=== PATIENT | female | born 1930 | race Two or more races ===

== ENCOUNTER 2016-04-15 18:35 | Inpatient (IN) | payer MEDICARE, MEDICAID ==
[~2016-04-15] VITALS: Ht 165.1 cm; Wt 60.3 kg
[2016-04-15 19:08] LABS: BASOPHILS # (AUTO) 0.4 /CMM (0.0-0.2); BASOPHILS % (AUTO) 2.7 % (0.0-2.0); DIFF TOTAL % 100 %; EOSINOPHILS # (AUTO) 0.1 /CMM (0.0-0.7); EOSINOPHILS % (AUTO) 0.6 % (0.0-6.0); HEMATOCRIT 35 % (33-45); HEMOGLOBIN 11.6 g/dL (11.5-14.8); LYMPHOCYTES # (AUTO) 1.7 /CMM (0.8-4.8); LYMPHOCYTES % (AUTO) 10.9 % (20.0-44.0); MEAN CORPUSCULAR HEMOGLOBIN 27 PG (26.0-33.0); MEAN CORPUSCULAR HGB CONC 33 g/dl (31.0-36.0); MEAN CORPUSCULAR VOLUME 82 fL (82-100); MONOCYTES # (AUTO) 1.6 /CMM (0.1-1.30); NEUTROPHILS # (AUTO) 12.2 /CMM (1.8-8.9); NEUTROPHILS % (AUTO) 75.8 % (43.0-81.0); PLATELET COUNT (AUTO) 372 /CMM (150-450); RED BLOOD CELL COUNT(AUTO) 4.27 MIL/uL (4.0-5.2)
[2016-04-15] MEDS ORDERED: DEXAMETHASONE SOD PHOSPHATE 4 MG/ML VIAL ONE (19:17)
[2016-04-15] MEDS ORDERED: IV SET PRIMARY PUMP SET 1 EA INFUS.SET MC ONE ×2 (19:17→22:23)
[2016-04-15 19:20] LABS: CALCIUM, SERUM 8.5 mg/dL (8.5-10.1); CREATININE 0.6 mg/dL (0.6-1.3); POTASSIUM 4.2 mmol/L (3.5-5.1)
[2016-04-15 19:21] LABS: INR 0.92 (0.87-1.13); PROTHROMBIN TIME 9.7 SECS (9.5-12.7)
[2016-04-15 19:26] LABS: ALBUMIN 2.6 g/dL (3.4-5.0); BILIRUBIN,DIRECT 0.1 mg/dL (0.0-0.2); BILIRUBIN,TOTAL 0.5 mg/dL (0.2-1.0); INDIRECT BILIRUBIN 0.4 mg/dL (0.0-1.1); TOTAL PROTEIN, SERUM 6.9 g/dL (6.4-8.2)
[2016-04-15] MEDS ORDERED: LEVETIRACETAM (500MG) 500 MG in IV NS 0.9% 100 ML IV SCH (19:30)
[2016-04-15] MEDS ORDERED: DEXAMETHASONE SOD PHOSPHATE 10 MG/ML VIAL IV ONE (19:30)
[2016-04-15] MEDS ORDERED: ONDANSETRON HCL/PF 4 MG/2 ML VIAL IVP PRN (20:00)
[2016-04-15] MEDS ORDERED: Z GUARD REMEDY 2 OZ OINT TP PRN (20:00)
[2016-04-15] MEDS ORDERED: HYDROCODONE/APAP 5/325MG 1 EACH TABLET PO PRN (20:00)
[2016-04-15] MEDS ORDERED: MAGNESIUM HYDROXIDE 30 ML UDC PO PRN (20:00)
[2016-04-15] MEDS ORDERED: ZOLPIDEM TARTRATE 5 MG TABLET PO PRN (20:00)
[2016-04-15] MEDS ORDERED: ACETAMINOPHEN 325 MG TABLET PO PRN (20:00)
[2016-04-15] MEDS ORDERED: MAG HYDROX/AL HYDROX/SIMETH 30 ML UDC PO PRN (20:00)
[2016-04-15] MEDS ORDERED: IV SET PRIMARY 1 EA INFUS.SET MC ONE (20:52)
[2016-04-15] MEDS ORDERED: IV NS 0.9% 500 ML IV ONE (20:52)
[2016-04-15 21:29] LABS: ADD UA MICROSCOPIC YES; KETONES,URINE Negative (NEGATIVE); LEUKOCYTE ESTERASE ,URINE Trace (NEGATIVE); PH,URINE 5.5 (5.0-8.0)
[2016-04-15] MEDS ORDERED: IV NS 0.9% 500 ML BAG IV ONE (21:30)
[2016-04-15 21:43] LABS: ADD URINE CULTURE NO; MUCUS,URINE Many /LPF (None Seen)
[2016-04-15] MEDS ORDERED: LEVOFLOXACIN 750 MG /D5W 150ML 150 ML IV ONE ×2 (22:00→22:23)
[2016-04-16] VITALS (32 sets, daily range): BP systolic 100–137; BP diastolic 49–94
[2016-04-16] MEDS ORDERED: LACT1CAP57 GT (00:47)
[2016-04-16] MEDS ORDERED: ONDA8TAB2 GT (00:47)
[2016-04-16] MEDS ORDERED: HYDR-4075 GT (00:47)
[2016-04-16] MEDS ORDERED: CITI500C GT (00:47)
[2016-04-16] MEDS ORDERED: INSU100I4 SQ (00:47)
[2016-04-16] MEDS ORDERED: CLON1PAT7 TD (00:47)
[2016-04-16] MEDS ORDERED: NUT.100029 GT (00:47)
[2016-04-16] MEDS ORDERED: ZINC57OI3 TP (00:47)
[2016-04-16] MEDS ORDERED: CARV12.52 GT (00:47)
[2016-04-16] MEDS ORDERED: DIPH60LI2 GT (00:47)
[2016-04-16] MEDS ORDERED: ASCO500T10 GT (00:47)
[2016-04-16] MEDS ORDERED: PANT40TA4 PO (00:47)
[2016-04-16] MEDS ORDERED: DIPH50CA37 GT (00:47)
[2016-04-16] MEDS ORDERED: ACET650T10 GT (00:47)
[2016-04-16] MEDS ORDERED: DEXT1DRO3 OP (00:47)
[2016-04-16] MEDS ORDERED: VITA42.5 TP (00:47)
[2016-04-16] MEDS ORDERED: OMEG10006 GT (00:47)
[2016-04-16] MEDS ORDERED: MULT-24 GT (00:47)
[2016-04-16] MEDS ORDERED: LORA0.5T GT (00:47)
[2016-04-16] MEDS ORDERED: LEVO25TA9 GT (00:47)
[2016-04-16] MEDS ORDERED: NYST30OI TP (00:47)
[2016-04-16] MEDS ORDERED: ALBU2.5V12 NEB (00:47)
[2016-04-16] MEDS ORDERED: IPRA0.2S9 IH (00:47)
[2016-04-16] MEDS ORDERED: VITA-339 GT (00:47)
[2016-04-16] MEDS ORDERED: VALS160T24 PO (00:47)
[2016-04-16] MEDS ORDERED: LEVE500T6 GT (00:47)
[2016-04-16 04:50] LABS: BASOPHILS # (AUTO) 0.1 /CMM (0.0-0.2); BASOPHILS % (AUTO) 0.8 % (0.0-2.0); DIFF TOTAL % 100 %; HEMATOCRIT 34 % (33-45); HEMOGLOBIN 11.3 g/dL (11.5-14.8); LYMPHOCYTES # (AUTO) 1.4 /CMM (0.8-4.8); LYMPHOCYTES % (AUTO) 9.4 % (20.0-44.0); MEAN CORPUSCULAR HEMOGLOBIN 27 PG (26.0-33.0); MEAN CORPUSCULAR HGB CONC 33 g/dl (31.0-36.0); MEAN CORPUSCULAR VOLUME 82 fL (82-100); MONOCYTES % (AUTO) 7.1 % (2.0-12.0); NEUTROPHILS # (AUTO) 12.1 /CMM (1.8-8.9); NEUTROPHILS % (AUTO) 82.7 % (43.0-81.0); PLATELET COUNT (AUTO) 366 /CMM (150-450); RED BLOOD CELL COUNT(AUTO) 4.14 MIL/uL (4.0-5.2); WHITE BLOOD COUNT (AUTO) 14.6 K/uL (4.3-11.0)
[2016-04-16 05:03] LABS: CALCIUM, SERUM 8.5 mg/dL (8.5-10.1); CREATININE 0.5 mg/dL (0.6-1.3); POTASSIUM 4.2 mmol/L (3.5-5.1)
[2016-04-16] MEDS ORDERED: ZOLPIDEM TARTRATE 5 MG TABLET GT PRN (07:29)
[2016-04-16] MEDS ORDERED: MAG HYDROX/AL HYDROX/SIMETH 30 ML UDC GT PRN (07:30)
[2016-04-16] MEDS ORDERED: PANTOPRAZOLE 40 MG TABLET.DR PO SCH (07:30)
[2016-04-16] MEDS ORDERED: HYDROCODONE/APAP 5/325MG 1 EACH TABLET GT PRN (07:30)
[2016-04-16] MEDS ORDERED: MAGNESIUM HYDROXIDE 30 ML UDC GT PRN (07:30)
[2016-04-16] MEDS ORDERED: DEXTROSE 50%-WATER 50 ML DISP.SYRIN IV PRN (08:30)
[2016-04-16] MEDS ORDERED: hydrALAZINE HCL IV 20 MG VIAL IV PRN (08:30)
[2016-04-16] MEDS ORDERED: ALBUTEROL FS 2.5 MG/0.5 ML VIAL.NEB NEB PRN (09:00)
[2016-04-16] MEDS ORDERED: OMEGA 3 FATTY ACIDS GT SCH (09:00)
[2016-04-16] MEDS ORDERED: hydrALAZINE HCL 10 MG TABLET GT PRN (09:00)
[2016-04-16] MEDS ORDERED: GLYTROL 1,000 ML BAG GT PRN (09:00)
[2016-04-16] MEDS ORDERED: CARVEDILOL 12.5 MG TABLET GT SCH (09:00)
[2016-04-16] MEDS ORDERED: CITICOLINE GT SCH (09:00)
[2016-04-16] MEDS ORDERED: VITAMIN D3 GT SCH (09:00)
[2016-04-16] MEDS ORDERED: LORAZEPAM 0.5 MG TABLET GT PRN (09:00)
[2016-04-16] MEDS ORDERED: VITAMIN K2 GT SCH (09:00)
[2016-04-16] MEDS ORDERED: IV SET PRIMARY PUMP SET 1 EA INFUS.SET MC ONE (09:23)
[2016-04-16] MEDS: GLYTROL 1,000 ML BAG GT PRN (09:26)
[2016-04-16] MEDS: LEVETIRACETAM (500MG) 500 MG in IV NS 0.9% 100 ML IV SCH ×2 (09:26→21:34)
[2016-04-16] MEDS: VALSARTAN 80 MG TABLET GT SCH ×2 (09:39→21:09)
[2016-04-16] MEDS: LABETALOL HCL (100MG) 100 MG TABLET GT SCH ×2 (09:39→21:14)
[2016-04-16] MEDS: MULTIVITAMINS,THERAPEUTIC 1 UDTAB TABLET GT SCH (09:39)
[2016-04-16] MEDS: ASCORBIC ACID 500 MG TABLET GT SCH (09:39)
[2016-04-16] MEDS: LACTOBACILLUS RHAMNOSUS GG 1 EACH CAP.SPRINK GT SCH (09:39)
[2016-04-16] MEDS: LEVOTHYROXINE SODIUM 25 MCG TABLET GT SCH (09:39)
[2016-04-16] MEDS ORDERED: diphenhydrAMINE HCL 50 MG/ML VIAL IV PRN (10:00)
[2016-04-16] MEDS: VITAMINS A AND D 56.7 GM TUBE TP SCH (10:37)
[2016-04-16] MEDS: POLYVINYL ALCOHOL 15 ML BOTTLE EACHEYE SCH (10:37)
[2016-04-16] MEDS: NYSTATIN OINT 100000 UNIT/G 15 GM TUBE TP SCH ×2 (10:37→16:39)
[2016-04-16] MEDS: BLOOD SUGAR DIAGNOSTIC 1 EACH STRIP IN SCH ×3 (12:05→23:46)
[2016-04-16] MEDS: INSULIN REGULAR, HUMAN 100 UNIT/ML 3 ML VIAL SQ PRN ×2 (12:13→23:46)
[2016-04-16] MEDS: ALBUTEROL FS 2.5 MG/0.5 ML VIAL.NEB NEB SCH ×2 (13:30→20:12)
[2016-04-16] MEDS: IPRATROPIUM NEB FS 0.5 MG/2.5 ML AMPUL.NEB IH SCH ×2 (13:30→20:12)
[2016-04-16] MEDS: ACETAMINOPHEN 650 MG/20.3 ML UDC GT PRN (20:18)
[2016-04-17] VITALS (39 sets, daily range): BP systolic 81–173; BP diastolic 40–103
[2016-04-17] MEDS: IPRATROPIUM NEB FS 0.5 MG/2.5 ML AMPUL.NEB IH SCH ×4 (01:42→19:46)
[2016-04-17] MEDS: ALBUTEROL FS 2.5 MG/0.5 ML VIAL.NEB NEB SCH ×4 (01:42→19:46)
[2016-04-17 04:33] LABS: BASOPHILS % (AUTO) 0.1 % (0.0-2.0); DIFF TOTAL % 100 %; EOSINOPHILS % (AUTO) 0.4 % (0.0-6.0); HEMATOCRIT 35 % (33-45); HEMOGLOBIN 11.4 g/dL (11.5-14.8); LYMPHOCYTES # (AUTO) 1.7 /CMM (0.8-4.8); LYMPHOCYTES % (AUTO) 16.4 % (20.0-44.0); MEAN CORPUSCULAR HEMOGLOBIN 27 PG (26.0-33.0); MEAN CORPUSCULAR HGB CONC 33 g/dl (31.0-36.0); MEAN CORPUSCULAR VOLUME 83 fL (82-100); MONOCYTES # (AUTO) 1.4 /CMM (0.1-1.30); MONOCYTES % (AUTO) 13.8 % (2.0-12.0); NEUTROPHILS % (AUTO) 69.3 % (43.0-81.0); PLATELET COUNT (AUTO) 359 /CMM (150-450); RED BLOOD CELL COUNT(AUTO) 4.22 MIL/uL (4.0-5.2); WHITE BLOOD COUNT (AUTO) 10.1 K/uL (4.3-11.0)
[2016-04-17 04:55] LABS: CALCIUM, SERUM 8.4 mg/dL (8.5-10.1); CREATININE 0.5 mg/dL (0.6-1.3); POTASSIUM 3.8 mmol/L (3.5-5.1)
[2016-04-17] MEDS: BLOOD SUGAR DIAGNOSTIC 1 EACH STRIP IN SCH ×3 (05:37→17:21)
[2016-04-17] MEDS: LEVOTHYROXINE SODIUM 25 MCG TABLET GT SCH (05:37)
[2016-04-17] MEDS: INSULIN REGULAR, HUMAN 100 UNIT/ML 3 ML VIAL SQ PRN ×2 (05:37→11:14)
[2016-04-17] MEDS: PANTOPRAZOLE 40 MG/PACK PACK GT SCH (08:04)
[2016-04-17] MEDS: ACETAMINOPHEN 650 MG/20.3 ML UDC GT PRN ×2 (08:04→18:16)
[2016-04-17] MEDS: LABETALOL HCL (100MG) 100 MG TABLET GT SCH ×2 (08:05→21:00)
[2016-04-17] MEDS: MULTIVITAMINS,THERAPEUTIC 1 UDTAB TABLET GT SCH (08:05)
[2016-04-17] MEDS: LACTOBACILLUS RHAMNOSUS GG 1 EACH CAP.SPRINK GT SCH (08:05)
[2016-04-17] MEDS: VALSARTAN 80 MG TABLET GT SCH ×2 (08:05→21:00)
[2016-04-17] MEDS: ASCORBIC ACID 500 MG TABLET GT SCH (08:05)
[2016-04-17] MEDS: POLYVINYL ALCOHOL 15 ML BOTTLE EACHEYE SCH (08:06)
[2016-04-17] MEDS: NYSTATIN OINT 100000 UNIT/G 15 GM TUBE TP SCH ×2 (08:06→17:11)
[2016-04-17] MEDS: VITAMINS A AND D 56.7 GM TUBE TP SCH (08:06)
[2016-04-17] MEDS: LEVETIRACETAM (500MG) 500 MG in IV NS 0.9% 100 ML IV SCH ×2 (10:14→21:24)
[2016-04-17 13:12] LABS: ABG BASE EXCESS 6.6 mmol/L; ABG HCO3 30.5 mmol/L; ABG PH 7.489 (7.350-7.450); ABG PO2 154.3 mmHg (75.0-100.0); ABG TOTAL HEMOGLOBIN 12.2 G/dL (12.0-16.0); ALLEN TEST Pass; AaDO2 47.6 mmHg; O2Hb 97.5 % (94.0-97.0)
[2016-04-17] MEDS: GLYTROL 1,000 ML BAG GT PRN (13:27)
[2016-04-17] MEDS: DOCUSATE SODIUM LIQ 100 MG/10 ML UDC NG SCH (13:27)
[2016-04-17] MEDS ORDERED: IV SET PRIMARY PUMP SET 1 EA INFUS.SET MC ONE (14:11)
[2016-04-17] MEDS ORDERED: IV NS 0.9% 250 ML IV ONE ×2 (14:11→22:06)
[2016-04-17] MEDS ORDERED: SECONDARY IV SET 1 EA INFUS.SET MC ONE (14:11)
[2016-04-17] MEDS: CEFTRIAXONE 1 G in IV D5W 50 ML IV SCH (14:16)
[2016-04-17] MEDS: COD LIVER OIL/ZINC OXIDE 120 GM TUBE TP SCH (17:06)
[2016-04-17] MEDS ORDERED: IV NS 0.9% 1,000 ML ONE (20:32)
[2016-04-17] MEDS: IV NS 0.9% 1,000 ML IV PRN ×2 (20:32→20:35)
[2016-04-17] MEDS ORDERED: BISACODYL SUPP (10 MG) 10 MG/SUPP.RECT SUPP.RECT RC ONE ×2 (21:00→22:33)
[2016-04-17] MEDS ORDERED: IV NS 0.9% 1,000 ML BAG IV PRN (21:00)
[2016-04-17] MEDS ORDERED: NOREPINEPHRINE 16 MG in IV D5W 500 ML IV PRN (21:00)
[2016-04-18] VITALS (41 sets, daily range): BP systolic 56–147; BP diastolic 39–104
[2016-04-18] MEDS: ALBUTEROL FS 2.5 MG/0.5 ML VIAL.NEB NEB SCH ×4 (01:14→19:38)
[2016-04-18] MEDS: IPRATROPIUM NEB FS 0.5 MG/2.5 ML AMPUL.NEB IH SCH ×4 (01:14→19:38)
[2016-04-18] MEDS: BLOOD SUGAR DIAGNOSTIC 1 EACH STRIP IN SCH ×4 (01:20→17:43)
[2016-04-18] MEDS: LEVOTHYROXINE SODIUM 25 MCG TABLET GT SCH (06:41)
[2016-04-18] MEDS: DOCUSATE SODIUM LIQ 100 MG/10 ML UDC NG SCH (08:44)
[2016-04-18] MEDS: NYSTATIN OINT 100000 UNIT/G 15 GM TUBE TP SCH ×2 (08:44→17:11)
[2016-04-18] MEDS: VALSARTAN 80 MG TABLET GT SCH ×2 (08:46→21:19)
[2016-04-18] MEDS: POLYVINYL ALCOHOL 15 ML BOTTLE EACHEYE SCH (08:48)
[2016-04-18] MEDS: COD LIVER OIL/ZINC OXIDE 120 GM TUBE TP SCH (08:50)
[2016-04-18] MEDS: ASCORBIC ACID 500 MG TABLET GT SCH (08:50)
[2016-04-18] MEDS: VITAMINS A AND D 56.7 GM TUBE TP SCH (08:50)
[2016-04-18] MEDS: LABETALOL HCL (100MG) 100 MG TABLET GT SCH ×2 (08:52→21:18)
[2016-04-18] MEDS: LACTOBACILLUS RHAMNOSUS GG 1 EACH CAP.SPRINK GT SCH (08:55)
[2016-04-18] MEDS: MULTIVITAMINS,THERAPEUTIC 1 UDTAB TABLET GT SCH (09:00)
[2016-04-18] MEDS: LEVETIRACETAM (500MG) 500 MG in IV NS 0.9% 100 ML IV SCH ×2 (09:01→21:18)
[2016-04-18] MEDS: PANTOPRAZOLE 40 MG/PACK PACK GT SCH (09:03)
[2016-04-18 10:33] LABS: BASOPHILS % (AUTO) 0.4 % (0.0-2.0); DIFF TOTAL % 100 %; EOSINOPHILS % (AUTO) 0.2 % (0.0-6.0); HEMATOCRIT 34 % (33-45); HEMOGLOBIN 11.3 g/dL (11.5-14.8); LYMPHOCYTES # (AUTO) 1.4 /CMM (0.8-4.8); LYMPHOCYTES % (AUTO) 14.7 % (20.0-44.0); MEAN CORPUSCULAR HEMOGLOBIN 27 PG (26.0-33.0); MEAN CORPUSCULAR HGB CONC 33 g/dl (31.0-36.0); MEAN CORPUSCULAR VOLUME 82 fL (82-100); MONOCYTES # (AUTO) 0.8 /CMM (0.1-1.30); MONOCYTES % (AUTO) 8.2 % (2.0-12.0); NEUTROPHILS # (AUTO) 7.3 /CMM (1.8-8.9); NEUTROPHILS % (AUTO) 76.5 % (43.0-81.0); PLATELET COUNT (AUTO) 401 /CMM (150-450); RED BLOOD CELL COUNT(AUTO) 4.14 MIL/uL (4.0-5.2); WHITE BLOOD COUNT (AUTO) 9.6 K/uL (4.3-11.0)
[2016-04-18 10:34] LABS: CREATININE 0.5 mg/dL (0.6-1.3); POTASSIUM 3.4 mmol/L (3.5-5.1)
[2016-04-18] MEDS: INSULIN REGULAR, HUMAN 100 UNIT/ML 3 ML VIAL SQ PRN (12:22)
[2016-04-18] MEDS: CEFTRIAXONE 1 G in IV D5W 50 ML IV SCH (12:52)
[2016-04-18] MEDS ORDERED: POTASSIUM CHLORIDE 20 MEQ POWDER PACKET GT SCH (15:00)
[2016-04-18] MEDS ORDERED: IV NS 0.9% 250 ML IV ONE (16:31)
[2016-04-18] MEDS ORDERED: IV NS 0.9% 250 ML IV PRN (17:00)
[2016-04-18] MEDS: CEFEPIME 1 GM in IV D5W 50 ML IV SCH (17:12)
[2016-04-18] MEDS: diphenhydrAMINE HCL 50 MG/ML VIAL IV PRN (18:56)
[2016-04-18] MEDS: NYSTATIN (PYXIS) 500,000 UNIT/5 ML ORAL.SUSP PO SCH (19:55)
[2016-04-19] VITALS (39 sets, daily range): BP systolic 101–157; BP diastolic 56–92
[2016-04-19] MEDS: BLOOD SUGAR DIAGNOSTIC 1 EACH STRIP IN SCH ×4 (00:37→17:26)
[2016-04-19] MEDS: ALBUTEROL FS 2.5 MG/0.5 ML VIAL.NEB NEB SCH ×4 (01:33→19:33)
[2016-04-19] MEDS: IPRATROPIUM NEB FS 0.5 MG/2.5 ML AMPUL.NEB IH SCH ×4 (01:33→19:33)
[2016-04-19] MEDS: GLYTROL 1,000 ML BAG GT PRN (03:58)
[2016-04-19 05:13] LABS: CALCIUM, SERUM 7.9 mg/dL (8.5-10.1); CREATININE 0.5 mg/dL (0.6-1.3)
[2016-04-19] MEDS: CEFEPIME 1 GM in IV D5W 50 ML IV SCH ×2 (05:29→16:26)
[2016-04-19] MEDS: LEVOTHYROXINE SODIUM 25 MCG TABLET GT SCH (05:32)
[2016-04-19 05:35] LABS: POTASSIUM 2.6 mmol/L (3.5-5.1)
[2016-04-19] MEDS ORDERED: POTASSIUM CL. PREMIX PERIPHER. 50 ML ONE (05:56)
[2016-04-19] MEDS ORDERED: IV SET PRIMARY PUMP SET 1 EA INFUS.SET MC ONE (05:56)
[2016-04-19] MEDS: POTASSIUM CL. PREMIX PERIPHER. 50 ML IV SCH ×5 (06:04→12:10)
[2016-04-19] MEDS: INSULIN REGULAR, HUMAN 100 UNIT/ML 3 ML VIAL SQ PRN ×2 (06:32→17:25)
[2016-04-19] MEDS: DOCUSATE SODIUM LIQ 100 MG/10 ML UDC NG SCH (08:03)
[2016-04-19] MEDS: VALSARTAN 80 MG TABLET GT SCH ×2 (08:03→21:00)
[2016-04-19] MEDS: LEVETIRACETAM (500MG) 500 MG in IV NS 0.9% 100 ML IV SCH (08:03)
[2016-04-19] MEDS: PANTOPRAZOLE 40 MG/PACK PACK GT SCH (08:03)
[2016-04-19] MEDS: LACTOBACILLUS RHAMNOSUS GG 1 EACH CAP.SPRINK GT SCH (08:03)
[2016-04-19] MEDS: NYSTATIN (PYXIS) 500,000 UNIT/5 ML ORAL.SUSP PO SCH ×3 (08:03→16:26)
[2016-04-19] MEDS: MULTIVITAMINS,THERAPEUTIC 1 UDTAB TABLET GT SCH (08:04)
[2016-04-19] MEDS: LABETALOL HCL (100MG) 100 MG TABLET GT SCH ×2 (08:04→21:00)
[2016-04-19] MEDS: ASCORBIC ACID 500 MG TABLET GT SCH (08:04)
[2016-04-19] MEDS: VITAMINS A AND D 56.7 GM TUBE TP SCH (08:05)
[2016-04-19] MEDS: COD LIVER OIL/ZINC OXIDE 120 GM TUBE TP SCH (08:05)
[2016-04-19] MEDS: POLYVINYL ALCOHOL 15 ML BOTTLE EACHEYE SCH (08:05)
[2016-04-19] MEDS: NYSTATIN OINT 100000 UNIT/G 15 GM TUBE TP SCH ×2 (08:06→16:27)
[2016-04-19] MEDS: ACETAMINOPHEN 650 MG/20.3 ML UDC GT PRN (16:26)
[2016-04-19] MEDS: diphenhydrAMINE HCL 50 MG/ML VIAL IV PRN (18:11)
[2016-04-19] MEDS: LEVETIRACETAM SOL (5 ML) 100 MG/ML UDC GT SCH (21:32)
[2016-04-20] VITALS: BP 150/79
[2016-04-20] MEDS: BLOOD SUGAR DIAGNOSTIC 1 EACH STRIP IN SCH ×3 (00:40→11:50)
[2016-04-20] MEDS: IPRATROPIUM NEB FS 0.5 MG/2.5 ML AMPUL.NEB IH SCH ×2 (01:14→07:16)
[2016-04-20] MEDS: ALBUTEROL FS 2.5 MG/0.5 ML VIAL.NEB NEB SCH ×2 (01:14→07:16)
[2016-04-20 04:00] VITALS: BP 128/70
[2016-04-20] MEDS ORDERED: SECONDARY IV SET 1 EA INFUS.SET MC ONE ×2 (05:24→12:40)
[2016-04-20] MEDS ORDERED: IV SET PRIMARY PUMP SET 1 EA INFUS.SET MC ONE ×2 (05:26→12:41)
[2016-04-20] MEDS: LEVOTHYROXINE SODIUM 25 MCG TABLET GT SCH (05:35)
[2016-04-20] MEDS: CEFEPIME 1 GM in IV D5W 50 ML IV SCH (05:35)
[2016-04-20] MEDS: INSULIN REGULAR, HUMAN 100 UNIT/ML 3 ML VIAL SQ PRN (06:17)
[2016-04-20] MEDS: PANTOPRAZOLE 40 MG/PACK PACK GT SCH ×2 (06:30→09:19)
[2016-04-20 06:55] VITALS: BP 116/67
[2016-04-20 06:59] LABS: CALCIUM, SERUM 8.6 mg/dL (8.5-10.1); CREATININE 0.5 mg/dL (0.6-1.3); POTASSIUM 3.3 mmol/L (3.5-5.1)
[2016-04-20 07:05] LABS: BASOPHILS # (AUTO) 0.1 /CMM (0.0-0.2); BASOPHILS % (AUTO) 0.7 % (0.0-2.0); DIFF TOTAL % 100 %; EOSINOPHILS # (AUTO) 0.3 /CMM (0.0-0.7); EOSINOPHILS % (AUTO) 3.4 % (0.0-6.0); HEMATOCRIT 35 % (33-45); HEMOGLOBIN 11.8 g/dL (11.5-14.8); LYMPHOCYTES # (AUTO) 1.5 /CMM (0.8-4.8); LYMPHOCYTES % (AUTO) 15.5 % (20.0-44.0); MEAN CORPUSCULAR HEMOGLOBIN 27 PG (26.0-33.0); MEAN CORPUSCULAR HGB CONC 33 g/dl (31.0-36.0); MEAN CORPUSCULAR VOLUME 82 fL (82-100); MONOCYTES % (AUTO) 10.2 % (2.0-12.0); NEUTROPHILS % (AUTO) 70.2 % (43.0-81.0); PLATELET COUNT (AUTO) 439 /CMM (150-450); RED BLOOD CELL COUNT(AUTO) 4.33 MIL/uL (4.0-5.2)
[2016-04-20 08:00] VITALS: BP 134/80
[2016-04-20] MEDS: MULTIVITAMINS,THERAPEUTIC 1 UDTAB TABLET GT SCH (09:19)
[2016-04-20] MEDS: LABETALOL HCL (100MG) 100 MG TABLET GT SCH (09:19)
[2016-04-20] MEDS: LEVETIRACETAM SOL (5 ML) 100 MG/ML UDC GT SCH (09:19)
[2016-04-20] MEDS: LACTOBACILLUS RHAMNOSUS GG 1 EACH CAP.SPRINK GT SCH (09:19)
[2016-04-20] MEDS: DOCUSATE SODIUM LIQ 100 MG/10 ML UDC NG SCH (09:19)
[2016-04-20] MEDS: ASCORBIC ACID 500 MG TABLET GT SCH (09:19)
[2016-04-20] MEDS: NYSTATIN (PYXIS) 500,000 UNIT/5 ML ORAL.SUSP PO SCH ×2 (09:19→13:09)
[2016-04-20] MEDS: VALSARTAN 80 MG TABLET GT SCH (09:19)
[2016-04-20] MEDS: VITAMINS A AND D 56.7 GM TUBE TP SCH (09:20)
[2016-04-20] MEDS: POLYVINYL ALCOHOL 15 ML BOTTLE EACHEYE SCH (09:20)
[2016-04-20] MEDS: COD LIVER OIL/ZINC OXIDE 120 GM TUBE TP SCH (09:20)
[2016-04-20] MEDS: NYSTATIN OINT 100000 UNIT/G 15 GM TUBE TP SCH (09:21)
[2016-04-20 11:30] VITALS: BP 121/63
[2016-04-20 12:00] VITALS: BP 141/67
[2016-04-20] MEDS ORDERED: POTASSIUM CHLORIDE 20 MEQ POWDER PACKET GT SCH (13:00)
== END 2016-04-20 13:36 | DRG 64 ==
LOC: ER 18:36 → ICU 23:38 → TELE 04-19 22:38 → MED 04-20 13:08
PROVIDERS: ADMIT Family Medicine; ATTEND Family Medicine
PROC: 05H533Z Insertion of Infusion Device into Right Subclavian Vein, Percutaneous Approach (ICD-10-PCS; principal; 2016-04-16)
DX: I60.7 Nontraumatic subarachnoid hemorrhage from unspecified intracranial artery (principal); G93.6 Cerebral edema; G93.40 Encephalopathy, unspecified; N17.0 Acute kidney failure with tubular necrosis; E44.0 Moderate protein-calorie malnutrition; E87.1 Hypo-osmolality and hyponatremia; J96.11 Chronic respiratory failure with hypoxia; N39.0 Urinary tract infection, site not specified; E11.9 Type 2 diabetes mellitus without complications; Z86.73 Personal history of transient ischemic attack (TIA), and cerebral infarction without residual deficits; Z93.0 Tracheostomy status; Z93.1 Gastrostomy status; Z88.8 Allergy status to other drugs, medicaments and biological substances; Z88.6 Allergy status to analgesic agent; Z91.013 Allergy to seafood; R13.10 Dysphagia, unspecified; B96.89 Other specified bacterial agents as the cause of diseases classified elsewhere; E88.09 Other disorders of plasma-protein metabolism, not elsewhere classified; L89.152 Pressure ulcer of sacral region, stage 2; L89.322 Pressure ulcer of left buttock, stage 2; L89.319 Pressure ulcer of right buttock, unspecified stage; R56.9 Unspecified convulsions
CPT/HCPCS: 31720; 36415; 36600; 70450-TC; 71010-TC; 80048-TC; 80061-TC; 80076-TC; 81000-TC; 82542; 82962-TC; 83605-TC; 83735-TC; 84100-TC; 84132-TC; 85025-TC; 85730-TC; 86850-TC; 87040-TC; 87070-TC; 87081-TC; 87086-TC; 87186-TC; 94640-TC; 94664-TC; 97003-TC; 99082-TC; A4217; A4606; A4623; A6402; J0360; J0692; J0696; J1100; J1200; J1815; J1953; J1956; J2405; J3480; J7030; J7040; J7050; J7060; Z7610

== ENCOUNTER 2016-04-17 | Inpatient (IN) | payer MEDICARE, OTHER ==
[~2016-04-17] VITALS: Ht 165.1 cm; Wt 69.9 kg
[~2016-04-17] MED LIST: ACET650T10 GT; ALBU2.5V13 NEB; ASCO500T10 GT; CARV12.52 GT; CITI500C GT; CLON1PAT7 TD; DEXT1DRO3 OP; DIPH50CA37 GT; DIPH60LI2 GT; HYDR-4075 GT; INSU100I4 SQ; IPRA0.2S9 IH; LACT1CAP57 GT; LEVE500T9 GT; LEVO25TA9 GT; LORA0.5T GT; MULT-24 GT; NUT.100029 GT; NYST30OI TP; OMEG10006 GT; ONDA8TAB12 GT; PANT40TA4 PO; VALS160T24 PO; VITA-339 GT; VITA42.5 TP; ZINC57OI3 TP
[2016-04-19] MEDS ORDERED: [UNRECOGNIZED DRUG - OTHER] GT SCH (08:21)
[2016-04-19] MEDS ORDERED: LEVOTHYROXINE SODIUM 25 MCG TABLET GT SCH (08:21)
[2016-04-19] MEDS ORDERED: SUSTAIN GT SCH (08:21)
[2016-04-19] MEDS ORDERED: ACETAMINOPHEN 650 MG/20.3 ML UDC GT PRN (08:21)
[2016-04-19] MEDS ORDERED: ZINC OXIDE TP SCH (08:21)
[2016-04-19] MEDS ORDERED: VALSARTAN 80 MG TABLET GT SCH (08:21)
[2016-04-19] MEDS ORDERED: ZINC OXIDE 30 GM TUBE TP SCH (08:21)
[2016-04-19] MEDS ORDERED: HYDROGEN PEROXIDE 480 ML BOTTLE TP PRN (08:21)
[2016-04-19] MEDS ORDERED: ONDANSETRON HCL 4 MG/5 ML SOLUTION GT PRN (08:21)
[2016-04-19] MEDS ORDERED: CARVEDILOL 12.5 MG TABLET GT SCH (08:21)
[2016-04-19] MEDS ORDERED: LEVETIRACETAM SOL (5 ML) 100 MG/ML UDC GT SCH (08:21)
[2016-04-19] MEDS ORDERED: LORAZEPAM 0.5 MG TABLET GT PRN (08:21)
[2016-04-19] MEDS ORDERED: DEXTROSE 50%-WATER 50 ML DISP.SYRIN IV PRN (08:21)
[2016-04-19] MEDS ORDERED: GLYTROL 1,000 ML BAG GT PRN (08:21)
[2016-04-19] MEDS ORDERED: ASCORBIC ACID 500 MG TABLET GT SCH (08:21)
[2016-04-19] MEDS ORDERED: DIPHENOXYLATE HCL/ATROP SULF 5 ML UDC GT PRN (08:21)
[2016-04-19] MEDS ORDERED: diphenhydrAMINE HCL ELIX 25 MG/10 ML UDC GT PRN (08:21)
[2016-04-19] MEDS ORDERED: NYSTATIN OINT 100000 UNIT/G 15 GM TUBE TP SCH (08:21)
[2016-04-19] MEDS ORDERED: POLYVINYL ALCOHOL 15 ML BOTTLE EACHEYE SCH (08:21)
[2016-04-19] MEDS ORDERED: TUBERCULIN,PURIF.PROT.DERIV. 5 TU/0.1 ML VIAL ID SCH (08:21)
[2016-04-19] MEDS ORDERED: [UNRECOGNIZED DRUG - OTHER] GT SCH (08:21)
[2016-04-19] MEDS ORDERED: IPRATROPIUM NEB FS 0.5 MG/2.5 ML AMPUL.NEB IH PRN (08:21)
[2016-04-19] MEDS ORDERED: IPRATROPIUM NEB FS 0.5 MG/2.5 ML AMPUL.NEB IH SCH (08:21)
[2016-04-19] MEDS ORDERED: BLOOD SUGAR DIAGNOSTIC 1 EACH STRIP IN SCH (08:21)
[2016-04-19] MEDS ORDERED: ALBUTEROL FS 2.5 MG/0.5 ML VIAL.NEB NEB PRN (08:21)
[2016-04-19] MEDS ORDERED: INSULIN ASPART HUMALOG/NOVOLOG 100 UNIT/ML CARTRIDGE SQ PRN (08:21)
[2016-04-19] MEDS ORDERED: VITAMINS A AND D 56.7 GM TUBE TP SCH (08:21)
[2016-04-19] MEDS ORDERED: ZINC OXIDE TP PRN (08:21)
[2016-04-19] MEDS ORDERED: HYDROGEN PEROXIDE 480 ML BOTTLE TP SCH (08:21)
[2016-04-19] MEDS ORDERED: MULTIVITAMINS,THERAGRAN 1 UDTAB TABLET GT SCH (08:21)
[2016-04-19] MEDS ORDERED: HYDROGEL DRESSING 90 GM TUBE TP SCH (08:21)
[2016-04-19] MEDS ORDERED: ALBUTEROL FS 2.5 MG/0.5 ML VIAL.NEB NEB SCH (08:21)
[2016-04-19] MEDS ORDERED: [UNRECOGNIZED DRUG - OTHER] GT SCH (08:21)
[2016-04-19] MEDS ORDERED: LACTOBACILLUS RHAMNOSUS GG 1 EACH CAP.SPRINK GT SCH (08:21)
[2016-04-19] MEDS ORDERED: OMEGA GT SCH (08:21)
[2016-04-19] MEDS ORDERED: CITICOLINE GT SCH (08:21)
[2016-04-19] MEDS ORDERED: PANTOPRAZOLE 40 MG/PACK PACK GT SCH (08:21)
[2016-04-19] MEDS ORDERED: hydrALAZINE HCL 10 MG TABLET GT PRN (08:21)
[2016-04-19] MEDS ORDERED: CLONIDINE HCL 0.2MG/24H PTWK 1 EA PATCH TD SCH (08:21)
[2016-04-19] MEDS ORDERED: TETRAHYDROZOLINE HCL BOTTLE EACHEYE PRN (08:21)
[2016-04-20] MEDS ORDERED: CLONIDINE HCL 0.2MG/24H PTWK 1 EA PATCH TD SCH (09:00)
--- NOTE | 2016-04-20 15:30 | NUR ---
Resident readmitted to [facility] subacute with the following dx of Respiratory failure, CVA, multiple intracranial hemorrhage, DM, hypothyroidism, Anemia, HTN, Hx. of seizure under the services of Dr. Ramirez. Body checked done, noted with Stage 2 in the sacral area measuring 3.5x 5.5., Midline present in the R upper arm, flushed, patent, no s/s of infiltration. HL G 20 in the R hand removed, not patent. Patient came in with F/C, said OK to discontinue, removed patient tolerated well, will monitor urine output. Verified admission orders with Dr. Ramirez. Family notified of readmission by [facility] c/o Reyna. Marielena Jeong, daughter at the bedside aware of the admission. She requested that all non formulary medication the patient is receiving previously be resumed. Dr. Ramirez agreed. All orders noted and carried out. Faxed all orders to [facility] and [facility] pharmacy.
[2016-04-20 15:42] VITALS: BP 137/75
[2016-04-20] MEDS ORDERED: MULTIVITAMINS,THERAGRAN 1 UDTAB TABLET GT SCH (19:35)
[2016-04-20] MEDS ORDERED: PANTOPRAZOLE 40 MG/PACK PACK GT SCH (19:35)
[2016-04-20] MEDS ORDERED: LEVETIRACETAM SOL (5 ML) 100 MG/ML UDC GT SCH (19:35)
[2016-04-20] MEDS ORDERED: LEVOTHYROXINE SODIUM 25 MCG TABLET GT SCH (19:35)
[2016-04-20] MEDS ORDERED: ALBUTEROL FS 2.5 MG/0.5 ML VIAL.NEB NEB PRN (19:35)
[2016-04-20] MEDS ORDERED: LORAZEPAM 0.5 MG TABLET GT PRN (19:35)
[2016-04-20] MEDS ORDERED: LACTOBACILLUS RHAMNOSUS GG 1 EACH CAP.SPRINK GT SCH (19:35)
[2016-04-20] MEDS ORDERED: VALSARTAN 80 MG TABLET GT SCH (19:35)
[2016-04-20] MEDS ORDERED: ASCORBIC ACID 500 MG TABLET GT SCH (19:35)
[2016-04-20 19:57] VITALS: BP 120/70
[2016-04-20] MEDS ORDERED: MAGNESIUM HYDROXIDE 30 ML UDC GT PRN (20:00)
[2016-04-20] MEDS ORDERED: HYDROCODONE/APAP 5/325MG 1 EACH TABLET GT PRN (20:00)
[2016-04-20] MEDS ORDERED: MAG HYDROX/AL HYDROX/SIMETH 30 ML UDC GT PRN (20:00)
[2016-04-20] MEDS ORDERED: ACETAMINOPHEN 650 MG/20.3 ML UDC GT PRN (20:00)
[2016-04-20] MEDS ORDERED: INSULIN REGULAR, HUMAN 100 UNIT/ML 3 ML VIAL SQ PRN (20:00)
[2016-04-20] MEDS ORDERED: ZOLPIDEM TARTRATE 5 MG TABLET GT PRN (20:00)
[2016-04-20] MEDS ORDERED: DEXTROSE 50%-WATER 50 ML DISP.SYRIN IV PRN (20:30)
[2016-04-20] MEDS: VALSARTAN 80 MG TABLET GT SCH (20:56)
[2016-04-20] MEDS: LEVETIRACETAM SOL (5 ML) 100 MG/ML UDC GT SCH (20:57)
[2016-04-20] MEDS: LABETALOL HCL (100MG) 100 MG TABLET GT SCH (20:57)
[2016-04-20] MEDS: CEFEPIME 1 GM in IV D5W 50 ML IV SCH (21:00)
[2016-04-21 00:22] VITALS: BP 128/70
[2016-04-21] MEDS: ALBUTEROL FS 2.5 MG/0.5 ML VIAL.NEB NEB SCH ×4 (01:40→19:37)
[2016-04-21] MEDS: IPRATROPIUM NEB FS 0.5 MG/2.5 ML AMPUL.NEB IH SCH ×4 (01:40→19:37)
[2016-04-21 04:39] VITALS: BP 127/67
[2016-04-21] MEDS: LEVOTHYROXINE SODIUM 25 MCG TABLET GT SCH (05:28)
[2016-04-21] MEDS: PANTOPRAZOLE 40 MG/PACK PACK GT SCH (05:28)
--- NOTE | 2016-04-21 05:53 | NUR ---
Patient stable ,no distress noted.Cefipime given as ordered.Right upper arm midline patent.Vital signs check q 4 hrs within normal.Will continue to monitor.All needs attended.
[2016-04-21] MEDS: INSULIN REGULAR, HUMAN 100 UNIT/ML 3 ML VIAL SQ SCH ×2 (06:00→12:00)
[2016-04-21] MEDS: BLOOD SUGAR DIAGNOSTIC 1 EACH STRIP IN SCH ×3 (06:18→17:33)
[2016-04-21 07:39] VITALS: BP 159/71
[2016-04-21] MEDS: POLYVINYL ALCOHOL 15 ML BOTTLE EACHEYE SCH (08:40)
[2016-04-21] MEDS: DOCUSATE SODIUM LIQ 100 MG/10 ML UDC GT SCH (08:40)
[2016-04-21] MEDS: LACTOBACILLUS RHAMNOSUS GG 1 EACH CAP.SPRINK GT SCH (08:41)
[2016-04-21] MEDS: VALSARTAN 80 MG TABLET GT SCH ×2 (08:41→21:24)
[2016-04-21] MEDS: ASCORBIC ACID 500 MG TABLET GT SCH (08:42)
[2016-04-21] MEDS: LABETALOL HCL (100MG) 100 MG TABLET GT SCH ×2 (08:42→21:24)
[2016-04-21] MEDS: LEVETIRACETAM SOL (5 ML) 100 MG/ML UDC GT SCH ×2 (08:42→21:24)
[2016-04-21] MEDS: MULTIVITAMINS,THERAGRAN 1 UDTAB TABLET GT SCH (08:42)
[2016-04-21] MEDS: NYSTATIN (PYXIS) 500,000 UNIT/5 ML ORAL.SUSP PO SCH ×3 (09:00→17:00)
--- NOTE | 2016-04-21 09:10 | NUR ---
Clarification of order obtained from Dr. Ramirez regarding Labetalol and Cefepime meds. Orders noted and carried out.
[2016-04-21] MEDS: CEFEPIME 1 GM in IV D5W 50 ML IV SCH ×2 (09:14→20:56)
[2016-04-21] MEDS ORDERED: HYDROGEN PEROXIDE 480 ML BOTTLE TP PRN (10:30)
[2016-04-21] MEDS ORDERED: ZINC OXIDE TP PRN (10:30)
[2016-04-21] MEDS: [UNRECOGNIZED DRUG - OTHER] GT SCH (11:42)
[2016-04-21] MEDS: SUSTAIN GT SCH (11:42)
[2016-04-21] MEDS: [UNRECOGNIZED DRUG - OTHER] GT SCH (11:43)
[2016-04-21] MEDS: ZINC OXIDE TP SCH (12:00)
[2016-04-21] MEDS: VITAMINS A AND D 56.7 GM TUBE TP SCH ×2 (12:00→21:24)
[2016-04-21] MEDS: HYDROGEL DRESSING 90 GM TUBE TP SCH ×2 (12:00→21:24)
[2016-04-21] MEDS: OMEGA GT SCH ×2 (13:00→17:00)
[2016-04-21] MEDS: CITICOLINE GT SCH ×2 (13:00→17:11)
--- NOTE | 2016-04-21 13:30 | NUR ---
PATIENT FROM [facility] SUBACUTE UNIT EXT 4550. PATIENT IS NONVERBAL, OBTUNDED, TOTAL DEPENDENT WITH TRACH AND PEG. PLAN TO TRANSFER BACK TO [facility] SUBACUTE EXT 4550 ONCE MEDICALLY CLEARED.
[2016-04-21] MEDS: [UNRECOGNIZED DRUG - OTHER] GT SCH (17:33)
[2016-04-21] MEDS: hydrALAZINE HCL 10 MG TABLET GT PRN (17:35)
--- NOTE | 2016-04-21 20:10 | NUR ---
Pt seen by Becca Smith MUSIC CRITIC no new order.
[2016-04-21 20:34] VITALS: BP 137/74
[2016-04-21 21:01] VITALS: BP 137/74
[2016-04-21] MEDS: HYDROGEN PEROXIDE 480 ML BOTTLE TP SCH (21:24)
[2016-04-22] VITALS (10 sets, daily range): BP systolic 125–144; BP diastolic 60–72
[2016-04-22] MEDS: BLOOD SUGAR DIAGNOSTIC 1 EACH STRIP IN SCH ×4 (00:21→17:45)
[2016-04-22] MEDS: GLYTROL 1,000 ML BAG GT PRN (00:28)
[2016-04-22] MEDS: ALBUTEROL FS 2.5 MG/0.5 ML VIAL.NEB NEB SCH ×4 (01:44→19:23)
[2016-04-22] MEDS: IPRATROPIUM NEB FS 0.5 MG/2.5 ML AMPUL.NEB IH SCH ×4 (01:44→19:23)
[2016-04-22] MEDS: LEVOTHYROXINE SODIUM 25 MCG TABLET GT SCH (05:26)
[2016-04-22] MEDS: PANTOPRAZOLE 40 MG/PACK PACK GT SCH (05:26)
[2016-04-22] MEDS: MULTIVITAMINS,THERAGRAN 1 UDTAB TABLET GT SCH (08:47)
[2016-04-22] MEDS: LEVETIRACETAM SOL (5 ML) 100 MG/ML UDC GT SCH ×2 (08:47→21:11)
[2016-04-22] MEDS: [UNRECOGNIZED DRUG - OTHER] GT SCH (08:47)
[2016-04-22] MEDS: VALSARTAN 80 MG TABLET GT SCH ×2 (08:47→21:11)
[2016-04-22] MEDS: DOCUSATE SODIUM LIQ 100 MG/10 ML UDC GT SCH (08:47)
[2016-04-22] MEDS: POLYVINYL ALCOHOL 15 ML BOTTLE EACHEYE SCH (08:47)
[2016-04-22] MEDS: [UNRECOGNIZED DRUG - OTHER] GT SCH (08:47)
[2016-04-22] MEDS: LACTOBACILLUS RHAMNOSUS GG 1 EACH CAP.SPRINK GT SCH (08:47)
[2016-04-22] MEDS: SUSTAIN GT SCH (08:47)
[2016-04-22] MEDS: [UNRECOGNIZED DRUG - OTHER] GT SCH ×2 (08:47→16:25)
[2016-04-22] MEDS: CITICOLINE GT SCH ×3 (08:47→16:25)
[2016-04-22] MEDS: OMEGA GT SCH ×3 (08:47→16:25)
[2016-04-22] MEDS: ASCORBIC ACID 500 MG TABLET GT SCH (08:48)
[2016-04-22] MEDS: LABETALOL HCL (100MG) 100 MG TABLET GT SCH ×2 (08:48→21:12)
[2016-04-22] MEDS: hydrALAZINE HCL 10 MG TABLET GT PRN (09:02)
[2016-04-22] MEDS: NYSTATIN (PYXIS) 500,000 UNIT/5 ML ORAL.SUSP PO SCH ×3 (09:02→16:25)
[2016-04-22] MEDS: HYDROGEL DRESSING 90 GM TUBE TP SCH ×2 (09:02→21:12)
[2016-04-22] MEDS: HYDROGEN PEROXIDE 480 ML BOTTLE TP SCH ×2 (09:03→21:12)
[2016-04-22] MEDS: VITAMINS A AND D 56.7 GM TUBE TP SCH ×2 (09:03→21:12)
[2016-04-22] MEDS: ZINC OXIDE TP SCH (09:03)
[2016-04-22] MEDS: CEFEPIME 1 GM in IV D5W 50 ML IV SCH ×2 (09:50→21:28)
[2016-04-23] VITALS (10 sets, daily range): BP systolic 123–155; BP diastolic 45–91
[2016-04-23] MEDS: BLOOD SUGAR DIAGNOSTIC 1 EACH STRIP IN SCH ×4 (00:42→17:32)
[2016-04-23] MEDS: IPRATROPIUM NEB FS 0.5 MG/2.5 ML AMPUL.NEB IH SCH ×4 (02:08→20:03)
[2016-04-23] MEDS: ALBUTEROL FS 2.5 MG/0.5 ML VIAL.NEB NEB SCH ×4 (02:08→20:03)
[2016-04-23] MEDS: PANTOPRAZOLE 40 MG/PACK PACK GT SCH (05:30)
[2016-04-23] MEDS: LEVOTHYROXINE SODIUM 25 MCG TABLET GT SCH (05:30)
[2016-04-23] MEDS: POLYVINYL ALCOHOL 15 ML BOTTLE EACHEYE SCH (08:19)
[2016-04-23] MEDS: DOCUSATE SODIUM LIQ 100 MG/10 ML UDC GT SCH (08:19)
[2016-04-23] MEDS: VALSARTAN 80 MG TABLET GT SCH ×2 (08:20→21:00)
[2016-04-23] MEDS: LACTOBACILLUS RHAMNOSUS GG 1 EACH CAP.SPRINK GT SCH (08:20)
[2016-04-23] MEDS: [UNRECOGNIZED DRUG - OTHER] GT SCH ×3 (08:21→17:00)
[2016-04-23] MEDS: [UNRECOGNIZED DRUG - OTHER] GT SCH (08:22)
[2016-04-23] MEDS: CITICOLINE GT SCH ×3 (08:22→17:06)
[2016-04-23] MEDS: SUSTAIN GT SCH (08:22)
[2016-04-23] MEDS: [UNRECOGNIZED DRUG - OTHER] GT SCH (08:23)
[2016-04-23] MEDS: LEVETIRACETAM SOL (5 ML) 100 MG/ML UDC GT SCH ×2 (08:23→21:09)
[2016-04-23] MEDS: OMEGA GT SCH ×3 (08:23→17:06)
[2016-04-23] MEDS: MULTIVITAMINS,THERAGRAN 1 UDTAB TABLET GT SCH (08:24)
[2016-04-23] MEDS: LABETALOL HCL (100MG) 100 MG TABLET GT SCH ×2 (08:24→21:15)
[2016-04-23] MEDS: ASCORBIC ACID 500 MG TABLET GT SCH (08:25)
[2016-04-23] MEDS: NYSTATIN (PYXIS) 500,000 UNIT/5 ML ORAL.SUSP PO SCH ×3 (08:25→17:06)
[2016-04-23] MEDS: HYDROGEL DRESSING 90 GM TUBE TP SCH ×2 (08:26→21:16)
[2016-04-23] MEDS: HYDROGEN PEROXIDE 480 ML BOTTLE TP SCH ×2 (08:26→21:16)
[2016-04-23] MEDS: ZINC OXIDE TP SCH (08:26)
[2016-04-23] MEDS: VITAMINS A AND D 56.7 GM TUBE TP SCH ×2 (08:27→21:16)
--- NOTE | 2016-04-23 08:29 | NUR ---
Brain octane liquid mediation not available. Family provides the medicine. Family is aware that medicine is not available
[2016-04-23] MEDS: CEFEPIME 1 GM in IV D5W 50 ML IV SCH ×2 (09:00→21:00)
[2016-04-23] MEDS: hydrALAZINE HCL 10 MG TABLET GT PRN (11:11)
[2016-04-23] MEDS: ONDANSETRON 4 MG TAB.RAPDIS GT PRN (11:11)
--- NOTE | 2016-04-23 11:17 | NUR ---
Resident vomited in moderate amount of yellow emesis, suctioned trach and mouth, no signs of aspiration. B/P 155/91, HR 92. PRN Hydralazine HCL, 10mg for HTN and Zofran 4 mg for n/v given. Will continue to observe, meanwhile notified Reyna Carlos, resident's daughter (RP) of the vomiting episode. She stated that her mother could be having another hemorrhage. She wants a physician to see the resident and if they can do another CT scan. Informed her that MD will be notified.
--- NOTE | 2016-04-23 11:40 | NUR ---
Spoke with Dr. Ramirez reported resident's episode of vomiting, current B/P of 155/91. Made him aware that per conversation with resident's responsible democrat, she would like a physician to see resident and probably do a CT scan as she suspect that resident had another episode of intracranila bleeding. After reviewing her medications, Dr. Ramirez increased Labetalol to 200 mg. Q 12 hours. He did not order any CT scan at this time, stated that he will see the resident today and decide from there. Daughter Reyna notified of the new order and that MD will come to see patient later on today. Appreciated the call, stated " I am thinking of changing her code status to DNR, because you guys will end up coding her if this intracranial bleeding continues." Resident's daughter Maddy and Jonathan at the bedside at this time.
--- NOTE | 2016-04-23 11:50 | NUR ---
Recheck B/P 126/63, 75, O2 sat 100% in no s/s of respiratory distress, RR 18, regular unlabored. RIVET FLUNKY changed resident together with her daughter Maddy after vomiting episode. Kept her comfortable.
[2016-04-23] MEDS ORDERED: LABETALOL HCL (100MG) 100 MG TABLET GT ONE (12:00)
--- NOTE | 2016-04-23 13:02 | NUR ---
Notified to Dr. Ramirez that resident's responsible libertarian Reyna would like to speak with him. MD stated that he will come up in 30 min., family notified.
--- NOTE | 2016-04-23 14:02 | NUR ---
Dr. Ramirez met with resident's daughter Reyna and her . After a lengthy conversation with family, Dr. Ramirez gave an order with this nurse to arrange for a meeting with the other three siblings. Spoke with Jonathan regarding the meeting and left message to Yossi. Awaiting confirmation with resident's daughter regarding the meeting. said he will be in the hospital tomorrow and Monday. No other new order given, CT scan will not be done. He was also made aware that Reyna and did not want us to give the extra dose of Labetalol since B/P went down already. MD Ramirez said that as long as her blood pressure stays below 140.
--- NOTE | 2016-04-23 16:20 | NUR ---
Daughter Marielena Jeong confirmed that she and her other two siblings (Marah & Maddy) will be in tomorrow at [address] meet [address] Dr. Ramirez. MD notified. Also obtain an order for PRN Imodium for loose stool. All orders noted and carried out.
[2016-04-23] MEDS ORDERED: LOPERAMIDE HCL UDC(2 MG/10 ML) 2 MG/10 ML UDC PO PRN (18:00)
[2016-04-23] MEDS: GLYTROL 1,000 ML BAG GT PRN (22:20)
[2016-04-24] VITALS (7 sets, daily range): BP systolic 133–159; BP diastolic 60–81
[2016-04-24] MEDS: BLOOD SUGAR DIAGNOSTIC 1 EACH STRIP IN SCH ×4 (00:19→17:35)
[2016-04-24] MEDS: INSULIN REGULAR, HUMAN 100 UNIT/ML 3 ML VIAL SQ PRN ×2 (00:20→05:49)
[2016-04-24] MEDS: ALBUTEROL FS 2.5 MG/0.5 ML VIAL.NEB NEB SCH ×4 (01:16→19:49)
[2016-04-24] MEDS: IPRATROPIUM NEB FS 0.5 MG/2.5 ML AMPUL.NEB IH SCH ×4 (01:16→19:49)
[2016-04-24] MEDS: LEVOTHYROXINE SODIUM 25 MCG TABLET GT SCH (05:48)
[2016-04-24] MEDS: PANTOPRAZOLE 40 MG/PACK PACK GT SCH (05:48)
[2016-04-24] MEDS: POLYVINYL ALCOHOL 15 ML BOTTLE EACHEYE SCH (08:42)
[2016-04-24] MEDS: DOCUSATE SODIUM LIQ 100 MG/10 ML UDC GT SCH (08:42)
[2016-04-24] MEDS: LACTOBACILLUS RHAMNOSUS GG 1 EACH CAP.SPRINK GT SCH (08:42)
[2016-04-24] MEDS: VALSARTAN 80 MG TABLET GT SCH ×2 (08:43→20:24)
[2016-04-24] MEDS: [UNRECOGNIZED DRUG - OTHER] GT SCH ×2 (08:43→16:49)
[2016-04-24] MEDS: OMEGA GT SCH ×3 (08:43→16:50)
[2016-04-24] MEDS: SUSTAIN GT SCH (08:43)
[2016-04-24] MEDS: [UNRECOGNIZED DRUG - OTHER] GT SCH (08:43)
[2016-04-24] MEDS: MULTIVITAMINS,THERAGRAN 1 UDTAB TABLET GT SCH (08:43)
[2016-04-24] MEDS: [UNRECOGNIZED DRUG - OTHER] GT SCH (08:43)
[2016-04-24] MEDS: CITICOLINE GT SCH ×3 (08:43→16:49)
[2016-04-24] MEDS: LEVETIRACETAM SOL (5 ML) 100 MG/ML UDC GT SCH ×2 (08:43→20:24)
[2016-04-24] MEDS: ASCORBIC ACID 500 MG TABLET GT SCH (08:44)
[2016-04-24] MEDS: LABETALOL HCL (100MG) 100 MG TABLET GT SCH ×2 (08:44→20:24)
[2016-04-24] MEDS: NYSTATIN (PYXIS) 500,000 UNIT/5 ML ORAL.SUSP PO SCH ×3 (08:45→16:50)
[2016-04-24] MEDS: HYDROGEL DRESSING 90 GM TUBE TP SCH ×2 (09:00→20:25)
[2016-04-24] MEDS: ZINC OXIDE TP SCH (09:00)
[2016-04-24] MEDS: HYDROGEN PEROXIDE 480 ML BOTTLE TP SCH ×2 (09:00→20:25)
[2016-04-24] MEDS: VITAMINS A AND D 56.7 GM TUBE TP SCH ×2 (09:00→20:25)
[2016-04-24] MEDS: CEFEPIME 1 GM in IV D5W 50 ML IV SCH ×2 (09:06→21:00)
--- NOTE | 2016-04-24 14:00 | NUR ---
Dr. Ramirez met with 3 daughters and had a conversation. Dr. Ramirez notified the nurse that the patient will be DNR and he will update in the computer by himself. He will also review the IV ATB, he is thinking probably the IV ATB that she receiving right now is making her diarrhoea and nausea.
--- NOTE | 2016-04-24 15:01 | NUR ---
Daughter Reyna notified and informed her that Dr. Ramirez decided to change the code status to DNR . Reyna agreed with the decision.
[2016-04-24] MEDS: GLYTROL 1,000 ML BAG GT PRN (21:49)
[2016-04-25] VITALS (8 sets, daily range): BP systolic 122–144; BP diastolic 63–80
[2016-04-25] MEDS: BLOOD SUGAR DIAGNOSTIC 1 EACH STRIP IN SCH ×4 (00:02→17:15)
[2016-04-25] MEDS: ALBUTEROL FS 2.5 MG/0.5 ML VIAL.NEB NEB SCH ×4 (01:17→19:30)
[2016-04-25] MEDS: IPRATROPIUM NEB FS 0.5 MG/2.5 ML AMPUL.NEB IH SCH ×4 (01:17→19:30)
[2016-04-25] MEDS: LEVOTHYROXINE SODIUM 25 MCG TABLET GT SCH (05:37)
[2016-04-25] MEDS: PANTOPRAZOLE 40 MG/PACK PACK GT SCH (05:37)
[2016-04-25] MEDS: CEFEPIME 1 GM in IV D5W 50 ML IV SCH (08:51)
[2016-04-25] MEDS: [UNRECOGNIZED DRUG - OTHER] GT SCH ×2 (09:00→16:37)
--- NOTE | 2016-04-25 09:24 | NUR ---
Resident was seen by Dr. Fany ANN for a dental assessment. He stated that resident's teeth are in good condition and that there are no recommended treatments at this time.
[2016-04-25] MEDS: LACTOBACILLUS RHAMNOSUS GG 1 EACH CAP.SPRINK GT SCH (09:48)
[2016-04-25] MEDS: POLYVINYL ALCOHOL 15 ML BOTTLE EACHEYE SCH (09:48)
[2016-04-25] MEDS: DOCUSATE SODIUM LIQ 100 MG/10 ML UDC GT SCH (09:48)
[2016-04-25] MEDS: SUSTAIN GT SCH (09:49)
[2016-04-25] MEDS: CITICOLINE GT SCH ×3 (09:49→16:37)
[2016-04-25] MEDS: VALSARTAN 80 MG TABLET GT SCH ×2 (09:49→21:21)
[2016-04-25] MEDS: HYDROGEL DRESSING 90 GM TUBE TP SCH ×2 (09:50→21:21)
[2016-04-25] MEDS: [UNRECOGNIZED DRUG - OTHER] GT SCH (09:50)
[2016-04-25] MEDS: OMEGA GT SCH ×3 (09:50→16:38)
[2016-04-25] MEDS: ASCORBIC ACID 500 MG TABLET GT SCH (09:50)
[2016-04-25] MEDS: LABETALOL HCL (100MG) 100 MG TABLET GT SCH ×2 (09:50→21:21)
[2016-04-25] MEDS: MULTIVITAMINS,THERAGRAN 1 UDTAB TABLET GT SCH (09:50)
[2016-04-25] MEDS: NYSTATIN (PYXIS) 500,000 UNIT/5 ML ORAL.SUSP PO SCH ×3 (09:50→16:38)
[2016-04-25] MEDS: LEVETIRACETAM SOL (5 ML) 100 MG/ML UDC GT SCH ×2 (09:50→21:21)
[2016-04-25] MEDS: [UNRECOGNIZED DRUG - OTHER] GT SCH (09:50)
[2016-04-25] MEDS: HYDROGEN PEROXIDE 480 ML BOTTLE TP SCH ×2 (09:51→21:21)
[2016-04-25] MEDS: VITAMINS A AND D 56.7 GM TUBE TP SCH ×2 (09:51→21:21)
[2016-04-25] MEDS: ZINC OXIDE TP SCH (09:51)
--- NOTE | 2016-04-25 15:21 | NUR ---
SW was informed by charge nurse that patient's code status changed to DNR. Per Reyna, she works everyday until 5pm and is not able to come in and sign the paperwork earlier. SW notified her that she can leave Documentation of Preferred intensity of care with charge nurse. SW notified charge nurse and placed paperwork in endorsement folder.
--- NOTE | 2016-04-25 17:00 | NUR ---
Notified Dr. Ramirez that software solutions architect recommended to increase tube feeding Glytrol to 80 mL/hr x [address] Ramirez approved it. He also ordered to DC Cefepime. He said it might be the cause of the pt's vomiting and diarrhea.
[2016-04-26] VITALS (9 sets, daily range): BP systolic 128–161; BP diastolic 59–89
[2016-04-26] MEDS: IPRATROPIUM NEB FS 0.5 MG/2.5 ML AMPUL.NEB IH SCH ×5 (01:18→20:25)
[2016-04-26] MEDS: ALBUTEROL FS 2.5 MG/0.5 ML VIAL.NEB NEB SCH ×5 (01:18→20:25)
[2016-04-26] MEDS: BLOOD SUGAR DIAGNOSTIC 1 EACH STRIP IN SCH ×4 (05:20→17:47)
[2016-04-26] MEDS: PANTOPRAZOLE 40 MG/PACK PACK GT SCH (05:20)
[2016-04-26] MEDS: LEVOTHYROXINE SODIUM 25 MCG TABLET GT SCH (05:20)
[2016-04-26] MEDS: HYDROGEN PEROXIDE 480 ML BOTTLE TP SCH ×2 (09:00→21:23)
[2016-04-26] MEDS: ZINC OXIDE TP SCH (09:00)
[2016-04-26] MEDS: [UNRECOGNIZED DRUG - OTHER] GT SCH (09:00)
[2016-04-26] MEDS: HYDROGEL DRESSING 90 GM TUBE TP SCH ×2 (09:00→21:22)
[2016-04-26] MEDS: VITAMINS A AND D 56.7 GM TUBE TP SCH ×2 (09:00→21:23)
[2016-04-26] MEDS: [UNRECOGNIZED DRUG - OTHER] GT SCH ×2 (09:00→16:40)
[2016-04-26] MEDS: LACTOBACILLUS RHAMNOSUS GG 1 EACH CAP.SPRINK GT SCH (09:27)
[2016-04-26] MEDS: DOCUSATE SODIUM LIQ 100 MG/10 ML UDC GT SCH (09:27)
[2016-04-26] MEDS: POLYVINYL ALCOHOL 15 ML BOTTLE EACHEYE SCH (09:27)
[2016-04-26] MEDS: SUSTAIN GT SCH (09:28)
[2016-04-26] MEDS: VALSARTAN 80 MG TABLET GT SCH ×2 (09:28→21:22)
[2016-04-26] MEDS: CITICOLINE GT SCH ×3 (09:29→16:40)
[2016-04-26] MEDS: ASCORBIC ACID 500 MG TABLET GT SCH (09:29)
[2016-04-26] MEDS: NYSTATIN (PYXIS) 500,000 UNIT/5 ML ORAL.SUSP PO SCH ×3 (09:29→16:40)
[2016-04-26] MEDS: LABETALOL HCL (100MG) 100 MG TABLET GT SCH ×2 (09:29→21:22)
[2016-04-26] MEDS: LEVETIRACETAM SOL (5 ML) 100 MG/ML UDC GT SCH ×2 (09:29→21:22)
[2016-04-26] MEDS: OMEGA GT SCH ×3 (09:29→16:40)
[2016-04-26] MEDS: [UNRECOGNIZED DRUG - OTHER] GT SCH (09:29)
[2016-04-26] MEDS: MULTIVITAMINS,THERAGRAN 1 UDTAB TABLET GT SCH (09:29)
--- NOTE | 2016-04-26 10:31 | NUR ---
Pt vomited a moderate amount of yellowish emesis, same color as her medications. Zofran 4 mg was given as ordered PRN. BP 140/[address] Ramirez.
[2016-04-26] MEDS: hydrALAZINE HCL 10 MG TABLET GT PRN ×2 (11:27→15:55)
--- NOTE | 2016-04-26 13:25 | NUR ---
Notified Dr. Ramirez that pt's BP 154/86 HR 80, Hydralazine PRN was given at 1100 due to BP 161/77. Dr. Ramirez asked if Labetalol was given. Notified him that it was given earlier this morning, then pt vomited 30 minutes after it was given. No new order.
[2016-04-26] MEDS ORDERED: diphenhydrAMINE HCL ELIX 25 MG/10 ML UDC GT PRN (15:30)
--- NOTE | 2016-04-26 17:35 | NUR ---
Called pt's daughter Reyna and notified her that pt had an episode of vomiting this morning, BP was 140/74 HR 80. Also notified her that Hydralazine PRN was given earlier, Dr. Ramirez is aware of change in condition but there are no new orders. Pt was awake during the vomiting episode. Reyna asked if pt was tracking. Informed her that pt's eyes were open but did not track. She said pt does not normally track but she just wanted to know if there is an instance that pt tracks. Reyna expressed appreciation for call.
[2016-04-27] VITALS (8 sets, daily range): BP systolic 120–160; BP diastolic 55–76
[2016-04-27] MEDS: BLOOD SUGAR DIAGNOSTIC 1 EACH STRIP IN SCH ×4 (00:53→17:10)
[2016-04-27] MEDS: IPRATROPIUM NEB FS 0.5 MG/2.5 ML AMPUL.NEB IH SCH ×4 (02:12→19:06)
[2016-04-27] MEDS: ALBUTEROL FS 2.5 MG/0.5 ML VIAL.NEB NEB SCH ×4 (02:12→19:07)
[2016-04-27] MEDS: LEVOTHYROXINE SODIUM 25 MCG TABLET GT SCH (06:06)
[2016-04-27] MEDS: PANTOPRAZOLE 40 MG/PACK PACK GT SCH (06:06)
[2016-04-27] MEDS: [UNRECOGNIZED DRUG - OTHER] GT SCH ×2 (09:00→17:00)
[2016-04-27] MEDS: [UNRECOGNIZED DRUG - OTHER] GT SCH (09:00)
[2016-04-27] MEDS: DOCUSATE SODIUM LIQ 100 MG/10 ML UDC GT SCH (09:36)
[2016-04-27] MEDS: POLYVINYL ALCOHOL 15 ML BOTTLE EACHEYE SCH (09:36)
[2016-04-27] MEDS: LACTOBACILLUS RHAMNOSUS GG 1 EACH CAP.SPRINK GT SCH (09:36)
[2016-04-27] MEDS: VALSARTAN 80 MG TABLET GT SCH ×2 (09:42→21:22)
[2016-04-27] MEDS: SUSTAIN GT SCH (09:44)
[2016-04-27] MEDS: CITICOLINE GT SCH ×3 (09:44→17:10)
[2016-04-27] MEDS: OMEGA GT SCH ×3 (09:45→17:10)
[2016-04-27] MEDS: NYSTATIN (PYXIS) 500,000 UNIT/5 ML ORAL.SUSP PO SCH ×3 (09:46→17:10)
[2016-04-27] MEDS: ASCORBIC ACID 500 MG TABLET GT SCH (09:46)
[2016-04-27] MEDS: MULTIVITAMINS,THERAGRAN 1 UDTAB TABLET GT SCH (09:46)
[2016-04-27] MEDS: LABETALOL HCL (100MG) 100 MG TABLET GT SCH ×2 (09:46→21:22)
[2016-04-27] MEDS: HYDROGEL DRESSING 90 GM TUBE TP SCH ×2 (09:46→21:22)
[2016-04-27] MEDS: LEVETIRACETAM SOL (5 ML) 100 MG/ML UDC GT SCH ×2 (09:46→21:22)
[2016-04-27] MEDS: [UNRECOGNIZED DRUG - OTHER] GT SCH (09:46)
[2016-04-27] MEDS: ZINC OXIDE TP SCH (09:46)
[2016-04-27] MEDS: VITAMINS A AND D 56.7 GM TUBE TP SCH ×2 (09:47→21:22)
[2016-04-27] MEDS: HYDROGEN PEROXIDE 480 ML BOTTLE TP SCH ×2 (09:47→21:22)
--- NOTE | 2016-04-27 14:17 | NUR ---
Seen and examined by Becca Smith NP, no new order given. Residents' daughter Jyotsna by the bedside.
[2016-04-27] MEDS: GLYTROL 1,000 ML BAG GT PRN (18:05)
[2016-04-27] MEDS: hydrALAZINE HCL 10 MG TABLET GT PRN (20:28)
[2016-04-28] VITALS (7 sets, daily range): BP systolic 128–142; BP diastolic 63–73
[2016-04-28] MEDS: BLOOD SUGAR DIAGNOSTIC 1 EACH STRIP IN SCH ×4 (00:27→17:03)
[2016-04-28] MEDS: INSULIN REGULAR, HUMAN 100 UNIT/ML 3 ML VIAL SQ PRN ×2 (00:28→06:00)
[2016-04-28] MEDS: IPRATROPIUM NEB FS 0.5 MG/2.5 ML AMPUL.NEB IH SCH ×4 (00:40→19:48)
[2016-04-28] MEDS: ALBUTEROL FS 2.5 MG/0.5 ML VIAL.NEB NEB SCH ×4 (00:40→19:48)
[2016-04-28] MEDS: LEVOTHYROXINE SODIUM 25 MCG TABLET GT SCH (05:59)
[2016-04-28] MEDS: PANTOPRAZOLE 40 MG/PACK PACK GT SCH (05:59)
[2016-04-28] MEDS: GLYTROL 1,000 ML BAG GT PRN ×2 (07:15→20:07)
[2016-04-28] MEDS: [UNRECOGNIZED DRUG - OTHER] GT SCH (09:00)
[2016-04-28] MEDS: [UNRECOGNIZED DRUG - OTHER] GT SCH ×2 (09:00→16:33)
[2016-04-28] MEDS: LACTOBACILLUS RHAMNOSUS GG 1 EACH CAP.SPRINK GT SCH (09:48)
[2016-04-28] MEDS: POLYVINYL ALCOHOL 15 ML BOTTLE EACHEYE SCH (09:48)
[2016-04-28] MEDS: VALSARTAN 80 MG TABLET GT SCH ×2 (09:48→20:20)
[2016-04-28] MEDS: DOCUSATE SODIUM LIQ 100 MG/10 ML UDC GT SCH (09:48)
[2016-04-28] MEDS: SUSTAIN GT SCH (09:50)
[2016-04-28] MEDS: MULTIVITAMINS,THERAGRAN 1 UDTAB TABLET GT SCH (09:51)
[2016-04-28] MEDS: OMEGA GT SCH ×3 (09:51→16:33)
[2016-04-28] MEDS: LABETALOL HCL (100MG) 100 MG TABLET GT SCH ×2 (09:51→20:20)
[2016-04-28] MEDS: [UNRECOGNIZED DRUG - OTHER] GT SCH (09:51)
[2016-04-28] MEDS: CITICOLINE GT SCH ×3 (09:51→16:33)
[2016-04-28] MEDS: LEVETIRACETAM SOL (5 ML) 100 MG/ML UDC GT SCH ×2 (09:51→20:20)
[2016-04-28] MEDS: ZINC OXIDE TP SCH (09:52)
[2016-04-28] MEDS: ASCORBIC ACID 500 MG TABLET GT SCH (09:52)
[2016-04-28] MEDS: HYDROGEL DRESSING 90 GM TUBE TP SCH ×2 (09:52→20:20)
[2016-04-28] MEDS: NYSTATIN (PYXIS) 500,000 UNIT/5 ML ORAL.SUSP PO SCH ×3 (09:52→16:33)
[2016-04-28] MEDS: VITAMINS A AND D 56.7 GM TUBE TP SCH ×2 (09:52→20:21)
[2016-04-28] MEDS: HYDROGEN PEROXIDE 480 ML BOTTLE TP SCH ×2 (09:52→20:21)
[2016-04-29] VITALS (8 sets, daily range): BP systolic 126–157; BP diastolic 50–86
[2016-04-29] MEDS: BLOOD SUGAR DIAGNOSTIC 1 EACH STRIP IN SCH ×4 (00:39→17:29)
[2016-04-29] MEDS: INSULIN REGULAR, HUMAN 100 UNIT/ML 3 ML VIAL SQ PRN ×2 (00:39→05:46)
[2016-04-29] MEDS: hydrALAZINE HCL 10 MG TABLET GT PRN ×4 (00:43→20:29)
[2016-04-29] MEDS: ALBUTEROL FS 2.5 MG/0.5 ML VIAL.NEB NEB SCH ×4 (02:14→20:18)
[2016-04-29] MEDS: IPRATROPIUM NEB FS 0.5 MG/2.5 ML AMPUL.NEB IH SCH ×4 (02:14→20:18)
[2016-04-29] MEDS: PANTOPRAZOLE 40 MG/PACK PACK GT SCH (05:45)
[2016-04-29] MEDS: LEVOTHYROXINE SODIUM 25 MCG TABLET GT SCH (05:45)
[2016-04-29] MEDS: DOCUSATE SODIUM LIQ 100 MG/10 ML UDC GT SCH (08:44)
[2016-04-29] MEDS: LACTOBACILLUS RHAMNOSUS GG 1 EACH CAP.SPRINK GT SCH (08:44)
[2016-04-29] MEDS: LABETALOL HCL (100MG) 100 MG TABLET GT SCH ×2 (08:45→20:57)
[2016-04-29] MEDS: LEVETIRACETAM SOL (5 ML) 100 MG/ML UDC GT SCH ×2 (08:45→20:56)
[2016-04-29] MEDS: MULTIVITAMINS,THERAGRAN 1 UDTAB TABLET GT SCH (08:45)
[2016-04-29] MEDS: ASCORBIC ACID 500 MG TABLET GT SCH (08:46)
[2016-04-29] MEDS: NYSTATIN (PYXIS) 500,000 UNIT/5 ML ORAL.SUSP PO SCH ×2 (08:46→12:34)
[2016-04-29] MEDS: VALSARTAN 80 MG TABLET GT SCH ×2 (08:47→20:55)
[2016-04-29] MEDS: POLYVINYL ALCOHOL 15 ML BOTTLE EACHEYE SCH (08:48)
[2016-04-29] MEDS: [UNRECOGNIZED DRUG - OTHER] GT SCH ×2 (08:50→16:30)
[2016-04-29] MEDS: [UNRECOGNIZED DRUG - OTHER] GT SCH (08:51)
[2016-04-29] MEDS: SUSTAIN GT SCH (08:51)
[2016-04-29] MEDS: [UNRECOGNIZED DRUG - OTHER] GT SCH (08:51)
[2016-04-29] MEDS: OMEGA GT SCH ×3 (08:51→16:31)
[2016-04-29] MEDS: CITICOLINE GT SCH ×3 (08:51→16:31)
[2016-04-29] MEDS: VITAMINS A AND D 56.7 GM TUBE TP SCH ×2 (08:54→20:57)
[2016-04-29] MEDS: HYDROGEN PEROXIDE 480 ML BOTTLE TP SCH ×2 (08:54→20:57)
[2016-04-29] MEDS: ZINC OXIDE TP SCH (08:54)
[2016-04-29] MEDS: HYDROGEL DRESSING 90 GM TUBE TP SCH ×2 (08:54→20:57)
--- NOTE | 2016-04-29 13:35 | NUR ---
IDT meeting held, resident's daughter Marielena Jeong attended. Reviewed all current orders including code status who she is now DNR. New order given to start Questran and D/C Nystatin oral swab. All orders noted and carried out.
--- NOTE | 2016-04-29 18:26 | NUR ---
Brain Octain Liquid and CogniAid Capsules, medications not available, family to provide, per family they are waiting for delivery.
[2016-04-30] VITALS (9 sets, daily range): BP systolic 109–157; BP diastolic 57–82
[2016-04-30] MEDS: INSULIN REGULAR, HUMAN 100 UNIT/ML 3 ML VIAL SQ PRN ×3 (00:57→23:41)
[2016-04-30] MEDS: BLOOD SUGAR DIAGNOSTIC 1 EACH STRIP IN SCH ×5 (00:57→23:40)
[2016-04-30] MEDS: ALBUTEROL FS 2.5 MG/0.5 ML VIAL.NEB NEB SCH ×4 (01:41→20:21)
[2016-04-30] MEDS: IPRATROPIUM NEB FS 0.5 MG/2.5 ML AMPUL.NEB IH SCH ×4 (01:41→20:21)
[2016-04-30] MEDS: GLYTROL 1,000 ML BAG GT PRN (03:45)
[2016-04-30] MEDS: LEVOTHYROXINE SODIUM 25 MCG TABLET GT SCH (06:07)
[2016-04-30] MEDS: PANTOPRAZOLE 40 MG/PACK PACK GT SCH (06:07)
[2016-04-30] MEDS: VALSARTAN 80 MG TABLET GT SCH ×2 (08:24→20:11)
[2016-04-30] MEDS: POLYVINYL ALCOHOL 15 ML BOTTLE EACHEYE SCH (08:24)
[2016-04-30] MEDS: [UNRECOGNIZED DRUG - OTHER] GT SCH ×2 (08:24→17:19)
[2016-04-30] MEDS: CITICOLINE GT SCH ×3 (08:24→17:19)
[2016-04-30] MEDS: CHOLESTYRAMINE/ASPARTAME 4 G/PKT PACKET GT SCH (08:24)
[2016-04-30] MEDS: LACTOBACILLUS RHAMNOSUS GG 1 EACH CAP.SPRINK GT SCH (08:24)
[2016-04-30] MEDS: [UNRECOGNIZED DRUG - OTHER] GT SCH (08:24)
[2016-04-30] MEDS: [UNRECOGNIZED DRUG - OTHER] GT SCH (08:24)
[2016-04-30] MEDS: OMEGA GT SCH ×3 (08:24→17:19)
[2016-04-30] MEDS: SUSTAIN GT SCH (08:24)
[2016-04-30] MEDS: DOCUSATE SODIUM LIQ 100 MG/10 ML UDC GT SCH (08:24)
[2016-04-30] MEDS: LEVETIRACETAM SOL (5 ML) 100 MG/ML UDC GT SCH ×2 (08:24→20:11)
[2016-04-30] MEDS: MULTIVITAMINS,THERAGRAN 1 UDTAB TABLET GT SCH (08:24)
[2016-04-30] MEDS: ASCORBIC ACID 500 MG TABLET GT SCH (08:25)
[2016-04-30] MEDS: LABETALOL HCL (100MG) 100 MG TABLET GT SCH ×2 (08:25→20:12)
[2016-04-30] MEDS ORDERED: CHOLESTYRAMINE/ASPARTAME 4 G/PKT PACKET GT SCH (09:00)
[2016-04-30] MEDS: ZINC OXIDE TP SCH (10:00)
[2016-04-30] MEDS: HYDROGEN PEROXIDE 480 ML BOTTLE TP SCH ×2 (10:00→20:20)
[2016-04-30] MEDS: VITAMINS A AND D 56.7 GM TUBE TP SCH ×2 (10:00→20:21)
[2016-04-30] MEDS: HYDROGEL DRESSING 90 GM TUBE TP SCH ×2 (10:00→20:20)
[2016-05-01] VITALS (7 sets, daily range): BP systolic 114–139; BP diastolic 61–74
[2016-05-01] MEDS: IPRATROPIUM NEB FS 0.5 MG/2.5 ML AMPUL.NEB IH SCH ×4 (01:37→19:33)
[2016-05-01] MEDS: ALBUTEROL FS 2.5 MG/0.5 ML VIAL.NEB NEB SCH ×4 (01:37→19:33)
[2016-05-01] MEDS: LEVOTHYROXINE SODIUM 25 MCG TABLET GT SCH (05:41)
[2016-05-01] MEDS: BLOOD SUGAR DIAGNOSTIC 1 EACH STRIP IN SCH ×3 (05:41→17:42)
[2016-05-01] MEDS: PANTOPRAZOLE 40 MG/PACK PACK GT SCH (05:41)
[2016-05-01] MEDS: INSULIN REGULAR, HUMAN 100 UNIT/ML 3 ML VIAL SQ PRN (05:42)
[2016-05-01] MEDS: DOCUSATE SODIUM LIQ 100 MG/10 ML UDC GT SCH (09:00)
[2016-05-01] MEDS: HYDROGEL DRESSING 90 GM TUBE TP SCH ×2 (09:00→21:04)
[2016-05-01] MEDS: [UNRECOGNIZED DRUG - OTHER] GT SCH (09:00)
[2016-05-01] MEDS: HYDROGEN PEROXIDE 480 ML BOTTLE TP SCH ×2 (09:00→21:05)
[2016-05-01] MEDS: VITAMINS A AND D 56.7 GM TUBE TP SCH ×2 (09:00→21:05)
[2016-05-01] MEDS: ZINC OXIDE TP SCH (09:00)
[2016-05-01] MEDS: OMEGA GT SCH ×3 (09:00→16:32)
[2016-05-01] MEDS: [UNRECOGNIZED DRUG - OTHER] GT SCH ×2 (09:00→16:32)
[2016-05-01] MEDS: SUSTAIN GT SCH (09:00)
[2016-05-01] MEDS: POLYVINYL ALCOHOL 15 ML BOTTLE EACHEYE SCH (09:56)
[2016-05-01] MEDS: LACTOBACILLUS RHAMNOSUS GG 1 EACH CAP.SPRINK GT SCH (09:56)
[2016-05-01] MEDS: VALSARTAN 80 MG TABLET GT SCH ×2 (09:56→21:04)
[2016-05-01] MEDS: [UNRECOGNIZED DRUG - OTHER] GT SCH (09:56)
[2016-05-01] MEDS: LEVETIRACETAM SOL (5 ML) 100 MG/ML UDC GT SCH ×2 (09:56→21:04)
[2016-05-01] MEDS: LABETALOL HCL (100MG) 100 MG TABLET GT SCH ×2 (09:58→21:04)
[2016-05-01] MEDS: ASCORBIC ACID 500 MG TABLET GT SCH (09:58)
[2016-05-01] MEDS: MULTIVITAMINS,THERAGRAN 1 UDTAB TABLET GT SCH (09:58)
[2016-05-01] MEDS: CHOLESTYRAMINE/ASPARTAME 4 G/PKT PACKET GT SCH (09:58)
[2016-05-01] MEDS: CITICOLINE GT SCH ×3 (09:59→16:32)
[2016-05-02] VITALS (8 sets, daily range): BP systolic 122–156; BP diastolic 64–80
[2016-05-02] MEDS: BLOOD SUGAR DIAGNOSTIC 1 EACH STRIP IN SCH ×4 (00:11→17:24)
[2016-05-02] MEDS: ALBUTEROL FS 2.5 MG/0.5 ML VIAL.NEB NEB SCH ×4 (01:27→19:14)
[2016-05-02] MEDS: IPRATROPIUM NEB FS 0.5 MG/2.5 ML AMPUL.NEB IH SCH ×4 (01:27→19:14)
[2016-05-02] MEDS: PANTOPRAZOLE 40 MG/PACK PACK GT SCH (06:03)
[2016-05-02] MEDS: LEVOTHYROXINE SODIUM 25 MCG TABLET GT SCH (06:03)
[2016-05-02] MEDS: [UNRECOGNIZED DRUG - OTHER] GT SCH (09:00)
[2016-05-02] MEDS: DOCUSATE SODIUM LIQ 100 MG/10 ML UDC GT SCH (09:11)
[2016-05-02] MEDS: POLYVINYL ALCOHOL 15 ML BOTTLE EACHEYE SCH (09:11)
[2016-05-02] MEDS: LACTOBACILLUS RHAMNOSUS GG 1 EACH CAP.SPRINK GT SCH (09:11)
[2016-05-02] MEDS: CITICOLINE GT SCH ×3 (09:13→17:24)
[2016-05-02] MEDS: [UNRECOGNIZED DRUG - OTHER] GT SCH ×2 (09:13→17:24)
[2016-05-02] MEDS: OMEGA GT SCH ×3 (09:14→17:24)
[2016-05-02] MEDS: [UNRECOGNIZED DRUG - OTHER] GT SCH (09:15)
[2016-05-02] MEDS: LEVETIRACETAM SOL (5 ML) 100 MG/ML UDC GT SCH ×2 (09:15→21:14)
[2016-05-02] MEDS: CHOLESTYRAMINE/ASPARTAME 4 G/PKT PACKET GT SCH (09:16)
[2016-05-02] MEDS: MULTIVITAMINS,THERAGRAN 1 UDTAB TABLET GT SCH (09:16)
[2016-05-02] MEDS: HYDROGEN PEROXIDE 480 ML BOTTLE TP SCH ×2 (09:17→21:15)
[2016-05-02] MEDS: HYDROGEL DRESSING 90 GM TUBE TP SCH ×2 (09:17→21:15)
[2016-05-02] MEDS: ZINC OXIDE TP SCH (09:17)
[2016-05-02] MEDS: ASCORBIC ACID 500 MG TABLET GT SCH (09:17)
[2016-05-02] MEDS: VITAMINS A AND D 56.7 GM TUBE TP SCH ×2 (09:17→21:15)
[2016-05-02] MEDS: LABETALOL HCL (100MG) 100 MG TABLET GT SCH ×2 (09:20→21:14)
[2016-05-02] MEDS: SUSTAIN GT SCH (09:20)
[2016-05-02] MEDS: VALSARTAN 80 MG TABLET GT SCH ×2 (09:20→21:14)
[2016-05-02] MEDS: INSULIN REGULAR, HUMAN 100 UNIT/ML 3 ML VIAL SQ PRN (11:54)
[2016-05-03] MEDS: BLOOD SUGAR DIAGNOSTIC 1 EACH STRIP IN SCH ×4 (00:04→17:34)
[2016-05-03] MEDS: IPRATROPIUM NEB FS 0.5 MG/2.5 ML AMPUL.NEB IH SCH ×4 (01:23→19:41)
[2016-05-03] MEDS: ALBUTEROL FS 2.5 MG/0.5 ML VIAL.NEB NEB SCH ×4 (01:23→19:41)
[2016-05-03 03:53] VITALS: BP 132/69
[2016-05-03 05:04] VITALS: BP 132/62
[2016-05-03] MEDS: PANTOPRAZOLE 40 MG/PACK PACK GT SCH (06:02)
[2016-05-03] MEDS: LEVOTHYROXINE SODIUM 25 MCG TABLET GT SCH (06:02)
[2016-05-03 08:04] VITALS: BP 139/70
[2016-05-03] MEDS: POLYVINYL ALCOHOL 15 ML BOTTLE EACHEYE SCH (08:37)
[2016-05-03] MEDS: LACTOBACILLUS RHAMNOSUS GG 1 EACH CAP.SPRINK GT SCH (08:38)
[2016-05-03] MEDS: DOCUSATE SODIUM LIQ 100 MG/10 ML UDC GT SCH (08:38)
[2016-05-03] MEDS: VALSARTAN 80 MG TABLET GT SCH ×2 (08:39→20:56)
[2016-05-03] MEDS: [UNRECOGNIZED DRUG - OTHER] GT SCH ×2 (08:40→17:32)
[2016-05-03] MEDS: CITICOLINE GT SCH ×3 (08:42→17:32)
[2016-05-03] MEDS: SUSTAIN GT SCH (08:42)
[2016-05-03] MEDS: [UNRECOGNIZED DRUG - OTHER] GT SCH (08:43)
[2016-05-03] MEDS: OMEGA GT SCH ×3 (08:44→17:33)
[2016-05-03] MEDS: [UNRECOGNIZED DRUG - OTHER] GT SCH (08:44)
[2016-05-03] MEDS: LEVETIRACETAM SOL (5 ML) 100 MG/ML UDC GT SCH ×2 (08:45→20:56)
[2016-05-03] MEDS: CHOLESTYRAMINE/ASPARTAME 4 G/PKT PACKET GT SCH (08:46)
[2016-05-03] MEDS: MULTIVITAMINS,THERAGRAN 1 UDTAB TABLET GT SCH (08:46)
[2016-05-03] MEDS: LABETALOL HCL (100MG) 100 MG TABLET GT SCH ×2 (08:47→20:56)
[2016-05-03] MEDS: ASCORBIC ACID 500 MG TABLET GT SCH (08:47)
[2016-05-03] MEDS: ZINC OXIDE TP SCH (09:00)
[2016-05-03] MEDS: VITAMINS A AND D 56.7 GM TUBE TP SCH ×2 (09:00→20:57)
[2016-05-03] MEDS: HYDROGEN PEROXIDE 480 ML BOTTLE TP SCH ×2 (09:00→20:57)
[2016-05-03] MEDS: HYDROGEL DRESSING 90 GM TUBE TP SCH ×2 (09:00→20:56)
[2016-05-03] MEDS: INSULIN REGULAR, HUMAN 100 UNIT/ML 3 ML VIAL SQ PRN (17:38)
[2016-05-03 18:56] VITALS: BP 139/70
[2016-05-03 19:36] VITALS: BP 123/66
[2016-05-04] VITALS (7 sets, daily range): BP systolic 108–139; BP diastolic 60–76
[2016-05-04] MEDS: BLOOD SUGAR DIAGNOSTIC 1 EACH STRIP IN SCH ×4 (00:11→17:22)
[2016-05-04] MEDS: IPRATROPIUM NEB FS 0.5 MG/2.5 ML AMPUL.NEB IH SCH ×4 (01:28→19:40)
[2016-05-04] MEDS: ALBUTEROL FS 2.5 MG/0.5 ML VIAL.NEB NEB SCH ×4 (01:29→19:40)
[2016-05-04] MEDS: PANTOPRAZOLE 40 MG/PACK PACK GT SCH (05:40)
[2016-05-04] MEDS: LEVOTHYROXINE SODIUM 25 MCG TABLET GT SCH (05:41)
[2016-05-04] MEDS: [UNRECOGNIZED DRUG - OTHER] GT SCH (09:00)
[2016-05-04] MEDS: DOCUSATE SODIUM LIQ 100 MG/10 ML UDC GT SCH (09:28)
[2016-05-04] MEDS: LACTOBACILLUS RHAMNOSUS GG 1 EACH CAP.SPRINK GT SCH (09:28)
[2016-05-04] MEDS: POLYVINYL ALCOHOL 15 ML BOTTLE EACHEYE SCH (09:28)
[2016-05-04] MEDS: VALSARTAN 80 MG TABLET GT SCH ×2 (09:29→20:50)
[2016-05-04] MEDS: [UNRECOGNIZED DRUG - OTHER] GT SCH ×2 (09:29→17:22)
[2016-05-04] MEDS: SUSTAIN GT SCH (09:30)
[2016-05-04] MEDS: CITICOLINE GT SCH ×3 (09:30→17:22)
[2016-05-04] MEDS: OMEGA GT SCH ×3 (09:32→17:22)
[2016-05-04] MEDS: CHOLESTYRAMINE/ASPARTAME 4 G/PKT PACKET GT SCH (09:33)
[2016-05-04] MEDS: [UNRECOGNIZED DRUG - OTHER] GT SCH (09:33)
[2016-05-04] MEDS: LEVETIRACETAM SOL (5 ML) 100 MG/ML UDC GT SCH ×2 (09:33→20:50)
[2016-05-04] MEDS: MULTIVITAMINS,THERAGRAN 1 UDTAB TABLET GT SCH (09:33)
[2016-05-04] MEDS: VITAMINS A AND D 56.7 GM TUBE TP SCH ×2 (09:34→21:44)
[2016-05-04] MEDS: ZINC OXIDE TP SCH (09:34)
[2016-05-04] MEDS: ASCORBIC ACID 500 MG TABLET GT SCH (09:34)
[2016-05-04] MEDS: HYDROGEN PEROXIDE 480 ML BOTTLE TP SCH ×2 (09:34→21:44)
[2016-05-04] MEDS: LABETALOL HCL (100MG) 100 MG TABLET GT SCH ×2 (09:34→20:51)
[2016-05-04] MEDS: HYDROGEL DRESSING 90 GM TUBE TP SCH ×2 (09:34→21:44)
[2016-05-04] MEDS: GLYTROL 1,000 ML BAG GT PRN ×2 (09:35→21:45)
[2016-05-04] MEDS: hydrALAZINE HCL 10 MG TABLET GT PRN ×2 (12:42→17:35)
[2016-05-04] MEDS: INSULIN REGULAR, HUMAN 100 UNIT/ML 3 ML VIAL SQ PRN ×2 (12:42→17:22)
[2016-05-04] MEDS ORDERED: LOPERAMIDE HCL UDC(2 MG/10 ML) 2 MG/10 ML UDC GT PRN (13:19)
[2016-05-05] MEDS: BLOOD SUGAR DIAGNOSTIC 1 EACH STRIP IN SCH ×4 (00:39→18:00)
[2016-05-05] MEDS: INSULIN REGULAR, HUMAN 100 UNIT/ML 3 ML VIAL SQ PRN ×2 (00:39→06:02)
[2016-05-05 01:00] VITALS: BP 120/58
[2016-05-05] MEDS: ALBUTEROL FS 2.5 MG/0.5 ML VIAL.NEB NEB SCH ×4 (02:28→20:38)
[2016-05-05] MEDS: IPRATROPIUM NEB FS 0.5 MG/2.5 ML AMPUL.NEB IH SCH ×4 (02:28→20:38)
[2016-05-05 05:00] VITALS: BP 104/49
[2016-05-05] MEDS: PANTOPRAZOLE 40 MG/PACK PACK GT SCH (06:01)
[2016-05-05] MEDS: LEVOTHYROXINE SODIUM 25 MCG TABLET GT SCH (06:01)
[2016-05-05 07:38] VITALS: BP 129/54
[2016-05-05] MEDS: HYDROGEL DRESSING 90 GM TUBE TP SCH ×2 (09:00→21:41)
[2016-05-05] MEDS: HYDROGEN PEROXIDE 480 ML BOTTLE TP SCH ×2 (09:00→21:41)
[2016-05-05] MEDS: ZINC OXIDE TP SCH (09:00)
[2016-05-05] MEDS: POLYVINYL ALCOHOL 15 ML BOTTLE EACHEYE SCH (09:00)
[2016-05-05] MEDS: VITAMINS A AND D 56.7 GM TUBE TP SCH ×2 (09:00→21:58)
[2016-05-05] MEDS: [UNRECOGNIZED DRUG - OTHER] GT SCH ×2 (09:09→16:07)
[2016-05-05] MEDS: SUSTAIN GT SCH (09:14)
[2016-05-05] MEDS: CITICOLINE GT SCH ×3 (09:15→16:09)
[2016-05-05] MEDS: [UNRECOGNIZED DRUG - OTHER] GT SCH (09:17)
[2016-05-05] MEDS: DOCUSATE SODIUM LIQ 100 MG/10 ML UDC GT SCH (09:30)
[2016-05-05] MEDS: VALSARTAN 80 MG TABLET GT SCH ×2 (09:32→21:40)
[2016-05-05] MEDS: LEVETIRACETAM SOL (5 ML) 100 MG/ML UDC GT SCH ×2 (09:34→21:40)
[2016-05-05] MEDS: OMEGA GT SCH ×3 (09:34→16:10)
[2016-05-05] MEDS: [UNRECOGNIZED DRUG - OTHER] GT SCH (09:35)
[2016-05-05] MEDS: LACTOBACILLUS RHAMNOSUS GG 1 EACH CAP.SPRINK GT SCH (09:37)
[2016-05-05] MEDS: MULTIVITAMINS,THERAGRAN 1 UDTAB TABLET GT SCH (09:39)
[2016-05-05] MEDS: LABETALOL HCL (100MG) 100 MG TABLET GT SCH ×2 (09:41→21:40)
[2016-05-05] MEDS: ASCORBIC ACID 500 MG TABLET GT SCH (09:41)
[2016-05-05] MEDS: CHOLESTYRAMINE/ASPARTAME 4 G/PKT PACKET GT SCH (09:41)
--- NOTE | 2016-05-05 14:41 | NUR ---
Seen and examined by Becca Smith NP, no new order given at this time.
[2016-05-05] MEDS: GLYTROL 1,000 ML BAG GT PRN (16:37)
[2016-05-05 20:24] VITALS: BP 127/73
[2016-05-05 21:30] VITALS: BP 109/56
[2016-05-05] MEDS: Z GUARD REMEDY 4 OZ OINT TP SCH (21:58)
[2016-05-06] VITALS (7 sets, daily range): BP systolic 113–137; BP diastolic 57–73
[2016-05-06] MEDS: BLOOD SUGAR DIAGNOSTIC 1 EACH STRIP IN SCH ×4 (00:34→17:42)
[2016-05-06] MEDS: INSULIN REGULAR, HUMAN 100 UNIT/ML 3 ML VIAL SQ PRN ×4 (00:34→17:42)
[2016-05-06] MEDS: IPRATROPIUM NEB FS 0.5 MG/2.5 ML AMPUL.NEB IH SCH ×4 (02:27→19:53)
[2016-05-06] MEDS: ALBUTEROL FS 2.5 MG/0.5 ML VIAL.NEB NEB SCH ×4 (02:27→19:53)
[2016-05-06] MEDS: LEVOTHYROXINE SODIUM 25 MCG TABLET GT SCH (05:40)
[2016-05-06] MEDS: PANTOPRAZOLE 40 MG/PACK PACK GT SCH (05:40)
[2016-05-06] MEDS: GLYTROL 1,000 ML BAG GT PRN ×2 (06:02→18:05)
[2016-05-06] MEDS: VALSARTAN 80 MG TABLET GT SCH ×2 (08:32→21:00)
[2016-05-06] MEDS: [UNRECOGNIZED DRUG - OTHER] GT SCH ×2 (08:32→17:00)
[2016-05-06] MEDS: CITICOLINE GT SCH ×3 (08:32→17:00)
[2016-05-06] MEDS: SUSTAIN GT SCH (08:32)
[2016-05-06] MEDS: POLYVINYL ALCOHOL 15 ML BOTTLE EACHEYE SCH (08:32)
[2016-05-06] MEDS: LACTOBACILLUS RHAMNOSUS GG 1 EACH CAP.SPRINK GT SCH (08:32)
[2016-05-06] MEDS: DOCUSATE SODIUM LIQ 100 MG/10 ML UDC GT SCH (08:32)
[2016-05-06] MEDS: [UNRECOGNIZED DRUG - OTHER] GT SCH (08:32)
[2016-05-06] MEDS: OMEGA GT SCH ×3 (08:32→17:00)
[2016-05-06] MEDS: CHOLESTYRAMINE/ASPARTAME 4 G/PKT PACKET GT SCH (08:33)
[2016-05-06] MEDS: MULTIVITAMINS,THERAGRAN 1 UDTAB TABLET GT SCH (08:33)
[2016-05-06] MEDS: LABETALOL HCL (100MG) 100 MG TABLET GT SCH ×2 (08:33→21:35)
[2016-05-06] MEDS: [UNRECOGNIZED DRUG - OTHER] GT SCH (08:33)
[2016-05-06] MEDS: ASCORBIC ACID 500 MG TABLET GT SCH (08:33)
[2016-05-06] MEDS: HYDROGEL DRESSING 90 GM TUBE TP SCH ×2 (08:33→21:35)
[2016-05-06] MEDS: LEVETIRACETAM SOL (5 ML) 100 MG/ML UDC GT SCH ×2 (08:33→21:35)
[2016-05-06] MEDS: VITAMINS A AND D 56.7 GM TUBE TP SCH ×2 (08:34→21:36)
[2016-05-06] MEDS: HYDROGEN PEROXIDE 480 ML BOTTLE TP SCH ×2 (08:34→21:35)
[2016-05-06] MEDS: ZINC OXIDE TP SCH (08:34)
[2016-05-06] MEDS: Z GUARD REMEDY 4 OZ OINT TP SCH ×2 (08:34→21:35)
[2016-05-06] MEDS: ONDANSETRON 4 MG TAB.RAPDIS GT PRN (11:46)
[2016-05-06] MEDS: hydrALAZINE HCL 10 MG TABLET GT PRN ×2 (12:06→17:46)
--- NOTE | 2016-05-06 14:20 | NUR ---
Notified resident's daughter Reyna regarding episode of vomiting with undigested food together with what appears to be dietary supplements. Resident awake, eyes were open, BP 135/69, 88, 98.1, 18. Reyna had verbalized that she wants the supplements to be held for a couple of weeks and will revisit the need after a couple of weeks. She said that those supplements could exacerbate the situation and she would like her bowel to rest for a while. During IDT it was mentioned to Dr. Monet regarding episode of vomiting, VS and family's request to hold the supplements. All orders noted and carried out.
--- NOTE | 2016-05-06 18:51 | NUR ---
Patient noted with moderate amount of emesis of undigested food and undigested supplements in am. Zofran given as ordered and effective. Gt in place patent and no residual. Suctioned as needed. No aspiration noted. Per Daughter Reyna to hold all supplements from now on until further notice. HOB elevated, aspiration precautions maintained. Bowel sounds present to all four quadrants of abdomen. Kept clean and comfortable. No further episode of nausea and vomiting noted. Skin is warm and dry. All needs met and attended.
[2016-05-07] VITALS (7 sets, daily range): BP systolic 104–130; BP diastolic 58–65
[2016-05-07] MEDS: BLOOD SUGAR DIAGNOSTIC 1 EACH STRIP IN SCH ×4 (00:20→17:24)
[2016-05-07] MEDS: INSULIN REGULAR, HUMAN 100 UNIT/ML 3 ML VIAL SQ PRN ×4 (00:22→17:46)
[2016-05-07] MEDS: ALBUTEROL FS 2.5 MG/0.5 ML VIAL.NEB NEB SCH ×4 (00:57→19:41)
[2016-05-07] MEDS: IPRATROPIUM NEB FS 0.5 MG/2.5 ML AMPUL.NEB IH SCH ×4 (00:57→19:41)
[2016-05-07] MEDS: PANTOPRAZOLE 40 MG/PACK PACK GT SCH (05:32)
[2016-05-07] MEDS: LEVOTHYROXINE SODIUM 25 MCG TABLET GT SCH (05:32)
[2016-05-07] MEDS: GLYTROL 1,000 ML BAG GT PRN ×2 (06:26→18:05)
[2016-05-07] MEDS: DOCUSATE SODIUM LIQ 100 MG/10 ML UDC GT SCH (08:39)
[2016-05-07] MEDS: LACTOBACILLUS RHAMNOSUS GG 1 EACH CAP.SPRINK GT SCH (08:39)
[2016-05-07] MEDS: POLYVINYL ALCOHOL 15 ML BOTTLE EACHEYE SCH (08:39)
[2016-05-07] MEDS: [UNRECOGNIZED DRUG - OTHER] GT SCH (08:40)
[2016-05-07] MEDS: CITICOLINE GT SCH (08:40)
[2016-05-07] MEDS: VALSARTAN 80 MG TABLET GT SCH ×2 (08:40→20:25)
[2016-05-07] MEDS: SUSTAIN GT SCH (08:40)
[2016-05-07] MEDS: [UNRECOGNIZED DRUG - OTHER] GT SCH (08:41)
[2016-05-07] MEDS: [UNRECOGNIZED DRUG - OTHER] GT SCH (08:44)
[2016-05-07] MEDS: ASCORBIC ACID 500 MG TABLET GT SCH (08:45)
[2016-05-07] MEDS: CHOLESTYRAMINE/ASPARTAME 4 G/PKT PACKET GT SCH (08:45)
[2016-05-07] MEDS: OMEGA GT SCH ×3 (08:45→17:24)
[2016-05-07] MEDS: LEVETIRACETAM SOL (5 ML) 100 MG/ML UDC GT SCH ×2 (08:45→20:26)
[2016-05-07] MEDS: HYDROGEL DRESSING 90 GM TUBE TP SCH ×2 (08:45→20:26)
[2016-05-07] MEDS: LABETALOL HCL (100MG) 100 MG TABLET GT SCH ×2 (08:45→20:26)
[2016-05-07] MEDS: MULTIVITAMINS,THERAGRAN 1 UDTAB TABLET GT SCH (08:45)
[2016-05-07] MEDS: ZINC OXIDE TP SCH (08:46)
[2016-05-07] MEDS: HYDROGEN PEROXIDE 480 ML BOTTLE TP SCH ×2 (08:46→20:26)
[2016-05-07] MEDS: Z GUARD REMEDY 4 OZ OINT TP SCH ×2 (08:46→20:26)
[2016-05-07] MEDS: VITAMINS A AND D 56.7 GM TUBE TP SCH ×2 (08:46→20:27)
[2016-05-07] MEDS: hydrALAZINE HCL 10 MG TABLET GT PRN (17:25)
[2016-05-08] VITALS (8 sets, daily range): BP systolic 115–167; BP diastolic 60–91
[2016-05-08] MEDS: BLOOD SUGAR DIAGNOSTIC 1 EACH STRIP IN SCH ×5 (00:02→23:57)
[2016-05-08] MEDS: INSULIN REGULAR, HUMAN 100 UNIT/ML 3 ML VIAL SQ PRN ×3 (00:03→23:57)
[2016-05-08] MEDS: IPRATROPIUM NEB FS 0.5 MG/2.5 ML AMPUL.NEB IH SCH ×4 (00:51→19:23)
[2016-05-08] MEDS: ALBUTEROL FS 2.5 MG/0.5 ML VIAL.NEB NEB SCH ×4 (00:51→19:23)
[2016-05-08] MEDS: GLYTROL 1,000 ML BAG GT PRN (04:30)
[2016-05-08] MEDS: LEVOTHYROXINE SODIUM 25 MCG TABLET GT SCH (05:05)
[2016-05-08] MEDS: PANTOPRAZOLE 40 MG/PACK PACK GT SCH (05:05)
[2016-05-08] MEDS: LEVETIRACETAM SOL (5 ML) 100 MG/ML UDC GT SCH ×2 (08:32→21:05)
[2016-05-08] MEDS: MULTIVITAMINS,THERAGRAN 1 UDTAB TABLET GT SCH (08:32)
[2016-05-08] MEDS: LACTOBACILLUS RHAMNOSUS GG 1 EACH CAP.SPRINK GT SCH (08:32)
[2016-05-08] MEDS: CHOLESTYRAMINE/ASPARTAME 4 G/PKT PACKET GT SCH (08:32)
[2016-05-08] MEDS: POLYVINYL ALCOHOL 15 ML BOTTLE EACHEYE SCH (08:32)
[2016-05-08] MEDS: LABETALOL HCL (100MG) 100 MG TABLET GT SCH ×2 (08:32→21:05)
[2016-05-08] MEDS: VALSARTAN 80 MG TABLET GT SCH ×2 (08:32→21:05)
[2016-05-08] MEDS: DOCUSATE SODIUM LIQ 100 MG/10 ML UDC GT SCH (08:32)
[2016-05-08] MEDS: ASCORBIC ACID 500 MG TABLET GT SCH (08:33)
[2016-05-08] MEDS: ZINC OXIDE TP SCH (09:00)
[2016-05-08] MEDS: HYDROGEL DRESSING 90 GM TUBE TP SCH ×2 (09:00→21:05)
[2016-05-08] MEDS: OMEGA GT SCH ×3 (09:00→17:02)
[2016-05-08] MEDS: VITAMINS A AND D 56.7 GM TUBE TP SCH ×2 (09:00→21:06)
[2016-05-08] MEDS: Z GUARD REMEDY 4 OZ OINT TP SCH ×2 (09:00→21:06)
[2016-05-08] MEDS: HYDROGEN PEROXIDE 480 ML BOTTLE TP SCH ×2 (09:00→21:05)
[2016-05-08] MEDS: hydrALAZINE HCL 10 MG TABLET GT PRN (19:59)
[2016-05-09] VITALS (11 sets, daily range): BP systolic 103–152; BP diastolic 53–80
[2016-05-09] MEDS: ONDANSETRON 4 MG TAB.RAPDIS GT PRN ×2 (00:56→21:19)
[2016-05-09] MEDS: IPRATROPIUM NEB FS 0.5 MG/2.5 ML AMPUL.NEB IH SCH ×4 (01:22→19:30)
[2016-05-09] MEDS: ALBUTEROL FS 2.5 MG/0.5 ML VIAL.NEB NEB SCH ×4 (01:22→19:30)
[2016-05-09] MEDS: hydrALAZINE HCL 10 MG TABLET GT PRN ×2 (05:07→22:19)
[2016-05-09] MEDS: LEVOTHYROXINE SODIUM 25 MCG TABLET GT SCH (05:07)
[2016-05-09] MEDS: PANTOPRAZOLE 40 MG/PACK PACK GT SCH (05:07)
[2016-05-09] MEDS: BLOOD SUGAR DIAGNOSTIC 1 EACH STRIP IN SCH ×4 (05:31→23:20)
[2016-05-09] MEDS: INSULIN REGULAR, HUMAN 100 UNIT/ML 3 ML VIAL SQ PRN ×4 (05:32→23:20)
[2016-05-09] MEDS: ACETAMINOPHEN 650 MG/20 ML UDC- FOR SA PATIENTS ONLY GT PRN (06:29)
[2016-05-09] MEDS: HYDROGEN PEROXIDE 480 ML BOTTLE TP SCH ×2 (09:00→21:19)
[2016-05-09] MEDS: ZINC OXIDE 56.7 GM TUBE TP SCH (09:00)
[2016-05-09] MEDS: VITAMINS A AND D 56.7 GM TUBE TP SCH ×2 (09:00→21:19)
[2016-05-09] MEDS: Z GUARD REMEDY 4 OZ OINT TP SCH ×2 (09:00→21:19)
[2016-05-09] MEDS: HYDROGEL DRESSING 90 GM TUBE TP SCH ×2 (09:00→21:18)
[2016-05-09] MEDS: DOCUSATE SODIUM LIQ 100 MG/10 ML UDC GT SCH (09:05)
[2016-05-09] MEDS: LACTOBACILLUS RHAMNOSUS GG 1 EACH CAP.SPRINK GT SCH (09:05)
[2016-05-09] MEDS: VALSARTAN 80 MG TABLET GT SCH ×2 (09:06→21:18)
[2016-05-09] MEDS: LABETALOL HCL (100MG) 100 MG TABLET GT SCH ×2 (09:06→21:18)
[2016-05-09] MEDS: OMEGA GT SCH ×3 (09:06→17:33)
[2016-05-09] MEDS: MULTIVITAMINS,THERAGRAN 1 UDTAB TABLET GT SCH (09:06)
[2016-05-09] MEDS: CHOLESTYRAMINE/ASPARTAME 4 G/PKT PACKET GT SCH (09:06)
[2016-05-09] MEDS: LEVETIRACETAM SOL (5 ML) 100 MG/ML UDC GT SCH ×2 (09:06→21:18)
[2016-05-09] MEDS: POLYVINYL ALCOHOL 15 ML BOTTLE EACHEYE SCH (09:07)
[2016-05-09] MEDS: ASCORBIC ACID 500 MG TABLET GT SCH (09:07)
[2016-05-09] MEDS ORDERED: ZINC OXIDE 56.7 GM TUBE TP PRN (10:30)
--- NOTE | 2016-05-09 12:50 | NUR ---
Seen and examined by Dr. Monet and made aware that per report resident had small amount of vomiting last night x1. No constipation with 1-3 times bowel movement per day. Abdomen soft, non distended. B/P rechecked after giving all routine B/P meds, it went down to 103/53. Resident's daughter Reyna notified and she mentioned not to tell her other sisters whether or not other siblings are visiting, to just simply say "I don't know". endorsed.
[2016-05-10] VITALS (8 sets, daily range): BP systolic 128–162; BP diastolic 66–86
[2016-05-10] MEDS: ALBUTEROL FS 2.5 MG/0.5 ML VIAL.NEB NEB SCH ×4 (00:38→19:30)
[2016-05-10] MEDS: IPRATROPIUM NEB FS 0.5 MG/2.5 ML AMPUL.NEB IH SCH ×4 (00:38→19:30)
[2016-05-10] MEDS: GLYTROL 1,000 ML BAG GT PRN (05:31)
[2016-05-10] MEDS: BLOOD SUGAR DIAGNOSTIC 1 EACH STRIP IN SCH ×3 (05:31→18:34)
[2016-05-10] MEDS: PANTOPRAZOLE 40 MG/PACK PACK GT SCH (05:31)
[2016-05-10] MEDS: LEVOTHYROXINE SODIUM 25 MCG TABLET GT SCH (05:31)
[2016-05-10] MEDS: INSULIN REGULAR, HUMAN 100 UNIT/ML 3 ML VIAL SQ PRN ×3 (05:32→18:35)
--- NOTE | 2016-05-10 07:00 | NUR ---
SALES SUPPORT ADVISOR Notes: Patient noted with small amount of emesis x1 during shift. PRN Zofran was given and was effective. GT in place and no residual noted. Suctioned pt, kept clean and comfortable. No further episode of nausea and vomiting noted.
[2016-05-10] MEDS: HYDROGEN PEROXIDE 480 ML BOTTLE TP SCH ×2 (09:00→21:30)
[2016-05-10] MEDS: ZINC OXIDE 56.7 GM TUBE TP SCH (09:00)
[2016-05-10] MEDS: Z GUARD REMEDY 4 OZ OINT TP SCH ×2 (09:00→21:30)
[2016-05-10] MEDS: VITAMINS A AND D 56.7 GM TUBE TP SCH ×2 (09:00→21:30)
[2016-05-10] MEDS: HYDROGEL DRESSING 90 GM TUBE TP SCH ×2 (09:00→21:30)
[2016-05-10] MEDS: LACTOBACILLUS RHAMNOSUS GG 1 EACH CAP.SPRINK GT SCH (09:07)
[2016-05-10] MEDS: DOCUSATE SODIUM LIQ 100 MG/10 ML UDC GT SCH (09:07)
[2016-05-10] MEDS: OMEGA GT SCH ×3 (09:08→17:18)
[2016-05-10] MEDS: MULTIVITAMINS,THERAGRAN 1 UDTAB TABLET GT SCH (09:08)
[2016-05-10] MEDS: LEVETIRACETAM SOL (5 ML) 100 MG/ML UDC GT SCH ×2 (09:08→21:30)
[2016-05-10] MEDS: CHOLESTYRAMINE/ASPARTAME 4 G/PKT PACKET GT SCH (09:08)
[2016-05-10] MEDS: VALSARTAN 80 MG TABLET GT SCH ×2 (09:08→21:30)
[2016-05-10] MEDS: LABETALOL HCL (100MG) 100 MG TABLET GT SCH ×2 (09:08→21:30)
[2016-05-10] MEDS: ASCORBIC ACID 500 MG TABLET GT SCH (09:09)
[2016-05-10] MEDS: POLYVINYL ALCOHOL 15 ML BOTTLE EACHEYE SCH (09:09)
[2016-05-10] MEDS: hydrALAZINE HCL 10 MG TABLET GT PRN (20:30)
--- NOTE | 2016-05-10 22:30 | NUR ---
GPS RN NOTE: 2029: PATIENT XS=466/86 P=86 T=99.3 R=19 99% O2 SAT. HYDRALAZINE 10 MG GIVEN ORDERED. COOLING MEASURES RENDERED. PATIENT VOMITED WITH MILD TO MODERATE AMOUNT OF FEEDING LIKE CONTENTS DURING CHANGING AND TURNING. PATIENT HAS NO SOB, NO ACUTE DISTRESS, BREATHING EVEN AND UNLABORED, NO S/S OF PAIN AND DISCOMFORT, ABDOMEN SOFT AND NON DISTENDED, NO RESIDUALS NOTED. NO S/S OF ASPIRATION NOTED, KEPT CLEAN, DRY AND COMFORTABLE, CN AWARE. WILL CONTINUE TO MONITOR. 2129: GX=264/72 P=82 R=20 T=98.8 O2 SAT 98%. ROUTINE PM BP MEDS GIVEN ORDERED. NO SOB, NO ACUTE DISTRESS, BREATHING EVEN AND UNLABORED, NO S/S OF PAIN AND DISCOMFORT. 2229: SD=432/75 P=80 R=20 T=98.2 O2 SAT 98%. PATIENT CALM AND COMFORTABLE, NO SOB, NO ACUTE DISTRESS, BREATHING EVEN AND UNLABORED. KEPT CLEAN DRY AND COMFORTABLE. WILL CONTINUE TO MONITOR. Addendum: 05/11/16 at 0632 by CHAPINCITO SILVA II, RN disregard gps
[2016-05-11] VITALS (9 sets, daily range): BP systolic 124–155; BP diastolic 61–81
[2016-05-11] MEDS: BLOOD SUGAR DIAGNOSTIC 1 EACH STRIP IN SCH ×5 (00:49→23:56)
[2016-05-11] MEDS: IPRATROPIUM NEB FS 0.5 MG/2.5 ML AMPUL.NEB IH SCH ×4 (01:19→21:20)
[2016-05-11] MEDS: ALBUTEROL FS 2.5 MG/0.5 ML VIAL.NEB NEB SCH ×4 (01:19→21:20)
[2016-05-11] MEDS: hydrALAZINE HCL 10 MG TABLET GT PRN ×4 (01:40→17:15)
[2016-05-11] MEDS: ONDANSETRON 4 MG TAB.RAPDIS GT PRN ×2 (02:26→12:49)
--- NOTE | 2016-05-11 02:29 | NUR ---
gps rn note: Patient noted with minimal amount of emesis. No sob, no acute distress, breathing even and unlabored. Patient asleep, arausable to tactile stimuli. No sob, no acute distress, breathing even and unlabored, no s/s of pain and discomfort, no s/s of aspiration noted. Zofran 4mg gt administered. Will continue to monitor Addendum: 05/11/16 at 0632 by CHAPINCITO SILVA II, RN disregard gps
[2016-05-11] MEDS: LEVOTHYROXINE SODIUM 25 MCG TABLET GT SCH (05:19)
[2016-05-11] MEDS: PANTOPRAZOLE 40 MG/PACK PACK GT SCH (05:19)
[2016-05-11] MEDS: LACTOBACILLUS RHAMNOSUS GG 1 EACH CAP.SPRINK GT SCH (09:11)
[2016-05-11] MEDS: OMEGA GT SCH ×3 (09:11→17:14)
[2016-05-11] MEDS: DOCUSATE SODIUM LIQ 100 MG/10 ML UDC GT SCH (09:11)
[2016-05-11] MEDS: LEVETIRACETAM SOL (5 ML) 100 MG/ML UDC GT SCH ×2 (09:11→21:06)
[2016-05-11] MEDS: POLYVINYL ALCOHOL 15 ML BOTTLE EACHEYE SCH (09:11)
[2016-05-11] MEDS: VALSARTAN 80 MG TABLET GT SCH ×2 (09:11→21:06)
[2016-05-11] MEDS: MULTIVITAMINS,THERAGRAN 1 UDTAB TABLET GT SCH (09:11)
[2016-05-11] MEDS: CHOLESTYRAMINE/ASPARTAME 4 G/PKT PACKET GT SCH (09:11)
[2016-05-11] MEDS: LABETALOL HCL (100MG) 100 MG TABLET GT SCH ×2 (09:12→21:07)
[2016-05-11] MEDS: ASCORBIC ACID 500 MG TABLET GT SCH (09:12)
--- NOTE | 2016-05-11 11:23 | NUR ---
Resident vomited x1 with undigested formula, suctioned trach and mouth, no s/s of aspiration noted. Notified Reyna of vomiting episode and KUB result showing GT in place with mild gastric distention. B/P taken immediately after she vomited 155/79 , rechecked after 1h B/P 124/65, 76 no PRN hydralazine given, PRN Zofran given. Dr. Monet notified of vomiting episode and KUB result, NNO given at this time.
[2016-05-11] MEDS: HYDROGEN PEROXIDE 480 ML BOTTLE TP SCH ×2 (12:47→21:43)
[2016-05-11] MEDS: Z GUARD REMEDY 4 OZ OINT TP SCH ×2 (12:47→21:44)
[2016-05-11] MEDS: HYDROGEL DRESSING 90 GM TUBE TP SCH ×2 (12:47→21:43)
[2016-05-11] MEDS: ZINC OXIDE 56.7 GM TUBE TP SCH (12:48)
[2016-05-11] MEDS: VITAMINS A AND D 56.7 GM TUBE TP SCH ×2 (12:48→21:44)
[2016-05-11] MEDS: INSULIN REGULAR, HUMAN 100 UNIT/ML 3 ML VIAL SQ PRN ×3 (12:49→23:57)
--- NOTE | 2016-05-11 17:00 | NUR ---
Obtain and order from Dr. Monet for CBC, BMP in AM. RNA mentioned resident may benefit from a splint in her upper extremities. OT evaluation order obtained. all orders noted and carried out.
[2016-05-11] MEDS: GLYTROL 1,000 ML BAG GT PRN (17:16)
[2016-05-12] VITALS (7 sets, daily range): BP systolic 130–147; BP diastolic 65–80
[2016-05-12] MEDS: IPRATROPIUM NEB FS 0.5 MG/2.5 ML AMPUL.NEB IH SCH ×4 (00:45→19:47)
[2016-05-12] MEDS: ALBUTEROL FS 2.5 MG/0.5 ML VIAL.NEB NEB SCH ×4 (00:46→19:47)
[2016-05-12] MEDS: BLOOD SUGAR DIAGNOSTIC 1 EACH STRIP IN SCH ×3 (05:49→18:00)
[2016-05-12] MEDS: LEVOTHYROXINE SODIUM 25 MCG TABLET GT SCH (05:49)
[2016-05-12] MEDS: PANTOPRAZOLE 40 MG/PACK PACK GT SCH (05:49)
[2016-05-12] MEDS: INSULIN REGULAR, HUMAN 100 UNIT/ML 3 ML VIAL SQ PRN (05:49)
[2016-05-12] MEDS: GLYTROL 1,000 ML BAG GT PRN ×2 (05:50→20:59)
[2016-05-12 07:33] LABS: CALCIUM, SERUM 8.4 mg/dL (8.5-10.1); CREATININE 0.6 mg/dL (0.6-1.3); POTASSIUM 3.8 mmol/L (3.5-5.1)
[2016-05-12 08:38] LABS: BASOPHILS # (AUTO) 0.1 /CMM (0.0-0.2); BASOPHILS % (AUTO) 0.5 % (0.0-2.0); EOSINOPHILS # (AUTO) 0.1 /CMM (0.0-0.7); EOSINOPHILS % (AUTO) 0.5 % (0.0-6.0); HEMATOCRIT 34 % (33-45); HEMOGLOBIN 11.1 g/dL (11.5-14.8); LYMPHOCYTES # (AUTO) 1.5 /CMM (0.8-4.8); LYMPHOCYTES % (AUTO) 14.5 % (20.0-44.0); MEAN CORPUSCULAR HEMOGLOBIN 27 PG (26.0-33.0); MEAN CORPUSCULAR HGB CONC 33 g/dl (31.0-36.0); MEAN CORPUSCULAR VOLUME 83 fL (82-100); MONOCYTES # (AUTO) 1.5 /CMM (0.1-1.30); MONOCYTES % (AUTO) 14.2 % (2.0-12.0); NEUTROPHILS # (AUTO) 7.4 /CMM (1.8-8.9); NEUTROPHILS % (AUTO) 70.3 % (43.0-81.0); PLATELET COUNT (AUTO) 397 /CMM (150-450); RDW COEFFICIENT OF VARIATION 14.9 (11.5-15.0); RED BLOOD CELL COUNT(AUTO) 4.14 MIL/uL (4.0-5.2); WHITE BLOOD COUNT (AUTO) 10.6 K/uL (4.3-11.0)
[2016-05-12] MEDS: LACTOBACILLUS RHAMNOSUS GG 1 EACH CAP.SPRINK GT SCH (09:05)
[2016-05-12] MEDS: DOCUSATE SODIUM LIQ 100 MG/10 ML UDC GT SCH (09:05)
[2016-05-12] MEDS: POLYVINYL ALCOHOL 15 ML BOTTLE EACHEYE SCH (09:05)
[2016-05-12] MEDS: CHOLESTYRAMINE/ASPARTAME 4 G/PKT PACKET GT SCH (09:06)
[2016-05-12] MEDS: OMEGA GT SCH ×3 (09:06→17:00)
[2016-05-12] MEDS: VALSARTAN 80 MG TABLET GT SCH ×2 (09:06→20:52)
[2016-05-12] MEDS: LEVETIRACETAM SOL (5 ML) 100 MG/ML UDC GT SCH ×2 (09:06→20:52)
[2016-05-12] MEDS: MULTIVITAMINS,THERAGRAN 1 UDTAB TABLET GT SCH (09:06)
[2016-05-12] MEDS: LABETALOL HCL (100MG) 100 MG TABLET GT SCH ×2 (09:07→20:54)
[2016-05-12] MEDS: HYDROGEN PEROXIDE 480 ML BOTTLE TP SCH ×2 (09:07→21:43)
[2016-05-12] MEDS: VITAMINS A AND D 56.7 GM TUBE TP SCH ×2 (09:07→21:43)
[2016-05-12] MEDS: Z GUARD REMEDY 4 OZ OINT TP SCH ×2 (09:07→21:43)
[2016-05-12] MEDS: ASCORBIC ACID 500 MG TABLET GT SCH (09:07)
[2016-05-12] MEDS: ZINC OXIDE 56.7 GM TUBE TP SCH (09:07)
[2016-05-12] MEDS: HYDROGEL DRESSING 90 GM TUBE TP SCH ×2 (09:07→21:42)
--- NOTE | 2016-05-12 12:55 | NUR ---
Reported CBC and BMP result done today 05/12/[address] Juni Calderon, NNO given at this time.
[2016-05-12] MEDS: hydrALAZINE HCL 10 MG TABLET GT PRN (15:12)
--- NOTE | 2016-05-12 16:00 | NUR ---
Seen and examined by Becca Smith NP and seen result of CBC and BMP result NNO given.
[2016-05-12] MEDS: ACETAMINOPHEN 650 MG/20 ML UDC- FOR SA PATIENTS ONLY GT PRN (16:18)
--- NOTE | 2016-05-12 17:30 | NUR ---
Notified Reyna, daughter of the lab result today, WBC 10.6, Hbg 11.1, Na 128, BUN 20, Cl 92 Glu 135. Resident with low grade 99.0 cooling measure done. Requested if MD can order UA and C/S as she might be developing an infection. Will notify .
--- NOTE | 2016-05-12 18:35 | NUR ---
Received an order from Dr. Juni Calderon for UA and CS. orders noted and carried out. Daughter, Reyna notified of new order.
[2016-05-12 20:48] LABS: APPEARANCE,URINE CLEAR (CLEAR); BILIRUBIN,URINE NEGATIVE (NEGATIVE); BLOOD, URINE NEGATIVE Ery/uL (NEGATIVE); COLOR,URINE YELLOW (YELLOW); KETONES,URINE NEGATIVE (NEGATIVE); LEUKOCYTE ESTERASE ,URINE NEGATIVE (NEGATIVE); NITRITE, URINE NEGATIVE (NEGATIVE); PROTEIN,URINE NEGATIVE (NEGATIVE); UGLUCOSE NEGATIVE (NEGATIVE); UROBILINOGEN,URINE 0.2 EU/dL (0.2)
[2016-05-13] VITALS (8 sets, daily range): BP systolic 117–156; BP diastolic 61–80
[2016-05-13] MEDS: BLOOD SUGAR DIAGNOSTIC 1 EACH STRIP IN SCH ×5 (00:32→23:39)
[2016-05-13] MEDS: INSULIN REGULAR, HUMAN 100 UNIT/ML 3 ML VIAL SQ PRN ×4 (00:33→17:50)
[2016-05-13] MEDS: IPRATROPIUM NEB FS 0.5 MG/2.5 ML AMPUL.NEB IH SCH ×4 (01:39→19:42)
[2016-05-13] MEDS: ALBUTEROL FS 2.5 MG/0.5 ML VIAL.NEB NEB SCH ×4 (01:39→19:42)
[2016-05-13] MEDS: LEVOTHYROXINE SODIUM 25 MCG TABLET GT SCH (05:53)
[2016-05-13] MEDS: PANTOPRAZOLE 40 MG/PACK PACK GT SCH (05:53)
--- NOTE | 2016-05-13 05:53 | NUR ---
Urine collected last night for culture,pending result.Noted with low grade temp of 99.0,cooling measures rendered,will continue to monitor.
[2016-05-13] MEDS: POLYVINYL ALCOHOL 15 ML BOTTLE EACHEYE SCH (08:45)
[2016-05-13] MEDS: DOCUSATE SODIUM LIQ 100 MG/10 ML UDC GT SCH (08:45)
[2016-05-13] MEDS: LACTOBACILLUS RHAMNOSUS GG 1 EACH CAP.SPRINK GT SCH (08:45)
[2016-05-13] MEDS: LEVETIRACETAM SOL (5 ML) 100 MG/ML UDC GT SCH ×2 (08:46→20:39)
[2016-05-13] MEDS: VALSARTAN 80 MG TABLET GT SCH ×2 (08:46→20:32)
[2016-05-13] MEDS: MULTIVITAMINS,THERAGRAN 1 UDTAB TABLET GT SCH (08:46)
[2016-05-13] MEDS: LABETALOL HCL (100MG) 100 MG TABLET GT SCH ×2 (08:46→20:44)
[2016-05-13] MEDS: HYDROGEL DRESSING 90 GM TUBE TP SCH ×2 (08:46→21:50)
[2016-05-13] MEDS: ASCORBIC ACID 500 MG TABLET GT SCH (08:46)
[2016-05-13] MEDS: CHOLESTYRAMINE/ASPARTAME 4 G/PKT PACKET GT SCH (08:46)
[2016-05-13] MEDS: OMEGA GT SCH ×3 (08:46→17:25)
[2016-05-13] MEDS: VITAMINS A AND D 56.7 GM TUBE TP SCH ×2 (08:47→21:50)
[2016-05-13] MEDS: HYDROGEN PEROXIDE 480 ML BOTTLE TP SCH ×2 (08:47→21:50)
[2016-05-13] MEDS: Z GUARD REMEDY 4 OZ OINT TP SCH ×2 (08:47→21:50)
[2016-05-13] MEDS: ZINC OXIDE 56.7 GM TUBE TP SCH (08:47)
[2016-05-13] MEDS: hydrALAZINE HCL 10 MG TABLET GT PRN ×2 (11:40→17:25)
[2016-05-13] MEDS: GLYTROL 1,000 ML BAG GT PRN (11:41)
--- NOTE | 2016-05-13 17:50 | NUR ---
Resident's daughter Reyna segovia, informed of UA and pending urine culture result showing no growth. She stated that might as well inform her other sibling Sky about the result so she knows that she does not have an infection at this time.
[2016-05-14] VITALS (8 sets, daily range): BP systolic 101–126; BP diastolic 50–66
[2016-05-14] MEDS: IPRATROPIUM NEB FS 0.5 MG/2.5 ML AMPUL.NEB IH SCH ×4 (02:09→19:29)
[2016-05-14] MEDS: ALBUTEROL FS 2.5 MG/0.5 ML VIAL.NEB NEB SCH ×4 (02:09→19:29)
[2016-05-14] MEDS: LEVOTHYROXINE SODIUM 25 MCG TABLET GT SCH (05:23)
[2016-05-14] MEDS: PANTOPRAZOLE 40 MG/PACK PACK GT SCH (05:23)
[2016-05-14] MEDS: BLOOD SUGAR DIAGNOSTIC 1 EACH STRIP IN SCH ×4 (06:32→23:55)
[2016-05-14] MEDS: DOCUSATE SODIUM LIQ 100 MG/10 ML UDC GT SCH (08:17)
[2016-05-14] MEDS: POLYVINYL ALCOHOL 15 ML BOTTLE EACHEYE SCH (08:17)
[2016-05-14] MEDS: VALSARTAN 80 MG TABLET GT SCH ×2 (08:18→20:39)
[2016-05-14] MEDS: LEVETIRACETAM SOL (5 ML) 100 MG/ML UDC GT SCH ×2 (08:18→20:39)
[2016-05-14] MEDS: CHOLESTYRAMINE/ASPARTAME 4 G/PKT PACKET GT SCH (08:18)
[2016-05-14] MEDS: OMEGA GT SCH ×3 (08:18→17:18)
[2016-05-14] MEDS: LACTOBACILLUS RHAMNOSUS GG 1 EACH CAP.SPRINK GT SCH (08:18)
[2016-05-14] MEDS: VITAMINS A AND D 56.7 GM TUBE TP SCH ×2 (08:19→20:40)
[2016-05-14] MEDS: HYDROGEL DRESSING 90 GM TUBE TP SCH ×2 (08:19→20:40)
[2016-05-14] MEDS: HYDROGEN PEROXIDE 480 ML BOTTLE TP SCH ×2 (08:19→20:40)
[2016-05-14] MEDS: MULTIVITAMINS,THERAGRAN 1 UDTAB TABLET GT SCH (08:19)
[2016-05-14] MEDS: ZINC OXIDE 56.7 GM TUBE TP SCH (08:19)
[2016-05-14] MEDS: ASCORBIC ACID 500 MG TABLET GT SCH (08:19)
[2016-05-14] MEDS: Z GUARD REMEDY 4 OZ OINT TP SCH ×2 (08:19→20:40)
[2016-05-14] MEDS: LABETALOL HCL (100MG) 100 MG TABLET GT SCH ×2 (08:19→20:39)
[2016-05-14] MEDS: GLYTROL 1,000 ML BAG GT PRN ×2 (09:46→20:39)
[2016-05-14] MEDS: hydrALAZINE HCL 10 MG TABLET GT PRN ×2 (12:17→17:19)
[2016-05-14] MEDS: INSULIN REGULAR, HUMAN 100 UNIT/ML 3 ML VIAL SQ PRN ×3 (12:18→23:55)
[2016-05-15] VITALS (8 sets, daily range): BP systolic 102–156; BP diastolic 50–90
[2016-05-15] MEDS: ALBUTEROL FS 2.5 MG/0.5 ML VIAL.NEB NEB SCH ×4 (02:13→19:30)
[2016-05-15] MEDS: IPRATROPIUM NEB FS 0.5 MG/2.5 ML AMPUL.NEB IH SCH ×4 (02:13→19:30)
[2016-05-15] MEDS: BLOOD SUGAR DIAGNOSTIC 1 EACH STRIP IN SCH ×3 (05:24→18:16)
[2016-05-15] MEDS: LEVOTHYROXINE SODIUM 25 MCG TABLET GT SCH (05:24)
[2016-05-15] MEDS: PANTOPRAZOLE 40 MG/PACK PACK GT SCH (05:24)
[2016-05-15] MEDS: INSULIN REGULAR, HUMAN 100 UNIT/ML 3 ML VIAL SQ PRN ×3 (05:24→18:17)
[2016-05-15] MEDS: OMEGA GT SCH ×3 (09:00→17:09)
[2016-05-15] MEDS: MULTIVITAMINS,THERAGRAN 1 UDTAB TABLET GT SCH (09:00)
[2016-05-15] MEDS: LABETALOL HCL (100MG) 100 MG TABLET GT SCH ×2 (09:00→20:30)
[2016-05-15] MEDS: LACTOBACILLUS RHAMNOSUS GG 1 EACH CAP.SPRINK GT SCH (09:00)
[2016-05-15] MEDS: ASCORBIC ACID 500 MG TABLET GT SCH (09:00)
[2016-05-15] MEDS: VITAMINS A AND D 56.7 GM TUBE TP SCH ×2 (09:00→20:31)
[2016-05-15] MEDS: VALSARTAN 80 MG TABLET GT SCH ×2 (09:00→20:30)
[2016-05-15] MEDS: POLYVINYL ALCOHOL 15 ML BOTTLE EACHEYE SCH (09:00)
[2016-05-15] MEDS: Z GUARD REMEDY 4 OZ OINT TP SCH ×2 (09:00→20:31)
[2016-05-15] MEDS: CHOLESTYRAMINE/ASPARTAME 4 G/PKT PACKET GT SCH (09:00)
[2016-05-15] MEDS: DOCUSATE SODIUM LIQ 100 MG/10 ML UDC GT SCH (09:00)
[2016-05-15] MEDS: HYDROGEN PEROXIDE 480 ML BOTTLE TP SCH ×2 (09:00→20:30)
[2016-05-15] MEDS: ZINC OXIDE 56.7 GM TUBE TP SCH (09:00)
[2016-05-15] MEDS: HYDROGEL DRESSING 90 GM TUBE TP SCH ×2 (09:00→20:30)
[2016-05-15] MEDS: LEVETIRACETAM SOL (5 ML) 100 MG/ML UDC GT SCH ×2 (09:00→20:26)
[2016-05-15] MEDS: hydrALAZINE HCL 10 MG TABLET GT PRN (20:26)
--- NOTE | 2016-05-15 21:00 | NUR ---
PTS BP IS 142/89, GIVEN HER PRN MEDS HYDRALAZINE 10MG, AFTER AN HR PT BP WAS DEBBIE =122/62, CONTINUE TO MONITOR PTS BP.
[2016-05-16] MEDS: BLOOD SUGAR DIAGNOSTIC 1 EACH STRIP IN SCH ×4 (00:15→17:33)
[2016-05-16 01:00] VITALS: BP 124/76
[2016-05-16] MEDS: IPRATROPIUM NEB FS 0.5 MG/2.5 ML AMPUL.NEB IH SCH ×4 (01:31→20:28)
[2016-05-16] MEDS: ALBUTEROL FS 2.5 MG/0.5 ML VIAL.NEB NEB SCH ×4 (01:31→20:28)
[2016-05-16 05:05] VITALS: BP 114/68
[2016-05-16] MEDS: LEVOTHYROXINE SODIUM 25 MCG TABLET GT SCH (05:35)
[2016-05-16] MEDS: PANTOPRAZOLE 40 MG/PACK PACK GT SCH (05:35)
[2016-05-16 07:37] VITALS: BP 144/69
--- NOTE | 2016-05-16 07:59 | NUR ---
PTS BP IS 144/69, PT IS GIVEN HER PRN MEDS HYDRALAZINE 10 MG, RE CK PTS BP AFTER AN HOUR. Addendum: 05/16/16 at 0856 by ENEDELIA ALBA LVN @0900 PTS BP WAS RE CK IT WAS 124/53, CONTINUE TO MONITOR PTS BP.
[2016-05-16] MEDS: hydrALAZINE HCL 10 MG TABLET GT PRN (08:01)
[2016-05-16] MEDS: LEVETIRACETAM SOL (5 ML) 100 MG/ML UDC GT SCH ×2 (08:01→20:22)
[2016-05-16] MEDS: CHOLESTYRAMINE/ASPARTAME 4 G/PKT PACKET GT SCH (08:02)
[2016-05-16] MEDS: LABETALOL HCL (100MG) 100 MG TABLET GT SCH ×2 (08:02→20:23)
[2016-05-16] MEDS: MULTIVITAMINS,THERAGRAN 1 UDTAB TABLET GT SCH (08:03)
[2016-05-16] MEDS: HYDROGEL DRESSING 90 GM TUBE TP SCH ×2 (08:03→20:24)
[2016-05-16] MEDS: OMEGA GT SCH ×3 (08:03→17:33)
[2016-05-16] MEDS: DOCUSATE SODIUM LIQ 100 MG/10 ML UDC GT SCH (08:03)
[2016-05-16] MEDS: ASCORBIC ACID 500 MG TABLET GT SCH (08:03)
[2016-05-16] MEDS: LACTOBACILLUS RHAMNOSUS GG 1 EACH CAP.SPRINK GT SCH (08:03)
[2016-05-16] MEDS: POLYVINYL ALCOHOL 15 ML BOTTLE EACHEYE SCH (08:03)
[2016-05-16] MEDS: VALSARTAN 80 MG TABLET GT SCH ×2 (08:03→20:23)
[2016-05-16] MEDS: Z GUARD REMEDY 4 OZ OINT TP SCH ×2 (08:04→20:24)
[2016-05-16] MEDS: ZINC OXIDE 56.7 GM TUBE TP SCH (08:04)
[2016-05-16] MEDS: HYDROGEN PEROXIDE 480 ML BOTTLE TP SCH ×2 (08:04→20:24)
[2016-05-16] MEDS: VITAMINS A AND D 56.7 GM TUBE TP SCH ×2 (08:04→20:24)
[2016-05-16] MEDS: INSULIN REGULAR, HUMAN 100 UNIT/ML 3 ML VIAL SQ PRN ×2 (12:44→17:34)
[2016-05-16] MEDS: GLYTROL 1,000 ML BAG GT PRN (17:40)
[2016-05-16 17:51] VITALS: BP 134/62
[2016-05-16 19:50] VITALS: BP 131/81
[2016-05-16 21:01] VITALS: BP 131/81
[2016-05-17] VITALS (8 sets, daily range): BP systolic 115–139; BP diastolic 54–72
[2016-05-17] MEDS: BLOOD SUGAR DIAGNOSTIC 1 EACH STRIP IN SCH ×5 (00:11→23:41)
[2016-05-17] MEDS: IPRATROPIUM NEB FS 0.5 MG/2.5 ML AMPUL.NEB IH SCH ×4 (02:25→20:02)
[2016-05-17] MEDS: ALBUTEROL FS 2.5 MG/0.5 ML VIAL.NEB NEB SCH ×4 (02:25→20:02)
[2016-05-17] MEDS: PANTOPRAZOLE 40 MG/PACK PACK GT SCH (05:27)
[2016-05-17] MEDS: LEVOTHYROXINE SODIUM 25 MCG TABLET GT SCH (05:27)
--- NOTE | 2016-05-17 07:45 | NUR ---
RN OPENING RECEIVED PT STABLE ALL SETTINGS ORDERED. NO RESIDUAL G TUBE AND FLUSHED/AUSCULTATED. PT FLACC 0 AND NO S/S DIFFICULTY BREATHING OR SOB. PT LEFT WITH CALL LIGHT IN REACH, BED LOWERED AND LOCKED, RAILS UPX3 FOR SAFETY AND WILL MONITOR PRN
[2016-05-17] MEDS: POLYVINYL ALCOHOL 15 ML BOTTLE EACHEYE SCH (08:09)
[2016-05-17] MEDS: OMEGA GT SCH ×3 (08:12→17:27)
[2016-05-17] MEDS: LEVETIRACETAM SOL (5 ML) 100 MG/ML UDC GT SCH ×2 (08:16→20:24)
[2016-05-17] MEDS: LACTOBACILLUS RHAMNOSUS GG 1 EACH CAP.SPRINK GT SCH (08:16)
[2016-05-17] MEDS: CHOLESTYRAMINE/ASPARTAME 4 G/PKT PACKET GT SCH (08:16)
[2016-05-17] MEDS: VALSARTAN 80 MG TABLET GT SCH ×2 (08:17→20:25)
[2016-05-17] MEDS: LABETALOL HCL (100MG) 100 MG TABLET GT SCH ×2 (08:18→20:24)
[2016-05-17] MEDS: DOCUSATE SODIUM LIQ 100 MG/10 ML UDC GT SCH (08:31)
[2016-05-17] MEDS: ASCORBIC ACID 500 MG TABLET GT SCH (08:32)
[2016-05-17] MEDS: MULTIVITAMINS,THERAGRAN 1 UDTAB TABLET GT SCH (08:32)
[2016-05-17] MEDS: HYDROGEL DRESSING 90 GM TUBE TP SCH ×2 (09:04→20:25)
[2016-05-17] MEDS: HYDROGEN PEROXIDE 480 ML BOTTLE TP SCH ×2 (09:04→20:25)
[2016-05-17] MEDS: VITAMINS A AND D 56.7 GM TUBE TP SCH ×2 (09:04→20:25)
[2016-05-17] MEDS: Z GUARD REMEDY 4 OZ OINT TP SCH ×2 (09:04→20:25)
[2016-05-17] MEDS: ZINC OXIDE 56.7 GM TUBE TP SCH (09:04)
--- NOTE | 2016-05-17 13:30 | NUR ---
RN NOTES 20HRS STOPPED TUBE FEEDING. WILL RESUME IN 4 HOURS. PT STABLE
[2016-05-17] MEDS: GLYTROL 1,000 ML BAG GT PRN (17:28)
--- NOTE | 2016-05-17 17:30 | NUR ---
RN NOTES RESUMING PT FEEDING. NEW BAG/TUBING
--- NOTE | 2016-05-17 19:05 | NUR ---
RN CLOSING PT STABLE, G TUBE CARE, TRACH CARE COMPLETED PRN. SUCTIONED PRN, TURNED Q2H, SKIN CARE PRN SOILING. NO CHANGES PATIENT STABLE. FEEDING RUNNING ORDERED AND TRACH SETTINGS ORDERED
[2016-05-18] VITALS (7 sets, daily range): BP systolic 103–126; BP diastolic 51–67
[2016-05-18] MEDS: IPRATROPIUM NEB FS 0.5 MG/2.5 ML AMPUL.NEB IH SCH ×4 (01:06→19:13)
[2016-05-18] MEDS: ALBUTEROL FS 2.5 MG/0.5 ML VIAL.NEB NEB SCH ×4 (01:06→19:13)
[2016-05-18] MEDS: PANTOPRAZOLE 40 MG/PACK PACK GT SCH (05:46)
[2016-05-18] MEDS: BLOOD SUGAR DIAGNOSTIC 1 EACH STRIP IN SCH ×4 (05:46→23:15)
[2016-05-18] MEDS: LEVOTHYROXINE SODIUM 25 MCG TABLET GT SCH (05:46)
[2016-05-18] MEDS: VITAMINS A AND D 56.7 GM TUBE TP SCH ×2 (09:00→20:42)
[2016-05-18] MEDS: HYDROGEN PEROXIDE 480 ML BOTTLE TP SCH ×2 (09:00→20:42)
[2016-05-18] MEDS: HYDROGEL DRESSING 90 GM TUBE TP SCH ×2 (09:00→20:42)
[2016-05-18] MEDS: Z GUARD REMEDY 4 OZ OINT TP SCH ×2 (09:00→20:42)
[2016-05-18] MEDS: ZINC OXIDE 56.7 GM TUBE TP SCH (09:00)
[2016-05-18] MEDS: POLYVINYL ALCOHOL 15 ML BOTTLE EACHEYE SCH (09:31)
[2016-05-18] MEDS: DOCUSATE SODIUM LIQ 100 MG/10 ML UDC GT SCH (09:31)
[2016-05-18] MEDS: LACTOBACILLUS RHAMNOSUS GG 1 EACH CAP.SPRINK GT SCH (09:31)
[2016-05-18] MEDS: CHOLESTYRAMINE/ASPARTAME 4 G/PKT PACKET GT SCH (09:32)
[2016-05-18] MEDS: LEVETIRACETAM SOL (5 ML) 100 MG/ML UDC GT SCH ×2 (09:32→20:42)
[2016-05-18] MEDS: OMEGA GT SCH ×3 (09:32→17:36)
[2016-05-18] MEDS: LABETALOL HCL (100MG) 100 MG TABLET GT SCH ×2 (09:32→20:42)
[2016-05-18] MEDS: MULTIVITAMINS,THERAGRAN 1 UDTAB TABLET GT SCH (09:32)
[2016-05-18] MEDS: ASCORBIC ACID 500 MG TABLET GT SCH (09:32)
[2016-05-18] MEDS: VALSARTAN 80 MG TABLET GT SCH ×2 (09:32→20:41)
[2016-05-18] MEDS: GLYTROL 1,000 ML BAG GT PRN ×2 (09:33→23:15)
--- NOTE | 2016-05-18 10:00 | NUR ---
Received a call from resident's daughter Sky, she stated that they are considering resuming some of her supplements however according to Sky, some of the supplements contain properties of caffeine that may not be good for her. She also wants to know whether her stool is still loose that is causing perineal excoriation. Informed Sky that there is an existing treatment in the perianal area with Z guard. She stated that she will bring Desitin if pharmacy cannot provide. She will inform staff and MD of the supplements that they would like to resume after they read the information about each of the supplements.
[2016-05-18] MEDS: hydrALAZINE HCL 10 MG TABLET GT PRN ×2 (12:29→17:37)
[2016-05-18] MEDS: INSULIN REGULAR, HUMAN 100 UNIT/ML 3 ML VIAL SQ PRN ×3 (12:29→23:16)
[2016-05-19] VITALS (8 sets, daily range): BP systolic 98–135; BP diastolic 52–71
[2016-05-19] MEDS: IPRATROPIUM NEB FS 0.5 MG/2.5 ML AMPUL.NEB IH SCH ×4 (02:15→20:15)
[2016-05-19] MEDS: ALBUTEROL FS 2.5 MG/0.5 ML VIAL.NEB NEB SCH ×4 (02:15→20:15)
[2016-05-19] MEDS: BLOOD SUGAR DIAGNOSTIC 1 EACH STRIP IN SCH ×4 (05:21→23:37)
[2016-05-19] MEDS: LEVOTHYROXINE SODIUM 25 MCG TABLET GT SCH (05:21)
[2016-05-19] MEDS: PANTOPRAZOLE 40 MG/PACK PACK GT SCH (05:21)
[2016-05-19] MEDS: INSULIN REGULAR, HUMAN 100 UNIT/ML 3 ML VIAL SQ PRN ×2 (05:22→23:37)
[2016-05-19] MEDS: POLYVINYL ALCOHOL 15 ML BOTTLE EACHEYE SCH (09:00)
[2016-05-19] MEDS: CHOLESTYRAMINE/ASPARTAME 4 G/PKT PACKET GT SCH (09:39)
[2016-05-19] MEDS: DOCUSATE SODIUM LIQ 100 MG/10 ML UDC GT SCH (10:00)
[2016-05-19] MEDS: HYDROGEN PEROXIDE 480 ML BOTTLE TP SCH ×2 (10:00→20:36)
[2016-05-19] MEDS: ZINC OXIDE 56.7 GM TUBE TP SCH (10:00)
[2016-05-19] MEDS: HYDROGEL DRESSING 90 GM TUBE TP SCH ×2 (10:00→20:36)
[2016-05-19] MEDS: LEVETIRACETAM SOL (5 ML) 100 MG/ML UDC GT SCH ×2 (10:00→20:36)
[2016-05-19] MEDS: OMEGA GT SCH ×3 (10:00→17:19)
[2016-05-19] MEDS: VALSARTAN 80 MG TABLET GT SCH ×2 (10:00→20:36)
[2016-05-19] MEDS: ASCORBIC ACID 500 MG TABLET GT SCH (10:00)
[2016-05-19] MEDS: MULTIVITAMINS,THERAGRAN 1 UDTAB TABLET GT SCH (10:00)
[2016-05-19] MEDS: LABETALOL HCL (100MG) 100 MG TABLET GT SCH ×2 (10:00→20:36)
[2016-05-19] MEDS: Z GUARD REMEDY 4 OZ OINT TP SCH ×2 (10:00→20:36)
[2016-05-19] MEDS: LACTOBACILLUS RHAMNOSUS GG 1 EACH CAP.SPRINK GT SCH (10:00)
[2016-05-19] MEDS: VITAMINS A AND D 56.7 GM TUBE TP SCH ×2 (10:00→20:36)
[2016-05-19] MEDS: GLYTROL 1,000 ML BAG GT PRN (15:03)
[2016-05-20] VITALS (8 sets, daily range): BP systolic 104–131; BP diastolic 50–74
[2016-05-20] MEDS: hydrALAZINE HCL 10 MG TABLET GT PRN ×2 (00:55→05:10)
[2016-05-20] MEDS: ALBUTEROL FS 2.5 MG/0.5 ML VIAL.NEB NEB SCH ×4 (01:44→20:54)
[2016-05-20] MEDS: IPRATROPIUM NEB FS 0.5 MG/2.5 ML AMPUL.NEB IH SCH ×4 (01:44→20:53)
[2016-05-20] MEDS: Z GUARD REMEDY 4 OZ OINT TP SCH ×2 (03:00→09:54)
[2016-05-20] MEDS: VITAMINS A AND D 56.7 GM TUBE TP SCH ×2 (03:00→09:54)
[2016-05-20] MEDS: BLOOD SUGAR DIAGNOSTIC 1 EACH STRIP IN SCH ×3 (05:10→17:17)
[2016-05-20] MEDS: PANTOPRAZOLE 40 MG/PACK PACK GT SCH (05:10)
[2016-05-20] MEDS: LEVOTHYROXINE SODIUM 25 MCG TABLET GT SCH (05:10)
[2016-05-20] MEDS: GLYTROL 1,000 ML BAG GT PRN (05:11)
[2016-05-20] MEDS: POLYVINYL ALCOHOL 15 ML BOTTLE EACHEYE SCH (08:57)
[2016-05-20] MEDS: CHOLESTYRAMINE/ASPARTAME 4 G/PKT PACKET GT SCH (08:57)
[2016-05-20] MEDS: ZINC OXIDE 30 GM TUBE TP SCH ×2 (09:00→23:00)
[2016-05-20] MEDS: DOCUSATE SODIUM LIQ 100 MG/10 ML UDC GT SCH (09:53)
[2016-05-20] MEDS: LACTOBACILLUS RHAMNOSUS GG 1 EACH CAP.SPRINK GT SCH (09:53)
[2016-05-20] MEDS: HYDROGEN PEROXIDE 480 ML BOTTLE TP SCH (09:54)
[2016-05-20] MEDS: HYDROGEL DRESSING 90 GM TUBE TP SCH ×2 (09:54→22:00)
[2016-05-20] MEDS: LEVETIRACETAM SOL (5 ML) 100 MG/ML UDC GT SCH ×2 (09:54→20:34)
[2016-05-20] MEDS: ASCORBIC ACID 500 MG TABLET GT SCH (09:54)
[2016-05-20] MEDS: LABETALOL HCL (100MG) 100 MG TABLET GT SCH ×2 (09:54→20:37)
[2016-05-20] MEDS: OMEGA GT SCH ×3 (09:54→16:50)
[2016-05-20] MEDS: VALSARTAN 80 MG TABLET GT SCH ×2 (09:54→20:27)
[2016-05-20] MEDS: ZINC OXIDE 56.7 GM TUBE TP SCH (09:54)
[2016-05-20] MEDS: MULTIVITAMINS,THERAGRAN 1 UDTAB TABLET GT SCH (09:54)
[2016-05-20] MEDS ORDERED: ZINC OXIDE 30 GM TUBE TP PRN (12:00)
[2016-05-20] MEDS: ONDANSETRON 4 MG TAB.RAPDIS GT PRN (13:32)
[2016-05-21] VITALS (10 sets, daily range): BP systolic 97–139; BP diastolic 52–81
[2016-05-21] MEDS: BLOOD SUGAR DIAGNOSTIC 1 EACH STRIP IN SCH ×5 (00:21→23:11)
[2016-05-21] MEDS: INSULIN REGULAR, HUMAN 100 UNIT/ML 3 ML VIAL SQ PRN ×2 (00:24→23:12)
[2016-05-21] MEDS: ALBUTEROL FS 2.5 MG/0.5 ML VIAL.NEB NEB SCH ×4 (01:36→20:07)
[2016-05-21] MEDS: IPRATROPIUM NEB FS 0.5 MG/2.5 ML AMPUL.NEB IH SCH ×4 (01:36→20:07)
[2016-05-21] MEDS: HYDROGEN PEROXIDE 480 ML BOTTLE TP SCH ×3 (03:00→20:12)
[2016-05-21] MEDS: PANTOPRAZOLE 40 MG/PACK PACK GT SCH (06:09)
[2016-05-21] MEDS: LEVOTHYROXINE SODIUM 25 MCG TABLET GT SCH (06:09)
[2016-05-21] MEDS: CHOLESTYRAMINE/ASPARTAME 4 G/PKT PACKET GT SCH (08:18)
[2016-05-21] MEDS: VALSARTAN 80 MG TABLET GT SCH ×2 (09:00→20:07)
[2016-05-21] MEDS: LACTOBACILLUS RHAMNOSUS GG 1 EACH CAP.SPRINK GT SCH (09:00)
[2016-05-21] MEDS: POLYVINYL ALCOHOL 15 ML BOTTLE EACHEYE SCH (09:00)
[2016-05-21] MEDS: LEVETIRACETAM SOL (5 ML) 100 MG/ML UDC GT SCH ×2 (09:00→20:11)
[2016-05-21] MEDS: Z GUARD REMEDY 4 OZ OINT TP SCH ×2 (09:00→20:12)
[2016-05-21] MEDS: ZINC OXIDE 30 GM TUBE TP SCH ×2 (09:00→20:12)
[2016-05-21] MEDS: ASCORBIC ACID 500 MG TABLET GT SCH (09:00)
[2016-05-21] MEDS: OMEGA GT SCH ×3 (09:00→17:26)
[2016-05-21] MEDS: LABETALOL HCL (100MG) 100 MG TABLET GT SCH ×2 (09:00→20:11)
[2016-05-21] MEDS: DOCUSATE SODIUM LIQ 100 MG/10 ML UDC GT SCH (09:00)
[2016-05-21] MEDS: MULTIVITAMINS,THERAGRAN 1 UDTAB TABLET GT SCH (09:00)
[2016-05-21] MEDS: ZINC OXIDE 56.7 GM TUBE TP SCH (09:00)
--- NOTE | 2016-05-21 10:41 | NUR ---
Spoke with Reyna, daughter notified her that her 2 other siblings (Maddy and Marah) were in this AM and they told the nurse assigned to patient that artificial tears does not work for their mother and they are requesting to use Refresh Tears instead. Informed Reyna of her siblings request but this may not be covered by insurance and if not will they be willing to provide it. According to Reyna don't do anything yet (ie obtaining order from MD) and will send text message to her siblings and will let me know.
[2016-05-22 01:08] VITALS: BP 100/65
[2016-05-22] MEDS: GLYTROL 1,000 ML BAG GT PRN ×2 (02:12→19:11)
[2016-05-22] MEDS: IPRATROPIUM NEB FS 0.5 MG/2.5 ML AMPUL.NEB IH SCH ×4 (02:50→19:46)
[2016-05-22] MEDS: ALBUTEROL FS 2.5 MG/0.5 ML VIAL.NEB NEB SCH ×4 (02:50→19:46)
[2016-05-22 05:08] VITALS: BP 97/54
[2016-05-22] MEDS: LEVOTHYROXINE SODIUM 25 MCG TABLET GT SCH (05:09)
[2016-05-22] MEDS: PANTOPRAZOLE 40 MG/PACK PACK GT SCH (05:09)
[2016-05-22] MEDS: BLOOD SUGAR DIAGNOSTIC 1 EACH STRIP IN SCH ×4 (05:09→23:29)
[2016-05-22] MEDS: INSULIN REGULAR, HUMAN 100 UNIT/ML 3 ML VIAL SQ PRN ×3 (05:10→17:58)
[2016-05-22] MEDS: hydrALAZINE HCL 10 MG TABLET GT PRN (05:10)
[2016-05-22 08:10] VITALS: BP 131/64
[2016-05-22] MEDS: HYDROGEN PEROXIDE 480 ML BOTTLE TP SCH ×2 (09:00→20:59)
[2016-05-22] MEDS: ZINC OXIDE 30 GM TUBE TP SCH ×2 (09:00→20:59)
[2016-05-22] MEDS: Z GUARD REMEDY 4 OZ OINT TP SCH ×2 (09:00→20:59)
[2016-05-22] MEDS: ZINC OXIDE 56.7 GM TUBE TP SCH (09:00)
[2016-05-22] MEDS: LACTOBACILLUS RHAMNOSUS GG 1 EACH CAP.SPRINK GT SCH (09:05)
[2016-05-22] MEDS: POLYVINYL ALCOHOL 15 ML BOTTLE EACHEYE SCH (09:05)
[2016-05-22] MEDS: DOCUSATE SODIUM LIQ 100 MG/10 ML UDC GT SCH (09:05)
[2016-05-22] MEDS: VALSARTAN 80 MG TABLET GT SCH ×2 (09:11→20:58)
[2016-05-22] MEDS: OMEGA GT SCH ×3 (09:11→17:56)
[2016-05-22] MEDS: MULTIVITAMINS,THERAGRAN 1 UDTAB TABLET GT SCH (09:12)
[2016-05-22] MEDS: LEVETIRACETAM SOL (5 ML) 100 MG/ML UDC GT SCH ×2 (09:12→20:59)
[2016-05-22] MEDS: CHOLESTYRAMINE/ASPARTAME 4 G/PKT PACKET GT SCH (09:12)
[2016-05-22] MEDS: LABETALOL HCL (100MG) 100 MG TABLET GT SCH ×2 (09:12→20:59)
[2016-05-22] MEDS: ASCORBIC ACID 500 MG TABLET GT SCH (09:13)
--- NOTE | 2016-05-22 09:59 | NUR ---
Resident's daughters Marah and Maddy visiting and they expressed willingness to provide Refresh Tears for their mother instead of using artificial tears provided by the hospital. According to Marah she will be back on Monday and will bring the medications. Will obtain order from MD once medication is available. Reyna notified and she is in agreement. During this conversation that it was mentioned to family to refrain from putting a lot of chairs inside the room making it difficult to move around in case of emergency. They understand and said that we must explain this to their older sister Sky because she does not listen to them. Will endorse to explain to Sky when she comes. It was also mentioned that overhead table should be reserved for nurses use and refrain from putting personal items that will get contaminated /dirty. The bedside table can be use for that purpose. Marah and Maddy in agreement. At this time resident stable, no vomiting episode.
[2016-05-22 18:00] VITALS: BP 131/59
[2016-05-22 20:00] VITALS: BP 120/56
[2016-05-22 21:03] VITALS: BP 124/70
[2016-05-23] VITALS (7 sets, daily range): BP systolic 118–134; BP diastolic 54–86
[2016-05-23] MEDS: IPRATROPIUM NEB FS 0.5 MG/2.5 ML AMPUL.NEB IH SCH ×4 (01:23→19:18)
[2016-05-23] MEDS: ALBUTEROL FS 2.5 MG/0.5 ML VIAL.NEB NEB SCH ×4 (01:23→19:18)
[2016-05-23] MEDS: LEVOTHYROXINE SODIUM 25 MCG TABLET GT SCH (05:23)
[2016-05-23] MEDS: PANTOPRAZOLE 40 MG/PACK PACK GT SCH (05:23)
[2016-05-23] MEDS: BLOOD SUGAR DIAGNOSTIC 1 EACH STRIP IN SCH ×3 (06:04→18:34)
[2016-05-23] MEDS: POLYVINYL ALCOHOL 15 ML BOTTLE EACHEYE SCH (08:39)
[2016-05-23] MEDS: DOCUSATE SODIUM LIQ 100 MG/10 ML UDC GT SCH (08:40)
[2016-05-23] MEDS: LACTOBACILLUS RHAMNOSUS GG 1 EACH CAP.SPRINK GT SCH (08:40)
[2016-05-23] MEDS: VALSARTAN 80 MG TABLET GT SCH ×2 (08:40→21:11)
[2016-05-23] MEDS: LEVETIRACETAM SOL (5 ML) 100 MG/ML UDC GT SCH ×2 (08:41→21:11)
[2016-05-23] MEDS: OMEGA GT SCH ×3 (08:41→17:31)
[2016-05-23] MEDS: CHOLESTYRAMINE/ASPARTAME 4 G/PKT PACKET GT SCH (08:41)
[2016-05-23] MEDS: ASCORBIC ACID 500 MG TABLET GT SCH (08:42)
[2016-05-23] MEDS: LABETALOL HCL (100MG) 100 MG TABLET GT SCH ×2 (08:42→21:11)
[2016-05-23] MEDS: MULTIVITAMINS,THERAGRAN 1 UDTAB TABLET GT SCH (08:42)
[2016-05-23] MEDS: HYDROGEN PEROXIDE 480 ML BOTTLE TP SCH ×2 (09:00→21:11)
[2016-05-23] MEDS: ZINC OXIDE 30 GM TUBE TP SCH ×2 (09:00→21:12)
[2016-05-23] MEDS: ZINC OXIDE 56.7 GM TUBE TP SCH (09:00)
[2016-05-23] MEDS: Z GUARD REMEDY 4 OZ OINT TP SCH ×2 (09:00→21:12)
[2016-05-23] MEDS: INSULIN REGULAR, HUMAN 100 UNIT/ML 3 ML VIAL SQ PRN ×2 (12:54→18:34)
[2016-05-24] VITALS (7 sets, daily range): BP systolic 100–122; BP diastolic 51–69
[2016-05-24] MEDS: BLOOD SUGAR DIAGNOSTIC 1 EACH STRIP IN SCH ×5 (00:39→23:53)
[2016-05-24] MEDS: GLYTROL 1,000 ML BAG GT PRN (00:40)
[2016-05-24] MEDS: ALBUTEROL FS 2.5 MG/0.5 ML VIAL.NEB NEB SCH ×4 (01:22→19:21)
[2016-05-24] MEDS: IPRATROPIUM NEB FS 0.5 MG/2.5 ML AMPUL.NEB IH SCH ×4 (01:22→19:21)
[2016-05-24] MEDS: PANTOPRAZOLE 40 MG/PACK PACK GT SCH (05:17)
[2016-05-24] MEDS: LEVOTHYROXINE SODIUM 25 MCG TABLET GT SCH (05:17)
[2016-05-24] MEDS: LACTOBACILLUS RHAMNOSUS GG 1 EACH CAP.SPRINK GT SCH (08:40)
[2016-05-24] MEDS: POLYVINYL ALCOHOL 15 ML BOTTLE EACHEYE SCH (08:40)
[2016-05-24] MEDS: DOCUSATE SODIUM LIQ 100 MG/10 ML UDC GT SCH (08:40)
[2016-05-24] MEDS: OMEGA GT SCH ×3 (08:41→16:44)
[2016-05-24] MEDS: LEVETIRACETAM SOL (5 ML) 100 MG/ML UDC GT SCH ×2 (08:41→21:15)
[2016-05-24] MEDS: VALSARTAN 80 MG TABLET GT SCH ×2 (08:41→21:12)
[2016-05-24] MEDS: MULTIVITAMINS,THERAGRAN 1 UDTAB TABLET GT SCH (08:41)
[2016-05-24] MEDS: CHOLESTYRAMINE/ASPARTAME 4 G/PKT PACKET GT SCH (08:41)
[2016-05-24] MEDS: LABETALOL HCL (100MG) 100 MG TABLET GT SCH ×2 (08:41→21:15)
[2016-05-24] MEDS: Z GUARD REMEDY 4 OZ OINT TP SCH ×2 (08:42→21:15)
[2016-05-24] MEDS: ZINC OXIDE 56.7 GM TUBE TP SCH (08:42)
[2016-05-24] MEDS: ZINC OXIDE 30 GM TUBE TP SCH ×2 (08:42→21:15)
[2016-05-24] MEDS: ASCORBIC ACID 500 MG TABLET GT SCH (08:42)
[2016-05-24] MEDS: HYDROGEN PEROXIDE 480 ML BOTTLE TP SCH ×2 (09:00→21:15)
[2016-05-24] MEDS: INSULIN REGULAR, HUMAN 100 UNIT/ML 3 ML VIAL SQ PRN ×2 (12:02→17:54)
--- NOTE | 2016-05-24 20:00 | NUR ---
RN NOTES Seen by Becca Smith with new order to decrease Diovan to 80mg via GT q12hr for HTN, noted and carried out. Notified daughter Reyna of new order.
[2016-05-25] VITALS (8 sets, daily range): BP systolic 102–136; BP diastolic 58–75
[2016-05-25] MEDS: IPRATROPIUM NEB FS 0.5 MG/2.5 ML AMPUL.NEB IH SCH ×4 (01:40→20:04)
[2016-05-25] MEDS: ALBUTEROL FS 2.5 MG/0.5 ML VIAL.NEB NEB SCH ×4 (01:41→20:04)
[2016-05-25] MEDS: PANTOPRAZOLE 40 MG/PACK PACK GT SCH (05:19)
[2016-05-25] MEDS: LEVOTHYROXINE SODIUM 25 MCG TABLET GT SCH (05:19)
[2016-05-25] MEDS: BLOOD SUGAR DIAGNOSTIC 1 EACH STRIP IN SCH ×4 (06:01→23:08)
[2016-05-25] MEDS: GLYTROL 1,000 ML BAG GT PRN ×2 (06:01→22:40)
[2016-05-25] MEDS: POLYVINYL ALCOHOL 15 ML BOTTLE EACHEYE SCH (09:37)
[2016-05-25] MEDS: LACTOBACILLUS RHAMNOSUS GG 1 EACH CAP.SPRINK GT SCH (09:37)
[2016-05-25] MEDS: DOCUSATE SODIUM LIQ 100 MG/10 ML UDC GT SCH (09:37)
[2016-05-25] MEDS: VALSARTAN 80 MG TABLET GT SCH ×2 (09:37→21:05)
[2016-05-25] MEDS: LABETALOL HCL (100MG) 100 MG TABLET GT SCH ×2 (09:38→21:06)
[2016-05-25] MEDS: LEVETIRACETAM SOL (5 ML) 100 MG/ML UDC GT SCH ×2 (09:38→21:05)
[2016-05-25] MEDS: MULTIVITAMINS,THERAGRAN 1 UDTAB TABLET GT SCH (09:38)
[2016-05-25] MEDS: HYDROGEN PEROXIDE 480 ML BOTTLE TP SCH ×2 (09:38→21:06)
[2016-05-25] MEDS: OMEGA GT SCH ×3 (09:38→17:11)
[2016-05-25] MEDS: ZINC OXIDE 30 GM TUBE TP SCH ×2 (09:38→21:06)
[2016-05-25] MEDS: ASCORBIC ACID 500 MG TABLET GT SCH (09:38)
[2016-05-25] MEDS: Z GUARD REMEDY 4 OZ OINT TP SCH ×2 (09:38→21:06)
[2016-05-25] MEDS: CHOLESTYRAMINE/ASPARTAME 4 G/PKT PACKET GT SCH (09:38)
[2016-05-25] MEDS: ZINC OXIDE 56.7 GM TUBE TP SCH (09:40)
--- NOTE | 2016-05-25 11:00 | NUR ---
Resident's hair was cut by Ann Marie (hairdresser) per family's permission.
[2016-05-25] MEDS: ONDANSETRON 4 MG TAB.RAPDIS GT PRN (12:55)
[2016-05-26] VITALS (8 sets, daily range): BP systolic 94–119; BP diastolic 49–63
[2016-05-26] MEDS: ALBUTEROL FS 2.5 MG/0.5 ML VIAL.NEB NEB SCH ×4 (01:21→19:52)
[2016-05-26] MEDS: IPRATROPIUM NEB FS 0.5 MG/2.5 ML AMPUL.NEB IH SCH ×4 (01:21→19:52)
[2016-05-26] MEDS: PANTOPRAZOLE 40 MG/PACK PACK GT SCH (05:18)
[2016-05-26] MEDS: LEVOTHYROXINE SODIUM 25 MCG TABLET GT SCH (05:18)
[2016-05-26] MEDS: BLOOD SUGAR DIAGNOSTIC 1 EACH STRIP IN SCH ×4 (06:10→23:45)
[2016-05-26] MEDS: CHOLESTYRAMINE/ASPARTAME 4 G/PKT PACKET GT SCH (08:47)
[2016-05-26] MEDS: VALSARTAN 80 MG TABLET GT SCH ×2 (09:00→21:18)
[2016-05-26] MEDS: LEVETIRACETAM SOL (5 ML) 100 MG/ML UDC GT SCH ×2 (09:00→21:19)
[2016-05-26] MEDS: MULTIVITAMINS,THERAGRAN 1 UDTAB TABLET GT SCH (09:00)
[2016-05-26] MEDS: ASCORBIC ACID 500 MG TABLET GT SCH (09:00)
[2016-05-26] MEDS: DOCUSATE SODIUM LIQ 100 MG/10 ML UDC GT SCH (09:00)
[2016-05-26] MEDS: ZINC OXIDE 30 GM TUBE TP SCH ×2 (09:00→21:18)
[2016-05-26] MEDS: Z GUARD REMEDY 4 OZ OINT TP SCH ×2 (09:00→21:18)
[2016-05-26] MEDS: ZINC OXIDE 56.7 GM TUBE TP SCH (09:00)
[2016-05-26] MEDS: LABETALOL HCL (100MG) 100 MG TABLET GT SCH ×2 (09:00→21:18)
[2016-05-26] MEDS: HYDROGEN PEROXIDE 480 ML BOTTLE TP SCH ×2 (09:00→21:18)
[2016-05-26] MEDS: POLYVINYL ALCOHOL 15 ML BOTTLE EACHEYE SCH (09:00)
[2016-05-26] MEDS: OMEGA GT SCH ×3 (09:00→17:36)
[2016-05-26] MEDS: LACTOBACILLUS RHAMNOSUS GG 1 EACH CAP.SPRINK GT SCH (09:00)
--- NOTE | 2016-05-26 09:26 | NUR ---
Received new order to discontinue previous order of Artificial tears and change to Refresh plus lubricant eye drops to instill two drops into each eye every day for eye dryness noted and carried out. Family will provide Refresh eye drops.
[2016-05-26] MEDS: GLYTROL 1,000 ML BAG GT PRN (13:31)
--- NOTE | 2016-05-26 15:17 | NUR ---
Seen and examined by Becca Smith NP with new order to D/C Diovan 80mg via GT Q12hr and changed to Diovan 80mg tab via GT QHS hold for SBP < 110 OR HR < 60 noted and carried out.
[2016-05-26] MEDS: INSULIN REGULAR, HUMAN 100 UNIT/ML 3 ML VIAL SQ PRN (23:45)
[2016-05-26] MEDS: hydrALAZINE HCL 10 MG TABLET GT PRN (23:59)
[2016-05-27] VITALS (8 sets, daily range): BP systolic 93–123; BP diastolic 52–65
[2016-05-27] MEDS: ALBUTEROL FS 2.5 MG/0.5 ML VIAL.NEB NEB SCH ×4 (02:18→19:34)
[2016-05-27] MEDS: IPRATROPIUM NEB FS 0.5 MG/2.5 ML AMPUL.NEB IH SCH ×4 (02:18→19:34)
[2016-05-27] MEDS: GLYTROL 1,000 ML BAG GT PRN ×2 (03:57→17:49)
[2016-05-27] MEDS: PANTOPRAZOLE 40 MG/PACK PACK GT SCH (05:37)
[2016-05-27] MEDS: LEVOTHYROXINE SODIUM 25 MCG TABLET GT SCH (05:37)
[2016-05-27] MEDS: BLOOD SUGAR DIAGNOSTIC 1 EACH STRIP IN SCH ×3 (05:37→17:37)
[2016-05-27] MEDS: hydrALAZINE HCL 10 MG TABLET GT PRN (05:37)
[2016-05-27] MEDS: INSULIN REGULAR, HUMAN 100 UNIT/ML 3 ML VIAL SQ PRN (05:38)
[2016-05-27] MEDS: Z GUARD REMEDY 4 OZ OINT TP SCH ×2 (09:00→20:04)
[2016-05-27] MEDS: LACTOBACILLUS RHAMNOSUS GG 1 EACH CAP.SPRINK GT SCH (09:00)
[2016-05-27] MEDS: LABETALOL HCL (100MG) 100 MG TABLET GT SCH ×2 (09:00→20:04)
[2016-05-27] MEDS: ZINC OXIDE 30 GM TUBE TP SCH ×2 (09:00→20:04)
[2016-05-27] MEDS: CARBOXYMETHYLCELLULOSE SODIUM 0.4 ML DROPERETTE EACHEYE SCH (09:00)
[2016-05-27] MEDS: ASCORBIC ACID 500 MG TABLET GT SCH (09:00)
[2016-05-27] MEDS: MULTIVITAMINS,THERAGRAN 1 UDTAB TABLET GT SCH (09:00)
[2016-05-27] MEDS: DOCUSATE SODIUM LIQ 100 MG/10 ML UDC GT SCH (09:00)
[2016-05-27] MEDS: ZINC OXIDE 56.7 GM TUBE TP SCH (09:00)
[2016-05-27] MEDS: OMEGA GT SCH ×3 (09:00→17:37)
[2016-05-27] MEDS: LEVETIRACETAM SOL (5 ML) 100 MG/ML UDC GT SCH ×2 (09:00→20:04)
[2016-05-27] MEDS: HYDROGEN PEROXIDE 480 ML BOTTLE TP SCH ×2 (09:00→20:04)
[2016-05-27] MEDS: CHOLESTYRAMINE/ASPARTAME 4 G/PKT PACKET GT SCH (09:06)
--- NOTE | 2016-05-27 13:51 | NUR ---
IDT meeting held, reviewed current medication and treatment orders. Attended by two daughters, Reyna and Sky. Sky stated that she would like to resume some of home medications. It was discussed that resident has less vomiting episode after her home supplement has been discontinued. Reyna suggested that we monitor episode of vomiting for a week and will revisit if OK to resume some of the supplements (Vit D and Cognaid). Weight reviewed, 134 lbs upon admission and 136 lbs taken on 05/18/16.
[2016-05-27] MEDS: VALSARTAN 80 MG TABLET GT SCH (21:19)
[2016-05-28] VITALS (8 sets, daily range): BP systolic 90–119; BP diastolic 45–61
[2016-05-28] MEDS: BLOOD SUGAR DIAGNOSTIC 1 EACH STRIP IN SCH ×5 (00:32→23:46)
[2016-05-28] MEDS: hydrALAZINE HCL 10 MG TABLET GT PRN ×2 (00:32→05:23)
[2016-05-28] MEDS: INSULIN REGULAR, HUMAN 100 UNIT/ML 3 ML VIAL SQ PRN ×3 (00:33→23:46)
[2016-05-28] MEDS: ALBUTEROL FS 2.5 MG/0.5 ML VIAL.NEB NEB SCH ×4 (01:50→19:31)
[2016-05-28] MEDS: IPRATROPIUM NEB FS 0.5 MG/2.5 ML AMPUL.NEB IH SCH ×4 (01:50→19:31)
[2016-05-28] MEDS: PANTOPRAZOLE 40 MG/PACK PACK GT SCH (05:23)
[2016-05-28] MEDS: LEVOTHYROXINE SODIUM 25 MCG TABLET GT SCH (05:23)
[2016-05-28] MEDS: CARBOXYMETHYLCELLULOSE SODIUM 0.4 ML DROPERETTE EACHEYE SCH (09:45)
[2016-05-28] MEDS: LEVETIRACETAM SOL (5 ML) 100 MG/ML UDC GT SCH ×2 (09:45→21:04)
[2016-05-28] MEDS: MULTIVITAMINS,THERAGRAN 1 UDTAB TABLET GT SCH (09:45)
[2016-05-28] MEDS: OMEGA GT SCH ×3 (09:45→17:48)
[2016-05-28] MEDS: LACTOBACILLUS RHAMNOSUS GG 1 EACH CAP.SPRINK GT SCH (09:45)
[2016-05-28] MEDS: DOCUSATE SODIUM LIQ 100 MG/10 ML UDC GT SCH (09:45)
[2016-05-28] MEDS: ZINC OXIDE 56.7 GM TUBE TP SCH (09:46)
[2016-05-28] MEDS: ZINC OXIDE 30 GM TUBE TP SCH ×2 (09:46→21:06)
[2016-05-28] MEDS: ASCORBIC ACID 500 MG TABLET GT SCH (09:46)
[2016-05-28] MEDS: LABETALOL HCL (100MG) 100 MG TABLET GT SCH ×2 (09:46→21:05)
[2016-05-28] MEDS: HYDROGEN PEROXIDE 480 ML BOTTLE TP SCH ×2 (09:46→21:06)
[2016-05-28] MEDS: Z GUARD REMEDY 4 OZ OINT TP SCH ×2 (09:46→21:06)
--- NOTE | 2016-05-28 10:00 | NUR ---
Resident's daughter Maddy and Marah visited resident, confided with this nurse that siblings are not communicating with each other. They are requesting that if there is something that they need to know about their mother to please notify them as well because they claim their sisters (Marielena Miller & Reyna) will not inform them if there will be changes in patient's condition because of family conflict. They stated that they do not want to know the daily things going on with her mother such as episode of vomiting or if B/P was high or low that day because they know that nurses will take care of her. The two siblings are referring to significant change of condition. Informed Marah and Maddy that Reyna being the responsible libertarian and who has the power of mergers and acquisitions attorney will be the first person to be contacted. They verbalized understanding. Reyna stated in the past that we can give information to her siblings but limited in a sense so they do not interfere with the care. Will refer siblings concern to SSD if such request can be granted. No episode of vomiting. Resident had a shower earlier today.
[2016-05-28] MEDS: CHOLESTYRAMINE/ASPARTAME 4 G/PKT PACKET GT SCH (12:34)
[2016-05-28] MEDS: VALSARTAN 80 MG TABLET GT SCH (21:51)
[2016-05-29] MEDS: ALBUTEROL FS 2.5 MG/0.5 ML VIAL.NEB NEB SCH ×4 (01:37→18:46)
[2016-05-29] MEDS: IPRATROPIUM NEB FS 0.5 MG/2.5 ML AMPUL.NEB IH SCH ×4 (01:37→18:46)
[2016-05-29 02:28] VITALS: BP 101/55
[2016-05-29 05:08] VITALS: BP 103/56
[2016-05-29] MEDS: LEVOTHYROXINE SODIUM 25 MCG TABLET GT SCH (05:09)
[2016-05-29] MEDS: GLYTROL 1,000 ML BAG GT PRN (05:09)
[2016-05-29] MEDS: PANTOPRAZOLE 40 MG/PACK PACK GT SCH (05:09)
[2016-05-29] MEDS: BLOOD SUGAR DIAGNOSTIC 1 EACH STRIP IN SCH ×4 (05:09→23:16)
[2016-05-29] MEDS: hydrALAZINE HCL 10 MG TABLET GT PRN (05:09)
[2016-05-29] MEDS: INSULIN REGULAR, HUMAN 100 UNIT/ML 3 ML VIAL SQ PRN ×4 (05:10→23:16)
[2016-05-29 07:45] VITALS: BP 111/56
[2016-05-29] MEDS: MULTIVITAMINS,THERAGRAN 1 UDTAB TABLET GT SCH (08:31)
[2016-05-29] MEDS: DOCUSATE SODIUM LIQ 100 MG/10 ML UDC GT SCH (08:31)
[2016-05-29] MEDS: OMEGA GT SCH ×3 (08:31→17:18)
[2016-05-29] MEDS: LACTOBACILLUS RHAMNOSUS GG 1 EACH CAP.SPRINK GT SCH (08:31)
[2016-05-29] MEDS: LEVETIRACETAM SOL (5 ML) 100 MG/ML UDC GT SCH ×2 (08:31→21:03)
[2016-05-29] MEDS: ASCORBIC ACID 500 MG TABLET GT SCH (08:32)
[2016-05-29] MEDS: LABETALOL HCL (100MG) 100 MG TABLET GT SCH ×2 (08:32→21:04)
[2016-05-29] MEDS: CARBOXYMETHYLCELLULOSE SODIUM 0.4 ML DROPERETTE EACHEYE SCH (08:33)
[2016-05-29] MEDS: ZINC OXIDE 30 GM TUBE TP SCH ×2 (09:23→21:04)
[2016-05-29] MEDS: HYDROGEN PEROXIDE 480 ML BOTTLE TP SCH ×2 (09:23→21:04)
[2016-05-29] MEDS: Z GUARD REMEDY 4 OZ OINT TP SCH ×2 (09:23→21:04)
[2016-05-29] MEDS: ZINC OXIDE 56.7 GM TUBE TP SCH (09:24)
[2016-05-29] MEDS: CHOLESTYRAMINE/ASPARTAME 4 G/PKT PACKET GT SCH (12:00)
[2016-05-29 17:35] VITALS: BP 111/56
[2016-05-29 19:42] VITALS: BP 111/55
[2016-05-29 21:00] VITALS: BP 111/55
[2016-05-29] MEDS: VALSARTAN 80 MG TABLET GT SCH (21:06)
[2016-05-30] VITALS (8 sets, daily range): BP systolic 98–141; BP diastolic 45–83
[2016-05-30] MEDS: IPRATROPIUM NEB FS 0.5 MG/2.5 ML AMPUL.NEB IH SCH ×4 (01:18→20:55)
[2016-05-30] MEDS: ALBUTEROL FS 2.5 MG/0.5 ML VIAL.NEB NEB SCH ×4 (01:18→20:55)
[2016-05-30] MEDS: INSULIN REGULAR, HUMAN 100 UNIT/ML 3 ML VIAL SQ PRN (05:41)
[2016-05-30] MEDS: PANTOPRAZOLE 40 MG/PACK PACK GT SCH (05:41)
[2016-05-30] MEDS: GLYTROL 1,000 ML BAG GT PRN ×2 (05:41→23:32)
[2016-05-30] MEDS: BLOOD SUGAR DIAGNOSTIC 1 EACH STRIP IN SCH ×4 (05:41→23:30)
[2016-05-30] MEDS: LEVOTHYROXINE SODIUM 25 MCG TABLET GT SCH (05:41)
[2016-05-30] MEDS: LABETALOL HCL (100MG) 100 MG TABLET GT SCH ×2 (08:53→21:15)
[2016-05-30] MEDS: LACTOBACILLUS RHAMNOSUS GG 1 EACH CAP.SPRINK GT SCH (08:53)
[2016-05-30] MEDS: LEVETIRACETAM SOL (5 ML) 100 MG/ML UDC GT SCH ×2 (08:56→21:12)
[2016-05-30] MEDS: DOCUSATE SODIUM LIQ 100 MG/10 ML UDC GT SCH (08:56)
[2016-05-30] MEDS: CARBOXYMETHYLCELLULOSE SODIUM 0.4 ML DROPERETTE EACHEYE SCH (08:57)
[2016-05-30] MEDS: ASCORBIC ACID 500 MG TABLET GT SCH (08:59)
[2016-05-30] MEDS: ZINC OXIDE 56.7 GM TUBE TP SCH (08:59)
[2016-05-30] MEDS: ZINC OXIDE 30 GM TUBE TP SCH ×2 (08:59→21:16)
[2016-05-30] MEDS: OMEGA GT SCH ×3 (08:59→17:00)
[2016-05-30] MEDS: Z GUARD REMEDY 4 OZ OINT TP SCH ×2 (08:59→21:15)
[2016-05-30] MEDS: MULTIVITAMINS,THERAGRAN 1 UDTAB TABLET GT SCH (08:59)
[2016-05-30] MEDS: HYDROGEN PEROXIDE 480 ML BOTTLE TP SCH ×2 (08:59→21:15)
--- NOTE | 2016-05-30 09:00 | NUR ---
floorworker distributor relayed to DPOA/Daughter Reyna that Maddy and Marah have requested for nurse to tell them if there are any significant changes with resident. Per Reyna, Maddy and Marah have blocked both her and Dyana from communicating with them so they are unable to talk to them. Per Reyna, leave things as is and Maddy and Marah cannot receive any information. Reyna reported to charge nurse that they can ask her (Reyna) directly if they want to know anything about resident's condition.
[2016-05-30] MEDS: CHOLESTYRAMINE/ASPARTAME 4 G/PKT PACKET GT SCH (11:52)
[2016-05-30] MEDS: VALSARTAN 80 MG TABLET GT SCH (21:16)
[2016-05-31] VITALS (8 sets, daily range): BP systolic 101–112; BP diastolic 51–76
[2016-05-31] MEDS: ALBUTEROL FS 2.5 MG/0.5 ML VIAL.NEB NEB SCH ×4 (01:14→20:44)
[2016-05-31] MEDS: IPRATROPIUM NEB FS 0.5 MG/2.5 ML AMPUL.NEB IH SCH ×4 (01:14→20:44)
[2016-05-31] MEDS: LEVOTHYROXINE SODIUM 25 MCG TABLET GT SCH (05:19)
[2016-05-31] MEDS: PANTOPRAZOLE 40 MG/PACK PACK GT SCH (05:19)
[2016-05-31] MEDS: BLOOD SUGAR DIAGNOSTIC 1 EACH STRIP IN SCH ×4 (05:46→23:29)
--- NOTE | 2016-05-31 07:30 | NUR ---
RN NOTES PT IN BED, SLEEPING, EASY TO AROUSE, NO FACIAL GRIMACING, RESPIRATIONS NORMAL, GT INFUSING WELL, AM CARE PROVIDED, KEPT COMFORTABLE.
[2016-05-31] MEDS: CARBOXYMETHYLCELLULOSE SODIUM 0.4 ML DROPERETTE EACHEYE SCH (09:28)
[2016-05-31] MEDS: OMEGA GT SCH ×3 (09:28→16:12)
[2016-05-31] MEDS: MULTIVITAMINS,THERAGRAN 1 UDTAB TABLET GT SCH (09:29)
[2016-05-31] MEDS: ASCORBIC ACID 500 MG TABLET GT SCH (09:30)
[2016-05-31] MEDS: HYDROGEN PEROXIDE 480 ML BOTTLE TP SCH ×2 (09:30→21:02)
[2016-05-31] MEDS: Z GUARD REMEDY 4 OZ OINT TP SCH ×2 (09:30→21:02)
[2016-05-31] MEDS: ZINC OXIDE 56.7 GM TUBE TP SCH (09:31)
[2016-05-31] MEDS: ZINC OXIDE 30 GM TUBE TP SCH ×2 (09:31→21:02)
[2016-05-31] MEDS: LACTOBACILLUS RHAMNOSUS GG 1 EACH CAP.SPRINK GT SCH (09:34)
[2016-05-31] MEDS: LEVETIRACETAM SOL (5 ML) 100 MG/ML UDC GT SCH ×2 (09:34→21:01)
[2016-05-31] MEDS: DOCUSATE SODIUM LIQ 100 MG/10 ML UDC GT SCH (09:37)
[2016-05-31] MEDS: LABETALOL HCL (100MG) 100 MG TABLET GT SCH ×2 (09:38→21:02)
--- NOTE | 2016-05-31 11:15 | NUR ---
Patient noted with minimal amount of emesis x2 of undigested formula. GT patent and in place, no residuals noted, no signs and symptoms of aspiration noted. Bowel sound present in all 4 quadrants. Patient had BM today. Suctioned tracheal secretions. Vital signs taken and noted as BP 100/68, P72, RR 18, Temp. 98.0, O2 saturation at 98%. Administered Zofran 4mg via GT as ordered, and was effective. HOB elevated for aspiration precautions. Skin is warm and dry to touch. No s/sx of hypo/hyperglycemia noted. No further episode of nausea and vomiting noted. Will continue to monitor and observe. Dyana at patient's bedside.
[2016-05-31] MEDS: CHOLESTYRAMINE/ASPARTAME 4 G/PKT PACKET GT SCH (12:24)
[2016-05-31] MEDS: GLYTROL 1,000 ML BAG GT PRN (16:11)
--- NOTE | 2016-05-31 17:44 | NUR ---
RN NOTES PT IN BED, RESTING, NO SIGN OF PAIN OR RESPIRATORY DISTRESS, PM CARE RENDERED, TURNED AND REPOSITIONED Q2 HRS, BLOOD SUGAR CHECKED, NO S/S OF HYPO/HYPERGLYCEMIA NOTED, GT FEEDING INFUSING WELL, TOLERATING WELL, KEPT HOB ELEVATED FOR ASPIRATION PRECAUTIONS, ALL NEEDS ATTENDED.
[2016-05-31] MEDS: VALSARTAN 80 MG TABLET GT SCH (21:04)
[2016-05-31] MEDS: ONDANSETRON 4 MG TAB.RAPDIS GT PRN (23:30)
[2016-06-01] VITALS (9 sets, daily range): BP systolic 92–121; BP diastolic 55–68
[2016-06-01] MEDS: IPRATROPIUM NEB FS 0.5 MG/2.5 ML AMPUL.NEB IH SCH ×4 (01:16→19:28)
[2016-06-01] MEDS: ALBUTEROL FS 2.5 MG/0.5 ML VIAL.NEB NEB SCH ×4 (01:16→19:28)
[2016-06-01] MEDS: LEVOTHYROXINE SODIUM 25 MCG TABLET GT SCH (05:59)
[2016-06-01] MEDS: PANTOPRAZOLE 40 MG/PACK PACK GT SCH (05:59)
[2016-06-01] MEDS: BLOOD SUGAR DIAGNOSTIC 1 EACH STRIP IN SCH ×4 (05:59→23:27)
[2016-06-01] MEDS: LEVETIRACETAM SOL (5 ML) 100 MG/ML UDC GT SCH ×2 (09:37→21:24)
[2016-06-01] MEDS: LACTOBACILLUS RHAMNOSUS GG 1 EACH CAP.SPRINK GT SCH (09:37)
[2016-06-01] MEDS: OMEGA GT SCH ×3 (09:37→17:41)
[2016-06-01] MEDS: CARBOXYMETHYLCELLULOSE SODIUM 0.4 ML DROPERETTE EACHEYE SCH (09:37)
[2016-06-01] MEDS: MULTIVITAMINS,THERAGRAN 1 UDTAB TABLET GT SCH (09:37)
[2016-06-01] MEDS: DOCUSATE SODIUM LIQ 100 MG/10 ML UDC GT SCH (09:37)
[2016-06-01] MEDS: HYDROGEN PEROXIDE 480 ML BOTTLE TP SCH ×2 (09:38→21:25)
[2016-06-01] MEDS: LABETALOL HCL (100MG) 100 MG TABLET GT SCH ×2 (09:38→21:24)
[2016-06-01] MEDS: ASCORBIC ACID 500 MG TABLET GT SCH (09:38)
[2016-06-01] MEDS: ZINC OXIDE 30 GM TUBE TP SCH ×3 (09:39→21:25)
[2016-06-01] MEDS: Z GUARD REMEDY 4 OZ OINT TP SCH ×2 (09:39→21:25)
[2016-06-01] MEDS: ZINC OXIDE 56.7 GM TUBE TP SCH (09:39)
[2016-06-01] MEDS: GLYTROL 1,000 ML BAG GT PRN (10:29)
[2016-06-01] MEDS: CHOLESTYRAMINE/ASPARTAME 4 G/PKT PACKET GT SCH (12:00)
--- NOTE | 2016-06-01 12:49 | NUR ---
Notified Juni Calderon DNP that resident's B/P is on the low side. At this time 81/44 and after putting patient in Trendelenburg position B/P went up to 92/56. MD reviewed current B/P medications including parameters with new order to decrease Labetalol to 100MG q shift. Will continue to observe B/P, orders noted and carried out.
--- NOTE | 2016-06-01 13:35 | NUR ---
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 SACRAL ULCER MEASURES 1CM X 1CM X 0.1CM AND IS RED/PINK IN COLOR, NO DRAINAGE, NO ODOR. SOME EXCORIATED AREAS NOTED TO RT BUTTOCK. RECOMMENDATIONS MADE FOR WOUND CARE AND SKIN PROTECTION: CLEANSE SACRAL ULCER WITH NS, APPLY HYDROGEL AND COVER WITH MEPILEX. FOR RT BUTTOCK EXCORIATED AREAS, CLEANSE WITH SOAP AND WATER, RINSE AND DRY, THEN APPLY DESITIN. SKIN TO BE KEPT CLEAN AND DRY. DISCUSSED WITH NURSING STAFF. ALL SKIN PROTECTION MEASURES IN PLACE. MD IN AGREEMENT WITH PLAN OF CARE.
--- NOTE | 2016-06-01 14:20 | NUR ---
Informed Juni Calderon that B/P still low 80/42 - 94/47, HR 66, he ordered IVF bolus NS 250ml. Order noted & carried out.
--- NOTE | 2016-06-01 14:50 | NUR ---
Spoke and informed Reyna Gian Lynn of the following information pertaining to her mother's condition: wound nurse assessed sacral wound and R buttocks excoriation with treatment recommendations; resident has x2 episode of small amount of vomiting last night & no vomiting episode this shift; B/P running low (81/44-92/56-112/68-102/74) taken approximately half an hour apart. Dr. Juni Calderon ordered to give NS bolus 250 ml, BMP today and adjusted Labetalol dose from 200mg to 100 mg Q shift. Appreciated the information given.
[2016-06-01] MEDS ORDERED: IV NS 0.9% 250 ML IV ONE (15:30)
[2016-06-01 15:53] LABS: CREATININE 0.6 mg/dL (0.6-1.3); POTASSIUM 4.3 mmol/L (3.5-5.1)
[2016-06-01] MEDS: HYDROGEL DRESSING 90 GM TUBE TP SCH (21:24)
[2016-06-01] MEDS: VALSARTAN 80 MG TABLET GT SCH (21:25)
[2016-06-02] VITALS (8 sets, daily range): BP systolic 100–128; BP diastolic 48–64
[2016-06-02] MEDS: IPRATROPIUM NEB FS 0.5 MG/2.5 ML AMPUL.NEB IH SCH ×4 (00:52→19:55)
[2016-06-02] MEDS: ALBUTEROL FS 2.5 MG/0.5 ML VIAL.NEB NEB SCH ×4 (00:52→19:55)
[2016-06-02] MEDS: GLYTROL 1,000 ML BAG GT PRN ×2 (03:09→15:19)
[2016-06-02] MEDS: LEVOTHYROXINE SODIUM 25 MCG TABLET GT SCH (05:29)
[2016-06-02] MEDS: PANTOPRAZOLE 40 MG/PACK PACK GT SCH (05:29)
[2016-06-02] MEDS: BLOOD SUGAR DIAGNOSTIC 1 EACH STRIP IN SCH ×4 (05:53→23:51)
[2016-06-02] MEDS: OMEGA GT SCH ×3 (09:47→17:46)
[2016-06-02] MEDS: DOCUSATE SODIUM LIQ 100 MG/10 ML UDC GT SCH (09:47)
[2016-06-02] MEDS: LEVETIRACETAM SOL (5 ML) 100 MG/ML UDC GT SCH ×2 (09:47→21:30)
[2016-06-02] MEDS: CARBOXYMETHYLCELLULOSE SODIUM 0.4 ML DROPERETTE EACHEYE SCH (09:47)
[2016-06-02] MEDS: LACTOBACILLUS RHAMNOSUS GG 1 EACH CAP.SPRINK GT SCH (09:47)
[2016-06-02] MEDS: HYDROGEL DRESSING 90 GM TUBE TP SCH ×2 (09:48→21:31)
[2016-06-02] MEDS: ZINC OXIDE 30 GM TUBE TP SCH ×4 (09:48→21:31)
[2016-06-02] MEDS: HYDROGEN PEROXIDE 480 ML BOTTLE TP SCH ×2 (09:48→21:31)
[2016-06-02] MEDS: ASCORBIC ACID 500 MG TABLET GT SCH (09:48)
[2016-06-02] MEDS: Z GUARD REMEDY 4 OZ OINT TP SCH ×2 (09:48→21:31)
[2016-06-02] MEDS: ZINC OXIDE 56.7 GM TUBE TP SCH (09:48)
[2016-06-02] MEDS: MULTIVITAMINS,THERAGRAN 1 UDTAB TABLET GT SCH (09:48)
[2016-06-02] MEDS: LABETALOL HCL (100MG) 100 MG TABLET GT SCH ×2 (09:48→21:30)
[2016-06-02] MEDS: CHOLESTYRAMINE/ASPARTAME 4 G/PKT PACKET GT SCH (12:19)
--- NOTE | 2016-06-02 16:10 | NUR ---
Seen and examined by Becca Smith NP no new order given.
[2016-06-02] MEDS: VALSARTAN 80 MG TABLET GT SCH (21:31)
[2016-06-02] MEDS: INSULIN REGULAR, HUMAN 100 UNIT/ML 3 ML VIAL SQ PRN (23:52)
[2016-06-03] VITALS (8 sets, daily range): BP systolic 109–129; BP diastolic 50–85
[2016-06-03] MEDS: IPRATROPIUM NEB FS 0.5 MG/2.5 ML AMPUL.NEB IH SCH ×4 (01:32→19:56)
[2016-06-03] MEDS: ALBUTEROL FS 2.5 MG/0.5 ML VIAL.NEB NEB SCH ×4 (01:32→19:56)
[2016-06-03] MEDS: BLOOD SUGAR DIAGNOSTIC 1 EACH STRIP IN SCH ×4 (06:26→23:50)
[2016-06-03] MEDS: LEVOTHYROXINE SODIUM 25 MCG TABLET GT SCH (06:26)
[2016-06-03] MEDS: INSULIN REGULAR, HUMAN 100 UNIT/ML 3 ML VIAL SQ PRN ×2 (06:26→23:52)
[2016-06-03] MEDS: PANTOPRAZOLE 40 MG/PACK PACK GT SCH (06:26)
[2016-06-03] MEDS: GLYTROL 1,000 ML BAG GT PRN ×2 (06:45→22:14)
[2016-06-03] MEDS: OMEGA GT SCH ×3 (09:44→17:00)
[2016-06-03] MEDS: LEVETIRACETAM SOL (5 ML) 100 MG/ML UDC GT SCH ×2 (09:44→21:35)
[2016-06-03] MEDS: DOCUSATE SODIUM LIQ 100 MG/10 ML UDC GT SCH (09:44)
[2016-06-03] MEDS: LACTOBACILLUS RHAMNOSUS GG 1 EACH CAP.SPRINK GT SCH (09:44)
[2016-06-03] MEDS: CARBOXYMETHYLCELLULOSE SODIUM 0.4 ML DROPERETTE EACHEYE SCH (09:44)
[2016-06-03] MEDS: Z GUARD REMEDY 4 OZ OINT TP SCH ×2 (09:45→21:37)
[2016-06-03] MEDS: ASCORBIC ACID 500 MG TABLET GT SCH (09:45)
[2016-06-03] MEDS: HYDROGEL DRESSING 90 GM TUBE TP SCH ×2 (09:45→21:37)
[2016-06-03] MEDS: LABETALOL HCL (100MG) 100 MG TABLET GT SCH ×2 (09:45→21:35)
[2016-06-03] MEDS: HYDROGEN PEROXIDE 480 ML BOTTLE TP SCH ×2 (09:45→21:37)
[2016-06-03] MEDS: MULTIVITAMINS,THERAGRAN 1 UDTAB TABLET GT SCH (09:45)
[2016-06-03] MEDS: ZINC OXIDE 30 GM TUBE TP SCH ×4 (09:45→21:39)
[2016-06-03] MEDS: ZINC OXIDE 56.7 GM TUBE TP SCH (09:46)
[2016-06-03] MEDS: CHOLESTYRAMINE/ASPARTAME 4 G/PKT PACKET GT SCH (12:00)
[2016-06-03] MEDS: VALSARTAN 80 MG TABLET GT SCH (21:45)
[2016-06-04] VITALS (8 sets, daily range): BP systolic 111–125; BP diastolic 52–82
[2016-06-04] MEDS: IPRATROPIUM NEB FS 0.5 MG/2.5 ML AMPUL.NEB IH SCH ×4 (02:12→19:30)
[2016-06-04] MEDS: ALBUTEROL FS 2.5 MG/0.5 ML VIAL.NEB NEB SCH ×4 (02:12→19:30)
[2016-06-04] MEDS: PANTOPRAZOLE 40 MG/PACK PACK GT SCH (06:08)
[2016-06-04] MEDS: BLOOD SUGAR DIAGNOSTIC 1 EACH STRIP IN SCH ×4 (06:08→23:43)
[2016-06-04] MEDS: LEVOTHYROXINE SODIUM 25 MCG TABLET GT SCH (06:08)
[2016-06-04] MEDS: INSULIN REGULAR, HUMAN 100 UNIT/ML 3 ML VIAL SQ PRN ×2 (06:09→23:43)
[2016-06-04] MEDS: OMEGA GT SCH ×3 (09:33→17:00)
[2016-06-04] MEDS: CARBOXYMETHYLCELLULOSE SODIUM 0.4 ML DROPERETTE EACHEYE SCH (09:33)
[2016-06-04] MEDS: LEVETIRACETAM SOL (5 ML) 100 MG/ML UDC GT SCH ×2 (09:33→20:52)
[2016-06-04] MEDS: MULTIVITAMINS,THERAGRAN 1 UDTAB TABLET GT SCH (09:33)
[2016-06-04] MEDS: LACTOBACILLUS RHAMNOSUS GG 1 EACH CAP.SPRINK GT SCH (09:33)
[2016-06-04] MEDS: DOCUSATE SODIUM LIQ 100 MG/10 ML UDC GT SCH (09:33)
[2016-06-04] MEDS: HYDROGEN PEROXIDE 480 ML BOTTLE TP SCH ×2 (09:34→20:53)
[2016-06-04] MEDS: ZINC OXIDE 30 GM TUBE TP SCH ×4 (09:34→20:53)
[2016-06-04] MEDS: ASCORBIC ACID 500 MG TABLET GT SCH (09:34)
[2016-06-04] MEDS: HYDROGEL DRESSING 90 GM TUBE TP SCH ×2 (09:34→20:52)
[2016-06-04] MEDS: Z GUARD REMEDY 4 OZ OINT TP SCH (09:34)
[2016-06-04] MEDS: LABETALOL HCL (100MG) 100 MG TABLET GT SCH ×2 (09:34→20:52)
[2016-06-04] MEDS: ZINC OXIDE 56.7 GM TUBE TP SCH (09:35)
[2016-06-04] MEDS: CHOLESTYRAMINE/ASPARTAME 4 G/PKT PACKET GT SCH (12:09)
[2016-06-04] MEDS: GLYTROL 1,000 ML BAG GT PRN (13:18)
[2016-06-04] MEDS: VALSARTAN 80 MG TABLET GT SCH (22:21)
[2016-06-05] VITALS (8 sets, daily range): BP systolic 101–128; BP diastolic 58–71
[2016-06-05] MEDS: hydrALAZINE HCL 10 MG TABLET GT PRN
[2016-06-05] MEDS: IPRATROPIUM NEB FS 0.5 MG/2.5 ML AMPUL.NEB IH SCH ×4 (01:12→19:23)
[2016-06-05] MEDS: ALBUTEROL FS 2.5 MG/0.5 ML VIAL.NEB NEB SCH ×4 (01:12→19:23)
[2016-06-05] MEDS: GLYTROL 1,000 ML BAG GT PRN (05:14)
[2016-06-05] MEDS: LEVOTHYROXINE SODIUM 25 MCG TABLET GT SCH (05:53)
[2016-06-05] MEDS: INSULIN REGULAR, HUMAN 100 UNIT/ML 3 ML VIAL SQ PRN (05:53)
[2016-06-05] MEDS: PANTOPRAZOLE 40 MG/PACK PACK GT SCH (05:53)
[2016-06-05] MEDS: BLOOD SUGAR DIAGNOSTIC 1 EACH STRIP IN SCH ×4 (05:53→23:24)
[2016-06-05] MEDS: LEVETIRACETAM SOL (5 ML) 100 MG/ML UDC GT SCH ×2 (08:03→21:16)
[2016-06-05] MEDS: DOCUSATE SODIUM LIQ 100 MG/10 ML UDC GT SCH (08:03)
[2016-06-05] MEDS: LACTOBACILLUS RHAMNOSUS GG 1 EACH CAP.SPRINK GT SCH (08:03)
[2016-06-05] MEDS: CARBOXYMETHYLCELLULOSE SODIUM 0.4 ML DROPERETTE EACHEYE SCH (08:03)
[2016-06-05] MEDS: OMEGA GT SCH ×3 (08:03→16:24)
[2016-06-05] MEDS: MULTIVITAMINS,THERAGRAN 1 UDTAB TABLET GT SCH (08:03)
[2016-06-05] MEDS: ASCORBIC ACID 500 MG TABLET GT SCH (08:04)
[2016-06-05] MEDS: LABETALOL HCL (100MG) 100 MG TABLET GT SCH ×2 (08:08→21:16)
[2016-06-05] MEDS: HYDROGEL DRESSING 90 GM TUBE TP SCH ×2 (09:00→21:16)
[2016-06-05] MEDS: ZINC OXIDE 30 GM TUBE TP SCH ×4 (09:00→21:17)
[2016-06-05] MEDS: ZINC OXIDE 56.7 GM TUBE TP SCH (09:00)
[2016-06-05] MEDS: HYDROGEN PEROXIDE 480 ML BOTTLE TP SCH ×2 (09:00→21:16)
[2016-06-05] MEDS: CHOLESTYRAMINE/ASPARTAME 4 G/PKT PACKET GT SCH (11:18)
[2016-06-05] MEDS: VALSARTAN 80 MG TABLET GT SCH (21:17)
[2016-06-06] VITALS (8 sets, daily range): BP systolic 107–149; BP diastolic 53–64
[2016-06-06] MEDS: ALBUTEROL FS 2.5 MG/0.5 ML VIAL.NEB NEB SCH ×4 (01:31→20:27)
[2016-06-06] MEDS: IPRATROPIUM NEB FS 0.5 MG/2.5 ML AMPUL.NEB IH SCH ×4 (01:31→20:26)
[2016-06-06] MEDS: LEVOTHYROXINE SODIUM 25 MCG TABLET GT SCH (05:40)
[2016-06-06] MEDS: BLOOD SUGAR DIAGNOSTIC 1 EACH STRIP IN SCH ×3 (05:40→18:24)
[2016-06-06] MEDS: PANTOPRAZOLE 40 MG/PACK PACK GT SCH (05:40)
[2016-06-06] MEDS: CARBOXYMETHYLCELLULOSE SODIUM 0.4 ML DROPERETTE EACHEYE SCH (09:57)
[2016-06-06] MEDS: LEVETIRACETAM SOL (5 ML) 100 MG/ML UDC GT SCH ×2 (09:58→21:05)
[2016-06-06] MEDS: OMEGA GT SCH ×3 (09:58→16:40)
[2016-06-06] MEDS: LABETALOL HCL (100MG) 100 MG TABLET GT SCH ×2 (09:58→21:05)
[2016-06-06] MEDS: ASCORBIC ACID 500 MG TABLET GT SCH (09:58)
[2016-06-06] MEDS: DOCUSATE SODIUM LIQ 100 MG/10 ML UDC GT SCH (09:58)
[2016-06-06] MEDS: LACTOBACILLUS RHAMNOSUS GG 1 EACH CAP.SPRINK GT SCH (09:58)
[2016-06-06] MEDS: MULTIVITAMINS,THERAGRAN 1 UDTAB TABLET GT SCH (09:58)
[2016-06-06] MEDS: CHOLESTYRAMINE/ASPARTAME 4 G/PKT PACKET GT SCH (12:58)
[2016-06-06] MEDS: ZINC OXIDE 30 GM TUBE TP SCH ×4 (14:00→21:05)
[2016-06-06] MEDS: ZINC OXIDE 56.7 GM TUBE TP SCH (14:00)
[2016-06-06] MEDS: HYDROGEL DRESSING 90 GM TUBE TP SCH ×2 (14:00→21:05)
[2016-06-06] MEDS: HYDROGEN PEROXIDE 480 ML BOTTLE TP SCH ×2 (14:00→21:05)
[2016-06-06] MEDS: GLYTROL 1,000 ML BAG GT PRN (18:25)
[2016-06-06] MEDS: VALSARTAN 80 MG TABLET GT SCH (21:06)
[2016-06-07] VITALS (8 sets, daily range): BP systolic 103–128; BP diastolic 56–72
[2016-06-07] MEDS: BLOOD SUGAR DIAGNOSTIC 1 EACH STRIP IN SCH ×4 (00:10→17:49)
[2016-06-07] MEDS: IPRATROPIUM NEB FS 0.5 MG/2.5 ML AMPUL.NEB IH SCH ×4 (02:23→20:22)
[2016-06-07] MEDS: ALBUTEROL FS 2.5 MG/0.5 ML VIAL.NEB NEB SCH ×4 (02:23→20:22)
[2016-06-07] MEDS: PANTOPRAZOLE 40 MG/PACK PACK GT SCH (05:23)
[2016-06-07] MEDS: LEVOTHYROXINE SODIUM 25 MCG TABLET GT SCH (05:23)
[2016-06-07] MEDS: GLYTROL 1,000 ML BAG GT PRN (05:24)
[2016-06-07] MEDS: CARBOXYMETHYLCELLULOSE SODIUM 0.4 ML DROPERETTE EACHEYE SCH (08:08)
[2016-06-07] MEDS: DOCUSATE SODIUM LIQ 100 MG/10 ML UDC GT SCH (08:09)
[2016-06-07] MEDS: LACTOBACILLUS RHAMNOSUS GG 1 EACH CAP.SPRINK GT SCH (08:09)
[2016-06-07] MEDS: OMEGA GT SCH ×3 (08:09→17:52)
[2016-06-07] MEDS: MULTIVITAMINS,THERAGRAN 1 UDTAB TABLET GT SCH (08:09)
[2016-06-07] MEDS: ASCORBIC ACID 500 MG TABLET GT SCH (08:09)
[2016-06-07] MEDS: LEVETIRACETAM SOL (5 ML) 100 MG/ML UDC GT SCH ×2 (08:09→20:43)
[2016-06-07] MEDS: LABETALOL HCL (100MG) 100 MG TABLET GT SCH ×2 (08:09→20:44)
--- NOTE | 2016-06-07 09:53 | NUR ---
Seen by Dr Monet with no new order.
[2016-06-07] MEDS: HYDROGEL DRESSING 90 GM TUBE TP SCH ×2 (10:00→20:44)
[2016-06-07] MEDS: ZINC OXIDE 30 GM TUBE TP SCH ×4 (10:00→20:44)
[2016-06-07] MEDS: ZINC OXIDE 56.7 GM TUBE TP SCH (10:00)
[2016-06-07] MEDS: HYDROGEN PEROXIDE 480 ML BOTTLE TP SCH ×2 (10:00→20:44)
[2016-06-07] MEDS: CHOLESTYRAMINE/ASPARTAME 4 G/PKT PACKET GT SCH (12:21)
[2016-06-07] MEDS: VALSARTAN 80 MG TABLET GT SCH (20:44)
[2016-06-08] VITALS (7 sets, daily range): BP systolic 111–138; BP diastolic 54–71
[2016-06-08] MEDS: BLOOD SUGAR DIAGNOSTIC 1 EACH STRIP IN SCH ×4 (00:17→17:55)
[2016-06-08] MEDS: IPRATROPIUM NEB FS 0.5 MG/2.5 ML AMPUL.NEB IH SCH ×4 (01:14→19:55)
[2016-06-08] MEDS: ALBUTEROL FS 2.5 MG/0.5 ML VIAL.NEB NEB SCH ×4 (01:14→19:55)
[2016-06-08] MEDS: LEVOTHYROXINE SODIUM 25 MCG TABLET GT SCH (05:44)
[2016-06-08] MEDS: PANTOPRAZOLE 40 MG/PACK PACK GT SCH (05:44)
[2016-06-08] MEDS: CARBOXYMETHYLCELLULOSE SODIUM 0.4 ML DROPERETTE EACHEYE SCH (08:53)
[2016-06-08] MEDS: DOCUSATE SODIUM LIQ 100 MG/10 ML UDC GT SCH (08:53)
[2016-06-08] MEDS: LEVETIRACETAM SOL (5 ML) 100 MG/ML UDC GT SCH ×2 (08:53→21:09)
[2016-06-08] MEDS: OMEGA GT SCH ×3 (08:53→17:55)
[2016-06-08] MEDS: LACTOBACILLUS RHAMNOSUS GG 1 EACH CAP.SPRINK GT SCH (08:53)
[2016-06-08] MEDS: MULTIVITAMINS,THERAGRAN 1 UDTAB TABLET GT SCH (08:53)
[2016-06-08] MEDS: LABETALOL HCL (100MG) 100 MG TABLET GT SCH ×2 (08:54→21:09)
[2016-06-08] MEDS: ASCORBIC ACID 500 MG TABLET GT SCH (08:54)
[2016-06-08] MEDS: ZINC OXIDE 56.7 GM TUBE TP SCH (08:55)
[2016-06-08] MEDS: HYDROGEN PEROXIDE 480 ML BOTTLE TP SCH ×2 (08:55→21:11)
[2016-06-08] MEDS: ZINC OXIDE 30 GM TUBE TP SCH ×4 (08:55→21:11)
[2016-06-08] MEDS: HYDROGEL DRESSING 90 GM TUBE TP SCH ×2 (08:55→21:09)
[2016-06-08] MEDS: CHOLESTYRAMINE/ASPARTAME 4 G/PKT PACKET GT SCH (11:58)
[2016-06-08] MEDS: VALSARTAN 80 MG TABLET GT SCH (21:12)
[2016-06-09] VITALS (8 sets, daily range): BP systolic 101–120; BP diastolic 52–70
[2016-06-09] MEDS: INSULIN REGULAR, HUMAN 100 UNIT/ML 3 ML VIAL SQ PRN ×3 (01:01→23:50)
[2016-06-09] MEDS: ALBUTEROL FS 2.5 MG/0.5 ML VIAL.NEB NEB SCH ×4 (02:20→19:39)
[2016-06-09] MEDS: IPRATROPIUM NEB FS 0.5 MG/2.5 ML AMPUL.NEB IH SCH ×4 (02:20→19:39)
[2016-06-09] MEDS: GLYTROL 1,000 ML BAG GT PRN (03:14)
[2016-06-09] MEDS: PANTOPRAZOLE 40 MG/PACK PACK GT SCH (05:29)
[2016-06-09] MEDS: LEVOTHYROXINE SODIUM 25 MCG TABLET GT SCH (05:29)
[2016-06-09] MEDS: BLOOD SUGAR DIAGNOSTIC 1 EACH STRIP IN SCH ×5 (05:56→23:49)
[2016-06-09] MEDS: LEVETIRACETAM SOL (5 ML) 100 MG/ML UDC GT SCH ×2 (09:51→21:15)
[2016-06-09] MEDS: LACTOBACILLUS RHAMNOSUS GG 1 EACH CAP.SPRINK GT SCH (09:51)
[2016-06-09] MEDS: OMEGA GT SCH ×3 (09:51→17:00)
[2016-06-09] MEDS: DOCUSATE SODIUM LIQ 100 MG/10 ML UDC GT SCH (09:51)
[2016-06-09] MEDS: CARBOXYMETHYLCELLULOSE SODIUM 0.4 ML DROPERETTE EACHEYE SCH (09:51)
[2016-06-09] MEDS: MULTIVITAMINS,THERAGRAN 1 UDTAB TABLET GT SCH (09:51)
[2016-06-09] MEDS: ZINC OXIDE 30 GM TUBE TP SCH ×4 (09:52→21:17)
[2016-06-09] MEDS: ASCORBIC ACID 500 MG TABLET GT SCH (09:52)
[2016-06-09] MEDS: HYDROGEN PEROXIDE 480 ML BOTTLE TP SCH ×2 (09:52→21:15)
[2016-06-09] MEDS: LABETALOL HCL (100MG) 100 MG TABLET GT SCH ×2 (09:52→21:15)
[2016-06-09] MEDS: HYDROGEL DRESSING 90 GM TUBE TP SCH ×2 (09:52→21:15)
[2016-06-09] MEDS: CHOLESTYRAMINE/ASPARTAME 4 G/PKT PACKET GT SCH (12:00)
--- NOTE | 2016-06-09 13:30 | NUR ---
Seen by Becca Smith NP with no new order.
[2016-06-09] MEDS: VALSARTAN 80 MG TABLET GT SCH (22:00)
[2016-06-10] VITALS (9 sets, daily range): BP systolic 87–133; BP diastolic 44–77
[2016-06-10] MEDS: IPRATROPIUM NEB FS 0.5 MG/2.5 ML AMPUL.NEB IH SCH ×4 (01:44→19:04)
[2016-06-10] MEDS: ALBUTEROL FS 2.5 MG/0.5 ML VIAL.NEB NEB SCH ×2 (01:44→07:09)
[2016-06-10] MEDS: PANTOPRAZOLE 40 MG/PACK PACK GT SCH (06:00)
[2016-06-10] MEDS: BLOOD SUGAR DIAGNOSTIC 1 EACH STRIP IN SCH ×3 (06:00→17:47)
[2016-06-10] MEDS: LEVOTHYROXINE SODIUM 25 MCG TABLET GT SCH (06:00)
[2016-06-10] MEDS: INSULIN REGULAR, HUMAN 100 UNIT/ML 3 ML VIAL SQ PRN (07:06)
[2016-06-10] MEDS: LABETALOL HCL (100MG) 100 MG TABLET GT SCH ×2 (09:00→21:20)
[2016-06-10] MEDS: ASCORBIC ACID 500 MG TABLET GT SCH (09:51)
[2016-06-10] MEDS: DOCUSATE SODIUM LIQ 100 MG/10 ML UDC GT SCH (09:51)
[2016-06-10] MEDS: LACTOBACILLUS RHAMNOSUS GG 1 EACH CAP.SPRINK GT SCH (09:51)
[2016-06-10] MEDS: HYDROGEL DRESSING 90 GM TUBE TP SCH ×2 (09:51→21:21)
[2016-06-10] MEDS: CARBOXYMETHYLCELLULOSE SODIUM 0.4 ML DROPERETTE EACHEYE SCH (09:51)
[2016-06-10] MEDS: OMEGA GT SCH ×3 (09:51→17:47)
[2016-06-10] MEDS: MULTIVITAMINS,THERAGRAN 1 UDTAB TABLET GT SCH (09:51)
[2016-06-10] MEDS: LEVETIRACETAM SOL (5 ML) 100 MG/ML UDC GT SCH ×2 (09:51→21:20)
[2016-06-10] MEDS: HYDROGEN PEROXIDE 480 ML BOTTLE TP SCH ×2 (09:52→21:21)
[2016-06-10] MEDS: ZINC OXIDE 30 GM TUBE TP SCH ×4 (09:52→21:21)
--- NOTE | 2016-06-10 11:36 | NUR ---
Reported to Dr. Ramirez during rounds that resident's BS ranges from 110 to 150 with FSBS Q6 hours. B/P has been on the low side, this AM B/P taken in the L arm 87/44, 83 and R arm 96/61, 84. New order given to decrease FSBS to Q12 and changed parameter for Labetalol to hold less than 110. Orders noted and carried out.
[2016-06-10] MEDS ORDERED: ALBUTEROL FS 2.5 MG/3 ML VIAL.NEB NEB PRN (12:00)
[2016-06-10] MEDS: CHOLESTYRAMINE/ASPARTAME 4 G/PKT PACKET GT SCH (12:38)
[2016-06-10] MEDS: ALBUTEROL FS 2.5 MG/3 ML VIAL.NEB NEB SCH ×2 (13:23→19:04)
--- NOTE | 2016-06-10 16:53 | NUR ---
IDT meeting held, attended via Marielena Miller, daughter via phone conference. Reviewed current orders including medications, treatment and labs. She requesting if Vit D and Cogni-aid can be resumed. Dr. Monet ordered to resume the two supplements since resident had only x1 episode of vomiting in the past 2 weeks. Reyna notified and updated of the recent changes in orders, she is also in agreement to resume the supplements. She was asking if the doctor can order an EEG, she just wants to find out what brain activity she has. Will asked MD on Monday, she said it is fine. Endorsed.
[2016-06-10] MEDS: VALSARTAN 80 MG TABLET GT SCH (21:21)
[2016-06-11] VITALS (8 sets, daily range): BP systolic 98–129; BP diastolic 55–69
[2016-06-11] MEDS: IPRATROPIUM NEB FS 0.5 MG/2.5 ML AMPUL.NEB IH SCH ×4 (01:23→19:42)
[2016-06-11] MEDS: ALBUTEROL FS 2.5 MG/3 ML VIAL.NEB NEB SCH ×4 (01:23→19:42)
[2016-06-11] MEDS: GLYTROL 1,000 ML BAG GT PRN ×2 (02:52→18:10)
[2016-06-11] MEDS: LEVOTHYROXINE SODIUM 25 MCG TABLET GT SCH (05:44)
[2016-06-11] MEDS: PANTOPRAZOLE 40 MG/PACK PACK GT SCH (05:44)
[2016-06-11] MEDS: INSULIN REGULAR, HUMAN 100 UNIT/ML 3 ML VIAL SQ PRN (05:45)
[2016-06-11] MEDS: BLOOD SUGAR DIAGNOSTIC 1 EACH STRIP IN SCH ×3 (05:45→21:29)
[2016-06-11] MEDS: LABETALOL HCL (100MG) 100 MG TABLET GT SCH ×2 (09:00→21:01)
[2016-06-11] MEDS: [UNRECOGNIZED DRUG - OTHER] GT SCH (09:46)
[2016-06-11] MEDS: LACTOBACILLUS RHAMNOSUS GG 1 EACH CAP.SPRINK GT SCH (09:46)
[2016-06-11] MEDS: OMEGA GT SCH ×3 (09:46→17:00)
[2016-06-11] MEDS: DOCUSATE SODIUM LIQ 100 MG/10 ML UDC GT SCH (09:46)
[2016-06-11] MEDS: CARBOXYMETHYLCELLULOSE SODIUM 0.4 ML DROPERETTE EACHEYE SCH (09:46)
[2016-06-11] MEDS: [UNRECOGNIZED DRUG - OTHER] GT SCH (09:46)
[2016-06-11] MEDS: ASCORBIC ACID 500 MG TABLET GT SCH (09:47)
[2016-06-11] MEDS: MULTIVITAMINS,THERAGRAN 1 UDTAB TABLET GT SCH (09:47)
[2016-06-11] MEDS: LEVETIRACETAM SOL (5 ML) 100 MG/ML UDC GT SCH ×2 (09:47→21:00)
[2016-06-11] MEDS: HYDROGEN PEROXIDE 480 ML BOTTLE TP SCH ×2 (09:48→21:01)
[2016-06-11] MEDS: ZINC OXIDE 30 GM TUBE TP SCH ×4 (09:48→21:01)
[2016-06-11] MEDS: HYDROGEL DRESSING 90 GM TUBE TP SCH ×2 (09:49→21:01)
[2016-06-11] MEDS: CHOLESTYRAMINE/ASPARTAME 4 G/PKT PACKET GT SCH (12:00)
[2016-06-11] MEDS: ONDANSETRON 4 MG TAB.RAPDIS GT PRN (13:20)
[2016-06-11] MEDS: VALSARTAN 80 MG TABLET GT SCH (21:01)
[2016-06-12] VITALS (8 sets, daily range): BP systolic 94–125; BP diastolic 49–77
[2016-06-12] MEDS: ALBUTEROL FS 2.5 MG/3 ML VIAL.NEB NEB SCH ×4 (01:32→19:26)
[2016-06-12] MEDS: IPRATROPIUM NEB FS 0.5 MG/2.5 ML AMPUL.NEB IH SCH ×4 (01:32→19:26)
[2016-06-12] MEDS: LEVOTHYROXINE SODIUM 25 MCG TABLET GT SCH (05:25)
[2016-06-12] MEDS: PANTOPRAZOLE 40 MG/PACK PACK GT SCH (05:25)
[2016-06-12] MEDS: GLYTROL 1,000 ML BAG GT PRN (05:27)
[2016-06-12] MEDS: [UNRECOGNIZED DRUG - OTHER] GT SCH (09:00)
[2016-06-12] MEDS: [UNRECOGNIZED DRUG - OTHER] GT SCH (09:00)
[2016-06-12] MEDS: CARBOXYMETHYLCELLULOSE SODIUM 0.4 ML DROPERETTE EACHEYE SCH (09:06)
[2016-06-12] MEDS: LACTOBACILLUS RHAMNOSUS GG 1 EACH CAP.SPRINK GT SCH (09:06)
[2016-06-12] MEDS: DOCUSATE SODIUM LIQ 100 MG/10 ML UDC GT SCH (09:06)
[2016-06-12] MEDS: OMEGA GT SCH ×5 (09:07→17:24)
[2016-06-12] MEDS: HYDROGEL DRESSING 90 GM TUBE TP SCH ×2 (09:07→21:13)
[2016-06-12] MEDS: LEVETIRACETAM SOL (5 ML) 100 MG/ML UDC GT SCH ×2 (09:07→21:12)
[2016-06-12] MEDS: BLOOD SUGAR DIAGNOSTIC 1 EACH STRIP IN SCH ×2 (09:07→21:12)
[2016-06-12] MEDS: MULTIVITAMINS,THERAGRAN 1 UDTAB TABLET GT SCH (09:07)
[2016-06-12] MEDS: ASCORBIC ACID 500 MG TABLET GT SCH (09:07)
[2016-06-12] MEDS: LABETALOL HCL (100MG) 100 MG TABLET GT SCH ×2 (09:07→21:12)
[2016-06-12] MEDS: INSULIN REGULAR, HUMAN 100 UNIT/ML 3 ML VIAL SQ PRN (09:08)
[2016-06-12] MEDS: HYDROGEN PEROXIDE 480 ML BOTTLE TP SCH ×2 (09:08→21:13)
[2016-06-12] MEDS: ZINC OXIDE 30 GM TUBE TP SCH ×4 (09:08→21:13)
[2016-06-12] MEDS: CHOLESTYRAMINE/ASPARTAME 4 G/PKT PACKET GT SCH (12:02)
[2016-06-12] MEDS: VALSARTAN 80 MG TABLET GT SCH (21:13)
[2016-06-13] VITALS (8 sets, daily range): BP systolic 93–123; BP diastolic 42–74
[2016-06-13] MEDS: IPRATROPIUM NEB FS 0.5 MG/2.5 ML AMPUL.NEB IH SCH ×4 (02:19→19:08)
[2016-06-13] MEDS: ALBUTEROL FS 2.5 MG/3 ML VIAL.NEB NEB SCH ×4 (02:19→19:08)
[2016-06-13] MEDS: PANTOPRAZOLE 40 MG/PACK PACK GT SCH (05:30)
[2016-06-13] MEDS: LEVOTHYROXINE SODIUM 25 MCG TABLET GT SCH (05:30)
[2016-06-13] MEDS: LABETALOL HCL (100MG) 100 MG TABLET GT SCH ×2 (09:00→21:08)
[2016-06-13] MEDS: CARBOXYMETHYLCELLULOSE SODIUM 0.4 ML DROPERETTE EACHEYE SCH (09:27)
[2016-06-13] MEDS: OMEGA GT SCH ×3 (09:27→17:00)
[2016-06-13] MEDS: [UNRECOGNIZED DRUG - OTHER] GT SCH (09:27)
[2016-06-13] MEDS: LACTOBACILLUS RHAMNOSUS GG 1 EACH CAP.SPRINK GT SCH (09:27)
[2016-06-13] MEDS: [UNRECOGNIZED DRUG - OTHER] GT SCH (09:27)
[2016-06-13] MEDS: DOCUSATE SODIUM LIQ 100 MG/10 ML UDC GT SCH (09:27)
[2016-06-13] MEDS: MULTIVITAMINS,THERAGRAN 1 UDTAB TABLET GT SCH (09:28)
[2016-06-13] MEDS: LEVETIRACETAM SOL (5 ML) 100 MG/ML UDC GT SCH ×2 (09:28→21:07)
[2016-06-13] MEDS: ASCORBIC ACID 500 MG TABLET GT SCH (09:29)
[2016-06-13] MEDS: BLOOD SUGAR DIAGNOSTIC 1 EACH STRIP IN SCH ×2 (09:29→21:08)
[2016-06-13] MEDS: CHOLESTYRAMINE/ASPARTAME 4 G/PKT PACKET GT SCH (12:00)
[2016-06-13] MEDS: GLYTROL 1,000 ML BAG GT PRN (13:31)
[2016-06-13] MEDS: HYDROGEL DRESSING 90 GM TUBE TP SCH ×2 (15:15→21:08)
[2016-06-13] MEDS: ZINC OXIDE 30 GM TUBE TP SCH ×4 (15:15→21:08)
[2016-06-13] MEDS: HYDROGEN PEROXIDE 480 ML BOTTLE TP SCH ×2 (15:15→21:08)
[2016-06-13] MEDS: VALSARTAN 80 MG TABLET GT SCH (21:08)
[2016-06-14] VITALS (9 sets, daily range): BP systolic 110–140; BP diastolic 57–84
[2016-06-14] MEDS: ALBUTEROL FS 2.5 MG/3 ML VIAL.NEB NEB SCH ×4 (01:37→19:46)
[2016-06-14] MEDS: IPRATROPIUM NEB FS 0.5 MG/2.5 ML AMPUL.NEB IH SCH ×4 (01:37→19:46)
[2016-06-14] MEDS: PANTOPRAZOLE 40 MG/PACK PACK GT SCH (05:35)
[2016-06-14] MEDS: LEVOTHYROXINE SODIUM 25 MCG TABLET GT SCH (05:35)
[2016-06-14] MEDS: GLYTROL 1,000 ML BAG GT PRN ×2 (07:22→18:40)
[2016-06-14] MEDS: [UNRECOGNIZED DRUG - OTHER] GT SCH (09:24)
[2016-06-14] MEDS: DOCUSATE SODIUM LIQ 100 MG/10 ML UDC GT SCH (09:24)
[2016-06-14] MEDS: LEVETIRACETAM SOL (5 ML) 100 MG/ML UDC GT SCH ×2 (09:24→20:55)
[2016-06-14] MEDS: MULTIVITAMINS,THERAGRAN 1 UDTAB TABLET GT SCH (09:24)
[2016-06-14] MEDS: LACTOBACILLUS RHAMNOSUS GG 1 EACH CAP.SPRINK GT SCH (09:24)
[2016-06-14] MEDS: CARBOXYMETHYLCELLULOSE SODIUM 0.4 ML DROPERETTE EACHEYE SCH (09:24)
[2016-06-14] MEDS: [UNRECOGNIZED DRUG - OTHER] GT SCH (09:24)
[2016-06-14] MEDS: OMEGA GT SCH ×3 (09:24→16:45)
[2016-06-14] MEDS: LABETALOL HCL (100MG) 100 MG TABLET GT SCH ×2 (09:25→20:55)
[2016-06-14] MEDS: BLOOD SUGAR DIAGNOSTIC 1 EACH STRIP IN SCH ×2 (09:25→21:09)
[2016-06-14] MEDS: ASCORBIC ACID 500 MG TABLET GT SCH (09:25)
--- NOTE | 2016-06-14 09:45 | NUR ---
Seen by Dr. Monet. Received order from Dr. Monet to DC Cogniaid and Vit D Ultra 10 K supplements per family's request due to episode of vomiting after receiving supplements. Addendum: 06/14/16 at 1736 by PER MARTEL RN Relayed HgbA1C 5.[address] Monet. No new order.
[2016-06-14] MEDS: CHOLESTYRAMINE/ASPARTAME 4 G/PKT PACKET GT SCH (12:35)
[2016-06-14] MEDS: HYDROGEN PEROXIDE 480 ML BOTTLE TP SCH ×2 (14:15→21:09)
[2016-06-14] MEDS: HYDROGEL DRESSING 90 GM TUBE TP SCH ×2 (14:15→21:09)
[2016-06-14] MEDS: ZINC OXIDE 30 GM TUBE TP SCH ×4 (14:15→21:09)
--- NOTE | 2016-06-14 21:30 | NUR ---
PATIENT NOTED WITH RIGHT FOREARM REDDENED RASHES, DRY, NO OPEN SKIN, TX INITIATED. NOTIFIED CHARGE NURSE. NOTIFIED DAUGHTER. WILL CONTINUE TO MONITOR.
[2016-06-14] MEDS: VALSARTAN 80 MG TABLET GT SCH (21:48)
--- NOTE | 2016-06-14 22:25 | NUR ---
UV=673/84 P=99, VALSARTAN 80 MG GT GIVEN SCHEDULED THEN RECHECKED POST 30MINS SP=054/70 P=82, NO SOB, NO ACUTE DISTRESS, BREATHING EVEN AND UNLABORED, NO S/S OF PAIN AND DISCOMFORT, WILL CONTINUE TO MONITOR
[2016-06-15] VITALS (7 sets, daily range): BP systolic 100–131; BP diastolic 46–73
[2016-06-15] MEDS: IPRATROPIUM NEB FS 0.5 MG/2.5 ML AMPUL.NEB IH SCH ×4 (00:39→19:32)
[2016-06-15] MEDS: ALBUTEROL FS 2.5 MG/3 ML VIAL.NEB NEB SCH ×4 (00:39→19:32)
[2016-06-15] MEDS: PANTOPRAZOLE 40 MG/PACK PACK GT SCH (05:42)
[2016-06-15] MEDS: LEVOTHYROXINE SODIUM 25 MCG TABLET GT SCH (05:42)
[2016-06-15] MEDS: LACTOBACILLUS RHAMNOSUS GG 1 EACH CAP.SPRINK GT SCH (08:28)
[2016-06-15] MEDS: DOCUSATE SODIUM LIQ 100 MG/10 ML UDC GT SCH (08:28)
[2016-06-15] MEDS: CARBOXYMETHYLCELLULOSE SODIUM 0.4 ML DROPERETTE EACHEYE SCH (08:28)
[2016-06-15] MEDS: OMEGA GT SCH ×3 (08:28→17:28)
[2016-06-15] MEDS: LEVETIRACETAM SOL (5 ML) 100 MG/ML UDC GT SCH ×2 (08:28→20:17)
[2016-06-15] MEDS: MULTIVITAMINS,THERAGRAN 1 UDTAB TABLET GT SCH (08:28)
[2016-06-15] MEDS: ZINC OXIDE 30 GM TUBE TP SCH ×4 (08:29→20:25)
[2016-06-15] MEDS: ASCORBIC ACID 500 MG TABLET GT SCH (08:29)
[2016-06-15] MEDS: BLOOD SUGAR DIAGNOSTIC 1 EACH STRIP IN SCH ×2 (08:29→20:24)
[2016-06-15] MEDS: HYDROGEL DRESSING 90 GM TUBE TP SCH ×2 (08:29→20:24)
[2016-06-15] MEDS: LABETALOL HCL (100MG) 100 MG TABLET GT SCH ×2 (08:29→20:18)
[2016-06-15] MEDS: HYDROGEN PEROXIDE 480 ML BOTTLE TP SCH ×2 (08:29→20:24)
[2016-06-15] MEDS: CHOLESTYRAMINE/ASPARTAME 4 G/PKT PACKET GT SCH (12:22)
--- NOTE | 2016-06-15 14:05 | NUR ---
Seen by Dr Ramirez with no new order.
--- NOTE | 2016-06-15 17:30 | NUR ---
Seen by Becca Smith ASSEMBLER RUBBER FOOTWEAR examined pt right forearm rashes continue current treatment plan.
[2016-06-15] MEDS: CLOTRIMAZOLE 1% 15 GM TUBE TP SCH (20:24)
[2016-06-15] MEDS: VALSARTAN 80 MG TABLET GT SCH (22:00)
[2016-06-15] MEDS: GLYTROL 1,000 ML BAG GT PRN (23:37)
[2016-06-16] VITALS (8 sets, daily range): BP systolic 117–124; BP diastolic 56–67
[2016-06-16] MEDS: ALBUTEROL FS 2.5 MG/3 ML VIAL.NEB NEB SCH ×4 (01:30→19:18)
[2016-06-16] MEDS: IPRATROPIUM NEB FS 0.5 MG/2.5 ML AMPUL.NEB IH SCH ×4 (01:30→19:18)
[2016-06-16] MEDS: PANTOPRAZOLE 40 MG/PACK PACK GT SCH (05:52)
[2016-06-16] MEDS: LEVOTHYROXINE SODIUM 25 MCG TABLET GT SCH (05:52)
[2016-06-16] MEDS: LEVETIRACETAM SOL (5 ML) 100 MG/ML UDC GT SCH ×2 (08:32→20:53)
[2016-06-16] MEDS: DOCUSATE SODIUM LIQ 100 MG/10 ML UDC GT SCH (08:32)
[2016-06-16] MEDS: CARBOXYMETHYLCELLULOSE SODIUM 0.4 ML DROPERETTE EACHEYE SCH (08:32)
[2016-06-16] MEDS: OMEGA GT SCH ×3 (08:32→17:30)
[2016-06-16] MEDS: MULTIVITAMINS,THERAGRAN 1 UDTAB TABLET GT SCH (08:32)
[2016-06-16] MEDS: LACTOBACILLUS RHAMNOSUS GG 1 EACH CAP.SPRINK GT SCH (08:32)
[2016-06-16] MEDS: ASCORBIC ACID 500 MG TABLET GT SCH (08:33)
[2016-06-16] MEDS: LABETALOL HCL (100MG) 100 MG TABLET GT SCH ×2 (08:33→20:53)
[2016-06-16] MEDS: CLOTRIMAZOLE 1% 15 GM TUBE TP SCH ×2 (08:34→21:27)
[2016-06-16] MEDS: HYDROGEN PEROXIDE 480 ML BOTTLE TP SCH ×2 (08:34→21:27)
[2016-06-16] MEDS: HYDROGEL DRESSING 90 GM TUBE TP SCH ×2 (08:34→21:27)
[2016-06-16] MEDS: ZINC OXIDE 30 GM TUBE TP SCH ×4 (08:35→21:27)
[2016-06-16] MEDS: BLOOD SUGAR DIAGNOSTIC 1 EACH STRIP IN SCH ×2 (08:40→20:53)
[2016-06-16] MEDS: INSULIN REGULAR, HUMAN 100 UNIT/ML 3 ML VIAL SQ PRN ×2 (08:41→20:54)
[2016-06-16] MEDS: CHOLESTYRAMINE/ASPARTAME 4 G/PKT PACKET GT SCH (12:01)
[2016-06-16] MEDS: GLYTROL 1,000 ML BAG GT PRN (16:00)
[2016-06-16] MEDS: VALSARTAN 80 MG TABLET GT SCH (21:48)
[2016-06-17] VITALS (8 sets, daily range): BP systolic 101–133; BP diastolic 54–71
[2016-06-17] MEDS: IPRATROPIUM NEB FS 0.5 MG/2.5 ML AMPUL.NEB IH SCH ×4 (00:37→19:20)
[2016-06-17] MEDS: ALBUTEROL FS 2.5 MG/3 ML VIAL.NEB NEB SCH ×4 (00:37→19:20)
[2016-06-17] MEDS: LEVOTHYROXINE SODIUM 25 MCG TABLET GT SCH (06:02)
[2016-06-17] MEDS: PANTOPRAZOLE 40 MG/PACK PACK GT SCH (06:02)
[2016-06-17] MEDS: GLYTROL 1,000 ML BAG GT PRN ×2 (06:55→23:13)
[2016-06-17] MEDS: LABETALOL HCL (100MG) 100 MG TABLET GT SCH ×2 (08:02→21:20)
[2016-06-17] MEDS: CARBOXYMETHYLCELLULOSE SODIUM 0.4 ML DROPERETTE EACHEYE SCH (08:13)
[2016-06-17] MEDS: LACTOBACILLUS RHAMNOSUS GG 1 EACH CAP.SPRINK GT SCH (08:17)
[2016-06-17] MEDS: DOCUSATE SODIUM LIQ 100 MG/10 ML UDC GT SCH (08:17)
[2016-06-17] MEDS: LEVETIRACETAM SOL (5 ML) 100 MG/ML UDC GT SCH ×2 (08:17→21:20)
[2016-06-17] MEDS: MULTIVITAMINS,THERAGRAN 1 UDTAB TABLET GT SCH (08:19)
[2016-06-17] MEDS: OMEGA GT SCH ×3 (08:19→16:23)
[2016-06-17] MEDS: ASCORBIC ACID 500 MG TABLET GT SCH (08:19)
[2016-06-17] MEDS: CLOTRIMAZOLE 1% 15 GM TUBE TP SCH ×2 (08:21→21:22)
[2016-06-17] MEDS: HYDROGEN PEROXIDE 480 ML BOTTLE TP SCH ×2 (08:21→21:22)
[2016-06-17] MEDS: HYDROGEL DRESSING 90 GM TUBE TP SCH ×2 (08:21→21:22)
[2016-06-17] MEDS: ZINC OXIDE 30 GM TUBE TP SCH ×4 (08:21→21:22)
[2016-06-17] MEDS: BLOOD SUGAR DIAGNOSTIC 1 EACH STRIP IN SCH ×2 (08:24→21:22)
[2016-06-17] MEDS: CHOLESTYRAMINE/ASPARTAME 4 G/PKT PACKET GT SCH (12:35)
--- NOTE | 2016-06-17 13:58 | NUR ---
IDT meeting held, attended by [place] josselin. Reviewed current medications, treatments and labs. New order to discontinue Colace due to loose stool. Family has no other concern, she is very pleased with the care that her mother receives.
[2016-06-17] MEDS: INSULIN REGULAR, HUMAN 100 UNIT/ML 3 ML VIAL SQ PRN (21:21)
[2016-06-17] MEDS: VALSARTAN 80 MG TABLET GT SCH (22:00)
[2016-06-18] VITALS (8 sets, daily range): BP systolic 102–122; BP diastolic 53–75
[2016-06-18] MEDS: IPRATROPIUM NEB FS 0.5 MG/2.5 ML AMPUL.NEB IH SCH ×4 (00:36→19:40)
[2016-06-18] MEDS: ALBUTEROL FS 2.5 MG/3 ML VIAL.NEB NEB SCH ×4 (00:37→19:40)
[2016-06-18] MEDS: PANTOPRAZOLE 40 MG/PACK PACK GT SCH (06:18)
[2016-06-18] MEDS: LEVOTHYROXINE SODIUM 25 MCG TABLET GT SCH (06:18)
[2016-06-18] MEDS: LEVETIRACETAM SOL (5 ML) 100 MG/ML UDC GT SCH ×2 (09:05→21:13)
[2016-06-18] MEDS: CARBOXYMETHYLCELLULOSE SODIUM 0.4 ML DROPERETTE EACHEYE SCH (09:05)
[2016-06-18] MEDS: ASCORBIC ACID 500 MG TABLET GT SCH (09:05)
[2016-06-18] MEDS: MULTIVITAMINS,THERAGRAN 1 UDTAB TABLET GT SCH (09:05)
[2016-06-18] MEDS: LACTOBACILLUS RHAMNOSUS GG 1 EACH CAP.SPRINK GT SCH (09:05)
[2016-06-18] MEDS: LABETALOL HCL (100MG) 100 MG TABLET GT SCH ×2 (09:05→21:14)
[2016-06-18] MEDS: OMEGA GT SCH ×3 (09:05→16:06)
[2016-06-18] MEDS: CLOTRIMAZOLE 1% 15 GM TUBE TP SCH ×2 (09:11→21:41)
[2016-06-18] MEDS: BLOOD SUGAR DIAGNOSTIC 1 EACH STRIP IN SCH ×2 (09:11→21:14)
[2016-06-18] MEDS: HYDROGEN PEROXIDE 480 ML BOTTLE TP SCH ×2 (09:11→21:41)
[2016-06-18] MEDS: HYDROGEL DRESSING 90 GM TUBE TP SCH ×2 (09:11→21:41)
[2016-06-18] MEDS: ZINC OXIDE 30 GM TUBE TP SCH ×4 (09:12→21:41)
--- NOTE | 2016-06-18 10:00 | NUR ---
Marah and Maddy (daughter) visited and dyed their mother's hair. Resident had a shower in the shower room afterwards. Patient tolerated the transfer in and out of bed to the shower [facility] without episode of vomiting. Stable at this time.
[2016-06-18] MEDS: CHOLESTYRAMINE/ASPARTAME 4 G/PKT PACKET GT SCH (12:25)
[2016-06-18] MEDS: GLYTROL 1,000 ML BAG GT PRN (16:06)
[2016-06-18] MEDS: INSULIN REGULAR, HUMAN 100 UNIT/ML 3 ML VIAL SQ PRN (21:14)
[2016-06-18] MEDS: VALSARTAN 80 MG TABLET GT SCH (22:00)
[2016-06-19] VITALS (7 sets, daily range): BP systolic 101–128; BP diastolic 52–72
[2016-06-19] MEDS: ALBUTEROL FS 2.5 MG/3 ML VIAL.NEB NEB SCH ×4 (01:28→19:44)
[2016-06-19] MEDS: IPRATROPIUM NEB FS 0.5 MG/2.5 ML AMPUL.NEB IH SCH ×4 (01:28→19:44)
[2016-06-19] MEDS: PANTOPRAZOLE 40 MG/PACK PACK GT SCH (05:54)
[2016-06-19] MEDS: LEVOTHYROXINE SODIUM 25 MCG TABLET GT SCH (05:55)
[2016-06-19] MEDS: GLYTROL 1,000 ML BAG GT PRN (06:18)
[2016-06-19] MEDS: LABETALOL HCL (100MG) 100 MG TABLET GT SCH ×2 (09:00→20:33)
[2016-06-19] MEDS: CARBOXYMETHYLCELLULOSE SODIUM 0.4 ML DROPERETTE EACHEYE SCH (09:13)
[2016-06-19] MEDS: LEVETIRACETAM SOL (5 ML) 100 MG/ML UDC GT SCH ×2 (09:13→20:27)
[2016-06-19] MEDS: LACTOBACILLUS RHAMNOSUS GG 1 EACH CAP.SPRINK GT SCH (09:13)
[2016-06-19] MEDS: MULTIVITAMINS,THERAGRAN 1 UDTAB TABLET GT SCH (09:13)
[2016-06-19] MEDS: OMEGA GT SCH ×3 (09:13→17:16)
[2016-06-19] MEDS: ASCORBIC ACID 500 MG TABLET GT SCH (09:13)
[2016-06-19] MEDS: ZINC OXIDE 30 GM TUBE TP SCH ×2 (09:14→20:35)
[2016-06-19] MEDS: BLOOD SUGAR DIAGNOSTIC 1 EACH STRIP IN SCH ×2 (09:14→20:38)
[2016-06-19] MEDS: HYDROGEN PEROXIDE 480 ML BOTTLE TP SCH ×2 (09:14→20:34)
[2016-06-19] MEDS: HYDROGEL DRESSING 90 GM TUBE TP SCH ×2 (09:14→20:34)
[2016-06-19] MEDS: CLOTRIMAZOLE 1% 15 GM TUBE TP SCH ×2 (09:14→20:34)
--- NOTE | 2016-06-19 09:54 | NUR ---
Received order to continue Desitin cream to bilateral buttocks/groin fold redness for 30 more days.
[2016-06-19] MEDS: CHOLESTYRAMINE/ASPARTAME 4 G/PKT PACKET GT SCH (12:03)
[2016-06-19] MEDS: COD LIVER OIL/ZINC OXIDE 120 GM TUBE TP SCH (20:34)
[2016-06-19] MEDS: VALSARTAN 80 MG TABLET GT SCH (22:00)
[2016-06-20] VITALS (7 sets, daily range): BP systolic 111–138; BP diastolic 59–72
[2016-06-20] MEDS: ALBUTEROL FS 2.5 MG/3 ML VIAL.NEB NEB SCH ×4 (00:57→20:27)
[2016-06-20] MEDS: IPRATROPIUM NEB FS 0.5 MG/2.5 ML AMPUL.NEB IH SCH ×4 (00:58→20:27)
[2016-06-20] MEDS: PANTOPRAZOLE 40 MG/PACK PACK GT SCH (05:26)
[2016-06-20] MEDS: LEVOTHYROXINE SODIUM 25 MCG TABLET GT SCH (05:26)
[2016-06-20] MEDS: BLOOD SUGAR DIAGNOSTIC 1 EACH STRIP IN SCH ×2 (08:36→20:52)
[2016-06-20] MEDS: LEVETIRACETAM SOL (5 ML) 100 MG/ML UDC GT SCH ×2 (08:41→20:31)
[2016-06-20] MEDS: CARBOXYMETHYLCELLULOSE SODIUM 0.4 ML DROPERETTE EACHEYE SCH (08:41)
[2016-06-20] MEDS: MULTIVITAMINS,THERAGRAN 1 UDTAB TABLET GT SCH (08:41)
[2016-06-20] MEDS: LACTOBACILLUS RHAMNOSUS GG 1 EACH CAP.SPRINK GT SCH (08:41)
[2016-06-20] MEDS: OMEGA GT SCH ×3 (08:41→17:55)
[2016-06-20] MEDS: ASCORBIC ACID 500 MG TABLET GT SCH (08:42)
[2016-06-20] MEDS: LABETALOL HCL (100MG) 100 MG TABLET GT SCH ×2 (08:42→20:31)
[2016-06-20] MEDS: INSULIN REGULAR, HUMAN 100 UNIT/ML 3 ML VIAL SQ PRN (08:43)
[2016-06-20] MEDS: CLOTRIMAZOLE 1% 15 GM TUBE TP SCH ×2 (12:42→20:32)
[2016-06-20] MEDS: ZINC OXIDE 30 GM TUBE TP SCH ×2 (12:42→20:32)
[2016-06-20] MEDS: HYDROGEN PEROXIDE 480 ML BOTTLE TP SCH ×2 (12:42→20:32)
[2016-06-20] MEDS: HYDROGEL DRESSING 90 GM TUBE TP SCH ×2 (12:42→20:32)
[2016-06-20] MEDS: COD LIVER OIL/ZINC OXIDE 120 GM TUBE TP SCH ×2 (12:42→20:32)
[2016-06-20] MEDS: CHOLESTYRAMINE/ASPARTAME 4 G/PKT PACKET GT SCH (12:43)
[2016-06-20] MEDS: VALSARTAN 80 MG TABLET GT SCH (22:29)
[2016-06-21] VITALS (7 sets, daily range): BP systolic 103–121; BP diastolic 55–62
[2016-06-21] MEDS: ALBUTEROL FS 2.5 MG/3 ML VIAL.NEB NEB SCH ×4 (01:27→20:21)
[2016-06-21] MEDS: IPRATROPIUM NEB FS 0.5 MG/2.5 ML AMPUL.NEB IH SCH ×4 (01:27→20:21)
[2016-06-21] MEDS: PANTOPRAZOLE 40 MG/PACK PACK GT SCH (05:13)
[2016-06-21] MEDS: LEVOTHYROXINE SODIUM 25 MCG TABLET GT SCH (05:13)
[2016-06-21] MEDS: HYDROGEL DRESSING 90 GM TUBE TP SCH ×2 (09:00→20:51)
[2016-06-21] MEDS: CARBOXYMETHYLCELLULOSE SODIUM 0.4 ML DROPERETTE EACHEYE SCH (09:00)
[2016-06-21] MEDS: HYDROGEN PEROXIDE 480 ML BOTTLE TP SCH ×2 (09:00→20:55)
[2016-06-21] MEDS: COD LIVER OIL/ZINC OXIDE 120 GM TUBE TP SCH ×2 (09:00→20:55)
[2016-06-21] MEDS: ZINC OXIDE 30 GM TUBE TP SCH ×2 (09:00→20:55)
[2016-06-21] MEDS: BLOOD SUGAR DIAGNOSTIC 1 EACH STRIP IN SCH ×2 (09:00→20:55)
[2016-06-21] MEDS: CLOTRIMAZOLE 1% 15 GM TUBE TP SCH ×2 (09:00→20:55)
--- NOTE | 2016-06-21 09:30 | NUR ---
Seen by Dr Mnoet with no new order.
[2016-06-21] MEDS: LEVETIRACETAM SOL (5 ML) 100 MG/ML UDC GT SCH ×2 (09:50→20:50)
[2016-06-21] MEDS: LACTOBACILLUS RHAMNOSUS GG 1 EACH CAP.SPRINK GT SCH (09:50)
[2016-06-21] MEDS: [UNRECOGNIZED DRUG - OTHER] GT SCH (09:50)
[2016-06-21] MEDS: LABETALOL HCL (100MG) 100 MG TABLET GT SCH ×2 (09:50→20:51)
[2016-06-21] MEDS: ASCORBIC ACID 500 MG TABLET GT SCH (09:50)
[2016-06-21] MEDS: OMEGA GT SCH ×3 (09:50→16:33)
[2016-06-21] MEDS: INSULIN REGULAR, HUMAN 100 UNIT/ML 3 ML VIAL SQ PRN (09:59)
[2016-06-21] MEDS: CHOLESTYRAMINE/ASPARTAME 4 G/PKT PACKET GT SCH (12:00)
[2016-06-21] MEDS: VALSARTAN 80 MG TABLET GT SCH (21:13)
[2016-06-22] VITALS (7 sets, daily range): BP systolic 106–120; BP diastolic 54–76
[2016-06-22] MEDS: ALBUTEROL FS 2.5 MG/3 ML VIAL.NEB NEB SCH ×4 (01:30→19:41)
[2016-06-22] MEDS: IPRATROPIUM NEB FS 0.5 MG/2.5 ML AMPUL.NEB IH SCH ×4 (01:30→19:41)
[2016-06-22] MEDS: LEVOTHYROXINE SODIUM 25 MCG TABLET GT SCH (05:07)
[2016-06-22] MEDS: PANTOPRAZOLE 40 MG/PACK PACK GT SCH (05:07)
[2016-06-22] MEDS: LEVETIRACETAM SOL (5 ML) 100 MG/ML UDC GT SCH ×2 (09:15→21:32)
[2016-06-22] MEDS: LACTOBACILLUS RHAMNOSUS GG 1 EACH CAP.SPRINK GT SCH (09:15)
[2016-06-22] MEDS: [UNRECOGNIZED DRUG - OTHER] GT SCH (09:15)
[2016-06-22] MEDS: OMEGA GT SCH ×3 (09:15→17:42)
[2016-06-22] MEDS: CARBOXYMETHYLCELLULOSE SODIUM 0.4 ML DROPERETTE EACHEYE SCH (09:15)
[2016-06-22] MEDS: ZINC OXIDE 30 GM TUBE TP SCH ×2 (09:16→21:38)
[2016-06-22] MEDS: COD LIVER OIL/ZINC OXIDE 120 GM TUBE TP SCH ×2 (09:16→21:37)
[2016-06-22] MEDS: HYDROGEL DRESSING 90 GM TUBE TP SCH ×2 (09:16→21:37)
[2016-06-22] MEDS: BLOOD SUGAR DIAGNOSTIC 1 EACH STRIP IN SCH ×2 (09:16→21:37)
[2016-06-22] MEDS: LABETALOL HCL (100MG) 100 MG TABLET GT SCH ×2 (09:16→21:34)
[2016-06-22] MEDS: HYDROGEN PEROXIDE 480 ML BOTTLE TP SCH ×2 (09:16→21:37)
[2016-06-22] MEDS: CLOTRIMAZOLE 1% 15 GM TUBE TP SCH ×2 (09:16→21:37)
[2016-06-22] MEDS: ASCORBIC ACID 500 MG TABLET GT SCH (09:16)
[2016-06-22] MEDS: CHOLESTYRAMINE/ASPARTAME 4 G/PKT PACKET GT SCH (12:47)
[2016-06-22] MEDS: GLYTROL 1,000 ML BAG GT PRN (21:38)
[2016-06-22] MEDS: VALSARTAN 80 MG TABLET GT SCH (22:10)
[2016-06-22] MEDS: INSULIN REGULAR, HUMAN 100 UNIT/ML 3 ML VIAL SQ PRN (22:25)
[2016-06-23] VITALS (8 sets, daily range): BP systolic 100–136; BP diastolic 50–101
[2016-06-23] MEDS: ALBUTEROL FS 2.5 MG/3 ML VIAL.NEB NEB SCH ×4 (01:14→21:23)
[2016-06-23] MEDS: IPRATROPIUM NEB FS 0.5 MG/2.5 ML AMPUL.NEB IH SCH ×4 (01:14→21:23)
[2016-06-23] MEDS: PANTOPRAZOLE 40 MG/PACK PACK GT SCH (06:05)
[2016-06-23] MEDS: LEVOTHYROXINE SODIUM 25 MCG TABLET GT SCH (06:05)
[2016-06-23] MEDS: CARBOXYMETHYLCELLULOSE SODIUM 0.4 ML DROPERETTE EACHEYE SCH (08:58)
[2016-06-23] MEDS: LEVETIRACETAM SOL (5 ML) 100 MG/ML UDC GT SCH ×2 (09:01→21:32)
[2016-06-23] MEDS: LABETALOL HCL (100MG) 100 MG TABLET GT SCH ×2 (09:01→21:33)
[2016-06-23] MEDS: LACTOBACILLUS RHAMNOSUS GG 1 EACH CAP.SPRINK GT SCH (09:01)
[2016-06-23] MEDS: [UNRECOGNIZED DRUG - OTHER] GT SCH (09:02)
[2016-06-23] MEDS: OMEGA GT SCH ×3 (09:04→16:25)
[2016-06-23] MEDS: GLYTROL 1,000 ML BAG GT PRN ×2 (09:08→21:36)
[2016-06-23] MEDS: ASCORBIC ACID 500 MG TABLET GT SCH (09:15)
[2016-06-23] MEDS: HYDROGEL DRESSING 90 GM TUBE TP SCH ×2 (09:16→21:34)
[2016-06-23] MEDS: BLOOD SUGAR DIAGNOSTIC 1 EACH STRIP IN SCH ×2 (09:16→21:33)
[2016-06-23] MEDS: COD LIVER OIL/ZINC OXIDE 120 GM TUBE TP SCH ×2 (09:16→21:34)
[2016-06-23] MEDS: HYDROGEN PEROXIDE 480 ML BOTTLE TP SCH ×2 (09:16→21:34)
[2016-06-23] MEDS: ZINC OXIDE 30 GM TUBE TP SCH ×2 (09:17→21:34)
[2016-06-23] MEDS: CLOTRIMAZOLE 1% 15 GM TUBE TP SCH ×2 (09:17→21:34)
[2016-06-23] MEDS: CHOLESTYRAMINE/ASPARTAME 4 G/PKT PACKET GT SCH (12:13)
--- NOTE | 2016-06-23 18:02 | NUR ---
RN NOTES PT RESTING COMFORTABLY. NOT IN ANY DISTRESS. VENT DEPENDENT AND SETTINGS ORDERED. BREATHING EVEN AND UNLABORED. NO SIGN OF PAIN OR FACIAL GRIMACING. GTF ONGOING, TOLERATING WELL, O RESIDUAL. AM/PM CARE RENDERED AND PRN. PRESCRIBED WOUND TREATMENT DONE. TURNED AND REPOSITIONED. ALL DUE MEDS ADMINISTERED DURING THE SHIFT. BS CHECK DONE ACCORDINGLY. ALL NEEDS MET. SAFETY MEASURES, SUCTION INTERMITTENTLY. WILL ENDORSE TO NEXT SHIFT FOR SANDY.
[2016-06-23] MEDS: INSULIN REGULAR, HUMAN 100 UNIT/ML 3 ML VIAL SQ PRN (21:33)
[2016-06-23] MEDS: VALSARTAN 80 MG TABLET GT SCH (22:00)
[2016-06-24] VITALS (9 sets, daily range): BP systolic 92–115; BP diastolic 48–63
[2016-06-24] MEDS: ALBUTEROL FS 2.5 MG/3 ML VIAL.NEB NEB SCH ×4 (01:22→19:45)
[2016-06-24] MEDS: IPRATROPIUM NEB FS 0.5 MG/2.5 ML AMPUL.NEB IH SCH ×4 (01:22→19:45)
[2016-06-24] MEDS: PANTOPRAZOLE 40 MG/PACK PACK GT SCH (05:49)
[2016-06-24] MEDS: LEVOTHYROXINE SODIUM 25 MCG TABLET GT SCH (05:49)
[2016-06-24] MEDS: LACTOBACILLUS RHAMNOSUS GG 1 EACH CAP.SPRINK GT SCH (08:48)
[2016-06-24] MEDS: CARBOXYMETHYLCELLULOSE SODIUM 0.4 ML DROPERETTE EACHEYE SCH (08:48)
[2016-06-24] MEDS: LEVETIRACETAM SOL (5 ML) 100 MG/ML UDC GT SCH ×2 (08:49→21:29)
[2016-06-24] MEDS: OMEGA GT SCH ×3 (08:49→17:23)
[2016-06-24] MEDS: [UNRECOGNIZED DRUG - OTHER] GT SCH (08:49)
[2016-06-24] MEDS: LABETALOL HCL (100MG) 100 MG TABLET GT SCH ×2 (08:50→21:29)
[2016-06-24] MEDS: ASCORBIC ACID 500 MG TABLET GT SCH (08:51)
[2016-06-24] MEDS: BLOOD SUGAR DIAGNOSTIC 1 EACH STRIP IN SCH ×2 (09:00→21:29)
[2016-06-24] MEDS: HYDROGEL DRESSING 90 GM TUBE TP SCH ×2 (09:04→21:29)
[2016-06-24] MEDS: HYDROGEN PEROXIDE 480 ML BOTTLE TP SCH ×2 (09:04→21:30)
[2016-06-24] MEDS: ZINC OXIDE 30 GM TUBE TP SCH ×2 (09:04→21:30)
[2016-06-24] MEDS: hydrALAZINE HCL 10 MG TABLET GT PRN ×2 (09:04→12:19)
[2016-06-24] MEDS: CLOTRIMAZOLE 1% 15 GM TUBE TP SCH ×2 (09:04→21:30)
[2016-06-24] MEDS: COD LIVER OIL/ZINC OXIDE 120 GM TUBE TP SCH ×2 (09:04→21:30)
[2016-06-24] MEDS: GLYTROL 1,000 ML BAG GT PRN (12:07)
[2016-06-24] MEDS: CHOLESTYRAMINE/ASPARTAME 4 G/PKT PACKET GT SCH (12:07)
[2016-06-24] MEDS: INSULIN REGULAR, HUMAN 100 UNIT/ML 3 ML VIAL SQ PRN ×2 (12:14→21:30)
--- NOTE | 2016-06-24 18:10 | NUR ---
Seen and examined by Dr. Ramirez, no new order given.
[2016-06-24] MEDS: VALSARTAN 80 MG TABLET GT SCH (22:00)
[2016-06-25] VITALS (7 sets, daily range): BP systolic 114–139; BP diastolic 58–73
[2016-06-25] MEDS: GLYTROL 1,000 ML BAG GT PRN ×2 (01:06→16:31)
[2016-06-25] MEDS: ALBUTEROL FS 2.5 MG/3 ML VIAL.NEB NEB SCH ×4 (01:42→19:30)
[2016-06-25] MEDS: IPRATROPIUM NEB FS 0.5 MG/2.5 ML AMPUL.NEB IH SCH ×4 (01:42→19:30)
[2016-06-25] MEDS: PANTOPRAZOLE 40 MG/PACK PACK GT SCH (06:20)
[2016-06-25] MEDS: LEVOTHYROXINE SODIUM 25 MCG TABLET GT SCH (06:20)
[2016-06-25] MEDS: CARBOXYMETHYLCELLULOSE SODIUM 0.4 ML DROPERETTE EACHEYE SCH (09:10)
[2016-06-25] MEDS: LACTOBACILLUS RHAMNOSUS GG 1 EACH CAP.SPRINK GT SCH (09:10)
[2016-06-25] MEDS: LEVETIRACETAM SOL (5 ML) 100 MG/ML UDC GT SCH ×2 (09:10→21:06)
[2016-06-25] MEDS: OMEGA GT SCH ×3 (09:10→16:23)
[2016-06-25] MEDS: [UNRECOGNIZED DRUG - OTHER] GT SCH (09:10)
[2016-06-25] MEDS: HYDROGEL DRESSING 90 GM TUBE TP SCH ×2 (09:11→21:07)
[2016-06-25] MEDS: ASCORBIC ACID 500 MG TABLET GT SCH (09:11)
[2016-06-25] MEDS: BLOOD SUGAR DIAGNOSTIC 1 EACH STRIP IN SCH ×2 (09:11→21:07)
[2016-06-25] MEDS: LABETALOL HCL (100MG) 100 MG TABLET GT SCH ×2 (09:11→21:07)
[2016-06-25] MEDS: COD LIVER OIL/ZINC OXIDE 120 GM TUBE TP SCH ×2 (09:11→21:07)
[2016-06-25] MEDS: HYDROGEN PEROXIDE 480 ML BOTTLE TP SCH ×2 (09:11→21:07)
[2016-06-25] MEDS: CLOTRIMAZOLE 1% 15 GM TUBE TP SCH ×2 (09:11→21:07)
[2016-06-25] MEDS: ZINC OXIDE 30 GM TUBE TP SCH ×2 (09:12→21:07)
[2016-06-25] MEDS: INSULIN REGULAR, HUMAN 100 UNIT/ML 3 ML VIAL SQ PRN (09:13)
[2016-06-25] MEDS: CHOLESTYRAMINE/ASPARTAME 4 G/PKT PACKET GT SCH (12:42)
[2016-06-25] MEDS: hydrALAZINE HCL 10 MG TABLET GT PRN ×2 (12:42→16:23)
[2016-06-25] MEDS: VALSARTAN 80 MG TABLET GT SCH (21:08)
[2016-06-26] VITALS (7 sets, daily range): BP systolic 98–124; BP diastolic 50–66
[2016-06-26] MEDS: IPRATROPIUM NEB FS 0.5 MG/2.5 ML AMPUL.NEB IH SCH ×4 (01:55→19:29)
[2016-06-26] MEDS: ALBUTEROL FS 2.5 MG/3 ML VIAL.NEB NEB SCH ×4 (01:55→19:29)
[2016-06-26] MEDS: LEVOTHYROXINE SODIUM 25 MCG TABLET GT SCH (05:28)
[2016-06-26] MEDS: PANTOPRAZOLE 40 MG/PACK PACK GT SCH (05:28)
[2016-06-26] MEDS: GLYTROL 1,000 ML BAG GT PRN (05:30)
[2016-06-26] MEDS: LABETALOL HCL (100MG) 100 MG TABLET GT SCH ×2 (09:00→20:23)
[2016-06-26] MEDS: LACTOBACILLUS RHAMNOSUS GG 1 EACH CAP.SPRINK GT SCH (09:26)
[2016-06-26] MEDS: [UNRECOGNIZED DRUG - OTHER] GT SCH (09:26)
[2016-06-26] MEDS: OMEGA GT SCH ×3 (09:26→17:41)
[2016-06-26] MEDS: LEVETIRACETAM SOL (5 ML) 100 MG/ML UDC GT SCH ×2 (09:26→20:23)
[2016-06-26] MEDS: CARBOXYMETHYLCELLULOSE SODIUM 0.4 ML DROPERETTE EACHEYE SCH (09:26)
[2016-06-26] MEDS: ASCORBIC ACID 500 MG TABLET GT SCH (09:27)
[2016-06-26] MEDS: HYDROGEL DRESSING 90 GM TUBE TP SCH ×2 (09:31→20:23)
[2016-06-26] MEDS: COD LIVER OIL/ZINC OXIDE 120 GM TUBE TP SCH ×2 (09:31→20:23)
[2016-06-26] MEDS: BLOOD SUGAR DIAGNOSTIC 1 EACH STRIP IN SCH ×2 (09:31→20:23)
[2016-06-26] MEDS: ZINC OXIDE 30 GM TUBE TP SCH ×2 (09:32→20:24)
[2016-06-26] MEDS: CLOTRIMAZOLE 1% 15 GM TUBE TP SCH ×2 (09:32→20:24)
[2016-06-26] MEDS: HYDROGEN PEROXIDE 480 ML BOTTLE TP SCH ×2 (09:32→20:24)
[2016-06-26] MEDS: CHOLESTYRAMINE/ASPARTAME 4 G/PKT PACKET GT SCH (12:22)
[2016-06-26] MEDS: VALSARTAN 80 MG TABLET GT SCH (22:52)
[2016-06-27] VITALS (8 sets, daily range): BP systolic 115–131; BP diastolic 59–73
[2016-06-27] MEDS: ALBUTEROL FS 2.5 MG/3 ML VIAL.NEB NEB SCH ×4 (00:51→19:24)
[2016-06-27] MEDS: IPRATROPIUM NEB FS 0.5 MG/2.5 ML AMPUL.NEB IH SCH ×4 (00:51→19:24)
[2016-06-27] MEDS: LEVOTHYROXINE SODIUM 25 MCG TABLET GT SCH (05:43)
[2016-06-27] MEDS: PANTOPRAZOLE 40 MG/PACK PACK GT SCH (05:43)
[2016-06-27] MEDS: LEVETIRACETAM SOL (5 ML) 100 MG/ML UDC GT SCH ×2 (08:02→20:17)
[2016-06-27] MEDS: [UNRECOGNIZED DRUG - OTHER] GT SCH (08:03)
[2016-06-27] MEDS: CARBOXYMETHYLCELLULOSE SODIUM 0.4 ML DROPERETTE EACHEYE SCH (08:03)
[2016-06-27] MEDS: OMEGA GT SCH ×3 (08:03→16:28)
[2016-06-27] MEDS: LACTOBACILLUS RHAMNOSUS GG 1 EACH CAP.SPRINK GT SCH (08:03)
[2016-06-27] MEDS: LABETALOL HCL (100MG) 100 MG TABLET GT SCH ×2 (08:03→20:18)
[2016-06-27] MEDS: ASCORBIC ACID 500 MG TABLET GT SCH (08:03)
[2016-06-27] MEDS: BLOOD SUGAR DIAGNOSTIC 1 EACH STRIP IN SCH ×2 (08:03→20:18)
[2016-06-27] MEDS: HYDROGEL DRESSING 90 GM TUBE TP SCH ×2 (08:04→20:23)
[2016-06-27] MEDS: COD LIVER OIL/ZINC OXIDE 120 GM TUBE TP SCH ×2 (08:04→20:23)
[2016-06-27] MEDS: CLOTRIMAZOLE 1% 15 GM TUBE TP SCH ×2 (08:05→20:23)
[2016-06-27] MEDS: HYDROGEN PEROXIDE 480 ML BOTTLE TP SCH ×2 (08:05→20:23)
[2016-06-27] MEDS: ZINC OXIDE 30 GM TUBE TP SCH ×2 (08:05→20:27)
[2016-06-27] MEDS: CHOLESTYRAMINE/ASPARTAME 4 G/PKT PACKET GT SCH (12:46)
[2016-06-27] MEDS: VALSARTAN 80 MG TABLET GT SCH (22:01)
[2016-06-28] VITALS (8 sets, daily range): BP systolic 103–134; BP diastolic 44–88
[2016-06-28] MEDS: IPRATROPIUM NEB FS 0.5 MG/2.5 ML AMPUL.NEB IH SCH ×4 (01:19→19:12)
[2016-06-28] MEDS: ALBUTEROL FS 2.5 MG/3 ML VIAL.NEB NEB SCH ×4 (01:19→19:12)
[2016-06-28] MEDS: PANTOPRAZOLE 40 MG/PACK PACK GT SCH (05:50)
[2016-06-28] MEDS: LEVOTHYROXINE SODIUM 25 MCG TABLET GT SCH (05:50)
[2016-06-28] MEDS: LEVETIRACETAM SOL (5 ML) 100 MG/ML UDC GT SCH ×2 (09:52→20:48)
[2016-06-28] MEDS: [UNRECOGNIZED DRUG - OTHER] GT SCH (09:52)
[2016-06-28] MEDS: LABETALOL HCL (100MG) 100 MG TABLET GT SCH ×2 (09:52→20:48)
[2016-06-28] MEDS: OMEGA GT SCH ×3 (09:52→16:35)
[2016-06-28] MEDS: LACTOBACILLUS RHAMNOSUS GG 1 EACH CAP.SPRINK GT SCH (09:52)
[2016-06-28] MEDS: ASCORBIC ACID 500 MG TABLET GT SCH (09:52)
[2016-06-28] MEDS: CARBOXYMETHYLCELLULOSE SODIUM 0.4 ML DROPERETTE EACHEYE SCH (09:52)
[2016-06-28] MEDS: ZINC OXIDE 30 GM TUBE TP SCH ×2 (09:53→20:49)
[2016-06-28] MEDS: HYDROGEL DRESSING 90 GM TUBE TP SCH ×2 (09:53→20:49)
[2016-06-28] MEDS: COD LIVER OIL/ZINC OXIDE 120 GM TUBE TP SCH ×2 (09:53→20:49)
[2016-06-28] MEDS: CLOTRIMAZOLE 1% 15 GM TUBE TP SCH ×2 (09:53→20:49)
[2016-06-28] MEDS: HYDROGEN PEROXIDE 480 ML BOTTLE TP SCH ×2 (09:53→20:49)
[2016-06-28] MEDS: BLOOD SUGAR DIAGNOSTIC 1 EACH STRIP IN SCH ×2 (09:56→20:48)
[2016-06-28] MEDS: INSULIN REGULAR, HUMAN 100 UNIT/ML 3 ML VIAL SQ PRN (09:57)
[2016-06-28] MEDS: CHOLESTYRAMINE/ASPARTAME 4 G/PKT PACKET GT SCH (12:52)
[2016-06-28] MEDS: VALSARTAN 80 MG TABLET GT SCH (22:25)
[2016-06-29] VITALS (7 sets, daily range): BP systolic 101–129; BP diastolic 51–75
[2016-06-29] MEDS: ALBUTEROL FS 2.5 MG/3 ML VIAL.NEB NEB SCH ×4 (00:56→20:39)
[2016-06-29] MEDS: IPRATROPIUM NEB FS 0.5 MG/2.5 ML AMPUL.NEB IH SCH ×4 (00:56→20:39)
[2016-06-29] MEDS: PANTOPRAZOLE 40 MG/PACK PACK GT SCH (05:41)
[2016-06-29] MEDS: LEVOTHYROXINE SODIUM 25 MCG TABLET GT SCH (05:41)
--- NOTE | 2016-06-29 06:02 | NUR ---
RN NOTES Noted pt with right and left underarm rash. Received new order from Dr. Ramirez, noted and carried out. Notified daughter, Reyna.
[2016-06-29] MEDS: HYDROGEL DRESSING 90 GM TUBE TP SCH ×2 (09:00→20:54)
[2016-06-29] MEDS: BLOOD SUGAR DIAGNOSTIC 1 EACH STRIP IN SCH ×2 (09:00→20:53)
[2016-06-29] MEDS: CLOTRIMAZOLE 1% 15 GM TUBE TP SCH ×2 (09:00→20:54)
[2016-06-29] MEDS: ZINC OXIDE 30 GM TUBE TP SCH ×2 (09:00→20:54)
[2016-06-29] MEDS: COD LIVER OIL/ZINC OXIDE 120 GM TUBE TP SCH ×2 (09:00→20:54)
[2016-06-29] MEDS: HYDROGEN PEROXIDE 480 ML BOTTLE TP SCH ×2 (09:00→20:54)
[2016-06-29] MEDS: NYSTATIN TOP POWDER 15 GM BOTTLE TP SCH ×2 (09:00→20:54)
[2016-06-29] MEDS ORDERED: NYSTATIN TOP POWDER 15 GM BOTTLE TP SCH ×2 (09:00→09:30)
[2016-06-29] MEDS: LEVETIRACETAM SOL (5 ML) 100 MG/ML UDC GT SCH ×2 (09:58→20:53)
[2016-06-29] MEDS: CARBOXYMETHYLCELLULOSE SODIUM 0.4 ML DROPERETTE EACHEYE SCH (09:58)
[2016-06-29] MEDS: OMEGA GT SCH ×3 (09:58→17:43)
[2016-06-29] MEDS: LABETALOL HCL (100MG) 100 MG TABLET GT SCH ×2 (09:58→20:01)
[2016-06-29] MEDS: LACTOBACILLUS RHAMNOSUS GG 1 EACH CAP.SPRINK GT SCH (09:58)
[2016-06-29] MEDS: [UNRECOGNIZED DRUG - OTHER] GT SCH (09:58)
[2016-06-29] MEDS: ASCORBIC ACID 500 MG TABLET GT SCH (09:58)
[2016-06-29] MEDS: CHOLESTYRAMINE/ASPARTAME 4 G/PKT PACKET GT SCH (11:21)
--- NOTE | 2016-06-29 13:17 | NUR ---
Paged Sustainability Project Coordinator regarding patients weight gain. Left a voice message multiple times. Waiting for response from yeast cake cutter
[2016-06-29] MEDS: VALSARTAN 80 MG TABLET GT SCH (22:20)
[2016-06-30] VITALS (8 sets, daily range): BP systolic 98–123; BP diastolic 53–75
[2016-06-30] MEDS: GLYTROL 1,000 ML BAG GT PRN (01:03)
[2016-06-30] MEDS: ALBUTEROL FS 2.5 MG/3 ML VIAL.NEB NEB SCH ×4 (01:53→20:09)
[2016-06-30] MEDS: IPRATROPIUM NEB FS 0.5 MG/2.5 ML AMPUL.NEB IH SCH ×4 (01:53→20:09)
[2016-06-30] MEDS: LEVOTHYROXINE SODIUM 25 MCG TABLET GT SCH (05:44)
[2016-06-30] MEDS: PANTOPRAZOLE 40 MG/PACK PACK GT SCH (05:44)
[2016-06-30] MEDS: CARBOXYMETHYLCELLULOSE SODIUM 0.4 ML DROPERETTE EACHEYE SCH (08:48)
[2016-06-30] MEDS: ASCORBIC ACID 500 MG TABLET GT SCH (08:48)
[2016-06-30] MEDS: HYDROGEN PEROXIDE 480 ML BOTTLE TP SCH ×2 (08:48→20:43)
[2016-06-30] MEDS: [UNRECOGNIZED DRUG - OTHER] GT SCH (08:48)
[2016-06-30] MEDS: LABETALOL HCL (100MG) 100 MG TABLET GT SCH ×2 (08:48→20:43)
[2016-06-30] MEDS: LACTOBACILLUS RHAMNOSUS GG 1 EACH CAP.SPRINK GT SCH (08:48)
[2016-06-30] MEDS: BLOOD SUGAR DIAGNOSTIC 1 EACH STRIP IN SCH ×2 (08:48→20:43)
[2016-06-30] MEDS: HYDROGEL DRESSING 90 GM TUBE TP SCH ×2 (08:48→20:43)
[2016-06-30] MEDS: LEVETIRACETAM SOL (5 ML) 100 MG/ML UDC GT SCH ×2 (08:48→20:42)
[2016-06-30] MEDS: OMEGA GT SCH ×3 (08:48→16:50)
[2016-06-30] MEDS: COD LIVER OIL/ZINC OXIDE 120 GM TUBE TP SCH ×2 (08:48→20:43)
[2016-06-30] MEDS: NYSTATIN TOP POWDER 15 GM BOTTLE TP SCH ×2 (08:49→20:43)
[2016-06-30] MEDS: ZINC OXIDE 30 GM TUBE TP SCH ×2 (08:49→20:43)
[2016-06-30] MEDS: CLOTRIMAZOLE 1% 15 GM TUBE TP SCH ×2 (08:49→20:43)
[2016-06-30] MEDS: CHOLESTYRAMINE/ASPARTAME 4 G/PKT PACKET GT SCH (12:24)
--- NOTE | 2016-06-30 17:15 | NUR ---
Received order to decrease feeding rate of Glytrol to 60 mL/hr x 20 hours, give Prostat 30 mL via GT daily, and do weekly weight x 2. Bottle Hop will see pt again in 2 weeks. Notified Reyna.
[2016-06-30] MEDS ORDERED: GLYTROL 1,000 ML BAG GT PRN ×2 (17:30→19:48)
[2016-06-30] MEDS: INSULIN REGULAR, HUMAN 100 UNIT/ML 3 ML VIAL SQ PRN (20:44)
[2016-06-30] MEDS: VALSARTAN 80 MG TABLET GT SCH (22:04)
[2016-07-01] MEDS: IPRATROPIUM NEB FS 0.5 MG/2.5 ML AMPUL.NEB IH SCH ×4 (01:54→19:29)
[2016-07-01] MEDS: ALBUTEROL FS 2.5 MG/3 ML VIAL.NEB NEB SCH ×4 (01:54→19:29)
[2016-07-01 02:15] VITALS: BP 109/75
[2016-07-01 05:10] VITALS: BP 102/70
[2016-07-01] MEDS: LEVOTHYROXINE SODIUM 25 MCG TABLET GT SCH (05:13)
[2016-07-01] MEDS: PANTOPRAZOLE 40 MG/PACK PACK GT SCH (05:13)
[2016-07-01 07:56] VITALS: BP 116/78
[2016-07-01] MEDS: HYDROGEN PEROXIDE 480 ML BOTTLE TP SCH ×2 (09:00→20:40)
[2016-07-01] MEDS: ZINC OXIDE 30 GM TUBE TP SCH (09:00)
[2016-07-01] MEDS: NYSTATIN TOP POWDER 15 GM BOTTLE TP SCH ×2 (09:00→20:40)
[2016-07-01] MEDS: HYDROGEL DRESSING 90 GM TUBE TP SCH (09:00)
[2016-07-01] MEDS: PROSTAT (PYXIS) 30 ML UDC GT SCH (09:00)
[2016-07-01] MEDS: COD LIVER OIL/ZINC OXIDE 120 GM TUBE TP SCH ×2 (09:00→20:40)
[2016-07-01] MEDS: CLOTRIMAZOLE 1% 15 GM TUBE TP SCH ×2 (09:00→20:40)
[2016-07-01] MEDS: LEVETIRACETAM SOL (5 ML) 100 MG/ML UDC GT SCH ×2 (09:45→20:39)
[2016-07-01] MEDS: [UNRECOGNIZED DRUG - OTHER] GT SCH (09:45)
[2016-07-01] MEDS: PROSOURCE / PROSTAT (PYXIS) 30 ML UDC GT SCH (09:45)
[2016-07-01] MEDS: CARBOXYMETHYLCELLULOSE SODIUM 0.4 ML DROPERETTE EACHEYE SCH (09:45)
[2016-07-01] MEDS: OMEGA GT SCH ×3 (09:45→17:30)
[2016-07-01] MEDS: LACTOBACILLUS RHAMNOSUS GG 1 EACH CAP.SPRINK GT SCH (09:45)
[2016-07-01] MEDS: ASCORBIC ACID 500 MG TABLET GT SCH (09:46)
[2016-07-01] MEDS: hydrALAZINE HCL 10 MG TABLET GT PRN (09:46)
[2016-07-01] MEDS: INSULIN REGULAR, HUMAN 100 UNIT/ML 3 ML VIAL SQ PRN ×2 (09:46→20:41)
[2016-07-01] MEDS: LABETALOL HCL (100MG) 100 MG TABLET GT SCH ×2 (09:46→20:40)
[2016-07-01] MEDS: BLOOD SUGAR DIAGNOSTIC 1 EACH STRIP IN SCH ×2 (09:46→20:40)
[2016-07-01 12:00] VITALS: BP 98/60
[2016-07-01] MEDS: CHOLESTYRAMINE/ASPARTAME 4 G/PKT PACKET GT SCH (12:00)
[2016-07-01] MEDS: GLYTROL 1,000 ML BAG GT PRN (19:41)
[2016-07-01 21:34] VITALS: BP 122/76
[2016-07-01] MEDS: VALSARTAN 80 MG TABLET GT SCH (22:12)
[2016-07-02] VITALS (8 sets, daily range): BP systolic 92–109; BP diastolic 46–72
[2016-07-02] MEDS: IPRATROPIUM NEB FS 0.5 MG/2.5 ML AMPUL.NEB IH SCH ×4 (01:19→19:08)
[2016-07-02] MEDS: ALBUTEROL FS 2.5 MG/3 ML VIAL.NEB NEB SCH ×4 (01:19→19:08)
[2016-07-02] MEDS: PANTOPRAZOLE 40 MG/PACK PACK GT SCH (05:17)
[2016-07-02] MEDS: LEVOTHYROXINE SODIUM 25 MCG TABLET GT SCH (05:17)
[2016-07-02] MEDS: PROSTAT (PYXIS) 30 ML UDC GT SCH (09:00)
[2016-07-02] MEDS: BLOOD SUGAR DIAGNOSTIC 1 EACH STRIP IN SCH ×2 (09:18→21:12)
[2016-07-02] MEDS: INSULIN REGULAR, HUMAN 100 UNIT/ML 3 ML VIAL SQ PRN (09:19)
[2016-07-02] MEDS: LACTOBACILLUS RHAMNOSUS GG 1 EACH CAP.SPRINK GT SCH (09:50)
[2016-07-02] MEDS: LABETALOL HCL (100MG) 100 MG TABLET GT SCH ×2 (09:50→21:00)
[2016-07-02] MEDS: OMEGA GT SCH ×3 (09:50→16:51)
[2016-07-02] MEDS: CLOTRIMAZOLE 1% 15 GM TUBE TP SCH ×2 (09:50→21:12)
[2016-07-02] MEDS: LEVETIRACETAM SOL (5 ML) 100 MG/ML UDC GT SCH ×2 (09:50→21:11)
[2016-07-02] MEDS: NYSTATIN TOP POWDER 15 GM BOTTLE TP SCH ×2 (09:50→21:12)
[2016-07-02] MEDS: CARBOXYMETHYLCELLULOSE SODIUM 0.4 ML DROPERETTE EACHEYE SCH (09:50)
[2016-07-02] MEDS: COD LIVER OIL/ZINC OXIDE 120 GM TUBE TP SCH ×2 (09:50→21:12)
[2016-07-02] MEDS: ASCORBIC ACID 500 MG TABLET GT SCH (09:50)
[2016-07-02] MEDS: HYDROGEN PEROXIDE 480 ML BOTTLE TP SCH ×2 (09:50→21:12)
[2016-07-02] MEDS: [UNRECOGNIZED DRUG - OTHER] GT SCH (09:50)
[2016-07-02] MEDS: PROSOURCE / PROSTAT (PYXIS) 30 ML UDC GT SCH (09:50)
--- NOTE | 2016-07-02 10:59 | NUR ---
Resident's daughters Marah and Maddy visited. Family assisted LADLE BUILDER in AM care. Maddy concern about the sacral decubitus and suggested if she could bring a donut pillow for her mother to relieve pressure in the sacral area. Informed her that patient is already on special mattress and it is a pressure relieving device. She verbalized that incontinence and immobility are contributory factors in developing pressure ulcers but stated " I just want to do something for my mother, if there i something else that I can do to let me know" Assured her that patient being turned and repositioned & kept clean and dry. Marah took red pillow, a printed Lincoln Marielena in a cloth and 2 pairs of socks. She stated that she will wash it and return it back.
[2016-07-02] MEDS: CHOLESTYRAMINE/ASPARTAME 4 G/PKT PACKET GT SCH (12:34)
[2016-07-02] MEDS: hydrALAZINE HCL 10 MG TABLET GT PRN ×2 (12:34→17:23)
[2016-07-02] MEDS: GLYTROL 1,000 ML BAG GT PRN (16:54)
--- NOTE | 2016-07-02 20:00 | NUR ---
Marielena Jeong, daughter visiting & notified that room mate placed on contact isolation and will therefore observe necessary precaution when handling patient's room mate.
[2016-07-02] MEDS: VALSARTAN 80 MG TABLET GT SCH (21:12)
[2016-07-03] VITALS (7 sets, daily range): BP systolic 114–123; BP diastolic 58–65
[2016-07-03] MEDS: ALBUTEROL FS 2.5 MG/3 ML VIAL.NEB NEB SCH ×4 (01:39→20:26)
[2016-07-03] MEDS: IPRATROPIUM NEB FS 0.5 MG/2.5 ML AMPUL.NEB IH SCH ×4 (01:39→20:26)
[2016-07-03] MEDS: LEVOTHYROXINE SODIUM 25 MCG TABLET GT SCH (05:33)
[2016-07-03] MEDS: GLYTROL 1,000 ML BAG GT PRN (05:33)
[2016-07-03] MEDS: PANTOPRAZOLE 40 MG/PACK PACK GT SCH (05:33)
[2016-07-03] MEDS: LACTOBACILLUS RHAMNOSUS GG 1 EACH CAP.SPRINK GT SCH (08:42)
[2016-07-03] MEDS: OMEGA GT SCH ×3 (08:42→16:30)
[2016-07-03] MEDS: PROSOURCE / PROSTAT (PYXIS) 30 ML UDC GT SCH (08:43)
[2016-07-03] MEDS: LABETALOL HCL (100MG) 100 MG TABLET GT SCH ×2 (08:43→21:00)
[2016-07-03] MEDS: [UNRECOGNIZED DRUG - OTHER] GT SCH (08:43)
[2016-07-03] MEDS: LEVETIRACETAM SOL (5 ML) 100 MG/ML UDC GT SCH ×2 (08:43→21:20)
[2016-07-03] MEDS: ASCORBIC ACID 500 MG TABLET GT SCH (08:44)
[2016-07-03] MEDS: CARBOXYMETHYLCELLULOSE SODIUM 0.4 ML DROPERETTE EACHEYE SCH (08:44)
[2016-07-03] MEDS: BLOOD SUGAR DIAGNOSTIC 1 EACH STRIP IN SCH ×2 (08:47→21:45)
[2016-07-03] MEDS: INSULIN REGULAR, HUMAN 100 UNIT/ML 3 ML VIAL SQ PRN ×2 (08:49→21:45)
[2016-07-03] MEDS: COD LIVER OIL/ZINC OXIDE 120 GM TUBE TP SCH ×2 (08:58→21:21)
[2016-07-03] MEDS: HYDROGEN PEROXIDE 480 ML BOTTLE TP SCH ×2 (08:58→21:21)
[2016-07-03] MEDS: CLOTRIMAZOLE 1% 15 GM TUBE TP SCH ×2 (08:59→21:21)
[2016-07-03] MEDS: NYSTATIN TOP POWDER 15 GM BOTTLE TP SCH ×2 (08:59→21:21)
[2016-07-03] MEDS: PROSTAT (PYXIS) 30 ML UDC GT SCH (09:00)
[2016-07-03] MEDS: CHOLESTYRAMINE/ASPARTAME 4 G/PKT PACKET GT SCH (12:00)
[2016-07-03] MEDS: VALSARTAN 80 MG TABLET GT SCH (22:11)
[2016-07-04] VITALS (7 sets, daily range): BP systolic 60–132; BP diastolic 52–67
[2016-07-04] MEDS: ALBUTEROL FS 2.5 MG/3 ML VIAL.NEB NEB SCH ×4 (01:53→19:30)
[2016-07-04] MEDS: IPRATROPIUM NEB FS 0.5 MG/2.5 ML AMPUL.NEB IH SCH ×4 (01:53→19:30)
[2016-07-04] MEDS: PANTOPRAZOLE 40 MG/PACK PACK GT SCH (05:03)
[2016-07-04] MEDS: LEVOTHYROXINE SODIUM 25 MCG TABLET GT SCH (05:03)
[2016-07-04] MEDS: GLYTROL 1,000 ML BAG GT PRN (05:04)
[2016-07-04] MEDS: PROSTAT (PYXIS) 30 ML UDC GT SCH (09:00)
[2016-07-04] MEDS: LEVETIRACETAM SOL (5 ML) 100 MG/ML UDC GT SCH ×2 (09:12→21:14)
[2016-07-04] MEDS: LACTOBACILLUS RHAMNOSUS GG 1 EACH CAP.SPRINK GT SCH (09:12)
[2016-07-04] MEDS: OMEGA GT SCH ×3 (09:12→17:38)
[2016-07-04] MEDS: PROSOURCE / PROSTAT (PYXIS) 30 ML UDC GT SCH (09:12)
[2016-07-04] MEDS: CARBOXYMETHYLCELLULOSE SODIUM 0.4 ML DROPERETTE EACHEYE SCH (09:12)
[2016-07-04] MEDS: [UNRECOGNIZED DRUG - OTHER] GT SCH (09:12)
[2016-07-04] MEDS: BLOOD SUGAR DIAGNOSTIC 1 EACH STRIP IN SCH ×2 (09:13→21:15)
[2016-07-04] MEDS: ASCORBIC ACID 500 MG TABLET GT SCH (09:13)
[2016-07-04] MEDS: LABETALOL HCL (100MG) 100 MG TABLET GT SCH ×2 (09:13→21:15)
[2016-07-04] MEDS: INSULIN REGULAR, HUMAN 100 UNIT/ML 3 ML VIAL SQ PRN (09:13)
[2016-07-04] MEDS: COD LIVER OIL/ZINC OXIDE 120 GM TUBE TP SCH ×2 (09:15→21:16)
[2016-07-04] MEDS: HYDROGEN PEROXIDE 480 ML BOTTLE TP SCH ×2 (09:15→21:16)
[2016-07-04] MEDS: NYSTATIN TOP POWDER 15 GM BOTTLE TP SCH ×2 (09:15→21:16)
[2016-07-04] MEDS: CLOTRIMAZOLE 1% 15 GM TUBE TP SCH ×2 (09:15→21:16)
--- NOTE | 2016-07-04 12:02 | NUR ---
Seen by Dr. Ramirez today. Pt's family brought Medi Honey to apply to sacral wound and Dr. Ramirez said it is fine. Called pt's daughter Reyna to ask her how she wants to use the Medi Honey on the sacral wound since pt's sacral wound is being treated with Hydrogel and covered with Mepilex. Reyna said she had the Medi Honey with her and left it for the pt just for back up, but she still prefers for staff to use Hydrogel and Mepilex.
[2016-07-04] MEDS: CHOLESTYRAMINE/ASPARTAME 4 G/PKT PACKET GT SCH (12:27)
[2016-07-04] MEDS: HYDROGEL DRESSING 90 GM TUBE TP SCH (21:15)
[2016-07-04] MEDS: VALSARTAN 80 MG TABLET GT SCH (21:16)
[2016-07-05] VITALS (7 sets, daily range): BP systolic 112–130; BP diastolic 60–78
[2016-07-05] MEDS: ALBUTEROL FS 2.5 MG/3 ML VIAL.NEB NEB SCH ×4 (01:30→19:30)
[2016-07-05] MEDS: IPRATROPIUM NEB FS 0.5 MG/2.5 ML AMPUL.NEB IH SCH ×4 (01:30→19:30)
[2016-07-05] MEDS: PANTOPRAZOLE 40 MG/PACK PACK GT SCH (05:09)
[2016-07-05] MEDS: LEVOTHYROXINE SODIUM 25 MCG TABLET GT SCH (05:09)
[2016-07-05] MEDS: PROSTAT (PYXIS) 30 ML UDC GT SCH (09:00)
[2016-07-05] MEDS: LEVETIRACETAM SOL (5 ML) 100 MG/ML UDC GT SCH ×2 (09:23→21:00)
[2016-07-05] MEDS: OMEGA GT SCH ×3 (09:23→17:32)
[2016-07-05] MEDS: PROSOURCE / PROSTAT (PYXIS) 30 ML UDC GT SCH (09:23)
[2016-07-05] MEDS: CARBOXYMETHYLCELLULOSE SODIUM 0.4 ML DROPERETTE EACHEYE SCH (09:23)
[2016-07-05] MEDS: LACTOBACILLUS RHAMNOSUS GG 1 EACH CAP.SPRINK GT SCH (09:23)
[2016-07-05] MEDS: [UNRECOGNIZED DRUG - OTHER] GT SCH (09:23)
[2016-07-05] MEDS: LABETALOL HCL (100MG) 100 MG TABLET GT SCH ×2 (09:24→21:00)
[2016-07-05] MEDS: ASCORBIC ACID 500 MG TABLET GT SCH (09:24)
[2016-07-05] MEDS: HYDROGEL DRESSING 90 GM TUBE TP SCH ×2 (09:26→21:00)
[2016-07-05] MEDS: COD LIVER OIL/ZINC OXIDE 120 GM TUBE TP SCH ×2 (09:27→21:00)
[2016-07-05] MEDS: HYDROGEN PEROXIDE 480 ML BOTTLE TP SCH ×2 (09:27→21:00)
[2016-07-05] MEDS: NYSTATIN TOP POWDER 15 GM BOTTLE TP SCH ×2 (09:27→21:00)
[2016-07-05] MEDS: CLOTRIMAZOLE 1% 15 GM TUBE TP SCH ×2 (09:27→21:00)
[2016-07-05] MEDS: BLOOD SUGAR DIAGNOSTIC 1 EACH STRIP IN SCH ×2 (09:28→21:00)
[2016-07-05] MEDS: INSULIN REGULAR, HUMAN 100 UNIT/ML 3 ML VIAL SQ PRN (09:28)
[2016-07-05] MEDS: CHOLESTYRAMINE/ASPARTAME 4 G/PKT PACKET GT SCH (12:00)
[2016-07-05] MEDS: VALSARTAN 80 MG TABLET GT SCH (22:43)
[2016-07-06] VITALS (7 sets, daily range): BP systolic 94–129; BP diastolic 54–69
[2016-07-06] MEDS: ALBUTEROL FS 2.5 MG/3 ML VIAL.NEB NEB SCH ×4 (02:14→19:52)
[2016-07-06] MEDS: IPRATROPIUM NEB FS 0.5 MG/2.5 ML AMPUL.NEB IH SCH ×4 (02:14→19:52)
[2016-07-06] MEDS: PANTOPRAZOLE 40 MG/PACK PACK GT SCH (05:40)
[2016-07-06] MEDS: LEVOTHYROXINE SODIUM 25 MCG TABLET GT SCH (05:40)
[2016-07-06] MEDS: GLYTROL 1,000 ML BAG GT PRN ×2 (06:50→21:47)
[2016-07-06] MEDS: PROSTAT (PYXIS) 30 ML UDC GT SCH (09:00)
[2016-07-06] MEDS: LABETALOL HCL (100MG) 100 MG TABLET GT SCH ×2 (09:00→20:21)
[2016-07-06] MEDS: ASCORBIC ACID 500 MG TABLET GT SCH (09:17)
[2016-07-06] MEDS: CARBOXYMETHYLCELLULOSE SODIUM 0.4 ML DROPERETTE EACHEYE SCH (09:17)
[2016-07-06] MEDS: LEVETIRACETAM SOL (5 ML) 100 MG/ML UDC GT SCH ×2 (09:17→20:21)
[2016-07-06] MEDS: OMEGA GT SCH ×3 (09:17→17:10)
[2016-07-06] MEDS: [UNRECOGNIZED DRUG - OTHER] GT SCH (09:17)
[2016-07-06] MEDS: LACTOBACILLUS RHAMNOSUS GG 1 EACH CAP.SPRINK GT SCH (09:17)
[2016-07-06] MEDS: PROSOURCE / PROSTAT (PYXIS) 30 ML UDC GT SCH (09:17)
[2016-07-06] MEDS: BLOOD SUGAR DIAGNOSTIC 1 EACH STRIP IN SCH ×2 (09:25→17:18)
[2016-07-06] MEDS: HYDROGEL DRESSING 90 GM TUBE TP SCH ×2 (09:25→20:22)
[2016-07-06] MEDS: HYDROGEN PEROXIDE 480 ML BOTTLE TP SCH ×2 (09:26→20:22)
[2016-07-06] MEDS: CLOTRIMAZOLE 1% 15 GM TUBE TP SCH ×2 (09:26→20:22)
[2016-07-06] MEDS: COD LIVER OIL/ZINC OXIDE 120 GM TUBE TP SCH ×2 (09:26→20:22)
[2016-07-06] MEDS: NYSTATIN TOP POWDER 15 GM BOTTLE TP SCH ×2 (09:27→20:22)
[2016-07-06] MEDS: CHOLESTYRAMINE/ASPARTAME 4 G/PKT PACKET GT SCH (12:05)
[2016-07-06] MEDS: VALSARTAN 80 MG TABLET GT SCH (21:18)
[2016-07-07] VITALS (7 sets, daily range): BP systolic 110–128; BP diastolic 60–74
[2016-07-07] MEDS: ALBUTEROL FS 2.5 MG/3 ML VIAL.NEB NEB SCH ×4 (01:16→19:55)
[2016-07-07] MEDS: IPRATROPIUM NEB FS 0.5 MG/2.5 ML AMPUL.NEB IH SCH ×4 (01:16→19:55)
[2016-07-07] MEDS: LEVOTHYROXINE SODIUM 25 MCG TABLET GT SCH (05:13)
[2016-07-07] MEDS: PANTOPRAZOLE 40 MG/PACK PACK GT SCH (05:13)
[2016-07-07] MEDS: BLOOD SUGAR DIAGNOSTIC 1 EACH STRIP IN SCH ×2 (05:53→18:46)
--- NOTE | 2016-07-07 08:05 | NUR ---
Social Service Section of [facility] (1st quarter) completed. Resident is non-communicative. Her daughters are involved in her care and feels that she will be a snf resident of [facility]. Resident has a trach and g-tube. G-tube feeding: GLYTROL @ 80 ML/HR X 20 HRS. Resident receiving ROM exercises daily 5 days a week with skin checks every two hours to prevent redness or skin changes.
[2016-07-07] MEDS: CARBOXYMETHYLCELLULOSE SODIUM 0.4 ML DROPERETTE EACHEYE SCH (08:58)
[2016-07-07] MEDS: LACTOBACILLUS RHAMNOSUS GG 1 EACH CAP.SPRINK GT SCH (08:59)
[2016-07-07] MEDS: OMEGA GT SCH ×3 (08:59→16:01)
[2016-07-07] MEDS: [UNRECOGNIZED DRUG - OTHER] GT SCH (09:00)
[2016-07-07] MEDS: LEVETIRACETAM SOL (5 ML) 100 MG/ML UDC GT SCH ×2 (09:00→20:55)
[2016-07-07] MEDS: PROSOURCE / PROSTAT (PYXIS) 30 ML UDC GT SCH (09:01)
[2016-07-07] MEDS: LABETALOL HCL (100MG) 100 MG TABLET GT SCH ×2 (09:01→20:56)
[2016-07-07] MEDS: ASCORBIC ACID 500 MG TABLET GT SCH (09:01)
[2016-07-07] MEDS: HYDROGEN PEROXIDE 480 ML BOTTLE TP SCH ×2 (09:03→20:56)
[2016-07-07] MEDS: NYSTATIN TOP POWDER 15 GM BOTTLE TP SCH ×2 (09:03→20:57)
[2016-07-07] MEDS: HYDROGEL DRESSING 90 GM TUBE TP SCH ×2 (09:03→20:56)
[2016-07-07] MEDS: COD LIVER OIL/ZINC OXIDE 120 GM TUBE TP SCH ×2 (09:03→20:56)
[2016-07-07] MEDS: CHOLESTYRAMINE/ASPARTAME 4 G/PKT PACKET GT SCH (11:53)
[2016-07-07] MEDS: GLYTROL 1,000 ML BAG GT PRN (16:01)
[2016-07-07] MEDS: VALSARTAN 80 MG TABLET GT SCH (22:30)
[2016-07-08] VITALS (7 sets, daily range): BP systolic 97–130; BP diastolic 58–73
[2016-07-08] MEDS: ALBUTEROL FS 2.5 MG/3 ML VIAL.NEB NEB SCH ×4 (01:34→19:22)
[2016-07-08] MEDS: IPRATROPIUM NEB FS 0.5 MG/2.5 ML AMPUL.NEB IH SCH ×4 (01:34→19:22)
[2016-07-08] MEDS: PANTOPRAZOLE 40 MG/PACK PACK GT SCH (05:12)
[2016-07-08] MEDS: LEVOTHYROXINE SODIUM 25 MCG TABLET GT SCH (05:12)
[2016-07-08] MEDS: BLOOD SUGAR DIAGNOSTIC 1 EACH STRIP IN SCH ×2 (05:13→17:19)
[2016-07-08] MEDS: INSULIN REGULAR, HUMAN 100 UNIT/ML 3 ML VIAL SQ PRN (05:13)
[2016-07-08] MEDS: COD LIVER OIL/ZINC OXIDE 120 GM TUBE TP PRN (05:14)
[2016-07-08] MEDS: [UNRECOGNIZED DRUG - OTHER] GT SCH (09:12)
[2016-07-08] MEDS: PROSOURCE / PROSTAT (PYXIS) 30 ML UDC GT SCH (09:12)
[2016-07-08] MEDS: LEVETIRACETAM SOL (5 ML) 100 MG/ML UDC GT SCH ×2 (09:12→20:23)
[2016-07-08] MEDS: OMEGA GT SCH ×3 (09:12→16:17)
[2016-07-08] MEDS: LACTOBACILLUS RHAMNOSUS GG 1 EACH CAP.SPRINK GT SCH (09:12)
[2016-07-08] MEDS: CARBOXYMETHYLCELLULOSE SODIUM 0.4 ML DROPERETTE EACHEYE SCH (09:12)
[2016-07-08] MEDS: HYDROGEL DRESSING 90 GM TUBE TP SCH ×2 (09:14→20:24)
[2016-07-08] MEDS: HYDROGEN PEROXIDE 480 ML BOTTLE TP SCH ×2 (09:14→20:24)
[2016-07-08] MEDS: LABETALOL HCL (100MG) 100 MG TABLET GT SCH ×2 (09:14→20:23)
[2016-07-08] MEDS: COD LIVER OIL/ZINC OXIDE 120 GM TUBE TP SCH ×2 (09:14→20:24)
[2016-07-08] MEDS: ASCORBIC ACID 500 MG TABLET GT SCH (09:14)
[2016-07-08] MEDS: NYSTATIN TOP POWDER 15 GM BOTTLE TP SCH ×2 (09:14→20:24)
[2016-07-08] MEDS: CHOLESTYRAMINE/ASPARTAME 4 G/PKT PACKET GT SCH (12:00)
--- NOTE | 2016-07-08 14:30 | NUR ---
IDT meeting held, daughter Marielena Miller attended the meeting. Reviewed current orders, medications and treatment. Resident no episode of vomiting. Marielena Miller is very pleased with the care provided. Asked Dr. Monet if we can put patient up in a chair once a week. In the past he did not want her to be up in the chair because of episodes of vomiting and fluctuating B/P. Inform Marielena Miller that if they come in the morning to let us know so we can put the patient up the chair. Endorsed.
[2016-07-08] MEDS: GLYTROL 1,000 ML BAG GT PRN (17:20)
[2016-07-08] MEDS: VALSARTAN 80 MG TABLET GT SCH (21:39)
[2016-07-09] VITALS (8 sets, daily range): BP systolic 102–124; BP diastolic 59–71
[2016-07-09] MEDS: ALBUTEROL FS 2.5 MG/3 ML VIAL.NEB NEB SCH ×4 (01:27→19:47)
[2016-07-09] MEDS: IPRATROPIUM NEB FS 0.5 MG/2.5 ML AMPUL.NEB IH SCH ×4 (01:27→19:47)
[2016-07-09] MEDS: PANTOPRAZOLE 40 MG/PACK PACK GT SCH (05:01)
[2016-07-09] MEDS: GLYTROL 1,000 ML BAG GT PRN (05:01)
[2016-07-09] MEDS: LEVOTHYROXINE SODIUM 25 MCG TABLET GT SCH (05:01)
[2016-07-09] MEDS: BLOOD SUGAR DIAGNOSTIC 1 EACH STRIP IN SCH ×2 (05:17→17:30)
[2016-07-09] MEDS: INSULIN REGULAR, HUMAN 100 UNIT/ML 3 ML VIAL SQ PRN ×2 (05:18→17:35)
[2016-07-09] MEDS: CARBOXYMETHYLCELLULOSE SODIUM 0.4 ML DROPERETTE EACHEYE SCH (08:19)
[2016-07-09] MEDS: LACTOBACILLUS RHAMNOSUS GG 1 EACH CAP.SPRINK GT SCH (08:20)
[2016-07-09] MEDS: OMEGA GT SCH ×3 (08:22→17:30)
[2016-07-09] MEDS: [UNRECOGNIZED DRUG - OTHER] GT SCH (08:34)
[2016-07-09] MEDS: LEVETIRACETAM SOL (5 ML) 100 MG/ML UDC GT SCH ×2 (08:34→20:17)
[2016-07-09] MEDS: PROSOURCE / PROSTAT (PYXIS) 30 ML UDC GT SCH (08:34)
[2016-07-09] MEDS: ASCORBIC ACID 500 MG TABLET GT SCH (08:35)
[2016-07-09] MEDS: HYDROGEL DRESSING 90 GM TUBE TP SCH ×2 (08:35→20:17)
[2016-07-09] MEDS: LABETALOL HCL (100MG) 100 MG TABLET GT SCH ×2 (08:35→20:17)
[2016-07-09] MEDS: COD LIVER OIL/ZINC OXIDE 120 GM TUBE TP SCH ×2 (08:36→20:17)
[2016-07-09] MEDS: HYDROGEN PEROXIDE 480 ML BOTTLE TP SCH ×2 (08:36→20:17)
[2016-07-09] MEDS: NYSTATIN TOP POWDER 15 GM BOTTLE TP SCH ×2 (08:37→20:17)
[2016-07-09] MEDS: CHOLESTYRAMINE/ASPARTAME 4 G/PKT PACKET GT SCH (12:45)
--- NOTE | 2016-07-09 12:45 | NUR ---
RN NOTES: Noted by daughter Marielena Miller to bring in [place] medication supply by today.
[2016-07-09] MEDS: VALSARTAN 80 MG TABLET GT SCH (21:28)
[2016-07-10] VITALS (8 sets, daily range): BP systolic 101–125; BP diastolic 50–68
[2016-07-10] MEDS: IPRATROPIUM NEB FS 0.5 MG/2.5 ML AMPUL.NEB IH SCH ×4 (01:23→19:12)
[2016-07-10] MEDS: ALBUTEROL FS 2.5 MG/3 ML VIAL.NEB NEB SCH ×4 (01:23→19:12)
[2016-07-10] MEDS: GLYTROL 1,000 ML BAG GT PRN (02:03)
[2016-07-10] MEDS: LEVOTHYROXINE SODIUM 25 MCG TABLET GT SCH (05:21)
[2016-07-10] MEDS: PANTOPRAZOLE 40 MG/PACK PACK GT SCH (05:21)
[2016-07-10] MEDS: BLOOD SUGAR DIAGNOSTIC 1 EACH STRIP IN SCH ×2 (05:21→18:10)
[2016-07-10] MEDS: INSULIN REGULAR, HUMAN 100 UNIT/ML 3 ML VIAL SQ PRN ×2 (05:21→18:11)
[2016-07-10] MEDS: CARBOXYMETHYLCELLULOSE SODIUM 0.4 ML DROPERETTE EACHEYE SCH (08:34)
[2016-07-10] MEDS: PROSOURCE / PROSTAT (PYXIS) 30 ML UDC GT SCH (08:34)
[2016-07-10] MEDS: [UNRECOGNIZED DRUG - OTHER] GT SCH (08:34)
[2016-07-10] MEDS: LEVETIRACETAM SOL (5 ML) 100 MG/ML UDC GT SCH ×2 (08:34→21:05)
[2016-07-10] MEDS: LACTOBACILLUS RHAMNOSUS GG 1 EACH CAP.SPRINK GT SCH (08:34)
[2016-07-10] MEDS: OMEGA GT SCH ×3 (08:34→17:02)
[2016-07-10] MEDS: ASCORBIC ACID 500 MG TABLET GT SCH (08:35)
[2016-07-10] MEDS: LABETALOL HCL (100MG) 100 MG TABLET GT SCH ×2 (08:35→21:05)
[2016-07-10] MEDS: HYDROGEL DRESSING 90 GM TUBE TP SCH ×2 (08:35→21:05)
[2016-07-10] MEDS: COD LIVER OIL/ZINC OXIDE 120 GM TUBE TP SCH ×2 (08:35→21:05)
[2016-07-10] MEDS: HYDROGEN PEROXIDE 480 ML BOTTLE TP SCH ×2 (08:36→21:06)
[2016-07-10] MEDS: NYSTATIN TOP POWDER 15 GM BOTTLE TP SCH ×2 (08:36→21:06)
[2016-07-10] MEDS ORDERED: LOPERAMIDE HCL UDC(2 MG/10 ML) 2 MG/10 ML UDC GT PRN ×3 (10:58→11:00)
[2016-07-10] MEDS: CHOLESTYRAMINE/ASPARTAME 4 G/PKT PACKET GT SCH (12:41)
[2016-07-10] MEDS: VALSARTAN 80 MG TABLET GT SCH (22:00)
[2016-07-11] VITALS (7 sets, daily range): BP systolic 103–121; BP diastolic 53–71
[2016-07-11] MEDS: IPRATROPIUM NEB FS 0.5 MG/2.5 ML AMPUL.NEB IH SCH ×4 (00:50→19:30)
[2016-07-11] MEDS: ALBUTEROL FS 2.5 MG/3 ML VIAL.NEB NEB SCH ×4 (00:50→19:30)
[2016-07-11] MEDS: BLOOD SUGAR DIAGNOSTIC 1 EACH STRIP IN SCH ×2 (06:01→18:35)
[2016-07-11] MEDS: PANTOPRAZOLE 40 MG/PACK PACK GT SCH (06:01)
[2016-07-11] MEDS: INSULIN REGULAR, HUMAN 100 UNIT/ML 3 ML VIAL SQ PRN ×2 (06:01→18:36)
[2016-07-11] MEDS: LEVOTHYROXINE SODIUM 25 MCG TABLET GT SCH (06:01)
[2016-07-11] MEDS: OMEGA GT SCH ×3 (08:57→17:00)
[2016-07-11] MEDS: LACTOBACILLUS RHAMNOSUS GG 1 EACH CAP.SPRINK GT SCH (08:57)
[2016-07-11] MEDS: CARBOXYMETHYLCELLULOSE SODIUM 0.4 ML DROPERETTE EACHEYE SCH (08:57)
[2016-07-11] MEDS: LEVETIRACETAM SOL (5 ML) 100 MG/ML UDC GT SCH ×2 (08:58→20:45)
[2016-07-11] MEDS: LABETALOL HCL (100MG) 100 MG TABLET GT SCH ×2 (08:58→20:46)
[2016-07-11] MEDS: PROSOURCE / PROSTAT (PYXIS) 30 ML UDC GT SCH (08:58)
[2016-07-11] MEDS: [UNRECOGNIZED DRUG - OTHER] GT SCH (08:58)
[2016-07-11] MEDS: ASCORBIC ACID 500 MG TABLET GT SCH (08:58)
[2016-07-11] MEDS: HYDROGEN PEROXIDE 480 ML BOTTLE TP SCH ×2 (09:00→20:46)
[2016-07-11] MEDS: NYSTATIN TOP POWDER 15 GM BOTTLE TP SCH ×2 (09:00→20:46)
[2016-07-11] MEDS: COD LIVER OIL/ZINC OXIDE 120 GM TUBE TP SCH ×2 (09:00→20:46)
[2016-07-11] MEDS: HYDROGEL DRESSING 90 GM TUBE TP SCH ×2 (09:00→20:46)
[2016-07-11] MEDS: CHOLESTYRAMINE/ASPARTAME 4 G/PKT PACKET GT SCH (12:00)
[2016-07-11] MEDS: VALSARTAN 80 MG TABLET GT SCH (21:10)
[2016-07-12 01:11] VITALS: BP 116/58
[2016-07-12] MEDS: ALBUTEROL FS 2.5 MG/3 ML VIAL.NEB NEB SCH ×4 (02:12→20:29)
[2016-07-12] MEDS: IPRATROPIUM NEB FS 0.5 MG/2.5 ML AMPUL.NEB IH SCH ×4 (02:12→20:29)
[2016-07-12 05:29] VITALS: BP 111/60
[2016-07-12] MEDS: LEVOTHYROXINE SODIUM 25 MCG TABLET GT SCH (05:30)
[2016-07-12] MEDS: PANTOPRAZOLE 40 MG/PACK PACK GT SCH (05:30)
[2016-07-12] MEDS: BLOOD SUGAR DIAGNOSTIC 1 EACH STRIP IN SCH ×2 (06:07→18:32)
[2016-07-12 08:05] VITALS: BP 117/58
[2016-07-12] MEDS: ASCORBIC ACID 500 MG TABLET GT SCH (08:56)
[2016-07-12] MEDS: LEVETIRACETAM SOL (5 ML) 100 MG/ML UDC GT SCH ×2 (08:57→20:41)
[2016-07-12] MEDS: OMEGA GT SCH ×3 (08:57→17:00)
[2016-07-12] MEDS: [UNRECOGNIZED DRUG - OTHER] GT SCH (08:57)
[2016-07-12] MEDS: LABETALOL HCL (100MG) 100 MG TABLET GT SCH ×2 (08:57→20:41)
[2016-07-12] MEDS: PROSOURCE / PROSTAT (PYXIS) 30 ML UDC GT SCH (08:57)
[2016-07-12] MEDS: CARBOXYMETHYLCELLULOSE SODIUM 0.4 ML DROPERETTE EACHEYE SCH (08:58)
[2016-07-12] MEDS: LACTOBACILLUS RHAMNOSUS GG 1 EACH CAP.SPRINK GT SCH (08:58)
--- NOTE | 2016-07-12 09:00 | NUR ---
Seen and examined by Dr Monet with no new order
[2016-07-12] MEDS: HYDROGEL DRESSING 90 GM TUBE TP SCH ×2 (09:01→20:42)
[2016-07-12] MEDS: COD LIVER OIL/ZINC OXIDE 120 GM TUBE TP SCH ×2 (09:01→20:42)
[2016-07-12] MEDS: NYSTATIN TOP POWDER 15 GM BOTTLE TP SCH ×2 (09:02→20:42)
[2016-07-12] MEDS: HYDROGEN PEROXIDE 480 ML BOTTLE TP SCH ×2 (09:02→20:42)
[2016-07-12] MEDS: CHOLESTYRAMINE/ASPARTAME 4 G/PKT PACKET GT SCH (12:00)
--- NOTE | 2016-07-12 14:47 | NUR ---
Seen by Ward Nurse Dr. Gallegos and no new order was given.
[2016-07-12 17:00] VITALS: BP 117/58
[2016-07-12] MEDS: INSULIN REGULAR, HUMAN 100 UNIT/ML 3 ML VIAL SQ PRN (18:32)
[2016-07-12 20:14] VITALS: BP 107/59
[2016-07-12 21:12] VITALS: BP 107/59
[2016-07-12] MEDS: VALSARTAN 80 MG TABLET GT SCH (21:16)
[2016-07-13] VITALS (7 sets, daily range): BP systolic 102–114; BP diastolic 57–62
[2016-07-13] MEDS: ALBUTEROL FS 2.5 MG/3 ML VIAL.NEB NEB SCH ×4 (02:09→20:15)
[2016-07-13] MEDS: IPRATROPIUM NEB FS 0.5 MG/2.5 ML AMPUL.NEB IH SCH ×4 (02:09→20:15)
[2016-07-13] MEDS: LEVOTHYROXINE SODIUM 25 MCG TABLET GT SCH (05:17)
[2016-07-13] MEDS: PANTOPRAZOLE 40 MG/PACK PACK GT SCH (05:17)
[2016-07-13] MEDS: BLOOD SUGAR DIAGNOSTIC 1 EACH STRIP IN SCH ×2 (06:02→17:35)
[2016-07-13] MEDS: GLYTROL 1,000 ML BAG GT PRN ×2 (06:14→22:16)
--- NOTE | 2016-07-13 08:08 | NUR ---
Received a phone call from daughter of resident (Reyna Meehan/CINDY) stating that she wanted to speak to medical transcriber about putting resident into hospice care. 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 She wants to know what her options are at this point. SW informed Dr. Monet that daughter wants to meet with him and will set up a meeting between daughter and physician. Charge nurse informed. Addendum: 07/13/16 at 1433 by LUIS LOAIZA Meeting arranged between Dr. Monet and Reyna Meehan (resident's daughter) for July 26, 2016 at 5pm in the subacute unit.
[2016-07-13] MEDS: NYSTATIN TOP POWDER 15 GM BOTTLE TP SCH ×2 (09:00→21:03)
[2016-07-13] MEDS: [UNRECOGNIZED DRUG - OTHER] GT SCH (09:02)
[2016-07-13] MEDS: OMEGA GT SCH ×3 (09:02→16:34)
[2016-07-13] MEDS: LEVETIRACETAM SOL (5 ML) 100 MG/ML UDC GT SCH ×2 (09:02→21:02)
[2016-07-13] MEDS: PROSOURCE / PROSTAT (PYXIS) 30 ML UDC GT SCH (09:02)
[2016-07-13] MEDS: LACTOBACILLUS RHAMNOSUS GG 1 EACH CAP.SPRINK GT SCH (09:02)
[2016-07-13] MEDS: CARBOXYMETHYLCELLULOSE SODIUM 0.4 ML DROPERETTE EACHEYE SCH (09:02)
[2016-07-13] MEDS: LABETALOL HCL (100MG) 100 MG TABLET GT SCH ×2 (09:03→21:00)
[2016-07-13] MEDS: ASCORBIC ACID 500 MG TABLET GT SCH (09:03)
[2016-07-13] MEDS: HYDROGEL DRESSING 90 GM TUBE TP SCH ×2 (09:04→21:03)
[2016-07-13] MEDS: COD LIVER OIL/ZINC OXIDE 120 GM TUBE TP SCH ×2 (09:04→21:03)
[2016-07-13] MEDS: HYDROGEN PEROXIDE 480 ML BOTTLE TP SCH ×2 (09:05→21:03)
[2016-07-13] MEDS: CHOLESTYRAMINE/ASPARTAME 4 G/PKT PACKET GT SCH (12:00)
[2016-07-13] MEDS: VALSARTAN 80 MG TABLET GT SCH (21:03)
[2016-07-14] VITALS (7 sets, daily range): BP systolic 98–129; BP diastolic 45–67
[2016-07-14] MEDS: ALBUTEROL FS 2.5 MG/3 ML VIAL.NEB NEB SCH ×4 (01:58→19:47)
[2016-07-14] MEDS: IPRATROPIUM NEB FS 0.5 MG/2.5 ML AMPUL.NEB IH SCH ×4 (01:58→19:47)
[2016-07-14] MEDS: PANTOPRAZOLE 40 MG/PACK PACK GT SCH (05:10)
[2016-07-14] MEDS: LEVOTHYROXINE SODIUM 25 MCG TABLET GT SCH (05:10)
[2016-07-14] MEDS: BLOOD SUGAR DIAGNOSTIC 1 EACH STRIP IN SCH ×2 (05:59→17:49)
[2016-07-14] MEDS: LACTOBACILLUS RHAMNOSUS GG 1 EACH CAP.SPRINK GT SCH (09:33)
[2016-07-14] MEDS: LEVETIRACETAM SOL (5 ML) 100 MG/ML UDC GT SCH ×2 (09:33→21:05)
[2016-07-14] MEDS: OMEGA GT SCH ×3 (09:33→17:49)
[2016-07-14] MEDS: CARBOXYMETHYLCELLULOSE SODIUM 0.4 ML DROPERETTE EACHEYE SCH (09:33)
[2016-07-14] MEDS: PROSOURCE / PROSTAT (PYXIS) 30 ML UDC GT SCH (09:33)
[2016-07-14] MEDS: LABETALOL HCL (100MG) 100 MG TABLET GT SCH ×2 (09:33→21:05)
[2016-07-14] MEDS: [UNRECOGNIZED DRUG - OTHER] GT SCH (09:33)
[2016-07-14] MEDS: NYSTATIN TOP POWDER 15 GM BOTTLE TP SCH ×2 (09:35→21:06)
[2016-07-14] MEDS: HYDROGEL DRESSING 90 GM TUBE TP SCH ×2 (09:35→21:06)
[2016-07-14] MEDS: COD LIVER OIL/ZINC OXIDE 120 GM TUBE TP SCH ×2 (09:35→21:06)
[2016-07-14] MEDS: ASCORBIC ACID 500 MG TABLET GT SCH (09:35)
[2016-07-14] MEDS: HYDROGEN PEROXIDE 480 ML BOTTLE TP SCH ×2 (09:35→21:06)
[2016-07-14] MEDS: CHOLESTYRAMINE/ASPARTAME 4 G/PKT PACKET GT SCH (12:24)
[2016-07-14] MEDS: GLYTROL 1,000 ML BAG GT PRN (17:49)
[2016-07-14] MEDS: VALSARTAN 80 MG TABLET GT SCH (22:15)
[2016-07-15 01:00] VITALS: BP 117/51
[2016-07-15] MEDS: IPRATROPIUM NEB FS 0.5 MG/2.5 ML AMPUL.NEB IH SCH ×4 (02:16→20:20)
[2016-07-15] MEDS: ALBUTEROL FS 2.5 MG/3 ML VIAL.NEB NEB SCH ×4 (02:16→20:20)
[2016-07-15 05:00] VITALS: BP 110/69
[2016-07-15] MEDS: LEVOTHYROXINE SODIUM 25 MCG TABLET GT SCH (05:47)
[2016-07-15] MEDS: PANTOPRAZOLE 40 MG/PACK PACK GT SCH (05:47)
[2016-07-15] MEDS: BLOOD SUGAR DIAGNOSTIC 1 EACH STRIP IN SCH ×2 (06:17→17:32)
[2016-07-15] MEDS: INSULIN REGULAR, HUMAN 100 UNIT/ML 3 ML VIAL SQ PRN (06:18)
[2016-07-15 07:40] VITALS: BP 144/67
[2016-07-15] MEDS: LEVETIRACETAM SOL (5 ML) 100 MG/ML UDC GT SCH ×2 (08:57→20:49)
[2016-07-15] MEDS: CARBOXYMETHYLCELLULOSE SODIUM 0.4 ML DROPERETTE EACHEYE SCH (08:57)
[2016-07-15] MEDS: LACTOBACILLUS RHAMNOSUS GG 1 EACH CAP.SPRINK GT SCH (08:57)
[2016-07-15] MEDS: OMEGA GT SCH ×3 (08:57→17:32)
[2016-07-15] MEDS: [UNRECOGNIZED DRUG - OTHER] GT SCH (08:58)
[2016-07-15] MEDS: PROSOURCE / PROSTAT (PYXIS) 30 ML UDC GT SCH (08:58)
[2016-07-15] MEDS: LABETALOL HCL (100MG) 100 MG TABLET GT SCH ×2 (08:59→20:49)
[2016-07-15] MEDS: ASCORBIC ACID 500 MG TABLET GT SCH (08:59)
[2016-07-15] MEDS: HYDROGEN PEROXIDE 480 ML BOTTLE TP SCH ×2 (09:00→20:51)
[2016-07-15] MEDS: NYSTATIN TOP POWDER 15 GM BOTTLE TP SCH ×2 (09:00→20:51)
[2016-07-15] MEDS: HYDROGEL DRESSING 90 GM TUBE TP SCH ×2 (09:00→20:51)
[2016-07-15] MEDS: COD LIVER OIL/ZINC OXIDE 120 GM TUBE TP SCH ×2 (09:00→20:51)
[2016-07-15] MEDS: CHOLESTYRAMINE/ASPARTAME 4 G/PKT PACKET GT SCH (12:28)
[2016-07-15 17:33] VITALS: BP 144/67
[2016-07-15 19:58] VITALS: BP 103/60
[2016-07-15 21:00] VITALS: BP 103/60
[2016-07-15] MEDS: VALSARTAN 80 MG TABLET GT SCH (22:28)
[2016-07-16] VITALS (8 sets, daily range): BP systolic 100–121; BP diastolic 54–69
[2016-07-16] MEDS: ALBUTEROL FS 2.5 MG/3 ML VIAL.NEB NEB SCH ×4 (01:15→19:24)
[2016-07-16] MEDS: IPRATROPIUM NEB FS 0.5 MG/2.5 ML AMPUL.NEB IH SCH ×4 (01:15→19:24)
[2016-07-16] MEDS: BLOOD SUGAR DIAGNOSTIC 1 EACH STRIP IN SCH ×2 (05:59→17:00)
[2016-07-16] MEDS: PANTOPRAZOLE 40 MG/PACK PACK GT SCH (05:59)
[2016-07-16] MEDS: GLYTROL 1,000 ML BAG GT PRN ×3 (05:59→10:44)
[2016-07-16] MEDS: LEVOTHYROXINE SODIUM 25 MCG TABLET GT SCH (05:59)
[2016-07-16] MEDS: INSULIN REGULAR, HUMAN 100 UNIT/ML 3 ML VIAL SQ PRN (06:00)
[2016-07-16] MEDS: LABETALOL HCL (100MG) 100 MG TABLET GT SCH ×2 (09:00→21:26)
[2016-07-16] MEDS: CARBOXYMETHYLCELLULOSE SODIUM 0.4 ML DROPERETTE EACHEYE SCH (09:06)
[2016-07-16] MEDS: LEVETIRACETAM SOL (5 ML) 100 MG/ML UDC GT SCH ×2 (09:07→21:25)
[2016-07-16] MEDS: OMEGA GT SCH ×3 (09:07→17:00)
[2016-07-16] MEDS: [UNRECOGNIZED DRUG - OTHER] GT SCH (09:07)
[2016-07-16] MEDS: PROSOURCE / PROSTAT (PYXIS) 30 ML UDC GT SCH (09:07)
[2016-07-16] MEDS: LACTOBACILLUS RHAMNOSUS GG 1 EACH CAP.SPRINK GT SCH (09:07)
[2016-07-16] MEDS: ASCORBIC ACID 500 MG TABLET GT SCH (09:09)
[2016-07-16] MEDS: HYDROGEN PEROXIDE 480 ML BOTTLE TP SCH ×2 (10:15→21:26)
[2016-07-16] MEDS: COD LIVER OIL/ZINC OXIDE 120 GM TUBE TP SCH ×2 (10:15→21:26)
[2016-07-16] MEDS: HYDROGEL DRESSING 90 GM TUBE TP SCH ×2 (10:15→21:26)
[2016-07-16] MEDS: NYSTATIN TOP POWDER 15 GM BOTTLE TP SCH ×2 (10:15→21:26)
[2016-07-16] MEDS: CHOLESTYRAMINE/ASPARTAME 4 G/PKT PACKET GT SCH (12:52)
[2016-07-16] MEDS: VALSARTAN 80 MG TABLET GT SCH (22:01)
[2016-07-17] VITALS (7 sets, daily range): BP systolic 104–130; BP diastolic 55–69
[2016-07-17] MEDS: ALBUTEROL FS 2.5 MG/3 ML VIAL.NEB NEB SCH ×4 (02:15→21:15)
[2016-07-17] MEDS: IPRATROPIUM NEB FS 0.5 MG/2.5 ML AMPUL.NEB IH SCH ×4 (02:15→21:15)
[2016-07-17] MEDS: GLYTROL 1,000 ML BAG GT PRN (04:17)
[2016-07-17] MEDS: PANTOPRAZOLE 40 MG/PACK PACK GT SCH (05:48)
[2016-07-17] MEDS: LEVOTHYROXINE SODIUM 25 MCG TABLET GT SCH (05:48)
[2016-07-17] MEDS: BLOOD SUGAR DIAGNOSTIC 1 EACH STRIP IN SCH ×2 (05:48→17:17)
[2016-07-17] MEDS: INSULIN REGULAR, HUMAN 100 UNIT/ML 3 ML VIAL SQ PRN (05:49)
[2016-07-17] MEDS: ASCORBIC ACID 500 MG TABLET GT SCH (08:45)
[2016-07-17] MEDS: OMEGA GT SCH ×3 (08:45→16:56)
[2016-07-17] MEDS: LEVETIRACETAM SOL (5 ML) 100 MG/ML UDC GT SCH ×2 (08:45→21:03)
[2016-07-17] MEDS: COD LIVER OIL/ZINC OXIDE 120 GM TUBE TP SCH ×2 (08:45→21:05)
[2016-07-17] MEDS: NYSTATIN TOP POWDER 15 GM BOTTLE TP SCH ×2 (08:45→21:05)
[2016-07-17] MEDS: LACTOBACILLUS RHAMNOSUS GG 1 EACH CAP.SPRINK GT SCH (08:45)
[2016-07-17] MEDS: PROSOURCE / PROSTAT (PYXIS) 30 ML UDC GT SCH (08:45)
[2016-07-17] MEDS: HYDROGEN PEROXIDE 480 ML BOTTLE TP SCH ×2 (08:45→21:05)
[2016-07-17] MEDS: CARBOXYMETHYLCELLULOSE SODIUM 0.4 ML DROPERETTE EACHEYE SCH (08:45)
[2016-07-17] MEDS: [UNRECOGNIZED DRUG - OTHER] GT SCH (08:45)
[2016-07-17] MEDS: HYDROGEL DRESSING 90 GM TUBE TP SCH ×2 (08:45→21:05)
[2016-07-17] MEDS: LABETALOL HCL (100MG) 100 MG TABLET GT SCH ×2 (08:51→21:00)
[2016-07-17] MEDS: CHOLESTYRAMINE/ASPARTAME 4 G/PKT PACKET GT SCH (11:57)
[2016-07-17] MEDS: VALSARTAN 80 MG TABLET GT SCH (21:05)
[2016-07-18] VITALS (7 sets, daily range): BP systolic 97–133; BP diastolic 54–65
[2016-07-18] MEDS: ALBUTEROL FS 2.5 MG/3 ML VIAL.NEB NEB SCH ×4 (02:29→20:12)
[2016-07-18] MEDS: IPRATROPIUM NEB FS 0.5 MG/2.5 ML AMPUL.NEB IH SCH ×4 (02:29→20:12)
[2016-07-18] MEDS: BLOOD SUGAR DIAGNOSTIC 1 EACH STRIP IN SCH ×2 (05:45→17:52)
[2016-07-18] MEDS: LEVOTHYROXINE SODIUM 25 MCG TABLET GT SCH (05:45)
[2016-07-18] MEDS: PANTOPRAZOLE 40 MG/PACK PACK GT SCH (05:45)
[2016-07-18] MEDS: OMEGA GT SCH ×3 (09:00→17:52)
[2016-07-18] MEDS: CARBOXYMETHYLCELLULOSE SODIUM 0.4 ML DROPERETTE EACHEYE SCH (09:00)
[2016-07-18] MEDS: PROSOURCE / PROSTAT (PYXIS) 30 ML UDC GT SCH (09:00)
[2016-07-18] MEDS: [UNRECOGNIZED DRUG - OTHER] GT SCH (09:00)
[2016-07-18] MEDS: LACTOBACILLUS RHAMNOSUS GG 1 EACH CAP.SPRINK GT SCH (09:00)
[2016-07-18] MEDS: COD LIVER OIL/ZINC OXIDE 120 GM TUBE TP SCH ×2 (09:00→21:10)
[2016-07-18] MEDS: ASCORBIC ACID 500 MG TABLET GT SCH (09:00)
[2016-07-18] MEDS: LABETALOL HCL (100MG) 100 MG TABLET GT SCH ×2 (09:00→21:00)
[2016-07-18] MEDS: LEVETIRACETAM SOL (5 ML) 100 MG/ML UDC GT SCH ×2 (09:00→21:09)
[2016-07-18] MEDS: NYSTATIN TOP POWDER 15 GM BOTTLE TP SCH ×2 (09:00→21:10)
[2016-07-18] MEDS: HYDROGEN PEROXIDE 480 ML BOTTLE TP SCH ×2 (09:00→21:10)
[2016-07-18] MEDS: HYDROGEL DRESSING 90 GM TUBE TP SCH ×2 (09:00→21:10)
[2016-07-18] MEDS: CHOLESTYRAMINE/ASPARTAME 4 G/PKT PACKET GT SCH (12:00)
[2016-07-18] MEDS: VALSARTAN 80 MG TABLET GT SCH (21:10)
[2016-07-19] VITALS (7 sets, daily range): BP systolic 102–116; BP diastolic 53–71
[2016-07-19] MEDS: ALBUTEROL FS 2.5 MG/3 ML VIAL.NEB NEB SCH ×4 (01:24→19:33)
[2016-07-19] MEDS: IPRATROPIUM NEB FS 0.5 MG/2.5 ML AMPUL.NEB IH SCH ×4 (01:24→19:33)
[2016-07-19] MEDS: LEVOTHYROXINE SODIUM 25 MCG TABLET GT SCH (05:41)
[2016-07-19] MEDS: PANTOPRAZOLE 40 MG/PACK PACK GT SCH (05:41)
[2016-07-19] MEDS: GLYTROL 1,000 ML BAG GT PRN (05:42)
[2016-07-19] MEDS: BLOOD SUGAR DIAGNOSTIC 1 EACH STRIP IN SCH ×2 (05:47→17:22)
[2016-07-19] MEDS: PROSOURCE / PROSTAT (PYXIS) 30 ML UDC GT SCH (09:15)
[2016-07-19] MEDS: ASCORBIC ACID 500 MG TABLET GT SCH (09:15)
[2016-07-19] MEDS: LEVETIRACETAM SOL (5 ML) 100 MG/ML UDC GT SCH ×2 (09:15→21:00)
[2016-07-19] MEDS: OMEGA GT SCH ×3 (09:15→16:58)
[2016-07-19] MEDS: CARBOXYMETHYLCELLULOSE SODIUM 0.4 ML DROPERETTE EACHEYE SCH (09:15)
[2016-07-19] MEDS: LACTOBACILLUS RHAMNOSUS GG 1 EACH CAP.SPRINK GT SCH (09:15)
[2016-07-19] MEDS: [UNRECOGNIZED DRUG - OTHER] GT SCH (09:15)
[2016-07-19] MEDS: LABETALOL HCL (100MG) 100 MG TABLET GT SCH ×2 (09:17→21:00)
[2016-07-19] MEDS: HYDROGEN PEROXIDE 480 ML BOTTLE TP SCH ×2 (10:00→21:00)
[2016-07-19] MEDS: NYSTATIN TOP POWDER 15 GM BOTTLE TP SCH ×2 (10:00→21:00)
[2016-07-19] MEDS: HYDROGEL DRESSING 90 GM TUBE TP SCH ×2 (10:00→21:00)
[2016-07-19] MEDS: COD LIVER OIL/ZINC OXIDE 120 GM TUBE TP SCH ×2 (10:00→21:00)
--- NOTE | 2016-07-19 10:05 | NUR ---
Seen and examined by Dr Monet with no new order
[2016-07-19] MEDS: CHOLESTYRAMINE/ASPARTAME 4 G/PKT PACKET GT SCH (12:36)
[2016-07-19] MEDS: HYDROCORTISONE 1% CREAM 30 GM TUBE TP SCH (21:00)
[2016-07-19] MEDS: VALSARTAN 80 MG TABLET GT SCH (22:50)
[2016-07-20] VITALS (8 sets, daily range): BP systolic 102–134; BP diastolic 52–64
[2016-07-20] MEDS: ALBUTEROL FS 2.5 MG/3 ML VIAL.NEB NEB SCH ×4 (01:51→19:36)
[2016-07-20] MEDS: IPRATROPIUM NEB FS 0.5 MG/2.5 ML AMPUL.NEB IH SCH ×4 (01:51→19:36)
[2016-07-20] MEDS: LEVOTHYROXINE SODIUM 25 MCG TABLET GT SCH (05:54)
[2016-07-20] MEDS: PANTOPRAZOLE 40 MG/PACK PACK GT SCH (05:54)
[2016-07-20] MEDS: BLOOD SUGAR DIAGNOSTIC 1 EACH STRIP IN SCH ×2 (05:55→17:21)
[2016-07-20] MEDS: PROSOURCE / PROSTAT (PYXIS) 30 ML UDC GT SCH (08:23)
[2016-07-20] MEDS: LEVETIRACETAM SOL (5 ML) 100 MG/ML UDC GT SCH ×2 (08:23→21:11)
[2016-07-20] MEDS: [UNRECOGNIZED DRUG - OTHER] GT SCH (08:23)
[2016-07-20] MEDS: LACTOBACILLUS RHAMNOSUS GG 1 EACH CAP.SPRINK GT SCH (08:23)
[2016-07-20] MEDS: CARBOXYMETHYLCELLULOSE SODIUM 0.4 ML DROPERETTE EACHEYE SCH (08:23)
[2016-07-20] MEDS: OMEGA GT SCH ×3 (08:23→17:21)
[2016-07-20] MEDS: ASCORBIC ACID 500 MG TABLET GT SCH (08:24)
[2016-07-20] MEDS: HYDROGEL DRESSING 90 GM TUBE TP SCH ×2 (08:24→21:12)
[2016-07-20] MEDS: NYSTATIN TOP POWDER 15 GM BOTTLE TP SCH ×2 (08:24→21:12)
[2016-07-20] MEDS: HYDROGEN PEROXIDE 480 ML BOTTLE TP SCH ×2 (08:24→21:12)
[2016-07-20] MEDS: HYDROCORTISONE 1% CREAM 30 GM TUBE TP SCH ×2 (08:24→21:12)
[2016-07-20] MEDS: LABETALOL HCL (100MG) 100 MG TABLET GT SCH ×2 (08:24→21:00)
[2016-07-20] MEDS: hydrALAZINE HCL 10 MG TABLET GT PRN ×3 (08:31→17:21)
[2016-07-20] MEDS: CHOLESTYRAMINE/ASPARTAME 4 G/PKT PACKET GT SCH (12:43)
[2016-07-20] MEDS: GLYTROL 1,000 ML BAG GT PRN (13:01)
--- NOTE | 2016-07-20 17:00 | NUR ---
Noted with slight redness on right side of abdomen. Abdomen is soft non distended. Bowel sounds present. Gt. in place patent no residual. No signs and symptoms of pain or discomfort noted. Kept clean and dry. RN crop supervisor notified. Daughter Yudelka at bedside notified.
[2016-07-20] MEDS: INSULIN REGULAR, HUMAN 100 UNIT/ML 3 ML VIAL SQ PRN (17:23)
[2016-07-20] MEDS: VALSARTAN 80 MG TABLET GT SCH (21:12)
[2016-07-21] VITALS (8 sets, daily range): BP systolic 103–122; BP diastolic 49–64
[2016-07-21] MEDS: IPRATROPIUM NEB FS 0.5 MG/2.5 ML AMPUL.NEB IH SCH ×4 (02:02→20:08)
[2016-07-21] MEDS: ALBUTEROL FS 2.5 MG/3 ML VIAL.NEB NEB SCH ×4 (02:02→20:08)
[2016-07-21] MEDS: PANTOPRAZOLE 40 MG/PACK PACK GT SCH (05:13)
[2016-07-21] MEDS: LEVOTHYROXINE SODIUM 25 MCG TABLET GT SCH (05:13)
[2016-07-21] MEDS: INSULIN REGULAR, HUMAN 100 UNIT/ML 3 ML VIAL SQ PRN (05:50)
[2016-07-21] MEDS: BLOOD SUGAR DIAGNOSTIC 1 EACH STRIP IN SCH ×2 (05:50→17:49)
[2016-07-21] MEDS: CARBOXYMETHYLCELLULOSE SODIUM 0.4 ML DROPERETTE EACHEYE SCH (09:00)
[2016-07-21] MEDS: [UNRECOGNIZED DRUG - OTHER] GT SCH (09:00)
[2016-07-21] MEDS: HYDROGEL DRESSING 90 GM TUBE TP SCH ×2 (09:00→20:55)
[2016-07-21] MEDS: LABETALOL HCL (100MG) 100 MG TABLET GT SCH ×2 (09:00→20:55)
[2016-07-21] MEDS: ASCORBIC ACID 500 MG TABLET GT SCH (09:00)
[2016-07-21] MEDS: LACTOBACILLUS RHAMNOSUS GG 1 EACH CAP.SPRINK GT SCH (09:00)
[2016-07-21] MEDS: HYDROCORTISONE 1% CREAM 30 GM TUBE TP SCH ×2 (09:00→20:55)
[2016-07-21] MEDS: OMEGA GT SCH ×3 (09:00→17:49)
[2016-07-21] MEDS: LEVETIRACETAM SOL (5 ML) 100 MG/ML UDC GT SCH ×2 (09:00→20:55)
[2016-07-21] MEDS: NYSTATIN TOP POWDER 15 GM BOTTLE TP SCH ×2 (09:00→20:55)
[2016-07-21] MEDS: HYDROGEN PEROXIDE 480 ML BOTTLE TP SCH ×2 (09:00→20:55)
[2016-07-21] MEDS: PROSOURCE / PROSTAT (PYXIS) 30 ML UDC GT SCH (09:00)
[2016-07-21] MEDS: CHOLESTYRAMINE/ASPARTAME 4 G/PKT PACKET GT SCH (12:07)
[2016-07-21] MEDS: VITAMINS A AND D 56.7 GM TUBE TP SCH (20:55)
[2016-07-21] MEDS: VALSARTAN 80 MG TABLET GT SCH (22:25)
[2016-07-22] VITALS (7 sets, daily range): BP systolic 105–126; BP diastolic 50–63
[2016-07-22] MEDS: ALBUTEROL FS 2.5 MG/3 ML VIAL.NEB NEB SCH ×4 (01:16→19:23)
[2016-07-22] MEDS: IPRATROPIUM NEB FS 0.5 MG/2.5 ML AMPUL.NEB IH SCH ×4 (01:16→19:23)
[2016-07-22] MEDS: LEVOTHYROXINE SODIUM 25 MCG TABLET GT SCH (05:49)
[2016-07-22] MEDS: GLYTROL 1,000 ML BAG GT PRN (05:49)
[2016-07-22] MEDS: PANTOPRAZOLE 40 MG/PACK PACK GT SCH (05:49)
[2016-07-22] MEDS: BLOOD SUGAR DIAGNOSTIC 1 EACH STRIP IN SCH ×2 (05:49→17:38)
[2016-07-22] MEDS: INSULIN REGULAR, HUMAN 100 UNIT/ML 3 ML VIAL SQ PRN ×2 (05:50→17:39)
[2016-07-22] MEDS: OMEGA GT SCH ×3 (09:26→17:38)
[2016-07-22] MEDS: LACTOBACILLUS RHAMNOSUS GG 1 EACH CAP.SPRINK GT SCH (09:26)
[2016-07-22] MEDS: CARBOXYMETHYLCELLULOSE SODIUM 0.4 ML DROPERETTE EACHEYE SCH (09:26)
[2016-07-22] MEDS: PROSOURCE / PROSTAT (PYXIS) 30 ML UDC GT SCH (09:26)
[2016-07-22] MEDS: [UNRECOGNIZED DRUG - OTHER] GT SCH (09:26)
[2016-07-22] MEDS: NYSTATIN TOP POWDER 15 GM BOTTLE TP SCH ×2 (09:27→21:12)
[2016-07-22] MEDS: ASCORBIC ACID 500 MG TABLET GT SCH (09:27)
[2016-07-22] MEDS: VITAMINS A AND D 56.7 GM TUBE TP SCH ×2 (09:27→21:12)
[2016-07-22] MEDS: HYDROGEN PEROXIDE 480 ML BOTTLE TP SCH ×2 (09:27→21:12)
[2016-07-22] MEDS: HYDROGEL DRESSING 90 GM TUBE TP SCH ×2 (09:27→21:12)
[2016-07-22] MEDS: LABETALOL HCL (100MG) 100 MG TABLET GT SCH ×2 (09:27→21:00)
[2016-07-22] MEDS: HYDROCORTISONE 1% CREAM 30 GM TUBE TP SCH ×2 (09:27→21:12)
[2016-07-22] MEDS: hydrALAZINE HCL 10 MG TABLET GT PRN ×2 (09:28→17:38)
[2016-07-22] MEDS: LEVETIRACETAM SOL (5 ML) 100 MG/ML UDC GT SCH ×2 (09:39→21:11)
[2016-07-22] MEDS: CHOLESTYRAMINE/ASPARTAME 4 G/PKT PACKET GT SCH (12:51)
[2016-07-22] MEDS: VALSARTAN 80 MG TABLET GT SCH (21:13)
[2016-07-23] VITALS (7 sets, daily range): BP systolic 107–134; BP diastolic 54–77
[2016-07-23] MEDS: ALBUTEROL FS 2.5 MG/3 ML VIAL.NEB NEB SCH ×4 (01:41→19:46)
[2016-07-23] MEDS: IPRATROPIUM NEB FS 0.5 MG/2.5 ML AMPUL.NEB IH SCH ×4 (01:41→19:46)
[2016-07-23] MEDS: LEVOTHYROXINE SODIUM 25 MCG TABLET GT SCH (05:27)
[2016-07-23] MEDS: PANTOPRAZOLE 40 MG/PACK PACK GT SCH (05:27)
[2016-07-23] MEDS: GLYTROL 1,000 ML BAG GT PRN ×2 (05:28→21:06)
[2016-07-23] MEDS: INSULIN REGULAR, HUMAN 100 UNIT/ML 3 ML VIAL SQ PRN ×2 (05:56→17:35)
[2016-07-23] MEDS: BLOOD SUGAR DIAGNOSTIC 1 EACH STRIP IN SCH ×2 (05:56→17:34)
[2016-07-23] MEDS: OMEGA GT SCH ×3 (08:47→17:34)
[2016-07-23] MEDS: LACTOBACILLUS RHAMNOSUS GG 1 EACH CAP.SPRINK GT SCH (08:47)
[2016-07-23] MEDS: LEVETIRACETAM SOL (5 ML) 100 MG/ML UDC GT SCH ×2 (08:47→21:05)
[2016-07-23] MEDS: MVI/MINERALS LIQUID (CEROVITE) GT SCH (08:47)
[2016-07-23] MEDS: PROSOURCE / PROSTAT (PYXIS) 30 ML UDC GT SCH (08:47)
[2016-07-23] MEDS: CARBOXYMETHYLCELLULOSE SODIUM 0.4 ML DROPERETTE EACHEYE SCH (08:47)
[2016-07-23] MEDS: hydrALAZINE HCL 10 MG TABLET GT PRN ×3 (08:48→17:34)
[2016-07-23] MEDS: LABETALOL HCL (100MG) 100 MG TABLET GT SCH ×2 (08:48→21:05)
[2016-07-23] MEDS: ASCORBIC ACID 500 MG TABLET GT SCH (08:48)
[2016-07-23] MEDS: VITAMINS A AND D 56.7 GM TUBE TP SCH ×2 (09:00→21:05)
[2016-07-23] MEDS: HYDROGEL DRESSING 90 GM TUBE TP SCH ×2 (09:00→21:05)
[2016-07-23] MEDS: HYDROGEN PEROXIDE 480 ML BOTTLE TP SCH ×2 (09:00→21:05)
[2016-07-23] MEDS: NYSTATIN TOP POWDER 15 GM BOTTLE TP SCH (09:00)
[2016-07-23] MEDS: HYDROCORTISONE 1% CREAM 30 GM TUBE TP SCH ×2 (09:00→21:05)
[2016-07-23] MEDS: CHOLESTYRAMINE/ASPARTAME 4 G/PKT PACKET GT SCH (12:00)
[2016-07-23] MEDS: VALSARTAN 80 MG TABLET GT SCH (21:06)
[2016-07-24] VITALS (8 sets, daily range): BP systolic 100–120; BP diastolic 53–66
[2016-07-24] MEDS: ALBUTEROL FS 2.5 MG/3 ML VIAL.NEB NEB SCH ×4 (02:18→20:28)
[2016-07-24] MEDS: IPRATROPIUM NEB FS 0.5 MG/2.5 ML AMPUL.NEB IH SCH ×4 (02:18→20:28)
[2016-07-24] MEDS: PANTOPRAZOLE 40 MG/PACK PACK GT SCH (05:36)
[2016-07-24] MEDS: LEVOTHYROXINE SODIUM 25 MCG TABLET GT SCH (05:37)
[2016-07-24] MEDS: BLOOD SUGAR DIAGNOSTIC 1 EACH STRIP IN SCH ×2 (05:37→17:49)
[2016-07-24] MEDS: HYDROCORTISONE 1% CREAM 30 GM TUBE TP SCH ×2 (09:00→21:10)
[2016-07-24] MEDS: LACTOBACILLUS RHAMNOSUS GG 1 EACH CAP.SPRINK GT SCH (09:00)
[2016-07-24] MEDS: CARBOXYMETHYLCELLULOSE SODIUM 0.4 ML DROPERETTE EACHEYE SCH (09:00)
[2016-07-24] MEDS: HYDROGEL DRESSING 90 GM TUBE TP SCH ×2 (09:00→21:09)
[2016-07-24] MEDS: PROSOURCE / PROSTAT (PYXIS) 30 ML UDC GT SCH (09:00)
[2016-07-24] MEDS: VITAMINS A AND D 56.7 GM TUBE TP SCH ×2 (09:00→21:10)
[2016-07-24] MEDS: LABETALOL HCL (100MG) 100 MG TABLET GT SCH ×2 (09:00→21:09)
[2016-07-24] MEDS: HYDROGEN PEROXIDE 480 ML BOTTLE TP SCH ×2 (09:00→21:10)
[2016-07-24] MEDS: ASCORBIC ACID 500 MG TABLET GT SCH (09:00)
[2016-07-24] MEDS: MVI/MINERALS LIQUID (CEROVITE) GT SCH (09:00)
[2016-07-24] MEDS: OMEGA GT SCH ×3 (09:00→16:41)
[2016-07-24] MEDS: LEVETIRACETAM SOL (5 ML) 100 MG/ML UDC GT SCH ×2 (09:00→21:09)
[2016-07-24] MEDS: CHOLESTYRAMINE/ASPARTAME 4 G/PKT PACKET GT SCH (12:23)
[2016-07-24] MEDS: VALSARTAN 80 MG TABLET GT SCH (21:10)
[2016-07-25] VITALS (7 sets, daily range): BP systolic 90–119; BP diastolic 46–64
[2016-07-25] MEDS: IPRATROPIUM NEB FS 0.5 MG/2.5 ML AMPUL.NEB IH SCH ×4 (01:53→20:21)
[2016-07-25] MEDS: ALBUTEROL FS 2.5 MG/3 ML VIAL.NEB NEB SCH ×4 (01:53→20:21)
[2016-07-25] MEDS: BLOOD SUGAR DIAGNOSTIC 1 EACH STRIP IN SCH ×2 (06:02→17:42)
[2016-07-25] MEDS: LEVOTHYROXINE SODIUM 25 MCG TABLET GT SCH (06:02)
[2016-07-25] MEDS: PANTOPRAZOLE 40 MG/PACK PACK GT SCH (06:02)
[2016-07-25] MEDS: LACTOBACILLUS RHAMNOSUS GG 1 EACH CAP.SPRINK GT SCH (09:00)
[2016-07-25] MEDS: LEVETIRACETAM SOL (5 ML) 100 MG/ML UDC GT SCH ×2 (09:00→21:14)
[2016-07-25] MEDS: OMEGA GT SCH ×3 (09:00→17:41)
[2016-07-25] MEDS: MVI/MINERALS LIQUID (CEROVITE) GT SCH (09:00)
[2016-07-25] MEDS: PROSOURCE / PROSTAT (PYXIS) 30 ML UDC GT SCH (09:00)
[2016-07-25] MEDS: LABETALOL HCL (100MG) 100 MG TABLET GT SCH ×2 (09:00→21:00)
[2016-07-25] MEDS: CARBOXYMETHYLCELLULOSE SODIUM 0.4 ML DROPERETTE EACHEYE SCH (09:00)
[2016-07-25] MEDS: ASCORBIC ACID 500 MG TABLET GT SCH (09:00)
--- NOTE | 2016-07-25 10:16 | NUR ---
Noted excoriation to left buttock, made aware with new treatment orders. Ordered wound consult. Noted and carried out.
--- NOTE | 2016-07-25 10:25 | NUR ---
Patients' daughter rogelio was called and made aware that her mother has excoriation to left buttock and she requested not to put her mom in tyson chair today.
[2016-07-25] MEDS: CHOLESTYRAMINE/ASPARTAME 4 G/PKT PACKET GT SCH (12:00)
[2016-07-25] MEDS: VITAMINS A AND D 56.7 GM TUBE TP SCH ×2 (13:00→21:16)
[2016-07-25] MEDS: HYDROGEL DRESSING 90 GM TUBE TP SCH ×2 (13:00→21:15)
[2016-07-25] MEDS: HYDROCORTISONE 1% CREAM 30 GM TUBE TP SCH ×2 (13:00→21:15)
[2016-07-25] MEDS: HYDROGEN PEROXIDE 480 ML BOTTLE TP SCH ×2 (13:00→21:15)
--- NOTE | 2016-07-25 15:03 | NUR ---
@ 1208 GT formula connection (Etienne Valve) noted with leaking formula, towel underneath wet with large amount of formula, BS checked with result of 144 mg/dl to ensure that BS level was not seriously affected, though pt has BS monitoring via fingerstick Q12hr. No signs and symptoms of hypo/hyperglycemia noted upon assessment at this time.
[2016-07-25] MEDS: GLYTROL 1,000 ML BAG GT PRN (15:36)
[2016-07-25] MEDS: Z GUARD REMEDY 4 OZ OINT TP SCH (21:15)
[2016-07-25] MEDS: VALSARTAN 80 MG TABLET GT SCH (21:54)
[2016-07-26] VITALS (7 sets, daily range): BP systolic 103–136; BP diastolic 52–75
[2016-07-26] MEDS: IPRATROPIUM NEB FS 0.5 MG/2.5 ML AMPUL.NEB IH SCH ×4 (01:45→19:58)
[2016-07-26] MEDS: ALBUTEROL FS 2.5 MG/3 ML VIAL.NEB NEB SCH ×4 (01:45→19:58)
[2016-07-26] MEDS: LEVOTHYROXINE SODIUM 25 MCG TABLET GT SCH (06:01)
[2016-07-26] MEDS: BLOOD SUGAR DIAGNOSTIC 1 EACH STRIP IN SCH ×2 (06:01→17:02)
[2016-07-26] MEDS: PANTOPRAZOLE 40 MG/PACK PACK GT SCH (06:01)
[2016-07-26] MEDS: LABETALOL HCL (100MG) 100 MG TABLET GT SCH ×2 (09:00→21:05)
[2016-07-26] MEDS: LACTOBACILLUS RHAMNOSUS GG 1 EACH CAP.SPRINK GT SCH (09:24)
[2016-07-26] MEDS: ASCORBIC ACID 500 MG TABLET GT SCH (09:24)
[2016-07-26] MEDS: CARBOXYMETHYLCELLULOSE SODIUM 0.4 ML DROPERETTE EACHEYE SCH (09:24)
[2016-07-26] MEDS: PROSOURCE / PROSTAT (PYXIS) 30 ML UDC GT SCH (09:24)
[2016-07-26] MEDS: OMEGA GT SCH ×3 (09:24→17:02)
[2016-07-26] MEDS: LEVETIRACETAM SOL (5 ML) 100 MG/ML UDC GT SCH ×2 (09:24→21:04)
[2016-07-26] MEDS: MVI/MINERALS LIQUID (CEROVITE) GT SCH (09:24)
[2016-07-26] MEDS: GLYTROL 1,000 ML BAG GT PRN (09:25)
[2016-07-26] MEDS: HYDROGEL DRESSING 90 GM TUBE TP SCH ×2 (11:00→21:05)
[2016-07-26] MEDS: HYDROGEN PEROXIDE 480 ML BOTTLE TP SCH ×2 (11:00→21:05)
[2016-07-26] MEDS: VITAMINS A AND D 56.7 GM TUBE TP SCH ×2 (11:00→21:05)
[2016-07-26] MEDS: Z GUARD REMEDY 4 OZ OINT TP SCH ×2 (11:00→21:05)
[2016-07-26] MEDS: HYDROCORTISONE 1% CREAM 30 GM TUBE TP SCH ×2 (11:00→21:05)
[2016-07-26] MEDS: CHOLESTYRAMINE/ASPARTAME 4 G/PKT PACKET GT SCH (12:40)
[2016-07-26] MEDS: VALSARTAN 80 MG TABLET GT SCH (21:05)
[2016-07-27] VITALS (7 sets, daily range): BP systolic 101–136; BP diastolic 47–72
[2016-07-27] MEDS: ALBUTEROL FS 2.5 MG/3 ML VIAL.NEB NEB SCH ×5 (01:10→20:19)
[2016-07-27] MEDS: IPRATROPIUM NEB FS 0.5 MG/2.5 ML AMPUL.NEB IH SCH ×5 (01:10→20:19)
[2016-07-27] MEDS: PANTOPRAZOLE 40 MG/PACK PACK GT SCH (05:51)
[2016-07-27] MEDS: LEVOTHYROXINE SODIUM 25 MCG TABLET GT SCH (05:52)
[2016-07-27] MEDS: BLOOD SUGAR DIAGNOSTIC 1 EACH STRIP IN SCH ×2 (05:52→17:52)
--- NOTE | 2016-07-27 08:55 | NUR ---
WOUND CARE CONSULT: PT SEEN FOR SACRAL ULCER, STAGE II, PRESENT ON ADMISSION WITH WOUND BED CHANGES. SACRAL ULCER CONTINUES STAGE II WITH LARGER SIZE (3CM X 5.5CM X 0.1CM ) AND SOME EXCORIATION TO BUTTOCKS. RECOMMEND CONTINUE PRESENT TREATMENT WITH HYDROGEL AND MEPILEX, OFFLOADING. CONTINUE Z GUARD TO BUTTOCK/PERIANAL AREAS AND KEEP SKIN CLEAN AND DRY. DISCUSSED WOUND CARE AND SKIN PROTECTION WITH NURSING STAFF. ALL SKIN PROTECTION MEASURES IN PLACE. WILL SEE PRN. POPE IN AGREEMENT WITH PLAN OF CARE. Addendum: 07/27/16 at 0905 by CORI MENDIETA WNDNU SACRAL ULCER IS PINK AND RED IN COLOR, SCANT AMOUNT OF SEROUS DRAINAGE, NO ODOR.
[2016-07-27] MEDS: PROSOURCE / PROSTAT (PYXIS) 30 ML UDC GT SCH (09:00)
[2016-07-27] MEDS: ASCORBIC ACID 500 MG TABLET GT SCH (09:00)
[2016-07-27] MEDS: Z GUARD REMEDY 4 OZ OINT TP SCH ×2 (09:00→21:19)
[2016-07-27] MEDS: LABETALOL HCL (100MG) 100 MG TABLET GT SCH ×2 (09:00→21:00)
[2016-07-27] MEDS: OMEGA GT SCH ×3 (09:00→17:52)
[2016-07-27] MEDS: LEVETIRACETAM SOL (5 ML) 100 MG/ML UDC GT SCH ×2 (09:00→21:18)
[2016-07-27] MEDS: HYDROGEN PEROXIDE 480 ML BOTTLE TP SCH ×2 (09:00→21:19)
[2016-07-27] MEDS: HYDROGEL DRESSING 90 GM TUBE TP SCH ×2 (09:00→21:19)
[2016-07-27] MEDS: HYDROCORTISONE 1% CREAM 30 GM TUBE TP SCH ×2 (09:00→21:19)
[2016-07-27] MEDS: LACTOBACILLUS RHAMNOSUS GG 1 EACH CAP.SPRINK GT SCH (09:00)
[2016-07-27] MEDS: MVI/MINERALS LIQUID (CEROVITE) GT SCH (09:00)
[2016-07-27] MEDS: CARBOXYMETHYLCELLULOSE SODIUM 0.4 ML DROPERETTE EACHEYE SCH (09:00)
[2016-07-27] MEDS: VITAMINS A AND D 56.7 GM TUBE TP SCH ×2 (09:00→21:19)
[2016-07-27] MEDS: hydrALAZINE HCL 10 MG TABLET GT PRN ×3 (10:01→17:53)
[2016-07-27] MEDS: CHOLESTYRAMINE/ASPARTAME 4 G/PKT PACKET GT SCH (12:20)
--- NOTE | 2016-07-27 15:46 | NUR ---
RP daughter Asuncion hough notified of the room change.
[2016-07-27] MEDS: INSULIN REGULAR, HUMAN 100 UNIT/ML 3 ML VIAL SQ PRN (17:53)
[2016-07-27] MEDS: VALSARTAN 80 MG TABLET GT SCH (21:19)
[2016-07-28] VITALS (7 sets, daily range): BP systolic 109–135; BP diastolic 54–86
[2016-07-28] MEDS: IPRATROPIUM NEB FS 0.5 MG/2.5 ML AMPUL.NEB IH SCH ×4 (02:17→19:13)
[2016-07-28] MEDS: ALBUTEROL FS 2.5 MG/3 ML VIAL.NEB NEB SCH ×4 (02:17→19:13)
[2016-07-28] MEDS: LEVOTHYROXINE SODIUM 25 MCG TABLET GT SCH (05:16)
[2016-07-28] MEDS: PANTOPRAZOLE 40 MG/PACK PACK GT SCH (05:16)
[2016-07-28] MEDS: BLOOD SUGAR DIAGNOSTIC 1 EACH STRIP IN SCH ×2 (05:35→17:26)
[2016-07-28] MEDS: LEVETIRACETAM SOL (5 ML) 100 MG/ML UDC GT SCH ×2 (09:31→21:01)
[2016-07-28] MEDS: ASCORBIC ACID 500 MG TABLET GT SCH (09:31)
[2016-07-28] MEDS: OMEGA GT SCH ×3 (09:31→17:26)
[2016-07-28] MEDS: PROSOURCE / PROSTAT (PYXIS) 30 ML UDC GT SCH (09:31)
[2016-07-28] MEDS: LACTOBACILLUS RHAMNOSUS GG 1 EACH CAP.SPRINK GT SCH (09:31)
[2016-07-28] MEDS: MVI/MINERALS LIQUID (CEROVITE) GT SCH (09:31)
[2016-07-28] MEDS: LABETALOL HCL (100MG) 100 MG TABLET GT SCH ×2 (09:34→21:02)
[2016-07-28] MEDS: HYDROCORTISONE 1% CREAM 30 GM TUBE TP SCH ×2 (09:38→21:02)
[2016-07-28] MEDS: HYDROGEL DRESSING 90 GM TUBE TP SCH ×2 (09:38→21:02)
[2016-07-28] MEDS: HYDROGEN PEROXIDE 480 ML BOTTLE TP SCH ×2 (09:38→21:02)
[2016-07-28] MEDS: VITAMINS A AND D 56.7 GM TUBE TP SCH (09:38)
[2016-07-28] MEDS: Z GUARD REMEDY 4 OZ OINT TP SCH ×2 (09:38→21:02)
[2016-07-28] MEDS: CARBOXYMETHYLCELLULOSE SODIUM 0.4 ML DROPERETTE EACHEYE SCH (09:39)
[2016-07-28] MEDS: CHOLESTYRAMINE/ASPARTAME 4 G/PKT PACKET GT SCH (12:07)
[2016-07-28] MEDS: VALSARTAN 80 MG TABLET GT SCH (21:02)
[2016-07-29] VITALS (7 sets, daily range): BP systolic 105–140; BP diastolic 57–81
[2016-07-29] MEDS: ALBUTEROL FS 2.5 MG/3 ML VIAL.NEB NEB SCH ×4 (01:08→19:30)
[2016-07-29] MEDS: IPRATROPIUM NEB FS 0.5 MG/2.5 ML AMPUL.NEB IH SCH ×4 (01:08→19:30)
[2016-07-29] MEDS: PANTOPRAZOLE 40 MG/PACK PACK GT SCH (05:40)
[2016-07-29] MEDS: LEVOTHYROXINE SODIUM 25 MCG TABLET GT SCH (05:40)
[2016-07-29] MEDS: INSULIN REGULAR, HUMAN 100 UNIT/ML 3 ML VIAL SQ PRN (06:23)
[2016-07-29] MEDS: BLOOD SUGAR DIAGNOSTIC 1 EACH STRIP IN SCH ×2 (06:23→18:05)
[2016-07-29] MEDS: CARBOXYMETHYLCELLULOSE SODIUM 0.4 ML DROPERETTE EACHEYE SCH (08:32)
[2016-07-29] MEDS: OMEGA GT SCH ×3 (08:33→17:00)
[2016-07-29] MEDS: LACTOBACILLUS RHAMNOSUS GG 1 EACH CAP.SPRINK GT SCH (08:33)
[2016-07-29] MEDS: MVI/MINERALS LIQUID (CEROVITE) GT SCH (08:33)
[2016-07-29] MEDS: LEVETIRACETAM SOL (5 ML) 100 MG/ML UDC GT SCH ×2 (08:33→21:10)
[2016-07-29] MEDS: PROSOURCE / PROSTAT (PYXIS) 30 ML UDC GT SCH (08:34)
[2016-07-29] MEDS: Z GUARD REMEDY 4 OZ OINT TP SCH ×2 (08:34→21:11)
[2016-07-29] MEDS: ASCORBIC ACID 500 MG TABLET GT SCH (08:34)
[2016-07-29] MEDS: HYDROGEN PEROXIDE 480 ML BOTTLE TP SCH ×2 (08:34→21:11)
[2016-07-29] MEDS: HYDROGEL DRESSING 90 GM TUBE TP SCH ×2 (08:34→21:11)
[2016-07-29] MEDS: LABETALOL HCL (100MG) 100 MG TABLET GT SCH ×2 (08:34→21:11)
[2016-07-29] MEDS: HYDROCORTISONE 1% CREAM 30 GM TUBE TP SCH ×2 (08:34→21:11)
[2016-07-29] MEDS: CHOLESTYRAMINE/ASPARTAME 4 G/PKT PACKET GT SCH (12:25)
--- NOTE | 2016-07-29 14:55 | NUR ---
IDT meeting was held. Pt's daughter Marielena Miller attended via telephone conference. Dr. Monet ordered to check TSH level on 08/01/16 per pharmacy recommendation.
[2016-07-29] MEDS: VALSARTAN 80 MG TABLET GT SCH (21:12)
[2016-07-30] VITALS (7 sets, daily range): BP systolic 112–137; BP diastolic 57–68
[2016-07-30] MEDS: IPRATROPIUM NEB FS 0.5 MG/2.5 ML AMPUL.NEB IH SCH ×4 (02:01→19:30)
[2016-07-30] MEDS: ALBUTEROL FS 2.5 MG/3 ML VIAL.NEB NEB SCH ×4 (02:02→19:30)
[2016-07-30] MEDS: PANTOPRAZOLE 40 MG/PACK PACK GT SCH (05:39)
[2016-07-30] MEDS: BLOOD SUGAR DIAGNOSTIC 1 EACH STRIP IN SCH ×2 (05:40→17:13)
[2016-07-30] MEDS: LEVOTHYROXINE SODIUM 25 MCG TABLET GT SCH (05:40)
[2016-07-30] MEDS: GLYTROL 1,000 ML BAG GT PRN (05:40)
[2016-07-30] MEDS: LEVETIRACETAM SOL (5 ML) 100 MG/ML UDC GT SCH ×2 (08:10→21:09)
[2016-07-30] MEDS: PROSOURCE / PROSTAT (PYXIS) 30 ML UDC GT SCH (08:10)
[2016-07-30] MEDS: CARBOXYMETHYLCELLULOSE SODIUM 0.4 ML DROPERETTE EACHEYE SCH (08:10)
[2016-07-30] MEDS: MVI/MINERALS LIQUID (CEROVITE) GT SCH (08:10)
[2016-07-30] MEDS: OMEGA GT SCH ×3 (08:10→16:52)
[2016-07-30] MEDS: LACTOBACILLUS RHAMNOSUS GG 1 EACH CAP.SPRINK GT SCH (08:10)
[2016-07-30] MEDS: LABETALOL HCL (100MG) 100 MG TABLET GT SCH ×2 (08:11→21:09)
[2016-07-30] MEDS: ASCORBIC ACID 500 MG TABLET GT SCH (08:11)
[2016-07-30] MEDS: Z GUARD REMEDY 4 OZ OINT TP SCH ×2 (10:00→21:10)
[2016-07-30] MEDS: HYDROCORTISONE 1% CREAM 30 GM TUBE TP SCH ×2 (10:00→21:09)
[2016-07-30] MEDS: HYDROGEL DRESSING 90 GM TUBE TP SCH ×2 (10:00→21:09)
[2016-07-30] MEDS: HYDROGEN PEROXIDE 480 ML BOTTLE TP SCH ×2 (10:00→21:09)
[2016-07-30] MEDS: CHOLESTYRAMINE/ASPARTAME 4 G/PKT PACKET GT SCH (12:54)
[2016-07-30] MEDS: VALSARTAN 80 MG TABLET GT SCH (21:10)
[2016-07-31] VITALS (7 sets, daily range): BP systolic 104–135; BP diastolic 25–63
[2016-07-31] MEDS: IPRATROPIUM NEB FS 0.5 MG/2.5 ML AMPUL.NEB IH SCH ×4 (01:30→19:39)
[2016-07-31] MEDS: ALBUTEROL FS 2.5 MG/3 ML VIAL.NEB NEB SCH ×4 (01:30→19:39)
[2016-07-31] MEDS: LEVOTHYROXINE SODIUM 25 MCG TABLET GT SCH (05:42)
[2016-07-31] MEDS: PANTOPRAZOLE 40 MG/PACK PACK GT SCH (05:42)
[2016-07-31] MEDS: BLOOD SUGAR DIAGNOSTIC 1 EACH STRIP IN SCH ×2 (05:42→17:40)
[2016-07-31] MEDS: CARBOXYMETHYLCELLULOSE SODIUM 0.4 ML DROPERETTE EACHEYE SCH (09:00)
[2016-07-31] MEDS: LEVETIRACETAM SOL (5 ML) 100 MG/ML UDC GT SCH ×2 (09:00→21:13)
[2016-07-31] MEDS: LABETALOL HCL (100MG) 100 MG TABLET GT SCH ×2 (09:00→21:13)
[2016-07-31] MEDS: ASCORBIC ACID 500 MG TABLET GT SCH (09:00)
[2016-07-31] MEDS: OMEGA GT SCH ×3 (09:00→17:40)
[2016-07-31] MEDS: HYDROCORTISONE 1% CREAM 30 GM TUBE TP SCH ×2 (09:00→21:13)
[2016-07-31] MEDS: PROSOURCE / PROSTAT (PYXIS) 30 ML UDC GT SCH (09:00)
[2016-07-31] MEDS: MVI/MINERALS LIQUID (CEROVITE) GT SCH (09:00)
[2016-07-31] MEDS: HYDROGEL DRESSING 90 GM TUBE TP SCH ×2 (09:00→21:13)
[2016-07-31] MEDS: LACTOBACILLUS RHAMNOSUS GG 1 EACH CAP.SPRINK GT SCH (09:00)
[2016-07-31] MEDS: HYDROGEN PEROXIDE 480 ML BOTTLE TP SCH ×2 (09:01→21:13)
[2016-07-31] MEDS: Z GUARD REMEDY 4 OZ OINT TP SCH ×2 (09:01→21:13)
[2016-07-31] MEDS: CHOLESTYRAMINE/ASPARTAME 4 G/PKT PACKET GT SCH (12:25)
[2016-07-31] MEDS: VALSARTAN 80 MG TABLET GT SCH (21:13)
[2016-08-01] VITALS (8 sets, daily range): BP systolic 101–126; BP diastolic 54–69
[2016-08-01] MEDS: ALBUTEROL FS 2.5 MG/3 ML VIAL.NEB NEB SCH ×4 (00:57→19:44)
[2016-08-01] MEDS: IPRATROPIUM NEB FS 0.5 MG/2.5 ML AMPUL.NEB IH SCH ×4 (00:57→19:44)
[2016-08-01] MEDS: PANTOPRAZOLE 40 MG/PACK PACK GT SCH (05:31)
[2016-08-01] MEDS: BLOOD SUGAR DIAGNOSTIC 1 EACH STRIP IN SCH ×2 (05:31→17:02)
[2016-08-01] MEDS: LEVOTHYROXINE SODIUM 25 MCG TABLET GT SCH (05:31)
[2016-08-01] MEDS: OMEGA GT SCH ×3 (09:18→17:02)
[2016-08-01] MEDS: LACTOBACILLUS RHAMNOSUS GG 1 EACH CAP.SPRINK GT SCH (09:18)
[2016-08-01] MEDS: MVI/MINERALS LIQUID (CEROVITE) GT SCH (09:18)
[2016-08-01] MEDS: LEVETIRACETAM SOL (5 ML) 100 MG/ML UDC GT SCH ×2 (09:18→21:08)
[2016-08-01] MEDS: PROSOURCE / PROSTAT (PYXIS) 30 ML UDC GT SCH (09:18)
[2016-08-01] MEDS: ASCORBIC ACID 500 MG TABLET GT SCH (09:18)
[2016-08-01] MEDS: LABETALOL HCL (100MG) 100 MG TABLET GT SCH ×2 (09:18→21:09)
[2016-08-01] MEDS: CARBOXYMETHYLCELLULOSE SODIUM 0.4 ML DROPERETTE EACHEYE SCH (09:18)
[2016-08-01] MEDS: CHOLESTYRAMINE/ASPARTAME 4 G/PKT PACKET GT SCH (12:00)
[2016-08-01] MEDS: HYDROCORTISONE 1% CREAM 30 GM TUBE TP SCH ×2 (14:00→21:09)
[2016-08-01] MEDS: Z GUARD REMEDY 4 OZ OINT TP SCH ×2 (14:00→21:09)
[2016-08-01] MEDS: HYDROGEN PEROXIDE 480 ML BOTTLE TP SCH ×2 (14:00→21:09)
[2016-08-01] MEDS: HYDROGEL DRESSING 90 GM TUBE TP SCH ×2 (14:00→21:09)
[2016-08-01] MEDS: GLYTROL 1,000 ML BAG GT PRN (17:12)
--- NOTE | 2016-08-01 19:13 | NUR ---
TSH 5.786. Pt was seen by FREIGHT ADJUSTER Becca Smith and TSH level was relayed to her. Received order to increase Synthroid to 50 mcg GT daily.
--- NOTE | 2016-08-01 19:20 | NUR ---
RN NOTES Seen by Becca Smith, reviewed TSH level of 5.786 (H). Received new order to d/c previous order of synthroid and increase to 50mcg via GT every day at 0600, noted and carried out. Notified daughter, Sanam of new order.
[2016-08-01] MEDS: VALSARTAN 80 MG TABLET GT SCH (21:09)
[2016-08-02] VITALS (7 sets, daily range): BP systolic 112–135; BP diastolic 58–62
[2016-08-02] MEDS: ALBUTEROL FS 2.5 MG/3 ML VIAL.NEB NEB SCH ×4 (02:08→19:30)
[2016-08-02] MEDS: IPRATROPIUM NEB FS 0.5 MG/2.5 ML AMPUL.NEB IH SCH ×4 (02:08→19:30)
[2016-08-02] MEDS: PANTOPRAZOLE 40 MG/PACK PACK GT SCH (05:36)
[2016-08-02] MEDS: BLOOD SUGAR DIAGNOSTIC 1 EACH STRIP IN SCH ×2 (05:36→18:11)
[2016-08-02] MEDS ORDERED: LEVOTHYROXINE SODIUM 25 MCG TABLET PO SCH (06:00)
[2016-08-02] MEDS: LACTOBACILLUS RHAMNOSUS GG 1 EACH CAP.SPRINK GT SCH (08:14)
[2016-08-02] MEDS: CARBOXYMETHYLCELLULOSE SODIUM 0.4 ML DROPERETTE EACHEYE SCH (08:14)
[2016-08-02] MEDS: LEVETIRACETAM SOL (5 ML) 100 MG/ML UDC GT SCH ×2 (08:14→21:13)
[2016-08-02] MEDS: MVI/MINERALS LIQUID (CEROVITE) GT SCH (08:14)
[2016-08-02] MEDS: ASCORBIC ACID 500 MG TABLET GT SCH (08:14)
[2016-08-02] MEDS: OMEGA GT SCH ×3 (08:14→17:06)
[2016-08-02] MEDS: LABETALOL HCL (100MG) 100 MG TABLET GT SCH ×2 (08:14→21:13)
[2016-08-02] MEDS: PROSOURCE / PROSTAT (PYXIS) 30 ML UDC GT SCH (08:14)
[2016-08-02] MEDS: Z GUARD REMEDY 4 OZ OINT TP SCH ×2 (11:45→21:14)
[2016-08-02] MEDS: HYDROGEN PEROXIDE 480 ML BOTTLE TP SCH ×2 (11:45→21:14)
[2016-08-02] MEDS: HYDROGEL DRESSING 90 GM TUBE TP SCH ×2 (11:45→21:14)
[2016-08-02] MEDS: HYDROCORTISONE 1% CREAM 30 GM TUBE TP SCH (11:45)
[2016-08-02] MEDS: CHOLESTYRAMINE/ASPARTAME 4 G/PKT PACKET GT SCH (12:04)
[2016-08-02] MEDS: GLYTROL 1,000 ML BAG GT PRN (12:45)
[2016-08-02] MEDS: VALSARTAN 80 MG TABLET GT SCH (21:13)
[2016-08-03] VITALS (9 sets, daily range): BP systolic 103–116; BP diastolic 51–67
[2016-08-03] MEDS: ALBUTEROL FS 2.5 MG/3 ML VIAL.NEB NEB SCH ×4 (01:53→20:09)
[2016-08-03] MEDS: IPRATROPIUM NEB FS 0.5 MG/2.5 ML AMPUL.NEB IH SCH ×4 (01:53→20:09)
[2016-08-03] MEDS ORDERED: LEVOTHYROXINE SODIUM 25 MCG TABLET ONE (05:48)
[2016-08-03] MEDS: PANTOPRAZOLE 40 MG/PACK PACK GT SCH (05:56)
[2016-08-03] MEDS: LEVOTHYROXINE SODIUM 25 MCG TABLET PO SCH (05:57)
[2016-08-03] MEDS: BLOOD SUGAR DIAGNOSTIC 1 EACH STRIP IN SCH ×2 (06:00→18:12)
--- NOTE | 2016-08-03 06:56 | NUR ---
food prep worker /notes blood sugar checked done 108, no signs of hypo glycemia noted. g-tube feeding tolerated well no aspiration noted. all due meds given and stable park the night. vital signs within normal limit. kept her warm and comfortable at all times. will endorse to am nurse for continuity of care.
[2016-08-03] MEDS: OMEGA GT SCH ×3 (08:01→17:00)
[2016-08-03] MEDS: CARBOXYMETHYLCELLULOSE SODIUM 0.4 ML DROPERETTE EACHEYE SCH (08:05)
[2016-08-03] MEDS: PROSOURCE / PROSTAT (PYXIS) 30 ML UDC GT SCH (08:06)
[2016-08-03] MEDS: LEVETIRACETAM SOL (5 ML) 100 MG/ML UDC GT SCH ×2 (08:06→20:24)
[2016-08-03] MEDS: LACTOBACILLUS RHAMNOSUS GG 1 EACH CAP.SPRINK GT SCH (08:06)
[2016-08-03] MEDS: ASCORBIC ACID 500 MG TABLET GT SCH (08:08)
[2016-08-03] MEDS: LABETALOL HCL (100MG) 100 MG TABLET GT SCH ×2 (08:10→20:24)
--- NOTE | 2016-08-03 09:08 | NUR ---
Was contacted by PADMA Escalante stating that he wants to set a meeting with responsible parties to discuss plan of care regarding resident. Informed him that Reyna is the DPOA for resident but stated that if possible he would like the other sister's there. Sent message to Dyana and Reyna (DPOA). Received a call from Reyna stating that she does not want her sister there as they do not agree on the plan of care for resident and that she is the DPOA for the resident. JOSSE noted that she can be the sole attendee. Spoke to Dyana and stated that because Reyna is the DPOA she will be the sole attendee with CNO and will address her questions with her sister. Reyna to respond to questions from Dyana regarding the meeting and Reyna (DPOA) wants SW to put a notice not to discuss plan of care (only regarding stopping or continuing treatment) with any of the siblings. JOSSE wrote a notice and informed charge nurse of Reyna's request not to disclose any info regarding stopping or continuing treatment. Laborer Wood Preserving Plant Rebecca placed notice in front of resident's chart per charge nurses's request and placed another notice in the endorsement folder. Reyna stated that she can meet anytime after 4:30pm Monday-Monday and JOSSE will follow up with KATARINAO to check his availability. Addendum: 08/03/16 at 1042 by LUIS LOAIZA Meeting was set for 4:30pm on Tuesday August 09, 2016. Informed CNO, subacute nursing support worker, and confirmed with resident's daughter Reyna.
[2016-08-03] MEDS: Z GUARD REMEDY 4 OZ OINT TP SCH ×2 (09:36→20:24)
[2016-08-03] MEDS: HYDROGEL DRESSING 90 GM TUBE TP SCH (09:36)
[2016-08-03] MEDS: MVI/MINERALS LIQUID (CEROVITE) GT SCH (09:36)
[2016-08-03] MEDS: HYDROGEN PEROXIDE 480 ML BOTTLE TP SCH ×2 (09:36→20:24)
[2016-08-03] MEDS: GLYTROL 1,000 ML BAG GT PRN (10:48)
[2016-08-03] MEDS: CHOLESTYRAMINE/ASPARTAME 4 G/PKT PACKET GT SCH (11:25)
[2016-08-03] MEDS: VALSARTAN 80 MG TABLET GT SCH (22:41)
[2016-08-04] VITALS (8 sets, daily range): BP systolic 95–135; BP diastolic 54–67
[2016-08-04] MEDS: ALBUTEROL FS 2.5 MG/3 ML VIAL.NEB NEB SCH ×4 (01:42→19:41)
[2016-08-04] MEDS: IPRATROPIUM NEB FS 0.5 MG/2.5 ML AMPUL.NEB IH SCH ×4 (01:42→19:41)
[2016-08-04] MEDS: LEVOTHYROXINE SODIUM 25 MCG TABLET PO SCH (05:56)
[2016-08-04] MEDS: PANTOPRAZOLE 40 MG/PACK PACK GT SCH (05:56)
[2016-08-04] MEDS: BLOOD SUGAR DIAGNOSTIC 1 EACH STRIP IN SCH ×2 (05:56→18:00)
[2016-08-04] MEDS: INSULIN REGULAR, HUMAN 100 UNIT/ML 3 ML VIAL SQ PRN (05:57)
[2016-08-04] MEDS: GLYTROL 1,000 ML BAG GT PRN (05:57)
[2016-08-04] MEDS: Z GUARD REMEDY 4 OZ OINT TP SCH ×2 (09:00→21:26)
[2016-08-04] MEDS: HYDROGEN PEROXIDE 480 ML BOTTLE TP SCH ×2 (09:00→21:25)
[2016-08-04] MEDS: PROSOURCE / PROSTAT (PYXIS) 30 ML UDC GT SCH (09:00)
[2016-08-04] MEDS: LEVETIRACETAM SOL (5 ML) 100 MG/ML UDC GT SCH ×2 (09:00→21:24)
[2016-08-04] MEDS: ASCORBIC ACID 500 MG TABLET GT SCH (09:00)
[2016-08-04] MEDS: CARBOXYMETHYLCELLULOSE SODIUM 0.4 ML DROPERETTE EACHEYE SCH (09:00)
[2016-08-04] MEDS: MVI/MINERALS LIQUID (CEROVITE) GT SCH (09:00)
[2016-08-04] MEDS: LACTOBACILLUS RHAMNOSUS GG 1 EACH CAP.SPRINK GT SCH (09:00)
[2016-08-04] MEDS: LABETALOL HCL (100MG) 100 MG TABLET GT SCH ×2 (09:00→21:00)
[2016-08-04] MEDS: OMEGA GT SCH ×3 (09:00→17:34)
[2016-08-04] MEDS: CHOLESTYRAMINE/ASPARTAME 4 G/PKT PACKET GT SCH (12:00)
[2016-08-04] MEDS: VALSARTAN 80 MG TABLET GT SCH (21:26)
[2016-08-05] VITALS (7 sets, daily range): BP systolic 102–122; BP diastolic 55–86
[2016-08-05] MEDS: GLYTROL 1,000 ML BAG GT PRN ×2 (00:35→20:34)
[2016-08-05] MEDS: IPRATROPIUM NEB FS 0.5 MG/2.5 ML AMPUL.NEB IH SCH ×4 (01:22→20:03)
[2016-08-05] MEDS: ALBUTEROL FS 2.5 MG/3 ML VIAL.NEB NEB SCH ×4 (01:22→20:03)
[2016-08-05] MEDS: LEVOTHYROXINE SODIUM 25 MCG TABLET PO SCH (05:32)
[2016-08-05] MEDS: BLOOD SUGAR DIAGNOSTIC 1 EACH STRIP IN SCH ×2 (05:32→17:35)
[2016-08-05] MEDS: PANTOPRAZOLE 40 MG/PACK PACK GT SCH (05:32)
[2016-08-05] MEDS: INSULIN REGULAR, HUMAN 100 UNIT/ML 3 ML VIAL SQ PRN (05:33)
[2016-08-05] MEDS: LACTOBACILLUS RHAMNOSUS GG 1 EACH CAP.SPRINK GT SCH (09:33)
[2016-08-05] MEDS: LABETALOL HCL (100MG) 100 MG TABLET GT SCH ×2 (09:34→21:00)
[2016-08-05] MEDS: CARBOXYMETHYLCELLULOSE SODIUM 0.4 ML DROPERETTE EACHEYE SCH (09:34)
[2016-08-05] MEDS: MVI/MINERALS LIQUID (CEROVITE) GT SCH (09:34)
[2016-08-05] MEDS: OMEGA GT SCH ×3 (09:34→17:35)
[2016-08-05] MEDS: LEVETIRACETAM SOL (5 ML) 100 MG/ML UDC GT SCH ×2 (09:34→21:03)
[2016-08-05] MEDS: PROSOURCE / PROSTAT (PYXIS) 30 ML UDC GT SCH (09:34)
[2016-08-05] MEDS: ASCORBIC ACID 500 MG TABLET GT SCH (09:34)
[2016-08-05] MEDS: HYDROGEN PEROXIDE 480 ML BOTTLE TP SCH ×2 (09:34→21:03)
[2016-08-05] MEDS: Z GUARD REMEDY 4 OZ OINT TP SCH ×2 (09:35→21:03)
[2016-08-05] MEDS: CHOLESTYRAMINE/ASPARTAME 4 G/PKT PACKET GT SCH (12:14)
[2016-08-05] MEDS: HYDROGEL DRESSING 90 GM TUBE TP SCH (21:03)
[2016-08-05] MEDS: VALSARTAN 80 MG TABLET GT SCH (21:04)
[2016-08-06] VITALS (8 sets, daily range): BP systolic 101–111; BP diastolic 50–78
[2016-08-06] MEDS: IPRATROPIUM NEB FS 0.5 MG/2.5 ML AMPUL.NEB IH SCH ×4 (01:25→19:45)
[2016-08-06] MEDS: ALBUTEROL FS 2.5 MG/3 ML VIAL.NEB NEB SCH ×4 (01:25→19:45)
[2016-08-06] MEDS: BLOOD SUGAR DIAGNOSTIC 1 EACH STRIP IN SCH ×2 (06:08→17:22)
[2016-08-06] MEDS: PANTOPRAZOLE 40 MG/PACK PACK GT SCH (06:08)
[2016-08-06] MEDS: LEVOTHYROXINE SODIUM 25 MCG TABLET PO SCH (06:08)
[2016-08-06] MEDS: INSULIN REGULAR, HUMAN 100 UNIT/ML 3 ML VIAL SQ PRN (06:09)
[2016-08-06] MEDS: HYDROGEN PEROXIDE 480 ML BOTTLE TP SCH ×2 (09:00→21:05)
[2016-08-06] MEDS: Z GUARD REMEDY 4 OZ OINT TP SCH ×2 (09:00→21:05)
[2016-08-06] MEDS: LABETALOL HCL (100MG) 100 MG TABLET GT SCH ×2 (09:00→21:00)
[2016-08-06] MEDS: LACTOBACILLUS RHAMNOSUS GG 1 EACH CAP.SPRINK GT SCH (09:58)
[2016-08-06] MEDS: CARBOXYMETHYLCELLULOSE SODIUM 0.4 ML DROPERETTE EACHEYE SCH (09:58)
[2016-08-06] MEDS: MVI/MINERALS LIQUID (CEROVITE) GT SCH (09:59)
[2016-08-06] MEDS: PROSOURCE / PROSTAT (PYXIS) 30 ML UDC GT SCH (09:59)
[2016-08-06] MEDS: OMEGA GT SCH ×3 (09:59→17:22)
[2016-08-06] MEDS: HYDROGEL DRESSING 90 GM TUBE TP SCH ×2 (09:59→21:05)
[2016-08-06] MEDS: LEVETIRACETAM SOL (5 ML) 100 MG/ML UDC GT SCH ×2 (09:59→21:05)
[2016-08-06] MEDS: ASCORBIC ACID 500 MG TABLET GT SCH (09:59)
[2016-08-06] MEDS: CHOLESTYRAMINE/ASPARTAME 4 G/PKT PACKET GT SCH (12:00)
--- NOTE | 2016-08-06 13:11 | NUR ---
Seen and examined by Dr. Ramirez no new order given.
[2016-08-06] MEDS: GLYTROL 1,000 ML BAG GT PRN (18:13)
[2016-08-06] MEDS: NYSTATIN TOP POWDER 15 GM BOTTLE TP SCH (21:05)
[2016-08-06] MEDS: VALSARTAN 80 MG TABLET GT SCH (21:06)
[2016-08-07] VITALS (8 sets, daily range): BP systolic 108–120; BP diastolic 54–67
[2016-08-07] MEDS: IPRATROPIUM NEB FS 0.5 MG/2.5 ML AMPUL.NEB IH SCH ×4 (01:36→19:38)
[2016-08-07] MEDS: ALBUTEROL FS 2.5 MG/3 ML VIAL.NEB NEB SCH ×4 (01:36→19:38)
[2016-08-07] MEDS: LEVOTHYROXINE SODIUM 25 MCG TABLET PO SCH (05:32)
[2016-08-07] MEDS: BLOOD SUGAR DIAGNOSTIC 1 EACH STRIP IN SCH ×2 (05:32→17:28)
[2016-08-07] MEDS: PANTOPRAZOLE 40 MG/PACK PACK GT SCH (05:32)
[2016-08-07] MEDS: INSULIN REGULAR, HUMAN 100 UNIT/ML 3 ML VIAL SQ PRN (06:12)
[2016-08-07] MEDS: OMEGA GT SCH ×3 (09:29→16:53)
[2016-08-07] MEDS: LEVETIRACETAM SOL (5 ML) 100 MG/ML UDC GT SCH ×2 (09:29→21:19)
[2016-08-07] MEDS: PROSOURCE / PROSTAT (PYXIS) 30 ML UDC GT SCH (09:29)
[2016-08-07] MEDS: MVI/MINERALS LIQUID (CEROVITE) GT SCH (09:29)
[2016-08-07] MEDS: CARBOXYMETHYLCELLULOSE SODIUM 0.4 ML DROPERETTE EACHEYE SCH (09:29)
[2016-08-07] MEDS: LACTOBACILLUS RHAMNOSUS GG 1 EACH CAP.SPRINK GT SCH (09:29)
[2016-08-07] MEDS: LABETALOL HCL (100MG) 100 MG TABLET GT SCH ×2 (09:30→21:19)
[2016-08-07] MEDS: HYDROGEL DRESSING 90 GM TUBE TP SCH ×2 (09:30→21:19)
[2016-08-07] MEDS: ASCORBIC ACID 500 MG TABLET GT SCH (09:30)
[2016-08-07] MEDS: NYSTATIN TOP POWDER 15 GM BOTTLE TP SCH ×2 (09:31→21:19)
[2016-08-07] MEDS: HYDROGEN PEROXIDE 480 ML BOTTLE TP SCH ×2 (09:31→21:19)
[2016-08-07] MEDS: Z GUARD REMEDY 4 OZ OINT TP SCH ×2 (09:31→21:19)
[2016-08-07] MEDS: CHOLESTYRAMINE/ASPARTAME 4 G/PKT PACKET GT SCH (12:34)
[2016-08-07] MEDS: VALSARTAN 80 MG TABLET GT SCH (21:20)
[2016-08-08] MEDS: ALBUTEROL FS 2.5 MG/3 ML VIAL.NEB NEB SCH ×4 (01:40→20:01)
[2016-08-08] MEDS: IPRATROPIUM NEB FS 0.5 MG/2.5 ML AMPUL.NEB IH SCH ×4 (01:40→20:01)
[2016-08-08 05:16] VITALS: BP 124/62
[2016-08-08] MEDS: PANTOPRAZOLE 40 MG/PACK PACK GT SCH (06:08)
[2016-08-08] MEDS: BLOOD SUGAR DIAGNOSTIC 1 EACH STRIP IN SCH ×2 (06:08→18:00)
[2016-08-08] MEDS: LEVOTHYROXINE SODIUM 25 MCG TABLET PO SCH (06:08)
[2016-08-08] MEDS: MVI/MINERALS LIQUID (CEROVITE) GT SCH (08:07)
[2016-08-08] MEDS: CARBOXYMETHYLCELLULOSE SODIUM 0.4 ML DROPERETTE EACHEYE SCH (08:07)
[2016-08-08] MEDS: LABETALOL HCL (100MG) 100 MG TABLET GT SCH ×2 (08:07→21:00)
[2016-08-08] MEDS: LACTOBACILLUS RHAMNOSUS GG 1 EACH CAP.SPRINK GT SCH (08:07)
[2016-08-08] MEDS: OMEGA GT SCH ×3 (08:07→16:48)
[2016-08-08] MEDS: ASCORBIC ACID 500 MG TABLET GT SCH (08:07)
[2016-08-08] MEDS: LEVETIRACETAM SOL (5 ML) 100 MG/ML UDC GT SCH ×2 (08:07→21:24)
[2016-08-08] MEDS: PROSOURCE / PROSTAT (PYXIS) 30 ML UDC GT SCH (08:07)
[2016-08-08 08:31] VITALS: BP 116/57
[2016-08-08] MEDS: NYSTATIN TOP POWDER 15 GM BOTTLE TP SCH ×2 (11:30→21:25)
[2016-08-08] MEDS: HYDROGEN PEROXIDE 480 ML BOTTLE TP SCH ×2 (11:30→21:25)
[2016-08-08] MEDS: HYDROGEL DRESSING 90 GM TUBE TP SCH ×2 (11:30→21:25)
[2016-08-08] MEDS: Z GUARD REMEDY 4 OZ OINT TP SCH (11:30)
[2016-08-08] MEDS: CHOLESTYRAMINE/ASPARTAME 4 G/PKT PACKET GT SCH (12:09)
[2016-08-08] MEDS: GLYTROL 1,000 ML BAG GT PRN ×2 (12:20→12:22)
[2016-08-08 17:00] VITALS: BP 122/72
[2016-08-08 20:06] VITALS: BP 97/60
[2016-08-08 21:05] VITALS: BP 97/62
[2016-08-08] MEDS: VALSARTAN 80 MG TABLET GT SCH (21:26)
[2016-08-09] VITALS (7 sets, daily range): BP systolic 106–119; BP diastolic 61–66
[2016-08-09] MEDS: IPRATROPIUM NEB FS 0.5 MG/2.5 ML AMPUL.NEB IH SCH ×4 (01:56→19:44)
[2016-08-09] MEDS: ALBUTEROL FS 2.5 MG/3 ML VIAL.NEB NEB SCH ×4 (01:56→19:44)
[2016-08-09] MEDS: LEVOTHYROXINE SODIUM 25 MCG TABLET PO SCH (05:47)
[2016-08-09] MEDS: PANTOPRAZOLE 40 MG/PACK PACK GT SCH (05:47)
[2016-08-09] MEDS: BLOOD SUGAR DIAGNOSTIC 1 EACH STRIP IN SCH ×2 (05:47→18:33)
[2016-08-09] MEDS: MVI/MINERALS LIQUID (CEROVITE) GT SCH (08:42)
[2016-08-09] MEDS: LABETALOL HCL (100MG) 100 MG TABLET GT SCH ×2 (08:42→21:00)
[2016-08-09] MEDS: CARBOXYMETHYLCELLULOSE SODIUM 0.4 ML DROPERETTE EACHEYE SCH (08:42)
[2016-08-09] MEDS: OMEGA GT SCH ×3 (08:42→17:12)
[2016-08-09] MEDS: LEVETIRACETAM SOL (5 ML) 100 MG/ML UDC GT SCH ×2 (08:42→21:06)
[2016-08-09] MEDS: LACTOBACILLUS RHAMNOSUS GG 1 EACH CAP.SPRINK GT SCH (08:42)
[2016-08-09] MEDS: PROSOURCE / PROSTAT (PYXIS) 30 ML UDC GT SCH (08:42)
[2016-08-09] MEDS: ASCORBIC ACID 500 MG TABLET GT SCH (08:42)
[2016-08-09] MEDS: HYDROGEN PEROXIDE 480 ML BOTTLE TP SCH ×2 (10:00→21:06)
[2016-08-09] MEDS: NYSTATIN TOP POWDER 15 GM BOTTLE TP SCH ×2 (10:00→21:06)
[2016-08-09] MEDS: HYDROGEL DRESSING 90 GM TUBE TP SCH ×2 (10:00→21:06)
[2016-08-09] MEDS: CHOLESTYRAMINE/ASPARTAME 4 G/PKT PACKET GT SCH (12:00)
--- NOTE | 2016-08-09 18:17 | NUR ---
At approximately 1645 we met with Reyna Galindo, the patient's daughter and DPOA, to discuss the patient's status. PADMA Mark, and Anne-Marie Zhu were present. Ms. Galindo came with a friend who is a social work professor with another organization. Ms. Galindo stated she would like to explore the end of life options for the patient. Ms. Galindo stated she does not want to inform the other family members of her wishes for her mother. Ms. Galindo stated the family dynamics are very complicated and the patient's other adult daughters are not in agreement with Ms. Galindo. Boris Anderson informed Ms. Galindo he would discuss the situation with Dr. Ramirez and speak with Ms. Galindo again.
--- NOTE | 2016-08-09 18:24 | NUR ---
Met with resident's DPOA (Reyna Meehan), PADMA Escalante, nursing service director Rosalina Joshi, and DPOA's JOSSE SOTO. Meeting time: 4:40PM-5:45PM. CINDY wanted to discuss her wishes for the resident's plan of care. She stated that she wishes to follow her mother's wishes (which is to pass peacefully). However, she noted that her sister's do not agree with her view and that family conflict exists. Reyna stated that she has been prolonging the decision to withhold care for her mother in order to please her siblings, which have the belief that she will get better. Reyna stated that she herself is a nurse and understands what the process is like. She also feels burdened about having to make this decision for the family. She reported that her sibling Dyana has developed anxiety over mother's illness to the point where she has stopped working, has become obsessive over her mother's condition, and has developed irrational beliefs. DPOA Reyna reported that she does not want her siblings to get involved and wants it to be as discreet as possible. CNO and nursing service director discussed that it will be noticeable and that it is not something that they can do. Reyna DPMYLA wants staff to lie to her siblings regarding her mother's care. Boris BRAYO reported that that is not something that they can do. He discussed the option of hospice however DPOA noted that she does not want the resident moved around. unit manager explained that legally, subacute cannot do hospice on the unit, that resident has to be transferred to medical floor and if more than six days, to a facility. CNO discussed that hospice is the best decision if DPOA wishes to proceed with withholding treatment. CNO stated that if possible, he would like family members to have a discussion but DPOA noted that it is not possible and family has had conflict for a long time now. She continues to state that she would like to keep her siblings out of her decision. Reyna stated that resident has placed her financial affairs in order before she got sick. Daughter discussed that she wants bolus feeding to be done however CNO/nursing service director to not think that doctor's will agree with that. CNO stated that another option is to take resident home but dtr noted that this is not currently possible for her. unit manager stated that there is more leeway with hospice but DPOA does not want resident transferred out. PADMA Escalante to discuss dtrs wishes (for bolus feeding) with physician and will report back to SW and nursing service director. Possibility of bioethics meeting was discussed if there is no agreement.
[2016-08-09] MEDS: VALSARTAN 80 MG TABLET GT SCH (21:07)
[2016-08-10] VITALS (7 sets, daily range): BP systolic 101–120; BP diastolic 59–70
[2016-08-10] MEDS: IPRATROPIUM NEB FS 0.5 MG/2.5 ML AMPUL.NEB IH SCH ×4 (02:02→20:13)
[2016-08-10] MEDS: ALBUTEROL FS 2.5 MG/3 ML VIAL.NEB NEB SCH ×4 (02:03→20:13)
[2016-08-10] MEDS: BLOOD SUGAR DIAGNOSTIC 1 EACH STRIP IN SCH ×2 (05:58→17:49)
[2016-08-10] MEDS: PANTOPRAZOLE 40 MG/PACK PACK GT SCH (05:58)
[2016-08-10] MEDS: LEVOTHYROXINE SODIUM 25 MCG TABLET PO SCH (05:58)
[2016-08-10] MEDS: OMEGA GT SCH ×3 (08:52→17:49)
[2016-08-10] MEDS: LEVETIRACETAM SOL (5 ML) 100 MG/ML UDC GT SCH ×2 (08:52→20:58)
[2016-08-10] MEDS: LABETALOL HCL (100MG) 100 MG TABLET GT SCH ×2 (08:52→20:58)
[2016-08-10] MEDS: MVI/MINERALS LIQUID (CEROVITE) GT SCH (08:52)
[2016-08-10] MEDS: PROSOURCE / PROSTAT (PYXIS) 30 ML UDC GT SCH (08:52)
[2016-08-10] MEDS: LACTOBACILLUS RHAMNOSUS GG 1 EACH CAP.SPRINK GT SCH (08:52)
[2016-08-10] MEDS: NYSTATIN TOP POWDER 15 GM BOTTLE TP SCH ×2 (08:53→21:25)
[2016-08-10] MEDS: HYDROGEL DRESSING 90 GM TUBE TP SCH ×2 (08:53→21:24)
[2016-08-10] MEDS: ASCORBIC ACID 500 MG TABLET GT SCH (08:53)
[2016-08-10] MEDS: HYDROGEN PEROXIDE 480 ML BOTTLE TP SCH ×2 (08:53→21:25)
[2016-08-10] MEDS: hydrALAZINE HCL 10 MG TABLET GT PRN ×3 (08:57→17:58)
[2016-08-10] MEDS: CARBOXYMETHYLCELLULOSE SODIUM 0.4 ML DROPERETTE EACHEYE SCH (08:59)
[2016-08-10] MEDS: CHOLESTYRAMINE/ASPARTAME 4 G/PKT PACKET GT SCH (11:23)
[2016-08-10] MEDS: INSULIN REGULAR, HUMAN 100 UNIT/ML 3 ML VIAL SQ PRN (17:49)
[2016-08-10] MEDS: VALSARTAN 80 MG TABLET GT SCH (22:00)
[2016-08-10] MEDS: GLYTROL 1,000 ML BAG GT PRN (22:33)
[2016-08-11] VITALS (7 sets, daily range): BP systolic 109–125; BP diastolic 60–69
[2016-08-11] MEDS: ALBUTEROL FS 2.5 MG/3 ML VIAL.NEB NEB SCH ×5 (02:01→20:33)
[2016-08-11] MEDS: IPRATROPIUM NEB FS 0.5 MG/2.5 ML AMPUL.NEB IH SCH ×5 (02:01→20:33)
[2016-08-11] MEDS: LEVOTHYROXINE SODIUM 25 MCG TABLET PO SCH (05:34)
[2016-08-11] MEDS: PANTOPRAZOLE 40 MG/PACK PACK GT SCH (05:34)
[2016-08-11] MEDS: INSULIN REGULAR, HUMAN 100 UNIT/ML 3 ML VIAL SQ PRN (05:34)
[2016-08-11] MEDS: BLOOD SUGAR DIAGNOSTIC 1 EACH STRIP IN SCH ×2 (05:34→17:40)
[2016-08-11] MEDS: MVI/MINERALS LIQUID (CEROVITE) GT SCH (08:34)
[2016-08-11] MEDS: LEVETIRACETAM SOL (5 ML) 100 MG/ML UDC GT SCH ×2 (08:34→21:16)
[2016-08-11] MEDS: PROSOURCE / PROSTAT (PYXIS) 30 ML UDC GT SCH (08:34)
[2016-08-11] MEDS: OMEGA GT SCH ×3 (08:34→17:40)
[2016-08-11] MEDS: LACTOBACILLUS RHAMNOSUS GG 1 EACH CAP.SPRINK GT SCH (08:34)
[2016-08-11] MEDS: CARBOXYMETHYLCELLULOSE SODIUM 0.4 ML DROPERETTE EACHEYE SCH (08:34)
[2016-08-11] MEDS: LABETALOL HCL (100MG) 100 MG TABLET GT SCH ×2 (08:35→21:00)
[2016-08-11] MEDS: ASCORBIC ACID 500 MG TABLET GT SCH (08:35)
[2016-08-11] MEDS: NYSTATIN TOP POWDER 15 GM BOTTLE TP SCH ×2 (10:45→21:17)
[2016-08-11] MEDS: HYDROGEN PEROXIDE 480 ML BOTTLE TP SCH ×2 (10:45→21:17)
[2016-08-11] MEDS: HYDROGEL DRESSING 90 GM TUBE TP SCH ×2 (10:45→21:17)
[2016-08-11] MEDS: CHOLESTYRAMINE/ASPARTAME 4 G/PKT PACKET GT SCH (12:42)
--- NOTE | 2016-08-11 15:00 | NUR ---
Seen by Becca Smith NP with no new order.
[2016-08-11] MEDS: GLYTROL 1,000 ML BAG GT PRN (21:51)
[2016-08-11] MEDS: VALSARTAN 80 MG TABLET GT SCH (22:10)
[2016-08-12] VITALS (7 sets, daily range): BP systolic 106–145; BP diastolic 55–64
[2016-08-12] MEDS: IPRATROPIUM NEB FS 0.5 MG/2.5 ML AMPUL.NEB IH SCH ×4 (01:53→20:06)
[2016-08-12] MEDS: ALBUTEROL FS 2.5 MG/3 ML VIAL.NEB NEB SCH ×4 (01:53→20:06)
[2016-08-12] MEDS: BLOOD SUGAR DIAGNOSTIC 1 EACH STRIP IN SCH ×2 (05:36→17:34)
[2016-08-12] MEDS: PANTOPRAZOLE 40 MG/PACK PACK GT SCH (05:36)
[2016-08-12] MEDS: INSULIN REGULAR, HUMAN 100 UNIT/ML 3 ML VIAL SQ PRN ×2 (05:37→17:35)
[2016-08-12] MEDS: LEVOTHYROXINE SODIUM 25 MCG TABLET PO SCH (05:37)
[2016-08-12] MEDS: LABETALOL HCL (100MG) 100 MG TABLET GT SCH ×2 (08:52→21:00)
[2016-08-12] MEDS: OMEGA GT SCH ×3 (08:52→17:34)
[2016-08-12] MEDS: CARBOXYMETHYLCELLULOSE SODIUM 0.4 ML DROPERETTE EACHEYE SCH (08:52)
[2016-08-12] MEDS: PROSOURCE / PROSTAT (PYXIS) 30 ML UDC GT SCH (08:52)
[2016-08-12] MEDS: MVI/MINERALS LIQUID (CEROVITE) GT SCH (08:52)
[2016-08-12] MEDS: LACTOBACILLUS RHAMNOSUS GG 1 EACH CAP.SPRINK GT SCH (08:52)
[2016-08-12] MEDS: ASCORBIC ACID 500 MG TABLET GT SCH (08:52)
[2016-08-12] MEDS: hydrALAZINE HCL 10 MG TABLET GT PRN ×2 (08:53→17:34)
[2016-08-12] MEDS: HYDROGEL DRESSING 90 GM TUBE TP SCH ×2 (09:00→21:33)
[2016-08-12] MEDS: HYDROGEN PEROXIDE 480 ML BOTTLE TP SCH ×2 (09:00→21:33)
[2016-08-12] MEDS: LEVETIRACETAM SOL (5 ML) 100 MG/ML UDC GT SCH ×2 (09:00→21:32)
[2016-08-12] MEDS: NYSTATIN TOP POWDER 15 GM BOTTLE TP SCH ×2 (09:00→21:34)
[2016-08-12] MEDS: CHOLESTYRAMINE/ASPARTAME 4 G/PKT PACKET GT SCH (12:21)
[2016-08-12] MEDS: GLYTROL 1,000 ML BAG GT PRN (17:35)
--- NOTE | 2016-08-12 18:35 | NUR ---
Inform Reyna, resident's sister that new order obtained from Dr. Monet that patient can be taken to the patio with responsible alliance party/family. Last week patient was up in [facility] and her younger siblings asked if they could take her to the patio, that's why an order was obtain from Dr. Monet. She stated that this is OK with her. She mentioned to pass it to other nurses not to tell her sister Marielena Miller anything such as who is visiting her mother and when, just to say "I don't know". Stated "I don't want her to know when my other sisters come and go because she monitors them, she is like a marine gear keeper, send text messages to everyone, it creates animosity among family. It starts a war." Assured Reyna that this will be be endorsed accordingly.
[2016-08-12] MEDS: VALSARTAN 80 MG TABLET GT SCH (22:54)
[2016-08-13] VITALS (7 sets, daily range): BP systolic 93–132; BP diastolic 48–75
[2016-08-13] MEDS: ALBUTEROL FS 2.5 MG/3 ML VIAL.NEB NEB SCH ×4 (01:46→19:24)
[2016-08-13] MEDS: IPRATROPIUM NEB FS 0.5 MG/2.5 ML AMPUL.NEB IH SCH ×4 (01:46→19:24)
[2016-08-13] MEDS: BLOOD SUGAR DIAGNOSTIC 1 EACH STRIP IN SCH ×2 (05:47→17:37)
[2016-08-13] MEDS: PANTOPRAZOLE 40 MG/PACK PACK GT SCH (05:47)
[2016-08-13] MEDS: LEVOTHYROXINE SODIUM 25 MCG TABLET PO SCH (05:47)
[2016-08-13] MEDS: INSULIN REGULAR, HUMAN 100 UNIT/ML 3 ML VIAL SQ PRN ×2 (05:48→17:35)
[2016-08-13] MEDS: CARBOXYMETHYLCELLULOSE SODIUM 0.4 ML DROPERETTE EACHEYE SCH (08:54)
[2016-08-13] MEDS: ASCORBIC ACID 500 MG TABLET GT SCH (08:55)
[2016-08-13] MEDS: LACTOBACILLUS RHAMNOSUS GG 1 EACH CAP.SPRINK GT SCH (08:55)
[2016-08-13] MEDS: PROSOURCE / PROSTAT (PYXIS) 30 ML UDC GT SCH (08:55)
[2016-08-13] MEDS: LEVETIRACETAM SOL (5 ML) 100 MG/ML UDC GT SCH ×2 (08:55→21:08)
[2016-08-13] MEDS: LABETALOL HCL (100MG) 100 MG TABLET GT SCH ×2 (08:55→21:00)
[2016-08-13] MEDS: OMEGA GT SCH ×3 (08:55→17:35)
[2016-08-13] MEDS: MVI/MINERALS LIQUID (CEROVITE) GT SCH (08:55)
[2016-08-13] MEDS: hydrALAZINE HCL 10 MG TABLET GT PRN ×3 (08:56→17:35)
[2016-08-13] MEDS: HYDROGEL DRESSING 90 GM TUBE TP SCH ×2 (08:56→21:08)
[2016-08-13] MEDS: HYDROGEN PEROXIDE 480 ML BOTTLE TP SCH ×2 (08:56→21:08)
[2016-08-13] MEDS: NYSTATIN TOP POWDER 15 GM BOTTLE TP SCH ×2 (08:56→21:08)
[2016-08-13] MEDS: GLYTROL 1,000 ML BAG GT PRN (12:40)
[2016-08-13] MEDS: CHOLESTYRAMINE/ASPARTAME 4 G/PKT PACKET GT SCH (12:40)
[2016-08-13] MEDS: COD LIVER OIL/ZINC OXIDE 120 GM TUBE TP PRN (12:41)
--- NOTE | 2016-08-13 21:00 | NUR ---
Noted patient with redness on Right lower buttocks area,good perineal care rendered.Obtained treatment for Z guard and Mepilex and wound consult.Daughter Marielena Miller at bedside.will continue to monitor.All needs attended.
[2016-08-13] MEDS: VALSARTAN 80 MG TABLET GT SCH (21:08)
[2016-08-14] VITALS (8 sets, daily range): BP systolic 105–140; BP diastolic 60–70
[2016-08-14] MEDS: IPRATROPIUM NEB FS 0.5 MG/2.5 ML AMPUL.NEB IH SCH ×4 (00:55→19:30)
[2016-08-14] MEDS: ALBUTEROL FS 2.5 MG/3 ML VIAL.NEB NEB SCH ×4 (00:56→19:30)
[2016-08-14] MEDS: BLOOD SUGAR DIAGNOSTIC 1 EACH STRIP IN SCH ×2 (05:48→17:33)
[2016-08-14] MEDS: PANTOPRAZOLE 40 MG/PACK PACK GT SCH (05:48)
[2016-08-14] MEDS: LEVOTHYROXINE SODIUM 25 MCG TABLET PO SCH (05:48)
[2016-08-14] MEDS: GLYTROL 1,000 ML BAG GT PRN (06:05)
[2016-08-14] MEDS: PROSOURCE / PROSTAT (PYXIS) 30 ML UDC GT SCH (08:19)
[2016-08-14] MEDS: LACTOBACILLUS RHAMNOSUS GG 1 EACH CAP.SPRINK GT SCH (08:19)
[2016-08-14] MEDS: LEVETIRACETAM SOL (5 ML) 100 MG/ML UDC GT SCH ×2 (08:19→20:04)
[2016-08-14] MEDS: MVI/MINERALS LIQUID (CEROVITE) GT SCH (08:19)
[2016-08-14] MEDS: OMEGA GT SCH ×3 (08:19→16:19)
[2016-08-14] MEDS: CARBOXYMETHYLCELLULOSE SODIUM 0.4 ML DROPERETTE EACHEYE SCH (08:19)
[2016-08-14] MEDS: LABETALOL HCL (100MG) 100 MG TABLET GT SCH ×2 (08:20→20:04)
[2016-08-14] MEDS: ASCORBIC ACID 500 MG TABLET GT SCH (08:29)
[2016-08-14] MEDS: Z GUARD REMEDY 2 OZ OINT TP SCH ×2 (08:29→20:11)
[2016-08-14] MEDS: HYDROGEN PEROXIDE 480 ML BOTTLE TP SCH ×2 (08:29→20:05)
[2016-08-14] MEDS: NYSTATIN TOP POWDER 15 GM BOTTLE TP SCH ×2 (08:29→20:11)
[2016-08-14] MEDS: HYDROGEL DRESSING 90 GM TUBE TP SCH ×2 (08:29→20:05)
[2016-08-14] MEDS: CHOLESTYRAMINE/ASPARTAME 4 G/PKT PACKET GT SCH (12:00)
[2016-08-14] MEDS: VALSARTAN 80 MG TABLET GT SCH (22:00)
[2016-08-15] VITALS (7 sets, daily range): BP systolic 107–138; BP diastolic 53–68
[2016-08-15] MEDS: ALBUTEROL FS 2.5 MG/3 ML VIAL.NEB NEB SCH ×4 (02:08→19:45)
[2016-08-15] MEDS: IPRATROPIUM NEB FS 0.5 MG/2.5 ML AMPUL.NEB IH SCH ×4 (02:08→19:45)
[2016-08-15] MEDS: PANTOPRAZOLE 40 MG/PACK PACK GT SCH (05:12)
[2016-08-15] MEDS: LEVOTHYROXINE SODIUM 25 MCG TABLET PO SCH (05:13)
[2016-08-15] MEDS: BLOOD SUGAR DIAGNOSTIC 1 EACH STRIP IN SCH ×2 (05:13→18:00)
[2016-08-15] MEDS: OMEGA GT SCH ×3 (09:00→17:07)
[2016-08-15] MEDS: LEVETIRACETAM SOL (5 ML) 100 MG/ML UDC GT SCH ×2 (09:00→21:04)
[2016-08-15] MEDS: HYDROGEL DRESSING 90 GM TUBE TP SCH ×2 (09:00→21:04)
[2016-08-15] MEDS: CARBOXYMETHYLCELLULOSE SODIUM 0.4 ML DROPERETTE EACHEYE SCH (09:00)
[2016-08-15] MEDS: LACTOBACILLUS RHAMNOSUS GG 1 EACH CAP.SPRINK GT SCH (09:00)
[2016-08-15] MEDS: ASCORBIC ACID 500 MG TABLET GT SCH (09:00)
[2016-08-15] MEDS: NYSTATIN TOP POWDER 15 GM BOTTLE TP SCH ×2 (09:00→21:05)
[2016-08-15] MEDS: HYDROGEN PEROXIDE 480 ML BOTTLE TP SCH ×2 (09:00→21:05)
[2016-08-15] MEDS: LABETALOL HCL (100MG) 100 MG TABLET GT SCH ×2 (09:00→21:04)
[2016-08-15] MEDS: Z GUARD REMEDY 2 OZ OINT TP SCH ×2 (09:00→21:05)
[2016-08-15] MEDS: PROSOURCE / PROSTAT (PYXIS) 30 ML UDC GT SCH (09:00)
[2016-08-15] MEDS: MVI/MINERALS LIQUID (CEROVITE) GT SCH (09:00)
--- NOTE | 2016-08-15 11:22 | NUR ---
WOUND CARE CONSULT: PT SEEN FOR RT BUTTOCK REDNESS. PT NOTED TO HAVE PERIANAL EXCORIATION, RED RASH TO BUTTOCKS WITH SOME PEELING SKIN AND SACRAL STAGE II ULCER, PRESENT ON ADMISSION. SACRAL ULCER MEASURES 1.5CM X 1.2CM X 0.1CM WITH RED AND PINK COLOR, SCANT PINK DRAINAGE, NO ODOR. RECOMMEND CONTINUE PRESENT TREATMENT FOR SACRAL ULCER. RECOMMEND LOTRIMIN CREAM FOLLOWED BY DESITIN CREAM FOR BUTTOCK RASH AND RECOMMEND DESITIN CREAM FOR PERIANAL EXCORIATION. PT NOTED TO HAVE LOOSE STOOL. SKIN TO BE KEPT CLEAN AND DRY. ALL RECOMMENDATIONS DISCUSSED WITH NURSING STAFF. PT ON FIRST STEP MATTRESS. WILL SEE PRMandie. IN AGREEMENT WITH PLAN OF CARE.
[2016-08-15] MEDS: CHOLESTYRAMINE/ASPARTAME 4 G/PKT PACKET GT SCH (12:00)
[2016-08-15] MEDS: INSULIN REGULAR, HUMAN 100 UNIT/ML 3 ML VIAL SQ PRN (19:04)
[2016-08-15] MEDS: VALSARTAN 80 MG TABLET GT SCH (21:05)
[2016-08-15] MEDS: GLYTROL 1,000 ML BAG GT PRN (21:05)
[2016-08-16] VITALS (7 sets, daily range): BP systolic 99–110; BP diastolic 54–66
[2016-08-16] MEDS: IPRATROPIUM NEB FS 0.5 MG/2.5 ML AMPUL.NEB IH SCH ×4 (01:14→21:00)
[2016-08-16] MEDS: ALBUTEROL FS 2.5 MG/3 ML VIAL.NEB NEB SCH ×4 (01:14→21:00)
[2016-08-16] MEDS: PANTOPRAZOLE 40 MG/PACK PACK GT SCH (05:33)
[2016-08-16] MEDS: BLOOD SUGAR DIAGNOSTIC 1 EACH STRIP IN SCH ×2 (05:33→18:19)
[2016-08-16] MEDS: LEVOTHYROXINE SODIUM 25 MCG TABLET PO SCH (05:33)
--- NOTE | 2016-08-16 09:40 | NUR ---
Seen by Dr Monet with no new order.
[2016-08-16] MEDS: OMEGA GT SCH ×3 (09:56→17:49)
[2016-08-16] MEDS: PROSOURCE / PROSTAT (PYXIS) 30 ML UDC GT SCH (09:56)
[2016-08-16] MEDS: CARBOXYMETHYLCELLULOSE SODIUM 0.4 ML DROPERETTE EACHEYE SCH (09:56)
[2016-08-16] MEDS: MVI/MINERALS LIQUID (CEROVITE) GT SCH (09:56)
[2016-08-16] MEDS: LEVETIRACETAM SOL (5 ML) 100 MG/ML UDC GT SCH ×2 (09:56→20:59)
[2016-08-16] MEDS: LACTOBACILLUS RHAMNOSUS GG 1 EACH CAP.SPRINK GT SCH (09:56)
[2016-08-16] MEDS: NYSTATIN TOP POWDER 15 GM BOTTLE TP SCH ×2 (09:57→21:00)
[2016-08-16] MEDS: HYDROGEL DRESSING 90 GM TUBE TP SCH ×2 (09:57→20:59)
[2016-08-16] MEDS: Z GUARD REMEDY 2 OZ OINT TP SCH ×2 (09:57→21:01)
[2016-08-16] MEDS: ASCORBIC ACID 500 MG TABLET GT SCH (09:57)
[2016-08-16] MEDS: HYDROGEN PEROXIDE 480 ML BOTTLE TP SCH ×2 (09:57→21:00)
[2016-08-16] MEDS: LABETALOL HCL (100MG) 100 MG TABLET GT SCH ×2 (09:57→20:59)
[2016-08-16] MEDS: CHOLESTYRAMINE/ASPARTAME 4 G/PKT PACKET GT SCH (13:00)
[2016-08-16] MEDS ORDERED: COD LIVER OIL/ZINC OXIDE 120 GM TUBE TP PRN ×2 (16:00→16:30)
[2016-08-16] MEDS: INSULIN REGULAR, HUMAN 100 UNIT/ML 3 ML VIAL SQ PRN (18:19)
[2016-08-16] MEDS: COD LIVER OIL/ZINC OXIDE 120 GM TUBE TP SCH ×2 (21:00)
[2016-08-16] MEDS: CLOTRIMAZOLE 1% 15 GM TUBE TP SCH (21:00)
[2016-08-16] MEDS: VALSARTAN 80 MG TABLET GT SCH (21:34)
[2016-08-17] VITALS (7 sets, daily range): BP systolic 108–120; BP diastolic 59–75
[2016-08-17] MEDS: ALBUTEROL FS 2.5 MG/3 ML VIAL.NEB NEB SCH ×4 (01:44→19:51)
[2016-08-17] MEDS: IPRATROPIUM NEB FS 0.5 MG/2.5 ML AMPUL.NEB IH SCH ×4 (01:44→19:51)
[2016-08-17] MEDS: PANTOPRAZOLE 40 MG/PACK PACK GT SCH (05:36)
[2016-08-17] MEDS: BLOOD SUGAR DIAGNOSTIC 1 EACH STRIP IN SCH ×2 (05:36→17:41)
[2016-08-17] MEDS: LEVOTHYROXINE SODIUM 25 MCG TABLET PO SCH (05:36)
[2016-08-17] MEDS: LABETALOL HCL (100MG) 100 MG TABLET GT SCH ×2 (09:00→20:52)
[2016-08-17] MEDS: LEVETIRACETAM SOL (5 ML) 100 MG/ML UDC GT SCH ×2 (09:19→20:51)
[2016-08-17] MEDS: CARBOXYMETHYLCELLULOSE SODIUM 0.4 ML DROPERETTE EACHEYE SCH (09:19)
[2016-08-17] MEDS: OMEGA GT SCH ×3 (09:19→17:41)
[2016-08-17] MEDS: PROSOURCE / PROSTAT (PYXIS) 30 ML UDC GT SCH (09:19)
[2016-08-17] MEDS: LACTOBACILLUS RHAMNOSUS GG 1 EACH CAP.SPRINK GT SCH (09:19)
[2016-08-17] MEDS: MVI/MINERALS LIQUID (CEROVITE) GT SCH (09:19)
[2016-08-17] MEDS: ASCORBIC ACID 500 MG TABLET GT SCH (09:20)
[2016-08-17] MEDS: HYDROGEL DRESSING 90 GM TUBE TP SCH ×2 (09:20→20:53)
[2016-08-17] MEDS: COD LIVER OIL/ZINC OXIDE 120 GM TUBE TP SCH ×4 (09:21→20:53)
[2016-08-17] MEDS: HYDROGEN PEROXIDE 480 ML BOTTLE TP SCH ×2 (09:21→20:54)
[2016-08-17] MEDS: NYSTATIN TOP POWDER 15 GM BOTTLE TP SCH ×2 (09:21→20:54)
[2016-08-17] MEDS: CLOTRIMAZOLE 1% 15 GM TUBE TP SCH ×2 (09:21→20:54)
[2016-08-17] MEDS: Z GUARD REMEDY 2 OZ OINT TP SCH ×2 (09:21→20:55)
--- NOTE | 2016-08-17 09:45 | NUR ---
KATARINAO Boris, sub-acute manager nursing home Rosalina Joshi, and Dr. Ramirez met in order to discuss DPOA's (resident's daughter) wishes to stop treatment for the resident. It was stated that DPOA wants resident's care team to stop treatment but wants to withhold this from her sisters. Boris consulted with his legal team and it was reported that the DPOA does have the right to stop everything and that the DPOA has the authority to restrict any disclosure of information and retract participants in the resident's care. Dr. Ramirez mentioned that the rest of the three sister's are very involved in the resident's care and legal team reported that legally, doctor's are given immunity following a DPOA's wishes. Dr. Felipe stated that only option for resident is to place her under hospice care. KATARINAO in agreement. Dr. Ramirez will communicate with the resident's DPOA to see how she wants to proceed.
[2016-08-17] MEDS: CHOLESTYRAMINE/ASPARTAME 4 G/PKT PACKET GT SCH (12:30)
[2016-08-17] MEDS: GLYTROL 1,000 ML BAG GT PRN (17:00)
--- NOTE | 2016-08-17 17:58 | NUR ---
Seen and examined by Becca Smith NP for Dr. Monet, sexual assault counselor, NNO given.
[2016-08-17] MEDS: VALSARTAN 80 MG TABLET GT SCH (22:00)
[2016-08-18] VITALS (7 sets, daily range): BP systolic 105–131; BP diastolic 49–65
[2016-08-18] MEDS: IPRATROPIUM NEB FS 0.5 MG/2.5 ML AMPUL.NEB IH SCH ×4 (01:09→20:30)
[2016-08-18] MEDS: ALBUTEROL FS 2.5 MG/3 ML VIAL.NEB NEB SCH ×4 (01:09→20:30)
[2016-08-18] MEDS: LEVOTHYROXINE SODIUM 25 MCG TABLET PO SCH (06:04)
[2016-08-18] MEDS: INSULIN REGULAR, HUMAN 100 UNIT/ML 3 ML VIAL SQ PRN (06:04)
[2016-08-18] MEDS: PANTOPRAZOLE 40 MG/PACK PACK GT SCH (06:04)
[2016-08-18] MEDS: BLOOD SUGAR DIAGNOSTIC 1 EACH STRIP IN SCH ×2 (06:04→17:33)
[2016-08-18] MEDS: HYDROGEL DRESSING 90 GM TUBE TP SCH ×2 (09:00→21:57)
[2016-08-18] MEDS: NYSTATIN TOP POWDER 15 GM BOTTLE TP SCH ×2 (09:00→21:57)
[2016-08-18] MEDS: ASCORBIC ACID 500 MG TABLET GT SCH (09:00)
[2016-08-18] MEDS: CARBOXYMETHYLCELLULOSE SODIUM 0.4 ML DROPERETTE EACHEYE SCH (09:00)
[2016-08-18] MEDS: LABETALOL HCL (100MG) 100 MG TABLET GT SCH ×2 (09:00→21:00)
[2016-08-18] MEDS: CLOTRIMAZOLE 1% 15 GM TUBE TP SCH ×2 (09:00→21:57)
[2016-08-18] MEDS: Z GUARD REMEDY 2 OZ OINT TP SCH ×2 (09:00→21:58)
[2016-08-18] MEDS: COD LIVER OIL/ZINC OXIDE 120 GM TUBE TP SCH ×4 (09:00→21:57)
[2016-08-18] MEDS: HYDROGEN PEROXIDE 480 ML BOTTLE TP SCH ×2 (09:00→21:57)
[2016-08-18] MEDS: PROSOURCE / PROSTAT (PYXIS) 30 ML UDC GT SCH (09:00)
[2016-08-18] MEDS: LACTOBACILLUS RHAMNOSUS GG 1 EACH CAP.SPRINK GT SCH (09:00)
[2016-08-18] MEDS: OMEGA GT SCH ×3 (09:00→17:33)
[2016-08-18] MEDS: MVI/MINERALS LIQUID (CEROVITE) GT SCH (09:00)
[2016-08-18] MEDS: LEVETIRACETAM SOL (5 ML) 100 MG/ML UDC GT SCH ×2 (09:00→21:57)
[2016-08-18] MEDS: CHOLESTYRAMINE/ASPARTAME 4 G/PKT PACKET GT SCH (12:00)
[2016-08-18] MEDS: GLYTROL 1,000 ML BAG GT PRN (14:06)
--- NOTE | 2016-08-18 15:10 | NUR ---
Called the office of the [facility] ([phone]) as there are some questions regarding validity of DPOA and [employer] Directive Signatures and motives of daughter's (DPOAs) intentions regarding plan of care. CNO and green material value added assessor are in agreement with the plan. SW left a message with her contact information as it went to a voicemail box after ringing for several times.
--- NOTE | 2016-08-18 18:12 | NUR ---
Seen and examined by Dr. Ramirez with NNO
[2016-08-18] MEDS: VALSARTAN 80 MG TABLET GT SCH (22:40)
[2016-08-19] VITALS (8 sets, daily range): BP systolic 105–131; BP diastolic 54–87
[2016-08-19] MEDS: IPRATROPIUM NEB FS 0.5 MG/2.5 ML AMPUL.NEB IH SCH ×4 (01:28→20:10)
[2016-08-19] MEDS: ALBUTEROL FS 2.5 MG/3 ML VIAL.NEB NEB SCH ×4 (01:28→20:10)
[2016-08-19] MEDS: INSULIN REGULAR, HUMAN 100 UNIT/ML 3 ML VIAL SQ PRN (06:28)
[2016-08-19] MEDS: BLOOD SUGAR DIAGNOSTIC 1 EACH STRIP IN SCH ×2 (06:28→17:40)
[2016-08-19] MEDS: PANTOPRAZOLE 40 MG/PACK PACK GT SCH (06:28)
[2016-08-19] MEDS: LEVOTHYROXINE SODIUM 25 MCG TABLET PO SCH (06:28)
[2016-08-19] MEDS: LACTOBACILLUS RHAMNOSUS GG 1 EACH CAP.SPRINK GT SCH (09:00)
[2016-08-19] MEDS: PROSOURCE / PROSTAT (PYXIS) 30 ML UDC GT SCH (09:00)
[2016-08-19] MEDS: ASCORBIC ACID 500 MG TABLET GT SCH (09:00)
[2016-08-19] MEDS: Z GUARD REMEDY 2 OZ OINT TP SCH ×2 (09:00→21:33)
[2016-08-19] MEDS: LEVETIRACETAM SOL (5 ML) 100 MG/ML UDC GT SCH ×2 (09:00→21:32)
[2016-08-19] MEDS: HYDROGEN PEROXIDE 480 ML BOTTLE TP SCH ×2 (09:00→21:33)
[2016-08-19] MEDS: HYDROGEL DRESSING 90 GM TUBE TP SCH ×2 (09:00→21:32)
[2016-08-19] MEDS: OMEGA GT SCH ×3 (09:00→17:25)
[2016-08-19] MEDS: NYSTATIN TOP POWDER 15 GM BOTTLE TP SCH ×2 (09:00→21:33)
[2016-08-19] MEDS: CARBOXYMETHYLCELLULOSE SODIUM 0.4 ML DROPERETTE EACHEYE SCH (09:00)
[2016-08-19] MEDS: CLOTRIMAZOLE 1% 15 GM TUBE TP SCH ×2 (09:00→21:33)
[2016-08-19] MEDS: LABETALOL HCL (100MG) 100 MG TABLET GT SCH ×2 (09:00→21:32)
[2016-08-19] MEDS: COD LIVER OIL/ZINC OXIDE 120 GM TUBE TP SCH ×4 (09:00→21:33)
[2016-08-19] MEDS: MVI/MINERALS LIQUID (CEROVITE) GT SCH (09:00)
--- NOTE | 2016-08-19 11:43 | NUR ---
[facility] ([phone]) at 9:30AM and left another message. Tried again at 11:40am but no answer. SW will attempt to contact again.
[2016-08-19] MEDS: CHOLESTYRAMINE/ASPARTAME 4 G/PKT PACKET GT SCH (12:48)
--- NOTE | 2016-08-19 14:30 | NUR ---
INTERDISCIPLINARY PLAN OF CARE CONFERENCE was held today. Daughter Dyana attended via telephone conference. Dr. Monet and the interdisciplinary team reviewed the current plan of care in detail. New orders were reviewed. Resident has an order to be up at least 1x/week and is able to go outside to the patio when family visits. Dtr Dyana stated that resident's underarms are still a little bit red and medications will be continued. Resident is stable and no other changes are noted.
--- NOTE | 2016-08-19 14:36 | NUR ---
Spoke to Marley from the group home care [facility] ([phone]). JOSSE informed her that resident has a DPOA that is wishing to end treatment however, siblings have not been in agreement in the past. DPOA does not want them to be informed of her wishes and stated that siblings have different views regarding the plan of care for the resident. Per Marley, there is nothing that the [facility] office can do and stated that if siblings do not agree with the decisions that the DPOA is making, that they can dispute it in court. virtual classroom manager was notified. Addendum: 08/22/16 at 0845 by LUIS LOAIZA note entered by JOSSE Vieira
[2016-08-19] MEDS: VALSARTAN 80 MG TABLET GT SCH (22:00)
[2016-08-20] VITALS (8 sets, daily range): BP systolic 91–143; BP diastolic 45–72
[2016-08-20] MEDS: ALBUTEROL FS 2.5 MG/3 ML VIAL.NEB NEB SCH ×4 (00:50→19:07)
[2016-08-20] MEDS: IPRATROPIUM NEB FS 0.5 MG/2.5 ML AMPUL.NEB IH SCH ×4 (00:50→19:07)
[2016-08-20] MEDS: LEVOTHYROXINE SODIUM 88 MCG TABLET PO SCH (06:04)
[2016-08-20] MEDS: PANTOPRAZOLE 40 MG/PACK PACK GT SCH (06:04)
[2016-08-20] MEDS: BLOOD SUGAR DIAGNOSTIC 1 EACH STRIP IN SCH ×2 (06:04→17:49)
[2016-08-20] MEDS: INSULIN REGULAR, HUMAN 100 UNIT/ML 3 ML VIAL SQ PRN (06:04)
[2016-08-20] MEDS: GLYTROL 1,000 ML BAG GT PRN (06:16)
[2016-08-20] MEDS: OMEGA GT SCH ×3 (09:14→16:44)
[2016-08-20] MEDS: LACTOBACILLUS RHAMNOSUS GG 1 EACH CAP.SPRINK GT SCH (09:14)
[2016-08-20] MEDS: LEVETIRACETAM SOL (5 ML) 100 MG/ML UDC GT SCH ×2 (09:14→21:13)
[2016-08-20] MEDS: CARBOXYMETHYLCELLULOSE SODIUM 0.4 ML DROPERETTE EACHEYE SCH (09:14)
[2016-08-20] MEDS: PROSOURCE / PROSTAT (PYXIS) 30 ML UDC GT SCH (09:14)
[2016-08-20] MEDS: MVI/MINERALS LIQUID (CEROVITE) GT SCH (09:14)
[2016-08-20] MEDS: LABETALOL HCL (100MG) 100 MG TABLET GT SCH ×2 (09:15→21:13)
[2016-08-20] MEDS: HYDROGEL DRESSING 90 GM TUBE TP SCH ×2 (09:15→21:13)
[2016-08-20] MEDS: ASCORBIC ACID 500 MG TABLET GT SCH (09:15)
[2016-08-20] MEDS: COD LIVER OIL/ZINC OXIDE 120 GM TUBE TP SCH ×4 (09:15→21:13)
[2016-08-20] MEDS: HYDROGEN PEROXIDE 480 ML BOTTLE TP SCH ×2 (09:15→21:13)
[2016-08-20] MEDS: NYSTATIN TOP POWDER 15 GM BOTTLE TP SCH (09:16)
[2016-08-20] MEDS: CLOTRIMAZOLE 1% 15 GM TUBE TP SCH ×2 (09:16→21:14)
[2016-08-20] MEDS: CHOLESTYRAMINE/ASPARTAME 4 G/PKT PACKET GT SCH (12:00)
[2016-08-20] MEDS: VALSARTAN 80 MG TABLET GT SCH (22:00)
[2016-08-21] VITALS (7 sets, daily range): BP systolic 120–138; BP diastolic 57–82
[2016-08-21] MEDS: IPRATROPIUM NEB FS 0.5 MG/2.5 ML AMPUL.NEB IH SCH ×4 (01:15→19:30)
[2016-08-21] MEDS: ALBUTEROL FS 2.5 MG/3 ML VIAL.NEB NEB SCH ×4 (01:16→20:55)
[2016-08-21] MEDS: PANTOPRAZOLE 40 MG/PACK PACK GT SCH (05:42)
[2016-08-21] MEDS: BLOOD SUGAR DIAGNOSTIC 1 EACH STRIP IN SCH ×2 (05:42→17:41)
[2016-08-21] MEDS: GLYTROL 1,000 ML BAG GT PRN (05:42)
[2016-08-21] MEDS: LEVOTHYROXINE SODIUM 88 MCG TABLET PO SCH (05:42)
[2016-08-21] MEDS: LEVETIRACETAM SOL (5 ML) 100 MG/ML UDC GT SCH ×2 (09:11→20:07)
[2016-08-21] MEDS: HYDROGEN PEROXIDE 480 ML BOTTLE TP SCH ×2 (09:11→20:08)
[2016-08-21] MEDS: CARBOXYMETHYLCELLULOSE SODIUM 0.4 ML DROPERETTE EACHEYE SCH (09:11)
[2016-08-21] MEDS: PROSOURCE / PROSTAT (PYXIS) 30 ML UDC GT SCH (09:11)
[2016-08-21] MEDS: ASCORBIC ACID 500 MG TABLET GT SCH (09:11)
[2016-08-21] MEDS: HYDROGEL DRESSING 90 GM TUBE TP SCH ×2 (09:11→20:08)
[2016-08-21] MEDS: MVI/MINERALS LIQUID (CEROVITE) GT SCH (09:11)
[2016-08-21] MEDS: COD LIVER OIL/ZINC OXIDE 120 GM TUBE TP SCH ×4 (09:11→20:08)
[2016-08-21] MEDS: LABETALOL HCL (100MG) 100 MG TABLET GT SCH ×2 (09:11→20:07)
[2016-08-21] MEDS: OMEGA GT SCH ×3 (09:11→17:41)
[2016-08-21] MEDS: LACTOBACILLUS RHAMNOSUS GG 1 EACH CAP.SPRINK GT SCH (09:11)
[2016-08-21] MEDS: CLOTRIMAZOLE 1% 15 GM TUBE TP SCH ×2 (09:12→20:08)
[2016-08-21] MEDS: CHOLESTYRAMINE/ASPARTAME 4 G/PKT PACKET GT SCH (12:00)
[2016-08-21] MEDS: VALSARTAN 80 MG TABLET GT SCH (21:13)
[2016-08-22] MEDS: ALBUTEROL FS 2.5 MG/3 ML VIAL.NEB NEB SCH ×4 (00:24→20:21)
[2016-08-22] MEDS: IPRATROPIUM NEB FS 0.5 MG/2.5 ML AMPUL.NEB IH SCH ×4 (00:24→20:21)
[2016-08-22 01:00] VITALS: BP 117/73
[2016-08-22] MEDS: PANTOPRAZOLE 40 MG/PACK PACK GT SCH (05:57)
[2016-08-22] MEDS: BLOOD SUGAR DIAGNOSTIC 1 EACH STRIP IN SCH ×2 (05:57→18:20)
[2016-08-22] MEDS: LEVOTHYROXINE SODIUM 88 MCG TABLET PO SCH (05:57)
[2016-08-22 06:53] VITALS: BP 121/71
[2016-08-22 08:09] VITALS: BP 139/73
[2016-08-22] MEDS: CLOTRIMAZOLE 1% 15 GM TUBE TP SCH ×2 (09:42→21:03)
[2016-08-22] MEDS: COD LIVER OIL/ZINC OXIDE 120 GM TUBE TP SCH ×4 (09:42→21:03)
[2016-08-22] MEDS: LABETALOL HCL (100MG) 100 MG TABLET GT SCH ×2 (09:42→21:03)
[2016-08-22] MEDS: OMEGA GT SCH ×3 (09:42→17:00)
[2016-08-22] MEDS: PROSOURCE / PROSTAT (PYXIS) 30 ML UDC GT SCH (09:42)
[2016-08-22] MEDS: HYDROGEL DRESSING 90 GM TUBE TP SCH ×2 (09:42→21:03)
[2016-08-22] MEDS: ASCORBIC ACID 500 MG TABLET GT SCH (09:42)
[2016-08-22] MEDS: HYDROGEN PEROXIDE 480 ML BOTTLE TP SCH ×2 (09:42→21:03)
[2016-08-22] MEDS: LEVETIRACETAM SOL (5 ML) 100 MG/ML UDC GT SCH ×2 (09:42→21:02)
[2016-08-22] MEDS: MVI/MINERALS LIQUID (CEROVITE) GT SCH (09:42)
[2016-08-22] MEDS: CARBOXYMETHYLCELLULOSE SODIUM 0.4 ML DROPERETTE EACHEYE SCH (09:42)
[2016-08-22] MEDS: LACTOBACILLUS RHAMNOSUS GG 1 EACH CAP.SPRINK GT SCH (09:42)
[2016-08-22] MEDS: CHOLESTYRAMINE/ASPARTAME 4 G/PKT PACKET GT SCH (12:00)
[2016-08-22 17:10] VITALS: BP 107/68
[2016-08-22] MEDS: INSULIN REGULAR, HUMAN 100 UNIT/ML 3 ML VIAL SQ PRN (18:20)
[2016-08-22 20:09] VITALS: BP 129/81
[2016-08-22] MEDS: VALSARTAN 80 MG TABLET GT SCH (21:03)
[2016-08-22 21:19] VITALS: BP 129/81
[2016-08-23] VITALS (7 sets, daily range): BP systolic 106–125; BP diastolic 56–78
[2016-08-23] MEDS: IPRATROPIUM NEB FS 0.5 MG/2.5 ML AMPUL.NEB IH SCH ×4 (02:21→20:03)
[2016-08-23] MEDS: ALBUTEROL FS 2.5 MG/3 ML VIAL.NEB NEB SCH ×4 (02:21→20:03)
[2016-08-23] MEDS: LEVOTHYROXINE SODIUM 88 MCG TABLET PO SCH (05:39)
[2016-08-23] MEDS: PANTOPRAZOLE 40 MG/PACK PACK GT SCH (05:39)
[2016-08-23] MEDS: BLOOD SUGAR DIAGNOSTIC 1 EACH STRIP IN SCH ×2 (05:39→18:34)
[2016-08-23] MEDS: CARBOXYMETHYLCELLULOSE SODIUM 0.4 ML DROPERETTE EACHEYE SCH (09:48)
[2016-08-23] MEDS: LACTOBACILLUS RHAMNOSUS GG 1 EACH CAP.SPRINK GT SCH (09:48)
[2016-08-23] MEDS: LEVETIRACETAM SOL (5 ML) 100 MG/ML UDC GT SCH ×2 (09:48→20:54)
[2016-08-23] MEDS: MVI/MINERALS LIQUID (CEROVITE) GT SCH (09:48)
[2016-08-23] MEDS: PROSOURCE / PROSTAT (PYXIS) 30 ML UDC GT SCH (09:48)
[2016-08-23] MEDS: OMEGA GT SCH ×3 (09:48→17:00)
[2016-08-23] MEDS: HYDROGEL DRESSING 90 GM TUBE TP SCH ×2 (09:49→20:55)
[2016-08-23] MEDS: ASCORBIC ACID 500 MG TABLET GT SCH (09:49)
[2016-08-23] MEDS: COD LIVER OIL/ZINC OXIDE 120 GM TUBE TP SCH ×4 (09:49→20:55)
[2016-08-23] MEDS: LABETALOL HCL (100MG) 100 MG TABLET GT SCH ×2 (09:49→20:55)
[2016-08-23] MEDS: HYDROGEN PEROXIDE 480 ML BOTTLE TP SCH ×2 (09:49→20:55)
[2016-08-23] MEDS: CLOTRIMAZOLE 1% 15 GM TUBE TP SCH ×2 (09:49→20:55)
--- NOTE | 2016-08-23 10:10 | NUR ---
Seen and examined by Dr Monet with no new order.
[2016-08-23] MEDS: CHOLESTYRAMINE/ASPARTAME 4 G/PKT PACKET GT SCH (12:46)
[2016-08-23] MEDS: INSULIN REGULAR, HUMAN 100 UNIT/ML 3 ML VIAL SQ PRN (18:35)
[2016-08-23] MEDS: VALSARTAN 80 MG TABLET GT SCH (20:54)
[2016-08-24] VITALS (7 sets, daily range): BP systolic 106–120; BP diastolic 50–76
[2016-08-24] MEDS: IPRATROPIUM NEB FS 0.5 MG/2.5 ML AMPUL.NEB IH SCH ×4 (01:30→19:30)
[2016-08-24] MEDS: ALBUTEROL FS 2.5 MG/3 ML VIAL.NEB NEB SCH ×4 (01:30→19:30)
[2016-08-24] MEDS: PANTOPRAZOLE 40 MG/PACK PACK GT SCH (05:50)
[2016-08-24] MEDS: LEVOTHYROXINE SODIUM 88 MCG TABLET PO SCH (05:50)
[2016-08-24] MEDS: BLOOD SUGAR DIAGNOSTIC 1 EACH STRIP IN SCH ×2 (05:51→17:58)
[2016-08-24] MEDS: CARBOXYMETHYLCELLULOSE SODIUM 0.4 ML DROPERETTE EACHEYE SCH (09:00)
[2016-08-24] MEDS: MVI/MINERALS LIQUID (CEROVITE) GT SCH (09:00)
[2016-08-24] MEDS: PROSOURCE / PROSTAT (PYXIS) 30 ML UDC GT SCH (09:00)
[2016-08-24] MEDS: LACTOBACILLUS RHAMNOSUS GG 1 EACH CAP.SPRINK GT SCH (09:00)
[2016-08-24] MEDS: LABETALOL HCL (100MG) 100 MG TABLET GT SCH ×2 (09:00→21:21)
[2016-08-24] MEDS: CLOTRIMAZOLE 1% 15 GM TUBE TP SCH ×2 (09:00→21:22)
[2016-08-24] MEDS: COD LIVER OIL/ZINC OXIDE 120 GM TUBE TP SCH ×4 (09:00→21:22)
[2016-08-24] MEDS: ASCORBIC ACID 500 MG TABLET GT SCH (09:00)
[2016-08-24] MEDS: OMEGA GT SCH ×3 (09:00→17:58)
[2016-08-24] MEDS: LEVETIRACETAM SOL (5 ML) 100 MG/ML UDC GT SCH ×2 (09:00→21:21)
[2016-08-24] MEDS: HYDROGEL DRESSING 90 GM TUBE TP SCH ×2 (09:00→21:21)
[2016-08-24] MEDS: HYDROGEN PEROXIDE 480 ML BOTTLE TP SCH ×2 (09:00→21:22)
[2016-08-24] MEDS: CHOLESTYRAMINE/ASPARTAME 4 G/PKT PACKET GT SCH (12:00)
[2016-08-24] MEDS: VALSARTAN 80 MG TABLET GT SCH (21:22)
[2016-08-24] MEDS: GLYTROL 1,000 ML BAG GT PRN (21:40)
[2016-08-25] VITALS (8 sets, daily range): BP systolic 91–126; BP diastolic 51–72
[2016-08-25] MEDS: IPRATROPIUM NEB FS 0.5 MG/2.5 ML AMPUL.NEB IH SCH ×4 (01:40→19:50)
[2016-08-25] MEDS: ALBUTEROL FS 2.5 MG/3 ML VIAL.NEB NEB SCH ×4 (01:40→19:50)
[2016-08-25] MEDS: PANTOPRAZOLE 40 MG/PACK PACK GT SCH (05:11)
[2016-08-25] MEDS: BLOOD SUGAR DIAGNOSTIC 1 EACH STRIP IN SCH ×2 (05:11→17:22)
[2016-08-25] MEDS: INSULIN REGULAR, HUMAN 100 UNIT/ML 3 ML VIAL SQ PRN (05:11)
[2016-08-25] MEDS: LEVOTHYROXINE SODIUM 88 MCG TABLET PO SCH (05:11)
[2016-08-25] MEDS: LABETALOL HCL (100MG) 100 MG TABLET GT SCH ×2 (09:00→20:28)
[2016-08-25] MEDS: MVI/MINERALS LIQUID (CEROVITE) GT SCH (09:03)
[2016-08-25] MEDS: LEVETIRACETAM SOL (5 ML) 100 MG/ML UDC GT SCH ×2 (09:03→20:28)
[2016-08-25] MEDS: CARBOXYMETHYLCELLULOSE SODIUM 0.4 ML DROPERETTE EACHEYE SCH (09:03)
[2016-08-25] MEDS: PROSOURCE / PROSTAT (PYXIS) 30 ML UDC GT SCH (09:03)
[2016-08-25] MEDS: OMEGA GT SCH ×3 (09:03→16:27)
[2016-08-25] MEDS: LACTOBACILLUS RHAMNOSUS GG 1 EACH CAP.SPRINK GT SCH (09:03)
[2016-08-25] MEDS: COD LIVER OIL/ZINC OXIDE 120 GM TUBE TP SCH ×4 (09:04→20:29)
[2016-08-25] MEDS: HYDROGEL DRESSING 90 GM TUBE TP SCH ×2 (09:04→20:29)
[2016-08-25] MEDS: HYDROGEN PEROXIDE 480 ML BOTTLE TP SCH ×2 (09:04→20:29)
[2016-08-25] MEDS: CLOTRIMAZOLE 1% 15 GM TUBE TP SCH ×2 (09:04→20:29)
[2016-08-25] MEDS: ASCORBIC ACID 500 MG TABLET GT SCH (09:04)
[2016-08-25] MEDS: CHOLESTYRAMINE/ASPARTAME 4 G/PKT PACKET GT SCH (12:10)
[2016-08-25] MEDS: GLYTROL 1,000 ML BAG GT PRN (14:55)
[2016-08-25] MEDS: VALSARTAN 80 MG TABLET GT SCH (21:15)
[2016-08-26] VITALS (8 sets, daily range): BP systolic 95–118; BP diastolic 45–70
[2016-08-26] MEDS: IPRATROPIUM NEB FS 0.5 MG/2.5 ML AMPUL.NEB IH SCH ×4 (01:21→19:37)
[2016-08-26] MEDS: ALBUTEROL FS 2.5 MG/3 ML VIAL.NEB NEB SCH ×4 (01:21→19:37)
[2016-08-26] MEDS: PANTOPRAZOLE 40 MG/PACK PACK GT SCH (05:18)
[2016-08-26] MEDS: LEVOTHYROXINE SODIUM 88 MCG TABLET PO SCH (05:18)
[2016-08-26] MEDS: BLOOD SUGAR DIAGNOSTIC 1 EACH STRIP IN SCH ×2 (05:18→17:14)
[2016-08-26] MEDS: LABETALOL HCL (100MG) 100 MG TABLET GT SCH ×2 (09:00→20:19)
[2016-08-26] MEDS: MVI/MINERALS LIQUID (CEROVITE) GT SCH (09:04)
[2016-08-26] MEDS: PROSOURCE / PROSTAT (PYXIS) 30 ML UDC GT SCH (09:04)
[2016-08-26] MEDS: LEVETIRACETAM SOL (5 ML) 100 MG/ML UDC GT SCH ×2 (09:04→20:18)
[2016-08-26] MEDS: CARBOXYMETHYLCELLULOSE SODIUM 0.4 ML DROPERETTE EACHEYE SCH (09:04)
[2016-08-26] MEDS: LACTOBACILLUS RHAMNOSUS GG 1 EACH CAP.SPRINK GT SCH (09:04)
[2016-08-26] MEDS: OMEGA GT SCH ×3 (09:04→17:14)
[2016-08-26] MEDS: ASCORBIC ACID 500 MG TABLET GT SCH (09:05)
[2016-08-26] MEDS: HYDROGEL DRESSING 90 GM TUBE TP SCH ×2 (09:05→20:19)
[2016-08-26] MEDS: HYDROGEN PEROXIDE 480 ML BOTTLE TP SCH ×2 (09:05→20:19)
[2016-08-26] MEDS: COD LIVER OIL/ZINC OXIDE 120 GM TUBE TP SCH ×4 (09:05→20:19)
[2016-08-26] MEDS: CLOTRIMAZOLE 1% 15 GM TUBE TP SCH ×2 (09:05→20:19)
[2016-08-26] MEDS: GLYTROL 1,000 ML BAG GT PRN (11:13)
[2016-08-26] MEDS: CHOLESTYRAMINE/ASPARTAME 4 G/PKT PACKET GT SCH (12:06)
[2016-08-26] MEDS: VALSARTAN 80 MG TABLET GT SCH (21:52)
[2016-08-27] VITALS (8 sets, daily range): BP systolic 94–124; BP diastolic 42–67
[2016-08-27] MEDS: ALBUTEROL FS 2.5 MG/3 ML VIAL.NEB NEB SCH ×4 (01:30→19:47)
[2016-08-27] MEDS: IPRATROPIUM NEB FS 0.5 MG/2.5 ML AMPUL.NEB IH SCH ×4 (01:30→19:47)
[2016-08-27] MEDS: INSULIN REGULAR, HUMAN 100 UNIT/ML 3 ML VIAL SQ PRN (05:28)
[2016-08-27] MEDS: PANTOPRAZOLE 40 MG/PACK PACK GT SCH (05:28)
[2016-08-27] MEDS: GLYTROL 1,000 ML BAG GT PRN (05:28)
[2016-08-27] MEDS: BLOOD SUGAR DIAGNOSTIC 1 EACH STRIP IN SCH ×2 (05:28→18:09)
[2016-08-27] MEDS: LEVOTHYROXINE SODIUM 88 MCG TABLET PO SCH (05:28)
[2016-08-27] MEDS: LEVETIRACETAM SOL (5 ML) 100 MG/ML UDC GT SCH ×2 (08:48→20:28)
[2016-08-27] MEDS: ASCORBIC ACID 500 MG TABLET GT SCH (08:48)
[2016-08-27] MEDS: PROSOURCE / PROSTAT (PYXIS) 30 ML UDC GT SCH (08:48)
[2016-08-27] MEDS: LACTOBACILLUS RHAMNOSUS GG 1 EACH CAP.SPRINK GT SCH (08:48)
[2016-08-27] MEDS: LABETALOL HCL (100MG) 100 MG TABLET GT SCH ×2 (08:48→20:28)
[2016-08-27] MEDS: OMEGA GT SCH ×3 (08:48→16:29)
[2016-08-27] MEDS: CARBOXYMETHYLCELLULOSE SODIUM 0.4 ML DROPERETTE EACHEYE SCH (08:48)
[2016-08-27] MEDS: HYDROGEL DRESSING 90 GM TUBE TP SCH ×2 (08:48→20:28)
[2016-08-27] MEDS: MVI/MINERALS LIQUID (CEROVITE) GT SCH (08:48)
[2016-08-27] MEDS: COD LIVER OIL/ZINC OXIDE 120 GM TUBE TP SCH ×4 (08:49→20:28)
[2016-08-27] MEDS: CLOTRIMAZOLE 1% 15 GM TUBE TP SCH ×2 (08:49→20:29)
[2016-08-27] MEDS: HYDROGEN PEROXIDE 480 ML BOTTLE TP SCH ×2 (08:49→20:28)
[2016-08-27] MEDS: CHOLESTYRAMINE/ASPARTAME 4 G/PKT PACKET GT SCH (12:01)
[2016-08-27] MEDS: VALSARTAN 80 MG TABLET GT SCH (22:08)
[2016-08-28] MEDS: IPRATROPIUM NEB FS 0.5 MG/2.5 ML AMPUL.NEB IH SCH ×4 (01:20→19:30)
[2016-08-28] MEDS: ALBUTEROL FS 2.5 MG/3 ML VIAL.NEB NEB SCH ×4 (01:20→19:30)
[2016-08-28 01:26] VITALS: BP 110/62
[2016-08-28 05:09] VITALS: BP 116/58
[2016-08-28] MEDS: LEVOTHYROXINE SODIUM 88 MCG TABLET PO SCH (05:13)
[2016-08-28] MEDS: PANTOPRAZOLE 40 MG/PACK PACK GT SCH (05:13)
[2016-08-28] MEDS: BLOOD SUGAR DIAGNOSTIC 1 EACH STRIP IN SCH ×2 (05:13→18:41)
[2016-08-28] MEDS: GLYTROL 1,000 ML BAG GT PRN (05:13)
[2016-08-28] MEDS: INSULIN REGULAR, HUMAN 100 UNIT/ML 3 ML VIAL SQ PRN ×2 (05:14→18:41)
[2016-08-28 07:40] VITALS: BP 118/58
[2016-08-28] MEDS: MVI/MINERALS LIQUID (CEROVITE) GT SCH (09:00)
[2016-08-28] MEDS: COD LIVER OIL/ZINC OXIDE 120 GM TUBE TP SCH ×4 (09:00→20:58)
[2016-08-28] MEDS: HYDROGEL DRESSING 90 GM TUBE TP SCH ×2 (09:00→20:58)
[2016-08-28] MEDS: ASCORBIC ACID 500 MG TABLET GT SCH (09:00)
[2016-08-28] MEDS: PROSOURCE / PROSTAT (PYXIS) 30 ML UDC GT SCH (09:00)
[2016-08-28] MEDS: LEVETIRACETAM SOL (5 ML) 100 MG/ML UDC GT SCH ×2 (09:00→20:58)
[2016-08-28] MEDS: LACTOBACILLUS RHAMNOSUS GG 1 EACH CAP.SPRINK GT SCH (09:00)
[2016-08-28] MEDS: OMEGA GT SCH ×3 (09:00→17:00)
[2016-08-28] MEDS: CARBOXYMETHYLCELLULOSE SODIUM 0.4 ML DROPERETTE EACHEYE SCH (09:00)
[2016-08-28] MEDS: CLOTRIMAZOLE 1% 15 GM TUBE TP SCH ×2 (09:00→20:58)
[2016-08-28] MEDS: LABETALOL HCL (100MG) 100 MG TABLET GT SCH ×2 (09:00→21:00)
[2016-08-28] MEDS: HYDROGEN PEROXIDE 480 ML BOTTLE TP SCH ×2 (10:33→20:58)
[2016-08-28] MEDS: CHOLESTYRAMINE/ASPARTAME 4 G/PKT PACKET GT SCH (12:00)
[2016-08-28 19:02] VITALS: BP 124/50
[2016-08-28 19:53] VITALS: BP 108/55
[2016-08-28 21:00] VITALS: BP 108/55
[2016-08-28] MEDS: VALSARTAN 80 MG TABLET GT SCH (21:01)
[2016-08-29] VITALS (7 sets, daily range): BP systolic 98–128; BP diastolic 54–73
[2016-08-29] MEDS: IPRATROPIUM NEB FS 0.5 MG/2.5 ML AMPUL.NEB IH SCH ×4 (02:01→19:30)
[2016-08-29] MEDS: ALBUTEROL FS 2.5 MG/3 ML VIAL.NEB NEB SCH ×4 (02:01→19:30)
[2016-08-29] MEDS: LEVOTHYROXINE SODIUM 88 MCG TABLET PO SCH (05:28)
[2016-08-29] MEDS: PANTOPRAZOLE 40 MG/PACK PACK GT SCH (05:28)
[2016-08-29] MEDS: BLOOD SUGAR DIAGNOSTIC 1 EACH STRIP IN SCH ×2 (05:28→18:00)
[2016-08-29] MEDS: CARBOXYMETHYLCELLULOSE SODIUM 0.4 ML DROPERETTE EACHEYE SCH (09:00)
[2016-08-29] MEDS: LACTOBACILLUS RHAMNOSUS GG 1 EACH CAP.SPRINK GT SCH (09:00)
[2016-08-29] MEDS: PROSOURCE / PROSTAT (PYXIS) 30 ML UDC GT SCH (09:00)
[2016-08-29] MEDS: ASCORBIC ACID 500 MG TABLET GT SCH (09:00)
[2016-08-29] MEDS: COD LIVER OIL/ZINC OXIDE 120 GM TUBE TP SCH ×4 (09:00→20:52)
[2016-08-29] MEDS: HYDROGEN PEROXIDE 480 ML BOTTLE TP SCH ×2 (09:00→20:52)
[2016-08-29] MEDS: HYDROGEL DRESSING 90 GM TUBE TP SCH ×2 (09:00→20:52)
[2016-08-29] MEDS: LABETALOL HCL (100MG) 100 MG TABLET GT SCH ×2 (09:00→20:52)
[2016-08-29] MEDS: CLOTRIMAZOLE 1% 15 GM TUBE TP SCH ×2 (09:00→20:52)
[2016-08-29] MEDS: OMEGA GT SCH ×3 (09:00→17:10)
[2016-08-29] MEDS: LEVETIRACETAM SOL (5 ML) 100 MG/ML UDC GT SCH ×2 (09:00→20:52)
[2016-08-29] MEDS: MVI/MINERALS LIQUID (CEROVITE) GT SCH (09:00)
[2016-08-29] MEDS: CHOLESTYRAMINE/ASPARTAME 4 G/PKT PACKET GT SCH (12:00)
[2016-08-29] MEDS: INSULIN REGULAR, HUMAN 100 UNIT/ML 3 ML VIAL SQ PRN (19:01)
[2016-08-29] MEDS: VALSARTAN 80 MG TABLET GT SCH (21:49)
[2016-08-30] VITALS (7 sets, daily range): BP systolic 102–120; BP diastolic 54–70
[2016-08-30] MEDS: IPRATROPIUM NEB FS 0.5 MG/2.5 ML AMPUL.NEB IH SCH ×4 (00:51→20:22)
[2016-08-30] MEDS: ALBUTEROL FS 2.5 MG/3 ML VIAL.NEB NEB SCH ×4 (00:51→20:22)
[2016-08-30] MEDS: PANTOPRAZOLE 40 MG/PACK PACK GT SCH (05:24)
[2016-08-30] MEDS: LEVOTHYROXINE SODIUM 88 MCG TABLET PO SCH (05:24)
[2016-08-30] MEDS: BLOOD SUGAR DIAGNOSTIC 1 EACH STRIP IN SCH ×2 (05:53→18:12)
[2016-08-30] MEDS: LACTOBACILLUS RHAMNOSUS GG 1 EACH CAP.SPRINK GT SCH (09:00)
[2016-08-30] MEDS: CLOTRIMAZOLE 1% 15 GM TUBE TP SCH ×2 (09:00→21:07)
[2016-08-30] MEDS: LEVETIRACETAM SOL (5 ML) 100 MG/ML UDC GT SCH ×2 (09:00→21:06)
[2016-08-30] MEDS: COD LIVER OIL/ZINC OXIDE 120 GM TUBE TP SCH ×4 (09:00→21:07)
[2016-08-30] MEDS: HYDROGEL DRESSING 90 GM TUBE TP SCH ×2 (09:00→21:07)
[2016-08-30] MEDS: MVI/MINERALS LIQUID (CEROVITE) GT SCH (09:00)
[2016-08-30] MEDS: HYDROGEN PEROXIDE 480 ML BOTTLE TP SCH ×2 (09:00→21:07)
[2016-08-30] MEDS: PROSOURCE / PROSTAT (PYXIS) 30 ML UDC GT SCH (09:00)
[2016-08-30] MEDS: OMEGA GT SCH ×3 (09:00→17:00)
[2016-08-30] MEDS: CARBOXYMETHYLCELLULOSE SODIUM 0.4 ML DROPERETTE EACHEYE SCH (09:00)
[2016-08-30] MEDS: LABETALOL HCL (100MG) 100 MG TABLET GT SCH ×2 (09:00→21:00)
[2016-08-30] MEDS: ASCORBIC ACID 500 MG TABLET GT SCH (09:00)
[2016-08-30] MEDS: CHOLESTYRAMINE/ASPARTAME 4 G/PKT PACKET GT SCH (12:00)
[2016-08-30] MEDS: INSULIN REGULAR, HUMAN 100 UNIT/ML 3 ML VIAL SQ PRN (18:13)
[2016-08-30] MEDS: VALSARTAN 80 MG TABLET GT SCH (21:07)
[2016-08-31] VITALS (7 sets, daily range): BP systolic 106–119; BP diastolic 57–72
[2016-08-31] MEDS: IPRATROPIUM NEB FS 0.5 MG/2.5 ML AMPUL.NEB IH SCH ×4 (01:19→19:41)
[2016-08-31] MEDS: ALBUTEROL FS 2.5 MG/3 ML VIAL.NEB NEB SCH ×4 (01:20→19:41)
[2016-08-31] MEDS: PANTOPRAZOLE 40 MG/PACK PACK GT SCH (05:23)
[2016-08-31] MEDS: LEVOTHYROXINE SODIUM 88 MCG TABLET PO SCH (05:23)
[2016-08-31] MEDS: BLOOD SUGAR DIAGNOSTIC 1 EACH STRIP IN SCH ×2 (05:58→17:58)
[2016-08-31] MEDS: CLOTRIMAZOLE 1% 15 GM TUBE TP SCH ×2 (09:00→20:49)
[2016-08-31] MEDS: LACTOBACILLUS RHAMNOSUS GG 1 EACH CAP.SPRINK GT SCH (09:39)
[2016-08-31] MEDS: LABETALOL HCL (100MG) 100 MG TABLET GT SCH ×2 (09:40→20:48)
[2016-08-31] MEDS: MVI/MINERALS LIQUID (CEROVITE) GT SCH (09:40)
[2016-08-31] MEDS: PROSOURCE / PROSTAT (PYXIS) 30 ML UDC GT SCH (09:40)
[2016-08-31] MEDS: ASCORBIC ACID 500 MG TABLET GT SCH (09:40)
[2016-08-31] MEDS: LEVETIRACETAM SOL (5 ML) 100 MG/ML UDC GT SCH ×2 (09:42→20:47)
[2016-08-31] MEDS: COD LIVER OIL/ZINC OXIDE 120 GM TUBE TP SCH ×4 (09:43→20:48)
[2016-08-31] MEDS: HYDROGEN PEROXIDE 480 ML BOTTLE TP SCH ×2 (09:43→20:49)
[2016-08-31] MEDS: HYDROGEL DRESSING 90 GM TUBE TP SCH ×2 (09:43→20:48)
[2016-08-31] MEDS: CARBOXYMETHYLCELLULOSE SODIUM 0.4 ML DROPERETTE EACHEYE SCH (09:43)
[2016-08-31] MEDS: OMEGA GT SCH ×3 (09:43→17:58)
[2016-08-31] MEDS: CHOLESTYRAMINE/ASPARTAME 4 G/PKT PACKET GT SCH (12:31)
[2016-08-31] MEDS: GLYTROL 1,000 ML BAG GT PRN (12:32)
[2016-08-31] MEDS: VALSARTAN 80 MG TABLET GT SCH (21:53)
[2016-09-01] VITALS (8 sets, daily range): BP systolic 105–124; BP diastolic 50–67
[2016-09-01] MEDS: IPRATROPIUM NEB FS 0.5 MG/2.5 ML AMPUL.NEB IH SCH ×4 (01:45→19:43)
[2016-09-01] MEDS: ALBUTEROL FS 2.5 MG/3 ML VIAL.NEB NEB SCH ×4 (01:46→19:43)
[2016-09-01] MEDS: LEVOTHYROXINE SODIUM 88 MCG TABLET PO SCH (05:31)
[2016-09-01] MEDS: PANTOPRAZOLE 40 MG/PACK PACK GT SCH (05:31)
[2016-09-01] MEDS: BLOOD SUGAR DIAGNOSTIC 1 EACH STRIP IN SCH ×2 (05:58→17:50)
[2016-09-01] MEDS: GLYTROL 1,000 ML BAG GT PRN (06:19)
[2016-09-01] MEDS: OMEGA GT SCH ×3 (09:00→17:14)
[2016-09-01] MEDS: HYDROGEN PEROXIDE 480 ML BOTTLE TP SCH ×2 (09:00→21:00)
[2016-09-01] MEDS: LEVETIRACETAM SOL (5 ML) 100 MG/ML UDC GT SCH ×2 (09:00→21:00)
[2016-09-01] MEDS: CLOTRIMAZOLE 1% 15 GM TUBE TP SCH ×2 (09:00→21:00)
[2016-09-01] MEDS: LACTOBACILLUS RHAMNOSUS GG 1 EACH CAP.SPRINK GT SCH (09:00)
[2016-09-01] MEDS: MVI/MINERALS LIQUID (CEROVITE) GT SCH (09:00)
[2016-09-01] MEDS: LABETALOL HCL (100MG) 100 MG TABLET GT SCH ×2 (09:00→21:00)
[2016-09-01] MEDS: CARBOXYMETHYLCELLULOSE SODIUM 0.4 ML DROPERETTE EACHEYE SCH (09:00)
[2016-09-01] MEDS: ASCORBIC ACID 500 MG TABLET GT SCH (09:00)
[2016-09-01] MEDS: COD LIVER OIL/ZINC OXIDE 120 GM TUBE TP SCH ×4 (09:00→21:00)
[2016-09-01] MEDS: PROSOURCE / PROSTAT (PYXIS) 30 ML UDC GT SCH (09:00)
[2016-09-01] MEDS: HYDROGEL DRESSING 90 GM TUBE TP SCH ×2 (09:00→21:00)
[2016-09-01] MEDS: CHOLESTYRAMINE/ASPARTAME 4 G/PKT PACKET GT SCH (12:00)
[2016-09-01] MEDS: VALSARTAN 80 MG TABLET GT SCH (22:30)
[2016-09-02] VITALS (8 sets, daily range): BP systolic 107–126; BP diastolic 55–74
[2016-09-02] MEDS: IPRATROPIUM NEB FS 0.5 MG/2.5 ML AMPUL.NEB IH SCH ×4 (01:09→20:01)
[2016-09-02] MEDS: ALBUTEROL FS 2.5 MG/3 ML VIAL.NEB NEB SCH ×4 (01:09→20:01)
[2016-09-02] MEDS: LEVOTHYROXINE SODIUM 88 MCG TABLET PO SCH (05:16)
[2016-09-02] MEDS: BLOOD SUGAR DIAGNOSTIC 1 EACH STRIP IN SCH ×2 (05:16→17:39)
[2016-09-02] MEDS: PANTOPRAZOLE 40 MG/PACK PACK GT SCH (05:16)
[2016-09-02] MEDS: GLYTROL 1,000 ML BAG GT PRN ×2 (05:17→23:53)
[2016-09-02] MEDS: INSULIN REGULAR, HUMAN 100 UNIT/ML 3 ML VIAL SQ PRN ×2 (05:25→17:40)
[2016-09-02] MEDS: LEVETIRACETAM SOL (5 ML) 100 MG/ML UDC GT SCH ×2 (08:50→20:28)
[2016-09-02] MEDS: PROSOURCE / PROSTAT (PYXIS) 30 ML UDC GT SCH (08:50)
[2016-09-02] MEDS: OMEGA GT SCH ×3 (08:50→17:39)
[2016-09-02] MEDS: CARBOXYMETHYLCELLULOSE SODIUM 0.4 ML DROPERETTE EACHEYE SCH (08:50)
[2016-09-02] MEDS: LACTOBACILLUS RHAMNOSUS GG 1 EACH CAP.SPRINK GT SCH (08:50)
[2016-09-02] MEDS: MVI/MINERALS LIQUID (CEROVITE) GT SCH (08:50)
[2016-09-02] MEDS: ASCORBIC ACID 500 MG TABLET GT SCH (08:51)
[2016-09-02] MEDS: COD LIVER OIL/ZINC OXIDE 120 GM TUBE TP SCH ×4 (08:51→20:29)
[2016-09-02] MEDS: LABETALOL HCL (100MG) 100 MG TABLET GT SCH ×2 (08:51→20:28)
[2016-09-02] MEDS: CLOTRIMAZOLE 1% 15 GM TUBE TP SCH ×2 (13:18→20:29)
[2016-09-02] MEDS: HYDROGEN PEROXIDE 480 ML BOTTLE TP SCH ×2 (13:18→20:29)
[2016-09-02] MEDS: CHOLESTYRAMINE/ASPARTAME 4 G/PKT PACKET GT SCH (13:18)
[2016-09-02] MEDS: HYDROGEL DRESSING 90 GM TUBE TP SCH ×2 (13:18→20:28)
[2016-09-02] MEDS: hydrALAZINE HCL 10 MG TABLET GT PRN ×2 (13:19→17:39)
[2016-09-02] MEDS: VALSARTAN 80 MG TABLET GT SCH (22:11)
[2016-09-03] VITALS (8 sets, daily range): BP systolic 92–144; BP diastolic 54–74
[2016-09-03] MEDS: IPRATROPIUM NEB FS 0.5 MG/2.5 ML AMPUL.NEB IH SCH ×4 (01:38→19:35)
[2016-09-03] MEDS: ALBUTEROL FS 2.5 MG/3 ML VIAL.NEB NEB SCH ×4 (01:38→19:35)
[2016-09-03] MEDS: PANTOPRAZOLE 40 MG/PACK PACK GT SCH (05:28)
[2016-09-03] MEDS: BLOOD SUGAR DIAGNOSTIC 1 EACH STRIP IN SCH ×2 (05:28→17:20)
[2016-09-03] MEDS: INSULIN REGULAR, HUMAN 100 UNIT/ML 3 ML VIAL SQ PRN ×2 (05:29→17:23)
[2016-09-03] MEDS: LEVOTHYROXINE SODIUM 88 MCG TABLET PO SCH (05:29)
[2016-09-03] MEDS: CARBOXYMETHYLCELLULOSE SODIUM 0.4 ML DROPERETTE EACHEYE SCH (08:59)
[2016-09-03] MEDS: LACTOBACILLUS RHAMNOSUS GG 1 EACH CAP.SPRINK GT SCH (09:00)
[2016-09-03] MEDS: MVI/MINERALS LIQUID (CEROVITE) GT SCH (09:00)
[2016-09-03] MEDS: OMEGA GT SCH ×3 (09:00→17:20)
[2016-09-03] MEDS: LEVETIRACETAM SOL (5 ML) 100 MG/ML UDC GT SCH ×2 (09:00→21:03)
[2016-09-03] MEDS: PROSOURCE / PROSTAT (PYXIS) 30 ML UDC GT SCH (09:00)
[2016-09-03] MEDS: LABETALOL HCL (100MG) 100 MG TABLET GT SCH ×2 (09:01→21:00)
[2016-09-03] MEDS: ASCORBIC ACID 500 MG TABLET GT SCH (09:01)
[2016-09-03] MEDS: hydrALAZINE HCL 10 MG TABLET GT PRN ×3 (09:03→17:21)
[2016-09-03] MEDS: HYDROGEN PEROXIDE 480 ML BOTTLE TP SCH ×2 (13:06→21:04)
[2016-09-03] MEDS: HYDROGEL DRESSING 90 GM TUBE TP SCH ×2 (13:06→21:04)
[2016-09-03] MEDS: COD LIVER OIL/ZINC OXIDE 120 GM TUBE TP SCH ×4 (13:06→21:04)
[2016-09-03] MEDS: CLOTRIMAZOLE 1% 15 GM TUBE TP SCH ×2 (13:07→21:04)
[2016-09-03] MEDS: CHOLESTYRAMINE/ASPARTAME 4 G/PKT PACKET GT SCH (13:07)
[2016-09-03] MEDS: VALSARTAN 80 MG TABLET GT SCH (22:00)
[2016-09-03] MEDS: GLYTROL 1,000 ML BAG GT PRN (22:48)
[2016-09-04 01:00] VITALS: BP 110/60
[2016-09-04] MEDS: IPRATROPIUM NEB FS 0.5 MG/2.5 ML AMPUL.NEB IH SCH ×4 (01:28→19:33)
[2016-09-04] MEDS: ALBUTEROL FS 2.5 MG/3 ML VIAL.NEB NEB SCH ×4 (01:28→19:34)
[2016-09-04] MEDS: PANTOPRAZOLE 40 MG/PACK PACK GT SCH (05:41)
[2016-09-04] MEDS: BLOOD SUGAR DIAGNOSTIC 1 EACH STRIP IN SCH ×2 (05:41→17:26)
[2016-09-04] MEDS: LEVOTHYROXINE SODIUM 88 MCG TABLET PO SCH (05:41)
[2016-09-04 05:42] VITALS: BP 110/63
[2016-09-04] MEDS: INSULIN REGULAR, HUMAN 100 UNIT/ML 3 ML VIAL SQ PRN ×2 (05:42→17:26)
[2016-09-04 07:46] VITALS: BP 123/73
[2016-09-04] MEDS: OMEGA GT SCH ×3 (09:00→17:02)
[2016-09-04] MEDS: HYDROGEL DRESSING 90 GM TUBE TP SCH ×2 (09:00→21:26)
[2016-09-04] MEDS: CLOTRIMAZOLE 1% 15 GM TUBE TP SCH ×2 (09:00→21:27)
[2016-09-04] MEDS: LABETALOL HCL (100MG) 100 MG TABLET GT SCH ×2 (09:00→21:26)
[2016-09-04] MEDS: PROSOURCE / PROSTAT (PYXIS) 30 ML UDC GT SCH (09:00)
[2016-09-04] MEDS: ASCORBIC ACID 500 MG TABLET GT SCH (09:00)
[2016-09-04] MEDS: MVI/MINERALS LIQUID (CEROVITE) GT SCH (09:00)
[2016-09-04] MEDS: HYDROGEN PEROXIDE 480 ML BOTTLE TP SCH ×2 (09:00→21:26)
[2016-09-04] MEDS: COD LIVER OIL/ZINC OXIDE 120 GM TUBE TP SCH ×4 (09:00→21:26)
[2016-09-04] MEDS: CARBOXYMETHYLCELLULOSE SODIUM 0.4 ML DROPERETTE EACHEYE SCH (09:00)
[2016-09-04] MEDS: LACTOBACILLUS RHAMNOSUS GG 1 EACH CAP.SPRINK GT SCH (09:00)
[2016-09-04] MEDS: LEVETIRACETAM SOL (5 ML) 100 MG/ML UDC GT SCH ×2 (09:00→21:26)
[2016-09-04] MEDS: CHOLESTYRAMINE/ASPARTAME 4 G/PKT PACKET GT SCH (12:00)
[2016-09-04 17:04] VITALS: BP 119/71
[2016-09-04] MEDS: GLYTROL 1,000 ML BAG GT PRN (18:10)
[2016-09-04 20:03] VITALS: BP 113/58
[2016-09-04 21:25] VITALS: BP 112/58
[2016-09-04] MEDS: VALSARTAN 80 MG TABLET GT SCH (21:27)
[2016-09-05] MEDS: ALBUTEROL FS 2.5 MG/3 ML VIAL.NEB NEB SCH ×4 (01:00→20:23)
[2016-09-05] MEDS: IPRATROPIUM NEB FS 0.5 MG/2.5 ML AMPUL.NEB IH SCH ×4 (01:00→20:23)
[2016-09-05 05:08] VITALS: BP 116/60
[2016-09-05] MEDS: PANTOPRAZOLE 40 MG/PACK PACK GT SCH (05:43)
[2016-09-05] MEDS: BLOOD SUGAR DIAGNOSTIC 1 EACH STRIP IN SCH ×2 (05:43→17:35)
[2016-09-05] MEDS: LEVOTHYROXINE SODIUM 88 MCG TABLET PO SCH (05:44)
[2016-09-05 07:58] VITALS: BP 113/81
[2016-09-05] MEDS: OMEGA GT SCH ×3 (08:32→17:35)
[2016-09-05] MEDS: LACTOBACILLUS RHAMNOSUS GG 1 EACH CAP.SPRINK GT SCH (08:32)
[2016-09-05] MEDS: CARBOXYMETHYLCELLULOSE SODIUM 0.4 ML DROPERETTE EACHEYE SCH (08:32)
[2016-09-05] MEDS: LEVETIRACETAM SOL (5 ML) 100 MG/ML UDC GT SCH ×2 (08:32→21:03)
[2016-09-05] MEDS: LABETALOL HCL (100MG) 100 MG TABLET GT SCH ×2 (08:33→21:03)
[2016-09-05] MEDS: MVI/MINERALS LIQUID (CEROVITE) GT SCH (08:33)
[2016-09-05] MEDS: ASCORBIC ACID 500 MG TABLET GT SCH (08:33)
[2016-09-05] MEDS: PROSOURCE / PROSTAT (PYXIS) 30 ML UDC GT SCH (08:33)
[2016-09-05] MEDS: COD LIVER OIL/ZINC OXIDE 120 GM TUBE TP SCH ×4 (11:30→21:04)
[2016-09-05] MEDS: CLOTRIMAZOLE 1% 15 GM TUBE TP SCH ×2 (11:30→21:04)
[2016-09-05] MEDS: HYDROGEN PEROXIDE 480 ML BOTTLE TP SCH ×2 (11:30→21:04)
[2016-09-05] MEDS: CHOLESTYRAMINE/ASPARTAME 4 G/PKT PACKET GT SCH (12:00)
[2016-09-05 13:00] VITALS: BP 104/56
--- NOTE | 2016-09-05 14:40 | NUR ---
PADMA Escalante met with CINDY Meehan. Reyna wanted to discuss hospice care. It was discussed that DPMYLA would get her friend (an DIRECTOR ADVERTISING) to speak with resident's dtr Dyana regarding the decision that has been made and as an opportunity for her to receive support. PADMA Escalante to discuss with DPOA's sister Dyana and inform her of the decision the DPOA has made. Reyna worried about sister's response to the news. Per Boris, he will be direct with family members and will direct them to speak with DPOA if they should have any questions. Projected time line is the following week. DPMYLA wants to know the specific hospices that are contracted with the hospital and SW will provide this information to her, as DPOA wants to have final decision about which hospice is chosen. PADMA is informed. Per Evita, [facility] and Medicare (11 medicare days left). CINDY informed.
[2016-09-05] MEDS: GLYTROL 1,000 ML BAG GT PRN (16:03)
[2016-09-05 17:00] VITALS: BP 110/53
[2016-09-05 19:52] VITALS: BP 137/63
[2016-09-05] MEDS: VALSARTAN 80 MG TABLET GT SCH (21:04)
[2016-09-05 21:06] VITALS: BP 137/63
[2016-09-06] VITALS (7 sets, daily range): BP systolic 95–127; BP diastolic 43–70
[2016-09-06] MEDS: IPRATROPIUM NEB FS 0.5 MG/2.5 ML AMPUL.NEB IH SCH ×4 (01:30→20:03)
[2016-09-06] MEDS: ALBUTEROL FS 2.5 MG/3 ML VIAL.NEB NEB SCH ×4 (01:30→20:03)
[2016-09-06] MEDS: PANTOPRAZOLE 40 MG/PACK PACK GT SCH (05:41)
[2016-09-06] MEDS: LEVOTHYROXINE SODIUM 88 MCG TABLET PO SCH (06:03)
[2016-09-06] MEDS: BLOOD SUGAR DIAGNOSTIC 1 EACH STRIP IN SCH ×2 (06:03→17:41)
[2016-09-06] MEDS: LEVETIRACETAM SOL (5 ML) 100 MG/ML UDC GT SCH ×2 (08:08→20:55)
[2016-09-06] MEDS: LACTOBACILLUS RHAMNOSUS GG 1 EACH CAP.SPRINK GT SCH (08:08)
[2016-09-06] MEDS: OMEGA GT SCH ×3 (08:08→17:41)
[2016-09-06] MEDS: PROSOURCE / PROSTAT (PYXIS) 30 ML UDC GT SCH (08:08)
[2016-09-06] MEDS: CARBOXYMETHYLCELLULOSE SODIUM 0.4 ML DROPERETTE EACHEYE SCH (08:08)
[2016-09-06] MEDS: MVI/MINERALS LIQUID (CEROVITE) GT SCH (08:08)
[2016-09-06] MEDS: ASCORBIC ACID 500 MG TABLET GT SCH (08:09)
[2016-09-06] MEDS: LABETALOL HCL (100MG) 100 MG TABLET GT SCH ×2 (08:09→20:56)
--- NOTE | 2016-09-06 09:08 | NUR ---
Provided list of contracted hospices to CINDY Orellana via email. She will notify JOSSE which hospice she chooses.
[2016-09-06] MEDS: CLOTRIMAZOLE 1% 15 GM TUBE TP SCH ×2 (11:30→20:57)
[2016-09-06] MEDS: COD LIVER OIL/ZINC OXIDE 120 GM TUBE TP SCH ×4 (11:30→20:57)
[2016-09-06] MEDS: HYDROGEN PEROXIDE 480 ML BOTTLE TP SCH ×2 (11:30→20:57)
[2016-09-06] MEDS: CHOLESTYRAMINE/ASPARTAME 4 G/PKT PACKET GT SCH (12:00)
[2016-09-06] MEDS: GLYTROL 1,000 ML BAG GT PRN (15:29)
[2016-09-06] MEDS: VALSARTAN 80 MG TABLET GT SCH (21:00)
[2016-09-07 01:12] VITALS: BP 106/60
[2016-09-07] MEDS: ALBUTEROL FS 2.5 MG/3 ML VIAL.NEB NEB SCH ×4 (02:21→20:17)
[2016-09-07] MEDS: IPRATROPIUM NEB FS 0.5 MG/2.5 ML AMPUL.NEB IH SCH ×4 (02:21→20:17)
[2016-09-07 05:08] VITALS: BP 104/58
[2016-09-07] MEDS: LEVOTHYROXINE SODIUM 88 MCG TABLET PO SCH (05:36)
[2016-09-07] MEDS: PANTOPRAZOLE 40 MG/PACK PACK GT SCH (05:36)
[2016-09-07] MEDS: BLOOD SUGAR DIAGNOSTIC 1 EACH STRIP IN SCH ×2 (06:13→17:54)
[2016-09-07 08:00] VITALS: BP 108/46
[2016-09-07] MEDS: CARBOXYMETHYLCELLULOSE SODIUM 0.4 ML DROPERETTE EACHEYE SCH (09:00)
[2016-09-07] MEDS: LABETALOL HCL (100MG) 100 MG TABLET GT SCH ×2 (09:00→21:01)
[2016-09-07] MEDS: MVI/MINERALS LIQUID (CEROVITE) GT SCH (09:18)
[2016-09-07] MEDS: OMEGA GT SCH ×3 (09:18→16:38)
[2016-09-07] MEDS: LEVETIRACETAM SOL (5 ML) 100 MG/ML UDC GT SCH ×2 (09:18→21:01)
[2016-09-07] MEDS: LACTOBACILLUS RHAMNOSUS GG 1 EACH CAP.SPRINK GT SCH (09:18)
[2016-09-07] MEDS: HYDROGEN PEROXIDE 480 ML BOTTLE TP SCH ×2 (09:19→21:01)
[2016-09-07] MEDS: ASCORBIC ACID 500 MG TABLET GT SCH (09:19)
[2016-09-07] MEDS: COD LIVER OIL/ZINC OXIDE 120 GM TUBE TP SCH ×4 (09:19→21:01)
[2016-09-07] MEDS: PROSOURCE / PROSTAT (PYXIS) 30 ML UDC GT SCH (09:19)
[2016-09-07] MEDS: CLOTRIMAZOLE 1% 15 GM TUBE TP SCH ×2 (09:20→21:01)
[2016-09-07] MEDS: GLYTROL 1,000 ML BAG GT PRN (12:50)
[2016-09-07] MEDS: CHOLESTYRAMINE/ASPARTAME 4 G/PKT PACKET GT SCH (12:50)
[2016-09-07 16:44] VITALS: BP 108/46
[2016-09-07 20:08] VITALS: BP 127/55
[2016-09-07] MEDS: VALSARTAN 80 MG TABLET GT SCH (21:02)
[2016-09-07 21:21] VITALS: BP 127/55
[2016-09-08] VITALS (7 sets, daily range): BP systolic 110–130; BP diastolic 58–76
[2016-09-08] MEDS: ALBUTEROL FS 2.5 MG/3 ML VIAL.NEB NEB SCH ×4 (02:16→20:02)
[2016-09-08] MEDS: IPRATROPIUM NEB FS 0.5 MG/2.5 ML AMPUL.NEB IH SCH ×4 (02:16→20:02)
[2016-09-08] MEDS: PANTOPRAZOLE 40 MG/PACK PACK GT SCH (05:51)
[2016-09-08] MEDS: LEVOTHYROXINE SODIUM 88 MCG TABLET PO SCH (05:51)
[2016-09-08] MEDS: BLOOD SUGAR DIAGNOSTIC 1 EACH STRIP IN SCH ×2 (06:02→17:19)
[2016-09-08] MEDS: GLYTROL 1,000 ML BAG GT PRN (06:14)
[2016-09-08] MEDS: LACTOBACILLUS RHAMNOSUS GG 1 EACH CAP.SPRINK GT SCH (09:21)
[2016-09-08] MEDS: CARBOXYMETHYLCELLULOSE SODIUM 0.4 ML DROPERETTE EACHEYE SCH (09:21)
[2016-09-08] MEDS: MVI/MINERALS LIQUID (CEROVITE) GT SCH (09:22)
[2016-09-08] MEDS: ASCORBIC ACID 500 MG TABLET GT SCH (09:22)
[2016-09-08] MEDS: LEVETIRACETAM SOL (5 ML) 100 MG/ML UDC GT SCH ×2 (09:22→21:28)
[2016-09-08] MEDS: LABETALOL HCL (100MG) 100 MG TABLET GT SCH ×2 (09:22→21:29)
[2016-09-08] MEDS: PROSOURCE / PROSTAT (PYXIS) 30 ML UDC GT SCH (09:22)
[2016-09-08] MEDS: OMEGA GT SCH ×3 (09:22→16:37)
[2016-09-08] MEDS: COD LIVER OIL/ZINC OXIDE 120 GM TUBE TP SCH ×4 (09:23→21:29)
[2016-09-08] MEDS: HYDROGEN PEROXIDE 480 ML BOTTLE TP SCH ×2 (09:23→21:29)
[2016-09-08] MEDS: CLOTRIMAZOLE 1% 15 GM TUBE TP SCH ×2 (09:30→21:29)
[2016-09-08] MEDS: CHOLESTYRAMINE/ASPARTAME 4 G/PKT PACKET GT SCH (12:00)
[2016-09-08] MEDS: VALSARTAN 80 MG TABLET GT SCH (22:00)
[2016-09-09] VITALS (7 sets, daily range): BP systolic 101–116; BP diastolic 61–72
[2016-09-09] MEDS: ALBUTEROL FS 2.5 MG/3 ML VIAL.NEB NEB SCH ×4 (00:58→20:10)
[2016-09-09] MEDS: IPRATROPIUM NEB FS 0.5 MG/2.5 ML AMPUL.NEB IH SCH ×4 (00:58→20:10)
[2016-09-09] MEDS: GLYTROL 1,000 ML BAG GT PRN ×2 (01:30→23:14)
[2016-09-09] MEDS: PANTOPRAZOLE 40 MG/PACK PACK GT SCH (06:27)
[2016-09-09] MEDS: BLOOD SUGAR DIAGNOSTIC 1 EACH STRIP IN SCH ×2 (06:27→17:53)
[2016-09-09] MEDS: LEVOTHYROXINE SODIUM 88 MCG TABLET PO SCH (06:27)
[2016-09-09] MEDS: INSULIN REGULAR, HUMAN 100 UNIT/ML 3 ML VIAL SQ PRN (06:28)
[2016-09-09] MEDS: OMEGA GT SCH ×3 (09:18→16:58)
[2016-09-09] MEDS: LEVETIRACETAM SOL (5 ML) 100 MG/ML UDC GT SCH ×2 (09:18→21:28)
[2016-09-09] MEDS: LACTOBACILLUS RHAMNOSUS GG 1 EACH CAP.SPRINK GT SCH (09:18)
[2016-09-09] MEDS: PROSOURCE / PROSTAT (PYXIS) 30 ML UDC GT SCH (09:18)
[2016-09-09] MEDS: MVI/MINERALS LIQUID (CEROVITE) GT SCH (09:18)
[2016-09-09] MEDS: CARBOXYMETHYLCELLULOSE SODIUM 0.4 ML DROPERETTE EACHEYE SCH (09:18)
[2016-09-09] MEDS: LABETALOL HCL (100MG) 100 MG TABLET GT SCH ×2 (09:18→21:29)
[2016-09-09] MEDS: ASCORBIC ACID 500 MG TABLET GT SCH (09:18)
[2016-09-09] MEDS: HYDROGEN PEROXIDE 480 ML BOTTLE TP SCH ×2 (09:19→21:29)
[2016-09-09] MEDS: COD LIVER OIL/ZINC OXIDE 120 GM TUBE TP SCH ×4 (09:19→21:29)
[2016-09-09] MEDS: CLOTRIMAZOLE 1% 15 GM TUBE TP SCH ×2 (09:19→21:29)
[2016-09-09] MEDS: CHOLESTYRAMINE/ASPARTAME 4 G/PKT PACKET GT SCH (12:00)
[2016-09-09] MEDS: VALSARTAN 80 MG TABLET GT SCH (22:00)
[2016-09-10] VITALS (7 sets, daily range): BP systolic 112–136; BP diastolic 49–72
[2016-09-10] MEDS: ALBUTEROL FS 2.5 MG/3 ML VIAL.NEB NEB SCH ×4 (01:06→19:52)
[2016-09-10] MEDS: IPRATROPIUM NEB FS 0.5 MG/2.5 ML AMPUL.NEB IH SCH ×4 (01:06→19:52)
[2016-09-10] MEDS: LEVOTHYROXINE SODIUM 88 MCG TABLET PO SCH (06:13)
[2016-09-10] MEDS: PANTOPRAZOLE 40 MG/PACK PACK GT SCH (06:13)
[2016-09-10] MEDS: BLOOD SUGAR DIAGNOSTIC 1 EACH STRIP IN SCH ×2 (06:13→18:26)
[2016-09-10] MEDS: ASCORBIC ACID 500 MG TABLET GT SCH (08:02)
[2016-09-10] MEDS: MVI/MINERALS LIQUID (CEROVITE) GT SCH (08:02)
[2016-09-10] MEDS: LACTOBACILLUS RHAMNOSUS GG 1 EACH CAP.SPRINK GT SCH (08:02)
[2016-09-10] MEDS: LEVETIRACETAM SOL (5 ML) 100 MG/ML UDC GT SCH ×2 (08:02→21:03)
[2016-09-10] MEDS: OMEGA GT SCH ×3 (08:02→17:35)
[2016-09-10] MEDS: CARBOXYMETHYLCELLULOSE SODIUM 0.4 ML DROPERETTE EACHEYE SCH (08:02)
[2016-09-10] MEDS: PROSOURCE / PROSTAT (PYXIS) 30 ML UDC GT SCH (08:02)
[2016-09-10] MEDS: LABETALOL HCL (100MG) 100 MG TABLET GT SCH ×2 (08:02→21:03)
[2016-09-10] MEDS: CHOLESTYRAMINE/ASPARTAME 4 G/PKT PACKET GT SCH (12:00)
[2016-09-10] MEDS: HYDROGEL DRESSING 90 GM TUBE TP SCH ×2 (12:00→21:04)
[2016-09-10] MEDS: COD LIVER OIL/ZINC OXIDE 120 GM TUBE TP SCH ×4 (14:15→21:04)
[2016-09-10] MEDS: HYDROGEN PEROXIDE 480 ML BOTTLE TP SCH ×2 (14:15→21:04)
[2016-09-10] MEDS: CLOTRIMAZOLE 1% 15 GM TUBE TP SCH ×2 (14:15→21:04)
[2016-09-10] MEDS: GLYTROL 1,000 ML BAG GT PRN (15:39)
[2016-09-10] MEDS: VALSARTAN 80 MG TABLET GT SCH (22:00)
[2016-09-11] VITALS (7 sets, daily range): BP systolic 105–118; BP diastolic 56–70
[2016-09-11] MEDS: ALBUTEROL FS 2.5 MG/3 ML VIAL.NEB NEB SCH ×4 (01:45→19:26)
[2016-09-11] MEDS: IPRATROPIUM NEB FS 0.5 MG/2.5 ML AMPUL.NEB IH SCH ×4 (01:45→19:26)
[2016-09-11] MEDS: LEVOTHYROXINE SODIUM 88 MCG TABLET PO SCH (06:11)
[2016-09-11] MEDS: BLOOD SUGAR DIAGNOSTIC 1 EACH STRIP IN SCH ×2 (06:11→17:10)
[2016-09-11] MEDS: PANTOPRAZOLE 40 MG/PACK PACK GT SCH (06:11)
[2016-09-11] MEDS: INSULIN REGULAR, HUMAN 100 UNIT/ML 3 ML VIAL SQ PRN (06:11)
[2016-09-11] MEDS: LABETALOL HCL (100MG) 100 MG TABLET GT SCH ×2 (09:00→21:12)
[2016-09-11] MEDS: CLOTRIMAZOLE 1% 15 GM TUBE TP SCH ×2 (09:00→21:13)
[2016-09-11] MEDS: CARBOXYMETHYLCELLULOSE SODIUM 0.4 ML DROPERETTE EACHEYE SCH (09:19)
[2016-09-11] MEDS: PROSOURCE / PROSTAT (PYXIS) 30 ML UDC GT SCH (09:19)
[2016-09-11] MEDS: LACTOBACILLUS RHAMNOSUS GG 1 EACH CAP.SPRINK GT SCH (09:19)
[2016-09-11] MEDS: OMEGA GT SCH ×3 (09:19→17:10)
[2016-09-11] MEDS: MVI/MINERALS LIQUID (CEROVITE) GT SCH (09:19)
[2016-09-11] MEDS: LEVETIRACETAM SOL (5 ML) 100 MG/ML UDC GT SCH ×2 (09:19→21:12)
[2016-09-11] MEDS: ASCORBIC ACID 500 MG TABLET GT SCH (09:20)
[2016-09-11] MEDS: COD LIVER OIL/ZINC OXIDE 120 GM TUBE TP SCH ×4 (09:21→21:13)
[2016-09-11] MEDS: HYDROGEN PEROXIDE 480 ML BOTTLE TP SCH ×2 (09:21→21:13)
[2016-09-11] MEDS: HYDROGEL DRESSING 90 GM TUBE TP SCH ×2 (09:21→21:13)
[2016-09-11] MEDS: CHOLESTYRAMINE/ASPARTAME 4 G/PKT PACKET GT SCH (12:00)
[2016-09-11] MEDS: VALSARTAN 80 MG TABLET GT SCH (21:14)
[2016-09-12] MEDS: IPRATROPIUM NEB FS 0.5 MG/2.5 ML AMPUL.NEB IH SCH ×4 (01:18→19:45)
[2016-09-12] MEDS: ALBUTEROL FS 2.5 MG/3 ML VIAL.NEB NEB SCH ×4 (01:19→19:45)
[2016-09-12 05:04] VITALS: BP 116/60
[2016-09-12] MEDS: LEVOTHYROXINE SODIUM 88 MCG TABLET PO SCH (05:54)
[2016-09-12] MEDS: PANTOPRAZOLE 40 MG/PACK PACK GT SCH (05:54)
[2016-09-12] MEDS: BLOOD SUGAR DIAGNOSTIC 1 EACH STRIP IN SCH ×2 (05:54→18:02)
[2016-09-12 08:00] VITALS: BP 117/60
[2016-09-12] MEDS: LABETALOL HCL (100MG) 100 MG TABLET GT SCH ×2 (09:00→21:02)
[2016-09-12] MEDS: OMEGA GT SCH ×3 (09:00→17:27)
[2016-09-12] MEDS: ASCORBIC ACID 500 MG TABLET GT SCH (09:00)
[2016-09-12] MEDS: COD LIVER OIL/ZINC OXIDE 120 GM TUBE TP SCH ×4 (09:00→21:02)
[2016-09-12] MEDS: HYDROGEN PEROXIDE 480 ML BOTTLE TP SCH ×2 (09:00→21:02)
[2016-09-12] MEDS: PROSOURCE / PROSTAT (PYXIS) 30 ML UDC GT SCH (09:00)
[2016-09-12] MEDS: HYDROGEL DRESSING 90 GM TUBE TP SCH ×2 (09:00→21:02)
[2016-09-12] MEDS: LEVETIRACETAM SOL (5 ML) 100 MG/ML UDC GT SCH ×2 (09:00→21:01)
[2016-09-12] MEDS: MVI/MINERALS LIQUID (CEROVITE) GT SCH (09:00)
[2016-09-12] MEDS: CLOTRIMAZOLE 1% 15 GM TUBE TP SCH ×2 (09:00→21:02)
[2016-09-12] MEDS: LACTOBACILLUS RHAMNOSUS GG 1 EACH CAP.SPRINK GT SCH (09:00)
[2016-09-12] MEDS: CARBOXYMETHYLCELLULOSE SODIUM 0.4 ML DROPERETTE EACHEYE SCH (09:00)
[2016-09-12] MEDS: CHOLESTYRAMINE/ASPARTAME 4 G/PKT PACKET GT SCH (11:54)
[2016-09-12 11:56] VITALS: BP 117/60
[2016-09-12] MEDS: INSULIN REGULAR, HUMAN 100 UNIT/ML 3 ML VIAL SQ PRN (18:03)
[2016-09-12 18:06] VITALS: BP 119/72
[2016-09-12 19:46] VITALS: BP 112/59
[2016-09-12] MEDS: VALSARTAN 80 MG TABLET GT SCH (21:02)
[2016-09-12 21:03] VITALS: BP 112/59
[2016-09-12] MEDS: GLYTROL 1,000 ML BAG GT PRN (23:14)
[2016-09-13] VITALS (8 sets, daily range): BP systolic 103–131; BP diastolic 52–84
[2016-09-13] MEDS: IPRATROPIUM NEB FS 0.5 MG/2.5 ML AMPUL.NEB IH SCH ×4 (02:18→19:32)
[2016-09-13] MEDS: ALBUTEROL FS 2.5 MG/3 ML VIAL.NEB NEB SCH ×4 (02:19→19:32)
[2016-09-13] MEDS: LEVOTHYROXINE SODIUM 88 MCG TABLET PO SCH (05:30)
[2016-09-13] MEDS: PANTOPRAZOLE 40 MG/PACK PACK GT SCH (05:30)
[2016-09-13] MEDS: BLOOD SUGAR DIAGNOSTIC 1 EACH STRIP IN SCH ×2 (05:30→18:35)
[2016-09-13] MEDS: ASCORBIC ACID 500 MG TABLET GT SCH (09:23)
[2016-09-13] MEDS: MVI/MINERALS LIQUID (CEROVITE) GT SCH (09:23)
[2016-09-13] MEDS: OMEGA GT SCH ×3 (09:23→17:00)
[2016-09-13] MEDS: CARBOXYMETHYLCELLULOSE SODIUM 0.4 ML DROPERETTE EACHEYE SCH (09:23)
[2016-09-13] MEDS: LEVETIRACETAM SOL (5 ML) 100 MG/ML UDC GT SCH ×2 (09:23→21:44)
[2016-09-13] MEDS: LABETALOL HCL (100MG) 100 MG TABLET GT SCH ×2 (09:23→21:44)
[2016-09-13] MEDS: PROSOURCE / PROSTAT (PYXIS) 30 ML UDC GT SCH (09:23)
[2016-09-13] MEDS: LACTOBACILLUS RHAMNOSUS GG 1 EACH CAP.SPRINK GT SCH (09:23)
[2016-09-13] MEDS: HYDROGEN PEROXIDE 480 ML BOTTLE TP SCH ×2 (09:24→21:44)
[2016-09-13] MEDS: COD LIVER OIL/ZINC OXIDE 120 GM TUBE TP SCH ×4 (09:24→21:44)
[2016-09-13] MEDS: HYDROGEL DRESSING 90 GM TUBE TP SCH ×2 (09:24→21:44)
[2016-09-13] MEDS: CLOTRIMAZOLE 1% 15 GM TUBE TP SCH ×2 (09:24→21:44)
[2016-09-13] MEDS: CHOLESTYRAMINE/ASPARTAME 4 G/PKT PACKET GT SCH (12:00)
--- NOTE | 2016-09-13 14:58 | NUR ---
Informed dtr/DPOA Reyna Meehan that hairdresser was coming tomorrow. She stated that she wants a trim for the resident. Will notify hairdresser.
[2016-09-13] MEDS: INSULIN REGULAR, HUMAN 100 UNIT/ML 3 ML VIAL SQ PRN (18:36)
[2016-09-13] MEDS: VALSARTAN 80 MG TABLET GT SCH (21:45)
[2016-09-13] MEDS: GLYTROL 1,000 ML BAG GT PRN (21:50)
[2016-09-14] VITALS (7 sets, daily range): BP systolic 103–130; BP diastolic 54–65
[2016-09-14] MEDS: IPRATROPIUM NEB FS 0.5 MG/2.5 ML AMPUL.NEB IH SCH ×4 (01:13→20:00)
[2016-09-14] MEDS: ALBUTEROL FS 2.5 MG/3 ML VIAL.NEB NEB SCH ×4 (01:13→20:00)
[2016-09-14] MEDS: LEVOTHYROXINE SODIUM 88 MCG TABLET PO SCH (06:25)
[2016-09-14] MEDS: PANTOPRAZOLE 40 MG/PACK PACK GT SCH (06:25)
--- NOTE | 2016-09-14 06:30 | NUR ---
instructional systems design consultant/notes blood sugar 100, no insulin coverages given no signs of hypo glycemia noted
[2016-09-14] MEDS: BLOOD SUGAR DIAGNOSTIC 1 EACH STRIP IN SCH ×2 (06:48→17:08)
[2016-09-14] MEDS: LACTOBACILLUS RHAMNOSUS GG 1 EACH CAP.SPRINK GT SCH (08:38)
[2016-09-14] MEDS: MVI/MINERALS LIQUID (CEROVITE) GT SCH (08:38)
[2016-09-14] MEDS: LABETALOL HCL (100MG) 100 MG TABLET GT SCH ×2 (08:38→20:30)
[2016-09-14] MEDS: PROSOURCE / PROSTAT (PYXIS) 30 ML UDC GT SCH (08:38)
[2016-09-14] MEDS: CARBOXYMETHYLCELLULOSE SODIUM 0.4 ML DROPERETTE EACHEYE SCH (08:38)
[2016-09-14] MEDS: LEVETIRACETAM SOL (5 ML) 100 MG/ML UDC GT SCH ×2 (08:38→20:30)
[2016-09-14] MEDS: OMEGA GT SCH ×3 (08:38→17:08)
[2016-09-14] MEDS: ASCORBIC ACID 500 MG TABLET GT SCH (08:39)
[2016-09-14] MEDS: hydrALAZINE HCL 10 MG TABLET GT PRN ×3 (08:42→17:08)
--- NOTE | 2016-09-14 11:50 | NUR ---
Resident had her hair cut by Ann Marie (hairdresser).
[2016-09-14] MEDS: CHOLESTYRAMINE/ASPARTAME 4 G/PKT PACKET GT SCH (12:00)
[2016-09-14] MEDS: COD LIVER OIL/ZINC OXIDE 120 GM TUBE TP SCH ×4 (13:23→20:30)
[2016-09-14] MEDS: HYDROGEN PEROXIDE 480 ML BOTTLE TP SCH ×2 (13:23→20:30)
[2016-09-14] MEDS: CLOTRIMAZOLE 1% 15 GM TUBE TP SCH ×2 (13:23→20:30)
[2016-09-14] MEDS: HYDROGEL DRESSING 90 GM TUBE TP SCH ×2 (13:23→20:30)
[2016-09-14] MEDS: INSULIN REGULAR, HUMAN 100 UNIT/ML 3 ML VIAL SQ PRN (17:09)
[2016-09-14] MEDS: GLYTROL 1,000 ML BAG GT PRN (17:10)
[2016-09-14] MEDS: VALSARTAN 80 MG TABLET GT SCH (21:31)
[2016-09-15] VITALS (8 sets, daily range): BP systolic 104–118; BP diastolic 50–77
[2016-09-15] MEDS: IPRATROPIUM NEB FS 0.5 MG/2.5 ML AMPUL.NEB IH SCH ×4 (00:44→20:10)
[2016-09-15] MEDS: ALBUTEROL FS 2.5 MG/3 ML VIAL.NEB NEB SCH ×4 (00:44→20:10)
[2016-09-15] MEDS: PANTOPRAZOLE 40 MG/PACK PACK GT SCH (05:32)
[2016-09-15] MEDS: LEVOTHYROXINE SODIUM 88 MCG TABLET PO SCH (05:32)
[2016-09-15] MEDS: BLOOD SUGAR DIAGNOSTIC 1 EACH STRIP IN SCH ×2 (05:32→17:26)
[2016-09-15] MEDS: INSULIN REGULAR, HUMAN 100 UNIT/ML 3 ML VIAL SQ PRN (05:33)
[2016-09-15] MEDS: CLOTRIMAZOLE 1% 15 GM TUBE TP SCH ×2 (09:00→21:00)
[2016-09-15] MEDS: LEVETIRACETAM SOL (5 ML) 100 MG/ML UDC GT SCH ×2 (09:58→21:51)
[2016-09-15] MEDS: CARBOXYMETHYLCELLULOSE SODIUM 0.4 ML DROPERETTE EACHEYE SCH (09:58)
[2016-09-15] MEDS: LACTOBACILLUS RHAMNOSUS GG 1 EACH CAP.SPRINK GT SCH (09:58)
[2016-09-15] MEDS: OMEGA GT SCH ×3 (09:58→17:27)
[2016-09-15] MEDS: MVI/MINERALS LIQUID (CEROVITE) GT SCH (09:58)
[2016-09-15] MEDS: PROSOURCE / PROSTAT (PYXIS) 30 ML UDC GT SCH (09:58)
[2016-09-15] MEDS: ASCORBIC ACID 500 MG TABLET GT SCH (09:59)
[2016-09-15] MEDS: LABETALOL HCL (100MG) 100 MG TABLET GT SCH ×2 (09:59→21:00)
[2016-09-15] MEDS: COD LIVER OIL/ZINC OXIDE 120 GM TUBE TP SCH ×4 (09:59→21:00)
[2016-09-15] MEDS: HYDROGEL DRESSING 90 GM TUBE TP SCH ×2 (09:59→21:51)
[2016-09-15] MEDS: HYDROGEN PEROXIDE 480 ML BOTTLE TP SCH ×2 (09:59→21:00)
[2016-09-15] MEDS: CHOLESTYRAMINE/ASPARTAME 4 G/PKT PACKET GT SCH (12:36)
--- NOTE | 2016-09-15 15:27 | NUR ---
SW was informed by dtr/DPOA (Reyna) that resident's medi-hernando needs renewing and asked if SW can take care of it. JOSSE was told by Reyna that she received a voice message regarding this. JOSES informed her that we do not take care of renewing the insurance and that the family is responsible for this. Encouraged her to call the number left on her voicemail if she should have any questions about the process.
[2016-09-15] MEDS: VALSARTAN 80 MG TABLET GT SCH (22:49)
[2016-09-16] VITALS (8 sets, daily range): BP systolic 96–118; BP diastolic 50–71
[2016-09-16] MEDS: ALBUTEROL FS 2.5 MG/3 ML VIAL.NEB NEB SCH ×4 (02:05→20:14)
[2016-09-16] MEDS: IPRATROPIUM NEB FS 0.5 MG/2.5 ML AMPUL.NEB IH SCH ×4 (02:05→20:14)
[2016-09-16] MEDS: GLYTROL 1,000 ML BAG GT PRN ×2 (05:37→23:44)
[2016-09-16] MEDS: LEVOTHYROXINE SODIUM 88 MCG TABLET GT SCH (05:58)
[2016-09-16] MEDS: BLOOD SUGAR DIAGNOSTIC 1 EACH STRIP IN SCH ×2 (05:58→18:11)
[2016-09-16] MEDS: PANTOPRAZOLE 40 MG/PACK PACK GT SCH (05:58)
[2016-09-16] MEDS: INSULIN REGULAR, HUMAN 100 UNIT/ML 3 ML VIAL SQ PRN (05:58)
[2016-09-16] MEDS: LABETALOL HCL (100MG) 100 MG TABLET GT SCH ×2 (09:00→21:03)
[2016-09-16] MEDS: MVI/MINERALS LIQUID (CEROVITE) GT SCH (09:27)
[2016-09-16] MEDS: LACTOBACILLUS RHAMNOSUS GG 1 EACH CAP.SPRINK GT SCH (09:27)
[2016-09-16] MEDS: OMEGA GT SCH ×3 (09:27→17:00)
[2016-09-16] MEDS: LEVETIRACETAM SOL (5 ML) 100 MG/ML UDC GT SCH ×2 (09:27→21:02)
[2016-09-16] MEDS: CARBOXYMETHYLCELLULOSE SODIUM 0.4 ML DROPERETTE EACHEYE SCH (09:27)
[2016-09-16] MEDS: PROSOURCE / PROSTAT (PYXIS) 30 ML UDC GT SCH (09:27)
[2016-09-16] MEDS: HYDROGEL DRESSING 90 GM TUBE TP SCH ×2 (09:28→21:03)
[2016-09-16] MEDS: ASCORBIC ACID 500 MG TABLET GT SCH (09:28)
[2016-09-16] MEDS: HYDROGEN PEROXIDE 480 ML BOTTLE TP SCH ×2 (09:28→21:03)
[2016-09-16] MEDS: COD LIVER OIL/ZINC OXIDE 120 GM TUBE TP SCH ×4 (09:28→21:03)
[2016-09-16] MEDS: CLOTRIMAZOLE 1% 15 GM TUBE TP SCH ×2 (09:28→21:03)
[2016-09-16] MEDS: CHOLESTYRAMINE/ASPARTAME 4 G/PKT PACKET GT SCH (13:00)
--- NOTE | 2016-09-16 13:42 | NUR ---
IDT meeting held, daughter Marielena Miller participated via telephone conference. reviewed current orders, medications and treatment. Family has no concerns, NNO, patient stable at this time,
[2016-09-16] MEDS: VALSARTAN 80 MG TABLET GT SCH (21:03)
[2016-09-17] VITALS (8 sets, daily range): BP systolic 102–122; BP diastolic 44–71
[2016-09-17] MEDS: IPRATROPIUM NEB FS 0.5 MG/2.5 ML AMPUL.NEB IH SCH ×4 (00:48→19:36)
[2016-09-17] MEDS: ALBUTEROL FS 2.5 MG/3 ML VIAL.NEB NEB SCH ×4 (00:48→19:36)
[2016-09-17] MEDS: BLOOD SUGAR DIAGNOSTIC 1 EACH STRIP IN SCH ×2 (05:33→17:14)
[2016-09-17] MEDS: PANTOPRAZOLE 40 MG/PACK PACK GT SCH (05:33)
[2016-09-17] MEDS: LEVOTHYROXINE SODIUM 88 MCG TABLET GT SCH (05:33)
[2016-09-17] MEDS: LABETALOL HCL (100MG) 100 MG TABLET GT SCH ×2 (09:00→21:05)
[2016-09-17] MEDS: LACTOBACILLUS RHAMNOSUS GG 1 EACH CAP.SPRINK GT SCH (09:32)
[2016-09-17] MEDS: PROSOURCE / PROSTAT (PYXIS) 30 ML UDC GT SCH (09:32)
[2016-09-17] MEDS: ASCORBIC ACID 500 MG TABLET GT SCH (09:32)
[2016-09-17] MEDS: MVI/MINERALS LIQUID (CEROVITE) GT SCH (09:32)
[2016-09-17] MEDS: LEVETIRACETAM SOL (5 ML) 100 MG/ML UDC GT SCH ×2 (09:32→21:05)
[2016-09-17] MEDS: CARBOXYMETHYLCELLULOSE SODIUM 0.4 ML DROPERETTE EACHEYE SCH (09:32)
[2016-09-17] MEDS: OMEGA GT SCH ×3 (09:32→16:53)
[2016-09-17] MEDS: CLOTRIMAZOLE 1% 15 GM TUBE TP SCH ×2 (09:33→21:05)
[2016-09-17] MEDS: COD LIVER OIL/ZINC OXIDE 120 GM TUBE TP SCH ×4 (09:33→21:05)
[2016-09-17] MEDS: HYDROGEL DRESSING 90 GM TUBE TP SCH ×2 (09:33→21:05)
[2016-09-17] MEDS: HYDROGEN PEROXIDE 480 ML BOTTLE TP SCH ×2 (09:33→21:05)
[2016-09-17] MEDS: CHOLESTYRAMINE/ASPARTAME 4 G/PKT PACKET GT SCH (12:50)
[2016-09-17] MEDS: VALSARTAN 80 MG TABLET GT SCH (21:05)
[2016-09-18] VITALS (7 sets, daily range): BP systolic 106–123; BP diastolic 52–69
[2016-09-18] MEDS: IPRATROPIUM NEB FS 0.5 MG/2.5 ML AMPUL.NEB IH SCH ×4 (00:59→20:19)
[2016-09-18] MEDS: ALBUTEROL FS 2.5 MG/3 ML VIAL.NEB NEB SCH ×4 (00:59→20:19)
[2016-09-18] MEDS: PANTOPRAZOLE 40 MG/PACK PACK GT SCH (05:38)
[2016-09-18] MEDS: BLOOD SUGAR DIAGNOSTIC 1 EACH STRIP IN SCH ×2 (05:38→18:05)
[2016-09-18] MEDS: LEVOTHYROXINE SODIUM 88 MCG TABLET GT SCH (05:38)
[2016-09-18] MEDS: CARBOXYMETHYLCELLULOSE SODIUM 0.4 ML DROPERETTE EACHEYE SCH (09:51)
[2016-09-18] MEDS: LEVETIRACETAM SOL (5 ML) 100 MG/ML UDC GT SCH ×2 (09:52→20:55)
[2016-09-18] MEDS: MVI/MINERALS LIQUID (CEROVITE) GT SCH (09:52)
[2016-09-18] MEDS: PROSOURCE / PROSTAT (PYXIS) 30 ML UDC GT SCH (09:52)
[2016-09-18] MEDS: LACTOBACILLUS RHAMNOSUS GG 1 EACH CAP.SPRINK GT SCH (09:52)
[2016-09-18] MEDS: OMEGA GT SCH ×3 (09:52→17:17)
[2016-09-18] MEDS: LABETALOL HCL (100MG) 100 MG TABLET GT SCH ×2 (09:52→20:56)
[2016-09-18] MEDS: ASCORBIC ACID 500 MG TABLET GT SCH (09:52)
[2016-09-18] MEDS: HYDROGEL DRESSING 90 GM TUBE TP SCH ×2 (09:52→20:56)
[2016-09-18] MEDS: HYDROGEN PEROXIDE 480 ML BOTTLE TP SCH ×2 (09:53→20:56)
[2016-09-18] MEDS: COD LIVER OIL/ZINC OXIDE 120 GM TUBE TP SCH ×4 (09:53→20:56)
[2016-09-18] MEDS: CLOTRIMAZOLE 1% 15 GM TUBE TP SCH ×2 (09:54→20:56)
[2016-09-18] MEDS: CHOLESTYRAMINE/ASPARTAME 4 G/PKT PACKET GT SCH (12:00)
[2016-09-18] MEDS: GLYTROL 1,000 ML BAG GT PRN (15:51)
[2016-09-18] MEDS: VALSARTAN 80 MG TABLET GT SCH (21:09)
[2016-09-19] VITALS (7 sets, daily range): BP systolic 98–124; BP diastolic 58–73
[2016-09-19] MEDS: IPRATROPIUM NEB FS 0.5 MG/2.5 ML AMPUL.NEB IH SCH ×4 (00:35→19:52)
[2016-09-19] MEDS: ALBUTEROL FS 2.5 MG/3 ML VIAL.NEB NEB SCH ×4 (00:35→19:52)
[2016-09-19] MEDS: PANTOPRAZOLE 40 MG/PACK PACK GT SCH (05:41)
[2016-09-19] MEDS: BLOOD SUGAR DIAGNOSTIC 1 EACH STRIP IN SCH ×2 (05:41→17:44)
[2016-09-19] MEDS: LEVOTHYROXINE SODIUM 88 MCG TABLET GT SCH (05:41)
[2016-09-19] MEDS: OMEGA GT SCH ×3 (09:57→17:44)
[2016-09-19] MEDS: CARBOXYMETHYLCELLULOSE SODIUM 0.4 ML DROPERETTE EACHEYE SCH (09:57)
[2016-09-19] MEDS: LEVETIRACETAM SOL (5 ML) 100 MG/ML UDC GT SCH ×2 (09:57→21:28)
[2016-09-19] MEDS: PROSOURCE / PROSTAT (PYXIS) 30 ML UDC GT SCH (09:57)
[2016-09-19] MEDS: MVI/MINERALS LIQUID (CEROVITE) GT SCH (09:57)
[2016-09-19] MEDS: LACTOBACILLUS RHAMNOSUS GG 1 EACH CAP.SPRINK GT SCH (09:57)
[2016-09-19] MEDS: ASCORBIC ACID 500 MG TABLET GT SCH (09:58)
[2016-09-19] MEDS: LABETALOL HCL (100MG) 100 MG TABLET GT SCH ×2 (09:58→21:00)
[2016-09-19] MEDS: CLOTRIMAZOLE 1% 15 GM TUBE TP SCH ×2 (10:45→21:29)
--- NOTE | 2016-09-19 11:09 | NUR ---
KATARINAO contacted JOSSE who stated that he called dtr Dyana to inform her that they need to meet in person to discuss decisions to be made by the DPOA. He stated that Dyana told him that she was going to be busy for the next two weeks but he insisted to her that this was important and that she needs to make time to come in and see him. He stated that this was a courtesy call to her and that DPOA is the decision maker. Dyana informed him that she will let the SW know about when she can come in to meet with him. Informed DPOA of the above information and will follow up with Dyana to see when she is able to meet.
[2016-09-19] MEDS: HYDROGEN PEROXIDE 480 ML BOTTLE TP SCH ×2 (11:45→21:29)
[2016-09-19] MEDS: COD LIVER OIL/ZINC OXIDE 120 GM TUBE TP SCH ×4 (11:45→21:29)
[2016-09-19] MEDS: HYDROGEL DRESSING 90 GM TUBE TP SCH ×2 (11:45→21:29)
[2016-09-19] MEDS: CHOLESTYRAMINE/ASPARTAME 4 G/PKT PACKET GT SCH (12:00)
[2016-09-19] MEDS: GLYTROL 1,000 ML BAG GT PRN (12:54)
--- NOTE | 2016-09-19 21:00 | NUR ---
RN NOTES Noted pt with redness to right and left underarm redness. Received new order from Dr. Ramirez, noted and carried out. Daughter at bedside and made aware of new order.
[2016-09-19] MEDS: VALSARTAN 80 MG TABLET GT SCH (21:30)
[2016-09-20] VITALS (7 sets, daily range): BP systolic 112–133; BP diastolic 59–66
[2016-09-20] MEDS: ALBUTEROL FS 2.5 MG/3 ML VIAL.NEB NEB SCH ×4 (00:47→19:55)
[2016-09-20] MEDS: IPRATROPIUM NEB FS 0.5 MG/2.5 ML AMPUL.NEB IH SCH ×4 (00:47→19:55)
[2016-09-20] MEDS: LEVOTHYROXINE SODIUM 88 MCG TABLET GT SCH (06:11)
[2016-09-20] MEDS: BLOOD SUGAR DIAGNOSTIC 1 EACH STRIP IN SCH ×2 (06:11→17:35)
[2016-09-20] MEDS: PANTOPRAZOLE 40 MG/PACK PACK GT SCH (06:11)
[2016-09-20] MEDS: LABETALOL HCL (100MG) 100 MG TABLET GT SCH ×2 (08:51→21:15)
[2016-09-20] MEDS: ASCORBIC ACID 500 MG TABLET GT SCH (08:51)
[2016-09-20] MEDS: LEVETIRACETAM SOL (5 ML) 100 MG/ML UDC GT SCH ×2 (08:51→21:15)
[2016-09-20] MEDS: PROSOURCE / PROSTAT (PYXIS) 30 ML UDC GT SCH (08:51)
[2016-09-20] MEDS: CARBOXYMETHYLCELLULOSE SODIUM 0.4 ML DROPERETTE EACHEYE SCH (08:51)
[2016-09-20] MEDS: MVI/MINERALS LIQUID (CEROVITE) GT SCH (08:51)
[2016-09-20] MEDS: LACTOBACILLUS RHAMNOSUS GG 1 EACH CAP.SPRINK GT SCH (08:51)
[2016-09-20] MEDS: OMEGA GT SCH ×3 (08:51→16:53)
[2016-09-20] MEDS: GLYTROL 1,000 ML BAG GT PRN (11:44)
[2016-09-20] MEDS: CHOLESTYRAMINE/ASPARTAME 4 G/PKT PACKET GT SCH (11:47)
[2016-09-20] MEDS: HYDROGEN PEROXIDE 480 ML BOTTLE TP SCH ×2 (14:30→21:15)
[2016-09-20] MEDS: HYDROGEL DRESSING 90 GM TUBE TP SCH ×2 (14:30→21:15)
[2016-09-20] MEDS: NYSTATIN TOP POWDER 15 GM BOTTLE TP SCH ×4 (14:30→21:16)
[2016-09-20] MEDS: CLOTRIMAZOLE 1% 15 GM TUBE TP SCH ×2 (14:30→21:15)
[2016-09-20] MEDS: COD LIVER OIL/ZINC OXIDE 120 GM TUBE TP SCH ×4 (14:30→21:15)
[2016-09-20] MEDS: VALSARTAN 80 MG TABLET GT SCH (21:17)
[2016-09-21] VITALS (7 sets, daily range): BP systolic 96–119; BP diastolic 51–64
[2016-09-21] MEDS: IPRATROPIUM NEB FS 0.5 MG/2.5 ML AMPUL.NEB IH SCH ×4 (01:48→19:43)
[2016-09-21] MEDS: ALBUTEROL FS 2.5 MG/3 ML VIAL.NEB NEB SCH ×4 (01:48→19:43)
[2016-09-21] MEDS: PANTOPRAZOLE 40 MG/PACK PACK GT SCH (06:05)
[2016-09-21] MEDS: LEVOTHYROXINE SODIUM 88 MCG TABLET GT SCH (06:06)
[2016-09-21] MEDS: BLOOD SUGAR DIAGNOSTIC 1 EACH STRIP IN SCH ×2 (06:06→17:40)
[2016-09-21] MEDS: LACTOBACILLUS RHAMNOSUS GG 1 EACH CAP.SPRINK GT SCH (08:46)
[2016-09-21] MEDS: LEVETIRACETAM SOL (5 ML) 100 MG/ML UDC GT SCH ×2 (08:46→20:52)
[2016-09-21] MEDS: LABETALOL HCL (100MG) 100 MG TABLET GT SCH ×2 (08:46→20:53)
[2016-09-21] MEDS: PROSOURCE / PROSTAT (PYXIS) 30 ML UDC GT SCH (08:46)
[2016-09-21] MEDS: CARBOXYMETHYLCELLULOSE SODIUM 0.4 ML DROPERETTE EACHEYE SCH (08:46)
[2016-09-21] MEDS: OMEGA GT SCH ×3 (08:46→16:34)
[2016-09-21] MEDS: MVI/MINERALS LIQUID (CEROVITE) GT SCH (08:46)
[2016-09-21] MEDS: HYDROGEL DRESSING 90 GM TUBE TP SCH ×2 (08:47→21:55)
[2016-09-21] MEDS: HYDROGEN PEROXIDE 480 ML BOTTLE TP SCH ×2 (08:47→21:55)
[2016-09-21] MEDS: ASCORBIC ACID 500 MG TABLET GT SCH (08:47)
[2016-09-21] MEDS: CLOTRIMAZOLE 1% 15 GM TUBE TP SCH ×2 (08:47→21:55)
[2016-09-21] MEDS: COD LIVER OIL/ZINC OXIDE 120 GM TUBE TP SCH ×4 (08:47→21:55)
[2016-09-21] MEDS: hydrALAZINE HCL 10 MG TABLET GT PRN ×3 (08:48→16:34)
[2016-09-21] MEDS: NYSTATIN TOP POWDER 15 GM BOTTLE TP SCH ×4 (12:10→21:55)
[2016-09-21] MEDS: CHOLESTYRAMINE/ASPARTAME 4 G/PKT PACKET GT SCH (12:11)
[2016-09-21] MEDS: GLYTROL 1,000 ML BAG GT PRN (12:11)
[2016-09-21] MEDS: INSULIN REGULAR, HUMAN 100 UNIT/ML 3 ML VIAL SQ PRN (17:40)
[2016-09-21] MEDS: VALSARTAN 80 MG TABLET GT SCH (22:06)
[2016-09-22] VITALS (8 sets, daily range): BP systolic 105–133; BP diastolic 52–71
[2016-09-22] MEDS: ALBUTEROL FS 2.5 MG/3 ML VIAL.NEB NEB SCH ×4 (02:14→20:10)
[2016-09-22] MEDS: IPRATROPIUM NEB FS 0.5 MG/2.5 ML AMPUL.NEB IH SCH ×4 (02:14→20:10)
[2016-09-22] MEDS: BLOOD SUGAR DIAGNOSTIC 1 EACH STRIP IN SCH ×2 (06:11→18:06)
[2016-09-22] MEDS: LEVOTHYROXINE SODIUM 88 MCG TABLET GT SCH (06:11)
[2016-09-22] MEDS: PANTOPRAZOLE 40 MG/PACK PACK GT SCH (06:11)
[2016-09-22] MEDS: GLYTROL 1,000 ML BAG GT PRN (06:11)
[2016-09-22] MEDS: INSULIN REGULAR, HUMAN 100 UNIT/ML 3 ML VIAL SQ PRN (06:12)
[2016-09-22] MEDS: LABETALOL HCL (100MG) 100 MG TABLET GT SCH ×2 (09:00→21:07)
[2016-09-22] MEDS: MVI/MINERALS LIQUID (CEROVITE) GT SCH (09:29)
[2016-09-22] MEDS: COD LIVER OIL/ZINC OXIDE 120 GM TUBE TP SCH ×4 (09:29→21:08)
[2016-09-22] MEDS: OMEGA GT SCH ×3 (09:29→17:00)
[2016-09-22] MEDS: LEVETIRACETAM SOL (5 ML) 100 MG/ML UDC GT SCH ×2 (09:29→21:07)
[2016-09-22] MEDS: PROSOURCE / PROSTAT (PYXIS) 30 ML UDC GT SCH (09:29)
[2016-09-22] MEDS: ASCORBIC ACID 500 MG TABLET GT SCH (09:29)
[2016-09-22] MEDS: LACTOBACILLUS RHAMNOSUS GG 1 EACH CAP.SPRINK GT SCH (09:29)
[2016-09-22] MEDS: CARBOXYMETHYLCELLULOSE SODIUM 0.4 ML DROPERETTE EACHEYE SCH (09:29)
[2016-09-22] MEDS: HYDROGEL DRESSING 90 GM TUBE TP SCH ×2 (09:29→21:07)
[2016-09-22] MEDS: CLOTRIMAZOLE 1% 15 GM TUBE TP SCH ×2 (09:30→21:08)
[2016-09-22] MEDS: HYDROGEN PEROXIDE 480 ML BOTTLE TP SCH ×2 (09:30→21:08)
[2016-09-22] MEDS: CHOLESTYRAMINE/ASPARTAME 4 G/PKT PACKET GT SCH (12:00)
--- NOTE | 2016-09-22 12:13 | NUR ---
CNO met with resident's daughters Maddy, Marah, and Dyana. CNO informed them that CINDY Orellana (their sister) was requesting to put the resident on hospice. CNO discussed what hospice considers and sisters are not in agreement. They stated that they were confused when they found out that DPOA wanted to take this route. CNO stated that DPMYLA has been wanting to move forward with hospice care. Sisters stated that DPOA has not informed them of any of her plans, as they do not get along and do not speak to one another. They described various experiences in the past in which they have engaged in arguments with each other. CNO informed him that he was meeting with them as a courtesy and that DPOA had wanted him to share what her wishes are with them. Maddy stated that she used to be the DPOA for the resident until current DPOA had resident sign over power of assistant city attorney. They noted only asset is resident's apartment which the DPOA is unable to get, as sister is on the title. The resident's daughters came to the consensus that they want to be notified if resident is moved to hospice with daughter Dyana suggesting to Maddy and Marah that they contest the DPOA in court. JOSSE spoke to CINDY Orellana and notified her that CNO met with her sisters. She informed her that they want to be notified if resident is taken out of subacute and she stated that the only option she see's right now is talking with the oil truck driver and taking her home to pass. She stated that JOSSE has permission to notify her sisters Maddy ([phone]), Marah ([phone]), and Dyana ([phone]) if resident is moved out of subacute. ILANMYLA Orellana stated that she will speak with PADMA Escalante later today.
[2016-09-22] MEDS: NYSTATIN TOP POWDER 15 GM BOTTLE TP SCH ×4 (17:00→21:08)
[2016-09-22] MEDS: VALSARTAN 80 MG TABLET GT SCH (22:00)
[2016-09-23] VITALS (7 sets, daily range): BP systolic 103–144; BP diastolic 53–73
[2016-09-23] MEDS: ALBUTEROL FS 2.5 MG/3 ML VIAL.NEB NEB SCH ×4 (01:30→19:58)
[2016-09-23] MEDS: IPRATROPIUM NEB FS 0.5 MG/2.5 ML AMPUL.NEB IH SCH ×4 (01:30→19:58)
[2016-09-23] MEDS: LEVOTHYROXINE SODIUM 88 MCG TABLET GT SCH (05:45)
[2016-09-23] MEDS: PANTOPRAZOLE 40 MG/PACK PACK GT SCH (05:45)
[2016-09-23] MEDS: BLOOD SUGAR DIAGNOSTIC 1 EACH STRIP IN SCH ×2 (05:45→18:32)
[2016-09-23] MEDS: GLYTROL 1,000 ML BAG GT PRN (05:46)
[2016-09-23] MEDS: INSULIN REGULAR, HUMAN 100 UNIT/ML 3 ML VIAL SQ PRN (05:47)
[2016-09-23] MEDS: OMEGA GT SCH ×3 (08:53→17:00)
[2016-09-23] MEDS: LEVETIRACETAM SOL (5 ML) 100 MG/ML UDC GT SCH ×2 (08:53→20:49)
[2016-09-23] MEDS: PROSOURCE / PROSTAT (PYXIS) 30 ML UDC GT SCH (08:53)
[2016-09-23] MEDS: CARBOXYMETHYLCELLULOSE SODIUM 0.4 ML DROPERETTE EACHEYE SCH (08:53)
[2016-09-23] MEDS: MVI/MINERALS LIQUID (CEROVITE) GT SCH (08:53)
[2016-09-23] MEDS: LACTOBACILLUS RHAMNOSUS GG 1 EACH CAP.SPRINK GT SCH (08:53)
[2016-09-23] MEDS: ASCORBIC ACID 500 MG TABLET GT SCH (08:54)
[2016-09-23] MEDS: LABETALOL HCL (100MG) 100 MG TABLET GT SCH ×2 (08:54→20:49)
[2016-09-23] MEDS: CHOLESTYRAMINE/ASPARTAME 4 G/PKT PACKET GT SCH (12:41)
[2016-09-23] MEDS: NYSTATIN TOP POWDER 15 GM BOTTLE TP SCH ×4 (15:00→20:49)
[2016-09-23] MEDS: HYDROGEN PEROXIDE 480 ML BOTTLE TP SCH ×2 (15:00→20:49)
[2016-09-23] MEDS: CLOTRIMAZOLE 1% 15 GM TUBE TP SCH ×2 (15:00→20:49)
[2016-09-23] MEDS: HYDROGEL DRESSING 90 GM TUBE TP SCH ×2 (15:00→20:49)
[2016-09-23] MEDS: COD LIVER OIL/ZINC OXIDE 120 GM TUBE TP SCH ×4 (15:00→20:49)
[2016-09-23] MEDS: VALSARTAN 80 MG TABLET GT SCH (22:00)
[2016-09-24] VITALS (8 sets, daily range): BP systolic 107–124; BP diastolic 57–78
[2016-09-24] MEDS: ALBUTEROL FS 2.5 MG/3 ML VIAL.NEB NEB SCH ×4 (02:11→19:30)
[2016-09-24] MEDS: IPRATROPIUM NEB FS 0.5 MG/2.5 ML AMPUL.NEB IH SCH ×4 (02:11→19:30)
[2016-09-24] MEDS: LEVOTHYROXINE SODIUM 88 MCG TABLET GT SCH (05:30)
[2016-09-24] MEDS: BLOOD SUGAR DIAGNOSTIC 1 EACH STRIP IN SCH ×2 (05:30→17:21)
[2016-09-24] MEDS: INSULIN REGULAR, HUMAN 100 UNIT/ML 3 ML VIAL SQ PRN (05:30)
[2016-09-24] MEDS: PANTOPRAZOLE 40 MG/PACK PACK GT SCH (05:30)
[2016-09-24] MEDS: GLYTROL 1,000 ML BAG GT PRN (05:31)
[2016-09-24] MEDS: CARBOXYMETHYLCELLULOSE SODIUM 0.4 ML DROPERETTE EACHEYE SCH (08:28)
[2016-09-24] MEDS: ASCORBIC ACID 500 MG TABLET GT SCH (08:29)
[2016-09-24] MEDS: PROSOURCE / PROSTAT (PYXIS) 30 ML UDC GT SCH (08:29)
[2016-09-24] MEDS: LEVETIRACETAM SOL (5 ML) 100 MG/ML UDC GT SCH ×2 (08:29→21:06)
[2016-09-24] MEDS: OMEGA GT SCH ×3 (08:29→17:21)
[2016-09-24] MEDS: LABETALOL HCL (100MG) 100 MG TABLET GT SCH ×2 (08:29→21:06)
[2016-09-24] MEDS: MVI/MINERALS LIQUID (CEROVITE) GT SCH (08:29)
[2016-09-24] MEDS: LACTOBACILLUS RHAMNOSUS GG 1 EACH CAP.SPRINK GT SCH (08:29)
[2016-09-24] MEDS: HYDROGEN PEROXIDE 480 ML BOTTLE TP SCH ×2 (09:00→21:06)
[2016-09-24] MEDS: HYDROGEL DRESSING 90 GM TUBE TP SCH ×2 (09:00→21:06)
[2016-09-24] MEDS: NYSTATIN TOP POWDER 15 GM BOTTLE TP SCH ×4 (09:00→21:07)
[2016-09-24] MEDS: COD LIVER OIL/ZINC OXIDE 120 GM TUBE TP SCH ×4 (09:00→21:06)
[2016-09-24] MEDS: CLOTRIMAZOLE 1% 15 GM TUBE TP SCH ×2 (09:00→21:06)
[2016-09-24] MEDS: CHOLESTYRAMINE/ASPARTAME 4 G/PKT PACKET GT SCH (12:00)
[2016-09-24] MEDS: VALSARTAN 80 MG TABLET GT SCH (21:07)
[2016-09-25] VITALS (7 sets, daily range): BP systolic 103–124; BP diastolic 58–82
[2016-09-25] MEDS: ALBUTEROL FS 2.5 MG/3 ML VIAL.NEB NEB SCH ×4 (02:12→20:50)
[2016-09-25] MEDS: IPRATROPIUM NEB FS 0.5 MG/2.5 ML AMPUL.NEB IH SCH ×4 (02:12→20:50)
[2016-09-25] MEDS: LEVOTHYROXINE SODIUM 88 MCG TABLET GT SCH (05:23)
[2016-09-25] MEDS: PANTOPRAZOLE 40 MG/PACK PACK GT SCH (05:23)
[2016-09-25] MEDS: BLOOD SUGAR DIAGNOSTIC 1 EACH STRIP IN SCH ×2 (05:23→17:20)
[2016-09-25] MEDS: GLYTROL 1,000 ML BAG GT PRN (05:23)
[2016-09-25] MEDS: LACTOBACILLUS RHAMNOSUS GG 1 EACH CAP.SPRINK GT SCH (08:45)
[2016-09-25] MEDS: PROSOURCE / PROSTAT (PYXIS) 30 ML UDC GT SCH (08:45)
[2016-09-25] MEDS: LEVETIRACETAM SOL (5 ML) 100 MG/ML UDC GT SCH ×2 (08:45→20:32)
[2016-09-25] MEDS: OMEGA GT SCH ×3 (08:45→16:37)
[2016-09-25] MEDS: MVI/MINERALS LIQUID (CEROVITE) GT SCH (08:45)
[2016-09-25] MEDS: LABETALOL HCL (100MG) 100 MG TABLET GT SCH ×2 (08:46→20:31)
[2016-09-25] MEDS: ASCORBIC ACID 500 MG TABLET GT SCH (08:48)
[2016-09-25] MEDS: NYSTATIN TOP POWDER 15 GM BOTTLE TP SCH ×4 (09:00→20:37)
[2016-09-25] MEDS: COD LIVER OIL/ZINC OXIDE 120 GM TUBE TP SCH ×4 (09:00→20:36)
[2016-09-25] MEDS: CARBOXYMETHYLCELLULOSE SODIUM 0.4 ML DROPERETTE EACHEYE SCH (09:00)
[2016-09-25] MEDS: CLOTRIMAZOLE 1% 15 GM TUBE TP SCH ×2 (09:00→20:36)
[2016-09-25] MEDS: HYDROGEL DRESSING 90 GM TUBE TP SCH ×2 (09:00→20:33)
[2016-09-25] MEDS: HYDROGEN PEROXIDE 480 ML BOTTLE TP SCH ×2 (09:00→20:36)
[2016-09-25] MEDS: CHOLESTYRAMINE/ASPARTAME 4 G/PKT PACKET GT SCH (12:00)
[2016-09-25] MEDS: VALSARTAN 80 MG TABLET GT SCH (21:58)
[2016-09-26] VITALS (7 sets, daily range): BP systolic 109–150; BP diastolic 66–80
[2016-09-26] MEDS: GLYTROL 1,000 ML BAG GT PRN (01:14)
[2016-09-26] MEDS: IPRATROPIUM NEB FS 0.5 MG/2.5 ML AMPUL.NEB IH SCH ×4 (01:19→19:30)
[2016-09-26] MEDS: ALBUTEROL FS 2.5 MG/3 ML VIAL.NEB NEB SCH ×4 (01:19→19:30)
[2016-09-26] MEDS: LEVOTHYROXINE SODIUM 88 MCG TABLET GT SCH (05:51)
[2016-09-26] MEDS: PANTOPRAZOLE 40 MG/PACK PACK GT SCH (05:51)
[2016-09-26] MEDS: BLOOD SUGAR DIAGNOSTIC 1 EACH STRIP IN SCH ×2 (05:51→18:22)
[2016-09-26] MEDS: CLOTRIMAZOLE 1% 15 GM TUBE TP SCH ×2 (09:00→20:37)
[2016-09-26] MEDS: COD LIVER OIL/ZINC OXIDE 120 GM TUBE TP SCH ×4 (09:00→20:37)
[2016-09-26] MEDS: HYDROGEN PEROXIDE 480 ML BOTTLE TP SCH ×2 (09:00→20:37)
[2016-09-26] MEDS: HYDROGEL DRESSING 90 GM TUBE TP SCH ×2 (09:00→20:37)
[2016-09-26] MEDS: NYSTATIN TOP POWDER 15 GM BOTTLE TP SCH ×4 (09:00→20:37)
[2016-09-26] MEDS: LABETALOL HCL (100MG) 100 MG TABLET GT SCH ×2 (09:08→20:36)
[2016-09-26] MEDS: LACTOBACILLUS RHAMNOSUS GG 1 EACH CAP.SPRINK GT SCH (09:08)
[2016-09-26] MEDS: CARBOXYMETHYLCELLULOSE SODIUM 0.4 ML DROPERETTE EACHEYE SCH (09:08)
[2016-09-26] MEDS: LEVETIRACETAM SOL (5 ML) 100 MG/ML UDC GT SCH ×2 (09:08→20:36)
[2016-09-26] MEDS: MVI/MINERALS LIQUID (CEROVITE) GT SCH (09:08)
[2016-09-26] MEDS: OMEGA GT SCH ×3 (09:08→17:38)
[2016-09-26] MEDS: PROSOURCE / PROSTAT (PYXIS) 30 ML UDC GT SCH (09:08)
[2016-09-26] MEDS: ASCORBIC ACID 500 MG TABLET GT SCH (09:08)
[2016-09-26] MEDS: CHOLESTYRAMINE/ASPARTAME 4 G/PKT PACKET GT SCH (12:00)
[2016-09-26] MEDS: INSULIN REGULAR, HUMAN 100 UNIT/ML 3 ML VIAL SQ PRN (18:22)
[2016-09-26] MEDS: VALSARTAN 80 MG TABLET GT SCH (22:27)
[2016-09-27] VITALS (7 sets, daily range): BP systolic 96–122; BP diastolic 51–74
[2016-09-27] MEDS: ALBUTEROL FS 2.5 MG/3 ML VIAL.NEB NEB SCH ×4 (01:54→19:30)
[2016-09-27] MEDS: IPRATROPIUM NEB FS 0.5 MG/2.5 ML AMPUL.NEB IH SCH ×4 (01:54→19:30)
[2016-09-27] MEDS: GLYTROL 1,000 ML BAG GT PRN (03:28)
[2016-09-27] MEDS: BLOOD SUGAR DIAGNOSTIC 1 EACH STRIP IN SCH ×2 (05:42→18:38)
[2016-09-27] MEDS: LEVOTHYROXINE SODIUM 88 MCG TABLET GT SCH (05:42)
[2016-09-27] MEDS: PANTOPRAZOLE 40 MG/PACK PACK GT SCH (05:42)
[2016-09-27] MEDS: NYSTATIN TOP POWDER 15 GM BOTTLE TP SCH ×4 (09:00→20:42)
[2016-09-27] MEDS: CLOTRIMAZOLE 1% 15 GM TUBE TP SCH ×2 (09:00→20:42)
[2016-09-27] MEDS: HYDROGEN PEROXIDE 480 ML BOTTLE TP SCH ×2 (09:00→20:42)
[2016-09-27] MEDS: MVI/MINERALS LIQUID (CEROVITE) GT SCH (09:58)
[2016-09-27] MEDS: OMEGA GT SCH ×3 (09:58→17:00)
[2016-09-27] MEDS: LACTOBACILLUS RHAMNOSUS GG 1 EACH CAP.SPRINK GT SCH (09:58)
[2016-09-27] MEDS: CARBOXYMETHYLCELLULOSE SODIUM 0.4 ML DROPERETTE EACHEYE SCH (09:58)
[2016-09-27] MEDS: LEVETIRACETAM SOL (5 ML) 100 MG/ML UDC GT SCH ×2 (09:58→20:40)
[2016-09-27] MEDS: LABETALOL HCL (100MG) 100 MG TABLET GT SCH ×2 (09:59→20:41)
[2016-09-27] MEDS: ASCORBIC ACID 500 MG TABLET GT SCH (09:59)
[2016-09-27] MEDS: COD LIVER OIL/ZINC OXIDE 120 GM TUBE TP SCH ×4 (09:59→20:42)
[2016-09-27] MEDS: HYDROGEL DRESSING 90 GM TUBE TP SCH ×2 (09:59→20:41)
[2016-09-27] MEDS: PROSOURCE / PROSTAT (PYXIS) 30 ML UDC GT SCH (09:59)
[2016-09-27] MEDS: CHOLESTYRAMINE/ASPARTAME 4 G/PKT PACKET GT SCH (12:41)
[2016-09-27] MEDS: INSULIN REGULAR, HUMAN 100 UNIT/ML 3 ML VIAL SQ PRN (18:39)
[2016-09-27] MEDS: VALSARTAN 80 MG TABLET GT SCH (21:40)
[2016-09-28] VITALS (7 sets, daily range): BP systolic 101–134; BP diastolic 65–75
[2016-09-28] MEDS: GLYTROL 1,000 ML BAG GT PRN ×2 (00:11→20:57)
[2016-09-28] MEDS: ALBUTEROL FS 2.5 MG/3 ML VIAL.NEB NEB SCH ×4 (01:32→19:19)
[2016-09-28] MEDS: IPRATROPIUM NEB FS 0.5 MG/2.5 ML AMPUL.NEB IH SCH ×4 (01:32→19:19)
[2016-09-28] MEDS: PANTOPRAZOLE 40 MG/PACK PACK GT SCH (05:30)
[2016-09-28] MEDS: BLOOD SUGAR DIAGNOSTIC 1 EACH STRIP IN SCH ×2 (05:30→17:53)
[2016-09-28] MEDS: LEVOTHYROXINE SODIUM 88 MCG TABLET GT SCH (05:30)
[2016-09-28] MEDS: LABETALOL HCL (100MG) 100 MG TABLET GT SCH ×2 (09:00→20:48)
[2016-09-28] MEDS: CARBOXYMETHYLCELLULOSE SODIUM 0.4 ML DROPERETTE EACHEYE SCH (09:07)
[2016-09-28] MEDS: PROSOURCE / PROSTAT (PYXIS) 30 ML UDC GT SCH (09:07)
[2016-09-28] MEDS: OMEGA GT SCH ×3 (09:07→17:09)
[2016-09-28] MEDS: LACTOBACILLUS RHAMNOSUS GG 1 EACH CAP.SPRINK GT SCH (09:07)
[2016-09-28] MEDS: LEVETIRACETAM SOL (5 ML) 100 MG/ML UDC GT SCH ×2 (09:07→20:47)
[2016-09-28] MEDS: MVI/MINERALS LIQUID (CEROVITE) GT SCH (09:07)
[2016-09-28] MEDS: HYDROGEN PEROXIDE 480 ML BOTTLE TP SCH ×2 (09:08→20:48)
[2016-09-28] MEDS: CLOTRIMAZOLE 1% 15 GM TUBE TP SCH ×2 (09:08→20:48)
[2016-09-28] MEDS: HYDROGEL DRESSING 90 GM TUBE TP SCH ×2 (09:08→20:48)
[2016-09-28] MEDS: ASCORBIC ACID 500 MG TABLET GT SCH (09:08)
[2016-09-28] MEDS: COD LIVER OIL/ZINC OXIDE 120 GM TUBE TP SCH ×4 (09:08→20:48)
[2016-09-28] MEDS: NYSTATIN TOP POWDER 15 GM BOTTLE TP SCH ×4 (09:08→20:48)
[2016-09-28] MEDS: CHOLESTYRAMINE/ASPARTAME 4 G/PKT PACKET GT SCH (12:54)
[2016-09-28] MEDS: VALSARTAN 80 MG TABLET GT SCH (22:11)
[2016-09-29] VITALS (8 sets, daily range): BP systolic 105–126; BP diastolic 53–89
[2016-09-29] MEDS: ALBUTEROL FS 2.5 MG/3 ML VIAL.NEB NEB SCH ×4 (02:22→19:12)
[2016-09-29] MEDS: IPRATROPIUM NEB FS 0.5 MG/2.5 ML AMPUL.NEB IH SCH ×4 (02:22→19:12)
[2016-09-29] MEDS: BLOOD SUGAR DIAGNOSTIC 1 EACH STRIP IN SCH ×2 (05:26→17:49)
[2016-09-29] MEDS: PANTOPRAZOLE 40 MG/PACK PACK GT SCH (05:26)
[2016-09-29] MEDS: LEVOTHYROXINE SODIUM 88 MCG TABLET GT SCH (05:26)
[2016-09-29] MEDS: INSULIN REGULAR, HUMAN 100 UNIT/ML 3 ML VIAL SQ PRN (05:27)
[2016-09-29] MEDS: ASCORBIC ACID 500 MG TABLET GT SCH (09:00)
[2016-09-29] MEDS: LABETALOL HCL (100MG) 100 MG TABLET GT SCH ×2 (09:00→21:36)
[2016-09-29] MEDS: LEVETIRACETAM SOL (5 ML) 100 MG/ML UDC GT SCH ×2 (09:00→21:35)
[2016-09-29] MEDS: HYDROGEN PEROXIDE 480 ML BOTTLE TP SCH ×2 (09:00→21:36)
[2016-09-29] MEDS: LACTOBACILLUS RHAMNOSUS GG 1 EACH CAP.SPRINK GT SCH (09:00)
[2016-09-29] MEDS: CLOTRIMAZOLE 1% 15 GM TUBE TP SCH ×2 (09:00→21:36)
[2016-09-29] MEDS: MVI/MINERALS LIQUID (CEROVITE) GT SCH (09:00)
[2016-09-29] MEDS: CARBOXYMETHYLCELLULOSE SODIUM 0.4 ML DROPERETTE EACHEYE SCH (09:00)
[2016-09-29] MEDS: HYDROGEL DRESSING 90 GM TUBE TP SCH ×2 (09:00→21:36)
[2016-09-29] MEDS: OMEGA GT SCH ×3 (09:00→17:49)
[2016-09-29] MEDS: COD LIVER OIL/ZINC OXIDE 120 GM TUBE TP SCH ×4 (09:00→21:36)
[2016-09-29] MEDS: PROSOURCE / PROSTAT (PYXIS) 30 ML UDC GT SCH (09:00)
[2016-09-29] MEDS: NYSTATIN TOP POWDER 15 GM BOTTLE TP SCH ×4 (09:00→21:36)
[2016-09-29] MEDS: CHOLESTYRAMINE/ASPARTAME 4 G/PKT PACKET GT SCH (12:00)
[2016-09-29] MEDS: GLYTROL 1,000 ML BAG GT PRN (17:00)
[2016-09-29] MEDS: VALSARTAN 80 MG TABLET GT SCH (22:00)
[2016-09-30] VITALS (8 sets, daily range): BP systolic 100–126; BP diastolic 57–78
[2016-09-30] MEDS: ALBUTEROL FS 2.5 MG/3 ML VIAL.NEB NEB SCH ×4 (01:41→19:35)
[2016-09-30] MEDS: IPRATROPIUM NEB FS 0.5 MG/2.5 ML AMPUL.NEB IH SCH ×4 (01:41→19:35)
[2016-09-30] MEDS: INSULIN REGULAR, HUMAN 100 UNIT/ML 3 ML VIAL SQ PRN ×2 (06:06→17:05)
[2016-09-30] MEDS: BLOOD SUGAR DIAGNOSTIC 1 EACH STRIP IN SCH ×2 (06:06→17:01)
[2016-09-30] MEDS: LEVOTHYROXINE SODIUM 88 MCG TABLET GT SCH (06:06)
[2016-09-30] MEDS: PANTOPRAZOLE 40 MG/PACK PACK GT SCH (06:06)
[2016-09-30] MEDS: LABETALOL HCL (100MG) 100 MG TABLET GT SCH ×2 (08:51→21:13)
[2016-09-30] MEDS: MVI/MINERALS LIQUID (CEROVITE) GT SCH (08:51)
[2016-09-30] MEDS: LACTOBACILLUS RHAMNOSUS GG 1 EACH CAP.SPRINK GT SCH (08:51)
[2016-09-30] MEDS: PROSOURCE / PROSTAT (PYXIS) 30 ML UDC GT SCH (08:51)
[2016-09-30] MEDS: OMEGA GT SCH ×3 (08:51→16:50)
[2016-09-30] MEDS: CARBOXYMETHYLCELLULOSE SODIUM 0.4 ML DROPERETTE EACHEYE SCH (08:51)
[2016-09-30] MEDS: LEVETIRACETAM SOL (5 ML) 100 MG/ML UDC GT SCH ×2 (08:51→21:13)
[2016-09-30] MEDS: ASCORBIC ACID 500 MG TABLET GT SCH (08:52)
[2016-09-30] MEDS: hydrALAZINE HCL 10 MG TABLET GT PRN ×3 (08:52→17:01)
[2016-09-30] MEDS: HYDROGEN PEROXIDE 480 ML BOTTLE TP SCH ×2 (09:00→21:14)
[2016-09-30] MEDS: COD LIVER OIL/ZINC OXIDE 120 GM TUBE TP SCH ×4 (09:00→21:14)
[2016-09-30] MEDS: NYSTATIN TOP POWDER 15 GM BOTTLE TP SCH ×4 (09:00→21:14)
[2016-09-30] MEDS: CLOTRIMAZOLE 1% 15 GM TUBE TP SCH ×2 (09:00→21:14)
[2016-09-30] MEDS: HYDROGEL DRESSING 90 GM TUBE TP SCH ×2 (09:00→21:13)
[2016-09-30] MEDS: CHOLESTYRAMINE/ASPARTAME 4 G/PKT PACKET GT SCH (12:26)
[2016-09-30] MEDS: GLYTROL 1,000 ML BAG GT PRN (12:27)
[2016-09-30] MEDS: VALSARTAN 80 MG TABLET GT SCH (22:00)
[2016-10-01] MEDS: IPRATROPIUM NEB FS 0.5 MG/2.5 ML AMPUL.NEB IH SCH ×4 (00:28→19:26)
[2016-10-01] MEDS: ALBUTEROL FS 2.5 MG/3 ML VIAL.NEB NEB SCH ×4 (00:28→19:27)
[2016-10-01 01:00] VITALS: BP 96/52
[2016-10-01] MEDS: BLOOD SUGAR DIAGNOSTIC 1 EACH STRIP IN SCH ×2 (05:49→17:03)
[2016-10-01] MEDS: PANTOPRAZOLE 40 MG/PACK PACK GT SCH (05:49)
[2016-10-01] MEDS: LEVOTHYROXINE SODIUM 88 MCG TABLET GT SCH (05:49)
[2016-10-01] MEDS: GLYTROL 1,000 ML BAG GT PRN (05:49)
[2016-10-01] MEDS: INSULIN REGULAR, HUMAN 100 UNIT/ML 3 ML VIAL SQ PRN ×2 (05:50→17:13)
[2016-10-01 05:54] VITALS: BP 120/58
[2016-10-01 07:37] VITALS: BP 108/55
[2016-10-01] MEDS: hydrALAZINE HCL 10 MG TABLET GT PRN ×2 (08:48→17:11)
[2016-10-01] MEDS: LABETALOL HCL (100MG) 100 MG TABLET GT SCH ×2 (08:49→20:21)
[2016-10-01] MEDS: MVI/MINERALS LIQUID (CEROVITE) GT SCH (09:40)
[2016-10-01] MEDS: LEVETIRACETAM SOL (5 ML) 100 MG/ML UDC GT SCH ×2 (09:40→20:20)
[2016-10-01] MEDS: ASCORBIC ACID 500 MG TABLET GT SCH (09:40)
[2016-10-01] MEDS: CARBOXYMETHYLCELLULOSE SODIUM 0.4 ML DROPERETTE EACHEYE SCH (09:40)
[2016-10-01] MEDS: PROSOURCE / PROSTAT (PYXIS) 30 ML UDC GT SCH (09:40)
[2016-10-01] MEDS: LACTOBACILLUS RHAMNOSUS GG 1 EACH CAP.SPRINK GT SCH (09:40)
[2016-10-01] MEDS: OMEGA GT SCH ×3 (09:40→17:03)
[2016-10-01] MEDS: NYSTATIN TOP POWDER 15 GM BOTTLE TP SCH ×4 (09:41→20:21)
[2016-10-01] MEDS: CLOTRIMAZOLE 1% 15 GM TUBE TP SCH ×2 (09:41→20:21)
[2016-10-01] MEDS: HYDROGEL DRESSING 90 GM TUBE TP SCH ×2 (09:41→20:21)
[2016-10-01] MEDS: HYDROGEN PEROXIDE 480 ML BOTTLE TP SCH ×2 (09:41→20:21)
[2016-10-01] MEDS: COD LIVER OIL/ZINC OXIDE 120 GM TUBE TP SCH ×4 (09:41→20:21)
[2016-10-01] MEDS: CHOLESTYRAMINE/ASPARTAME 4 G/PKT PACKET GT SCH (12:03)
[2016-10-01 21:14] VITALS: BP 149/73
[2016-10-01] MEDS: VALSARTAN 80 MG TABLET GT SCH (21:44)
[2016-10-02] MEDS: GLYTROL 1,000 ML BAG GT PRN (00:20)
[2016-10-02] MEDS: IPRATROPIUM NEB FS 0.5 MG/2.5 ML AMPUL.NEB IH SCH ×4 (00:59→20:27)
[2016-10-02 01:00] VITALS: BP 101/61
[2016-10-02] MEDS: ALBUTEROL FS 2.5 MG/3 ML VIAL.NEB NEB SCH ×4 (01:00→20:27)
[2016-10-02] MEDS: LEVOTHYROXINE SODIUM 88 MCG TABLET GT SCH (05:37)
[2016-10-02] MEDS: PANTOPRAZOLE 40 MG/PACK PACK GT SCH (05:37)
[2016-10-02] MEDS: BLOOD SUGAR DIAGNOSTIC 1 EACH STRIP IN SCH ×2 (05:37→18:06)
[2016-10-02] MEDS: INSULIN REGULAR, HUMAN 100 UNIT/ML 3 ML VIAL SQ PRN (05:38)
[2016-10-02 05:41] VITALS: BP 126/70
[2016-10-02 07:40] VITALS: BP 105/72
[2016-10-02] MEDS: LABETALOL HCL (100MG) 100 MG TABLET GT SCH ×2 (09:00→21:05)
[2016-10-02] MEDS: PROSOURCE / PROSTAT (PYXIS) 30 ML UDC GT SCH (09:52)
[2016-10-02] MEDS: MVI/MINERALS LIQUID (CEROVITE) GT SCH (09:52)
[2016-10-02] MEDS: LEVETIRACETAM SOL (5 ML) 100 MG/ML UDC GT SCH ×2 (09:52→21:05)
[2016-10-02] MEDS: OMEGA GT SCH ×3 (09:52→16:58)
[2016-10-02] MEDS: CARBOXYMETHYLCELLULOSE SODIUM 0.4 ML DROPERETTE EACHEYE SCH (09:52)
[2016-10-02] MEDS: LACTOBACILLUS RHAMNOSUS GG 1 EACH CAP.SPRINK GT SCH (09:52)
[2016-10-02] MEDS: COD LIVER OIL/ZINC OXIDE 120 GM TUBE TP SCH ×4 (09:53→21:05)
[2016-10-02] MEDS: HYDROGEL DRESSING 90 GM TUBE TP SCH ×2 (09:53→21:05)
[2016-10-02] MEDS: ASCORBIC ACID 500 MG TABLET GT SCH (09:53)
[2016-10-02] MEDS: HYDROGEN PEROXIDE 480 ML BOTTLE TP SCH ×2 (09:53→21:05)
[2016-10-02] MEDS: CLOTRIMAZOLE 1% 15 GM TUBE TP SCH ×2 (09:53→21:05)
[2016-10-02] MEDS: NYSTATIN TOP POWDER 15 GM BOTTLE TP SCH ×4 (09:53→21:06)
[2016-10-02] MEDS: CHOLESTYRAMINE/ASPARTAME 4 G/PKT PACKET GT SCH (12:16)
[2016-10-02 19:46] VITALS: BP 132/73
[2016-10-02] MEDS: VALSARTAN 80 MG TABLET GT SCH (22:23)
[2016-10-03] MEDS: IPRATROPIUM NEB FS 0.5 MG/2.5 ML AMPUL.NEB IH SCH ×4 (01:51→19:55)
[2016-10-03] MEDS: ALBUTEROL FS 2.5 MG/3 ML VIAL.NEB NEB SCH ×4 (01:51→19:55)
[2016-10-03] MEDS: BLOOD SUGAR DIAGNOSTIC 1 EACH STRIP IN SCH ×2 (05:21→18:18)
[2016-10-03] MEDS: LEVOTHYROXINE SODIUM 88 MCG TABLET GT SCH (05:21)
[2016-10-03] MEDS: PANTOPRAZOLE 40 MG/PACK PACK GT SCH (05:21)
[2016-10-03 08:21] VITALS: BP 124/56
[2016-10-03] MEDS: OMEGA GT SCH ×3 (09:29→17:00)
[2016-10-03] MEDS: MVI/MINERALS LIQUID (CEROVITE) GT SCH (09:29)
[2016-10-03] MEDS: LEVETIRACETAM SOL (5 ML) 100 MG/ML UDC GT SCH ×2 (09:29→21:27)
[2016-10-03] MEDS: LACTOBACILLUS RHAMNOSUS GG 1 EACH CAP.SPRINK GT SCH (09:29)
[2016-10-03] MEDS: CARBOXYMETHYLCELLULOSE SODIUM 0.4 ML DROPERETTE EACHEYE SCH (09:29)
[2016-10-03] MEDS: ASCORBIC ACID 500 MG TABLET GT SCH (09:29)
[2016-10-03] MEDS: PROSOURCE / PROSTAT (PYXIS) 30 ML UDC GT SCH (09:29)
[2016-10-03] MEDS: LABETALOL HCL (100MG) 100 MG TABLET GT SCH ×2 (09:29→21:27)
[2016-10-03] MEDS: COD LIVER OIL/ZINC OXIDE 120 GM TUBE TP SCH ×4 (09:42→21:27)
[2016-10-03] MEDS: HYDROGEN PEROXIDE 480 ML BOTTLE TP SCH ×2 (09:42→21:27)
[2016-10-03] MEDS: HYDROGEL DRESSING 90 GM TUBE TP SCH ×2 (09:42→21:27)
[2016-10-03] MEDS: NYSTATIN TOP POWDER 15 GM BOTTLE TP SCH ×4 (09:43→21:28)
[2016-10-03] MEDS: CLOTRIMAZOLE 1% 15 GM TUBE TP SCH ×2 (09:43→21:27)
[2016-10-03] MEDS: CHOLESTYRAMINE/ASPARTAME 4 G/PKT PACKET GT SCH (12:00)
[2016-10-03] MEDS: INSULIN REGULAR, HUMAN 100 UNIT/ML 3 ML VIAL SQ PRN (18:18)
--- NOTE | 2016-10-03 19:30 | NUR ---
RN NOTES Seen and examined by Becca Smith with NNO.
[2016-10-03 20:00] VITALS: BP 127/73
[2016-10-03] MEDS: VALSARTAN 80 MG TABLET GT SCH (21:52)
[2016-10-04] MEDS: ALBUTEROL FS 2.5 MG/3 ML VIAL.NEB NEB SCH ×4 (01:30→19:30)
[2016-10-04] MEDS: IPRATROPIUM NEB FS 0.5 MG/2.5 ML AMPUL.NEB IH SCH ×4 (01:30→19:30)
[2016-10-04] MEDS: LEVOTHYROXINE SODIUM 88 MCG TABLET GT SCH (05:43)
[2016-10-04] MEDS: BLOOD SUGAR DIAGNOSTIC 1 EACH STRIP IN SCH ×2 (05:43→18:17)
[2016-10-04] MEDS: PANTOPRAZOLE 40 MG/PACK PACK GT SCH (05:43)
[2016-10-04 07:59] VITALS: BP 124/53
[2016-10-04] MEDS: LABETALOL HCL (100MG) 100 MG TABLET GT SCH ×2 (09:00→20:48)
[2016-10-04] MEDS: CARBOXYMETHYLCELLULOSE SODIUM 0.4 ML DROPERETTE EACHEYE SCH (09:12)
[2016-10-04] MEDS: LACTOBACILLUS RHAMNOSUS GG 1 EACH CAP.SPRINK GT SCH (09:14)
[2016-10-04] MEDS: LEVETIRACETAM SOL (5 ML) 100 MG/ML UDC GT SCH ×2 (09:14→20:47)
[2016-10-04] MEDS: PROSOURCE / PROSTAT (PYXIS) 30 ML UDC GT SCH (09:15)
[2016-10-04] MEDS: ASCORBIC ACID 500 MG TABLET GT SCH (09:15)
[2016-10-04] MEDS: HYDROGEN PEROXIDE 480 ML BOTTLE TP SCH ×2 (09:15→20:48)
[2016-10-04] MEDS: HYDROGEL DRESSING 90 GM TUBE TP SCH ×2 (09:15→20:48)
[2016-10-04] MEDS: COD LIVER OIL/ZINC OXIDE 120 GM TUBE TP SCH ×4 (09:15→20:48)
[2016-10-04] MEDS: OMEGA GT SCH ×3 (09:15→16:56)
[2016-10-04] MEDS: MVI/MINERALS LIQUID (CEROVITE) GT SCH (09:15)
[2016-10-04] MEDS: CLOTRIMAZOLE 1% 15 GM TUBE TP SCH ×2 (09:16→20:48)
[2016-10-04] MEDS: NYSTATIN TOP POWDER 15 GM BOTTLE TP SCH ×4 (09:16→20:48)
--- NOTE | 2016-10-04 10:07 | NUR ---
Seen and examined by Dr Monet, NNO given at this time. Informed Dr. Monet that CNO met with 3 of the patient's daughter (Sky, Maddy and Marah) to discuss the plan of DPOA, there is no definite plan as of yet as she is waiting to speak with a assistant reading teacher.
[2016-10-04] MEDS: CHOLESTYRAMINE/ASPARTAME 4 G/PKT PACKET GT SCH ×2 (11:58→12:24)
[2016-10-04] MEDS: GLYTROL 1,000 ML BAG GT PRN (14:28)
[2016-10-04 20:01] VITALS: BP 107/56
[2016-10-04] MEDS: VALSARTAN 80 MG TABLET GT SCH (22:00)
[2016-10-05] MEDS: IPRATROPIUM NEB FS 0.5 MG/2.5 ML AMPUL.NEB IH SCH ×4 (01:36→20:23)
[2016-10-05] MEDS: ALBUTEROL FS 2.5 MG/3 ML VIAL.NEB NEB SCH ×4 (01:36→20:23)
[2016-10-05] MEDS: LEVOTHYROXINE SODIUM 88 MCG TABLET GT SCH (05:19)
[2016-10-05] MEDS: BLOOD SUGAR DIAGNOSTIC 1 EACH STRIP IN SCH ×2 (05:19→17:20)
[2016-10-05] MEDS: PANTOPRAZOLE 40 MG/PACK PACK GT SCH (05:19)
[2016-10-05 08:14] VITALS: BP 121/74
[2016-10-05] MEDS: MVI/MINERALS LIQUID (CEROVITE) GT SCH (09:00)
[2016-10-05] MEDS: PROSOURCE / PROSTAT (PYXIS) 30 ML UDC GT SCH (09:00)
[2016-10-05] MEDS: LEVETIRACETAM SOL (5 ML) 100 MG/ML UDC GT SCH ×2 (09:00→21:05)
[2016-10-05] MEDS: LACTOBACILLUS RHAMNOSUS GG 1 EACH CAP.SPRINK GT SCH (09:00)
[2016-10-05] MEDS: OMEGA GT SCH ×3 (09:00→16:55)
[2016-10-05] MEDS: CARBOXYMETHYLCELLULOSE SODIUM 0.4 ML DROPERETTE EACHEYE SCH (09:00)
[2016-10-05] MEDS: NYSTATIN TOP POWDER 15 GM BOTTLE TP SCH ×4 (09:01→21:06)
[2016-10-05] MEDS: LABETALOL HCL (100MG) 100 MG TABLET GT SCH ×2 (09:01→21:05)
[2016-10-05] MEDS: ASCORBIC ACID 500 MG TABLET GT SCH (09:01)
[2016-10-05] MEDS: CLOTRIMAZOLE 1% 15 GM TUBE TP SCH ×2 (09:01→21:06)
[2016-10-05] MEDS: COD LIVER OIL/ZINC OXIDE 120 GM TUBE TP SCH ×4 (09:01→21:05)
[2016-10-05] MEDS: HYDROGEN PEROXIDE 480 ML BOTTLE TP SCH ×2 (09:01→21:05)
[2016-10-05] MEDS: HYDROGEL DRESSING 90 GM TUBE TP SCH ×2 (09:01→21:05)
--- NOTE | 2016-10-05 10:12 | NUR ---
Social Service Section of [employer] (2nd quarter) completed. Resident is non-communicative. Her daughters are involved in her care and visit frequently. Her DPOA is her daughter Reyna and she is pending initiating hospice care for the resident. Resident has a trach and g-tube. G-tube feeding: GLYTROL @ 80 ML/HR X 20 HRS. Resident receiving ROM exercises daily 5 days a week with skin checks every two hours to prevent redness or skin changes.
[2016-10-05] MEDS: GLYTROL 1,000 ML BAG GT PRN (10:39)
[2016-10-05] MEDS: CHOLESTYRAMINE/ASPARTAME 4 G/PKT PACKET GT SCH (12:38)
[2016-10-05 21:54] VITALS: BP 131/51
[2016-10-05] MEDS: VALSARTAN 80 MG TABLET GT SCH (22:00)
[2016-10-06 01:00] VITALS: BP 109/62
[2016-10-06] MEDS: ALBUTEROL FS 2.5 MG/3 ML VIAL.NEB NEB SCH ×4 (01:52→19:38)
[2016-10-06] MEDS: IPRATROPIUM NEB FS 0.5 MG/2.5 ML AMPUL.NEB IH SCH ×4 (01:52→19:38)
[2016-10-06 05:10] VITALS: BP 118/52
[2016-10-06] MEDS: GLYTROL 1,000 ML BAG GT PRN (05:25)
[2016-10-06] MEDS: LEVOTHYROXINE SODIUM 88 MCG TABLET GT SCH (05:52)
[2016-10-06] MEDS: PANTOPRAZOLE 40 MG/PACK PACK GT SCH (05:52)
[2016-10-06] MEDS: INSULIN REGULAR, HUMAN 100 UNIT/ML 3 ML VIAL SQ PRN (05:52)
[2016-10-06] MEDS: BLOOD SUGAR DIAGNOSTIC 1 EACH STRIP IN SCH ×2 (05:52→17:31)
[2016-10-06] MEDS: CARBOXYMETHYLCELLULOSE SODIUM 0.4 ML DROPERETTE EACHEYE SCH (09:14)
[2016-10-06] MEDS: PROSOURCE / PROSTAT (PYXIS) 30 ML UDC GT SCH (09:14)
[2016-10-06] MEDS: OMEGA GT SCH ×3 (09:14→17:31)
[2016-10-06] MEDS: LEVETIRACETAM SOL (5 ML) 100 MG/ML UDC GT SCH ×2 (09:14→20:11)
[2016-10-06] MEDS: LACTOBACILLUS RHAMNOSUS GG 1 EACH CAP.SPRINK GT SCH (09:14)
[2016-10-06] MEDS: MVI/MINERALS LIQUID (CEROVITE) GT SCH (09:14)
[2016-10-06] MEDS: NYSTATIN TOP POWDER 15 GM BOTTLE TP SCH ×4 (09:15→20:13)
[2016-10-06] MEDS: HYDROGEN PEROXIDE 480 ML BOTTLE TP SCH ×2 (09:15→20:12)
[2016-10-06] MEDS: COD LIVER OIL/ZINC OXIDE 120 GM TUBE TP SCH ×4 (09:15→20:12)
[2016-10-06] MEDS: HYDROGEL DRESSING 90 GM TUBE TP SCH ×2 (09:15→20:12)
[2016-10-06] MEDS: CLOTRIMAZOLE 1% 15 GM TUBE TP SCH ×2 (09:15→20:12)
[2016-10-06] MEDS: LABETALOL HCL (100MG) 100 MG TABLET GT SCH ×2 (09:15→20:12)
[2016-10-06] MEDS: ASCORBIC ACID 500 MG TABLET GT SCH (09:15)
[2016-10-06] MEDS: CHOLESTYRAMINE/ASPARTAME 4 G/PKT PACKET GT SCH (12:00)
--- NOTE | 2016-10-06 14:20 | NUR ---
Seen and examined by Dr Ramirez with no new order.
--- NOTE | 2016-10-06 15:40 | NUR ---
Seen and examined by Becca MOORE with no new order.
[2016-10-06] MEDS: VALSARTAN 80 MG TABLET GT SCH (22:05)
[2016-10-07] MEDS: GLYTROL 1,000 ML BAG GT PRN ×2 (01:03→22:35)
[2016-10-07] MEDS: ALBUTEROL FS 2.5 MG/3 ML VIAL.NEB NEB SCH ×4 (01:46→19:37)
[2016-10-07] MEDS: IPRATROPIUM NEB FS 0.5 MG/2.5 ML AMPUL.NEB IH SCH ×4 (01:46→19:37)
[2016-10-07] MEDS: LEVOTHYROXINE SODIUM 88 MCG TABLET GT SCH (05:05)
[2016-10-07] MEDS: PANTOPRAZOLE 40 MG/PACK PACK GT SCH (05:05)
[2016-10-07] MEDS: INSULIN REGULAR, HUMAN 100 UNIT/ML 3 ML VIAL SQ PRN (06:33)
[2016-10-07] MEDS: BLOOD SUGAR DIAGNOSTIC 1 EACH STRIP IN SCH ×2 (06:33→17:28)
[2016-10-07 07:43] VITALS: BP 113/63
[2016-10-07] MEDS: LABETALOL HCL (100MG) 100 MG TABLET GT SCH ×2 (09:00→20:56)
[2016-10-07] MEDS: CARBOXYMETHYLCELLULOSE SODIUM 0.4 ML DROPERETTE EACHEYE SCH (09:00)
[2016-10-07] MEDS: ASCORBIC ACID 500 MG TABLET GT SCH (09:00)
[2016-10-07] MEDS: NYSTATIN TOP POWDER 15 GM BOTTLE TP SCH ×4 (09:00→20:57)
[2016-10-07] MEDS: MVI/MINERALS LIQUID (CEROVITE) GT SCH (09:00)
[2016-10-07] MEDS: OMEGA GT SCH ×3 (09:00→17:28)
[2016-10-07] MEDS: CLOTRIMAZOLE 1% 15 GM TUBE TP SCH ×2 (09:00→20:57)
[2016-10-07] MEDS: PROSOURCE / PROSTAT (PYXIS) 30 ML UDC GT SCH (09:00)
[2016-10-07] MEDS: COD LIVER OIL/ZINC OXIDE 120 GM TUBE TP SCH ×4 (09:00→20:57)
[2016-10-07] MEDS: LEVETIRACETAM SOL (5 ML) 100 MG/ML UDC GT SCH ×2 (09:00→20:56)
[2016-10-07] MEDS: HYDROGEN PEROXIDE 480 ML BOTTLE TP SCH ×2 (09:00→20:57)
[2016-10-07] MEDS: HYDROGEL DRESSING 90 GM TUBE TP SCH ×2 (09:00→20:57)
[2016-10-07] MEDS: LACTOBACILLUS RHAMNOSUS GG 1 EACH CAP.SPRINK GT SCH (09:00)
[2016-10-07] MEDS: CHOLESTYRAMINE/ASPARTAME 4 G/PKT PACKET GT SCH (12:39)
[2016-10-07 19:55] VITALS: BP 114/57
[2016-10-07] MEDS: VALSARTAN 80 MG TABLET GT SCH (22:00)
[2016-10-08] MEDS: ALBUTEROL FS 2.5 MG/3 ML VIAL.NEB NEB SCH ×4 (00:32→19:03)
[2016-10-08] MEDS: IPRATROPIUM NEB FS 0.5 MG/2.5 ML AMPUL.NEB IH SCH ×4 (00:32→19:02)
[2016-10-08 01:00] VITALS: BP 119/66
[2016-10-08 05:06] VITALS: BP 122/63
[2016-10-08] MEDS: PANTOPRAZOLE 40 MG/PACK PACK GT SCH (05:07)
[2016-10-08] MEDS: LEVOTHYROXINE SODIUM 88 MCG TABLET GT SCH (05:07)
[2016-10-08] MEDS: BLOOD SUGAR DIAGNOSTIC 1 EACH STRIP IN SCH ×2 (05:40→18:02)
[2016-10-08] MEDS: INSULIN REGULAR, HUMAN 100 UNIT/ML 3 ML VIAL SQ PRN (05:41)
[2016-10-08 07:47] VITALS: BP 127/52
[2016-10-08] MEDS: LEVETIRACETAM SOL (5 ML) 100 MG/ML UDC GT SCH ×2 (09:49→20:14)
[2016-10-08] MEDS: OMEGA GT SCH ×3 (09:49→17:00)
[2016-10-08] MEDS: LACTOBACILLUS RHAMNOSUS GG 1 EACH CAP.SPRINK GT SCH (09:49)
[2016-10-08] MEDS: MVI/MINERALS LIQUID (CEROVITE) GT SCH (09:49)
[2016-10-08] MEDS: PROSOURCE / PROSTAT (PYXIS) 30 ML UDC GT SCH (09:49)
[2016-10-08] MEDS: CARBOXYMETHYLCELLULOSE SODIUM 0.4 ML DROPERETTE EACHEYE SCH (09:49)
[2016-10-08] MEDS: HYDROGEL DRESSING 90 GM TUBE TP SCH ×2 (09:50→20:15)
[2016-10-08] MEDS: CLOTRIMAZOLE 1% 15 GM TUBE TP SCH ×2 (09:50→21:21)
[2016-10-08] MEDS: NYSTATIN TOP POWDER 15 GM BOTTLE TP SCH ×4 (09:50→21:21)
[2016-10-08] MEDS: HYDROGEN PEROXIDE 480 ML BOTTLE TP SCH ×2 (09:50→20:15)
[2016-10-08] MEDS: COD LIVER OIL/ZINC OXIDE 120 GM TUBE TP SCH ×4 (09:50→20:15)
[2016-10-08] MEDS: LABETALOL HCL (100MG) 100 MG TABLET GT SCH ×2 (09:50→20:14)
[2016-10-08] MEDS: ASCORBIC ACID 500 MG TABLET GT SCH (09:50)
[2016-10-08] MEDS: CHOLESTYRAMINE/ASPARTAME 4 G/PKT PACKET GT SCH (12:52)
[2016-10-08] MEDS: GLYTROL 1,000 ML BAG GT PRN (18:30)
[2016-10-08 20:00] VITALS: BP 128/57
[2016-10-08] MEDS: VALSARTAN 80 MG TABLET GT SCH (22:20)
[2016-10-09] MEDS: IPRATROPIUM NEB FS 0.5 MG/2.5 ML AMPUL.NEB IH SCH ×4 (00:58→19:36)
[2016-10-09] MEDS: ALBUTEROL FS 2.5 MG/3 ML VIAL.NEB NEB SCH ×4 (00:58→19:36)
[2016-10-09] MEDS: PANTOPRAZOLE 40 MG/PACK PACK GT SCH (05:03)
[2016-10-09] MEDS: LEVOTHYROXINE SODIUM 88 MCG TABLET GT SCH (05:03)
[2016-10-09] MEDS: GLYTROL 1,000 ML BAG GT PRN (05:04)
[2016-10-09] MEDS: INSULIN REGULAR, HUMAN 100 UNIT/ML 3 ML VIAL SQ PRN (06:55)
[2016-10-09] MEDS: BLOOD SUGAR DIAGNOSTIC 1 EACH STRIP IN SCH ×2 (06:55→17:37)
[2016-10-09 07:31] VITALS: BP 116/55
[2016-10-09] MEDS: LACTOBACILLUS RHAMNOSUS GG 1 EACH CAP.SPRINK GT SCH (09:24)
[2016-10-09] MEDS: CARBOXYMETHYLCELLULOSE SODIUM 0.4 ML DROPERETTE EACHEYE SCH (09:24)
[2016-10-09] MEDS: PROSOURCE / PROSTAT (PYXIS) 30 ML UDC GT SCH (09:24)
[2016-10-09] MEDS: LEVETIRACETAM SOL (5 ML) 100 MG/ML UDC GT SCH ×2 (09:24→21:04)
[2016-10-09] MEDS: LABETALOL HCL (100MG) 100 MG TABLET GT SCH ×2 (09:24→21:05)
[2016-10-09] MEDS: ASCORBIC ACID 500 MG TABLET GT SCH (09:24)
[2016-10-09] MEDS: MVI/MINERALS LIQUID (CEROVITE) GT SCH (09:24)
[2016-10-09] MEDS: OMEGA GT SCH ×3 (09:24→16:56)
[2016-10-09] MEDS: COD LIVER OIL/ZINC OXIDE 120 GM TUBE TP SCH ×4 (09:25→21:08)
[2016-10-09] MEDS: HYDROGEN PEROXIDE 480 ML BOTTLE TP SCH ×2 (09:25→21:08)
[2016-10-09] MEDS: CLOTRIMAZOLE 1% 15 GM TUBE TP SCH ×2 (09:25→21:08)
[2016-10-09] MEDS: NYSTATIN TOP POWDER 15 GM BOTTLE TP SCH ×4 (09:25→21:08)
[2016-10-09] MEDS: HYDROGEL DRESSING 90 GM TUBE TP SCH ×2 (09:25→21:08)
[2016-10-09] MEDS: CHOLESTYRAMINE/ASPARTAME 4 G/PKT PACKET GT SCH (12:37)
[2016-10-09 19:57] VITALS: BP 127/62
[2016-10-09] MEDS: VALSARTAN 80 MG TABLET GT SCH (22:00)
[2016-10-10] MEDS: IPRATROPIUM NEB FS 0.5 MG/2.5 ML AMPUL.NEB IH SCH ×4 (01:12→19:08)
[2016-10-10] MEDS: ALBUTEROL FS 2.5 MG/3 ML VIAL.NEB NEB SCH ×4 (01:12→19:08)
[2016-10-10] MEDS: GLYTROL 1,000 ML BAG GT PRN (01:14)
[2016-10-10] MEDS: PANTOPRAZOLE 40 MG/PACK PACK GT SCH (05:55)
[2016-10-10] MEDS: LEVOTHYROXINE SODIUM 88 MCG TABLET GT SCH (05:55)
[2016-10-10] MEDS: BLOOD SUGAR DIAGNOSTIC 1 EACH STRIP IN SCH ×2 (05:55→18:18)
[2016-10-10] MEDS: INSULIN REGULAR, HUMAN 100 UNIT/ML 3 ML VIAL SQ PRN ×2 (05:55→18:21)
[2016-10-10 08:41] VITALS: BP 109/58
[2016-10-10] MEDS: HYDROGEN PEROXIDE 480 ML BOTTLE TP SCH ×2 (09:00→21:23)
[2016-10-10] MEDS: NYSTATIN TOP POWDER 15 GM BOTTLE TP SCH ×4 (09:00→21:24)
[2016-10-10] MEDS: LABETALOL HCL (100MG) 100 MG TABLET GT SCH ×2 (09:00→21:23)
[2016-10-10] MEDS: ASCORBIC ACID 500 MG TABLET GT SCH (09:00)
[2016-10-10] MEDS: COD LIVER OIL/ZINC OXIDE 120 GM TUBE TP SCH ×4 (09:00→21:23)
[2016-10-10] MEDS: LACTOBACILLUS RHAMNOSUS GG 1 EACH CAP.SPRINK GT SCH (09:00)
[2016-10-10] MEDS: OMEGA GT SCH ×3 (09:00→17:00)
[2016-10-10] MEDS: CARBOXYMETHYLCELLULOSE SODIUM 0.4 ML DROPERETTE EACHEYE SCH (09:00)
[2016-10-10] MEDS: PROSOURCE / PROSTAT (PYXIS) 30 ML UDC GT SCH (09:00)
[2016-10-10] MEDS: MVI/MINERALS LIQUID (CEROVITE) GT SCH (09:00)
[2016-10-10] MEDS: LEVETIRACETAM SOL (5 ML) 100 MG/ML UDC GT SCH ×2 (09:00→21:23)
[2016-10-10] MEDS: CLOTRIMAZOLE 1% 15 GM TUBE TP SCH ×2 (09:00→21:23)
[2016-10-10] MEDS: CHOLESTYRAMINE/ASPARTAME 4 G/PKT PACKET GT SCH (12:37)
[2016-10-10 20:09] VITALS: BP 120/90
[2016-10-10] MEDS: VALSARTAN 80 MG TABLET GT SCH (21:24)
[2016-10-11] MEDS: IPRATROPIUM NEB FS 0.5 MG/2.5 ML AMPUL.NEB IH SCH ×4 (01:41→19:44)
[2016-10-11] MEDS: ALBUTEROL FS 2.5 MG/3 ML VIAL.NEB NEB SCH ×4 (01:41→19:44)
[2016-10-11] MEDS: LEVOTHYROXINE SODIUM 88 MCG TABLET GT SCH (05:39)
[2016-10-11] MEDS: PANTOPRAZOLE 40 MG/PACK PACK GT SCH (05:39)
[2016-10-11] MEDS: BLOOD SUGAR DIAGNOSTIC 1 EACH STRIP IN SCH ×2 (06:00→17:08)
[2016-10-11 08:07] VITALS: BP 153/84
[2016-10-11] MEDS: MVI/MINERALS LIQUID (CEROVITE) GT SCH (08:44)
[2016-10-11] MEDS: LACTOBACILLUS RHAMNOSUS GG 1 EACH CAP.SPRINK GT SCH (08:44)
[2016-10-11] MEDS: LEVETIRACETAM SOL (5 ML) 100 MG/ML UDC GT SCH ×2 (08:44→21:22)
[2016-10-11] MEDS: CARBOXYMETHYLCELLULOSE SODIUM 0.4 ML DROPERETTE EACHEYE SCH (08:44)
[2016-10-11] MEDS: OMEGA GT SCH ×3 (08:44→16:30)
[2016-10-11] MEDS: PROSOURCE / PROSTAT (PYXIS) 30 ML UDC GT SCH (08:44)
[2016-10-11] MEDS: LABETALOL HCL (100MG) 100 MG TABLET GT SCH ×2 (08:45→21:22)
[2016-10-11] MEDS: CLOTRIMAZOLE 1% 15 GM TUBE TP SCH ×2 (08:45→21:23)
[2016-10-11] MEDS: HYDROGEN PEROXIDE 480 ML BOTTLE TP SCH ×2 (08:45→21:23)
[2016-10-11] MEDS: COD LIVER OIL/ZINC OXIDE 120 GM TUBE TP SCH ×4 (08:45→21:23)
[2016-10-11] MEDS: ASCORBIC ACID 500 MG TABLET GT SCH (08:45)
[2016-10-11] MEDS: CHOLESTYRAMINE/ASPARTAME 4 G/PKT PACKET GT SCH (11:14)
[2016-10-11] MEDS: GLYTROL 1,000 ML BAG GT PRN (15:51)
[2016-10-11 20:16] VITALS: BP 117/53
[2016-10-11] MEDS: HYDROGEL DRESSING 90 GM TUBE TP SCH (21:22)
[2016-10-11] MEDS: VALSARTAN 80 MG TABLET GT SCH (21:23)
[2016-10-12] MEDS: IPRATROPIUM NEB FS 0.5 MG/2.5 ML AMPUL.NEB IH SCH ×4 (02:17→19:48)
[2016-10-12] MEDS: ALBUTEROL FS 2.5 MG/3 ML VIAL.NEB NEB SCH ×4 (02:17→19:48)
[2016-10-12] MEDS: LEVOTHYROXINE SODIUM 88 MCG TABLET GT SCH (05:47)
[2016-10-12] MEDS: PANTOPRAZOLE 40 MG/PACK PACK GT SCH (05:47)
[2016-10-12] MEDS: BLOOD SUGAR DIAGNOSTIC 1 EACH STRIP IN SCH ×2 (06:02→17:59)
[2016-10-12 07:57] VITALS: BP 98/51
[2016-10-12] MEDS: LABETALOL HCL (100MG) 100 MG TABLET GT SCH ×2 (09:00→21:00)
[2016-10-12] MEDS: OMEGA GT SCH ×3 (09:27→16:28)
[2016-10-12] MEDS: LEVETIRACETAM SOL (5 ML) 100 MG/ML UDC GT SCH ×2 (09:27→21:20)
[2016-10-12] MEDS: PROSOURCE / PROSTAT (PYXIS) 30 ML UDC GT SCH (09:27)
[2016-10-12] MEDS: LACTOBACILLUS RHAMNOSUS GG 1 EACH CAP.SPRINK GT SCH (09:27)
[2016-10-12] MEDS: CARBOXYMETHYLCELLULOSE SODIUM 0.4 ML DROPERETTE EACHEYE SCH (09:27)
[2016-10-12] MEDS: MVI/MINERALS LIQUID (CEROVITE) GT SCH (09:27)
[2016-10-12] MEDS: COD LIVER OIL/ZINC OXIDE 120 GM TUBE TP SCH ×4 (09:28→21:20)
[2016-10-12] MEDS: ASCORBIC ACID 500 MG TABLET GT SCH (09:28)
[2016-10-12] MEDS: HYDROGEN PEROXIDE 480 ML BOTTLE TP SCH ×2 (09:28→21:20)
[2016-10-12] MEDS: HYDROGEL DRESSING 90 GM TUBE TP SCH ×2 (09:28→21:20)
[2016-10-12] MEDS: CLOTRIMAZOLE 1% 15 GM TUBE TP SCH ×2 (09:28→21:21)
[2016-10-12] MEDS: CHOLESTYRAMINE/ASPARTAME 4 G/PKT PACKET GT SCH (12:11)
[2016-10-12] MEDS: GLYTROL 1,000 ML BAG GT PRN (12:35)
[2016-10-12 20:19] VITALS: BP 107/66
[2016-10-12] MEDS: VALSARTAN 80 MG TABLET GT SCH (21:21)
[2016-10-13] MEDS: ALBUTEROL FS 2.5 MG/3 ML VIAL.NEB NEB SCH ×4 (01:46→19:45)
[2016-10-13] MEDS: IPRATROPIUM NEB FS 0.5 MG/2.5 ML AMPUL.NEB IH SCH ×4 (01:46→19:45)
[2016-10-13] MEDS: LEVOTHYROXINE SODIUM 88 MCG TABLET GT SCH (05:47)
[2016-10-13] MEDS: PANTOPRAZOLE 40 MG/PACK PACK GT SCH (05:47)
[2016-10-13] MEDS: BLOOD SUGAR DIAGNOSTIC 1 EACH STRIP IN SCH ×2 (06:02→18:27)
[2016-10-13 08:58] VITALS: BP 112/56
[2016-10-13] MEDS: CARBOXYMETHYLCELLULOSE SODIUM 0.4 ML DROPERETTE EACHEYE SCH (09:57)
[2016-10-13] MEDS: ASCORBIC ACID 500 MG TABLET GT SCH (09:58)
[2016-10-13] MEDS: LACTOBACILLUS RHAMNOSUS GG 1 EACH CAP.SPRINK GT SCH (09:58)
[2016-10-13] MEDS: PROSOURCE / PROSTAT (PYXIS) 30 ML UDC GT SCH (09:58)
[2016-10-13] MEDS: HYDROGEL DRESSING 90 GM TUBE TP SCH ×2 (09:58→20:35)
[2016-10-13] MEDS: COD LIVER OIL/ZINC OXIDE 120 GM TUBE TP SCH ×4 (09:58→20:35)
[2016-10-13] MEDS: LEVETIRACETAM SOL (5 ML) 100 MG/ML UDC GT SCH ×2 (09:58→20:34)
[2016-10-13] MEDS: HYDROGEN PEROXIDE 480 ML BOTTLE TP SCH ×2 (09:58→20:35)
[2016-10-13] MEDS: OMEGA GT SCH ×3 (09:58→16:31)
[2016-10-13] MEDS: CLOTRIMAZOLE 1% 15 GM TUBE TP SCH ×2 (09:58→20:35)
[2016-10-13] MEDS: LABETALOL HCL (100MG) 100 MG TABLET GT SCH ×2 (09:58→20:35)
[2016-10-13] MEDS: MVI/MINERALS LIQUID (CEROVITE) GT SCH (09:58)
[2016-10-13] MEDS: CHOLESTYRAMINE/ASPARTAME 4 G/PKT PACKET GT SCH (12:00)
[2016-10-13 20:16] VITALS: BP 126/55
[2016-10-13] MEDS: VALSARTAN 80 MG TABLET GT SCH (22:00)
[2016-10-14] MEDS: ALBUTEROL FS 2.5 MG/3 ML VIAL.NEB NEB SCH ×4 (01:04→19:41)
[2016-10-14] MEDS: IPRATROPIUM NEB FS 0.5 MG/2.5 ML AMPUL.NEB IH SCH ×4 (01:04→19:41)
[2016-10-14] MEDS: LEVOTHYROXINE SODIUM 88 MCG TABLET GT SCH (05:42)
[2016-10-14] MEDS: PANTOPRAZOLE 40 MG/PACK PACK GT SCH (05:42)
[2016-10-14] MEDS: BLOOD SUGAR DIAGNOSTIC 1 EACH STRIP IN SCH ×2 (05:43→17:54)
[2016-10-14] MEDS: GLYTROL 1,000 ML BAG GT PRN (05:43)
[2016-10-14] MEDS: INSULIN REGULAR, HUMAN 100 UNIT/ML 3 ML VIAL SQ PRN (05:43)
[2016-10-14 07:42] VITALS: BP 98/55
[2016-10-14] MEDS: LABETALOL HCL (100MG) 100 MG TABLET GT SCH ×2 (09:00→20:35)
[2016-10-14] MEDS: CARBOXYMETHYLCELLULOSE SODIUM 0.4 ML DROPERETTE EACHEYE SCH (09:56)
[2016-10-14] MEDS: OMEGA GT SCH ×3 (09:56→17:54)
[2016-10-14] MEDS: MVI/MINERALS LIQUID (CEROVITE) GT SCH (09:56)
[2016-10-14] MEDS: LEVETIRACETAM SOL (5 ML) 100 MG/ML UDC GT SCH ×2 (09:56→20:35)
[2016-10-14] MEDS: LACTOBACILLUS RHAMNOSUS GG 1 EACH CAP.SPRINK GT SCH (09:56)
[2016-10-14] MEDS: PROSOURCE / PROSTAT (PYXIS) 30 ML UDC GT SCH (09:56)
[2016-10-14] MEDS: ASCORBIC ACID 500 MG TABLET GT SCH (09:56)
[2016-10-14] MEDS: HYDROGEL DRESSING 90 GM TUBE TP SCH ×2 (09:57→20:35)
[2016-10-14] MEDS: CLOTRIMAZOLE 1% 15 GM TUBE TP SCH ×2 (09:57→20:36)
[2016-10-14] MEDS: HYDROGEN PEROXIDE 480 ML BOTTLE TP SCH ×2 (09:57→20:35)
[2016-10-14] MEDS: COD LIVER OIL/ZINC OXIDE 120 GM TUBE TP SCH ×4 (09:57→20:35)
--- NOTE | 2016-10-14 12:24 | NUR ---
Informed DPOA/DTR Reyna Zoran that hairdresser was coming Wednesday October 19, 2016 and asked her if she wanted a haircut for the resident. Reyna stated that yes she would like for haircut to receive a resident and SW will add her to the schedule.
[2016-10-14] MEDS: CHOLESTYRAMINE/ASPARTAME 4 G/PKT PACKET GT SCH (12:45)
[2016-10-14 20:37] VITALS: BP 115/67
[2016-10-14] MEDS: VALSARTAN 80 MG TABLET GT SCH (22:00)
[2016-10-15] MEDS: IPRATROPIUM NEB FS 0.5 MG/2.5 ML AMPUL.NEB IH SCH ×4 (01:24→19:56)
[2016-10-15] MEDS: ALBUTEROL FS 2.5 MG/3 ML VIAL.NEB NEB SCH ×4 (01:24→19:56)
[2016-10-15] MEDS: GLYTROL 1,000 ML BAG GT PRN (03:33)
[2016-10-15] MEDS: PANTOPRAZOLE 40 MG/PACK PACK GT SCH (05:36)
[2016-10-15] MEDS: LEVOTHYROXINE SODIUM 88 MCG TABLET GT SCH (05:36)
[2016-10-15] MEDS: INSULIN REGULAR, HUMAN 100 UNIT/ML 3 ML VIAL SQ PRN ×2 (05:37→17:41)
[2016-10-15] MEDS: BLOOD SUGAR DIAGNOSTIC 1 EACH STRIP IN SCH ×2 (05:37→17:40)
[2016-10-15 07:37] VITALS: BP 128/55
[2016-10-15] MEDS: HYDROGEN PEROXIDE 480 ML BOTTLE TP SCH ×2 (09:00→20:18)
[2016-10-15] MEDS: COD LIVER OIL/ZINC OXIDE 120 GM TUBE TP SCH ×4 (09:00→20:18)
[2016-10-15] MEDS: ASCORBIC ACID 500 MG TABLET GT SCH (09:00)
[2016-10-15] MEDS: CLOTRIMAZOLE 1% 15 GM TUBE TP SCH ×2 (09:00→20:19)
[2016-10-15] MEDS: LABETALOL HCL (100MG) 100 MG TABLET GT SCH ×2 (09:00→20:18)
[2016-10-15] MEDS: MVI/MINERALS LIQUID (CEROVITE) GT SCH (09:00)
[2016-10-15] MEDS: LACTOBACILLUS RHAMNOSUS GG 1 EACH CAP.SPRINK GT SCH (09:00)
[2016-10-15] MEDS: PROSOURCE / PROSTAT (PYXIS) 30 ML UDC GT SCH (09:00)
[2016-10-15] MEDS: HYDROGEL DRESSING 90 GM TUBE TP SCH ×2 (09:00→20:18)
[2016-10-15] MEDS: OMEGA GT SCH ×3 (09:00→16:14)
[2016-10-15] MEDS: CARBOXYMETHYLCELLULOSE SODIUM 0.4 ML DROPERETTE EACHEYE SCH (09:00)
[2016-10-15] MEDS: LEVETIRACETAM SOL (5 ML) 100 MG/ML UDC GT SCH ×2 (09:00→20:18)
[2016-10-15] MEDS: CHOLESTYRAMINE/ASPARTAME 4 G/PKT PACKET GT SCH (12:50)
[2016-10-15 20:22] VITALS: BP 121/67
[2016-10-15] MEDS: VALSARTAN 80 MG TABLET GT SCH (22:01)
[2016-10-16] MEDS: ALBUTEROL FS 2.5 MG/3 ML VIAL.NEB NEB SCH ×4 (00:53→19:44)
[2016-10-16] MEDS: IPRATROPIUM NEB FS 0.5 MG/2.5 ML AMPUL.NEB IH SCH ×4 (00:53→19:44)
[2016-10-16] MEDS: PANTOPRAZOLE 40 MG/PACK PACK GT SCH (05:44)
[2016-10-16] MEDS: BLOOD SUGAR DIAGNOSTIC 1 EACH STRIP IN SCH ×2 (05:44→17:09)
[2016-10-16] MEDS: INSULIN REGULAR, HUMAN 100 UNIT/ML 3 ML VIAL SQ PRN (05:44)
[2016-10-16] MEDS: LEVOTHYROXINE SODIUM 88 MCG TABLET GT SCH (05:44)
[2016-10-16] MEDS: GLYTROL 1,000 ML BAG GT PRN ×2 (05:45→21:37)
[2016-10-16 07:49] VITALS: BP 112/48
[2016-10-16] MEDS: LACTOBACILLUS RHAMNOSUS GG 1 EACH CAP.SPRINK GT SCH (09:43)
[2016-10-16] MEDS: CARBOXYMETHYLCELLULOSE SODIUM 0.4 ML DROPERETTE EACHEYE SCH (09:43)
[2016-10-16] MEDS: HYDROGEN PEROXIDE 480 ML BOTTLE TP SCH ×2 (09:44→20:40)
[2016-10-16] MEDS: LEVETIRACETAM SOL (5 ML) 100 MG/ML UDC GT SCH ×2 (09:44→20:40)
[2016-10-16] MEDS: ASCORBIC ACID 500 MG TABLET GT SCH (09:44)
[2016-10-16] MEDS: COD LIVER OIL/ZINC OXIDE 120 GM TUBE TP SCH ×4 (09:44→20:40)
[2016-10-16] MEDS: CLOTRIMAZOLE 1% 15 GM TUBE TP SCH ×2 (09:44→20:41)
[2016-10-16] MEDS: LABETALOL HCL (100MG) 100 MG TABLET GT SCH ×2 (09:44→20:40)
[2016-10-16] MEDS: HYDROGEL DRESSING 90 GM TUBE TP SCH ×2 (09:44→20:40)
[2016-10-16] MEDS: MVI/MINERALS LIQUID (CEROVITE) GT SCH (09:44)
[2016-10-16] MEDS: OMEGA GT SCH ×3 (09:44→17:09)
[2016-10-16] MEDS: PROSOURCE / PROSTAT (PYXIS) 30 ML UDC GT SCH (09:44)
[2016-10-16] MEDS: CHOLESTYRAMINE/ASPARTAME 4 G/PKT PACKET GT SCH (12:00)
[2016-10-16] MEDS: VALSARTAN 80 MG TABLET GT SCH (22:00)
[2016-10-16 23:09] VITALS: BP 121/59
[2016-10-17] MEDS: IPRATROPIUM NEB FS 0.5 MG/2.5 ML AMPUL.NEB IH SCH ×4 (01:25→19:23)
[2016-10-17] MEDS: ALBUTEROL FS 2.5 MG/3 ML VIAL.NEB NEB SCH ×4 (01:25→19:23)
[2016-10-17] MEDS: PANTOPRAZOLE 40 MG/PACK PACK GT SCH (06:34)
[2016-10-17] MEDS: INSULIN REGULAR, HUMAN 100 UNIT/ML 3 ML VIAL SQ PRN (06:34)
[2016-10-17] MEDS: BLOOD SUGAR DIAGNOSTIC 1 EACH STRIP IN SCH ×2 (06:34→17:30)
[2016-10-17] MEDS: LEVOTHYROXINE SODIUM 88 MCG TABLET GT SCH (06:34)
[2016-10-17 08:13] VITALS: BP 139/85
[2016-10-17] MEDS: COD LIVER OIL/ZINC OXIDE 120 GM TUBE TP SCH ×4 (09:21→21:06)
[2016-10-17] MEDS: ASCORBIC ACID 500 MG TABLET GT SCH (09:21)
[2016-10-17] MEDS: MVI/MINERALS LIQUID (CEROVITE) GT SCH (09:21)
[2016-10-17] MEDS: LEVETIRACETAM SOL (5 ML) 100 MG/ML UDC GT SCH ×2 (09:21→21:06)
[2016-10-17] MEDS: LABETALOL HCL (100MG) 100 MG TABLET GT SCH ×2 (09:21→21:06)
[2016-10-17] MEDS: OMEGA GT SCH ×3 (09:21→17:30)
[2016-10-17] MEDS: LACTOBACILLUS RHAMNOSUS GG 1 EACH CAP.SPRINK GT SCH (09:21)
[2016-10-17] MEDS: HYDROGEL DRESSING 90 GM TUBE TP SCH ×2 (09:21→21:06)
[2016-10-17] MEDS: CARBOXYMETHYLCELLULOSE SODIUM 0.4 ML DROPERETTE EACHEYE SCH (09:21)
[2016-10-17] MEDS: PROSOURCE / PROSTAT (PYXIS) 30 ML UDC GT SCH (09:21)
[2016-10-17] MEDS: HYDROGEN PEROXIDE 480 ML BOTTLE TP SCH ×2 (09:22→21:06)
[2016-10-17] MEDS: CLOTRIMAZOLE 1% 15 GM TUBE TP SCH ×2 (09:22→21:06)
[2016-10-17] MEDS: CHOLESTYRAMINE/ASPARTAME 4 G/PKT PACKET GT SCH (12:00)
[2016-10-17 19:53] VITALS: BP 119/58
[2016-10-17] MEDS: VALSARTAN 80 MG TABLET GT SCH (21:07)
[2016-10-17] MEDS: GLYTROL 1,000 ML BAG GT PRN (21:07)
[2016-10-18] MEDS: ALBUTEROL FS 2.5 MG/3 ML VIAL.NEB NEB SCH ×4 (00:49→19:30)
[2016-10-18] MEDS: IPRATROPIUM NEB FS 0.5 MG/2.5 ML AMPUL.NEB IH SCH ×4 (00:49→19:30)
[2016-10-18 01:00] VITALS: BP 106/62
[2016-10-18 05:19] VITALS: BP 124/65
[2016-10-18] MEDS: PANTOPRAZOLE 40 MG/PACK PACK GT SCH (05:20)
[2016-10-18] MEDS: LEVOTHYROXINE SODIUM 88 MCG TABLET GT SCH (05:20)
[2016-10-18] MEDS: BLOOD SUGAR DIAGNOSTIC 1 EACH STRIP IN SCH ×2 (06:06→17:49)
[2016-10-18] MEDS: MVI/MINERALS LIQUID (CEROVITE) GT SCH (09:23)
[2016-10-18] MEDS: OMEGA GT SCH ×3 (09:23→17:49)
[2016-10-18] MEDS: LACTOBACILLUS RHAMNOSUS GG 1 EACH CAP.SPRINK GT SCH (09:23)
[2016-10-18] MEDS: CARBOXYMETHYLCELLULOSE SODIUM 0.4 ML DROPERETTE EACHEYE SCH (09:23)
[2016-10-18] MEDS: LEVETIRACETAM SOL (5 ML) 100 MG/ML UDC GT SCH ×2 (09:23→21:26)
[2016-10-18] MEDS: PROSOURCE / PROSTAT (PYXIS) 30 ML UDC GT SCH (09:24)
[2016-10-18] MEDS: LABETALOL HCL (100MG) 100 MG TABLET GT SCH ×2 (09:25→21:27)
[2016-10-18] MEDS: ASCORBIC ACID 500 MG TABLET GT SCH (09:26)
[2016-10-18] MEDS: CLOTRIMAZOLE 1% 15 GM TUBE TP SCH ×2 (09:26→21:28)
[2016-10-18] MEDS: HYDROGEN PEROXIDE 480 ML BOTTLE TP SCH ×2 (09:26→21:28)
[2016-10-18] MEDS: COD LIVER OIL/ZINC OXIDE 120 GM TUBE TP SCH ×4 (09:26→21:28)
[2016-10-18] MEDS: HYDROGEL DRESSING 90 GM TUBE TP SCH ×2 (09:26→21:27)
[2016-10-18] MEDS: CHOLESTYRAMINE/ASPARTAME 4 G/PKT PACKET GT SCH (12:00)
[2016-10-18 19:39] VITALS: BP 115/65
[2016-10-18] MEDS: VALSARTAN 80 MG TABLET GT SCH (21:28)
[2016-10-19] MEDS: ALBUTEROL FS 2.5 MG/3 ML VIAL.NEB NEB SCH ×4 (01:41→19:38)
[2016-10-19] MEDS: IPRATROPIUM NEB FS 0.5 MG/2.5 ML AMPUL.NEB IH SCH ×4 (01:41→19:38)
[2016-10-19] MEDS: PANTOPRAZOLE 40 MG/PACK PACK GT SCH (05:37)
[2016-10-19] MEDS: LEVOTHYROXINE SODIUM 88 MCG TABLET GT SCH (05:37)
[2016-10-19] MEDS: BLOOD SUGAR DIAGNOSTIC 1 EACH STRIP IN SCH ×2 (05:53→17:40)
[2016-10-19 07:47] VITALS: BP 109/62
[2016-10-19] MEDS: HYDROGEN PEROXIDE 480 ML BOTTLE TP SCH ×2 (09:00→21:25)
[2016-10-19] MEDS: ASCORBIC ACID 500 MG TABLET GT SCH (09:00)
[2016-10-19] MEDS: HYDROGEL DRESSING 90 GM TUBE TP SCH ×2 (09:00→21:25)
[2016-10-19] MEDS: CLOTRIMAZOLE 1% 15 GM TUBE TP SCH ×2 (09:00→21:25)
[2016-10-19] MEDS: LABETALOL HCL (100MG) 100 MG TABLET GT SCH ×2 (09:00→21:00)
[2016-10-19] MEDS: LEVETIRACETAM SOL (5 ML) 100 MG/ML UDC GT SCH ×2 (09:00→21:24)
[2016-10-19] MEDS: OMEGA GT SCH ×3 (09:00→17:40)
[2016-10-19] MEDS: LACTOBACILLUS RHAMNOSUS GG 1 EACH CAP.SPRINK GT SCH (09:00)
[2016-10-19] MEDS: COD LIVER OIL/ZINC OXIDE 120 GM TUBE TP SCH ×4 (09:00→21:25)
[2016-10-19] MEDS: PROSOURCE / PROSTAT (PYXIS) 30 ML UDC GT SCH (09:00)
[2016-10-19] MEDS: CARBOXYMETHYLCELLULOSE SODIUM 0.4 ML DROPERETTE EACHEYE SCH (09:00)
[2016-10-19] MEDS: MVI/MINERALS LIQUID (CEROVITE) GT SCH (09:00)
--- NOTE | 2016-10-19 10:16 | NUR ---
Was informed that resident's daughter came this past weekend and stated that she had already cut resident's hair. Therefore, resident will not receive another haircut today.
--- NOTE | 2016-10-19 11:22 | NUR ---
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 CONCUR WITH CURRENT TREATMENT. DISCUSSED WITH NURSING STAFF. WOUND MEASURES 2.5CM X 1CM X 0.1CM AND IS RED/PINK IN COLOR WITH SCANT PINK DRAINAGE, NO ODOR. WILL SEE PRN. PT ON FIRST STEP MATTRESS. ALL SKIN PROTECTION MEASURES IN PLACE. MD IN AGREEMENT WITH PLAN OF CARE.
[2016-10-19] MEDS: CHOLESTYRAMINE/ASPARTAME 4 G/PKT PACKET GT SCH (12:00)
[2016-10-19 20:35] VITALS: BP 110/61
[2016-10-19] MEDS: VALSARTAN 80 MG TABLET GT SCH (22:27)
[2016-10-20 01:00] VITALS: BP 123/65
[2016-10-20] MEDS: IPRATROPIUM NEB FS 0.5 MG/2.5 ML AMPUL.NEB IH SCH ×4 (01:03→19:36)
[2016-10-20] MEDS: ALBUTEROL FS 2.5 MG/3 ML VIAL.NEB NEB SCH ×4 (01:03→19:36)
[2016-10-20 05:00] VITALS: BP 116/63
[2016-10-20] MEDS: LEVOTHYROXINE SODIUM 88 MCG TABLET GT SCH (05:35)
[2016-10-20] MEDS: PANTOPRAZOLE 40 MG/PACK PACK GT SCH (05:35)
[2016-10-20] MEDS: BLOOD SUGAR DIAGNOSTIC 1 EACH STRIP IN SCH ×2 (06:04→18:41)
[2016-10-20] MEDS: INSULIN REGULAR, HUMAN 100 UNIT/ML 3 ML VIAL SQ PRN (06:04)
[2016-10-20 07:26] VITALS: BP 119/79
[2016-10-20] MEDS: MVI/MINERALS LIQUID (CEROVITE) GT SCH (09:21)
[2016-10-20] MEDS: PROSOURCE / PROSTAT (PYXIS) 30 ML UDC GT SCH (09:21)
[2016-10-20] MEDS: ASCORBIC ACID 500 MG TABLET GT SCH (09:23)
[2016-10-20] MEDS: LABETALOL HCL (100MG) 100 MG TABLET GT SCH ×2 (09:23→21:01)
[2016-10-20] MEDS: HYDROGEN PEROXIDE 480 ML BOTTLE TP SCH ×2 (09:36→21:25)
[2016-10-20] MEDS: HYDROGEL DRESSING 90 GM TUBE TP SCH ×2 (09:36→21:24)
[2016-10-20] MEDS: CLOTRIMAZOLE 1% 15 GM TUBE TP SCH ×2 (09:36→21:25)
[2016-10-20] MEDS: COD LIVER OIL/ZINC OXIDE 120 GM TUBE TP SCH ×4 (09:36→21:24)
[2016-10-20] MEDS: OMEGA GT SCH ×3 (09:37→16:19)
[2016-10-20] MEDS: CARBOXYMETHYLCELLULOSE SODIUM 0.4 ML DROPERETTE EACHEYE SCH (09:37)
[2016-10-20] MEDS: LEVETIRACETAM SOL (5 ML) 100 MG/ML UDC GT SCH ×2 (09:37→21:01)
[2016-10-20] MEDS: LACTOBACILLUS RHAMNOSUS GG 1 EACH CAP.SPRINK GT SCH (09:37)
[2016-10-20] MEDS: CHOLESTYRAMINE/ASPARTAME 4 G/PKT PACKET GT SCH (12:00)
[2016-10-20 19:50] VITALS: BP 128/75
[2016-10-20] MEDS: VALSARTAN 80 MG TABLET GT SCH (22:00)
[2016-10-21] MEDS: IPRATROPIUM NEB FS 0.5 MG/2.5 ML AMPUL.NEB IH SCH ×4 (01:19→20:04)
[2016-10-21] MEDS: ALBUTEROL FS 2.5 MG/3 ML VIAL.NEB NEB SCH ×4 (01:19→20:04)
[2016-10-21] MEDS: GLYTROL 1,000 ML BAG GT PRN (04:46)
[2016-10-21] MEDS: PANTOPRAZOLE 40 MG/PACK PACK GT SCH (05:42)
[2016-10-21] MEDS: LEVOTHYROXINE SODIUM 88 MCG TABLET GT SCH (05:42)
[2016-10-21] MEDS: BLOOD SUGAR DIAGNOSTIC 1 EACH STRIP IN SCH ×2 (05:42→17:49)
[2016-10-21] MEDS: INSULIN REGULAR, HUMAN 100 UNIT/ML 3 ML VIAL SQ PRN (05:42)
[2016-10-21 07:37] VITALS: BP 140/65
[2016-10-21] MEDS: HYDROGEL DRESSING 90 GM TUBE TP SCH ×2 (09:48→20:18)
[2016-10-21] MEDS: LABETALOL HCL (100MG) 100 MG TABLET GT SCH ×2 (09:48→20:15)
[2016-10-21] MEDS: MVI/MINERALS LIQUID (CEROVITE) GT SCH (09:48)
[2016-10-21] MEDS: CARBOXYMETHYLCELLULOSE SODIUM 0.4 ML DROPERETTE EACHEYE SCH (09:48)
[2016-10-21] MEDS: LACTOBACILLUS RHAMNOSUS GG 1 EACH CAP.SPRINK GT SCH (09:48)
[2016-10-21] MEDS: ASCORBIC ACID 500 MG TABLET GT SCH (09:48)
[2016-10-21] MEDS: PROSOURCE / PROSTAT (PYXIS) 30 ML UDC GT SCH (09:48)
[2016-10-21] MEDS: OMEGA GT SCH ×3 (09:48→17:49)
[2016-10-21] MEDS: LEVETIRACETAM SOL (5 ML) 100 MG/ML UDC GT SCH ×2 (09:48→20:15)
[2016-10-21] MEDS: COD LIVER OIL/ZINC OXIDE 120 GM TUBE TP SCH ×4 (09:49→20:19)
[2016-10-21] MEDS: HYDROGEN PEROXIDE 480 ML BOTTLE TP SCH ×2 (09:49→20:19)
[2016-10-21] MEDS: CLOTRIMAZOLE 1% 15 GM TUBE TP SCH ×2 (09:49→20:19)
[2016-10-21] MEDS: CHOLESTYRAMINE/ASPARTAME 4 G/PKT PACKET GT SCH (12:00)
[2016-10-21 20:13] VITALS: BP 97/61
[2016-10-21] MEDS: VALSARTAN 80 MG TABLET GT SCH (22:02)
[2016-10-22 01:00] VITALS: BP 114/64
[2016-10-22] MEDS: ALBUTEROL FS 2.5 MG/3 ML VIAL.NEB NEB SCH ×4 (02:03→19:50)
[2016-10-22] MEDS: IPRATROPIUM NEB FS 0.5 MG/2.5 ML AMPUL.NEB IH SCH ×4 (02:03→19:50)
[2016-10-22] MEDS: LEVOTHYROXINE SODIUM 88 MCG TABLET GT SCH (05:18)
[2016-10-22] MEDS: PANTOPRAZOLE 40 MG/PACK PACK GT SCH (05:18)
[2016-10-22] MEDS: GLYTROL 1,000 ML BAG GT PRN ×2 (05:19→22:26)
[2016-10-22 05:30] VITALS: BP 104/54
[2016-10-22] MEDS: BLOOD SUGAR DIAGNOSTIC 1 EACH STRIP IN SCH ×2 (05:38→18:07)
[2016-10-22] MEDS: INSULIN REGULAR, HUMAN 100 UNIT/ML 3 ML VIAL SQ PRN (05:39)
[2016-10-22 07:43] VITALS: BP 110/65
[2016-10-22] MEDS: OMEGA GT SCH ×3 (08:17→17:00)
[2016-10-22] MEDS: LEVETIRACETAM SOL (5 ML) 100 MG/ML UDC GT SCH ×2 (08:17→20:19)
[2016-10-22] MEDS: LACTOBACILLUS RHAMNOSUS GG 1 EACH CAP.SPRINK GT SCH (08:17)
[2016-10-22] MEDS: CARBOXYMETHYLCELLULOSE SODIUM 0.4 ML DROPERETTE EACHEYE SCH (08:17)
[2016-10-22] MEDS: LABETALOL HCL (100MG) 100 MG TABLET GT SCH ×2 (08:18→20:19)
[2016-10-22] MEDS: PROSOURCE / PROSTAT (PYXIS) 30 ML UDC GT SCH (08:18)
[2016-10-22] MEDS: ASCORBIC ACID 500 MG TABLET GT SCH (08:18)
[2016-10-22] MEDS: MVI/MINERALS LIQUID (CEROVITE) GT SCH (08:18)
[2016-10-22] MEDS: HYDROGEL DRESSING 90 GM TUBE TP SCH ×2 (10:30→20:19)
[2016-10-22] MEDS: HYDROGEN PEROXIDE 480 ML BOTTLE TP SCH ×2 (10:30→20:20)
[2016-10-22] MEDS: CLOTRIMAZOLE 1% 15 GM TUBE TP SCH ×2 (10:30→20:20)
[2016-10-22] MEDS: COD LIVER OIL/ZINC OXIDE 120 GM TUBE TP SCH ×4 (10:30→20:20)
[2016-10-22] MEDS: CHOLESTYRAMINE/ASPARTAME 4 G/PKT PACKET GT SCH (12:00)
[2016-10-22 21:37] VITALS: BP 128/72
[2016-10-22] MEDS: VALSARTAN 80 MG TABLET GT SCH (21:58)
[2016-10-23 00:45] VITALS: BP 123/67
[2016-10-23] MEDS: IPRATROPIUM NEB FS 0.5 MG/2.5 ML AMPUL.NEB IH SCH ×4 (01:12→19:55)
[2016-10-23] MEDS: ALBUTEROL FS 2.5 MG/3 ML VIAL.NEB NEB SCH ×4 (01:12→19:55)
[2016-10-23 05:15] VITALS: BP 119/65
[2016-10-23] MEDS: PANTOPRAZOLE 40 MG/PACK PACK GT SCH (06:10)
[2016-10-23] MEDS: INSULIN REGULAR, HUMAN 100 UNIT/ML 3 ML VIAL SQ PRN (06:10)
[2016-10-23] MEDS: BLOOD SUGAR DIAGNOSTIC 1 EACH STRIP IN SCH ×2 (06:10→17:42)
[2016-10-23] MEDS: LEVOTHYROXINE SODIUM 88 MCG TABLET GT SCH (06:10)
[2016-10-23 07:53] VITALS: BP 115/65
[2016-10-23] MEDS: LACTOBACILLUS RHAMNOSUS GG 1 EACH CAP.SPRINK GT SCH (09:32)
[2016-10-23] MEDS: OMEGA GT SCH ×3 (09:32→17:42)
[2016-10-23] MEDS: CARBOXYMETHYLCELLULOSE SODIUM 0.4 ML DROPERETTE EACHEYE SCH (09:32)
[2016-10-23] MEDS: LEVETIRACETAM SOL (5 ML) 100 MG/ML UDC GT SCH ×2 (09:33→21:13)
[2016-10-23] MEDS: LABETALOL HCL (100MG) 100 MG TABLET GT SCH ×2 (09:33→21:13)
[2016-10-23] MEDS: ASCORBIC ACID 500 MG TABLET GT SCH (09:33)
[2016-10-23] MEDS: PROSOURCE / PROSTAT (PYXIS) 30 ML UDC GT SCH (09:33)
[2016-10-23] MEDS: MVI/MINERALS LIQUID (CEROVITE) GT SCH (09:33)
[2016-10-23] MEDS: HYDROGEL DRESSING 90 GM TUBE TP SCH ×2 (09:37→21:13)
[2016-10-23] MEDS: CLOTRIMAZOLE 1% 15 GM TUBE TP SCH ×2 (09:38→21:13)
[2016-10-23] MEDS: HYDROGEN PEROXIDE 480 ML BOTTLE TP SCH ×2 (09:38→21:13)
[2016-10-23] MEDS: COD LIVER OIL/ZINC OXIDE 120 GM TUBE TP SCH ×4 (09:38→21:13)
[2016-10-23] MEDS: CHOLESTYRAMINE/ASPARTAME 4 G/PKT PACKET GT SCH (11:52)
[2016-10-23 20:21] VITALS: BP 119/57
[2016-10-23] MEDS: VALSARTAN 80 MG TABLET GT SCH (21:14)
[2016-10-24] MEDS: ALBUTEROL FS 2.5 MG/3 ML VIAL.NEB NEB SCH ×4 (01:43→19:48)
[2016-10-24] MEDS: IPRATROPIUM NEB FS 0.5 MG/2.5 ML AMPUL.NEB IH SCH ×4 (01:43→19:48)
[2016-10-24] MEDS: BLOOD SUGAR DIAGNOSTIC 1 EACH STRIP IN SCH ×2 (05:31→18:45)
[2016-10-24] MEDS: PANTOPRAZOLE 40 MG/PACK PACK GT SCH (05:31)
[2016-10-24] MEDS: LEVOTHYROXINE SODIUM 88 MCG TABLET GT SCH (05:31)
[2016-10-24 08:10] VITALS: BP 111/62
[2016-10-24] MEDS: LACTOBACILLUS RHAMNOSUS GG 1 EACH CAP.SPRINK GT SCH (08:37)
[2016-10-24] MEDS: OMEGA GT SCH ×3 (08:37→16:57)
[2016-10-24] MEDS: PROSOURCE / PROSTAT (PYXIS) 30 ML UDC GT SCH (08:37)
[2016-10-24] MEDS: MVI/MINERALS LIQUID (CEROVITE) GT SCH (08:37)
[2016-10-24] MEDS: LEVETIRACETAM SOL (5 ML) 100 MG/ML UDC GT SCH ×2 (08:37→21:12)
[2016-10-24] MEDS: CARBOXYMETHYLCELLULOSE SODIUM 0.4 ML DROPERETTE EACHEYE SCH (08:37)
[2016-10-24] MEDS: ASCORBIC ACID 500 MG TABLET GT SCH (08:38)
[2016-10-24] MEDS: LABETALOL HCL (100MG) 100 MG TABLET GT SCH ×2 (08:38→21:12)
[2016-10-24] MEDS: CHOLESTYRAMINE/ASPARTAME 4 G/PKT PACKET GT SCH (12:00)
[2016-10-24] MEDS: HYDROGEL DRESSING 90 GM TUBE TP SCH ×2 (13:00→21:12)
[2016-10-24] MEDS: COD LIVER OIL/ZINC OXIDE 120 GM TUBE TP SCH ×4 (13:00→21:12)
[2016-10-24] MEDS: HYDROGEN PEROXIDE 480 ML BOTTLE TP SCH ×2 (13:00→21:12)
[2016-10-24] MEDS: CLOTRIMAZOLE 1% 15 GM TUBE TP SCH ×2 (13:00→21:12)
[2016-10-24] MEDS: GLYTROL 1,000 ML BAG GT PRN (14:23)
[2016-10-24 20:11] VITALS: BP 123/81
[2016-10-24] MEDS: VALSARTAN 80 MG TABLET GT SCH (21:13)
[2016-10-25] MEDS: IPRATROPIUM NEB FS 0.5 MG/2.5 ML AMPUL.NEB IH SCH ×4 (02:00→20:01)
[2016-10-25] MEDS: ALBUTEROL FS 2.5 MG/3 ML VIAL.NEB NEB SCH ×4 (02:00→20:01)
[2016-10-25] MEDS: LEVOTHYROXINE SODIUM 88 MCG TABLET GT SCH (05:36)
[2016-10-25] MEDS: BLOOD SUGAR DIAGNOSTIC 1 EACH STRIP IN SCH ×2 (05:36→17:54)
[2016-10-25] MEDS: PANTOPRAZOLE 40 MG/PACK PACK GT SCH (05:36)
[2016-10-25 08:28] VITALS: BP 108/66
[2016-10-25] MEDS: ASCORBIC ACID 500 MG TABLET GT SCH (09:00)
[2016-10-25] MEDS: LABETALOL HCL (100MG) 100 MG TABLET GT SCH ×2 (09:00→21:00)
[2016-10-25] MEDS: LACTOBACILLUS RHAMNOSUS GG 1 EACH CAP.SPRINK GT SCH (09:00)
[2016-10-25] MEDS: OMEGA GT SCH ×3 (09:00→16:41)
[2016-10-25] MEDS: MVI/MINERALS LIQUID (CEROVITE) GT SCH (09:00)
[2016-10-25] MEDS: PROSOURCE / PROSTAT (PYXIS) 30 ML UDC GT SCH (09:00)
[2016-10-25] MEDS: LEVETIRACETAM SOL (5 ML) 100 MG/ML UDC GT SCH ×2 (09:00→21:10)
[2016-10-25] MEDS: CARBOXYMETHYLCELLULOSE SODIUM 0.4 ML DROPERETTE EACHEYE SCH (09:00)
[2016-10-25] MEDS: HYDROGEN PEROXIDE 480 ML BOTTLE TP SCH ×2 (10:30→21:11)
[2016-10-25] MEDS: COD LIVER OIL/ZINC OXIDE 120 GM TUBE TP SCH ×4 (10:30→21:11)
[2016-10-25] MEDS: CLOTRIMAZOLE 1% 15 GM TUBE TP SCH ×2 (10:30→21:12)
[2016-10-25] MEDS: HYDROGEL DRESSING 90 GM TUBE TP SCH ×2 (10:30→21:11)
[2016-10-25] MEDS: GLYTROL 1,000 ML BAG GT PRN (11:45)
[2016-10-25] MEDS: CHOLESTYRAMINE/ASPARTAME 4 G/PKT PACKET GT SCH (12:00)
[2016-10-25 20:09] VITALS: BP 107/55
[2016-10-25] MEDS: VALSARTAN 80 MG TABLET GT SCH (21:12)
[2016-10-26] MEDS: IPRATROPIUM NEB FS 0.5 MG/2.5 ML AMPUL.NEB IH SCH ×4 (00:44→20:02)
[2016-10-26] MEDS: ALBUTEROL FS 2.5 MG/3 ML VIAL.NEB NEB SCH ×4 (00:44→20:02)
[2016-10-26] MEDS: PANTOPRAZOLE 40 MG/PACK PACK GT SCH (05:47)
[2016-10-26] MEDS: LEVOTHYROXINE SODIUM 88 MCG TABLET GT SCH (05:47)
[2016-10-26] MEDS: BLOOD SUGAR DIAGNOSTIC 1 EACH STRIP IN SCH ×2 (05:47→17:34)
[2016-10-26 08:11] VITALS: BP 105/44
[2016-10-26] MEDS: LABETALOL HCL (100MG) 100 MG TABLET GT SCH ×2 (09:00→21:19)
[2016-10-26] MEDS: PROSOURCE / PROSTAT (PYXIS) 30 ML UDC GT SCH (09:36)
[2016-10-26] MEDS: CARBOXYMETHYLCELLULOSE SODIUM 0.4 ML DROPERETTE EACHEYE SCH (09:36)
[2016-10-26] MEDS: LEVETIRACETAM SOL (5 ML) 100 MG/ML UDC GT SCH ×2 (09:36→21:18)
[2016-10-26] MEDS: OMEGA GT SCH ×3 (09:36→17:34)
[2016-10-26] MEDS: MVI/MINERALS LIQUID (CEROVITE) GT SCH (09:36)
[2016-10-26] MEDS: LACTOBACILLUS RHAMNOSUS GG 1 EACH CAP.SPRINK GT SCH (09:36)
[2016-10-26] MEDS: ASCORBIC ACID 500 MG TABLET GT SCH (09:37)
[2016-10-26] MEDS: GLYTROL 1,000 ML BAG GT PRN (09:38)
[2016-10-26] MEDS: CHOLESTYRAMINE/ASPARTAME 4 G/PKT PACKET GT SCH (12:54)
[2016-10-26] MEDS: CLOTRIMAZOLE 1% 15 GM TUBE TP SCH ×2 (12:54→21:19)
[2016-10-26] MEDS: COD LIVER OIL/ZINC OXIDE 120 GM TUBE TP SCH ×4 (12:54→21:19)
[2016-10-26] MEDS: HYDROGEN PEROXIDE 480 ML BOTTLE TP SCH ×2 (12:54→21:19)
[2016-10-26] MEDS: HYDROGEL DRESSING 90 GM TUBE TP SCH ×2 (12:54→21:19)
[2016-10-26] MEDS: INSULIN REGULAR, HUMAN 100 UNIT/ML 3 ML VIAL SQ PRN (17:35)
[2016-10-26 20:07] VITALS: BP 124/74
[2016-10-26] MEDS: VALSARTAN 80 MG TABLET GT SCH (21:19)
[2016-10-27] MEDS: IPRATROPIUM NEB FS 0.5 MG/2.5 ML AMPUL.NEB IH SCH ×4 (02:01→19:26)
[2016-10-27] MEDS: ALBUTEROL FS 2.5 MG/3 ML VIAL.NEB NEB SCH ×4 (02:01→19:26)
[2016-10-27] MEDS: GLYTROL 1,000 ML BAG GT PRN (05:29)
[2016-10-27] MEDS: PANTOPRAZOLE 40 MG/PACK PACK GT SCH (05:29)
[2016-10-27] MEDS: BLOOD SUGAR DIAGNOSTIC 1 EACH STRIP IN SCH ×2 (05:29→17:45)
[2016-10-27] MEDS: LEVOTHYROXINE SODIUM 88 MCG TABLET GT SCH (05:29)
[2016-10-27] MEDS: INSULIN REGULAR, HUMAN 100 UNIT/ML 3 ML VIAL SQ PRN (05:29)
[2016-10-27 08:00] VITALS: BP 105/60
[2016-10-27] MEDS: PROSOURCE / PROSTAT (PYXIS) 30 ML UDC GT SCH (09:00)
[2016-10-27] MEDS: COD LIVER OIL/ZINC OXIDE 120 GM TUBE TP SCH ×4 (09:00→20:22)
[2016-10-27] MEDS: LEVETIRACETAM SOL (5 ML) 100 MG/ML UDC GT SCH ×2 (09:00→20:22)
[2016-10-27] MEDS: LABETALOL HCL (100MG) 100 MG TABLET GT SCH ×2 (09:00→20:22)
[2016-10-27] MEDS: CARBOXYMETHYLCELLULOSE SODIUM 0.4 ML DROPERETTE EACHEYE SCH (09:00)
[2016-10-27] MEDS: MVI/MINERALS LIQUID (CEROVITE) GT SCH (09:00)
[2016-10-27] MEDS: HYDROGEN PEROXIDE 480 ML BOTTLE TP SCH ×2 (09:00→20:22)
[2016-10-27] MEDS: OMEGA GT SCH ×3 (09:00→17:45)
[2016-10-27] MEDS: LACTOBACILLUS RHAMNOSUS GG 1 EACH CAP.SPRINK GT SCH (09:00)
[2016-10-27] MEDS: ASCORBIC ACID 500 MG TABLET GT SCH (09:00)
[2016-10-27] MEDS: CLOTRIMAZOLE 1% 15 GM TUBE TP SCH ×2 (09:00→20:22)
[2016-10-27] MEDS: HYDROGEL DRESSING 90 GM TUBE TP SCH ×2 (09:00→20:22)
[2016-10-27] MEDS: CHOLESTYRAMINE/ASPARTAME 4 G/PKT PACKET GT SCH (12:56)
[2016-10-27 19:53] VITALS: BP 120/63
[2016-10-27] MEDS: VALSARTAN 80 MG TABLET GT SCH ×2 (22:30→22:34)
[2016-10-28 01:00] VITALS: BP 121/52
[2016-10-28] MEDS: ALBUTEROL FS 2.5 MG/3 ML VIAL.NEB NEB SCH ×4 (01:57→19:58)
[2016-10-28] MEDS: IPRATROPIUM NEB FS 0.5 MG/2.5 ML AMPUL.NEB IH SCH ×4 (01:57→19:58)
[2016-10-28] MEDS: GLYTROL 1,000 ML BAG GT PRN (02:56)
[2016-10-28] MEDS: LEVOTHYROXINE SODIUM 88 MCG TABLET GT SCH (05:32)
[2016-10-28] MEDS: PANTOPRAZOLE 40 MG/PACK PACK GT SCH (05:32)
[2016-10-28] MEDS: BLOOD SUGAR DIAGNOSTIC 1 EACH STRIP IN SCH ×2 (05:32→17:54)
[2016-10-28] MEDS: INSULIN REGULAR, HUMAN 100 UNIT/ML 3 ML VIAL SQ PRN (05:33)
[2016-10-28 05:34] VITALS: BP 109/51
[2016-10-28 07:50] VITALS: BP 119/77
[2016-10-28] MEDS: MVI/MINERALS LIQUID (CEROVITE) GT SCH (09:00)
[2016-10-28] MEDS: CLOTRIMAZOLE 1% 15 GM TUBE TP SCH ×2 (09:00→20:30)
[2016-10-28] MEDS: ASCORBIC ACID 500 MG TABLET GT SCH (09:00)
[2016-10-28] MEDS: LEVETIRACETAM SOL (5 ML) 100 MG/ML UDC GT SCH ×2 (09:00→20:29)
[2016-10-28] MEDS: CARBOXYMETHYLCELLULOSE SODIUM 0.4 ML DROPERETTE EACHEYE SCH (09:00)
[2016-10-28] MEDS: LACTOBACILLUS RHAMNOSUS GG 1 EACH CAP.SPRINK GT SCH (09:00)
[2016-10-28] MEDS: HYDROGEN PEROXIDE 480 ML BOTTLE TP SCH ×2 (09:00→20:29)
[2016-10-28] MEDS: PROSOURCE / PROSTAT (PYXIS) 30 ML UDC GT SCH ×2 (09:00→17:53)
[2016-10-28] MEDS: COD LIVER OIL/ZINC OXIDE 120 GM TUBE TP SCH ×4 (09:00→20:29)
[2016-10-28] MEDS: OMEGA GT SCH ×3 (09:00→17:53)
[2016-10-28] MEDS: HYDROGEL DRESSING 90 GM TUBE TP SCH ×2 (09:00→20:29)
[2016-10-28] MEDS: LABETALOL HCL (100MG) 100 MG TABLET GT SCH ×2 (09:00→20:29)
[2016-10-28] MEDS: CHOLESTYRAMINE/ASPARTAME 4 G/PKT PACKET GT SCH (12:53)
--- NOTE | 2016-10-28 14:40 | NUR ---
Per dietary recommendation, MD with order to increase Prostat to BID for protein supplement/ aid in wound healing. Order noted and carried out.
[2016-10-28 19:37] VITALS: BP 109/72
[2016-10-28] MEDS: VALSARTAN 80 MG TABLET GT SCH (22:00)
[2016-10-29 01:00] VITALS: BP 107/76
[2016-10-29] MEDS: GLYTROL 1,000 ML BAG GT PRN (01:03)
[2016-10-29] MEDS: IPRATROPIUM NEB FS 0.5 MG/2.5 ML AMPUL.NEB IH SCH ×4 (02:19→19:24)
[2016-10-29] MEDS: ALBUTEROL FS 2.5 MG/3 ML VIAL.NEB NEB SCH ×4 (02:19→19:24)
[2016-10-29 05:08] VITALS: BP 106/58
[2016-10-29] MEDS: PANTOPRAZOLE 40 MG/PACK PACK GT SCH (06:18)
[2016-10-29] MEDS: LEVOTHYROXINE SODIUM 88 MCG TABLET GT SCH (06:18)
[2016-10-29] MEDS: BLOOD SUGAR DIAGNOSTIC 1 EACH STRIP IN SCH ×2 (06:18→17:44)
[2016-10-29] MEDS: INSULIN REGULAR, HUMAN 100 UNIT/ML 3 ML VIAL SQ PRN (06:19)
[2016-10-29 07:49] VITALS: BP 135/69
[2016-10-29] MEDS: HYDROGEN PEROXIDE 480 ML BOTTLE TP SCH ×2 (08:39→20:55)
[2016-10-29] MEDS: LABETALOL HCL (100MG) 100 MG TABLET GT SCH ×2 (08:39→20:50)
[2016-10-29] MEDS: HYDROGEL DRESSING 90 GM TUBE TP SCH ×2 (08:39→20:55)
[2016-10-29] MEDS: OMEGA GT SCH ×3 (08:39→17:44)
[2016-10-29] MEDS: MVI/MINERALS LIQUID (CEROVITE) GT SCH (08:39)
[2016-10-29] MEDS: LEVETIRACETAM SOL (5 ML) 100 MG/ML UDC GT SCH ×2 (08:39→20:50)
[2016-10-29] MEDS: LACTOBACILLUS RHAMNOSUS GG 1 EACH CAP.SPRINK GT SCH (08:39)
[2016-10-29] MEDS: ASCORBIC ACID 500 MG TABLET GT SCH (08:39)
[2016-10-29] MEDS: COD LIVER OIL/ZINC OXIDE 120 GM TUBE TP SCH ×4 (08:39→20:55)
[2016-10-29] MEDS: PROSOURCE / PROSTAT (PYXIS) 30 ML UDC GT SCH ×2 (08:39→17:44)
[2016-10-29] MEDS: CARBOXYMETHYLCELLULOSE SODIUM 0.4 ML DROPERETTE EACHEYE SCH (08:39)
[2016-10-29] MEDS: CLOTRIMAZOLE 1% 15 GM TUBE TP SCH ×2 (08:40→20:55)
--- NOTE | 2016-10-29 10:20 | NUR ---
Seen and examined by Dr Ramirez with no new order.
[2016-10-29] MEDS: CHOLESTYRAMINE/ASPARTAME 4 G/PKT PACKET GT SCH (12:53)
[2016-10-29 19:39] VITALS: BP 107/70
[2016-10-29] MEDS: VALSARTAN 80 MG TABLET GT SCH (22:00)
[2016-10-30 01:04] VITALS: BP 122/69
[2016-10-30] MEDS: IPRATROPIUM NEB FS 0.5 MG/2.5 ML AMPUL.NEB IH SCH ×4 (01:28→19:35)
[2016-10-30] MEDS: ALBUTEROL FS 2.5 MG/3 ML VIAL.NEB NEB SCH ×4 (01:28→19:35)
[2016-10-30] MEDS: GLYTROL 1,000 ML BAG GT PRN ×2 (03:49→21:09)
[2016-10-30 05:21] VITALS: BP 110/63
[2016-10-30] MEDS: LEVOTHYROXINE SODIUM 88 MCG TABLET GT SCH (05:22)
[2016-10-30] MEDS: PANTOPRAZOLE 40 MG/PACK PACK GT SCH (05:22)
[2016-10-30] MEDS: INSULIN REGULAR, HUMAN 100 UNIT/ML 3 ML VIAL SQ PRN (06:05)
[2016-10-30] MEDS: BLOOD SUGAR DIAGNOSTIC 1 EACH STRIP IN SCH ×2 (06:05→17:29)
[2016-10-30 07:53] VITALS: BP 107/55
[2016-10-30] MEDS: OMEGA GT SCH ×3 (08:05→16:41)
[2016-10-30] MEDS: LEVETIRACETAM SOL (5 ML) 100 MG/ML UDC GT SCH ×2 (08:05→21:08)
[2016-10-30] MEDS: CARBOXYMETHYLCELLULOSE SODIUM 0.4 ML DROPERETTE EACHEYE SCH (08:06)
[2016-10-30] MEDS: MVI/MINERALS LIQUID (CEROVITE) GT SCH (08:06)
[2016-10-30] MEDS: PROSOURCE / PROSTAT (PYXIS) 30 ML UDC GT SCH ×2 (08:06→16:41)
[2016-10-30] MEDS: ASCORBIC ACID 500 MG TABLET GT SCH (08:06)
[2016-10-30] MEDS: LACTOBACILLUS RHAMNOSUS GG 1 EACH CAP.SPRINK GT SCH (08:06)
[2016-10-30] MEDS: LABETALOL HCL (100MG) 100 MG TABLET GT SCH ×2 (09:00→21:08)
[2016-10-30] MEDS: HYDROGEL DRESSING 90 GM TUBE TP SCH ×2 (09:38→21:08)
[2016-10-30] MEDS: HYDROGEN PEROXIDE 480 ML BOTTLE TP SCH ×2 (09:38→21:08)
[2016-10-30] MEDS: CLOTRIMAZOLE 1% 15 GM TUBE TP SCH ×2 (09:38→21:09)
[2016-10-30] MEDS: COD LIVER OIL/ZINC OXIDE 120 GM TUBE TP SCH ×4 (09:38→21:08)
[2016-10-30] MEDS: CHOLESTYRAMINE/ASPARTAME 4 G/PKT PACKET GT SCH (12:13)
[2016-10-30 20:17] VITALS: BP 127/72
[2016-10-30] MEDS: VALSARTAN 80 MG TABLET GT SCH (21:09)
[2016-10-31 00:30] VITALS: BP 108/61
[2016-10-31] MEDS: IPRATROPIUM NEB FS 0.5 MG/2.5 ML AMPUL.NEB IH SCH ×4 (01:28→19:50)
[2016-10-31] MEDS: ALBUTEROL FS 2.5 MG/3 ML VIAL.NEB NEB SCH ×4 (01:28→19:50)
[2016-10-31] MEDS: PANTOPRAZOLE 40 MG/PACK PACK GT SCH (05:43)
[2016-10-31] MEDS: BLOOD SUGAR DIAGNOSTIC 1 EACH STRIP IN SCH ×2 (05:43→18:33)
[2016-10-31] MEDS: LEVOTHYROXINE SODIUM 88 MCG TABLET GT SCH (05:43)
[2016-10-31 06:20] VITALS: BP 119/62
[2016-10-31 07:50] VITALS: BP 143/75
[2016-10-31] MEDS: CARBOXYMETHYLCELLULOSE SODIUM 0.4 ML DROPERETTE EACHEYE SCH (09:50)
[2016-10-31] MEDS: LEVETIRACETAM SOL (5 ML) 100 MG/ML UDC GT SCH ×2 (09:50→21:05)
[2016-10-31] MEDS: OMEGA GT SCH ×3 (09:50→17:17)
[2016-10-31] MEDS: PROSOURCE / PROSTAT (PYXIS) 30 ML UDC GT SCH ×2 (09:50→17:17)
[2016-10-31] MEDS: LABETALOL HCL (100MG) 100 MG TABLET GT SCH ×2 (09:50→21:05)
[2016-10-31] MEDS: MVI/MINERALS LIQUID (CEROVITE) GT SCH (09:50)
[2016-10-31] MEDS: LACTOBACILLUS RHAMNOSUS GG 1 EACH CAP.SPRINK GT SCH (09:50)
[2016-10-31] MEDS: COD LIVER OIL/ZINC OXIDE 120 GM TUBE TP SCH ×4 (09:51→21:06)
[2016-10-31] MEDS: HYDROGEL DRESSING 90 GM TUBE TP SCH ×2 (09:51→21:06)
[2016-10-31] MEDS: CLOTRIMAZOLE 1% 15 GM TUBE TP SCH ×2 (09:51→21:06)
[2016-10-31] MEDS: ASCORBIC ACID 500 MG TABLET GT SCH (09:51)
[2016-10-31] MEDS: HYDROGEN PEROXIDE 480 ML BOTTLE TP SCH ×2 (09:51→21:06)
[2016-10-31] MEDS: CHOLESTYRAMINE/ASPARTAME 4 G/PKT PACKET GT SCH (12:47)
[2016-10-31] MEDS: INSULIN REGULAR, HUMAN 100 UNIT/ML 3 ML VIAL SQ PRN (18:33)
[2016-10-31 20:20] VITALS: BP 121/64
[2016-10-31] MEDS: VALSARTAN 80 MG TABLET GT SCH (21:06)
[2016-11-01 01:00] VITALS: BP 106/53
[2016-11-01] MEDS: IPRATROPIUM NEB FS 0.5 MG/2.5 ML AMPUL.NEB IH SCH ×4 (01:44→19:51)
[2016-11-01] MEDS: ALBUTEROL FS 2.5 MG/3 ML VIAL.NEB NEB SCH ×4 (01:44→19:51)
[2016-11-01] MEDS: PANTOPRAZOLE 40 MG/PACK PACK GT SCH (05:54)
[2016-11-01] MEDS: LEVOTHYROXINE SODIUM 88 MCG TABLET GT SCH (05:54)
[2016-11-01] MEDS: BLOOD SUGAR DIAGNOSTIC 1 EACH STRIP IN SCH ×2 (05:54→18:25)
[2016-11-01 06:20] VITALS: BP 113/52
[2016-11-01 07:56] VITALS: BP 108/67
[2016-11-01] MEDS: LABETALOL HCL (100MG) 100 MG TABLET GT SCH ×2 (09:00→21:24)
[2016-11-01] MEDS: LACTOBACILLUS RHAMNOSUS GG 1 EACH CAP.SPRINK GT SCH (09:48)
[2016-11-01] MEDS: CARBOXYMETHYLCELLULOSE SODIUM 0.4 ML DROPERETTE EACHEYE SCH (09:48)
[2016-11-01] MEDS: ASCORBIC ACID 500 MG TABLET GT SCH (09:49)
[2016-11-01] MEDS: COD LIVER OIL/ZINC OXIDE 120 GM TUBE TP SCH ×4 (09:49→21:25)
[2016-11-01] MEDS: HYDROGEN PEROXIDE 480 ML BOTTLE TP SCH ×2 (09:49→21:25)
[2016-11-01] MEDS: MVI/MINERALS LIQUID (CEROVITE) GT SCH (09:49)
[2016-11-01] MEDS: OMEGA GT SCH ×3 (09:49→17:00)
[2016-11-01] MEDS: HYDROGEL DRESSING 90 GM TUBE TP SCH ×2 (09:49→21:24)
[2016-11-01] MEDS: PROSOURCE / PROSTAT (PYXIS) 30 ML UDC GT SCH ×2 (09:49→17:00)
[2016-11-01] MEDS: LEVETIRACETAM SOL (5 ML) 100 MG/ML UDC GT SCH ×2 (09:49→21:24)
[2016-11-01] MEDS: CLOTRIMAZOLE 1% 15 GM TUBE TP SCH ×2 (09:49→21:25)
[2016-11-01] MEDS: CHOLESTYRAMINE/ASPARTAME 4 G/PKT PACKET GT SCH (12:00)
[2016-11-01] MEDS: INSULIN REGULAR, HUMAN 100 UNIT/ML 3 ML VIAL SQ PRN (18:25)
[2016-11-01 20:06] VITALS: BP 125/62
[2016-11-01] MEDS: VALSARTAN 80 MG TABLET GT SCH (21:25)
[2016-11-02] MEDS: ALBUTEROL FS 2.5 MG/3 ML VIAL.NEB NEB SCH ×4 (01:36→19:58)
[2016-11-02] MEDS: IPRATROPIUM NEB FS 0.5 MG/2.5 ML AMPUL.NEB IH SCH ×4 (01:36→19:58)
[2016-11-02] MEDS: BLOOD SUGAR DIAGNOSTIC 1 EACH STRIP IN SCH ×2 (06:06→17:11)
[2016-11-02] MEDS: LEVOTHYROXINE SODIUM 88 MCG TABLET GT SCH (06:06)
[2016-11-02] MEDS: PANTOPRAZOLE 40 MG/PACK PACK GT SCH (06:06)
[2016-11-02 08:11] VITALS: BP 148/50
[2016-11-02] MEDS: COD LIVER OIL/ZINC OXIDE 120 GM TUBE TP SCH ×4 (09:00→21:37)
[2016-11-02] MEDS: CLOTRIMAZOLE 1% 15 GM TUBE TP SCH ×2 (09:00→21:37)
[2016-11-02] MEDS: HYDROGEN PEROXIDE 480 ML BOTTLE TP SCH ×2 (09:00→21:37)
[2016-11-02] MEDS: HYDROGEL DRESSING 90 GM TUBE TP SCH ×2 (09:00→21:36)
[2016-11-02] MEDS: LEVETIRACETAM SOL (5 ML) 100 MG/ML UDC GT SCH ×2 (09:44→21:45)
[2016-11-02] MEDS: LACTOBACILLUS RHAMNOSUS GG 1 EACH CAP.SPRINK GT SCH (09:44)
[2016-11-02] MEDS: CARBOXYMETHYLCELLULOSE SODIUM 0.4 ML DROPERETTE EACHEYE SCH (09:44)
[2016-11-02] MEDS: PROSOURCE / PROSTAT (PYXIS) 30 ML UDC GT SCH ×2 (09:44→17:11)
[2016-11-02] MEDS: OMEGA GT SCH ×3 (09:44→17:11)
[2016-11-02] MEDS: MVI/MINERALS LIQUID (CEROVITE) GT SCH (09:44)
[2016-11-02] MEDS: LABETALOL HCL (100MG) 100 MG TABLET GT SCH ×2 (09:45→21:36)
[2016-11-02] MEDS: ASCORBIC ACID 500 MG TABLET GT SCH (09:45)
[2016-11-02] MEDS: hydrALAZINE HCL 10 MG TABLET GT PRN ×3 (09:46→17:21)
[2016-11-02] MEDS: GLYTROL 1,000 ML BAG GT PRN (10:35)
[2016-11-02] MEDS: CHOLESTYRAMINE/ASPARTAME 4 G/PKT PACKET GT SCH (12:00)
[2016-11-02] MEDS: INSULIN REGULAR, HUMAN 100 UNIT/ML 3 ML VIAL SQ PRN (17:13)
[2016-11-02 20:12] VITALS: BP 132/65
[2016-11-02] MEDS: VALSARTAN 80 MG TABLET GT SCH (22:48)
[2016-11-03 01:00] VITALS: BP 119/54
[2016-11-03] MEDS: ALBUTEROL FS 2.5 MG/3 ML VIAL.NEB NEB SCH ×4 (01:21→20:05)
[2016-11-03] MEDS: IPRATROPIUM NEB FS 0.5 MG/2.5 ML AMPUL.NEB IH SCH ×4 (01:21→20:05)
[2016-11-03] MEDS: GLYTROL 1,000 ML BAG GT PRN ×2 (05:15→22:38)
[2016-11-03] MEDS: PANTOPRAZOLE 40 MG/PACK PACK GT SCH (06:36)
[2016-11-03] MEDS: LEVOTHYROXINE SODIUM 88 MCG TABLET GT SCH (06:36)
[2016-11-03] MEDS: BLOOD SUGAR DIAGNOSTIC 1 EACH STRIP IN SCH ×2 (06:36→18:11)
[2016-11-03] MEDS: INSULIN REGULAR, HUMAN 100 UNIT/ML 3 ML VIAL SQ PRN (06:36)
[2016-11-03 06:40] VITALS: BP 117/65
[2016-11-03 07:49] VITALS: BP 99/54
[2016-11-03] MEDS: LABETALOL HCL (100MG) 100 MG TABLET GT SCH ×2 (09:00→21:00)
[2016-11-03] MEDS: LEVETIRACETAM SOL (5 ML) 100 MG/ML UDC GT SCH ×2 (09:51→21:00)
[2016-11-03] MEDS: LACTOBACILLUS RHAMNOSUS GG 1 EACH CAP.SPRINK GT SCH (09:51)
[2016-11-03] MEDS: MVI/MINERALS LIQUID (CEROVITE) GT SCH (09:51)
[2016-11-03] MEDS: PROSOURCE / PROSTAT (PYXIS) 30 ML UDC GT SCH ×2 (09:51→17:00)
[2016-11-03] MEDS: OMEGA GT SCH ×3 (09:51→17:00)
[2016-11-03] MEDS: CARBOXYMETHYLCELLULOSE SODIUM 0.4 ML DROPERETTE EACHEYE SCH (09:51)
[2016-11-03] MEDS: ASCORBIC ACID 500 MG TABLET GT SCH (09:52)
[2016-11-03] MEDS: HYDROGEL DRESSING 90 GM TUBE TP SCH ×2 (09:52→21:00)
[2016-11-03] MEDS: HYDROGEN PEROXIDE 480 ML BOTTLE TP SCH ×2 (09:53→21:00)
[2016-11-03] MEDS: COD LIVER OIL/ZINC OXIDE 120 GM TUBE TP SCH ×4 (09:53→21:00)
[2016-11-03] MEDS: CLOTRIMAZOLE 1% 15 GM TUBE TP SCH ×2 (09:53→21:00)
[2016-11-03] MEDS: CHOLESTYRAMINE/ASPARTAME 4 G/PKT PACKET GT SCH (12:48)
[2016-11-03 20:06] VITALS: BP 127/66
[2016-11-03] MEDS: VALSARTAN 80 MG TABLET GT SCH (22:33)
[2016-11-04] MEDS ORDERED: BLOOD SUGAR DIAGNOSTIC 1 EACH STRIP IN SCH
[2016-11-04 00:03] VITALS: BP 109/57
[2016-11-04] MEDS: ALBUTEROL FS 2.5 MG/3 ML VIAL.NEB NEB SCH ×4 (02:23→19:45)
[2016-11-04] MEDS: IPRATROPIUM NEB FS 0.5 MG/2.5 ML AMPUL.NEB IH SCH ×4 (02:23→19:45)
[2016-11-04] MEDS: LEVOTHYROXINE SODIUM 88 MCG TABLET GT SCH (06:45)
[2016-11-04] MEDS: PANTOPRAZOLE 40 MG/PACK PACK GT SCH (06:45)
[2016-11-04] MEDS: BLOOD SUGAR DIAGNOSTIC 1 EACH STRIP IN SCH ×3 (06:46→22:43)
[2016-11-04] MEDS: INSULIN REGULAR, HUMAN 100 UNIT/ML 3 ML VIAL SQ PRN (06:46)
[2016-11-04 07:46] VITALS: BP 97/62
[2016-11-04] MEDS: OMEGA GT SCH ×3 (08:54→17:18)
[2016-11-04] MEDS: LABETALOL HCL (100MG) 100 MG TABLET GT SCH ×2 (08:54→21:32)
[2016-11-04] MEDS: LEVETIRACETAM SOL (5 ML) 100 MG/ML UDC GT SCH ×2 (08:54→21:32)
[2016-11-04] MEDS: ASCORBIC ACID 500 MG TABLET GT SCH (08:54)
[2016-11-04] MEDS: PROSOURCE / PROSTAT (PYXIS) 30 ML UDC GT SCH ×2 (08:54→17:19)
[2016-11-04] MEDS: LACTOBACILLUS RHAMNOSUS GG 1 EACH CAP.SPRINK GT SCH (08:54)
[2016-11-04] MEDS: MVI/MINERALS LIQUID (CEROVITE) GT SCH (08:54)
[2016-11-04] MEDS: CARBOXYMETHYLCELLULOSE SODIUM 0.4 ML DROPERETTE EACHEYE SCH (08:54)
[2016-11-04] MEDS: CLOTRIMAZOLE 1% 15 GM TUBE TP SCH ×2 (08:55→21:33)
[2016-11-04] MEDS: HYDROGEL DRESSING 90 GM TUBE TP SCH ×2 (08:55→21:32)
[2016-11-04] MEDS: HYDROGEN PEROXIDE 480 ML BOTTLE TP SCH ×2 (08:55→21:32)
[2016-11-04] MEDS: COD LIVER OIL/ZINC OXIDE 120 GM TUBE TP SCH ×4 (08:55→21:32)
[2016-11-04] MEDS ORDERED: ALBUTEROL FS 2.5 MG/3 ML VIAL.NEB NEB PRN (11:00)
[2016-11-04] MEDS ORDERED: DEXTROSE 50%-WATER 50 ML DISP.SYRIN IV PRN (11:00)
[2016-11-04] MEDS ORDERED: MAG HYDROX/AL HYDROX/SIMETH 30 ML UDC GT PRN (11:00)
[2016-11-04] MEDS ORDERED: LOPERAMIDE HCL UDC(2 MG/10 ML) 2 MG/10 ML UDC GT PRN (11:00)
[2016-11-04] MEDS ORDERED: LORAZEPAM 0.5 MG TABLET GT PRN (11:00)
[2016-11-04] MEDS ORDERED: MAGNESIUM HYDROXIDE 30 ML UDC GT PRN (11:00)
[2016-11-04] MEDS ORDERED: ONDANSETRON 4 MG TAB.RAPDIS GT PRN (11:00)
[2016-11-04] MEDS ORDERED: HYDROCODONE/APAP 5/325MG 1 EACH TABLET GT PRN (11:00)
[2016-11-04] MEDS ORDERED: INSULIN REGULAR, HUMAN 100 UNIT/ML 3 ML VIAL SQ PRN ×2 (11:00)
[2016-11-04] MEDS ORDERED: HYDROGEN PEROXIDE 480 ML BOTTLE TP PRN (11:00)
[2016-11-04] MEDS ORDERED: diphenhydrAMINE HCL ELIX 25 MG/10 ML UDC GT PRN (11:00)
[2016-11-04] MEDS: CHOLESTYRAMINE/ASPARTAME 4 G/PKT PACKET GT SCH (12:43)
--- NOTE | 2016-11-04 15:35 | NUR ---
INTERDISCIPLINARY PLAN OF CARE CONFERENCE was held today. Resident's dtr Dyana attended via telephone conference. Dr. Monet and the Interdisciplinary Team reviewed the current plan of care in detail. Resident will have a CHEM7 done Monday11/07/2016 per the request of pharmacy. Resident's dtr requested for staff members to be more careful repositioning the patient to avoid skin problems. No new orders were given.
[2016-11-04 21:00] VITALS: BP 116/63
[2016-11-04] MEDS: VALSARTAN 80 MG TABLET GT SCH (22:00)
[2016-11-04] MEDS: GLYTROL 1,000 ML BAG GT PRN (23:25)
[2016-11-05] MEDS: ALBUTEROL FS 2.5 MG/3 ML VIAL.NEB NEB SCH ×4 (02:15→19:32)
[2016-11-05] MEDS: IPRATROPIUM NEB FS 0.5 MG/2.5 ML AMPUL.NEB IH SCH ×4 (02:15→19:32)
[2016-11-05] MEDS: PANTOPRAZOLE 40 MG/PACK PACK GT SCH (05:50)
[2016-11-05] MEDS: LEVOTHYROXINE SODIUM 88 MCG TABLET GT SCH (05:50)
[2016-11-05 06:10] VITALS: BP 112/62
[2016-11-05 08:12] VITALS: BP 101/68
[2016-11-05] MEDS: LABETALOL HCL (100MG) 100 MG TABLET GT SCH ×2 (09:00→21:38)
[2016-11-05] MEDS: MVI/MINERALS LIQUID (CEROVITE) GT SCH (09:57)
[2016-11-05] MEDS: LACTOBACILLUS RHAMNOSUS GG 1 EACH CAP.SPRINK GT SCH (09:57)
[2016-11-05] MEDS: CARBOXYMETHYLCELLULOSE SODIUM 0.4 ML DROPERETTE EACHEYE SCH (09:57)
[2016-11-05] MEDS: PROSOURCE / PROSTAT (PYXIS) 30 ML UDC GT SCH ×2 (09:57→16:42)
[2016-11-05] MEDS: LEVETIRACETAM SOL (5 ML) 100 MG/ML UDC GT SCH ×2 (09:57→21:38)
[2016-11-05] MEDS: OMEGA GT SCH ×3 (09:57→16:42)
[2016-11-05] MEDS: CLOTRIMAZOLE 1% 15 GM TUBE TP SCH ×2 (09:58→21:39)
[2016-11-05] MEDS: HYDROGEL DRESSING 90 GM TUBE TP SCH ×2 (09:58→21:39)
[2016-11-05] MEDS: HYDROGEN PEROXIDE 480 ML BOTTLE TP SCH ×2 (09:58→21:39)
[2016-11-05] MEDS: ASCORBIC ACID 500 MG TABLET GT SCH (09:58)
[2016-11-05] MEDS: COD LIVER OIL/ZINC OXIDE 120 GM TUBE TP SCH ×4 (09:58→21:39)
[2016-11-05] MEDS: CHOLESTYRAMINE/ASPARTAME 4 G/PKT PACKET GT SCH (12:00)
[2016-11-05] MEDS: GLYTROL 1,000 ML BAG GT PRN (17:04)
[2016-11-05] MEDS: BLOOD SUGAR DIAGNOSTIC 1 EACH STRIP IN SCH (18:16)
[2016-11-05] MEDS: INSULIN REGULAR, HUMAN 100 UNIT/ML 3 ML VIAL SQ PRN (18:17)
[2016-11-05 20:10] VITALS: BP 121/62
[2016-11-05] MEDS: VALSARTAN 80 MG TABLET GT SCH (22:00)
[2016-11-06] MEDS: ALBUTEROL FS 2.5 MG/3 ML VIAL.NEB NEB SCH ×4 (01:48→19:44)
[2016-11-06] MEDS: IPRATROPIUM NEB FS 0.5 MG/2.5 ML AMPUL.NEB IH SCH ×4 (01:48→19:44)
[2016-11-06] MEDS: LEVOTHYROXINE SODIUM 88 MCG TABLET GT SCH (05:42)
[2016-11-06] MEDS: BLOOD SUGAR DIAGNOSTIC 1 EACH STRIP IN SCH ×2 (05:42→17:50)
[2016-11-06] MEDS: PANTOPRAZOLE 40 MG/PACK PACK GT SCH (05:42)
[2016-11-06] MEDS: INSULIN REGULAR, HUMAN 100 UNIT/ML 3 ML VIAL SQ PRN ×2 (05:43→17:51)
[2016-11-06 07:47] VITALS: BP 132/73
[2016-11-06] MEDS: MVI/MINERALS LIQUID (CEROVITE) GT SCH (09:00)
[2016-11-06] MEDS: PROSOURCE / PROSTAT (PYXIS) 30 ML UDC GT SCH ×2 (09:00→17:31)
[2016-11-06] MEDS: HYDROGEN PEROXIDE 480 ML BOTTLE TP SCH ×2 (09:00→21:08)
[2016-11-06] MEDS: HYDROGEL DRESSING 90 GM TUBE TP SCH ×2 (09:00→21:07)
[2016-11-06] MEDS: LABETALOL HCL (100MG) 100 MG TABLET GT SCH ×2 (09:00→21:07)
[2016-11-06] MEDS: ASCORBIC ACID 500 MG TABLET GT SCH (09:00)
[2016-11-06] MEDS: LACTOBACILLUS RHAMNOSUS GG 1 EACH CAP.SPRINK GT SCH (09:00)
[2016-11-06] MEDS: LEVETIRACETAM SOL (5 ML) 100 MG/ML UDC GT SCH ×2 (09:00→21:07)
[2016-11-06] MEDS: COD LIVER OIL/ZINC OXIDE 120 GM TUBE TP SCH ×4 (09:00→21:08)
[2016-11-06] MEDS: OMEGA GT SCH ×3 (09:00→17:32)
[2016-11-06] MEDS: CLOTRIMAZOLE 1% 15 GM TUBE TP SCH ×2 (09:00→21:08)
[2016-11-06] MEDS: CARBOXYMETHYLCELLULOSE SODIUM 0.4 ML DROPERETTE EACHEYE SCH (09:00)
[2016-11-06] MEDS: CHOLESTYRAMINE/ASPARTAME 4 G/PKT PACKET GT SCH (12:00)
[2016-11-06] MEDS ORDERED: COD LIVER OIL/ZINC OXIDE 120 GM TUBE TP PRN (14:30)
--- NOTE | 2016-11-06 14:50 | NUR ---
Received clarification of Clotrimazole 1% order from Dr. Calderon noted and carried out.
[2016-11-06 19:57] VITALS: BP 114/63
[2016-11-06] MEDS: ZINC OXIDE 30 GM TUBE TP SCH (21:09)
[2016-11-06] MEDS: VALSARTAN 80 MG TABLET GT SCH (22:00)
[2016-11-07] MEDS: ALBUTEROL FS 2.5 MG/3 ML VIAL.NEB NEB SCH ×4 (01:43→19:56)
[2016-11-07] MEDS: IPRATROPIUM NEB FS 0.5 MG/2.5 ML AMPUL.NEB IH SCH ×4 (01:43→19:56)
[2016-11-07] MEDS: PANTOPRAZOLE 40 MG/PACK PACK GT SCH (05:38)
[2016-11-07] MEDS: LEVOTHYROXINE SODIUM 88 MCG TABLET GT SCH (05:39)
[2016-11-07] MEDS: BLOOD SUGAR DIAGNOSTIC 1 EACH STRIP IN SCH ×2 (05:39→17:41)
[2016-11-07 07:03] LABS: CALCIUM, SERUM 8.7 mg/dL (8.5-10.1); CARBON DIOXIDE 28 mmol/L (21-32); CHLORIDE 100 mmol/L (98-107); CREATININE 0.7 mg/dL (0.6-1.3); GLUCOSE 119 mg/dL (74-106); POTASSIUM 4.4 mmol/L (3.5-5.1); SODIUM SERUM 135 mmol/L (136-145); UREA NITROGEN, BLOOD 22 mg/dL (7-18)
[2016-11-07 08:16] VITALS: BP 116/69
[2016-11-07] MEDS: PROSOURCE / PROSTAT (PYXIS) 30 ML UDC GT SCH ×2 (09:00→17:40)
[2016-11-07] MEDS: LEVETIRACETAM SOL (5 ML) 100 MG/ML UDC GT SCH ×2 (09:00→21:00)
[2016-11-07] MEDS: COD LIVER OIL/ZINC OXIDE 120 GM TUBE TP SCH ×4 (09:00→21:01)
[2016-11-07] MEDS: LACTOBACILLUS RHAMNOSUS GG 1 EACH CAP.SPRINK GT SCH (09:00)
[2016-11-07] MEDS: OMEGA GT SCH ×3 (09:00→17:40)
[2016-11-07] MEDS: ASCORBIC ACID 500 MG TABLET GT SCH (09:00)
[2016-11-07] MEDS: CARBOXYMETHYLCELLULOSE SODIUM 0.4 ML DROPERETTE EACHEYE SCH (09:00)
[2016-11-07] MEDS: HYDROGEL DRESSING 90 GM TUBE TP SCH ×2 (09:00→21:00)
[2016-11-07] MEDS: HYDROGEN PEROXIDE 480 ML BOTTLE TP SCH ×2 (09:00→21:01)
[2016-11-07] MEDS: MVI/MINERALS LIQUID (CEROVITE) GT SCH (09:00)
[2016-11-07] MEDS: ZINC OXIDE 30 GM TUBE TP SCH ×2 (09:00→21:01)
[2016-11-07] MEDS: LABETALOL HCL (100MG) 100 MG TABLET GT SCH ×2 (09:00→21:00)
[2016-11-07] MEDS: CLOTRIMAZOLE 1% 15 GM TUBE TP SCH ×2 (09:00→21:01)
[2016-11-07] MEDS: CHOLESTYRAMINE/ASPARTAME 4 G/PKT PACKET GT SCH (12:00)
[2016-11-07] MEDS: GLYTROL 1,000 ML BAG GT PRN (14:17)
[2016-11-07] MEDS: INSULIN REGULAR, HUMAN 100 UNIT/ML 3 ML VIAL SQ PRN (17:41)
[2016-11-07 19:51] VITALS: BP 114/72
[2016-11-07] MEDS: VALSARTAN 80 MG TABLET GT SCH (22:18)
[2016-11-08] MEDS: ALBUTEROL FS 2.5 MG/3 ML VIAL.NEB NEB SCH ×4 (02:12→20:05)
[2016-11-08] MEDS: IPRATROPIUM NEB FS 0.5 MG/2.5 ML AMPUL.NEB IH SCH ×4 (02:12→20:05)
[2016-11-08] MEDS: BLOOD SUGAR DIAGNOSTIC 1 EACH STRIP IN SCH ×2 (05:20→18:00)
[2016-11-08] MEDS: LEVOTHYROXINE SODIUM 88 MCG TABLET GT SCH (05:20)
[2016-11-08] MEDS: PANTOPRAZOLE 40 MG/PACK PACK GT SCH (05:20)
[2016-11-08] MEDS: GLYTROL 1,000 ML BAG GT PRN (05:42)
[2016-11-08 08:18] VITALS: BP 130/78
[2016-11-08] MEDS: LEVETIRACETAM SOL (5 ML) 100 MG/ML UDC GT SCH ×2 (09:12→20:34)
[2016-11-08] MEDS: OMEGA GT SCH ×3 (09:12→17:52)
[2016-11-08] MEDS: CARBOXYMETHYLCELLULOSE SODIUM 0.4 ML DROPERETTE EACHEYE SCH (09:12)
[2016-11-08] MEDS: MVI/MINERALS LIQUID (CEROVITE) GT SCH (09:12)
[2016-11-08] MEDS: LACTOBACILLUS RHAMNOSUS GG 1 EACH CAP.SPRINK GT SCH (09:12)
[2016-11-08] MEDS: PROSOURCE / PROSTAT (PYXIS) 30 ML UDC GT SCH ×2 (09:12→17:52)
[2016-11-08] MEDS: LABETALOL HCL (100MG) 100 MG TABLET GT SCH ×2 (09:13→20:34)
[2016-11-08] MEDS: HYDROGEL DRESSING 90 GM TUBE TP SCH ×2 (09:14→20:36)
[2016-11-08] MEDS: ASCORBIC ACID 500 MG TABLET GT SCH (09:14)
[2016-11-08] MEDS: COD LIVER OIL/ZINC OXIDE 120 GM TUBE TP SCH ×4 (09:14→20:36)
[2016-11-08] MEDS: ZINC OXIDE 30 GM TUBE TP SCH ×2 (09:14→20:37)
[2016-11-08] MEDS: CLOTRIMAZOLE 1% 15 GM TUBE TP SCH ×2 (09:14→20:37)
[2016-11-08] MEDS: HYDROGEN PEROXIDE 480 ML BOTTLE TP SCH ×2 (09:14→20:36)
[2016-11-08] MEDS: CHOLESTYRAMINE/ASPARTAME 4 G/PKT PACKET GT SCH (12:00)
--- NOTE | 2016-11-08 18:27 | NUR ---
Late entry for 11/07/16 Seen by CUSTOMER AGENT Becca Smith. Relayed BMP result to her. No new order.
[2016-11-08] MEDS: INSULIN REGULAR, HUMAN 100 UNIT/ML 3 ML VIAL SQ PRN (19:21)
[2016-11-08 19:52] VITALS: BP 107/62
[2016-11-08] MEDS: VALSARTAN 80 MG TABLET GT SCH (22:00)
[2016-11-09] MEDS: IPRATROPIUM NEB FS 0.5 MG/2.5 ML AMPUL.NEB IH SCH ×4 (01:26→19:44)
[2016-11-09] MEDS: ALBUTEROL FS 2.5 MG/3 ML VIAL.NEB NEB SCH ×4 (01:26→19:44)
[2016-11-09] MEDS: PANTOPRAZOLE 40 MG/PACK PACK GT SCH (05:35)
[2016-11-09] MEDS: BLOOD SUGAR DIAGNOSTIC 1 EACH STRIP IN SCH ×2 (05:35→18:10)
[2016-11-09] MEDS: LEVOTHYROXINE SODIUM 88 MCG TABLET GT SCH (05:35)
[2016-11-09] MEDS: GLYTROL 1,000 ML BAG GT PRN ×2 (06:38→09:24)
[2016-11-09 07:50] VITALS: BP 124/57
[2016-11-09] MEDS: OMEGA GT SCH ×3 (09:11→16:36)
[2016-11-09] MEDS: PROSOURCE / PROSTAT (PYXIS) 30 ML UDC GT SCH ×2 (09:11→16:36)
[2016-11-09] MEDS: MVI/MINERALS LIQUID (CEROVITE) GT SCH (09:11)
[2016-11-09] MEDS: LEVETIRACETAM SOL (5 ML) 100 MG/ML UDC GT SCH ×2 (09:11→21:13)
[2016-11-09] MEDS: CARBOXYMETHYLCELLULOSE SODIUM 0.4 ML DROPERETTE EACHEYE SCH (09:11)
[2016-11-09] MEDS: LACTOBACILLUS RHAMNOSUS GG 1 EACH CAP.SPRINK GT SCH (09:11)
[2016-11-09] MEDS: CLOTRIMAZOLE 1% 15 GM TUBE TP SCH ×2 (09:12→21:14)
[2016-11-09] MEDS: COD LIVER OIL/ZINC OXIDE 120 GM TUBE TP SCH ×4 (09:12→21:14)
[2016-11-09] MEDS: ZINC OXIDE 30 GM TUBE TP SCH ×2 (09:12→21:14)
[2016-11-09] MEDS: HYDROGEN PEROXIDE 480 ML BOTTLE TP SCH ×2 (09:12→21:14)
[2016-11-09] MEDS: LABETALOL HCL (100MG) 100 MG TABLET GT SCH ×2 (09:12→21:13)
[2016-11-09] MEDS: HYDROGEL DRESSING 90 GM TUBE TP SCH (09:12)
[2016-11-09] MEDS: ASCORBIC ACID 500 MG TABLET GT SCH (09:12)
[2016-11-09] MEDS: CHOLESTYRAMINE/ASPARTAME 4 G/PKT PACKET GT SCH (12:54)
[2016-11-09 20:04] VITALS: BP 110/59
[2016-11-09] MEDS: VALSARTAN 80 MG TABLET GT SCH (22:00)
[2016-11-10] VITALS (8 sets, daily range): BP systolic 100–125; BP diastolic 33–75
[2016-11-10] MEDS: ALBUTEROL FS 2.5 MG/3 ML VIAL.NEB NEB SCH ×4 (02:14→19:27)
[2016-11-10] MEDS: IPRATROPIUM NEB FS 0.5 MG/2.5 ML AMPUL.NEB IH SCH ×4 (02:14→19:26)
[2016-11-10] MEDS: BLOOD SUGAR DIAGNOSTIC 1 EACH STRIP IN SCH ×2 (05:44→18:40)
[2016-11-10] MEDS: INSULIN REGULAR, HUMAN 100 UNIT/ML 3 ML VIAL SQ PRN (05:44)
[2016-11-10] MEDS: GLYTROL 1,000 ML BAG GT PRN (05:44)
[2016-11-10] MEDS: LEVOTHYROXINE SODIUM 88 MCG TABLET GT SCH (05:44)
[2016-11-10] MEDS: PANTOPRAZOLE 40 MG/PACK PACK GT SCH (05:44)
[2016-11-10] MEDS: LABETALOL HCL (100MG) 100 MG TABLET GT SCH ×2 (09:26→21:03)
[2016-11-10] MEDS: ASCORBIC ACID 500 MG TABLET GT SCH (09:26)
[2016-11-10] MEDS: COD LIVER OIL/ZINC OXIDE 120 GM TUBE TP SCH ×4 (09:26→21:03)
[2016-11-10] MEDS: CARBOXYMETHYLCELLULOSE SODIUM 0.4 ML DROPERETTE EACHEYE SCH (09:26)
[2016-11-10] MEDS: OMEGA GT SCH ×3 (09:26→17:00)
[2016-11-10] MEDS: PROSOURCE / PROSTAT (PYXIS) 30 ML UDC GT SCH ×2 (09:26→17:00)
[2016-11-10] MEDS: MVI/MINERALS LIQUID (CEROVITE) GT SCH (09:26)
[2016-11-10] MEDS: LACTOBACILLUS RHAMNOSUS GG 1 EACH CAP.SPRINK GT SCH (09:26)
[2016-11-10] MEDS: HYDROGEN PEROXIDE 480 ML BOTTLE TP SCH ×2 (09:26→21:03)
[2016-11-10] MEDS: ZINC OXIDE 30 GM TUBE TP SCH ×2 (09:26→21:03)
[2016-11-10] MEDS: LEVETIRACETAM SOL (5 ML) 100 MG/ML UDC GT SCH ×2 (09:26→21:02)
[2016-11-10] MEDS: CLOTRIMAZOLE 1% 15 GM TUBE TP SCH ×2 (09:26→21:03)
[2016-11-10] MEDS: CHOLESTYRAMINE/ASPARTAME 4 G/PKT PACKET GT SCH (12:52)
[2016-11-10] MEDS: VALSARTAN 80 MG TABLET GT SCH (22:21)
[2016-11-11] VITALS (9 sets, daily range): BP systolic 101–137; BP diastolic 49–77
[2016-11-11] MEDS: GLYTROL 1,000 ML BAG GT PRN (01:12)
[2016-11-11] MEDS: ALBUTEROL FS 2.5 MG/3 ML VIAL.NEB NEB SCH ×4 (01:49→20:23)
[2016-11-11] MEDS: IPRATROPIUM NEB FS 0.5 MG/2.5 ML AMPUL.NEB IH SCH ×4 (01:49→20:23)
[2016-11-11] MEDS: BLOOD SUGAR DIAGNOSTIC 1 EACH STRIP IN SCH ×2 (05:40→18:01)
[2016-11-11] MEDS: LEVOTHYROXINE SODIUM 88 MCG TABLET GT SCH (05:40)
[2016-11-11] MEDS: PANTOPRAZOLE 40 MG/PACK PACK GT SCH (05:40)
[2016-11-11] MEDS: INSULIN REGULAR, HUMAN 100 UNIT/ML 3 ML VIAL SQ PRN (05:41)
[2016-11-11] MEDS: ASCORBIC ACID 500 MG TABLET GT SCH (09:00)
[2016-11-11] MEDS: COD LIVER OIL/ZINC OXIDE 120 GM TUBE TP SCH ×4 (09:00→21:26)
[2016-11-11] MEDS: PROSOURCE / PROSTAT (PYXIS) 30 ML UDC GT SCH ×2 (09:00→17:10)
[2016-11-11] MEDS: LEVETIRACETAM SOL (5 ML) 100 MG/ML UDC GT SCH ×2 (09:00→21:25)
[2016-11-11] MEDS: CARBOXYMETHYLCELLULOSE SODIUM 0.4 ML DROPERETTE EACHEYE SCH (09:00)
[2016-11-11] MEDS: ZINC OXIDE 30 GM TUBE TP SCH ×2 (09:00→21:26)
[2016-11-11] MEDS: OMEGA GT SCH ×3 (09:00→17:10)
[2016-11-11] MEDS: LABETALOL HCL (100MG) 100 MG TABLET GT SCH ×2 (09:00→21:26)
[2016-11-11] MEDS: CLOTRIMAZOLE 1% 15 GM TUBE TP SCH ×2 (09:00→21:26)
[2016-11-11] MEDS: MVI/MINERALS LIQUID (CEROVITE) GT SCH (09:00)
[2016-11-11] MEDS: LACTOBACILLUS RHAMNOSUS GG 1 EACH CAP.SPRINK GT SCH (09:00)
[2016-11-11] MEDS: HYDROGEN PEROXIDE 480 ML BOTTLE TP SCH ×2 (09:00→21:26)
[2016-11-11] MEDS: CHOLESTYRAMINE/ASPARTAME 4 G/PKT PACKET GT SCH (12:02)
[2016-11-11] MEDS: VALSARTAN 80 MG TABLET GT SCH (22:10)
[2016-11-12] VITALS (8 sets, daily range): BP systolic 95–139; BP diastolic 47–65
[2016-11-12] MEDS: ALBUTEROL FS 2.5 MG/3 ML VIAL.NEB NEB SCH ×4 (01:00→19:11)
[2016-11-12] MEDS: IPRATROPIUM NEB FS 0.5 MG/2.5 ML AMPUL.NEB IH SCH ×4 (01:00→19:11)
[2016-11-12] MEDS: INSULIN REGULAR, HUMAN 100 UNIT/ML 3 ML VIAL SQ PRN (05:33)
[2016-11-12] MEDS: BLOOD SUGAR DIAGNOSTIC 1 EACH STRIP IN SCH ×2 (05:33→17:16)
[2016-11-12] MEDS: PANTOPRAZOLE 40 MG/PACK PACK GT SCH (05:33)
[2016-11-12] MEDS: LEVOTHYROXINE SODIUM 88 MCG TABLET GT SCH (05:33)
[2016-11-12] MEDS: HYDROGEN PEROXIDE 480 ML BOTTLE TP SCH ×2 (08:32→20:38)
[2016-11-12] MEDS: CARBOXYMETHYLCELLULOSE SODIUM 0.4 ML DROPERETTE EACHEYE SCH (08:32)
[2016-11-12] MEDS: ASCORBIC ACID 500 MG TABLET GT SCH (08:32)
[2016-11-12] MEDS: LACTOBACILLUS RHAMNOSUS GG 1 EACH CAP.SPRINK GT SCH (08:32)
[2016-11-12] MEDS: OMEGA GT SCH ×3 (08:32→16:21)
[2016-11-12] MEDS: LEVETIRACETAM SOL (5 ML) 100 MG/ML UDC GT SCH ×2 (08:32→20:38)
[2016-11-12] MEDS: LABETALOL HCL (100MG) 100 MG TABLET GT SCH ×2 (08:32→20:38)
[2016-11-12] MEDS: COD LIVER OIL/ZINC OXIDE 120 GM TUBE TP SCH ×4 (08:32→20:38)
[2016-11-12] MEDS: PROSOURCE / PROSTAT (PYXIS) 30 ML UDC GT SCH ×2 (08:32→16:21)
[2016-11-12] MEDS: MVI/MINERALS LIQUID (CEROVITE) GT SCH (08:32)
[2016-11-12] MEDS: ZINC OXIDE 30 GM TUBE TP SCH ×2 (08:33→20:38)
[2016-11-12] MEDS: CLOTRIMAZOLE 1% 15 GM TUBE TP SCH ×2 (08:33→20:38)
[2016-11-12] MEDS: CHOLESTYRAMINE/ASPARTAME 4 G/PKT PACKET GT SCH (12:47)
[2016-11-12] MEDS: GLYTROL 1,000 ML BAG GT PRN (16:44)
[2016-11-12] MEDS: VALSARTAN 80 MG TABLET GT SCH (22:00)
[2016-11-13] VITALS (7 sets, daily range): BP systolic 101–130; BP diastolic 52–73
[2016-11-13] MEDS: IPRATROPIUM NEB FS 0.5 MG/2.5 ML AMPUL.NEB IH SCH ×4 (01:25→19:36)
[2016-11-13] MEDS: ALBUTEROL FS 2.5 MG/3 ML VIAL.NEB NEB SCH ×4 (01:25→19:36)
[2016-11-13] MEDS: BLOOD SUGAR DIAGNOSTIC 1 EACH STRIP IN SCH ×2 (05:34→17:59)
[2016-11-13] MEDS: INSULIN REGULAR, HUMAN 100 UNIT/ML 3 ML VIAL SQ PRN (05:34)
[2016-11-13] MEDS: PANTOPRAZOLE 40 MG/PACK PACK GT SCH (05:34)
[2016-11-13] MEDS: LEVOTHYROXINE SODIUM 88 MCG TABLET GT SCH (05:34)
[2016-11-13] MEDS: LABETALOL HCL (100MG) 100 MG TABLET GT SCH ×2 (09:00→20:21)
[2016-11-13] MEDS: CARBOXYMETHYLCELLULOSE SODIUM 0.4 ML DROPERETTE EACHEYE SCH (09:43)
[2016-11-13] MEDS: OMEGA GT SCH ×3 (09:43→16:29)
[2016-11-13] MEDS: HYDROGEN PEROXIDE 480 ML BOTTLE TP SCH ×2 (09:43→20:21)
[2016-11-13] MEDS: CLOTRIMAZOLE 1% 15 GM TUBE TP SCH ×2 (09:43→20:21)
[2016-11-13] MEDS: COD LIVER OIL/ZINC OXIDE 120 GM TUBE TP SCH ×4 (09:43→20:21)
[2016-11-13] MEDS: MVI/MINERALS LIQUID (CEROVITE) GT SCH (09:43)
[2016-11-13] MEDS: ASCORBIC ACID 500 MG TABLET GT SCH (09:43)
[2016-11-13] MEDS: LEVETIRACETAM SOL (5 ML) 100 MG/ML UDC GT SCH ×2 (09:43→20:20)
[2016-11-13] MEDS: LACTOBACILLUS RHAMNOSUS GG 1 EACH CAP.SPRINK GT SCH (09:43)
[2016-11-13] MEDS: PROSOURCE / PROSTAT (PYXIS) 30 ML UDC GT SCH ×2 (09:43→16:29)
[2016-11-13] MEDS: ZINC OXIDE 30 GM TUBE TP SCH ×2 (09:43→20:21)
[2016-11-13] MEDS: CHOLESTYRAMINE/ASPARTAME 4 G/PKT PACKET GT SCH (12:00)
[2016-11-13] MEDS: HYDROGEL DRESSING 90 GM TUBE TP SCH (20:21)
[2016-11-13] MEDS: VALSARTAN 80 MG TABLET GT SCH (22:45)
[2016-11-14] VITALS (7 sets, daily range): BP systolic 106–128; BP diastolic 58–89
[2016-11-14] MEDS: IPRATROPIUM NEB FS 0.5 MG/2.5 ML AMPUL.NEB IH SCH ×4 (01:11→20:01)
[2016-11-14] MEDS: ALBUTEROL FS 2.5 MG/3 ML VIAL.NEB NEB SCH ×4 (01:11→20:02)
[2016-11-14] MEDS: INSULIN REGULAR, HUMAN 100 UNIT/ML 3 ML VIAL SQ PRN ×2 (05:37→18:58)
[2016-11-14] MEDS: PANTOPRAZOLE 40 MG/PACK PACK GT SCH (05:37)
[2016-11-14] MEDS: BLOOD SUGAR DIAGNOSTIC 1 EACH STRIP IN SCH ×2 (05:37→18:57)
[2016-11-14] MEDS: LEVOTHYROXINE SODIUM 88 MCG TABLET GT SCH (05:37)
[2016-11-14] MEDS: LEVETIRACETAM SOL (5 ML) 100 MG/ML UDC GT SCH ×2 (09:16→21:04)
[2016-11-14] MEDS: CARBOXYMETHYLCELLULOSE SODIUM 0.4 ML DROPERETTE EACHEYE SCH (09:16)
[2016-11-14] MEDS: PROSOURCE / PROSTAT (PYXIS) 30 ML UDC GT SCH ×2 (09:16→17:00)
[2016-11-14] MEDS: MVI/MINERALS LIQUID (CEROVITE) GT SCH (09:16)
[2016-11-14] MEDS: OMEGA GT SCH ×3 (09:16→17:00)
[2016-11-14] MEDS: LACTOBACILLUS RHAMNOSUS GG 1 EACH CAP.SPRINK GT SCH (09:16)
[2016-11-14] MEDS: LABETALOL HCL (100MG) 100 MG TABLET GT SCH ×2 (09:17→21:00)
[2016-11-14] MEDS: HYDROGEL DRESSING 90 GM TUBE TP SCH ×2 (09:17→21:05)
[2016-11-14] MEDS: ASCORBIC ACID 500 MG TABLET GT SCH (09:17)
[2016-11-14] MEDS: COD LIVER OIL/ZINC OXIDE 120 GM TUBE TP SCH ×4 (09:18→21:05)
[2016-11-14] MEDS: CLOTRIMAZOLE 1% 15 GM TUBE TP SCH ×2 (09:20→21:05)
[2016-11-14] MEDS: HYDROGEN PEROXIDE 480 ML BOTTLE TP SCH ×2 (09:20→21:05)
[2016-11-14] MEDS: ZINC OXIDE 30 GM TUBE TP SCH ×2 (09:21→21:05)
[2016-11-14] MEDS: CHOLESTYRAMINE/ASPARTAME 4 G/PKT PACKET GT SCH (12:30)
[2016-11-14] MEDS: VALSARTAN 80 MG TABLET GT SCH (22:00)
[2016-11-15] VITALS (7 sets, daily range): BP systolic 106–136; BP diastolic 59–80
[2016-11-15] MEDS: ALBUTEROL FS 2.5 MG/3 ML VIAL.NEB NEB SCH ×4 (01:50→19:38)
[2016-11-15] MEDS: IPRATROPIUM NEB FS 0.5 MG/2.5 ML AMPUL.NEB IH SCH ×4 (01:50→19:38)
[2016-11-15] MEDS: PANTOPRAZOLE 40 MG/PACK PACK GT SCH (05:49)
[2016-11-15] MEDS: LEVOTHYROXINE SODIUM 88 MCG TABLET GT SCH (05:49)
[2016-11-15] MEDS: BLOOD SUGAR DIAGNOSTIC 1 EACH STRIP IN SCH ×2 (05:49→17:52)
[2016-11-15] MEDS: MVI/MINERALS LIQUID (CEROVITE) GT SCH (08:57)
[2016-11-15] MEDS: OMEGA GT SCH ×3 (08:57→17:43)
[2016-11-15] MEDS: PROSOURCE / PROSTAT (PYXIS) 30 ML UDC GT SCH ×2 (08:57→17:43)
[2016-11-15] MEDS: LACTOBACILLUS RHAMNOSUS GG 1 EACH CAP.SPRINK GT SCH (08:57)
[2016-11-15] MEDS: LEVETIRACETAM SOL (5 ML) 100 MG/ML UDC GT SCH ×2 (08:57→20:29)
[2016-11-15] MEDS: CARBOXYMETHYLCELLULOSE SODIUM 0.4 ML DROPERETTE EACHEYE SCH (08:57)
[2016-11-15] MEDS: LABETALOL HCL (100MG) 100 MG TABLET GT SCH ×2 (08:58→20:29)
[2016-11-15] MEDS: ASCORBIC ACID 500 MG TABLET GT SCH (08:58)
[2016-11-15] MEDS: CLOTRIMAZOLE 1% 15 GM TUBE TP SCH ×2 (09:00→20:30)
[2016-11-15] MEDS: COD LIVER OIL/ZINC OXIDE 120 GM TUBE TP SCH ×4 (09:00→20:30)
[2016-11-15] MEDS: HYDROGEL DRESSING 90 GM TUBE TP SCH ×2 (09:00→20:29)
[2016-11-15] MEDS: HYDROGEN PEROXIDE 480 ML BOTTLE TP SCH ×2 (09:00→20:30)
[2016-11-15] MEDS: ZINC OXIDE 30 GM TUBE TP SCH ×2 (09:00→20:30)
[2016-11-15] MEDS: CHOLESTYRAMINE/ASPARTAME 4 G/PKT PACKET GT SCH (12:12)
[2016-11-15] MEDS: INSULIN REGULAR, HUMAN 100 UNIT/ML 3 ML VIAL SQ PRN (17:53)
[2016-11-15] MEDS: VALSARTAN 80 MG TABLET GT SCH (22:10)
[2016-11-16] VITALS (7 sets, daily range): BP systolic 108–128; BP diastolic 66–79
[2016-11-16] MEDS: IPRATROPIUM NEB FS 0.5 MG/2.5 ML AMPUL.NEB IH SCH ×4 (01:22→19:59)
[2016-11-16] MEDS: ALBUTEROL FS 2.5 MG/3 ML VIAL.NEB NEB SCH ×4 (01:22→19:59)
[2016-11-16] MEDS: GLYTROL 1,000 ML BAG GT PRN (03:51)
[2016-11-16] MEDS: OMEGA GT SCH ×3 (09:00→17:11)
[2016-11-16] MEDS: LACTOBACILLUS RHAMNOSUS GG 1 EACH CAP.SPRINK GT SCH (09:00)
[2016-11-16] MEDS: MVI/MINERALS LIQUID (CEROVITE) GT SCH (09:00)
[2016-11-16] MEDS: ASCORBIC ACID 500 MG TABLET GT SCH (09:00)
[2016-11-16] MEDS: HYDROGEN PEROXIDE 480 ML BOTTLE TP SCH ×2 (09:00→20:45)
[2016-11-16] MEDS: HYDROGEL DRESSING 90 GM TUBE TP SCH ×2 (09:00→20:44)
[2016-11-16] MEDS: LEVETIRACETAM SOL (5 ML) 100 MG/ML UDC GT SCH ×2 (09:00→20:44)
[2016-11-16] MEDS: PROSOURCE / PROSTAT (PYXIS) 30 ML UDC GT SCH ×2 (09:00→17:11)
[2016-11-16] MEDS: CLOTRIMAZOLE 1% 15 GM TUBE TP SCH ×2 (09:00→20:45)
[2016-11-16] MEDS: ZINC OXIDE 30 GM TUBE TP SCH ×2 (09:00→20:45)
[2016-11-16] MEDS: LABETALOL HCL (100MG) 100 MG TABLET GT SCH ×2 (09:00→20:44)
[2016-11-16] MEDS: CARBOXYMETHYLCELLULOSE SODIUM 0.4 ML DROPERETTE EACHEYE SCH (09:00)
[2016-11-16] MEDS: COD LIVER OIL/ZINC OXIDE 120 GM TUBE TP SCH ×4 (09:00→20:45)
[2016-11-16] MEDS: CHOLESTYRAMINE/ASPARTAME 4 G/PKT PACKET GT SCH (12:33)
[2016-11-16] MEDS: BLOOD SUGAR DIAGNOSTIC 1 EACH STRIP IN SCH (17:53)
[2016-11-16] MEDS: VALSARTAN 80 MG TABLET GT SCH (22:12)
[2016-11-17] VITALS (7 sets, daily range): BP systolic 106–123; BP diastolic 59–75
[2016-11-17] MEDS: IPRATROPIUM NEB FS 0.5 MG/2.5 ML AMPUL.NEB IH SCH ×4 (01:39→20:14)
[2016-11-17] MEDS: ALBUTEROL FS 2.5 MG/3 ML VIAL.NEB NEB SCH ×4 (01:39→20:14)
[2016-11-17] MEDS: GLYTROL 1,000 ML BAG GT PRN ×2 (03:36→23:49)
[2016-11-17] MEDS: BLOOD SUGAR DIAGNOSTIC 1 EACH STRIP IN SCH ×2 (05:36→16:54)
[2016-11-17] MEDS: PANTOPRAZOLE 40 MG/PACK PACK GT SCH (05:36)
[2016-11-17] MEDS: LEVOTHYROXINE SODIUM 88 MCG TABLET GT SCH (05:36)
[2016-11-17] MEDS: INSULIN REGULAR, HUMAN 100 UNIT/ML 3 ML VIAL SQ PRN (05:37)
--- NOTE | 2016-11-17 06:11 | NUR ---
Noted with both hands slightly swollen and there some rashes seen on the palms.Per FUNDS DEVELOPMENT DIRECTOR and CARTON INSPECTOR pt was sweaty earlier @ hands.Elevated hands with pillow.No pain noted.Will continue to monitor and will endorsed.
[2016-11-17] MEDS: CARBOXYMETHYLCELLULOSE SODIUM 0.4 ML DROPERETTE EACHEYE SCH (09:35)
[2016-11-17] MEDS: PROSOURCE / PROSTAT (PYXIS) 30 ML UDC GT SCH ×2 (09:36→16:48)
[2016-11-17] MEDS: OMEGA GT SCH ×3 (09:36→16:48)
[2016-11-17] MEDS: HYDROGEL DRESSING 90 GM TUBE TP SCH ×2 (09:37→21:33)
[2016-11-17] MEDS: COD LIVER OIL/ZINC OXIDE 120 GM TUBE TP SCH ×4 (09:37→21:33)
[2016-11-17] MEDS: CLOTRIMAZOLE 1% 15 GM TUBE TP SCH ×2 (09:38→21:33)
[2016-11-17] MEDS: HYDROGEN PEROXIDE 480 ML BOTTLE TP SCH ×2 (09:38→21:33)
[2016-11-17] MEDS: ZINC OXIDE 30 GM TUBE TP SCH ×2 (09:38→21:34)
[2016-11-17] MEDS: LEVETIRACETAM SOL (5 ML) 100 MG/ML UDC GT SCH ×2 (09:42→21:33)
[2016-11-17] MEDS: LABETALOL HCL (100MG) 100 MG TABLET GT SCH ×2 (09:42→21:33)
[2016-11-17] MEDS: LACTOBACILLUS RHAMNOSUS GG 1 EACH CAP.SPRINK GT SCH (09:42)
[2016-11-17] MEDS: MVI/MINERALS LIQUID (CEROVITE) GT SCH (09:43)
[2016-11-17] MEDS: ASCORBIC ACID 500 MG TABLET GT SCH (09:43)
[2016-11-17] MEDS: CHOLESTYRAMINE/ASPARTAME 4 G/PKT PACKET GT SCH (12:12)
[2016-11-17] MEDS: VALSARTAN 80 MG TABLET GT SCH (21:34)
[2016-11-18] VITALS (7 sets, daily range): BP systolic 106–126; BP diastolic 56–72
[2016-11-18] MEDS: IPRATROPIUM NEB FS 0.5 MG/2.5 ML AMPUL.NEB IH SCH ×4 (00:46→19:18)
[2016-11-18] MEDS: ALBUTEROL FS 2.5 MG/3 ML VIAL.NEB NEB SCH ×4 (00:46→19:18)
[2016-11-18] MEDS: BLOOD SUGAR DIAGNOSTIC 1 EACH STRIP IN SCH ×2 (05:21→18:06)
[2016-11-18] MEDS: PANTOPRAZOLE 40 MG/PACK PACK GT SCH (05:21)
[2016-11-18] MEDS: LEVOTHYROXINE SODIUM 88 MCG TABLET GT SCH (05:21)
[2016-11-18] MEDS: INSULIN REGULAR, HUMAN 100 UNIT/ML 3 ML VIAL SQ PRN ×2 (05:22→18:06)
[2016-11-18] MEDS: CARBOXYMETHYLCELLULOSE SODIUM 0.4 ML DROPERETTE EACHEYE SCH (08:41)
[2016-11-18] MEDS: LACTOBACILLUS RHAMNOSUS GG 1 EACH CAP.SPRINK GT SCH (08:42)
[2016-11-18] MEDS: OMEGA GT SCH ×3 (08:42→17:20)
[2016-11-18] MEDS: LEVETIRACETAM SOL (5 ML) 100 MG/ML UDC GT SCH ×2 (08:42→21:20)
[2016-11-18] MEDS: MVI/MINERALS LIQUID (CEROVITE) GT SCH (08:42)
[2016-11-18] MEDS: PROSOURCE / PROSTAT (PYXIS) 30 ML UDC GT SCH ×2 (08:43→17:20)
[2016-11-18] MEDS: ASCORBIC ACID 500 MG TABLET GT SCH (08:43)
[2016-11-18] MEDS: LABETALOL HCL (100MG) 100 MG TABLET GT SCH ×2 (08:43→21:00)
[2016-11-18] MEDS: hydrALAZINE HCL 10 MG TABLET GT PRN ×3 (08:44→17:30)
[2016-11-18] MEDS: COD LIVER OIL/ZINC OXIDE 120 GM TUBE TP SCH ×4 (09:00→21:21)
[2016-11-18] MEDS: CLOTRIMAZOLE 1% 15 GM TUBE TP SCH ×2 (09:00→21:21)
[2016-11-18] MEDS: HYDROGEN PEROXIDE 480 ML BOTTLE TP SCH ×2 (09:00→21:21)
[2016-11-18] MEDS: HYDROGEL DRESSING 90 GM TUBE TP SCH ×2 (09:00→21:21)
[2016-11-18] MEDS: ZINC OXIDE 30 GM TUBE TP SCH ×2 (09:00→21:21)
[2016-11-18] MEDS: CHOLESTYRAMINE/ASPARTAME 4 G/PKT PACKET GT SCH (12:00)
--- NOTE | 2016-11-18 20:16 | NUR ---
Notified regarding both hands are swollen,he said that it's from dependency and will elevated for now and will continue to monitor for any changes.
[2016-11-18] MEDS: GLYTROL 1,000 ML BAG GT PRN (21:22)
[2016-11-18] MEDS: VALSARTAN 80 MG TABLET GT SCH (21:22)
[2016-11-19] VITALS (7 sets, daily range): BP systolic 101–122; BP diastolic 50–73
[2016-11-19] MEDS: IPRATROPIUM NEB FS 0.5 MG/2.5 ML AMPUL.NEB IH SCH ×4 (01:08→19:31)
[2016-11-19] MEDS: ALBUTEROL FS 2.5 MG/3 ML VIAL.NEB NEB SCH ×4 (01:08→19:31)
[2016-11-19] MEDS: LEVOTHYROXINE SODIUM 88 MCG TABLET GT SCH (05:39)
[2016-11-19] MEDS: BLOOD SUGAR DIAGNOSTIC 1 EACH STRIP IN SCH ×2 (05:39→17:40)
[2016-11-19] MEDS: PANTOPRAZOLE 40 MG/PACK PACK GT SCH (05:39)
[2016-11-19] MEDS: INSULIN REGULAR, HUMAN 100 UNIT/ML 3 ML VIAL SQ PRN ×2 (05:40→17:40)
[2016-11-19] MEDS: ASCORBIC ACID 500 MG TABLET GT SCH (08:46)
[2016-11-19] MEDS: LACTOBACILLUS RHAMNOSUS GG 1 EACH CAP.SPRINK GT SCH (08:46)
[2016-11-19] MEDS: OMEGA GT SCH ×3 (08:46→16:24)
[2016-11-19] MEDS: LEVETIRACETAM SOL (5 ML) 100 MG/ML UDC GT SCH ×2 (08:46→20:19)
[2016-11-19] MEDS: LABETALOL HCL (100MG) 100 MG TABLET GT SCH ×2 (08:46→20:20)
[2016-11-19] MEDS: HYDROGEL DRESSING 90 GM TUBE TP SCH ×2 (08:46→20:20)
[2016-11-19] MEDS: COD LIVER OIL/ZINC OXIDE 120 GM TUBE TP SCH ×4 (08:46→20:20)
[2016-11-19] MEDS: MVI/MINERALS LIQUID (CEROVITE) GT SCH (08:46)
[2016-11-19] MEDS: PROSOURCE / PROSTAT (PYXIS) 30 ML UDC GT SCH ×2 (08:46→16:24)
[2016-11-19] MEDS: hydrALAZINE HCL 10 MG TABLET GT PRN ×3 (08:47→16:32)
[2016-11-19] MEDS: ZINC OXIDE 30 GM TUBE TP SCH ×2 (08:47→20:20)
[2016-11-19] MEDS: HYDROGEN PEROXIDE 480 ML BOTTLE TP SCH ×2 (08:47→20:20)
[2016-11-19] MEDS: CLOTRIMAZOLE 1% 15 GM TUBE TP SCH ×2 (08:47→20:20)
[2016-11-19] MEDS: CARBOXYMETHYLCELLULOSE SODIUM 0.4 ML DROPERETTE EACHEYE SCH (08:50)
[2016-11-19] MEDS: CHOLESTYRAMINE/ASPARTAME 4 G/PKT PACKET GT SCH (12:39)
--- NOTE | 2016-11-19 12:51 | NUR ---
BOTH FEET WITH RASHES, MORE APPEARING ON THE DORSAL AREA OF THE FOOT. RASHES APPEARS SCATTERED BUT NO RED BUMPS ON THE SKIN, NO FLUID BLISTER, NO PUS. NOTIFIED DR. BHUPENDRA GONZALEZ MD IS AWARE WITH NO NEW ORDERS AT THIS TIME. RASHES STILL PRESENT IN BOTH HANDS, CONT. ELEVATE BOTH HANDS WITH PILLOWS FOR SWELLING. WILL ENDORSE TO PATTERNMAKER ALL AROUND RN FOR CONTINUITY OF CARE. Addendum: 11/19/16 at 1404 by CHALO RUSS RN CLARIFICATION OF ABOVE NOTES: RASHES SCATTERED WITH RED MULTIPLE TINY BUMPS ON THE SKIN.
[2016-11-19] MEDS: GLYTROL 1,000 ML BAG GT PRN (16:24)
[2016-11-19] MEDS: VALSARTAN 80 MG TABLET GT SCH (21:02)
[2016-11-20] VITALS (7 sets, daily range): BP systolic 118–129; BP diastolic 59–87
[2016-11-20] MEDS: IPRATROPIUM NEB FS 0.5 MG/2.5 ML AMPUL.NEB IH SCH ×4 (01:52→20:08)
[2016-11-20] MEDS: ALBUTEROL FS 2.5 MG/3 ML VIAL.NEB NEB SCH ×4 (01:52→20:08)
[2016-11-20] MEDS: INSULIN REGULAR, HUMAN 100 UNIT/ML 3 ML VIAL SQ PRN ×2 (05:12→19:00)
[2016-11-20] MEDS: BLOOD SUGAR DIAGNOSTIC 1 EACH STRIP IN SCH ×2 (05:12→18:00)
[2016-11-20] MEDS: LEVOTHYROXINE SODIUM 88 MCG TABLET GT SCH (05:12)
[2016-11-20] MEDS: PANTOPRAZOLE 40 MG/PACK PACK GT SCH (05:12)
[2016-11-20] MEDS: MVI/MINERALS LIQUID (CEROVITE) GT SCH (09:00)
[2016-11-20] MEDS: HYDROGEN PEROXIDE 480 ML BOTTLE TP SCH ×2 (09:00→20:54)
[2016-11-20] MEDS: PROSOURCE / PROSTAT (PYXIS) 30 ML UDC GT SCH ×2 (09:00→16:49)
[2016-11-20] MEDS: CLOTRIMAZOLE 1% 15 GM TUBE TP SCH ×2 (09:00→20:54)
[2016-11-20] MEDS: COD LIVER OIL/ZINC OXIDE 120 GM TUBE TP SCH ×4 (09:00→20:54)
[2016-11-20] MEDS: CARBOXYMETHYLCELLULOSE SODIUM 0.4 ML DROPERETTE EACHEYE SCH (09:00)
[2016-11-20] MEDS: OMEGA GT SCH ×3 (09:00→16:49)
[2016-11-20] MEDS: LEVETIRACETAM SOL (5 ML) 100 MG/ML UDC GT SCH ×2 (09:00→20:54)
[2016-11-20] MEDS: HYDROGEL DRESSING 90 GM TUBE TP SCH ×2 (09:00→20:54)
[2016-11-20] MEDS: LACTOBACILLUS RHAMNOSUS GG 1 EACH CAP.SPRINK GT SCH (09:00)
[2016-11-20] MEDS: ASCORBIC ACID 500 MG TABLET GT SCH (09:00)
[2016-11-20] MEDS: LABETALOL HCL (100MG) 100 MG TABLET GT SCH ×2 (09:00→20:54)
[2016-11-20] MEDS: ZINC OXIDE 30 GM TUBE TP SCH ×2 (09:00→20:55)
[2016-11-20] MEDS: CHOLESTYRAMINE/ASPARTAME 4 G/PKT PACKET GT SCH (12:00)
[2016-11-20] MEDS: VALSARTAN 80 MG TABLET GT SCH (22:00)
[2016-11-21] VITALS (7 sets, daily range): BP systolic 105–151; BP diastolic 64–71
[2016-11-21] MEDS: ALBUTEROL FS 2.5 MG/3 ML VIAL.NEB NEB SCH ×4 (01:56→20:15)
[2016-11-21] MEDS: IPRATROPIUM NEB FS 0.5 MG/2.5 ML AMPUL.NEB IH SCH ×4 (01:56→20:15)
[2016-11-21] MEDS: GLYTROL 1,000 ML BAG GT PRN (04:37)
[2016-11-21] MEDS: BLOOD SUGAR DIAGNOSTIC 1 EACH STRIP IN SCH ×2 (05:56→17:18)
[2016-11-21] MEDS: PANTOPRAZOLE 40 MG/PACK PACK GT SCH (05:56)
[2016-11-21] MEDS: LEVOTHYROXINE SODIUM 88 MCG TABLET GT SCH (05:56)
[2016-11-21] MEDS: INSULIN REGULAR, HUMAN 100 UNIT/ML 3 ML VIAL SQ PRN (05:57)
[2016-11-21] MEDS: LACTOBACILLUS RHAMNOSUS GG 1 EACH CAP.SPRINK GT SCH (08:11)
[2016-11-21] MEDS: OMEGA GT SCH ×3 (08:11→17:18)
[2016-11-21] MEDS: PROSOURCE / PROSTAT (PYXIS) 30 ML UDC GT SCH ×2 (08:11→17:18)
[2016-11-21] MEDS: LEVETIRACETAM SOL (5 ML) 100 MG/ML UDC GT SCH ×2 (08:11→21:07)
[2016-11-21] MEDS: CARBOXYMETHYLCELLULOSE SODIUM 0.4 ML DROPERETTE EACHEYE SCH (08:11)
[2016-11-21] MEDS: MVI/MINERALS LIQUID (CEROVITE) GT SCH (08:11)
[2016-11-21] MEDS: ASCORBIC ACID 500 MG TABLET GT SCH (08:12)
[2016-11-21] MEDS: LABETALOL HCL (100MG) 100 MG TABLET GT SCH ×2 (08:12→21:07)
[2016-11-21] MEDS: CLOTRIMAZOLE 1% 15 GM TUBE TP SCH ×3 (09:00→21:08)
[2016-11-21] MEDS: COD LIVER OIL/ZINC OXIDE 120 GM TUBE TP SCH ×4 (09:00→21:08)
[2016-11-21] MEDS: HYDROGEL DRESSING 90 GM TUBE TP SCH ×2 (09:00→21:08)
[2016-11-21] MEDS: ZINC OXIDE 30 GM TUBE TP SCH ×2 (09:00→21:08)
[2016-11-21] MEDS: HYDROGEN PEROXIDE 480 ML BOTTLE TP SCH ×2 (12:30→21:08)
[2016-11-21] MEDS: CHOLESTYRAMINE/ASPARTAME 4 G/PKT PACKET GT SCH (12:36)
--- NOTE | 2016-11-21 17:29 | NUR ---
Seen by Dr. Ramirez. He examined pt's rashes on the bilateral hands and bilateral feet. Received order to apply Clotrimazole cream q shift for 14 days and to give Benadryl 25 mg GT q 8 hours PRN for itching. Addendum: 11/21/16 at 1734 by PER MARTEL RN Pt's bilateral hands are swollen. Dr. Ramirez examined them. Addendum: 11/21/16 at 1830 by PER MARTEL RN Dr. Ramirez said the rashes on the hands and feet look more like fungal than an allergic reaction to something.
--- NOTE | 2016-11-21 18:28 | NUR ---
Noted with rash on the right upper arm inner aspect. Received order to apply hydrocortisone cream 1 % q shift for 14 days.
[2016-11-21] MEDS ORDERED: diphenhydrAMINE HCL ELIX 25 MG/10 ML UDC GT PRN (19:30)
[2016-11-21] MEDS: HYDROCORTISONE 1% CREAM 28.35 GM TUBE TP SCH (21:08)
[2016-11-21] MEDS: CLOTRIMAZOLE 1% CREAM 24 GM TUBE TP SCH (21:08)
[2016-11-21] MEDS: VALSARTAN 80 MG TABLET GT SCH (21:09)
[2016-11-22] VITALS (8 sets, daily range): BP systolic 121–142; BP diastolic 70–79
[2016-11-22] MEDS: IPRATROPIUM NEB FS 0.5 MG/2.5 ML AMPUL.NEB IH SCH ×4 (01:38→19:20)
[2016-11-22] MEDS: ALBUTEROL FS 2.5 MG/3 ML VIAL.NEB NEB SCH ×4 (01:38→19:20)
[2016-11-22] MEDS: LEVOTHYROXINE SODIUM 88 MCG TABLET GT SCH (05:46)
[2016-11-22] MEDS: PANTOPRAZOLE 40 MG/PACK PACK GT SCH (05:46)
[2016-11-22] MEDS: GLYTROL 1,000 ML BAG GT PRN (05:47)
[2016-11-22] MEDS: BLOOD SUGAR DIAGNOSTIC 1 EACH STRIP IN SCH ×2 (06:09→17:59)
[2016-11-22] MEDS: PROSOURCE / PROSTAT (PYXIS) 30 ML UDC GT SCH ×2 (09:37→17:59)
[2016-11-22] MEDS: CARBOXYMETHYLCELLULOSE SODIUM 0.4 ML DROPERETTE EACHEYE SCH (09:37)
[2016-11-22] MEDS: LEVETIRACETAM SOL (5 ML) 100 MG/ML UDC GT SCH ×2 (09:37→21:02)
[2016-11-22] MEDS: LACTOBACILLUS RHAMNOSUS GG 1 EACH CAP.SPRINK GT SCH (09:37)
[2016-11-22] MEDS: OMEGA GT SCH ×3 (09:37→17:59)
[2016-11-22] MEDS: MVI/MINERALS LIQUID (CEROVITE) GT SCH (09:37)
[2016-11-22] MEDS: LABETALOL HCL (100MG) 100 MG TABLET GT SCH ×2 (09:38→21:03)
[2016-11-22] MEDS: ASCORBIC ACID 500 MG TABLET GT SCH (09:38)
--- NOTE | 2016-11-22 10:04 | NUR ---
Seen and examined by Dr. Monet. Received order to do right hand x-ray due to swelling.
--- NOTE | 2016-11-22 10:07 | NUR ---
Requested social sciences research scientist Anne-Marie to e-mail pt's daughter Reyna to notify her of new orders from yesterday and today. Reyna is out of [place] and can only be reached via e-mail until 11/27/16.
--- NOTE | 2016-11-22 10:10 | NUR ---
Per charge nurse, resident's dtr/DPMYLA Reyna Meehan is out of the country and can only be reached via e-mail until 11/27/16. She asked JOSSE if she can please email the new orders for resident. Charge nurse dictated orders to JOSSE and sent an email to resident's dtr. Addendum: 11/23/16 at 1229 by LUIS LOAIZA She replied back stating she appreciated the information and was still out of the country. She stated to please keep emailing her for any changes or to inform her of new orders.
--- NOTE | 2016-11-22 10:10 | NUR ---
Late entry 11/21/16 Pt's toes appear dark reddish to purplish in color. Dr. Ramirez examined them and he said pt has good circulation. No order.
[2016-11-22] MEDS: HYDROCORTISONE 1% CREAM 28.35 GM TUBE TP SCH ×2 (11:00→21:03)
[2016-11-22] MEDS: CLOTRIMAZOLE 1% CREAM 24 GM TUBE TP SCH ×2 (11:00→21:03)
[2016-11-22] MEDS: COD LIVER OIL/ZINC OXIDE 120 GM TUBE TP SCH ×4 (11:00→21:03)
[2016-11-22] MEDS: HYDROGEN PEROXIDE 480 ML BOTTLE TP SCH ×2 (11:00→21:03)
[2016-11-22] MEDS: HYDROGEL DRESSING 90 GM TUBE TP SCH ×2 (11:00→21:03)
[2016-11-22] MEDS: ZINC OXIDE 30 GM TUBE TP SCH ×2 (11:00→21:03)
[2016-11-22] MEDS: CLOTRIMAZOLE 1% 15 GM TUBE TP SCH ×5 (11:00→21:03)
[2016-11-22] MEDS: CHOLESTYRAMINE/ASPARTAME 4 G/PKT PACKET GT SCH (12:00)
--- NOTE | 2016-11-22 15:22 | NUR ---
Relayed right hand x-ray result to Dr. Monet. No new order.
[2016-11-22] MEDS: VALSARTAN 80 MG TABLET GT SCH (21:04)
[2016-11-23] MEDS: IPRATROPIUM NEB FS 0.5 MG/2.5 ML AMPUL.NEB IH SCH ×4 (01:14→19:43)
[2016-11-23] MEDS: ALBUTEROL FS 2.5 MG/3 ML VIAL.NEB NEB SCH ×4 (01:14→19:43)
[2016-11-23 01:20] VITALS: BP 120/72
[2016-11-23] MEDS: GLYTROL 1,000 ML BAG GT PRN (01:24)
[2016-11-23 05:20] VITALS: BP 126/70
[2016-11-23] MEDS: PANTOPRAZOLE 40 MG/PACK PACK GT SCH (05:36)
[2016-11-23] MEDS: LEVOTHYROXINE SODIUM 88 MCG TABLET GT SCH (05:36)
[2016-11-23] MEDS: BLOOD SUGAR DIAGNOSTIC 1 EACH STRIP IN SCH ×2 (05:46→18:27)
[2016-11-23 08:04] VITALS: BP 109/50
[2016-11-23] MEDS: CLOTRIMAZOLE 1% CREAM 24 GM TUBE TP SCH (09:00)
[2016-11-23] MEDS: PROSOURCE / PROSTAT (PYXIS) 30 ML UDC GT SCH ×2 (09:00→17:00)
[2016-11-23] MEDS: HYDROGEN PEROXIDE 480 ML BOTTLE TP SCH ×2 (09:00→21:19)
[2016-11-23] MEDS: LEVETIRACETAM SOL (5 ML) 100 MG/ML UDC GT SCH ×2 (09:00→21:17)
[2016-11-23] MEDS: COD LIVER OIL/ZINC OXIDE 120 GM TUBE TP SCH ×4 (09:00→21:18)
[2016-11-23] MEDS: HYDROGEL DRESSING 90 GM TUBE TP SCH ×2 (09:00→21:18)
[2016-11-23] MEDS: MVI/MINERALS LIQUID (CEROVITE) GT SCH (09:00)
[2016-11-23] MEDS: OMEGA GT SCH ×3 (09:00→17:00)
[2016-11-23] MEDS: HYDROCORTISONE 1% CREAM 28.35 GM TUBE TP SCH ×2 (09:00→21:00)
[2016-11-23] MEDS: CLOTRIMAZOLE 1% 15 GM TUBE TP SCH ×3 (09:00)
[2016-11-23] MEDS: ZINC OXIDE 30 GM TUBE TP SCH ×2 (09:00→21:19)
[2016-11-23] MEDS: LABETALOL HCL (100MG) 100 MG TABLET GT SCH ×2 (09:00→21:00)
[2016-11-23] MEDS: ASCORBIC ACID 500 MG TABLET GT SCH (09:00)
[2016-11-23] MEDS: CARBOXYMETHYLCELLULOSE SODIUM 0.4 ML DROPERETTE EACHEYE SCH (09:00)
[2016-11-23] MEDS: LACTOBACILLUS RHAMNOSUS GG 1 EACH CAP.SPRINK GT SCH (09:00)
[2016-11-23] MEDS: CHOLESTYRAMINE/ASPARTAME 4 G/PKT PACKET GT SCH (12:00)
--- NOTE | 2016-11-23 12:19 | NUR ---
Notitied Dr. Pena regarding family's request for ID consult due to presence of rashes in her hands and feet. NIKOLAI Hoffmann notified. Maddy who is at the bedside made aware of new order. SSD will notify responsible green party, Reyna via email regarding new order. Dr. Ramirez also made aware of R hand Xray result, NNO given.
--- NOTE | 2016-11-23 12:26 | NUR ---
Informed dtr/DPOA Reyna Meehan via email in regards to ID (infectious disease) consult ordered for the rashes on her hands and feet.
[2016-11-23 19:31] VITALS: BP 109/50
[2016-11-23 19:58] VITALS: BP 110/60
--- NOTE | 2016-11-23 20:30 | NUR ---
Pt seen and examined by Tahira MOORE she said that rashes in her hands and feet looks like and allergic reaction.We told her there's no new medications order ,only topical for the rashes Clotrimazole and Hydrocortisone.She ordered to discontinue all the creams and do not apply any lotion.Loratidine 10 mg via gt daily for allergy.All orders carried out.Will notify SW in AM to e mail the daughter for update.
[2016-11-23 21:14] VITALS: BP 108/60
[2016-11-23] MEDS: VALSARTAN 80 MG TABLET GT SCH (21:19)
[2016-11-24] MEDS: GLYTROL 1,000 ML BAG GT PRN ×2 (00:26→19:00)
[2016-11-24 01:30] VITALS: BP 112/60
[2016-11-24] MEDS: IPRATROPIUM NEB FS 0.5 MG/2.5 ML AMPUL.NEB IH SCH ×4 (02:22→19:57)
[2016-11-24] MEDS: ALBUTEROL FS 2.5 MG/3 ML VIAL.NEB NEB SCH ×4 (02:22→19:57)
[2016-11-24 05:33] VITALS: BP 116/58
[2016-11-24] MEDS: LEVOTHYROXINE SODIUM 88 MCG TABLET GT SCH (05:41)
[2016-11-24] MEDS: PANTOPRAZOLE 40 MG/PACK PACK GT SCH (05:41)
[2016-11-24] MEDS: BLOOD SUGAR DIAGNOSTIC 1 EACH STRIP IN SCH ×2 (06:10→17:14)
[2016-11-24 08:00] VITALS: BP 133/76
--- NOTE | 2016-11-24 08:54 | NUR ---
Emailed daughter/CINDY Meehan regarding new orders. stated the following: Pt seen and examined by Tahira MOORE she said that rashes in her hands and feet looks like and allergic reaction.We told her there's no new medications order ,only topical for the rashes Clotrimazole and Hydrocortisone.She ordered to discontinue all the creams and do not apply any lotion. Loratidine 10 mg via gt daily for allergy. Per TERESA Hoffmann, if no improvement they will order skin scrapping with bx. Addendum: 11/24/16 at 0917 by LUIS LOAIZA Dtr/CINDY Meehan responded back and stated "thank you for the update."
[2016-11-24] MEDS: HYDROCORTISONE 1% CREAM 28.35 GM TUBE TP SCH (09:00)
[2016-11-24] MEDS: HYDROGEL DRESSING 90 GM TUBE TP SCH ×2 (09:00→20:35)
[2016-11-24] MEDS: OMEGA GT SCH ×3 (09:00→16:10)
[2016-11-24] MEDS: PROSOURCE / PROSTAT (PYXIS) 30 ML UDC GT SCH ×2 (09:00→16:10)
[2016-11-24] MEDS: LORATADINE 10 MG TABLET GT SCH (09:00)
[2016-11-24] MEDS: LABETALOL HCL (100MG) 100 MG TABLET GT SCH ×2 (09:00→20:35)
[2016-11-24] MEDS: HYDROGEN PEROXIDE 480 ML BOTTLE TP SCH ×2 (09:00→20:35)
[2016-11-24] MEDS: ZINC OXIDE 30 GM TUBE TP SCH ×2 (09:00→20:35)
[2016-11-24] MEDS: COD LIVER OIL/ZINC OXIDE 120 GM TUBE TP SCH ×4 (09:00→20:35)
[2016-11-24] MEDS: MVI/MINERALS LIQUID (CEROVITE) GT SCH (09:00)
[2016-11-24] MEDS: LACTOBACILLUS RHAMNOSUS GG 1 EACH CAP.SPRINK GT SCH (09:00)
[2016-11-24] MEDS: LEVETIRACETAM SOL (5 ML) 100 MG/ML UDC GT SCH ×2 (09:00→20:34)
[2016-11-24] MEDS: CARBOXYMETHYLCELLULOSE SODIUM 0.4 ML DROPERETTE EACHEYE SCH (09:00)
[2016-11-24] MEDS: ASCORBIC ACID 500 MG TABLET GT SCH (09:00)
[2016-11-24] MEDS: CHOLESTYRAMINE/ASPARTAME 4 G/PKT PACKET GT SCH (12:00)
[2016-11-24 18:46] VITALS: BP_SYST 106; BP_SYST 66; BP_DIAS 60
--- NOTE | 2016-11-24 19:24 | NUR ---
Seen by FIELD SCOUT Becca Smith. Notified her that pt's hands and feet appear reddish purplish. No new order.
[2016-11-24 19:35] VITALS: BP 101/65
[2016-11-24] MEDS: VALSARTAN 80 MG TABLET GT SCH (21:13)
[2016-11-24 21:16] VITALS: BP 104/70
[2016-11-25] VITALS (7 sets, daily range): BP systolic 102–130; BP diastolic 52–68
[2016-11-25] MEDS: ALBUTEROL FS 2.5 MG/3 ML VIAL.NEB NEB SCH ×4 (01:39→20:15)
[2016-11-25] MEDS: IPRATROPIUM NEB FS 0.5 MG/2.5 ML AMPUL.NEB IH SCH ×4 (01:39→20:15)
[2016-11-25] MEDS: BLOOD SUGAR DIAGNOSTIC 1 EACH STRIP IN SCH ×2 (05:15→17:13)
[2016-11-25] MEDS: LEVOTHYROXINE SODIUM 88 MCG TABLET GT SCH (05:15)
[2016-11-25] MEDS: PANTOPRAZOLE 40 MG/PACK PACK GT SCH (05:15)
[2016-11-25] MEDS: INSULIN REGULAR, HUMAN 100 UNIT/ML 3 ML VIAL SQ PRN (05:16)
[2016-11-25] MEDS: ASCORBIC ACID 500 MG TABLET GT SCH (08:58)
[2016-11-25] MEDS: OMEGA GT SCH ×3 (08:59→16:43)
[2016-11-25] MEDS: LACTOBACILLUS RHAMNOSUS GG 1 EACH CAP.SPRINK GT SCH (08:59)
[2016-11-25] MEDS: PROSOURCE / PROSTAT (PYXIS) 30 ML UDC GT SCH ×2 (08:59→16:43)
[2016-11-25] MEDS: MVI/MINERALS LIQUID (CEROVITE) GT SCH (08:59)
[2016-11-25] MEDS: LORATADINE 10 MG TABLET GT SCH (08:59)
[2016-11-25] MEDS: HYDROGEL DRESSING 90 GM TUBE TP SCH ×2 (08:59→20:23)
[2016-11-25] MEDS: LABETALOL HCL (100MG) 100 MG TABLET GT SCH ×2 (08:59→20:23)
[2016-11-25] MEDS: LEVETIRACETAM SOL (5 ML) 100 MG/ML UDC GT SCH ×2 (08:59→20:23)
[2016-11-25] MEDS: CARBOXYMETHYLCELLULOSE SODIUM 0.4 ML DROPERETTE EACHEYE SCH (08:59)
[2016-11-25] MEDS: COD LIVER OIL/ZINC OXIDE 120 GM TUBE TP SCH ×4 (08:59→20:23)
[2016-11-25] MEDS: HYDROGEN PEROXIDE 480 ML BOTTLE TP SCH ×2 (09:00→20:23)
[2016-11-25] MEDS: ZINC OXIDE 30 GM TUBE TP SCH ×2 (09:00→20:23)
--- NOTE | 2016-11-25 09:00 | NUR ---
Notified Dr. Ramirez that resident is having low grade last night. Received an order to draw labs CBC and BMP. All orders noted and carried out.
[2016-11-25 10:48] LABS: BASOPHILS # (AUTO) 0.1 /CMM (0.0-0.2); BASOPHILS % (AUTO) 0.3 % (0.0-2.0); EOSINOPHILS # (AUTO) 5.5 /CMM (0.0-0.7); HEMATOCRIT 42 % (33-45); HEMOGLOBIN 13.8 g/dL (11.5-14.8); LYMPHOCYTES # (AUTO) 2.9 /CMM (0.8-4.8); LYMPHOCYTES % (AUTO) 15.9 % (20.0-44.0); MEAN CORPUSCULAR HEMOGLOBIN 27 PG (26.0-33.0); MEAN CORPUSCULAR HGB CONC 33 g/dl (31.0-36.0); MEAN CORPUSCULAR VOLUME 83 fL (82-100); MONOCYTES # (AUTO) 1.3 /CMM (0.1-1.30); MONOCYTES % (AUTO) 7.1 % (2.0-12.0); NEUTROPHILS # (AUTO) 8.6 /CMM (1.8-8.9); NEUTROPHILS % (AUTO) 46.9 % (43.0-81.0); PLATELET COUNT (AUTO) 386 /CMM (150-450); RDW COEFFICIENT OF VARIATION 14.7 (11.5-15.0); RED BLOOD CELL COUNT(AUTO) 5.08 MIL/uL (4.0-5.2); WHITE BLOOD COUNT (AUTO) 18.3 K/uL (4.3-11.0)
[2016-11-25 10:49] LABS: EOSINOPHILS % (AUTO) 29.8 % (0.0-6.0)
[2016-11-25 11:27] LABS: CALCIUM, SERUM 8.9 mg/dL (8.5-10.1); CARBON DIOXIDE 31 mmol/L (21-32); CHLORIDE 99 mmol/L (98-107); CREATININE 0.8 mg/dL (0.6-1.3); GLUCOSE 131 mg/dL (74-106); POTASSIUM 4.8 mmol/L (3.5-5.1); SODIUM SERUM 134 mmol/L (136-145); UREA NITROGEN, BLOOD 19 mg/dL (7-18)
--- NOTE | 2016-11-25 11:55 | NUR ---
Resident seen by Dr. Martins (director global sales) and gave no new orders for resident. Informed Reyna via email as she is still out of the country. Follow up recommended in 9-12 months.
[2016-11-25] MEDS: CHOLESTYRAMINE/ASPARTAME 4 G/PKT PACKET GT SCH (12:00)
[2016-11-25 12:10] LABS: BAND % (MANUAL) 5 % (0.0-5.0); EOSINOPHILS % (MANUAL) 25 % (0-4); LYMPHOCYTES % (MANUAL) 16 % (16-48); MONOCYTES % (MANUAL) 10 % (0-11.0); NEUTROPHILS % (MANUAL) 44 (42-76)
--- NOTE | 2016-11-25 14:20 | NUR ---
Relayed CBC result to Dr. Ramirez, WBC 18.6. TERESA Hoffmann also notified of the result. Awaiting for response.
[2016-11-25] MEDS: GLYTROL 1,000 ML BAG GT PRN (17:23)
--- NOTE | 2016-11-25 17:30 | NUR ---
Tahira SAND SCREENER aware of CBC and BMP result, with new order to start Vancomycin IV per pharmacy to dose. Faxed orders to [facility] and [facility] pharmacy for dosing.
--- NOTE | 2016-11-25 17:45 | NUR ---
Notified daughter Reyna Galindo, responsible alliance party regarding patient's change of condition and treatment plan (i.e. IV ATB and lab result). Appreciated the information.
[2016-11-25] MEDS ORDERED: FEE PK DOSING 1 MIN EA MC ONE (17:52)
[2016-11-25] MEDS ORDERED: VANCOMYCIN 0.75 GM in IV D5W 250 ML IV SCH (18:00)
--- NOTE | 2016-11-25 19:00 | NUR ---
Received a call from [facility] pharmacy, regarding Vancomycin dosing which is 750mg Q 18 hours. All orders noted and carried out. Endorsed to incoming shift.
[2016-11-25] MEDS: VANCOMYCIN 0.75 GM in IV D5W 250 ML IV SCH (21:07)
[2016-11-25] MEDS: VALSARTAN 80 MG TABLET GT SCH (21:16)
--- NOTE | 2016-11-25 22:00 | NUR ---
PT given Vancomycin 750mg IV for increase WBC,no adverse reaction noted.Will continue to monitor.
[2016-11-26] VITALS (8 sets, daily range): BP systolic 101–122; BP diastolic 47–69
[2016-11-26] MEDS: ALBUTEROL FS 2.5 MG/3 ML VIAL.NEB NEB SCH ×4 (00:57→19:16)
[2016-11-26] MEDS: IPRATROPIUM NEB FS 0.5 MG/2.5 ML AMPUL.NEB IH SCH ×4 (00:57→19:16)
[2016-11-26] MEDS: BLOOD SUGAR DIAGNOSTIC 1 EACH STRIP IN SCH ×2 (06:13→17:36)
[2016-11-26] MEDS: PANTOPRAZOLE 40 MG/PACK PACK GT SCH (06:13)
[2016-11-26] MEDS: LEVOTHYROXINE SODIUM 88 MCG TABLET GT SCH (06:13)
[2016-11-26] MEDS: INSULIN REGULAR, HUMAN 100 UNIT/ML 3 ML VIAL SQ PRN (06:14)
[2016-11-26 07:56] LABS: CALCIUM, SERUM 8.2 mg/dL (8.5-10.1); CARBON DIOXIDE 29 mmol/L (21-32); CHLORIDE 100 mmol/L (98-107); CREATININE 0.8 mg/dL (0.6-1.3); GLUCOSE 114 mg/dL (74-106); POTASSIUM 4.4 mmol/L (3.5-5.1); SODIUM SERUM 137 mmol/L (136-145); UREA NITROGEN, BLOOD 18 mg/dL (7-18)
[2016-11-26] MEDS: MVI/MINERALS LIQUID (CEROVITE) GT SCH (09:34)
[2016-11-26] MEDS: LABETALOL HCL (100MG) 100 MG TABLET GT SCH ×2 (09:34→20:38)
[2016-11-26] MEDS: LACTOBACILLUS RHAMNOSUS GG 1 EACH CAP.SPRINK GT SCH (09:34)
[2016-11-26] MEDS: LORATADINE 10 MG TABLET GT SCH (09:34)
[2016-11-26] MEDS: OMEGA GT SCH ×3 (09:34→17:36)
[2016-11-26] MEDS: ZINC OXIDE 30 GM TUBE TP SCH ×2 (09:34→20:38)
[2016-11-26] MEDS: ASCORBIC ACID 500 MG TABLET GT SCH (09:34)
[2016-11-26] MEDS: HYDROGEN PEROXIDE 480 ML BOTTLE TP SCH ×2 (09:34→20:38)
[2016-11-26] MEDS: HYDROGEL DRESSING 90 GM TUBE TP SCH ×2 (09:34→20:38)
[2016-11-26] MEDS: PROSOURCE / PROSTAT (PYXIS) 30 ML UDC GT SCH ×2 (09:34→17:36)
[2016-11-26] MEDS: CARBOXYMETHYLCELLULOSE SODIUM 0.4 ML DROPERETTE EACHEYE SCH (09:34)
[2016-11-26] MEDS: LEVETIRACETAM SOL (5 ML) 100 MG/ML UDC GT SCH ×2 (09:34→20:37)
[2016-11-26] MEDS: COD LIVER OIL/ZINC OXIDE 120 GM TUBE TP SCH ×4 (09:34→20:38)
[2016-11-26] MEDS: CHOLESTYRAMINE/ASPARTAME 4 G/PKT PACKET GT SCH (12:09)
[2016-11-26] MEDS: GLYTROL 1,000 ML BAG GT PRN (12:09)
[2016-11-26] MEDS: VANCOMYCIN 0.75 GM in IV D5W 250 ML IV SCH (15:30)
[2016-11-26] MEDS: VALSARTAN 80 MG TABLET GT SCH (21:18)
[2016-11-27] VITALS (7 sets, daily range): BP systolic 107–120; BP diastolic 59–70
[2016-11-27] MEDS: ALBUTEROL FS 2.5 MG/3 ML VIAL.NEB NEB SCH ×4 (01:39→19:58)
[2016-11-27] MEDS: IPRATROPIUM NEB FS 0.5 MG/2.5 ML AMPUL.NEB IH SCH ×4 (01:39→19:58)
[2016-11-27] MEDS: LEVOTHYROXINE SODIUM 88 MCG TABLET GT SCH (05:20)
[2016-11-27] MEDS: INSULIN REGULAR, HUMAN 100 UNIT/ML 3 ML VIAL SQ PRN (05:20)
[2016-11-27] MEDS: BLOOD SUGAR DIAGNOSTIC 1 EACH STRIP IN SCH ×2 (05:20→17:27)
[2016-11-27] MEDS: PANTOPRAZOLE 40 MG/PACK PACK GT SCH (05:20)
[2016-11-27] MEDS: GLYTROL 1,000 ML BAG GT PRN (05:21)
[2016-11-27 07:33] LABS: CALCIUM, SERUM 8.6 mg/dL (8.5-10.1); CARBON DIOXIDE 28 mmol/L (21-32); CHLORIDE 100 mmol/L (98-107); CREATININE 0.8 mg/dL (0.6-1.3); GLUCOSE 116 mg/dL (74-106); POTASSIUM 4.3 mmol/L (3.5-5.1); SODIUM SERUM 136 mmol/L (136-145); UREA NITROGEN, BLOOD 19 mg/dL (7-18)
[2016-11-27] MEDS: OMEGA GT SCH ×3 (09:00→16:13)
[2016-11-27] MEDS: MVI/MINERALS LIQUID (CEROVITE) GT SCH (09:00)
[2016-11-27] MEDS: HYDROGEN PEROXIDE 480 ML BOTTLE TP SCH ×2 (09:00→21:02)
[2016-11-27] MEDS: CARBOXYMETHYLCELLULOSE SODIUM 0.4 ML DROPERETTE EACHEYE SCH (09:00)
[2016-11-27] MEDS: LORATADINE 10 MG TABLET GT SCH (09:00)
[2016-11-27] MEDS: LABETALOL HCL (100MG) 100 MG TABLET GT SCH ×2 (09:00→21:01)
[2016-11-27] MEDS: ZINC OXIDE 30 GM TUBE TP SCH ×2 (09:00→21:02)
[2016-11-27] MEDS: HYDROGEL DRESSING 90 GM TUBE TP SCH ×2 (09:00→21:01)
[2016-11-27] MEDS: LACTOBACILLUS RHAMNOSUS GG 1 EACH CAP.SPRINK GT SCH (09:00)
[2016-11-27] MEDS: PROSOURCE / PROSTAT (PYXIS) 30 ML UDC GT SCH ×2 (09:00→16:13)
[2016-11-27] MEDS: ASCORBIC ACID 500 MG TABLET GT SCH (09:00)
[2016-11-27] MEDS: LEVETIRACETAM SOL (5 ML) 100 MG/ML UDC GT SCH ×2 (09:00→21:01)
[2016-11-27] MEDS: COD LIVER OIL/ZINC OXIDE 120 GM TUBE TP SCH ×4 (09:00→21:02)
--- NOTE | 2016-11-27 09:11 | NUR ---
VANCOMYCIN TROUGH 9. CALLED PHARMACY SPOKE TO JIM, WILL SEND VANCOMYCIN 0.75GM DOSE TODAY.
[2016-11-27] MEDS: VANCOMYCIN 0.75 GM in IV D5W 250 ML IV SCH ×2 (09:53→22:26)
--- NOTE | 2016-11-27 10:00 | NUR ---
IV IN INNER RFA REMOVED DUE TO INFILTRATED SITE. RE INSERTED IV GAUGE 22 IN OUTER RFA WITH GOOD BLOOD RETURN, TUBINGS SECURED WITH TAPE.
[2016-11-27] MEDS: CHOLESTYRAMINE/ASPARTAME 4 G/PKT PACKET GT SCH (12:21)
[2016-11-27] MEDS: VALSARTAN 80 MG TABLET GT SCH (21:02)
[2016-11-28] VITALS (7 sets, daily range): BP systolic 102–133; BP diastolic 61–70
[2016-11-28] MEDS: ALBUTEROL FS 2.5 MG/3 ML VIAL.NEB NEB SCH ×4 (01:13→19:30)
[2016-11-28] MEDS: IPRATROPIUM NEB FS 0.5 MG/2.5 ML AMPUL.NEB IH SCH ×4 (01:13→19:30)
[2016-11-28] MEDS: BLOOD SUGAR DIAGNOSTIC 1 EACH STRIP IN SCH ×2 (05:34→18:33)
[2016-11-28] MEDS: LEVOTHYROXINE SODIUM 88 MCG TABLET GT SCH (05:34)
[2016-11-28] MEDS: PANTOPRAZOLE 40 MG/PACK PACK GT SCH (05:34)
[2016-11-28] MEDS: GLYTROL 1,000 ML BAG GT PRN (05:34)
[2016-11-28 06:47] LABS: CALCIUM, SERUM 8.8 mg/dL (8.5-10.1); CARBON DIOXIDE 31 mmol/L (21-32); CHLORIDE 100 mmol/L (98-107); CREATININE 0.8 mg/dL (0.6-1.3); GLUCOSE 123 mg/dL (74-106); SODIUM SERUM 138 mmol/L (136-145); UREA NITROGEN, BLOOD 17 mg/dL (7-18)
[2016-11-28] MEDS: PROSOURCE / PROSTAT (PYXIS) 30 ML UDC GT SCH ×2 (09:01→17:00)
[2016-11-28] MEDS: LORATADINE 10 MG TABLET GT SCH (09:01)
[2016-11-28] MEDS: CARBOXYMETHYLCELLULOSE SODIUM 0.4 ML DROPERETTE EACHEYE SCH (09:01)
[2016-11-28] MEDS: LACTOBACILLUS RHAMNOSUS GG 1 EACH CAP.SPRINK GT SCH (09:01)
[2016-11-28] MEDS: LEVETIRACETAM SOL (5 ML) 100 MG/ML UDC GT SCH ×2 (09:01→21:06)
[2016-11-28] MEDS: MVI/MINERALS LIQUID (CEROVITE) GT SCH (09:01)
[2016-11-28] MEDS: OMEGA GT SCH ×3 (09:01→17:00)
[2016-11-28] MEDS: LABETALOL HCL (100MG) 100 MG TABLET GT SCH ×2 (09:02→21:00)
[2016-11-28] MEDS: ASCORBIC ACID 500 MG TABLET GT SCH (09:02)
[2016-11-28] MEDS: VANCOMYCIN 0.75 GM in IV D5W 250 ML IV SCH (10:00)
[2016-11-28] MEDS: CHOLESTYRAMINE/ASPARTAME 4 G/PKT PACKET GT SCH (12:00)
--- NOTE | 2016-11-28 12:15 | NUR ---
Ms. Hudson (ELECTRONIC EQUIPMENT MAINT TECH) did rounds today, made aware of final results of urine culture, currently on vanco IV Q 12 HRS, no stop date. She wants ID ELECTRONIC EQUIPMENT MAINT TECH (Ms. Hoffmann) to be made aware. Patient no fever today, less rash now. Patient closely monitored.
[2016-11-28] MEDS: COD LIVER OIL/ZINC OXIDE 120 GM TUBE TP SCH ×4 (13:45→21:07)
[2016-11-28] MEDS: HYDROGEN PEROXIDE 480 ML BOTTLE TP SCH ×2 (13:45→21:07)
[2016-11-28] MEDS: ZINC OXIDE 30 GM TUBE TP SCH ×2 (13:45→21:07)
[2016-11-28] MEDS: HYDROGEL DRESSING 90 GM TUBE TP SCH ×2 (13:45→21:07)
--- NOTE | 2016-11-28 18:00 | NUR ---
Ms. Tahira MOORE called and made aware of final urine culture results,she said will checked on it and shes' on her way to [facility].
[2016-11-28] MEDS: VALSARTAN 80 MG TABLET GT SCH (21:07)
[2016-11-29] VITALS (8 sets, daily range): BP systolic 112–125; BP diastolic 60–69
[2016-11-29] MEDS: IPRATROPIUM NEB FS 0.5 MG/2.5 ML AMPUL.NEB IH SCH ×4 (00:33→19:40)
[2016-11-29] MEDS: ALBUTEROL FS 2.5 MG/3 ML VIAL.NEB NEB SCH ×4 (00:33→19:40)
[2016-11-29] MEDS: GLYTROL 1,000 ML BAG GT PRN (01:11)
[2016-11-29] MEDS: LEVOTHYROXINE SODIUM 88 MCG TABLET GT SCH (05:47)
[2016-11-29] MEDS: PANTOPRAZOLE 40 MG/PACK PACK GT SCH (05:47)
[2016-11-29] MEDS: BLOOD SUGAR DIAGNOSTIC 1 EACH STRIP IN SCH ×2 (06:03→17:36)
[2016-11-29 07:38] LABS: CALCIUM, SERUM 8.7 mg/dL (8.5-10.1); CHLORIDE 98 mmol/L (98-107); CREATININE 0.8 mg/dL (0.6-1.3); GLUCOSE 131 mg/dL (74-106); POTASSIUM 4.2 mmol/L (3.5-5.1); UREA NITROGEN, BLOOD 19 mg/dL (7-18)
[2016-11-29 07:56] LABS: CARBON DIOXIDE 28 mmol/L (21-32); SODIUM SERUM 135 mmol/L (136-145)
[2016-11-29] MEDS: MVI/MINERALS LIQUID (CEROVITE) GT SCH (08:04)
[2016-11-29] MEDS: PROSOURCE / PROSTAT (PYXIS) 30 ML UDC GT SCH ×2 (08:04→17:36)
[2016-11-29] MEDS: ASCORBIC ACID 500 MG TABLET GT SCH (08:04)
[2016-11-29] MEDS: LORATADINE 10 MG TABLET GT SCH (08:04)
[2016-11-29] MEDS: OMEGA GT SCH ×3 (08:04→17:36)
[2016-11-29] MEDS: CARBOXYMETHYLCELLULOSE SODIUM 0.4 ML DROPERETTE EACHEYE SCH (08:04)
[2016-11-29] MEDS: LACTOBACILLUS RHAMNOSUS GG 1 EACH CAP.SPRINK GT SCH (08:04)
[2016-11-29] MEDS: LABETALOL HCL (100MG) 100 MG TABLET GT SCH ×2 (08:04→21:12)
[2016-11-29] MEDS: LEVETIRACETAM SOL (5 ML) 100 MG/ML UDC GT SCH ×2 (08:04→21:12)
[2016-11-29] MEDS: ACETAMINOPHEN 650 MG/20 ML UDC- FOR SA PATIENTS ONLY GT PRN ×3 (08:05→19:14)
--- NOTE | 2016-11-29 09:05 | NUR ---
TERESA Hoffmann ordered to give Merrem 500 mg IV q 12 hours for 10 days for UTI per pharmacist Horace's recommendation. Notified Reyna.
[2016-11-29] MEDS: MEROPENEM 500 MG in IV NS 0.9% 50 ML IV SCH ×2 (09:30→21:00)
--- NOTE | 2016-11-29 10:00 | NUR ---
Seen by Dr. Monet. Relayed BMP result to him. No new order.
--- NOTE | 2016-11-29 10:30 | NUR ---
Received Merrem from pharmacy, administered first dose.
[2016-11-29] MEDS: CHOLESTYRAMINE/ASPARTAME 4 G/PKT PACKET GT SCH (12:00)
[2016-11-29] MEDS: HYDROGEN PEROXIDE 480 ML BOTTLE TP SCH ×2 (14:00→21:13)
[2016-11-29] MEDS: COD LIVER OIL/ZINC OXIDE 120 GM TUBE TP SCH ×4 (14:00→21:13)
[2016-11-29] MEDS: HYDROGEL DRESSING 90 GM TUBE TP SCH ×2 (14:00→21:13)
[2016-11-29] MEDS: ZINC OXIDE 30 GM TUBE TP SCH ×2 (14:00→21:13)
[2016-11-29] MEDS: VALSARTAN 80 MG TABLET GT SCH (21:13)
[2016-11-30] VITALS (7 sets, daily range): BP systolic 107–130; BP diastolic 62–78
[2016-11-30] MEDS: IPRATROPIUM NEB FS 0.5 MG/2.5 ML AMPUL.NEB IH SCH ×4 (01:47→19:48)
[2016-11-30] MEDS: ALBUTEROL FS 2.5 MG/3 ML VIAL.NEB NEB SCH ×4 (01:47→19:48)
[2016-11-30] MEDS: PANTOPRAZOLE 40 MG/PACK PACK GT SCH (05:38)
[2016-11-30] MEDS: LEVOTHYROXINE SODIUM 88 MCG TABLET GT SCH (05:38)
[2016-11-30] MEDS: BLOOD SUGAR DIAGNOSTIC 1 EACH STRIP IN SCH ×2 (06:01→18:07)
[2016-11-30] MEDS: MEROPENEM 500 MG in IV NS 0.9% 50 ML IV SCH ×2 (08:25→21:49)
[2016-11-30] MEDS: LABETALOL HCL (100MG) 100 MG TABLET GT SCH ×2 (09:00→20:08)
[2016-11-30] MEDS: ASCORBIC ACID 500 MG TABLET GT SCH ×2 (09:42→20:08)
[2016-11-30] MEDS: HYDROGEL DRESSING 90 GM TUBE TP SCH ×2 (09:42→20:08)
[2016-11-30] MEDS: HYDROGEN PEROXIDE 480 ML BOTTLE TP SCH ×2 (09:42→20:09)
[2016-11-30] MEDS: PROSOURCE / PROSTAT (PYXIS) 30 ML UDC GT SCH ×2 (09:42→17:28)
[2016-11-30] MEDS: COD LIVER OIL/ZINC OXIDE 120 GM TUBE TP SCH ×4 (09:42→20:08)
[2016-11-30] MEDS: LEVETIRACETAM SOL (5 ML) 100 MG/ML UDC GT SCH ×2 (09:47→20:07)
[2016-11-30] MEDS: LACTOBACILLUS RHAMNOSUS GG 1 EACH CAP.SPRINK GT SCH (09:47)
[2016-11-30] MEDS: LORATADINE 10 MG TABLET GT SCH (09:47)
[2016-11-30] MEDS: MVI/MINERALS LIQUID (CEROVITE) GT SCH ×2 (09:47→20:08)
[2016-11-30] MEDS: ZINC OXIDE 30 GM TUBE TP SCH ×2 (09:47→20:09)
[2016-11-30] MEDS: OMEGA GT SCH ×3 (09:47→17:28)
[2016-11-30] MEDS: CARBOXYMETHYLCELLULOSE SODIUM 0.4 ML DROPERETTE EACHEYE SCH (09:47)
[2016-11-30] MEDS: CHOLESTYRAMINE/ASPARTAME 4 G/PKT PACKET GT SCH (12:00)
[2016-11-30] MEDS: GLYTROL 1,000 ML BAG GT PRN (18:08)
[2016-11-30] MEDS ORDERED: MEROPENEM 500 MG VIAL IV ONE (21:42)
[2016-11-30] MEDS: VALSARTAN 80 MG TABLET GT SCH (22:00)
[2016-12-01] VITALS (7 sets, daily range): BP systolic 101–123; BP diastolic 54–70
[2016-12-01] MEDS: ALBUTEROL FS 2.5 MG/3 ML VIAL.NEB NEB SCH ×4 (01:54→19:59)
[2016-12-01] MEDS: IPRATROPIUM NEB FS 0.5 MG/2.5 ML AMPUL.NEB IH SCH ×4 (01:54→19:59)
[2016-12-01] MEDS: BLOOD SUGAR DIAGNOSTIC 1 EACH STRIP IN SCH ×2 (06:21→18:49)
[2016-12-01] MEDS: PANTOPRAZOLE 40 MG/PACK PACK GT SCH (06:21)
[2016-12-01] MEDS: LEVOTHYROXINE SODIUM 88 MCG TABLET GT SCH (06:21)
[2016-12-01] MEDS: INSULIN REGULAR, HUMAN 100 UNIT/ML 3 ML VIAL SQ PRN (06:21)
[2016-12-01] MEDS: LABETALOL HCL (100MG) 100 MG TABLET GT SCH ×2 (09:00→20:08)
[2016-12-01] MEDS: PROSOURCE / PROSTAT (PYXIS) 30 ML UDC GT SCH ×2 (09:00→17:00)
[2016-12-01] MEDS: HYDROGEN PEROXIDE 480 ML BOTTLE TP SCH ×2 (09:00→20:09)
[2016-12-01] MEDS: LACTOBACILLUS RHAMNOSUS GG 1 EACH CAP.SPRINK GT SCH (09:00)
[2016-12-01] MEDS: LORATADINE 10 MG TABLET GT SCH (09:00)
[2016-12-01] MEDS: ZINC OXIDE 30 GM TUBE TP SCH ×2 (09:00→20:09)
[2016-12-01] MEDS: HYDROGEL DRESSING 90 GM TUBE TP SCH ×2 (09:00→20:08)
[2016-12-01] MEDS: CARBOXYMETHYLCELLULOSE SODIUM 0.4 ML DROPERETTE EACHEYE SCH (09:00)
[2016-12-01] MEDS: COD LIVER OIL/ZINC OXIDE 120 GM TUBE TP SCH ×4 (09:00→20:09)
[2016-12-01] MEDS: OMEGA GT SCH ×3 (09:00→17:00)
[2016-12-01] MEDS: LEVETIRACETAM SOL (5 ML) 100 MG/ML UDC GT SCH ×2 (09:00→20:08)
[2016-12-01] MEDS: MEROPENEM 500 MG in IV NS 0.9% 50 ML IV SCH ×2 (09:30→21:17)
[2016-12-01] MEDS: CHOLESTYRAMINE/ASPARTAME 4 G/PKT PACKET GT SCH (12:00)
[2016-12-01] MEDS: GLYTROL 1,000 ML BAG GT PRN (18:55)
[2016-12-01] MEDS: MVI/MINERALS LIQUID (CEROVITE) GT SCH (20:08)
[2016-12-01] MEDS: ASCORBIC ACID 500 MG TABLET GT SCH (20:08)
[2016-12-01] MEDS: VALSARTAN 80 MG TABLET GT SCH (22:00)
[2016-12-02] VITALS (7 sets, daily range): BP systolic 93–142; BP diastolic 53–88
[2016-12-02] MEDS: ALBUTEROL FS 2.5 MG/3 ML VIAL.NEB NEB SCH ×4 (02:26→19:27)
[2016-12-02] MEDS: IPRATROPIUM NEB FS 0.5 MG/2.5 ML AMPUL.NEB IH SCH ×4 (02:26→19:27)
[2016-12-02] MEDS: LEVOTHYROXINE SODIUM 88 MCG TABLET GT SCH (05:03)
[2016-12-02] MEDS: PANTOPRAZOLE 40 MG/PACK PACK GT SCH (05:03)
[2016-12-02] MEDS: BLOOD SUGAR DIAGNOSTIC 1 EACH STRIP IN SCH ×2 (05:21→17:50)
[2016-12-02] MEDS: INSULIN REGULAR, HUMAN 100 UNIT/ML 3 ML VIAL SQ PRN (05:22)
[2016-12-02] MEDS: LORATADINE 10 MG TABLET GT SCH (09:00)
[2016-12-02] MEDS: OMEGA GT SCH ×3 (09:00→17:00)
[2016-12-02] MEDS: CARBOXYMETHYLCELLULOSE SODIUM 0.4 ML DROPERETTE EACHEYE SCH (09:00)
[2016-12-02] MEDS: LABETALOL HCL (100MG) 100 MG TABLET GT SCH ×2 (09:00→20:15)
[2016-12-02] MEDS: PROSOURCE / PROSTAT (PYXIS) 30 ML UDC GT SCH ×2 (09:00→17:50)
[2016-12-02] MEDS: LEVETIRACETAM SOL (5 ML) 100 MG/ML UDC GT SCH ×2 (09:00→20:14)
[2016-12-02] MEDS: LACTOBACILLUS RHAMNOSUS GG 1 EACH CAP.SPRINK GT SCH (09:00)
[2016-12-02] MEDS: ZINC OXIDE 30 GM TUBE TP SCH ×2 (09:01→20:15)
[2016-12-02] MEDS: HYDROGEN PEROXIDE 480 ML BOTTLE TP SCH ×2 (09:01→20:15)
[2016-12-02] MEDS: COD LIVER OIL/ZINC OXIDE 120 GM TUBE TP SCH ×4 (09:01→20:15)
[2016-12-02] MEDS: HYDROGEL DRESSING 90 GM TUBE TP SCH ×2 (09:01→20:15)
[2016-12-02] MEDS: MEROPENEM 500 MG in IV NS 0.9% 50 ML IV SCH ×2 (09:21→21:04)
[2016-12-02] MEDS: CHOLESTYRAMINE/ASPARTAME 4 G/PKT PACKET GT SCH (12:00)
--- NOTE | 2016-12-02 12:15 | NUR ---
Seen and examined by Becca MOORE made aware of the rash/hives in the R arm she stated that is is more of hives and therefore to refer to ID. Notified TERESA Hoffmann regarding hives in the right arms. Tahira said she will be in today.
--- NOTE | 2016-12-02 14:00 | NUR ---
IDT meeting held, Marielena Miller, daughter participated in the meeting vis phone conference. Reviewed current medication orders, treatment and labs. Resident still on IV ATB Merrem for UTI, family is concern about the rashes//hive present in her arms. She asked if ID can take a look at it and order some cream. Inform Marielena Miller that Infectious disease CLINICAL EDUCATION MANAGER is aware and will be in later tonight.
--- NOTE | 2016-12-02 19:30 | NUR ---
Seen by TERESA Hoffmann with new order of Hydrocortisone 1% cream to apply rashes to affected area twice daily x 14 days.Order carried out and daughter made aware.
[2016-12-02] MEDS: MULTIVIT, IRON, MIN NO. 8, FA 1 TAB GT SCH (20:14)
[2016-12-02] MEDS: ASCORBIC ACID 500 MG TABLET GT SCH (20:15)
[2016-12-02] MEDS: HYDROCORTISONE 1% CREAM 28.35 GM TUBE TP SCH (20:24)
[2016-12-02] MEDS: HYDROCORTISONE 1% CREAM 30 GM TUBE TP SCH (20:24)
[2016-12-02] MEDS: VALSARTAN 80 MG TABLET GT SCH (22:03)
[2016-12-03] VITALS (7 sets, daily range): BP systolic 102–137; BP diastolic 59–83
[2016-12-03] MEDS: GLYTROL 1,000 ML BAG GT PRN ×2 (00:58→21:43)
[2016-12-03] MEDS: IPRATROPIUM NEB FS 0.5 MG/2.5 ML AMPUL.NEB IH SCH ×4 (01:46→20:07)
[2016-12-03] MEDS: ALBUTEROL FS 2.5 MG/3 ML VIAL.NEB NEB SCH ×4 (01:46→20:07)
[2016-12-03] MEDS: BLOOD SUGAR DIAGNOSTIC 1 EACH STRIP IN SCH ×2 (05:57→17:29)
[2016-12-03] MEDS: LEVOTHYROXINE SODIUM 88 MCG TABLET GT SCH (05:57)
[2016-12-03] MEDS: PANTOPRAZOLE 40 MG/PACK PACK GT SCH (05:57)
[2016-12-03] MEDS: INSULIN REGULAR, HUMAN 100 UNIT/ML 3 ML VIAL SQ PRN (05:59)
[2016-12-03] MEDS: LORATADINE 10 MG TABLET GT SCH (08:34)
[2016-12-03] MEDS: LABETALOL HCL (100MG) 100 MG TABLET GT SCH ×2 (08:34→21:45)
[2016-12-03] MEDS: OMEGA GT SCH ×3 (08:34→17:29)
[2016-12-03] MEDS: LEVETIRACETAM SOL (5 ML) 100 MG/ML UDC GT SCH ×2 (08:34→21:44)
[2016-12-03] MEDS: CARBOXYMETHYLCELLULOSE SODIUM 0.4 ML DROPERETTE EACHEYE SCH (08:34)
[2016-12-03] MEDS: PROSOURCE / PROSTAT (PYXIS) 30 ML UDC GT SCH ×2 (08:34→17:29)
[2016-12-03] MEDS: LACTOBACILLUS RHAMNOSUS GG 1 EACH CAP.SPRINK GT SCH (08:34)
[2016-12-03] MEDS: MEROPENEM 500 MG in IV NS 0.9% 50 ML IV SCH (09:18)
[2016-12-03] MEDS: HYDROCORTISONE 1% CREAM 30 GM TUBE TP SCH ×2 (10:30→21:44)
[2016-12-03] MEDS: HYDROCORTISONE 1% CREAM 28.35 GM TUBE TP SCH ×6 (10:30→21:44)
[2016-12-03] MEDS: COD LIVER OIL/ZINC OXIDE 120 GM TUBE TP SCH ×4 (10:30→21:44)
[2016-12-03] MEDS: HYDROGEN PEROXIDE 480 ML BOTTLE TP SCH ×2 (10:30→21:44)
[2016-12-03] MEDS: HYDROGEL DRESSING 90 GM TUBE TP SCH ×2 (10:30→21:44)
[2016-12-03] MEDS: ZINC OXIDE 30 GM TUBE TP SCH ×2 (10:30→21:44)
[2016-12-03] MEDS ORDERED: DOSING PER PHARMACY-AMIKACI IV XX PRN (12:00)
[2016-12-03] MEDS: CHOLESTYRAMINE/ASPARTAME 4 G/PKT PACKET GT SCH (12:00)
[2016-12-03] MEDS ORDERED: FEE PK DOSING 1 MIN EA MC ONE (13:58)
[2016-12-03] MEDS ORDERED: AMIKACIN 500 MG in IV D5W 100 ML IV SCH (14:00)
--- NOTE | 2016-12-03 14:30 | NUR ---
TERESA Hoffmann ID reviewed resident's ATB and microbiology result. new order given to d/c Merrem and start pt. on Amikacin per pharmacy to dose. [facility] pharmacist Mary dosed Amikacin at 350mg q 18hours all orders noted and carried out. Reyna was notified of this change in ATB therapy and the new order of Hydrocortisone cream. She said " Thank you for letting me know, I understand that sometimes medication is changed"
[2016-12-03] MEDS: AMIKACIN 350 MG in IV D5W 100 ML IV SCH (14:50)
[2016-12-03] MEDS: MULTIVIT, IRON, MIN NO. 8, FA 1 TAB GT SCH (21:44)
[2016-12-03] MEDS: ASCORBIC ACID 500 MG TABLET GT SCH (21:44)
[2016-12-03] MEDS: VALSARTAN 80 MG TABLET GT SCH (22:45)
[2016-12-04] VITALS (7 sets, daily range): BP systolic 101–129; BP diastolic 54–69
[2016-12-04] MEDS: IPRATROPIUM NEB FS 0.5 MG/2.5 ML AMPUL.NEB IH SCH ×4 (02:25→19:52)
[2016-12-04] MEDS: ALBUTEROL FS 2.5 MG/3 ML VIAL.NEB NEB SCH ×4 (02:25→19:52)
[2016-12-04] MEDS: BLOOD SUGAR DIAGNOSTIC 1 EACH STRIP IN SCH ×2 (06:11→17:21)
[2016-12-04] MEDS: PANTOPRAZOLE 40 MG/PACK PACK GT SCH (06:11)
[2016-12-04] MEDS: LEVOTHYROXINE SODIUM 88 MCG TABLET GT SCH (06:11)
[2016-12-04 07:56] LABS: CALCIUM, SERUM 8.8 mg/dL (8.5-10.1); CARBON DIOXIDE 29 mmol/L (21-32); CHLORIDE 103 mmol/L (98-107); CREATININE 0.7 mg/dL (0.6-1.3); GLUCOSE 104 mg/dL (74-106); POTASSIUM 4.6 mmol/L (3.5-5.1); SODIUM SERUM 138 mmol/L (136-145); UREA NITROGEN, BLOOD 20 mg/dL (7-18)
[2016-12-04] MEDS: AMIKACIN 350 MG in IV D5W 100 ML IV SCH (08:00)
[2016-12-04] MEDS: LABETALOL HCL (100MG) 100 MG TABLET GT SCH ×2 (08:30→21:27)
[2016-12-04] MEDS: LEVETIRACETAM SOL (5 ML) 100 MG/ML UDC GT SCH ×2 (08:30→21:27)
[2016-12-04] MEDS: OMEGA GT SCH ×3 (08:30→17:21)
[2016-12-04] MEDS: LORATADINE 10 MG TABLET GT SCH (08:30)
[2016-12-04] MEDS: CARBOXYMETHYLCELLULOSE SODIUM 0.4 ML DROPERETTE EACHEYE SCH (08:30)
[2016-12-04] MEDS: LACTOBACILLUS RHAMNOSUS GG 1 EACH CAP.SPRINK GT SCH (08:30)
[2016-12-04] MEDS: PROSOURCE / PROSTAT (PYXIS) 30 ML UDC GT SCH ×2 (08:30→17:21)
[2016-12-04] MEDS: HYDROGEL DRESSING 90 GM TUBE TP SCH ×2 (08:31→21:27)
[2016-12-04] MEDS: HYDROCORTISONE 1% CREAM 28.35 GM TUBE TP SCH ×6 (08:31→21:28)
[2016-12-04] MEDS: HYDROCORTISONE 1% CREAM 30 GM TUBE TP SCH ×2 (08:31→21:28)
[2016-12-04] MEDS: COD LIVER OIL/ZINC OXIDE 120 GM TUBE TP SCH ×4 (08:31→21:27)
[2016-12-04] MEDS: HYDROGEN PEROXIDE 480 ML BOTTLE TP SCH ×2 (08:32→21:28)
[2016-12-04] MEDS: ZINC OXIDE 30 GM TUBE TP SCH ×2 (08:32→21:28)
[2016-12-04] MEDS: CHOLESTYRAMINE/ASPARTAME 4 G/PKT PACKET GT SCH (12:00)
--- NOTE | 2016-12-04 13:08 | NUR ---
Sylvia (Pharmacist) called and reminded that amikacin peak level is due on 12/05 at 3 am 1 hour after IV amikacin administration, pls call lab to draw amikacin peak level.
[2016-12-04] MEDS: ASCORBIC ACID 500 MG TABLET GT SCH (21:27)
[2016-12-04] MEDS: MULTIVIT, IRON, MIN NO. 8, FA 1 TAB GT SCH (21:27)
[2016-12-04] MEDS: VALSARTAN 80 MG TABLET GT SCH (22:21)
[2016-12-05] VITALS (7 sets, daily range): BP systolic 109–136; BP diastolic 58–72
[2016-12-05] MEDS: IPRATROPIUM NEB FS 0.5 MG/2.5 ML AMPUL.NEB IH SCH ×4 (01:10→19:41)
[2016-12-05] MEDS: ALBUTEROL FS 2.5 MG/3 ML VIAL.NEB NEB SCH ×4 (01:10→19:41)
[2016-12-05] MEDS: AMIKACIN 350 MG in IV D5W 100 ML IV SCH ×2 (03:00→20:00)
[2016-12-05 05:31] LABS: BASOPHILS # (AUTO) 0.1 /CMM (0.0-0.2); BASOPHILS % (AUTO) 0.4 % (0.0-2.0); EOSINOPHILS # (AUTO) 3.4 /CMM (0.0-0.7); EOSINOPHILS % (AUTO) 23.8 % (0.0-6.0); HEMATOCRIT 42 % (33-45); HEMOGLOBIN 13.9 g/dL (11.5-14.8); LYMPHOCYTES # (AUTO) 2.6 /CMM (0.8-4.8); LYMPHOCYTES % (AUTO) 18.1 % (20.0-44.0); MEAN CORPUSCULAR HEMOGLOBIN 28 PG (26.0-33.0); MEAN CORPUSCULAR HGB CONC 33 g/dl (31.0-36.0); MEAN CORPUSCULAR VOLUME 83 fL (82-100); MONOCYTES % (AUTO) 6.7 % (2.0-12.0); NEUTROPHILS # (AUTO) 7.3 /CMM (1.8-8.9); PLATELET COUNT (AUTO) 334 /CMM (150-450); RDW COEFFICIENT OF VARIATION 14.7 (11.5-15.0); RED BLOOD CELL COUNT(AUTO) 5.05 MIL/uL (4.0-5.2); WHITE BLOOD COUNT (AUTO) 14.4 K/uL (4.3-11.0)
[2016-12-05 05:41] LABS: CALCIUM, SERUM 8.9 mg/dL (8.5-10.1); CARBON DIOXIDE 29 mmol/L (21-32); CHLORIDE 101 mmol/L (98-107); CREATININE 0.7 mg/dL (0.6-1.3); GLUCOSE 128 mg/dL (74-106); POTASSIUM 4.4 mmol/L (3.5-5.1); SODIUM SERUM 138 mmol/L (136-145); UREA NITROGEN, BLOOD 25 mg/dL (7-18)
[2016-12-05] MEDS: LEVOTHYROXINE SODIUM 88 MCG TABLET GT SCH (05:49)
[2016-12-05] MEDS: PANTOPRAZOLE 40 MG/PACK PACK GT SCH (05:49)
[2016-12-05] MEDS: BLOOD SUGAR DIAGNOSTIC 1 EACH STRIP IN SCH ×2 (05:50→18:27)
[2016-12-05 05:59] LABS: EOSINOPHILS % (MANUAL) 22 % (0-4); LYMPHOCYTES % (MANUAL) 26 % (16-48); MONOCYTES % (MANUAL) 6 % (0-11.0); NEUTROPHILS % (MANUAL) 46 (42-76)
[2016-12-05] MEDS: CARBOXYMETHYLCELLULOSE SODIUM 0.4 ML DROPERETTE EACHEYE SCH (08:57)
[2016-12-05] MEDS: LORATADINE 10 MG TABLET GT SCH (08:57)
[2016-12-05] MEDS: LACTOBACILLUS RHAMNOSUS GG 1 EACH CAP.SPRINK GT SCH (08:57)
[2016-12-05] MEDS: OMEGA GT SCH ×3 (08:57→17:00)
[2016-12-05] MEDS: LEVETIRACETAM SOL (5 ML) 100 MG/ML UDC GT SCH ×2 (08:58→21:25)
[2016-12-05] MEDS: PROSOURCE / PROSTAT (PYXIS) 30 ML UDC GT SCH ×2 (08:58→17:00)
[2016-12-05] MEDS: LABETALOL HCL (100MG) 100 MG TABLET GT SCH ×2 (08:58→21:25)
[2016-12-05] MEDS: HYDROCORTISONE 1% CREAM 30 GM TUBE TP SCH ×2 (09:00→21:26)
[2016-12-05] MEDS: COD LIVER OIL/ZINC OXIDE 120 GM TUBE TP SCH ×4 (09:00→21:26)
[2016-12-05] MEDS: HYDROCORTISONE 1% CREAM 28.35 GM TUBE TP SCH ×6 (09:00→21:26)
[2016-12-05] MEDS: HYDROGEN PEROXIDE 480 ML BOTTLE TP SCH ×2 (09:00→21:26)
[2016-12-05] MEDS: ZINC OXIDE 30 GM TUBE TP SCH ×2 (09:00→21:26)
[2016-12-05] MEDS: HYDROGEL DRESSING 90 GM TUBE TP SCH ×2 (09:00→21:25)
[2016-12-05] MEDS: CHOLESTYRAMINE/ASPARTAME 4 G/PKT PACKET GT SCH (12:00)
--- NOTE | 2016-12-05 13:00 | NUR ---
Pt was seen by TERESA Smith. Relayed lab results to her. No new order.
[2016-12-05] MEDS: INSULIN REGULAR, HUMAN 100 UNIT/ML 3 ML VIAL SQ PRN (18:27)
[2016-12-05] MEDS: MULTIVIT, IRON, MIN NO. 8, FA 1 TAB GT SCH (21:25)
[2016-12-05] MEDS: ASCORBIC ACID 500 MG TABLET GT SCH (21:25)
[2016-12-05] MEDS: VALSARTAN 80 MG TABLET GT SCH (21:28)
[2016-12-06] VITALS (7 sets, daily range): BP systolic 109–139; BP diastolic 49–76
[2016-12-06] MEDS: IPRATROPIUM NEB FS 0.5 MG/2.5 ML AMPUL.NEB IH SCH ×4 (02:13→19:50)
[2016-12-06] MEDS: ALBUTEROL FS 2.5 MG/3 ML VIAL.NEB NEB SCH ×4 (02:13→19:50)
[2016-12-06] MEDS: PANTOPRAZOLE 40 MG/PACK PACK GT SCH (05:49)
[2016-12-06] MEDS: LEVOTHYROXINE SODIUM 88 MCG TABLET GT SCH (05:49)
[2016-12-06] MEDS: BLOOD SUGAR DIAGNOSTIC 1 EACH STRIP IN SCH ×2 (05:49→17:47)
[2016-12-06 06:55] LABS: CALCIUM, SERUM 8.9 mg/dL (8.5-10.1); CARBON DIOXIDE 32 mmol/L (21-32); CHLORIDE 100 mmol/L (98-107); CREATININE 0.7 mg/dL (0.6-1.3); GLUCOSE 118 mg/dL (74-106); POTASSIUM 4.4 mmol/L (3.5-5.1); SODIUM SERUM 137 mmol/L (136-145); UREA NITROGEN, BLOOD 19 mg/dL (7-18)
[2016-12-06] MEDS: COD LIVER OIL/ZINC OXIDE 120 GM TUBE TP SCH ×4 (09:19→20:58)
[2016-12-06] MEDS: PROSOURCE / PROSTAT (PYXIS) 30 ML UDC GT SCH ×2 (09:19→17:47)
[2016-12-06] MEDS: LABETALOL HCL (100MG) 100 MG TABLET GT SCH ×2 (09:19→20:54)
[2016-12-06] MEDS: OMEGA GT SCH ×3 (09:19→17:47)
[2016-12-06] MEDS: HYDROCORTISONE 1% CREAM 28.35 GM TUBE TP SCH ×6 (09:19→20:58)
[2016-12-06] MEDS: HYDROGEL DRESSING 90 GM TUBE TP SCH ×2 (09:19→21:23)
[2016-12-06] MEDS: LEVETIRACETAM SOL (5 ML) 100 MG/ML UDC GT SCH ×2 (09:19→20:54)
[2016-12-06] MEDS: CARBOXYMETHYLCELLULOSE SODIUM 0.4 ML DROPERETTE EACHEYE SCH (09:19)
[2016-12-06] MEDS: LACTOBACILLUS RHAMNOSUS GG 1 EACH CAP.SPRINK GT SCH (09:19)
[2016-12-06] MEDS: LORATADINE 10 MG TABLET GT SCH (09:19)
[2016-12-06] MEDS: ZINC OXIDE 30 GM TUBE TP SCH ×2 (09:20→20:58)
[2016-12-06] MEDS: HYDROCORTISONE 1% CREAM 30 GM TUBE TP SCH ×2 (09:20→20:58)
[2016-12-06] MEDS: HYDROGEN PEROXIDE 480 ML BOTTLE TP SCH ×2 (09:20→20:58)
[2016-12-06] MEDS: CHOLESTYRAMINE/ASPARTAME 4 G/PKT PACKET GT SCH (12:00)
[2016-12-06] MEDS: AMIKACIN 350 MG in IV D5W 100 ML IV SCH (13:00)
[2016-12-06] MEDS: ASCORBIC ACID 500 MG TABLET GT SCH (20:55)
[2016-12-06] MEDS: MULTIVIT, IRON, MIN NO. 8, FA 1 TAB GT SCH (20:55)
[2016-12-06] MEDS: VALSARTAN 80 MG TABLET GT SCH (22:00)
[2016-12-07] VITALS (7 sets, daily range): BP systolic 115–130; BP diastolic 50–69
[2016-12-07] MEDS: ALBUTEROL FS 2.5 MG/3 ML VIAL.NEB NEB SCH ×4 (01:30→19:53)
[2016-12-07] MEDS: IPRATROPIUM NEB FS 0.5 MG/2.5 ML AMPUL.NEB IH SCH ×4 (01:30→19:53)
[2016-12-07] MEDS: PANTOPRAZOLE 40 MG/PACK PACK GT SCH (05:55)
[2016-12-07] MEDS: LEVOTHYROXINE SODIUM 88 MCG TABLET GT SCH (05:55)
[2016-12-07] MEDS: BLOOD SUGAR DIAGNOSTIC 1 EACH STRIP IN SCH ×2 (06:03→18:16)
[2016-12-07] MEDS: GLYTROL 1,000 ML BAG GT PRN (06:13)
[2016-12-07 07:53] LABS: CALCIUM, SERUM 8.3 mg/dL (8.5-10.1); CARBON DIOXIDE 32 mmol/L (21-32); CHLORIDE 99 mmol/L (98-107); CREATININE 0.7 mg/dL (0.6-1.3); GLUCOSE 95 mg/dL (74-106); POTASSIUM 4.4 mmol/L (3.5-5.1); SODIUM SERUM 135 mmol/L (136-145); UREA NITROGEN, BLOOD 15 mg/dL (7-18)
[2016-12-07] MEDS: AMIKACIN 350 MG in IV D5W 100 ML IV SCH (08:03)
[2016-12-07] MEDS: CARBOXYMETHYLCELLULOSE SODIUM 0.4 ML DROPERETTE EACHEYE SCH (08:55)
[2016-12-07] MEDS: LORATADINE 10 MG TABLET GT SCH (08:55)
[2016-12-07] MEDS: OMEGA GT SCH ×3 (08:57→17:31)
[2016-12-07] MEDS: PROSOURCE / PROSTAT (PYXIS) 30 ML UDC GT SCH ×2 (08:57→17:31)
[2016-12-07] MEDS: LABETALOL HCL (100MG) 100 MG TABLET GT SCH ×2 (08:57→21:10)
[2016-12-07] MEDS: hydrALAZINE HCL 10 MG TABLET GT PRN ×3 (08:58→17:33)
[2016-12-07] MEDS: COD LIVER OIL/ZINC OXIDE 120 GM TUBE TP SCH ×4 (09:02→21:10)
[2016-12-07] MEDS: LACTOBACILLUS RHAMNOSUS GG 1 EACH CAP.SPRINK GT SCH (09:02)
[2016-12-07] MEDS: HYDROGEL DRESSING 90 GM TUBE TP SCH ×2 (09:02→21:10)
[2016-12-07] MEDS: LEVETIRACETAM SOL (5 ML) 100 MG/ML UDC GT SCH ×2 (09:02→21:09)
[2016-12-07] MEDS: HYDROCORTISONE 1% CREAM 30 GM TUBE TP SCH ×2 (09:03→21:11)
[2016-12-07] MEDS: ZINC OXIDE 30 GM TUBE TP SCH (09:03)
[2016-12-07] MEDS: HYDROCORTISONE 1% CREAM 28.35 GM TUBE TP SCH ×6 (09:03→21:11)
[2016-12-07] MEDS: HYDROGEN PEROXIDE 480 ML BOTTLE TP SCH ×2 (09:03→21:11)
--- NOTE | 2016-12-07 10:15 | NUR ---
Obtain order from TERESA Hoffmann ID for Amikacin, total of 7 days. Orders noted and carried out.
[2016-12-07] MEDS: CHOLESTYRAMINE/ASPARTAME 4 G/PKT PACKET GT SCH (12:14)
--- NOTE | 2016-12-07 12:15 | NUR ---
Seen and examined by Luis Hudson NP, for Dr. Monet no new order given at this time.
[2016-12-07] MEDS: INSULIN REGULAR, HUMAN 100 UNIT/ML 3 ML VIAL SQ PRN (18:16)
[2016-12-07] MEDS: MULTIVIT, IRON, MIN NO. 8, FA 1 TAB GT SCH (21:09)
[2016-12-07] MEDS: ASCORBIC ACID 500 MG TABLET GT SCH (21:10)
[2016-12-07] MEDS: VALSARTAN 80 MG TABLET GT SCH (22:25)
[2016-12-08] VITALS (7 sets, daily range): BP systolic 109–125; BP diastolic 60–71
[2016-12-08] MEDS: GLYTROL 1,000 ML BAG GT PRN (01:29)
[2016-12-08] MEDS: AMIKACIN 350 MG in IV D5W 100 ML IV SCH ×2 (02:03→20:20)
[2016-12-08] MEDS: ALBUTEROL FS 2.5 MG/3 ML VIAL.NEB NEB SCH ×4 (02:26→19:25)
[2016-12-08] MEDS: IPRATROPIUM NEB FS 0.5 MG/2.5 ML AMPUL.NEB IH SCH ×4 (02:26→19:25)
[2016-12-08] MEDS: LEVOTHYROXINE SODIUM 88 MCG TABLET GT SCH (05:25)
[2016-12-08] MEDS: BLOOD SUGAR DIAGNOSTIC 1 EACH STRIP IN SCH ×2 (05:25→17:15)
[2016-12-08] MEDS: PANTOPRAZOLE 40 MG/PACK PACK GT SCH (05:25)
[2016-12-08] MEDS: INSULIN REGULAR, HUMAN 100 UNIT/ML 3 ML VIAL SQ PRN ×2 (05:27→17:57)
[2016-12-08 07:31] LABS: CALCIUM, SERUM 8.7 mg/dL (8.5-10.1); CARBON DIOXIDE 30 mmol/L (21-32); CHLORIDE 95 mmol/L (98-107); CREATININE 0.8 mg/dL (0.6-1.3); GLUCOSE 143 mg/dL (74-106); POTASSIUM 4.2 mmol/L (3.5-5.1); SODIUM SERUM 133 mmol/L (136-145); UREA NITROGEN, BLOOD 15 mg/dL (7-18)
[2016-12-08] MEDS: LACTOBACILLUS RHAMNOSUS GG 1 EACH CAP.SPRINK GT SCH (09:00)
[2016-12-08] MEDS: PROSOURCE / PROSTAT (PYXIS) 30 ML UDC GT SCH ×2 (09:00→17:15)
[2016-12-08] MEDS: LORATADINE 10 MG TABLET GT SCH (09:00)
[2016-12-08] MEDS: LEVETIRACETAM SOL (5 ML) 100 MG/ML UDC GT SCH ×2 (09:00→20:44)
[2016-12-08] MEDS: CARBOXYMETHYLCELLULOSE SODIUM 0.4 ML DROPERETTE EACHEYE SCH (09:00)
[2016-12-08] MEDS: OMEGA GT SCH ×3 (09:00→17:15)
[2016-12-08] MEDS: LABETALOL HCL (100MG) 100 MG TABLET GT SCH ×2 (09:00→20:44)
[2016-12-08] MEDS: HYDROCORTISONE 1% CREAM 28.35 GM TUBE TP SCH ×6 (09:53→20:45)
[2016-12-08] MEDS: COD LIVER OIL/ZINC OXIDE 120 GM TUBE TP SCH ×4 (09:53→20:44)
[2016-12-08] MEDS: HYDROGEN PEROXIDE 480 ML BOTTLE TP SCH ×2 (09:54→20:45)
[2016-12-08] MEDS: HYDROGEL DRESSING 90 GM TUBE TP SCH ×2 (09:54→20:44)
[2016-12-08] MEDS: HYDROCORTISONE 1% CREAM 30 GM TUBE TP SCH ×2 (09:54→20:45)
--- NOTE | 2016-12-08 10:20 | NUR ---
RT MONTHLY TRACH CHANGE DONE. NEW SHILEY [address] TRACH CHANGE DONE WITH NO COMPLICATIONS. EQUAL BILATERAL BREATH SOUNDS AND CHEST RISE. PT PLACED BACK ON COOL AEROSOL. NO RESPIRATORY DISTRESS NOTED AT THIS TIME, WILL CONTINUE TO MONITOR. Addendum: 12/08/16 at 1159 by LIDYA POPE RT Amended: Links added.
[2016-12-08] MEDS: CHOLESTYRAMINE/ASPARTAME 4 G/PKT PACKET GT SCH (12:00)
[2016-12-08] MEDS: ASCORBIC ACID 500 MG TABLET GT SCH (20:44)
[2016-12-08] MEDS: MULTIVIT, IRON, MIN NO. 8, FA 1 TAB GT SCH (20:44)
[2016-12-08] MEDS: VALSARTAN 80 MG TABLET GT SCH (22:00)
[2016-12-09] VITALS (8 sets, daily range): BP systolic 102–116; BP diastolic 60–78
[2016-12-09] MEDS: ALBUTEROL FS 2.5 MG/3 ML VIAL.NEB NEB SCH ×4 (02:19→19:38)
[2016-12-09] MEDS: IPRATROPIUM NEB FS 0.5 MG/2.5 ML AMPUL.NEB IH SCH ×4 (02:19→19:38)
[2016-12-09] MEDS: PANTOPRAZOLE 40 MG/PACK PACK GT SCH (06:35)
[2016-12-09] MEDS: LEVOTHYROXINE SODIUM 88 MCG TABLET GT SCH (06:35)
[2016-12-09] MEDS: INSULIN REGULAR, HUMAN 100 UNIT/ML 3 ML VIAL SQ PRN (06:35)
[2016-12-09] MEDS: BLOOD SUGAR DIAGNOSTIC 1 EACH STRIP IN SCH ×2 (06:35→17:52)
[2016-12-09 06:40] LABS: CALCIUM, SERUM 8.8 mg/dL (8.5-10.1); CARBON DIOXIDE 31 mmol/L (21-32); CHLORIDE 99 mmol/L (98-107); CREATININE 0.8 mg/dL (0.6-1.3); GLUCOSE 113 mg/dL (74-106); SODIUM SERUM 137 mmol/L (136-145); UREA NITROGEN, BLOOD 21 mg/dL (7-18)
[2016-12-09] MEDS: LABETALOL HCL (100MG) 100 MG TABLET GT SCH ×2 (09:00→20:33)
[2016-12-09] MEDS: LORATADINE 10 MG TABLET GT SCH (09:30)
[2016-12-09] MEDS: CARBOXYMETHYLCELLULOSE SODIUM 0.4 ML DROPERETTE EACHEYE SCH (09:31)
[2016-12-09] MEDS: LACTOBACILLUS RHAMNOSUS GG 1 EACH CAP.SPRINK GT SCH (09:31)
[2016-12-09] MEDS: LEVETIRACETAM SOL (5 ML) 100 MG/ML UDC GT SCH ×2 (09:35→20:33)
[2016-12-09] MEDS: OMEGA GT SCH ×3 (09:35→17:17)
[2016-12-09] MEDS: PROSOURCE / PROSTAT (PYXIS) 30 ML UDC GT SCH ×2 (09:35→17:17)
[2016-12-09] MEDS: COD LIVER OIL/ZINC OXIDE 120 GM TUBE TP SCH ×4 (09:36→20:35)
[2016-12-09] MEDS: HYDROGEN PEROXIDE 480 ML BOTTLE TP SCH ×2 (09:36→20:36)
[2016-12-09] MEDS: HYDROCORTISONE 1% CREAM 30 GM TUBE TP SCH ×2 (09:36→20:35)
[2016-12-09] MEDS: HYDROCORTISONE 1% CREAM 28.35 GM TUBE TP SCH ×6 (09:36→20:35)
[2016-12-09] MEDS: HYDROGEL DRESSING 90 GM TUBE TP SCH ×2 (09:36→20:35)
[2016-12-09] MEDS: CHOLESTYRAMINE/ASPARTAME 4 G/PKT PACKET GT SCH (12:37)
[2016-12-09] MEDS: AMIKACIN 350 MG in IV D5W 100 ML IV SCH (14:02)
[2016-12-09] MEDS: MULTIVIT, IRON, MIN NO. 8, FA 1 TAB GT SCH (20:33)
[2016-12-09] MEDS: ASCORBIC ACID 500 MG TABLET GT SCH (20:34)
[2016-12-09] MEDS: VALSARTAN 80 MG TABLET GT SCH (22:00)
[2016-12-10] VITALS (9 sets, daily range): BP systolic 106–130; BP diastolic 55–66
[2016-12-10] MEDS: ALBUTEROL FS 2.5 MG/3 ML VIAL.NEB NEB SCH ×4 (01:45→19:59)
[2016-12-10] MEDS: IPRATROPIUM NEB FS 0.5 MG/2.5 ML AMPUL.NEB IH SCH ×4 (01:45→19:59)
[2016-12-10] MEDS: LEVOTHYROXINE SODIUM 88 MCG TABLET GT SCH (05:46)
[2016-12-10] MEDS: GLYTROL 1,000 ML BAG GT PRN (05:46)
[2016-12-10] MEDS: PANTOPRAZOLE 40 MG/PACK PACK GT SCH (05:46)
[2016-12-10] MEDS: BLOOD SUGAR DIAGNOSTIC 1 EACH STRIP IN SCH ×2 (05:51→17:11)
[2016-12-10] MEDS: INSULIN REGULAR, HUMAN 100 UNIT/ML 3 ML VIAL SQ PRN ×2 (05:52→17:42)
[2016-12-10] MEDS: CARBOXYMETHYLCELLULOSE SODIUM 0.4 ML DROPERETTE EACHEYE SCH (08:27)
[2016-12-10] MEDS: hydrALAZINE HCL 10 MG TABLET GT PRN ×3 (08:27→17:41)
[2016-12-10] MEDS: LABETALOL HCL (100MG) 100 MG TABLET GT SCH ×2 (09:00→20:37)
[2016-12-10] MEDS: HYDROGEN PEROXIDE 480 ML BOTTLE TP SCH ×2 (09:00→20:37)
[2016-12-10] MEDS: HYDROCORTISONE 1% CREAM 28.35 GM TUBE TP SCH ×6 (09:00→20:37)
[2016-12-10] MEDS: COD LIVER OIL/ZINC OXIDE 120 GM TUBE TP SCH ×4 (09:00→20:37)
[2016-12-10] MEDS: HYDROCORTISONE 1% CREAM 30 GM TUBE TP SCH ×2 (09:00→20:37)
[2016-12-10] MEDS: HYDROGEL DRESSING 90 GM TUBE TP SCH ×2 (09:00→20:37)
[2016-12-10 09:04] LABS: CALCIUM, SERUM 8.7 mg/dL (8.5-10.1); CARBON DIOXIDE 29 mmol/L (21-32); CHLORIDE 101 mmol/L (98-107); CREATININE 0.8 mg/dL (0.6-1.3); GLUCOSE 122 mg/dL (74-106); POTASSIUM 4.3 mmol/L (3.5-5.1); SODIUM SERUM 137 mmol/L (136-145); UREA NITROGEN, BLOOD 18 mg/dL (7-18)
[2016-12-10] MEDS: LACTOBACILLUS RHAMNOSUS GG 1 EACH CAP.SPRINK GT SCH (09:58)
[2016-12-10] MEDS: PROSOURCE / PROSTAT (PYXIS) 30 ML UDC GT SCH ×2 (09:58→17:11)
[2016-12-10] MEDS: OMEGA GT SCH ×3 (09:58→17:11)
[2016-12-10] MEDS: LORATADINE 10 MG TABLET GT SCH (09:58)
[2016-12-10] MEDS: LEVETIRACETAM SOL (5 ML) 100 MG/ML UDC GT SCH ×2 (09:58→20:36)
[2016-12-10] MEDS: CHOLESTYRAMINE/ASPARTAME 4 G/PKT PACKET GT SCH (12:25)
--- NOTE | 2016-12-10 16:00 | NUR ---
Notified Reyna Galindo, daughter, of room change. She said it is OK. Resident moved to Room 275-1 with RT, stable, no s/s of distress, all belongings transferred.
[2016-12-10] MEDS: ASCORBIC ACID 500 MG TABLET GT SCH (20:37)
[2016-12-10] MEDS: MULTIVIT, IRON, MIN NO. 8, FA 1 TAB GT SCH (20:37)
[2016-12-10] MEDS: VALSARTAN 80 MG TABLET GT SCH (21:27)
[2016-12-11] VITALS (7 sets, daily range): BP systolic 95–128; BP diastolic 50–77
[2016-12-11] MEDS: IPRATROPIUM NEB FS 0.5 MG/2.5 ML AMPUL.NEB IH SCH ×4 (02:16→19:37)
[2016-12-11] MEDS: ALBUTEROL FS 2.5 MG/3 ML VIAL.NEB NEB SCH ×4 (02:16→19:37)
[2016-12-11] MEDS: PANTOPRAZOLE 40 MG/PACK PACK GT SCH (05:36)
[2016-12-11] MEDS: LEVOTHYROXINE SODIUM 88 MCG TABLET GT SCH (05:36)
[2016-12-11] MEDS: BLOOD SUGAR DIAGNOSTIC 1 EACH STRIP IN SCH ×2 (05:37→17:19)
[2016-12-11] MEDS: GLYTROL 1,000 ML BAG GT PRN (05:37)
[2016-12-11] MEDS: INSULIN REGULAR, HUMAN 100 UNIT/ML 3 ML VIAL SQ PRN (05:37)
[2016-12-11 07:11] LABS: CALCIUM, SERUM 8.8 mg/dL (8.5-10.1); CARBON DIOXIDE 30 mmol/L (21-32); CHLORIDE 99 mmol/L (98-107); CREATININE 0.7 mg/dL (0.6-1.3); GLUCOSE 110 mg/dL (74-106); POTASSIUM 4.3 mmol/L (3.5-5.1); SODIUM SERUM 136 mmol/L (136-145); UREA NITROGEN, BLOOD 20 mg/dL (7-18)
[2016-12-11] MEDS: LACTOBACILLUS RHAMNOSUS GG 1 EACH CAP.SPRINK GT SCH (08:28)
[2016-12-11] MEDS: LORATADINE 10 MG TABLET GT SCH (08:28)
[2016-12-11] MEDS: LABETALOL HCL (100MG) 100 MG TABLET GT SCH ×2 (08:28→21:00)
[2016-12-11] MEDS: OMEGA GT SCH ×3 (08:28→17:19)
[2016-12-11] MEDS: PROSOURCE / PROSTAT (PYXIS) 30 ML UDC GT SCH ×2 (08:28→17:19)
[2016-12-11] MEDS: LEVETIRACETAM SOL (5 ML) 100 MG/ML UDC GT SCH ×2 (08:28→21:47)
[2016-12-11] MEDS: CARBOXYMETHYLCELLULOSE SODIUM 0.4 ML DROPERETTE EACHEYE SCH (08:28)
[2016-12-11] MEDS: HYDROGEL DRESSING 90 GM TUBE TP SCH ×2 (08:29→21:47)
[2016-12-11] MEDS: HYDROCORTISONE 1% CREAM 30 GM TUBE TP SCH ×2 (08:29→21:48)
[2016-12-11] MEDS: COD LIVER OIL/ZINC OXIDE 120 GM TUBE TP SCH ×4 (08:29→21:48)
[2016-12-11] MEDS: HYDROCORTISONE 1% CREAM 28.35 GM TUBE TP SCH ×6 (08:29→21:48)
[2016-12-11] MEDS: HYDROGEN PEROXIDE 480 ML BOTTLE TP SCH ×2 (08:30→21:48)
[2016-12-11] MEDS: CHOLESTYRAMINE/ASPARTAME 4 G/PKT PACKET GT SCH (12:00)
[2016-12-11] MEDS: MULTIVIT, IRON, MIN NO. 8, FA 1 TAB GT SCH (21:47)
[2016-12-11] MEDS: ASCORBIC ACID 500 MG TABLET GT SCH (21:47)
[2016-12-11] MEDS: VALSARTAN 80 MG TABLET GT SCH (21:48)
[2016-12-12 01:00] VITALS: BP 100/50
[2016-12-12] MEDS: IPRATROPIUM NEB FS 0.5 MG/2.5 ML AMPUL.NEB IH SCH ×4 (01:17→19:30)
[2016-12-12] MEDS: ALBUTEROL FS 2.5 MG/3 ML VIAL.NEB NEB SCH ×4 (01:17→19:30)
[2016-12-12] MEDS: GLYTROL 1,000 ML BAG GT PRN ×2 (03:51→22:40)
[2016-12-12 05:00] VITALS: BP 100/50
[2016-12-12] MEDS: LEVOTHYROXINE SODIUM 88 MCG TABLET GT SCH (05:29)
[2016-12-12] MEDS: BLOOD SUGAR DIAGNOSTIC 1 EACH STRIP IN SCH ×2 (05:29→17:46)
[2016-12-12] MEDS: PANTOPRAZOLE 40 MG/PACK PACK GT SCH (05:29)
[2016-12-12] MEDS: INSULIN REGULAR, HUMAN 100 UNIT/ML 3 ML VIAL SQ PRN ×2 (05:31→17:50)
[2016-12-12 06:45] LABS: CALCIUM, SERUM 8.9 mg/dL (8.5-10.1); CARBON DIOXIDE 30 mmol/L (21-32); CHLORIDE 100 mmol/L (98-107); CREATININE 0.8 mg/dL (0.6-1.3); GLUCOSE 128 mg/dL (74-106); POTASSIUM 4.2 mmol/L (3.5-5.1); SODIUM SERUM 137 mmol/L (136-145); UREA NITROGEN, BLOOD 22 mg/dL (7-18)
[2016-12-12] MEDS: CARBOXYMETHYLCELLULOSE SODIUM 0.4 ML DROPERETTE EACHEYE SCH (08:20)
[2016-12-12] MEDS: LORATADINE 10 MG TABLET GT SCH (08:22)
[2016-12-12] MEDS: OMEGA GT SCH ×3 (08:22→17:46)
[2016-12-12] MEDS: LABETALOL HCL (100MG) 100 MG TABLET GT SCH ×2 (08:22→20:51)
[2016-12-12] MEDS: PROSOURCE / PROSTAT (PYXIS) 30 ML UDC GT SCH ×2 (08:22→17:46)
[2016-12-12] MEDS: LEVETIRACETAM SOL (5 ML) 100 MG/ML UDC GT SCH ×2 (08:22→20:51)
[2016-12-12] MEDS: LACTOBACILLUS RHAMNOSUS GG 1 EACH CAP.SPRINK GT SCH (08:22)
[2016-12-12] MEDS: COD LIVER OIL/ZINC OXIDE 120 GM TUBE TP SCH ×4 (08:23→20:51)
[2016-12-12] MEDS: HYDROGEN PEROXIDE 480 ML BOTTLE TP SCH ×2 (08:23→20:52)
[2016-12-12] MEDS: HYDROCORTISONE 1% CREAM 30 GM TUBE TP SCH ×2 (08:23→20:52)
[2016-12-12] MEDS: HYDROGEL DRESSING 90 GM TUBE TP SCH ×2 (08:23→20:54)
[2016-12-12] MEDS: HYDROCORTISONE 1% CREAM 28.35 GM TUBE TP SCH ×6 (08:23→20:52)
[2016-12-12] MEDS: CHOLESTYRAMINE/ASPARTAME 4 G/PKT PACKET GT SCH (12:00)
[2016-12-12 12:47] VITALS: BP 115/61
[2016-12-12 19:01] VITALS: BP 115/61
[2016-12-12 20:33] VITALS: BP 102/61
[2016-12-12] MEDS: MULTIVIT, IRON, MIN NO. 8, FA 1 TAB GT SCH (20:51)
[2016-12-12] MEDS: ASCORBIC ACID 500 MG TABLET GT SCH (20:51)
[2016-12-12 21:23] VITALS: BP 102/61
[2016-12-12] MEDS: VALSARTAN 80 MG TABLET GT SCH (21:25)
[2016-12-13] VITALS (7 sets, daily range): BP systolic 104–122; BP diastolic 57–66
[2016-12-13] MEDS: ALBUTEROL FS 2.5 MG/3 ML VIAL.NEB NEB SCH ×4 (01:54→20:00)
[2016-12-13] MEDS: IPRATROPIUM NEB FS 0.5 MG/2.5 ML AMPUL.NEB IH SCH ×4 (01:54→20:00)
[2016-12-13] MEDS: LEVOTHYROXINE SODIUM 88 MCG TABLET GT SCH (06:02)
[2016-12-13] MEDS: PANTOPRAZOLE 40 MG/PACK PACK GT SCH (06:02)
[2016-12-13] MEDS: BLOOD SUGAR DIAGNOSTIC 1 EACH STRIP IN SCH ×2 (06:15→17:25)
[2016-12-13 07:17] LABS: CALCIUM, SERUM 8.6 mg/dL (8.5-10.1); CARBON DIOXIDE 31 mmol/L (21-32); CHLORIDE 99 mmol/L (98-107); CREATININE 0.9 mg/dL (0.6-1.3); GLUCOSE 109 mg/dL (74-106); POTASSIUM 4.5 mmol/L (3.5-5.1); SODIUM SERUM 137 mmol/L (136-145); UREA NITROGEN, BLOOD 23 mg/dL (7-18)
[2016-12-13] MEDS: LORATADINE 10 MG TABLET GT SCH (08:10)
[2016-12-13] MEDS: LACTOBACILLUS RHAMNOSUS GG 1 EACH CAP.SPRINK GT SCH (08:11)
[2016-12-13] MEDS: OMEGA GT SCH ×3 (08:12→16:06)
[2016-12-13] MEDS: LEVETIRACETAM SOL (5 ML) 100 MG/ML UDC GT SCH ×2 (08:12→21:31)
[2016-12-13] MEDS: CARBOXYMETHYLCELLULOSE SODIUM 0.4 ML DROPERETTE EACHEYE SCH (08:12)
[2016-12-13] MEDS: PROSOURCE / PROSTAT (PYXIS) 30 ML UDC GT SCH ×2 (08:13→16:06)
[2016-12-13] MEDS: LABETALOL HCL (100MG) 100 MG TABLET GT SCH ×2 (08:20→21:31)
[2016-12-13] MEDS: HYDROGEL DRESSING 90 GM TUBE TP SCH (10:30)
[2016-12-13] MEDS: HYDROCORTISONE 1% CREAM 30 GM TUBE TP SCH ×2 (10:30→21:32)
[2016-12-13] MEDS: COD LIVER OIL/ZINC OXIDE 120 GM TUBE TP SCH ×4 (10:30→21:31)
[2016-12-13] MEDS: HYDROGEN PEROXIDE 480 ML BOTTLE TP SCH ×2 (10:30→21:32)
[2016-12-13] MEDS: HYDROCORTISONE 1% CREAM 28.35 GM TUBE TP SCH ×6 (10:30→21:31)
[2016-12-13] MEDS: CHOLESTYRAMINE/ASPARTAME 4 G/PKT PACKET GT SCH (12:53)
[2016-12-13] MEDS: ASCORBIC ACID 500 MG TABLET GT SCH (21:31)
[2016-12-13] MEDS: MULTIVIT, IRON, MIN NO. 8, FA 1 TAB GT SCH (21:31)
[2016-12-13] MEDS: VALSARTAN 80 MG TABLET GT SCH (21:32)
[2016-12-13] MEDS: GLYTROL 1,000 ML BAG GT PRN (21:47)
[2016-12-14] VITALS (8 sets, daily range): BP systolic 106–126; BP diastolic 58–70
[2016-12-14] MEDS: ALBUTEROL FS 2.5 MG/3 ML VIAL.NEB NEB SCH ×4 (01:34→19:21)
[2016-12-14] MEDS: IPRATROPIUM NEB FS 0.5 MG/2.5 ML AMPUL.NEB IH SCH ×4 (01:34→19:21)
[2016-12-14] MEDS: PANTOPRAZOLE 40 MG/PACK PACK GT SCH (06:07)
[2016-12-14] MEDS: LEVOTHYROXINE SODIUM 88 MCG TABLET GT SCH (06:08)
[2016-12-14] MEDS: BLOOD SUGAR DIAGNOSTIC 1 EACH STRIP IN SCH ×2 (06:27→17:37)
[2016-12-14 06:52] LABS: CALCIUM, SERUM 8.6 mg/dL (8.5-10.1); CARBON DIOXIDE 31 mmol/L (21-32); CHLORIDE 100 mmol/L (98-107); CREATININE 0.8 mg/dL (0.6-1.3); GLUCOSE 138 mg/dL (74-106); POTASSIUM 4.4 mmol/L (3.5-5.1); SODIUM SERUM 137 mmol/L (136-145); UREA NITROGEN, BLOOD 23 mg/dL (7-18)
[2016-12-14] MEDS: OMEGA GT SCH ×3 (08:53→17:37)
[2016-12-14] MEDS: PROSOURCE / PROSTAT (PYXIS) 30 ML UDC GT SCH ×2 (08:53→17:37)
[2016-12-14] MEDS: HYDROCORTISONE 1% CREAM 30 GM TUBE TP SCH ×2 (08:53→20:28)
[2016-12-14] MEDS: COD LIVER OIL/ZINC OXIDE 120 GM TUBE TP SCH ×7 (08:53→21:49)
[2016-12-14] MEDS: LACTOBACILLUS RHAMNOSUS GG 1 EACH CAP.SPRINK GT SCH (08:53)
[2016-12-14] MEDS: CARBOXYMETHYLCELLULOSE SODIUM 0.4 ML DROPERETTE EACHEYE SCH (08:53)
[2016-12-14] MEDS: LORATADINE 10 MG TABLET GT SCH (08:53)
[2016-12-14] MEDS: LABETALOL HCL (100MG) 100 MG TABLET GT SCH ×2 (08:53→20:27)
[2016-12-14] MEDS: LEVETIRACETAM SOL (5 ML) 100 MG/ML UDC GT SCH ×2 (08:53→20:27)
[2016-12-14] MEDS: HYDROCORTISONE 1% CREAM 28.35 GM TUBE TP SCH ×6 (08:53→20:28)
[2016-12-14] MEDS: hydrALAZINE HCL 10 MG TABLET GT PRN ×2 (08:54→17:37)
[2016-12-14] MEDS: HYDROGEN PEROXIDE 480 ML BOTTLE TP SCH ×2 (08:54→20:28)
[2016-12-14] MEDS: CHOLESTYRAMINE/ASPARTAME 4 G/PKT PACKET GT SCH (11:54)
[2016-12-14] MEDS: GLYTROL 1,000 ML BAG GT PRN (17:38)
[2016-12-14] MEDS: INSULIN REGULAR, HUMAN 100 UNIT/ML 3 ML VIAL SQ PRN (17:48)
[2016-12-14] MEDS: MULTIVIT, IRON, MIN NO. 8, FA 1 TAB GT SCH (20:27)
[2016-12-14] MEDS: ASCORBIC ACID 500 MG TABLET GT SCH (20:27)
[2016-12-14] MEDS: CLOTRIMAZOLE 1% 15 GM TUBE TP SCH (21:11)
[2016-12-14] MEDS: VALSARTAN 80 MG TABLET GT SCH (22:00)
[2016-12-15] VITALS (7 sets, daily range): BP systolic 106–126; BP diastolic 54–81
[2016-12-15] MEDS: ALBUTEROL FS 2.5 MG/3 ML VIAL.NEB NEB SCH ×4 (01:30→20:03)
[2016-12-15] MEDS: IPRATROPIUM NEB FS 0.5 MG/2.5 ML AMPUL.NEB IH SCH ×4 (01:30→20:03)
[2016-12-15] MEDS: PANTOPRAZOLE 40 MG/PACK PACK GT SCH (05:42)
[2016-12-15] MEDS: LEVOTHYROXINE SODIUM 88 MCG TABLET GT SCH (05:42)
[2016-12-15] MEDS: INSULIN REGULAR, HUMAN 100 UNIT/ML 3 ML VIAL SQ PRN (05:43)
[2016-12-15] MEDS: BLOOD SUGAR DIAGNOSTIC 1 EACH STRIP IN SCH ×2 (05:43→17:37)
[2016-12-15] MEDS: LEVETIRACETAM SOL (5 ML) 100 MG/ML UDC GT SCH ×2 (09:08→21:19)
[2016-12-15] MEDS: LACTOBACILLUS RHAMNOSUS GG 1 EACH CAP.SPRINK GT SCH (09:08)
[2016-12-15] MEDS: LORATADINE 10 MG TABLET GT SCH (09:08)
[2016-12-15] MEDS: OMEGA GT SCH ×3 (09:08→17:11)
[2016-12-15] MEDS: PROSOURCE / PROSTAT (PYXIS) 30 ML UDC GT SCH ×2 (09:08→17:11)
[2016-12-15] MEDS: CARBOXYMETHYLCELLULOSE SODIUM 0.4 ML DROPERETTE EACHEYE SCH (09:08)
[2016-12-15] MEDS: HYDROCORTISONE 1% CREAM 30 GM TUBE TP SCH ×2 (09:09→21:20)
[2016-12-15] MEDS: HYDROGEN PEROXIDE 480 ML BOTTLE TP SCH ×2 (09:09→21:21)
[2016-12-15] MEDS: COD LIVER OIL/ZINC OXIDE 120 GM TUBE TP SCH ×4 (09:09→21:20)
[2016-12-15] MEDS: HYDROCORTISONE 1% CREAM 28.35 GM TUBE TP SCH ×6 (09:09→21:20)
[2016-12-15] MEDS: LABETALOL HCL (100MG) 100 MG TABLET GT SCH ×2 (09:09→21:00)
[2016-12-15] MEDS: CLOTRIMAZOLE 1% 15 GM TUBE TP SCH ×2 (09:10→21:21)
[2016-12-15] MEDS: CHOLESTYRAMINE/ASPARTAME 4 G/PKT PACKET GT SCH (12:35)
[2016-12-15] MEDS: MULTIVIT, IRON, MIN NO. 8, FA 1 TAB GT SCH (21:19)
[2016-12-15] MEDS: ASCORBIC ACID 500 MG TABLET GT SCH (21:20)
[2016-12-15] MEDS: VALSARTAN 80 MG TABLET GT SCH (22:46)
[2016-12-16] VITALS (7 sets, daily range): BP systolic 96–138; BP diastolic 54–78
[2016-12-16] MEDS: ALBUTEROL FS 2.5 MG/3 ML VIAL.NEB NEB SCH ×4 (01:08→19:29)
[2016-12-16] MEDS: IPRATROPIUM NEB FS 0.5 MG/2.5 ML AMPUL.NEB IH SCH ×4 (01:08→19:29)
[2016-12-16] MEDS: LEVOTHYROXINE SODIUM 88 MCG TABLET GT SCH (06:04)
[2016-12-16] MEDS: BLOOD SUGAR DIAGNOSTIC 1 EACH STRIP IN SCH ×2 (06:04→18:15)
[2016-12-16] MEDS: PANTOPRAZOLE 40 MG/PACK PACK GT SCH (06:04)
[2016-12-16] MEDS: GLYTROL 1,000 ML BAG GT PRN (06:05)
[2016-12-16] MEDS: INSULIN REGULAR, HUMAN 100 UNIT/ML 3 ML VIAL SQ PRN ×2 (06:06→18:15)
[2016-12-16] MEDS: CARBOXYMETHYLCELLULOSE SODIUM 0.4 ML DROPERETTE EACHEYE SCH (09:41)
[2016-12-16] MEDS: LORATADINE 10 MG TABLET GT SCH (09:42)
[2016-12-16] MEDS: LACTOBACILLUS RHAMNOSUS GG 1 EACH CAP.SPRINK GT SCH (09:42)
[2016-12-16] MEDS: OMEGA GT SCH ×3 (09:43→16:42)
[2016-12-16] MEDS: LABETALOL HCL (100MG) 100 MG TABLET GT SCH ×2 (09:43→21:46)
[2016-12-16] MEDS: COD LIVER OIL/ZINC OXIDE 120 GM TUBE TP SCH ×2 (09:43→21:46)
[2016-12-16] MEDS: LEVETIRACETAM SOL (5 ML) 100 MG/ML UDC GT SCH ×2 (09:43→21:45)
[2016-12-16] MEDS: PROSOURCE / PROSTAT (PYXIS) 30 ML UDC GT SCH ×2 (09:43→16:42)
[2016-12-16] MEDS: NEOMY SULF/BACITRAC ZN/POLY 15 GM TUBE TP SCH ×2 (09:44→21:47)
[2016-12-16] MEDS: CLOTRIMAZOLE 1% 15 GM TUBE TP SCH ×2 (09:44→21:47)
[2016-12-16] MEDS: HYDROCORTISONE 1% CREAM 30 GM TUBE TP SCH ×2 (09:44→21:46)
[2016-12-16] MEDS: HYDROGEN PEROXIDE 480 ML BOTTLE TP SCH ×2 (09:44→21:47)
[2016-12-16] MEDS: HYDROCORTISONE 1% CREAM 28.35 GM TUBE TP SCH ×6 (09:44→21:46)
[2016-12-16] MEDS: CHOLESTYRAMINE/ASPARTAME 4 G/PKT PACKET GT SCH (11:38)
[2016-12-16] MEDS: hydrALAZINE HCL 10 MG TABLET GT PRN ×2 (11:44→16:43)
[2016-12-16] MEDS: MULTIVIT, IRON, MIN NO. 8, FA 1 TAB GT SCH (21:45)
[2016-12-16] MEDS: ASCORBIC ACID 500 MG TABLET GT SCH (21:46)
[2016-12-16] MEDS: VALSARTAN 80 MG TABLET GT SCH (22:00)
[2016-12-17] VITALS (8 sets, daily range): BP systolic 91–123; BP diastolic 50–84
[2016-12-17] MEDS: GLYTROL 1,000 ML BAG GT PRN ×2 (01:42→22:40)
[2016-12-17] MEDS: ALBUTEROL FS 2.5 MG/3 ML VIAL.NEB NEB SCH ×4 (02:17→20:12)
[2016-12-17] MEDS: IPRATROPIUM NEB FS 0.5 MG/2.5 ML AMPUL.NEB IH SCH ×4 (02:17→20:12)
[2016-12-17] MEDS: PANTOPRAZOLE 40 MG/PACK PACK GT SCH (05:56)
[2016-12-17] MEDS: LEVOTHYROXINE SODIUM 88 MCG TABLET GT SCH (05:56)
[2016-12-17] MEDS: BLOOD SUGAR DIAGNOSTIC 1 EACH STRIP IN SCH ×2 (05:56→17:31)
[2016-12-17] MEDS: INSULIN REGULAR, HUMAN 100 UNIT/ML 3 ML VIAL SQ PRN ×2 (05:57→17:31)
[2016-12-17] MEDS: LABETALOL HCL (100MG) 100 MG TABLET GT SCH ×2 (08:57→21:15)
[2016-12-17] MEDS: LACTOBACILLUS RHAMNOSUS GG 1 EACH CAP.SPRINK GT SCH (08:57)
[2016-12-17] MEDS: LORATADINE 10 MG TABLET GT SCH (08:57)
[2016-12-17] MEDS: LEVETIRACETAM SOL (5 ML) 100 MG/ML UDC GT SCH ×2 (08:57→21:13)
[2016-12-17] MEDS: OMEGA GT SCH ×3 (08:57→16:46)
[2016-12-17] MEDS: PROSOURCE / PROSTAT (PYXIS) 30 ML UDC GT SCH ×2 (08:57→16:46)
[2016-12-17] MEDS: CARBOXYMETHYLCELLULOSE SODIUM 0.4 ML DROPERETTE EACHEYE SCH (08:57)
[2016-12-17] MEDS: HYDROGEN PEROXIDE 480 ML BOTTLE TP SCH ×2 (08:58→21:19)
[2016-12-17] MEDS: COD LIVER OIL/ZINC OXIDE 120 GM TUBE TP SCH ×2 (08:58→21:19)
[2016-12-17] MEDS: CLOTRIMAZOLE 1% 15 GM TUBE TP SCH ×2 (08:58→21:20)
[2016-12-17] MEDS: hydrALAZINE HCL 10 MG TABLET GT PRN ×3 (08:58→16:46)
[2016-12-17] MEDS: NEOMY SULF/BACITRAC ZN/POLY 15 GM TUBE TP SCH ×2 (08:58→21:20)
[2016-12-17] MEDS: CHOLESTYRAMINE/ASPARTAME 4 G/PKT PACKET GT SCH (12:05)
[2016-12-17] MEDS: MULTIVIT, IRON, MIN NO. 8, FA 1 TAB GT SCH (21:13)
[2016-12-17] MEDS: ASCORBIC ACID 500 MG TABLET GT SCH (21:17)
[2016-12-17] MEDS: VALSARTAN 80 MG TABLET GT SCH (22:38)
[2016-12-18] VITALS (9 sets, daily range): BP systolic 117–127; BP diastolic 55–73
[2016-12-18] MEDS: ALBUTEROL FS 2.5 MG/3 ML VIAL.NEB NEB SCH ×4 (02:25→19:05)
[2016-12-18] MEDS: IPRATROPIUM NEB FS 0.5 MG/2.5 ML AMPUL.NEB IH SCH ×4 (02:25→19:05)
[2016-12-18] MEDS: LEVOTHYROXINE SODIUM 88 MCG TABLET GT SCH (06:06)
[2016-12-18] MEDS: INSULIN REGULAR, HUMAN 100 UNIT/ML 3 ML VIAL SQ PRN ×2 (06:06→18:33)
[2016-12-18] MEDS: BLOOD SUGAR DIAGNOSTIC 1 EACH STRIP IN SCH ×2 (06:06→18:32)
[2016-12-18] MEDS: PANTOPRAZOLE 40 MG/PACK PACK GT SCH (06:06)
--- NOTE | 2016-12-18 09:00 | NUR ---
Seen and examined by Dr. Monet, NNO given.
[2016-12-18] MEDS: LORATADINE 10 MG TABLET GT SCH (09:28)
[2016-12-18] MEDS: CARBOXYMETHYLCELLULOSE SODIUM 0.4 ML DROPERETTE EACHEYE SCH (09:28)
[2016-12-18] MEDS: OMEGA GT SCH ×3 (09:28→17:00)
[2016-12-18] MEDS: LACTOBACILLUS RHAMNOSUS GG 1 EACH CAP.SPRINK GT SCH (09:28)
[2016-12-18] MEDS: PROSOURCE / PROSTAT (PYXIS) 30 ML UDC GT SCH ×2 (09:28→17:00)
[2016-12-18] MEDS: LEVETIRACETAM SOL (5 ML) 100 MG/ML UDC GT SCH ×2 (09:28→21:26)
[2016-12-18] MEDS: COD LIVER OIL/ZINC OXIDE 120 GM TUBE TP SCH ×2 (09:29→21:19)
[2016-12-18] MEDS: HYDROGEN PEROXIDE 480 ML BOTTLE TP SCH ×2 (09:29→21:19)
[2016-12-18] MEDS: LABETALOL HCL (100MG) 100 MG TABLET GT SCH ×2 (09:29→21:18)
[2016-12-18] MEDS: CLOTRIMAZOLE 1% 15 GM TUBE TP SCH ×2 (09:30→21:19)
[2016-12-18] MEDS: NEOMY SULF/BACITRAC ZN/POLY 15 GM TUBE TP SCH ×2 (09:30→21:19)
[2016-12-18] MEDS: CHOLESTYRAMINE/ASPARTAME 4 G/PKT PACKET GT SCH (12:31)
[2016-12-18] MEDS: ASCORBIC ACID 500 MG TABLET GT SCH (21:19)
[2016-12-18] MEDS: MULTIVIT, IRON, MIN NO. 8, FA 1 TAB GT SCH (21:26)
[2016-12-18] MEDS: VALSARTAN 80 MG TABLET GT SCH (22:00)
[2016-12-19 01:00] VITALS: BP 126/60
[2016-12-19] MEDS: ALBUTEROL FS 2.5 MG/3 ML VIAL.NEB NEB SCH ×4 (01:13→19:53)
[2016-12-19] MEDS: IPRATROPIUM NEB FS 0.5 MG/2.5 ML AMPUL.NEB IH SCH ×4 (01:13→19:53)
[2016-12-19 05:00] VITALS: BP 125/60
[2016-12-19] MEDS: INSULIN REGULAR, HUMAN 100 UNIT/ML 3 ML VIAL SQ PRN ×2 (05:22→18:03)
[2016-12-19] MEDS: LEVOTHYROXINE SODIUM 88 MCG TABLET GT SCH (05:22)
[2016-12-19] MEDS: BLOOD SUGAR DIAGNOSTIC 1 EACH STRIP IN SCH ×2 (05:22→18:00)
[2016-12-19] MEDS: PANTOPRAZOLE 40 MG/PACK PACK GT SCH (05:22)
[2016-12-19 08:08] VITALS: BP 99/61
[2016-12-19] MEDS: OMEGA GT SCH ×3 (09:00→17:00)
[2016-12-19] MEDS: CARBOXYMETHYLCELLULOSE SODIUM 0.4 ML DROPERETTE EACHEYE SCH (09:00)
[2016-12-19] MEDS: LACTOBACILLUS RHAMNOSUS GG 1 EACH CAP.SPRINK GT SCH (09:00)
[2016-12-19] MEDS: COD LIVER OIL/ZINC OXIDE 120 GM TUBE TP SCH ×2 (09:00→20:18)
[2016-12-19] MEDS: LABETALOL HCL (100MG) 100 MG TABLET GT SCH ×2 (09:00→20:17)
[2016-12-19] MEDS: PROSOURCE / PROSTAT (PYXIS) 30 ML UDC GT SCH ×2 (09:00→17:00)
[2016-12-19] MEDS: NEOMY SULF/BACITRAC ZN/POLY 15 GM TUBE TP SCH ×2 (09:00→20:18)
[2016-12-19] MEDS: LORATADINE 10 MG TABLET GT SCH (09:00)
[2016-12-19] MEDS: LEVETIRACETAM SOL (5 ML) 100 MG/ML UDC GT SCH ×2 (09:00→20:17)
[2016-12-19] MEDS: CLOTRIMAZOLE 1% 15 GM TUBE TP SCH ×2 (09:00→20:18)
[2016-12-19] MEDS: HYDROGEN PEROXIDE 480 ML BOTTLE TP SCH ×2 (09:00→20:18)
[2016-12-19] MEDS: CHOLESTYRAMINE/ASPARTAME 4 G/PKT PACKET GT SCH (11:06)
[2016-12-19 13:00] VITALS: BP 139/82
[2016-12-19 20:04] VITALS: BP 122/60
[2016-12-19] MEDS: ASCORBIC ACID 500 MG TABLET GT SCH (20:17)
[2016-12-19] MEDS: MULTIVIT, IRON, MIN NO. 8, FA 1 TAB GT SCH (20:17)
[2016-12-19 21:26] VITALS: BP 122/60
[2016-12-19] MEDS: VALSARTAN 80 MG TABLET GT SCH (22:08)
[2016-12-20 01:00] VITALS: BP 110/57
[2016-12-20] MEDS: ALBUTEROL FS 2.5 MG/3 ML VIAL.NEB NEB SCH ×4 (02:03→19:36)
[2016-12-20] MEDS: IPRATROPIUM NEB FS 0.5 MG/2.5 ML AMPUL.NEB IH SCH ×4 (02:03→19:36)
[2016-12-20 05:18] VITALS: BP 112/62
[2016-12-20] MEDS: BLOOD SUGAR DIAGNOSTIC 1 EACH STRIP IN SCH ×2 (05:38→18:36)
[2016-12-20] MEDS: LEVOTHYROXINE SODIUM 88 MCG TABLET GT SCH (05:38)
[2016-12-20] MEDS: PANTOPRAZOLE 40 MG/PACK PACK GT SCH (05:38)
[2016-12-20 08:06] VITALS: BP 136/95
[2016-12-20] MEDS: HYDROGEN PEROXIDE 480 ML BOTTLE TP SCH ×2 (09:29→21:00)
[2016-12-20] MEDS: COD LIVER OIL/ZINC OXIDE 120 GM TUBE TP SCH ×2 (09:29→21:00)
[2016-12-20] MEDS: CARBOXYMETHYLCELLULOSE SODIUM 0.4 ML DROPERETTE EACHEYE SCH (09:29)
[2016-12-20] MEDS: LACTOBACILLUS RHAMNOSUS GG 1 EACH CAP.SPRINK GT SCH (09:29)
[2016-12-20] MEDS: CLOTRIMAZOLE 1% 15 GM TUBE TP SCH ×2 (09:29→21:00)
[2016-12-20] MEDS: OMEGA GT SCH ×3 (09:29→17:00)
[2016-12-20] MEDS: PROSOURCE / PROSTAT (PYXIS) 30 ML UDC GT SCH ×2 (09:29→17:00)
[2016-12-20] MEDS: NEOMY SULF/BACITRAC ZN/POLY 15 GM TUBE TP SCH ×2 (09:29→21:00)
[2016-12-20] MEDS: LEVETIRACETAM SOL (5 ML) 100 MG/ML UDC GT SCH ×2 (09:29→23:50)
[2016-12-20] MEDS: LORATADINE 10 MG TABLET GT SCH (09:29)
[2016-12-20] MEDS: LABETALOL HCL (100MG) 100 MG TABLET GT SCH ×2 (09:29→23:51)
[2016-12-20] MEDS: CHOLESTYRAMINE/ASPARTAME 4 G/PKT PACKET GT SCH (12:04)
[2016-12-20] MEDS: INSULIN REGULAR, HUMAN 100 UNIT/ML 3 ML VIAL SQ PRN (18:36)
[2016-12-20 19:01] VITALS: BP 104/71
--- NOTE | 2016-12-20 19:30 | NUR ---
RN OPENING NOTES received report from sophie rn. pt is asleep. no s/s of acute distress or sob noted. equal chest rise and fall. gt feeding glytrol @60ml/hrx20h. gtube flushing well. safety measures in place. will continue to monitor pt throughout the night for safety.
[2016-12-20 20:00] VITALS: BP 120/50
[2016-12-20 21:00] VITALS: BP 120/50
[2016-12-20] MEDS: MULTIVIT, IRON, MIN NO. 8, FA 1 TAB GT SCH (21:00)
[2016-12-20] MEDS: ASCORBIC ACID 500 MG TABLET GT SCH (21:00)
[2016-12-20] MEDS: VALSARTAN 80 MG TABLET GT SCH (23:52)
[2016-12-21] VITALS (8 sets, daily range): BP systolic 100–116; BP diastolic 43–64
[2016-12-21] MEDS: IPRATROPIUM NEB FS 0.5 MG/2.5 ML AMPUL.NEB IH SCH ×4 (01:40→19:57)
[2016-12-21] MEDS: ALBUTEROL FS 2.5 MG/3 ML VIAL.NEB NEB SCH ×4 (01:41→19:57)
[2016-12-21] MEDS: PANTOPRAZOLE 40 MG/PACK PACK GT SCH (05:36)
[2016-12-21] MEDS: BLOOD SUGAR DIAGNOSTIC 1 EACH STRIP IN SCH ×2 (05:36→17:40)
[2016-12-21] MEDS: LEVOTHYROXINE SODIUM 88 MCG TABLET GT SCH (05:36)
--- NOTE | 2016-12-21 06:00 | NUR ---
ACCUCHECK BG 125. NO INSULIN COVERAGE NEEDED AT THIS TIME.
[2016-12-21] MEDS: GLYTROL 1,000 ML BAG GT PRN (06:35)
[2016-12-21] MEDS: LEVETIRACETAM SOL (5 ML) 100 MG/ML UDC GT SCH ×2 (08:10→21:08)
[2016-12-21] MEDS: LABETALOL HCL (100MG) 100 MG TABLET GT SCH ×2 (08:11→21:09)
[2016-12-21] MEDS: LORATADINE 10 MG TABLET GT SCH (08:11)
[2016-12-21] MEDS: OMEGA GT SCH ×3 (08:12→16:35)
[2016-12-21] MEDS: LACTOBACILLUS RHAMNOSUS GG 1 EACH CAP.SPRINK GT SCH (08:12)
[2016-12-21] MEDS: CARBOXYMETHYLCELLULOSE SODIUM 0.4 ML DROPERETTE EACHEYE SCH (08:12)
[2016-12-21] MEDS: COD LIVER OIL/ZINC OXIDE 120 GM TUBE TP SCH ×2 (08:13→21:10)
[2016-12-21] MEDS: HYDROGEN PEROXIDE 480 ML BOTTLE TP SCH ×2 (08:14→21:10)
[2016-12-21] MEDS: NEOMY SULF/BACITRAC ZN/POLY 15 GM TUBE TP SCH ×2 (08:15→21:10)
[2016-12-21] MEDS: CLOTRIMAZOLE 1% 15 GM TUBE TP SCH ×2 (08:16→21:10)
[2016-12-21] MEDS: PROSOURCE / PROSTAT (PYXIS) 30 ML UDC GT SCH ×2 (08:17→16:35)
[2016-12-21] MEDS: CHOLESTYRAMINE/ASPARTAME 4 G/PKT PACKET GT SCH (12:28)
--- NOTE | 2016-12-21 19:30 | NUR ---
Seen by Dr. Ramirez no new order at this time.
[2016-12-21] MEDS: MULTIVIT, IRON, MIN NO. 8, FA 1 TAB GT SCH (21:08)
[2016-12-21] MEDS: ASCORBIC ACID 500 MG TABLET GT SCH (21:10)
[2016-12-21] MEDS: VALSARTAN 80 MG TABLET GT SCH (21:25)
[2016-12-22] VITALS (7 sets, daily range): BP systolic 103–127; BP diastolic 52–82
[2016-12-22] MEDS: ALBUTEROL FS 2.5 MG/3 ML VIAL.NEB NEB SCH ×5 (01:23→19:42)
[2016-12-22] MEDS: IPRATROPIUM NEB FS 0.5 MG/2.5 ML AMPUL.NEB IH SCH ×4 (01:23→19:42)
[2016-12-22] MEDS: GLYTROL 1,000 ML BAG GT PRN ×2 (02:14→20:29)
[2016-12-22] MEDS: LEVOTHYROXINE SODIUM 88 MCG TABLET GT SCH (05:26)
[2016-12-22] MEDS: BLOOD SUGAR DIAGNOSTIC 1 EACH STRIP IN SCH ×2 (05:26→17:28)
[2016-12-22] MEDS: PANTOPRAZOLE 40 MG/PACK PACK GT SCH (05:26)
[2016-12-22] MEDS: INSULIN REGULAR, HUMAN 100 UNIT/ML 3 ML VIAL SQ PRN (05:26)
[2016-12-22] MEDS: LABETALOL HCL (100MG) 100 MG TABLET GT SCH ×2 (09:00→20:28)
[2016-12-22] MEDS: PROSOURCE / PROSTAT (PYXIS) 30 ML UDC GT SCH ×2 (09:11→17:28)
[2016-12-22] MEDS: OMEGA GT SCH ×3 (09:11→17:28)
[2016-12-22] MEDS: CARBOXYMETHYLCELLULOSE SODIUM 0.4 ML DROPERETTE EACHEYE SCH (09:11)
[2016-12-22] MEDS: LEVETIRACETAM SOL (5 ML) 100 MG/ML UDC GT SCH ×2 (09:11→20:28)
[2016-12-22] MEDS: LACTOBACILLUS RHAMNOSUS GG 1 EACH CAP.SPRINK GT SCH (09:11)
[2016-12-22] MEDS: LORATADINE 10 MG TABLET GT SCH (09:11)
[2016-12-22] MEDS: COD LIVER OIL/ZINC OXIDE 120 GM TUBE TP SCH ×2 (09:12→21:52)
[2016-12-22] MEDS: CLOTRIMAZOLE 1% 15 GM TUBE TP SCH ×2 (09:12→21:52)
[2016-12-22] MEDS: NEOMY SULF/BACITRAC ZN/POLY 15 GM TUBE TP SCH ×2 (09:12→21:52)
[2016-12-22] MEDS: HYDROGEN PEROXIDE 480 ML BOTTLE TP SCH ×2 (09:12→21:52)
[2016-12-22] MEDS: CHOLESTYRAMINE/ASPARTAME 4 G/PKT PACKET GT SCH (12:40)
[2016-12-22] MEDS: ASCORBIC ACID 500 MG TABLET GT SCH (20:28)
[2016-12-22] MEDS: MULTIVIT, IRON, MIN NO. 8, FA 1 TAB GT SCH (20:28)
[2016-12-22] MEDS: HYDROGEL DRESSING 90 GM TUBE TP SCH (21:51)
[2016-12-22] MEDS: VALSARTAN 80 MG TABLET GT SCH (22:12)
[2016-12-23] VITALS (7 sets, daily range): BP systolic 98–131; BP diastolic 50–73
[2016-12-23] MEDS: ALBUTEROL FS 2.5 MG/3 ML VIAL.NEB NEB SCH ×4 (00:52→19:29)
[2016-12-23] MEDS: IPRATROPIUM NEB FS 0.5 MG/2.5 ML AMPUL.NEB IH SCH ×4 (00:52→19:29)
[2016-12-23] MEDS: BLOOD SUGAR DIAGNOSTIC 1 EACH STRIP IN SCH ×2 (05:37→17:00)
[2016-12-23] MEDS: PANTOPRAZOLE 40 MG/PACK PACK GT SCH (05:37)
[2016-12-23] MEDS: LEVOTHYROXINE SODIUM 88 MCG TABLET GT SCH (05:37)
[2016-12-23] MEDS: INSULIN REGULAR, HUMAN 100 UNIT/ML 3 ML VIAL SQ PRN ×2 (05:38→18:14)
[2016-12-23] MEDS: COD LIVER OIL/ZINC OXIDE 120 GM TUBE TP SCH ×2 (08:57→21:28)
[2016-12-23] MEDS: LABETALOL HCL (100MG) 100 MG TABLET GT SCH ×2 (08:57→21:28)
[2016-12-23] MEDS: HYDROGEL DRESSING 90 GM TUBE TP SCH ×2 (08:57→21:28)
[2016-12-23] MEDS: HYDROGEN PEROXIDE 480 ML BOTTLE TP SCH ×2 (08:58→21:28)
[2016-12-23] MEDS: CLOTRIMAZOLE 1% 15 GM TUBE TP SCH ×2 (08:58→21:28)
[2016-12-23] MEDS: LEVETIRACETAM SOL (5 ML) 100 MG/ML UDC GT SCH ×2 (09:02→21:27)
[2016-12-23] MEDS: OMEGA GT SCH ×3 (09:02→16:59)
[2016-12-23] MEDS: LORATADINE 10 MG TABLET GT SCH (09:02)
[2016-12-23] MEDS: LACTOBACILLUS RHAMNOSUS GG 1 EACH CAP.SPRINK GT SCH (09:02)
[2016-12-23] MEDS: CARBOXYMETHYLCELLULOSE SODIUM 0.4 ML DROPERETTE EACHEYE SCH (09:02)
[2016-12-23] MEDS: PROSOURCE / PROSTAT (PYXIS) 30 ML UDC GT SCH ×2 (09:02→16:59)
[2016-12-23] MEDS: hydrALAZINE HCL 10 MG TABLET GT PRN ×2 (09:05→17:00)
[2016-12-23] MEDS: CHOLESTYRAMINE/ASPARTAME 4 G/PKT PACKET GT SCH (12:00)
[2016-12-23] MEDS: GLYTROL 1,000 ML BAG GT PRN (18:31)
[2016-12-23] MEDS: MULTIVIT, IRON, MIN NO. 8, FA 1 TAB GT SCH (21:27)
[2016-12-23] MEDS: ASCORBIC ACID 500 MG TABLET GT SCH (21:28)
[2016-12-23] MEDS: VALSARTAN 80 MG TABLET GT SCH (22:00)
[2016-12-24] VITALS (8 sets, daily range): BP systolic 99–130; BP diastolic 50–79
[2016-12-24] MEDS: ALBUTEROL FS 2.5 MG/3 ML VIAL.NEB NEB SCH ×4 (01:24→19:33)
[2016-12-24] MEDS: IPRATROPIUM NEB FS 0.5 MG/2.5 ML AMPUL.NEB IH SCH ×4 (01:24→19:33)
[2016-12-24] MEDS: BLOOD SUGAR DIAGNOSTIC 1 EACH STRIP IN SCH ×2 (05:46→17:04)
[2016-12-24] MEDS: LEVOTHYROXINE SODIUM 88 MCG TABLET GT SCH (05:46)
[2016-12-24] MEDS: PANTOPRAZOLE 40 MG/PACK PACK GT SCH (05:46)
[2016-12-24] MEDS: INSULIN REGULAR, HUMAN 100 UNIT/ML 3 ML VIAL SQ PRN ×2 (05:47→17:05)
[2016-12-24] MEDS: hydrALAZINE HCL 10 MG TABLET GT PRN ×3 (08:18→16:05)
[2016-12-24] MEDS: CARBOXYMETHYLCELLULOSE SODIUM 0.4 ML DROPERETTE EACHEYE SCH (09:42)
[2016-12-24] MEDS: LORATADINE 10 MG TABLET GT SCH (09:43)
[2016-12-24] MEDS: LEVETIRACETAM SOL (5 ML) 100 MG/ML UDC GT SCH ×2 (09:43→21:03)
[2016-12-24] MEDS: OMEGA GT SCH ×3 (09:43→16:05)
[2016-12-24] MEDS: PROSOURCE / PROSTAT (PYXIS) 30 ML UDC GT SCH ×2 (09:43→16:05)
[2016-12-24] MEDS: LACTOBACILLUS RHAMNOSUS GG 1 EACH CAP.SPRINK GT SCH (09:43)
[2016-12-24] MEDS: LABETALOL HCL (100MG) 100 MG TABLET GT SCH ×2 (09:44→21:03)
[2016-12-24] MEDS: COD LIVER OIL/ZINC OXIDE 120 GM TUBE TP SCH ×2 (09:44→21:31)
[2016-12-24] MEDS: HYDROGEL DRESSING 90 GM TUBE TP SCH ×2 (09:44→21:31)
[2016-12-24] MEDS: HYDROGEN PEROXIDE 480 ML BOTTLE TP SCH ×2 (09:44→21:31)
[2016-12-24] MEDS: CLOTRIMAZOLE 1% 15 GM TUBE TP SCH ×2 (09:44→21:31)
[2016-12-24] MEDS: CHOLESTYRAMINE/ASPARTAME 4 G/PKT PACKET GT SCH (12:19)
[2016-12-24] MEDS: GLYTROL 1,000 ML BAG GT PRN (15:08)
[2016-12-24] MEDS: ASCORBIC ACID 500 MG TABLET GT SCH (21:03)
[2016-12-24] MEDS: MULTIVIT, IRON, MIN NO. 8, FA 1 TAB GT SCH (21:03)
[2016-12-24] MEDS: VALSARTAN 80 MG TABLET GT SCH (22:25)
[2016-12-25] VITALS (7 sets, daily range): BP systolic 107–134; BP diastolic 63–78
[2016-12-25] MEDS: IPRATROPIUM NEB FS 0.5 MG/2.5 ML AMPUL.NEB IH SCH ×4 (00:57→19:05)
[2016-12-25] MEDS: ALBUTEROL FS 2.5 MG/3 ML VIAL.NEB NEB SCH ×4 (00:57→19:05)
[2016-12-25] MEDS: PANTOPRAZOLE 40 MG/PACK PACK GT SCH (05:32)
[2016-12-25] MEDS: BLOOD SUGAR DIAGNOSTIC 1 EACH STRIP IN SCH ×2 (05:32→17:39)
[2016-12-25] MEDS: LEVOTHYROXINE SODIUM 88 MCG TABLET GT SCH (05:32)
[2016-12-25] MEDS: INSULIN REGULAR, HUMAN 100 UNIT/ML 3 ML VIAL SQ PRN ×2 (05:33→17:40)
[2016-12-25] MEDS: GLYTROL 1,000 ML BAG GT PRN (07:12)
[2016-12-25] MEDS: LEVETIRACETAM SOL (5 ML) 100 MG/ML UDC GT SCH ×2 (09:00→20:22)
[2016-12-25] MEDS: OMEGA GT SCH ×3 (09:00→16:46)
[2016-12-25] MEDS: COD LIVER OIL/ZINC OXIDE 120 GM TUBE TP SCH ×2 (09:00→20:23)
[2016-12-25] MEDS: HYDROGEN PEROXIDE 480 ML BOTTLE TP SCH ×2 (09:00→20:23)
[2016-12-25] MEDS: CARBOXYMETHYLCELLULOSE SODIUM 0.4 ML DROPERETTE EACHEYE SCH (09:00)
[2016-12-25] MEDS: CLOTRIMAZOLE 1% 15 GM TUBE TP SCH ×2 (09:00→20:24)
[2016-12-25] MEDS: HYDROGEL DRESSING 90 GM TUBE TP SCH ×2 (09:00→20:23)
[2016-12-25] MEDS: LABETALOL HCL (100MG) 100 MG TABLET GT SCH ×2 (09:00→20:22)
[2016-12-25] MEDS: PROSOURCE / PROSTAT (PYXIS) 30 ML UDC GT SCH ×2 (09:00→16:46)
[2016-12-25] MEDS: LORATADINE 10 MG TABLET GT SCH (09:00)
[2016-12-25] MEDS: LACTOBACILLUS RHAMNOSUS GG 1 EACH CAP.SPRINK GT SCH (09:00)
[2016-12-25] MEDS: CHOLESTYRAMINE/ASPARTAME 4 G/PKT PACKET GT SCH (12:00)
[2016-12-25] MEDS: MULTIVIT, IRON, MIN NO. 8, FA 1 TAB GT SCH (20:22)
[2016-12-25] MEDS: HYDROCORTISONE 1% CREAM 28.35 GM TUBE TP SCH (20:23)
[2016-12-25] MEDS: ASCORBIC ACID 500 MG TABLET GT SCH (20:23)
[2016-12-25] MEDS: VALSARTAN 80 MG TABLET GT SCH (21:59)
[2016-12-26] VITALS (7 sets, daily range): BP systolic 94–127; BP diastolic 55–70
[2016-12-26] MEDS: GLYTROL 1,000 ML BAG GT PRN ×2 (00:49→21:25)
[2016-12-26] MEDS: ALBUTEROL FS 2.5 MG/3 ML VIAL.NEB NEB SCH ×4 (01:46→19:09)
[2016-12-26] MEDS: IPRATROPIUM NEB FS 0.5 MG/2.5 ML AMPUL.NEB IH SCH ×4 (01:46→19:09)
[2016-12-26] MEDS: BLOOD SUGAR DIAGNOSTIC 1 EACH STRIP IN SCH ×2 (05:27→17:41)
[2016-12-26] MEDS: PANTOPRAZOLE 40 MG/PACK PACK GT SCH (05:27)
[2016-12-26] MEDS: LEVOTHYROXINE SODIUM 88 MCG TABLET GT SCH (05:27)
[2016-12-26] MEDS: LEVETIRACETAM SOL (5 ML) 100 MG/ML UDC GT SCH ×2 (09:52→20:11)
[2016-12-26] MEDS: OMEGA GT SCH ×3 (09:52→17:41)
[2016-12-26] MEDS: LACTOBACILLUS RHAMNOSUS GG 1 EACH CAP.SPRINK GT SCH (09:52)
[2016-12-26] MEDS: LORATADINE 10 MG TABLET GT SCH (09:52)
[2016-12-26] MEDS: PROSOURCE / PROSTAT (PYXIS) 30 ML UDC GT SCH ×2 (09:52→17:41)
[2016-12-26] MEDS: CARBOXYMETHYLCELLULOSE SODIUM 0.4 ML DROPERETTE EACHEYE SCH (09:52)
[2016-12-26] MEDS: HYDROGEL DRESSING 90 GM TUBE TP SCH ×2 (09:53→20:12)
[2016-12-26] MEDS: LABETALOL HCL (100MG) 100 MG TABLET GT SCH ×2 (09:53→20:11)
[2016-12-26] MEDS: HYDROCORTISONE 1% CREAM 28.35 GM TUBE TP SCH ×2 (09:53→20:12)
[2016-12-26] MEDS: COD LIVER OIL/ZINC OXIDE 120 GM TUBE TP SCH ×2 (09:53→20:12)
[2016-12-26] MEDS: HYDROGEN PEROXIDE 480 ML BOTTLE TP SCH ×2 (09:53→20:13)
[2016-12-26] MEDS: CLOTRIMAZOLE 1% 15 GM TUBE TP SCH ×2 (09:54→20:13)
[2016-12-26] MEDS: CHOLESTYRAMINE/ASPARTAME 4 G/PKT PACKET GT SCH (12:00)
[2016-12-26] MEDS: INSULIN REGULAR, HUMAN 100 UNIT/ML 3 ML VIAL SQ PRN (17:42)
[2016-12-26] MEDS: MULTIVIT, IRON, MIN NO. 8, FA 1 TAB GT SCH (20:11)
[2016-12-26] MEDS: ASCORBIC ACID 500 MG TABLET GT SCH (20:12)
[2016-12-26] MEDS: VALSARTAN 80 MG TABLET GT SCH (22:00)
[2016-12-27] VITALS (7 sets, daily range): BP systolic 101–130; BP diastolic 57–73
[2016-12-27] MEDS: IPRATROPIUM NEB FS 0.5 MG/2.5 ML AMPUL.NEB IH SCH ×4 (00:54→19:50)
[2016-12-27] MEDS: ALBUTEROL FS 2.5 MG/3 ML VIAL.NEB NEB SCH ×4 (00:54→19:50)
[2016-12-27] MEDS: PANTOPRAZOLE 40 MG/PACK PACK GT SCH (05:04)
[2016-12-27] MEDS: BLOOD SUGAR DIAGNOSTIC 1 EACH STRIP IN SCH ×2 (05:04→17:41)
[2016-12-27] MEDS: LEVOTHYROXINE SODIUM 88 MCG TABLET GT SCH (05:04)
[2016-12-27] MEDS: LACTOBACILLUS RHAMNOSUS GG 1 EACH CAP.SPRINK GT SCH (09:38)
[2016-12-27] MEDS: LORATADINE 10 MG TABLET GT SCH (09:38)
[2016-12-27] MEDS: LEVETIRACETAM SOL (5 ML) 100 MG/ML UDC GT SCH ×2 (09:38→20:10)
[2016-12-27] MEDS: PROSOURCE / PROSTAT (PYXIS) 30 ML UDC GT SCH ×2 (09:38→16:34)
[2016-12-27] MEDS: CARBOXYMETHYLCELLULOSE SODIUM 0.4 ML DROPERETTE EACHEYE SCH (09:38)
[2016-12-27] MEDS: OMEGA GT SCH ×3 (09:38→16:34)
[2016-12-27] MEDS: HYDROGEN PEROXIDE 480 ML BOTTLE TP SCH ×2 (09:39→20:11)
[2016-12-27] MEDS: COD LIVER OIL/ZINC OXIDE 120 GM TUBE TP SCH ×2 (09:39→20:11)
[2016-12-27] MEDS: HYDROCORTISONE 1% CREAM 28.35 GM TUBE TP SCH ×2 (09:39→20:11)
[2016-12-27] MEDS: LABETALOL HCL (100MG) 100 MG TABLET GT SCH ×2 (09:39→20:11)
[2016-12-27] MEDS: HYDROGEL DRESSING 90 GM TUBE TP SCH ×2 (09:39→20:11)
[2016-12-27] MEDS: CLOTRIMAZOLE 1% 15 GM TUBE TP SCH ×2 (09:39→20:11)
--- NOTE | 2016-12-27 10:48 | NUR ---
research worker kitchen called the resident's daughter/DPOA Reyna Teresa. SW informed her that there is an IDT meeting this Friday December 30, 2016 from 12:30-1:30PM. She stated that she will be available via phone conference. IDT team to call her during this time. She also stated that if she is not available for IDT meetings, SW can ask her sister Dyana but it will either be one or the other. She stated that she does not speak to her sister anymore ever since discussion about end of life care decisions conversation. She also stated that if her family members ask about who visited the resident to state "i don't know" and she explained she does not want her sisters to know who visits the resident. JOSSE informed the charge nurse and placed a notice in the resident's chart.
[2016-12-27] MEDS: CHOLESTYRAMINE/ASPARTAME 4 G/PKT PACKET GT SCH (12:00)
[2016-12-27] MEDS: GLYTROL 1,000 ML BAG GT PRN (17:10)
[2016-12-27] MEDS: INSULIN REGULAR, HUMAN 100 UNIT/ML 3 ML VIAL SQ PRN (17:42)
[2016-12-27] MEDS: MULTIVIT, IRON, MIN NO. 8, FA 1 TAB GT SCH (20:10)
[2016-12-27] MEDS: ASCORBIC ACID 500 MG TABLET GT SCH (20:11)
[2016-12-27] MEDS: VALSARTAN 80 MG TABLET GT SCH (22:17)
[2016-12-28] VITALS (7 sets, daily range): BP systolic 103–124; BP diastolic 46–74
[2016-12-28] MEDS: IPRATROPIUM NEB FS 0.5 MG/2.5 ML AMPUL.NEB IH SCH ×4 (01:57→19:36)
[2016-12-28] MEDS: ALBUTEROL FS 2.5 MG/3 ML VIAL.NEB NEB SCH ×4 (01:57→19:36)
[2016-12-28] MEDS: BLOOD SUGAR DIAGNOSTIC 1 EACH STRIP IN SCH ×2 (05:40→17:40)
[2016-12-28] MEDS: PANTOPRAZOLE 40 MG/PACK PACK GT SCH (05:40)
[2016-12-28] MEDS: LEVOTHYROXINE SODIUM 88 MCG TABLET GT SCH (05:40)
[2016-12-28] MEDS: CARBOXYMETHYLCELLULOSE SODIUM 0.4 ML DROPERETTE EACHEYE SCH (08:57)
[2016-12-28] MEDS: LEVETIRACETAM SOL (5 ML) 100 MG/ML UDC GT SCH ×2 (08:57→21:12)
[2016-12-28] MEDS: PROSOURCE / PROSTAT (PYXIS) 30 ML UDC GT SCH ×2 (08:57→17:36)
[2016-12-28] MEDS: LORATADINE 10 MG TABLET GT SCH (08:57)
[2016-12-28] MEDS: LACTOBACILLUS RHAMNOSUS GG 1 EACH CAP.SPRINK GT SCH (08:57)
[2016-12-28] MEDS: OMEGA GT SCH ×3 (08:57→17:36)
[2016-12-28] MEDS: HYDROGEL DRESSING 90 GM TUBE TP SCH ×2 (08:58→21:13)
[2016-12-28] MEDS: LABETALOL HCL (100MG) 100 MG TABLET GT SCH ×2 (08:58→21:12)
[2016-12-28] MEDS: HYDROGEN PEROXIDE 480 ML BOTTLE TP SCH ×2 (08:59→21:14)
[2016-12-28] MEDS: COD LIVER OIL/ZINC OXIDE 120 GM TUBE TP SCH ×2 (08:59→21:13)
[2016-12-28] MEDS: CLOTRIMAZOLE 1% 15 GM TUBE TP SCH (08:59)
[2016-12-28] MEDS: HYDROCORTISONE 1% CREAM 28.35 GM TUBE TP SCH ×2 (08:59→21:14)
[2016-12-28] MEDS: CHOLESTYRAMINE/ASPARTAME 4 G/PKT PACKET GT SCH (12:00)
[2016-12-28] MEDS: GLYTROL 1,000 ML BAG GT PRN (13:53)
[2016-12-28] MEDS: ASCORBIC ACID 500 MG TABLET GT SCH (21:12)
[2016-12-28] MEDS: MULTIVIT, IRON, MIN NO. 8, FA 1 TAB GT SCH (21:12)
[2016-12-28] MEDS: VALSARTAN 80 MG TABLET GT SCH (22:00)
[2016-12-29] VITALS (8 sets, daily range): BP systolic 108–135; BP diastolic 54–71
[2016-12-29] MEDS: ALBUTEROL FS 2.5 MG/3 ML VIAL.NEB NEB SCH ×4 (01:13→20:12)
[2016-12-29] MEDS: IPRATROPIUM NEB FS 0.5 MG/2.5 ML AMPUL.NEB IH SCH ×4 (01:13→20:12)
[2016-12-29] MEDS: PANTOPRAZOLE 40 MG/PACK PACK GT SCH (05:34)
[2016-12-29] MEDS: LEVOTHYROXINE SODIUM 88 MCG TABLET GT SCH (05:34)
[2016-12-29] MEDS: BLOOD SUGAR DIAGNOSTIC 1 EACH STRIP IN SCH ×2 (05:35→18:20)
[2016-12-29] MEDS: INSULIN REGULAR, HUMAN 100 UNIT/ML 3 ML VIAL SQ PRN (05:36)
[2016-12-29] MEDS: LABETALOL HCL (100MG) 100 MG TABLET GT SCH ×2 (09:00→20:21)
[2016-12-29] MEDS: OMEGA GT SCH ×3 (09:38→16:50)
[2016-12-29] MEDS: CARBOXYMETHYLCELLULOSE SODIUM 0.4 ML DROPERETTE EACHEYE SCH (09:38)
[2016-12-29] MEDS: LORATADINE 10 MG TABLET GT SCH (09:38)
[2016-12-29] MEDS: PROSOURCE / PROSTAT (PYXIS) 30 ML UDC GT SCH ×2 (09:38→16:50)
[2016-12-29] MEDS: LEVETIRACETAM SOL (5 ML) 100 MG/ML UDC GT SCH ×2 (09:38→20:21)
[2016-12-29] MEDS: HYDROGEL DRESSING 90 GM TUBE TP SCH ×2 (09:38→20:22)
[2016-12-29] MEDS: LACTOBACILLUS RHAMNOSUS GG 1 EACH CAP.SPRINK GT SCH (09:38)
[2016-12-29] MEDS: COD LIVER OIL/ZINC OXIDE 120 GM TUBE TP SCH ×2 (09:39→20:22)
[2016-12-29] MEDS: HYDROGEN PEROXIDE 480 ML BOTTLE TP SCH ×2 (09:39→20:22)
[2016-12-29] MEDS: HYDROCORTISONE 1% CREAM 28.35 GM TUBE TP SCH ×2 (09:39→20:22)
[2016-12-29] MEDS: CHOLESTYRAMINE/ASPARTAME 4 G/PKT PACKET GT SCH (12:14)
--- NOTE | 2016-12-29 15:30 | NUR ---
Received order to decrease GT feeding Glytrol to 50 mL/hr x 20 hours due to weight gain of 5 lbs in one month. Also received order to increase Prostat 30 mL GT to TID, Vitamin C 500 mg GT to BID per dietary recommendation.
--- NOTE | 2016-12-29 18:14 | NUR ---
Called pt's daughter Reyna and notified her that GT feeding Glytrol was decreased to 50 mL/hr, Prostat 30 mL was increased to TID and Vitamin C was increased to BID. Reyna expressed appreciation for call.
[2016-12-29] MEDS: MULTIVIT, IRON, MIN NO. 8, FA 1 TAB GT SCH (20:21)
[2016-12-29] MEDS: ASCORBIC ACID 500 MG TABLET GT SCH (20:21)
[2016-12-29] MEDS: VALSARTAN 80 MG TABLET GT SCH (22:00)
[2016-12-30] VITALS (8 sets, daily range): BP systolic 102–113; BP diastolic 56–74
[2016-12-30] MEDS: IPRATROPIUM NEB FS 0.5 MG/2.5 ML AMPUL.NEB IH SCH ×4 (01:28→20:27)
[2016-12-30] MEDS: ALBUTEROL FS 2.5 MG/3 ML VIAL.NEB NEB SCH ×4 (01:28→20:27)
[2016-12-30] MEDS: PANTOPRAZOLE 40 MG/PACK PACK GT SCH (06:35)
[2016-12-30] MEDS: BLOOD SUGAR DIAGNOSTIC 1 EACH STRIP IN SCH ×2 (06:35→18:38)
[2016-12-30] MEDS: LEVOTHYROXINE SODIUM 88 MCG TABLET GT SCH (06:35)
[2016-12-30] MEDS: INSULIN REGULAR, HUMAN 100 UNIT/ML 3 ML VIAL SQ PRN ×2 (06:35→18:38)
[2016-12-30] MEDS: LACTOBACILLUS RHAMNOSUS GG 1 EACH CAP.SPRINK GT SCH (08:55)
[2016-12-30] MEDS: LEVETIRACETAM SOL (5 ML) 100 MG/ML UDC GT SCH ×2 (08:55→20:57)
[2016-12-30] MEDS: OMEGA GT SCH ×3 (08:55→17:24)
[2016-12-30] MEDS: CARBOXYMETHYLCELLULOSE SODIUM 0.4 ML DROPERETTE EACHEYE SCH (08:55)
[2016-12-30] MEDS: LORATADINE 10 MG TABLET GT SCH (08:55)
[2016-12-30] MEDS: ASCORBIC ACID 500 MG TABLET GT SCH ×2 (08:56→21:07)
[2016-12-30] MEDS: LABETALOL HCL (100MG) 100 MG TABLET GT SCH ×2 (08:56→20:57)
[2016-12-30] MEDS: hydrALAZINE HCL 10 MG TABLET GT PRN ×3 (08:58→17:25)
[2016-12-30] MEDS: HYDROCORTISONE 1% CREAM 28.35 GM TUBE TP SCH ×2 (09:00→21:07)
[2016-12-30] MEDS: COD LIVER OIL/ZINC OXIDE 120 GM TUBE TP SCH ×2 (09:00→21:07)
[2016-12-30] MEDS: HYDROGEL DRESSING 90 GM TUBE TP SCH ×2 (09:00→21:07)
[2016-12-30] MEDS: HYDROGEN PEROXIDE 480 ML BOTTLE TP SCH ×2 (09:00→21:07)
[2016-12-30] MEDS: PROSOURCE / PROSTAT (PYXIS) 30 ML UDC GT SCH ×3 (09:11→17:24)
[2016-12-30] MEDS: CHOLESTYRAMINE/ASPARTAME 4 G/PKT PACKET GT SCH (12:00)
[2016-12-30] MEDS: GLYTROL 1,000 ML BAG GT PRN (13:18)
--- NOTE | 2016-12-30 13:39 | NUR ---
IDT meeting held, reviewed current orders, new orders, medications, wound treatment and recent labs. Reyna, daughter participated in the meeting via phone conference. New order given by Dr. Monet to D/C Loratadine. No concerns brought up by family, she just want patient to be up in the [facility] when possible.
--- NOTE | 2016-12-30 18:45 | NUR ---
Seen and examined by Bceca Smith NP, NNO given at this time.
[2016-12-30] MEDS: MULTIVIT, IRON, MIN NO. 8, FA 1 TAB GT SCH (20:57)
[2016-12-30] MEDS: VALSARTAN 80 MG TABLET GT SCH (22:17)
[2016-12-31] VITALS (8 sets, daily range): BP systolic 99–127; BP diastolic 42–76
[2016-12-31] MEDS: IPRATROPIUM NEB FS 0.5 MG/2.5 ML AMPUL.NEB IH SCH ×4 (00:59→20:08)
[2016-12-31] MEDS: ALBUTEROL FS 2.5 MG/3 ML VIAL.NEB NEB SCH ×4 (00:59→20:08)
[2016-12-31] MEDS: LEVOTHYROXINE SODIUM 88 MCG TABLET GT SCH (05:22)
[2016-12-31] MEDS: PANTOPRAZOLE 40 MG/PACK PACK GT SCH (05:22)
[2016-12-31] MEDS: BLOOD SUGAR DIAGNOSTIC 1 EACH STRIP IN SCH ×2 (05:23→17:28)
[2016-12-31] MEDS: INSULIN REGULAR, HUMAN 100 UNIT/ML 3 ML VIAL SQ PRN (05:28)
--- NOTE | 2016-12-31 05:29 | NUR ---
BG 136 MG/DL NO INSULIN COVERAGE
[2016-12-31] MEDS: OMEGA GT SCH ×3 (08:31→17:28)
[2016-12-31] MEDS: LABETALOL HCL (100MG) 100 MG TABLET GT SCH ×2 (08:31→21:14)
[2016-12-31] MEDS: LACTOBACILLUS RHAMNOSUS GG 1 EACH CAP.SPRINK GT SCH (08:31)
[2016-12-31] MEDS: PROSOURCE / PROSTAT (PYXIS) 30 ML UDC GT SCH ×3 (08:31→17:28)
[2016-12-31] MEDS: CARBOXYMETHYLCELLULOSE SODIUM 0.4 ML DROPERETTE EACHEYE SCH (08:31)
[2016-12-31] MEDS: LEVETIRACETAM SOL (5 ML) 100 MG/ML UDC GT SCH ×2 (08:31→21:14)
[2016-12-31] MEDS: hydrALAZINE HCL 10 MG TABLET GT PRN ×3 (08:32→17:28)
[2016-12-31] MEDS: ASCORBIC ACID 500 MG TABLET GT SCH ×2 (08:32→21:14)
[2016-12-31] MEDS: HYDROCORTISONE 1% CREAM 28.35 GM TUBE TP SCH ×2 (09:00→21:19)
[2016-12-31] MEDS: COD LIVER OIL/ZINC OXIDE 120 GM TUBE TP SCH ×2 (09:00→21:19)
[2016-12-31] MEDS: HYDROGEL DRESSING 90 GM TUBE TP SCH ×2 (09:00→21:19)
[2016-12-31] MEDS: HYDROGEN PEROXIDE 480 ML BOTTLE TP SCH ×2 (09:00→21:20)
[2016-12-31] MEDS: CHOLESTYRAMINE/ASPARTAME 4 G/PKT PACKET GT SCH (12:13)
--- NOTE | 2016-12-31 13:04 | NUR ---
[facility] Marah, daughter visited and fix her hair with hair rollers.
[2016-12-31] MEDS: GLYTROL 1,000 ML BAG GT PRN (13:42)
[2016-12-31] MEDS: MULTIVIT, IRON, MIN NO. 8, FA 1 TAB GT SCH (21:14)
[2016-12-31] MEDS: VALSARTAN 80 MG TABLET GT SCH (22:00)
[2017-01-01] VITALS (7 sets, daily range): BP systolic 98–116; BP diastolic 52–67
[2017-01-01] MEDS: IPRATROPIUM NEB FS 0.5 MG/2.5 ML AMPUL.NEB IH SCH ×4 (02:05→19:35)
[2017-01-01] MEDS: ALBUTEROL FS 2.5 MG/3 ML VIAL.NEB NEB SCH ×4 (02:05→19:35)
[2017-01-01] MEDS: BLOOD SUGAR DIAGNOSTIC 1 EACH STRIP IN SCH ×2 (05:26→17:19)
[2017-01-01] MEDS: LEVOTHYROXINE SODIUM 88 MCG TABLET GT SCH (05:26)
[2017-01-01] MEDS: PANTOPRAZOLE 40 MG/PACK PACK GT SCH (05:26)
[2017-01-01] MEDS: INSULIN REGULAR, HUMAN 100 UNIT/ML 3 ML VIAL SQ PRN ×2 (05:26→17:19)
[2017-01-01] MEDS: ASCORBIC ACID 500 MG TABLET GT SCH ×2 (09:00→20:10)
[2017-01-01] MEDS: LABETALOL HCL (100MG) 100 MG TABLET GT SCH ×2 (09:00→20:08)
[2017-01-01] MEDS: HYDROGEN PEROXIDE 480 ML BOTTLE TP SCH ×2 (09:00→20:10)
[2017-01-01] MEDS: COD LIVER OIL/ZINC OXIDE 120 GM TUBE TP SCH ×2 (09:00→20:10)
[2017-01-01] MEDS: HYDROGEL DRESSING 90 GM TUBE TP SCH ×2 (09:00→20:10)
[2017-01-01] MEDS: HYDROCORTISONE 1% CREAM 28.35 GM TUBE TP SCH (09:00)
[2017-01-01] MEDS: OMEGA GT SCH ×3 (09:59→16:55)
[2017-01-01] MEDS: PROSOURCE / PROSTAT (PYXIS) 30 ML UDC GT SCH ×3 (09:59→16:55)
[2017-01-01] MEDS: LACTOBACILLUS RHAMNOSUS GG 1 EACH CAP.SPRINK GT SCH (09:59)
[2017-01-01] MEDS: LEVETIRACETAM SOL (5 ML) 100 MG/ML UDC GT SCH ×2 (09:59→20:08)
[2017-01-01] MEDS: CARBOXYMETHYLCELLULOSE SODIUM 0.4 ML DROPERETTE EACHEYE SCH (09:59)
[2017-01-01] MEDS: CHOLESTYRAMINE/ASPARTAME 4 G/PKT PACKET GT SCH (12:00)
[2017-01-01] MEDS: GLYTROL 1,000 ML BAG GT PRN (14:34)
[2017-01-01] MEDS: MULTIVIT, IRON, MIN NO. 8, FA 1 TAB GT SCH (20:08)
[2017-01-01] MEDS: VALSARTAN 80 MG TABLET GT SCH (22:00)
[2017-01-02] VITALS (7 sets, daily range): BP systolic 101–116; BP diastolic 59–71
[2017-01-02] MEDS: ALBUTEROL FS 2.5 MG/3 ML VIAL.NEB NEB SCH ×4 (01:06→19:45)
[2017-01-02] MEDS: IPRATROPIUM NEB FS 0.5 MG/2.5 ML AMPUL.NEB IH SCH ×4 (01:06→19:45)
[2017-01-02] MEDS: PANTOPRAZOLE 40 MG/PACK PACK GT SCH (05:14)
[2017-01-02] MEDS: LEVOTHYROXINE SODIUM 88 MCG TABLET GT SCH (05:14)
[2017-01-02] MEDS: BLOOD SUGAR DIAGNOSTIC 1 EACH STRIP IN SCH ×2 (05:15→17:42)
[2017-01-02] MEDS: LABETALOL HCL (100MG) 100 MG TABLET GT SCH ×2 (09:00→20:06)
[2017-01-02] MEDS: CARBOXYMETHYLCELLULOSE SODIUM 0.4 ML DROPERETTE EACHEYE SCH (09:27)
[2017-01-02] MEDS: ASCORBIC ACID 500 MG TABLET GT SCH ×2 (09:27→20:07)
[2017-01-02] MEDS: PROSOURCE / PROSTAT (PYXIS) 30 ML UDC GT SCH ×3 (09:27→17:41)
[2017-01-02] MEDS: LACTOBACILLUS RHAMNOSUS GG 1 EACH CAP.SPRINK GT SCH (09:27)
[2017-01-02] MEDS: LEVETIRACETAM SOL (5 ML) 100 MG/ML UDC GT SCH ×2 (09:27→20:06)
[2017-01-02] MEDS: OMEGA GT SCH ×3 (09:27→17:41)
[2017-01-02] MEDS: COD LIVER OIL/ZINC OXIDE 120 GM TUBE TP SCH ×2 (09:28→20:07)
[2017-01-02] MEDS: HYDROGEL DRESSING 90 GM TUBE TP SCH ×2 (09:28→20:07)
[2017-01-02] MEDS: HYDROGEN PEROXIDE 480 ML BOTTLE TP SCH ×2 (09:28→20:07)
[2017-01-02] MEDS: CHOLESTYRAMINE/ASPARTAME 4 G/PKT PACKET GT SCH (12:00)
[2017-01-02] MEDS: GLYTROL 1,000 ML BAG GT PRN (13:35)
[2017-01-02] MEDS: INSULIN REGULAR, HUMAN 100 UNIT/ML 3 ML VIAL SQ PRN (17:42)
[2017-01-02] MEDS: MULTIVIT, IRON, MIN NO. 8, FA 1 TAB GT SCH (20:06)
[2017-01-02] MEDS: VALSARTAN 80 MG TABLET GT SCH (22:00)
[2017-01-03] VITALS (8 sets, daily range): BP systolic 103–120; BP diastolic 56–77
[2017-01-03] MEDS: ALBUTEROL FS 2.5 MG/3 ML VIAL.NEB NEB SCH ×4 (01:12→19:20)
[2017-01-03] MEDS: IPRATROPIUM NEB FS 0.5 MG/2.5 ML AMPUL.NEB IH SCH ×4 (01:12→19:20)
[2017-01-03] MEDS: LEVOTHYROXINE SODIUM 88 MCG TABLET GT SCH (05:11)
[2017-01-03] MEDS: BLOOD SUGAR DIAGNOSTIC 1 EACH STRIP IN SCH ×2 (05:12→18:31)
[2017-01-03] MEDS: PANTOPRAZOLE 40 MG/PACK PACK GT SCH (05:12)
[2017-01-03] MEDS: LEVETIRACETAM SOL (5 ML) 100 MG/ML UDC GT SCH ×2 (09:00→20:13)
[2017-01-03] MEDS: HYDROGEN PEROXIDE 480 ML BOTTLE TP SCH ×2 (09:00→20:14)
[2017-01-03] MEDS: ASCORBIC ACID 500 MG TABLET GT SCH ×2 (09:00→20:14)
[2017-01-03] MEDS: LACTOBACILLUS RHAMNOSUS GG 1 EACH CAP.SPRINK GT SCH (09:00)
[2017-01-03] MEDS: LABETALOL HCL (100MG) 100 MG TABLET GT SCH ×2 (09:00→20:13)
[2017-01-03] MEDS: OMEGA GT SCH ×3 (09:00→17:00)
[2017-01-03] MEDS: PROSOURCE / PROSTAT (PYXIS) 30 ML UDC GT SCH ×3 (09:00→17:00)
[2017-01-03] MEDS: COD LIVER OIL/ZINC OXIDE 120 GM TUBE TP SCH ×2 (09:00→20:14)
[2017-01-03] MEDS: HYDROGEL DRESSING 90 GM TUBE TP SCH ×2 (09:00→20:14)
[2017-01-03] MEDS: CARBOXYMETHYLCELLULOSE SODIUM 0.4 ML DROPERETTE EACHEYE SCH (09:00)
[2017-01-03] MEDS: CHOLESTYRAMINE/ASPARTAME 4 G/PKT PACKET GT SCH (12:00)
[2017-01-03] MEDS: GLYTROL 1,000 ML BAG GT PRN (13:23)
[2017-01-03] MEDS: INSULIN REGULAR, HUMAN 100 UNIT/ML 3 ML VIAL SQ PRN (18:31)
[2017-01-03] MEDS: MULTIVIT, IRON, MIN NO. 8, FA 1 TAB GT SCH (20:13)
[2017-01-03] MEDS: VALSARTAN 80 MG TABLET GT SCH (22:00)
[2017-01-04] VITALS (7 sets, daily range): BP systolic 109–124; BP diastolic 62–76
[2017-01-04] MEDS: ALBUTEROL FS 2.5 MG/3 ML VIAL.NEB NEB SCH ×4 (01:31→19:42)
[2017-01-04] MEDS: IPRATROPIUM NEB FS 0.5 MG/2.5 ML AMPUL.NEB IH SCH ×4 (01:31→19:42)
[2017-01-04] MEDS: GLYTROL 1,000 ML BAG GT PRN (04:48)
[2017-01-04] MEDS: LEVOTHYROXINE SODIUM 88 MCG TABLET GT SCH (05:12)
[2017-01-04] MEDS: BLOOD SUGAR DIAGNOSTIC 1 EACH STRIP IN SCH ×2 (05:12→18:22)
[2017-01-04] MEDS: PANTOPRAZOLE 40 MG/PACK PACK GT SCH (05:12)
[2017-01-04] MEDS: CARBOXYMETHYLCELLULOSE SODIUM 0.4 ML DROPERETTE EACHEYE SCH (09:44)
[2017-01-04] MEDS: ASCORBIC ACID 500 MG TABLET GT SCH ×2 (09:46→21:32)
[2017-01-04] MEDS: COD LIVER OIL/ZINC OXIDE 120 GM TUBE TP SCH ×2 (09:46→21:33)
[2017-01-04] MEDS: LACTOBACILLUS RHAMNOSUS GG 1 EACH CAP.SPRINK GT SCH (09:46)
[2017-01-04] MEDS: HYDROGEL DRESSING 90 GM TUBE TP SCH ×2 (09:46→21:32)
[2017-01-04] MEDS: LEVETIRACETAM SOL (5 ML) 100 MG/ML UDC GT SCH ×2 (09:46→21:32)
[2017-01-04] MEDS: LABETALOL HCL (100MG) 100 MG TABLET GT SCH ×2 (09:46→21:32)
[2017-01-04] MEDS: OMEGA GT SCH ×3 (09:46→16:38)
[2017-01-04] MEDS: PROSOURCE / PROSTAT (PYXIS) 30 ML UDC GT SCH ×3 (09:46→16:38)
[2017-01-04] MEDS: HYDROGEN PEROXIDE 480 ML BOTTLE TP SCH ×2 (09:47→21:33)
[2017-01-04] MEDS: CHOLESTYRAMINE/ASPARTAME 4 G/PKT PACKET GT SCH (12:00)
[2017-01-04] MEDS: MULTIVIT, IRON, MIN NO. 8, FA 1 TAB GT SCH (21:32)
[2017-01-04] MEDS: VALSARTAN 80 MG TABLET GT SCH (22:00)
[2017-01-05 01:00] VITALS: BP 111/69
[2017-01-05] MEDS: IPRATROPIUM NEB FS 0.5 MG/2.5 ML AMPUL.NEB IH SCH ×4 (02:29→20:05)
[2017-01-05] MEDS: ALBUTEROL FS 2.5 MG/3 ML VIAL.NEB NEB SCH ×4 (02:29→20:05)
[2017-01-05 05:31] VITALS: BP 114/67
[2017-01-05] MEDS: LEVOTHYROXINE SODIUM 88 MCG TABLET GT SCH (05:34)
[2017-01-05] MEDS: PANTOPRAZOLE 40 MG/PACK PACK GT SCH (05:34)
[2017-01-05] MEDS: BLOOD SUGAR DIAGNOSTIC 1 EACH STRIP IN SCH ×2 (05:34→18:28)
[2017-01-05] MEDS: INSULIN REGULAR, HUMAN 100 UNIT/ML 3 ML VIAL SQ PRN ×2 (05:35→18:31)
[2017-01-05] MEDS: GLYTROL 1,000 ML BAG GT PRN ×2 (05:36→06:56)
[2017-01-05 07:46] VITALS: BP 140/67
[2017-01-05] MEDS: OMEGA GT SCH ×3 (08:57→17:00)
[2017-01-05] MEDS: PROSOURCE / PROSTAT (PYXIS) 30 ML UDC GT SCH ×3 (08:57→17:00)
[2017-01-05] MEDS: CARBOXYMETHYLCELLULOSE SODIUM 0.4 ML DROPERETTE EACHEYE SCH (08:57)
[2017-01-05] MEDS: LABETALOL HCL (100MG) 100 MG TABLET GT SCH ×2 (08:57→21:28)
[2017-01-05] MEDS: LACTOBACILLUS RHAMNOSUS GG 1 EACH CAP.SPRINK GT SCH (08:57)
[2017-01-05] MEDS: LEVETIRACETAM SOL (5 ML) 100 MG/ML UDC GT SCH ×2 (08:57→21:28)
[2017-01-05] MEDS: HYDROGEL DRESSING 90 GM TUBE TP SCH ×2 (08:58→21:29)
[2017-01-05] MEDS: ASCORBIC ACID 500 MG TABLET GT SCH ×2 (08:58→21:28)
[2017-01-05] MEDS: COD LIVER OIL/ZINC OXIDE 120 GM TUBE TP SCH ×2 (09:08→21:29)
[2017-01-05] MEDS: HYDROGEN PEROXIDE 480 ML BOTTLE TP SCH ×2 (09:08→21:29)
--- NOTE | 2017-01-05 11:10 | NUR ---
Seen by Dr. Ramirez. Notified him that pt frequently urinates and moves her bowel, stools are soft and not watery. Received order to do BMP and UA. Addendum: 01/05/17 at 1132 by PER MARTEL RN Notiflouis Orellana.
--- NOTE | 2017-01-05 11:15 | NUR ---
Dr. Hernandezyan aware of 5 lb weight gain, decrease in GT feeding and increase in Prostat. Notified him that pt's daughter is thinking maybe Prostat is making the pt have more frequent bowel movements.
[2017-01-05] MEDS: CHOLESTYRAMINE/ASPARTAME 4 G/PKT PACKET GT SCH (12:00)
[2017-01-05 12:25] LABS: CALCIUM, SERUM 8.5 mg/dL (8.5-10.1); CARBON DIOXIDE 28 mmol/L (21-32); CHLORIDE 97 mmol/L (98-107); CREATININE 0.9 mg/dL (0.6-1.3); GLUCOSE 120 mg/dL (74-106); POTASSIUM 4.5 mmol/L (3.5-5.1); SODIUM SERUM 130 mmol/L (136-145); UREA NITROGEN, BLOOD 17 mg/dL (7-18)
[2017-01-05 17:35] LABS: APPEARANCE,URINE CLEAR (CLEAR); BILIRUBIN,URINE NEGATIVE (NEGATIVE); BLOOD, URINE NEGATIVE Ery/uL (NEGATIVE); COLOR,URINE YELLOW (YELLOW); KETONES,URINE NEGATIVE (NEGATIVE); LEUKOCYTE ESTERASE ,URINE NEGATIVE (NEGATIVE); NITRITE, URINE NEGATIVE (NEGATIVE); PH,URINE 5.5 (5.0-8.0); PROTEIN,URINE NEGATIVE (NEGATIVE); UGLUCOSE NEGATIVE (NEGATIVE); UROBILINOGEN,URINE 0.2 EU/dL (0.2)
--- NOTE | 2017-01-05 18:53 | NUR ---
Seen by SPECIAL NEEDS CAREGIVER Becca Smith. Relayed BMP result to her. No new order.
[2017-01-05 18:56] VITALS: BP 135/70
[2017-01-05 20:06] VITALS: BP 122/73
[2017-01-05] MEDS: MULTIVIT, IRON, MIN NO. 8, FA 1 TAB GT SCH (21:28)
[2017-01-05 21:40] VITALS: BP 122/73
[2017-01-05] MEDS: VALSARTAN 80 MG TABLET GT SCH (22:00)
[2017-01-06] VITALS (8 sets, daily range): BP systolic 98–128; BP diastolic 57–81
[2017-01-06] MEDS: IPRATROPIUM NEB FS 0.5 MG/2.5 ML AMPUL.NEB IH SCH ×4 (01:05→19:58)
[2017-01-06] MEDS: ALBUTEROL FS 2.5 MG/3 ML VIAL.NEB NEB SCH ×4 (01:05→19:58)
[2017-01-06] MEDS: PANTOPRAZOLE 40 MG/PACK PACK GT SCH (05:32)
[2017-01-06] MEDS: LEVOTHYROXINE SODIUM 88 MCG TABLET GT SCH (05:32)
[2017-01-06] MEDS: BLOOD SUGAR DIAGNOSTIC 1 EACH STRIP IN SCH ×2 (05:32→18:10)
[2017-01-06] MEDS: INSULIN REGULAR, HUMAN 100 UNIT/ML 3 ML VIAL SQ PRN (05:34)
[2017-01-06] MEDS: GLYTROL 1,000 ML BAG GT PRN (05:34)
--- NOTE | 2017-01-06 07:43 | NUR ---
Social Service Section of [employer] (3rd quarter) completed. Resident is non-communicative. Her daughters are involved in her care and visit frequently. Her DPOA is her daughter Reyna. Resident is DNR code status. DPOA/Dtr Reyna has decided not to currently initiate hospice care and resident will remain in subacute. Resident has a trach and g-tube and is receiving ROM exercises daily 5 days a week with skin checks every two hours to prevent redness or skin changes.
[2017-01-06] MEDS: LABETALOL HCL (100MG) 100 MG TABLET GT SCH ×2 (09:00→21:25)
[2017-01-06] MEDS: OMEGA GT SCH ×3 (09:38→17:00)
[2017-01-06] MEDS: PROSOURCE / PROSTAT (PYXIS) 30 ML UDC GT SCH ×3 (09:38→17:00)
[2017-01-06] MEDS: LACTOBACILLUS RHAMNOSUS GG 1 EACH CAP.SPRINK GT SCH (09:38)
[2017-01-06] MEDS: CARBOXYMETHYLCELLULOSE SODIUM 0.4 ML DROPERETTE EACHEYE SCH (09:38)
[2017-01-06] MEDS: LEVETIRACETAM SOL (5 ML) 100 MG/ML UDC GT SCH ×2 (09:38→21:25)
[2017-01-06] MEDS: ASCORBIC ACID 500 MG TABLET GT SCH ×2 (09:39→21:25)
[2017-01-06] MEDS: HYDROGEN PEROXIDE 480 ML BOTTLE TP SCH ×2 (09:39→21:27)
[2017-01-06] MEDS: COD LIVER OIL/ZINC OXIDE 120 GM TUBE TP SCH ×2 (09:39→21:26)
[2017-01-06] MEDS: HYDROGEL DRESSING 90 GM TUBE TP SCH ×2 (09:39→21:26)
[2017-01-06] MEDS: CHOLESTYRAMINE/ASPARTAME 4 G/PKT PACKET GT SCH (12:00)
[2017-01-06] MEDS: ACETAMINOPHEN 650 MG/20 ML UDC- FOR SA PATIENTS ONLY GT PRN (18:10)
[2017-01-06] MEDS: MULTIVIT, IRON, MIN NO. 8, FA 1 TAB GT SCH (21:25)
[2017-01-06] MEDS: VALSARTAN 80 MG TABLET GT SCH (22:45)
[2017-01-07] VITALS (8 sets, daily range): BP systolic 103–145; BP diastolic 48–83
[2017-01-07] MEDS: ALBUTEROL FS 2.5 MG/3 ML VIAL.NEB NEB SCH ×4 (01:06→19:38)
[2017-01-07] MEDS: IPRATROPIUM NEB FS 0.5 MG/2.5 ML AMPUL.NEB IH SCH ×4 (01:06→19:38)
[2017-01-07] MEDS: PANTOPRAZOLE 40 MG/PACK PACK GT SCH (05:28)
[2017-01-07] MEDS: LEVOTHYROXINE SODIUM 88 MCG TABLET GT SCH (05:28)
[2017-01-07] MEDS: BLOOD SUGAR DIAGNOSTIC 1 EACH STRIP IN SCH ×2 (05:28→18:33)
[2017-01-07] MEDS: INSULIN REGULAR, HUMAN 100 UNIT/ML 3 ML VIAL SQ PRN (05:28)
[2017-01-07] MEDS: GLYTROL 1,000 ML BAG GT PRN (05:51)
[2017-01-07] MEDS: LEVETIRACETAM SOL (5 ML) 100 MG/ML UDC GT SCH ×2 (09:00→20:41)
[2017-01-07] MEDS: LABETALOL HCL (100MG) 100 MG TABLET GT SCH ×2 (09:00→20:41)
[2017-01-07] MEDS: LACTOBACILLUS RHAMNOSUS GG 1 EACH CAP.SPRINK GT SCH (09:57)
[2017-01-07] MEDS: OMEGA GT SCH ×3 (09:57→16:40)
[2017-01-07] MEDS: CARBOXYMETHYLCELLULOSE SODIUM 0.4 ML DROPERETTE EACHEYE SCH (09:57)
[2017-01-07] MEDS: PROSOURCE / PROSTAT (PYXIS) 30 ML UDC GT SCH ×3 (09:57→16:40)
[2017-01-07] MEDS: HYDROGEN PEROXIDE 480 ML BOTTLE TP SCH ×2 (09:58→20:49)
[2017-01-07] MEDS: HYDROGEL DRESSING 90 GM TUBE TP SCH ×2 (09:58→20:48)
[2017-01-07] MEDS: COD LIVER OIL/ZINC OXIDE 120 GM TUBE TP SCH ×2 (09:58→20:48)
[2017-01-07] MEDS: ASCORBIC ACID 500 MG TABLET GT SCH ×2 (09:58→20:41)
[2017-01-07] MEDS: CHOLESTYRAMINE/ASPARTAME 4 G/PKT PACKET GT SCH (12:00)
[2017-01-07] MEDS: hydrALAZINE HCL 10 MG TABLET GT PRN (18:33)
[2017-01-07] MEDS: ACETAMINOPHEN 650 MG/20 ML UDC- FOR SA PATIENTS ONLY GT PRN (18:39)
[2017-01-07] MEDS: MULTIVIT, IRON, MIN NO. 8, FA 1 TAB GT SCH (20:43)
[2017-01-07] MEDS: VALSARTAN 80 MG TABLET GT SCH (22:00)
[2017-01-08 01:00] VITALS: BP 120/66
[2017-01-08] MEDS: IPRATROPIUM NEB FS 0.5 MG/2.5 ML AMPUL.NEB IH SCH ×4 (02:13→19:12)
[2017-01-08] MEDS: ALBUTEROL FS 2.5 MG/3 ML VIAL.NEB NEB SCH ×4 (02:13→19:12)
[2017-01-08 05:00] VITALS: BP 96/76
[2017-01-08] MEDS: PANTOPRAZOLE 40 MG/PACK PACK GT SCH (05:13)
[2017-01-08] MEDS: LEVOTHYROXINE SODIUM 88 MCG TABLET GT SCH (05:13)
[2017-01-08] MEDS: ACETAMINOPHEN 650 MG/20 ML UDC- FOR SA PATIENTS ONLY GT PRN (05:15)
[2017-01-08] MEDS: GLYTROL 1,000 ML BAG GT PRN (05:35)
[2017-01-08] MEDS: BLOOD SUGAR DIAGNOSTIC 1 EACH STRIP IN SCH ×2 (05:36→18:18)
[2017-01-08] MEDS: INSULIN REGULAR, HUMAN 100 UNIT/ML 3 ML VIAL SQ PRN (05:39)
--- NOTE | 2017-01-08 06:15 | NUR ---
RN NOTES PT TEMP AT 0515= 99.7F ADMINISTERED PRN TYLENOL 650MG VIA GT. RECHECKED AT 0615 = 99.0F WILL ENDORSE TO AM SHIFT
[2017-01-08 07:47] VITALS: BP 100/58
[2017-01-08] MEDS: OMEGA GT SCH ×3 (09:00→17:03)
[2017-01-08] MEDS: PROSOURCE / PROSTAT (PYXIS) 30 ML UDC GT SCH ×3 (09:00→17:03)
[2017-01-08] MEDS: LACTOBACILLUS RHAMNOSUS GG 1 EACH CAP.SPRINK GT SCH (09:00)
[2017-01-08] MEDS: LEVETIRACETAM SOL (5 ML) 100 MG/ML UDC GT SCH ×2 (09:00→20:10)
[2017-01-08] MEDS: ASCORBIC ACID 500 MG TABLET GT SCH ×2 (09:00→20:11)
[2017-01-08] MEDS: HYDROGEN PEROXIDE 480 ML BOTTLE TP SCH ×2 (09:00→20:12)
[2017-01-08] MEDS: COD LIVER OIL/ZINC OXIDE 120 GM TUBE TP SCH ×2 (09:00→20:12)
[2017-01-08] MEDS: LABETALOL HCL (100MG) 100 MG TABLET GT SCH ×2 (09:00→20:11)
[2017-01-08] MEDS: CARBOXYMETHYLCELLULOSE SODIUM 0.4 ML DROPERETTE EACHEYE SCH (09:00)
[2017-01-08] MEDS: HYDROGEL DRESSING 90 GM TUBE TP SCH ×2 (09:00→20:12)
[2017-01-08] MEDS: CHOLESTYRAMINE/ASPARTAME 4 G/PKT PACKET GT SCH (12:00)
[2017-01-08 17:38] VITALS: BP 116/67
[2017-01-08] MEDS: MULTIVIT, IRON, MIN NO. 8, FA 1 TAB GT SCH (20:10)
[2017-01-08 21:31] VITALS: BP 105/60
[2017-01-08] MEDS: VALSARTAN 80 MG TABLET GT SCH (22:00)
[2017-01-09 01:03] VITALS: BP 105/47
[2017-01-09] MEDS: IPRATROPIUM NEB FS 0.5 MG/2.5 ML AMPUL.NEB IH SCH ×4 (01:13→19:42)
[2017-01-09] MEDS: ALBUTEROL FS 2.5 MG/3 ML VIAL.NEB NEB SCH ×4 (01:13→19:42)
[2017-01-09] MEDS: LEVOTHYROXINE SODIUM 88 MCG TABLET GT SCH (05:10)
[2017-01-09] MEDS: PANTOPRAZOLE 40 MG/PACK PACK GT SCH (05:10)
[2017-01-09 05:15] VITALS: BP 109/63
[2017-01-09] MEDS: BLOOD SUGAR DIAGNOSTIC 1 EACH STRIP IN SCH ×2 (06:12→18:23)
[2017-01-09 08:04] VITALS: BP 114/54
[2017-01-09] MEDS: LABETALOL HCL (100MG) 100 MG TABLET GT SCH ×2 (09:00→20:13)
[2017-01-09] MEDS: OMEGA GT SCH ×3 (09:00→17:00)
[2017-01-09] MEDS: LEVETIRACETAM SOL (5 ML) 100 MG/ML UDC GT SCH ×2 (09:00→20:12)
[2017-01-09] MEDS: COD LIVER OIL/ZINC OXIDE 120 GM TUBE TP SCH ×2 (09:00→20:13)
[2017-01-09] MEDS: PROSOURCE / PROSTAT (PYXIS) 30 ML UDC GT SCH ×3 (09:00→17:00)
[2017-01-09] MEDS: HYDROGEL DRESSING 90 GM TUBE TP SCH ×2 (09:00→20:13)
[2017-01-09] MEDS: CARBOXYMETHYLCELLULOSE SODIUM 0.4 ML DROPERETTE EACHEYE SCH (09:00)
[2017-01-09] MEDS: LACTOBACILLUS RHAMNOSUS GG 1 EACH CAP.SPRINK GT SCH (09:00)
[2017-01-09] MEDS: ASCORBIC ACID 500 MG TABLET GT SCH ×2 (09:00→20:13)
[2017-01-09] MEDS: HYDROGEN PEROXIDE 480 ML BOTTLE TP SCH ×2 (09:00→20:13)
[2017-01-09] MEDS: CHOLESTYRAMINE/ASPARTAME 4 G/PKT PACKET GT SCH (12:00)
[2017-01-09] MEDS: INSULIN REGULAR, HUMAN 100 UNIT/ML 3 ML VIAL SQ PRN (18:23)
[2017-01-09 19:11] VITALS: BP 128/70
[2017-01-09] MEDS: MULTIVIT, IRON, MIN NO. 8, FA 1 TAB GT SCH (20:12)
[2017-01-09 21:18] VITALS: BP 128/78
[2017-01-09 21:29] VITALS: BP 128/78
[2017-01-09] MEDS: VALSARTAN 80 MG TABLET GT SCH (22:00)
[2017-01-10] VITALS (8 sets, daily range): BP systolic 97–124; BP diastolic 51–77
[2017-01-10] MEDS: ALBUTEROL FS 2.5 MG/3 ML VIAL.NEB NEB SCH ×4 (00:41→19:49)
[2017-01-10] MEDS: IPRATROPIUM NEB FS 0.5 MG/2.5 ML AMPUL.NEB IH SCH ×4 (00:41→19:49)
[2017-01-10] MEDS: LEVOTHYROXINE SODIUM 88 MCG TABLET GT SCH (05:13)
[2017-01-10] MEDS: PANTOPRAZOLE 40 MG/PACK PACK GT SCH (05:13)
[2017-01-10] MEDS: BLOOD SUGAR DIAGNOSTIC 1 EACH STRIP IN SCH ×2 (05:14→18:46)
[2017-01-10] MEDS: PROSOURCE / PROSTAT (PYXIS) 30 ML UDC GT SCH ×3 (09:43→17:00)
[2017-01-10] MEDS: CARBOXYMETHYLCELLULOSE SODIUM 0.4 ML DROPERETTE EACHEYE SCH (09:43)
[2017-01-10] MEDS: LEVETIRACETAM SOL (5 ML) 100 MG/ML UDC GT SCH ×2 (09:43→20:20)
[2017-01-10] MEDS: LACTOBACILLUS RHAMNOSUS GG 1 EACH CAP.SPRINK GT SCH (09:43)
[2017-01-10] MEDS: OMEGA GT SCH ×3 (09:43→17:00)
[2017-01-10] MEDS: LABETALOL HCL (100MG) 100 MG TABLET GT SCH ×2 (09:44→21:00)
[2017-01-10] MEDS: ASCORBIC ACID 500 MG TABLET GT SCH ×2 (09:46→20:20)
[2017-01-10] MEDS: HYDROGEL DRESSING 90 GM TUBE TP SCH ×2 (09:46→20:20)
[2017-01-10] MEDS: COD LIVER OIL/ZINC OXIDE 120 GM TUBE TP SCH ×2 (09:47→20:20)
[2017-01-10] MEDS: HYDROGEN PEROXIDE 480 ML BOTTLE TP SCH ×2 (09:47→20:21)
[2017-01-10] MEDS: CHOLESTYRAMINE/ASPARTAME 4 G/PKT PACKET GT SCH (12:59)
[2017-01-10] MEDS: INSULIN REGULAR, HUMAN 100 UNIT/ML 3 ML VIAL SQ PRN (18:46)
[2017-01-10] MEDS: MULTIVIT, IRON, MIN NO. 8, FA 1 TAB GT SCH (20:20)
[2017-01-10] MEDS: VALSARTAN 80 MG TABLET GT SCH (21:10)
[2017-01-11] VITALS (7 sets, daily range): BP systolic 101–119; BP diastolic 61–70
[2017-01-11] MEDS: ALBUTEROL FS 2.5 MG/3 ML VIAL.NEB NEB SCH ×4 (01:53→19:52)
[2017-01-11] MEDS: IPRATROPIUM NEB FS 0.5 MG/2.5 ML AMPUL.NEB IH SCH ×4 (01:53→19:52)
[2017-01-11] MEDS: BLOOD SUGAR DIAGNOSTIC 1 EACH STRIP IN SCH ×2 (05:18→18:29)
[2017-01-11] MEDS: LEVOTHYROXINE SODIUM 88 MCG TABLET GT SCH (05:18)
[2017-01-11] MEDS: PANTOPRAZOLE 40 MG/PACK PACK GT SCH (05:18)
[2017-01-11] MEDS: LABETALOL HCL (100MG) 100 MG TABLET GT SCH ×2 (09:00→20:13)
[2017-01-11] MEDS: HYDROGEL DRESSING 90 GM TUBE TP SCH ×2 (09:16→20:14)
[2017-01-11] MEDS: LEVETIRACETAM SOL (5 ML) 100 MG/ML UDC GT SCH ×2 (09:16→20:13)
[2017-01-11] MEDS: COD LIVER OIL/ZINC OXIDE 120 GM TUBE TP SCH ×2 (09:16→20:14)
[2017-01-11] MEDS: LACTOBACILLUS RHAMNOSUS GG 1 EACH CAP.SPRINK GT SCH (09:16)
[2017-01-11] MEDS: ASCORBIC ACID 500 MG TABLET GT SCH ×2 (09:16→20:14)
[2017-01-11] MEDS: CARBOXYMETHYLCELLULOSE SODIUM 0.4 ML DROPERETTE EACHEYE SCH (09:16)
[2017-01-11] MEDS: OMEGA GT SCH ×3 (09:16→16:35)
[2017-01-11] MEDS: PROSOURCE / PROSTAT (PYXIS) 30 ML UDC GT SCH ×3 (09:16→16:35)
[2017-01-11] MEDS: HYDROGEN PEROXIDE 480 ML BOTTLE TP SCH ×2 (09:16→20:14)
[2017-01-11] MEDS: CHOLESTYRAMINE/ASPARTAME 4 G/PKT PACKET GT SCH (12:10)
[2017-01-11] MEDS: MULTIVIT, IRON, MIN NO. 8, FA 1 TAB GT SCH (20:13)
[2017-01-11] MEDS: VALSARTAN 80 MG TABLET GT SCH (22:00)
[2017-01-12] VITALS (8 sets, daily range): BP systolic 102–144; BP diastolic 52–82
[2017-01-12] MEDS: IPRATROPIUM NEB FS 0.5 MG/2.5 ML AMPUL.NEB IH SCH ×4 (01:31→20:15)
[2017-01-12] MEDS: ALBUTEROL FS 2.5 MG/3 ML VIAL.NEB NEB SCH ×4 (01:31→20:15)
[2017-01-12] MEDS: LEVOTHYROXINE SODIUM 88 MCG TABLET GT SCH (05:43)
[2017-01-12] MEDS: PANTOPRAZOLE 40 MG/PACK PACK GT SCH (05:43)
[2017-01-12] MEDS: BLOOD SUGAR DIAGNOSTIC 1 EACH STRIP IN SCH ×2 (05:44→17:56)
[2017-01-12] MEDS: GLYTROL 1,000 ML BAG GT PRN (05:45)
[2017-01-12] MEDS: LABETALOL HCL (100MG) 100 MG TABLET GT SCH ×2 (09:00→21:14)
[2017-01-12] MEDS: OMEGA GT SCH ×3 (09:00→17:56)
[2017-01-12] MEDS: LEVETIRACETAM SOL (5 ML) 100 MG/ML UDC GT SCH ×2 (09:00→21:14)
[2017-01-12] MEDS: CARBOXYMETHYLCELLULOSE SODIUM 0.4 ML DROPERETTE EACHEYE SCH (09:00)
[2017-01-12] MEDS: COD LIVER OIL/ZINC OXIDE 120 GM TUBE TP SCH ×2 (09:00→21:15)
[2017-01-12] MEDS: ASCORBIC ACID 500 MG TABLET GT SCH ×2 (09:00→21:14)
[2017-01-12] MEDS: LACTOBACILLUS RHAMNOSUS GG 1 EACH CAP.SPRINK GT SCH (09:00)
[2017-01-12] MEDS: PROSOURCE / PROSTAT (PYXIS) 30 ML UDC GT SCH ×3 (09:54→17:56)
[2017-01-12] MEDS: CHOLESTYRAMINE/ASPARTAME 4 G/PKT PACKET GT SCH (12:02)
[2017-01-12] MEDS: HYDROGEL DRESSING 90 GM TUBE TP SCH ×2 (12:30→21:15)
[2017-01-12] MEDS: HYDROGEN PEROXIDE 480 ML BOTTLE TP SCH ×2 (12:30→21:15)
[2017-01-12] MEDS: MULTIVIT, IRON, MIN NO. 8, FA 1 TAB GT SCH (21:14)
[2017-01-12] MEDS: VALSARTAN 80 MG TABLET GT SCH (21:48)
[2017-01-13] VITALS (8 sets, daily range): BP systolic 105–127; BP diastolic 44–72
[2017-01-13] MEDS: ALBUTEROL FS 2.5 MG/3 ML VIAL.NEB NEB SCH ×4 (01:59→20:14)
[2017-01-13] MEDS: IPRATROPIUM NEB FS 0.5 MG/2.5 ML AMPUL.NEB IH SCH ×4 (01:59→20:14)
[2017-01-13] MEDS: PANTOPRAZOLE 40 MG/PACK PACK GT SCH (05:10)
[2017-01-13] MEDS: INSULIN REGULAR, HUMAN 100 UNIT/ML 3 ML VIAL SQ PRN (05:10)
[2017-01-13] MEDS: LEVOTHYROXINE SODIUM 88 MCG TABLET GT SCH (05:10)
[2017-01-13] MEDS: BLOOD SUGAR DIAGNOSTIC 1 EACH STRIP IN SCH ×2 (05:10→18:10)
[2017-01-13] MEDS: GLYTROL 1,000 ML BAG GT PRN (05:10)
[2017-01-13] MEDS: OMEGA GT SCH ×3 (08:54→17:00)
[2017-01-13] MEDS: LABETALOL HCL (100MG) 100 MG TABLET GT SCH ×2 (08:54→20:55)
[2017-01-13] MEDS: LEVETIRACETAM SOL (5 ML) 100 MG/ML UDC GT SCH ×2 (08:54→20:52)
[2017-01-13] MEDS: PROSOURCE / PROSTAT (PYXIS) 30 ML UDC GT SCH ×3 (08:54→17:00)
[2017-01-13] MEDS: CARBOXYMETHYLCELLULOSE SODIUM 0.4 ML DROPERETTE EACHEYE SCH (08:54)
[2017-01-13] MEDS: LACTOBACILLUS RHAMNOSUS GG 1 EACH CAP.SPRINK GT SCH (08:54)
[2017-01-13] MEDS: HYDROGEN PEROXIDE 480 ML BOTTLE TP SCH ×2 (08:55→20:56)
[2017-01-13] MEDS: ASCORBIC ACID 500 MG TABLET GT SCH ×2 (08:55→20:55)
[2017-01-13] MEDS: HYDROGEL DRESSING 90 GM TUBE TP SCH ×2 (08:55→20:55)
[2017-01-13] MEDS ORDERED: COD LIVER OIL/ZINC OXIDE 120 GM TUBE TP SCH ×2 (09:00)
[2017-01-13] MEDS: CHOLESTYRAMINE/ASPARTAME 4 G/PKT PACKET GT SCH (12:11)
[2017-01-13] MEDS: MULTIVIT, IRON, MIN NO. 8, FA 1 TAB GT SCH (20:52)
[2017-01-13] MEDS: COD LIVER OIL/ZINC OXIDE 120 GM TUBE TP SCH ×2 (20:55)
[2017-01-13] MEDS: VALSARTAN 80 MG TABLET GT SCH (21:18)
[2017-01-14] VITALS (7 sets, daily range): BP systolic 100–120; BP diastolic 51–78
[2017-01-14] MEDS: IPRATROPIUM NEB FS 0.5 MG/2.5 ML AMPUL.NEB IH SCH ×4 (01:13→20:17)
[2017-01-14] MEDS: ALBUTEROL FS 2.5 MG/3 ML VIAL.NEB NEB SCH ×4 (01:13→20:17)
[2017-01-14] MEDS: LEVOTHYROXINE SODIUM 88 MCG TABLET GT SCH (05:22)
[2017-01-14] MEDS: PANTOPRAZOLE 40 MG/PACK PACK GT SCH (05:22)
[2017-01-14] MEDS: GLYTROL 1,000 ML BAG GT PRN (05:22)
[2017-01-14] MEDS: BLOOD SUGAR DIAGNOSTIC 1 EACH STRIP IN SCH ×2 (05:22→17:49)
[2017-01-14] MEDS: INSULIN REGULAR, HUMAN 100 UNIT/ML 3 ML VIAL SQ PRN (05:23)
[2017-01-14] MEDS: COD LIVER OIL/ZINC OXIDE 120 GM TUBE TP SCH ×4 (09:00→20:52)
[2017-01-14] MEDS: OMEGA GT SCH ×3 (09:00→17:49)
[2017-01-14] MEDS: HYDROGEL DRESSING 90 GM TUBE TP SCH ×2 (09:00→20:52)
[2017-01-14] MEDS: LEVETIRACETAM SOL (5 ML) 100 MG/ML UDC GT SCH ×2 (09:00→20:51)
[2017-01-14] MEDS: HYDROGEN PEROXIDE 480 ML BOTTLE TP SCH ×2 (09:00→20:52)
[2017-01-14] MEDS: LACTOBACILLUS RHAMNOSUS GG 1 EACH CAP.SPRINK GT SCH (09:00)
[2017-01-14] MEDS: ASCORBIC ACID 500 MG TABLET GT SCH ×2 (09:00→20:52)
[2017-01-14] MEDS: PROSOURCE / PROSTAT (PYXIS) 30 ML UDC GT SCH ×3 (09:00→17:49)
[2017-01-14] MEDS: LABETALOL HCL (100MG) 100 MG TABLET GT SCH ×2 (09:00→20:52)
[2017-01-14] MEDS: CARBOXYMETHYLCELLULOSE SODIUM 0.4 ML DROPERETTE EACHEYE SCH (09:00)
[2017-01-14] MEDS: CHOLESTYRAMINE/ASPARTAME 4 G/PKT PACKET GT SCH (11:32)
[2017-01-14] MEDS: MULTIVIT, IRON, MIN NO. 8, FA 1 TAB GT SCH (20:51)
[2017-01-14] MEDS: VALSARTAN 80 MG TABLET GT SCH (21:39)
[2017-01-15] VITALS (7 sets, daily range): BP systolic 96–118; BP diastolic 60–70
[2017-01-15] MEDS: ALBUTEROL FS 2.5 MG/3 ML VIAL.NEB NEB SCH ×4 (02:17→20:05)
[2017-01-15] MEDS: IPRATROPIUM NEB FS 0.5 MG/2.5 ML AMPUL.NEB IH SCH ×4 (02:17→20:05)
[2017-01-15] MEDS: PANTOPRAZOLE 40 MG/PACK PACK GT SCH (05:18)
[2017-01-15] MEDS: BLOOD SUGAR DIAGNOSTIC 1 EACH STRIP IN SCH ×2 (05:18→17:14)
[2017-01-15] MEDS: LEVOTHYROXINE SODIUM 88 MCG TABLET GT SCH (05:18)
[2017-01-15] MEDS: INSULIN REGULAR, HUMAN 100 UNIT/ML 3 ML VIAL SQ PRN (05:18)
[2017-01-15] MEDS: GLYTROL 1,000 ML BAG GT PRN (05:18)
[2017-01-15] MEDS: ASCORBIC ACID 500 MG TABLET GT SCH ×2 (09:00→21:15)
[2017-01-15] MEDS: HYDROGEN PEROXIDE 480 ML BOTTLE TP SCH ×2 (09:00→21:15)
[2017-01-15] MEDS: PROSOURCE / PROSTAT (PYXIS) 30 ML UDC GT SCH ×3 (09:00→17:14)
[2017-01-15] MEDS: HYDROGEL DRESSING 90 GM TUBE TP SCH ×2 (09:00→21:15)
[2017-01-15] MEDS: LACTOBACILLUS RHAMNOSUS GG 1 EACH CAP.SPRINK GT SCH (09:00)
[2017-01-15] MEDS: LABETALOL HCL (100MG) 100 MG TABLET GT SCH ×2 (09:00→21:15)
[2017-01-15] MEDS: COD LIVER OIL/ZINC OXIDE 120 GM TUBE TP SCH ×4 (09:00→21:15)
[2017-01-15] MEDS: OMEGA GT SCH ×3 (09:00→17:14)
[2017-01-15] MEDS: LEVETIRACETAM SOL (5 ML) 100 MG/ML UDC GT SCH ×2 (09:00→21:14)
[2017-01-15] MEDS: CARBOXYMETHYLCELLULOSE SODIUM 0.4 ML DROPERETTE EACHEYE SCH (09:00)
[2017-01-15] MEDS: CHOLESTYRAMINE/ASPARTAME 4 G/PKT PACKET GT SCH (12:24)
[2017-01-15] MEDS: MULTIVIT, IRON, MIN NO. 8, FA 1 TAB GT SCH (21:14)
[2017-01-15] MEDS: VALSARTAN 80 MG TABLET GT SCH (21:15)
[2017-01-16] VITALS (7 sets, daily range): BP systolic 112–143; BP diastolic 58–77
[2017-01-16] MEDS: ALBUTEROL FS 2.5 MG/3 ML VIAL.NEB NEB SCH ×4 (01:44→20:10)
[2017-01-16] MEDS: IPRATROPIUM NEB FS 0.5 MG/2.5 ML AMPUL.NEB IH SCH ×4 (01:44→20:10)
[2017-01-16] MEDS: LEVOTHYROXINE SODIUM 88 MCG TABLET GT SCH (05:08)
[2017-01-16] MEDS: PANTOPRAZOLE 40 MG/PACK PACK GT SCH (05:08)
[2017-01-16] MEDS: BLOOD SUGAR DIAGNOSTIC 1 EACH STRIP IN SCH ×2 (06:00→17:29)
[2017-01-16] MEDS: GLYTROL 1,000 ML BAG GT PRN (06:18)
[2017-01-16] MEDS: HYDROGEN PEROXIDE 480 ML BOTTLE TP SCH ×2 (09:00→21:28)
[2017-01-16] MEDS: HYDROGEL DRESSING 90 GM TUBE TP SCH ×2 (09:00→21:27)
[2017-01-16] MEDS: COD LIVER OIL/ZINC OXIDE 120 GM TUBE TP SCH ×4 (09:00→21:28)
[2017-01-16] MEDS: LEVETIRACETAM SOL (5 ML) 100 MG/ML UDC GT SCH ×2 (09:12→21:27)
[2017-01-16] MEDS: LACTOBACILLUS RHAMNOSUS GG 1 EACH CAP.SPRINK GT SCH (09:12)
[2017-01-16] MEDS: OMEGA GT SCH ×3 (09:12→17:29)
[2017-01-16] MEDS: PROSOURCE / PROSTAT (PYXIS) 30 ML UDC GT SCH ×3 (09:12→17:29)
[2017-01-16] MEDS: LABETALOL HCL (100MG) 100 MG TABLET GT SCH ×2 (09:13→21:27)
[2017-01-16] MEDS: ASCORBIC ACID 500 MG TABLET GT SCH ×2 (09:13→21:27)
[2017-01-16] MEDS: CARBOXYMETHYLCELLULOSE SODIUM 0.4 ML DROPERETTE EACHEYE SCH (09:31)
[2017-01-16] MEDS: CHOLESTYRAMINE/ASPARTAME 4 G/PKT PACKET GT SCH (12:00)
[2017-01-16] MEDS: INSULIN REGULAR, HUMAN 100 UNIT/ML 3 ML VIAL SQ PRN (17:31)
[2017-01-16] MEDS: MULTIVIT, IRON, MIN NO. 8, FA 1 TAB GT SCH (21:27)
[2017-01-16] MEDS: VALSARTAN 80 MG TABLET GT SCH (21:28)
[2017-01-17 01:00] VITALS: BP 130/66
[2017-01-17] MEDS: ALBUTEROL FS 2.5 MG/3 ML VIAL.NEB NEB SCH ×4 (02:03→19:38)
[2017-01-17] MEDS: IPRATROPIUM NEB FS 0.5 MG/2.5 ML AMPUL.NEB IH SCH ×4 (02:03→19:38)
[2017-01-17 05:07] VITALS: BP 132/66
[2017-01-17] MEDS: LEVOTHYROXINE SODIUM 88 MCG TABLET GT SCH (06:05)
[2017-01-17] MEDS: PANTOPRAZOLE 40 MG/PACK PACK GT SCH (06:05)
[2017-01-17] MEDS: BLOOD SUGAR DIAGNOSTIC 1 EACH STRIP IN SCH ×2 (06:28→18:00)
[2017-01-17] MEDS: GLYTROL 1,000 ML BAG GT PRN (06:46)
[2017-01-17 09:00] VITALS: BP 108/59
[2017-01-17] MEDS: CARBOXYMETHYLCELLULOSE SODIUM 0.4 ML DROPERETTE EACHEYE SCH (09:23)
[2017-01-17] MEDS: LEVETIRACETAM SOL (5 ML) 100 MG/ML UDC GT SCH ×2 (09:26→21:16)
[2017-01-17] MEDS: PROSOURCE / PROSTAT (PYXIS) 30 ML UDC GT SCH ×3 (09:26→17:00)
[2017-01-17] MEDS: LABETALOL HCL (100MG) 100 MG TABLET GT SCH ×2 (09:26→21:00)
[2017-01-17] MEDS: LACTOBACILLUS RHAMNOSUS GG 1 EACH CAP.SPRINK GT SCH (09:26)
[2017-01-17] MEDS: HYDROGEL DRESSING 90 GM TUBE TP SCH ×2 (09:27→21:17)
[2017-01-17] MEDS: COD LIVER OIL/ZINC OXIDE 120 GM TUBE TP SCH ×4 (09:27→21:17)
[2017-01-17] MEDS: ASCORBIC ACID 500 MG TABLET GT SCH ×2 (09:27→21:17)
[2017-01-17] MEDS: HYDROGEN PEROXIDE 480 ML BOTTLE TP SCH ×2 (09:27→21:18)
[2017-01-17] MEDS: OMEGA GT SCH ×2 (09:28→17:00)
[2017-01-17] MEDS: CHOLESTYRAMINE/ASPARTAME 4 G/PKT PACKET GT SCH (12:37)
[2017-01-17 20:25] VITALS: BP 90/40
[2017-01-17] MEDS: MULTIVIT, IRON, MIN NO. 8, FA 1 TAB GT SCH (21:16)
[2017-01-17] MEDS: VALSARTAN 80 MG TABLET GT SCH (21:18)
[2017-01-17 23:47] VITALS: BP 100/60
[2017-01-18] VITALS (7 sets, daily range): BP systolic 106–122; BP diastolic 56–65
[2017-01-18] MEDS: IPRATROPIUM NEB FS 0.5 MG/2.5 ML AMPUL.NEB IH SCH ×4 (01:04→19:45)
[2017-01-18] MEDS: ALBUTEROL FS 2.5 MG/3 ML VIAL.NEB NEB SCH ×4 (01:04→19:45)
[2017-01-18] MEDS: LEVOTHYROXINE SODIUM 88 MCG TABLET GT SCH (06:02)
[2017-01-18] MEDS: PANTOPRAZOLE 40 MG/PACK PACK GT SCH (06:02)
[2017-01-18] MEDS: BLOOD SUGAR DIAGNOSTIC 1 EACH STRIP IN SCH ×2 (06:15→17:07)
[2017-01-18] MEDS: GLYTROL 1,000 ML BAG GT PRN (06:16)
[2017-01-18] MEDS: LACTOBACILLUS RHAMNOSUS GG 1 EACH CAP.SPRINK GT SCH (09:04)
[2017-01-18] MEDS: OMEGA GT SCH ×3 (09:05→17:07)
[2017-01-18] MEDS: PROSOURCE / PROSTAT (PYXIS) 30 ML UDC GT SCH ×3 (09:05→17:07)
[2017-01-18] MEDS: COD LIVER OIL/ZINC OXIDE 120 GM TUBE TP SCH ×4 (09:06→21:40)
[2017-01-18] MEDS: HYDROGEN PEROXIDE 480 ML BOTTLE TP SCH ×2 (09:06→21:40)
[2017-01-18] MEDS: LABETALOL HCL (100MG) 100 MG TABLET GT SCH ×2 (09:06→21:00)
[2017-01-18] MEDS: ASCORBIC ACID 500 MG TABLET GT SCH ×2 (09:06→21:40)
[2017-01-18] MEDS: HYDROGEL DRESSING 90 GM TUBE TP SCH ×2 (09:06→21:40)
[2017-01-18] MEDS: CARBOXYMETHYLCELLULOSE SODIUM 0.4 ML DROPERETTE EACHEYE SCH (09:07)
[2017-01-18] MEDS: LEVETIRACETAM SOL (5 ML) 100 MG/ML UDC GT SCH ×2 (09:07→21:39)
[2017-01-18] MEDS: CHOLESTYRAMINE/ASPARTAME 4 G/PKT PACKET GT SCH (12:00)
--- NOTE | 2017-01-18 17:00 | NUR ---
Daughter Reyna notified of temporary room change due to installation of new call light system in the room.
[2017-01-18] MEDS: VALSARTAN 80 MG TABLET GT SCH (21:40)
[2017-01-18] MEDS: MULTIVIT, IRON, MIN NO. 8, FA 1 TAB GT SCH (21:41)
[2017-01-19] VITALS (8 sets, daily range): BP systolic 107–122; BP diastolic 55–63
[2017-01-19] MEDS: ALBUTEROL FS 2.5 MG/3 ML VIAL.NEB NEB SCH ×4 (02:02→19:42)
[2017-01-19] MEDS: IPRATROPIUM NEB FS 0.5 MG/2.5 ML AMPUL.NEB IH SCH ×4 (02:02→19:42)
[2017-01-19] MEDS: PANTOPRAZOLE 40 MG/PACK PACK GT SCH (06:03)
[2017-01-19] MEDS: LEVOTHYROXINE SODIUM 88 MCG TABLET GT SCH (06:03)
[2017-01-19] MEDS: BLOOD SUGAR DIAGNOSTIC 1 EACH STRIP IN SCH ×2 (06:03→17:16)
[2017-01-19] MEDS: LEVETIRACETAM SOL (5 ML) 100 MG/ML UDC GT SCH ×2 (08:59→21:19)
[2017-01-19] MEDS: OMEGA GT SCH ×3 (08:59→17:21)
[2017-01-19] MEDS: PROSOURCE / PROSTAT (PYXIS) 30 ML UDC GT SCH ×3 (08:59→17:21)
[2017-01-19] MEDS: LACTOBACILLUS RHAMNOSUS GG 1 EACH CAP.SPRINK GT SCH (08:59)
[2017-01-19] MEDS: CARBOXYMETHYLCELLULOSE SODIUM 0.4 ML DROPERETTE EACHEYE SCH (09:00)
[2017-01-19] MEDS: LABETALOL HCL (100MG) 100 MG TABLET GT SCH ×2 (09:00→21:19)
[2017-01-19] MEDS: ASCORBIC ACID 500 MG TABLET GT SCH ×2 (09:00→21:19)
[2017-01-19] MEDS: HYDROGEN PEROXIDE 480 ML BOTTLE TP SCH ×2 (09:01→21:20)
[2017-01-19] MEDS: HYDROGEL DRESSING 90 GM TUBE TP SCH ×2 (09:01→21:19)
[2017-01-19] MEDS: COD LIVER OIL/ZINC OXIDE 120 GM TUBE TP SCH ×4 (09:01→21:20)
[2017-01-19] MEDS: CHOLESTYRAMINE/ASPARTAME 4 G/PKT PACKET GT SCH (12:00)
[2017-01-19] MEDS: MULTIVIT, IRON, MIN NO. 8, FA 1 TAB GT SCH (21:19)
[2017-01-19] MEDS: VALSARTAN 80 MG TABLET GT SCH (22:00)
[2017-01-20] VITALS (7 sets, daily range): BP systolic 96–116; BP diastolic 52–73
[2017-01-20] MEDS: ALBUTEROL FS 2.5 MG/3 ML VIAL.NEB NEB SCH ×4 (00:41→19:20)
[2017-01-20] MEDS: IPRATROPIUM NEB FS 0.5 MG/2.5 ML AMPUL.NEB IH SCH ×4 (00:41→19:20)
[2017-01-20] MEDS: GLYTROL 1,000 ML BAG GT PRN (04:57)
[2017-01-20] MEDS: PANTOPRAZOLE 40 MG/PACK PACK GT SCH (05:08)
[2017-01-20] MEDS: LEVOTHYROXINE SODIUM 88 MCG TABLET GT SCH (05:08)
[2017-01-20] MEDS: BLOOD SUGAR DIAGNOSTIC 1 EACH STRIP IN SCH (05:08)
[2017-01-20] MEDS: INSULIN REGULAR, HUMAN 100 UNIT/ML 3 ML VIAL SQ PRN (05:09)
[2017-01-20] MEDS: LABETALOL HCL (100MG) 100 MG TABLET GT SCH ×2 (09:00→20:54)
[2017-01-20] MEDS: LACTOBACILLUS RHAMNOSUS GG 1 EACH CAP.SPRINK GT SCH (09:07)
[2017-01-20] MEDS: PROSOURCE / PROSTAT (PYXIS) 30 ML UDC GT SCH ×3 (09:07→17:45)
[2017-01-20] MEDS: OMEGA GT SCH ×3 (09:07→17:45)
[2017-01-20] MEDS: CARBOXYMETHYLCELLULOSE SODIUM 0.4 ML DROPERETTE EACHEYE SCH (09:07)
[2017-01-20] MEDS: LEVETIRACETAM SOL (5 ML) 100 MG/ML UDC GT SCH ×2 (09:07→20:53)
[2017-01-20] MEDS: HYDROGEL DRESSING 90 GM TUBE TP SCH ×2 (09:08→20:54)
[2017-01-20] MEDS: ASCORBIC ACID 500 MG TABLET GT SCH ×2 (09:08→20:54)
[2017-01-20] MEDS: HYDROGEN PEROXIDE 480 ML BOTTLE TP SCH ×2 (09:08→20:54)
[2017-01-20] MEDS: COD LIVER OIL/ZINC OXIDE 120 GM TUBE TP SCH ×4 (09:08→20:54)
[2017-01-20] MEDS: CHOLESTYRAMINE/ASPARTAME 4 G/PKT PACKET GT SCH (12:40)
--- NOTE | 2017-01-20 14:02 | NUR ---
IDT meeting held, resident's daughter participated in the meeting via telephone conference. Reviewed current and new orders, treatment and labs. New order given to DC FSBS Q 12 hours due to patient not been receiving coverage. Resident's daughter Reyna gave consent to give flu vaccine. Dr. Ramirez gave order for flu vaccine.
[2017-01-20] MEDS: MULTIVIT, IRON, MIN NO. 8, FA 1 TAB GT SCH (20:53)
[2017-01-20] MEDS: VALSARTAN 80 MG TABLET GT SCH (21:16)
[2017-01-21] VITALS (8 sets, daily range): BP systolic 101–120; BP diastolic 52–77
[2017-01-21] MEDS: IPRATROPIUM NEB FS 0.5 MG/2.5 ML AMPUL.NEB IH SCH ×4 (01:06→19:09)
[2017-01-21] MEDS: ALBUTEROL FS 2.5 MG/3 ML VIAL.NEB NEB SCH ×4 (01:06→19:09)
[2017-01-21] MEDS: PANTOPRAZOLE 40 MG/PACK PACK GT SCH (05:06)
[2017-01-21] MEDS: LEVOTHYROXINE SODIUM 88 MCG TABLET GT SCH (05:06)
[2017-01-21] MEDS: GLYTROL 1,000 ML BAG GT PRN (05:06)
[2017-01-21] MEDS: CARBOXYMETHYLCELLULOSE SODIUM 0.4 ML DROPERETTE EACHEYE SCH (08:56)
[2017-01-21] MEDS: PROSOURCE / PROSTAT (PYXIS) 30 ML UDC GT SCH ×3 (08:56→16:29)
[2017-01-21] MEDS: ASCORBIC ACID 500 MG TABLET GT SCH ×2 (08:56→20:48)
[2017-01-21] MEDS: HYDROGEN PEROXIDE 480 ML BOTTLE TP SCH ×2 (08:56→20:48)
[2017-01-21] MEDS: LEVETIRACETAM SOL (5 ML) 100 MG/ML UDC GT SCH ×2 (08:56→20:48)
[2017-01-21] MEDS: OMEGA GT SCH ×3 (08:56→16:29)
[2017-01-21] MEDS: LACTOBACILLUS RHAMNOSUS GG 1 EACH CAP.SPRINK GT SCH (08:56)
[2017-01-21] MEDS: HYDROGEL DRESSING 90 GM TUBE TP SCH ×2 (08:56→20:48)
[2017-01-21] MEDS: COD LIVER OIL/ZINC OXIDE 120 GM TUBE TP SCH ×4 (08:56→20:48)
[2017-01-21] MEDS: LABETALOL HCL (100MG) 100 MG TABLET GT SCH ×2 (08:56→20:48)
[2017-01-21] MEDS: CHOLESTYRAMINE/ASPARTAME 4 G/PKT PACKET GT SCH (12:46)
[2017-01-21] MEDS: MULTIVIT, IRON, MIN NO. 8, FA 1 TAB GT SCH (20:48)
[2017-01-21] MEDS: VALSARTAN 80 MG TABLET GT SCH (21:23)
[2017-01-22] MEDS: ALBUTEROL FS 2.5 MG/3 ML VIAL.NEB NEB SCH ×4 (01:37→19:44)
[2017-01-22] MEDS: IPRATROPIUM NEB FS 0.5 MG/2.5 ML AMPUL.NEB IH SCH ×4 (01:37→19:44)
[2017-01-22 02:09] VITALS: BP 117/62
[2017-01-22 05:15] VITALS: BP 116/61
[2017-01-22] MEDS: GLYTROL 1,000 ML BAG GT PRN (05:16)
[2017-01-22] MEDS: LEVOTHYROXINE SODIUM 88 MCG TABLET GT SCH (05:16)
[2017-01-22] MEDS: PANTOPRAZOLE 40 MG/PACK PACK GT SCH (05:16)
[2017-01-22 08:00] VITALS: BP 111/57
[2017-01-22] MEDS: CARBOXYMETHYLCELLULOSE SODIUM 0.4 ML DROPERETTE EACHEYE SCH (08:34)
[2017-01-22] MEDS: PROSOURCE / PROSTAT (PYXIS) 30 ML UDC GT SCH ×3 (08:34→16:41)
[2017-01-22] MEDS: LEVETIRACETAM SOL (5 ML) 100 MG/ML UDC GT SCH ×2 (08:34→21:23)
[2017-01-22] MEDS: OMEGA GT SCH ×3 (08:34→16:41)
[2017-01-22] MEDS: LACTOBACILLUS RHAMNOSUS GG 1 EACH CAP.SPRINK GT SCH (08:34)
[2017-01-22] MEDS: HYDROGEL DRESSING 90 GM TUBE TP SCH ×2 (08:35→21:24)
[2017-01-22] MEDS: ASCORBIC ACID 500 MG TABLET GT SCH ×2 (08:35→21:24)
[2017-01-22] MEDS: HYDROGEN PEROXIDE 480 ML BOTTLE TP SCH ×2 (08:35→21:24)
[2017-01-22] MEDS: COD LIVER OIL/ZINC OXIDE 120 GM TUBE TP SCH ×4 (08:35→21:24)
[2017-01-22] MEDS: LABETALOL HCL (100MG) 100 MG TABLET GT SCH ×2 (08:35→21:24)
[2017-01-22] MEDS: CHOLESTYRAMINE/ASPARTAME 4 G/PKT PACKET GT SCH (12:25)
[2017-01-22 14:19] VITALS: BP 112/55
[2017-01-22] MEDS ORDERED: FLU VACC QS 2017-18(36MOS+)/PF 0.5 ML DISP.SYRIN IM ONE (17:00)
[2017-01-22 18:30] VITALS: BP 114/69
[2017-01-22 21:22] VITALS: BP 120/60
[2017-01-22] MEDS: MULTIVIT, IRON, MIN NO. 8, FA 1 TAB GT SCH (21:23)
[2017-01-22] MEDS: VALSARTAN 80 MG TABLET GT SCH (21:24)
[2017-01-23] VITALS (7 sets, daily range): BP systolic 106–129; BP diastolic 56–77
[2017-01-23] MEDS: IPRATROPIUM NEB FS 0.5 MG/2.5 ML AMPUL.NEB IH SCH ×4 (01:31→19:05)
[2017-01-23] MEDS: ALBUTEROL FS 2.5 MG/3 ML VIAL.NEB NEB SCH ×4 (01:31→19:05)
[2017-01-23] MEDS: LEVOTHYROXINE SODIUM 88 MCG TABLET GT SCH (05:47)
[2017-01-23] MEDS: PANTOPRAZOLE 40 MG/PACK PACK GT SCH (05:47)
[2017-01-23] MEDS: GLYTROL 1,000 ML BAG GT PRN (05:47)
[2017-01-23] MEDS: HYDROGEN PEROXIDE 480 ML BOTTLE TP SCH ×2 (09:00→21:13)
[2017-01-23] MEDS: HYDROGEL DRESSING 90 GM TUBE TP SCH ×2 (09:00→21:13)
[2017-01-23] MEDS: COD LIVER OIL/ZINC OXIDE 120 GM TUBE TP SCH ×4 (09:00→21:13)
[2017-01-23] MEDS: LACTOBACILLUS RHAMNOSUS GG 1 EACH CAP.SPRINK GT SCH (09:40)
[2017-01-23] MEDS: CARBOXYMETHYLCELLULOSE SODIUM 0.4 ML DROPERETTE EACHEYE SCH (09:40)
[2017-01-23] MEDS: OMEGA GT SCH ×3 (09:41→16:54)
[2017-01-23] MEDS: ASCORBIC ACID 500 MG TABLET GT SCH ×2 (09:41→21:13)
[2017-01-23] MEDS: LABETALOL HCL (100MG) 100 MG TABLET GT SCH ×2 (09:41→21:13)
[2017-01-23] MEDS: PROSOURCE / PROSTAT (PYXIS) 30 ML UDC GT SCH ×3 (09:41→16:54)
[2017-01-23] MEDS: LEVETIRACETAM SOL (5 ML) 100 MG/ML UDC GT SCH ×2 (09:41→21:12)
[2017-01-23] MEDS: CHOLESTYRAMINE/ASPARTAME 4 G/PKT PACKET GT SCH (12:09)
--- NOTE | 2017-01-23 18:11 | NUR ---
No adverse reaction to flu vaccine noted.
[2017-01-23] MEDS: MULTIVIT, IRON, MIN NO. 8, FA 1 TAB GT SCH (21:12)
[2017-01-23] MEDS: VALSARTAN 80 MG TABLET GT SCH (21:14)
[2017-01-24] VITALS (8 sets, daily range): BP systolic 114–125; BP diastolic 55–72
[2017-01-24] MEDS: IPRATROPIUM NEB FS 0.5 MG/2.5 ML AMPUL.NEB IH SCH ×4 (01:26→19:07)
[2017-01-24] MEDS: ALBUTEROL FS 2.5 MG/3 ML VIAL.NEB NEB SCH ×4 (01:26→19:07)
[2017-01-24] MEDS: PANTOPRAZOLE 40 MG/PACK PACK GT SCH (05:39)
[2017-01-24] MEDS: LEVOTHYROXINE SODIUM 88 MCG TABLET GT SCH (05:39)
[2017-01-24] MEDS: CARBOXYMETHYLCELLULOSE SODIUM 0.4 ML DROPERETTE EACHEYE SCH (09:18)
[2017-01-24] MEDS: LACTOBACILLUS RHAMNOSUS GG 1 EACH CAP.SPRINK GT SCH (09:19)
[2017-01-24] MEDS: PROSOURCE / PROSTAT (PYXIS) 30 ML UDC GT SCH ×3 (09:20→17:28)
[2017-01-24] MEDS: OMEGA GT SCH ×3 (09:20→17:29)
[2017-01-24] MEDS: LEVETIRACETAM SOL (5 ML) 100 MG/ML UDC GT SCH ×2 (09:20→21:13)
[2017-01-24] MEDS: LABETALOL HCL (100MG) 100 MG TABLET GT SCH ×2 (09:21→21:13)
[2017-01-24] MEDS: ASCORBIC ACID 500 MG TABLET GT SCH ×2 (09:22→21:13)
[2017-01-24] MEDS: COD LIVER OIL/ZINC OXIDE 120 GM TUBE TP SCH ×4 (09:22→21:13)
[2017-01-24] MEDS: HYDROGEL DRESSING 90 GM TUBE TP SCH ×2 (11:00→21:13)
[2017-01-24] MEDS: HYDROGEN PEROXIDE 480 ML BOTTLE TP SCH ×2 (11:00→21:14)
[2017-01-24] MEDS: CHOLESTYRAMINE/ASPARTAME 4 G/PKT PACKET GT SCH (12:54)
--- NOTE | 2017-01-24 19:06 | NUR ---
No adverse reaction to flu vaccine noted.
[2017-01-24] MEDS: MULTIVIT, IRON, MIN NO. 8, FA 1 TAB GT SCH (21:13)
[2017-01-24] MEDS: VALSARTAN 80 MG TABLET GT SCH (21:14)
[2017-01-25] VITALS (8 sets, daily range): BP systolic 107–117; BP diastolic 51–78
[2017-01-25] MEDS: ALBUTEROL FS 2.5 MG/3 ML VIAL.NEB NEB SCH ×4 (01:30→19:52)
[2017-01-25] MEDS: IPRATROPIUM NEB FS 0.5 MG/2.5 ML AMPUL.NEB IH SCH ×4 (01:30→19:52)
[2017-01-25] MEDS: PANTOPRAZOLE 40 MG/PACK PACK GT SCH (05:29)
[2017-01-25] MEDS: LEVOTHYROXINE SODIUM 88 MCG TABLET GT SCH (05:29)
[2017-01-25] MEDS: GLYTROL 1,000 ML BAG GT PRN (05:59)
[2017-01-25] MEDS: LABETALOL HCL (100MG) 100 MG TABLET GT SCH ×2 (09:00→21:00)
[2017-01-25] MEDS: HYDROGEN PEROXIDE 480 ML BOTTLE TP SCH ×2 (09:09→21:12)
[2017-01-25] MEDS: HYDROGEL DRESSING 90 GM TUBE TP SCH ×2 (09:09→21:12)
[2017-01-25] MEDS: PROSOURCE / PROSTAT (PYXIS) 30 ML UDC GT SCH ×3 (09:10→16:38)
[2017-01-25] MEDS: OMEGA GT SCH ×3 (09:11→16:38)
[2017-01-25] MEDS: ASCORBIC ACID 500 MG TABLET GT SCH ×2 (09:14→21:12)
[2017-01-25] MEDS: CARBOXYMETHYLCELLULOSE SODIUM 0.4 ML DROPERETTE EACHEYE SCH (09:15)
[2017-01-25] MEDS: COD LIVER OIL/ZINC OXIDE 120 GM TUBE TP SCH ×4 (09:20→21:12)
[2017-01-25] MEDS: LEVETIRACETAM SOL (5 ML) 100 MG/ML UDC GT SCH ×2 (09:21→21:11)
[2017-01-25] MEDS: LACTOBACILLUS RHAMNOSUS GG 1 EACH CAP.SPRINK GT SCH (09:21)
[2017-01-25] MEDS: CHOLESTYRAMINE/ASPARTAME 4 G/PKT PACKET GT SCH (12:20)
[2017-01-25] MEDS: MULTIVIT, IRON, MIN NO. 8, FA 1 TAB GT SCH (21:11)
[2017-01-25] MEDS: VALSARTAN 80 MG TABLET GT SCH (21:12)
[2017-01-26 01:00] VITALS: BP 111/60
[2017-01-26] MEDS: IPRATROPIUM NEB FS 0.5 MG/2.5 ML AMPUL.NEB IH SCH ×4 (01:28→19:59)
[2017-01-26] MEDS: ALBUTEROL FS 2.5 MG/3 ML VIAL.NEB NEB SCH ×4 (01:28→19:59)
[2017-01-26 05:35] VITALS: BP 108/60
[2017-01-26] MEDS: PANTOPRAZOLE 40 MG/PACK PACK GT SCH (05:55)
[2017-01-26] MEDS: LEVOTHYROXINE SODIUM 88 MCG TABLET GT SCH (05:55)
[2017-01-26] MEDS: GLYTROL 1,000 ML BAG GT PRN (06:11)
[2017-01-26 08:00] VITALS: BP 118/69
[2017-01-26] MEDS: LEVETIRACETAM SOL (5 ML) 100 MG/ML UDC GT SCH ×2 (08:39→20:24)
[2017-01-26] MEDS: OMEGA GT SCH ×3 (08:39→17:05)
[2017-01-26] MEDS: COD LIVER OIL/ZINC OXIDE 120 GM TUBE TP SCH ×4 (08:39→20:26)
[2017-01-26] MEDS: ASCORBIC ACID 500 MG TABLET GT SCH ×2 (08:39→20:26)
[2017-01-26] MEDS: LABETALOL HCL (100MG) 100 MG TABLET GT SCH ×2 (08:39→20:25)
[2017-01-26] MEDS: HYDROGEN PEROXIDE 480 ML BOTTLE TP SCH ×2 (08:39→20:26)
[2017-01-26] MEDS: CARBOXYMETHYLCELLULOSE SODIUM 0.4 ML DROPERETTE EACHEYE SCH (08:39)
[2017-01-26] MEDS: LACTOBACILLUS RHAMNOSUS GG 1 EACH CAP.SPRINK GT SCH (08:39)
[2017-01-26] MEDS: PROSOURCE / PROSTAT (PYXIS) 30 ML UDC GT SCH ×3 (08:39→17:05)
[2017-01-26] MEDS: HYDROGEL DRESSING 90 GM TUBE TP SCH (08:39)
[2017-01-26] MEDS: CHOLESTYRAMINE/ASPARTAME 4 G/PKT PACKET GT SCH (12:21)
[2017-01-26 17:00] VITALS: BP 118/69
--- NOTE | 2017-01-26 17:00 | NUR ---
Asked Dr. Calderon if pt's sacral wound treatment can be changed since pt has had Hydrogel and Mepilex for a while and sacral wound has not yet healed. Received order to apply Venelex on the sacral wound, Z-guard on the periwound, and dry dressing q shift and PRN for 30 days. Notified Reyna.
[2017-01-26] MEDS: MULTIVIT, IRON, MIN NO. 8, FA 1 TAB GT SCH (20:24)
[2017-01-26 20:29] VITALS: BP 109/60
[2017-01-26 21:23] VITALS: BP 109/60
[2017-01-26] MEDS: VALSARTAN 80 MG TABLET GT SCH (22:00)
[2017-01-27] VITALS (7 sets, daily range): BP systolic 104–141; BP diastolic 54–70
[2017-01-27] MEDS: ALBUTEROL FS 2.5 MG/3 ML VIAL.NEB NEB SCH ×4 (02:01→20:20)
[2017-01-27] MEDS: IPRATROPIUM NEB FS 0.5 MG/2.5 ML AMPUL.NEB IH SCH ×4 (02:01→20:20)
[2017-01-27] MEDS: PANTOPRAZOLE 40 MG/PACK PACK GT SCH (05:46)
[2017-01-27] MEDS: LEVOTHYROXINE SODIUM 88 MCG TABLET GT SCH (05:46)
[2017-01-27] MEDS: GLYTROL 1,000 ML BAG GT PRN (05:47)
[2017-01-27] MEDS: LEVETIRACETAM SOL (5 ML) 100 MG/ML UDC GT SCH ×2 (08:37→21:22)
[2017-01-27] MEDS: CARBOXYMETHYLCELLULOSE SODIUM 0.4 ML DROPERETTE EACHEYE SCH (08:37)
[2017-01-27] MEDS: PROSOURCE / PROSTAT (PYXIS) 30 ML UDC GT SCH ×3 (08:37→17:44)
[2017-01-27] MEDS: OMEGA GT SCH ×3 (08:37→17:44)
[2017-01-27] MEDS: COD LIVER OIL/ZINC OXIDE 120 GM TUBE TP SCH ×2 (08:37→21:23)
[2017-01-27] MEDS: ASCORBIC ACID 500 MG TABLET GT SCH ×2 (08:37→21:23)
[2017-01-27] MEDS: LACTOBACILLUS RHAMNOSUS GG 1 EACH CAP.SPRINK GT SCH (08:37)
[2017-01-27] MEDS: HYDROGEN PEROXIDE 480 ML BOTTLE TP SCH ×2 (08:37→21:23)
[2017-01-27] MEDS: LABETALOL HCL (100MG) 100 MG TABLET GT SCH ×2 (08:37→21:00)
[2017-01-27] MEDS: Z GUARD REMEDY 4 OZ OINT TP SCH ×2 (09:00→21:23)
[2017-01-27] MEDS: VENELEX TP SCH ×2 (09:00→21:00)
[2017-01-27] MEDS: CHOLESTYRAMINE/ASPARTAME 4 G/PKT PACKET GT SCH (12:00)
[2017-01-27] MEDS: MULTIVIT, IRON, MIN NO. 8, FA 1 TAB GT SCH (21:22)
[2017-01-27] MEDS: VALSARTAN 80 MG TABLET GT SCH (22:00)
[2017-01-28] VITALS (8 sets, daily range): BP systolic 102–131; BP diastolic 51–73
[2017-01-28] MEDS: IPRATROPIUM NEB FS 0.5 MG/2.5 ML AMPUL.NEB IH SCH ×4 (02:06→19:17)
[2017-01-28] MEDS: ALBUTEROL FS 2.5 MG/3 ML VIAL.NEB NEB SCH ×4 (02:06→19:17)
[2017-01-28] MEDS: LEVOTHYROXINE SODIUM 88 MCG TABLET GT SCH (05:38)
[2017-01-28] MEDS: PANTOPRAZOLE 40 MG/PACK PACK GT SCH (05:38)
[2017-01-28] MEDS: GLYTROL 1,000 ML BAG GT PRN (06:34)
[2017-01-28] MEDS: VENELEX TP SCH ×2 (09:00→21:02)
[2017-01-28] MEDS: LABETALOL HCL (100MG) 100 MG TABLET GT SCH ×2 (09:00→21:00)
[2017-01-28] MEDS: Z GUARD REMEDY 4 OZ OINT TP SCH ×2 (09:15→21:03)
[2017-01-28] MEDS: CARBOXYMETHYLCELLULOSE SODIUM 0.4 ML DROPERETTE EACHEYE SCH (09:15)
[2017-01-28] MEDS: ASCORBIC ACID 500 MG TABLET GT SCH ×2 (09:15→21:02)
[2017-01-28] MEDS: PROSOURCE / PROSTAT (PYXIS) 30 ML UDC GT SCH ×3 (09:15→16:11)
[2017-01-28] MEDS: LEVETIRACETAM SOL (5 ML) 100 MG/ML UDC GT SCH ×2 (09:15→21:01)
[2017-01-28] MEDS: LACTOBACILLUS RHAMNOSUS GG 1 EACH CAP.SPRINK GT SCH (09:15)
[2017-01-28] MEDS: OMEGA GT SCH ×3 (09:15→16:11)
[2017-01-28] MEDS: HYDROGEN PEROXIDE 480 ML BOTTLE TP SCH ×2 (09:15→21:02)
[2017-01-28] MEDS: COD LIVER OIL/ZINC OXIDE 120 GM TUBE TP SCH ×2 (09:15→21:02)
--- NOTE | 2017-01-28 12:00 | NUR ---
Seen and examined by Dr. Ramirez, NNO given at this time. Dr. Ramirez asked how is the family dynamic, told MD that staff have not heard from responsible democrat brought up any plan of considering hospice placement, which was discussed in the past with administration.
[2017-01-28] MEDS: CHOLESTYRAMINE/ASPARTAME 4 G/PKT PACKET GT SCH (12:30)
[2017-01-28] MEDS: MULTIVIT, IRON, MIN NO. 8, FA 1 TAB GT SCH (21:01)
[2017-01-28] MEDS: VALSARTAN 80 MG TABLET GT SCH (22:00)
[2017-01-29] VITALS (8 sets, daily range): BP systolic 99–133; BP diastolic 56–88
[2017-01-29] MEDS: IPRATROPIUM NEB FS 0.5 MG/2.5 ML AMPUL.NEB IH SCH ×4 (02:28→19:03)
[2017-01-29] MEDS: ALBUTEROL FS 2.5 MG/3 ML VIAL.NEB NEB SCH ×4 (02:28→19:03)
[2017-01-29] MEDS: GLYTROL 1,000 ML BAG GT PRN (05:27)
[2017-01-29] MEDS: LEVOTHYROXINE SODIUM 88 MCG TABLET GT SCH (05:27)
[2017-01-29] MEDS: PANTOPRAZOLE 40 MG/PACK PACK GT SCH (05:27)
[2017-01-29] MEDS: CARBOXYMETHYLCELLULOSE SODIUM 0.4 ML DROPERETTE EACHEYE SCH (08:11)
[2017-01-29] MEDS: OMEGA GT SCH ×3 (08:11→16:50)
[2017-01-29] MEDS: ASCORBIC ACID 500 MG TABLET GT SCH ×2 (08:11→20:17)
[2017-01-29] MEDS: LACTOBACILLUS RHAMNOSUS GG 1 EACH CAP.SPRINK GT SCH (08:11)
[2017-01-29] MEDS: PROSOURCE / PROSTAT (PYXIS) 30 ML UDC GT SCH ×3 (08:11→16:50)
[2017-01-29] MEDS: COD LIVER OIL/ZINC OXIDE 120 GM TUBE TP SCH ×2 (08:12→20:17)
[2017-01-29] MEDS: Z GUARD REMEDY 4 OZ OINT TP SCH ×2 (08:12→20:18)
[2017-01-29] MEDS: VENELEX TP SCH ×2 (08:12→20:18)
[2017-01-29] MEDS: HYDROGEN PEROXIDE 480 ML BOTTLE TP SCH ×2 (08:17→20:17)
[2017-01-29] MEDS: LABETALOL HCL (100MG) 100 MG TABLET GT SCH ×2 (09:00→20:16)
[2017-01-29] MEDS: ZINC OXIDE 30 GM TUBE TP SCH ×2 (09:46→20:18)
[2017-01-29] MEDS: LEVETIRACETAM SOL (5 ML) 100 MG/ML UDC GT SCH ×2 (11:39→20:16)
[2017-01-29] MEDS: CHOLESTYRAMINE/ASPARTAME 4 G/PKT PACKET GT SCH (11:44)
--- NOTE | 2017-01-29 13:29 | NUR ---
RN NOTES AM BLOOD PRESSURE MEDICATIONS HELD DUE TO LOW BP. WILL CONTINUE TO MONITOR.
[2017-01-29] MEDS: MULTIVIT, IRON, MIN NO. 8, FA 1 TAB GT SCH (20:16)
[2017-01-29] MEDS: VALSARTAN 80 MG TABLET GT SCH (22:14)
[2017-01-30] MEDS: IPRATROPIUM NEB FS 0.5 MG/2.5 ML AMPUL.NEB IH SCH ×4 (00:54→19:56)
[2017-01-30] MEDS: ALBUTEROL FS 2.5 MG/3 ML VIAL.NEB NEB SCH ×4 (00:54→19:56)
[2017-01-30 05:10] VITALS: BP 107/51
[2017-01-30] MEDS: PANTOPRAZOLE 40 MG/PACK PACK GT SCH (05:59)
[2017-01-30] MEDS: LEVOTHYROXINE SODIUM 88 MCG TABLET GT SCH (05:59)
[2017-01-30] MEDS: GLYTROL 1,000 ML BAG GT PRN (06:05)
[2017-01-30 07:54] VITALS: BP 117/69
[2017-01-30] MEDS: LACTOBACILLUS RHAMNOSUS GG 1 EACH CAP.SPRINK GT SCH (08:57)
[2017-01-30] MEDS: PROSOURCE / PROSTAT (PYXIS) 30 ML UDC GT SCH ×3 (08:57→17:00)
[2017-01-30] MEDS: OMEGA GT SCH ×3 (08:57→17:00)
[2017-01-30] MEDS: LEVETIRACETAM SOL (5 ML) 100 MG/ML UDC GT SCH ×2 (08:57→20:14)
[2017-01-30] MEDS: CARBOXYMETHYLCELLULOSE SODIUM 0.4 ML DROPERETTE EACHEYE SCH (08:57)
[2017-01-30] MEDS: Z GUARD REMEDY 4 OZ OINT TP SCH ×2 (08:58→20:17)
[2017-01-30] MEDS: COD LIVER OIL/ZINC OXIDE 120 GM TUBE TP SCH ×2 (08:58→20:16)
[2017-01-30] MEDS: HYDROGEN PEROXIDE 480 ML BOTTLE TP SCH ×2 (08:58→20:16)
[2017-01-30] MEDS: LABETALOL HCL (100MG) 100 MG TABLET GT SCH ×2 (08:58→20:14)
[2017-01-30] MEDS: VENELEX TP SCH ×2 (08:58→20:16)
[2017-01-30] MEDS: ASCORBIC ACID 500 MG TABLET GT SCH ×2 (08:58→20:16)
[2017-01-30] MEDS: ZINC OXIDE 30 GM TUBE TP SCH ×2 (08:59→20:17)
[2017-01-30] MEDS: CHOLESTYRAMINE/ASPARTAME 4 G/PKT PACKET GT SCH (12:00)
--- NOTE | 2017-01-30 13:10 | NUR ---
Seen by wound nurse Dolly. Received order to apply Z-guard and Mepilex on the right buttock excoriated area. Notified Reyna.
--- NOTE | 2017-01-30 13:26 | NUR ---
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 RECOMMEND Z GUARD AND COVER WITH MEPILEX. CONTINUE ALL SKIN PROTECTION MEASURES. DISCUSSED WITH NURSING STAFF. PT IS FREQUENTLY INCONTINENT OF STOOL AND URINE. SKIN TO BE KEPT CLEAN AND DRY. PT ON FIRST STEP MATTRESS. WILL SEE PRN. IN AGREEMENT WITH PLAN OF CARE.
--- NOTE | 2017-01-30 13:32 | NUR ---
SEEN AND EXAMINED BY TERESA GEIGER WITH NO NEW ORDERS AT THIS TIME.
[2017-01-30] MEDS ORDERED: [UNRECOGNIZED DRUG - OTHER] TP (18:00)
[2017-01-30 19:13] VITALS: BP 105/60
[2017-01-30 19:58] VITALS: BP 136/68
[2017-01-30] MEDS ORDERED: Z GUARD REMEDY 4 OZ OINT TP PRN (20:00)
[2017-01-30] MEDS: MULTIVIT, IRON, MIN NO. 8, FA 1 TAB GT SCH (20:15)
[2017-01-30] MEDS: [UNRECOGNIZED DRUG - OTHER] TP SCH (20:17)
[2017-01-30 21:17] VITALS: BP 136/68
[2017-01-30] MEDS: VALSARTAN 80 MG TABLET GT SCH (21:22)
[2017-01-31 02:02] VITALS: BP 125/70
[2017-01-31] MEDS: ALBUTEROL FS 2.5 MG/3 ML VIAL.NEB NEB SCH ×4 (02:06→19:51)
[2017-01-31] MEDS: IPRATROPIUM NEB FS 0.5 MG/2.5 ML AMPUL.NEB IH SCH ×4 (02:06→19:51)
[2017-01-31] MEDS: PANTOPRAZOLE 40 MG/PACK PACK GT SCH (05:43)
[2017-01-31] MEDS: LEVOTHYROXINE SODIUM 88 MCG TABLET GT SCH (05:43)
[2017-01-31] MEDS: GLYTROL 1,000 ML BAG GT PRN (05:44)
[2017-01-31 06:33] VITALS: BP 135/78
[2017-01-31 09:00] VITALS: BP 110/69
[2017-01-31] MEDS: CARBOXYMETHYLCELLULOSE SODIUM 0.4 ML DROPERETTE EACHEYE SCH (09:21)
[2017-01-31] MEDS: LEVETIRACETAM SOL (5 ML) 100 MG/ML UDC GT SCH ×2 (09:21→20:12)
[2017-01-31] MEDS: LACTOBACILLUS RHAMNOSUS GG 1 EACH CAP.SPRINK GT SCH (09:21)
[2017-01-31] MEDS: OMEGA GT SCH ×3 (09:21→17:00)
[2017-01-31] MEDS: PROSOURCE / PROSTAT (PYXIS) 30 ML UDC GT SCH ×3 (09:22→17:00)
[2017-01-31] MEDS: LABETALOL HCL (100MG) 100 MG TABLET GT SCH ×2 (09:22→20:13)
[2017-01-31] MEDS: ASCORBIC ACID 500 MG TABLET GT SCH ×2 (09:23→20:14)
[2017-01-31] MEDS: HYDROGEN PEROXIDE 480 ML BOTTLE TP SCH ×2 (09:23→20:14)
[2017-01-31] MEDS: COD LIVER OIL/ZINC OXIDE 120 GM TUBE TP SCH ×2 (09:23→20:14)
[2017-01-31] MEDS: [UNRECOGNIZED DRUG - OTHER] TP SCH ×2 (09:24→20:15)
[2017-01-31] MEDS: ZINC OXIDE 30 GM TUBE TP SCH ×2 (09:24→20:15)
[2017-01-31] MEDS: Z GUARD REMEDY 4 OZ OINT TP SCH ×2 (09:24→20:15)
[2017-01-31] MEDS: VENELEX TP SCH ×2 (09:24→20:14)
[2017-01-31] MEDS: CHOLESTYRAMINE/ASPARTAME 4 G/PKT PACKET GT SCH (12:40)
[2017-01-31 13:01] VITALS: BP 147/83
[2017-01-31 20:07] VITALS: BP 132/84
[2017-01-31] MEDS: MULTIVIT, IRON, MIN NO. 8, FA 1 TAB GT SCH (20:13)
[2017-01-31 21:22] VITALS: BP 132/84
[2017-01-31] MEDS: VALSARTAN 80 MG TABLET GT SCH (22:09)
[2017-02-01 01:06] VITALS: BP 127/80
[2017-02-01] MEDS: IPRATROPIUM NEB FS 0.5 MG/2.5 ML AMPUL.NEB IH SCH ×4 (02:09→20:04)
[2017-02-01] MEDS: ALBUTEROL FS 2.5 MG/3 ML VIAL.NEB NEB SCH ×4 (02:09→20:04)
[2017-02-01] MEDS: PANTOPRAZOLE 40 MG/PACK PACK GT SCH (05:20)
[2017-02-01] MEDS: GLYTROL 1,000 ML BAG GT PRN (05:20)
[2017-02-01] MEDS: LEVOTHYROXINE SODIUM 88 MCG TABLET GT SCH (05:20)
[2017-02-01 06:44] VITALS: BP 115/68
[2017-02-01 07:43] VITALS: BP 100/48
[2017-02-01] MEDS: ZINC OXIDE 30 GM TUBE TP SCH ×2 (09:00→20:34)
[2017-02-01] MEDS: Z GUARD REMEDY 4 OZ OINT TP SCH ×2 (09:00→20:34)
[2017-02-01] MEDS: HYDROGEN PEROXIDE 480 ML BOTTLE TP SCH ×2 (09:00→20:33)
[2017-02-01] MEDS: COD LIVER OIL/ZINC OXIDE 120 GM TUBE TP SCH ×2 (09:00→20:33)
[2017-02-01] MEDS: LABETALOL HCL (100MG) 100 MG TABLET GT SCH ×2 (09:00→20:33)
[2017-02-01] MEDS: [UNRECOGNIZED DRUG - OTHER] TP SCH ×2 (09:00→20:34)
[2017-02-01] MEDS: VENELEX TP SCH ×2 (09:00→20:33)
[2017-02-01] MEDS: PROSOURCE / PROSTAT (PYXIS) 30 ML UDC GT SCH ×3 (09:03→16:08)
[2017-02-01] MEDS: CARBOXYMETHYLCELLULOSE SODIUM 0.4 ML DROPERETTE EACHEYE SCH (09:03)
[2017-02-01] MEDS: LEVETIRACETAM SOL (5 ML) 100 MG/ML UDC GT SCH ×2 (09:03→20:32)
[2017-02-01] MEDS: OMEGA GT SCH ×3 (09:03→16:08)
[2017-02-01] MEDS: LACTOBACILLUS RHAMNOSUS GG 1 EACH CAP.SPRINK GT SCH (09:03)
[2017-02-01] MEDS: ASCORBIC ACID 500 MG TABLET GT SCH ×2 (09:04→20:33)
[2017-02-01] MEDS: CHOLESTYRAMINE/ASPARTAME 4 G/PKT PACKET GT SCH (12:00)
[2017-02-01 14:33] VITALS: BP 115/75
--- NOTE | 2017-02-01 15:20 | NUR ---
SEEN AND EXAMINED BY TERESA GEIGER WITH NO NEW ORDERS AT THIS TIME.
[2017-02-01 18:27] VITALS: BP 101/65
[2017-02-01] MEDS: MULTIVIT, IRON, MIN NO. 8, FA 1 TAB GT SCH (20:32)
[2017-02-01 21:00] VITALS: BP 125/59
[2017-02-01] MEDS: VALSARTAN 80 MG TABLET GT SCH (22:15)
[2017-02-02] VITALS (8 sets, daily range): BP systolic 98–118; BP diastolic 50–67
[2017-02-02] MEDS: ALBUTEROL FS 2.5 MG/3 ML VIAL.NEB NEB SCH ×4 (01:33→19:57)
[2017-02-02] MEDS: IPRATROPIUM NEB FS 0.5 MG/2.5 ML AMPUL.NEB IH SCH ×4 (01:33→19:57)
[2017-02-02] MEDS: GLYTROL 1,000 ML BAG GT PRN (04:45)
[2017-02-02] MEDS: PANTOPRAZOLE 40 MG/PACK PACK GT SCH (05:23)
[2017-02-02] MEDS: LEVOTHYROXINE SODIUM 88 MCG TABLET GT SCH (05:23)
[2017-02-02] MEDS: ASCORBIC ACID 500 MG TABLET GT SCH ×2 (09:45→20:19)
[2017-02-02] MEDS: LABETALOL HCL (100MG) 100 MG TABLET GT SCH ×2 (09:45→20:17)
[2017-02-02] MEDS: OMEGA GT SCH ×3 (09:45→17:00)
[2017-02-02] MEDS: LEVETIRACETAM SOL (5 ML) 100 MG/ML UDC GT SCH ×2 (09:45→20:15)
[2017-02-02] MEDS: LACTOBACILLUS RHAMNOSUS GG 1 EACH CAP.SPRINK GT SCH (09:45)
[2017-02-02] MEDS: CARBOXYMETHYLCELLULOSE SODIUM 0.4 ML DROPERETTE EACHEYE SCH (09:45)
[2017-02-02] MEDS: COD LIVER OIL/ZINC OXIDE 120 GM TUBE TP SCH ×2 (09:45→20:19)
[2017-02-02] MEDS: PROSOURCE / PROSTAT (PYXIS) 30 ML UDC GT SCH ×3 (09:45→17:00)
[2017-02-02] MEDS: Z GUARD REMEDY 4 OZ OINT TP SCH ×2 (09:46→20:20)
[2017-02-02] MEDS: [UNRECOGNIZED DRUG - OTHER] TP SCH ×2 (09:46→20:19)
[2017-02-02] MEDS: VENELEX TP SCH ×2 (09:46→20:19)
[2017-02-02] MEDS: HYDROGEN PEROXIDE 480 ML BOTTLE TP SCH ×2 (09:46→20:19)
[2017-02-02] MEDS: ZINC OXIDE 30 GM TUBE TP SCH ×2 (09:46→20:20)
[2017-02-02] MEDS: CHOLESTYRAMINE/ASPARTAME 4 G/PKT PACKET GT SCH (12:00)
[2017-02-02] MEDS: MULTIVIT, IRON, MIN NO. 8, FA 1 TAB GT SCH (20:16)
[2017-02-02] MEDS: VALSARTAN 80 MG TABLET GT SCH (21:57)
[2017-02-03 01:28] VITALS: BP 109/60
[2017-02-03] MEDS: ALBUTEROL FS 2.5 MG/3 ML VIAL.NEB NEB SCH ×3 (01:31→20:19)
[2017-02-03] MEDS: IPRATROPIUM NEB FS 0.5 MG/2.5 ML AMPUL.NEB IH SCH ×3 (01:31→20:19)
[2017-02-03 07:10] VITALS: BP 145/69
[2017-02-03] MEDS: ZINC OXIDE 30 GM TUBE TP SCH ×2 (09:00→20:36)
--- NOTE | 2017-02-03 09:00 | NUR ---
Seen and examined by Dr. Ramirez, new order given.
[2017-02-03] MEDS: CHOLESTYRAMINE/ASPARTAME 4 G/PKT PACKET GT SCH (12:17)
[2017-02-03] MEDS: PROSOURCE / PROSTAT (PYXIS) 30 ML UDC GT SCH ×2 (13:00→17:14)
[2017-02-03] MEDS: OMEGA GT SCH ×2 (13:00→17:15)
[2017-02-03 18:25] VITALS: BP 145/69
[2017-02-03 19:20] VITALS: BP 117/58
[2017-02-03] MEDS: LABETALOL HCL (100MG) 100 MG TABLET GT SCH (20:35)
[2017-02-03] MEDS: HYDROGEN PEROXIDE 480 ML BOTTLE TP SCH (20:35)
[2017-02-03] MEDS: ASCORBIC ACID 500 MG TABLET GT SCH (20:35)
[2017-02-03] MEDS: COD LIVER OIL/ZINC OXIDE 120 GM TUBE TP SCH (20:35)
[2017-02-03] MEDS: [UNRECOGNIZED DRUG - OTHER] TP SCH (20:36)
[2017-02-03] MEDS: VENELEX TP SCH (20:36)
[2017-02-03] MEDS: MULTIVIT, IRON, MIN NO. 8, FA 1 TAB GT SCH (20:36)
[2017-02-03] MEDS: Z GUARD REMEDY 4 OZ OINT TP SCH (20:36)
[2017-02-03 21:00] VITALS: BP 117/58
[2017-02-03] MEDS: LEVETIRACETAM SOL (5 ML) 100 MG/ML UDC GT SCH (21:23)
[2017-02-03] MEDS: VALSARTAN 80 MG TABLET GT SCH (22:31)
[2017-02-04] VITALS (8 sets, daily range): BP systolic 104–131; BP diastolic 50–64
[2017-02-04] MEDS: IPRATROPIUM NEB FS 0.5 MG/2.5 ML AMPUL.NEB IH SCH ×4 (01:11→19:41)
[2017-02-04] MEDS: ALBUTEROL FS 2.5 MG/3 ML VIAL.NEB NEB SCH ×4 (01:11→19:41)
[2017-02-04] MEDS: PANTOPRAZOLE 40 MG/PACK PACK GT SCH (05:29)
[2017-02-04] MEDS: GLYTROL 1,000 ML BAG GT PRN (05:29)
[2017-02-04] MEDS: LEVOTHYROXINE SODIUM 88 MCG TABLET GT SCH (05:29)
[2017-02-04] MEDS: CARBOXYMETHYLCELLULOSE SODIUM 0.4 ML DROPERETTE EACHEYE SCH (09:28)
[2017-02-04] MEDS: OMEGA GT SCH ×3 (09:30→17:12)
[2017-02-04] MEDS: PROSOURCE / PROSTAT (PYXIS) 30 ML UDC GT SCH ×3 (09:30→17:13)
[2017-02-04] MEDS: LACTOBACILLUS RHAMNOSUS GG 1 EACH CAP.SPRINK GT SCH (09:30)
[2017-02-04] MEDS: LEVETIRACETAM SOL (5 ML) 100 MG/ML UDC GT SCH ×2 (09:30→21:54)
[2017-02-04] MEDS: LABETALOL HCL (100MG) 100 MG TABLET GT SCH ×2 (09:32→21:54)
[2017-02-04] MEDS: ASCORBIC ACID 500 MG TABLET GT SCH ×2 (09:33→21:54)
[2017-02-04] MEDS: COD LIVER OIL/ZINC OXIDE 120 GM TUBE TP SCH ×2 (09:33→21:54)
[2017-02-04] MEDS: Z GUARD REMEDY 4 OZ OINT TP SCH ×2 (10:10→21:55)
[2017-02-04] MEDS: ZINC OXIDE 30 GM TUBE TP SCH ×2 (10:10→21:55)
[2017-02-04] MEDS: VENELEX TP SCH ×2 (10:10→21:55)
[2017-02-04] MEDS: [UNRECOGNIZED DRUG - OTHER] TP SCH ×2 (10:10→21:55)
[2017-02-04] MEDS: HYDROGEN PEROXIDE 480 ML BOTTLE TP SCH ×2 (10:10→21:54)
[2017-02-04] MEDS: CHOLESTYRAMINE/ASPARTAME 4 G/PKT PACKET GT SCH (12:11)
[2017-02-04] MEDS: MULTIVIT, IRON, MIN NO. 8, FA 1 TAB GT SCH (21:54)
[2017-02-04] MEDS: VALSARTAN 80 MG TABLET GT SCH (22:00)
[2017-02-05] MEDS: IPRATROPIUM NEB FS 0.5 MG/2.5 ML AMPUL.NEB IH SCH ×4 (01:06→20:02)
[2017-02-05] MEDS: ALBUTEROL FS 2.5 MG/3 ML VIAL.NEB NEB SCH ×4 (01:06→20:02)
[2017-02-05 01:27] VITALS: BP 127/78
[2017-02-05 05:33] VITALS: BP 110/60
[2017-02-05] MEDS: PANTOPRAZOLE 40 MG/PACK PACK GT SCH (05:33)
[2017-02-05] MEDS: LEVOTHYROXINE SODIUM 88 MCG TABLET GT SCH (05:33)
[2017-02-05] MEDS: GLYTROL 1,000 ML BAG GT PRN (06:29)
[2017-02-05 07:44] VITALS: BP 104/59
[2017-02-05 09:00] VITALS: BP 116/65
[2017-02-05] MEDS: LEVETIRACETAM SOL (5 ML) 100 MG/ML UDC GT SCH ×2 (09:00→20:09)
[2017-02-05] MEDS: VENELEX TP SCH ×2 (09:00→20:11)
[2017-02-05] MEDS: [UNRECOGNIZED DRUG - OTHER] TP SCH ×2 (09:00→20:11)
[2017-02-05] MEDS: OMEGA GT SCH ×3 (09:00→16:21)
[2017-02-05] MEDS: COD LIVER OIL/ZINC OXIDE 120 GM TUBE TP SCH ×2 (09:00→20:10)
[2017-02-05] MEDS: PROSOURCE / PROSTAT (PYXIS) 30 ML UDC GT SCH ×3 (09:00→16:21)
[2017-02-05] MEDS: LABETALOL HCL (100MG) 100 MG TABLET GT SCH ×2 (09:00→20:09)
[2017-02-05] MEDS: CARBOXYMETHYLCELLULOSE SODIUM 0.4 ML DROPERETTE EACHEYE SCH (09:00)
[2017-02-05] MEDS: Z GUARD REMEDY 4 OZ OINT TP SCH ×2 (09:00→20:11)
[2017-02-05] MEDS: ZINC OXIDE 30 GM TUBE TP SCH ×2 (09:00→20:11)
[2017-02-05] MEDS: HYDROGEN PEROXIDE 480 ML BOTTLE TP SCH ×2 (09:00→20:11)
[2017-02-05] MEDS: LACTOBACILLUS RHAMNOSUS GG 1 EACH CAP.SPRINK GT SCH (09:00)
[2017-02-05] MEDS: ASCORBIC ACID 500 MG TABLET GT SCH ×2 (09:00→20:10)
[2017-02-05] MEDS: CHOLESTYRAMINE/ASPARTAME 4 G/PKT PACKET GT SCH (12:00)
[2017-02-05 13:00] VITALS: BP 104/59
[2017-02-05 20:00] VITALS: BP 107/68
[2017-02-05] MEDS: MULTIVIT, IRON, MIN NO. 8, FA 1 TAB GT SCH (20:09)
[2017-02-05] MEDS: VALSARTAN 80 MG TABLET GT SCH (22:00)
[2017-02-06] MEDS: IPRATROPIUM NEB FS 0.5 MG/2.5 ML AMPUL.NEB IH SCH ×4 (02:09→20:20)
[2017-02-06] MEDS: ALBUTEROL FS 2.5 MG/3 ML VIAL.NEB NEB SCH ×4 (02:09→20:20)
[2017-02-06] MEDS: LEVOTHYROXINE SODIUM 88 MCG TABLET GT SCH (05:09)
[2017-02-06] MEDS: PANTOPRAZOLE 40 MG/PACK PACK GT SCH (05:09)
[2017-02-06 07:49] VITALS: BP 106/73
[2017-02-06] MEDS: Z GUARD REMEDY 4 OZ OINT TP SCH ×2 (09:00→20:15)
[2017-02-06] MEDS: LACTOBACILLUS RHAMNOSUS GG 1 EACH CAP.SPRINK GT SCH (09:00)
[2017-02-06] MEDS: COD LIVER OIL/ZINC OXIDE 120 GM TUBE TP SCH ×2 (09:00→20:15)
[2017-02-06] MEDS: LABETALOL HCL (100MG) 100 MG TABLET GT SCH ×2 (09:00→20:14)
[2017-02-06] MEDS: [UNRECOGNIZED DRUG - OTHER] TP SCH ×2 (09:00→20:15)
[2017-02-06] MEDS: LEVETIRACETAM SOL (5 ML) 100 MG/ML UDC GT SCH ×2 (09:00→20:13)
[2017-02-06] MEDS: CARBOXYMETHYLCELLULOSE SODIUM 0.4 ML DROPERETTE EACHEYE SCH (09:00)
[2017-02-06] MEDS: OMEGA GT SCH ×3 (09:00→17:00)
[2017-02-06] MEDS: ASCORBIC ACID 500 MG TABLET GT SCH ×2 (09:00→20:15)
[2017-02-06] MEDS: HYDROGEN PEROXIDE 480 ML BOTTLE TP SCH ×2 (09:00→20:15)
[2017-02-06] MEDS: ZINC OXIDE 30 GM TUBE TP SCH ×2 (09:00→20:15)
[2017-02-06] MEDS: VENELEX TP SCH ×2 (09:00→20:15)
[2017-02-06] MEDS: PROSOURCE / PROSTAT (PYXIS) 30 ML UDC GT SCH ×3 (09:00→17:00)
[2017-02-06] MEDS: CHOLESTYRAMINE/ASPARTAME 4 G/PKT PACKET GT SCH (12:00)
--- NOTE | 2017-02-06 15:07 | NUR ---
JOSSE was informed by charge nurse earlier that family (Rhonda) is requesting a haircut for the resident. JOSSE checked with resident's daughter and CINDY Meehan who stated that it is okay to cut the resident's hair. JOSSE will notify hellen Jesus when she comes on February 08, 2017.
[2017-02-06 20:08] VITALS: BP 118/60
[2017-02-06] MEDS: MULTIVIT, IRON, MIN NO. 8, FA 1 TAB GT SCH (20:13)
[2017-02-06] MEDS: VALSARTAN 80 MG TABLET GT SCH (22:12)
[2017-02-07] MEDS: IPRATROPIUM NEB FS 0.5 MG/2.5 ML AMPUL.NEB IH SCH ×4 (02:03→19:26)
[2017-02-07] MEDS: ALBUTEROL FS 2.5 MG/3 ML VIAL.NEB NEB SCH ×4 (02:03→19:26)
[2017-02-07] MEDS: LEVOTHYROXINE SODIUM 88 MCG TABLET GT SCH (05:50)
[2017-02-07] MEDS: PANTOPRAZOLE 40 MG/PACK PACK GT SCH (05:50)
[2017-02-07] MEDS: GLYTROL 1,000 ML BAG GT PRN (05:51)
[2017-02-07 08:30] VITALS: BP 98/48
[2017-02-07] MEDS: LEVETIRACETAM SOL (5 ML) 100 MG/ML UDC GT SCH ×2 (09:00→20:21)
[2017-02-07] MEDS: HYDROGEN PEROXIDE 480 ML BOTTLE TP SCH ×2 (09:00→20:23)
[2017-02-07] MEDS: OMEGA GT SCH ×3 (09:00→17:56)
[2017-02-07] MEDS: COD LIVER OIL/ZINC OXIDE 120 GM TUBE TP SCH ×2 (09:00→20:23)
[2017-02-07] MEDS: VENELEX TP SCH ×2 (09:00→20:24)
[2017-02-07] MEDS: ZINC OXIDE 30 GM TUBE TP SCH ×2 (09:00→20:24)
[2017-02-07] MEDS: [UNRECOGNIZED DRUG - OTHER] TP SCH ×2 (09:00→20:24)
[2017-02-07] MEDS: Z GUARD REMEDY 4 OZ OINT TP SCH ×2 (09:00→20:24)
[2017-02-07] MEDS: CARBOXYMETHYLCELLULOSE SODIUM 0.4 ML DROPERETTE EACHEYE SCH (09:00)
[2017-02-07] MEDS: ASCORBIC ACID 500 MG TABLET GT SCH ×2 (09:00→20:23)
[2017-02-07] MEDS: LABETALOL HCL (100MG) 100 MG TABLET GT SCH ×2 (09:00→20:23)
[2017-02-07] MEDS: LACTOBACILLUS RHAMNOSUS GG 1 EACH CAP.SPRINK GT SCH (09:00)
[2017-02-07] MEDS: PROSOURCE / PROSTAT (PYXIS) 30 ML UDC GT SCH ×3 (09:00→17:56)
[2017-02-07] MEDS: CHOLESTYRAMINE/ASPARTAME 4 G/PKT PACKET GT SCH (12:00)
--- NOTE | 2017-02-07 16:10 | NUR ---
RT MONTHLY TRACH CHANGE DONE. NEW SHILEY 6 CUFFED. TRACH CHANGE DONE WITH NO COMPLICATIONS. EQUAL BILATERAL BREATH SOUNDS AND CHEST RISE. PT PLACED BACK ON COOL AEROSOL. NO RESPIRATORY DISTRESS NOTED AT THIS TIME, WILL CONTTINUE TO MONITOR. Addendum: 02/07/17 at 1721 by LIDYA POPE RT Amended: Links added.
[2017-02-07 20:05] VITALS: BP 111/55
[2017-02-07] MEDS: MULTIVIT, IRON, MIN NO. 8, FA 1 TAB GT SCH (20:22)
[2017-02-07] MEDS: VALSARTAN 80 MG TABLET GT SCH (21:56)
[2017-02-08] MEDS: IPRATROPIUM NEB FS 0.5 MG/2.5 ML AMPUL.NEB IH SCH ×4 (01:27→20:07)
[2017-02-08] MEDS: ALBUTEROL FS 2.5 MG/3 ML VIAL.NEB NEB SCH ×4 (01:27→20:07)
[2017-02-08] MEDS: LEVOTHYROXINE SODIUM 88 MCG TABLET GT SCH (05:12)
[2017-02-08] MEDS: PANTOPRAZOLE 40 MG/PACK PACK GT SCH (05:12)
[2017-02-08] MEDS: GLYTROL 1,000 ML BAG GT PRN (05:42)
[2017-02-08 07:51] VITALS: BP 107/71
[2017-02-08] MEDS: LEVETIRACETAM SOL (5 ML) 100 MG/ML UDC GT SCH ×2 (09:00→20:56)
[2017-02-08] MEDS: OMEGA GT SCH ×3 (09:00→16:48)
[2017-02-08] MEDS: COD LIVER OIL/ZINC OXIDE 120 GM TUBE TP SCH ×2 (09:00→20:57)
[2017-02-08] MEDS: Z GUARD REMEDY 4 OZ OINT TP SCH ×2 (09:00→22:00)
[2017-02-08] MEDS: CARBOXYMETHYLCELLULOSE SODIUM 0.4 ML DROPERETTE EACHEYE SCH (09:00)
[2017-02-08] MEDS: LABETALOL HCL (100MG) 100 MG TABLET GT SCH ×2 (09:00→20:56)
[2017-02-08] MEDS: ASCORBIC ACID 500 MG TABLET GT SCH ×2 (09:00→20:57)
[2017-02-08] MEDS: ZINC OXIDE 30 GM TUBE TP SCH ×2 (09:00→22:00)
[2017-02-08] MEDS: HYDROGEN PEROXIDE 480 ML BOTTLE TP SCH ×2 (09:00→20:57)
[2017-02-08] MEDS: [UNRECOGNIZED DRUG - OTHER] TP SCH ×2 (09:00→22:00)
[2017-02-08] MEDS: VENELEX TP SCH ×2 (09:00→22:20)
[2017-02-08] MEDS: LACTOBACILLUS RHAMNOSUS GG 1 EACH CAP.SPRINK GT SCH (09:00)
[2017-02-08] MEDS: PROSOURCE / PROSTAT (PYXIS) 30 ML UDC GT SCH ×3 (09:00→16:48)
--- NOTE | 2017-02-08 10:46 | NUR ---
Resident received her haircut by hellen Jesus.
[2017-02-08] MEDS: CHOLESTYRAMINE/ASPARTAME 4 G/PKT PACKET GT SCH (12:00)
[2017-02-08] MEDS: MULTIVIT, IRON, MIN NO. 8, FA 1 TAB GT SCH (20:56)
[2017-02-08 21:51] VITALS: BP 107/56
[2017-02-08] MEDS: VALSARTAN 80 MG TABLET GT SCH (22:00)
[2017-02-09] MEDS: IPRATROPIUM NEB FS 0.5 MG/2.5 ML AMPUL.NEB IH SCH ×4 (00:51→19:58)
[2017-02-09] MEDS: ALBUTEROL FS 2.5 MG/3 ML VIAL.NEB NEB SCH ×4 (00:51→19:58)
[2017-02-09] MEDS: LEVOTHYROXINE SODIUM 88 MCG TABLET GT SCH (05:59)
[2017-02-09] MEDS: PANTOPRAZOLE 40 MG/PACK PACK GT SCH (05:59)
[2017-02-09] MEDS: GLYTROL 1,000 ML BAG GT PRN (06:05)
[2017-02-09 07:40] VITALS: BP 108/52
[2017-02-09] MEDS: LABETALOL HCL (100MG) 100 MG TABLET GT SCH ×2 (09:00→20:41)
[2017-02-09] MEDS: HYDROGEN PEROXIDE 480 ML BOTTLE TP SCH ×2 (09:16→20:41)
[2017-02-09] MEDS: COD LIVER OIL/ZINC OXIDE 120 GM TUBE TP SCH ×2 (09:16→20:41)
[2017-02-09] MEDS: OMEGA GT SCH ×3 (09:16→16:34)
[2017-02-09] MEDS: LACTOBACILLUS RHAMNOSUS GG 1 EACH CAP.SPRINK GT SCH (09:16)
[2017-02-09] MEDS: PROSOURCE / PROSTAT (PYXIS) 30 ML UDC GT SCH ×3 (09:16→16:34)
[2017-02-09] MEDS: LEVETIRACETAM SOL (5 ML) 100 MG/ML UDC GT SCH ×2 (09:16→20:40)
[2017-02-09] MEDS: ASCORBIC ACID 500 MG TABLET GT SCH ×2 (09:16→20:41)
[2017-02-09] MEDS: VENELEX TP SCH ×2 (09:16→20:41)
[2017-02-09] MEDS: CARBOXYMETHYLCELLULOSE SODIUM 0.4 ML DROPERETTE EACHEYE SCH (09:16)
[2017-02-09] MEDS: [UNRECOGNIZED DRUG - OTHER] TP SCH ×2 (09:17→20:42)
[2017-02-09] MEDS: ZINC OXIDE 30 GM TUBE TP SCH ×2 (09:17→20:42)
[2017-02-09] MEDS: Z GUARD REMEDY 4 OZ OINT TP SCH ×2 (09:17→20:42)
[2017-02-09] MEDS: CHOLESTYRAMINE/ASPARTAME 4 G/PKT PACKET GT SCH (12:00)
[2017-02-09] MEDS: MULTIVIT, IRON, MIN NO. 8, FA 1 TAB GT SCH (20:40)
[2017-02-09] MEDS: KETOCONAZOLE 2% CREAM 15 GM TUBE TP SCH (20:41)
[2017-02-09] MEDS: VALSARTAN 80 MG TABLET GT SCH (22:32)
[2017-02-09 23:47] VITALS: BP 127/66
[2017-02-10] MEDS: IPRATROPIUM NEB FS 0.5 MG/2.5 ML AMPUL.NEB IH SCH ×4 (02:04→19:30)
[2017-02-10] MEDS: ALBUTEROL FS 2.5 MG/3 ML VIAL.NEB NEB SCH ×4 (02:05→19:30)
[2017-02-10] MEDS: PANTOPRAZOLE 40 MG/PACK PACK GT SCH (05:44)
[2017-02-10] MEDS: LEVOTHYROXINE SODIUM 88 MCG TABLET GT SCH (05:44)
[2017-02-10] MEDS: GLYTROL 1,000 ML BAG GT PRN (06:17)
[2017-02-10 07:28] VITALS: BP 101/52
[2017-02-10] MEDS: CARBOXYMETHYLCELLULOSE SODIUM 0.4 ML DROPERETTE EACHEYE SCH (08:37)
[2017-02-10] MEDS: LACTOBACILLUS RHAMNOSUS GG 1 EACH CAP.SPRINK GT SCH (08:37)
[2017-02-10] MEDS: OMEGA GT SCH ×3 (08:38→17:22)
[2017-02-10] MEDS: PROSOURCE / PROSTAT (PYXIS) 30 ML UDC GT SCH ×3 (08:39→17:22)
[2017-02-10] MEDS: LEVETIRACETAM SOL (5 ML) 100 MG/ML UDC GT SCH ×2 (08:39→21:46)
[2017-02-10] MEDS: LABETALOL HCL (100MG) 100 MG TABLET GT SCH ×2 (08:40→21:46)
[2017-02-10] MEDS: ASCORBIC ACID 500 MG TABLET GT SCH ×2 (08:41→21:46)
[2017-02-10] MEDS: ZINC OXIDE 30 GM TUBE TP SCH ×2 (08:41→21:48)
[2017-02-10] MEDS: KETOCONAZOLE 2% CREAM 15 GM TUBE TP SCH ×2 (08:41→21:48)
[2017-02-10] MEDS: COD LIVER OIL/ZINC OXIDE 120 GM TUBE TP SCH ×2 (08:41→21:46)
[2017-02-10] MEDS: Z GUARD REMEDY 4 OZ OINT TP SCH ×2 (11:45→21:48)
[2017-02-10] MEDS: VENELEX TP SCH ×2 (11:45→21:48)
[2017-02-10] MEDS: HYDROGEN PEROXIDE 480 ML BOTTLE TP SCH ×2 (11:45→21:47)
[2017-02-10] MEDS: [UNRECOGNIZED DRUG - OTHER] TP SCH ×2 (11:45→21:48)
[2017-02-10] MEDS: CHOLESTYRAMINE/ASPARTAME 4 G/PKT PACKET GT SCH (12:48)
[2017-02-10] MEDS: MULTIVIT, IRON, MIN NO. 8, FA 1 TAB GT SCH (21:46)
[2017-02-10 21:54] VITALS: BP 114/64
[2017-02-10] MEDS: VALSARTAN 80 MG TABLET GT SCH (22:00)
[2017-02-11] MEDS: IPRATROPIUM NEB FS 0.5 MG/2.5 ML AMPUL.NEB IH SCH ×4 (02:20→19:59)
[2017-02-11] MEDS: ALBUTEROL FS 2.5 MG/3 ML VIAL.NEB NEB SCH ×4 (02:20→19:59)
[2017-02-11] MEDS: LEVOTHYROXINE SODIUM 88 MCG TABLET GT SCH (06:07)
[2017-02-11] MEDS: PANTOPRAZOLE 40 MG/PACK PACK GT SCH (06:07)
[2017-02-11] MEDS: GLYTROL 1,000 ML BAG GT PRN (06:09)
[2017-02-11 07:33] VITALS: BP 97/49
[2017-02-11] MEDS: LACTOBACILLUS RHAMNOSUS GG 1 EACH CAP.SPRINK GT SCH (09:54)
[2017-02-11] MEDS: PROSOURCE / PROSTAT (PYXIS) 30 ML UDC GT SCH ×3 (09:54→17:12)
[2017-02-11] MEDS: LEVETIRACETAM SOL (5 ML) 100 MG/ML UDC GT SCH ×2 (09:54→21:27)
[2017-02-11] MEDS: OMEGA GT SCH ×3 (09:54→17:12)
[2017-02-11] MEDS: CARBOXYMETHYLCELLULOSE SODIUM 0.4 ML DROPERETTE EACHEYE SCH (09:54)
[2017-02-11] MEDS: [UNRECOGNIZED DRUG - OTHER] TP SCH ×2 (09:55→21:29)
[2017-02-11] MEDS: KETOCONAZOLE 2% CREAM 15 GM TUBE TP SCH ×2 (09:55→21:28)
[2017-02-11] MEDS: HYDROGEN PEROXIDE 480 ML BOTTLE TP SCH ×2 (09:55→21:28)
[2017-02-11] MEDS: VENELEX TP SCH ×2 (09:55→21:28)
[2017-02-11] MEDS: COD LIVER OIL/ZINC OXIDE 120 GM TUBE TP SCH ×2 (09:55→21:28)
[2017-02-11] MEDS: LABETALOL HCL (100MG) 100 MG TABLET GT SCH ×2 (09:55→21:00)
[2017-02-11] MEDS: ASCORBIC ACID 500 MG TABLET GT SCH ×2 (09:55→21:28)
[2017-02-11] MEDS: ZINC OXIDE 30 GM TUBE TP SCH ×2 (09:56→21:29)
[2017-02-11] MEDS: Z GUARD REMEDY 4 OZ OINT TP SCH ×2 (09:56→21:29)
[2017-02-11] MEDS: CHOLESTYRAMINE/ASPARTAME 4 G/PKT PACKET GT SCH (12:39)
[2017-02-11] MEDS: hydrALAZINE HCL 10 MG TABLET GT PRN ×2 (12:47→17:21)
[2017-02-11 19:53] VITALS: BP 103/58
[2017-02-11] MEDS: MULTIVIT, IRON, MIN NO. 8, FA 1 TAB GT SCH (21:27)
[2017-02-11] MEDS: VALSARTAN 80 MG TABLET GT SCH (22:00)
[2017-02-12] MEDS: ALBUTEROL FS 2.5 MG/3 ML VIAL.NEB NEB SCH ×4 (00:49→19:54)
[2017-02-12] MEDS: IPRATROPIUM NEB FS 0.5 MG/2.5 ML AMPUL.NEB IH SCH ×4 (00:49→19:54)
[2017-02-12] MEDS: PANTOPRAZOLE 40 MG/PACK PACK GT SCH (05:23)
[2017-02-12] MEDS: GLYTROL 1,000 ML BAG GT PRN (05:23)
[2017-02-12] MEDS: LEVOTHYROXINE SODIUM 88 MCG TABLET GT SCH (05:23)
[2017-02-12 07:38] VITALS: BP 123/67
[2017-02-12] MEDS: OMEGA GT SCH ×3 (09:00→16:40)
[2017-02-12] MEDS: Z GUARD REMEDY 4 OZ OINT TP SCH ×2 (09:00→21:31)
[2017-02-12] MEDS: PROSOURCE / PROSTAT (PYXIS) 30 ML UDC GT SCH ×3 (09:00→16:40)
[2017-02-12] MEDS: ASCORBIC ACID 500 MG TABLET GT SCH ×2 (09:00→21:31)
[2017-02-12] MEDS: LACTOBACILLUS RHAMNOSUS GG 1 EACH CAP.SPRINK GT SCH (09:00)
[2017-02-12] MEDS: LEVETIRACETAM SOL (5 ML) 100 MG/ML UDC GT SCH ×2 (09:00→21:30)
[2017-02-12] MEDS: LABETALOL HCL (100MG) 100 MG TABLET GT SCH ×2 (09:00→21:31)
[2017-02-12] MEDS: VENELEX TP SCH ×2 (09:00→21:31)
[2017-02-12] MEDS: KETOCONAZOLE 2% CREAM 15 GM TUBE TP SCH ×2 (09:00→21:31)
[2017-02-12] MEDS: HYDROGEN PEROXIDE 480 ML BOTTLE TP SCH ×2 (09:00→21:31)
[2017-02-12] MEDS: [UNRECOGNIZED DRUG - OTHER] TP SCH ×2 (09:00→21:31)
[2017-02-12] MEDS: COD LIVER OIL/ZINC OXIDE 120 GM TUBE TP SCH ×2 (09:00→21:31)
[2017-02-12] MEDS: CARBOXYMETHYLCELLULOSE SODIUM 0.4 ML DROPERETTE EACHEYE SCH (09:00)
[2017-02-12] MEDS: CHOLESTYRAMINE/ASPARTAME 4 G/PKT PACKET GT SCH (12:15)
--- NOTE | 2017-02-12 12:30 | NUR ---
Placed an order for refill venelex for sacral wound treatment,its not covered by insurance .[facility] made aware .spoke to natally,suggested to change the treatment.left message to DR.Tim nur.waiting to call back.
[2017-02-12 19:43] VITALS: BP 125/58
[2017-02-12] MEDS: MULTIVIT, IRON, MIN NO. 8, FA 1 TAB GT SCH (21:30)
[2017-02-12] MEDS: VALSARTAN 80 MG TABLET GT SCH (21:32)
[2017-02-13] MEDS: ALBUTEROL FS 2.5 MG/3 ML VIAL.NEB NEB SCH ×4 (02:13→19:37)
[2017-02-13] MEDS: IPRATROPIUM NEB FS 0.5 MG/2.5 ML AMPUL.NEB IH SCH ×4 (02:13→19:37)
[2017-02-13] MEDS: PANTOPRAZOLE 40 MG/PACK PACK GT SCH (05:51)
[2017-02-13] MEDS: LEVOTHYROXINE SODIUM 88 MCG TABLET GT SCH (05:51)
[2017-02-13] MEDS: OMEGA GT SCH ×3 (08:20→17:06)
[2017-02-13] MEDS: LACTOBACILLUS RHAMNOSUS GG 1 EACH CAP.SPRINK GT SCH (08:20)
[2017-02-13] MEDS: CARBOXYMETHYLCELLULOSE SODIUM 0.4 ML DROPERETTE EACHEYE SCH (08:20)
[2017-02-13] MEDS: ASCORBIC ACID 500 MG TABLET GT SCH ×2 (08:21→21:37)
[2017-02-13] MEDS: LABETALOL HCL (100MG) 100 MG TABLET GT SCH ×2 (08:21→21:37)
[2017-02-13] MEDS: PROSOURCE / PROSTAT (PYXIS) 30 ML UDC GT SCH ×3 (08:21→17:06)
[2017-02-13] MEDS: LEVETIRACETAM SOL (5 ML) 100 MG/ML UDC GT SCH ×2 (08:21→21:37)
[2017-02-13] MEDS: KETOCONAZOLE 2% CREAM 15 GM TUBE TP SCH ×2 (09:36→21:37)
[2017-02-13] MEDS: Z GUARD REMEDY 4 OZ OINT TP SCH ×3 (09:36→21:37)
[2017-02-13] MEDS: COD LIVER OIL/ZINC OXIDE 120 GM TUBE TP SCH ×2 (09:36→21:37)
[2017-02-13] MEDS: [UNRECOGNIZED DRUG - OTHER] TP SCH (09:36)
[2017-02-13] MEDS: VENELEX TP SCH ×2 (09:36→21:37)
[2017-02-13] MEDS: HYDROGEN PEROXIDE 480 ML BOTTLE TP SCH ×2 (09:36→21:37)
[2017-02-13 10:22] VITALS: BP 125/56
[2017-02-13] MEDS: CHOLESTYRAMINE/ASPARTAME 4 G/PKT PACKET GT SCH (12:29)
[2017-02-13 19:57] VITALS: BP 134/67
--- NOTE | 2017-02-13 21:00 | NUR ---
RN NOTES Noted with perianal excoriation and received new order from Dr. Ramirez, noted and carried out. Daughter, Katelin made aware.
[2017-02-13] MEDS: MULTIVIT, IRON, MIN NO. 8, FA 1 TAB GT SCH (21:37)
[2017-02-13] MEDS: VALSARTAN 80 MG TABLET GT SCH (21:38)
[2017-02-14] MEDS: IPRATROPIUM NEB FS 0.5 MG/2.5 ML AMPUL.NEB IH SCH ×4 (02:00→20:22)
[2017-02-14] MEDS: ALBUTEROL FS 2.5 MG/3 ML VIAL.NEB NEB SCH ×4 (02:00→20:22)
[2017-02-14] MEDS: PANTOPRAZOLE 40 MG/PACK PACK GT SCH (06:09)
[2017-02-14] MEDS: LEVOTHYROXINE SODIUM 88 MCG TABLET GT SCH (06:09)
[2017-02-14 08:06] VITALS: BP 101/47
[2017-02-14] MEDS: LABETALOL HCL (100MG) 100 MG TABLET GT SCH ×2 (08:36→21:27)
[2017-02-14] MEDS: OMEGA GT SCH ×3 (08:38→17:53)
[2017-02-14] MEDS: COD LIVER OIL/ZINC OXIDE 120 GM TUBE TP SCH ×2 (08:38→21:27)
[2017-02-14] MEDS: LACTOBACILLUS RHAMNOSUS GG 1 EACH CAP.SPRINK GT SCH (08:38)
[2017-02-14] MEDS: VENELEX TP SCH ×2 (08:38→21:28)
[2017-02-14] MEDS: KETOCONAZOLE 2% CREAM 15 GM TUBE TP SCH ×2 (08:38→21:28)
[2017-02-14] MEDS: ASCORBIC ACID 500 MG TABLET GT SCH ×2 (08:38→21:27)
[2017-02-14] MEDS: PROSOURCE / PROSTAT (PYXIS) 30 ML UDC GT SCH ×3 (08:38→17:53)
[2017-02-14] MEDS: LEVETIRACETAM SOL (5 ML) 100 MG/ML UDC GT SCH ×2 (08:38→21:26)
[2017-02-14] MEDS: HYDROGEN PEROXIDE 480 ML BOTTLE TP SCH ×2 (08:38→21:27)
[2017-02-14] MEDS: Z GUARD REMEDY 4 OZ OINT TP SCH ×4 (08:38→21:28)
[2017-02-14] MEDS: CARBOXYMETHYLCELLULOSE SODIUM 0.4 ML DROPERETTE EACHEYE SCH (08:39)
[2017-02-14] MEDS: CHOLESTYRAMINE/ASPARTAME 4 G/PKT PACKET GT SCH (12:30)
[2017-02-14 20:01] VITALS: BP 106/67
[2017-02-14] MEDS: MULTIVIT, IRON, MIN NO. 8, FA 1 TAB GT SCH (21:26)
[2017-02-14] MEDS: VALSARTAN 80 MG TABLET GT SCH (22:00)
[2017-02-15] MEDS: ALBUTEROL FS 2.5 MG/3 ML VIAL.NEB NEB SCH ×4 (01:58→19:43)
[2017-02-15] MEDS: IPRATROPIUM NEB FS 0.5 MG/2.5 ML AMPUL.NEB IH SCH ×4 (01:58→19:43)
[2017-02-15] MEDS: LEVOTHYROXINE SODIUM 88 MCG TABLET GT SCH (05:06)
[2017-02-15] MEDS: PANTOPRAZOLE 40 MG/PACK PACK GT SCH (05:06)
[2017-02-15] MEDS: LACTOBACILLUS RHAMNOSUS GG 1 EACH CAP.SPRINK GT SCH (08:14)
[2017-02-15] MEDS: PROSOURCE / PROSTAT (PYXIS) 30 ML UDC GT SCH ×3 (08:14→17:46)
[2017-02-15] MEDS: CARBOXYMETHYLCELLULOSE SODIUM 0.4 ML DROPERETTE EACHEYE SCH (08:14)
[2017-02-15] MEDS: OMEGA GT SCH ×3 (08:14→17:45)
[2017-02-15] MEDS: LEVETIRACETAM SOL (5 ML) 100 MG/ML UDC GT SCH ×2 (08:14→21:01)
[2017-02-15] MEDS: LABETALOL HCL (100MG) 100 MG TABLET GT SCH ×2 (08:15→21:00)
[2017-02-15] MEDS: ASCORBIC ACID 500 MG TABLET GT SCH ×2 (08:16→21:02)
[2017-02-15] MEDS: COD LIVER OIL/ZINC OXIDE 120 GM TUBE TP SCH ×2 (08:16→21:02)
[2017-02-15] MEDS: hydrALAZINE HCL 10 MG TABLET GT PRN ×3 (08:21→17:52)
[2017-02-15 08:24] VITALS: BP 102/40
[2017-02-15] MEDS: KETOCONAZOLE 2% CREAM 15 GM TUBE TP SCH ×2 (09:00→21:02)
[2017-02-15] MEDS: Z GUARD REMEDY 4 OZ OINT TP SCH ×4 (09:00→21:02)
[2017-02-15] MEDS: HYDROGEN PEROXIDE 480 ML BOTTLE TP SCH ×2 (09:00→21:02)
[2017-02-15] MEDS: VENELEX TP SCH ×2 (09:00→21:02)
[2017-02-15] MEDS: CHOLESTYRAMINE/ASPARTAME 4 G/PKT PACKET GT SCH (12:47)
[2017-02-15 19:54] VITALS: BP 97/56
[2017-02-15] MEDS: MULTIVIT, IRON, MIN NO. 8, FA 1 TAB GT SCH (21:01)
[2017-02-15] MEDS: VALSARTAN 80 MG TABLET GT SCH (22:00)
[2017-02-16] MEDS: IPRATROPIUM NEB FS 0.5 MG/2.5 ML AMPUL.NEB IH SCH ×4 (01:57→19:49)
[2017-02-16] MEDS: ALBUTEROL FS 2.5 MG/3 ML VIAL.NEB NEB SCH ×4 (01:57→19:49)
[2017-02-16] MEDS: LEVOTHYROXINE SODIUM 88 MCG TABLET GT SCH (06:02)
[2017-02-16] MEDS: PANTOPRAZOLE 40 MG/PACK PACK GT SCH (06:02)
[2017-02-16] MEDS: GLYTROL 1,000 ML BAG GT PRN (06:23)
[2017-02-16 07:35] VITALS: BP 113/61
[2017-02-16 09:00] VITALS: BP 113/61
[2017-02-16] MEDS: OMEGA GT SCH ×3 (09:47→17:00)
[2017-02-16] MEDS: PROSOURCE / PROSTAT (PYXIS) 30 ML UDC GT SCH ×3 (09:47→17:00)
[2017-02-16] MEDS: LEVETIRACETAM SOL (5 ML) 100 MG/ML UDC GT SCH ×2 (09:47→21:21)
[2017-02-16] MEDS: CARBOXYMETHYLCELLULOSE SODIUM 0.4 ML DROPERETTE EACHEYE SCH (09:47)
[2017-02-16] MEDS: LACTOBACILLUS RHAMNOSUS GG 1 EACH CAP.SPRINK GT SCH (09:47)
[2017-02-16] MEDS: VENELEX TP SCH ×2 (09:48→21:22)
[2017-02-16] MEDS: COD LIVER OIL/ZINC OXIDE 120 GM TUBE TP SCH ×2 (09:48→21:21)
[2017-02-16] MEDS: ASCORBIC ACID 500 MG TABLET GT SCH ×2 (09:48→21:21)
[2017-02-16] MEDS: LABETALOL HCL (100MG) 100 MG TABLET GT SCH ×2 (09:48→21:21)
[2017-02-16] MEDS: KETOCONAZOLE 2% CREAM 15 GM TUBE TP SCH ×2 (09:48→21:21)
[2017-02-16] MEDS: HYDROGEN PEROXIDE 480 ML BOTTLE TP SCH ×2 (09:48→21:21)
[2017-02-16] MEDS: Z GUARD REMEDY 4 OZ OINT TP SCH ×4 (09:48→21:22)
[2017-02-16 12:00] VITALS: BP 107/51
[2017-02-16] MEDS: CHOLESTYRAMINE/ASPARTAME 4 G/PKT PACKET GT SCH (12:52)
[2017-02-16 14:00] VITALS: BP 112/53
[2017-02-16 19:26] VITALS: BP 130/60
[2017-02-16 21:20] VITALS: BP 130/60
[2017-02-16] MEDS: MULTIVIT, IRON, MIN NO. 8, FA 1 TAB GT SCH (21:21)
[2017-02-16] MEDS: VALSARTAN 80 MG TABLET GT SCH (22:00)
[2017-02-17] VITALS (8 sets, daily range): BP systolic 90–125; BP diastolic 50–76
[2017-02-17] MEDS: ALBUTEROL FS 2.5 MG/3 ML VIAL.NEB NEB SCH ×4 (00:52→19:35)
[2017-02-17] MEDS: IPRATROPIUM NEB FS 0.5 MG/2.5 ML AMPUL.NEB IH SCH ×4 (00:52→19:35)
[2017-02-17] MEDS: LEVOTHYROXINE SODIUM 88 MCG TABLET GT SCH (05:42)
[2017-02-17] MEDS: PANTOPRAZOLE 40 MG/PACK PACK GT SCH (05:42)
[2017-02-17] MEDS: GLYTROL 1,000 ML BAG GT PRN (06:45)
[2017-02-17] MEDS: OMEGA GT SCH ×3 (08:43→17:38)
[2017-02-17] MEDS: LACTOBACILLUS RHAMNOSUS GG 1 EACH CAP.SPRINK GT SCH (08:43)
[2017-02-17] MEDS: CARBOXYMETHYLCELLULOSE SODIUM 0.4 ML DROPERETTE EACHEYE SCH (08:43)
[2017-02-17] MEDS: LABETALOL HCL (100MG) 100 MG TABLET GT SCH ×2 (08:44→21:13)
[2017-02-17] MEDS: LEVETIRACETAM SOL (5 ML) 100 MG/ML UDC GT SCH ×2 (08:44→21:13)
[2017-02-17] MEDS: PROSOURCE / PROSTAT (PYXIS) 30 ML UDC GT SCH ×3 (08:44→17:38)
[2017-02-17] MEDS: ASCORBIC ACID 500 MG TABLET GT SCH ×2 (08:45→21:13)
[2017-02-17] MEDS: KETOCONAZOLE 2% CREAM 15 GM TUBE TP SCH ×2 (09:00→21:14)
[2017-02-17] MEDS: Z GUARD REMEDY 4 OZ OINT TP SCH ×4 (09:00→21:14)
[2017-02-17] MEDS: VENELEX TP SCH ×2 (09:00→21:14)
[2017-02-17] MEDS: COD LIVER OIL/ZINC OXIDE 120 GM TUBE TP SCH ×2 (09:00→21:13)
[2017-02-17] MEDS: HYDROGEN PEROXIDE 480 ML BOTTLE TP SCH ×2 (09:00→21:13)
[2017-02-17] MEDS: CHOLESTYRAMINE/ASPARTAME 4 G/PKT PACKET GT SCH (12:29)
[2017-02-17] MEDS: MULTIVIT, IRON, MIN NO. 8, FA 1 TAB GT SCH (21:13)
[2017-02-17] MEDS: VALSARTAN 80 MG TABLET GT SCH (22:00)
[2017-02-18] VITALS (9 sets, daily range): BP systolic 87–124; BP diastolic 48–67
[2017-02-18] MEDS: IPRATROPIUM NEB FS 0.5 MG/2.5 ML AMPUL.NEB IH SCH ×4 (01:23→19:46)
[2017-02-18] MEDS: ALBUTEROL FS 2.5 MG/3 ML VIAL.NEB NEB SCH ×4 (01:23→19:46)
[2017-02-18] MEDS: LEVOTHYROXINE SODIUM 88 MCG TABLET GT SCH (05:49)
[2017-02-18] MEDS: PANTOPRAZOLE 40 MG/PACK PACK GT SCH (05:49)
[2017-02-18] MEDS: GLYTROL 1,000 ML BAG GT PRN (05:50)
[2017-02-18] MEDS: CARBOXYMETHYLCELLULOSE SODIUM 0.4 ML DROPERETTE EACHEYE SCH (09:16)
[2017-02-18] MEDS: ASCORBIC ACID 500 MG TABLET GT SCH ×2 (09:17→21:28)
[2017-02-18] MEDS: LACTOBACILLUS RHAMNOSUS GG 1 EACH CAP.SPRINK GT SCH (09:17)
[2017-02-18] MEDS: LABETALOL HCL (100MG) 100 MG TABLET GT SCH ×2 (09:17→21:28)
[2017-02-18] MEDS: KETOCONAZOLE 2% CREAM 15 GM TUBE TP SCH ×2 (09:17→21:28)
[2017-02-18] MEDS: LEVETIRACETAM SOL (5 ML) 100 MG/ML UDC GT SCH ×2 (09:17→21:28)
[2017-02-18] MEDS: PROSOURCE / PROSTAT (PYXIS) 30 ML UDC GT SCH ×3 (09:17→17:37)
[2017-02-18] MEDS: HYDROGEN PEROXIDE 480 ML BOTTLE TP SCH ×2 (09:17→21:28)
[2017-02-18] MEDS: COD LIVER OIL/ZINC OXIDE 120 GM TUBE TP SCH ×2 (09:17→21:28)
[2017-02-18] MEDS: OMEGA GT SCH ×3 (09:17→17:37)
[2017-02-18] MEDS: Z GUARD REMEDY 4 OZ OINT TP SCH ×4 (09:18→21:29)
[2017-02-18] MEDS: VENELEX TP SCH ×2 (09:18→21:28)
[2017-02-18] MEDS: CHOLESTYRAMINE/ASPARTAME 4 G/PKT PACKET GT SCH (12:30)
[2017-02-18] MEDS ORDERED: ACETAMINOPHEN 325 MG TABLET PO PRN (14:30)
--- NOTE | 2017-02-18 15:00 | NUR ---
Left a message to Dr. Ramirez B/P @ 5993 and recheck at this time . Awaiting for call back. FOB elevated. Continue to monitor.
--- NOTE | 2017-02-18 18:00 | NUR ---
Rechecked B/P 103/48. Resident no s/s of respiratory/cardio distress.
[2017-02-18] MEDS: MULTIVIT, IRON, MIN NO. 8, FA 1 TAB GT SCH (21:28)
[2017-02-18] MEDS: VALSARTAN 80 MG TABLET GT SCH (22:28)
[2017-02-19] VITALS (8 sets, daily range): BP systolic 100–142; BP diastolic 55–79
[2017-02-19] MEDS: ALBUTEROL FS 2.5 MG/3 ML VIAL.NEB NEB SCH ×4 (01:47→20:27)
[2017-02-19] MEDS: IPRATROPIUM NEB FS 0.5 MG/2.5 ML AMPUL.NEB IH SCH ×4 (01:47→20:27)
[2017-02-19] MEDS: LEVOTHYROXINE SODIUM 88 MCG TABLET GT SCH (05:33)
[2017-02-19] MEDS: PANTOPRAZOLE 40 MG/PACK PACK GT SCH (05:33)
[2017-02-19] MEDS: GLYTROL 1,000 ML BAG GT PRN (05:33)
[2017-02-19] MEDS: CARBOXYMETHYLCELLULOSE SODIUM 0.4 ML DROPERETTE EACHEYE SCH (08:25)
[2017-02-19] MEDS: OMEGA GT SCH ×3 (08:26→16:53)
[2017-02-19] MEDS: LEVETIRACETAM SOL (5 ML) 100 MG/ML UDC GT SCH ×2 (08:26→21:04)
[2017-02-19] MEDS: PROSOURCE / PROSTAT (PYXIS) 30 ML UDC GT SCH ×3 (08:26→16:53)
[2017-02-19] MEDS: LACTOBACILLUS RHAMNOSUS GG 1 EACH CAP.SPRINK GT SCH (08:26)
[2017-02-19] MEDS: LABETALOL HCL (100MG) 100 MG TABLET GT SCH ×2 (08:26→21:05)
[2017-02-19] MEDS: ASCORBIC ACID 500 MG TABLET GT SCH ×2 (08:27→21:05)
[2017-02-19] MEDS: Z GUARD REMEDY 4 OZ OINT TP SCH ×4 (09:00→21:06)
[2017-02-19] MEDS: KETOCONAZOLE 2% CREAM 15 GM TUBE TP SCH ×2 (09:00→21:06)
[2017-02-19] MEDS: HYDROGEN PEROXIDE 480 ML BOTTLE TP SCH ×2 (09:00→21:06)
[2017-02-19] MEDS: VENELEX TP SCH ×2 (09:00→21:06)
[2017-02-19] MEDS: COD LIVER OIL/ZINC OXIDE 120 GM TUBE TP SCH ×2 (09:00→21:05)
[2017-02-19] MEDS: CHOLESTYRAMINE/ASPARTAME 4 G/PKT PACKET GT SCH (12:25)
[2017-02-19] MEDS: MULTIVIT, IRON, MIN NO. 8, FA 1 TAB GT SCH (21:04)
[2017-02-19] MEDS: VALSARTAN 80 MG TABLET GT SCH (22:00)
[2017-02-20] VITALS (7 sets, daily range): BP systolic 92–136; BP diastolic 45–64
[2017-02-20] MEDS: IPRATROPIUM NEB FS 0.5 MG/2.5 ML AMPUL.NEB IH SCH ×4 (01:36→19:30)
[2017-02-20] MEDS: ALBUTEROL FS 2.5 MG/3 ML VIAL.NEB NEB SCH ×4 (01:36→19:30)
[2017-02-20] MEDS: LEVOTHYROXINE SODIUM 88 MCG TABLET GT SCH (05:53)
[2017-02-20] MEDS: PANTOPRAZOLE 40 MG/PACK PACK GT SCH (05:53)
[2017-02-20] MEDS: LEVETIRACETAM SOL (5 ML) 100 MG/ML UDC GT SCH ×2 (08:39→21:11)
[2017-02-20] MEDS: OMEGA GT SCH ×3 (08:39→17:32)
[2017-02-20] MEDS: PROSOURCE / PROSTAT (PYXIS) 30 ML UDC GT SCH ×3 (08:39→17:32)
[2017-02-20] MEDS: LACTOBACILLUS RHAMNOSUS GG 1 EACH CAP.SPRINK GT SCH (08:39)
[2017-02-20] MEDS: CARBOXYMETHYLCELLULOSE SODIUM 0.4 ML DROPERETTE EACHEYE SCH (08:39)
[2017-02-20] MEDS: ASCORBIC ACID 500 MG TABLET GT SCH ×2 (08:41→21:12)
[2017-02-20] MEDS: LABETALOL HCL (100MG) 100 MG TABLET GT SCH ×2 (08:41→21:00)
[2017-02-20] MEDS: hydrALAZINE HCL 10 MG TABLET GT PRN ×2 (08:47→17:45)
[2017-02-20] MEDS: KETOCONAZOLE 2% CREAM 15 GM TUBE TP SCH ×2 (09:00→21:12)
[2017-02-20] MEDS: HYDROGEN PEROXIDE 480 ML BOTTLE TP SCH ×2 (09:00→21:12)
[2017-02-20] MEDS: Z GUARD REMEDY 4 OZ OINT TP SCH ×4 (09:00→21:14)
[2017-02-20] MEDS: VENELEX TP SCH ×2 (09:00→21:14)
[2017-02-20] MEDS: COD LIVER OIL/ZINC OXIDE 120 GM TUBE TP SCH ×2 (09:00→21:12)
--- NOTE | 2017-02-20 11:05 | NUR ---
Informed by charge nurse that resident has a big blister on her left great toe. Informed Dr. Blum (dietetic aide) who stated that he will come and see the resident today in the afternoon. Informed charge nurse.
[2017-02-20] MEDS: CHOLESTYRAMINE/ASPARTAME 4 G/PKT PACKET GT SCH (11:09)
--- NOTE | 2017-02-20 15:30 | NUR ---
CHARGE NURSE OBTAINED CONSENT IN CHART. LEFT GREAT TOE INCISION AND DRAINAGE WITH WOUND DEBRIDEMENT. PER MD WE ARE TO DO DAILY TX. APPLY BETADINE, WRAP WITH 2X2 GAUZE AND 2 INCH KERLIX. PT TOLERATED WELL, NO DISTRESS OR ISSUES. WILL CONTINUE TO MONITOR AND ASSESS.
[2017-02-20] MEDS: MULTIVIT, IRON, MIN NO. 8, FA 1 TAB GT SCH (21:11)
[2017-02-20] MEDS: VALSARTAN 80 MG TABLET GT SCH (22:00)
[2017-02-21 01:00] VITALS: BP 101/63
[2017-02-21] MEDS: IPRATROPIUM NEB FS 0.5 MG/2.5 ML AMPUL.NEB IH SCH ×4 (01:46→19:41)
[2017-02-21] MEDS: ALBUTEROL FS 2.5 MG/3 ML VIAL.NEB NEB SCH ×4 (01:46→19:41)
[2017-02-21 05:00] VITALS: BP 114/55
[2017-02-21] MEDS: PANTOPRAZOLE 40 MG/PACK PACK GT SCH (05:54)
[2017-02-21] MEDS: LEVOTHYROXINE SODIUM 88 MCG TABLET GT SCH (05:54)
[2017-02-21 07:50] VITALS: BP 106/54
[2017-02-21] MEDS: LABETALOL HCL (100MG) 100 MG TABLET GT SCH ×2 (09:00→21:13)
[2017-02-21] MEDS: LACTOBACILLUS RHAMNOSUS GG 1 EACH CAP.SPRINK GT SCH (09:37)
[2017-02-21] MEDS: HYDROGEN PEROXIDE 480 ML BOTTLE TP SCH ×2 (09:38→21:13)
[2017-02-21] MEDS: ASCORBIC ACID 500 MG TABLET GT SCH ×2 (09:38→21:13)
[2017-02-21] MEDS: OMEGA GT SCH ×3 (09:38→16:48)
[2017-02-21] MEDS: VENELEX TP SCH ×2 (09:38→21:14)
[2017-02-21] MEDS: PROSOURCE / PROSTAT (PYXIS) 30 ML UDC GT SCH ×3 (09:38→16:48)
[2017-02-21] MEDS: COD LIVER OIL/ZINC OXIDE 120 GM TUBE TP SCH ×2 (09:38→21:13)
[2017-02-21] MEDS: CARBOXYMETHYLCELLULOSE SODIUM 0.4 ML DROPERETTE EACHEYE SCH (09:38)
[2017-02-21] MEDS: KETOCONAZOLE 2% CREAM 15 GM TUBE TP SCH ×2 (09:38→21:13)
[2017-02-21] MEDS: LEVETIRACETAM SOL (5 ML) 100 MG/ML UDC GT SCH ×2 (09:38→21:13)
[2017-02-21] MEDS: Z GUARD REMEDY 4 OZ OINT TP SCH ×4 (09:39→21:14)
[2017-02-21] MEDS: CHOLESTYRAMINE/ASPARTAME 4 G/PKT PACKET GT SCH (12:22)
--- NOTE | 2017-02-21 16:17 | NUR ---
Pt was seen by Dr. Blum. He ordered to DC treatment to left great toe (betadine, kerlix) and leave it open to air.
--- NOTE | 2017-02-21 17:39 | NUR ---
Pt's sacral area is improving. Sacral wound measures 0.5 x 0.5 cm, no drainage noted. Surrounding area of sacral wound looks clean and dry, pinkish in color.
[2017-02-21 18:09] VITALS: BP 106/54
[2017-02-21 19:46] VITALS: BP 120/54
[2017-02-21] MEDS: MULTIVIT, IRON, MIN NO. 8, FA 1 TAB GT SCH (21:13)
[2017-02-21 21:24] VITALS: BP 120/54
[2017-02-21] MEDS: VALSARTAN 80 MG TABLET GT SCH (22:00)
[2017-02-22] VITALS (7 sets, daily range): BP systolic 105–126; BP diastolic 51–76
[2017-02-22] MEDS: ALBUTEROL FS 2.5 MG/3 ML VIAL.NEB NEB SCH ×4 (01:44→19:37)
[2017-02-22] MEDS: IPRATROPIUM NEB FS 0.5 MG/2.5 ML AMPUL.NEB IH SCH ×4 (01:44→19:37)
[2017-02-22] MEDS: PANTOPRAZOLE 40 MG/PACK PACK GT SCH (05:56)
[2017-02-22] MEDS: LEVOTHYROXINE SODIUM 88 MCG TABLET GT SCH (05:56)
[2017-02-22] MEDS: LABETALOL HCL (100MG) 100 MG TABLET GT SCH ×2 (08:18→20:55)
[2017-02-22] MEDS: PROSOURCE / PROSTAT (PYXIS) 30 ML UDC GT SCH ×3 (08:18→17:00)
[2017-02-22] MEDS: OMEGA GT SCH ×3 (08:18→17:00)
[2017-02-22] MEDS: LEVETIRACETAM SOL (5 ML) 100 MG/ML UDC GT SCH ×2 (08:18→20:54)
[2017-02-22] MEDS: LACTOBACILLUS RHAMNOSUS GG 1 EACH CAP.SPRINK GT SCH (08:18)
[2017-02-22] MEDS: CARBOXYMETHYLCELLULOSE SODIUM 0.4 ML DROPERETTE EACHEYE SCH (08:18)
[2017-02-22] MEDS: COD LIVER OIL/ZINC OXIDE 120 GM TUBE TP SCH ×2 (08:18→20:55)
[2017-02-22] MEDS: ASCORBIC ACID 500 MG TABLET GT SCH ×2 (08:18→20:55)
[2017-02-22] MEDS: hydrALAZINE HCL 10 MG TABLET GT PRN ×3 (08:19→18:10)
[2017-02-22] MEDS: GLYTROL 1,000 ML BAG GT PRN (08:43)
[2017-02-22] MEDS: Z GUARD REMEDY 4 OZ OINT TP SCH ×4 (09:00→21:27)
[2017-02-22] MEDS: VENELEX TP SCH ×2 (09:00→21:27)
[2017-02-22] MEDS: HYDROGEN PEROXIDE 480 ML BOTTLE TP SCH ×2 (09:00→21:26)
[2017-02-22] MEDS: KETOCONAZOLE 2% CREAM 15 GM TUBE TP SCH ×2 (09:00→21:26)
[2017-02-22] MEDS: CHOLESTYRAMINE/ASPARTAME 4 G/PKT PACKET GT SCH (12:58)
[2017-02-22] MEDS: MULTIVIT, IRON, MIN NO. 8, FA 1 TAB GT SCH (20:54)
[2017-02-22] MEDS: VALSARTAN 80 MG TABLET GT SCH (22:00)
[2017-02-23] VITALS (8 sets, daily range): BP systolic 103–132; BP diastolic 46–71
[2017-02-23] MEDS: ALBUTEROL FS 2.5 MG/3 ML VIAL.NEB NEB SCH ×4 (01:49→19:08)
[2017-02-23] MEDS: IPRATROPIUM NEB FS 0.5 MG/2.5 ML AMPUL.NEB IH SCH ×4 (01:49→19:08)
[2017-02-23] MEDS: LEVOTHYROXINE SODIUM 88 MCG TABLET GT SCH (05:33)
[2017-02-23] MEDS: PANTOPRAZOLE 40 MG/PACK PACK GT SCH (05:33)
[2017-02-23] MEDS: GLYTROL 1,000 ML BAG GT PRN (05:39)
[2017-02-23] MEDS: LABETALOL HCL (100MG) 100 MG TABLET GT SCH ×2 (09:00→20:20)
[2017-02-23] MEDS: COD LIVER OIL/ZINC OXIDE 120 GM TUBE TP SCH ×2 (09:00→20:20)
[2017-02-23] MEDS: PROSOURCE / PROSTAT (PYXIS) 30 ML UDC GT SCH ×3 (09:00→17:00)
[2017-02-23] MEDS: CARBOXYMETHYLCELLULOSE SODIUM 0.4 ML DROPERETTE EACHEYE SCH (09:00)
[2017-02-23] MEDS: Z GUARD REMEDY 4 OZ OINT TP SCH ×4 (09:00→20:21)
[2017-02-23] MEDS: LACTOBACILLUS RHAMNOSUS GG 1 EACH CAP.SPRINK GT SCH (09:00)
[2017-02-23] MEDS: VENELEX TP SCH ×2 (09:00→20:21)
[2017-02-23] MEDS: OMEGA GT SCH ×3 (09:00→17:00)
[2017-02-23] MEDS: HYDROGEN PEROXIDE 480 ML BOTTLE TP SCH ×2 (09:00→20:21)
[2017-02-23] MEDS: LEVETIRACETAM SOL (5 ML) 100 MG/ML UDC GT SCH ×2 (09:00→20:19)
[2017-02-23] MEDS: ASCORBIC ACID 500 MG TABLET GT SCH ×2 (09:00→20:20)
[2017-02-23] MEDS: KETOCONAZOLE 2% CREAM 15 GM TUBE TP SCH (09:00)
[2017-02-23] MEDS: CHOLESTYRAMINE/ASPARTAME 4 G/PKT PACKET GT SCH (12:19)
[2017-02-23] MEDS: MULTIVIT, IRON, MIN NO. 8, FA 1 TAB GT SCH (20:19)
[2017-02-23] MEDS: VALSARTAN 80 MG TABLET GT SCH (22:00)
[2017-02-24] VITALS (8 sets, daily range): BP systolic 92–136; BP diastolic 55–67
[2017-02-24] MEDS: ALBUTEROL FS 2.5 MG/3 ML VIAL.NEB NEB SCH ×4 (01:50→19:30)
[2017-02-24] MEDS: IPRATROPIUM NEB FS 0.5 MG/2.5 ML AMPUL.NEB IH SCH ×4 (01:50→19:30)
[2017-02-24] MEDS: PANTOPRAZOLE 40 MG/PACK PACK GT SCH (05:14)
[2017-02-24] MEDS: LEVOTHYROXINE SODIUM 88 MCG TABLET GT SCH (05:14)
[2017-02-24] MEDS: GLYTROL 1,000 ML BAG GT PRN (05:23)
[2017-02-24] MEDS: LABETALOL HCL (100MG) 100 MG TABLET GT SCH ×2 (09:00→20:40)
[2017-02-24] MEDS: LACTOBACILLUS RHAMNOSUS GG 1 EACH CAP.SPRINK GT SCH (09:30)
[2017-02-24] MEDS: HYDROGEN PEROXIDE 480 ML BOTTLE TP SCH ×2 (09:30→22:00)
[2017-02-24] MEDS: CARBOXYMETHYLCELLULOSE SODIUM 0.4 ML DROPERETTE EACHEYE SCH (09:30)
[2017-02-24] MEDS: OMEGA GT SCH ×3 (09:30→17:45)
[2017-02-24] MEDS: COD LIVER OIL/ZINC OXIDE 120 GM TUBE TP SCH ×2 (09:30→20:40)
[2017-02-24] MEDS: ASCORBIC ACID 500 MG TABLET GT SCH ×2 (09:30→20:40)
[2017-02-24] MEDS: LEVETIRACETAM SOL (5 ML) 100 MG/ML UDC GT SCH ×2 (09:30→20:40)
[2017-02-24] MEDS: PROSOURCE / PROSTAT (PYXIS) 30 ML UDC GT SCH ×3 (09:30→17:45)
[2017-02-24] MEDS: VENELEX TP SCH ×2 (09:31→22:00)
[2017-02-24] MEDS: Z GUARD REMEDY 4 OZ OINT TP SCH ×4 (09:31→22:00)
[2017-02-24] MEDS: CHOLESTYRAMINE/ASPARTAME 4 G/PKT PACKET GT SCH (12:08)
--- NOTE | 2017-02-24 13:54 | NUR ---
INTERDISCIPLINARY TEAM CONFERENCE (IDT) was held today. Resident's daughter/CINDY Orellana attended via telephone conference. Dr. Monet and the interdisciplinary team reviewed the current plan of care in detail. New orders were reviewed. No changes were noted and no new orders were given.
[2017-02-24] MEDS: MULTIVIT, IRON, MIN NO. 8, FA 1 TAB GT SCH (20:40)
[2017-02-24] MEDS: VALSARTAN 80 MG TABLET GT SCH (22:00)
[2017-02-25] VITALS (8 sets, daily range): BP systolic 106–128; BP diastolic 51–73
[2017-02-25] MEDS: IPRATROPIUM NEB FS 0.5 MG/2.5 ML AMPUL.NEB IH SCH ×4 (01:17→19:58)
[2017-02-25] MEDS: ALBUTEROL FS 2.5 MG/3 ML VIAL.NEB NEB SCH ×4 (01:17→19:58)
[2017-02-25] MEDS: PANTOPRAZOLE 40 MG/PACK PACK GT SCH (05:42)
[2017-02-25] MEDS: LEVOTHYROXINE SODIUM 88 MCG TABLET GT SCH (05:42)
[2017-02-25] MEDS: GLYTROL 1,000 ML BAG GT PRN (06:11)
[2017-02-25] MEDS: LABETALOL HCL (100MG) 100 MG TABLET GT SCH ×2 (09:00→20:17)
[2017-02-25] MEDS: PROSOURCE / PROSTAT (PYXIS) 30 ML UDC GT SCH ×3 (09:57→17:49)
[2017-02-25] MEDS: COD LIVER OIL/ZINC OXIDE 120 GM TUBE TP SCH ×2 (09:57→20:18)
[2017-02-25] MEDS: LEVETIRACETAM SOL (5 ML) 100 MG/ML UDC GT SCH ×2 (09:57→20:17)
[2017-02-25] MEDS: OMEGA GT SCH ×3 (09:57→17:49)
[2017-02-25] MEDS: ASCORBIC ACID 500 MG TABLET GT SCH ×2 (09:57→20:17)
[2017-02-25] MEDS: CARBOXYMETHYLCELLULOSE SODIUM 0.4 ML DROPERETTE EACHEYE SCH (09:57)
[2017-02-25] MEDS: LACTOBACILLUS RHAMNOSUS GG 1 EACH CAP.SPRINK GT SCH (09:57)
[2017-02-25] MEDS: HYDROGEN PEROXIDE 480 ML BOTTLE TP SCH ×2 (09:57→20:18)
[2017-02-25] MEDS: Z GUARD REMEDY 4 OZ OINT TP SCH ×4 (09:58→20:18)
[2017-02-25] MEDS: VENELEX TP SCH ×2 (09:58→20:18)
[2017-02-25] MEDS: CHOLESTYRAMINE/ASPARTAME 4 G/PKT PACKET GT SCH (11:58)
[2017-02-25] MEDS: MULTIVIT, IRON, MIN NO. 8, FA 1 TAB GT SCH (20:17)
[2017-02-25] MEDS: VALSARTAN 80 MG TABLET GT SCH (22:00)
[2017-02-26] VITALS (8 sets, daily range): BP systolic 97–122; BP diastolic 51–70
[2017-02-26] MEDS: ALBUTEROL FS 2.5 MG/3 ML VIAL.NEB NEB SCH ×4 (01:52→19:54)
[2017-02-26] MEDS: IPRATROPIUM NEB FS 0.5 MG/2.5 ML AMPUL.NEB IH SCH ×4 (01:52→19:54)
[2017-02-26] MEDS: PANTOPRAZOLE 40 MG/PACK PACK GT SCH (05:04)
[2017-02-26] MEDS: LEVOTHYROXINE SODIUM 88 MCG TABLET GT SCH (05:04)
[2017-02-26] MEDS: GLYTROL 1,000 ML BAG GT PRN (05:15)
[2017-02-26] MEDS: LACTOBACILLUS RHAMNOSUS GG 1 EACH CAP.SPRINK GT SCH (08:44)
[2017-02-26] MEDS: CARBOXYMETHYLCELLULOSE SODIUM 0.4 ML DROPERETTE EACHEYE SCH (08:44)
[2017-02-26] MEDS: OMEGA GT SCH ×3 (08:44→17:35)
[2017-02-26] MEDS: LEVETIRACETAM SOL (5 ML) 100 MG/ML UDC GT SCH ×2 (08:44→21:34)
[2017-02-26] MEDS: LABETALOL HCL (100MG) 100 MG TABLET GT SCH ×2 (08:45→21:34)
[2017-02-26] MEDS: ASCORBIC ACID 500 MG TABLET GT SCH ×2 (08:45→21:34)
[2017-02-26] MEDS: PROSOURCE / PROSTAT (PYXIS) 30 ML UDC GT SCH ×3 (08:45→17:36)
[2017-02-26] MEDS: HYDROGEN PEROXIDE 480 ML BOTTLE TP SCH ×2 (08:46→21:35)
[2017-02-26] MEDS: Z GUARD REMEDY 4 OZ OINT TP SCH ×4 (08:46→21:35)
[2017-02-26] MEDS: COD LIVER OIL/ZINC OXIDE 120 GM TUBE TP SCH ×2 (08:46→21:35)
[2017-02-26] MEDS: CHOLESTYRAMINE/ASPARTAME 4 G/PKT PACKET GT SCH (11:58)
--- NOTE | 2017-02-26 21:00 | NUR ---
RN NOTES Noted pt with blister to left great toe. No drainage noted. Daughter at bedside and aware. Will continue to monitor.
[2017-02-26] MEDS: MULTIVIT, IRON, MIN NO. 8, FA 1 TAB GT SCH (21:34)
[2017-02-26] MEDS: VALSARTAN 80 MG TABLET GT SCH (22:00)
[2017-02-27] VITALS (8 sets, daily range): BP systolic 101–125; BP diastolic 44–69
[2017-02-27] MEDS: IPRATROPIUM NEB FS 0.5 MG/2.5 ML AMPUL.NEB IH SCH ×4 (02:03→19:55)
[2017-02-27] MEDS: ALBUTEROL FS 2.5 MG/3 ML VIAL.NEB NEB SCH ×4 (02:03→19:55)
[2017-02-27] MEDS: GLYTROL 1,000 ML BAG GT PRN (06:07)
[2017-02-27] MEDS: LEVOTHYROXINE SODIUM 88 MCG TABLET GT SCH (06:07)
[2017-02-27] MEDS: PANTOPRAZOLE 40 MG/PACK PACK GT SCH (06:07)
[2017-02-27] MEDS: LABETALOL HCL (100MG) 100 MG TABLET GT SCH ×2 (09:00→21:17)
[2017-02-27] MEDS: PROSOURCE / PROSTAT (PYXIS) 30 ML UDC GT SCH ×3 (09:47→16:42)
[2017-02-27] MEDS: LEVETIRACETAM SOL (5 ML) 100 MG/ML UDC GT SCH ×2 (09:47→21:17)
[2017-02-27] MEDS: OMEGA GT SCH ×3 (09:47→16:42)
[2017-02-27] MEDS: ASCORBIC ACID 500 MG TABLET GT SCH ×2 (09:47→21:17)
[2017-02-27] MEDS: CARBOXYMETHYLCELLULOSE SODIUM 0.4 ML DROPERETTE EACHEYE SCH (09:47)
[2017-02-27] MEDS: LACTOBACILLUS RHAMNOSUS GG 1 EACH CAP.SPRINK GT SCH (09:47)
[2017-02-27] MEDS: HYDROGEN PEROXIDE 480 ML BOTTLE TP SCH ×2 (09:48→21:18)
[2017-02-27] MEDS: COD LIVER OIL/ZINC OXIDE 120 GM TUBE TP SCH ×2 (09:48→21:18)
[2017-02-27] MEDS: Z GUARD REMEDY 4 OZ OINT TP SCH ×3 (09:48→21:18)
[2017-02-27] MEDS: ACETAMINOPHEN 650 MG/20 ML UDC- FOR SA PATIENTS ONLY GT PRN ×2 (09:52→16:44)
[2017-02-27] MEDS: CHOLESTYRAMINE/ASPARTAME 4 G/PKT PACKET GT SCH (12:00)
--- NOTE | 2017-02-27 12:00 | NUR ---
notified the rehabilitation counsellor about the great toe blister.he told he will come and see the patient later in the afternoon.
[2017-02-27] MEDS: hydrALAZINE HCL 10 MG TABLET GT PRN ×2 (13:22→16:42)
--- NOTE | 2017-02-27 15:00 | NUR ---
Seen and examined by ,got an order to do left toe wound debridement.call made to daughter rogelio .got verbal conscent to do the procedure.wound debridement done with new treatment order.noted and carried out.no bleeding noticed.continue to monitor.
[2017-02-27] MEDS: POVIDONE-IODINE OINT 28.4 GM TUBE TP SCH (21:17)
[2017-02-27] MEDS: MULTIVIT, IRON, MIN NO. 8, FA 1 TAB GT SCH (21:17)
[2017-02-27] MEDS: VALSARTAN 80 MG TABLET GT SCH (21:18)
[2017-02-28] VITALS (8 sets, daily range): BP systolic 108–132; BP diastolic 55–74
[2017-02-28] MEDS: ALBUTEROL FS 2.5 MG/3 ML VIAL.NEB NEB SCH ×4 (02:14→19:52)
[2017-02-28] MEDS: IPRATROPIUM NEB FS 0.5 MG/2.5 ML AMPUL.NEB IH SCH ×4 (02:14→19:52)
[2017-02-28] MEDS: PANTOPRAZOLE 40 MG/PACK PACK GT SCH (05:53)
[2017-02-28] MEDS: LEVOTHYROXINE SODIUM 88 MCG TABLET GT SCH (05:53)
[2017-02-28] MEDS: GLYTROL 1,000 ML BAG GT PRN (06:30)
[2017-02-28] MEDS: LEVETIRACETAM SOL (5 ML) 100 MG/ML UDC GT SCH ×2 (08:37→20:33)
[2017-02-28] MEDS: POVIDONE-IODINE OINT 28.4 GM TUBE TP SCH ×2 (08:37→20:34)
[2017-02-28] MEDS: CARBOXYMETHYLCELLULOSE SODIUM 0.4 ML DROPERETTE EACHEYE SCH (08:37)
[2017-02-28] MEDS: LACTOBACILLUS RHAMNOSUS GG 1 EACH CAP.SPRINK GT SCH (08:37)
[2017-02-28] MEDS: Z GUARD REMEDY 4 OZ OINT TP SCH ×2 (08:37→20:34)
[2017-02-28] MEDS: ASCORBIC ACID 500 MG TABLET GT SCH ×2 (08:37→20:34)
[2017-02-28] MEDS: PROSOURCE / PROSTAT (PYXIS) 30 ML UDC GT SCH ×3 (08:37→16:45)
[2017-02-28] MEDS: LABETALOL HCL (100MG) 100 MG TABLET GT SCH ×2 (08:37→20:33)
[2017-02-28] MEDS: HYDROGEN PEROXIDE 480 ML BOTTLE TP SCH ×2 (08:37→20:34)
[2017-02-28] MEDS: OMEGA GT SCH ×3 (08:37→16:45)
[2017-02-28] MEDS: COD LIVER OIL/ZINC OXIDE 120 GM TUBE TP SCH ×2 (08:37→20:34)
[2017-02-28] MEDS: CHOLESTYRAMINE/ASPARTAME 4 G/PKT PACKET GT SCH (12:30)
[2017-02-28] MEDS: MULTIVIT, IRON, MIN NO. 8, FA 1 TAB GT SCH (20:33)
[2017-02-28] MEDS: VALSARTAN 80 MG TABLET GT SCH (21:40)
[2017-03-01] VITALS (9 sets, daily range): BP systolic 101–143; BP diastolic 56–112
[2017-03-01] MEDS: ALBUTEROL FS 2.5 MG/3 ML VIAL.NEB NEB SCH ×4 (01:54→19:30)
[2017-03-01] MEDS: IPRATROPIUM NEB FS 0.5 MG/2.5 ML AMPUL.NEB IH SCH ×4 (01:54→19:29)
[2017-03-01] MEDS: PANTOPRAZOLE 40 MG/PACK PACK GT SCH (05:18)
[2017-03-01] MEDS: LEVOTHYROXINE SODIUM 88 MCG TABLET GT SCH (05:18)
[2017-03-01] MEDS: GLYTROL 1,000 ML BAG GT PRN (06:53)
[2017-03-01] MEDS: OMEGA GT SCH ×3 (08:16→17:37)
[2017-03-01] MEDS: CARBOXYMETHYLCELLULOSE SODIUM 0.4 ML DROPERETTE EACHEYE SCH (08:16)
[2017-03-01] MEDS: LACTOBACILLUS RHAMNOSUS GG 1 EACH CAP.SPRINK GT SCH (08:16)
[2017-03-01] MEDS: LEVETIRACETAM SOL (5 ML) 100 MG/ML UDC GT SCH ×2 (08:16→21:09)
[2017-03-01] MEDS: PROSOURCE / PROSTAT (PYXIS) 30 ML UDC GT SCH ×3 (08:16→17:37)
[2017-03-01] MEDS: ASCORBIC ACID 500 MG TABLET GT SCH ×2 (08:17→21:10)
[2017-03-01] MEDS: LABETALOL HCL (100MG) 100 MG TABLET GT SCH ×2 (08:17→21:10)
[2017-03-01] MEDS: hydrALAZINE HCL 10 MG TABLET GT PRN ×2 (08:21→17:45)
[2017-03-01] MEDS: POVIDONE-IODINE OINT 28.4 GM TUBE TP SCH ×2 (09:00→21:10)
[2017-03-01] MEDS: COD LIVER OIL/ZINC OXIDE 120 GM TUBE TP SCH ×2 (09:00→21:10)
[2017-03-01] MEDS: HYDROGEN PEROXIDE 480 ML BOTTLE TP SCH ×2 (09:00→21:10)
[2017-03-01] MEDS: Z GUARD REMEDY 4 OZ OINT TP SCH (09:00)
[2017-03-01] MEDS: CHOLESTYRAMINE/ASPARTAME 4 G/PKT PACKET GT SCH (12:00)
[2017-03-01] MEDS: MULTIVIT, IRON, MIN NO. 8, FA 1 TAB GT SCH (21:09)
[2017-03-01] MEDS: VALSARTAN 80 MG TABLET GT SCH (21:11)
[2017-03-02] VITALS (8 sets, daily range): BP systolic 108–128; BP diastolic 34–64
[2017-03-02] MEDS: IPRATROPIUM NEB FS 0.5 MG/2.5 ML AMPUL.NEB IH SCH ×4 (02:19→19:52)
[2017-03-02] MEDS: ALBUTEROL FS 2.5 MG/3 ML VIAL.NEB NEB SCH ×4 (02:19→19:52)
[2017-03-02] MEDS: LEVOTHYROXINE SODIUM 88 MCG TABLET GT SCH (05:25)
[2017-03-02] MEDS: PANTOPRAZOLE 40 MG/PACK PACK GT SCH (05:25)
[2017-03-02] MEDS: GLYTROL 1,000 ML BAG GT PRN (06:17)
[2017-03-02] MEDS: LABETALOL HCL (100MG) 100 MG TABLET GT SCH ×2 (09:00→20:55)
--- NOTE | 2017-03-02 09:00 | NUR ---
Time Recorder (Dr. Kang) came and assessed left great toe, he was able to removed some pus at this time. Applied betadine and covered with dry dressing. He stated will come back later this afternoon to take out scab. Patient not in distress, closely monitored.
[2017-03-02] MEDS: POVIDONE-IODINE OINT 28.4 GM TUBE TP SCH ×2 (09:35→20:56)
[2017-03-02] MEDS: HYDROGEN PEROXIDE 480 ML BOTTLE TP SCH ×2 (09:35→20:56)
[2017-03-02] MEDS: COD LIVER OIL/ZINC OXIDE 120 GM TUBE TP SCH ×2 (09:35→20:56)
[2017-03-02] MEDS: ASCORBIC ACID 500 MG TABLET GT SCH ×2 (09:35→20:55)
[2017-03-02] MEDS: PROSOURCE / PROSTAT (PYXIS) 30 ML UDC GT SCH ×3 (09:36→16:58)
[2017-03-02] MEDS: LACTOBACILLUS RHAMNOSUS GG 1 EACH CAP.SPRINK GT SCH (09:37)
[2017-03-02] MEDS: LEVETIRACETAM SOL (5 ML) 100 MG/ML UDC GT SCH ×2 (09:43→20:55)
[2017-03-02] MEDS: CARBOXYMETHYLCELLULOSE SODIUM 0.4 ML DROPERETTE EACHEYE SCH (09:44)
[2017-03-02] MEDS: OMEGA GT SCH ×3 (09:44→16:58)
[2017-03-02] MEDS: CHOLESTYRAMINE/ASPARTAME 4 G/PKT PACKET GT SCH (12:29)
--- NOTE | 2017-03-02 15:45 | NUR ---
Dr. Kang came back, removed the scab, no s/s of infection at this time. No pus at this time. Continue to apply betadine and cover with dry dressing. Per MD will come back to see patient again.
[2017-03-02] MEDS: MULTIVIT, IRON, MIN NO. 8, FA 1 TAB GT SCH (20:55)
[2017-03-02] MEDS: Z GUARD REMEDY 4 OZ OINT TP SCH (20:56)
[2017-03-02] MEDS: VALSARTAN 80 MG TABLET GT SCH (22:00)
[2017-03-03] VITALS (9 sets, daily range): BP systolic 106–140; BP diastolic 51–72
[2017-03-03] MEDS: IPRATROPIUM NEB FS 0.5 MG/2.5 ML AMPUL.NEB IH SCH ×4 (02:04→20:03)
[2017-03-03] MEDS: ALBUTEROL FS 2.5 MG/3 ML VIAL.NEB NEB SCH ×4 (02:04→20:03)
[2017-03-03] MEDS: PANTOPRAZOLE 40 MG/PACK PACK GT SCH (05:34)
[2017-03-03] MEDS: LEVOTHYROXINE SODIUM 88 MCG TABLET GT SCH (05:34)
[2017-03-03] MEDS: GLYTROL 1,000 ML BAG GT PRN ×2 (05:34→22:51)
[2017-03-03] MEDS: OMEGA GT SCH ×3 (08:52→16:20)
[2017-03-03] MEDS: CARBOXYMETHYLCELLULOSE SODIUM 0.4 ML DROPERETTE EACHEYE SCH (08:52)
[2017-03-03] MEDS: LABETALOL HCL (100MG) 100 MG TABLET GT SCH ×2 (08:53→21:28)
[2017-03-03] MEDS: PROSOURCE / PROSTAT (PYXIS) 30 ML UDC GT SCH ×3 (08:53→16:20)
[2017-03-03] MEDS: COD LIVER OIL/ZINC OXIDE 120 GM TUBE TP SCH ×2 (08:54→21:28)
[2017-03-03] MEDS: HYDROGEN PEROXIDE 480 ML BOTTLE TP SCH ×2 (08:54→21:28)
[2017-03-03] MEDS: ASCORBIC ACID 500 MG TABLET GT SCH ×2 (08:54→21:28)
[2017-03-03] MEDS: POVIDONE-IODINE OINT 28.4 GM TUBE TP SCH ×2 (08:54→21:28)
[2017-03-03] MEDS: Z GUARD REMEDY 4 OZ OINT TP SCH ×2 (08:54→21:28)
[2017-03-03] MEDS: LEVETIRACETAM SOL (5 ML) 100 MG/ML UDC GT SCH ×2 (08:56→21:27)
[2017-03-03] MEDS: LACTOBACILLUS RHAMNOSUS GG 1 EACH CAP.SPRINK GT SCH (08:56)
[2017-03-03] MEDS: CHOLESTYRAMINE/ASPARTAME 4 G/PKT PACKET GT SCH (12:07)
[2017-03-03] MEDS: hydrALAZINE HCL 10 MG TABLET GT PRN (13:36)
[2017-03-03] MEDS: MULTIVIT, IRON, MIN NO. 8, FA 1 TAB GT SCH (21:27)
[2017-03-03] MEDS: VALSARTAN 80 MG TABLET GT SCH (22:00)
[2017-03-04] VITALS (8 sets, daily range): BP systolic 101–130; BP diastolic 50–77
[2017-03-04] MEDS: ALBUTEROL FS 2.5 MG/3 ML VIAL.NEB NEB SCH ×4 (01:36→19:49)
[2017-03-04] MEDS: IPRATROPIUM NEB FS 0.5 MG/2.5 ML AMPUL.NEB IH SCH ×4 (01:36→19:49)
[2017-03-04] MEDS: LEVOTHYROXINE SODIUM 88 MCG TABLET GT SCH (05:13)
[2017-03-04] MEDS: PANTOPRAZOLE 40 MG/PACK PACK GT SCH (05:13)
[2017-03-04] MEDS: LEVETIRACETAM SOL (5 ML) 100 MG/ML UDC GT SCH ×2 (09:00→20:47)
[2017-03-04] MEDS: CARBOXYMETHYLCELLULOSE SODIUM 0.4 ML DROPERETTE EACHEYE SCH (09:00)
[2017-03-04] MEDS: ASCORBIC ACID 500 MG TABLET GT SCH ×2 (09:00→20:47)
[2017-03-04] MEDS: LABETALOL HCL (100MG) 100 MG TABLET GT SCH ×2 (09:00→20:47)
[2017-03-04] MEDS: OMEGA GT SCH ×3 (09:00→17:50)
[2017-03-04] MEDS: LACTOBACILLUS RHAMNOSUS GG 1 EACH CAP.SPRINK GT SCH (09:00)
[2017-03-04] MEDS: PROSOURCE / PROSTAT (PYXIS) 30 ML UDC GT SCH ×3 (09:00→17:50)
[2017-03-04] MEDS: HYDROGEN PEROXIDE 480 ML BOTTLE TP SCH ×2 (10:45→20:47)
[2017-03-04] MEDS: COD LIVER OIL/ZINC OXIDE 120 GM TUBE TP SCH ×2 (10:45→20:47)
[2017-03-04] MEDS: POVIDONE-IODINE OINT 28.4 GM TUBE TP SCH ×2 (10:45→20:47)
[2017-03-04] MEDS: Z GUARD REMEDY 4 OZ OINT TP SCH ×2 (10:45→20:48)
[2017-03-04] MEDS: CHOLESTYRAMINE/ASPARTAME 4 G/PKT PACKET GT SCH (11:41)
[2017-03-04] MEDS: ACETAMINOPHEN 650 MG/20 ML UDC- FOR SA PATIENTS ONLY GT PRN (11:41)
[2017-03-04] MEDS: hydrALAZINE HCL 10 MG TABLET GT PRN (18:21)
[2017-03-04] MEDS: MULTIVIT, IRON, MIN NO. 8, FA 1 TAB GT SCH (20:47)
[2017-03-04] MEDS: GLYTROL 1,000 ML BAG GT PRN (20:48)
[2017-03-04] MEDS: VALSARTAN 80 MG TABLET GT SCH (22:00)
[2017-03-05] VITALS (7 sets, daily range): BP systolic 108–140; BP diastolic 51–80
[2017-03-05] MEDS: IPRATROPIUM NEB FS 0.5 MG/2.5 ML AMPUL.NEB IH SCH ×4 (02:14→20:01)
[2017-03-05] MEDS: ALBUTEROL FS 2.5 MG/3 ML VIAL.NEB NEB SCH ×4 (02:14→20:01)
[2017-03-05] MEDS: PANTOPRAZOLE 40 MG/PACK PACK GT SCH (05:01)
[2017-03-05] MEDS: LEVOTHYROXINE SODIUM 88 MCG TABLET GT SCH (05:01)
[2017-03-05] MEDS: COD LIVER OIL/ZINC OXIDE 120 GM TUBE TP SCH ×2 (09:00→21:14)
[2017-03-05] MEDS: LABETALOL HCL (100MG) 100 MG TABLET GT SCH ×2 (09:00→21:14)
[2017-03-05] MEDS: Z GUARD REMEDY 4 OZ OINT TP SCH ×2 (09:00→21:14)
[2017-03-05] MEDS: HYDROGEN PEROXIDE 480 ML BOTTLE TP SCH ×2 (09:00→21:14)
[2017-03-05] MEDS: POVIDONE-IODINE OINT 28.4 GM TUBE TP SCH ×2 (09:00→21:14)
[2017-03-05] MEDS: ASCORBIC ACID 500 MG TABLET GT SCH ×2 (09:22→21:14)
[2017-03-05] MEDS: LACTOBACILLUS RHAMNOSUS GG 1 EACH CAP.SPRINK GT SCH (09:22)
[2017-03-05] MEDS: PROSOURCE / PROSTAT (PYXIS) 30 ML UDC GT SCH ×3 (09:22→17:33)
[2017-03-05] MEDS: OMEGA GT SCH ×3 (09:22→17:33)
[2017-03-05] MEDS: CARBOXYMETHYLCELLULOSE SODIUM 0.4 ML DROPERETTE EACHEYE SCH (09:22)
[2017-03-05] MEDS: LEVETIRACETAM SOL (5 ML) 100 MG/ML UDC GT SCH ×2 (09:22→21:14)
[2017-03-05] MEDS: CHOLESTYRAMINE/ASPARTAME 4 G/PKT PACKET GT SCH (12:00)
[2017-03-05] MEDS: GLYTROL 1,000 ML BAG GT PRN (18:12)
[2017-03-05] MEDS: MULTIVIT, IRON, MIN NO. 8, FA 1 TAB GT SCH (21:14)
[2017-03-05] MEDS: VALSARTAN 80 MG TABLET GT SCH (22:41)
[2017-03-06] VITALS (8 sets, daily range): BP systolic 92–120; BP diastolic 45–65
[2017-03-06] MEDS: ALBUTEROL FS 2.5 MG/3 ML VIAL.NEB NEB SCH ×4 (01:20→19:33)
[2017-03-06] MEDS: IPRATROPIUM NEB FS 0.5 MG/2.5 ML AMPUL.NEB IH SCH ×4 (01:20→19:33)
[2017-03-06] MEDS: PANTOPRAZOLE 40 MG/PACK PACK GT SCH (05:34)
[2017-03-06] MEDS: LEVOTHYROXINE SODIUM 88 MCG TABLET GT SCH (05:34)
--- NOTE | 2017-03-06 07:30 | NUR ---
RN NOTES Seen and examined by Dr. Blum with NNO.
--- NOTE | 2017-03-06 08:50 | NUR ---
Informed daughter/DPOA Reyna Meehan that the dentist will come and do the annual exam for the resident today. She appreciated the notice.
[2017-03-06] MEDS: LABETALOL HCL (100MG) 100 MG TABLET GT SCH ×2 (09:00→21:00)
[2017-03-06] MEDS: CARBOXYMETHYLCELLULOSE SODIUM 0.4 ML DROPERETTE EACHEYE SCH (09:10)
[2017-03-06] MEDS: LACTOBACILLUS RHAMNOSUS GG 1 EACH CAP.SPRINK GT SCH (09:11)
[2017-03-06] MEDS: OMEGA GT SCH ×3 (09:11→16:49)
[2017-03-06] MEDS: LEVETIRACETAM SOL (5 ML) 100 MG/ML UDC GT SCH ×2 (09:12→21:08)
[2017-03-06] MEDS: PROSOURCE / PROSTAT (PYXIS) 30 ML UDC GT SCH ×3 (09:12→16:50)
[2017-03-06] MEDS: ASCORBIC ACID 500 MG TABLET GT SCH ×2 (09:13→21:09)
--- NOTE | 2017-03-06 09:30 | NUR ---
RN NOTES Seen and examined by dentist, Dr. Soares, with NNO.
[2017-03-06] MEDS: CHOLESTYRAMINE/ASPARTAME 4 G/PKT PACKET GT SCH (12:48)
[2017-03-06] MEDS: hydrALAZINE HCL 10 MG TABLET GT PRN ×2 (12:49→16:55)
--- NOTE | 2017-03-06 14:00 | NUR ---
Seen and examined by Becca Smith NP for Dr. Monet NNO given.
[2017-03-06] MEDS: POVIDONE-IODINE OINT 28.4 GM TUBE TP SCH (14:30)
[2017-03-06] MEDS: Z GUARD REMEDY 4 OZ OINT TP SCH ×2 (14:30→21:09)
[2017-03-06] MEDS: HYDROGEN PEROXIDE 480 ML BOTTLE TP SCH ×2 (14:30→21:09)
[2017-03-06] MEDS: COD LIVER OIL/ZINC OXIDE 120 GM TUBE TP SCH ×2 (14:30→21:09)
[2017-03-06] MEDS: GLYTROL 1,000 ML BAG GT PRN (16:50)
[2017-03-06] MEDS: MULTIVIT, IRON, MIN NO. 8, FA 1 TAB GT SCH (21:08)
[2017-03-06] MEDS: VALSARTAN 80 MG TABLET GT SCH (21:09)
[2017-03-07] VITALS (9 sets, daily range): BP systolic 90–130; BP diastolic 45–66
[2017-03-07] MEDS: ALBUTEROL FS 2.5 MG/3 ML VIAL.NEB NEB SCH ×4 (00:51→19:53)
[2017-03-07] MEDS: IPRATROPIUM NEB FS 0.5 MG/2.5 ML AMPUL.NEB IH SCH ×4 (00:51→19:53)
[2017-03-07] MEDS: PANTOPRAZOLE 40 MG/PACK PACK GT SCH (05:15)
[2017-03-07] MEDS: LEVOTHYROXINE SODIUM 88 MCG TABLET GT SCH (05:15)
[2017-03-07] MEDS: LABETALOL HCL (100MG) 100 MG TABLET GT SCH ×2 (09:00→21:14)
[2017-03-07] MEDS: CARBOXYMETHYLCELLULOSE SODIUM 0.4 ML DROPERETTE EACHEYE SCH (09:21)
[2017-03-07] MEDS: OMEGA GT SCH ×3 (09:23→17:15)
[2017-03-07] MEDS: LACTOBACILLUS RHAMNOSUS GG 1 EACH CAP.SPRINK GT SCH (09:23)
[2017-03-07] MEDS: LEVETIRACETAM SOL (5 ML) 100 MG/ML UDC GT SCH ×2 (09:23→21:14)
[2017-03-07] MEDS: PROSOURCE / PROSTAT (PYXIS) 30 ML UDC GT SCH ×3 (09:24→17:15)
[2017-03-07] MEDS: COD LIVER OIL/ZINC OXIDE 120 GM TUBE TP SCH ×2 (09:25→21:14)
[2017-03-07] MEDS: ASCORBIC ACID 500 MG TABLET GT SCH ×2 (09:25→21:14)
[2017-03-07] MEDS: Z GUARD REMEDY 4 OZ OINT TP SCH ×2 (09:26→21:14)
[2017-03-07] MEDS: HYDROGEN PEROXIDE 480 ML BOTTLE TP SCH ×2 (11:00→21:14)
--- NOTE | 2017-03-07 12:15 | NUR ---
Reyna (DPOA/dtr) visited the resident and asked to see the SW. She asked the SW if there were any changes and sw informed her that for social work, the dentist came yesterday and recommended a cleaning for her. SW informed her that dentist will be able to return late March or early April to complete the cleaning and she stated that this is okay. She stated that she will be out of town until Monday evening but will still be available to receive messages/texts. Charge nurse was present during that conversation and is informed. She wanted to meet with the subacute division merchandise manager Farida to introduce herself but subacute division merchandise manager was currently unavailable. Reyna stated that this is okay and will try to introduce herself the next time she visits.
[2017-03-07] MEDS: CHOLESTYRAMINE/ASPARTAME 4 G/PKT PACKET GT SCH (12:48)
[2017-03-07] MEDS: MULTIVIT, IRON, MIN NO. 8, FA 1 TAB GT SCH (21:14)
[2017-03-07] MEDS: VALSARTAN 80 MG TABLET GT SCH (21:15)
[2017-03-08] VITALS (7 sets, daily range): BP systolic 104–122; BP diastolic 48–85
[2017-03-08] MEDS: ALBUTEROL FS 2.5 MG/3 ML VIAL.NEB NEB SCH ×4 (02:03→19:48)
[2017-03-08] MEDS: IPRATROPIUM NEB FS 0.5 MG/2.5 ML AMPUL.NEB IH SCH ×4 (02:03→19:48)
[2017-03-08] MEDS: PANTOPRAZOLE 40 MG/PACK PACK GT SCH (05:43)
[2017-03-08] MEDS: LEVOTHYROXINE SODIUM 88 MCG TABLET GT SCH (05:43)
[2017-03-08] MEDS: CARBOXYMETHYLCELLULOSE SODIUM 0.4 ML DROPERETTE EACHEYE SCH (09:18)
[2017-03-08] MEDS: OMEGA GT SCH ×3 (09:18→16:36)
[2017-03-08] MEDS: LEVETIRACETAM SOL (5 ML) 100 MG/ML UDC GT SCH ×2 (09:18→21:27)
[2017-03-08] MEDS: PROSOURCE / PROSTAT (PYXIS) 30 ML UDC GT SCH ×3 (09:18→16:36)
[2017-03-08] MEDS: LACTOBACILLUS RHAMNOSUS GG 1 EACH CAP.SPRINK GT SCH (09:18)
[2017-03-08] MEDS: LABETALOL HCL (100MG) 100 MG TABLET GT SCH ×2 (09:19→21:00)
[2017-03-08] MEDS: HYDROGEN PEROXIDE 480 ML BOTTLE TP SCH ×2 (09:22→21:28)
[2017-03-08] MEDS: ASCORBIC ACID 500 MG TABLET GT SCH ×2 (09:22→21:28)
[2017-03-08] MEDS: Z GUARD REMEDY 4 OZ OINT TP SCH ×2 (09:22→21:28)
[2017-03-08] MEDS: COD LIVER OIL/ZINC OXIDE 120 GM TUBE TP SCH ×2 (09:22→21:28)
[2017-03-08] MEDS: CHOLESTYRAMINE/ASPARTAME 4 G/PKT PACKET GT SCH (12:19)
[2017-03-08] MEDS: GLYTROL 1,000 ML BAG GT PRN (18:43)
--- NOTE | 2017-03-08 19:00 | NUR ---
Becca Smith, RETAIL ZONE SPECIALIST for Dr. Monet, seen rashes in the R scapula area and R posterior thigh, with order to resume treatment of Nizoral cream. Endorsed to incoming shift to notify family of the new order.
--- NOTE | 2017-03-08 20:54 | NUR ---
Pt daughter Reyna notified with new order for the skin rashes on the right scapula and thigh.Appreciative of the call.
[2017-03-08] MEDS: MULTIVIT, IRON, MIN NO. 8, FA 1 TAB GT SCH (21:27)
[2017-03-08] MEDS: VALSARTAN 80 MG TABLET GT SCH (21:28)
[2017-03-08] MEDS: KETOCONAZOLE 2% CREAM 15 GM TUBE TP SCH ×2 (21:28)
[2017-03-09] VITALS (7 sets, daily range): BP systolic 105–123; BP diastolic 51–62
[2017-03-09] MEDS: ALBUTEROL FS 2.5 MG/3 ML VIAL.NEB NEB SCH ×4 (01:39→19:38)
[2017-03-09] MEDS: IPRATROPIUM NEB FS 0.5 MG/2.5 ML AMPUL.NEB IH SCH ×4 (01:39→19:38)
[2017-03-09] MEDS: LEVOTHYROXINE SODIUM 88 MCG TABLET GT SCH (05:18)
[2017-03-09] MEDS: PANTOPRAZOLE 40 MG/PACK PACK GT SCH (05:18)
[2017-03-09] MEDS: LABETALOL HCL (100MG) 100 MG TABLET GT SCH ×2 (09:00→20:54)
[2017-03-09] MEDS: PROSOURCE / PROSTAT (PYXIS) 30 ML UDC GT SCH ×3 (09:13→17:00)
[2017-03-09] MEDS: HYDROGEN PEROXIDE 480 ML BOTTLE TP SCH ×2 (09:13→20:54)
[2017-03-09] MEDS: LACTOBACILLUS RHAMNOSUS GG 1 EACH CAP.SPRINK GT SCH (09:13)
[2017-03-09] MEDS: OMEGA GT SCH ×3 (09:13→17:00)
[2017-03-09] MEDS: COD LIVER OIL/ZINC OXIDE 120 GM TUBE TP SCH ×2 (09:13→20:54)
[2017-03-09] MEDS: KETOCONAZOLE 2% CREAM 15 GM TUBE TP SCH ×4 (09:13→20:54)
[2017-03-09] MEDS: ASCORBIC ACID 500 MG TABLET GT SCH ×2 (09:13→20:54)
[2017-03-09] MEDS: LEVETIRACETAM SOL (5 ML) 100 MG/ML UDC GT SCH ×2 (09:13→20:53)
[2017-03-09] MEDS: Z GUARD REMEDY 4 OZ OINT TP SCH ×2 (09:14→20:54)
[2017-03-09] MEDS: CARBOXYMETHYLCELLULOSE SODIUM 0.4 ML DROPERETTE EACHEYE SCH (09:18)
[2017-03-09] MEDS: CHOLESTYRAMINE/ASPARTAME 4 G/PKT PACKET GT SCH (12:00)
[2017-03-09] MEDS: MULTIVIT, IRON, MIN NO. 8, FA 1 TAB GT SCH (20:53)
[2017-03-09] MEDS: GLYTROL 1,000 ML BAG GT PRN (20:57)
[2017-03-09] MEDS: VALSARTAN 80 MG TABLET GT SCH (22:22)
[2017-03-10] VITALS (7 sets, daily range): BP systolic 101–123; BP diastolic 52–69
[2017-03-10] MEDS: IPRATROPIUM NEB FS 0.5 MG/2.5 ML AMPUL.NEB IH SCH ×4 (02:20→19:37)
[2017-03-10] MEDS: ALBUTEROL FS 2.5 MG/3 ML VIAL.NEB NEB SCH ×4 (02:20→19:37)
[2017-03-10] MEDS: PANTOPRAZOLE 40 MG/PACK PACK GT SCH (06:57)
[2017-03-10] MEDS: LEVOTHYROXINE SODIUM 88 MCG TABLET GT SCH (06:57)
[2017-03-10] MEDS ORDERED: POVIDONE-IODINE OINT 28.4 GM TUBE TP SCH (09:00)
[2017-03-10] MEDS: LABETALOL HCL (100MG) 100 MG TABLET GT SCH ×2 (09:00→20:33)
[2017-03-10] MEDS: LACTOBACILLUS RHAMNOSUS GG 1 EACH CAP.SPRINK GT SCH (09:19)
[2017-03-10] MEDS: LEVETIRACETAM SOL (5 ML) 100 MG/ML UDC GT SCH ×2 (09:19→20:32)
[2017-03-10] MEDS: OMEGA GT SCH ×3 (09:19→17:24)
[2017-03-10] MEDS: PROSOURCE / PROSTAT (PYXIS) 30 ML UDC GT SCH ×3 (09:19→17:24)
[2017-03-10] MEDS: CARBOXYMETHYLCELLULOSE SODIUM 0.4 ML DROPERETTE EACHEYE SCH (09:19)
[2017-03-10] MEDS: ASCORBIC ACID 500 MG TABLET GT SCH ×2 (09:20→20:33)
[2017-03-10] MEDS: KETOCONAZOLE 2% CREAM 15 GM TUBE TP SCH ×4 (09:20→20:34)
[2017-03-10] MEDS: COD LIVER OIL/ZINC OXIDE 120 GM TUBE TP SCH ×2 (09:20→20:34)
[2017-03-10] MEDS: Z GUARD REMEDY 4 OZ OINT TP SCH ×2 (09:20→20:34)
[2017-03-10] MEDS: HYDROGEN PEROXIDE 480 ML BOTTLE TP SCH ×2 (09:20→20:34)
--- NOTE | 2017-03-10 11:07 | NUR ---
Seen by Dr. Blum, rigging engineer with order to continue applying Betadine ointment to L great toe QS x 7 days . Orders noted and carried out.
[2017-03-10] MEDS: CHOLESTYRAMINE/ASPARTAME 4 G/PKT PACKET GT SCH (12:49)
[2017-03-10] MEDS: MULTIVIT, IRON, MIN NO. 8, FA 1 TAB GT SCH (20:32)
[2017-03-10] MEDS: POVIDONE-IODINE OINT 28.4 GM TUBE TP SCH (20:33)
[2017-03-10] MEDS: GLYTROL 1,000 ML BAG GT PRN (20:34)
[2017-03-10] MEDS: VALSARTAN 80 MG TABLET GT SCH (22:00)
[2017-03-11] VITALS (8 sets, daily range): BP systolic 98–126; BP diastolic 51–79
[2017-03-11] MEDS: IPRATROPIUM NEB FS 0.5 MG/2.5 ML AMPUL.NEB IH SCH ×4 (01:24→19:30)
[2017-03-11] MEDS: ALBUTEROL FS 2.5 MG/3 ML VIAL.NEB NEB SCH ×4 (01:24→19:30)
[2017-03-11] MEDS: PANTOPRAZOLE 40 MG/PACK PACK GT SCH (05:04)
[2017-03-11] MEDS: LEVOTHYROXINE SODIUM 88 MCG TABLET GT SCH (05:04)
[2017-03-11] MEDS: LEVETIRACETAM SOL (5 ML) 100 MG/ML UDC GT SCH ×2 (09:01→20:58)
[2017-03-11] MEDS: LACTOBACILLUS RHAMNOSUS GG 1 EACH CAP.SPRINK GT SCH (09:01)
[2017-03-11] MEDS: LABETALOL HCL (100MG) 100 MG TABLET GT SCH ×2 (09:02→20:59)
[2017-03-11] MEDS: OMEGA GT SCH ×3 (09:02→16:58)
[2017-03-11] MEDS: PROSOURCE / PROSTAT (PYXIS) 30 ML UDC GT SCH ×3 (09:02→16:58)
[2017-03-11] MEDS: ASCORBIC ACID 500 MG TABLET GT SCH ×2 (09:04→20:59)
[2017-03-11] MEDS: CARBOXYMETHYLCELLULOSE SODIUM 0.4 ML DROPERETTE EACHEYE SCH (09:04)
[2017-03-11] MEDS: COD LIVER OIL/ZINC OXIDE 120 GM TUBE TP SCH ×2 (09:05→21:00)
[2017-03-11] MEDS: POVIDONE-IODINE OINT 28.4 GM TUBE TP SCH ×2 (09:05→21:00)
[2017-03-11] MEDS: HYDROGEN PEROXIDE 480 ML BOTTLE TP SCH ×2 (09:05→21:00)
[2017-03-11] MEDS: KETOCONAZOLE 2% CREAM 15 GM TUBE TP SCH ×2 (09:06)
[2017-03-11] MEDS: Z GUARD REMEDY 4 OZ OINT TP SCH ×2 (09:06→21:00)
--- NOTE | 2017-03-11 10:43 | NUR ---
Seen and examined by Dr. Ramirez, assessed rashes on the R scapula extending to R upper posterior arm and R posterior thigh. New order given to DC current treatment but to change it to Triamcinolone 0.1% QS x [address] Leiva also gave an order for dermatology consult with Dr. Jiménez. Reyna, responsible green party notified, she said "whatever works for her" Endorsed to follow-up dermatology consult on Monday.
[2017-03-11] MEDS: CHOLESTYRAMINE/ASPARTAME 4 G/PKT PACKET GT SCH (11:58)
[2017-03-11] MEDS: GLYTROL 1,000 ML BAG GT PRN (17:45)
[2017-03-11] MEDS: MULTIVIT, IRON, MIN NO. 8, FA 1 TAB GT SCH (20:58)
[2017-03-11] MEDS: TRIAMCINOLONE ACETONIDE 0.1% CR 15 GM TUBE TP SCH (21:00)
[2017-03-11] MEDS: VALSARTAN 80 MG TABLET GT SCH (22:00)
[2017-03-12] VITALS (7 sets, daily range): BP systolic 98–118; BP diastolic 49–62
[2017-03-12] MEDS: IPRATROPIUM NEB FS 0.5 MG/2.5 ML AMPUL.NEB IH SCH ×4 (01:15→19:47)
[2017-03-12] MEDS: ALBUTEROL FS 2.5 MG/3 ML VIAL.NEB NEB SCH ×4 (01:15→19:47)
[2017-03-12] MEDS: PANTOPRAZOLE 40 MG/PACK PACK GT SCH (05:52)
[2017-03-12] MEDS: LEVOTHYROXINE SODIUM 88 MCG TABLET GT SCH (05:52)
[2017-03-12] MEDS: LABETALOL HCL (100MG) 100 MG TABLET GT SCH ×2 (09:00→20:11)
[2017-03-12] MEDS: LACTOBACILLUS RHAMNOSUS GG 1 EACH CAP.SPRINK GT SCH (09:03)
[2017-03-12] MEDS: LEVETIRACETAM SOL (5 ML) 100 MG/ML UDC GT SCH ×2 (09:03→20:10)
[2017-03-12] MEDS: OMEGA GT SCH ×3 (09:03→16:35)
[2017-03-12] MEDS: PROSOURCE / PROSTAT (PYXIS) 30 ML UDC GT SCH ×3 (09:03→16:35)
[2017-03-12] MEDS: CARBOXYMETHYLCELLULOSE SODIUM 0.4 ML DROPERETTE EACHEYE SCH (09:03)
[2017-03-12] MEDS: ASCORBIC ACID 500 MG TABLET GT SCH ×2 (09:04→20:12)
[2017-03-12] MEDS: TRIAMCINOLONE ACETONIDE 0.1% CR 15 GM TUBE TP SCH ×2 (09:04→20:12)
[2017-03-12] MEDS: POVIDONE-IODINE OINT 28.4 GM TUBE TP SCH ×2 (09:04→20:12)
[2017-03-12] MEDS: COD LIVER OIL/ZINC OXIDE 120 GM TUBE TP SCH ×2 (09:04→20:12)
[2017-03-12] MEDS: Z GUARD REMEDY 4 OZ OINT TP SCH ×2 (09:04→20:12)
[2017-03-12] MEDS: HYDROGEN PEROXIDE 480 ML BOTTLE TP SCH ×2 (09:04→20:12)
[2017-03-12] MEDS: CHOLESTYRAMINE/ASPARTAME 4 G/PKT PACKET GT SCH (12:38)
[2017-03-12] MEDS: MULTIVIT, IRON, MIN NO. 8, FA 1 TAB GT SCH (20:11)
[2017-03-12] MEDS: VALSARTAN 80 MG TABLET GT SCH (22:00)
[2017-03-13] VITALS (7 sets, daily range): BP systolic 98–128; BP diastolic 60–66
[2017-03-13] MEDS: IPRATROPIUM NEB FS 0.5 MG/2.5 ML AMPUL.NEB IH SCH ×4 (01:47→19:41)
[2017-03-13] MEDS: ALBUTEROL FS 2.5 MG/3 ML VIAL.NEB NEB SCH ×4 (01:47→19:41)
[2017-03-13] MEDS: LEVOTHYROXINE SODIUM 88 MCG TABLET GT SCH (05:07)
[2017-03-13] MEDS: PANTOPRAZOLE 40 MG/PACK PACK GT SCH (05:07)
--- NOTE | 2017-03-13 08:33 | NUR ---
Informed by charge nurse that resident in need of a dermatology consult that would require a hospital visit. Faxed referral to the office of Dr. Jiménez and Dr. London ([address] [place] [address]; tel: [phone], ). Called the office and spoke to Marlin and stated to her that she faxed referral. She stated they will look it over. SW to follow up.
[2017-03-13] MEDS: OMEGA GT SCH ×3 (08:34→17:00)
[2017-03-13] MEDS: LABETALOL HCL (100MG) 100 MG TABLET GT SCH ×3 (08:34→20:19)
[2017-03-13] MEDS: LEVETIRACETAM SOL (5 ML) 100 MG/ML UDC GT SCH ×2 (08:34→20:18)
[2017-03-13] MEDS: CARBOXYMETHYLCELLULOSE SODIUM 0.4 ML DROPERETTE EACHEYE SCH (08:34)
[2017-03-13] MEDS: LACTOBACILLUS RHAMNOSUS GG 1 EACH CAP.SPRINK GT SCH (08:34)
[2017-03-13] MEDS: PROSOURCE / PROSTAT (PYXIS) 30 ML UDC GT SCH ×3 (08:34→17:00)
[2017-03-13] MEDS: TRIAMCINOLONE ACETONIDE 0.1% CR 15 GM TUBE TP SCH ×2 (08:35→20:20)
[2017-03-13] MEDS: COD LIVER OIL/ZINC OXIDE 120 GM TUBE TP SCH ×2 (08:35→20:20)
[2017-03-13] MEDS: ASCORBIC ACID 500 MG TABLET GT SCH ×2 (08:35→20:20)
[2017-03-13] MEDS: POVIDONE-IODINE OINT 28.4 GM TUBE TP SCH ×2 (08:35→20:20)
[2017-03-13] MEDS: HYDROGEN PEROXIDE 480 ML BOTTLE TP SCH ×2 (08:35→20:21)
[2017-03-13] MEDS: Z GUARD REMEDY 4 OZ OINT TP SCH ×2 (08:36→20:21)
--- NOTE | 2017-03-13 09:47 | NUR ---
Spoke to daughter/DPOA Reyna Meehan and informed her that there is an IDT meeting this Friday March 17, 2017 from 12:30-1:30PM. She stated that she would like to attend via telephone conference. SW to call resident's DPOA/dtr during IDT meeting this Monday. Resident unable to attend due to current medical condition.
[2017-03-13] MEDS: CHOLESTYRAMINE/ASPARTAME 4 G/PKT PACKET GT SCH (12:00)
[2017-03-13] MEDS: MULTIVIT, IRON, MIN NO. 8, FA 1 TAB GT SCH (20:18)
[2017-03-13] MEDS: GLYTROL 1,000 ML BAG GT PRN (21:29)
[2017-03-13] MEDS: VALSARTAN 80 MG TABLET GT SCH (22:17)
[2017-03-14] VITALS (7 sets, daily range): BP systolic 109–123; BP diastolic 47–76
[2017-03-14] MEDS: IPRATROPIUM NEB FS 0.5 MG/2.5 ML AMPUL.NEB IH SCH ×4 (01:44→19:46)
[2017-03-14] MEDS: ALBUTEROL FS 2.5 MG/3 ML VIAL.NEB NEB SCH ×4 (01:44→19:46)
[2017-03-14] MEDS: LEVOTHYROXINE SODIUM 88 MCG TABLET GT SCH (05:16)
[2017-03-14] MEDS: PANTOPRAZOLE 40 MG/PACK PACK GT SCH (05:16)
[2017-03-14] MEDS: TRIAMCINOLONE ACETONIDE 0.1% CR 15 GM TUBE TP SCH ×2 (09:38→20:12)
[2017-03-14] MEDS: OMEGA GT SCH ×3 (09:38→17:56)
[2017-03-14] MEDS: CARBOXYMETHYLCELLULOSE SODIUM 0.4 ML DROPERETTE EACHEYE SCH (09:38)
[2017-03-14] MEDS: PROSOURCE / PROSTAT (PYXIS) 30 ML UDC GT SCH ×3 (09:38→17:57)
[2017-03-14] MEDS: LABETALOL HCL (100MG) 100 MG TABLET GT SCH ×2 (09:38→20:11)
[2017-03-14] MEDS: LACTOBACILLUS RHAMNOSUS GG 1 EACH CAP.SPRINK GT SCH (09:38)
[2017-03-14] MEDS: ASCORBIC ACID 500 MG TABLET GT SCH ×2 (09:38→20:12)
[2017-03-14] MEDS: Z GUARD REMEDY 4 OZ OINT TP SCH ×2 (09:39→20:13)
[2017-03-14] MEDS: COD LIVER OIL/ZINC OXIDE 120 GM TUBE TP SCH ×2 (09:39→20:12)
[2017-03-14] MEDS: POVIDONE-IODINE OINT 28.4 GM TUBE TP SCH ×2 (09:39→20:12)
[2017-03-14] MEDS: HYDROGEN PEROXIDE 480 ML BOTTLE TP SCH ×2 (09:39→20:12)
[2017-03-14] MEDS: LEVETIRACETAM SOL (5 ML) 100 MG/ML UDC GT SCH ×2 (10:00→20:11)
--- NOTE | 2017-03-14 10:20 | NUR ---
Refaxed referral to the office of Dr. Jiménez and Dr. London ([address] [place] [address]; tel: [phone], ) as Marlin stated that they have not received it. JOSSE re-sent fax referral and Marlin stated she was right by the fax machine and would check it. SW to follow up. Addendum: 03/17/17 at 1035 by LUIS LOAIZA Per charge nurse, resident was seen by Dr. Andrews. Referral for Dr. Jiménez was cancelled with Lucien (elementary secretary).
[2017-03-14] MEDS: CHOLESTYRAMINE/ASPARTAME 4 G/PKT PACKET GT SCH (12:22)
[2017-03-14] MEDS: MULTIVIT, IRON, MIN NO. 8, FA 1 TAB GT SCH (20:12)
[2017-03-14] MEDS: VALSARTAN 80 MG TABLET GT SCH (22:00)
[2017-03-15] VITALS (7 sets, daily range): BP systolic 97–133; BP diastolic 51–86
[2017-03-15] MEDS: IPRATROPIUM NEB FS 0.5 MG/2.5 ML AMPUL.NEB IH SCH ×4 (01:58→20:00)
[2017-03-15] MEDS: ALBUTEROL FS 2.5 MG/3 ML VIAL.NEB NEB SCH ×4 (01:58→20:00)
[2017-03-15] MEDS: LEVOTHYROXINE SODIUM 88 MCG TABLET GT SCH (05:04)
[2017-03-15] MEDS: PANTOPRAZOLE 40 MG/PACK PACK GT SCH (05:04)
[2017-03-15] MEDS: LABETALOL HCL (100MG) 100 MG TABLET GT SCH ×2 (09:00→20:44)
[2017-03-15] MEDS: PROSOURCE / PROSTAT (PYXIS) 30 ML UDC GT SCH ×3 (09:30→16:48)
[2017-03-15] MEDS: LEVETIRACETAM SOL (5 ML) 100 MG/ML UDC GT SCH ×2 (09:30→20:43)
[2017-03-15] MEDS: LACTOBACILLUS RHAMNOSUS GG 1 EACH CAP.SPRINK GT SCH (09:30)
[2017-03-15] MEDS: OMEGA GT SCH ×3 (09:30→16:48)
[2017-03-15] MEDS: CARBOXYMETHYLCELLULOSE SODIUM 0.4 ML DROPERETTE EACHEYE SCH (09:30)
[2017-03-15] MEDS: ASCORBIC ACID 500 MG TABLET GT SCH ×2 (09:31→20:44)
[2017-03-15] MEDS: TRIAMCINOLONE ACETONIDE 0.1% CR 15 GM TUBE TP SCH ×2 (09:31→20:44)
[2017-03-15] MEDS: POVIDONE-IODINE OINT 28.4 GM TUBE TP SCH ×2 (09:31→20:44)
[2017-03-15] MEDS: COD LIVER OIL/ZINC OXIDE 120 GM TUBE TP SCH ×2 (09:32→20:44)
[2017-03-15] MEDS: Z GUARD REMEDY 4 OZ OINT TP SCH ×2 (09:32→20:44)
[2017-03-15] MEDS: HYDROGEN PEROXIDE 480 ML BOTTLE TP SCH ×2 (09:32→20:44)
[2017-03-15] MEDS: CHOLESTYRAMINE/ASPARTAME 4 G/PKT PACKET GT SCH (12:11)
[2017-03-15] MEDS: MULTIVIT, IRON, MIN NO. 8, FA 1 TAB GT SCH (20:43)
[2017-03-15] MEDS: GLYTROL 1,000 ML BAG GT PRN (20:44)
[2017-03-15] MEDS: VALSARTAN 80 MG TABLET GT SCH (22:00)
[2017-03-16] VITALS (8 sets, daily range): BP systolic 103–123; BP diastolic 59–71
[2017-03-16] MEDS: IPRATROPIUM NEB FS 0.5 MG/2.5 ML AMPUL.NEB IH SCH ×4 (01:30→19:16)
[2017-03-16] MEDS: ALBUTEROL FS 2.5 MG/3 ML VIAL.NEB NEB SCH ×4 (01:30→19:16)
[2017-03-16] MEDS: PANTOPRAZOLE 40 MG/PACK PACK GT SCH (05:05)
[2017-03-16] MEDS: LEVOTHYROXINE SODIUM 88 MCG TABLET GT SCH (05:05)
[2017-03-16] MEDS: TRIAMCINOLONE ACETONIDE 0.1% CR 15 GM TUBE TP SCH (09:00)
[2017-03-16] MEDS: PROSOURCE / PROSTAT (PYXIS) 30 ML UDC GT SCH ×3 (09:00→17:50)
[2017-03-16] MEDS: CARBOXYMETHYLCELLULOSE SODIUM 0.4 ML DROPERETTE EACHEYE SCH (09:00)
[2017-03-16] MEDS: POVIDONE-IODINE OINT 28.4 GM TUBE TP SCH ×2 (09:00→20:40)
[2017-03-16] MEDS: Z GUARD REMEDY 4 OZ OINT TP SCH (09:00)
[2017-03-16] MEDS: OMEGA GT SCH ×3 (09:00→17:50)
[2017-03-16] MEDS: COD LIVER OIL/ZINC OXIDE 120 GM TUBE TP SCH ×2 (09:00→20:40)
[2017-03-16] MEDS: LACTOBACILLUS RHAMNOSUS GG 1 EACH CAP.SPRINK GT SCH (09:00)
[2017-03-16] MEDS: LABETALOL HCL (100MG) 100 MG TABLET GT SCH ×2 (09:00→20:40)
[2017-03-16] MEDS: LEVETIRACETAM SOL (5 ML) 100 MG/ML UDC GT SCH ×2 (09:00→20:39)
[2017-03-16] MEDS: ASCORBIC ACID 500 MG TABLET GT SCH ×2 (09:00→20:40)
[2017-03-16] MEDS: HYDROGEN PEROXIDE 480 ML BOTTLE TP SCH ×2 (09:00→20:40)
[2017-03-16] MEDS: CHOLESTYRAMINE/ASPARTAME 4 G/PKT PACKET GT SCH (12:03)
--- NOTE | 2017-03-16 13:35 | NUR ---
typing office worker Anne-Marie said the office of Dr. Jiménez has not replied to see the pt. Asked Dr. Darryl Winters to see the pt for rashes. Dr. Hernandezyan aware and said it is fine to have Dr. Darryl Winters see her. Dr. Darryl Winters examined pt's rashes on the right scapular area and bilateral posterior thighs. He said it is fungal and he ordered to apply Lotrimin cream q shift for 10 days then he will re-evaluate. Notified Reyna.
[2017-03-16] MEDS: GLYTROL 1,000 ML BAG GT PRN (17:50)
[2017-03-16] MEDS: MULTIVIT, IRON, MIN NO. 8, FA 1 TAB GT SCH (20:39)
[2017-03-16] MEDS: CLOTRIMAZOLE 1% 15 GM TUBE TP SCH ×2 (20:41)
[2017-03-16] MEDS: VALSARTAN 80 MG TABLET GT SCH (21:52)
[2017-03-17] VITALS (8 sets, daily range): BP systolic 93–124; BP diastolic 45–67
[2017-03-17] MEDS: IPRATROPIUM NEB FS 0.5 MG/2.5 ML AMPUL.NEB IH SCH ×4 (01:22→19:17)
[2017-03-17] MEDS: ALBUTEROL FS 2.5 MG/3 ML VIAL.NEB NEB SCH ×4 (01:22→19:17)
[2017-03-17] MEDS: PANTOPRAZOLE 40 MG/PACK PACK GT SCH (05:12)
[2017-03-17] MEDS: LEVOTHYROXINE SODIUM 88 MCG TABLET GT SCH (05:12)
[2017-03-17] MEDS: LABETALOL HCL (100MG) 100 MG TABLET GT SCH ×2 (09:00→20:06)
[2017-03-17] MEDS: LEVETIRACETAM SOL (5 ML) 100 MG/ML UDC GT SCH ×2 (09:14→20:06)
[2017-03-17] MEDS: CARBOXYMETHYLCELLULOSE SODIUM 0.4 ML DROPERETTE EACHEYE SCH (09:14)
[2017-03-17] MEDS: OMEGA GT SCH ×3 (09:14→17:00)
[2017-03-17] MEDS: PROSOURCE / PROSTAT (PYXIS) 30 ML UDC GT SCH ×3 (09:14→17:00)
[2017-03-17] MEDS: LACTOBACILLUS RHAMNOSUS GG 1 EACH CAP.SPRINK GT SCH (09:14)
[2017-03-17] MEDS: HYDROGEN PEROXIDE 480 ML BOTTLE TP SCH ×2 (09:15→20:07)
[2017-03-17] MEDS: ASCORBIC ACID 500 MG TABLET GT SCH ×2 (09:15→20:06)
[2017-03-17] MEDS: CLOTRIMAZOLE 1% 15 GM TUBE TP SCH ×4 (09:15→20:07)
[2017-03-17] MEDS: POVIDONE-IODINE OINT 28.4 GM TUBE TP SCH (09:15)
[2017-03-17] MEDS: COD LIVER OIL/ZINC OXIDE 120 GM TUBE TP SCH ×2 (09:15→20:06)
--- NOTE | 2017-03-17 10:33 | NUR ---
delivery sales worker received a message from the resident's daughter/annyanu Orellana Zoran. She stated that she will not be available for IDT phone conference after all.
[2017-03-17] MEDS: CHOLESTYRAMINE/ASPARTAME 4 G/PKT PACKET GT SCH (11:08)
[2017-03-17] MEDS ORDERED: Z GUARD REMEDY 2 OZ OINT TP PRN (14:30)
[2017-03-17] MEDS ORDERED: Z GUARD REMEDY 4 OZ OINT TP PRN (14:30)
--- NOTE | 2017-03-17 16:59 | NUR ---
IDT meeting held, reviewed medications, treatment orders and labs. Pharmacy reviewed medications with recommendations to decrease dose of hypertensive medications since most of the time it is being held. Dr. Monet reviewed BP medications with order to decrease dose of Diovan from 80mg to 40 mg Q HS. SBP ranging from high 90's to 130's and DBP in low 50's to 60's. Responsible republican Reyna notified and she is fine with decreasing BP medication.
[2017-03-17] MEDS: GLYTROL 1,000 ML BAG GT PRN (18:01)
[2017-03-17] MEDS: MULTIVIT, IRON, MIN NO. 8, FA 1 TAB GT SCH (20:06)
[2017-03-17] MEDS: Z GUARD REMEDY 4 OZ OINT TP SCH (20:07)
[2017-03-17] MEDS ORDERED: VALSARTAN 80 MG TABLET ONE (22:18)
[2017-03-17] MEDS: VALSARTAN 40 MG TABLET GT SCH (22:20)
[2017-03-18] VITALS (8 sets, daily range): BP systolic 95–119; BP diastolic 41–75
[2017-03-18] MEDS: ALBUTEROL FS 2.5 MG/3 ML VIAL.NEB NEB SCH ×4 (01:18→19:36)
[2017-03-18] MEDS: IPRATROPIUM NEB FS 0.5 MG/2.5 ML AMPUL.NEB IH SCH ×4 (01:18→19:36)
[2017-03-18] MEDS: PANTOPRAZOLE 40 MG/PACK PACK GT SCH (05:21)
[2017-03-18] MEDS: LEVOTHYROXINE SODIUM 88 MCG TABLET GT SCH (05:22)
[2017-03-18] MEDS: LABETALOL HCL (100MG) 100 MG TABLET GT SCH ×2 (09:00→20:49)
[2017-03-18] MEDS: CARBOXYMETHYLCELLULOSE SODIUM 0.4 ML DROPERETTE EACHEYE SCH (09:47)
[2017-03-18] MEDS: OMEGA GT SCH ×3 (09:47→17:00)
[2017-03-18] MEDS: LEVETIRACETAM SOL (5 ML) 100 MG/ML UDC GT SCH ×2 (09:47→20:48)
[2017-03-18] MEDS: PROSOURCE / PROSTAT (PYXIS) 30 ML UDC GT SCH ×3 (09:47→17:00)
[2017-03-18] MEDS: LACTOBACILLUS RHAMNOSUS GG 1 EACH CAP.SPRINK GT SCH (09:47)
[2017-03-18] MEDS: Z GUARD REMEDY 4 OZ OINT TP SCH ×2 (09:48→20:49)
[2017-03-18] MEDS: CLOTRIMAZOLE 1% 15 GM TUBE TP SCH ×4 (09:48→20:49)
[2017-03-18] MEDS: COD LIVER OIL/ZINC OXIDE 120 GM TUBE TP SCH ×2 (09:48→20:49)
[2017-03-18] MEDS: HYDROGEN PEROXIDE 480 ML BOTTLE TP SCH ×2 (09:48→20:49)
[2017-03-18] MEDS: ASCORBIC ACID 500 MG TABLET GT SCH ×2 (09:48→20:49)
[2017-03-18] MEDS: CHOLESTYRAMINE/ASPARTAME 4 G/PKT PACKET GT SCH (12:49)
[2017-03-18] MEDS: GLYTROL 1,000 ML BAG GT PRN (18:01)
[2017-03-18] MEDS: MULTIVIT, IRON, MIN NO. 8, FA 1 TAB GT SCH (20:48)
[2017-03-18] MEDS: VALSARTAN 40 MG TABLET GT SCH (22:00)
[2017-03-19] VITALS (8 sets, daily range): BP systolic 90–127; BP diastolic 51–72
[2017-03-19] MEDS: ALBUTEROL FS 2.5 MG/3 ML VIAL.NEB NEB SCH ×4 (01:37→20:18)
[2017-03-19] MEDS: IPRATROPIUM NEB FS 0.5 MG/2.5 ML AMPUL.NEB IH SCH ×4 (01:37→20:18)
[2017-03-19] MEDS: PANTOPRAZOLE 40 MG/PACK PACK GT SCH (06:24)
[2017-03-19] MEDS: LEVOTHYROXINE SODIUM 88 MCG TABLET GT SCH (06:24)
[2017-03-19] MEDS: LABETALOL HCL (100MG) 100 MG TABLET GT SCH ×2 (09:00→20:18)
[2017-03-19] MEDS: CARBOXYMETHYLCELLULOSE SODIUM 0.4 ML DROPERETTE EACHEYE SCH (09:40)
[2017-03-19] MEDS: LACTOBACILLUS RHAMNOSUS GG 1 EACH CAP.SPRINK GT SCH (09:40)
[2017-03-19] MEDS: OMEGA GT SCH ×3 (09:41→17:00)
[2017-03-19] MEDS: PROSOURCE / PROSTAT (PYXIS) 30 ML UDC GT SCH ×3 (09:41→17:00)
[2017-03-19] MEDS: LEVETIRACETAM SOL (5 ML) 100 MG/ML UDC GT SCH ×2 (09:41→20:17)
[2017-03-19] MEDS: CLOTRIMAZOLE 1% 15 GM TUBE TP SCH ×4 (09:42→20:19)
[2017-03-19] MEDS: ASCORBIC ACID 500 MG TABLET GT SCH ×2 (09:42→20:18)
[2017-03-19] MEDS: HYDROGEN PEROXIDE 480 ML BOTTLE TP SCH ×2 (09:42→20:19)
[2017-03-19] MEDS: COD LIVER OIL/ZINC OXIDE 120 GM TUBE TP SCH ×2 (09:42→20:19)
[2017-03-19] MEDS: Z GUARD REMEDY 4 OZ OINT TP SCH ×2 (09:42→20:19)
[2017-03-19] MEDS: CHOLESTYRAMINE/ASPARTAME 4 G/PKT PACKET GT SCH (12:00)
[2017-03-19] MEDS: MULTIVIT, IRON, MIN NO. 8, FA 1 TAB GT SCH (20:17)
[2017-03-19] MEDS: GLYTROL 1,000 ML BAG GT PRN (21:23)
[2017-03-19] MEDS: VALSARTAN 40 MG TABLET GT SCH (22:00)
[2017-03-20] VITALS (7 sets, daily range): BP systolic 102–140; BP diastolic 63–87
[2017-03-20] MEDS: ALBUTEROL FS 2.5 MG/3 ML VIAL.NEB NEB SCH ×4 (01:05→19:30)
[2017-03-20] MEDS: IPRATROPIUM NEB FS 0.5 MG/2.5 ML AMPUL.NEB IH SCH ×4 (01:05→19:30)
[2017-03-20] MEDS: PANTOPRAZOLE 40 MG/PACK PACK GT SCH (05:14)
[2017-03-20] MEDS: LEVOTHYROXINE SODIUM 88 MCG TABLET GT SCH (05:14)
[2017-03-20] MEDS: ASCORBIC ACID 500 MG TABLET GT SCH ×2 (09:11→20:27)
[2017-03-20] MEDS: LABETALOL HCL (100MG) 100 MG TABLET GT SCH ×2 (09:11→20:26)
[2017-03-20] MEDS: OMEGA GT SCH ×3 (09:11→17:24)
[2017-03-20] MEDS: PROSOURCE / PROSTAT (PYXIS) 30 ML UDC GT SCH ×3 (09:11→17:24)
[2017-03-20] MEDS: LEVETIRACETAM SOL (5 ML) 100 MG/ML UDC GT SCH ×2 (09:11→20:25)
[2017-03-20] MEDS: LACTOBACILLUS RHAMNOSUS GG 1 EACH CAP.SPRINK GT SCH (09:11)
[2017-03-20] MEDS: CARBOXYMETHYLCELLULOSE SODIUM 0.4 ML DROPERETTE EACHEYE SCH (09:11)
[2017-03-20] MEDS: CLOTRIMAZOLE 1% 15 GM TUBE TP SCH ×4 (09:12→20:28)
[2017-03-20] MEDS: COD LIVER OIL/ZINC OXIDE 120 GM TUBE TP SCH ×2 (09:12→20:27)
[2017-03-20] MEDS: HYDROGEN PEROXIDE 480 ML BOTTLE TP SCH ×2 (09:12→20:27)
[2017-03-20] MEDS: Z GUARD REMEDY 4 OZ OINT TP SCH ×2 (09:13→20:28)
[2017-03-20] MEDS: CHOLESTYRAMINE/ASPARTAME 4 G/PKT PACKET GT SCH (12:50)
[2017-03-20] MEDS: MULTIVIT, IRON, MIN NO. 8, FA 1 TAB GT SCH (20:26)
[2017-03-20] MEDS: VALSARTAN 40 MG TABLET GT SCH (22:34)
[2017-03-20] MEDS: GLYTROL 1,000 ML BAG GT PRN (23:50)
[2017-03-21] VITALS (7 sets, daily range): BP systolic 97–137; BP diastolic 52–72
[2017-03-21] MEDS: ALBUTEROL FS 2.5 MG/3 ML VIAL.NEB NEB SCH ×4 (02:22→19:50)
[2017-03-21] MEDS: IPRATROPIUM NEB FS 0.5 MG/2.5 ML AMPUL.NEB IH SCH ×4 (02:22→19:50)
[2017-03-21] MEDS: PANTOPRAZOLE 40 MG/PACK PACK GT SCH (05:09)
[2017-03-21] MEDS: LEVOTHYROXINE SODIUM 88 MCG TABLET GT SCH (05:09)
[2017-03-21] MEDS: CARBOXYMETHYLCELLULOSE SODIUM 0.4 ML DROPERETTE EACHEYE SCH (09:44)
[2017-03-21] MEDS: LEVETIRACETAM SOL (5 ML) 100 MG/ML UDC GT SCH ×2 (09:44→20:39)
[2017-03-21] MEDS: LACTOBACILLUS RHAMNOSUS GG 1 EACH CAP.SPRINK GT SCH (09:44)
[2017-03-21] MEDS: ASCORBIC ACID 500 MG TABLET GT SCH ×2 (09:44→20:41)
[2017-03-21] MEDS: OMEGA GT SCH ×3 (09:44→17:43)
[2017-03-21] MEDS: PROSOURCE / PROSTAT (PYXIS) 30 ML UDC GT SCH ×3 (09:44→17:43)
[2017-03-21] MEDS: LABETALOL HCL (100MG) 100 MG TABLET GT SCH ×2 (09:44→20:41)
[2017-03-21] MEDS: COD LIVER OIL/ZINC OXIDE 120 GM TUBE TP SCH ×2 (09:45→20:41)
[2017-03-21] MEDS: HYDROGEN PEROXIDE 480 ML BOTTLE TP SCH ×2 (09:45→20:41)
[2017-03-21] MEDS: CLOTRIMAZOLE 1% 15 GM TUBE TP SCH ×4 (09:45→20:41)
[2017-03-21] MEDS: Z GUARD REMEDY 4 OZ OINT TP SCH ×2 (09:45→20:41)
[2017-03-21] MEDS: CHOLESTYRAMINE/ASPARTAME 4 G/PKT PACKET GT SCH (12:00)
[2017-03-21] MEDS: MULTIVIT, IRON, MIN NO. 8, FA 1 TAB GT SCH (20:40)
[2017-03-21] MEDS: VALSARTAN 40 MG TABLET GT SCH (22:00)
[2017-03-21] MEDS: GLYTROL 1,000 ML BAG GT PRN (23:08)
[2017-03-22] VITALS (8 sets, daily range): BP systolic 100–124; BP diastolic 49–67
[2017-03-22] MEDS: IPRATROPIUM NEB FS 0.5 MG/2.5 ML AMPUL.NEB IH SCH ×4 (02:26→19:41)
[2017-03-22] MEDS: ALBUTEROL FS 2.5 MG/3 ML VIAL.NEB NEB SCH ×4 (02:26→19:41)
[2017-03-22] MEDS: LEVOTHYROXINE SODIUM 88 MCG TABLET GT SCH (06:07)
[2017-03-22] MEDS: PANTOPRAZOLE 40 MG/PACK PACK GT SCH (06:07)
[2017-03-22] MEDS: HYDROGEN PEROXIDE 480 ML BOTTLE TP SCH ×2 (09:00→20:09)
[2017-03-22] MEDS: LABETALOL HCL (100MG) 100 MG TABLET GT SCH ×2 (09:00→20:08)
[2017-03-22] MEDS: COD LIVER OIL/ZINC OXIDE 120 GM TUBE TP SCH ×2 (09:00→20:09)
[2017-03-22] MEDS: ASCORBIC ACID 500 MG TABLET GT SCH ×2 (09:00→20:08)
[2017-03-22] MEDS: CLOTRIMAZOLE 1% 15 GM TUBE TP SCH ×4 (09:00→20:09)
[2017-03-22] MEDS: Z GUARD REMEDY 4 OZ OINT TP SCH ×2 (09:00→20:09)
[2017-03-22] MEDS: OMEGA GT SCH ×3 (09:56→17:51)
[2017-03-22] MEDS: LEVETIRACETAM SOL (5 ML) 100 MG/ML UDC GT SCH ×2 (09:56→20:06)
[2017-03-22] MEDS: CARBOXYMETHYLCELLULOSE SODIUM 0.4 ML DROPERETTE EACHEYE SCH (09:56)
[2017-03-22] MEDS: PROSOURCE / PROSTAT (PYXIS) 30 ML UDC GT SCH ×3 (09:56→17:51)
[2017-03-22] MEDS: LACTOBACILLUS RHAMNOSUS GG 1 EACH CAP.SPRINK GT SCH (09:56)
[2017-03-22] MEDS: CHOLESTYRAMINE/ASPARTAME 4 G/PKT PACKET GT SCH (12:00)
[2017-03-22] MEDS: MULTIVIT, IRON, MIN NO. 8, FA 1 TAB GT SCH (20:07)
[2017-03-22] MEDS: GLYTROL 1,000 ML BAG GT PRN (21:26)
[2017-03-22] MEDS: VALSARTAN 40 MG TABLET GT SCH (22:00)
[2017-03-23] VITALS (8 sets, daily range): BP systolic 92–129; BP diastolic 56–92
[2017-03-23] MEDS: ALBUTEROL FS 2.5 MG/3 ML VIAL.NEB NEB SCH ×4 (00:52→20:07)
[2017-03-23] MEDS: IPRATROPIUM NEB FS 0.5 MG/2.5 ML AMPUL.NEB IH SCH ×4 (00:52→20:07)
[2017-03-23] MEDS: PANTOPRAZOLE 40 MG/PACK PACK GT SCH (05:03)
[2017-03-23] MEDS: LEVOTHYROXINE SODIUM 88 MCG TABLET GT SCH (05:04)
[2017-03-23] MEDS: LABETALOL HCL (100MG) 100 MG TABLET GT SCH ×2 (08:19→20:53)
[2017-03-23] MEDS: LEVETIRACETAM SOL (5 ML) 100 MG/ML UDC GT SCH ×2 (08:19→20:53)
[2017-03-23] MEDS: ASCORBIC ACID 500 MG TABLET GT SCH ×2 (08:19→20:53)
[2017-03-23] MEDS: CARBOXYMETHYLCELLULOSE SODIUM 0.4 ML DROPERETTE EACHEYE SCH (08:19)
[2017-03-23] MEDS: PROSOURCE / PROSTAT (PYXIS) 30 ML UDC GT SCH ×3 (08:19→16:28)
[2017-03-23] MEDS: LACTOBACILLUS RHAMNOSUS GG 1 EACH CAP.SPRINK GT SCH (08:19)
[2017-03-23] MEDS: HYDROGEN PEROXIDE 480 ML BOTTLE TP SCH ×2 (08:19→20:53)
[2017-03-23] MEDS: CLOTRIMAZOLE 1% 15 GM TUBE TP SCH ×4 (08:19→20:53)
[2017-03-23] MEDS: OMEGA GT SCH ×3 (08:19→16:28)
[2017-03-23] MEDS: COD LIVER OIL/ZINC OXIDE 120 GM TUBE TP SCH ×2 (08:19→20:53)
[2017-03-23] MEDS: Z GUARD REMEDY 4 OZ OINT TP SCH ×2 (08:20→20:53)
[2017-03-23] MEDS: CHOLESTYRAMINE/ASPARTAME 4 G/PKT PACKET GT SCH (12:01)
[2017-03-23] MEDS: MULTIVIT, IRON, MIN NO. 8, FA 1 TAB GT SCH (20:53)
[2017-03-23] MEDS: GLYTROL 1,000 ML BAG GT PRN (20:54)
[2017-03-23] MEDS ORDERED: VALSARTAN 80 MG TABLET ONE (22:44)
[2017-03-23] MEDS: VALSARTAN 40 MG TABLET GT SCH (22:46)
[2017-03-24] VITALS (9 sets, daily range): BP systolic 89–133; BP diastolic 48–65
[2017-03-24] MEDS: IPRATROPIUM NEB FS 0.5 MG/2.5 ML AMPUL.NEB IH SCH ×4 (01:30→19:35)
[2017-03-24] MEDS: ALBUTEROL FS 2.5 MG/3 ML VIAL.NEB NEB SCH ×4 (01:30→19:35)
[2017-03-24] MEDS: PANTOPRAZOLE 40 MG/PACK PACK GT SCH (05:49)
[2017-03-24] MEDS: LEVOTHYROXINE SODIUM 88 MCG TABLET GT SCH (05:49)
[2017-03-24] MEDS: CLOTRIMAZOLE 1% 15 GM TUBE TP SCH ×4 (09:00→21:43)
[2017-03-24] MEDS: CARBOXYMETHYLCELLULOSE SODIUM 0.4 ML DROPERETTE EACHEYE SCH (09:00)
[2017-03-24] MEDS: LEVETIRACETAM SOL (5 ML) 100 MG/ML UDC GT SCH ×2 (09:00→20:15)
[2017-03-24] MEDS: Z GUARD REMEDY 4 OZ OINT TP SCH ×2 (09:00→21:44)
[2017-03-24] MEDS: PROSOURCE / PROSTAT (PYXIS) 30 ML UDC GT SCH ×3 (09:00→17:00)
[2017-03-24] MEDS: LACTOBACILLUS RHAMNOSUS GG 1 EACH CAP.SPRINK GT SCH (09:00)
[2017-03-24] MEDS: ASCORBIC ACID 500 MG TABLET GT SCH ×2 (09:00→20:16)
[2017-03-24] MEDS: COD LIVER OIL/ZINC OXIDE 120 GM TUBE TP SCH ×2 (09:00→21:43)
[2017-03-24] MEDS: OMEGA GT SCH ×3 (09:00→17:00)
[2017-03-24] MEDS: LABETALOL HCL (100MG) 100 MG TABLET GT SCH ×2 (09:00→20:15)
[2017-03-24] MEDS: HYDROGEN PEROXIDE 480 ML BOTTLE TP SCH ×2 (09:00→21:43)
[2017-03-24] MEDS: CHOLESTYRAMINE/ASPARTAME 4 G/PKT PACKET GT SCH (12:00)
--- NOTE | 2017-03-24 14:32 | NUR ---
Seen and examined by Dr. Ramirez, assessed resident's rashes in the R scapula/arm and R posterior thigh. He said that it is drying up but it will have the scar. Continue with treatment.
[2017-03-24] MEDS: MULTIVIT, IRON, MIN NO. 8, FA 1 TAB GT SCH (20:15)
[2017-03-24] MEDS: VALSARTAN 40 MG TABLET GT SCH (22:00)
[2017-03-24] MEDS: GLYTROL 1,000 ML BAG GT PRN (22:55)
[2017-03-25] VITALS (8 sets, daily range): BP systolic 95–149; BP diastolic 51–64
[2017-03-25] MEDS: IPRATROPIUM NEB FS 0.5 MG/2.5 ML AMPUL.NEB IH SCH ×4 (01:33→19:21)
[2017-03-25] MEDS: ALBUTEROL FS 2.5 MG/3 ML VIAL.NEB NEB SCH ×4 (01:33→19:21)
[2017-03-25] MEDS: LEVOTHYROXINE SODIUM 88 MCG TABLET GT SCH (05:23)
[2017-03-25] MEDS: PANTOPRAZOLE 40 MG/PACK PACK GT SCH (05:23)
[2017-03-25] MEDS: LEVETIRACETAM SOL (5 ML) 100 MG/ML UDC GT SCH ×2 (08:40→20:29)
[2017-03-25] MEDS: CARBOXYMETHYLCELLULOSE SODIUM 0.4 ML DROPERETTE EACHEYE SCH (08:40)
[2017-03-25] MEDS: LACTOBACILLUS RHAMNOSUS GG 1 EACH CAP.SPRINK GT SCH (08:40)
[2017-03-25] MEDS: OMEGA GT SCH ×3 (08:40→16:16)
[2017-03-25] MEDS: PROSOURCE / PROSTAT (PYXIS) 30 ML UDC GT SCH ×3 (08:40→16:16)
[2017-03-25] MEDS: LABETALOL HCL (100MG) 100 MG TABLET GT SCH ×2 (08:41→20:32)
[2017-03-25] MEDS: COD LIVER OIL/ZINC OXIDE 120 GM TUBE TP SCH ×2 (08:41→20:33)
[2017-03-25] MEDS: ASCORBIC ACID 500 MG TABLET GT SCH ×2 (08:41→20:33)
[2017-03-25] MEDS: hydrALAZINE HCL 10 MG TABLET GT PRN ×2 (08:45→16:17)
[2017-03-25] MEDS: CLOTRIMAZOLE 1% 15 GM TUBE TP SCH ×4 (09:00→20:33)
[2017-03-25] MEDS: HYDROGEN PEROXIDE 480 ML BOTTLE TP SCH ×2 (09:00→20:33)
[2017-03-25] MEDS: Z GUARD REMEDY 4 OZ OINT TP SCH ×2 (09:00→20:33)
[2017-03-25] MEDS: CHOLESTYRAMINE/ASPARTAME 4 G/PKT PACKET GT SCH (11:11)
[2017-03-25] MEDS: MULTIVIT, IRON, MIN NO. 8, FA 1 TAB GT SCH (20:29)
[2017-03-25] MEDS: GLYTROL 1,000 ML BAG GT PRN (20:30)
[2017-03-25] MEDS: VALSARTAN 40 MG TABLET GT SCH (22:00)
[2017-03-26] VITALS (8 sets, daily range): BP systolic 102–131; BP diastolic 53–66
[2017-03-26] MEDS: ALBUTEROL FS 2.5 MG/3 ML VIAL.NEB NEB SCH ×4 (01:56→19:38)
[2017-03-26] MEDS: IPRATROPIUM NEB FS 0.5 MG/2.5 ML AMPUL.NEB IH SCH ×4 (01:56→19:38)
[2017-03-26] MEDS: LEVOTHYROXINE SODIUM 88 MCG TABLET GT SCH (05:30)
[2017-03-26] MEDS: PANTOPRAZOLE 40 MG/PACK PACK GT SCH (05:30)
[2017-03-26] MEDS: CARBOXYMETHYLCELLULOSE SODIUM 0.4 ML DROPERETTE EACHEYE SCH (08:29)
[2017-03-26] MEDS: LACTOBACILLUS RHAMNOSUS GG 1 EACH CAP.SPRINK GT SCH (08:29)
[2017-03-26] MEDS: OMEGA GT SCH ×3 (08:29→17:00)
[2017-03-26] MEDS: LEVETIRACETAM SOL (5 ML) 100 MG/ML UDC GT SCH ×2 (08:29→21:30)
[2017-03-26] MEDS: PROSOURCE / PROSTAT (PYXIS) 30 ML UDC GT SCH ×3 (08:30→17:00)
[2017-03-26] MEDS: LABETALOL HCL (100MG) 100 MG TABLET GT SCH ×2 (08:30→21:30)
[2017-03-26] MEDS: CLOTRIMAZOLE 1% 15 GM TUBE TP SCH ×4 (08:31→21:31)
[2017-03-26] MEDS: ASCORBIC ACID 500 MG TABLET GT SCH ×2 (08:31→21:30)
[2017-03-26] MEDS: COD LIVER OIL/ZINC OXIDE 120 GM TUBE TP SCH ×2 (08:31→21:31)
[2017-03-26] MEDS: HYDROGEN PEROXIDE 480 ML BOTTLE TP SCH ×2 (08:31→21:31)
[2017-03-26] MEDS: Z GUARD REMEDY 4 OZ OINT TP SCH ×2 (08:32→21:31)
[2017-03-26] MEDS: CHOLESTYRAMINE/ASPARTAME 4 G/PKT PACKET GT SCH (12:00)
[2017-03-26] MEDS: GLYTROL 1,000 ML BAG GT PRN (18:29)
[2017-03-26] MEDS: MULTIVIT, IRON, MIN NO. 8, FA 1 TAB GT SCH (21:30)
[2017-03-26] MEDS: VALSARTAN 40 MG TABLET GT SCH (21:34)
[2017-03-27] VITALS (8 sets, daily range): BP systolic 108–128; BP diastolic 55–64
[2017-03-27] MEDS: ALBUTEROL FS 2.5 MG/3 ML VIAL.NEB NEB SCH ×4 (01:26→19:21)
[2017-03-27] MEDS: IPRATROPIUM NEB FS 0.5 MG/2.5 ML AMPUL.NEB IH SCH ×4 (01:26→19:21)
[2017-03-27] MEDS: LEVOTHYROXINE SODIUM 88 MCG TABLET GT SCH (05:48)
[2017-03-27] MEDS: PANTOPRAZOLE 40 MG/PACK PACK GT SCH (05:48)
[2017-03-27] MEDS: COD LIVER OIL/ZINC OXIDE 120 GM TUBE TP SCH ×2 (09:00→21:13)
[2017-03-27] MEDS: CARBOXYMETHYLCELLULOSE SODIUM 0.4 ML DROPERETTE EACHEYE SCH (09:00)
[2017-03-27] MEDS: CLOTRIMAZOLE 1% 15 GM TUBE TP SCH ×4 (09:00→21:13)
[2017-03-27] MEDS: LABETALOL HCL (100MG) 100 MG TABLET GT SCH ×2 (09:00→21:13)
[2017-03-27] MEDS: LEVETIRACETAM SOL (5 ML) 100 MG/ML UDC GT SCH ×2 (09:00→21:12)
[2017-03-27] MEDS: LACTOBACILLUS RHAMNOSUS GG 1 EACH CAP.SPRINK GT SCH (09:00)
[2017-03-27] MEDS: PROSOURCE / PROSTAT (PYXIS) 30 ML UDC GT SCH ×3 (09:00→16:56)
[2017-03-27] MEDS: HYDROGEN PEROXIDE 480 ML BOTTLE TP SCH ×2 (09:00→21:13)
[2017-03-27] MEDS: OMEGA GT SCH ×3 (09:00→16:56)
[2017-03-27] MEDS: Z GUARD REMEDY 4 OZ OINT TP SCH ×2 (09:00→21:13)
[2017-03-27] MEDS: ASCORBIC ACID 500 MG TABLET GT SCH ×2 (09:00→21:13)
[2017-03-27] MEDS: CHOLESTYRAMINE/ASPARTAME 4 G/PKT PACKET GT SCH (12:00)
[2017-03-27] MEDS: GLYTROL 1,000 ML BAG GT PRN (15:51)
[2017-03-27] MEDS: MULTIVIT, IRON, MIN NO. 8, FA 1 TAB GT SCH (21:12)
[2017-03-27] MEDS: VALSARTAN 40 MG TABLET GT SCH (21:14)
[2017-03-28 02:14] VITALS: BP 111/62
[2017-03-28] MEDS: IPRATROPIUM NEB FS 0.5 MG/2.5 ML AMPUL.NEB IH SCH ×4 (02:15→19:16)
[2017-03-28] MEDS: ALBUTEROL FS 2.5 MG/3 ML VIAL.NEB NEB SCH ×4 (02:15→19:16)
[2017-03-28 05:20] VITALS: BP 116/58
[2017-03-28] MEDS: PANTOPRAZOLE 40 MG/PACK PACK GT SCH (06:03)
[2017-03-28] MEDS: LEVOTHYROXINE SODIUM 88 MCG TABLET GT SCH (06:03)
--- NOTE | 2017-03-28 07:00 | NUR ---
RN OPENING NOTE RECV'D REPORT FROM NOC RN. PT OBTUNDED. NONVERBAL. HOB ELEVATED COOL AEROSOL TRACH COLOR O2 SATS 100%. BED IN LOW LOCKED POSITION. WILL CONT TO MONITOR AND TURN Q2HRS.
--- NOTE | 2017-03-28 07:05 | NUR ---
RN OPENING NOTES RECV'D REPORT FROM TOREY RN. HOB ELEVATED. COOL AEROSOL TRACH COLLAR 95% O2 SATS. BED IN LOW LOCKED POSITION. WILL CONT TO MONITOR AND TURN Q2 HRS.
[2017-03-28 07:39] VITALS: BP 121/54
[2017-03-28] MEDS: LABETALOL HCL (100MG) 100 MG TABLET GT SCH ×2 (08:11→21:26)
[2017-03-28] MEDS: LACTOBACILLUS RHAMNOSUS GG 1 EACH CAP.SPRINK GT SCH (08:12)
[2017-03-28] MEDS: OMEGA GT SCH ×3 (08:13→16:52)
[2017-03-28] MEDS: LEVETIRACETAM SOL (5 ML) 100 MG/ML UDC GT SCH ×2 (08:13→21:26)
[2017-03-28] MEDS: CARBOXYMETHYLCELLULOSE SODIUM 0.4 ML DROPERETTE EACHEYE SCH (08:13)
[2017-03-28] MEDS: PROSOURCE / PROSTAT (PYXIS) 30 ML UDC GT SCH ×3 (08:13→16:52)
[2017-03-28] MEDS: ASCORBIC ACID 500 MG TABLET GT SCH ×2 (08:14→21:26)
[2017-03-28] MEDS: HYDROGEN PEROXIDE 480 ML BOTTLE TP SCH ×2 (08:15→21:26)
[2017-03-28] MEDS: CLOTRIMAZOLE 1% 15 GM TUBE TP SCH ×4 (08:15→21:26)
[2017-03-28] MEDS: Z GUARD REMEDY 4 OZ OINT TP SCH ×2 (08:16→21:26)
[2017-03-28] MEDS: COD LIVER OIL/ZINC OXIDE 120 GM TUBE TP SCH ×2 (08:16→21:26)
[2017-03-28 09:00] VITALS: BP 121/54
[2017-03-28] MEDS: CHOLESTYRAMINE/ASPARTAME 4 G/PKT PACKET GT SCH (12:51)
[2017-03-28] MEDS: GLYTROL 1,000 ML BAG GT PRN (13:59)
--- NOTE | 2017-03-28 17:57 | NUR ---
RN CLOSING NOTES PT STABLE THROUGHOUT SHIFT. HOB ELEVATED. COOL AEROSOL TRACH COLLAR 100% O2 SATS. BED IN LOW LOCKED POSITION. WILL ENDORSE TO NOC RN.
[2017-03-28 19:50] VITALS: BP 116/61
[2017-03-28] MEDS: MULTIVIT, IRON, MIN NO. 8, FA 1 TAB GT SCH (21:26)
[2017-03-28] MEDS: VALSARTAN 40 MG TABLET GT SCH (21:27)
[2017-03-29] VITALS (7 sets, daily range): BP systolic 93–124; BP diastolic 46–80
[2017-03-29] MEDS: ALBUTEROL FS 2.5 MG/3 ML VIAL.NEB NEB SCH ×4 (02:07→19:53)
[2017-03-29] MEDS: IPRATROPIUM NEB FS 0.5 MG/2.5 ML AMPUL.NEB IH SCH ×4 (02:07→19:53)
[2017-03-29] MEDS: PANTOPRAZOLE 40 MG/PACK PACK GT SCH (06:15)
[2017-03-29] MEDS: LEVOTHYROXINE SODIUM 88 MCG TABLET GT SCH (06:15)
[2017-03-29] MEDS: LABETALOL HCL (100MG) 100 MG TABLET GT SCH ×2 (09:00→21:14)
[2017-03-29] MEDS: COD LIVER OIL/ZINC OXIDE 120 GM TUBE TP SCH ×2 (09:00→21:14)
[2017-03-29] MEDS: CLOTRIMAZOLE 1% 15 GM TUBE TP SCH ×4 (09:00→21:14)
[2017-03-29] MEDS: HYDROGEN PEROXIDE 480 ML BOTTLE TP SCH ×2 (09:00→21:14)
[2017-03-29] MEDS: LEVETIRACETAM SOL (5 ML) 100 MG/ML UDC GT SCH ×2 (09:00→21:13)
[2017-03-29] MEDS: Z GUARD REMEDY 4 OZ OINT TP SCH ×2 (09:00→21:14)
[2017-03-29] MEDS: LACTOBACILLUS RHAMNOSUS GG 1 EACH CAP.SPRINK GT SCH (09:00)
[2017-03-29] MEDS ORDERED: TUBERCULIN,PURIF.PROT.DERIV. 5 TU/0.1 ML VIAL ID SCH (09:00)
[2017-03-29] MEDS: OMEGA GT SCH ×3 (09:00→17:00)
[2017-03-29] MEDS: CARBOXYMETHYLCELLULOSE SODIUM 0.4 ML DROPERETTE EACHEYE SCH (09:00)
[2017-03-29] MEDS: ASCORBIC ACID 500 MG TABLET GT SCH ×2 (09:00→21:14)
[2017-03-29] MEDS: PROSOURCE / PROSTAT (PYXIS) 30 ML UDC GT SCH ×3 (09:00→17:00)
[2017-03-29] MEDS: CHOLESTYRAMINE/ASPARTAME 4 G/PKT PACKET GT SCH (12:29)
[2017-03-29] MEDS: GLYTROL 1,000 ML BAG GT PRN (14:42)
--- NOTE | 2017-03-29 18:46 | NUR ---
PPD skin test given on right forearm per order, temperature 98.1 F, BP 124/67, HR 77, no respiratory distress noted, continue to monitor.
[2017-03-29] MEDS: MULTIVIT, IRON, MIN NO. 8, FA 1 TAB GT SCH (21:13)
[2017-03-29] MEDS: VALSARTAN 40 MG TABLET GT SCH (22:00)
[2017-03-30] VITALS (8 sets, daily range): BP systolic 98–123; BP diastolic 48–80
[2017-03-30] MEDS: ALBUTEROL FS 2.5 MG/3 ML VIAL.NEB NEB SCH ×4 (01:31→18:52)
[2017-03-30] MEDS: IPRATROPIUM NEB FS 0.5 MG/2.5 ML AMPUL.NEB IH SCH ×4 (01:31→18:52)
[2017-03-30] MEDS: PANTOPRAZOLE 40 MG/PACK PACK GT SCH (06:06)
[2017-03-30] MEDS: LEVOTHYROXINE SODIUM 88 MCG TABLET GT SCH (06:06)
[2017-03-30] MEDS: LABETALOL HCL (100MG) 100 MG TABLET GT SCH ×2 (09:00→21:00)
[2017-03-30] MEDS: PROSOURCE / PROSTAT (PYXIS) 30 ML UDC GT SCH ×3 (09:46→16:49)
[2017-03-30] MEDS: OMEGA GT SCH ×3 (09:46→16:49)
[2017-03-30] MEDS: CARBOXYMETHYLCELLULOSE SODIUM 0.4 ML DROPERETTE EACHEYE SCH (09:46)
[2017-03-30] MEDS: LACTOBACILLUS RHAMNOSUS GG 1 EACH CAP.SPRINK GT SCH (09:46)
[2017-03-30] MEDS: LEVETIRACETAM SOL (5 ML) 100 MG/ML UDC GT SCH ×2 (09:46→21:45)
[2017-03-30] MEDS: HYDROGEN PEROXIDE 480 ML BOTTLE TP SCH ×2 (09:47→21:46)
[2017-03-30] MEDS: Z GUARD REMEDY 4 OZ OINT TP SCH ×2 (09:47→21:46)
[2017-03-30] MEDS: CLOTRIMAZOLE 1% 15 GM TUBE TP SCH ×4 (09:47→21:46)
[2017-03-30] MEDS: COD LIVER OIL/ZINC OXIDE 120 GM TUBE TP SCH ×2 (09:47→21:46)
[2017-03-30] MEDS: ASCORBIC ACID 500 MG TABLET GT SCH ×2 (09:47→21:45)
[2017-03-30] MEDS: CHOLESTYRAMINE/ASPARTAME 4 G/PKT PACKET GT SCH (12:00)
[2017-03-30] MEDS: GLYTROL 1,000 ML BAG GT PRN (16:49)
[2017-03-30] MEDS: MULTIVIT, IRON, MIN NO. 8, FA 1 TAB GT SCH (21:45)
[2017-03-30] MEDS: VALSARTAN 40 MG TABLET GT SCH (22:00)
[2017-03-31] VITALS (8 sets, daily range): BP systolic 103–134; BP diastolic 52–80
[2017-03-31] MEDS: ALBUTEROL FS 2.5 MG/3 ML VIAL.NEB NEB SCH ×4 (01:31→19:43)
[2017-03-31] MEDS: IPRATROPIUM NEB FS 0.5 MG/2.5 ML AMPUL.NEB IH SCH ×4 (01:31→19:43)
[2017-03-31] MEDS: PANTOPRAZOLE 40 MG/PACK PACK GT SCH (06:08)
[2017-03-31] MEDS: LEVOTHYROXINE SODIUM 88 MCG TABLET GT SCH (06:08)
[2017-03-31] MEDS: LABETALOL HCL (100MG) 100 MG TABLET GT SCH ×2 (09:00→21:22)
[2017-03-31] MEDS: OMEGA GT SCH ×3 (09:44→16:48)
[2017-03-31] MEDS: CARBOXYMETHYLCELLULOSE SODIUM 0.4 ML DROPERETTE EACHEYE SCH (09:44)
[2017-03-31] MEDS: PROSOURCE / PROSTAT (PYXIS) 30 ML UDC GT SCH ×3 (09:44→16:48)
[2017-03-31] MEDS: LEVETIRACETAM SOL (5 ML) 100 MG/ML UDC GT SCH ×2 (09:44→21:22)
[2017-03-31] MEDS: LACTOBACILLUS RHAMNOSUS GG 1 EACH CAP.SPRINK GT SCH (09:44)
[2017-03-31] MEDS: ASCORBIC ACID 500 MG TABLET GT SCH ×2 (09:44→21:22)
[2017-03-31] MEDS: COD LIVER OIL/ZINC OXIDE 120 GM TUBE TP SCH ×2 (09:44→21:22)
[2017-03-31] MEDS: CLOTRIMAZOLE 1% 15 GM TUBE TP SCH ×4 (09:45→21:22)
[2017-03-31] MEDS: Z GUARD REMEDY 4 OZ OINT TP SCH ×2 (09:45→21:23)
[2017-03-31] MEDS: HYDROGEN PEROXIDE 480 ML BOTTLE TP SCH ×2 (09:45→21:22)
[2017-03-31] MEDS: CHOLESTYRAMINE/ASPARTAME 4 G/PKT PACKET GT SCH (11:33)
[2017-03-31] MEDS: MULTIVIT, IRON, MIN NO. 8, FA 1 TAB GT SCH (21:22)
[2017-03-31] MEDS: VALSARTAN 40 MG TABLET GT SCH (22:00)
[2017-04-01] VITALS (9 sets, daily range): BP systolic 99–112; BP diastolic 48–60
[2017-04-01] MEDS: IPRATROPIUM NEB FS 0.5 MG/2.5 ML AMPUL.NEB IH SCH ×4 (02:25→19:36)
[2017-04-01] MEDS: ALBUTEROL FS 2.5 MG/3 ML VIAL.NEB NEB SCH ×4 (02:25→19:36)
[2017-04-01] MEDS: PANTOPRAZOLE 40 MG/PACK PACK GT SCH (05:42)
[2017-04-01] MEDS: LEVOTHYROXINE SODIUM 88 MCG TABLET GT SCH (05:42)
[2017-04-01] MEDS: LABETALOL HCL (100MG) 100 MG TABLET GT SCH ×2 (09:00→21:50)
[2017-04-01] MEDS: PROSOURCE / PROSTAT (PYXIS) 30 ML UDC GT SCH ×3 (09:38→17:03)
[2017-04-01] MEDS: OMEGA GT SCH ×3 (09:38→17:03)
[2017-04-01] MEDS: CARBOXYMETHYLCELLULOSE SODIUM 0.4 ML DROPERETTE EACHEYE SCH (09:38)
[2017-04-01] MEDS: LACTOBACILLUS RHAMNOSUS GG 1 EACH CAP.SPRINK GT SCH (09:38)
[2017-04-01] MEDS: Z GUARD REMEDY 4 OZ OINT TP SCH ×2 (09:38→21:52)
[2017-04-01] MEDS: LEVETIRACETAM SOL (5 ML) 100 MG/ML UDC GT SCH ×2 (09:38→21:50)
[2017-04-01] MEDS: ASCORBIC ACID 500 MG TABLET GT SCH ×2 (09:38→21:51)
[2017-04-01] MEDS: CLOTRIMAZOLE 1% 15 GM TUBE TP SCH ×4 (09:38→21:52)
[2017-04-01] MEDS: HYDROGEN PEROXIDE 480 ML BOTTLE TP SCH ×2 (09:38→21:51)
[2017-04-01] MEDS: COD LIVER OIL/ZINC OXIDE 120 GM TUBE TP SCH ×2 (09:38→21:51)
[2017-04-01] MEDS: CHOLESTYRAMINE/ASPARTAME 4 G/PKT PACKET GT SCH (11:31)
[2017-04-01] MEDS: GLYTROL 1,000 ML BAG GT PRN (17:21)
[2017-04-01] MEDS: MULTIVIT, IRON, MIN NO. 8, FA 1 TAB GT SCH (21:50)
[2017-04-01] MEDS: VALSARTAN 40 MG TABLET GT SCH (22:00)
[2017-04-02] VITALS (7 sets, daily range): BP systolic 100–120; BP diastolic 60–65
[2017-04-02] MEDS: ALBUTEROL FS 2.5 MG/3 ML VIAL.NEB NEB SCH ×4 (00:36→19:53)
[2017-04-02] MEDS: IPRATROPIUM NEB FS 0.5 MG/2.5 ML AMPUL.NEB IH SCH ×4 (00:36→19:53)
[2017-04-02] MEDS: PANTOPRAZOLE 40 MG/PACK PACK GT SCH (05:17)
[2017-04-02] MEDS: LEVOTHYROXINE SODIUM 88 MCG TABLET GT SCH (05:17)
[2017-04-02] MEDS: LABETALOL HCL (100MG) 100 MG TABLET GT SCH ×2 (09:00→21:22)
[2017-04-02] MEDS: Z GUARD REMEDY 4 OZ OINT TP SCH ×2 (09:00→21:22)
[2017-04-02] MEDS: CLOTRIMAZOLE 1% 15 GM TUBE TP SCH ×4 (09:00→21:22)
[2017-04-02] MEDS: HYDROGEN PEROXIDE 480 ML BOTTLE TP SCH ×2 (09:00→21:22)
[2017-04-02] MEDS: CARBOXYMETHYLCELLULOSE SODIUM 0.4 ML DROPERETTE EACHEYE SCH (09:14)
[2017-04-02] MEDS: OMEGA GT SCH ×3 (09:15→17:28)
[2017-04-02] MEDS: LACTOBACILLUS RHAMNOSUS GG 1 EACH CAP.SPRINK GT SCH (09:17)
[2017-04-02] MEDS: LEVETIRACETAM SOL (5 ML) 100 MG/ML UDC GT SCH ×2 (09:18→21:20)
[2017-04-02] MEDS: PROSOURCE / PROSTAT (PYXIS) 30 ML UDC GT SCH ×3 (09:18→17:28)
[2017-04-02] MEDS: ASCORBIC ACID 500 MG TABLET GT SCH ×2 (09:20→21:22)
[2017-04-02] MEDS: COD LIVER OIL/ZINC OXIDE 120 GM TUBE TP SCH ×2 (10:00→21:22)
[2017-04-02] MEDS: CHOLESTYRAMINE/ASPARTAME 4 G/PKT PACKET GT SCH (12:11)
[2017-04-02] MEDS: GLYTROL 1,000 ML BAG GT PRN (17:54)
[2017-04-02] MEDS: MULTIVIT, IRON, MIN NO. 8, FA 1 TAB GT SCH (21:21)
[2017-04-02] MEDS: VALSARTAN 40 MG TABLET GT SCH (21:22)
[2017-04-03] VITALS (8 sets, daily range): BP systolic 101–119; BP diastolic 56–67
[2017-04-03] MEDS: ALBUTEROL FS 2.5 MG/3 ML VIAL.NEB NEB SCH ×4 (02:09→19:30)
[2017-04-03] MEDS: IPRATROPIUM NEB FS 0.5 MG/2.5 ML AMPUL.NEB IH SCH ×4 (02:09→19:30)
[2017-04-03] MEDS: LEVOTHYROXINE SODIUM 88 MCG TABLET GT SCH (06:22)
[2017-04-03] MEDS: PANTOPRAZOLE 40 MG/PACK PACK GT SCH (06:22)
[2017-04-03] MEDS: Z GUARD REMEDY 4 OZ OINT TP SCH ×2 (09:00→21:13)
[2017-04-03] MEDS: HYDROGEN PEROXIDE 480 ML BOTTLE TP SCH ×2 (09:00→21:13)
[2017-04-03] MEDS: LEVETIRACETAM SOL (5 ML) 100 MG/ML UDC GT SCH ×2 (09:00→21:12)
[2017-04-03] MEDS: CLOTRIMAZOLE 1% 15 GM TUBE TP SCH ×4 (09:00→21:13)
[2017-04-03] MEDS: OMEGA GT SCH ×3 (09:07→17:10)
[2017-04-03] MEDS: LABETALOL HCL (100MG) 100 MG TABLET GT SCH ×2 (09:07→21:12)
[2017-04-03] MEDS: PROSOURCE / PROSTAT (PYXIS) 30 ML UDC GT SCH ×3 (09:07→17:10)
[2017-04-03] MEDS: COD LIVER OIL/ZINC OXIDE 120 GM TUBE TP SCH ×2 (09:07→21:12)
[2017-04-03] MEDS: LACTOBACILLUS RHAMNOSUS GG 1 EACH CAP.SPRINK GT SCH (09:07)
[2017-04-03] MEDS: CARBOXYMETHYLCELLULOSE SODIUM 0.4 ML DROPERETTE EACHEYE SCH (09:07)
[2017-04-03] MEDS: ASCORBIC ACID 500 MG TABLET GT SCH ×2 (09:07→21:12)
[2017-04-03] MEDS: hydrALAZINE HCL 10 MG TABLET GT PRN ×3 (09:12→17:11)
[2017-04-03] MEDS: CHOLESTYRAMINE/ASPARTAME 4 G/PKT PACKET GT SCH (12:00)
[2017-04-03] MEDS: GLYTROL 1,000 ML BAG GT PRN (17:08)
[2017-04-03] MEDS: MULTIVIT, IRON, MIN NO. 8, FA 1 TAB GT SCH (21:12)
[2017-04-03] MEDS: VALSARTAN 40 MG TABLET GT SCH (21:13)
[2017-04-04] VITALS (8 sets, daily range): BP systolic 96–128; BP diastolic 51–62
[2017-04-04] MEDS: IPRATROPIUM NEB FS 0.5 MG/2.5 ML AMPUL.NEB IH SCH ×4 (01:51→19:44)
[2017-04-04] MEDS: ALBUTEROL FS 2.5 MG/3 ML VIAL.NEB NEB SCH ×4 (01:51→19:44)
[2017-04-04] MEDS: LEVOTHYROXINE SODIUM 88 MCG TABLET GT SCH (05:54)
[2017-04-04] MEDS: PANTOPRAZOLE 40 MG/PACK PACK GT SCH (05:54)
[2017-04-04] MEDS: LACTOBACILLUS RHAMNOSUS GG 1 EACH CAP.SPRINK GT SCH (09:30)
[2017-04-04] MEDS: CARBOXYMETHYLCELLULOSE SODIUM 0.4 ML DROPERETTE EACHEYE SCH (09:30)
[2017-04-04] MEDS: OMEGA GT SCH ×3 (09:31→17:00)
[2017-04-04] MEDS: LEVETIRACETAM SOL (5 ML) 100 MG/ML UDC GT SCH ×2 (09:31→21:22)
[2017-04-04] MEDS: PROSOURCE / PROSTAT (PYXIS) 30 ML UDC GT SCH ×3 (09:34→17:00)
[2017-04-04] MEDS: LABETALOL HCL (100MG) 100 MG TABLET GT SCH ×2 (09:35→21:23)
[2017-04-04] MEDS: COD LIVER OIL/ZINC OXIDE 120 GM TUBE TP SCH ×2 (09:35→21:23)
[2017-04-04] MEDS: ASCORBIC ACID 500 MG TABLET GT SCH ×2 (09:35→21:23)
[2017-04-04] MEDS: CLOTRIMAZOLE 1% 15 GM TUBE TP SCH ×4 (09:36→21:23)
[2017-04-04] MEDS: HYDROGEN PEROXIDE 480 ML BOTTLE TP SCH ×2 (09:36→21:23)
[2017-04-04] MEDS: Z GUARD REMEDY 4 OZ OINT TP SCH ×2 (09:37→21:23)
[2017-04-04] MEDS: CHOLESTYRAMINE/ASPARTAME 4 G/PKT PACKET GT SCH (11:44)
[2017-04-04] MEDS: MULTIVIT, IRON, MIN NO. 8, FA 1 TAB GT SCH (21:22)
[2017-04-04] MEDS: VALSARTAN 40 MG TABLET GT SCH (21:23)
[2017-04-05] VITALS (9 sets, daily range): BP systolic 85–129; BP diastolic 42–67
[2017-04-05] MEDS: IPRATROPIUM NEB FS 0.5 MG/2.5 ML AMPUL.NEB IH SCH ×4 (01:41→19:39)
[2017-04-05] MEDS: ALBUTEROL FS 2.5 MG/3 ML VIAL.NEB NEB SCH ×4 (01:41→19:39)
[2017-04-05] MEDS: PANTOPRAZOLE 40 MG/PACK PACK GT SCH (06:07)
[2017-04-05] MEDS: LEVOTHYROXINE SODIUM 88 MCG TABLET GT SCH (06:07)
[2017-04-05] MEDS: LABETALOL HCL (100MG) 100 MG TABLET GT SCH ×2 (09:00→20:25)
[2017-04-05] MEDS: CARBOXYMETHYLCELLULOSE SODIUM 0.4 ML DROPERETTE EACHEYE SCH (09:22)
[2017-04-05] MEDS: LACTOBACILLUS RHAMNOSUS GG 1 EACH CAP.SPRINK GT SCH (09:23)
[2017-04-05] MEDS: OMEGA GT SCH ×3 (09:24→17:57)
[2017-04-05] MEDS: PROSOURCE / PROSTAT (PYXIS) 30 ML UDC GT SCH ×3 (09:24→17:57)
[2017-04-05] MEDS: LEVETIRACETAM SOL (5 ML) 100 MG/ML UDC GT SCH ×2 (09:25→20:25)
[2017-04-05] MEDS: ASCORBIC ACID 500 MG TABLET GT SCH ×2 (09:27→20:25)
[2017-04-05] MEDS: COD LIVER OIL/ZINC OXIDE 120 GM TUBE TP SCH ×2 (09:27→20:25)
[2017-04-05] MEDS: HYDROGEN PEROXIDE 480 ML BOTTLE TP SCH ×2 (09:28→20:26)
[2017-04-05] MEDS: Z GUARD REMEDY 4 OZ OINT TP SCH ×2 (09:28→20:26)
[2017-04-05] MEDS: CLOTRIMAZOLE 1% 15 GM TUBE TP SCH ×2 (09:28)
[2017-04-05] MEDS: CHOLESTYRAMINE/ASPARTAME 4 G/PKT PACKET GT SCH (12:34)
[2017-04-05] MEDS: MULTIVIT, IRON, MIN NO. 8, FA 1 TAB GT SCH (20:25)
[2017-04-05] MEDS: GLYTROL 1,000 ML BAG GT PRN (20:26)
[2017-04-05] MEDS: VALSARTAN 40 MG TABLET GT SCH (22:00)
[2017-04-06] VITALS (8 sets, daily range): BP systolic 90–136; BP diastolic 54–74
[2017-04-06] MEDS: ALBUTEROL FS 2.5 MG/3 ML VIAL.NEB NEB SCH ×4 (00:56→19:55)
[2017-04-06] MEDS: IPRATROPIUM NEB FS 0.5 MG/2.5 ML AMPUL.NEB IH SCH ×4 (00:56→19:55)
[2017-04-06] MEDS: PANTOPRAZOLE 40 MG/PACK PACK GT SCH (05:08)
[2017-04-06] MEDS: LEVOTHYROXINE SODIUM 88 MCG TABLET GT SCH (05:08)
[2017-04-06] MEDS: LEVETIRACETAM SOL (5 ML) 100 MG/ML UDC GT SCH ×2 (09:00→20:00)
[2017-04-06] MEDS: COD LIVER OIL/ZINC OXIDE 120 GM TUBE TP SCH ×2 (09:00→20:00)
[2017-04-06] MEDS: LACTOBACILLUS RHAMNOSUS GG 1 EACH CAP.SPRINK GT SCH (09:00)
[2017-04-06] MEDS: Z GUARD REMEDY 4 OZ OINT TP SCH (09:00)
[2017-04-06] MEDS: LABETALOL HCL (100MG) 100 MG TABLET GT SCH ×2 (09:00→20:00)
[2017-04-06] MEDS: PROSOURCE / PROSTAT (PYXIS) 30 ML UDC GT SCH ×3 (09:00→17:55)
[2017-04-06] MEDS: HYDROGEN PEROXIDE 480 ML BOTTLE TP SCH ×2 (09:00→20:01)
[2017-04-06] MEDS: CARBOXYMETHYLCELLULOSE SODIUM 0.4 ML DROPERETTE EACHEYE SCH (09:00)
[2017-04-06] MEDS: ASCORBIC ACID 500 MG TABLET GT SCH ×2 (09:00→20:00)
[2017-04-06] MEDS: OMEGA GT SCH ×3 (09:00→17:55)
[2017-04-06] MEDS: CHOLESTYRAMINE/ASPARTAME 4 G/PKT PACKET GT SCH (12:05)
[2017-04-06] MEDS: MULTIVIT, IRON, MIN NO. 8, FA 1 TAB GT SCH (20:00)
[2017-04-06] MEDS: VALSARTAN 40 MG TABLET GT SCH (21:32)
[2017-04-06] MEDS: GLYTROL 1,000 ML BAG GT PRN (22:39)
[2017-04-07] VITALS (8 sets, daily range): BP systolic 93–121; BP diastolic 48–72
[2017-04-07] MEDS: ALBUTEROL FS 2.5 MG/3 ML VIAL.NEB NEB SCH ×4 (02:10→19:33)
[2017-04-07] MEDS: IPRATROPIUM NEB FS 0.5 MG/2.5 ML AMPUL.NEB IH SCH ×4 (02:10→19:33)
[2017-04-07] MEDS: LEVOTHYROXINE SODIUM 88 MCG TABLET GT SCH (05:08)
[2017-04-07] MEDS: PANTOPRAZOLE 40 MG/PACK PACK GT SCH (05:08)
[2017-04-07] MEDS: LABETALOL HCL (100MG) 100 MG TABLET GT SCH ×2 (09:00→20:11)
--- NOTE | 2017-04-07 09:09 | NUR ---
Social Service Section of [facility] (annual) completed. Resident is non-communicative. Her daughters are involved in her care and visit frequently. Her DPOA is her daughter Reyna. Resident is DNR code status. DPOA/Dtr Reyna has decided not to currently initiate hospice care and resident will remain in subacute. Resident has a trach and g-tube and is receiving ROM exercises daily 5 days a week with skin checks every two hours to prevent redness or skin changes. Resident was seen by the dentist Dr. Fany ANN on 03/06/2017 for her annual exam, by warehouse shipping supervisor Dr. Martins on 11/25/2016, and by residential treatment counselor Dr. Blum on 03/24/2017.
[2017-04-07] MEDS: COD LIVER OIL/ZINC OXIDE 120 GM TUBE TP SCH ×2 (09:48→20:11)
[2017-04-07] MEDS: CARBOXYMETHYLCELLULOSE SODIUM 0.4 ML DROPERETTE EACHEYE SCH (09:48)
[2017-04-07] MEDS: LACTOBACILLUS RHAMNOSUS GG 1 EACH CAP.SPRINK GT SCH (09:48)
[2017-04-07] MEDS: OMEGA GT SCH ×3 (09:48→17:00)
[2017-04-07] MEDS: ASCORBIC ACID 500 MG TABLET GT SCH ×2 (09:48→20:11)
[2017-04-07] MEDS: PROSOURCE / PROSTAT (PYXIS) 30 ML UDC GT SCH ×3 (09:48→17:00)
[2017-04-07] MEDS: HYDROGEN PEROXIDE 480 ML BOTTLE TP SCH ×2 (09:48→20:11)
[2017-04-07] MEDS: LEVETIRACETAM SOL (5 ML) 100 MG/ML UDC GT SCH ×2 (09:48→20:10)
[2017-04-07] MEDS: CHOLESTYRAMINE/ASPARTAME 4 G/PKT PACKET GT SCH (11:40)
[2017-04-07] MEDS: GLYTROL 1,000 ML BAG GT PRN (18:28)
[2017-04-07] MEDS: MULTIVIT, IRON, MIN NO. 8, FA 1 TAB GT SCH (20:10)
--- NOTE | 2017-04-07 20:30 | NUR ---
PT NOTED WITH EXCORIATION TO SACRAL AREA, GENTLE TELLY CARE RENDERED, PHOTO TAKEN, TX INITIATED, ORDER FOR WOUND CONSULT. PT ON DIANE BED FOR WOUND MANAGEMENT, WILL REPOSITION Q 2 HRS AND KEEP PT CLEAN AND DRY. CONT TO MONITOR.
[2017-04-07] MEDS: VALSARTAN 40 MG TABLET GT SCH (21:05)
[2017-04-08] VITALS (7 sets, daily range): BP systolic 97–121; BP diastolic 58–80
[2017-04-08] MEDS: IPRATROPIUM NEB FS 0.5 MG/2.5 ML AMPUL.NEB IH SCH ×4 (02:05→19:23)
[2017-04-08] MEDS: ALBUTEROL FS 2.5 MG/3 ML VIAL.NEB NEB SCH ×4 (02:05→19:23)
[2017-04-08] MEDS: PANTOPRAZOLE 40 MG/PACK PACK GT SCH (05:04)
[2017-04-08] MEDS: LEVOTHYROXINE SODIUM 88 MCG TABLET GT SCH (05:04)
[2017-04-08] MEDS: CARBOXYMETHYLCELLULOSE SODIUM 0.4 ML DROPERETTE EACHEYE SCH (09:00)
[2017-04-08] MEDS: LACTOBACILLUS RHAMNOSUS GG 1 EACH CAP.SPRINK GT SCH (09:00)
[2017-04-08] MEDS: ASCORBIC ACID 500 MG TABLET GT SCH ×2 (09:00→20:32)
[2017-04-08] MEDS: COD LIVER OIL/ZINC OXIDE 120 GM TUBE TP SCH ×2 (09:00→20:32)
[2017-04-08] MEDS: LABETALOL HCL (100MG) 100 MG TABLET GT SCH ×2 (09:00→20:31)
[2017-04-08] MEDS: PROSOURCE / PROSTAT (PYXIS) 30 ML UDC GT SCH ×3 (09:00→17:00)
[2017-04-08] MEDS: OMEGA GT SCH ×3 (09:00→17:00)
[2017-04-08] MEDS: HYDROGEN PEROXIDE 480 ML BOTTLE TP SCH ×2 (09:00→20:32)
[2017-04-08] MEDS: LEVETIRACETAM SOL (5 ML) 100 MG/ML UDC GT SCH ×2 (09:00→20:31)
[2017-04-08] MEDS: CHOLESTYRAMINE/ASPARTAME 4 G/PKT PACKET GT SCH (11:33)
--- NOTE | 2017-04-08 11:45 | NUR ---
Seen and examined by Dr. Ramirez, notified that during first VS check, obtained low B/P of 78/47, placed patient in Trendelenburg position for 1 hour and it went up to 105/56. No new order given. Resident's V/s stable ever since.
[2017-04-08] MEDS: MULTIVIT, IRON, MIN NO. 8, FA 1 TAB GT SCH (20:31)
[2017-04-08] MEDS: Z GUARD REMEDY 4 OZ OINT TP SCH (20:32)
[2017-04-08] MEDS: VALSARTAN 40 MG TABLET GT SCH (21:06)
--- NOTE | 2017-04-08 21:26 | NUR ---
PT'S DAUGHTER - UMANG BETTS @ [facility], UPDATED REGARDING PT'S CONDITION AND CARE , ALSO UPDATED REGARDING PT'S SACRAL EXCORIATION. HELD NOC B/P MEDS FOR 2100 AND 0 / ORDERED; PER PARAMATERS ,WITH LATEST BP : 107/ 59 HR 60, NO SOB NOTED. PT CLEAN AND DRY AT THIS TIME,REPOSITIONED BY TAXI PROPRIETOR.
[2017-04-09] VITALS (7 sets, daily range): BP systolic 102–130; BP diastolic 55–77
[2017-04-09] MEDS: ALBUTEROL FS 2.5 MG/3 ML VIAL.NEB NEB SCH ×4 (01:39→19:13)
[2017-04-09] MEDS: IPRATROPIUM NEB FS 0.5 MG/2.5 ML AMPUL.NEB IH SCH ×4 (01:39→19:13)
[2017-04-09] MEDS: GLYTROL 1,000 ML BAG GT PRN (04:59)
[2017-04-09] MEDS: LEVOTHYROXINE SODIUM 88 MCG TABLET GT SCH (05:01)
[2017-04-09] MEDS: PANTOPRAZOLE 40 MG/PACK PACK GT SCH (05:01)
[2017-04-09] MEDS: PROSOURCE / PROSTAT (PYXIS) 30 ML UDC GT SCH ×3 (08:13→16:02)
[2017-04-09] MEDS: LABETALOL HCL (100MG) 100 MG TABLET GT SCH ×2 (08:13→21:03)
[2017-04-09] MEDS: LEVETIRACETAM SOL (5 ML) 100 MG/ML UDC GT SCH ×2 (08:13→21:03)
[2017-04-09] MEDS: COD LIVER OIL/ZINC OXIDE 120 GM TUBE TP SCH ×2 (08:14→21:04)
[2017-04-09] MEDS: HYDROGEN PEROXIDE 480 ML BOTTLE TP SCH ×2 (08:14→21:06)
[2017-04-09] MEDS: ASCORBIC ACID 500 MG TABLET GT SCH ×2 (08:14→21:04)
[2017-04-09] MEDS: LACTOBACILLUS RHAMNOSUS GG 1 EACH CAP.SPRINK GT SCH (08:15)
[2017-04-09] MEDS: OMEGA GT SCH ×3 (08:15→16:02)
[2017-04-09] MEDS: CARBOXYMETHYLCELLULOSE SODIUM 0.4 ML DROPERETTE EACHEYE SCH (08:15)
[2017-04-09] MEDS: Z GUARD REMEDY 4 OZ OINT TP SCH ×2 (08:15→21:06)
[2017-04-09] MEDS: CHOLESTYRAMINE/ASPARTAME 4 G/PKT PACKET GT SCH (12:41)
[2017-04-09] MEDS: MULTIVIT, IRON, MIN NO. 8, FA 1 TAB GT SCH (21:03)
[2017-04-09] MEDS: VALSARTAN 40 MG TABLET GT SCH (22:00)
[2017-04-10] VITALS (8 sets, daily range): BP systolic 93–129; BP diastolic 42–81
[2017-04-10] MEDS: IPRATROPIUM NEB FS 0.5 MG/2.5 ML AMPUL.NEB IH SCH ×4 (01:24→19:29)
[2017-04-10] MEDS: ALBUTEROL FS 2.5 MG/3 ML VIAL.NEB NEB SCH ×4 (01:24→19:29)
[2017-04-10] MEDS: GLYTROL 1,000 ML BAG GT PRN (05:24)
[2017-04-10] MEDS: PANTOPRAZOLE 40 MG/PACK PACK GT SCH (05:24)
[2017-04-10] MEDS: LEVOTHYROXINE SODIUM 88 MCG TABLET GT SCH (05:24)
[2017-04-10] MEDS: LEVETIRACETAM SOL (5 ML) 100 MG/ML UDC GT SCH ×2 (09:00→20:24)
[2017-04-10] MEDS: HYDROGEN PEROXIDE 480 ML BOTTLE TP SCH ×2 (09:00→20:25)
[2017-04-10] MEDS: LABETALOL HCL (100MG) 100 MG TABLET GT SCH ×2 (09:00→20:25)
[2017-04-10] MEDS: PROSOURCE / PROSTAT (PYXIS) 30 ML UDC GT SCH ×3 (09:00→17:50)
[2017-04-10] MEDS: Z GUARD REMEDY 4 OZ OINT TP SCH ×2 (09:00→20:25)
[2017-04-10] MEDS: LACTOBACILLUS RHAMNOSUS GG 1 EACH CAP.SPRINK GT SCH (09:00)
[2017-04-10] MEDS: COD LIVER OIL/ZINC OXIDE 120 GM TUBE TP SCH ×2 (09:00→20:25)
[2017-04-10] MEDS: OMEGA GT SCH ×3 (09:00→17:50)
[2017-04-10] MEDS: ASCORBIC ACID 500 MG TABLET GT SCH ×2 (09:00→20:25)
[2017-04-10] MEDS: CARBOXYMETHYLCELLULOSE SODIUM 0.4 ML DROPERETTE EACHEYE SCH (09:00)
[2017-04-10] MEDS: CHOLESTYRAMINE/ASPARTAME 4 G/PKT PACKET GT SCH (11:12)
[2017-04-10] MEDS: MULTIVIT, IRON, MIN NO. 8, FA 1 TAB GT SCH (20:24)
[2017-04-10] MEDS: VALSARTAN 40 MG TABLET GT SCH (22:00)
[2017-04-11] VITALS (8 sets, daily range): BP systolic 101–133; BP diastolic 53–78
[2017-04-11] MEDS: ALBUTEROL FS 2.5 MG/3 ML VIAL.NEB NEB SCH ×4 (01:29→19:27)
[2017-04-11] MEDS: IPRATROPIUM NEB FS 0.5 MG/2.5 ML AMPUL.NEB IH SCH ×4 (01:29→19:27)
[2017-04-11] MEDS: PANTOPRAZOLE 40 MG/PACK PACK GT SCH (05:11)
[2017-04-11] MEDS: LEVOTHYROXINE SODIUM 88 MCG TABLET GT SCH (05:11)
[2017-04-11] MEDS: GLYTROL 1,000 ML BAG GT PRN (06:41)
[2017-04-11] MEDS: CARBOXYMETHYLCELLULOSE SODIUM 0.4 ML DROPERETTE EACHEYE SCH (08:30)
[2017-04-11] MEDS: OMEGA GT SCH ×3 (08:30→16:21)
[2017-04-11] MEDS: LEVETIRACETAM SOL (5 ML) 100 MG/ML UDC GT SCH ×2 (08:30→20:39)
[2017-04-11] MEDS: PROSOURCE / PROSTAT (PYXIS) 30 ML UDC GT SCH ×3 (08:30→16:21)
[2017-04-11] MEDS: LACTOBACILLUS RHAMNOSUS GG 1 EACH CAP.SPRINK GT SCH (08:30)
[2017-04-11] MEDS: HYDROGEN PEROXIDE 480 ML BOTTLE TP SCH ×2 (08:31→20:40)
[2017-04-11] MEDS: Z GUARD REMEDY 4 OZ OINT TP SCH ×2 (08:31→20:40)
[2017-04-11] MEDS: COD LIVER OIL/ZINC OXIDE 120 GM TUBE TP SCH ×2 (08:31→20:40)
[2017-04-11] MEDS: LABETALOL HCL (100MG) 100 MG TABLET GT SCH ×2 (08:31→20:40)
[2017-04-11] MEDS: ASCORBIC ACID 500 MG TABLET GT SCH ×2 (08:31→20:40)
[2017-04-11] MEDS: CHOLESTYRAMINE/ASPARTAME 4 G/PKT PACKET GT SCH (12:13)
[2017-04-11] MEDS: MULTIVIT, IRON, MIN NO. 8, FA 1 TAB GT SCH (20:39)
[2017-04-11] MEDS: VALSARTAN 40 MG TABLET GT SCH (22:00)
[2017-04-12] VITALS (7 sets, daily range): BP systolic 109–128; BP diastolic 58–82
[2017-04-12] MEDS: ALBUTEROL FS 2.5 MG/3 ML VIAL.NEB NEB SCH ×4 (01:57→19:56)
[2017-04-12] MEDS: IPRATROPIUM NEB FS 0.5 MG/2.5 ML AMPUL.NEB IH SCH ×4 (01:57→19:56)
[2017-04-12] MEDS: LEVOTHYROXINE SODIUM 88 MCG TABLET GT SCH (05:10)
[2017-04-12] MEDS: PANTOPRAZOLE 40 MG/PACK PACK GT SCH (05:10)
[2017-04-12] MEDS: GLYTROL 1,000 ML BAG GT PRN (06:30)
[2017-04-12] MEDS: LABETALOL HCL (100MG) 100 MG TABLET GT SCH ×2 (08:53→21:00)
[2017-04-12] MEDS: ASCORBIC ACID 500 MG TABLET GT SCH ×2 (08:53→21:36)
[2017-04-12] MEDS: LEVETIRACETAM SOL (5 ML) 100 MG/ML UDC GT SCH ×2 (08:53→21:35)
[2017-04-12] MEDS: OMEGA GT SCH ×3 (08:53→16:19)
[2017-04-12] MEDS: PROSOURCE / PROSTAT (PYXIS) 30 ML UDC GT SCH ×3 (08:53→16:19)
[2017-04-12] MEDS: LACTOBACILLUS RHAMNOSUS GG 1 EACH CAP.SPRINK GT SCH (08:53)
[2017-04-12] MEDS: COD LIVER OIL/ZINC OXIDE 120 GM TUBE TP SCH ×2 (08:54→21:36)
[2017-04-12] MEDS: Z GUARD REMEDY 4 OZ OINT TP SCH ×2 (08:54→21:36)
[2017-04-12] MEDS: HYDROGEN PEROXIDE 480 ML BOTTLE TP SCH ×2 (08:54→21:36)
[2017-04-12] MEDS: CARBOXYMETHYLCELLULOSE SODIUM 0.4 ML DROPERETTE EACHEYE SCH (09:00)
--- NOTE | 2017-04-12 11:00 | NUR ---
Seen by wound mergers and acquisitions consultant advised to continue treatment with .renewed treatment for re-opened sacral stage 2 wound.continue to monitor.
--- NOTE | 2017-04-12 11:30 | NUR ---
WOUND CARE CONSULT: PT SEEN FOR SACRAL AREA. 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 DEFER TO DR PARK. ALL SKIN PROTECTION MEASURES IN PLACE AND DISCUSSED WITH NURSING STAFF. WILL SEE PRMandie. IN AGREEMENT WITH PLAN OF CARE.
[2017-04-12] MEDS: CHOLESTYRAMINE/ASPARTAME 4 G/PKT PACKET GT SCH (12:12)
[2017-04-12] MEDS: MULTIVIT, IRON, MIN NO. 8, FA 1 TAB GT SCH (21:35)
[2017-04-12] MEDS: VALSARTAN 40 MG TABLET GT SCH (21:36)
[2017-04-13] VITALS (7 sets, daily range): BP systolic 94–128; BP diastolic 56–78
[2017-04-13] MEDS: IPRATROPIUM NEB FS 0.5 MG/2.5 ML AMPUL.NEB IH SCH ×4 (00:56→20:00)
[2017-04-13] MEDS: ALBUTEROL FS 2.5 MG/3 ML VIAL.NEB NEB SCH ×4 (00:56→20:00)
[2017-04-13] MEDS: LEVOTHYROXINE SODIUM 88 MCG TABLET GT SCH (05:17)
[2017-04-13] MEDS: PANTOPRAZOLE 40 MG/PACK PACK GT SCH (05:17)
[2017-04-13] MEDS: LABETALOL HCL (100MG) 100 MG TABLET GT SCH ×2 (08:42→21:07)
[2017-04-13] MEDS: PROSOURCE / PROSTAT (PYXIS) 30 ML UDC GT SCH ×3 (08:42→16:12)
[2017-04-13] MEDS: OMEGA GT SCH ×3 (08:42→16:12)
[2017-04-13] MEDS: CARBOXYMETHYLCELLULOSE SODIUM 0.4 ML DROPERETTE EACHEYE SCH (08:42)
[2017-04-13] MEDS: LEVETIRACETAM SOL (5 ML) 100 MG/ML UDC GT SCH ×2 (08:42→21:06)
[2017-04-13] MEDS: LACTOBACILLUS RHAMNOSUS GG 1 EACH CAP.SPRINK GT SCH (08:42)
[2017-04-13] MEDS: ASCORBIC ACID 500 MG TABLET GT SCH ×2 (08:44→21:07)
[2017-04-13] MEDS: COD LIVER OIL/ZINC OXIDE 120 GM TUBE TP SCH ×2 (08:44→21:07)
[2017-04-13] MEDS: HYDROGEN PEROXIDE 480 ML BOTTLE TP SCH ×2 (08:44→21:07)
[2017-04-13] MEDS: Z GUARD REMEDY 4 OZ OINT TP SCH ×2 (08:44→21:07)
--- NOTE | 2017-04-13 12:00 | NUR ---
Pt's daughter Marielena Miller called. She was upset that the [place] ornament in her mother's room was broken (made of glass). She saw it broken on Monday night. She was also upset that her mother's sacral wound reopened. Explained to her that her mother is incontinent, that even when her mother has just been cleaned and fresh linen placed, her mother would immediately soil it and she would have to be cleaned again. Assured her that staff are not rubbing pt's buttocks roughly with towels. Family provides cleansing wipes for pt. Marielena Miller expressed understanding.
[2017-04-13] MEDS: CHOLESTYRAMINE/ASPARTAME 4 G/PKT PACKET GT SCH (12:42)
[2017-04-13] MEDS: MULTIVIT, IRON, MIN NO. 8, FA 1 TAB GT SCH (21:06)
[2017-04-13] MEDS: VALSARTAN 40 MG TABLET GT SCH (21:39)
[2017-04-14] VITALS (7 sets, daily range): BP systolic 102–147; BP diastolic 49–77
[2017-04-14] MEDS: ALBUTEROL FS 2.5 MG/3 ML VIAL.NEB NEB SCH ×4 (01:27→19:30)
[2017-04-14] MEDS: IPRATROPIUM NEB FS 0.5 MG/2.5 ML AMPUL.NEB IH SCH ×4 (01:27→19:30)
[2017-04-14] MEDS: LEVOTHYROXINE SODIUM 88 MCG TABLET GT SCH (05:31)
[2017-04-14] MEDS: PANTOPRAZOLE 40 MG/PACK PACK GT SCH (05:31)
[2017-04-14] MEDS: CARBOXYMETHYLCELLULOSE SODIUM 0.4 ML DROPERETTE EACHEYE SCH (09:06)
[2017-04-14] MEDS: OMEGA GT SCH ×3 (09:06→17:31)
[2017-04-14] MEDS: LEVETIRACETAM SOL (5 ML) 100 MG/ML UDC GT SCH ×2 (09:06→20:55)
[2017-04-14] MEDS: LACTOBACILLUS RHAMNOSUS GG 1 EACH CAP.SPRINK GT SCH (09:06)
[2017-04-14] MEDS: PROSOURCE / PROSTAT (PYXIS) 30 ML UDC GT SCH ×3 (09:07→17:31)
[2017-04-14] MEDS: LABETALOL HCL (100MG) 100 MG TABLET GT SCH ×2 (09:07→20:55)
[2017-04-14] MEDS: Z GUARD REMEDY 4 OZ OINT TP SCH ×2 (09:08→20:55)
[2017-04-14] MEDS: HYDROGEN PEROXIDE 480 ML BOTTLE TP SCH ×2 (09:08→20:55)
[2017-04-14] MEDS: COD LIVER OIL/ZINC OXIDE 120 GM TUBE TP SCH ×2 (09:08→20:55)
[2017-04-14] MEDS: ASCORBIC ACID 500 MG TABLET GT SCH ×2 (09:08→20:55)
[2017-04-14] MEDS: CHOLESTYRAMINE/ASPARTAME 4 G/PKT PACKET GT SCH (12:00)
[2017-04-14] MEDS: GLYTROL 1,000 ML BAG GT PRN (13:01)
[2017-04-14] MEDS: MULTIVIT, IRON, MIN NO. 8, FA 1 TAB GT SCH (20:55)
[2017-04-14] MEDS: VALSARTAN 40 MG TABLET GT SCH (21:05)
[2017-04-15] VITALS (7 sets, daily range): BP systolic 92–114; BP diastolic 38–58
[2017-04-15] MEDS: ALBUTEROL FS 2.5 MG/3 ML VIAL.NEB NEB SCH ×4 (02:14→19:57)
[2017-04-15] MEDS: IPRATROPIUM NEB FS 0.5 MG/2.5 ML AMPUL.NEB IH SCH ×4 (02:14→19:57)
[2017-04-15] MEDS: LEVOTHYROXINE SODIUM 88 MCG TABLET GT SCH (05:27)
[2017-04-15] MEDS: PANTOPRAZOLE 40 MG/PACK PACK GT SCH (05:27)
[2017-04-15] MEDS: LABETALOL HCL (100MG) 100 MG TABLET GT SCH ×2 (09:00→21:00)
[2017-04-15] MEDS: CARBOXYMETHYLCELLULOSE SODIUM 0.4 ML DROPERETTE EACHEYE SCH (09:29)
[2017-04-15] MEDS: OMEGA GT SCH ×3 (09:29→17:23)
[2017-04-15] MEDS: LEVETIRACETAM SOL (5 ML) 100 MG/ML UDC GT SCH ×2 (09:29→21:07)
[2017-04-15] MEDS: LACTOBACILLUS RHAMNOSUS GG 1 EACH CAP.SPRINK GT SCH (09:29)
[2017-04-15] MEDS: PROSOURCE / PROSTAT (PYXIS) 30 ML UDC GT SCH ×3 (09:30→17:23)
[2017-04-15] MEDS: ASCORBIC ACID 500 MG TABLET GT SCH ×2 (09:31→21:07)
[2017-04-15] MEDS: COD LIVER OIL/ZINC OXIDE 120 GM TUBE TP SCH ×2 (09:31→21:08)
[2017-04-15] MEDS: HYDROGEN PEROXIDE 480 ML BOTTLE TP SCH ×2 (09:32→21:08)
[2017-04-15] MEDS: Z GUARD REMEDY 4 OZ OINT TP SCH ×2 (09:32→21:08)
[2017-04-15] MEDS: hydrALAZINE HCL 10 MG TABLET GT PRN ×3 (09:34→17:30)
[2017-04-15] MEDS: CHOLESTYRAMINE/ASPARTAME 4 G/PKT PACKET GT SCH (11:51)
[2017-04-15] MEDS: GLYTROL 1,000 ML BAG GT PRN (11:52)
[2017-04-15] MEDS: MULTIVIT, IRON, MIN NO. 8, FA 1 TAB GT SCH (21:07)
[2017-04-15] MEDS: VALSARTAN 40 MG TABLET GT SCH (22:00)
[2017-04-16] VITALS (7 sets, daily range): BP systolic 98–120; BP diastolic 51–64
[2017-04-16] MEDS: ALBUTEROL FS 2.5 MG/3 ML VIAL.NEB NEB SCH ×4 (01:41→20:10)
[2017-04-16] MEDS: IPRATROPIUM NEB FS 0.5 MG/2.5 ML AMPUL.NEB IH SCH ×4 (01:41→20:10)
[2017-04-16] MEDS: PANTOPRAZOLE 40 MG/PACK PACK GT SCH (05:20)
[2017-04-16] MEDS: GLYTROL 1,000 ML BAG GT PRN (05:21)
[2017-04-16] MEDS: LEVOTHYROXINE SODIUM 88 MCG TABLET GT SCH (05:21)
[2017-04-16] MEDS: LACTOBACILLUS RHAMNOSUS GG 1 EACH CAP.SPRINK GT SCH (09:38)
[2017-04-16] MEDS: CARBOXYMETHYLCELLULOSE SODIUM 0.4 ML DROPERETTE EACHEYE SCH (09:38)
[2017-04-16] MEDS: OMEGA GT SCH ×3 (09:38→17:51)
[2017-04-16] MEDS: PROSOURCE / PROSTAT (PYXIS) 30 ML UDC GT SCH ×3 (09:39→17:51)
[2017-04-16] MEDS: LEVETIRACETAM SOL (5 ML) 100 MG/ML UDC GT SCH ×2 (09:39→21:21)
[2017-04-16] MEDS: COD LIVER OIL/ZINC OXIDE 120 GM TUBE TP SCH ×2 (09:39→21:00)
[2017-04-16] MEDS: LABETALOL HCL (100MG) 100 MG TABLET GT SCH ×2 (09:39→21:21)
[2017-04-16] MEDS: ASCORBIC ACID 500 MG TABLET GT SCH ×2 (09:39→20:52)
[2017-04-16] MEDS: Z GUARD REMEDY 4 OZ OINT TP SCH ×2 (09:40→21:00)
[2017-04-16] MEDS: HYDROGEN PEROXIDE 480 ML BOTTLE TP SCH ×2 (09:40→21:00)
[2017-04-16] MEDS: CHOLESTYRAMINE/ASPARTAME 4 G/PKT PACKET GT SCH (12:00)
[2017-04-16] MEDS: MULTIVIT, IRON, MIN NO. 8, FA 1 TAB GT SCH (21:21)
[2017-04-16] MEDS: VALSARTAN 40 MG TABLET GT SCH (22:00)
[2017-04-17] VITALS (8 sets, daily range): BP systolic 94–135; BP diastolic 40–78
[2017-04-17] MEDS: IPRATROPIUM NEB FS 0.5 MG/2.5 ML AMPUL.NEB IH SCH ×4 (01:27→20:21)
[2017-04-17] MEDS: ALBUTEROL FS 2.5 MG/3 ML VIAL.NEB NEB SCH ×4 (01:27→20:21)
[2017-04-17] MEDS: PANTOPRAZOLE 40 MG/PACK PACK GT SCH (05:13)
[2017-04-17] MEDS: LEVOTHYROXINE SODIUM 88 MCG TABLET GT SCH (05:13)
[2017-04-17] MEDS: LACTOBACILLUS RHAMNOSUS GG 1 EACH CAP.SPRINK GT SCH (09:09)
[2017-04-17] MEDS: PROSOURCE / PROSTAT (PYXIS) 30 ML UDC GT SCH ×3 (09:09→17:57)
[2017-04-17] MEDS: CARBOXYMETHYLCELLULOSE SODIUM 0.4 ML DROPERETTE EACHEYE SCH (09:09)
[2017-04-17] MEDS: OMEGA GT SCH ×3 (09:09→17:57)
[2017-04-17] MEDS: LEVETIRACETAM SOL (5 ML) 100 MG/ML UDC GT SCH ×2 (09:09→20:28)
[2017-04-17] MEDS: LABETALOL HCL (100MG) 100 MG TABLET GT SCH ×2 (09:10→20:29)
[2017-04-17] MEDS: COD LIVER OIL/ZINC OXIDE 120 GM TUBE TP SCH ×2 (09:11→20:29)
[2017-04-17] MEDS: ASCORBIC ACID 500 MG TABLET GT SCH ×2 (09:11→20:29)
[2017-04-17] MEDS: hydrALAZINE HCL 10 MG TABLET GT PRN ×3 (09:12→17:57)
[2017-04-17] MEDS: HYDROGEN PEROXIDE 480 ML BOTTLE TP SCH ×2 (09:12→20:29)
[2017-04-17] MEDS: Z GUARD REMEDY 4 OZ OINT TP SCH ×2 (09:12→20:29)
--- NOTE | 2017-04-17 11:05 | NUR ---
made rounds and seen the pt and no new orders noted.
[2017-04-17] MEDS: CHOLESTYRAMINE/ASPARTAME 4 G/PKT PACKET GT SCH (12:06)
[2017-04-17] MEDS: GLYTROL 1,000 ML BAG GT PRN (12:07)
[2017-04-17] MEDS: MULTIVIT, IRON, MIN NO. 8, FA 1 TAB GT SCH (20:28)
[2017-04-17] MEDS: VALSARTAN 40 MG TABLET GT SCH (22:00)
[2017-04-18] MEDS: IPRATROPIUM NEB FS 0.5 MG/2.5 ML AMPUL.NEB IH SCH ×2 (01:04→07:36)
[2017-04-18] MEDS: ALBUTEROL FS 2.5 MG/3 ML VIAL.NEB NEB SCH ×2 (01:04→07:36)
[2017-04-18 05:15] VITALS: BP 110/64
[2017-04-18] MEDS: LEVOTHYROXINE SODIUM 88 MCG TABLET GT SCH (05:17)
[2017-04-18] MEDS: PANTOPRAZOLE 40 MG/PACK PACK GT SCH (05:17)
[2017-04-18 07:51] VITALS: BP 98/60
[2017-04-18] MEDS: CARBOXYMETHYLCELLULOSE SODIUM 0.4 ML DROPERETTE EACHEYE SCH (08:50)
[2017-04-18 08:51] VITALS: BP 98/60
[2017-04-18] MEDS: PROSOURCE / PROSTAT (PYXIS) 30 ML UDC GT SCH (08:51)
[2017-04-18] MEDS: LACTOBACILLUS RHAMNOSUS GG 1 EACH CAP.SPRINK GT SCH (08:51)
[2017-04-18] MEDS: LABETALOL HCL (100MG) 100 MG TABLET GT SCH (08:51)
[2017-04-18] MEDS: LEVETIRACETAM SOL (5 ML) 100 MG/ML UDC GT SCH (08:51)
[2017-04-18] MEDS: COD LIVER OIL/ZINC OXIDE 120 GM TUBE TP SCH (08:51)
[2017-04-18] MEDS: ASCORBIC ACID 500 MG TABLET GT SCH (08:51)
[2017-04-18] MEDS: Z GUARD REMEDY 4 OZ OINT TP SCH (08:52)
[2017-04-18] MEDS: HYDROGEN PEROXIDE 480 ML BOTTLE TP SCH (08:52)
[2017-04-18] MEDS: OMEGA GT SCH (08:52)
[2017-04-18] MEDS: GLYTROL 1,000 ML BAG GT PRN (11:08)
== END 2017-04-16 23:59 | disposition still patient (30) | DRG 189 ==
LOC: UNDOADMIN → SA
PROVIDERS: ADMIT Internal Medicine; ATTEND Internal Medicine Pulmonary Disease
DX: J96.10 Chronic respiratory failure, unspecified whether with hypoxia or hypercapnia (principal); E11.9 Type 2 diabetes mellitus without complications; G40.909 Epilepsy, unspecified, not intractable, without status epilepticus; I10 Essential (primary) hypertension
CPT/HCPCS: 31720; 36415; 71010-TC; 73130-TC; 74000-TC; 80048-TC; 80150; 80202-TC; 81000-TC; 82962-TC; 84443-TC; 85025-TC; 86580-TC; 87040-TC; 87086-TC; 87186-TC; 94003-TC; 94640-TC; 94762-TC; 94799-TC; 97003-TC; 97110-TC; 97760-TC; A4216; A4217; A4623; A6248; A6402; A7526; J0278; J0692; J1815; J1953; J2185; J3370; J7050; J7060; Q0162; Q0163; Q2036; Z7610

== ENCOUNTER 2017-04-17 | Inpatient (IN) | END 2018-04-16 23:59 | disposition still patient (30) | DRG 981 | DX: J96.11 Chronic respiratory failure with hypoxia (principal); L89.154 Pressure ulcer of sacral region, stage 4; G93.41 Metabolic encephalopathy; R53.2 Functional quadriplegia; N17.0 Acute kidney failure with tubular necrosis; E44.0 Moderate protein-calorie malnutrition; R40.3 Persistent vegetative state; Z99.11 Dependence on respirator [ventilator] status; E11.9 Type 2 diabetes mellitus without complications; G40.909 Epilepsy, unspecified, not intractable, without status epilepticus; I10 Essential (primary) hypertension; E88.09 Other disorders of plasma-protein metabolism, not elsewhere classified; F03.90 Unspecified dementia, unspecified severity, without behavioral disturbance, psychotic disturbance, mood disturbance, and anxiety; Z86.73 Personal history of transient ischemic attack (TIA), and cerebral infarction without residual deficits; Z93.0 Tracheostomy status; L30.9 Dermatitis, unspecified; D69.2 Other nonthrombocytopenic purpura; B35.8 Other dermatophytoses; Z68.25 Body mass index [BMI] 25.0-25.9, adult; R13.10 Dysphagia, unspecified; S70.329A Blister (nonthermal), unspecified thigh, initial encounter; X58.XXXA Exposure to other specified factors, initial encounter; Y93.9 Activity, unspecified; Y92.128 Other place in nursing home as the place of occurrence of the external cause ==

== ENCOUNTER 2017-07-15 12:20 | Inpatient (IN) | payer MEDICARE, OTHER ==
[~2017-07-15] VITALS: Ht 157.5 cm; Wt 83.9 kg
[~2017-07-15 12:20] MED LIST changes: -VALS160T24 PO; +VALS160T29 PO
--- NOTE | 2017-07-15 12:20 | NUR ---
XIANG HESTER FROM SUBACUTE FOR N/V X2 DAYS HYPOTENSIVE SINCE THIS AM. PLACED ON MONITOR. AWAITING MD ORDER
[2017-07-15] MEDS ORDERED: IV NS 0.9% 1,000 ML BAG IV ONE ×2 (12:30→14:00)
[2017-07-15] MEDS ORDERED: VANCOMYCIN 1 GM in IV D5W 250 ML IV ONE ×2 (12:30→14:00)
[2017-07-15] MEDS ORDERED: MEROPENEM 1 G in IV NS 0.9% 100 ML IV ONE (12:30)
[2017-07-15 12:43] LABS: BASOPHILS # (AUTO) 0.5 /CMM (0.0-0.2); BASOPHILS % (AUTO) 1.5 % (0.0-2.0); HEMATOCRIT 37 % (33-45); HEMOGLOBIN 12.2 g/dL (11.5-14.8); LYMPHOCYTES # (AUTO) 0.7 /CMM (0.8-4.8); LYMPHOCYTES % (AUTO) 2.1 % (20.0-44.0); MEAN CORPUSCULAR HGB CONC 34 g/dl (31.0-36.0); MEAN CORPUSCULAR VOLUME 82 fL (82-100); MONOCYTES # (AUTO) 1.6 /CMM (0.1-1.30); NEUTROPHILS # (AUTO) 29.7 /CMM (1.8-8.9); NEUTROPHILS % (AUTO) 91.4 % (43.0-81.0); PLATELET COUNT (AUTO) 310 /CMM (150-450); RDW COEFFICIENT OF VARIATION 14.1 (11.5-15.0); RED BLOOD CELL COUNT(AUTO) 4.48 MIL/uL (4.0-5.2)
[2017-07-15] MEDS ORDERED: NUT.237L28 GT (12:44)
[2017-07-15] MEDS ORDERED: LOPE2CAP GT (12:44)
[2017-07-15] MEDS ORDERED: MULT1TAB22 PO (12:44)
[2017-07-15] MEDS ORDERED: ONDA4TAB10 PO (12:44)
[2017-07-15] MEDS ORDERED: DIPH25CA6 GT (12:44)
[2017-07-15] MEDS ORDERED: AMIN30LI4 GT (12:44)
[2017-07-15] MEDS ORDERED: PANT40SU2 GT (12:44)
[2017-07-15] MEDS ORDERED: CHOL4PAC9 GT (12:44)
[2017-07-15] MEDS ORDERED: MAGN400O6 GT (12:44)
[2017-07-15] MEDS ORDERED: CARB30DR EACHEYE (12:44)
[2017-07-15] MEDS ORDERED: LEVO88TA5 PO (12:44)
[2017-07-15] MEDS ORDERED: NEOM15OI3 TP (12:44)
[2017-07-15] MEDS ORDERED: HYDR-3974 GT (12:44)
[2017-07-15] MEDS ORDERED: HYDR237S13 TP (12:44)
[2017-07-15] MEDS ORDERED: MAG30ORA GT (12:44)
[2017-07-15] MEDS ORDERED: NORM10004 IV (12:44)
[2017-07-15] MEDS ORDERED: LABE100T5 GT (12:44)
[2017-07-15 12:51] LABS: WHITE BLOOD COUNT (AUTO) 32.5 K/uL (4.3-11.0)
[2017-07-15 12:58] LABS: INR 1.02 (0.85-1.15)
--- NOTE | 2017-07-15 12:59 | NUR ---
CALLED NURSE SUP FOR ICU BED
[2017-07-15 13:00] LABS: ALANINE AMINOTRANSFERASE 32 U/L (12-78); ALKALINE PHOSPHATASE 89 U/L (46-116); ASPARTATE AMINOTRANSFERASE 32 U/L (15-37); BILIRUBIN,DIRECT 0.4 mg/dL (0.0-0.2); BILIRUBIN,TOTAL 0.6 mg/dL (0.2-1.0); CALCIUM, SERUM 9.1 mg/dL (8.5-10.1); CARBON DIOXIDE 25 mmol/L (21-32); CHLORIDE 99 mmol/L (98-107); GLUCOSE 159 mg/dL (74-106); POTASSIUM 4.7 mmol/L (3.5-5.1); SODIUM SERUM 134 mmol/L (136-145); UREA NITROGEN, BLOOD 66 mg/dL (7-18)
--- NOTE | 2017-07-15 13:00 | NUR ---
VERBAL ORDER DR LOJA DANIELS FR16 URINARY CATHETER
[2017-07-15 13:03] LABS: TROPONIN I 0.862 ng/mL (0.00-0.056)
--- NOTE | 2017-07-15 13:06 | NUR ---
CALLED FOR A PICC LINE
--- NOTE | 2017-07-15 13:14 | NUR ---
CALLED [facility].
[2017-07-15 13:17] LABS: BAND % (MANUAL) 20 % (0.0-5.0); LYMPHOCYTES % (MANUAL) 3 % (16-48); METAMYELOCYTES % 2 % (0-0); MONOCYTES % (MANUAL) 7 % (0-11.0); MYELOCYTES % 3 % (0-0); NEUTROPHILS % (MANUAL) 65 (42-76)
--- NOTE | 2017-07-15 13:32 | NUR ---
PER PROJECT DEVELOPMENT MANAGER REJI WELCH "NO ONE IS AVAILABLE AT THIS TIME FOR PICC LINE PLACEMENT. BHUPENDRA GONZALEZ DNP WILL BE ABLE TO PLACE PICC LINE LATER TONIGHT AFTER 1900". DR LOJA WAS NOTIFIED AND OK WITH PLAN.
[2017-07-15 13:47] LABS: APPEARANCE,URINE CLOUDY (CLEAR); COLOR,URINE DARK YELLOW (YELLOW)
[2017-07-15 13:48] LABS: BILIRUBIN,URINE NEGATIVE (NEGATIVE); BLOOD, URINE 2+ Ery/uL (NEGATIVE); KETONES,URINE NEGATIVE (NEGATIVE); LEUKOCYTE ESTERASE ,URINE 2+ (NEGATIVE); NITRITE, URINE NEGATIVE (NEGATIVE); PROTEIN,URINE 1+ mg/dl (NEGATIVE); UGLUCOSE NEGATIVE (NEGATIVE); UROBILINOGEN,URINE 0.2 EU/dL (0.2)
[2017-07-15 13:50] LABS: BACTERIA,URINE Moderate /HPF (None Seen)
[2017-07-15 13:51] LABS: SQUAMOUS EPITHELIAL CELL,UR Few /HPF (None Seen)
[2017-07-15 13:52] LABS: URINE AMORPHOUS URATE Few /HPF (None Seen)
[2017-07-15] MEDS ORDERED: ONDANSETRON HCL/PF 4 MG/2 ML VIAL IVP PRN (14:00)
[2017-07-15] MEDS ORDERED: NOREPINEPHRINE 8 MG in IV D5W 500 ML IV PRN (14:00)
[2017-07-15] MEDS ORDERED: IV NS 0.9% 1,000 ML IV PRN (14:00)
[2017-07-15] MEDS ORDERED: ACETAMINOPHEN 650 MG/20.3 ML UDC GT PRN (14:00)
[2017-07-15] MEDS ORDERED: ACETAMINOPHEN 650 MG/SUPP.RECT RC PRN (14:00)
--- NOTE | 2017-07-15 14:43 | NUR ---
PATIENT'S BLOOD PRESSURE KEEPS DROPPING, LAST READ 86/40. I SPOKE TO PATIENT'S DAUGHTER ACOSTA FLORES ([phone]), SHE IS OK WITH CENTRAL LINE PLACEMENT BY DR LEON. PATIENT WILL REQUIRE ANTIHYPOTENSIVE AGENT(s) ADMINISTRATION.
--- NOTE | 2017-07-15 16:08 | NUR ---
DR LEON SPOKE TO PTS FAMILY DNR DNI NO PRESSORS. ADMIT TO TELE .
--- NOTE | 2017-07-15 16:18 | NUR ---
GAVE REPORT BRY HESTER TELE SEPSIS. DR BORGES ADMITTING
[2017-07-15 16:40] VITALS: BP 95/54
--- NOTE | 2017-07-15 16:40 | NUR ---
BROACH SETTER ADMITTING NOTE RECEIVED PATIENT BY BED. PATIENT IS NON-VERBAL, TRACH, COOL AEROSOL 5L. WAS TRANSFERRED TO ER FROM SUB-ACUTE FOR HYPOTENSION. PATIENT WAS SUPPOSED TO THE ADMITTED ICU PER MD, BUT FAMILY REFUSED INVASIVE/LIFE-SAVING MEASURE, VASOPRESSORS AND ICU ADMISSION, STATING THAT ONLY IV HYDRATION AND IV ANTIBIOTICS ARE DESIRED FOR THE PATIENT TO RECEIVE. FAMILY MEMBER/DPOA SPOKE TO ER PHYSICIAN. PATIENT TRANSFERRED TO TELEMETRY ROOM 307-1. DR BORGES NOTIFIED. NO NEW ORDERS RECEIVED. ACCORDING TO PREFERRED TREATMENT DOCUMENT IN PATIENT'S CHART NO ACUTE HOSPITALIZATION/IV HYDRATION/IV ANTIBIOTICS ARE TO BE ADMINISTERED TO PATIENT. ER DOCTOR SPOKE TO PATIENT'S DPOA SHIRLEY. BONILLA WHO AGREED FOR PATIENT TO BE ADMITTED TO ACUTE CARE AND RECEIVE IV HYDRATION/ANTIBIOTICS. RN CALLED THE DPOA. DISCUSSED WITH DPOA PATIENT'S PLAN OF CARE. PDOA TOLD RN THAT SHE WANT THE PATIENT TO BE RECEIVING IV HYDRATION AND THAT SHE WILL SIGN A NEW POLST ALLOWING IV ANTIBIOTICS ONCE SHE ARRIVES TO [facility] FROM [place]. CHARGE NURSE INFORMED. DR. BORGES INFORMED. WILL CONTINUE TO ASSESS/MONITOR THROUGHOUT THE SHIFT.
[2017-07-15] MEDS ORDERED: PANTOPRAZOLE 40 MG VIAL IV SCH (17:00)
[2017-07-15] MEDS ORDERED: FEE PK DOSING 1 MIN EA MC ONE (17:28)
[2017-07-15] MEDS ORDERED: PIPERACILLIN /TAZOBACTAM 4.5 G in IV D5W 100 ML IV SCH (18:00)
[2017-07-15] MEDS ORDERED: LEVOFLOXACIN 750 MG /D5W 150ML 150 ML IV SCH (18:00)
--- NOTE | 2017-07-15 19:27 | NUR ---
RN NOTES: RECEIVED PT AND IS ASLEEP AT THIS TIME. DAUGHTER AT BEDSIDE. AWAITING FOR DPO AND OTHER SISTERS TO ARRIVE. NEW POLST TO BE SIGNED BY DPOA ENDORSED. AT THIS POINT, NO IV ABX. PT ON 5LPM COOL AEORSOL. PT HAS RF PICC LINE AND IS BEING INFUSED WITH NS AT 125ML/HR. PT ON TELE BOX. PT ON PULSE OX MONITOR. CALL LIGHT WITHIN PT'S REACH. BED KEPT IN LOW, LOCKED POSITION, AND SIDE RAILS X 2UP. WILL CONTINUE TO MONITOR PT. Addendum: 07/15/17 at 2255 by SUSAN SAMS RN PT ALSO HAS DANIELS CATH AND IS ATTACHED TO DRAINAGE BAG WITH YELLOW URINE DRAINING. PT ALSO HAS GTUBE. NO RESIDUAL NOTED. HAS BEEN FLUSHED.
[2017-07-15] MEDS ORDERED: IPRATROPIUM NEB FS 0.5 MG/2.5 ML AMPUL.NEB IH SCH (19:30)
--- NOTE | 2017-07-15 19:44 | NUR ---
RN SPOKE TO CINDY. CINDY STATED SHE IS ON HER WAY. SHE WILL SIGN A NEW POLST TO ALLOW FOR IV ANTIBIOTICS
[2017-07-15 20:00] VITALS: BP 101/38
--- NOTE | 2017-07-15 20:01 | NUR ---
PATIENT CARE SPECIALIST CLOSING NOTE EXTERNAL MONITO READING [facility] [address]. FAMILY AT THE [facility]. DPOA ON THE WAY. PATIENT IS STABLE BP 107/52 MM HG. REPORT GIVEN TO MIR MARTINEZ FOR SANDY.
--- NOTE | 2017-07-15 20:04 | NUR ---
RN NOTES: SPOKE WITH CINDY SHANE. SHE SAID OKAY TO GIVE IV ABX. NO PRESSORS. CHARGE NURSE AWARE.
--- NOTE | 2017-07-15 20:46 | NUR ---
RN NOTES: TYLENOL 650MG WAS GIVEN VIA GTUBE FOR TEMP 102.9; WILL CONTINUE TO MONITOR.
[2017-07-15] MEDS ORDERED: MULTIVIT, IRON, MIN NO. 8, FA 1 TAB PO SCH (21:00)
[2017-07-15] MEDS ORDERED: PIPERACILLIN /TAZOBACTAM 2.25 G in IV D5W 50 ML IV SCH (21:00)
[2017-07-15] MEDS ORDERED: LEVETIRACETAM SOL (5 ML) 100 MG/ML UDC GT SCH (21:00)
--- NOTE | 2017-07-15 21:05 | NUR ---
RN NOTES: ACOSTA TALAVERAOA PRESENT. FILLING OUT POLST. PER HER, OKAY TO GIVE OTHER MEDS SUCH KEPPRA AND THERAGRAM.
--- NOTE | 2017-07-15 21:46 | NUR ---
RN NOTES: PAGED EPIC. FAMILY MEMBERS /DPOA WANTS TO SPEAK TO [facility] JELLY ROLLER WHILE THEY ARE STILL HERE.
--- NOTE | 2017-07-15 22:27 | NUR ---
RN NOTES: DR. GONZALEZ ON FLOOR. SPEAKING TO [facility] REQUESTED.
[2017-07-16] VITALS: BP_SYST 70; BP_DIAS 40; BP_DIAS 44
[2017-07-16] MEDS ORDERED: ATROPINE SULFATE OPHTH SOLN 15 ML BOTTLE SL PRN
[2017-07-16] MEDS ORDERED: MORPHINE SULFATE INJ 4 MG/ML DISP.SYRIN ONE (00:34)
[2017-07-16] MEDS ORDERED: SCOPOLAMINE HBR 1 EA PATCH.TD72 TD ONE (00:36)
[2017-07-16] MEDS ORDERED: ATROPINE SULFATE OPHTH SOLN 15 ML BOTTLE ONE (00:38)
[2017-07-16] MEDS: LORAZEPAM INJ 2 MG/ML VIAL IV PRN ×5 (00:39→09:24)
[2017-07-16] MEDS ORDERED: MORPHINE SULFATE INJ 10 MG/ML DISP.SYRIN ONE (00:45)
[2017-07-16] MEDS ORDERED: KEY,NONCONTROL,TO KEEP IN PYXI 1 EA MC ONE (01:04)
[2017-07-16] MEDS: SCOPOLAMINE HBR 1 EA PATCH.TD72 TD SCH (01:23)
--- NOTE | 2017-07-16 01:23 | NUR ---
RN NOTES: SCOPOLAMINE PATCH PLACED BEHIND RIGHT EAR.
--- NOTE | 2017-07-16 01:25 | NUR ---
RN NOTES: MORPHINE DRIP INITIATED. HAD TO MANUALLY ADMINISTER. COULD NOT SCAN. WAS OBTAINED FROM ER AND MIXED IN ICU. ONLY 50ML BAG AVAILABLE. CHARGE NURSE AWARE.
--- NOTE | 2017-07-16 03:05 | NUR ---
RN NOTES: MORPHINE INCREASED TO MORPHINE 4MG/HR RR WAS 24.
--- NOTE | 2017-07-16 03:25 | NUR ---
RN NOTES: MORPHINE INCREASED TO 6MG. RR WAS 22.
[2017-07-16] MEDS ORDERED: PANTOPRAZOLE 40 MG/PACK PACK GT SCH (06:00)
[2017-07-16] MEDS ORDERED: LEVOTHYROXINE SODIUM 88 MCG TABLET PO SCH (06:00)
--- NOTE | 2017-07-16 06:48 | NUR ---
MS RN CLOSING NOTES: ALL NEEDS WERE ATTENDED AND ANTICIPATED FOR. PT ON 1LPM VIA T PIECE. PT'S EYES CLOSED. PT NONVERBAL. PT ON HAS DANIELS CATH AND IS ATTACHED TO DRAINAGE BAG. OUTPUT WAS 300ML. PT HAS IV ON L AC #20G AND IS PATENT AND INTACT. CURRENTLY S/L. PT ALSO HAS R FEMORAL PICC LINE WITH MORPHINE DRIP AT 6MG. COMFORT MEASURES ONLY. WILL ENDORSE TO AM NURSE FOR SANDY.
--- NOTE | 2017-07-16 07:35 | NUR ---
MS RN OPENING NOTES. RECEIVED PATIENT IN BED, PATIENT NONVERBAL,OBTUNDED. PATIENT ON COMFORT MEASURES AT THIS TIME, RESPIRATIONS EVEN AND UNLABORED , NO RESPIRATORY DISTRESS NOTED AT THIS TIME. CURRENTLY ON MORPHINE DRIP 6MG/HR TO KEEP RESPIRATIONS AT 16,EFFECTIVE, RUNNING PROPERLY. NO FACIAL GRIMACING PRESENT, NO GUARDED MOVEMENT NOTED IV TO LEFT AC AND RIGHT FEMORAL INTACT, NO REDNESS NO INFILTRATION TO SITES. F/C INTACT AND DRAINING, REMAINS COMFORTABLE AT THIS TIME, WILL CONTINUE TO MONITOR.
[2017-07-16 08:00] VITALS: BP 56/38
[2017-07-16] MEDS ORDERED: ASCORBIC ACID 500 MG TABLET GT SCH (09:00)
--- NOTE | 2017-07-16 09:20 | NUR ---
RN NOTES MORPHINE DRIP BAG CHANGED WITH 2 RN WITNESS, WASTE AMOUNT FROM PREVIOUS BAG IS 18ML, RESPIRATORY RATE NOTED AT 12 BPM WITH NO RESPIRATORY DISTRESS NOTED,IN NO APPARENT PAIN OR DISCOMFORT WILL CONTINUE TO MONITOR
--- NOTE | 2017-07-16 10:50 | NUR ---
RN NOTES PATIENT NOTED CLEAN DRY AND COMFORTABLE, CALL LIGHT WITHIN EASY REACH, RESPIRATORY RATE NOTED AT 8-10 BPM WITH NO DISTRESS NOTED, IN NO APPARENT PAIN OR DISCOMFORT AT THIS TIME WILL CONTINUE TO MONITOR
--- NOTE | 2017-07-16 10:56 | NUR ---
RN NOTES CALLED CINDY FLORES PROVIDED UPDATE ON PATIENT'S STATUS, ACOSTA IS AGREEABLE TO PLAN OF CARE, WILL CONTINUE TO MONITOR
[2017-07-16] MEDS ORDERED: CHOLESTYRAMINE/ASPARTAME 4 G/PKT PACKET GT SCH (12:00)
--- NOTE | 2017-07-16 12:30 | NUR ---
RN NOTES PATIENT APPEARS COMFORTABLE AT THIS TIME, RESPIRATORY RATE NOTED AT 4-6BPM, IN NO APPARENT PAIN, DISCOMFORT OR DISTRESS AT THIS TIME WILL CONTINUE TO MONITOR
[2017-07-16 16:00] VITALS: BP 64/37
--- NOTE | 2017-07-16 17:26 | NUR ---
MIR NOTES CINDY FLORES CALLED RN TO NOTIFY OF ALTERNATE PHONE NUMBER CINDY HAS A WORK NUMBER NUMBER PLACED IN CHART Addendum: 07/16/17 at 1732 by JIM MA RN RN NOTES PLEASE USE [employer]ION [id number] AND ONLY IF UNABLE TO CONTACT AT HOME NUMBER
[2017-07-16 18:30] VITALS: BP 64/37
--- NOTE | 2017-07-16 19:02 | NUR ---
MS RN CLOSING NOTES. RECEIVED PATIENT IN BED, PATIENT NONVERBAL,OBTUNDED. PATIENT ON COMFORT MEASURES AT THIS TIME, RESPIRATIONS EVEN AND UNLABORED , NO RESPIRATORY DISTRESS NOTED AT THIS TIME. CURRENTLY ON MORPHINE DRIP 6MG/HR TO KEEP RESPIRATIONS AT 16,EFFECTIVE, RESPIRATORY RATE NOTED 4-6 BPM AT THIS TIME, DRIP RUNNING PROPERLY. NO FACIAL GRIMACING PRESENT, NO GUARDED MOVEMENT NOTED IV TO LEFT AC AND RIGHT FEMORAL INTACT, NO REDNESS NO INFILTRATION TO SITES. F/C INTACT AND DRAINING, REMAINS COMFORTABLE AT THIS TIME, WILL CONTINUE TO MONITOR AND ENDORSE TO NEXT SHIFT FOR CONTINUITY OF CARE
[2017-07-17] VITALS: BP 86/54
--- NOTE | 2017-07-17 00:15 | NUR ---
RN NOTES: PATIENT'S DPOA/ DAUGHTER, ACOSTA FLORES, CALLED TO ASK FOR TUBE FEEDINGS TO BE RESTARTED. CALLED HER BACK TO EXPLAIN THAT SHE MIGHT HAVE TO BE PRESENT PERSONALLY TO CHANGE THIS IN THE POLST FORM. DAUGHTER STILL PERSISTED THAT SHE WANTS TUBE FEEDING TO BE RESTARTED, BUT WILL NOT BE ABLE TO COME TOMORROW THE WHOLE DAY DUE TO WORK. INFORMED DR LISA WHITE REQUEST. Addendum: 07/18/17 at 0051 by ENRIQUE MERCADO RN PLEASE DISREGARD, WRONG DATE
[2017-07-17 08:00] VITALS: BP 148/86
--- NOTE | 2017-07-17 09:40 | NUR ---
MS RN OPENING NOTES Patient in bed resting comfortably with no signs of acute distress. Patient is DNR and on comfort measures only. Patient has tracheostomy at 28% FiO2. Morphine drip is at 6 mg/hr, respirations are 16, breathing is non-labored. No signs of acute pain. Jamil cath is draining clear, yellow urine. Patient has left AC peripheral IV and femoral central line.
[2017-07-17] MEDS ORDERED: VANCOMYCIN 1 GM in IV D5W 250 ML IV SCH (13:00)
--- NOTE | 2017-07-17 15:00 | NUR ---
MS RN NOTES Patient found resting comfortably with no signs of acute distress. Patient still on comfort care. Breathing is non-labored and breath sounds clear but slowing at 5 breaths per minute. Patient was given full bed-bath, full linen change, and Z-guard and Mepilex placed on sacrum. Patient turned and repositioned. Family is at bedside.
[2017-07-17 16:00] VITALS: BP 88/50
--- NOTE | 2017-07-17 18:27 | NUR ---
MS RN CLOSING NOTES Patient continues on comfort care (only) with morphine drip at 6 mg/hr transfusing through right femoral central cath. Patient's breathing remains non-labored but has progressively slowed to about 6 breaths per minute. Vitals signs taken as needed. Upon observation, patient is resting comfortably. Peripheral IV in left AC 20 g is patent. G-tube clamped, patient NPO. Bed in low/locked position, call song within reach, family at bedside. sql server architect RN will take over care.
--- NOTE | 2017-07-17 19:30 | NUR ---
MS RN OPENING NOTES: PATIENT IN BED, NON VERBAL BUT ABLE TO OPEN EYES AT TIMES WITH TOUCH, ON COOL AEROSOL, BREATHING EVEN AND UNLABORED AT RATE OF 9/MIN, APPEARS TO BE CALM AND IN NO DISTRESS. PERIPHERAL PULSES PALPATED TO BE STRONG AT RADIAL AND BRACHIAL SITES, WEAK OVER PEDAL AREA. CAP REFILL LESS THAN 3 SEC. PATIENT HAS A R FEMORAL CATHETER CONNECTED TO MORPHINE DRIP 250 MG/250 ML, CURRENTLY TITRATED AT 6 MG/HR. DANIELS CATHETER IN PLACE DRAINING CLOUDY URINE. FAMILY AT BEDSIDE. PROVIDED FOR COMFORT AND SAFETY. BED IN LOWEST AND LOCKED POSITION, SIDERAILS UP X 3, CALL LIGHT WITHIN REACH, WILL CONT WITH COMFORT MEASURES.
[2017-07-17 20:00] VITALS: BP 86/50
--- NOTE | 2017-07-18 00:15 | NUR ---
RN NOTES: PATIENT'S DPOA/ DAUGHTER, ACOSTA FLORES, CALLED TO ASK FOR TUBE FEEDINGS TO BE RESTARTED. CALLED HER BACK TO EXPLAIN THAT SHE MIGHT HAVE TO BE PRESENT PERSONALLY TO CHANGE THIS IN THE POLST FORM. DAUGHTER STILL PERSISTED THAT SHE WANTS TUBE FEEDING TO BE RESTARTED, BUT WILL NOT BE ABLE TO COME TOMORROW THE WHOLE DAY DUE TO WORK. INFORMED DR GONZALEZ RE DPOA REQUEST.
--- NOTE | 2017-07-18 00:45 | NUR ---
RN NOTES: ASKED DR GONZALEZ REGARDING DPOA'S REQUEST TO HAVE TUBE FEEDING RESTARTED. INFORMED DR GONZALEZ WELL OF LATEST VS. HE THEN GAVE ORDER FOR TUBE FEEDING TO BE RESTARTED AT 30 ML/HR. NOTED AND CARRIED OUT.
[2017-07-18] MEDS: GLYTROL 1,000 ML BAG GT PRN (01:52)
--- NOTE | 2017-07-18 02:00 | NUR ---
RN NOTES: PATIENT'S BOWELS SOUNDS HYPOACTIVE. GTUBE PATENCY WAS TESTED BY SLOWLY INJECTING AIR, NOTED AIR SANTANA/ GURGLING SOUND. GLYTROL TUBE FEEDING RESTARTED AT 30 ML/HR, MAINTAINED HOB ELEVATED. WILL CONT TO MONITOR CLOSELY FOR POOR TOLERANCE.
--- NOTE | 2017-07-18 05:00 | NUR ---
RN NOTES: PATIENT NOTED TO NOT BEING ABLE TO TOLERATE FEEDING, NOTED 50 ML RESIDUAL AND BOWEL SOUNDS ARE VERY HYPOACTIVE. PATIENT IS NOT VOMITING, APPEARS TO BE COMFORTABLE STILL. ABDOMEN SOFT. INFORMED DR GONZALEZ.
--- NOTE | 2017-07-18 05:30 | NUR ---
RN NOTES: PT HAS GENERALIZED SEIZURE LASTING APPROX 2 MINS, WHICH STARTED WHEN PATIENT WAS BEING REPOSITIONED. MAINTAINED HOB ELEVATED, SUCTIONED AFTERWARDS. POST-ICTAL VS CHECKED: 86/52, HR: 87, RR: 7, TEMP: 97.7. WILL CONT TO MONITOR.
--- NOTE | 2017-07-18 06:29 | NUR ---
MS RN CLOSING NOTES: PATIENT IN BED, OBTUNDED, NON VERBAL, ON COOL AEROSOL, BREATHING UNLABORED, NOW AT RATE OF 6 PER MINUTE. APPEARS CALM, COMFORTABLE, IN NO DISTRESS. R FEMORAL CATHETER CONNECTED TO MORPHINE DRIP AT 6 MG/HR. DANIELS CATHETER IN PLACE DRAINING CLEAR YELLOW URINE. TUBE FEEDING STILL BEING HELD, BOWEL SOUNDS HYPOACTIVE. MAINTAINED HOB ELEVATED. PROVIDED FOR COMFORT AND SAFETY. BED IN LOWEST AND LOCKED POSITION, SIDERAILS UP X 3, CALL LIGHT WITHIN REACH, WILL ENDORSE TO AM RN FOR SANDY. Addendum: 07/18/17 at 0724 by ENRIQUE MERCADO RN AMENDMENT: MORPHINE DRIP TITRATED TO 7 MG/HR.
--- NOTE | 2017-07-18 07:25 | NUR ---
MS RN OPENING NOTES: PATIENT RECEIVED IN BED AT MODERATE HIGH BACKREST POSITION. OBTUNDED AND NON VERBAL. APPEARS CALM AND COMFORTABLE. PT IS DNR. ON COOL AEROSOL, BREATHING UNLABORED, RR NOTED AT 8 PER MINUTE. RIGHT FEMORAL CATHETER CONNECTED TO MORPHINE DRIP @ 7 MG/HR AT THIS TIME. DANIELS CATHETER IN PLACE DRAINING CLEAR YELLOW URINE TO BEDSIDE URINARY BAG, CURRENT OUTPUT IS 30ML. G-TUBE INTACT WITH FEEDING ON HOLD. BOWEL SOUNDS HYPOACTIVE. HOB ELEVATED. BED IN LOWEST AND LOCKED POSITION, SIDE-RAILS UP X 3, CALL LIGHT WITHIN REACH, WILL CONTINUE TO PROVIDE COMFORT AND SAFETY. WILL CONTINUE TO MONITOR.
[2017-07-18 08:00] VITALS: BP 77/35
[2017-07-18] MEDS ORDERED: KEY,NONCONTROL,TO KEEP IN PYXI 1 EA MC ONE ×2 (10:16→10:41)
[2017-07-18] MEDS ORDERED: ACETAMINOPHEN 650 MG/20.3 ML UDC NG PRN (10:30)
--- NOTE | 2017-07-18 10:59 | NUR ---
RN NOTES PT'S MORPHINE SULFATE DRIP CHANGED THIS MORNING AT 1044AM AND MAINTAINED AT 7MG/HG, FAMILY AT BEDSIDE AND AWARE. WILL CONTINUE TO MONITOR
[2017-07-18 16:00] VITALS: BP 98/48
--- NOTE | 2017-07-18 18:51 | NUR ---
MS RN CLOSING NOTES PATIENT IN BED LYING AT MODERATE HIGH BACKREST POSITION WITH DAUGHTER AT BEDSIDE. CONTINUES ON COMFORT CARE ONLY WITH MORPHINE DRIP TRANSFUSING @ 8MG/HR AT THIS TIME VIA RIGHT FEMORAL CENTRAL CATHETER. PT ON COOL AEROSOL T-PIECE WITH SLOW AND NON-LABORED BREATHING ABOUT 6-8 BPM. G-TUBE INTACT WITH FEEDING ON HOLD. PT WITH DANIELS CATHETER IN PLACE WITH CLEAR YELLOW-URINE DRAINING TO BEDSIDE BAG, DANIELS CARE DONE. TURNED AND REPOSITIONED PT Q 2HRS AND PRN. HOB KEPT ELEVATED. BED IN LOW/LOCKED POSITION WITH SIDE-RAILS UP X3. CALL LIGHT WITHIN REACH. ALL REQUIRED COMFORT MEASURES DONE AND MAINTAINED. WILL ENDORSED TO SALVAGE MEND WORKER NURSE TO CONTINUE COMFORT CARE.
--- NOTE | 2017-07-18 19:35 | NUR ---
RN OPENING NOTES PT IS NONVERBAL AND IS ON COMFORT CARE. FAMILY AT BEDSIDE. PT OPENS EYES AND REACTS TO STIMULI BY MOVING LEFT TOES. PT IS CURRENTLY ON 5LPM VIA T-PIECE TO COOL AEROSOL. PT RESPIRATORY RATE HAS BEEN BETWEEN 6-8. PT HAS A DANIELS CATHETER WITH 200 ML OUTPUT. PT GTUBE FEEDING HAS BEEN HELD. PT HAS RIGHT FEMORAL CATH RUNNING MORPHINE DRIP @8MG/HR. SAFETY PRECAUTIONS IN PLACE. WILL CONTINUE TO MONITOR.
[2017-07-18 20:00] VITALS: BP 96/52
[2017-07-18] MEDS: LORAZEPAM INJ 2 MG/ML VIAL IV PRN (21:29)
[2017-07-18] MEDS: SCOPOLAMINE HBR 1 EA PATCH.TD72 TD SCH (23:33)
--- NOTE | 2017-07-19 06:28 | NUR ---
RN NOTES PT RESPIRATIONS REMAIN BETWEEN 6-8. INCREASED MORPHINE DRIP FROM 8MG TO 10MG. WILL ENDORSE TO DAY SHIFT.
--- NOTE | 2017-07-19 07:05 | NUR ---
RN CLOSING NOTES PT IS NONVERBAL AND IS ON COMFORT CARE. PT OPENS EYES AND REACTS TO STIMULI BY MOVING LEFT TOES. PT IS CURRENTLY ON 4LPM VIA T-PIECE TO COOL AEROSOL. PT RESPIRATORY RATE HAS BEEN BETWEEN 6-8. PT HAS A DANIELS CATHETER WITH 425 ML OUTPUT. PT GTUBE FEEDING HAS BEEN HELD. PT HAS RIGHT FEMORAL CATH RUNNING MORPHINE DRIP @10MG/HR. SAFETY PRECAUTIONS IN PLACE. WILL ENDORSE TO DAY SHIFT FOR CONTINUITY OF CARE.
--- NOTE | 2017-07-19 07:45 | NUR ---
RN OPENING NOTES RECEIVED PATIENT IN BED, OBTUNDED, AND IS ON COMFORT CARE. PATIENT IS CURRENTLY ON 4LPM VIA T-PIECE TO COOL AEROSOL, RESPIRATORY RATE HAS BEEN BETWEEN 6-8. PATIENT HAS A DANIELS CATHETER DRAINING CLEAR YELLOW URINE. NOTED PATIENT'S GTUBE FEEDING HAS BEEN HELD. PATIENT HAS RIGHT FEMORAL CATH RUNNING MORPHINE DRIP @10MG/HR. SAFETY PRECAUTIONS IN PLACE. BED IN LOCKED/LOW POSITION, SIDERAILS UP, CALL LIGHT IN REACH. WILL CONTINUE TO MONITOR ACCORDINGLY.
[2017-07-19 08:00] VITALS: BP 92/45
[2017-07-19] MEDS ORDERED: KEY,NONCONTROL,TO KEEP IN PYXI 1 EA MC ONE (11:03)
--- NOTE | 2017-07-19 11:09 | NUR ---
RN NOTES MORPHINE DRIP DUE, CHANGED BAG, WASTED 66ML, WITNESS BY MIR FERNANDEZ.
--- NOTE | 2017-07-19 12:00 | NUR ---
RN NOTES MARY MORAN ON BEDSIDE TALKING TO FAMILY. ALSO ORDERS TO D/C MORPHINE DRIP AND START GTUBE FEEDING. NEW ORDERS NOTED AND CARRIED OUT.
[2017-07-19] MEDS ORDERED: LORAZEPAM INJ 2 MG/ML VIAL IV PRN (12:30)
[2017-07-19] MEDS ORDERED: MORPHINE SULFATE INJ 4 MG/ML DISP.SYRIN IV PRN (12:30)
--- NOTE | 2017-07-19 12:40 | NUR ---
RN NOTES DISCONTINUED MORPHINE DRIP ORDERED, WASTED 240MLS, WITNESS BY MIR LIU. CHARTED ON EDUCATIONAL GUIDANCE COUNSELOR NOTEBOOK.
[2017-07-19] MEDS ORDERED: METOCLOPRAMIDE HCL 10 MG/2 ML VIAL IV SCH (13:00)
[2017-07-19] MEDS ORDERED: MORPHINE SULFATE SOLN CONCENTRATED 20 MG/ML PO PRN (13:30)
--- NOTE | 2017-07-19 13:59 | NUR ---
RN NOTES FAMILY REPORTED THAT PATIENT HAD SEIZURE LASTING ABOUT A MINUTE, WHICH STARTED WHEN PATIENT WAS BEING REPOSITIONED BY FAMILY. MAINTAINED HOB ELEVATED, POST-ICTAL VS CHECKED: 126/78, HR: 99, RR: 10, TEMP: 98.4. ATIVAN 1MG GIVEN ORDERED. WILL CONTINUE TO MONITOR ACCORDINGLY.
[2017-07-19] MEDS: GLYTROL 1,000 ML BAG GT PRN (15:17)
[2017-07-19] MEDS ORDERED: LORA2VIA11 IV (15:49)
[2017-07-19] MEDS ORDERED: MORP100S3 PO (15:50)
[2017-07-19] MEDS ORDERED: SCOP1PAT11 TD (15:50)
[2017-07-19] MEDS ORDERED: METO5VIA6 IV (15:50)
[2017-07-19] MEDS ORDERED: Morphine Sulfate Inj IV (15:50)
[2017-07-19 16:00] VITALS: BP 90/49
--- NOTE | 2017-07-19 19:00 | NUR ---
RN CLOSING NOTES PATIENT IN BED RESTING. NO ACUTE DISTRESS, NO SOB NOTED. NO S/S OF PAIN OR DISCOMFORT. ALL NEEDS ATTENDED AND PROVIDED. BED IN LOW/LOCKED POSITION, CALL LIGHT IN REACH. ENDORSED TO NIGHT RN FOR SANDY. PATIENT IS FOR DISCHARGE, CALLED MIR RAND AT [facility] FOR REPORT.
== END 2017-07-19 19:25 | DRG 871 ==
LOC: ER 12:21 → TELE 16:20 → MED 07-16 02:20
PROVIDERS: ADMIT Internal Medicine; ATTEND Internal Medicine
PROC: 02HV33Z Insertion of Infusion Device into Superior Vena Cava, Percutaneous Approach (ICD-10-PCS; principal; 2017-07-15)
DX: A41.9 Sepsis, unspecified organism (principal); R65.21 Severe sepsis with septic shock; G93.1 Anoxic brain damage, not elsewhere classified; G93.40 Encephalopathy, unspecified; J96.10 Chronic respiratory failure, unspecified whether with hypoxia or hypercapnia; N39.0 Urinary tract infection, site not specified; E87.1 Hypo-osmolality and hyponatremia; N17.9 Acute kidney failure, unspecified; Z51.5 Encounter for palliative care; Z66 Do not resuscitate; Z88.8 Allergy status to other drugs, medicaments and biological substances; Z88.6 Allergy status to analgesic agent; Z91.013 Allergy to seafood; Z79.4 Long term (current) use of insulin; Z79.899 Other long term (current) drug therapy; Z86.73 Personal history of transient ischemic attack (TIA), and cerebral infarction without residual deficits; E11.9 Type 2 diabetes mellitus without complications; Z93.0 Tracheostomy status; G40.909 Epilepsy, unspecified, not intractable, without status epilepticus; I10 Essential (primary) hypertension; F41.9 Anxiety disorder, unspecified
CPT/HCPCS: 36415; 80048-TC; 80076-TC; 81000-TC; 83605-TC; 84484-TC; 85025-TC; 85730-TC; 87040-TC; 87081-TC; 87086-TC; A4216; A4606; A6403; C1751; C9113; J1953; J1956; J2060; J2185; J2270; J2274; J2543; J2765; J3370; J3490; J7030; J7050; J7060; Z7610

== ENCOUNTER 2018-04-17 | Inpatient (IN) | payer MEDICARE, OTHER ==
[~2018-04-17] VITALS: Ht 165.1 cm; Wt 68.5 kg
[~2018-04-17] MED LIST changes: +AMIN30LI4 GT; +CARB30DR EACHEYE; -CARV12.52 GT; +CHOL4PAC9 GT; -CITI500C GT; -CLON1PAT7 TD; -DEXT1DRO3 OP; +DIPH25CA51 GT; -DIPH50CA37 GT; -DIPH60LI2 GT; +HYDR237S13 TP; -INSU100I4 SQ; -LEVO25TA9 GT; +LEVO88TA5 PO; -LORA0.5T GT; +LORA2VIA11 IV; +METO5VIA6 IV; +MORP100S3 PO; -MULT-24 GT; +MULT1TAB22 PO; +Morphine Sulfate Inj IV; +NEOM15OI3 TP; -NUT.100029 GT; +NUT.237L28 GT; -NYST30OI TP; -OMEG10006 GT; +ONDA4TAB10 PO; -ONDA8TAB12 GT; +PANT40SU2 GT; -PANT40TA4 PO; +SCOP1PAT11 TD; -VALS160T29 PO; -VITA-339 GT; -VITA42.5 TP
--- NOTE | 2018-04-18 09:35 | NUR ---
group worker met with the resident's daughter/DPOA Reyna Teresa to complete intake paperwork (patient rights acknowledgement, documentation of preferred intensity of care, conditions of admission, [place] Standard Admission Agreement, An Important Message from Medicare about Your Rights, and voluntary prior express consent form). group worker educated the resident's daughter on advanced healthcare directives/conservatorship. Resident already has an advanced healthcare directive and a copy is placed in the resident's chart. Resident's daughter Reyna Teresa is the primary decision maker. Per resident's daughter, she wishes for the resident to be DNR code status. Admission paperwork was placed in the resident's chart.
[2018-04-18] MEDS: MULTIVIT W/MINERALS 1 TAB TABLET GT SCH (09:56)
[2018-04-18] MEDS: CARBOXYMETHYLCELLULOSE SODIUM 0.4 ML DROPERETTE EACHEYE SCH (09:58)
[2018-04-18] MEDS: CHLORHEXIDINE GLUCONATE 15 ML UDC MM SCH ×2 (09:59→16:28)
[2018-04-18] MEDS: PROSOURCE / PROSTAT (PYXIS) 30 ML UDC GT SCH ×3 (09:59→16:28)
[2018-04-18] MEDS: COD LIVER OIL/ZINC OXIDE 120 GM TUBE TP SCH ×2 (09:59→20:31)
[2018-04-18] MEDS: ZINC SULFATE 220 MG CAPSULE GT SCH (09:59)
[2018-04-18] MEDS: MORPHINE SULFATE SOLN CONCENTRATED 20 MG/ML SL SCH ×2 (09:59→20:30)
[2018-04-18] MEDS: LEVETIRACETAM SOL (5 ML) 100 MG/ML UDC GT SCH ×2 (09:59→20:30)
[2018-04-18] MEDS: ASCORBIC ACID 500 MG TABLET GT SCH (09:59)
[2018-04-18] MEDS ORDERED: ALBUTEROL FS 2.5 MG/3 ML VIAL.NEB NEB PRN (10:00)
[2018-04-18] MEDS ORDERED: HYDROGEN PEROXIDE 480 ML BOTTLE TP PRN (10:00)
[2018-04-18] MEDS ORDERED: ACETAMINOPHEN 650 MG/20 ML UDC- SA PATIENTS-FEVER ONLY GT PRN (10:00)
[2018-04-18] MEDS ORDERED: LORAZEPAM 0.5 MG TABLET GT PRN (10:00)
[2018-04-18] MEDS ORDERED: MORPHINE SULFATE SOLN CONCENTRATED 20 MG/ML SL PRN (10:00)
[2018-04-18] MEDS: DAKINS QUARTER STRENGTH (0.125%) 480 ML BOTTLE TOP SCH ×2 (10:03→20:31)
[2018-04-18] MEDS: ACIDOPHILUS/BULGARICUS 1 EACH TAB.CHEW GT SCH (10:03)
--- NOTE | 2018-04-18 10:08 | NUR ---
Please see resident's previous account [id number] for all assessments and nurses notes. Originally admitted on 03/28/2016; readmission 07/19/2017.
--- NOTE | 2018-04-18 10:51 | NUR ---
Please see resident's previous account [id number] for Social Service assessments, evaluations and notes.
[2018-04-18 11:38] VITALS: BP 130/70
[2018-04-18] MEDS: CHOLESTYRAMINE/ASPARTAME 4 G/PKT PACKET GT SCH (12:00)
[2018-04-18] MEDS: ALBUTEROL FS 2.5 MG/3 ML VIAL.NEB NEB SCH ×2 (13:24→19:52)
[2018-04-18] MEDS: IPRATROPIUM NEB FS 0.5 MG/2.5 ML AMPUL.NEB IH SCH ×2 (13:24→19:52)
[2018-04-18 19:55] VITALS: BP 118/69
[2018-04-18 20:00] VITALS: BP 118/69
[2018-04-18] MEDS: HYDROGEN PEROXIDE 480 ML BOTTLE TP SCH (20:31)
[2018-04-19] MEDS: ALBUTEROL FS 2.5 MG/3 ML VIAL.NEB NEB SCH ×4 (02:00→19:56)
[2018-04-19] MEDS: IPRATROPIUM NEB FS 0.5 MG/2.5 ML AMPUL.NEB IH SCH ×4 (02:00→19:56)
[2018-04-19] MEDS: GLUCERNA 1.2 1,000 ML BOTTLE GT PRN ×2 (02:36→18:37)
[2018-04-19] MEDS: LEVOTHYROXINE SODIUM 88 MCG TABLET GT SCH (05:06)
[2018-04-19] MEDS: OMEPRAZOLE 20 MG CAPSULE.DR GT SCH (05:07)
[2018-04-19 07:34] VITALS: BP 126/72
[2018-04-19] MEDS: CARBOXYMETHYLCELLULOSE SODIUM 0.4 ML DROPERETTE EACHEYE SCH (08:33)
[2018-04-19] MEDS: CHLORHEXIDINE GLUCONATE 15 ML UDC MM SCH ×2 (08:34→16:23)
[2018-04-19] MEDS: COD LIVER OIL/ZINC OXIDE 120 GM TUBE TP SCH ×2 (08:34→21:43)
[2018-04-19] MEDS: MULTIVIT W/MINERALS 1 TAB TABLET GT SCH (08:34)
[2018-04-19] MEDS: HYDROGEN PEROXIDE 480 ML BOTTLE TP SCH ×2 (08:34→21:43)
[2018-04-19] MEDS: MORPHINE SULFATE SOLN CONCENTRATED 20 MG/ML SL SCH ×2 (08:34→21:43)
[2018-04-19] MEDS: ZINC SULFATE 220 MG CAPSULE GT SCH (08:34)
[2018-04-19] MEDS: PROSOURCE / PROSTAT (PYXIS) 30 ML UDC GT SCH ×3 (08:34→16:23)
[2018-04-19] MEDS: ACIDOPHILUS/BULGARICUS 1 EACH TAB.CHEW GT SCH (08:34)
[2018-04-19] MEDS: DAKINS QUARTER STRENGTH (0.125%) 480 ML BOTTLE TOP SCH ×2 (08:34→21:43)
[2018-04-19] MEDS: ASCORBIC ACID 500 MG TABLET GT SCH (08:34)
[2018-04-19] MEDS: LEVETIRACETAM SOL (5 ML) 100 MG/ML UDC GT SCH ×2 (08:34→21:43)
[2018-04-19] MEDS: CHOLESTYRAMINE/ASPARTAME 4 G/PKT PACKET GT SCH (12:00)
[2018-04-19 20:00] VITALS: BP 124/62
--- NOTE | 2018-04-19 20:30 | NUR ---
Seen by TERESA Smith no new order.
[2018-04-20] MEDS: hydrALAZINE HCL 10 MG TABLET GT PRN (00:36)
[2018-04-20] MEDS: ALBUTEROL FS 2.5 MG/3 ML VIAL.NEB NEB SCH ×4 (01:19→19:49)
[2018-04-20] MEDS: IPRATROPIUM NEB FS 0.5 MG/2.5 ML AMPUL.NEB IH SCH ×4 (01:19→19:49)
[2018-04-20] MEDS: LEVOTHYROXINE SODIUM 88 MCG TABLET GT SCH (06:10)
[2018-04-20] MEDS: OMEPRAZOLE 20 MG CAPSULE.DR GT SCH (06:10)
[2018-04-20 07:35] VITALS: BP 143/69
[2018-04-20] MEDS: ZINC SULFATE 220 MG CAPSULE GT SCH (08:27)
[2018-04-20] MEDS: ASCORBIC ACID 500 MG TABLET GT SCH (08:27)
[2018-04-20] MEDS: ACIDOPHILUS/BULGARICUS 1 EACH TAB.CHEW GT SCH (08:27)
[2018-04-20] MEDS: LEVETIRACETAM SOL (5 ML) 100 MG/ML UDC GT SCH ×2 (08:27→20:20)
[2018-04-20] MEDS: PROSOURCE / PROSTAT (PYXIS) 30 ML UDC GT SCH ×3 (08:27→16:42)
[2018-04-20] MEDS: MULTIVIT W/MINERALS 1 TAB TABLET GT SCH (08:27)
[2018-04-20] MEDS: CHLORHEXIDINE GLUCONATE 15 ML UDC MM SCH ×2 (08:27→16:43)
[2018-04-20] MEDS: CARBOXYMETHYLCELLULOSE SODIUM 0.4 ML DROPERETTE EACHEYE SCH (08:27)
[2018-04-20] MEDS: MORPHINE SULFATE SOLN CONCENTRATED 20 MG/ML SL SCH ×2 (08:32→20:20)
[2018-04-20] MEDS: DAKINS QUARTER STRENGTH (0.125%) 480 ML BOTTLE TOP SCH ×2 (08:32→21:13)
[2018-04-20] MEDS: HYDROGEN PEROXIDE 480 ML BOTTLE TP SCH ×2 (08:33→21:13)
[2018-04-20] MEDS: COD LIVER OIL/ZINC OXIDE 120 GM TUBE TP SCH ×2 (08:33→21:13)
[2018-04-20] MEDS: CHOLESTYRAMINE/ASPARTAME 4 G/PKT PACKET GT SCH (12:47)
--- NOTE | 2018-04-20 13:45 | NUR ---
INTERDISCIPLINARY TEAM CONFERENCE (IDT) was held today. Resident's daughter Reyna Teresa attended via telephone conference. Dr. Monet and the interdisciplinary team reviewed the current plan of care in detail. Orders as well as treatment and medications were reviewed. 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 No new orders were given.
[2018-04-20 20:12] VITALS: BP 145/75
--- NOTE | 2018-04-20 21:47 | NUR ---
RT NOTE PATIENT RECEIVED TRACHED ON COOL AEROSOL. TX GIVEN, NO ADVERSE REACTIONS NOTED. SX DONE, TRACH SECURED AND PATENT. PATIENT STABLE. NO DISTRESS NOTED. WATER LEVEL GOOD. WILL MONITOR T/O SHIFT. Addendum: 04/20/18 at 2148 by LETITIA BENITES RT Amended: Links added.
[2018-04-21 00:55] VITALS: BP 126/70
[2018-04-21] MEDS: IPRATROPIUM NEB FS 0.5 MG/2.5 ML AMPUL.NEB IH SCH ×4 (01:37→19:47)
[2018-04-21] MEDS: ALBUTEROL FS 2.5 MG/3 ML VIAL.NEB NEB SCH ×4 (01:37→19:47)
[2018-04-21] MEDS: LEVOTHYROXINE SODIUM 88 MCG TABLET GT SCH (05:29)
[2018-04-21] MEDS: OMEPRAZOLE 20 MG CAPSULE.DR GT SCH (05:29)
[2018-04-21 06:17] VITALS: BP 128/79
[2018-04-21] MEDS: GLUCERNA 1.2 1,000 ML BOTTLE GT PRN (06:20)
[2018-04-21] MEDS: HYDROGEN PEROXIDE 480 ML BOTTLE TP SCH ×2 (08:30→20:55)
[2018-04-21] MEDS: LEVETIRACETAM SOL (5 ML) 100 MG/ML UDC GT SCH ×2 (08:30→20:11)
[2018-04-21] MEDS: ASCORBIC ACID 500 MG TABLET GT SCH (08:30)
[2018-04-21] MEDS: CARBOXYMETHYLCELLULOSE SODIUM 0.4 ML DROPERETTE EACHEYE SCH (08:30)
[2018-04-21] MEDS: MORPHINE SULFATE SOLN CONCENTRATED 20 MG/ML SL SCH ×2 (08:30→20:11)
[2018-04-21] MEDS: ACIDOPHILUS/BULGARICUS 1 EACH TAB.CHEW GT SCH (08:30)
[2018-04-21] MEDS: ZINC SULFATE 220 MG CAPSULE GT SCH (08:30)
[2018-04-21] MEDS: PROSOURCE / PROSTAT (PYXIS) 30 ML UDC GT SCH ×3 (08:30→16:19)
[2018-04-21] MEDS: CHLORHEXIDINE GLUCONATE 15 ML UDC MM SCH ×2 (08:30→16:19)
[2018-04-21] MEDS: MULTIVIT W/MINERALS 1 TAB TABLET GT SCH (08:30)
[2018-04-21] MEDS: DAKINS QUARTER STRENGTH (0.125%) 480 ML BOTTLE TOP SCH ×2 (09:04→20:54)
[2018-04-21] MEDS: COD LIVER OIL/ZINC OXIDE 120 GM TUBE TP SCH ×2 (09:05→20:54)
[2018-04-21 09:35] VITALS: BP 118/58
[2018-04-21] MEDS: CHOLESTYRAMINE/ASPARTAME 4 G/PKT PACKET GT SCH (12:00)
[2018-04-21 12:01] VITALS: BP 112/56
--- NOTE | 2018-04-21 14:00 | NUR ---
IMPROVEMENT MANAGER Notes: Pt's rojas catheter bypassing. Rojas catheter 16x10 changed as ordered. Will continue to monitor.
--- NOTE | 2018-04-21 15:00 | NUR ---
REGIONAL SALES CONSULTANT Notes: Pt's rojas catheter still place, draining yellow urine.
[2018-04-21 18:11] VITALS: BP 108/66
[2018-04-21 20:23] VITALS: BP 145/76
--- NOTE | 2018-04-21 20:41 | NUR ---
PATIENT RCVD TRACH'D ON COOL AEROSOL WITH CHARTED SETTINGS. HHN TX GIVEN AND NO ADVERSE REACTIONS NOTED. SX DONE. PT TRACH SECURED AND PATENT. NO RESP DISTRESS NOTED AT THIS TIME. AMBU BAG AT BEDSIDE. WILL CONTINUE TO MONITOR. Addendum: 04/21/18 at 2041 by ALEXEY MADRID RT Amended: Links added.
[2018-04-22 00:22] VITALS: BP 134/82
[2018-04-22] MEDS: IPRATROPIUM NEB FS 0.5 MG/2.5 ML AMPUL.NEB IH SCH ×4 (01:06→19:39)
[2018-04-22] MEDS: ALBUTEROL FS 2.5 MG/3 ML VIAL.NEB NEB SCH ×4 (01:06→19:39)
[2018-04-22] MEDS: GLUCERNA 1.2 1,000 ML BOTTLE GT PRN (02:23)
[2018-04-22] MEDS: OMEPRAZOLE 20 MG CAPSULE.DR GT SCH (05:35)
[2018-04-22] MEDS: LEVOTHYROXINE SODIUM 88 MCG TABLET GT SCH (05:35)
[2018-04-22 06:26] VITALS: BP 119/70
[2018-04-22 07:46] VITALS: BP 139/79
[2018-04-22] MEDS: LEVETIRACETAM SOL (5 ML) 100 MG/ML UDC GT SCH ×2 (09:00→20:19)
[2018-04-22] MEDS: DAKINS QUARTER STRENGTH (0.125%) 480 ML BOTTLE TOP SCH (09:00)
[2018-04-22] MEDS: HYDROGEN PEROXIDE 480 ML BOTTLE TP SCH ×2 (09:00→20:20)
[2018-04-22] MEDS: MORPHINE SULFATE SOLN CONCENTRATED 20 MG/ML SL SCH ×2 (09:00→20:19)
[2018-04-22] MEDS: CARBOXYMETHYLCELLULOSE SODIUM 0.4 ML DROPERETTE EACHEYE SCH (09:00)
[2018-04-22] MEDS: ZINC SULFATE 220 MG CAPSULE GT SCH (09:00)
[2018-04-22] MEDS: CHLORHEXIDINE GLUCONATE 15 ML UDC MM SCH ×2 (09:00→17:48)
[2018-04-22] MEDS: PROSOURCE / PROSTAT (PYXIS) 30 ML UDC GT SCH ×3 (09:00→17:48)
[2018-04-22] MEDS: COD LIVER OIL/ZINC OXIDE 120 GM TUBE TP SCH ×2 (09:00→20:20)
[2018-04-22] MEDS: ASCORBIC ACID 500 MG TABLET GT SCH (09:00)
[2018-04-22] MEDS: ACIDOPHILUS/BULGARICUS 1 EACH TAB.CHEW GT SCH (09:00)
[2018-04-22] MEDS: MULTIVIT W/MINERALS 1 TAB TABLET GT SCH (09:00)
[2018-04-22 12:05] VITALS: BP 135/68
[2018-04-22] MEDS: CHOLESTYRAMINE/ASPARTAME 4 G/PKT PACKET GT SCH (12:50)
[2018-04-22 18:05] VITALS: BP 124/66
[2018-04-22 20:25] VITALS: BP 139/75
[2018-04-23 01:36] VITALS: BP 118/71
[2018-04-23] MEDS: ALBUTEROL FS 2.5 MG/3 ML VIAL.NEB NEB SCH ×4 (01:49→19:45)
[2018-04-23] MEDS: IPRATROPIUM NEB FS 0.5 MG/2.5 ML AMPUL.NEB IH SCH ×4 (01:49→19:45)
[2018-04-23] MEDS: LEVOTHYROXINE SODIUM 88 MCG TABLET GT SCH (05:44)
[2018-04-23] MEDS: OMEPRAZOLE 20 MG CAPSULE.DR GT SCH (05:44)
[2018-04-23 06:24] VITALS: BP 123/63
[2018-04-23 08:06] VITALS: BP 148/96
[2018-04-23] MEDS: CARBOXYMETHYLCELLULOSE SODIUM 0.4 ML DROPERETTE EACHEYE SCH (08:14)
[2018-04-23] MEDS: ZINC SULFATE 220 MG CAPSULE GT SCH (08:15)
[2018-04-23] MEDS: PROSOURCE / PROSTAT (PYXIS) 30 ML UDC GT SCH ×3 (08:16→16:33)
[2018-04-23] MEDS: ASCORBIC ACID 500 MG TABLET GT SCH (08:16)
[2018-04-23] MEDS: LEVETIRACETAM SOL (5 ML) 100 MG/ML UDC GT SCH ×2 (08:21→20:10)
[2018-04-23] MEDS: MULTIVIT W/MINERALS 1 TAB TABLET GT SCH (08:22)
[2018-04-23] MEDS: ACIDOPHILUS/BULGARICUS 1 EACH TAB.CHEW GT SCH (08:22)
[2018-04-23] MEDS: CHLORHEXIDINE GLUCONATE 15 ML UDC MM SCH ×2 (08:22→16:33)
[2018-04-23] MEDS: MORPHINE SULFATE SOLN CONCENTRATED 20 MG/ML SL SCH ×2 (08:23→20:10)
[2018-04-23] MEDS: HYDROGEN PEROXIDE 480 ML BOTTLE TP SCH ×2 (09:00→20:15)
[2018-04-23] MEDS: COD LIVER OIL/ZINC OXIDE 120 GM TUBE TP SCH ×2 (09:00→20:12)
[2018-04-23 12:00] VITALS: BP 138/75
[2018-04-23] MEDS: CHOLESTYRAMINE/ASPARTAME 4 G/PKT PACKET GT SCH (12:00)
[2018-04-23] MEDS: GLUCERNA 1.2 1,000 ML BOTTLE GT PRN (16:24)
[2018-04-23 19:03] VITALS: BP 127/73
--- NOTE | 2018-04-23 19:07 | NUR ---
Glucerna 1.2 not available according to kitchen and power transformer repairer. Notified Dr Ramirez. Received order to change feeding from Glucerna 1.2 to Glucerna 1.5 and DC Prostat per power transformer repairer's recommendation.
[2018-04-23] MEDS: DAKINS QUARTER STRENGTH (0.125%) 480 ML BOTTLE TOP SCH (20:12)
[2018-04-23 20:22] VITALS: BP 144/77
[2018-04-24 00:40] VITALS: BP 134/83
[2018-04-24] MEDS: IPRATROPIUM NEB FS 0.5 MG/2.5 ML AMPUL.NEB IH SCH ×4 (01:03→20:45)
[2018-04-24] MEDS: ALBUTEROL FS 2.5 MG/3 ML VIAL.NEB NEB SCH ×4 (01:03→20:45)
[2018-04-24] MEDS: OMEPRAZOLE 20 MG CAPSULE.DR GT SCH (05:20)
[2018-04-24] MEDS: LEVOTHYROXINE SODIUM 88 MCG TABLET GT SCH (05:21)
[2018-04-24 06:27] VITALS: BP 137/77
[2018-04-24 08:11] VITALS: BP 157/76
[2018-04-24] MEDS: CARBOXYMETHYLCELLULOSE SODIUM 0.4 ML DROPERETTE EACHEYE SCH (08:52)
[2018-04-24] MEDS: ZINC SULFATE 220 MG CAPSULE GT SCH (08:52)
[2018-04-24] MEDS: ACIDOPHILUS/BULGARICUS 1 EACH TAB.CHEW GT SCH (08:52)
[2018-04-24] MEDS: ASCORBIC ACID 500 MG TABLET GT SCH (08:52)
[2018-04-24] MEDS: CHLORHEXIDINE GLUCONATE 15 ML UDC MM SCH ×2 (08:52→17:32)
[2018-04-24] MEDS: MULTIVIT W/MINERALS 1 TAB TABLET GT SCH (08:52)
[2018-04-24] MEDS: LEVETIRACETAM SOL (5 ML) 100 MG/ML UDC GT SCH ×2 (08:52→20:24)
[2018-04-24] MEDS: MORPHINE SULFATE SOLN CONCENTRATED 20 MG/ML SL SCH ×2 (09:00→20:25)
[2018-04-24] MEDS: DAKINS QUARTER STRENGTH (0.125%) 480 ML BOTTLE TOP SCH ×2 (09:30→20:25)
[2018-04-24] MEDS: COD LIVER OIL/ZINC OXIDE 120 GM TUBE TP SCH ×2 (09:30→20:25)
[2018-04-24] MEDS: HYDROGEN PEROXIDE 480 ML BOTTLE TP SCH ×2 (09:30→20:25)
[2018-04-24 12:00] VITALS: BP 134/79
[2018-04-24] MEDS: CHOLESTYRAMINE/ASPARTAME 4 G/PKT PACKET GT SCH (12:13)
[2018-04-24] MEDS: ONDANSETRON 4 MG TAB.RAPDIS GT PRN (15:05)
[2018-04-24 18:34] VITALS: BP 138/60
[2018-04-24] MEDS: GLUCERNA 1.5 1,000 ML BOTTLE GT PRN (18:35)
--- NOTE | 2018-04-24 18:52 | NUR ---
Seen by Dr Ramirez. Notified him that pt vomited and was given Zofran. No new order.
[2018-04-24 20:12] VITALS: BP_SYST 136; BP_SYST 137; BP_DIAS 68; BP_DIAS 70
[2018-04-25] VITALS: BP 140/75
[2018-04-25] MEDS: ALBUTEROL FS 2.5 MG/3 ML VIAL.NEB NEB SCH ×4 (01:43→19:40)
[2018-04-25] MEDS: IPRATROPIUM NEB FS 0.5 MG/2.5 ML AMPUL.NEB IH SCH ×4 (01:43→19:40)
[2018-04-25 06:00] VITALS: BP 149/72
[2018-04-25] MEDS: OMEPRAZOLE 20 MG CAPSULE.DR GT SCH (06:36)
[2018-04-25] MEDS: LEVOTHYROXINE SODIUM 88 MCG TABLET GT SCH (06:36)
[2018-04-25] MEDS: ASCORBIC ACID 500 MG TABLET GT SCH (08:05)
[2018-04-25] MEDS: LEVETIRACETAM SOL (5 ML) 100 MG/ML UDC GT SCH ×2 (08:05→21:04)
[2018-04-25] MEDS: ACIDOPHILUS/BULGARICUS 1 EACH TAB.CHEW GT SCH (08:05)
[2018-04-25] MEDS: CARBOXYMETHYLCELLULOSE SODIUM 0.4 ML DROPERETTE EACHEYE SCH (08:05)
[2018-04-25] MEDS: ZINC SULFATE 220 MG CAPSULE GT SCH (08:05)
[2018-04-25] MEDS: MULTIVIT W/MINERALS 1 TAB TABLET GT SCH (08:05)
[2018-04-25 08:06] VITALS: BP 152/69
[2018-04-25] MEDS: CHLORHEXIDINE GLUCONATE 15 ML UDC MM SCH ×2 (08:06→16:19)
[2018-04-25] MEDS: COD LIVER OIL/ZINC OXIDE 120 GM TUBE TP SCH ×2 (08:06→21:43)
[2018-04-25] MEDS: HYDROGEN PEROXIDE 480 ML BOTTLE TP SCH ×2 (08:06→21:43)
[2018-04-25] MEDS: DAKINS QUARTER STRENGTH (0.125%) 480 ML BOTTLE TOP SCH ×2 (08:07→21:43)
[2018-04-25] MEDS: MORPHINE SULFATE SOLN CONCENTRATED 20 MG/ML SL SCH ×2 (08:07→21:04)
[2018-04-25] MEDS: CHOLESTYRAMINE/ASPARTAME 4 G/PKT PACKET GT SCH (12:09)
[2018-04-25 14:06] VITALS: BP 148/66
[2018-04-25] MEDS: hydrALAZINE HCL 10 MG TABLET GT PRN ×2 (14:06→18:54)
[2018-04-25 18:50] VITALS: BP 155/73
[2018-04-25 19:49] VITALS: BP 133/72
[2018-04-25] MEDS: ACETAMINOPHEN 650 MG/20 ML UDC- SA PATIENTS-PAIN ONLY GT PRN (21:30)
--- NOTE | 2018-04-25 21:30 | NUR ---
Pt temp 100.1,cooling measures and Tylenol given for discomfort.noted urine output with sediments and tinged of blood minimal amount.Will continue to monitor.
[2018-04-26 00:10] VITALS: BP 129/70
[2018-04-26] MEDS: ALBUTEROL FS 2.5 MG/3 ML VIAL.NEB NEB SCH ×4 (01:53→20:07)
[2018-04-26] MEDS: IPRATROPIUM NEB FS 0.5 MG/2.5 ML AMPUL.NEB IH SCH ×4 (01:53→20:07)
[2018-04-26] MEDS: OMEPRAZOLE 20 MG CAPSULE.DR GT SCH (05:24)
[2018-04-26] MEDS: hydrALAZINE HCL 10 MG TABLET GT PRN ×2 (05:24→23:50)
[2018-04-26] MEDS: LEVOTHYROXINE SODIUM 88 MCG TABLET GT SCH (05:24)
[2018-04-26 06:00] VITALS: BP 149/83
[2018-04-26] MEDS: GLUCERNA 1.5 1,000 ML BOTTLE GT PRN (06:08)
[2018-04-26 08:00] VITALS: BP 129/75
[2018-04-26] MEDS: CARBOXYMETHYLCELLULOSE SODIUM 0.4 ML DROPERETTE EACHEYE SCH (08:38)
[2018-04-26] MEDS: CHLORHEXIDINE GLUCONATE 15 ML UDC MM SCH ×2 (08:38→16:50)
[2018-04-26] MEDS: LEVETIRACETAM SOL (5 ML) 100 MG/ML UDC GT SCH ×2 (08:38→21:50)
[2018-04-26] MEDS: MULTIVIT W/MINERALS 1 TAB TABLET GT SCH (08:38)
[2018-04-26] MEDS: ACIDOPHILUS/BULGARICUS 1 EACH TAB.CHEW GT SCH (08:38)
[2018-04-26] MEDS: ZINC SULFATE 220 MG CAPSULE GT SCH (08:38)
[2018-04-26] MEDS: ASCORBIC ACID 500 MG TABLET GT SCH (08:38)
[2018-04-26] MEDS: MORPHINE SULFATE SOLN CONCENTRATED 20 MG/ML SL SCH ×2 (08:39→21:50)
[2018-04-26] MEDS: HYDROGEN PEROXIDE 480 ML BOTTLE TP SCH ×2 (09:00→21:50)
[2018-04-26] MEDS: DAKINS QUARTER STRENGTH (0.125%) 480 ML BOTTLE TOP SCH ×2 (09:00→21:50)
[2018-04-26] MEDS: COD LIVER OIL/ZINC OXIDE 120 GM TUBE TP SCH ×2 (09:00→21:50)
[2018-04-26 12:00] VITALS: BP 138/79
[2018-04-26] MEDS: CHOLESTYRAMINE/ASPARTAME 4 G/PKT PACKET GT SCH (12:00)
--- NOTE | 2018-04-26 16:00 | NUR ---
Pt's G-tube came out and was replaced. CONSIGNEE Becca Smith ordered KUB to verify placement. She looked at KUB result and said to resume feeding.
[2018-04-26 18:51] VITALS: BP 125/61
[2018-04-26 20:18] VITALS: BP 137/77
[2018-04-27] VITALS (7 sets, daily range): BP systolic 122–150; BP diastolic 67–85
[2018-04-27] MEDS: ALBUTEROL FS 2.5 MG/3 ML VIAL.NEB NEB SCH ×4 (02:00→19:50)
[2018-04-27] MEDS: IPRATROPIUM NEB FS 0.5 MG/2.5 ML AMPUL.NEB IH SCH ×4 (02:00→19:50)
[2018-04-27] MEDS: OMEPRAZOLE 20 MG CAPSULE.DR GT SCH (06:04)
[2018-04-27] MEDS: hydrALAZINE HCL 10 MG TABLET GT PRN (06:04)
[2018-04-27] MEDS: LEVOTHYROXINE SODIUM 88 MCG TABLET GT SCH (06:04)
[2018-04-27] MEDS: ZINC SULFATE 220 MG CAPSULE GT SCH (08:34)
[2018-04-27] MEDS: MULTIVIT W/MINERALS 1 TAB TABLET GT SCH (08:34)
[2018-04-27] MEDS: ACIDOPHILUS/BULGARICUS 1 EACH TAB.CHEW GT SCH (08:34)
[2018-04-27] MEDS: CHLORHEXIDINE GLUCONATE 15 ML UDC MM SCH ×2 (08:34→17:00)
[2018-04-27] MEDS: CARBOXYMETHYLCELLULOSE SODIUM 0.4 ML DROPERETTE EACHEYE SCH (08:34)
[2018-04-27] MEDS: LEVETIRACETAM SOL (5 ML) 100 MG/ML UDC GT SCH ×2 (08:34→20:37)
[2018-04-27] MEDS: ASCORBIC ACID 500 MG TABLET GT SCH (08:34)
[2018-04-27] MEDS: MORPHINE SULFATE SOLN CONCENTRATED 20 MG/ML SL SCH ×2 (09:00→20:37)
[2018-04-27] MEDS: COD LIVER OIL/ZINC OXIDE 120 GM TUBE TP SCH ×2 (10:00→21:15)
[2018-04-27] MEDS: HYDROGEN PEROXIDE 480 ML BOTTLE TP SCH ×2 (10:00→21:15)
[2018-04-27] MEDS: DAKINS QUARTER STRENGTH (0.125%) 480 ML BOTTLE TOP SCH ×2 (10:00→21:15)
--- NOTE | 2018-04-27 11:40 | NUR ---
christmas tree farm worker called the office of Dr. Jiménez- photo lab specialist([address] [place] [address] Office Office ). JOSSE spoke to Shanelle and she noted that she will text Dr. Jiménez to let him know that there is still a pending consult for him.
[2018-04-27] MEDS: CHOLESTYRAMINE/ASPARTAME 4 G/PKT PACKET GT SCH (12:12)
[2018-04-27] MEDS: GLUCERNA 1.5 1,000 ML BOTTLE GT PRN (18:20)
--- NOTE | 2018-04-27 20:00 | NUR ---
RT Pt received trach'd and on CA w charted settings. Maurice @ [facility]. Sami is secure and patent. Hhn tx given and pt sx'd w no adverse reactions. No respiratory distress noted at this time. Will continue to monitor. Addendum: 04/27/18 at 2154 by MICA POWER RT Amended: Links added.
[2018-04-28 00:16] VITALS: BP 122/73
[2018-04-28] MEDS: ALBUTEROL FS 2.5 MG/3 ML VIAL.NEB NEB SCH ×4 (02:08→19:53)
[2018-04-28] MEDS: IPRATROPIUM NEB FS 0.5 MG/2.5 ML AMPUL.NEB IH SCH ×4 (02:08→19:53)
[2018-04-28] MEDS: OMEPRAZOLE 20 MG CAPSULE.DR GT SCH (05:49)
[2018-04-28] MEDS: LEVOTHYROXINE SODIUM 88 MCG TABLET GT SCH (05:49)
[2018-04-28 06:11] VITALS: BP 130/75
[2018-04-28] MEDS: ACETAMINOPHEN 650 MG/20 ML UDC- SA PATIENTS-PAIN ONLY GT PRN (06:25)
[2018-04-28 07:28] VITALS: BP 130/78
[2018-04-28] MEDS: ASCORBIC ACID 500 MG TABLET GT SCH (08:59)
[2018-04-28] MEDS: CARBOXYMETHYLCELLULOSE SODIUM 0.4 ML DROPERETTE EACHEYE SCH (08:59)
[2018-04-28] MEDS: ACIDOPHILUS/BULGARICUS 1 EACH TAB.CHEW GT SCH (08:59)
[2018-04-28] MEDS: CHLORHEXIDINE GLUCONATE 15 ML UDC MM SCH ×2 (08:59→17:51)
[2018-04-28] MEDS: MULTIVIT W/MINERALS 1 TAB TABLET GT SCH (08:59)
[2018-04-28] MEDS: ZINC SULFATE 220 MG CAPSULE GT SCH (08:59)
[2018-04-28] MEDS: LEVETIRACETAM SOL (5 ML) 100 MG/ML UDC GT SCH ×2 (08:59→21:13)
[2018-04-28] MEDS: MORPHINE SULFATE SOLN CONCENTRATED 20 MG/ML SL SCH ×2 (09:00→21:13)
[2018-04-28] MEDS: HYDROGEN PEROXIDE 480 ML BOTTLE TP SCH ×2 (09:30→21:45)
[2018-04-28] MEDS: COD LIVER OIL/ZINC OXIDE 120 GM TUBE TP SCH ×2 (09:30→21:45)
[2018-04-28] MEDS: DAKINS QUARTER STRENGTH (0.125%) 480 ML BOTTLE TOP SCH ×2 (09:30→21:45)
[2018-04-28 12:00] VITALS: BP 119/69
[2018-04-28] MEDS: CHOLESTYRAMINE/ASPARTAME 4 G/PKT PACKET GT SCH (12:30)
[2018-04-28 18:26] VITALS: BP 123/80
[2018-04-28 19:56] VITALS: BP 133/76
[2018-04-29 00:39] VITALS: BP 125/70
[2018-04-29] MEDS: IPRATROPIUM NEB FS 0.5 MG/2.5 ML AMPUL.NEB IH SCH ×4 (01:55→19:48)
[2018-04-29] MEDS: ALBUTEROL FS 2.5 MG/3 ML VIAL.NEB NEB SCH ×4 (01:55→19:48)
[2018-04-29] MEDS: OMEPRAZOLE 20 MG CAPSULE.DR GT SCH (05:26)
[2018-04-29] MEDS: LEVOTHYROXINE SODIUM 88 MCG TABLET GT SCH (05:26)
[2018-04-29] MEDS: GLUCERNA 1.5 1,000 ML BOTTLE GT PRN (06:01)
[2018-04-29 06:38] VITALS: BP 129/79
[2018-04-29 07:26] VITALS: BP 121/66
[2018-04-29] MEDS: CARBOXYMETHYLCELLULOSE SODIUM 0.4 ML DROPERETTE EACHEYE SCH (08:59)
[2018-04-29] MEDS: LEVETIRACETAM SOL (5 ML) 100 MG/ML UDC GT SCH ×2 (08:59→20:05)
[2018-04-29] MEDS: ACIDOPHILUS/BULGARICUS 1 EACH TAB.CHEW GT SCH (09:00)
[2018-04-29] MEDS: MORPHINE SULFATE SOLN CONCENTRATED 20 MG/ML SL SCH ×2 (09:00→20:05)
[2018-04-29] MEDS: ASCORBIC ACID 500 MG TABLET GT SCH (09:00)
[2018-04-29] MEDS: MULTIVIT W/MINERALS 1 TAB TABLET GT SCH (09:00)
[2018-04-29] MEDS: ZINC SULFATE 220 MG CAPSULE GT SCH (09:00)
[2018-04-29] MEDS: CHLORHEXIDINE GLUCONATE 15 ML UDC MM SCH ×2 (09:00→17:50)
[2018-04-29] MEDS: DAKINS QUARTER STRENGTH (0.125%) 480 ML BOTTLE TOP SCH ×2 (09:54→20:06)
[2018-04-29] MEDS: COD LIVER OIL/ZINC OXIDE 120 GM TUBE TP SCH ×2 (09:54→20:06)
[2018-04-29] MEDS: HYDROGEN PEROXIDE 480 ML BOTTLE TP SCH ×2 (09:54→20:06)
[2018-04-29] MEDS: ONDANSETRON 4 MG TAB.RAPDIS GT PRN (10:00)
[2018-04-29] MEDS: CHOLESTYRAMINE/ASPARTAME 4 G/PKT PACKET GT SCH (11:36)
[2018-04-29 12:19] VITALS: BP 129/78
[2018-04-29 18:01] VITALS: BP 124/68
[2018-04-29 20:04] VITALS: BP 123/58
[2018-04-30 00:37] VITALS: BP 117/71
[2018-04-30] MEDS: ALBUTEROL FS 2.5 MG/3 ML VIAL.NEB NEB SCH ×4 (00:52→19:50)
[2018-04-30] MEDS: IPRATROPIUM NEB FS 0.5 MG/2.5 ML AMPUL.NEB IH SCH ×4 (00:52→19:50)
[2018-04-30] MEDS: LEVOTHYROXINE SODIUM 88 MCG TABLET GT SCH (05:18)
[2018-04-30] MEDS: OMEPRAZOLE 20 MG CAPSULE.DR GT SCH (05:19)
[2018-04-30 06:21] VITALS: BP 134/72
[2018-04-30 07:35] VITALS: BP 133/76
[2018-04-30] MEDS: CARBOXYMETHYLCELLULOSE SODIUM 0.4 ML DROPERETTE EACHEYE SCH (08:34)
[2018-04-30] MEDS: LEVETIRACETAM SOL (5 ML) 100 MG/ML UDC GT SCH ×2 (08:34→20:49)
[2018-04-30] MEDS: PROSTAT (PYXIS) 30 ML UDC GT SCH ×3 (08:34→17:41)
[2018-04-30] MEDS: ACIDOPHILUS/BULGARICUS 1 EACH TAB.CHEW GT SCH (08:34)
[2018-04-30] MEDS: ASCORBIC ACID 500 MG TABLET GT SCH (08:35)
[2018-04-30] MEDS: CHLORHEXIDINE GLUCONATE 15 ML UDC MM SCH ×2 (08:35→17:41)
[2018-04-30] MEDS: MORPHINE SULFATE SOLN CONCENTRATED 20 MG/ML SL SCH ×2 (08:35→20:49)
[2018-04-30] MEDS: ZINC SULFATE 220 MG CAPSULE GT SCH (08:35)
[2018-04-30] MEDS: MULTIVIT W/MINERALS 1 TAB TABLET GT SCH (08:35)
[2018-04-30] MEDS: DAKINS QUARTER STRENGTH (0.125%) 480 ML BOTTLE TOP SCH ×2 (09:00→21:25)
[2018-04-30] MEDS: HYDROGEN PEROXIDE 480 ML BOTTLE TP SCH ×2 (09:00→20:49)
[2018-04-30] MEDS: COD LIVER OIL/ZINC OXIDE 120 GM TUBE TP SCH ×2 (09:00→20:49)
[2018-04-30 12:00] VITALS: BP_SYST 140; BP_SYST 145; BP_DIAS 84
[2018-04-30] MEDS: CHOLESTYRAMINE/ASPARTAME 4 G/PKT PACKET GT SCH (12:31)
--- NOTE | 2018-04-30 15:02 | NUR ---
Pt's urine bypassing Jamil catheter. Jamil catheter Fr 18 x 10 mL was replaced. Pt tolerated procedure well. Light yellow urine draining to bag.
[2018-04-30] MEDS: GLUCERNA 1.2 1,000 ML BOTTLE GT PRN (17:41)
[2018-04-30 18:03] VITALS: BP 133/73
--- NOTE | 2018-04-30 18:32 | NUR ---
Late entry for 04/26/18 Dr Darryl Winters debrided pt's sacral wound. Pt tolerated procedure well.
[2018-04-30 20:05] VITALS: BP 114/66
[2018-05-01 00:01] VITALS: BP 118/72
[2018-05-01] MEDS: IPRATROPIUM NEB FS 0.5 MG/2.5 ML AMPUL.NEB IH SCH ×4 (01:34→20:02)
[2018-05-01] MEDS: ALBUTEROL FS 2.5 MG/3 ML VIAL.NEB NEB SCH ×4 (01:34→20:02)
[2018-05-01] MEDS: OMEPRAZOLE 20 MG CAPSULE.DR GT SCH (05:06)
[2018-05-01] MEDS: LEVOTHYROXINE SODIUM 88 MCG TABLET GT SCH (05:06)
[2018-05-01 06:05] VITALS: BP 116/55
[2018-05-01 07:23] VITALS: BP 123/68
[2018-05-01] MEDS: MULTIVIT W/MINERALS 1 TAB TABLET GT SCH (08:23)
[2018-05-01] MEDS: MORPHINE SULFATE SOLN CONCENTRATED 20 MG/ML SL SCH ×2 (08:23→20:44)
[2018-05-01] MEDS: ZINC SULFATE 220 MG CAPSULE GT SCH (08:23)
[2018-05-01] MEDS: ACIDOPHILUS/BULGARICUS 1 EACH TAB.CHEW GT SCH (08:23)
[2018-05-01] MEDS: LEVETIRACETAM SOL (5 ML) 100 MG/ML UDC GT SCH ×2 (08:23→20:44)
[2018-05-01] MEDS: CARBOXYMETHYLCELLULOSE SODIUM 0.4 ML DROPERETTE EACHEYE SCH (08:23)
[2018-05-01] MEDS: CHLORHEXIDINE GLUCONATE 15 ML UDC MM SCH ×2 (08:23→17:43)
[2018-05-01] MEDS: ASCORBIC ACID 500 MG TABLET GT SCH (08:23)
[2018-05-01] MEDS: PROSTAT (PYXIS) 30 ML UDC GT SCH ×3 (08:23→17:43)
[2018-05-01] MEDS: COD LIVER OIL/ZINC OXIDE 120 GM TUBE TP SCH ×2 (09:00→21:27)
[2018-05-01] MEDS: DAKINS QUARTER STRENGTH (0.125%) 480 ML BOTTLE TOP SCH ×2 (09:00→21:27)
[2018-05-01] MEDS: HYDROGEN PEROXIDE 480 ML BOTTLE TP SCH ×2 (09:00→21:27)
[2018-05-01 12:00] VITALS: BP 111/92
[2018-05-01] MEDS: CHOLESTYRAMINE/ASPARTAME 4 G/PKT PACKET GT SCH (12:05)
[2018-05-01 18:52] VITALS: BP 103/67
[2018-05-01 19:51] VITALS: BP 121/78
[2018-05-01] MEDS: GLUCERNA 1.2 1,000 ML BOTTLE GT PRN (23:09)
[2018-05-02 00:30] VITALS: BP 121/78
[2018-05-02] MEDS: ALBUTEROL FS 2.5 MG/3 ML VIAL.NEB NEB SCH ×4 (01:43→19:56)
[2018-05-02] MEDS: IPRATROPIUM NEB FS 0.5 MG/2.5 ML AMPUL.NEB IH SCH ×4 (01:43→19:56)
[2018-05-02] MEDS: LEVOTHYROXINE SODIUM 88 MCG TABLET GT SCH (05:43)
[2018-05-02] MEDS: OMEPRAZOLE 20 MG CAPSULE.DR GT SCH (05:43)
[2018-05-02 06:26] VITALS: BP 121/75
[2018-05-02 08:02] VITALS: BP 132/62
[2018-05-02] MEDS: ACIDOPHILUS/BULGARICUS 1 EACH TAB.CHEW GT SCH (08:38)
[2018-05-02] MEDS: ZINC SULFATE 220 MG CAPSULE GT SCH (08:38)
[2018-05-02] MEDS: LEVETIRACETAM SOL (5 ML) 100 MG/ML UDC GT SCH ×2 (08:38→20:59)
[2018-05-02] MEDS: CHLORHEXIDINE GLUCONATE 15 ML UDC MM SCH ×2 (08:38→16:31)
[2018-05-02] MEDS: MULTIVIT W/MINERALS 1 TAB TABLET GT SCH (08:38)
[2018-05-02] MEDS: MORPHINE SULFATE SOLN CONCENTRATED 20 MG/ML SL SCH ×2 (08:38→20:59)
[2018-05-02] MEDS: CARBOXYMETHYLCELLULOSE SODIUM 0.4 ML DROPERETTE EACHEYE SCH (08:38)
[2018-05-02] MEDS: PROSTAT (PYXIS) 30 ML UDC GT SCH ×3 (08:38→16:31)
[2018-05-02] MEDS: ASCORBIC ACID 500 MG TABLET GT SCH (08:38)
[2018-05-02] MEDS: HYDROGEN PEROXIDE 480 ML BOTTLE TP SCH ×2 (09:00→21:00)
[2018-05-02] MEDS: COD LIVER OIL/ZINC OXIDE 120 GM TUBE TP SCH ×2 (09:00→22:00)
[2018-05-02] MEDS: DAKINS QUARTER STRENGTH (0.125%) 480 ML BOTTLE TOP SCH ×2 (09:00→22:00)
--- NOTE | 2018-05-02 09:55 | NUR ---
RT NOTE: RECEIVED TRACH PT ON COOL AEROSOL ON CHARTED SETTINGS. AMBU BAG/BACK UP TRACH @ BEDSIDE. HHN TX GIVEN PER MD ORDERS WITH NO ADVERSE REACTION NOTED. SX DONE PRN. TRACH SECURED AND PATENT. NO RESP DISTRESS NOTED AT THIS TIME. WILL CONTINUE TO MONITOR. Addendum: 05/02/18 at 0957 by MATT REHMAN RT Amended: Links added.
[2018-05-02] MEDS: CHOLESTYRAMINE/ASPARTAME 4 G/PKT PACKET GT SCH (12:00)
[2018-05-02 14:52] VITALS: BP 132/62
[2018-05-02 18:18] VITALS: BP 115/68
[2018-05-02 20:08] VITALS: BP 121/70
[2018-05-03 00:20] VITALS: BP 113/68
[2018-05-03] MEDS: IPRATROPIUM NEB FS 0.5 MG/2.5 ML AMPUL.NEB IH SCH ×4 (01:36→19:16)
[2018-05-03] MEDS: ALBUTEROL FS 2.5 MG/3 ML VIAL.NEB NEB SCH ×4 (01:36→19:16)
[2018-05-03] MEDS: LEVOTHYROXINE SODIUM 88 MCG TABLET GT SCH (05:32)
[2018-05-03] MEDS: OMEPRAZOLE 20 MG CAPSULE.DR GT SCH (05:32)
[2018-05-03 06:05] VITALS: BP 122/62
[2018-05-03] MEDS: GLUCERNA 1.2 1,000 ML BOTTLE GT PRN (07:02)
[2018-05-03 07:18] VITALS: BP 116/64
[2018-05-03] MEDS: MULTIVIT W/MINERALS 1 TAB TABLET GT SCH (08:59)
[2018-05-03] MEDS: PROSTAT (PYXIS) 30 ML UDC GT SCH ×3 (08:59→17:54)
[2018-05-03] MEDS: CARBOXYMETHYLCELLULOSE SODIUM 0.4 ML DROPERETTE EACHEYE SCH (08:59)
[2018-05-03] MEDS: LEVETIRACETAM SOL (5 ML) 100 MG/ML UDC GT SCH ×2 (08:59→20:54)
[2018-05-03] MEDS: ASCORBIC ACID 500 MG TABLET GT SCH (08:59)
[2018-05-03] MEDS: ZINC SULFATE 220 MG CAPSULE GT SCH (08:59)
[2018-05-03] MEDS: CHLORHEXIDINE GLUCONATE 15 ML UDC MM SCH ×2 (08:59→17:54)
[2018-05-03] MEDS: ACIDOPHILUS/BULGARICUS 1 EACH TAB.CHEW GT SCH (08:59)
[2018-05-03] MEDS: MORPHINE SULFATE SOLN CONCENTRATED 20 MG/ML SL SCH ×2 (08:59→20:54)
[2018-05-03] MEDS: HYDROGEN PEROXIDE 480 ML BOTTLE TP SCH ×2 (10:30→20:55)
[2018-05-03] MEDS: DAKINS QUARTER STRENGTH (0.125%) 480 ML BOTTLE TOP SCH ×2 (10:30→20:55)
[2018-05-03] MEDS: COD LIVER OIL/ZINC OXIDE 120 GM TUBE TP SCH ×2 (10:30→20:55)
[2018-05-03] MEDS: CHOLESTYRAMINE/ASPARTAME 4 G/PKT PACKET GT SCH (11:23)
[2018-05-03 12:00] VITALS: BP 121/64
[2018-05-03 18:00] VITALS: BP 115/71
--- NOTE | 2018-05-03 20:09 | NUR ---
Patient received on 28% cool aerosol t-tube, tolerating with no sign of distress/SOB. Suctioned with lavage for minimal, thin, yellow secretions. Given in-line treatments with no adverse reactions. Ambu bag at bedside. Addendum: 05/03/18 at 2010 by IVAN TOLBERT RT Amended: Links added.
[2018-05-03 20:25] VITALS: BP 99/64
[2018-05-03] MEDS: hydrALAZINE HCL 10 MG TABLET GT PRN (23:59)
[2018-05-04] VITALS: BP 111/62
[2018-05-04] MEDS: ALBUTEROL FS 2.5 MG/3 ML VIAL.NEB NEB SCH ×4 (01:52→19:38)
[2018-05-04] MEDS: IPRATROPIUM NEB FS 0.5 MG/2.5 ML AMPUL.NEB IH SCH ×4 (01:52→19:38)
[2018-05-04] MEDS: OMEPRAZOLE 20 MG CAPSULE.DR GT SCH (05:13)
[2018-05-04] MEDS: LEVOTHYROXINE SODIUM 88 MCG TABLET GT SCH (05:13)
[2018-05-04 06:00] VITALS: BP 113/66
[2018-05-04 07:19] VITALS: BP 108/59
[2018-05-04] MEDS: COD LIVER OIL/ZINC OXIDE 120 GM TUBE TP SCH ×2 (09:00→21:50)
[2018-05-04] MEDS: CHLORHEXIDINE GLUCONATE 15 ML UDC MM SCH ×2 (09:27→17:08)
[2018-05-04] MEDS: CARBOXYMETHYLCELLULOSE SODIUM 0.4 ML DROPERETTE EACHEYE SCH (09:27)
[2018-05-04] MEDS: PROSTAT (PYXIS) 30 ML UDC GT SCH ×3 (09:27→17:08)
[2018-05-04] MEDS: ASCORBIC ACID 500 MG TABLET GT SCH (09:27)
[2018-05-04] MEDS: MULTIVIT W/MINERALS 1 TAB TABLET GT SCH (09:27)
[2018-05-04] MEDS: MORPHINE SULFATE SOLN CONCENTRATED 20 MG/ML SL SCH ×2 (09:27→21:50)
[2018-05-04] MEDS: ZINC SULFATE 220 MG CAPSULE GT SCH (09:27)
[2018-05-04] MEDS: ACIDOPHILUS/BULGARICUS 1 EACH TAB.CHEW GT SCH (09:27)
[2018-05-04] MEDS: LEVETIRACETAM SOL (5 ML) 100 MG/ML UDC GT SCH ×2 (09:27→21:49)
[2018-05-04] MEDS: HYDROGEN PEROXIDE 480 ML BOTTLE TP SCH ×2 (10:00→21:50)
[2018-05-04] MEDS: DAKINS QUARTER STRENGTH (0.125%) 480 ML BOTTLE TOP SCH ×2 (10:00→21:50)
[2018-05-04 12:00] VITALS: BP 121/67
[2018-05-04] MEDS: CHOLESTYRAMINE/ASPARTAME 4 G/PKT PACKET GT SCH (12:00)
[2018-05-04] MEDS: GLUCERNA 1.2 1,000 ML BOTTLE GT PRN (17:08)
[2018-05-04] MEDS: BISACODYL SUPP (10 MG) 10 MG/SUPP.RECT SUPP.RECT RC PRN (18:45)
[2018-05-04 18:52] VITALS: BP 119/64
[2018-05-04 19:41] VITALS: BP 128/74
--- NOTE | 2018-05-04 21:12 | NUR ---
PT RCMONTGOMERY'D ON COOL AEROSOL WITH CHARTED SETTINGS. HHN TX GIVEN AND NO ADVERSE REACTION NOTED. SX DONE. PT TRACH PATENT AND SECURE. NO RESPIRATORY DISTRESS NOTED AT THIS TIME. AMBU BAG AT BEDSIDE. WILL CONTINUE TO MONITOR. Addendum: 05/04/18 at 2112 by ALEXEY MADRID RT Amended: Links added.
[2018-05-05 00:20] VITALS: BP 120/64
[2018-05-05] MEDS: IPRATROPIUM NEB FS 0.5 MG/2.5 ML AMPUL.NEB IH SCH ×4 (01:17→19:33)
[2018-05-05] MEDS: ALBUTEROL FS 2.5 MG/3 ML VIAL.NEB NEB SCH ×4 (01:18→19:33)
[2018-05-05] MEDS: LEVOTHYROXINE SODIUM 88 MCG TABLET GT SCH (05:09)
[2018-05-05] MEDS: OMEPRAZOLE 20 MG CAPSULE.DR GT SCH (05:09)
[2018-05-05 06:01] VITALS: BP 120/62
[2018-05-05 07:31] VITALS: BP 135/69
[2018-05-05] MEDS: MULTIVIT W/MINERALS 1 TAB TABLET GT SCH (08:54)
[2018-05-05] MEDS: ZINC SULFATE 220 MG CAPSULE GT SCH (08:54)
[2018-05-05] MEDS: ASCORBIC ACID 500 MG TABLET GT SCH (08:54)
[2018-05-05] MEDS: CARBOXYMETHYLCELLULOSE SODIUM 0.4 ML DROPERETTE EACHEYE SCH (08:54)
[2018-05-05] MEDS: LEVETIRACETAM SOL (5 ML) 100 MG/ML UDC GT SCH ×2 (08:54→20:44)
[2018-05-05] MEDS: PROSTAT (PYXIS) 30 ML UDC GT SCH ×3 (08:54→16:56)
[2018-05-05] MEDS: CHLORHEXIDINE GLUCONATE 15 ML UDC MM SCH ×2 (08:54→16:56)
[2018-05-05] MEDS: ACIDOPHILUS/BULGARICUS 1 EACH TAB.CHEW GT SCH (08:54)
[2018-05-05] MEDS: MORPHINE SULFATE SOLN CONCENTRATED 20 MG/ML SL SCH ×2 (08:54→20:44)
[2018-05-05] MEDS: HYDROGEN PEROXIDE 480 ML BOTTLE TP SCH ×2 (09:30→21:19)
[2018-05-05] MEDS: COD LIVER OIL/ZINC OXIDE 120 GM TUBE TP SCH ×2 (09:30→21:19)
[2018-05-05] MEDS: DAKINS QUARTER STRENGTH (0.125%) 480 ML BOTTLE TOP SCH ×2 (09:30→21:19)
[2018-05-05 12:00] VITALS: BP 127/59
[2018-05-05] MEDS: CHOLESTYRAMINE/ASPARTAME 4 G/PKT PACKET GT SCH (12:05)
[2018-05-05 18:00] VITALS: BP 102/69
[2018-05-05] MEDS: BISACODYL SUPP (10 MG) 10 MG/SUPP.RECT SUPP.RECT RC PRN (19:02)
--- NOTE | 2018-05-05 21:32 | NUR ---
RT NOTE: PATIENT WAS RECEIVED ON COOL AEROSOL. AMBU BAG/BACK UP TRACH @ BEDSIDE. Q6 BREATHING TX GIVEN PER MD ORDERS WITH NO ADVERSE REACTION NOTED. SUCTION DONE PRN. TRACH PATENT AND SECURED. NO RESPIRATORY DISTRESS NOTED AT THIS TIME. WILL CONTINUE TO MONITOR PATIENT Addendum: 05/05/18 at 2132 by DAKSHA SHARP RT Amended: Links added.
[2018-05-06] VITALS (7 sets, daily range): BP systolic 105–118; BP diastolic 54–79
[2018-05-06] MEDS: IPRATROPIUM NEB FS 0.5 MG/2.5 ML AMPUL.NEB IH SCH ×4 (01:33→20:17)
[2018-05-06] MEDS: ALBUTEROL FS 2.5 MG/3 ML VIAL.NEB NEB SCH ×4 (01:34→20:17)
[2018-05-06] MEDS: LEVOTHYROXINE SODIUM 88 MCG TABLET GT SCH (05:26)
[2018-05-06] MEDS: OMEPRAZOLE 20 MG CAPSULE.DR GT SCH (05:26)
[2018-05-06] MEDS: GLUCERNA 1.2 1,000 ML BOTTLE GT PRN (05:59)
[2018-05-06] MEDS: DAKINS QUARTER STRENGTH (0.125%) 480 ML BOTTLE TOP SCH ×2 (09:00→21:23)
[2018-05-06] MEDS: COD LIVER OIL/ZINC OXIDE 120 GM TUBE TP SCH ×2 (09:00→21:24)
[2018-05-06] MEDS: HYDROGEN PEROXIDE 480 ML BOTTLE TP SCH ×2 (09:00→21:24)
[2018-05-06] MEDS: LEVETIRACETAM SOL (5 ML) 100 MG/ML UDC GT SCH ×2 (09:58→21:23)
[2018-05-06] MEDS: MULTIVIT W/MINERALS 1 TAB TABLET GT SCH (09:58)
[2018-05-06] MEDS: ACIDOPHILUS/BULGARICUS 1 EACH TAB.CHEW GT SCH (09:58)
[2018-05-06] MEDS: PROSTAT (PYXIS) 30 ML UDC GT SCH ×3 (09:58→16:08)
[2018-05-06] MEDS: CARBOXYMETHYLCELLULOSE SODIUM 0.4 ML DROPERETTE EACHEYE SCH (09:58)
[2018-05-06] MEDS: ASCORBIC ACID 500 MG TABLET GT SCH (09:58)
[2018-05-06] MEDS: ZINC SULFATE 220 MG CAPSULE GT SCH (09:59)
[2018-05-06] MEDS: MORPHINE SULFATE SOLN CONCENTRATED 20 MG/ML SL SCH ×2 (09:59→21:23)
[2018-05-06] MEDS: CHLORHEXIDINE GLUCONATE 15 ML UDC MM SCH ×2 (09:59→16:08)
[2018-05-06] MEDS: CHOLESTYRAMINE/ASPARTAME 4 G/PKT PACKET GT SCH (12:59)
[2018-05-07 00:19] VITALS: BP 116/60
[2018-05-07] MEDS: ALBUTEROL FS 2.5 MG/3 ML VIAL.NEB NEB SCH ×4 (02:27→20:18)
[2018-05-07] MEDS: IPRATROPIUM NEB FS 0.5 MG/2.5 ML AMPUL.NEB IH SCH ×4 (02:27→20:18)
[2018-05-07] MEDS: LEVOTHYROXINE SODIUM 88 MCG TABLET GT SCH (06:02)
[2018-05-07] MEDS: OMEPRAZOLE 20 MG CAPSULE.DR GT SCH (06:02)
[2018-05-07 06:08] VITALS: BP 111/58
[2018-05-07 07:36] VITALS: BP 117/67
[2018-05-07] MEDS: MORPHINE SULFATE SOLN CONCENTRATED 20 MG/ML SL SCH ×2 (08:59→21:41)
[2018-05-07] MEDS: ASCORBIC ACID 500 MG TABLET GT SCH (08:59)
[2018-05-07] MEDS: CARBOXYMETHYLCELLULOSE SODIUM 0.4 ML DROPERETTE EACHEYE SCH (08:59)
[2018-05-07] MEDS: MULTIVIT W/MINERALS 1 TAB TABLET GT SCH (08:59)
[2018-05-07] MEDS: PROSTAT (PYXIS) 30 ML UDC GT SCH ×3 (08:59→16:44)
[2018-05-07] MEDS: ACIDOPHILUS/BULGARICUS 1 EACH TAB.CHEW GT SCH (08:59)
[2018-05-07] MEDS: CHLORHEXIDINE GLUCONATE 15 ML UDC MM SCH ×2 (08:59→16:44)
[2018-05-07] MEDS: ZINC SULFATE 220 MG CAPSULE GT SCH (08:59)
[2018-05-07] MEDS: LEVETIRACETAM SOL (5 ML) 100 MG/ML UDC GT SCH ×2 (08:59→21:41)
[2018-05-07] MEDS: COD LIVER OIL/ZINC OXIDE 120 GM TUBE TP SCH ×2 (09:00→21:41)
[2018-05-07] MEDS: DAKINS QUARTER STRENGTH (0.125%) 480 ML BOTTLE TOP SCH ×2 (09:30→21:41)
[2018-05-07] MEDS: HYDROGEN PEROXIDE 480 ML BOTTLE TP SCH ×2 (09:30→21:41)
[2018-05-07 12:00] VITALS: BP 106/55
[2018-05-07] MEDS: CHOLESTYRAMINE/ASPARTAME 4 G/PKT PACKET GT SCH (12:00)
[2018-05-07] MEDS: GLUCERNA 1.2 1,000 ML BOTTLE GT PRN (13:33)
[2018-05-07 18:00] VITALS: BP 105/59
[2018-05-07 19:47] VITALS: BP 109/52
[2018-05-08 00:14] VITALS: BP 112/62
[2018-05-08] MEDS: IPRATROPIUM NEB FS 0.5 MG/2.5 ML AMPUL.NEB IH SCH ×4 (01:13→19:51)
[2018-05-08] MEDS: ALBUTEROL FS 2.5 MG/3 ML VIAL.NEB NEB SCH ×4 (01:13→19:51)
[2018-05-08] MEDS: LEVOTHYROXINE SODIUM 88 MCG TABLET GT SCH (06:10)
[2018-05-08] MEDS: OMEPRAZOLE 20 MG CAPSULE.DR GT SCH (06:10)
[2018-05-08 06:11] VITALS: BP 116/58
[2018-05-08 07:40] VITALS: BP 102/58
[2018-05-08] MEDS: CARBOXYMETHYLCELLULOSE SODIUM 0.4 ML DROPERETTE EACHEYE SCH (08:27)
[2018-05-08] MEDS: PROSTAT (PYXIS) 30 ML UDC GT SCH ×3 (08:28→16:44)
[2018-05-08] MEDS: CHLORHEXIDINE GLUCONATE 15 ML UDC MM SCH ×2 (08:28→16:44)
[2018-05-08] MEDS: ZINC SULFATE 220 MG CAPSULE GT SCH (08:28)
[2018-05-08] MEDS: ASCORBIC ACID 500 MG TABLET GT SCH (08:28)
[2018-05-08] MEDS: MULTIVIT W/MINERALS 1 TAB TABLET GT SCH (08:28)
[2018-05-08] MEDS: ACIDOPHILUS/BULGARICUS 1 EACH TAB.CHEW GT SCH (08:28)
[2018-05-08] MEDS: LEVETIRACETAM SOL (5 ML) 100 MG/ML UDC GT SCH ×2 (08:29→20:57)
[2018-05-08] MEDS: HYDROGEN PEROXIDE 480 ML BOTTLE TP SCH ×2 (09:00→20:57)
[2018-05-08] MEDS: DAKINS QUARTER STRENGTH (0.125%) 480 ML BOTTLE TOP SCH ×2 (09:00→20:57)
[2018-05-08] MEDS: COD LIVER OIL/ZINC OXIDE 120 GM TUBE TP SCH ×2 (09:00→20:57)
[2018-05-08] MEDS: MORPHINE SULFATE SOLN CONCENTRATED 20 MG/ML SL SCH ×2 (09:00→20:57)
[2018-05-08 12:00] VITALS: BP 121/57
[2018-05-08] MEDS: CHOLESTYRAMINE/ASPARTAME 4 G/PKT PACKET GT SCH (12:47)
[2018-05-08 18:32] VITALS: BP 125/60
[2018-05-08 20:19] VITALS: BP 116/63
[2018-05-09 00:05] VITALS: BP 119/59
[2018-05-09] MEDS: ALBUTEROL FS 2.5 MG/3 ML VIAL.NEB NEB SCH ×4 (02:26→19:57)
[2018-05-09] MEDS: IPRATROPIUM NEB FS 0.5 MG/2.5 ML AMPUL.NEB IH SCH ×4 (02:26→19:57)
[2018-05-09] MEDS: OMEPRAZOLE 20 MG CAPSULE.DR GT SCH (05:53)
[2018-05-09] MEDS: LEVOTHYROXINE SODIUM 88 MCG TABLET GT SCH (05:53)
[2018-05-09 06:40] VITALS: BP 109/60
[2018-05-09 07:52] VITALS: BP 97/58
[2018-05-09] MEDS: ASCORBIC ACID 500 MG TABLET GT SCH (08:45)
[2018-05-09] MEDS: PROSTAT (PYXIS) 30 ML UDC GT SCH ×3 (08:45→17:00)
[2018-05-09] MEDS: ACIDOPHILUS/BULGARICUS 1 EACH TAB.CHEW GT SCH (08:45)
[2018-05-09] MEDS: MULTIVIT W/MINERALS 1 TAB TABLET GT SCH (08:45)
[2018-05-09] MEDS: CARBOXYMETHYLCELLULOSE SODIUM 0.4 ML DROPERETTE EACHEYE SCH (08:45)
[2018-05-09] MEDS: LEVETIRACETAM SOL (5 ML) 100 MG/ML UDC GT SCH ×2 (08:45→20:50)
[2018-05-09] MEDS: ZINC SULFATE 220 MG CAPSULE GT SCH (08:45)
[2018-05-09] MEDS: CHLORHEXIDINE GLUCONATE 15 ML UDC MM SCH ×2 (09:00→17:00)
[2018-05-09] MEDS: MORPHINE SULFATE SOLN CONCENTRATED 20 MG/ML SL SCH ×2 (09:00→20:50)
[2018-05-09] MEDS: COD LIVER OIL/ZINC OXIDE 120 GM TUBE TP SCH ×2 (09:30→21:51)
[2018-05-09] MEDS: HYDROGEN PEROXIDE 480 ML BOTTLE TP SCH ×2 (09:30→21:51)
[2018-05-09] MEDS: DAKINS QUARTER STRENGTH (0.125%) 480 ML BOTTLE TOP SCH ×2 (09:30→21:51)
[2018-05-09] MEDS: CHOLESTYRAMINE/ASPARTAME 4 G/PKT PACKET GT SCH (11:59)
[2018-05-09 12:00] VITALS: BP 110/62
[2018-05-09 18:00] VITALS: BP 105/59
[2018-05-09 19:55] VITALS: BP 107/60
--- NOTE | 2018-05-09 20:09 | NUR ---
PT RCVD TRACH'D ON COOL AEROSOL 28% 5L. BREATHING TX GIVEN AND NO ADVERSE REACTION NOTED. SX DONE. NO RESPIRATORY DISTRESS NOTED AT THIS TIME. AMBU BAG AT BEDSIDE. WILL CONTINUE TO MONITOR.
[2018-05-10 00:20] VITALS: BP 107/51
[2018-05-10] MEDS: GLUCERNA 1.2 1,000 ML BOTTLE GT PRN (00:52)
[2018-05-10] MEDS: ALBUTEROL FS 2.5 MG/3 ML VIAL.NEB NEB SCH ×4 (00:59→19:58)
[2018-05-10] MEDS: IPRATROPIUM NEB FS 0.5 MG/2.5 ML AMPUL.NEB IH SCH ×4 (00:59→19:58)
[2018-05-10] MEDS: OMEPRAZOLE 20 MG CAPSULE.DR GT SCH (05:35)
[2018-05-10] MEDS: LEVOTHYROXINE SODIUM 88 MCG TABLET GT SCH (05:35)
[2018-05-10 06:13] VITALS: BP 99/61
[2018-05-10 07:37] VITALS: BP 96/59
[2018-05-10] MEDS: LEVETIRACETAM SOL (5 ML) 100 MG/ML UDC GT SCH ×2 (08:53→21:42)
[2018-05-10] MEDS: PROSTAT (PYXIS) 30 ML UDC GT SCH ×4 (08:53→17:00)
[2018-05-10] MEDS: ZINC SULFATE 220 MG CAPSULE GT SCH (08:53)
[2018-05-10] MEDS: ACIDOPHILUS/BULGARICUS 1 EACH TAB.CHEW GT SCH (08:53)
[2018-05-10] MEDS: MORPHINE SULFATE SOLN CONCENTRATED 20 MG/ML SL SCH ×2 (08:53→21:42)
[2018-05-10] MEDS: CHLORHEXIDINE GLUCONATE 15 ML UDC MM SCH ×2 (08:53→17:00)
[2018-05-10] MEDS: MULTIVIT W/MINERALS 1 TAB TABLET GT SCH (08:53)
[2018-05-10] MEDS: ASCORBIC ACID 500 MG TABLET GT SCH (08:53)
[2018-05-10] MEDS: CARBOXYMETHYLCELLULOSE SODIUM 0.4 ML DROPERETTE EACHEYE SCH (08:53)
[2018-05-10] MEDS: HYDROGEN PEROXIDE 480 ML BOTTLE TP SCH ×2 (09:00→22:00)
[2018-05-10] MEDS: DAKINS QUARTER STRENGTH (0.125%) 480 ML BOTTLE TOP SCH ×2 (09:30→22:00)
[2018-05-10] MEDS: COD LIVER OIL/ZINC OXIDE 120 GM TUBE TP SCH ×2 (09:30→22:00)
[2018-05-10 12:00] VITALS: BP 109/46
[2018-05-10] MEDS: CHOLESTYRAMINE/ASPARTAME 4 G/PKT PACKET GT SCH (12:10)
--- NOTE | 2018-05-10 13:00 | NUR ---
Sacral wound debridement done by Dr Darryl Winters. He also looked at pt's dried blisters/rash on the bilateral thighs and ordered to apply Mycolog cream q shift for 14 days.
[2018-05-10] MEDS: BISACODYL SUPP (10 MG) 10 MG/SUPP.RECT SUPP.RECT RC PRN (18:27)
[2018-05-10 18:47] VITALS: BP 113/48
[2018-05-10 19:20] VITALS: BP 114/60
--- NOTE | 2018-05-10 20:10 | NUR ---
PT RCVD TRACH SHILEY 6 ON COOL AEROSOL 28% 5L. BREATHING TX GIVEN AND NO ADVERSE REACTION NOTED. SX DONE. NO RESPIRATORY DISTRESS NOTED AT THIS TIME. AMBU BAG AT BEDSIDE. WILL CONTINUE TO MONITOR.
[2018-05-10] MEDS: NYSTATIN/TRIAMCIN 15 GM CREAM 15 GM TUBE TP SCH (22:00)
[2018-05-11 00:20] VITALS: BP 109/57
[2018-05-11] MEDS: IPRATROPIUM NEB FS 0.5 MG/2.5 ML AMPUL.NEB IH SCH ×4 (00:53→19:39)
[2018-05-11] MEDS: ALBUTEROL FS 2.5 MG/3 ML VIAL.NEB NEB SCH ×4 (00:53→19:40)
[2018-05-11] MEDS: OMEPRAZOLE 20 MG CAPSULE.DR GT SCH (05:26)
[2018-05-11] MEDS: LEVOTHYROXINE SODIUM 88 MCG TABLET GT SCH (05:26)
[2018-05-11] MEDS: GLUCERNA 1.2 1,000 ML BOTTLE GT PRN (06:06)
[2018-05-11 06:23] VITALS: BP 107/51
[2018-05-11 07:28] VITALS: BP 91/41
[2018-05-11] MEDS: ASCORBIC ACID 500 MG TABLET GT SCH (08:49)
[2018-05-11] MEDS: MORPHINE SULFATE SOLN CONCENTRATED 20 MG/ML SL SCH ×2 (08:49→21:00)
[2018-05-11] MEDS: CARBOXYMETHYLCELLULOSE SODIUM 0.4 ML DROPERETTE EACHEYE SCH (08:49)
[2018-05-11] MEDS: PROSTAT (PYXIS) 30 ML UDC GT SCH ×3 (08:49→16:35)
[2018-05-11] MEDS: ACIDOPHILUS/BULGARICUS 1 EACH TAB.CHEW GT SCH (08:49)
[2018-05-11] MEDS: ZINC SULFATE 220 MG CAPSULE GT SCH (08:49)
[2018-05-11] MEDS: LEVETIRACETAM SOL (5 ML) 100 MG/ML UDC GT SCH ×2 (08:49→21:00)
[2018-05-11] MEDS: MULTIVIT W/MINERALS 1 TAB TABLET GT SCH (08:49)
[2018-05-11] MEDS: CHLORHEXIDINE GLUCONATE 15 ML UDC MM SCH ×2 (08:49→16:35)
[2018-05-11] MEDS: HYDROGEN PEROXIDE 480 ML BOTTLE TP SCH ×2 (09:30→21:31)
[2018-05-11] MEDS: COD LIVER OIL/ZINC OXIDE 120 GM TUBE TP SCH ×2 (09:30→21:31)
[2018-05-11] MEDS: NYSTATIN/TRIAMCIN 15 GM CREAM 15 GM TUBE TP SCH (09:30)
[2018-05-11] MEDS: DAKINS QUARTER STRENGTH (0.125%) 480 ML BOTTLE TOP SCH ×2 (09:30→21:31)
[2018-05-11 12:00] VITALS: BP 102/58
[2018-05-11] MEDS: CHOLESTYRAMINE/ASPARTAME 4 G/PKT PACKET GT SCH (12:04)
--- NOTE | 2018-05-11 15:17 | NUR ---
Seen and examined by Dr. Ramirez, NNO given.
[2018-05-11 18:00] VITALS: BP 102/55
--- NOTE | 2018-05-11 19:57 | NUR ---
PT RCVD TRACH SHILEY 6 ON COOL AEROSOL 28% 5L. BREATHING TX GIVEN AND NO ADVERSE REACTION NOTED. SUCTIONED YELLOW/WHITE THICK SECRETIONS. NO RESPIRATORY DISTRESS NOTED AT THIS TIME. AMBU BAG AT BEDSIDE. WILL CONTINUE TO MONITOR.
[2018-05-12 00:01] VITALS: BP 114/64
[2018-05-12] MEDS: IPRATROPIUM NEB FS 0.5 MG/2.5 ML AMPUL.NEB IH SCH ×4 (00:50→20:01)
[2018-05-12] MEDS: ALBUTEROL FS 2.5 MG/3 ML VIAL.NEB NEB SCH ×4 (00:50→20:01)
[2018-05-12] MEDS: LEVOTHYROXINE SODIUM 88 MCG TABLET GT SCH (05:41)
[2018-05-12] MEDS: OMEPRAZOLE 20 MG CAPSULE.DR GT SCH (05:41)
[2018-05-12 06:08] VITALS: BP 114/66
[2018-05-12 07:21] VITALS: BP 115/60
[2018-05-12] MEDS: ZINC SULFATE 220 MG CAPSULE GT SCH (09:16)
[2018-05-12] MEDS: CARBOXYMETHYLCELLULOSE SODIUM 0.4 ML DROPERETTE EACHEYE SCH (09:16)
[2018-05-12] MEDS: ACIDOPHILUS/BULGARICUS 1 EACH TAB.CHEW GT SCH (09:16)
[2018-05-12] MEDS: MULTIVIT W/MINERALS 1 TAB TABLET GT SCH (09:16)
[2018-05-12] MEDS: LEVETIRACETAM SOL (5 ML) 100 MG/ML UDC GT SCH ×2 (09:16→20:28)
[2018-05-12] MEDS: PROSTAT (PYXIS) 30 ML UDC GT SCH ×3 (09:16→17:12)
[2018-05-12] MEDS: ASCORBIC ACID 500 MG TABLET GT SCH (09:16)
[2018-05-12] MEDS: CHLORHEXIDINE GLUCONATE 15 ML UDC MM SCH ×2 (09:16→17:12)
[2018-05-12] MEDS: MORPHINE SULFATE SOLN CONCENTRATED 20 MG/ML SL SCH ×2 (09:17→20:28)
[2018-05-12] MEDS: DAKINS QUARTER STRENGTH (0.125%) 480 ML BOTTLE TOP SCH ×2 (09:40→20:28)
[2018-05-12] MEDS: COD LIVER OIL/ZINC OXIDE 120 GM TUBE TP SCH ×2 (09:40→20:28)
[2018-05-12] MEDS: HYDROGEN PEROXIDE 480 ML BOTTLE TP SCH ×2 (09:40→20:28)
[2018-05-12] MEDS: CHOLESTYRAMINE/ASPARTAME 4 G/PKT PACKET GT SCH (12:55)
[2018-05-12 13:00] VITALS: BP 111/58
[2018-05-12 18:00] VITALS: BP 112/70
[2018-05-12 19:45] VITALS: BP 138/60
[2018-05-12] MEDS: GLUCERNA 1.2 1,000 ML BOTTLE GT PRN (21:00)
[2018-05-13] VITALS: BP 106/65
[2018-05-13] MEDS: ALBUTEROL FS 2.5 MG/3 ML VIAL.NEB NEB SCH ×4 (01:45→19:40)
[2018-05-13] MEDS: IPRATROPIUM NEB FS 0.5 MG/2.5 ML AMPUL.NEB IH SCH ×4 (01:45→19:40)
[2018-05-13] MEDS: OMEPRAZOLE 20 MG CAPSULE.DR GT SCH (05:22)
[2018-05-13] MEDS: LEVOTHYROXINE SODIUM 88 MCG TABLET GT SCH (05:22)
[2018-05-13 06:00] VITALS: BP 114/59
[2018-05-13 08:00] VITALS: BP 143/68
[2018-05-13] MEDS: LEVETIRACETAM SOL (5 ML) 100 MG/ML UDC GT SCH ×2 (08:30→21:18)
[2018-05-13] MEDS: ZINC SULFATE 220 MG CAPSULE GT SCH (08:30)
[2018-05-13] MEDS: ASCORBIC ACID 500 MG TABLET GT SCH (08:30)
[2018-05-13] MEDS: CHLORHEXIDINE GLUCONATE 15 ML UDC MM SCH ×2 (08:30→16:52)
[2018-05-13] MEDS: ACIDOPHILUS/BULGARICUS 1 EACH TAB.CHEW GT SCH (08:30)
[2018-05-13] MEDS: PROSTAT (PYXIS) 30 ML UDC GT SCH ×3 (08:30→16:52)
[2018-05-13] MEDS: MULTIVIT W/MINERALS 1 TAB TABLET GT SCH (08:30)
[2018-05-13] MEDS: CARBOXYMETHYLCELLULOSE SODIUM 0.4 ML DROPERETTE EACHEYE SCH (08:30)
[2018-05-13] MEDS: MORPHINE SULFATE SOLN CONCENTRATED 20 MG/ML SL SCH ×2 (08:31→21:18)
[2018-05-13] MEDS: DAKINS QUARTER STRENGTH (0.125%) 480 ML BOTTLE TOP SCH ×2 (08:35→21:18)
[2018-05-13] MEDS: HYDROGEN PEROXIDE 480 ML BOTTLE TP SCH ×2 (08:36→21:18)
[2018-05-13] MEDS: COD LIVER OIL/ZINC OXIDE 120 GM TUBE TP SCH ×2 (08:36→21:18)
[2018-05-13] MEDS: CHOLESTYRAMINE/ASPARTAME 4 G/PKT PACKET GT SCH (12:47)
[2018-05-13 15:22] VITALS: BP 114/69
[2018-05-13 18:41] VITALS: BP 110/68
[2018-05-13 19:52] VITALS: BP 110/58
[2018-05-14 00:14] VITALS: BP 114/62
[2018-05-14] MEDS: ALBUTEROL FS 2.5 MG/3 ML VIAL.NEB NEB SCH ×4 (01:17→19:45)
[2018-05-14] MEDS: IPRATROPIUM NEB FS 0.5 MG/2.5 ML AMPUL.NEB IH SCH ×4 (01:17→19:45)
--- NOTE | 2018-05-14 02:23 | NUR ---
PT RCMONTGOMERY'D ON COOL AEROSOL WITH CHARTED SETTINGS. HHN TX GIVEN WITH NO ADVERSE REACTION NOTED. SX DONE. PT TRACH PATENT AND SECURE. NO RESPIRATORY DISTRESS NOTED AT THIS TIME. AMBU BAG AT BEDSIDE. WILL CONTINUE TO MONITOR. Addendum: 05/14/18 at 0224 by ALEXEY MADRID RT Amended: Links added.
[2018-05-14] MEDS: OMEPRAZOLE 20 MG CAPSULE.DR GT SCH (05:46)
[2018-05-14] MEDS: LEVOTHYROXINE SODIUM 88 MCG TABLET GT SCH (05:46)
[2018-05-14 06:28] VITALS: BP 106/58
[2018-05-14 08:00] VITALS: BP 117/65
[2018-05-14] MEDS: PROSTAT (PYXIS) 30 ML UDC GT SCH ×3 (08:00→16:01)
[2018-05-14] MEDS: ACIDOPHILUS/BULGARICUS 1 EACH TAB.CHEW GT SCH (08:00)
[2018-05-14] MEDS: ASCORBIC ACID 500 MG TABLET GT SCH (08:00)
[2018-05-14] MEDS: ZINC SULFATE 220 MG CAPSULE GT SCH (08:00)
[2018-05-14] MEDS: CARBOXYMETHYLCELLULOSE SODIUM 0.4 ML DROPERETTE EACHEYE SCH (08:00)
[2018-05-14] MEDS: HYDROGEN PEROXIDE 480 ML BOTTLE TP SCH ×2 (08:01→21:24)
[2018-05-14] MEDS: CHLORHEXIDINE GLUCONATE 15 ML UDC MM SCH ×2 (08:01→16:01)
[2018-05-14] MEDS: DAKINS QUARTER STRENGTH (0.125%) 480 ML BOTTLE TOP SCH ×2 (08:02→21:24)
[2018-05-14] MEDS: COD LIVER OIL/ZINC OXIDE 120 GM TUBE TP SCH ×2 (08:02→21:24)
[2018-05-14] MEDS: MULTIVIT W/MINERALS 1 TAB TABLET GT SCH (10:00)
[2018-05-14] MEDS: LEVETIRACETAM SOL (5 ML) 100 MG/ML UDC GT SCH ×2 (10:00→21:24)
[2018-05-14] MEDS: MORPHINE SULFATE SOLN CONCENTRATED 20 MG/ML SL SCH ×2 (10:02→21:24)
[2018-05-14] MEDS: CHOLESTYRAMINE/ASPARTAME 4 G/PKT PACKET GT SCH (11:15)
[2018-05-14] MEDS: ONDANSETRON 4 MG TAB.RAPDIS GT PRN (11:23)
[2018-05-14 12:47] VITALS: BP 117/65
--- NOTE | 2018-05-14 16:00 | NUR ---
SW spoke to resident's mother on the phone communicating upcoming IDT mtg this MondayMay 19 at 12:30. Daughter will be attending over the telephone.
[2018-05-14 18:32] VITALS: BP 117/65
[2018-05-14 20:55] VITALS: BP 117/61
[2018-05-15 00:20] VITALS: BP 110/69
[2018-05-15] MEDS: IPRATROPIUM NEB FS 0.5 MG/2.5 ML AMPUL.NEB IH SCH ×4 (01:19→19:56)
[2018-05-15] MEDS: ALBUTEROL FS 2.5 MG/3 ML VIAL.NEB NEB SCH ×4 (01:19→19:56)
[2018-05-15] MEDS: LEVOTHYROXINE SODIUM 88 MCG TABLET GT SCH (06:01)
[2018-05-15] MEDS: OMEPRAZOLE 20 MG CAPSULE.DR GT SCH (06:01)
[2018-05-15 06:02] VITALS: BP 119/58
[2018-05-15 08:30] VITALS: BP 110/60
[2018-05-15] MEDS: COD LIVER OIL/ZINC OXIDE 120 GM TUBE TP SCH ×2 (09:00→21:56)
[2018-05-15] MEDS: HYDROGEN PEROXIDE 480 ML BOTTLE TP SCH ×2 (09:00→21:56)
[2018-05-15] MEDS: DAKINS QUARTER STRENGTH (0.125%) 480 ML BOTTLE TOP SCH ×2 (09:00→21:56)
[2018-05-15] MEDS: ACIDOPHILUS/BULGARICUS 1 EACH TAB.CHEW GT SCH (09:52)
[2018-05-15] MEDS: MULTIVIT W/MINERALS 1 TAB TABLET GT SCH (09:52)
[2018-05-15] MEDS: PROSTAT (PYXIS) 30 ML UDC GT SCH ×3 (09:52→17:00)
[2018-05-15] MEDS: CARBOXYMETHYLCELLULOSE SODIUM 0.4 ML DROPERETTE EACHEYE SCH (09:52)
[2018-05-15] MEDS: LEVETIRACETAM SOL (5 ML) 100 MG/ML UDC GT SCH ×2 (09:52→21:44)
[2018-05-15] MEDS: CHLORHEXIDINE GLUCONATE 15 ML UDC MM SCH ×2 (09:52→17:00)
[2018-05-15] MEDS: ZINC SULFATE 220 MG CAPSULE GT SCH (09:52)
[2018-05-15] MEDS: ASCORBIC ACID 500 MG TABLET GT SCH (09:52)
[2018-05-15] MEDS: MORPHINE SULFATE SOLN CONCENTRATED 20 MG/ML SL SCH ×2 (09:52→21:55)
[2018-05-15 12:00] VITALS: BP 122/65
[2018-05-15] MEDS: CHOLESTYRAMINE/ASPARTAME 4 G/PKT PACKET GT SCH (12:05)
[2018-05-15] MEDS: GLUCERNA 1.2 1,000 ML BOTTLE GT PRN (15:25)
[2018-05-15 18:17] VITALS: BP 102/57
[2018-05-16] VITALS (7 sets, daily range): BP systolic 100–122; BP diastolic 58–66
[2018-05-16] MEDS: IPRATROPIUM NEB FS 0.5 MG/2.5 ML AMPUL.NEB IH SCH ×4 (01:36→19:33)
[2018-05-16] MEDS: ALBUTEROL FS 2.5 MG/3 ML VIAL.NEB NEB SCH ×4 (01:36→19:33)
[2018-05-16] MEDS: OMEPRAZOLE 20 MG CAPSULE.DR GT SCH (06:26)
[2018-05-16] MEDS: LEVOTHYROXINE SODIUM 88 MCG TABLET GT SCH (06:26)
[2018-05-16] MEDS: PROSTAT (PYXIS) 30 ML UDC GT SCH ×3 (08:47→16:38)
[2018-05-16] MEDS: ACIDOPHILUS/BULGARICUS 1 EACH TAB.CHEW GT SCH (08:47)
[2018-05-16] MEDS: CARBOXYMETHYLCELLULOSE SODIUM 0.4 ML DROPERETTE EACHEYE SCH (08:47)
[2018-05-16] MEDS: LEVETIRACETAM SOL (5 ML) 100 MG/ML UDC GT SCH ×2 (08:47→21:19)
[2018-05-16] MEDS: CHLORHEXIDINE GLUCONATE 15 ML UDC MM SCH ×2 (08:48→16:38)
[2018-05-16] MEDS: ASCORBIC ACID 500 MG TABLET GT SCH (08:48)
[2018-05-16] MEDS: MULTIVIT W/MINERALS 1 TAB TABLET GT SCH (08:48)
[2018-05-16] MEDS: MORPHINE SULFATE SOLN CONCENTRATED 20 MG/ML SL SCH ×2 (08:48→21:19)
[2018-05-16] MEDS: ZINC SULFATE 220 MG CAPSULE GT SCH (08:48)
[2018-05-16] MEDS: HYDROGEN PEROXIDE 480 ML BOTTLE TP SCH ×2 (09:00→21:57)
[2018-05-16] MEDS: COD LIVER OIL/ZINC OXIDE 120 GM TUBE TP SCH ×2 (09:00→21:57)
[2018-05-16] MEDS: DAKINS QUARTER STRENGTH (0.125%) 480 ML BOTTLE TOP SCH ×2 (09:00→21:57)
--- NOTE | 2018-05-16 11:40 | NUR ---
RT Monthly trach change done per protocol with new shiley 6 trach. Trach change done with no complications. Minimal bleeding at trach site, with no redness. Equal bilateral breathe sounds and chest rise noted. Airway is clear and patent. Pt placed back on cool aerosol. No respiratory distress noted at this time, will continue to monitor. Addendum: 05/16/18 at 1329 by LIDYA POPE RT Amended: Links added.
[2018-05-16] MEDS: CHOLESTYRAMINE/ASPARTAME 4 G/PKT PACKET GT SCH (12:19)
[2018-05-16] MEDS: GLUCERNA 1.2 1,000 ML BOTTLE GT PRN (20:45)
[2018-05-17 00:09] VITALS: BP 115/70
[2018-05-17] MEDS: ALBUTEROL FS 2.5 MG/3 ML VIAL.NEB NEB SCH ×4 (00:45→19:49)
[2018-05-17] MEDS: IPRATROPIUM NEB FS 0.5 MG/2.5 ML AMPUL.NEB IH SCH ×4 (00:45→19:49)
[2018-05-17] MEDS: OMEPRAZOLE 20 MG CAPSULE.DR GT SCH (05:38)
[2018-05-17] MEDS: LEVOTHYROXINE SODIUM 88 MCG TABLET GT SCH (05:38)
[2018-05-17 06:06] VITALS: BP 118/62
[2018-05-17] MEDS: BISACODYL SUPP (10 MG) 10 MG/SUPP.RECT SUPP.RECT RC PRN (07:08)
[2018-05-17 07:22] VITALS: BP 105/57
[2018-05-17] MEDS: ACIDOPHILUS/BULGARICUS 1 EACH TAB.CHEW GT SCH (09:05)
[2018-05-17] MEDS: ZINC SULFATE 220 MG CAPSULE GT SCH (09:05)
[2018-05-17] MEDS: CARBOXYMETHYLCELLULOSE SODIUM 0.4 ML DROPERETTE EACHEYE SCH (09:05)
[2018-05-17] MEDS: MORPHINE SULFATE SOLN CONCENTRATED 20 MG/ML SL SCH ×2 (09:05→20:38)
[2018-05-17] MEDS: CHLORHEXIDINE GLUCONATE 15 ML UDC MM SCH ×2 (09:05→17:00)
[2018-05-17] MEDS: ASCORBIC ACID 500 MG TABLET GT SCH (09:05)
[2018-05-17] MEDS: LEVETIRACETAM SOL (5 ML) 100 MG/ML UDC GT SCH ×2 (09:05→20:38)
[2018-05-17] MEDS: MULTIVIT W/MINERALS 1 TAB TABLET GT SCH (09:05)
[2018-05-17] MEDS: PROSTAT (PYXIS) 30 ML UDC GT SCH ×3 (09:05→17:00)
[2018-05-17] MEDS: DAKINS QUARTER STRENGTH (0.125%) 480 ML BOTTLE TOP SCH ×2 (09:35→20:38)
[2018-05-17] MEDS: COD LIVER OIL/ZINC OXIDE 120 GM TUBE TP SCH ×2 (09:35→20:38)
[2018-05-17] MEDS: HYDROGEN PEROXIDE 480 ML BOTTLE TP SCH ×2 (09:35→20:38)
[2018-05-17] MEDS: CHOLESTYRAMINE/ASPARTAME 4 G/PKT PACKET GT SCH (11:36)
[2018-05-17 12:00] VITALS: BP 120/64
[2018-05-17 18:19] VITALS: BP 127/55
[2018-05-17 20:28] VITALS: BP 122/58
[2018-05-18 00:28] VITALS: BP 119/63
[2018-05-18] MEDS: ALBUTEROL FS 2.5 MG/3 ML VIAL.NEB NEB SCH ×4 (02:01→19:37)
[2018-05-18] MEDS: IPRATROPIUM NEB FS 0.5 MG/2.5 ML AMPUL.NEB IH SCH ×4 (02:01→19:37)
[2018-05-18] MEDS: LEVOTHYROXINE SODIUM 88 MCG TABLET GT SCH (05:22)
[2018-05-18] MEDS: GLUCERNA 1.2 1,000 ML BOTTLE GT PRN (05:22)
[2018-05-18] MEDS: OMEPRAZOLE 20 MG CAPSULE.DR GT SCH (05:22)
[2018-05-18 06:16] VITALS: BP 115/56
[2018-05-18 07:17] VITALS: BP 112/64
[2018-05-18] MEDS: COD LIVER OIL/ZINC OXIDE 120 GM TUBE TP SCH ×2 (09:00→20:18)
[2018-05-18] MEDS: DAKINS QUARTER STRENGTH (0.125%) 480 ML BOTTLE TOP SCH ×2 (09:00→20:18)
[2018-05-18] MEDS: HYDROGEN PEROXIDE 480 ML BOTTLE TP SCH ×2 (09:00→20:18)
[2018-05-18] MEDS: MULTIVIT W/MINERALS 1 TAB TABLET GT SCH (09:48)
[2018-05-18] MEDS: ASCORBIC ACID 500 MG TABLET GT SCH (09:48)
[2018-05-18] MEDS: ACIDOPHILUS/BULGARICUS 1 EACH TAB.CHEW GT SCH (09:48)
[2018-05-18] MEDS: PROSTAT (PYXIS) 30 ML UDC GT SCH ×3 (09:48→16:26)
[2018-05-18] MEDS: CHLORHEXIDINE GLUCONATE 15 ML UDC MM SCH ×2 (09:48→16:26)
[2018-05-18] MEDS: ZINC SULFATE 220 MG CAPSULE GT SCH (09:48)
[2018-05-18] MEDS: LEVETIRACETAM SOL (5 ML) 100 MG/ML UDC GT SCH ×2 (09:48→20:18)
[2018-05-18] MEDS: CARBOXYMETHYLCELLULOSE SODIUM 0.4 ML DROPERETTE EACHEYE SCH (09:48)
[2018-05-18] MEDS: MORPHINE SULFATE SOLN CONCENTRATED 20 MG/ML SL SCH ×2 (09:48→20:18)
[2018-05-18 12:00] VITALS: BP 102/54
[2018-05-18] MEDS: CHOLESTYRAMINE/ASPARTAME 4 G/PKT PACKET GT SCH (12:49)
--- NOTE | 2018-05-18 14:25 | NUR ---
INTERDISCIPLINARY TEAM CONFERENCE (IDT) was held today. Resident's daughter Reyna Teresa could not be contacted over the phone Dr. Monet and the interdisciplinary team reviewed the current plan of care in detail. Orders as well as treatment and medications were reviewed. No new orders were given.
[2018-05-18 18:43] VITALS: BP 120/62
[2018-05-18 19:37] VITALS: BP 110/45
[2018-05-19] MEDS: ALBUTEROL FS 2.5 MG/3 ML VIAL.NEB NEB SCH ×4 (01:24→19:34)
[2018-05-19] MEDS: IPRATROPIUM NEB FS 0.5 MG/2.5 ML AMPUL.NEB IH SCH ×4 (01:24→19:34)
[2018-05-19 01:45] VITALS: BP 117/70
[2018-05-19] MEDS: OMEPRAZOLE 20 MG CAPSULE.DR GT SCH (05:38)
[2018-05-19] MEDS: LEVOTHYROXINE SODIUM 88 MCG TABLET GT SCH (05:38)
[2018-05-19 06:02] VITALS: BP 120/58
[2018-05-19 07:46] VITALS: BP 115/59
[2018-05-19] MEDS: LEVETIRACETAM SOL (5 ML) 100 MG/ML UDC GT SCH ×2 (09:36→20:24)
[2018-05-19] MEDS: CARBOXYMETHYLCELLULOSE SODIUM 0.4 ML DROPERETTE EACHEYE SCH (09:36)
[2018-05-19] MEDS: ACIDOPHILUS/BULGARICUS 1 EACH TAB.CHEW GT SCH (09:36)
[2018-05-19] MEDS: MULTIVIT W/MINERALS 1 TAB TABLET GT SCH (09:37)
[2018-05-19] MEDS: CHLORHEXIDINE GLUCONATE 15 ML UDC MM SCH ×2 (09:37→16:45)
[2018-05-19] MEDS: ASCORBIC ACID 500 MG TABLET GT SCH (09:37)
[2018-05-19] MEDS: ZINC SULFATE 220 MG CAPSULE GT SCH (09:37)
[2018-05-19] MEDS: MORPHINE SULFATE SOLN CONCENTRATED 20 MG/ML SL SCH ×2 (09:37→20:24)
[2018-05-19] MEDS: PROSTAT (PYXIS) 30 ML UDC GT SCH ×3 (09:37→16:45)
[2018-05-19] MEDS: HYDROGEN PEROXIDE 480 ML BOTTLE TP SCH ×2 (10:07→20:24)
[2018-05-19] MEDS: DAKINS QUARTER STRENGTH (0.125%) 480 ML BOTTLE TOP SCH ×2 (10:07→20:24)
[2018-05-19] MEDS: COD LIVER OIL/ZINC OXIDE 120 GM TUBE TP SCH ×2 (10:07→20:24)
[2018-05-19] MEDS: CHOLESTYRAMINE/ASPARTAME 4 G/PKT PACKET GT SCH (11:45)
[2018-05-19] MEDS: GLUCERNA 1.2 1,000 ML BOTTLE GT PRN (11:45)
[2018-05-19 12:00] VITALS: BP_SYST 123; BP_SYST 135; BP_DIAS 62; BP_DIAS 76
[2018-05-19] MEDS: ONDANSETRON 4 MG TAB.RAPDIS GT PRN (14:52)
[2018-05-19 18:00] VITALS: BP_SYST 110; BP_SYST 150; BP_DIAS 63; BP_DIAS 88
[2018-05-19 20:03] VITALS: BP 101/45
[2018-05-20 00:17] VITALS: BP 100/53
[2018-05-20] MEDS: ALBUTEROL FS 2.5 MG/3 ML VIAL.NEB NEB SCH ×4 (01:15→19:44)
[2018-05-20] MEDS: IPRATROPIUM NEB FS 0.5 MG/2.5 ML AMPUL.NEB IH SCH ×4 (01:15→19:44)
[2018-05-20] MEDS: OMEPRAZOLE 20 MG CAPSULE.DR GT SCH (05:25)
[2018-05-20] MEDS: LEVOTHYROXINE SODIUM 88 MCG TABLET GT SCH (05:25)
[2018-05-20 06:12] VITALS: BP 108/56
[2018-05-20 07:19] VITALS: BP 116/56
[2018-05-20] MEDS: LEVETIRACETAM SOL (5 ML) 100 MG/ML UDC GT SCH ×2 (09:22→20:43)
[2018-05-20] MEDS: CHLORHEXIDINE GLUCONATE 15 ML UDC MM SCH ×2 (09:22→17:00)
[2018-05-20] MEDS: MORPHINE SULFATE SOLN CONCENTRATED 20 MG/ML SL SCH ×2 (09:23→20:43)
[2018-05-20] MEDS: MULTIVIT W/MINERALS 1 TAB TABLET GT SCH (09:23)
[2018-05-20] MEDS: PROSTAT (PYXIS) 30 ML UDC GT SCH ×3 (09:25→17:00)
[2018-05-20] MEDS: ACIDOPHILUS/BULGARICUS 1 EACH TAB.CHEW GT SCH (09:25)
[2018-05-20] MEDS: ASCORBIC ACID 500 MG TABLET GT SCH (09:26)
[2018-05-20] MEDS: ZINC SULFATE 220 MG CAPSULE GT SCH (09:27)
[2018-05-20] MEDS: COD LIVER OIL/ZINC OXIDE 120 GM TUBE TP SCH ×2 (09:28→20:25)
[2018-05-20] MEDS: DAKINS QUARTER STRENGTH (0.125%) 480 ML BOTTLE TOP SCH ×2 (09:28→20:25)
[2018-05-20] MEDS: CARBOXYMETHYLCELLULOSE SODIUM 0.4 ML DROPERETTE EACHEYE SCH (09:29)
[2018-05-20] MEDS: HYDROGEN PEROXIDE 480 ML BOTTLE TP SCH ×2 (09:29→20:25)
[2018-05-20 12:00] VITALS: BP 116/56
[2018-05-20] MEDS: CHOLESTYRAMINE/ASPARTAME 4 G/PKT PACKET GT SCH (12:46)
[2018-05-20 18:00] VITALS: BP 119/61
[2018-05-20 19:40] VITALS: BP 137/63
[2018-05-21] VITALS: BP 107/65
[2018-05-21] MEDS: IPRATROPIUM NEB FS 0.5 MG/2.5 ML AMPUL.NEB IH SCH ×4 (00:43→19:53)
[2018-05-21] MEDS: ALBUTEROL FS 2.5 MG/3 ML VIAL.NEB NEB SCH ×4 (00:43→19:53)
[2018-05-21] MEDS: LEVOTHYROXINE SODIUM 88 MCG TABLET GT SCH (05:16)
[2018-05-21] MEDS: OMEPRAZOLE 20 MG CAPSULE.DR GT SCH (05:16)
[2018-05-21 06:00] VITALS: BP 113/70
[2018-05-21 07:36] VITALS: BP 114/57
[2018-05-21] MEDS: ACIDOPHILUS/BULGARICUS 1 EACH TAB.CHEW GT SCH (08:26)
[2018-05-21] MEDS: PROSTAT (PYXIS) 30 ML UDC GT SCH ×3 (08:26→16:28)
[2018-05-21] MEDS: LEVETIRACETAM SOL (5 ML) 100 MG/ML UDC GT SCH ×2 (08:26→20:21)
[2018-05-21] MEDS: CARBOXYMETHYLCELLULOSE SODIUM 0.4 ML DROPERETTE EACHEYE SCH (08:26)
[2018-05-21] MEDS: ASCORBIC ACID 500 MG TABLET GT SCH (08:27)
[2018-05-21] MEDS: ZINC SULFATE 220 MG CAPSULE GT SCH (08:27)
[2018-05-21] MEDS: MULTIVIT W/MINERALS 1 TAB TABLET GT SCH (08:27)
[2018-05-21] MEDS: MORPHINE SULFATE SOLN CONCENTRATED 20 MG/ML SL SCH ×2 (08:28→20:22)
[2018-05-21] MEDS: CHLORHEXIDINE GLUCONATE 15 ML UDC MM SCH ×2 (08:28→16:28)
[2018-05-21] MEDS: DAKINS QUARTER STRENGTH (0.125%) 480 ML BOTTLE TOP SCH ×2 (09:00→21:27)
[2018-05-21] MEDS: COD LIVER OIL/ZINC OXIDE 120 GM TUBE TP SCH ×2 (09:00→21:27)
[2018-05-21] MEDS: HYDROGEN PEROXIDE 480 ML BOTTLE TP SCH ×2 (09:00→21:27)
[2018-05-21 12:00] VITALS: BP 110/54
[2018-05-21] MEDS: CHOLESTYRAMINE/ASPARTAME 4 G/PKT PACKET GT SCH (12:00)
[2018-05-21 18:00] VITALS: BP 107/56
[2018-05-21 19:30] VITALS: BP 131/61
[2018-05-22] VITALS: BP 106/58
[2018-05-22] MEDS: IPRATROPIUM NEB FS 0.5 MG/2.5 ML AMPUL.NEB IH SCH ×4 (01:27→20:20)
[2018-05-22] MEDS: ALBUTEROL FS 2.5 MG/3 ML VIAL.NEB NEB SCH ×4 (01:27→20:20)
[2018-05-22] MEDS: GLUCERNA 1.2 1,000 ML BOTTLE GT PRN (05:11)
[2018-05-22] MEDS: OMEPRAZOLE 20 MG CAPSULE.DR GT SCH (05:11)
[2018-05-22] MEDS: LEVOTHYROXINE SODIUM 88 MCG TABLET GT SCH (05:11)
[2018-05-22 06:08] VITALS: BP 110/60
[2018-05-22 07:43] VITALS: BP 114/51
[2018-05-22] MEDS: COD LIVER OIL/ZINC OXIDE 120 GM TUBE TP SCH ×2 (09:00→21:06)
[2018-05-22] MEDS: HYDROGEN PEROXIDE 480 ML BOTTLE TP SCH ×2 (09:00→21:06)
[2018-05-22] MEDS: DAKINS QUARTER STRENGTH (0.125%) 480 ML BOTTLE TOP SCH ×2 (09:00→21:06)
[2018-05-22] MEDS: ASCORBIC ACID 500 MG TABLET GT SCH (09:54)
[2018-05-22] MEDS: ZINC SULFATE 220 MG CAPSULE GT SCH (09:54)
[2018-05-22] MEDS: PROSTAT (PYXIS) 30 ML UDC GT SCH ×3 (09:54→17:00)
[2018-05-22] MEDS: ACIDOPHILUS/BULGARICUS 1 EACH TAB.CHEW GT SCH (09:54)
[2018-05-22] MEDS: CHLORHEXIDINE GLUCONATE 15 ML UDC MM SCH ×2 (09:54→17:00)
[2018-05-22] MEDS: LEVETIRACETAM SOL (5 ML) 100 MG/ML UDC GT SCH ×2 (09:54→20:26)
[2018-05-22] MEDS: CARBOXYMETHYLCELLULOSE SODIUM 0.4 ML DROPERETTE EACHEYE SCH (09:54)
[2018-05-22] MEDS: MORPHINE SULFATE SOLN CONCENTRATED 20 MG/ML SL SCH ×2 (09:54→20:26)
[2018-05-22] MEDS: MULTIVIT W/MINERALS 1 TAB TABLET GT SCH (09:54)
[2018-05-22 12:00] VITALS: BP 135/70
[2018-05-22] MEDS: CHOLESTYRAMINE/ASPARTAME 4 G/PKT PACKET GT SCH (12:25)
[2018-05-22 18:46] VITALS: BP 115/55
[2018-05-22 19:41] VITALS: BP 111/55
[2018-05-23 00:28] VITALS: BP 111/56
[2018-05-23] MEDS: ALBUTEROL FS 2.5 MG/3 ML VIAL.NEB NEB SCH ×4 (01:07→19:49)
[2018-05-23] MEDS: IPRATROPIUM NEB FS 0.5 MG/2.5 ML AMPUL.NEB IH SCH ×4 (01:07→19:49)
[2018-05-23] MEDS: LEVOTHYROXINE SODIUM 88 MCG TABLET GT SCH (05:16)
[2018-05-23] MEDS: OMEPRAZOLE 20 MG CAPSULE.DR GT SCH (05:16)
[2018-05-23] MEDS: GLUCERNA 1.2 1,000 ML BOTTLE GT PRN (05:17)
[2018-05-23] MEDS: ONDANSETRON 4 MG TAB.RAPDIS GT PRN (05:55)
[2018-05-23 06:14] VITALS: BP 114/60
[2018-05-23 07:53] VITALS: BP 121/57
[2018-05-23] MEDS: MORPHINE SULFATE SOLN CONCENTRATED 20 MG/ML SL SCH ×2 (08:52→20:16)
[2018-05-23] MEDS: CARBOXYMETHYLCELLULOSE SODIUM 0.4 ML DROPERETTE EACHEYE SCH (08:52)
[2018-05-23] MEDS: LEVETIRACETAM SOL (5 ML) 100 MG/ML UDC GT SCH ×2 (08:52→20:16)
[2018-05-23] MEDS: PROSTAT (PYXIS) 30 ML UDC GT SCH ×3 (08:52→16:49)
[2018-05-23] MEDS: HYDROGEN PEROXIDE 480 ML BOTTLE TP SCH ×2 (08:52→20:59)
[2018-05-23] MEDS: DAKINS QUARTER STRENGTH (0.125%) 480 ML BOTTLE TOP SCH ×2 (08:52→20:59)
[2018-05-23] MEDS: ZINC SULFATE 220 MG CAPSULE GT SCH (08:52)
[2018-05-23] MEDS: ASCORBIC ACID 500 MG TABLET GT SCH (08:52)
[2018-05-23] MEDS: CHLORHEXIDINE GLUCONATE 15 ML UDC MM SCH ×2 (08:52→16:49)
[2018-05-23] MEDS: MULTIVIT W/MINERALS 1 TAB TABLET GT SCH (08:52)
[2018-05-23] MEDS: ACIDOPHILUS/BULGARICUS 1 EACH TAB.CHEW GT SCH (08:52)
[2018-05-23] MEDS: COD LIVER OIL/ZINC OXIDE 120 GM TUBE TP SCH ×2 (08:52→20:59)
[2018-05-23] MEDS: CHOLESTYRAMINE/ASPARTAME 4 G/PKT PACKET GT SCH (12:00)
[2018-05-23 15:00] VITALS: BP 121/57
[2018-05-23 18:43] VITALS: BP 110/60
[2018-05-23 19:51] VITALS: BP 121/58
[2018-05-24 00:23] VITALS: BP 111/62
[2018-05-24] MEDS: ALBUTEROL FS 2.5 MG/3 ML VIAL.NEB NEB SCH ×4 (00:51→20:26)
[2018-05-24] MEDS: IPRATROPIUM NEB FS 0.5 MG/2.5 ML AMPUL.NEB IH SCH ×4 (00:51→20:26)
[2018-05-24] MEDS: LEVOTHYROXINE SODIUM 88 MCG TABLET GT SCH (06:47)
[2018-05-24] MEDS: OMEPRAZOLE 20 MG CAPSULE.DR GT SCH (06:47)
[2018-05-24 06:55] VITALS: BP 116/58
[2018-05-24 07:28] VITALS: BP 111/54
[2018-05-24] MEDS: LEVETIRACETAM SOL (5 ML) 100 MG/ML UDC GT SCH ×2 (08:53→20:24)
[2018-05-24] MEDS: MORPHINE SULFATE SOLN CONCENTRATED 20 MG/ML SL SCH ×2 (08:53→20:24)
[2018-05-24] MEDS: MULTIVIT W/MINERALS 1 TAB TABLET GT SCH (08:53)
[2018-05-24] MEDS: PROSTAT (PYXIS) 30 ML UDC GT SCH ×3 (08:53→16:14)
[2018-05-24] MEDS: CARBOXYMETHYLCELLULOSE SODIUM 0.4 ML DROPERETTE EACHEYE SCH (08:53)
[2018-05-24] MEDS: ZINC SULFATE 220 MG CAPSULE GT SCH (08:53)
[2018-05-24] MEDS: ASCORBIC ACID 500 MG TABLET GT SCH (08:53)
[2018-05-24] MEDS: CHLORHEXIDINE GLUCONATE 15 ML UDC MM SCH ×2 (08:53→16:14)
[2018-05-24] MEDS: ACIDOPHILUS/BULGARICUS 1 EACH TAB.CHEW GT SCH (08:53)
[2018-05-24] MEDS: HYDROGEN PEROXIDE 480 ML BOTTLE TP SCH ×2 (08:54→20:24)
[2018-05-24] MEDS: DAKINS QUARTER STRENGTH (0.125%) 480 ML BOTTLE TOP SCH (08:54)
[2018-05-24] MEDS: COD LIVER OIL/ZINC OXIDE 120 GM TUBE TP SCH ×2 (08:54→20:24)
[2018-05-24] MEDS: CHOLESTYRAMINE/ASPARTAME 4 G/PKT PACKET GT SCH (12:00)
--- NOTE | 2018-05-24 15:00 | NUR ---
Seen and examined by Becca Smith NP NNO given at this time.
[2018-05-24 16:01] VITALS: BP 111/54
[2018-05-24 18:33] VITALS: BP 122/65
[2018-05-24 20:32] VITALS: BP 108/71
--- NOTE | 2018-05-24 20:48 | NUR ---
Noted pt with approx: 50 cc emesis- right after suctioned by Rt- Aspiration precautions observed, GTF off, kept HOB elevated @ 35 degrees, No sob noted, trach care rendered , PRN Zofran for emesis given via GT as ordered, notified site leasing agent, cont to monitor pt- and monitor s/sx of aspiration- precautions observed.
[2018-05-24] MEDS: ONDANSETRON 4 MG TAB.RAPDIS GT PRN (20:51)
[2018-05-25 00:01] VITALS: BP 100/52
[2018-05-25] MEDS: IPRATROPIUM NEB FS 0.5 MG/2.5 ML AMPUL.NEB IH SCH ×4 (01:48→19:41)
[2018-05-25] MEDS: ALBUTEROL FS 2.5 MG/3 ML VIAL.NEB NEB SCH ×4 (01:48→19:41)
[2018-05-25] MEDS: LEVOTHYROXINE SODIUM 88 MCG TABLET GT SCH (05:12)
[2018-05-25] MEDS: OMEPRAZOLE 20 MG CAPSULE.DR GT SCH (05:12)
[2018-05-25 06:07] VITALS: BP 104/67
--- NOTE | 2018-05-25 06:56 | NUR ---
No more emesis noted- pt slept comfortably last night, remains afebrile- no s/sx of aspiration noted, no sob. Pt completed and tolerated am care.Safety and comfort noted. Endorse care to am shift.
[2018-05-25 07:53] VITALS: BP 105/65
[2018-05-25] MEDS: LEVETIRACETAM SOL (5 ML) 100 MG/ML UDC GT SCH ×2 (09:47→20:58)
[2018-05-25] MEDS: CARBOXYMETHYLCELLULOSE SODIUM 0.4 ML DROPERETTE EACHEYE SCH (09:47)
[2018-05-25] MEDS: COD LIVER OIL/ZINC OXIDE 120 GM TUBE TP SCH ×2 (09:47→20:59)
[2018-05-25] MEDS: PROSTAT (PYXIS) 30 ML UDC GT SCH ×3 (09:47→17:00)
[2018-05-25] MEDS: CHLORHEXIDINE GLUCONATE 15 ML UDC MM SCH ×2 (09:47→17:00)
[2018-05-25] MEDS: ZINC SULFATE 220 MG CAPSULE GT SCH (09:47)
[2018-05-25] MEDS: MULTIVIT W/MINERALS 1 TAB TABLET GT SCH (09:47)
[2018-05-25] MEDS: ACIDOPHILUS/BULGARICUS 1 EACH TAB.CHEW GT SCH (09:47)
[2018-05-25] MEDS: ASCORBIC ACID 500 MG TABLET GT SCH (09:47)
[2018-05-25] MEDS: MORPHINE SULFATE SOLN CONCENTRATED 20 MG/ML SL SCH ×2 (09:47→20:58)
[2018-05-25] MEDS: HYDROGEN PEROXIDE 480 ML BOTTLE TP SCH ×2 (09:47→20:59)
[2018-05-25] MEDS: CHOLESTYRAMINE/ASPARTAME 4 G/PKT PACKET GT SCH (12:00)
--- NOTE | 2018-05-25 16:26 | NUR ---
Seen and examined by Dr. Ramirez, NNO given.
[2018-05-25 18:31] VITALS: BP 103/65
[2018-05-25 19:45] VITALS: BP 107/59
[2018-05-26] MEDS: ALBUTEROL FS 2.5 MG/3 ML VIAL.NEB NEB SCH ×4 (01:36→19:32)
[2018-05-26] MEDS: IPRATROPIUM NEB FS 0.5 MG/2.5 ML AMPUL.NEB IH SCH ×4 (01:36→19:32)
[2018-05-26 04:19] VITALS: BP 114/55
[2018-05-26] MEDS: LEVOTHYROXINE SODIUM 88 MCG TABLET GT SCH (05:08)
[2018-05-26] MEDS: OMEPRAZOLE 20 MG CAPSULE.DR GT SCH (05:08)
[2018-05-26] MEDS: BISACODYL SUPP (10 MG) 10 MG/SUPP.RECT SUPP.RECT RC PRN (05:09)
[2018-05-26 06:25] VITALS: BP 109/77
[2018-05-26 08:02] VITALS: BP 104/71
[2018-05-26] MEDS: COD LIVER OIL/ZINC OXIDE 120 GM TUBE TP SCH ×2 (09:00→20:41)
[2018-05-26] MEDS: ZINC SULFATE 220 MG CAPSULE GT SCH (09:00)
[2018-05-26] MEDS: ASCORBIC ACID 500 MG TABLET GT SCH (09:00)
[2018-05-26] MEDS: LEVETIRACETAM SOL (5 ML) 100 MG/ML UDC GT SCH ×2 (09:00→20:40)
[2018-05-26] MEDS: PROSTAT (PYXIS) 30 ML UDC GT SCH ×3 (09:00→17:21)
[2018-05-26] MEDS: ACIDOPHILUS/BULGARICUS 1 EACH TAB.CHEW GT SCH (09:00)
[2018-05-26] MEDS: HYDROGEN PEROXIDE 480 ML BOTTLE TP SCH ×2 (09:00→20:41)
[2018-05-26] MEDS: MULTIVIT W/MINERALS 1 TAB TABLET GT SCH (09:00)
[2018-05-26] MEDS: CARBOXYMETHYLCELLULOSE SODIUM 0.4 ML DROPERETTE EACHEYE SCH (09:00)
[2018-05-26] MEDS: MORPHINE SULFATE SOLN CONCENTRATED 20 MG/ML SL SCH ×2 (09:00→20:41)
[2018-05-26] MEDS: CHLORHEXIDINE GLUCONATE 15 ML UDC MM SCH ×2 (09:00→17:21)
[2018-05-26 12:00] VITALS: BP 110/58
[2018-05-26] MEDS: CHOLESTYRAMINE/ASPARTAME 4 G/PKT PACKET GT SCH (12:08)
[2018-05-26] MEDS: GLUCERNA 1.2 1,000 ML BOTTLE GT PRN (16:21)
[2018-05-26 18:05] VITALS: BP 116/62
[2018-05-26 19:43] VITALS: BP 104/56
--- NOTE | 2018-05-27 00:44 | NUR ---
RT NOTE PATIENT WAS RECEIVED ON COOL AEROSOL. AMBU BAG/BACK UP TRACH @ BEDSIDE. Q6 BREATHING TX GIVEN PER MD ORDERS WITH NO ADVERSE REACTION NOTED. SUCTION DONE PRN. TRACH PATENT AND SECURED. NO RESPIRATORY DISTRESS NOTED AT THIS TIME. WILL CONTINUE TO MONITOR PATIENT Addendum: 05/27/18 at 0044 by DAKSHA SHARP RT Amended: Links added.
[2018-05-27 00:48] VITALS: BP 116/62
[2018-05-27] MEDS: IPRATROPIUM NEB FS 0.5 MG/2.5 ML AMPUL.NEB IH SCH ×4 (01:12→18:55)
[2018-05-27] MEDS: ALBUTEROL FS 2.5 MG/3 ML VIAL.NEB NEB SCH ×4 (01:12→18:55)
[2018-05-27] MEDS: LEVOTHYROXINE SODIUM 88 MCG TABLET GT SCH (05:12)
[2018-05-27] MEDS: OMEPRAZOLE 20 MG CAPSULE.DR GT SCH (05:12)
[2018-05-27 06:01] VITALS: BP 105/55
[2018-05-27 07:26] VITALS: BP 103/69
[2018-05-27] MEDS: CARBOXYMETHYLCELLULOSE SODIUM 0.4 ML DROPERETTE EACHEYE SCH (08:27)
[2018-05-27] MEDS: LEVETIRACETAM SOL (5 ML) 100 MG/ML UDC GT SCH ×2 (08:28→20:12)
[2018-05-27] MEDS: ACIDOPHILUS/BULGARICUS 1 EACH TAB.CHEW GT SCH (08:28)
[2018-05-27] MEDS: MULTIVIT W/MINERALS 1 TAB TABLET GT SCH (08:29)
[2018-05-27] MEDS: ZINC SULFATE 220 MG CAPSULE GT SCH (08:29)
[2018-05-27] MEDS: PROSTAT (PYXIS) 30 ML UDC GT SCH ×3 (08:29→17:01)
[2018-05-27] MEDS: ASCORBIC ACID 500 MG TABLET GT SCH (08:29)
[2018-05-27] MEDS: CHLORHEXIDINE GLUCONATE 15 ML UDC MM SCH ×2 (08:29→17:01)
[2018-05-27] MEDS: MORPHINE SULFATE SOLN CONCENTRATED 20 MG/ML SL SCH ×2 (08:29→20:12)
[2018-05-27] MEDS: HYDROGEN PEROXIDE 480 ML BOTTLE TP SCH ×2 (09:00→20:12)
[2018-05-27] MEDS: COD LIVER OIL/ZINC OXIDE 120 GM TUBE TP SCH ×2 (09:00→20:12)
[2018-05-27 12:00] VITALS: BP 109/66
[2018-05-27] MEDS: CHOLESTYRAMINE/ASPARTAME 4 G/PKT PACKET GT SCH (12:00)
[2018-05-27 18:00] VITALS: BP 111/62
[2018-05-27] MEDS: GLUCERNA 1.2 1,000 ML BOTTLE GT PRN (18:45)
[2018-05-27 19:53] VITALS: BP 111/64
[2018-05-27] MEDS: DAKINS QUARTER STRENGTH (0.125%) 480 ML BOTTLE TOP SCH (20:12)
[2018-05-28] VITALS: BP 111/64
[2018-05-28] MEDS: IPRATROPIUM NEB FS 0.5 MG/2.5 ML AMPUL.NEB IH SCH ×4 (00:44→19:57)
[2018-05-28] MEDS: ALBUTEROL FS 2.5 MG/3 ML VIAL.NEB NEB SCH ×4 (00:44→19:57)
[2018-05-28] MEDS: LEVOTHYROXINE SODIUM 88 MCG TABLET GT SCH (05:02)
[2018-05-28] MEDS: OMEPRAZOLE 20 MG CAPSULE.DR GT SCH (05:02)
[2018-05-28 06:00] VITALS: BP 117/66
[2018-05-28 07:32] VITALS: BP 122/69
[2018-05-28] MEDS: HYDROGEN PEROXIDE 480 ML BOTTLE TP SCH ×2 (09:00→21:14)
[2018-05-28] MEDS: COD LIVER OIL/ZINC OXIDE 120 GM TUBE TP SCH ×2 (09:00→21:14)
[2018-05-28] MEDS: MORPHINE SULFATE SOLN CONCENTRATED 20 MG/ML SL SCH ×2 (09:41→21:14)
[2018-05-28] MEDS: CHLORHEXIDINE GLUCONATE 15 ML UDC MM SCH ×2 (09:41→17:00)
[2018-05-28] MEDS: ACIDOPHILUS/BULGARICUS 1 EACH TAB.CHEW GT SCH (09:41)
[2018-05-28] MEDS: ASCORBIC ACID 500 MG TABLET GT SCH (09:41)
[2018-05-28] MEDS: ZINC SULFATE 220 MG CAPSULE GT SCH (09:41)
[2018-05-28] MEDS: LEVETIRACETAM SOL (5 ML) 100 MG/ML UDC GT SCH ×2 (09:41→21:14)
[2018-05-28] MEDS: PROSTAT (PYXIS) 30 ML UDC GT SCH ×3 (09:41→17:00)
[2018-05-28] MEDS: CARBOXYMETHYLCELLULOSE SODIUM 0.4 ML DROPERETTE EACHEYE SCH (09:41)
[2018-05-28] MEDS: MULTIVIT W/MINERALS 1 TAB TABLET GT SCH (09:41)
[2018-05-28] MEDS: DAKINS QUARTER STRENGTH (0.125%) 480 ML BOTTLE TOP SCH ×2 (10:00→21:14)
[2018-05-28] MEDS: ONDANSETRON 4 MG TAB.RAPDIS GT PRN (11:06)
[2018-05-28 12:00] VITALS: BP 125/70
[2018-05-28] MEDS: CHOLESTYRAMINE/ASPARTAME 4 G/PKT PACKET GT SCH (12:00)
--- NOTE | 2018-05-28 14:35 | NUR ---
Pt. was seeing by the podiatry Dr. Blum on 05/25 and an appointment was made for 06/15.
--- NOTE | 2018-05-28 14:36 | NUR ---
Pt. was seeing by the podiatry Dr. Blum on 05/25 and an appointment was made for 06/15.
[2018-05-28 18:00] VITALS: BP 118/74
[2018-05-28 19:52] VITALS: BP 135/69
[2018-05-28] MEDS: GLUCERNA 1.2 1,000 ML BOTTLE GT PRN (22:57)
[2018-05-29] VITALS (7 sets, daily range): BP systolic 105–126; BP diastolic 53–76
[2018-05-29] MEDS: IPRATROPIUM NEB FS 0.5 MG/2.5 ML AMPUL.NEB IH SCH ×4 (01:46→19:00)
[2018-05-29] MEDS: ALBUTEROL FS 2.5 MG/3 ML VIAL.NEB NEB SCH ×4 (01:46→19:00)
[2018-05-29] MEDS: LEVOTHYROXINE SODIUM 88 MCG TABLET GT SCH (05:17)
[2018-05-29] MEDS: OMEPRAZOLE 20 MG CAPSULE.DR GT SCH (05:17)
[2018-05-29] MEDS: PROSTAT (PYXIS) 30 ML UDC GT SCH ×3 (08:26→16:26)
[2018-05-29] MEDS: LEVETIRACETAM SOL (5 ML) 100 MG/ML UDC GT SCH ×2 (08:26→20:02)
[2018-05-29] MEDS: ZINC SULFATE 220 MG CAPSULE GT SCH (08:26)
[2018-05-29] MEDS: ACIDOPHILUS/BULGARICUS 1 EACH TAB.CHEW GT SCH (08:26)
[2018-05-29] MEDS: CARBOXYMETHYLCELLULOSE SODIUM 0.4 ML DROPERETTE EACHEYE SCH (08:26)
[2018-05-29] MEDS: CHLORHEXIDINE GLUCONATE 15 ML UDC MM SCH ×2 (08:26→16:26)
[2018-05-29] MEDS: MULTIVIT W/MINERALS 1 TAB TABLET GT SCH (08:26)
[2018-05-29] MEDS: ASCORBIC ACID 500 MG TABLET GT SCH (08:26)
[2018-05-29] MEDS: HYDROGEN PEROXIDE 480 ML BOTTLE TP SCH ×2 (09:00→21:22)
[2018-05-29] MEDS: COD LIVER OIL/ZINC OXIDE 120 GM TUBE TP SCH ×2 (09:00→21:22)
[2018-05-29] MEDS: CHOLESTYRAMINE/ASPARTAME 4 G/PKT PACKET GT SCH (12:18)
[2018-05-29] MEDS: MORPHINE SULFATE SOLN CONCENTRATED 20 MG/ML SL SCH ×2 (12:18→20:02)
[2018-05-29] MEDS: DAKINS QUARTER STRENGTH (0.125%) 480 ML BOTTLE TOP SCH ×2 (12:40→21:22)
[2018-05-30] VITALS: BP 106/61
[2018-05-30] MEDS: ALBUTEROL FS 2.5 MG/3 ML VIAL.NEB NEB SCH ×4 (01:36→20:11)
[2018-05-30] MEDS: IPRATROPIUM NEB FS 0.5 MG/2.5 ML AMPUL.NEB IH SCH ×4 (01:36→20:11)
[2018-05-30] MEDS: GLUCERNA 1.2 1,000 ML BOTTLE GT PRN (04:14)
[2018-05-30] MEDS: OMEPRAZOLE 20 MG CAPSULE.DR GT SCH (05:01)
[2018-05-30] MEDS: LEVOTHYROXINE SODIUM 88 MCG TABLET GT SCH (05:01)
[2018-05-30 06:00] VITALS: BP 116/66
[2018-05-30 07:35] VITALS: BP 115/66
[2018-05-30] MEDS: LEVETIRACETAM SOL (5 ML) 100 MG/ML UDC GT SCH ×2 (08:27→20:28)
[2018-05-30] MEDS: ACIDOPHILUS/BULGARICUS 1 EACH TAB.CHEW GT SCH (08:27)
[2018-05-30] MEDS: CHLORHEXIDINE GLUCONATE 15 ML UDC MM SCH ×2 (08:27→17:54)
[2018-05-30] MEDS: ASCORBIC ACID 500 MG TABLET GT SCH (08:27)
[2018-05-30] MEDS: HYDROGEN PEROXIDE 480 ML BOTTLE TP SCH ×2 (08:27→21:16)
[2018-05-30] MEDS: CARBOXYMETHYLCELLULOSE SODIUM 0.4 ML DROPERETTE EACHEYE SCH (08:27)
[2018-05-30] MEDS: MORPHINE SULFATE SOLN CONCENTRATED 20 MG/ML SL SCH ×2 (08:27→20:28)
[2018-05-30] MEDS: ZINC SULFATE 220 MG CAPSULE GT SCH (08:27)
[2018-05-30] MEDS: MULTIVIT W/MINERALS 1 TAB TABLET GT SCH (08:27)
[2018-05-30] MEDS: DAKINS QUARTER STRENGTH (0.125%) 480 ML BOTTLE TOP SCH ×2 (08:27→21:16)
[2018-05-30] MEDS: PROSTAT (PYXIS) 30 ML UDC GT SCH ×3 (08:27→17:54)
[2018-05-30] MEDS: COD LIVER OIL/ZINC OXIDE 120 GM TUBE TP SCH ×2 (08:27→21:16)
[2018-05-30] MEDS: CHOLESTYRAMINE/ASPARTAME 4 G/PKT PACKET GT SCH (12:07)
--- NOTE | 2018-05-30 14:00 | NUR ---
Seen and examined by Becca Smith NP NNO given.
[2018-05-30 17:58] VITALS: BP 115/66
[2018-05-30 18:27] VITALS: BP 125/70
[2018-05-30 20:02] VITALS: BP 114/64
[2018-05-31 00:26] VITALS: BP 98/78
[2018-05-31] MEDS: ALBUTEROL FS 2.5 MG/3 ML VIAL.NEB NEB SCH ×4 (01:49→19:11)
[2018-05-31] MEDS: IPRATROPIUM NEB FS 0.5 MG/2.5 ML AMPUL.NEB IH SCH ×4 (01:49→19:11)
[2018-05-31] MEDS: OMEPRAZOLE 20 MG CAPSULE.DR GT SCH (05:34)
[2018-05-31] MEDS: LEVOTHYROXINE SODIUM 88 MCG TABLET GT SCH (05:34)
[2018-05-31] MEDS: GLUCERNA 1.2 1,000 ML BOTTLE GT PRN (05:56)
[2018-05-31 06:09] VITALS: BP 125/71
[2018-05-31 08:08] VITALS: BP 134/64
[2018-05-31] MEDS: COD LIVER OIL/ZINC OXIDE 120 GM TUBE TP SCH ×2 (08:57→20:54)
[2018-05-31] MEDS: CHLORHEXIDINE GLUCONATE 15 ML UDC MM SCH ×2 (08:57→16:55)
[2018-05-31] MEDS: MORPHINE SULFATE SOLN CONCENTRATED 20 MG/ML SL SCH ×2 (08:57→20:53)
[2018-05-31] MEDS: MULTIVIT W/MINERALS 1 TAB TABLET GT SCH (08:57)
[2018-05-31] MEDS: PROSTAT (PYXIS) 30 ML UDC GT SCH ×3 (08:57→16:53)
[2018-05-31] MEDS: ASCORBIC ACID 500 MG TABLET GT SCH (08:57)
[2018-05-31] MEDS: ACIDOPHILUS/BULGARICUS 1 EACH TAB.CHEW GT SCH (08:57)
[2018-05-31] MEDS: DAKINS QUARTER STRENGTH (0.125%) 480 ML BOTTLE TOP SCH ×2 (08:57→20:54)
[2018-05-31] MEDS: CARBOXYMETHYLCELLULOSE SODIUM 0.4 ML DROPERETTE EACHEYE SCH (08:57)
[2018-05-31] MEDS: ZINC SULFATE 220 MG CAPSULE GT SCH (08:57)
[2018-05-31] MEDS: LEVETIRACETAM SOL (5 ML) 100 MG/ML UDC GT SCH ×2 (08:57→20:53)
[2018-05-31] MEDS: HYDROGEN PEROXIDE 480 ML BOTTLE TP SCH ×2 (08:58→20:54)
[2018-05-31] MEDS: CHOLESTYRAMINE/ASPARTAME 4 G/PKT PACKET GT SCH (12:16)
[2018-05-31] MEDS: ONDANSETRON 4 MG TAB.RAPDIS GT PRN (12:17)
[2018-05-31 16:44] VITALS: BP 134/64
[2018-05-31 19:00] VITALS: BP 128/66
[2018-05-31 20:16] VITALS: BP 106/58
[2018-05-31] MEDS: hydrALAZINE HCL 10 MG TABLET GT PRN (23:37)
[2018-06-01] VITALS (8 sets, daily range): BP systolic 104–129; BP diastolic 54–80
[2018-06-01] MEDS: ALBUTEROL FS 2.5 MG/3 ML VIAL.NEB NEB SCH ×4 (02:04→19:50)
[2018-06-01] MEDS: IPRATROPIUM NEB FS 0.5 MG/2.5 ML AMPUL.NEB IH SCH ×4 (02:04→19:50)
[2018-06-01] MEDS: LEVOTHYROXINE SODIUM 88 MCG TABLET GT SCH (05:07)
[2018-06-01] MEDS: OMEPRAZOLE 20 MG CAPSULE.DR GT SCH (05:07)
[2018-06-01] MEDS: MULTIVIT W/MINERALS 1 TAB TABLET GT SCH (08:58)
[2018-06-01] MEDS: ZINC SULFATE 220 MG CAPSULE GT SCH (08:58)
[2018-06-01] MEDS: PROSTAT (PYXIS) 30 ML UDC GT SCH ×3 (08:58→16:57)
[2018-06-01] MEDS: ACIDOPHILUS/BULGARICUS 1 EACH TAB.CHEW GT SCH (08:58)
[2018-06-01] MEDS: CHLORHEXIDINE GLUCONATE 15 ML UDC MM SCH ×2 (08:58→16:57)
[2018-06-01] MEDS: ASCORBIC ACID 500 MG TABLET GT SCH (08:58)
[2018-06-01] MEDS: CARBOXYMETHYLCELLULOSE SODIUM 0.4 ML DROPERETTE EACHEYE SCH (08:58)
[2018-06-01] MEDS: LEVETIRACETAM SOL (5 ML) 100 MG/ML UDC GT SCH ×2 (08:58→20:15)
[2018-06-01] MEDS: DAKINS QUARTER STRENGTH (0.125%) 480 ML BOTTLE TOP SCH ×2 (08:59→21:00)
[2018-06-01] MEDS: COD LIVER OIL/ZINC OXIDE 120 GM TUBE TP SCH ×2 (08:59→21:00)
[2018-06-01] MEDS: MORPHINE SULFATE SOLN CONCENTRATED 20 MG/ML SL SCH ×2 (08:59→20:15)
[2018-06-01] MEDS: HYDROGEN PEROXIDE 480 ML BOTTLE TP SCH ×2 (08:59→21:00)
[2018-06-01] MEDS: CHOLESTYRAMINE/ASPARTAME 4 G/PKT PACKET GT SCH (12:00)
[2018-06-01] MEDS: GLUCERNA 1.2 1,000 ML BOTTLE GT PRN (16:58)
[2018-06-02 00:27] VITALS: BP 115/62
[2018-06-02] MEDS: ALBUTEROL FS 2.5 MG/3 ML VIAL.NEB NEB SCH ×4 (01:26→19:24)
[2018-06-02] MEDS: IPRATROPIUM NEB FS 0.5 MG/2.5 ML AMPUL.NEB IH SCH ×4 (01:26→19:24)
[2018-06-02] MEDS: OMEPRAZOLE 20 MG CAPSULE.DR GT SCH (05:40)
[2018-06-02] MEDS: LEVOTHYROXINE SODIUM 88 MCG TABLET GT SCH (05:40)
[2018-06-02 06:06] VITALS: BP 102/57
[2018-06-02 08:00] VITALS: BP 116/65
[2018-06-02] MEDS: MORPHINE SULFATE SOLN CONCENTRATED 20 MG/ML SL SCH ×2 (09:54→21:12)
[2018-06-02] MEDS: CHLORHEXIDINE GLUCONATE 15 ML UDC MM SCH ×2 (09:54→16:35)
[2018-06-02] MEDS: ASCORBIC ACID 500 MG TABLET GT SCH (09:54)
[2018-06-02] MEDS: PROSTAT (PYXIS) 30 ML UDC GT SCH ×3 (09:54→16:35)
[2018-06-02] MEDS: ACIDOPHILUS/BULGARICUS 1 EACH TAB.CHEW GT SCH (09:54)
[2018-06-02] MEDS: CARBOXYMETHYLCELLULOSE SODIUM 0.4 ML DROPERETTE EACHEYE SCH (09:54)
[2018-06-02] MEDS: COD LIVER OIL/ZINC OXIDE 120 GM TUBE TP SCH ×2 (09:54→21:12)
[2018-06-02] MEDS: HYDROGEN PEROXIDE 480 ML BOTTLE TP SCH ×2 (09:54→21:12)
[2018-06-02] MEDS: ZINC SULFATE 220 MG CAPSULE GT SCH (09:54)
[2018-06-02] MEDS: LEVETIRACETAM SOL (5 ML) 100 MG/ML UDC GT SCH ×2 (09:54→21:12)
[2018-06-02] MEDS: MULTIVIT W/MINERALS 1 TAB TABLET GT SCH (09:54)
[2018-06-02] MEDS: DAKINS QUARTER STRENGTH (0.125%) 480 ML BOTTLE TOP SCH ×2 (10:30→21:12)
[2018-06-02 12:00] VITALS: BP 112/50
--- NOTE | 2018-06-02 12:17 | NUR ---
Seen and examined by Dr. Ross, NNO given at this time.
[2018-06-02] MEDS: CHOLESTYRAMINE/ASPARTAME 4 G/PKT PACKET GT SCH (12:37)
[2018-06-02] MEDS: GLUCERNA 1.2 1,000 ML BOTTLE GT PRN (16:00)
[2018-06-02 18:03] VITALS: BP 102/45
[2018-06-02 20:38] VITALS: BP 109/66
[2018-06-03] VITALS: BP 122/56
[2018-06-03] MEDS: IPRATROPIUM NEB FS 0.5 MG/2.5 ML AMPUL.NEB IH SCH ×4 (01:59→19:13)
[2018-06-03] MEDS: ALBUTEROL FS 2.5 MG/3 ML VIAL.NEB NEB SCH ×4 (01:59→19:13)
[2018-06-03] MEDS: LEVOTHYROXINE SODIUM 88 MCG TABLET GT SCH (05:04)
[2018-06-03] MEDS: OMEPRAZOLE 20 MG CAPSULE.DR GT SCH (05:04)
[2018-06-03 06:00] VITALS: BP 129/70
[2018-06-03 07:20] VITALS: BP 141/86
[2018-06-03] MEDS: CHLORHEXIDINE GLUCONATE 15 ML UDC MM SCH ×2 (08:22→17:43)
[2018-06-03] MEDS: MORPHINE SULFATE SOLN CONCENTRATED 20 MG/ML SL SCH ×2 (08:22→20:09)
[2018-06-03] MEDS: MULTIVIT W/MINERALS 1 TAB TABLET GT SCH (08:22)
[2018-06-03] MEDS: LEVETIRACETAM SOL (5 ML) 100 MG/ML UDC GT SCH ×2 (08:22→20:09)
[2018-06-03] MEDS: PROSTAT (PYXIS) 30 ML UDC GT SCH ×3 (08:22→17:43)
[2018-06-03] MEDS: ACIDOPHILUS/BULGARICUS 1 EACH TAB.CHEW GT SCH (08:22)
[2018-06-03] MEDS: CARBOXYMETHYLCELLULOSE SODIUM 0.4 ML DROPERETTE EACHEYE SCH (08:22)
[2018-06-03] MEDS: ASCORBIC ACID 500 MG TABLET GT SCH (08:22)
[2018-06-03] MEDS: ZINC SULFATE 220 MG CAPSULE GT SCH (08:22)
[2018-06-03] MEDS: COD LIVER OIL/ZINC OXIDE 120 GM TUBE TP SCH ×2 (09:00→20:09)
[2018-06-03] MEDS: DAKINS QUARTER STRENGTH (0.125%) 480 ML BOTTLE TOP SCH ×2 (09:00→20:09)
[2018-06-03] MEDS: HYDROGEN PEROXIDE 480 ML BOTTLE TP SCH ×2 (09:00→20:10)
[2018-06-03] MEDS: diphenhydrAMINE HCL ELIX 25 MG/10 ML UDC GT PRN (09:13)
[2018-06-03] MEDS: CHOLESTYRAMINE/ASPARTAME 4 G/PKT PACKET GT SCH (11:49)
[2018-06-03] MEDS: ONDANSETRON 4 MG TAB.RAPDIS GT PRN (11:49)
[2018-06-03 15:08] VITALS: BP 141/86
[2018-06-03 18:08] VITALS: BP 133/81
--- NOTE | 2018-06-03 20:07 | NUR ---
PATIENT RECEIVED ON 28% AEROSOL T-TUBE, TOLERATING WITH NO DISTRESS NOTED. SUCTIONED FOR MINIMAL, THIN, YELLOW-CREAM SECRETIONS. GIVEN IN-LINE TREATMENTS WITH NO ADVERSE REACTIONS. AMBU BAG AT BEDSIDE. Addendum: 06/03/18 at 2008 by IVAN TOLBERT RT Amended: Links added.
[2018-06-03 20:08] VITALS: BP 123/64
[2018-06-04 00:50] VITALS: BP 97/61
[2018-06-04] MEDS: IPRATROPIUM NEB FS 0.5 MG/2.5 ML AMPUL.NEB IH SCH ×4 (01:41→19:20)
[2018-06-04] MEDS: ALBUTEROL FS 2.5 MG/3 ML VIAL.NEB NEB SCH ×4 (01:42→19:20)
[2018-06-04] MEDS: OMEPRAZOLE 20 MG CAPSULE.DR GT SCH (05:04)
[2018-06-04] MEDS: LEVOTHYROXINE SODIUM 88 MCG TABLET GT SCH (05:05)
[2018-06-04 06:00] VITALS: BP 91/53
[2018-06-04 07:55] VITALS: BP 104/75
[2018-06-04] MEDS: PROSTAT (PYXIS) 30 ML UDC GT SCH ×3 (08:08→17:00)
[2018-06-04] MEDS: LEVETIRACETAM SOL (5 ML) 100 MG/ML UDC GT SCH ×2 (08:08→20:04)
[2018-06-04] MEDS: ZINC SULFATE 220 MG CAPSULE GT SCH (08:08)
[2018-06-04] MEDS: ACIDOPHILUS/BULGARICUS 1 EACH TAB.CHEW GT SCH (08:08)
[2018-06-04] MEDS: CHLORHEXIDINE GLUCONATE 15 ML UDC MM SCH ×2 (08:08→17:29)
[2018-06-04] MEDS: CARBOXYMETHYLCELLULOSE SODIUM 0.4 ML DROPERETTE EACHEYE SCH (08:08)
[2018-06-04] MEDS: ASCORBIC ACID 500 MG TABLET GT SCH (08:08)
[2018-06-04] MEDS: MULTIVIT W/MINERALS 1 TAB TABLET GT SCH (08:08)
[2018-06-04] MEDS: MORPHINE SULFATE SOLN CONCENTRATED 20 MG/ML SL SCH ×2 (08:08→20:04)
[2018-06-04] MEDS: DAKINS QUARTER STRENGTH (0.125%) 480 ML BOTTLE TOP SCH ×2 (08:09→20:04)
[2018-06-04] MEDS: COD LIVER OIL/ZINC OXIDE 120 GM TUBE TP SCH ×2 (08:09→20:04)
[2018-06-04] MEDS: HYDROGEN PEROXIDE 480 ML BOTTLE TP SCH ×2 (08:10→20:05)
--- NOTE | 2018-06-04 10:34 | NUR ---
Notified Dr Ramirez that pt vomited yesterday, and has vomited 6 times this month, usually after being suctioned. Dr Ramirez ordered to hold G-tube feeding for 24 hours and give D5 1/2 NS at 80 mL/hr while G-tube feeding is on hold. He also ordered Reglan 10 mg GT q 8 hours for 1 week. Informed pt's daughter Reyna who appreciated call.
[2018-06-04] MEDS ORDERED: METOCLOPRAMIDE HCL 10 MG TABLET GT PRN (11:30)
[2018-06-04 12:00] VITALS: BP 114/78
[2018-06-04] MEDS: CHOLESTYRAMINE/ASPARTAME 4 G/PKT PACKET GT SCH (12:00)
[2018-06-04] MEDS: METOCLOPRAMIDE HCL 10 MG TABLET GT SCH ×2 (14:14→21:30)
--- NOTE | 2018-06-04 15:00 | NUR ---
Spoke with Reyna Galindo regarding use of IV fluids. Notified her earlier today that pt's G-tube feeding will be on hold for 24 hours and pt will be given D5 1/2 NS at 80 mL/hr IV while G-tube feeding is on hold. Clarified the use of IV fluids with her. She said to give IV fluids and she will fix the pt's preferred intensity of care.
[2018-06-04] MEDS: IV D5/0.45 NACL 1,000 ML IV PRN (15:34)
[2018-06-04 18:00] VITALS: BP 124/72
[2018-06-04 19:36] VITALS: BP 113/63
[2018-06-05 00:46] VITALS: BP 111/63
[2018-06-05] MEDS: IPRATROPIUM NEB FS 0.5 MG/2.5 ML AMPUL.NEB IH SCH ×4 (01:31→19:07)
[2018-06-05] MEDS: ALBUTEROL FS 2.5 MG/3 ML VIAL.NEB NEB SCH ×4 (01:31→19:07)
[2018-06-05] MEDS: IV D5/0.45 NACL 1,000 ML IV PRN (02:25)
[2018-06-05] MEDS: LEVOTHYROXINE SODIUM 88 MCG TABLET GT SCH (05:10)
[2018-06-05] MEDS: OMEPRAZOLE 20 MG CAPSULE.DR GT SCH (05:11)
[2018-06-05] MEDS: METOCLOPRAMIDE HCL 10 MG TABLET GT SCH ×4 (05:12→21:35)
[2018-06-05 06:07] VITALS: BP 98/55
[2018-06-05 07:53] VITALS: BP 140/60
[2018-06-05] MEDS: ASCORBIC ACID 500 MG TABLET GT SCH (08:38)
[2018-06-05] MEDS: MULTIVIT W/MINERALS 1 TAB TABLET GT SCH (08:38)
[2018-06-05] MEDS: LEVETIRACETAM SOL (5 ML) 100 MG/ML UDC GT SCH ×2 (08:38→20:14)
[2018-06-05] MEDS: ACIDOPHILUS/BULGARICUS 1 EACH TAB.CHEW GT SCH (08:38)
[2018-06-05] MEDS: PROSTAT (PYXIS) 30 ML UDC GT SCH ×3 (08:38→17:17)
[2018-06-05] MEDS: CARBOXYMETHYLCELLULOSE SODIUM 0.4 ML DROPERETTE EACHEYE SCH (08:38)
[2018-06-05] MEDS: MORPHINE SULFATE SOLN CONCENTRATED 20 MG/ML SL SCH ×2 (08:39→20:14)
[2018-06-05] MEDS: ZINC SULFATE 220 MG CAPSULE GT SCH (08:39)
[2018-06-05] MEDS: CHLORHEXIDINE GLUCONATE 15 ML UDC MM SCH ×2 (08:39→17:17)
[2018-06-05] MEDS: HYDROGEN PEROXIDE 480 ML BOTTLE TP SCH ×2 (09:10→20:14)
[2018-06-05] MEDS: COD LIVER OIL/ZINC OXIDE 120 GM TUBE TP SCH ×2 (09:10→20:14)
[2018-06-05] MEDS: DAKINS QUARTER STRENGTH (0.125%) 480 ML BOTTLE TOP SCH ×2 (09:10→20:14)
[2018-06-05] MEDS: CHOLESTYRAMINE/ASPARTAME 4 G/PKT PACKET GT SCH (11:45)
[2018-06-05 12:00] VITALS: BP 119/55
[2018-06-05] MEDS: ONDANSETRON 4 MG TAB.RAPDIS GT PRN (12:18)
--- NOTE | 2018-06-05 15:00 | NUR ---
Completed the 24 hour IV hydration. Resumed GT feeding, tolerating well. Vomited X 1 in the morning after med pass. PRN Zofran given as ordered. Dr. Ramirez informed. Will continue to monitor.
[2018-06-05] MEDS: GLUCERNA 1.2 1,000 ML BOTTLE GT PRN (15:30)
[2018-06-05 19:02] VITALS: BP 124/61
[2018-06-05 20:01] VITALS: BP 117/42
[2018-06-06 00:24] VITALS: BP 99/55
[2018-06-06] MEDS: ALBUTEROL FS 2.5 MG/3 ML VIAL.NEB NEB SCH ×4 (01:13→19:45)
[2018-06-06] MEDS: IPRATROPIUM NEB FS 0.5 MG/2.5 ML AMPUL.NEB IH SCH ×4 (01:13→19:45)
[2018-06-06] MEDS: LEVOTHYROXINE SODIUM 88 MCG TABLET GT SCH (05:13)
[2018-06-06] MEDS: OMEPRAZOLE 20 MG CAPSULE.DR GT SCH (05:13)
[2018-06-06] MEDS: METOCLOPRAMIDE HCL 10 MG TABLET GT SCH ×3 (05:13→20:11)
[2018-06-06 06:05] VITALS: BP 120/66
[2018-06-06] MEDS: COD LIVER OIL/ZINC OXIDE 120 GM TUBE TP SCH ×2 (09:00→20:12)
[2018-06-06] MEDS: HYDROGEN PEROXIDE 480 ML BOTTLE TP SCH ×2 (09:00→20:12)
[2018-06-06] MEDS: DAKINS QUARTER STRENGTH (0.125%) 480 ML BOTTLE TOP SCH ×2 (09:00→20:12)
[2018-06-06] MEDS: MULTIVIT W/MINERALS 1 TAB TABLET GT SCH (09:03)
[2018-06-06] MEDS: PROSTAT (PYXIS) 30 ML UDC GT SCH ×3 (09:03→16:34)
[2018-06-06] MEDS: ACIDOPHILUS/BULGARICUS 1 EACH TAB.CHEW GT SCH (09:03)
[2018-06-06] MEDS: ZINC SULFATE 220 MG CAPSULE GT SCH (09:03)
[2018-06-06] MEDS: CARBOXYMETHYLCELLULOSE SODIUM 0.4 ML DROPERETTE EACHEYE SCH (09:03)
[2018-06-06] MEDS: ASCORBIC ACID 500 MG TABLET GT SCH (09:03)
[2018-06-06] MEDS: MORPHINE SULFATE SOLN CONCENTRATED 20 MG/ML SL SCH ×2 (09:03→20:12)
[2018-06-06] MEDS: CHLORHEXIDINE GLUCONATE 15 ML UDC MM SCH ×2 (09:03→16:34)
[2018-06-06] MEDS: LEVETIRACETAM SOL (5 ML) 100 MG/ML UDC GT SCH ×2 (09:09→20:11)
[2018-06-06 11:48] VITALS: BP 99/57
[2018-06-06 12:00] VITALS: BP 100/50
[2018-06-06] MEDS: CHOLESTYRAMINE/ASPARTAME 4 G/PKT PACKET GT SCH (12:17)
[2018-06-06] MEDS: GLUCERNA 1.2 1,000 ML BOTTLE GT PRN (15:22)
[2018-06-06 18:43] VITALS: BP 105/52
[2018-06-06 20:15] VITALS: BP 125/62
[2018-06-07 00:05] VITALS: BP 100/65
[2018-06-07] MEDS: ALBUTEROL FS 2.5 MG/3 ML VIAL.NEB NEB SCH ×4 (01:16→19:37)
[2018-06-07] MEDS: IPRATROPIUM NEB FS 0.5 MG/2.5 ML AMPUL.NEB IH SCH ×4 (01:16→19:37)
[2018-06-07] MEDS: OMEPRAZOLE 20 MG CAPSULE.DR GT SCH (05:19)
[2018-06-07] MEDS: METOCLOPRAMIDE HCL 10 MG TABLET GT SCH ×3 (05:19→21:08)
[2018-06-07] MEDS: LEVOTHYROXINE SODIUM 88 MCG TABLET GT SCH (05:19)
[2018-06-07 06:08] VITALS: BP 90/54
[2018-06-07 07:35] VITALS: BP 107/53
[2018-06-07] MEDS: LEVETIRACETAM SOL (5 ML) 100 MG/ML UDC GT SCH ×2 (08:22→21:07)
[2018-06-07] MEDS: HYDROGEN PEROXIDE 480 ML BOTTLE TP SCH ×2 (08:22→21:40)
[2018-06-07] MEDS: MULTIVIT W/MINERALS 1 TAB TABLET GT SCH (08:22)
[2018-06-07] MEDS: ZINC SULFATE 220 MG CAPSULE GT SCH (08:22)
[2018-06-07] MEDS: PROSTAT (PYXIS) 30 ML UDC GT SCH ×3 (08:22→17:52)
[2018-06-07] MEDS: DAKINS QUARTER STRENGTH (0.125%) 480 ML BOTTLE TOP SCH ×2 (08:22→21:40)
[2018-06-07] MEDS: ASCORBIC ACID 500 MG TABLET GT SCH (08:22)
[2018-06-07] MEDS: CARBOXYMETHYLCELLULOSE SODIUM 0.4 ML DROPERETTE EACHEYE SCH (08:22)
[2018-06-07] MEDS: ACIDOPHILUS/BULGARICUS 1 EACH TAB.CHEW GT SCH (08:22)
[2018-06-07] MEDS: CHLORHEXIDINE GLUCONATE 15 ML UDC MM SCH ×2 (08:22→17:52)
[2018-06-07] MEDS: COD LIVER OIL/ZINC OXIDE 120 GM TUBE TP SCH ×2 (08:22→21:40)
[2018-06-07] MEDS: MORPHINE SULFATE SOLN CONCENTRATED 20 MG/ML SL SCH ×2 (08:22→21:08)
[2018-06-07 12:00] VITALS: BP 108/62
[2018-06-07] MEDS: CHOLESTYRAMINE/ASPARTAME 4 G/PKT PACKET GT SCH (12:00)
[2018-06-07] MEDS: GLUCERNA 1.2 1,000 ML BOTTLE GT PRN (15:21)
[2018-06-07 19:36] VITALS: BP 110/57
[2018-06-08 00:05] VITALS: BP 114/60
[2018-06-08] MEDS: ALBUTEROL FS 2.5 MG/3 ML VIAL.NEB NEB SCH ×4 (01:47→19:36)
[2018-06-08] MEDS: IPRATROPIUM NEB FS 0.5 MG/2.5 ML AMPUL.NEB IH SCH ×4 (01:47→19:36)
[2018-06-08] MEDS: LEVOTHYROXINE SODIUM 88 MCG TABLET GT SCH (05:15)
[2018-06-08] MEDS: OMEPRAZOLE 20 MG CAPSULE.DR GT SCH (05:15)
[2018-06-08] MEDS: METOCLOPRAMIDE HCL 10 MG TABLET GT SCH ×3 (05:15→20:18)
[2018-06-08 06:27] VITALS: BP 107/54
[2018-06-08 07:32] VITALS: BP 110/67
[2018-06-08] MEDS: PROSTAT (PYXIS) 30 ML UDC GT SCH ×3 (08:44→17:23)
[2018-06-08] MEDS: CARBOXYMETHYLCELLULOSE SODIUM 0.4 ML DROPERETTE EACHEYE SCH (08:44)
[2018-06-08] MEDS: ZINC SULFATE 220 MG CAPSULE GT SCH (08:44)
[2018-06-08] MEDS: MULTIVIT W/MINERALS 1 TAB TABLET GT SCH (08:44)
[2018-06-08] MEDS: LEVETIRACETAM SOL (5 ML) 100 MG/ML UDC GT SCH ×2 (08:44→20:18)
[2018-06-08] MEDS: MORPHINE SULFATE SOLN CONCENTRATED 20 MG/ML SL SCH ×2 (08:44→20:18)
[2018-06-08] MEDS: CHLORHEXIDINE GLUCONATE 15 ML UDC MM SCH ×2 (08:44→17:23)
[2018-06-08] MEDS: ASCORBIC ACID 500 MG TABLET GT SCH (08:44)
[2018-06-08] MEDS: ACIDOPHILUS/BULGARICUS 1 EACH TAB.CHEW GT SCH (08:44)
[2018-06-08] MEDS: HYDROGEN PEROXIDE 480 ML BOTTLE TP SCH ×2 (09:20→21:17)
[2018-06-08] MEDS: DAKINS QUARTER STRENGTH (0.125%) 480 ML BOTTLE TOP SCH ×2 (09:20→21:17)
[2018-06-08] MEDS: COD LIVER OIL/ZINC OXIDE 120 GM TUBE TP SCH ×2 (09:20→21:17)
--- NOTE | 2018-06-08 11:00 | NUR ---
Seen and examined by Dr. Ross, NNO given. No further vomiting reported.
[2018-06-08 12:00] VITALS: BP 112/60
[2018-06-08] MEDS: CHOLESTYRAMINE/ASPARTAME 4 G/PKT PACKET GT SCH (12:29)
[2018-06-08] MEDS: GLUCERNA 1.2 1,000 ML BOTTLE GT PRN (14:45)
[2018-06-08 18:10] VITALS: BP 120/52
[2018-06-08 19:45] VITALS: BP 106/43
[2018-06-09] VITALS (7 sets, daily range): BP systolic 102–129; BP diastolic 56–76
[2018-06-09] MEDS: ALBUTEROL FS 2.5 MG/3 ML VIAL.NEB NEB SCH ×4 (01:05→19:48)
[2018-06-09] MEDS: IPRATROPIUM NEB FS 0.5 MG/2.5 ML AMPUL.NEB IH SCH ×4 (01:05→19:48)
[2018-06-09] MEDS: OMEPRAZOLE 20 MG CAPSULE.DR GT SCH (05:48)
[2018-06-09] MEDS: METOCLOPRAMIDE HCL 10 MG TABLET GT SCH ×3 (05:48→20:42)
[2018-06-09] MEDS: LEVOTHYROXINE SODIUM 88 MCG TABLET GT SCH (05:48)
[2018-06-09] MEDS: GLUCERNA 1.2 1,000 ML BOTTLE GT PRN (06:19)
[2018-06-09] MEDS: CHLORHEXIDINE GLUCONATE 15 ML UDC MM SCH ×2 (09:00→17:31)
[2018-06-09] MEDS: ZINC SULFATE 220 MG CAPSULE GT SCH (09:00)
[2018-06-09] MEDS: ACIDOPHILUS/BULGARICUS 1 EACH TAB.CHEW GT SCH (09:00)
[2018-06-09] MEDS: CARBOXYMETHYLCELLULOSE SODIUM 0.4 ML DROPERETTE EACHEYE SCH (09:00)
[2018-06-09] MEDS: LEVETIRACETAM SOL (5 ML) 100 MG/ML UDC GT SCH ×2 (09:00→20:42)
[2018-06-09] MEDS: MULTIVIT W/MINERALS 1 TAB TABLET GT SCH (09:00)
[2018-06-09] MEDS: ASCORBIC ACID 500 MG TABLET GT SCH (09:00)
[2018-06-09] MEDS: PROSTAT (PYXIS) 30 ML UDC GT SCH ×3 (09:00→17:31)
[2018-06-09] MEDS: MORPHINE SULFATE SOLN CONCENTRATED 20 MG/ML SL SCH ×2 (09:10→20:42)
[2018-06-09] MEDS: HYDROGEN PEROXIDE 480 ML BOTTLE TP SCH ×2 (09:45→20:53)
[2018-06-09] MEDS: COD LIVER OIL/ZINC OXIDE 120 GM TUBE TP SCH ×2 (09:45→20:53)
[2018-06-09] MEDS: DAKINS QUARTER STRENGTH (0.125%) 480 ML BOTTLE TOP SCH ×2 (09:45→20:53)
[2018-06-09] MEDS: CHOLESTYRAMINE/ASPARTAME 4 G/PKT PACKET GT SCH (12:28)
[2018-06-10] VITALS (7 sets, daily range): BP systolic 100–115; BP diastolic 58–74
[2018-06-10] MEDS: ALBUTEROL FS 2.5 MG/3 ML VIAL.NEB NEB SCH ×4 (01:45→19:46)
[2018-06-10] MEDS: IPRATROPIUM NEB FS 0.5 MG/2.5 ML AMPUL.NEB IH SCH ×4 (01:45→19:46)
[2018-06-10] MEDS: METOCLOPRAMIDE HCL 10 MG TABLET GT SCH ×3 (05:09→20:05)
[2018-06-10] MEDS: LEVOTHYROXINE SODIUM 88 MCG TABLET GT SCH (05:09)
[2018-06-10] MEDS: OMEPRAZOLE 20 MG CAPSULE.DR GT SCH (05:11)
[2018-06-10] MEDS: GLUCERNA 1.2 1,000 ML BOTTLE GT PRN (05:12)
[2018-06-10] MEDS: ACIDOPHILUS/BULGARICUS 1 EACH TAB.CHEW GT SCH (08:28)
[2018-06-10] MEDS: PROSTAT (PYXIS) 30 ML UDC GT SCH ×3 (08:28→17:00)
[2018-06-10] MEDS: ZINC SULFATE 220 MG CAPSULE GT SCH (08:28)
[2018-06-10] MEDS: MULTIVIT W/MINERALS 1 TAB TABLET GT SCH (08:28)
[2018-06-10] MEDS: LEVETIRACETAM SOL (5 ML) 100 MG/ML UDC GT SCH ×2 (08:28→20:05)
[2018-06-10] MEDS: ASCORBIC ACID 500 MG TABLET GT SCH (08:28)
[2018-06-10] MEDS: MORPHINE SULFATE SOLN CONCENTRATED 20 MG/ML SL SCH ×2 (08:28→20:05)
[2018-06-10] MEDS: CARBOXYMETHYLCELLULOSE SODIUM 0.4 ML DROPERETTE EACHEYE SCH (08:28)
[2018-06-10] MEDS: CHLORHEXIDINE GLUCONATE 15 ML UDC MM SCH ×2 (08:28→17:00)
[2018-06-10] MEDS: COD LIVER OIL/ZINC OXIDE 120 GM TUBE TP SCH ×2 (09:00→20:05)
[2018-06-10] MEDS: HYDROGEN PEROXIDE 480 ML BOTTLE TP SCH ×2 (09:00→20:05)
[2018-06-10] MEDS: DAKINS QUARTER STRENGTH (0.125%) 480 ML BOTTLE TOP SCH ×2 (09:00→20:05)
[2018-06-10] MEDS: CHOLESTYRAMINE/ASPARTAME 4 G/PKT PACKET GT SCH (12:53)
[2018-06-11] VITALS (7 sets, daily range): BP systolic 99–127; BP diastolic 57–71
[2018-06-11] MEDS: ALBUTEROL FS 2.5 MG/3 ML VIAL.NEB NEB SCH ×4 (01:06→19:26)
[2018-06-11] MEDS: IPRATROPIUM NEB FS 0.5 MG/2.5 ML AMPUL.NEB IH SCH ×4 (01:06→19:26)
[2018-06-11] MEDS: GLUCERNA 1.2 1,000 ML BOTTLE GT PRN (04:31)
[2018-06-11] MEDS: METOCLOPRAMIDE HCL 10 MG TABLET GT SCH ×3 (05:07→20:02)
[2018-06-11] MEDS: OMEPRAZOLE 20 MG CAPSULE.DR GT SCH (05:08)
[2018-06-11] MEDS: LEVOTHYROXINE SODIUM 88 MCG TABLET GT SCH (05:08)
[2018-06-11] MEDS: PROSTAT (PYXIS) 30 ML UDC GT SCH ×3 (08:24→17:45)
[2018-06-11] MEDS: CHLORHEXIDINE GLUCONATE 15 ML UDC MM SCH ×2 (08:24→17:45)
[2018-06-11] MEDS: LEVETIRACETAM SOL (5 ML) 100 MG/ML UDC GT SCH ×2 (08:24→20:02)
[2018-06-11] MEDS: MULTIVIT W/MINERALS 1 TAB TABLET GT SCH (08:24)
[2018-06-11] MEDS: ASCORBIC ACID 500 MG TABLET GT SCH (08:24)
[2018-06-11] MEDS: ZINC SULFATE 220 MG CAPSULE GT SCH (08:24)
[2018-06-11] MEDS: CARBOXYMETHYLCELLULOSE SODIUM 0.4 ML DROPERETTE EACHEYE SCH (08:24)
[2018-06-11] MEDS: ACIDOPHILUS/BULGARICUS 1 EACH TAB.CHEW GT SCH (08:24)
[2018-06-11] MEDS: MORPHINE SULFATE SOLN CONCENTRATED 20 MG/ML SL SCH ×2 (08:25→20:02)
[2018-06-11] MEDS: COD LIVER OIL/ZINC OXIDE 120 GM TUBE TP SCH ×2 (09:00→20:06)
[2018-06-11] MEDS: DAKINS QUARTER STRENGTH (0.125%) 480 ML BOTTLE TOP SCH ×2 (09:00→20:06)
[2018-06-11] MEDS: HYDROGEN PEROXIDE 480 ML BOTTLE TP SCH ×2 (09:00→20:06)
[2018-06-11] MEDS: CHOLESTYRAMINE/ASPARTAME 4 G/PKT PACKET GT SCH (12:06)
[2018-06-11] MEDS: Z GUARD REMEDY 4 OZ OINT TP SCH (20:07)
[2018-06-11] MEDS: Z GUARD REMEDY 2 OZ OINT TP SCH (20:07)
[2018-06-12 00:17] VITALS: BP 104/57
[2018-06-12] MEDS: ALBUTEROL FS 2.5 MG/3 ML VIAL.NEB NEB SCH ×4 (01:50→19:24)
[2018-06-12] MEDS: IPRATROPIUM NEB FS 0.5 MG/2.5 ML AMPUL.NEB IH SCH ×4 (01:50→19:24)
[2018-06-12] MEDS: METOCLOPRAMIDE HCL 10 MG TABLET GT SCH ×2 (05:05→12:50)
[2018-06-12] MEDS: OMEPRAZOLE 20 MG CAPSULE.DR GT SCH (05:05)
[2018-06-12] MEDS: LEVOTHYROXINE SODIUM 88 MCG TABLET GT SCH (05:05)
[2018-06-12] MEDS: GLUCERNA 1.2 1,000 ML BOTTLE GT PRN (05:09)
[2018-06-12 06:04] VITALS: BP 135/64
[2018-06-12] MEDS: ACIDOPHILUS/BULGARICUS 1 EACH TAB.CHEW GT SCH (08:53)
[2018-06-12] MEDS: CARBOXYMETHYLCELLULOSE SODIUM 0.4 ML DROPERETTE EACHEYE SCH (08:53)
[2018-06-12] MEDS: LEVETIRACETAM SOL (5 ML) 100 MG/ML UDC GT SCH ×2 (08:53→20:05)
[2018-06-12] MEDS: ASCORBIC ACID 500 MG TABLET GT SCH (08:53)
[2018-06-12] MEDS: MULTIVIT W/MINERALS 1 TAB TABLET GT SCH (08:53)
[2018-06-12] MEDS: MORPHINE SULFATE SOLN CONCENTRATED 20 MG/ML SL SCH ×2 (08:53→20:05)
[2018-06-12] MEDS: CHLORHEXIDINE GLUCONATE 15 ML UDC MM SCH ×2 (08:53→17:29)
[2018-06-12] MEDS: PROSTAT (PYXIS) 30 ML UDC GT SCH ×3 (08:53→17:29)
[2018-06-12] MEDS: ZINC SULFATE 220 MG CAPSULE GT SCH (08:53)
[2018-06-12] MEDS: DAKINS QUARTER STRENGTH (0.125%) 480 ML BOTTLE TOP SCH ×2 (09:30→20:08)
[2018-06-12] MEDS: Z GUARD REMEDY 2 OZ OINT TP SCH ×2 (09:30→20:09)
[2018-06-12] MEDS: HYDROGEN PEROXIDE 480 ML BOTTLE TP SCH ×2 (09:30→20:09)
[2018-06-12] MEDS: COD LIVER OIL/ZINC OXIDE 120 GM TUBE TP SCH ×2 (09:30→20:08)
[2018-06-12] MEDS: Z GUARD REMEDY 4 OZ OINT TP SCH ×2 (09:30→20:09)
--- NOTE | 2018-06-12 09:30 | NUR ---
Seen and examined by Dr. Monet, no new order given.
[2018-06-12 10:39] VITALS: BP 106/53
[2018-06-12 12:00] VITALS: BP 100/65
[2018-06-12] MEDS: CHOLESTYRAMINE/ASPARTAME 4 G/PKT PACKET GT SCH (12:49)
[2018-06-12 18:11] VITALS: BP 111/58
[2018-06-12 20:15] VITALS: BP 111/48
[2018-06-13 00:27] VITALS: BP 101/63
[2018-06-13] MEDS: ALBUTEROL FS 2.5 MG/3 ML VIAL.NEB NEB SCH ×4 (01:21→19:55)
[2018-06-13] MEDS: IPRATROPIUM NEB FS 0.5 MG/2.5 ML AMPUL.NEB IH SCH ×4 (01:21→19:55)
[2018-06-13] MEDS: OMEPRAZOLE 20 MG CAPSULE.DR GT SCH (05:23)
[2018-06-13] MEDS: LEVOTHYROXINE SODIUM 88 MCG TABLET GT SCH (05:23)
[2018-06-13 06:24] VITALS: BP 105/65
[2018-06-13 07:46] VITALS: BP 100/52
[2018-06-13] MEDS: PROSTAT (PYXIS) 30 ML UDC GT SCH ×2 (09:15→16:00)
[2018-06-13] MEDS: CARBOXYMETHYLCELLULOSE SODIUM 0.4 ML DROPERETTE EACHEYE SCH (09:15)
[2018-06-13] MEDS: ZINC SULFATE 220 MG CAPSULE GT SCH (09:15)
[2018-06-13] MEDS: ACIDOPHILUS/BULGARICUS 1 EACH TAB.CHEW GT SCH (09:15)
[2018-06-13] MEDS: MULTIVIT W/MINERALS 1 TAB TABLET GT SCH (09:15)
[2018-06-13] MEDS: MORPHINE SULFATE SOLN CONCENTRATED 20 MG/ML SL SCH ×2 (09:15→21:02)
[2018-06-13] MEDS: ASCORBIC ACID 500 MG TABLET GT SCH (09:15)
[2018-06-13] MEDS: LEVETIRACETAM SOL (5 ML) 100 MG/ML UDC GT SCH ×2 (09:15→21:02)
[2018-06-13] MEDS: CHLORHEXIDINE GLUCONATE 15 ML UDC MM SCH ×2 (09:15→16:00)
[2018-06-13] MEDS: Z GUARD REMEDY 2 OZ OINT TP SCH ×2 (10:15→21:30)
[2018-06-13] MEDS: COD LIVER OIL/ZINC OXIDE 120 GM TUBE TP SCH ×2 (10:15→21:30)
[2018-06-13] MEDS: DAKINS QUARTER STRENGTH (0.125%) 480 ML BOTTLE TOP SCH ×2 (10:15→21:30)
[2018-06-13] MEDS: HYDROGEN PEROXIDE 480 ML BOTTLE TP SCH ×2 (10:15→21:30)
[2018-06-13] MEDS: Z GUARD REMEDY 4 OZ OINT TP SCH ×2 (10:15→21:30)
[2018-06-13 12:00] VITALS: BP 103/63
[2018-06-13] MEDS: GLUCERNA 1.2 1,000 ML BOTTLE GT PRN (15:55)
[2018-06-13 18:14] VITALS: BP 109/62
[2018-06-13 19:54] VITALS: BP 109/59
[2018-06-14 00:10] VITALS: BP 106/74
[2018-06-14] MEDS: ALBUTEROL FS 2.5 MG/3 ML VIAL.NEB NEB SCH ×4 (01:45→19:53)
[2018-06-14] MEDS: IPRATROPIUM NEB FS 0.5 MG/2.5 ML AMPUL.NEB IH SCH ×4 (01:45→19:53)
[2018-06-14] MEDS: LEVOTHYROXINE SODIUM 88 MCG TABLET GT SCH (05:27)
[2018-06-14] MEDS: OMEPRAZOLE 20 MG CAPSULE.DR GT SCH (05:27)
[2018-06-14 06:03] VITALS: BP 99/61
[2018-06-14 07:45] VITALS: BP 92/45
[2018-06-14] MEDS: LEVETIRACETAM SOL (5 ML) 100 MG/ML UDC GT SCH ×2 (08:43→20:42)
[2018-06-14] MEDS: MORPHINE SULFATE SOLN CONCENTRATED 20 MG/ML SL SCH ×2 (08:43→20:43)
[2018-06-14] MEDS: ASCORBIC ACID 500 MG TABLET GT SCH (08:43)
[2018-06-14] MEDS: MULTIVIT W/MINERALS 1 TAB TABLET GT SCH (08:43)
[2018-06-14] MEDS: PROSTAT (PYXIS) 30 ML UDC GT SCH ×3 (08:43→16:40)
[2018-06-14] MEDS: ZINC SULFATE 220 MG CAPSULE GT SCH (08:43)
[2018-06-14] MEDS: ACIDOPHILUS/BULGARICUS 1 EACH TAB.CHEW GT SCH (08:43)
[2018-06-14] MEDS: CARBOXYMETHYLCELLULOSE SODIUM 0.4 ML DROPERETTE EACHEYE SCH (08:43)
[2018-06-14] MEDS: CHLORHEXIDINE GLUCONATE 15 ML UDC MM SCH ×2 (08:43→16:40)
[2018-06-14] MEDS: HYDROGEN PEROXIDE 480 ML BOTTLE TP SCH ×2 (09:15→21:34)
[2018-06-14] MEDS: Z GUARD REMEDY 2 OZ OINT TP SCH ×2 (09:15→21:34)
[2018-06-14] MEDS: COD LIVER OIL/ZINC OXIDE 120 GM TUBE TP SCH ×2 (09:15→21:34)
[2018-06-14] MEDS: DAKINS QUARTER STRENGTH (0.125%) 480 ML BOTTLE TOP SCH ×2 (09:15→21:34)
[2018-06-14] MEDS: Z GUARD REMEDY 4 OZ OINT TP SCH ×2 (09:15→21:34)
[2018-06-14 12:00] VITALS: BP 105/48
[2018-06-14] MEDS: CHOLESTYRAMINE/ASPARTAME 4 G/PKT PACKET GT SCH (12:00)
[2018-06-14] MEDS: GLUCERNA 1.2 1,000 ML BOTTLE GT PRN (16:40)
[2018-06-14 18:51] VITALS: BP 112/52
[2018-06-14 19:25] VITALS: BP 101/66
--- NOTE | 2018-06-14 20:00 | NUR ---
Seen by TERESA COX.
[2018-06-15 00:20] VITALS: BP 106/70
[2018-06-15] MEDS: ALBUTEROL FS 2.5 MG/3 ML VIAL.NEB NEB SCH ×4 (01:32→19:33)
[2018-06-15] MEDS: IPRATROPIUM NEB FS 0.5 MG/2.5 ML AMPUL.NEB IH SCH ×4 (01:32→19:33)
[2018-06-15] MEDS: LEVOTHYROXINE SODIUM 88 MCG TABLET GT SCH (05:24)
[2018-06-15] MEDS: OMEPRAZOLE 20 MG CAPSULE.DR GT SCH (05:24)
[2018-06-15 06:08] VITALS: BP 121/67
[2018-06-15 07:49] VITALS: BP 129/60
[2018-06-15] MEDS: CHLORHEXIDINE GLUCONATE 15 ML UDC MM SCH ×2 (08:55→17:04)
[2018-06-15] MEDS: MORPHINE SULFATE SOLN CONCENTRATED 20 MG/ML SL SCH ×2 (08:55→20:05)
[2018-06-15] MEDS: ACIDOPHILUS/BULGARICUS 1 EACH TAB.CHEW GT SCH (08:55)
[2018-06-15] MEDS: PROSTAT (PYXIS) 30 ML UDC GT SCH ×3 (08:55→17:04)
[2018-06-15] MEDS: LEVETIRACETAM SOL (5 ML) 100 MG/ML UDC GT SCH ×2 (08:55→20:05)
[2018-06-15] MEDS: MULTIVIT W/MINERALS 1 TAB TABLET GT SCH (08:55)
[2018-06-15] MEDS: ZINC SULFATE 220 MG CAPSULE GT SCH (08:55)
[2018-06-15] MEDS: CARBOXYMETHYLCELLULOSE SODIUM 0.4 ML DROPERETTE EACHEYE SCH (08:55)
[2018-06-15] MEDS: ASCORBIC ACID 500 MG TABLET GT SCH (08:55)
--- NOTE | 2018-06-15 09:20 | NUR ---
Seen and examined by TERESA Smith, NNO given.
[2018-06-15] MEDS: Z GUARD REMEDY 4 OZ OINT TP SCH ×2 (09:45→20:06)
[2018-06-15] MEDS: Z GUARD REMEDY 2 OZ OINT TP SCH ×2 (09:45→20:06)
[2018-06-15] MEDS: COD LIVER OIL/ZINC OXIDE 120 GM TUBE TP SCH ×2 (09:45→20:06)
[2018-06-15] MEDS: DAKINS QUARTER STRENGTH (0.125%) 480 ML BOTTLE TOP SCH ×2 (09:45→20:05)
[2018-06-15] MEDS: HYDROGEN PEROXIDE 480 ML BOTTLE TP SCH ×2 (09:45→20:06)
[2018-06-15] MEDS: CHOLESTYRAMINE/ASPARTAME 4 G/PKT PACKET GT SCH (11:30)
[2018-06-15 12:41] VITALS: BP 106/57
[2018-06-15 18:31] VITALS: BP 117/65
[2018-06-15 19:45] VITALS: BP 118/61
[2018-06-16] VITALS: BP 118/61
[2018-06-16] MEDS: IPRATROPIUM NEB FS 0.5 MG/2.5 ML AMPUL.NEB IH SCH ×4 (01:30→19:32)
[2018-06-16] MEDS: ALBUTEROL FS 2.5 MG/3 ML VIAL.NEB NEB SCH ×4 (01:30→19:32)
[2018-06-16 06:00] VITALS: BP 115/60
[2018-06-16] MEDS: LEVOTHYROXINE SODIUM 88 MCG TABLET GT SCH (06:05)
[2018-06-16] MEDS: OMEPRAZOLE 20 MG CAPSULE.DR GT SCH (06:06)
[2018-06-16] MEDS: CARBOXYMETHYLCELLULOSE SODIUM 0.4 ML DROPERETTE EACHEYE SCH (08:46)
[2018-06-16] MEDS: ACIDOPHILUS/BULGARICUS 1 EACH TAB.CHEW GT SCH (08:47)
[2018-06-16] MEDS: ZINC SULFATE 220 MG CAPSULE GT SCH (08:47)
[2018-06-16] MEDS: PROSTAT (PYXIS) 30 ML UDC GT SCH ×3 (08:47→17:42)
[2018-06-16] MEDS: MULTIVIT W/MINERALS 1 TAB TABLET GT SCH (08:47)
[2018-06-16] MEDS: MORPHINE SULFATE SOLN CONCENTRATED 20 MG/ML SL SCH ×2 (08:47→20:26)
[2018-06-16] MEDS: LEVETIRACETAM SOL (5 ML) 100 MG/ML UDC GT SCH ×2 (08:47→20:01)
[2018-06-16] MEDS: CHLORHEXIDINE GLUCONATE 15 ML UDC MM SCH ×2 (08:47→17:42)
[2018-06-16] MEDS: ASCORBIC ACID 500 MG TABLET GT SCH (08:47)
[2018-06-16] MEDS: HYDROGEN PEROXIDE 480 ML BOTTLE TP SCH ×2 (09:20→20:10)
[2018-06-16] MEDS: Z GUARD REMEDY 2 OZ OINT TP SCH ×2 (09:20→20:10)
[2018-06-16] MEDS: Z GUARD REMEDY 4 OZ OINT TP SCH ×2 (09:20→20:10)
[2018-06-16] MEDS: COD LIVER OIL/ZINC OXIDE 120 GM TUBE TP SCH ×2 (09:20→20:10)
[2018-06-16] MEDS: DAKINS QUARTER STRENGTH (0.125%) 480 ML BOTTLE TOP SCH ×2 (09:20→20:10)
[2018-06-16] MEDS: ONDANSETRON 4 MG TAB.RAPDIS GT PRN (09:39)
[2018-06-16 12:00] VITALS: BP 101/53
[2018-06-16 18:06] VITALS: BP 108/58
[2018-06-16] MEDS: BISACODYL SUPP (10 MG) 10 MG/SUPP.RECT SUPP.RECT RC PRN (18:38)
[2018-06-16 20:00] VITALS: BP 102/57
[2018-06-17] VITALS (7 sets, daily range): BP systolic 102–120; BP diastolic 52–83
[2018-06-17] MEDS: IPRATROPIUM NEB FS 0.5 MG/2.5 ML AMPUL.NEB IH SCH ×4 (01:29→19:37)
[2018-06-17] MEDS: ALBUTEROL FS 2.5 MG/3 ML VIAL.NEB NEB SCH ×4 (01:29→19:37)
[2018-06-17] MEDS: OMEPRAZOLE 20 MG CAPSULE.DR GT SCH (05:03)
[2018-06-17] MEDS: LEVOTHYROXINE SODIUM 88 MCG TABLET GT SCH (05:03)
[2018-06-17] MEDS: MORPHINE SULFATE SOLN CONCENTRATED 20 MG/ML SL SCH ×2 (08:26→21:25)
[2018-06-17] MEDS: PROSTAT (PYXIS) 30 ML UDC GT SCH ×3 (08:26→16:23)
[2018-06-17] MEDS: LEVETIRACETAM SOL (5 ML) 100 MG/ML UDC GT SCH ×2 (08:26→21:25)
[2018-06-17] MEDS: ASCORBIC ACID 500 MG TABLET GT SCH (08:26)
[2018-06-17] MEDS: ACIDOPHILUS/BULGARICUS 1 EACH TAB.CHEW GT SCH (08:26)
[2018-06-17] MEDS: ZINC SULFATE 220 MG CAPSULE GT SCH (08:26)
[2018-06-17] MEDS: CHLORHEXIDINE GLUCONATE 15 ML UDC MM SCH ×2 (08:26→16:23)
[2018-06-17] MEDS: MULTIVIT W/MINERALS 1 TAB TABLET GT SCH (08:26)
[2018-06-17] MEDS: CARBOXYMETHYLCELLULOSE SODIUM 0.4 ML DROPERETTE EACHEYE SCH (08:26)
[2018-06-17] MEDS: COD LIVER OIL/ZINC OXIDE 120 GM TUBE TP SCH ×2 (08:27→21:25)
[2018-06-17] MEDS: HYDROGEN PEROXIDE 480 ML BOTTLE TP SCH ×2 (08:27→21:25)
[2018-06-17] MEDS: DAKINS QUARTER STRENGTH (0.125%) 480 ML BOTTLE TOP SCH ×2 (09:06→21:25)
[2018-06-17] MEDS: Z GUARD REMEDY 2 OZ OINT TP SCH ×2 (09:07→21:25)
[2018-06-17] MEDS: Z GUARD REMEDY 4 OZ OINT TP SCH ×2 (09:07→21:25)
[2018-06-17] MEDS: GLUCERNA 1.2 1,000 ML BOTTLE GT PRN (16:24)
[2018-06-17] MEDS: BISACODYL SUPP (10 MG) 10 MG/SUPP.RECT SUPP.RECT RC PRN (17:55)
[2018-06-18 00:21] VITALS: BP 114/69
[2018-06-18] MEDS: ALBUTEROL FS 2.5 MG/3 ML VIAL.NEB NEB SCH ×4 (01:48→19:55)
[2018-06-18] MEDS: IPRATROPIUM NEB FS 0.5 MG/2.5 ML AMPUL.NEB IH SCH ×4 (01:48→19:55)
[2018-06-18] MEDS: LEVOTHYROXINE SODIUM 88 MCG TABLET GT SCH (05:49)
[2018-06-18] MEDS: OMEPRAZOLE 20 MG CAPSULE.DR GT SCH (05:49)
[2018-06-18 06:08] VITALS: BP 116/64
[2018-06-18 07:55] VITALS: BP 113/58
[2018-06-18] MEDS: MORPHINE SULFATE SOLN CONCENTRATED 20 MG/ML SL SCH ×2 (08:57→20:41)
[2018-06-18] MEDS: CARBOXYMETHYLCELLULOSE SODIUM 0.4 ML DROPERETTE EACHEYE SCH (09:00)
[2018-06-18] MEDS: MULTIVIT W/MINERALS 1 TAB TABLET GT SCH (09:00)
[2018-06-18] MEDS: ZINC SULFATE 220 MG CAPSULE GT SCH (09:00)
[2018-06-18] MEDS: CHLORHEXIDINE GLUCONATE 15 ML UDC MM SCH ×2 (09:00→16:47)
[2018-06-18] MEDS: ACIDOPHILUS/BULGARICUS 1 EACH TAB.CHEW GT SCH (09:00)
[2018-06-18] MEDS: LEVETIRACETAM SOL (5 ML) 100 MG/ML UDC GT SCH ×2 (09:00→20:40)
[2018-06-18] MEDS: ASCORBIC ACID 500 MG TABLET GT SCH (09:00)
[2018-06-18] MEDS: PROSTAT (PYXIS) 30 ML UDC GT SCH ×3 (09:00→16:47)
[2018-06-18] MEDS: Z GUARD REMEDY 2 OZ OINT TP SCH (09:30)
[2018-06-18] MEDS: HYDROGEN PEROXIDE 480 ML BOTTLE TP SCH ×2 (09:30→20:42)
[2018-06-18] MEDS: COD LIVER OIL/ZINC OXIDE 120 GM TUBE TP SCH ×2 (09:30→20:42)
[2018-06-18] MEDS: DAKINS QUARTER STRENGTH (0.125%) 480 ML BOTTLE TOP SCH ×2 (09:30→20:41)
[2018-06-18] MEDS: Z GUARD REMEDY 4 OZ OINT TP SCH (09:30)
--- NOTE | 2018-06-18 10:50 | NUR ---
Received order from Dr Darryl Winters to change sacral periwound excoriation treatment from Z-guard to Mycolog cream.
[2018-06-18 12:00] VITALS: BP 107/64
--- NOTE | 2018-06-18 14:57 | NUR ---
JOSSE communicated to patient's daughter Reyna about the IDT mtg on Monday06/22/2017. Daughter will be attending over conference call.
[2018-06-18] MEDS: GLUCERNA 1.2 1,000 ML BOTTLE GT PRN (16:35)
[2018-06-18 18:00] VITALS: BP 121/60
[2018-06-18 19:48] VITALS: BP 109/61
[2018-06-18] MEDS: NYSTATIN/TRIAMCIN 15 GM CREAM 15 GM TUBE TP SCH (20:42)
[2018-06-19] VITALS: BP 104/72
[2018-06-19] MEDS: ALBUTEROL FS 2.5 MG/3 ML VIAL.NEB NEB SCH ×4 (01:43→20:09)
[2018-06-19] MEDS: IPRATROPIUM NEB FS 0.5 MG/2.5 ML AMPUL.NEB IH SCH ×4 (01:43→20:09)
[2018-06-19] MEDS: LEVOTHYROXINE SODIUM 88 MCG TABLET GT SCH (05:13)
[2018-06-19] MEDS: OMEPRAZOLE 20 MG CAPSULE.DR GT SCH (05:13)
[2018-06-19 06:00] VITALS: BP 107/69
[2018-06-19 07:43] VITALS: BP 111/72
[2018-06-19] MEDS: ASCORBIC ACID 500 MG TABLET GT SCH (09:18)
[2018-06-19] MEDS: ZINC SULFATE 220 MG CAPSULE GT SCH (09:18)
[2018-06-19] MEDS: LEVETIRACETAM SOL (5 ML) 100 MG/ML UDC GT SCH ×2 (09:18→21:12)
[2018-06-19] MEDS: ACIDOPHILUS/BULGARICUS 1 EACH TAB.CHEW GT SCH (09:18)
[2018-06-19] MEDS: PROSTAT (PYXIS) 30 ML UDC GT SCH ×3 (09:18→16:27)
[2018-06-19] MEDS: MULTIVIT W/MINERALS 1 TAB TABLET GT SCH (09:18)
[2018-06-19] MEDS: MORPHINE SULFATE SOLN CONCENTRATED 20 MG/ML SL SCH ×2 (09:18→21:12)
[2018-06-19] MEDS: CHLORHEXIDINE GLUCONATE 15 ML UDC MM SCH ×2 (09:18→16:27)
[2018-06-19] MEDS: CARBOXYMETHYLCELLULOSE SODIUM 0.4 ML DROPERETTE EACHEYE SCH (09:18)
[2018-06-19] MEDS: HYDROGEN PEROXIDE 480 ML BOTTLE TP SCH ×2 (09:50→21:13)
[2018-06-19] MEDS: NYSTATIN/TRIAMCIN 15 GM CREAM 15 GM TUBE TP SCH ×2 (09:50→21:13)
[2018-06-19] MEDS: COD LIVER OIL/ZINC OXIDE 120 GM TUBE TP SCH ×2 (09:50→21:13)
[2018-06-19] MEDS: DAKINS QUARTER STRENGTH (0.125%) 480 ML BOTTLE TOP SCH ×2 (09:50→21:13)
[2018-06-19 12:26] VITALS: BP 106/64
[2018-06-19] MEDS: GLUCERNA 1.2 1,000 ML BOTTLE GT PRN (16:23)
[2018-06-19 18:05] VITALS: BP 95/48
[2018-06-19 21:22] VITALS: BP 115/72
[2018-06-20] MEDS: IPRATROPIUM NEB FS 0.5 MG/2.5 ML AMPUL.NEB IH SCH ×4 (01:23→19:46)
[2018-06-20] MEDS: ALBUTEROL FS 2.5 MG/3 ML VIAL.NEB NEB SCH ×4 (01:23→19:46)
[2018-06-20 03:32] VITALS: BP 102/59
[2018-06-20] MEDS: LEVOTHYROXINE SODIUM 88 MCG TABLET GT SCH (05:35)
[2018-06-20] MEDS: OMEPRAZOLE 20 MG CAPSULE.DR GT SCH (05:35)
[2018-06-20 06:02] VITALS: BP 109/57
[2018-06-20 07:29] VITALS: BP 103/53
[2018-06-20] MEDS: ZINC SULFATE 220 MG CAPSULE GT SCH (09:45)
[2018-06-20] MEDS: MORPHINE SULFATE SOLN CONCENTRATED 20 MG/ML SL SCH ×2 (09:45→21:32)
[2018-06-20] MEDS: MULTIVIT W/MINERALS 1 TAB TABLET GT SCH (09:45)
[2018-06-20] MEDS: LEVETIRACETAM SOL (5 ML) 100 MG/ML UDC GT SCH ×2 (09:45→21:32)
[2018-06-20] MEDS: PROSTAT (PYXIS) 30 ML UDC GT SCH ×3 (09:45→17:08)
[2018-06-20] MEDS: ASCORBIC ACID 500 MG TABLET GT SCH (09:45)
[2018-06-20] MEDS: ACIDOPHILUS/BULGARICUS 1 EACH TAB.CHEW GT SCH (09:45)
[2018-06-20] MEDS: CHLORHEXIDINE GLUCONATE 15 ML UDC MM SCH ×2 (09:45→17:08)
[2018-06-20] MEDS: CARBOXYMETHYLCELLULOSE SODIUM 0.4 ML DROPERETTE EACHEYE SCH (09:45)
[2018-06-20] MEDS: DAKINS QUARTER STRENGTH (0.125%) 480 ML BOTTLE TOP SCH ×2 (10:15→21:35)
[2018-06-20] MEDS: COD LIVER OIL/ZINC OXIDE 120 GM TUBE TP SCH ×2 (10:15→21:35)
[2018-06-20] MEDS: HYDROGEN PEROXIDE 480 ML BOTTLE TP SCH ×2 (10:15→21:35)
[2018-06-20] MEDS: NYSTATIN/TRIAMCIN 15 GM CREAM 15 GM TUBE TP SCH ×2 (10:15→21:32)
[2018-06-20 12:00] VITALS: BP 103/56
[2018-06-20] MEDS: GLUCERNA 1.2 1,000 ML BOTTLE GT PRN (15:12)
[2018-06-20 18:00] VITALS: BP 108/56
--- NOTE | 2018-06-20 20:33 | NUR ---
PATIENT RECEIVED ON COOL AEROSOL @ 28%. AMBU BAG/BACK UP TRACH @ BEDSIDE. TX GIVEN, NO ADVERSE REACTIONS NOTED. SX DONE, TRACH SECURED AND PATENT. PATIENT STABLE. WILL MONITOR. Addendum: 06/20/18 at 2034 by LETITIA BENITES RT Amended: Links added.
[2018-06-20 20:45] VITALS: BP 123/64
[2018-06-21 00:03] VITALS: BP 119/61
[2018-06-21] MEDS: IPRATROPIUM NEB FS 0.5 MG/2.5 ML AMPUL.NEB IH SCH ×4 (01:38→19:18)
[2018-06-21] MEDS: ALBUTEROL FS 2.5 MG/3 ML VIAL.NEB NEB SCH ×4 (01:39→19:18)
[2018-06-21] MEDS: OMEPRAZOLE 20 MG CAPSULE.DR GT SCH (05:32)
[2018-06-21] MEDS: LEVOTHYROXINE SODIUM 88 MCG TABLET GT SCH (05:32)
[2018-06-21 06:17] VITALS: BP 128/57
[2018-06-21 07:36] VITALS: BP 116/56
[2018-06-21] MEDS: ACIDOPHILUS/BULGARICUS 1 EACH TAB.CHEW GT SCH (08:49)
[2018-06-21] MEDS: ZINC SULFATE 220 MG CAPSULE GT SCH (08:49)
[2018-06-21] MEDS: MORPHINE SULFATE SOLN CONCENTRATED 20 MG/ML SL SCH ×2 (08:49→21:48)
[2018-06-21] MEDS: MULTIVIT W/MINERALS 1 TAB TABLET GT SCH (08:49)
[2018-06-21] MEDS: LEVETIRACETAM SOL (5 ML) 100 MG/ML UDC GT SCH ×2 (08:49→21:48)
[2018-06-21] MEDS: ASCORBIC ACID 500 MG TABLET GT SCH (08:49)
[2018-06-21] MEDS: CARBOXYMETHYLCELLULOSE SODIUM 0.4 ML DROPERETTE EACHEYE SCH (08:49)
[2018-06-21] MEDS: CHLORHEXIDINE GLUCONATE 15 ML UDC MM SCH ×2 (08:49→17:55)
[2018-06-21] MEDS: PROSTAT (PYXIS) 30 ML UDC GT SCH ×3 (08:49→17:55)
[2018-06-21] MEDS: NYSTATIN/TRIAMCIN 15 GM CREAM 15 GM TUBE TP SCH ×2 (09:40→21:48)
[2018-06-21] MEDS: DAKINS QUARTER STRENGTH (0.125%) 480 ML BOTTLE TOP SCH ×2 (09:40→21:48)
[2018-06-21] MEDS: HYDROGEN PEROXIDE 480 ML BOTTLE TP SCH ×2 (09:40→21:48)
[2018-06-21] MEDS: COD LIVER OIL/ZINC OXIDE 120 GM TUBE TP SCH ×2 (09:40→21:48)
[2018-06-21 12:00] VITALS: BP 105/59
[2018-06-21] MEDS: GLUCERNA 1.2 1,000 ML BOTTLE GT PRN (14:32)
[2018-06-21 18:40] VITALS: BP 116/60
--- NOTE | 2018-06-21 20:18 | NUR ---
PATIENT RECEIVED 28% AEROSOL T-TUBE WITH NO DISTRESS NOTED. SUCTIONED FOR MINIMAL, THIN, YELLOW SECRETIONS. GIVEN IN-LINE TREATMENTS WITH NO ADVERSE REACTIONS. AMBU BAG AT BEDSIDE. Addendum: 06/21/18 at 2019 by IVAN TOLBERT RT Amended: Links added.
[2018-06-21 20:33] VITALS: BP 115/73
[2018-06-22] VITALS: BP 116/74
[2018-06-22] MEDS: hydrALAZINE HCL 10 MG TABLET GT PRN (00:21)
[2018-06-22] MEDS: ALBUTEROL FS 2.5 MG/3 ML VIAL.NEB NEB SCH ×4 (01:00→19:35)
[2018-06-22] MEDS: IPRATROPIUM NEB FS 0.5 MG/2.5 ML AMPUL.NEB IH SCH ×4 (01:00→19:35)
[2018-06-22 06:00] VITALS: BP 101/57
[2018-06-22] MEDS: LEVOTHYROXINE SODIUM 88 MCG TABLET GT SCH (06:08)
[2018-06-22] MEDS: OMEPRAZOLE 20 MG CAPSULE.DR GT SCH (06:08)
[2018-06-22 07:28] VITALS: BP 112/62
[2018-06-22] MEDS: MORPHINE SULFATE SOLN CONCENTRATED 20 MG/ML SL SCH ×2 (08:33→20:46)
[2018-06-22] MEDS: CHLORHEXIDINE GLUCONATE 15 ML UDC MM SCH ×2 (08:33→16:59)
[2018-06-22] MEDS: ZINC SULFATE 220 MG CAPSULE GT SCH (08:33)
[2018-06-22] MEDS: MULTIVIT W/MINERALS 1 TAB TABLET GT SCH (08:33)
[2018-06-22] MEDS: ASCORBIC ACID 500 MG TABLET GT SCH (08:33)
[2018-06-22] MEDS: ACIDOPHILUS/BULGARICUS 1 EACH TAB.CHEW GT SCH (08:33)
[2018-06-22] MEDS: LEVETIRACETAM SOL (5 ML) 100 MG/ML UDC GT SCH ×2 (08:33→20:46)
[2018-06-22] MEDS: PROSTAT (PYXIS) 30 ML UDC GT SCH ×3 (08:33→16:59)
[2018-06-22] MEDS: CARBOXYMETHYLCELLULOSE SODIUM 0.4 ML DROPERETTE EACHEYE SCH (08:33)
[2018-06-22] MEDS: HYDROGEN PEROXIDE 480 ML BOTTLE TP SCH ×2 (09:27→21:42)
[2018-06-22] MEDS: COD LIVER OIL/ZINC OXIDE 120 GM TUBE TP SCH ×2 (09:27→21:41)
[2018-06-22] MEDS: DAKINS QUARTER STRENGTH (0.125%) 480 ML BOTTLE TOP SCH ×2 (09:27→21:41)
[2018-06-22] MEDS: NYSTATIN/TRIAMCIN 15 GM CREAM 15 GM TUBE TP SCH ×2 (09:27→21:42)
[2018-06-22] MEDS: GLUCERNA 1.2 1,000 ML BOTTLE GT PRN (11:45)
[2018-06-22 12:05] VITALS: BP 124/60
--- NOTE | 2018-06-22 18:30 | NUR ---
Spoke with Reyna Galindo, daughter and updated her of patient's condition and what was discussed in IDT meeting. At this time, NNO given, resident has no episode of vomiting lately. Patient's periwound is responding to current treatment of Mycolog. At this time, resident's mental status has no changed.
[2018-06-22 18:45] VITALS: BP 97/57
[2018-06-22 20:01] VITALS: BP 117/61
[2018-06-23 00:25] VITALS: BP 109/71
[2018-06-23] MEDS: ALBUTEROL FS 2.5 MG/3 ML VIAL.NEB NEB SCH ×4 (01:02→20:18)
[2018-06-23] MEDS: IPRATROPIUM NEB FS 0.5 MG/2.5 ML AMPUL.NEB IH SCH ×4 (01:02→20:18)
[2018-06-23] MEDS: LEVOTHYROXINE SODIUM 88 MCG TABLET GT SCH (05:55)
[2018-06-23] MEDS: OMEPRAZOLE 20 MG CAPSULE.DR GT SCH (05:55)
--- NOTE | 2018-06-23 06:00 | NUR ---
PRINTED CIRCUIT BOARD ASSEMBLY REPAIRER NOTE: Jamil Cath dislodged, Inserted a new F/C Lithuanian 18/10 cc balloon as ordered. No distress, no discomfort noted.
[2018-06-23 06:07] VITALS: BP 93/65
[2018-06-23] MEDS: BISACODYL SUPP (10 MG) 10 MG/SUPP.RECT SUPP.RECT RC PRN (06:38)
[2018-06-23] MEDS: MORPHINE SULFATE SOLN CONCENTRATED 20 MG/ML SL SCH ×2 (08:45→21:07)
[2018-06-23] MEDS: LEVETIRACETAM SOL (5 ML) 100 MG/ML UDC GT SCH ×2 (08:45→21:07)
[2018-06-23] MEDS: ACIDOPHILUS/BULGARICUS 1 EACH TAB.CHEW GT SCH (08:45)
[2018-06-23] MEDS: CHLORHEXIDINE GLUCONATE 15 ML UDC MM SCH ×2 (08:45→17:05)
[2018-06-23] MEDS: MULTIVIT W/MINERALS 1 TAB TABLET GT SCH (08:45)
[2018-06-23] MEDS: ZINC SULFATE 220 MG CAPSULE GT SCH (08:45)
[2018-06-23] MEDS: ASCORBIC ACID 500 MG TABLET GT SCH (08:45)
[2018-06-23] MEDS: CARBOXYMETHYLCELLULOSE SODIUM 0.4 ML DROPERETTE EACHEYE SCH (08:45)
[2018-06-23] MEDS: PROSTAT (PYXIS) 30 ML UDC GT SCH ×3 (08:45→17:05)
[2018-06-23] MEDS: HYDROGEN PEROXIDE 480 ML BOTTLE TP SCH ×2 (09:46→21:07)
[2018-06-23] MEDS: COD LIVER OIL/ZINC OXIDE 120 GM TUBE TP SCH ×2 (09:46→21:50)
[2018-06-23] MEDS: DAKINS QUARTER STRENGTH (0.125%) 480 ML BOTTLE TOP SCH ×2 (09:46→21:50)
[2018-06-23] MEDS: NYSTATIN/TRIAMCIN 15 GM CREAM 15 GM TUBE TP SCH ×2 (09:46→21:50)
[2018-06-23 12:55] VITALS: BP 116/68
[2018-06-23 13:38] VITALS: BP 100/61
[2018-06-23] MEDS: GLUCERNA 1.2 1,000 ML BOTTLE GT PRN (17:05)
[2018-06-23 18:45] VITALS: BP 109/58
[2018-06-23 20:28] VITALS: BP 109/64
[2018-06-24 00:11] VITALS: BP 107/70
[2018-06-24] MEDS: IPRATROPIUM NEB FS 0.5 MG/2.5 ML AMPUL.NEB IH SCH ×4 (00:38→19:27)
[2018-06-24] MEDS: ALBUTEROL FS 2.5 MG/3 ML VIAL.NEB NEB SCH ×4 (00:38→19:27)
[2018-06-24] MEDS: LEVOTHYROXINE SODIUM 88 MCG TABLET GT SCH (05:39)
[2018-06-24] MEDS: OMEPRAZOLE 20 MG CAPSULE.DR GT SCH (05:39)
[2018-06-24 06:15] VITALS: BP 121/65
[2018-06-24 07:29] VITALS: BP 101/49
[2018-06-24] MEDS: ASCORBIC ACID 500 MG TABLET GT SCH (08:57)
[2018-06-24] MEDS: ZINC SULFATE 220 MG CAPSULE GT SCH (08:57)
[2018-06-24] MEDS: CARBOXYMETHYLCELLULOSE SODIUM 0.4 ML DROPERETTE EACHEYE SCH (08:57)
[2018-06-24] MEDS: COD LIVER OIL/ZINC OXIDE 120 GM TUBE TP SCH ×2 (08:57→20:56)
[2018-06-24] MEDS: MULTIVIT W/MINERALS 1 TAB TABLET GT SCH (08:57)
[2018-06-24] MEDS: ACIDOPHILUS/BULGARICUS 1 EACH TAB.CHEW GT SCH (08:57)
[2018-06-24] MEDS: DAKINS QUARTER STRENGTH (0.125%) 480 ML BOTTLE TOP SCH ×2 (08:57→20:56)
[2018-06-24] MEDS: LEVETIRACETAM SOL (5 ML) 100 MG/ML UDC GT SCH ×2 (08:57→20:55)
[2018-06-24] MEDS: MORPHINE SULFATE SOLN CONCENTRATED 20 MG/ML SL SCH ×2 (08:57→20:55)
[2018-06-24] MEDS: CHLORHEXIDINE GLUCONATE 15 ML UDC MM SCH ×2 (08:57→17:56)
[2018-06-24] MEDS: PROSTAT (PYXIS) 30 ML UDC GT SCH ×3 (08:57→17:56)
[2018-06-24] MEDS: HYDROGEN PEROXIDE 480 ML BOTTLE TP SCH ×2 (08:58→21:00)
[2018-06-24] MEDS: NYSTATIN/TRIAMCIN 15 GM CREAM 15 GM TUBE TP SCH ×2 (08:58→21:00)
[2018-06-24 12:21] VITALS: BP 108/76
[2018-06-24] MEDS: GLUCERNA 1.2 1,000 ML BOTTLE GT PRN (17:56)
[2018-06-24 18:18] VITALS: BP 111/67
[2018-06-24 19:58] VITALS: BP 99/55
--- NOTE | 2018-06-24 21:06 | NUR ---
RT NOTE PATIENT WAS RECEIVED ON 28% COOL AEROSOL. HHN INLINE TREATMENT WAS GIVEN ,NO ADVERSE REACTION NOTED. PRN SUCTION WAS DONE. TRACH TUBE PATENT AND SECURED. AMBUBAG AND SPARE TRACH AT BED SIDE. NO RESPIRATORY DISTRESS NOTED AT THIS TIME.WILL CONTINUE TO MONITOR PATIENT. Addendum: 06/24/18 at 2107 by DAKSHA SHARP RT Amended: Links added.
[2018-06-25] VITALS (7 sets, daily range): BP systolic 102–119; BP diastolic 54–70
[2018-06-25] MEDS: IPRATROPIUM NEB FS 0.5 MG/2.5 ML AMPUL.NEB IH SCH ×4 (01:23→19:57)
[2018-06-25] MEDS: ALBUTEROL FS 2.5 MG/3 ML VIAL.NEB NEB SCH ×4 (01:23→19:57)
[2018-06-25] MEDS: OMEPRAZOLE 20 MG CAPSULE.DR GT SCH (05:49)
[2018-06-25] MEDS: LEVOTHYROXINE SODIUM 88 MCG TABLET GT SCH (05:49)
[2018-06-25] MEDS: CARBOXYMETHYLCELLULOSE SODIUM 0.4 ML DROPERETTE EACHEYE SCH (09:00)
[2018-06-25] MEDS: LEVETIRACETAM SOL (5 ML) 100 MG/ML UDC GT SCH ×2 (09:00→21:18)
[2018-06-25] MEDS: MORPHINE SULFATE SOLN CONCENTRATED 20 MG/ML SL SCH ×2 (09:00→21:18)
[2018-06-25] MEDS: ACIDOPHILUS/BULGARICUS 1 EACH TAB.CHEW GT SCH (09:00)
[2018-06-25] MEDS: ASCORBIC ACID 500 MG TABLET GT SCH (09:00)
[2018-06-25] MEDS: ZINC SULFATE 220 MG CAPSULE GT SCH (09:00)
[2018-06-25] MEDS: CHLORHEXIDINE GLUCONATE 15 ML UDC MM SCH ×2 (09:00→16:13)
[2018-06-25] MEDS: MULTIVIT W/MINERALS 1 TAB TABLET GT SCH (09:00)
[2018-06-25] MEDS: PROSTAT (PYXIS) 30 ML UDC GT SCH ×3 (09:00→16:13)
[2018-06-25] MEDS: HYDROGEN PEROXIDE 480 ML BOTTLE TP SCH ×2 (10:00→21:18)
[2018-06-25] MEDS: COD LIVER OIL/ZINC OXIDE 120 GM TUBE TP SCH ×2 (10:00→21:18)
[2018-06-25] MEDS: NYSTATIN/TRIAMCIN 15 GM CREAM 15 GM TUBE TP SCH ×2 (10:00→21:18)
[2018-06-25] MEDS: GLUCERNA 1.2 1,000 ML BOTTLE GT PRN (15:43)
[2018-06-26] MEDS: ALBUTEROL FS 2.5 MG/3 ML VIAL.NEB NEB SCH ×4 (01:39→20:12)
[2018-06-26] MEDS: IPRATROPIUM NEB FS 0.5 MG/2.5 ML AMPUL.NEB IH SCH ×4 (01:39→20:12)
[2018-06-26 03:08] VITALS: BP 110/76
[2018-06-26] MEDS: LEVOTHYROXINE SODIUM 88 MCG TABLET GT SCH (06:15)
[2018-06-26] MEDS: OMEPRAZOLE 20 MG CAPSULE.DR GT SCH (06:15)
[2018-06-26 06:22] VITALS: BP 122/74
[2018-06-26 07:49] VITALS: BP 98/52
[2018-06-26] MEDS: ZINC SULFATE 220 MG CAPSULE GT SCH (09:07)
[2018-06-26] MEDS: LEVETIRACETAM SOL (5 ML) 100 MG/ML UDC GT SCH ×2 (09:07→21:27)
[2018-06-26] MEDS: MULTIVIT W/MINERALS 1 TAB TABLET GT SCH (09:07)
[2018-06-26] MEDS: ACIDOPHILUS/BULGARICUS 1 EACH TAB.CHEW GT SCH (09:07)
[2018-06-26] MEDS: PROSTAT (PYXIS) 30 ML UDC GT SCH ×3 (09:07→17:11)
[2018-06-26] MEDS: CHLORHEXIDINE GLUCONATE 15 ML UDC MM SCH ×2 (09:07→17:11)
[2018-06-26] MEDS: MORPHINE SULFATE SOLN CONCENTRATED 20 MG/ML SL SCH ×2 (09:07→21:27)
[2018-06-26] MEDS: CARBOXYMETHYLCELLULOSE SODIUM 0.4 ML DROPERETTE EACHEYE SCH (09:07)
[2018-06-26] MEDS: ASCORBIC ACID 500 MG TABLET GT SCH (09:07)
[2018-06-26] MEDS: COD LIVER OIL/ZINC OXIDE 120 GM TUBE TP SCH ×2 (09:40→21:27)
[2018-06-26] MEDS: HYDROGEN PEROXIDE 480 ML BOTTLE TP SCH ×2 (09:40→21:27)
[2018-06-26] MEDS: NYSTATIN/TRIAMCIN 15 GM CREAM 15 GM TUBE TP SCH ×2 (09:40→21:27)
[2018-06-26 12:15] VITALS: BP 109/58
[2018-06-26] MEDS: GLUCERNA 1.2 1,000 ML BOTTLE GT PRN (18:07)
[2018-06-26 18:29] VITALS: BP 124/68
[2018-06-26 20:42] VITALS: BP 119/68
[2018-06-27] MEDS: ALBUTEROL FS 2.5 MG/3 ML VIAL.NEB NEB SCH ×4 (00:50→20:02)
[2018-06-27] MEDS: IPRATROPIUM NEB FS 0.5 MG/2.5 ML AMPUL.NEB IH SCH ×4 (00:50→20:02)
[2018-06-27 03:32] VITALS: BP 116/64
[2018-06-27] MEDS: OMEPRAZOLE 20 MG CAPSULE.DR GT SCH (05:50)
[2018-06-27] MEDS: LEVOTHYROXINE SODIUM 88 MCG TABLET GT SCH (05:50)
[2018-06-27 06:11] VITALS: BP 109/66
[2018-06-27 07:41] VITALS: BP 103/52
[2018-06-27] MEDS: CARBOXYMETHYLCELLULOSE SODIUM 0.4 ML DROPERETTE EACHEYE SCH (08:20)
[2018-06-27] MEDS: ACIDOPHILUS/BULGARICUS 1 EACH TAB.CHEW GT SCH (08:21)
[2018-06-27] MEDS: MULTIVIT W/MINERALS 1 TAB TABLET GT SCH (08:21)
[2018-06-27] MEDS: CHLORHEXIDINE GLUCONATE 15 ML UDC MM SCH ×2 (08:21→16:06)
[2018-06-27] MEDS: ZINC SULFATE 220 MG CAPSULE GT SCH (08:21)
[2018-06-27] MEDS: ASCORBIC ACID 500 MG TABLET GT SCH (08:21)
[2018-06-27] MEDS: LEVETIRACETAM SOL (5 ML) 100 MG/ML UDC GT SCH ×2 (08:21→21:38)
[2018-06-27] MEDS: PROSTAT (PYXIS) 30 ML UDC GT SCH ×3 (08:21→16:06)
[2018-06-27] MEDS: MORPHINE SULFATE SOLN CONCENTRATED 20 MG/ML SL SCH ×2 (08:21→21:39)
[2018-06-27] MEDS: HYDROGEN PEROXIDE 480 ML BOTTLE TP SCH ×2 (09:00→22:00)
[2018-06-27] MEDS: COD LIVER OIL/ZINC OXIDE 120 GM TUBE TP SCH ×2 (09:00→22:00)
[2018-06-27] MEDS: NYSTATIN/TRIAMCIN 15 GM CREAM 15 GM TUBE TP SCH ×2 (09:00→22:00)
[2018-06-27 12:00] VITALS: BP 110/60
[2018-06-27] MEDS: GLUCERNA 1.2 1,000 ML BOTTLE GT PRN (13:34)
[2018-06-27 18:00] VITALS: BP 103/60
[2018-06-27 20:23] VITALS: BP 123/58
[2018-06-28 00:20] VITALS: BP 93/53
[2018-06-28] MEDS: IPRATROPIUM NEB FS 0.5 MG/2.5 ML AMPUL.NEB IH SCH ×4 (01:19→19:37)
[2018-06-28] MEDS: ALBUTEROL FS 2.5 MG/3 ML VIAL.NEB NEB SCH ×4 (01:19→19:37)
[2018-06-28] MEDS: OMEPRAZOLE 20 MG CAPSULE.DR GT SCH (05:44)
[2018-06-28] MEDS: LEVOTHYROXINE SODIUM 88 MCG TABLET GT SCH (05:44)
[2018-06-28 06:09] VITALS: BP 124/56
[2018-06-28 07:37] VITALS: BP 117/49
[2018-06-28] MEDS: MULTIVIT W/MINERALS 1 TAB TABLET GT SCH (08:23)
[2018-06-28] MEDS: ZINC SULFATE 220 MG CAPSULE GT SCH (08:23)
[2018-06-28] MEDS: LEVETIRACETAM SOL (5 ML) 100 MG/ML UDC GT SCH ×2 (08:23→20:46)
[2018-06-28] MEDS: MORPHINE SULFATE SOLN CONCENTRATED 20 MG/ML SL SCH ×2 (08:23→20:46)
[2018-06-28] MEDS: CARBOXYMETHYLCELLULOSE SODIUM 0.4 ML DROPERETTE EACHEYE SCH (08:23)
[2018-06-28] MEDS: CHLORHEXIDINE GLUCONATE 15 ML UDC MM SCH ×2 (08:23→17:49)
[2018-06-28] MEDS: ACIDOPHILUS/BULGARICUS 1 EACH TAB.CHEW GT SCH (08:23)
[2018-06-28] MEDS: ASCORBIC ACID 500 MG TABLET GT SCH (08:23)
[2018-06-28] MEDS: PROSTAT (PYXIS) 30 ML UDC GT SCH ×3 (08:23→17:49)
[2018-06-28] MEDS: COD LIVER OIL/ZINC OXIDE 120 GM TUBE TP SCH ×2 (09:55→20:47)
[2018-06-28] MEDS: HYDROGEN PEROXIDE 480 ML BOTTLE TP SCH ×2 (09:56→20:47)
[2018-06-28] MEDS: NYSTATIN/TRIAMCIN 15 GM CREAM 15 GM TUBE TP SCH ×2 (09:56→20:47)
[2018-06-28 12:00] VITALS: BP 113/52
[2018-06-28] MEDS: GLUCERNA 1.2 1,000 ML BOTTLE GT PRN (13:00)
[2018-06-28 18:02] VITALS: BP 99/60
[2018-06-28 20:39] VITALS: BP 111/62
[2018-06-28] MEDS: DAKINS QUARTER STRENGTH (0.125%) 480 ML BOTTLE TOP SCH (20:47)
[2018-06-29 00:05] VITALS: BP 112/63
[2018-06-29] MEDS: ALBUTEROL FS 2.5 MG/3 ML VIAL.NEB NEB SCH ×4 (01:15→19:43)
[2018-06-29] MEDS: IPRATROPIUM NEB FS 0.5 MG/2.5 ML AMPUL.NEB IH SCH ×4 (01:15→19:43)
[2018-06-29] MEDS: OMEPRAZOLE 20 MG CAPSULE.DR GT SCH (05:28)
[2018-06-29] MEDS: LEVOTHYROXINE SODIUM 88 MCG TABLET GT SCH (05:28)
[2018-06-29 06:05] VITALS: BP 120/72
[2018-06-29 07:21] VITALS: BP 107/43
--- NOTE | 2018-06-29 07:50 | NUR ---
PT RECEIVED ON COOL AEROSOL 5L 28%. NO RESP DISTRESS OR SOB NOTED AT THIS TIME. PT SX'D. BREATHING TX GIVEN, NO ADVERSE REACTIONS NOTED. SPARE TRACH AND AMBU BAG ARE AT BEDSIDE. WILL CONT TO MONITOR PT. VENT IS PLUGGED INTO RED OUTLET AND ALARMS ARE ON AND AUDIBLE. Addendum: 06/29/18 at 0751 by ZANDER LUONG RT Amended: Links added.
[2018-06-29] MEDS: COD LIVER OIL/ZINC OXIDE 120 GM TUBE TP SCH ×2 (09:00→20:43)
[2018-06-29] MEDS: NYSTATIN/TRIAMCIN 15 GM CREAM 15 GM TUBE TP SCH ×2 (09:00→20:43)
[2018-06-29] MEDS: DAKINS QUARTER STRENGTH (0.125%) 480 ML BOTTLE TOP SCH ×2 (09:00→20:43)
[2018-06-29] MEDS: HYDROGEN PEROXIDE 480 ML BOTTLE TP SCH ×2 (09:00→20:43)
[2018-06-29] MEDS: PROSTAT (PYXIS) 30 ML UDC GT SCH ×3 (09:45→16:34)
[2018-06-29] MEDS: LEVETIRACETAM SOL (5 ML) 100 MG/ML UDC GT SCH ×2 (09:45→20:43)
[2018-06-29] MEDS: CARBOXYMETHYLCELLULOSE SODIUM 0.4 ML DROPERETTE EACHEYE SCH (09:45)
[2018-06-29] MEDS: ACIDOPHILUS/BULGARICUS 1 EACH TAB.CHEW GT SCH (09:45)
[2018-06-29] MEDS: MORPHINE SULFATE SOLN CONCENTRATED 20 MG/ML SL SCH ×2 (09:46→20:43)
[2018-06-29] MEDS: ASCORBIC ACID 500 MG TABLET GT SCH (09:46)
[2018-06-29] MEDS: CHLORHEXIDINE GLUCONATE 15 ML UDC MM SCH ×2 (09:46→16:33)
[2018-06-29] MEDS: ZINC SULFATE 220 MG CAPSULE GT SCH (09:46)
[2018-06-29] MEDS: MULTIVIT W/MINERALS 1 TAB TABLET GT SCH (09:46)
[2018-06-29] MEDS: GLUCERNA 1.2 1,000 ML BOTTLE GT PRN (10:55)
[2018-06-29 12:00] VITALS: BP 108/59
[2018-06-29 18:58] VITALS: BP 99/57
[2018-06-29 20:09] VITALS: BP 125/53
[2018-06-30 00:21] VITALS: BP 109/62
[2018-06-30] MEDS: ALBUTEROL FS 2.5 MG/3 ML VIAL.NEB NEB SCH ×4 (02:17→19:34)
[2018-06-30] MEDS: IPRATROPIUM NEB FS 0.5 MG/2.5 ML AMPUL.NEB IH SCH ×4 (02:17→19:34)
[2018-06-30] MEDS: OMEPRAZOLE 20 MG CAPSULE.DR GT SCH (05:20)
[2018-06-30] MEDS: LEVOTHYROXINE SODIUM 88 MCG TABLET GT SCH (05:20)
[2018-06-30 06:11] VITALS: BP 117/70
[2018-06-30 08:11] VITALS: BP 107/46
[2018-06-30] MEDS: CARBOXYMETHYLCELLULOSE SODIUM 0.4 ML DROPERETTE EACHEYE SCH (08:19)
[2018-06-30] MEDS: PROSTAT (PYXIS) 30 ML UDC GT SCH ×3 (08:20→16:53)
[2018-06-30] MEDS: ACIDOPHILUS/BULGARICUS 1 EACH TAB.CHEW GT SCH (08:20)
[2018-06-30] MEDS: LEVETIRACETAM SOL (5 ML) 100 MG/ML UDC GT SCH ×2 (08:20→20:45)
[2018-06-30] MEDS: MORPHINE SULFATE SOLN CONCENTRATED 20 MG/ML SL SCH ×2 (08:24→20:45)
[2018-06-30] MEDS: ASCORBIC ACID 500 MG TABLET GT SCH (08:24)
[2018-06-30] MEDS: MULTIVIT W/MINERALS 1 TAB TABLET GT SCH (08:24)
[2018-06-30] MEDS: ZINC SULFATE 220 MG CAPSULE GT SCH (08:24)
[2018-06-30] MEDS: CHLORHEXIDINE GLUCONATE 15 ML UDC MM SCH ×2 (08:24→16:53)
[2018-06-30] MEDS: NYSTATIN/TRIAMCIN 15 GM CREAM 15 GM TUBE TP SCH ×2 (09:00→20:46)
[2018-06-30] MEDS: DAKINS QUARTER STRENGTH (0.125%) 480 ML BOTTLE TOP SCH ×2 (09:00→20:45)
[2018-06-30] MEDS: COD LIVER OIL/ZINC OXIDE 120 GM TUBE TP SCH ×2 (09:00→20:46)
[2018-06-30] MEDS: HYDROGEN PEROXIDE 480 ML BOTTLE TP SCH ×2 (09:00→20:46)
[2018-06-30] MEDS: ONDANSETRON 4 MG TAB.RAPDIS GT PRN (10:00)
--- NOTE | 2018-06-30 12:00 | NUR ---
Notified Dr. Ross, patient vomited large amount of undigested formula after tracheal suctioning. Oral suctioning done staff changed linen and gown. No s/s of aspiration. Obtained clear secretions from tracheal suctioning. assessed patient , new order for Reglan 10 mg /GT Q 8 hours x 1 week for nausea/vomiting. Notified Reyna, responsible green party of vomiting episode and new order. Appreciated the call.
[2018-06-30 12:05] VITALS: BP 108/56
[2018-06-30] MEDS ORDERED: METOCLOPRAMIDE HCL 10 MG TABLET GT PRN (14:00)
[2018-06-30] MEDS: METOCLOPRAMIDE HCL 10 MG TABLET GT SCH ×2 (14:02→21:03)
[2018-06-30] MEDS: GLUCERNA 1.2 1,000 ML BOTTLE GT PRN (15:39)
[2018-06-30 18:10] VITALS: BP 112/55
[2018-06-30 19:48] VITALS: BP 105/57
[2018-06-30] MEDS: POVIDONE-IODINE OINT 28.4 GM TUBE TP SCH (20:45)
[2018-07-01 00:32] VITALS: BP 104/53
[2018-07-01] MEDS: IPRATROPIUM NEB FS 0.5 MG/2.5 ML AMPUL.NEB IH SCH ×4 (01:27→19:38)
[2018-07-01] MEDS: ALBUTEROL FS 2.5 MG/3 ML VIAL.NEB NEB SCH ×4 (01:27→19:38)
[2018-07-01] MEDS: LEVOTHYROXINE SODIUM 88 MCG TABLET GT SCH (05:10)
[2018-07-01] MEDS: METOCLOPRAMIDE HCL 10 MG TABLET GT SCH ×3 (05:10→22:04)
[2018-07-01] MEDS: OMEPRAZOLE 20 MG CAPSULE.DR GT SCH (05:10)
[2018-07-01 06:02] VITALS: BP 101/56
[2018-07-01 07:22] VITALS: BP 110/48
[2018-07-01] MEDS: COD LIVER OIL/ZINC OXIDE 120 GM TUBE TP SCH ×2 (09:00→20:55)
[2018-07-01] MEDS: HYDROGEN PEROXIDE 480 ML BOTTLE TP SCH ×2 (09:00→20:55)
[2018-07-01] MEDS: DAKINS QUARTER STRENGTH (0.125%) 480 ML BOTTLE TOP SCH ×2 (09:00→20:55)
[2018-07-01] MEDS: POVIDONE-IODINE OINT 28.4 GM TUBE TP SCH ×2 (09:00→20:55)
[2018-07-01] MEDS: NYSTATIN/TRIAMCIN 15 GM CREAM 15 GM TUBE TP SCH ×2 (09:00→20:55)
[2018-07-01] MEDS: CARBOXYMETHYLCELLULOSE SODIUM 0.4 ML DROPERETTE EACHEYE SCH (09:42)
[2018-07-01] MEDS: LEVETIRACETAM SOL (5 ML) 100 MG/ML UDC GT SCH ×2 (09:43→20:54)
[2018-07-01] MEDS: ACIDOPHILUS/BULGARICUS 1 EACH TAB.CHEW GT SCH (09:43)
[2018-07-01] MEDS: ZINC SULFATE 220 MG CAPSULE GT SCH (09:44)
[2018-07-01] MEDS: MORPHINE SULFATE SOLN CONCENTRATED 20 MG/ML SL SCH ×2 (09:44→20:54)
[2018-07-01] MEDS: MULTIVIT W/MINERALS 1 TAB TABLET GT SCH (09:44)
[2018-07-01] MEDS: ASCORBIC ACID 500 MG TABLET GT SCH (09:44)
[2018-07-01] MEDS: CHLORHEXIDINE GLUCONATE 15 ML UDC MM SCH ×2 (09:44→16:46)
[2018-07-01] MEDS: PROSTAT (PYXIS) 30 ML UDC GT SCH ×3 (09:44→16:46)
[2018-07-01 12:00] VITALS: BP 106/60
[2018-07-01] MEDS: GLUCERNA 1.2 1,000 ML BOTTLE GT PRN (16:46)
[2018-07-01 18:05] VITALS: BP 105/58
[2018-07-01 20:02] VITALS: BP 102/53
[2018-07-02] VITALS: BP 107/56
[2018-07-02] MEDS: IPRATROPIUM NEB FS 0.5 MG/2.5 ML AMPUL.NEB IH SCH ×4 (01:40→19:17)
[2018-07-02] MEDS: ALBUTEROL FS 2.5 MG/3 ML VIAL.NEB NEB SCH ×4 (01:40→19:17)
[2018-07-02] MEDS: OMEPRAZOLE 20 MG CAPSULE.DR GT SCH (05:44)
[2018-07-02] MEDS: LEVOTHYROXINE SODIUM 88 MCG TABLET GT SCH (05:44)
[2018-07-02] MEDS: hydrALAZINE HCL 10 MG TABLET GT PRN (05:44)
[2018-07-02] MEDS: METOCLOPRAMIDE HCL 10 MG TABLET GT SCH ×3 (05:44→21:16)
[2018-07-02 06:00] VITALS: BP 110/59
[2018-07-02 07:41] VITALS: BP 125/52
[2018-07-02] MEDS: CARBOXYMETHYLCELLULOSE SODIUM 0.4 ML DROPERETTE EACHEYE SCH (09:18)
[2018-07-02] MEDS: PROSTAT (PYXIS) 30 ML UDC GT SCH ×3 (09:19→16:32)
[2018-07-02] MEDS: LEVETIRACETAM SOL (5 ML) 100 MG/ML UDC GT SCH ×2 (09:19→20:35)
[2018-07-02] MEDS: MULTIVIT W/MINERALS 1 TAB TABLET GT SCH (09:19)
[2018-07-02] MEDS: MORPHINE SULFATE SOLN CONCENTRATED 20 MG/ML SL SCH ×2 (09:19→20:36)
[2018-07-02] MEDS: ASCORBIC ACID 500 MG TABLET GT SCH (09:19)
[2018-07-02] MEDS: CHLORHEXIDINE GLUCONATE 15 ML UDC MM SCH ×2 (09:19→16:32)
[2018-07-02] MEDS: ACIDOPHILUS/BULGARICUS 1 EACH TAB.CHEW GT SCH (09:19)
[2018-07-02] MEDS: ZINC SULFATE 220 MG CAPSULE GT SCH (09:19)
[2018-07-02] MEDS: COD LIVER OIL/ZINC OXIDE 120 GM TUBE TP SCH ×2 (10:00→21:12)
[2018-07-02] MEDS: HYDROGEN PEROXIDE 480 ML BOTTLE TP SCH ×2 (10:00→21:12)
[2018-07-02] MEDS: POVIDONE-IODINE OINT 28.4 GM TUBE TP SCH ×2 (10:00→21:12)
[2018-07-02] MEDS: DAKINS QUARTER STRENGTH (0.125%) 480 ML BOTTLE TOP SCH (10:00)
[2018-07-02] MEDS: NYSTATIN/TRIAMCIN 15 GM CREAM 15 GM TUBE TP SCH ×2 (10:00→21:12)
[2018-07-02 12:00] VITALS: BP 103/60
[2018-07-02] MEDS: GLUCERNA 1.2 1,000 ML BOTTLE GT PRN (15:05)
[2018-07-02 18:00] VITALS: BP 110/57
[2018-07-02 20:03] VITALS: BP 101/59
[2018-07-03 00:51] VITALS: BP 104/58
[2018-07-03] MEDS: ALBUTEROL FS 2.5 MG/3 ML VIAL.NEB NEB SCH ×4 (01:40→19:29)
[2018-07-03] MEDS: IPRATROPIUM NEB FS 0.5 MG/2.5 ML AMPUL.NEB IH SCH ×4 (01:40→19:29)
[2018-07-03] MEDS: LEVOTHYROXINE SODIUM 88 MCG TABLET GT SCH (05:26)
[2018-07-03] MEDS: OMEPRAZOLE 20 MG CAPSULE.DR GT SCH (05:26)
[2018-07-03] MEDS: METOCLOPRAMIDE HCL 10 MG TABLET GT SCH ×3 (05:29→21:06)
[2018-07-03 06:16] VITALS: BP 111/56
[2018-07-03 07:26] VITALS: BP 119/59
[2018-07-03] MEDS: ZINC SULFATE 220 MG CAPSULE GT SCH (08:32)
[2018-07-03] MEDS: CARBOXYMETHYLCELLULOSE SODIUM 0.4 ML DROPERETTE EACHEYE SCH (08:32)
[2018-07-03] MEDS: PROSTAT (PYXIS) 30 ML UDC GT SCH ×3 (08:32→16:52)
[2018-07-03] MEDS: LEVETIRACETAM SOL (5 ML) 100 MG/ML UDC GT SCH ×2 (08:32→20:29)
[2018-07-03] MEDS: ACIDOPHILUS/BULGARICUS 1 EACH TAB.CHEW GT SCH (08:32)
[2018-07-03] MEDS: MULTIVIT W/MINERALS 1 TAB TABLET GT SCH (08:32)
[2018-07-03] MEDS: CHLORHEXIDINE GLUCONATE 15 ML UDC MM SCH ×2 (08:32→16:52)
[2018-07-03] MEDS: ASCORBIC ACID 500 MG TABLET GT SCH (08:32)
[2018-07-03] MEDS: MORPHINE SULFATE SOLN CONCENTRATED 20 MG/ML SL SCH ×2 (08:33→20:29)
[2018-07-03] MEDS: COD LIVER OIL/ZINC OXIDE 120 GM TUBE TP SCH ×2 (09:00→21:06)
[2018-07-03] MEDS: POVIDONE-IODINE OINT 28.4 GM TUBE TP SCH ×2 (09:00→21:06)
[2018-07-03] MEDS: NYSTATIN/TRIAMCIN 15 GM CREAM 15 GM TUBE TP SCH ×2 (09:00→21:06)
[2018-07-03] MEDS: HYDROGEN PEROXIDE 480 ML BOTTLE TP SCH ×2 (09:00→21:06)
[2018-07-03] MEDS: THERAHONEY GEL 1.5 OZ TUBE TP SCH (09:00)
[2018-07-03 13:44] VITALS: BP 94/68
[2018-07-03 18:24] VITALS: BP 105/45
[2018-07-03 19:41] VITALS: BP 114/56
[2018-07-04 00:24] VITALS: BP 119/56
[2018-07-04] MEDS: ALBUTEROL FS 2.5 MG/3 ML VIAL.NEB NEB SCH ×4 (01:15→19:42)
[2018-07-04] MEDS: IPRATROPIUM NEB FS 0.5 MG/2.5 ML AMPUL.NEB IH SCH ×4 (01:15→19:42)
[2018-07-04] MEDS: METOCLOPRAMIDE HCL 10 MG TABLET GT SCH ×3 (05:18→21:17)
[2018-07-04] MEDS: LEVOTHYROXINE SODIUM 88 MCG TABLET GT SCH (05:18)
[2018-07-04] MEDS: OMEPRAZOLE 20 MG CAPSULE.DR GT SCH (05:18)
[2018-07-04 06:29] VITALS: BP 114/58
[2018-07-04 07:53] VITALS: BP 117/47
[2018-07-04] MEDS: ZINC SULFATE 220 MG CAPSULE GT SCH (08:39)
[2018-07-04] MEDS: ACIDOPHILUS/BULGARICUS 1 EACH TAB.CHEW GT SCH (08:39)
[2018-07-04] MEDS: MORPHINE SULFATE SOLN CONCENTRATED 20 MG/ML SL SCH ×2 (08:39→20:33)
[2018-07-04] MEDS: CARBOXYMETHYLCELLULOSE SODIUM 0.4 ML DROPERETTE EACHEYE SCH (08:39)
[2018-07-04] MEDS: LEVETIRACETAM SOL (5 ML) 100 MG/ML UDC GT SCH ×2 (08:39→20:33)
[2018-07-04] MEDS: CHLORHEXIDINE GLUCONATE 15 ML UDC MM SCH ×2 (08:39→16:49)
[2018-07-04] MEDS: PROSTAT (PYXIS) 30 ML UDC GT SCH ×3 (08:39→16:49)
[2018-07-04] MEDS: MULTIVIT W/MINERALS 1 TAB TABLET GT SCH (08:39)
[2018-07-04] MEDS: ASCORBIC ACID 500 MG TABLET GT SCH (08:39)
[2018-07-04] MEDS: HYDROGEN PEROXIDE 480 ML BOTTLE TP SCH ×2 (09:00→21:17)
[2018-07-04] MEDS: NYSTATIN/TRIAMCIN 15 GM CREAM 15 GM TUBE TP SCH ×2 (09:00→21:17)
[2018-07-04] MEDS: THERAHONEY GEL 1.5 OZ TUBE TP SCH ×2 (09:00→21:10)
[2018-07-04] MEDS: POVIDONE-IODINE OINT 28.4 GM TUBE TP SCH ×2 (09:00→21:17)
[2018-07-04] MEDS: COD LIVER OIL/ZINC OXIDE 120 GM TUBE TP SCH ×2 (09:00→21:17)
[2018-07-04 18:26] VITALS: BP_SYST 117; BP_SYST 122; BP_DIAS 47; BP_DIAS 62
[2018-07-04 19:50] VITALS: BP 104/54
[2018-07-05 00:43] VITALS: BP 106/56
[2018-07-05] MEDS: IPRATROPIUM NEB FS 0.5 MG/2.5 ML AMPUL.NEB IH SCH ×4 (02:03→20:03)
[2018-07-05] MEDS: ALBUTEROL FS 2.5 MG/3 ML VIAL.NEB NEB SCH ×4 (02:03→20:03)
[2018-07-05] MEDS: METOCLOPRAMIDE HCL 10 MG TABLET GT SCH ×3 (05:07→21:24)
[2018-07-05] MEDS: LEVOTHYROXINE SODIUM 88 MCG TABLET GT SCH (05:07)
[2018-07-05] MEDS: OMEPRAZOLE 20 MG CAPSULE.DR GT SCH (05:07)
[2018-07-05 06:08] VITALS: BP 110/58
[2018-07-05] MEDS: LEVETIRACETAM SOL (5 ML) 100 MG/ML UDC GT SCH ×2 (08:24→20:36)
[2018-07-05] MEDS: ASCORBIC ACID 500 MG TABLET GT SCH (08:24)
[2018-07-05] MEDS: ACIDOPHILUS/BULGARICUS 1 EACH TAB.CHEW GT SCH (08:24)
[2018-07-05] MEDS: CARBOXYMETHYLCELLULOSE SODIUM 0.4 ML DROPERETTE EACHEYE SCH (08:24)
[2018-07-05] MEDS: PROSTAT (PYXIS) 30 ML UDC GT SCH ×3 (08:24→16:03)
[2018-07-05] MEDS: MULTIVIT W/MINERALS 1 TAB TABLET GT SCH (08:24)
[2018-07-05] MEDS: ZINC SULFATE 220 MG CAPSULE GT SCH (08:25)
[2018-07-05] MEDS: CHLORHEXIDINE GLUCONATE 15 ML UDC MM SCH ×2 (08:25→16:03)
[2018-07-05] MEDS: MORPHINE SULFATE SOLN CONCENTRATED 20 MG/ML SL SCH ×2 (08:25→20:36)
[2018-07-05] MEDS: HYDROGEN PEROXIDE 480 ML BOTTLE TP SCH ×2 (09:00→20:37)
[2018-07-05] MEDS: NYSTATIN/TRIAMCIN 15 GM CREAM 15 GM TUBE TP SCH ×2 (09:00→20:37)
[2018-07-05] MEDS: POVIDONE-IODINE OINT 28.4 GM TUBE TP SCH ×2 (09:00→20:37)
[2018-07-05] MEDS: COD LIVER OIL/ZINC OXIDE 120 GM TUBE TP SCH ×2 (09:00→20:37)
[2018-07-05 13:29] VITALS: BP 103/50
[2018-07-05 15:57] VITALS: BP 103/50
[2018-07-05 18:21] VITALS: BP 100/49
[2018-07-05 20:00] VITALS: BP 107/54
[2018-07-06] VITALS (7 sets, daily range): BP systolic 96–121; BP diastolic 43–76
[2018-07-06] MEDS: ALBUTEROL FS 2.5 MG/3 ML VIAL.NEB NEB SCH ×4 (01:31→19:41)
[2018-07-06] MEDS: IPRATROPIUM NEB FS 0.5 MG/2.5 ML AMPUL.NEB IH SCH ×4 (01:31→19:41)
[2018-07-06] MEDS: OMEPRAZOLE 20 MG CAPSULE.DR GT SCH (05:32)
[2018-07-06] MEDS: GLUCERNA 1.2 1,000 ML BOTTLE GT PRN (05:33)
[2018-07-06] MEDS: LEVOTHYROXINE SODIUM 88 MCG TABLET GT SCH (05:33)
[2018-07-06] MEDS: METOCLOPRAMIDE HCL 10 MG TABLET GT SCH ×3 (05:33→21:14)
[2018-07-06] MEDS: MULTIVIT W/MINERALS 1 TAB TABLET GT SCH (08:08)
[2018-07-06] MEDS: CHLORHEXIDINE GLUCONATE 15 ML UDC MM SCH ×2 (08:08→17:04)
[2018-07-06] MEDS: ASCORBIC ACID 500 MG TABLET GT SCH (08:08)
[2018-07-06] MEDS: MORPHINE SULFATE SOLN CONCENTRATED 20 MG/ML SL SCH ×2 (08:08→20:32)
[2018-07-06] MEDS: ZINC SULFATE 220 MG CAPSULE GT SCH (08:08)
[2018-07-06] MEDS: ACIDOPHILUS/BULGARICUS 1 EACH TAB.CHEW GT SCH (08:08)
[2018-07-06] MEDS: LEVETIRACETAM SOL (5 ML) 100 MG/ML UDC GT SCH ×2 (08:08→20:32)
[2018-07-06] MEDS: PROSTAT (PYXIS) 30 ML UDC GT SCH ×3 (08:08→17:04)
[2018-07-06] MEDS: CARBOXYMETHYLCELLULOSE SODIUM 0.4 ML DROPERETTE EACHEYE SCH (08:08)
[2018-07-06] MEDS: HYDROGEN PEROXIDE 480 ML BOTTLE TP SCH ×2 (09:00→20:33)
[2018-07-06] MEDS: COD LIVER OIL/ZINC OXIDE 120 GM TUBE TP SCH ×2 (09:00→20:33)
[2018-07-06] MEDS: NYSTATIN/TRIAMCIN 15 GM CREAM 15 GM TUBE TP SCH ×2 (09:00→20:33)
[2018-07-06] MEDS: THERAHONEY GEL 1.5 OZ TUBE TP SCH (09:00)
[2018-07-06] MEDS: POVIDONE-IODINE OINT 28.4 GM TUBE TP SCH ×2 (09:00→20:33)
--- NOTE | 2018-07-06 14:17 | NUR ---
Notified Dr. Monet that patient vomited large amount of diluted formula. New order given to extend Reglan 10 mg. for another 7 days. Informed resident's daughter Reyna of new order.
[2018-07-07 00:05] VITALS: BP 104/59
[2018-07-07] MEDS: IPRATROPIUM NEB FS 0.5 MG/2.5 ML AMPUL.NEB IH SCH ×4 (01:29→19:38)
[2018-07-07] MEDS: ALBUTEROL FS 2.5 MG/3 ML VIAL.NEB NEB SCH ×4 (01:29→19:38)
[2018-07-07] MEDS: METOCLOPRAMIDE HCL 10 MG TABLET GT SCH ×3 (05:24→21:12)
[2018-07-07] MEDS: OMEPRAZOLE 20 MG CAPSULE.DR GT SCH (05:24)
[2018-07-07] MEDS: LEVOTHYROXINE SODIUM 88 MCG TABLET GT SCH (05:24)
[2018-07-07 06:04] VITALS: BP 111/67
[2018-07-07 07:33] VITALS: BP 95/52
[2018-07-07] MEDS: LEVETIRACETAM SOL (5 ML) 100 MG/ML UDC GT SCH ×2 (08:29→20:08)
[2018-07-07] MEDS: PROSTAT (PYXIS) 30 ML UDC GT SCH ×3 (08:29→17:55)
[2018-07-07] MEDS: MULTIVIT W/MINERALS 1 TAB TABLET GT SCH (08:29)
[2018-07-07] MEDS: ACIDOPHILUS/BULGARICUS 1 EACH TAB.CHEW GT SCH (08:29)
[2018-07-07] MEDS: CARBOXYMETHYLCELLULOSE SODIUM 0.4 ML DROPERETTE EACHEYE SCH (08:29)
[2018-07-07] MEDS: ASCORBIC ACID 500 MG TABLET GT SCH (08:30)
[2018-07-07] MEDS: ZINC SULFATE 220 MG CAPSULE GT SCH (08:30)
[2018-07-07] MEDS: MORPHINE SULFATE SOLN CONCENTRATED 20 MG/ML SL SCH ×2 (08:30→20:08)
[2018-07-07] MEDS: CHLORHEXIDINE GLUCONATE 15 ML UDC MM SCH ×2 (08:30→17:55)
[2018-07-07] MEDS: POVIDONE-IODINE OINT 28.4 GM TUBE TP SCH ×2 (09:10→20:08)
[2018-07-07] MEDS: HYDROGEN PEROXIDE 480 ML BOTTLE TP SCH ×2 (09:10→20:08)
[2018-07-07] MEDS: NYSTATIN/TRIAMCIN 15 GM CREAM 15 GM TUBE TP SCH ×2 (09:10→20:08)
[2018-07-07] MEDS: THERAHONEY GEL 1.5 OZ TUBE TP SCH (09:10)
[2018-07-07] MEDS: COD LIVER OIL/ZINC OXIDE 120 GM TUBE TP SCH ×2 (09:10→20:08)
[2018-07-07 12:00] VITALS: BP 106/69
[2018-07-07 18:11] VITALS: BP 102/60
[2018-07-07] MEDS: GLUCERNA 1.2 1,000 ML BOTTLE GT PRN (18:41)
[2018-07-07 20:22] VITALS: BP 107/63
[2018-07-08 00:22] VITALS: BP 104/53
[2018-07-08] MEDS: IPRATROPIUM NEB FS 0.5 MG/2.5 ML AMPUL.NEB IH SCH ×4 (01:33→19:01)
[2018-07-08] MEDS: ALBUTEROL FS 2.5 MG/3 ML VIAL.NEB NEB SCH ×4 (01:33→19:01)
[2018-07-08] MEDS: LEVOTHYROXINE SODIUM 88 MCG TABLET GT SCH (05:33)
[2018-07-08] MEDS: METOCLOPRAMIDE HCL 10 MG TABLET GT SCH ×3 (05:33→21:55)
[2018-07-08] MEDS: OMEPRAZOLE 20 MG CAPSULE.DR GT SCH (05:33)
[2018-07-08 06:06] VITALS: BP 110/64
[2018-07-08 07:44] VITALS: BP 97/46
[2018-07-08] MEDS: CHLORHEXIDINE GLUCONATE 15 ML UDC MM SCH ×2 (08:22→17:27)
[2018-07-08] MEDS: ZINC SULFATE 220 MG CAPSULE GT SCH (08:22)
[2018-07-08] MEDS: CARBOXYMETHYLCELLULOSE SODIUM 0.4 ML DROPERETTE EACHEYE SCH (08:22)
[2018-07-08] MEDS: ASCORBIC ACID 500 MG TABLET GT SCH (08:22)
[2018-07-08] MEDS: MULTIVIT W/MINERALS 1 TAB TABLET GT SCH (08:22)
[2018-07-08] MEDS: PROSTAT (PYXIS) 30 ML UDC GT SCH ×3 (08:22→17:26)
[2018-07-08] MEDS: LEVETIRACETAM SOL (5 ML) 100 MG/ML UDC GT SCH ×2 (08:22→21:51)
[2018-07-08] MEDS: ACIDOPHILUS/BULGARICUS 1 EACH TAB.CHEW GT SCH (08:22)
[2018-07-08] MEDS: MORPHINE SULFATE SOLN CONCENTRATED 20 MG/ML SL SCH ×2 (08:24→21:51)
[2018-07-08] MEDS: THERAHONEY GEL 1.5 OZ TUBE TP SCH (09:00)
[2018-07-08] MEDS: HYDROGEN PEROXIDE 480 ML BOTTLE TP SCH ×2 (09:00→21:51)
[2018-07-08] MEDS: POVIDONE-IODINE OINT 28.4 GM TUBE TP SCH ×2 (09:00→21:51)
[2018-07-08] MEDS: COD LIVER OIL/ZINC OXIDE 120 GM TUBE TP SCH ×2 (09:00→21:51)
[2018-07-08] MEDS: NYSTATIN/TRIAMCIN 15 GM CREAM 15 GM TUBE TP SCH ×2 (09:00→21:51)
[2018-07-08 12:00] VITALS: BP 146/68
[2018-07-08 18:33] VITALS: BP 102/54
[2018-07-08 19:43] VITALS: BP 110/66
[2018-07-08] MEDS: GLUCERNA 1.2 1,000 ML BOTTLE GT PRN (21:55)
[2018-07-09] VITALS: BP 112/58
[2018-07-09] MEDS: IPRATROPIUM NEB FS 0.5 MG/2.5 ML AMPUL.NEB IH SCH ×4 (00:42→19:21)
[2018-07-09] MEDS: ALBUTEROL FS 2.5 MG/3 ML VIAL.NEB NEB SCH ×4 (00:42→19:21)
[2018-07-09 06:00] VITALS: BP 115/81
[2018-07-09] MEDS: LEVOTHYROXINE SODIUM 88 MCG TABLET GT SCH (06:35)
[2018-07-09] MEDS: METOCLOPRAMIDE HCL 10 MG TABLET GT SCH ×3 (06:35→21:13)
[2018-07-09] MEDS: OMEPRAZOLE 20 MG CAPSULE.DR GT SCH (06:35)
[2018-07-09] MEDS: hydrALAZINE HCL 10 MG TABLET GT PRN (06:36)
[2018-07-09 07:15] VITALS: BP 100/52
[2018-07-09] MEDS: MULTIVIT W/MINERALS 1 TAB TABLET GT SCH (08:40)
[2018-07-09] MEDS: CHLORHEXIDINE GLUCONATE 15 ML UDC MM SCH ×2 (08:40→16:12)
[2018-07-09] MEDS: ZINC SULFATE 220 MG CAPSULE GT SCH (08:40)
[2018-07-09] MEDS: CARBOXYMETHYLCELLULOSE SODIUM 0.4 ML DROPERETTE EACHEYE SCH (08:40)
[2018-07-09] MEDS: PROSTAT (PYXIS) 30 ML UDC GT SCH ×3 (08:40→16:12)
[2018-07-09] MEDS: ASCORBIC ACID 500 MG TABLET GT SCH (08:40)
[2018-07-09] MEDS: ACIDOPHILUS/BULGARICUS 1 EACH TAB.CHEW GT SCH (08:40)
[2018-07-09] MEDS: MORPHINE SULFATE SOLN CONCENTRATED 20 MG/ML SL SCH ×2 (08:40→20:18)
[2018-07-09] MEDS: LEVETIRACETAM SOL (5 ML) 100 MG/ML UDC GT SCH ×2 (08:40→20:17)
[2018-07-09] MEDS: POVIDONE-IODINE OINT 28.4 GM TUBE TP SCH ×2 (09:10→20:18)
[2018-07-09] MEDS: THERAHONEY GEL 1.5 OZ TUBE TP SCH (09:10)
[2018-07-09] MEDS: HYDROGEN PEROXIDE 480 ML BOTTLE TP SCH ×2 (09:10→20:18)
[2018-07-09] MEDS: NYSTATIN/TRIAMCIN 15 GM CREAM 15 GM TUBE TP SCH ×2 (09:10→20:18)
[2018-07-09] MEDS: COD LIVER OIL/ZINC OXIDE 120 GM TUBE TP SCH ×2 (09:10→20:18)
--- NOTE | 2018-07-09 13:00 | NUR ---
Seen and examined by TERESA Smith, no new order given.
[2018-07-09 18:00] VITALS: BP 96/56
[2018-07-09 20:00] VITALS: BP 118/56
[2018-07-09 20:12] VITALS: BP 118/56
[2018-07-10] VITALS: BP 124/67
[2018-07-10] MEDS: IPRATROPIUM NEB FS 0.5 MG/2.5 ML AMPUL.NEB IH SCH ×4 (01:17→19:37)
[2018-07-10] MEDS: ALBUTEROL FS 2.5 MG/3 ML VIAL.NEB NEB SCH ×4 (01:18→19:37)
[2018-07-10] MEDS: GLUCERNA 1.2 1,000 ML BOTTLE GT PRN (04:19)
[2018-07-10] MEDS: OMEPRAZOLE 20 MG CAPSULE.DR GT SCH (05:51)
[2018-07-10] MEDS: LEVOTHYROXINE SODIUM 88 MCG TABLET GT SCH (05:52)
[2018-07-10] MEDS: METOCLOPRAMIDE HCL 10 MG TABLET GT SCH ×3 (05:52→21:24)
[2018-07-10 06:00] VITALS: BP 104/51
[2018-07-10 07:47] VITALS: BP 106/56
[2018-07-10] MEDS: ZINC SULFATE 220 MG CAPSULE GT SCH (08:37)
[2018-07-10] MEDS: LEVETIRACETAM SOL (5 ML) 100 MG/ML UDC GT SCH ×2 (08:37→20:44)
[2018-07-10] MEDS: MULTIVIT W/MINERALS 1 TAB TABLET GT SCH (08:37)
[2018-07-10] MEDS: ACIDOPHILUS/BULGARICUS 1 EACH TAB.CHEW GT SCH (08:37)
[2018-07-10] MEDS: CARBOXYMETHYLCELLULOSE SODIUM 0.4 ML DROPERETTE EACHEYE SCH (08:37)
[2018-07-10] MEDS: ASCORBIC ACID 500 MG TABLET GT SCH (08:37)
[2018-07-10] MEDS: PROSTAT (PYXIS) 30 ML UDC GT SCH ×3 (08:37→17:50)
[2018-07-10] MEDS: CHLORHEXIDINE GLUCONATE 15 ML UDC MM SCH ×2 (08:37→17:50)
[2018-07-10] MEDS: MORPHINE SULFATE SOLN CONCENTRATED 20 MG/ML SL SCH ×2 (08:37→20:44)
[2018-07-10] MEDS: NYSTATIN/TRIAMCIN 15 GM CREAM 15 GM TUBE TP SCH ×2 (09:58→20:45)
[2018-07-10] MEDS: COD LIVER OIL/ZINC OXIDE 120 GM TUBE TP SCH ×2 (09:58→20:44)
[2018-07-10] MEDS: THERAHONEY GEL 1.5 OZ TUBE TP SCH (09:58)
[2018-07-10] MEDS: HYDROGEN PEROXIDE 480 ML BOTTLE TP SCH ×2 (09:58→20:45)
[2018-07-10] MEDS: POVIDONE-IODINE OINT 28.4 GM TUBE TP SCH ×2 (09:58→20:44)
[2018-07-10 12:00] VITALS: BP 122/75
[2018-07-10 18:11] VITALS: BP 105/56
[2018-07-10 20:34] VITALS: BP 110/61
[2018-07-11 00:45] VITALS: BP 111/58
[2018-07-11] MEDS: ALBUTEROL FS 2.5 MG/3 ML VIAL.NEB NEB SCH ×4 (02:12→19:54)
[2018-07-11] MEDS: IPRATROPIUM NEB FS 0.5 MG/2.5 ML AMPUL.NEB IH SCH ×4 (02:12→19:54)
[2018-07-11] MEDS: METOCLOPRAMIDE HCL 10 MG TABLET GT SCH ×3 (05:18→21:16)
[2018-07-11] MEDS: LEVOTHYROXINE SODIUM 88 MCG TABLET GT SCH (05:18)
[2018-07-11] MEDS: OMEPRAZOLE 20 MG CAPSULE.DR GT SCH (05:18)
[2018-07-11 06:28] VITALS: BP 116/62
[2018-07-11] MEDS: ASCORBIC ACID 500 MG TABLET GT SCH (08:08)
[2018-07-11] MEDS: CHLORHEXIDINE GLUCONATE 15 ML UDC MM SCH ×2 (08:08→16:09)
[2018-07-11] MEDS: ACIDOPHILUS/BULGARICUS 1 EACH TAB.CHEW GT SCH (08:08)
[2018-07-11] MEDS: MORPHINE SULFATE SOLN CONCENTRATED 20 MG/ML SL SCH ×2 (08:08→20:30)
[2018-07-11] MEDS: PROSTAT (PYXIS) 30 ML UDC GT SCH ×3 (08:08→16:09)
[2018-07-11] MEDS: ZINC SULFATE 220 MG CAPSULE GT SCH (08:08)
[2018-07-11] MEDS: MULTIVIT W/MINERALS 1 TAB TABLET GT SCH (08:08)
[2018-07-11] MEDS: CARBOXYMETHYLCELLULOSE SODIUM 0.4 ML DROPERETTE EACHEYE SCH (08:08)
[2018-07-11] MEDS: LEVETIRACETAM SOL (5 ML) 100 MG/ML UDC GT SCH ×2 (08:18→20:30)
[2018-07-11 08:35] VITALS: BP 105/55
[2018-07-11] MEDS: POVIDONE-IODINE OINT 28.4 GM TUBE TP SCH ×2 (09:00→21:15)
[2018-07-11] MEDS: HYDROGEN PEROXIDE 480 ML BOTTLE TP SCH ×2 (09:00→21:15)
[2018-07-11] MEDS: COD LIVER OIL/ZINC OXIDE 120 GM TUBE TP SCH ×2 (09:00→21:15)
[2018-07-11] MEDS: NYSTATIN/TRIAMCIN 15 GM CREAM 15 GM TUBE TP SCH ×2 (09:00→21:15)
[2018-07-11] MEDS: THERAHONEY GEL 1.5 OZ TUBE TP SCH (09:00)
[2018-07-11 14:22] VITALS: BP 111/73
[2018-07-11] MEDS: GLUCERNA 1.2 1,000 ML BOTTLE GT PRN (16:02)
[2018-07-11 18:35] VITALS: BP 115/60
[2018-07-11 20:17] VITALS: BP 120/53
--- NOTE | 2018-07-11 20:30 | NUR ---
PT ANDREW GREEN'D ON COOL AEROSOL WITH CHARTED SETTINGS. HHN TX GIVEN AND NO ADVERSE REACTION NOTED. SX DONE. PT TRACH PATENT AND SECURE. AMBU BAG AT BEDSIDE. WILL CONTINUE TO MONITOR. Addendum: 07/11/18 at 2030 by ALEXEY MADRID RT Amended: Links added.
[2018-07-12 00:13] VITALS: BP 119/58
[2018-07-12] MEDS: IPRATROPIUM NEB FS 0.5 MG/2.5 ML AMPUL.NEB IH SCH ×4 (01:53→20:23)
[2018-07-12] MEDS: ALBUTEROL FS 2.5 MG/3 ML VIAL.NEB NEB SCH ×4 (01:53→20:23)
[2018-07-12] MEDS: OMEPRAZOLE 20 MG CAPSULE.DR GT SCH (05:27)
[2018-07-12] MEDS: LEVOTHYROXINE SODIUM 88 MCG TABLET GT SCH (05:27)
[2018-07-12] MEDS: METOCLOPRAMIDE HCL 10 MG TABLET GT SCH ×3 (05:27→22:24)
[2018-07-12 06:21] VITALS: BP 114/56
[2018-07-12 07:20] VITALS: BP 106/46
[2018-07-12] MEDS: LEVETIRACETAM SOL (5 ML) 100 MG/ML UDC GT SCH ×2 (08:33→20:49)
[2018-07-12] MEDS: PROSTAT (PYXIS) 30 ML UDC GT SCH ×3 (08:33→16:57)
[2018-07-12] MEDS: ACIDOPHILUS/BULGARICUS 1 EACH TAB.CHEW GT SCH (08:33)
[2018-07-12] MEDS: CHLORHEXIDINE GLUCONATE 15 ML UDC MM SCH ×2 (08:34→16:57)
[2018-07-12] MEDS: ZINC SULFATE 220 MG CAPSULE GT SCH (08:34)
[2018-07-12] MEDS: MORPHINE SULFATE SOLN CONCENTRATED 20 MG/ML SL SCH ×2 (08:34→20:49)
[2018-07-12] MEDS: MULTIVIT W/MINERALS 1 TAB TABLET GT SCH (08:34)
[2018-07-12] MEDS: ASCORBIC ACID 500 MG TABLET GT SCH (08:34)
[2018-07-12] MEDS: THERAHONEY GEL 1.5 OZ TUBE TP SCH (09:00)
[2018-07-12] MEDS: CARBOXYMETHYLCELLULOSE SODIUM 0.4 ML DROPERETTE EACHEYE SCH (09:00)
[2018-07-12] MEDS: POVIDONE-IODINE OINT 28.4 GM TUBE TP SCH ×2 (09:00→20:49)
[2018-07-12] MEDS: COD LIVER OIL/ZINC OXIDE 120 GM TUBE TP SCH ×2 (09:00→20:49)
[2018-07-12] MEDS: NYSTATIN/TRIAMCIN 15 GM CREAM 15 GM TUBE TP SCH ×2 (09:00→20:50)
[2018-07-12] MEDS: HYDROGEN PEROXIDE 480 ML BOTTLE TP SCH ×2 (09:00→20:50)
[2018-07-12 12:00] VITALS: BP 105/64
[2018-07-12 18:33] VITALS: BP 115/65
[2018-07-12] MEDS: GLUCERNA 1.2 1,000 ML BOTTLE GT PRN (23:49)
[2018-07-13] VITALS (7 sets, daily range): BP systolic 102–139; BP diastolic 49–71
[2018-07-13] MEDS: GLUCERNA 1.2 1,000 ML BOTTLE GT PRN (00:35)
[2018-07-13] MEDS: IPRATROPIUM NEB FS 0.5 MG/2.5 ML AMPUL.NEB IH SCH ×4 (01:49→19:57)
[2018-07-13] MEDS: ALBUTEROL FS 2.5 MG/3 ML VIAL.NEB NEB SCH ×4 (01:49→19:57)
[2018-07-13] MEDS: LEVOTHYROXINE SODIUM 88 MCG TABLET GT SCH (05:20)
[2018-07-13] MEDS: METOCLOPRAMIDE HCL 10 MG TABLET GT SCH (05:20)
[2018-07-13] MEDS: hydrALAZINE HCL 10 MG TABLET GT PRN (05:20)
[2018-07-13] MEDS: OMEPRAZOLE 20 MG CAPSULE.DR GT SCH (05:20)
[2018-07-13] MEDS: NYSTATIN/TRIAMCIN 15 GM CREAM 15 GM TUBE TP SCH ×2 (09:00→21:08)
[2018-07-13] MEDS: POVIDONE-IODINE OINT 28.4 GM TUBE TP SCH ×2 (09:00→21:08)
[2018-07-13] MEDS: COD LIVER OIL/ZINC OXIDE 120 GM TUBE TP SCH ×2 (09:00→21:08)
[2018-07-13] MEDS: HYDROGEN PEROXIDE 480 ML BOTTLE TP SCH ×2 (09:00→21:08)
[2018-07-13] MEDS: THERAHONEY GEL 1.5 OZ TUBE TP SCH (09:00)
[2018-07-13] MEDS: LEVETIRACETAM SOL (5 ML) 100 MG/ML UDC GT SCH ×2 (09:53→20:33)
[2018-07-13] MEDS: CARBOXYMETHYLCELLULOSE SODIUM 0.4 ML DROPERETTE EACHEYE SCH (09:53)
[2018-07-13] MEDS: MULTIVIT W/MINERALS 1 TAB TABLET GT SCH (09:54)
[2018-07-13] MEDS: ACIDOPHILUS/BULGARICUS 1 EACH TAB.CHEW GT SCH (09:54)
[2018-07-13] MEDS: MORPHINE SULFATE SOLN CONCENTRATED 20 MG/ML SL SCH ×2 (09:54→20:34)
[2018-07-13] MEDS: PROSTAT (PYXIS) 30 ML UDC GT SCH ×3 (09:54→17:01)
[2018-07-13] MEDS: ASCORBIC ACID 500 MG TABLET GT SCH (09:54)
[2018-07-13] MEDS: CHLORHEXIDINE GLUCONATE 15 ML UDC MM SCH ×2 (09:54→17:01)
[2018-07-13] MEDS: ZINC SULFATE 220 MG CAPSULE GT SCH (09:54)
[2018-07-14 00:24] VITALS: BP 111/64
[2018-07-14] MEDS: ALBUTEROL FS 2.5 MG/3 ML VIAL.NEB NEB SCH ×4 (00:48→19:30)
[2018-07-14] MEDS: IPRATROPIUM NEB FS 0.5 MG/2.5 ML AMPUL.NEB IH SCH ×4 (00:48→19:30)
[2018-07-14] MEDS: LEVOTHYROXINE SODIUM 88 MCG TABLET GT SCH (05:48)
[2018-07-14] MEDS: OMEPRAZOLE 20 MG CAPSULE.DR GT SCH (05:48)
[2018-07-14] MEDS: GLUCERNA 1.2 1,000 ML BOTTLE GT PRN (05:49)
[2018-07-14 06:05] VITALS: BP 107/60
[2018-07-14 07:34] VITALS: BP 98/68
[2018-07-14] MEDS: HYDROGEN PEROXIDE 480 ML BOTTLE TP SCH ×2 (09:30→21:32)
[2018-07-14] MEDS: POVIDONE-IODINE OINT 28.4 GM TUBE TP SCH ×2 (09:30→21:32)
[2018-07-14] MEDS: NYSTATIN/TRIAMCIN 15 GM CREAM 15 GM TUBE TP SCH ×2 (09:30→21:32)
[2018-07-14] MEDS: COD LIVER OIL/ZINC OXIDE 120 GM TUBE TP SCH ×2 (09:30→21:32)
[2018-07-14] MEDS: THERAHONEY GEL 1.5 OZ TUBE TP SCH (09:30)
[2018-07-14] MEDS: ZINC SULFATE 220 MG CAPSULE GT SCH (09:51)
[2018-07-14] MEDS: ASCORBIC ACID 500 MG TABLET GT SCH (09:51)
[2018-07-14] MEDS: ACIDOPHILUS/BULGARICUS 1 EACH TAB.CHEW GT SCH (09:51)
[2018-07-14] MEDS: MORPHINE SULFATE SOLN CONCENTRATED 20 MG/ML SL SCH ×2 (09:51→20:45)
[2018-07-14] MEDS: CHLORHEXIDINE GLUCONATE 15 ML UDC MM SCH ×2 (09:51→16:05)
[2018-07-14] MEDS: LEVETIRACETAM SOL (5 ML) 100 MG/ML UDC GT SCH ×2 (09:51→20:45)
[2018-07-14] MEDS: CARBOXYMETHYLCELLULOSE SODIUM 0.4 ML DROPERETTE EACHEYE SCH (09:51)
[2018-07-14] MEDS: MULTIVIT W/MINERALS 1 TAB TABLET GT SCH (09:51)
[2018-07-14] MEDS: PROSTAT (PYXIS) 30 ML UDC GT SCH ×3 (09:51→16:05)
[2018-07-14 12:00] VITALS: BP 103/60
--- NOTE | 2018-07-14 15:01 | NUR ---
Jamil-catheter changed as ordered secondary to noted bypassing and with blockage. Procedure tolerated well. Jamil draining clear yellow urine. No signs and symptoms of distress.
[2018-07-14 18:17] VITALS: BP 100/53
--- NOTE | 2018-07-14 19:38 | NUR ---
RT NOTE MEDS NOT IN STOCK. PHARMACY IS CLOSED FOR THE DAY, CAN NOT ORDER AT THIS TIME. PHARMACY CLOSED AT 7 PM.
[2018-07-14 20:04] VITALS: BP 102/53
--- NOTE | 2018-07-14 22:36 | NUR ---
RT NOTE PT RECEIVED ON COOL AEROSOL 28% 5L. NO RESP DISTRESS OR SOB NOTED. PT SX'D. BREATHING TX NOT GIVEN BECAUSE IT IS OUT OF STOCK. AMBU BAG AND SPARE TRACH ARE AT BEDSIDE. WILL CONT TO MONITOR PT. Addendum: 07/14/18 at 2238 by ZANDER LUONG RT Amended: Links added.
[2018-07-15] MEDS: ALBUTEROL FS 2.5 MG/3 ML VIAL.NEB NEB SCH ×4 (00:43→19:39)
[2018-07-15] MEDS: IPRATROPIUM NEB FS 0.5 MG/2.5 ML AMPUL.NEB IH SCH ×4 (00:43→19:39)
[2018-07-15 00:44] VITALS: BP 117/72
[2018-07-15] MEDS: OMEPRAZOLE 20 MG CAPSULE.DR GT SCH (05:45)
[2018-07-15] MEDS: LEVOTHYROXINE SODIUM 88 MCG TABLET GT SCH (05:45)
[2018-07-15 06:20] VITALS: BP 115/69
[2018-07-15 08:04] VITALS: BP 90/55
[2018-07-15] MEDS: CARBOXYMETHYLCELLULOSE SODIUM 0.4 ML DROPERETTE EACHEYE SCH (08:15)
[2018-07-15] MEDS: MORPHINE SULFATE SOLN CONCENTRATED 20 MG/ML SL SCH ×2 (08:15→20:09)
[2018-07-15] MEDS: MULTIVIT W/MINERALS 1 TAB TABLET GT SCH (08:15)
[2018-07-15] MEDS: ASCORBIC ACID 500 MG TABLET GT SCH (08:15)
[2018-07-15] MEDS: ACIDOPHILUS/BULGARICUS 1 EACH TAB.CHEW GT SCH (08:15)
[2018-07-15] MEDS: PROSTAT (PYXIS) 30 ML UDC GT SCH ×3 (08:15→17:00)
[2018-07-15] MEDS: CHLORHEXIDINE GLUCONATE 15 ML UDC MM SCH ×2 (08:15→17:00)
[2018-07-15] MEDS: ZINC SULFATE 220 MG CAPSULE GT SCH (08:15)
[2018-07-15] MEDS: LEVETIRACETAM SOL (5 ML) 100 MG/ML UDC GT SCH ×2 (08:15→20:08)
[2018-07-15] MEDS: NYSTATIN/TRIAMCIN 15 GM CREAM 15 GM TUBE TP SCH ×2 (09:00→20:09)
[2018-07-15] MEDS: COD LIVER OIL/ZINC OXIDE 120 GM TUBE TP SCH ×2 (09:00→20:09)
[2018-07-15] MEDS: THERAHONEY GEL 1.5 OZ TUBE TP SCH (09:00)
[2018-07-15] MEDS: HYDROGEN PEROXIDE 480 ML BOTTLE TP SCH ×2 (09:00→20:09)
[2018-07-15] MEDS: POVIDONE-IODINE OINT 28.4 GM TUBE TP SCH ×2 (09:00→20:09)
[2018-07-15 15:36] VITALS: BP 100/56
[2018-07-15] MEDS: GLUCERNA 1.2 1,000 ML BOTTLE GT PRN (16:12)
[2018-07-15 18:48] VITALS: BP 102/57
[2018-07-15 19:47] VITALS: BP 116/64
[2018-07-16] MEDS: METOCLOPRAMIDE HCL 10 MG TABLET GT SCH ×4 (00:14→18:21)
[2018-07-16 00:22] VITALS: BP 126/66
[2018-07-16] MEDS: IPRATROPIUM NEB FS 0.5 MG/2.5 ML AMPUL.NEB IH SCH ×4 (01:26→19:32)
[2018-07-16] MEDS: ALBUTEROL FS 2.5 MG/3 ML VIAL.NEB NEB SCH ×4 (01:26→19:32)
[2018-07-16] MEDS: OMEPRAZOLE 20 MG CAPSULE.DR GT SCH (05:43)
[2018-07-16] MEDS: LEVOTHYROXINE SODIUM 88 MCG TABLET GT SCH (05:43)
[2018-07-16 06:20] VITALS: BP 106/70
[2018-07-16] MEDS: CARBOXYMETHYLCELLULOSE SODIUM 0.4 ML DROPERETTE EACHEYE SCH (08:28)
[2018-07-16] MEDS: CHLORHEXIDINE GLUCONATE 15 ML UDC MM SCH ×2 (08:29→17:00)
[2018-07-16] MEDS: MORPHINE SULFATE SOLN CONCENTRATED 20 MG/ML SL SCH ×2 (08:29→20:22)
[2018-07-16] MEDS: PROSTAT (PYXIS) 30 ML UDC GT SCH ×3 (08:29→17:00)
[2018-07-16] MEDS: MULTIVIT W/MINERALS 1 TAB TABLET GT SCH (08:29)
[2018-07-16] MEDS: ACIDOPHILUS/BULGARICUS 1 EACH TAB.CHEW GT SCH (08:29)
[2018-07-16] MEDS: ASCORBIC ACID 500 MG TABLET GT SCH (08:29)
[2018-07-16] MEDS: LEVETIRACETAM SOL (5 ML) 100 MG/ML UDC GT SCH ×2 (08:29→20:21)
[2018-07-16] MEDS: ZINC SULFATE 220 MG CAPSULE GT SCH (08:29)
[2018-07-16 08:50] VITALS: BP 117/55
[2018-07-16] MEDS: NYSTATIN/TRIAMCIN 15 GM CREAM 15 GM TUBE TP SCH ×2 (09:00→20:22)
[2018-07-16] MEDS: COD LIVER OIL/ZINC OXIDE 120 GM TUBE TP SCH ×2 (09:00→20:22)
[2018-07-16] MEDS: HYDROGEN PEROXIDE 480 ML BOTTLE TP SCH ×2 (09:00→20:22)
[2018-07-16] MEDS: POVIDONE-IODINE OINT 28.4 GM TUBE TP SCH ×2 (09:00→20:22)
[2018-07-16] MEDS: THERAHONEY GEL 1.5 OZ TUBE TP SCH (09:00)
[2018-07-16 15:22] VITALS: BP 124/64
[2018-07-16 18:21] VITALS: BP 120/62
[2018-07-16 19:45] VITALS: BP 111/61
[2018-07-17] MEDS: METOCLOPRAMIDE HCL 10 MG TABLET GT SCH ×4 (00:30→18:15)
[2018-07-17 00:33] VITALS: BP 105/46
[2018-07-17] MEDS: IPRATROPIUM NEB FS 0.5 MG/2.5 ML AMPUL.NEB IH SCH ×4 (01:14→19:33)
[2018-07-17] MEDS: ALBUTEROL FS 2.5 MG/3 ML VIAL.NEB NEB SCH ×4 (01:14→19:33)
[2018-07-17] MEDS: GLUCERNA 1.2 1,000 ML BOTTLE GT PRN (04:02)
[2018-07-17] MEDS: OMEPRAZOLE 20 MG CAPSULE.DR GT SCH (05:48)
[2018-07-17] MEDS: LEVOTHYROXINE SODIUM 88 MCG TABLET GT SCH (05:48)
[2018-07-17 06:03] VITALS: BP 106/54
[2018-07-17 07:13] VITALS: BP 115/72
[2018-07-17] MEDS: LEVETIRACETAM SOL (5 ML) 100 MG/ML UDC GT SCH ×2 (08:49→20:40)
[2018-07-17] MEDS: MULTIVIT W/MINERALS 1 TAB TABLET GT SCH (08:49)
[2018-07-17] MEDS: CARBOXYMETHYLCELLULOSE SODIUM 0.4 ML DROPERETTE EACHEYE SCH (08:49)
[2018-07-17] MEDS: ACIDOPHILUS/BULGARICUS 1 EACH TAB.CHEW GT SCH (08:49)
[2018-07-17] MEDS: MORPHINE SULFATE SOLN CONCENTRATED 20 MG/ML SL SCH ×2 (08:49→20:41)
[2018-07-17] MEDS: PROSTAT (PYXIS) 30 ML UDC GT SCH ×3 (08:49→16:50)
[2018-07-17] MEDS: ASCORBIC ACID 500 MG TABLET GT SCH (08:49)
[2018-07-17] MEDS: CHLORHEXIDINE GLUCONATE 15 ML UDC MM SCH ×2 (08:49→16:50)
[2018-07-17] MEDS: ZINC SULFATE 220 MG CAPSULE GT SCH (08:49)
[2018-07-17] MEDS: POVIDONE-IODINE OINT 28.4 GM TUBE TP SCH ×2 (09:00→20:41)
[2018-07-17] MEDS: NYSTATIN/TRIAMCIN 15 GM CREAM 15 GM TUBE TP SCH ×2 (09:00→20:41)
[2018-07-17] MEDS: HYDROGEN PEROXIDE 480 ML BOTTLE TP SCH ×2 (09:00→20:41)
[2018-07-17] MEDS: THERAHONEY GEL 1.5 OZ TUBE TP SCH (09:00)
[2018-07-17] MEDS: COD LIVER OIL/ZINC OXIDE 120 GM TUBE TP SCH ×2 (09:00→20:41)
[2018-07-17 13:09] VITALS: BP 106/65
--- NOTE | 2018-07-17 16:10 | NUR ---
Pt was noted with a blood blister on the sole of her left foot and a very small reddish discoloration (0.1 x 0.1 cm) on the left great toe. Informed Dr Blum. He said he will see pt on Monday07/20/18. Addendum: 07/17/18 at 1616 by PER MARTEL RN Yuly Orellana.
[2018-07-17 18:45] VITALS: BP 112/65
[2018-07-17 19:57] VITALS: BP 100/58
[2018-07-18] MEDS: METOCLOPRAMIDE HCL 10 MG TABLET GT SCH ×5 (00:09→23:33)
[2018-07-18 00:15] VITALS: BP 114/59
[2018-07-18] MEDS: ALBUTEROL FS 2.5 MG/3 ML VIAL.NEB NEB SCH ×4 (01:42→19:47)
[2018-07-18] MEDS: IPRATROPIUM NEB FS 0.5 MG/2.5 ML AMPUL.NEB IH SCH ×4 (01:42→19:47)
[2018-07-18] MEDS: LEVOTHYROXINE SODIUM 88 MCG TABLET GT SCH (05:10)
[2018-07-18] MEDS: OMEPRAZOLE 20 MG CAPSULE.DR GT SCH (05:10)
[2018-07-18 06:18] VITALS: BP 103/65
[2018-07-18 07:26] VITALS: BP 107/52
[2018-07-18] MEDS: ASCORBIC ACID 500 MG TABLET GT SCH (08:43)
[2018-07-18] MEDS: ACIDOPHILUS/BULGARICUS 1 EACH TAB.CHEW GT SCH (08:43)
[2018-07-18] MEDS: ZINC SULFATE 220 MG CAPSULE GT SCH (08:43)
[2018-07-18] MEDS: CHLORHEXIDINE GLUCONATE 15 ML UDC MM SCH ×2 (08:43→16:23)
[2018-07-18] MEDS: CARBOXYMETHYLCELLULOSE SODIUM 0.4 ML DROPERETTE EACHEYE SCH (08:43)
[2018-07-18] MEDS: MORPHINE SULFATE SOLN CONCENTRATED 20 MG/ML SL SCH ×2 (08:43→20:32)
[2018-07-18] MEDS: MULTIVIT W/MINERALS 1 TAB TABLET GT SCH (08:43)
[2018-07-18] MEDS: LEVETIRACETAM SOL (5 ML) 100 MG/ML UDC GT SCH ×2 (08:43→20:32)
[2018-07-18] MEDS: PROSTAT (PYXIS) 30 ML UDC GT SCH ×3 (08:43→16:23)
[2018-07-18] MEDS: COD LIVER OIL/ZINC OXIDE 120 GM TUBE TP SCH ×2 (09:15→21:00)
[2018-07-18] MEDS: NYSTATIN/TRIAMCIN 15 GM CREAM 15 GM TUBE TP SCH (09:15)
[2018-07-18] MEDS: THERAHONEY GEL 1.5 OZ TUBE TP SCH (09:15)
[2018-07-18] MEDS: HYDROGEN PEROXIDE 480 ML BOTTLE TP SCH ×2 (09:15→21:00)
[2018-07-18] MEDS: POVIDONE-IODINE OINT 28.4 GM TUBE TP SCH ×2 (09:15→21:00)
[2018-07-18 12:00] VITALS: BP 101/54
[2018-07-18] MEDS: GLUCERNA 1.2 1,000 ML BOTTLE GT PRN (14:38)
[2018-07-18 18:00] VITALS: BP 102/53
[2018-07-18 19:54] VITALS: BP 109/57
[2018-07-19 00:41] VITALS: BP 103/58
[2018-07-19] MEDS: IPRATROPIUM NEB FS 0.5 MG/2.5 ML AMPUL.NEB IH SCH ×4 (02:25→19:58)
[2018-07-19] MEDS: ALBUTEROL FS 2.5 MG/3 ML VIAL.NEB NEB SCH ×4 (02:25→19:58)
[2018-07-19] MEDS: METOCLOPRAMIDE HCL 10 MG TABLET GT SCH ×3 (05:49→17:15)
[2018-07-19] MEDS: OMEPRAZOLE 20 MG CAPSULE.DR GT SCH (05:49)
[2018-07-19] MEDS: LEVOTHYROXINE SODIUM 88 MCG TABLET GT SCH (05:49)
[2018-07-19 06:39] VITALS: BP 116/59
[2018-07-19 07:30] VITALS: BP 122/54
[2018-07-19] MEDS: THERAHONEY GEL 1.5 OZ TUBE TP SCH (09:00)
[2018-07-19] MEDS: POVIDONE-IODINE OINT 28.4 GM TUBE TP SCH ×3 (09:00→21:03)
[2018-07-19] MEDS: HYDROGEN PEROXIDE 480 ML BOTTLE TP SCH ×2 (09:00→21:03)
[2018-07-19] MEDS: COD LIVER OIL/ZINC OXIDE 120 GM TUBE TP SCH ×2 (09:00→21:03)
[2018-07-19] MEDS: CARBOXYMETHYLCELLULOSE SODIUM 0.4 ML DROPERETTE EACHEYE SCH (09:00)
[2018-07-19] MEDS: MULTIVIT W/MINERALS 1 TAB TABLET GT SCH (09:05)
[2018-07-19] MEDS: PROSTAT (PYXIS) 30 ML UDC GT SCH ×3 (09:05→17:15)
[2018-07-19] MEDS: LEVETIRACETAM SOL (5 ML) 100 MG/ML UDC GT SCH ×2 (09:05→20:12)
[2018-07-19] MEDS: ACIDOPHILUS/BULGARICUS 1 EACH TAB.CHEW GT SCH (09:05)
[2018-07-19] MEDS: MORPHINE SULFATE SOLN CONCENTRATED 20 MG/ML SL SCH ×2 (09:06→20:13)
[2018-07-19] MEDS: ASCORBIC ACID 500 MG TABLET GT SCH (09:06)
[2018-07-19] MEDS: ZINC SULFATE 220 MG CAPSULE GT SCH (09:06)
[2018-07-19] MEDS: CHLORHEXIDINE GLUCONATE 15 ML UDC MM SCH ×2 (09:06→17:15)
--- NOTE | 2018-07-19 09:40 | NUR ---
Debridement of sacral wound done by Dr. Darryl Winters, tolerated well with minimal amount of bleeding. Pain medication given as ordered. Will continue to monitor.
--- NOTE | 2018-07-19 09:52 | NUR ---
RT NOTE PT RECEIVED ON COOL AEROSOL 5L 28%. NO RESP DISTRESS OR SOB NOTED. PT SX'D. BREATHING TX GIVEN, NO ADVERSE REACTIONS NOTED. AMBU BAG AND SPARE TRACH ARE AT BEDSIDE. WILL CONT TO MONITOR PT. BREATHING TX WAS GIVEN LATE DUE TO ATTENDANCE FOR RAPID RESPONSE CALLED IN PAT 118. Addendum: 07/19/18 at 0953 by ZANDER LUONG RT Amended: Links added.
--- NOTE | 2018-07-19 12:00 | NUR ---
Noted with open blisters on her right thigh, no bleeding noted. No s/s of pain or infection. Treatment initiated. Daughter Katelin notified at bedside. Will continue to monitor.
[2018-07-19 13:03] VITALS: BP 117/68
[2018-07-19 18:40] VITALS: BP 103/65
[2018-07-19 19:43] VITALS: BP 126/72
[2018-07-19] MEDS: GLUCERNA 1.2 1,000 ML BOTTLE GT PRN (20:13)
[2018-07-20] MEDS: METOCLOPRAMIDE HCL 10 MG TABLET GT SCH ×5 (00:19→23:32)
[2018-07-20 00:20] VITALS: BP 118/83
[2018-07-20] MEDS: ALBUTEROL FS 2.5 MG/3 ML VIAL.NEB NEB SCH ×4 (00:58→19:44)
[2018-07-20] MEDS: IPRATROPIUM NEB FS 0.5 MG/2.5 ML AMPUL.NEB IH SCH ×4 (00:58→19:44)
[2018-07-20] MEDS: OMEPRAZOLE 20 MG CAPSULE.DR GT SCH (05:16)
[2018-07-20] MEDS: LEVOTHYROXINE SODIUM 88 MCG TABLET GT SCH (05:16)
[2018-07-20 06:32] VITALS: BP 137/66
[2018-07-20 07:22] VITALS: BP 101/44
[2018-07-20] MEDS: LEVETIRACETAM SOL (5 ML) 100 MG/ML UDC GT SCH ×2 (08:26→21:17)
[2018-07-20] MEDS: CARBOXYMETHYLCELLULOSE SODIUM 0.4 ML DROPERETTE EACHEYE SCH (08:26)
[2018-07-20] MEDS: PROSTAT (PYXIS) 30 ML UDC GT SCH ×3 (08:27→17:12)
[2018-07-20] MEDS: ACIDOPHILUS/BULGARICUS 1 EACH TAB.CHEW GT SCH (08:27)
[2018-07-20] MEDS: MORPHINE SULFATE SOLN CONCENTRATED 20 MG/ML SL SCH ×2 (08:27→21:17)
[2018-07-20] MEDS: ASCORBIC ACID 500 MG TABLET GT SCH (08:27)
[2018-07-20] MEDS: MULTIVIT W/MINERALS 1 TAB TABLET GT SCH (08:27)
[2018-07-20] MEDS: CHLORHEXIDINE GLUCONATE 15 ML UDC MM SCH ×2 (08:27→17:12)
[2018-07-20] MEDS: ZINC SULFATE 220 MG CAPSULE GT SCH (08:27)
[2018-07-20] MEDS: COD LIVER OIL/ZINC OXIDE 120 GM TUBE TP SCH ×2 (09:38→21:42)
[2018-07-20] MEDS: HYDROGEN PEROXIDE 480 ML BOTTLE TP SCH ×2 (09:38→21:42)
[2018-07-20] MEDS: POVIDONE-IODINE OINT 28.4 GM TUBE TP SCH ×4 (09:38→21:42)
[2018-07-20] MEDS: THERAHONEY GEL 1.5 OZ TUBE TP SCH (09:39)
[2018-07-20 12:00] VITALS: BP 102/66
[2018-07-20 18:26] VITALS: BP 103/57
[2018-07-20 20:04] VITALS: BP 104/57
[2018-07-21 00:05] VITALS: BP 112/71
[2018-07-21] MEDS: ALBUTEROL FS 2.5 MG/3 ML VIAL.NEB NEB SCH ×4 (01:43→19:32)
[2018-07-21] MEDS: IPRATROPIUM NEB FS 0.5 MG/2.5 ML AMPUL.NEB IH SCH ×4 (01:43→19:32)
[2018-07-21] MEDS: LEVOTHYROXINE SODIUM 88 MCG TABLET GT SCH (05:28)
[2018-07-21] MEDS: METOCLOPRAMIDE HCL 10 MG TABLET GT SCH ×3 (05:28→17:29)
[2018-07-21] MEDS: OMEPRAZOLE 20 MG CAPSULE.DR GT SCH (05:28)
[2018-07-21 06:18] VITALS: BP 113/77
[2018-07-21] MEDS: GLUCERNA 1.2 1,000 ML BOTTLE GT PRN (06:41)
[2018-07-21 07:39] VITALS: BP 118/62
[2018-07-21] MEDS: CARBOXYMETHYLCELLULOSE SODIUM 0.4 ML DROPERETTE EACHEYE SCH (08:22)
[2018-07-21] MEDS: MULTIVIT W/MINERALS 1 TAB TABLET GT SCH (08:22)
[2018-07-21] MEDS: MORPHINE SULFATE SOLN CONCENTRATED 20 MG/ML SL SCH ×2 (08:22→21:34)
[2018-07-21] MEDS: PROSTAT (PYXIS) 30 ML UDC GT SCH ×3 (08:22→16:55)
[2018-07-21] MEDS: ACIDOPHILUS/BULGARICUS 1 EACH TAB.CHEW GT SCH (08:22)
[2018-07-21] MEDS: CHLORHEXIDINE GLUCONATE 15 ML UDC MM SCH ×2 (08:22→16:55)
[2018-07-21] MEDS: ZINC SULFATE 220 MG CAPSULE GT SCH (08:22)
[2018-07-21] MEDS: LEVETIRACETAM SOL (5 ML) 100 MG/ML UDC GT SCH ×2 (08:22→21:34)
[2018-07-21] MEDS: ASCORBIC ACID 500 MG TABLET GT SCH (08:22)
[2018-07-21] MEDS: COD LIVER OIL/ZINC OXIDE 120 GM TUBE TP SCH ×2 (09:00→21:35)
[2018-07-21] MEDS: THERAHONEY GEL 1.5 OZ TUBE TP SCH (09:00)
[2018-07-21] MEDS: POVIDONE-IODINE OINT 28.4 GM TUBE TP SCH ×4 (09:00→21:35)
[2018-07-21] MEDS: HYDROGEN PEROXIDE 480 ML BOTTLE TP SCH ×2 (09:00→21:35)
[2018-07-21 12:00] VITALS: BP 109/59
[2018-07-21 18:12] VITALS: BP 107/59
[2018-07-21 21:10] VITALS: BP 100/56
[2018-07-22] VITALS: BP 124/57
[2018-07-22] MEDS: METOCLOPRAMIDE HCL 10 MG TABLET GT SCH ×4 (00:08→17:40)
[2018-07-22] MEDS: IPRATROPIUM NEB FS 0.5 MG/2.5 ML AMPUL.NEB IH SCH ×4 (00:58→19:29)
[2018-07-22] MEDS: ALBUTEROL FS 2.5 MG/3 ML VIAL.NEB NEB SCH ×4 (00:58→19:30)
[2018-07-22] MEDS: OMEPRAZOLE 20 MG CAPSULE.DR GT SCH (05:33)
[2018-07-22] MEDS: LEVOTHYROXINE SODIUM 88 MCG TABLET GT SCH (05:33)
[2018-07-22] MEDS: hydrALAZINE HCL 10 MG TABLET GT PRN (05:37)
[2018-07-22 06:00] VITALS: BP 110/54
[2018-07-22 07:43] VITALS: BP 93/51
[2018-07-22] MEDS: CARBOXYMETHYLCELLULOSE SODIUM 0.4 ML DROPERETTE EACHEYE SCH (08:41)
[2018-07-22] MEDS: LEVETIRACETAM SOL (5 ML) 100 MG/ML UDC GT SCH ×2 (08:41→20:18)
[2018-07-22] MEDS: ACIDOPHILUS/BULGARICUS 1 EACH TAB.CHEW GT SCH (08:41)
[2018-07-22] MEDS: CHLORHEXIDINE GLUCONATE 15 ML UDC MM SCH ×2 (08:42→17:40)
[2018-07-22] MEDS: ASCORBIC ACID 500 MG TABLET GT SCH (08:42)
[2018-07-22] MEDS: MORPHINE SULFATE SOLN CONCENTRATED 20 MG/ML SL SCH ×2 (08:42→20:19)
[2018-07-22] MEDS: ZINC SULFATE 220 MG CAPSULE GT SCH (08:42)
[2018-07-22] MEDS: MULTIVIT W/MINERALS 1 TAB TABLET GT SCH (08:42)
[2018-07-22] MEDS: PROSTAT (PYXIS) 30 ML UDC GT SCH ×3 (08:42→17:40)
[2018-07-22] MEDS: POVIDONE-IODINE OINT 28.4 GM TUBE TP SCH ×4 (09:40→20:19)
[2018-07-22] MEDS: COD LIVER OIL/ZINC OXIDE 120 GM TUBE TP SCH ×2 (09:40→20:19)
[2018-07-22] MEDS: HYDROGEN PEROXIDE 480 ML BOTTLE TP SCH ×2 (09:41→20:19)
[2018-07-22] MEDS: THERAHONEY GEL 1.5 OZ TUBE TP SCH (09:41)
--- NOTE | 2018-07-22 10:00 | NUR ---
Seen and examined by Dr. Ross, NNO given.
[2018-07-22 12:45] VITALS: BP 109/70
[2018-07-22] MEDS: GLUCERNA 1.2 1,000 ML BOTTLE GT PRN (14:30)
[2018-07-22 18:18] VITALS: BP 110/68
[2018-07-22 20:14] VITALS: BP 108/60
--- NOTE | 2018-07-22 21:10 | NUR ---
RT PATIENT WAS RECEIVED ON COOL AEROSOL. AMBU BAG/BACK UP TRACH @ BEDSIDE. Q6 BREATHING TX GIVEN PER MD ORDERS WITH NO ADVERSE REACTION NOTED. SUCTION DONE PRN. TRACH PATENT AND SECURED. NO RESPIRATORY DISTRESS NOTED AT THIS TIME. WILL CONTINUE TO MONITOR PATIENT Addendum: 07/22/18 at 2110 by DAKSHA SHARP RT Amended: Links added.
[2018-07-23 00:42] VITALS: BP 102/54
[2018-07-23] MEDS: METOCLOPRAMIDE HCL 10 MG TABLET GT SCH ×4 (00:52→17:02)
[2018-07-23] MEDS: IPRATROPIUM NEB FS 0.5 MG/2.5 ML AMPUL.NEB IH SCH ×4 (01:19→19:47)
[2018-07-23] MEDS: ALBUTEROL FS 2.5 MG/3 ML VIAL.NEB NEB SCH ×4 (01:19→19:47)
[2018-07-23] MEDS: LEVOTHYROXINE SODIUM 88 MCG TABLET GT SCH (06:05)
[2018-07-23] MEDS: OMEPRAZOLE 20 MG CAPSULE.DR GT SCH (06:05)
[2018-07-23 06:45] VITALS: BP 114/74
[2018-07-23] MEDS: GLUCERNA 1.2 1,000 ML BOTTLE GT PRN (07:09)
[2018-07-23 07:34] VITALS: BP 110/59
[2018-07-23] MEDS: CARBOXYMETHYLCELLULOSE SODIUM 0.4 ML DROPERETTE EACHEYE SCH (08:04)
[2018-07-23] MEDS: LEVETIRACETAM SOL (5 ML) 100 MG/ML UDC GT SCH ×2 (08:04→20:13)
[2018-07-23] MEDS: MULTIVIT W/MINERALS 1 TAB TABLET GT SCH (08:05)
[2018-07-23] MEDS: ACIDOPHILUS/BULGARICUS 1 EACH TAB.CHEW GT SCH (08:06)
[2018-07-23] MEDS: ASCORBIC ACID 500 MG TABLET GT SCH (08:06)
[2018-07-23] MEDS: PROSTAT (PYXIS) 30 ML UDC GT SCH ×3 (08:06→17:02)
[2018-07-23] MEDS: COD LIVER OIL/ZINC OXIDE 120 GM TUBE TP SCH ×2 (08:07→20:15)
[2018-07-23] MEDS: CHLORHEXIDINE GLUCONATE 15 ML UDC MM SCH ×2 (08:07→17:02)
[2018-07-23] MEDS: HYDROGEN PEROXIDE 480 ML BOTTLE TP SCH ×2 (08:07→20:15)
[2018-07-23] MEDS: THERAHONEY GEL 1.5 OZ TUBE TP SCH (08:07)
[2018-07-23] MEDS: ZINC SULFATE 220 MG CAPSULE GT SCH (08:07)
[2018-07-23] MEDS: POVIDONE-IODINE OINT 28.4 GM TUBE TP SCH ×4 (08:07→20:15)
[2018-07-23] MEDS: MORPHINE SULFATE SOLN CONCENTRATED 20 MG/ML SL SCH ×2 (09:58→20:14)
--- NOTE | 2018-07-23 11:52 | NUR ---
JOSSE communicated to pt. sister about IDT mtg this Monday07/27/2018
[2018-07-23 12:00] VITALS: BP 130/65
--- NOTE | 2018-07-23 18:30 | NUR ---
Seen and examined by Becca Smith NP, no new order made.
[2018-07-23 18:49] VITALS: BP 110/64
[2018-07-23 20:26] VITALS: BP 100/56
[2018-07-24 01:04] VITALS: BP 104/48
[2018-07-24] MEDS: ALBUTEROL FS 2.5 MG/3 ML VIAL.NEB NEB SCH ×4 (01:06→19:47)
[2018-07-24] MEDS: IPRATROPIUM NEB FS 0.5 MG/2.5 ML AMPUL.NEB IH SCH ×4 (01:06→19:47)
[2018-07-24] MEDS: METOCLOPRAMIDE HCL 10 MG TABLET GT SCH ×4 (01:06→18:30)
[2018-07-24] MEDS: LEVOTHYROXINE SODIUM 88 MCG TABLET GT SCH (05:19)
[2018-07-24] MEDS: GLUCERNA 1.2 1,000 ML BOTTLE GT PRN (05:25)
[2018-07-24] MEDS: OMEPRAZOLE 20 MG CAPSULE.DR GT SCH (05:27)
[2018-07-24 06:10] VITALS: BP 90/46
[2018-07-24 07:26] VITALS: BP 93/51
[2018-07-24] MEDS: MULTIVIT W/MINERALS 1 TAB TABLET GT SCH (08:35)
[2018-07-24] MEDS: CARBOXYMETHYLCELLULOSE SODIUM 0.4 ML DROPERETTE EACHEYE SCH (08:35)
[2018-07-24] MEDS: PROSTAT (PYXIS) 30 ML UDC GT SCH ×3 (08:35→17:00)
[2018-07-24] MEDS: ACIDOPHILUS/BULGARICUS 1 EACH TAB.CHEW GT SCH (08:35)
[2018-07-24] MEDS: ASCORBIC ACID 500 MG TABLET GT SCH (08:35)
[2018-07-24] MEDS: ZINC SULFATE 220 MG CAPSULE GT SCH (08:35)
[2018-07-24] MEDS: CHLORHEXIDINE GLUCONATE 15 ML UDC MM SCH ×2 (08:35→17:00)
[2018-07-24] MEDS: LEVETIRACETAM SOL (5 ML) 100 MG/ML UDC GT SCH ×2 (08:35→20:18)
[2018-07-24] MEDS: MORPHINE SULFATE SOLN CONCENTRATED 20 MG/ML SL SCH ×2 (08:35→20:19)
[2018-07-24] MEDS: POVIDONE-IODINE OINT 28.4 GM TUBE TP SCH ×4 (09:00→20:20)
[2018-07-24] MEDS: THERAHONEY GEL 1.5 OZ TUBE TP SCH (09:00)
[2018-07-24] MEDS: COD LIVER OIL/ZINC OXIDE 120 GM TUBE TP SCH ×2 (09:00→20:20)
[2018-07-24] MEDS: HYDROGEN PEROXIDE 480 ML BOTTLE TP SCH ×2 (09:00→20:20)
--- NOTE | 2018-07-24 09:00 | NUR ---
Seen and examined by Dr. Monet, no new order given.
[2018-07-24 15:54] VITALS: BP 99/62
[2018-07-24 18:32] VITALS: BP 100/60
[2018-07-24 20:42] VITALS: BP 123/54
[2018-07-25 00:22] VITALS: BP 103/53
[2018-07-25] MEDS: METOCLOPRAMIDE HCL 10 MG TABLET GT SCH ×5 (00:23→23:54)
[2018-07-25] MEDS: ALBUTEROL FS 2.5 MG/3 ML VIAL.NEB NEB SCH ×4 (00:46→19:49)
[2018-07-25] MEDS: IPRATROPIUM NEB FS 0.5 MG/2.5 ML AMPUL.NEB IH SCH ×4 (00:46→19:49)
[2018-07-25] MEDS: GLUCERNA 1.2 1,000 ML BOTTLE GT PRN (04:23)
[2018-07-25] MEDS: OMEPRAZOLE 20 MG CAPSULE.DR GT SCH (05:20)
[2018-07-25] MEDS: LEVOTHYROXINE SODIUM 88 MCG TABLET GT SCH (05:20)
[2018-07-25 06:37] VITALS: BP 104/49
[2018-07-25 07:57] VITALS: BP 112/54
[2018-07-25] MEDS: MORPHINE SULFATE SOLN CONCENTRATED 20 MG/ML SL SCH ×2 (08:30→21:34)
[2018-07-25] MEDS: LEVETIRACETAM SOL (5 ML) 100 MG/ML UDC GT SCH ×2 (09:53→21:34)
[2018-07-25] MEDS: ZINC SULFATE 220 MG CAPSULE GT SCH (09:53)
[2018-07-25] MEDS: MULTIVIT W/MINERALS 1 TAB TABLET GT SCH (09:53)
[2018-07-25] MEDS: CHLORHEXIDINE GLUCONATE 15 ML UDC MM SCH ×2 (09:53→17:15)
[2018-07-25] MEDS: ACIDOPHILUS/BULGARICUS 1 EACH TAB.CHEW GT SCH (09:53)
[2018-07-25] MEDS: ASCORBIC ACID 500 MG TABLET GT SCH (09:53)
[2018-07-25] MEDS: PROSTAT (PYXIS) 30 ML UDC GT SCH ×3 (09:53→17:15)
[2018-07-25] MEDS: CARBOXYMETHYLCELLULOSE SODIUM 0.4 ML DROPERETTE EACHEYE SCH (09:53)
[2018-07-25] MEDS: POVIDONE-IODINE OINT 28.4 GM TUBE TP SCH ×4 (09:54→21:35)
[2018-07-25] MEDS: HYDROGEN PEROXIDE 480 ML BOTTLE TP SCH ×2 (09:54→21:35)
[2018-07-25] MEDS: COD LIVER OIL/ZINC OXIDE 120 GM TUBE TP SCH ×2 (09:54→21:35)
[2018-07-25] MEDS: THERAHONEY GEL 1.5 OZ TUBE TP SCH (09:54)
[2018-07-25 12:00] VITALS: BP 103/54
[2018-07-25 18:40] VITALS: BP 113/55
[2018-07-25 20:17] VITALS: BP 117/63
--- NOTE | 2018-07-26 | NUR ---
PT HAD MANICURE AND PEDICURE YESTERDAY.
[2018-07-26 00:10] VITALS: BP 112/53
[2018-07-26] MEDS: IPRATROPIUM NEB FS 0.5 MG/2.5 ML AMPUL.NEB IH SCH ×4 (02:07→19:32)
[2018-07-26] MEDS: ALBUTEROL FS 2.5 MG/3 ML VIAL.NEB NEB SCH ×4 (02:07→19:32)
[2018-07-26] MEDS: LEVOTHYROXINE SODIUM 88 MCG TABLET GT SCH (05:46)
[2018-07-26] MEDS: OMEPRAZOLE 20 MG CAPSULE.DR GT SCH (05:46)
[2018-07-26] MEDS: METOCLOPRAMIDE HCL 10 MG TABLET GT SCH ×4 (05:46→23:44)
[2018-07-26 06:34] VITALS: BP 120/53
[2018-07-26 07:25] VITALS: BP 101/44
[2018-07-26] MEDS: CHLORHEXIDINE GLUCONATE 15 ML UDC MM SCH ×2 (08:20→17:56)
[2018-07-26] MEDS: ASCORBIC ACID 500 MG TABLET GT SCH (08:20)
[2018-07-26] MEDS: MULTIVIT W/MINERALS 1 TAB TABLET GT SCH (08:20)
[2018-07-26] MEDS: PROSTAT (PYXIS) 30 ML UDC GT SCH ×3 (08:20→17:56)
[2018-07-26] MEDS: MORPHINE SULFATE SOLN CONCENTRATED 20 MG/ML SL SCH ×2 (08:20→21:57)
[2018-07-26] MEDS: ACIDOPHILUS/BULGARICUS 1 EACH TAB.CHEW GT SCH (08:20)
[2018-07-26] MEDS: LEVETIRACETAM SOL (5 ML) 100 MG/ML UDC GT SCH ×2 (08:20→21:56)
[2018-07-26] MEDS: CARBOXYMETHYLCELLULOSE SODIUM 0.4 ML DROPERETTE EACHEYE SCH (08:20)
[2018-07-26] MEDS: ZINC SULFATE 220 MG CAPSULE GT SCH (08:20)
[2018-07-26] MEDS: POVIDONE-IODINE OINT 28.4 GM TUBE TP SCH ×4 (09:43→22:00)
[2018-07-26] MEDS: COD LIVER OIL/ZINC OXIDE 120 GM TUBE TP SCH ×2 (09:44→22:00)
[2018-07-26] MEDS: THERAHONEY GEL 1.5 OZ TUBE TP SCH (09:44)
[2018-07-26] MEDS: HYDROGEN PEROXIDE 480 ML BOTTLE TP SCH ×2 (09:44→22:00)
[2018-07-26 12:00] VITALS: BP 116/58
[2018-07-26 18:45] VITALS: BP 106/45
[2018-07-26 20:39] VITALS: BP 124/58
[2018-07-27 00:20] VITALS: BP 115/46
[2018-07-27] MEDS: ALBUTEROL FS 2.5 MG/3 ML VIAL.NEB NEB SCH ×4 (01:21→20:27)
[2018-07-27] MEDS: IPRATROPIUM NEB FS 0.5 MG/2.5 ML AMPUL.NEB IH SCH ×4 (01:21→20:27)
[2018-07-27] MEDS: GLUCERNA 1.2 1,000 ML BOTTLE GT PRN ×2 (02:00→22:00)
[2018-07-27] MEDS: OMEPRAZOLE 20 MG CAPSULE.DR GT SCH (05:47)
[2018-07-27] MEDS: METOCLOPRAMIDE HCL 10 MG TABLET GT SCH ×4 (05:47→23:57)
[2018-07-27] MEDS: LEVOTHYROXINE SODIUM 88 MCG TABLET GT SCH (05:47)
[2018-07-27 06:16] VITALS: BP 105/54
[2018-07-27 07:22] VITALS: BP 119/48
[2018-07-27] MEDS: LEVETIRACETAM SOL (5 ML) 100 MG/ML UDC GT SCH ×2 (09:02→21:23)
[2018-07-27] MEDS: ACIDOPHILUS/BULGARICUS 1 EACH TAB.CHEW GT SCH (09:02)
[2018-07-27] MEDS: ASCORBIC ACID 500 MG TABLET GT SCH (09:02)
[2018-07-27] MEDS: CHLORHEXIDINE GLUCONATE 15 ML UDC MM SCH ×2 (09:02→17:02)
[2018-07-27] MEDS: MULTIVIT W/MINERALS 1 TAB TABLET GT SCH (09:02)
[2018-07-27] MEDS: MORPHINE SULFATE SOLN CONCENTRATED 20 MG/ML SL SCH ×2 (09:02→21:23)
[2018-07-27] MEDS: ZINC SULFATE 220 MG CAPSULE GT SCH (09:02)
[2018-07-27] MEDS: CARBOXYMETHYLCELLULOSE SODIUM 0.4 ML DROPERETTE EACHEYE SCH (09:02)
[2018-07-27] MEDS: PROSTAT (PYXIS) 30 ML UDC GT SCH ×3 (09:02→17:02)
[2018-07-27] MEDS: HYDROGEN PEROXIDE 480 ML BOTTLE TP SCH ×2 (09:59→21:23)
[2018-07-27] MEDS: THERAHONEY GEL 1.5 OZ TUBE TP SCH (09:59)
[2018-07-27] MEDS: COD LIVER OIL/ZINC OXIDE 120 GM TUBE TP SCH ×2 (09:59→21:23)
[2018-07-27] MEDS: POVIDONE-IODINE OINT 28.4 GM TUBE TP SCH ×4 (09:59→21:23)
[2018-07-27 12:18] VITALS: BP 102/58
--- NOTE | 2018-07-27 16:34 | NUR ---
INTERDISCIPLINARY TEAM CONFERENCE (IDT) was held today. Resident's family member was not able to attend today's IDT meeting. Dr. Monet and the interdisciplinary team reviewed the current plan of care in detail. Orders as well as treatment and medications were reviewed. Resident had a podiatry appointment on 08/19. No new orders were given.
[2018-07-27 18:00] VITALS: BP 113/61
[2018-07-27 19:49] VITALS: BP 102/54
[2018-07-28 00:22] VITALS: BP 118/71
[2018-07-28] MEDS: IPRATROPIUM NEB FS 0.5 MG/2.5 ML AMPUL.NEB IH SCH ×4 (01:54→20:08)
[2018-07-28] MEDS: ALBUTEROL FS 2.5 MG/3 ML VIAL.NEB NEB SCH ×4 (01:54→20:08)
[2018-07-28] MEDS: METOCLOPRAMIDE HCL 10 MG TABLET GT SCH ×4 (05:45→23:41)
[2018-07-28] MEDS: LEVOTHYROXINE SODIUM 88 MCG TABLET GT SCH (05:45)
[2018-07-28] MEDS: OMEPRAZOLE 20 MG CAPSULE.DR GT SCH (05:45)
[2018-07-28 06:08] VITALS: BP 106/58
[2018-07-28 08:03] VITALS: BP 100/41
[2018-07-28] MEDS: LEVETIRACETAM SOL (5 ML) 100 MG/ML UDC GT SCH ×2 (09:46→20:54)
[2018-07-28] MEDS: CHLORHEXIDINE GLUCONATE 15 ML UDC MM SCH ×2 (09:46→17:22)
[2018-07-28] MEDS: ZINC SULFATE 220 MG CAPSULE GT SCH (09:46)
[2018-07-28] MEDS: ASCORBIC ACID 500 MG TABLET GT SCH (09:46)
[2018-07-28] MEDS: MULTIVIT W/MINERALS 1 TAB TABLET GT SCH (09:46)
[2018-07-28] MEDS: ACIDOPHILUS/BULGARICUS 1 EACH TAB.CHEW GT SCH (09:46)
[2018-07-28] MEDS: MORPHINE SULFATE SOLN CONCENTRATED 20 MG/ML SL SCH ×2 (09:46→20:54)
[2018-07-28] MEDS: CARBOXYMETHYLCELLULOSE SODIUM 0.4 ML DROPERETTE EACHEYE SCH (09:46)
[2018-07-28] MEDS: PROSTAT (PYXIS) 30 ML UDC GT SCH ×3 (09:46→17:22)
[2018-07-28] MEDS: COD LIVER OIL/ZINC OXIDE 120 GM TUBE TP SCH ×2 (10:15→20:55)
[2018-07-28] MEDS: THERAHONEY GEL 1.5 OZ TUBE TP SCH (10:15)
[2018-07-28] MEDS: POVIDONE-IODINE OINT 28.4 GM TUBE TP SCH ×4 (10:15→20:55)
[2018-07-28] MEDS: HYDROGEN PEROXIDE 480 ML BOTTLE TP SCH ×2 (10:15→20:55)
[2018-07-28 12:00] VITALS: BP 105/51
[2018-07-28] MEDS: GLUCERNA 1.2 1,000 ML BOTTLE GT PRN (17:22)
[2018-07-28 18:59] VITALS: BP 110/59
[2018-07-28 20:13] VITALS: BP 114/63
[2018-07-29] VITALS: BP 113/59
[2018-07-29] MEDS: ALBUTEROL FS 2.5 MG/3 ML VIAL.NEB NEB SCH ×4 (02:12→19:36)
[2018-07-29] MEDS: IPRATROPIUM NEB FS 0.5 MG/2.5 ML AMPUL.NEB IH SCH ×4 (02:12→19:36)
[2018-07-29 06:00] VITALS: BP 110/71
[2018-07-29] MEDS: OMEPRAZOLE 20 MG CAPSULE.DR GT SCH (06:30)
[2018-07-29] MEDS: METOCLOPRAMIDE HCL 10 MG TABLET GT SCH ×3 (06:30→18:00)
[2018-07-29] MEDS: LEVOTHYROXINE SODIUM 88 MCG TABLET GT SCH (06:30)
[2018-07-29 07:29] VITALS: BP 115/55
[2018-07-29] MEDS: CARBOXYMETHYLCELLULOSE SODIUM 0.4 ML DROPERETTE EACHEYE SCH (09:03)
[2018-07-29] MEDS: LEVETIRACETAM SOL (5 ML) 100 MG/ML UDC GT SCH ×2 (09:03→20:53)
[2018-07-29] MEDS: ACIDOPHILUS/BULGARICUS 1 EACH TAB.CHEW GT SCH (09:04)
[2018-07-29] MEDS: PROSTAT (PYXIS) 30 ML UDC GT SCH ×3 (09:04→17:59)
[2018-07-29] MEDS: CHLORHEXIDINE GLUCONATE 15 ML UDC MM SCH ×2 (09:04→17:59)
[2018-07-29] MEDS: POVIDONE-IODINE OINT 28.4 GM TUBE TP SCH ×4 (09:04→20:54)
[2018-07-29] MEDS: ASCORBIC ACID 500 MG TABLET GT SCH (09:04)
[2018-07-29] MEDS: ZINC SULFATE 220 MG CAPSULE GT SCH (09:04)
[2018-07-29] MEDS: MULTIVIT W/MINERALS 1 TAB TABLET GT SCH (09:04)
[2018-07-29] MEDS: MORPHINE SULFATE SOLN CONCENTRATED 20 MG/ML SL SCH ×2 (09:04→20:54)
[2018-07-29] MEDS: THERAHONEY GEL 1.5 OZ TUBE TP SCH (09:05)
[2018-07-29] MEDS: COD LIVER OIL/ZINC OXIDE 120 GM TUBE TP SCH ×2 (09:05→20:54)
[2018-07-29] MEDS: HYDROGEN PEROXIDE 480 ML BOTTLE TP SCH ×2 (09:05→20:54)
[2018-07-29 15:04] VITALS: BP 97/59
[2018-07-29 18:01] VITALS: BP 100/60
[2018-07-29 19:53] VITALS: BP 114/56
[2018-07-30 00:21] VITALS: BP 116/70
[2018-07-30] MEDS: IPRATROPIUM NEB FS 0.5 MG/2.5 ML AMPUL.NEB IH SCH ×4 (01:16→19:19)
[2018-07-30] MEDS: ALBUTEROL FS 2.5 MG/3 ML VIAL.NEB NEB SCH ×4 (01:16→19:19)
[2018-07-30] MEDS: OMEPRAZOLE 20 MG CAPSULE.DR GT SCH (06:00)
[2018-07-30] MEDS: METOCLOPRAMIDE HCL 10 MG TABLET GT SCH ×5 (06:00→23:54)
[2018-07-30 06:01] VITALS: BP 110/72
[2018-07-30] MEDS: LEVOTHYROXINE SODIUM 88 MCG TABLET GT SCH (06:01)
[2018-07-30] MEDS: ASCORBIC ACID 500 MG TABLET GT SCH (08:36)
[2018-07-30] MEDS: CARBOXYMETHYLCELLULOSE SODIUM 0.4 ML DROPERETTE EACHEYE SCH (08:36)
[2018-07-30] MEDS: POVIDONE-IODINE OINT 28.4 GM TUBE TP SCH ×3 (08:36→20:55)
[2018-07-30] MEDS: ACIDOPHILUS/BULGARICUS 1 EACH TAB.CHEW GT SCH (08:36)
[2018-07-30] MEDS: PROSTAT (PYXIS) 30 ML UDC GT SCH ×3 (08:36→17:18)
[2018-07-30] MEDS: MULTIVIT W/MINERALS 1 TAB TABLET GT SCH (08:36)
[2018-07-30] MEDS: CHLORHEXIDINE GLUCONATE 15 ML UDC MM SCH ×2 (08:36→17:18)
[2018-07-30] MEDS: MORPHINE SULFATE SOLN CONCENTRATED 20 MG/ML SL SCH ×2 (08:36→20:55)
[2018-07-30] MEDS: LEVETIRACETAM SOL (5 ML) 100 MG/ML UDC GT SCH ×2 (08:36→20:55)
[2018-07-30] MEDS: ZINC SULFATE 220 MG CAPSULE GT SCH (08:36)
[2018-07-30] MEDS: THERAHONEY GEL 1.5 OZ TUBE TP SCH (08:37)
[2018-07-30] MEDS: HYDROGEN PEROXIDE 480 ML BOTTLE TP SCH ×2 (08:37→20:55)
[2018-07-30] MEDS: COD LIVER OIL/ZINC OXIDE 120 GM TUBE TP SCH ×2 (08:37→20:55)
[2018-07-30 08:49] VITALS: BP 102/53
--- NOTE | 2018-07-30 15:55 | NUR ---
JOSSE called pt's daughter Jonathan to educate her about [facility] policies. JOSSE was informed by staff members that daughter often refuses to leave the room when pt is being cleaned by staff ( as required by sub-acute policies) and that pt. daughter wrote her name in one of [facility] chairs. JOSSE told Jonathan that its [facility]-subacute policy that family members and guests leave the room for few minutes when staff are cleaning the pt. Josse also explained to the daughter that each patient has a chair in his/her room and that she could not write her name in it, however, said JOSSE, family members are welcome to request more chairs as needed when there are multiple visitors. Pt's daughter told JOSSE she would follow the hospital's rules from non on and thanked JOSSE for explaining them to her.
[2018-07-30 17:19] VITALS: BP 105/64
[2018-07-30 18:57] VITALS: BP 110/67
[2018-07-30 20:03] VITALS: BP 115/51
[2018-07-31 00:09] VITALS: BP 119/74
[2018-07-31] MEDS: IPRATROPIUM NEB FS 0.5 MG/2.5 ML AMPUL.NEB IH SCH ×4 (00:41→19:22)
[2018-07-31] MEDS: ALBUTEROL FS 2.5 MG/3 ML VIAL.NEB NEB SCH ×4 (00:41→19:22)
[2018-07-31] MEDS: METOCLOPRAMIDE HCL 10 MG TABLET GT SCH ×4 (05:59→23:51)
[2018-07-31] MEDS: LEVOTHYROXINE SODIUM 88 MCG TABLET GT SCH (05:59)
[2018-07-31] MEDS: OMEPRAZOLE 20 MG CAPSULE.DR GT SCH (05:59)
[2018-07-31 06:01] VITALS: BP 118/64
[2018-07-31 07:35] VITALS: BP 104/48
[2018-07-31] MEDS: PROSTAT (PYXIS) 30 ML UDC GT SCH ×3 (08:49→17:16)
[2018-07-31] MEDS: COD LIVER OIL/ZINC OXIDE 120 GM TUBE TP SCH ×2 (08:49→20:54)
[2018-07-31] MEDS: CHLORHEXIDINE GLUCONATE 15 ML UDC MM SCH ×2 (08:49→17:16)
[2018-07-31] MEDS: MULTIVIT W/MINERALS 1 TAB TABLET GT SCH (08:49)
[2018-07-31] MEDS: ACIDOPHILUS/BULGARICUS 1 EACH TAB.CHEW GT SCH (08:49)
[2018-07-31] MEDS: THERAHONEY GEL 1.5 OZ TUBE TP SCH (08:49)
[2018-07-31] MEDS: CARBOXYMETHYLCELLULOSE SODIUM 0.4 ML DROPERETTE EACHEYE SCH (08:49)
[2018-07-31] MEDS: HYDROGEN PEROXIDE 480 ML BOTTLE TP SCH ×2 (08:49→20:54)
[2018-07-31] MEDS: ASCORBIC ACID 500 MG TABLET GT SCH (08:49)
[2018-07-31] MEDS: POVIDONE-IODINE OINT 28.4 GM TUBE TP SCH ×2 (08:49→20:53)
[2018-07-31] MEDS: ZINC SULFATE 220 MG CAPSULE GT SCH (08:49)
[2018-07-31] MEDS: MORPHINE SULFATE SOLN CONCENTRATED 20 MG/ML SL SCH ×2 (08:49→20:53)
[2018-07-31] MEDS: LEVETIRACETAM SOL (5 ML) 100 MG/ML UDC GT SCH ×2 (08:49→20:53)
[2018-07-31 12:21] VITALS: BP 107/52
[2018-07-31 18:27] VITALS: BP 100/61
[2018-07-31 21:06] VITALS: BP 106/59
[2018-08-01] VITALS (7 sets, daily range): BP systolic 100–116; BP diastolic 49–69
[2018-08-01] MEDS: ALBUTEROL FS 2.5 MG/3 ML VIAL.NEB NEB SCH ×4 (01:01→19:40)
[2018-08-01] MEDS: IPRATROPIUM NEB FS 0.5 MG/2.5 ML AMPUL.NEB IH SCH ×4 (01:01→19:40)
[2018-08-01] MEDS: OMEPRAZOLE 20 MG CAPSULE.DR GT SCH (06:12)
[2018-08-01] MEDS: LEVOTHYROXINE SODIUM 88 MCG TABLET GT SCH (06:12)
[2018-08-01] MEDS: METOCLOPRAMIDE HCL 10 MG TABLET GT SCH ×4 (06:12→23:47)
[2018-08-01] MEDS: MORPHINE SULFATE SOLN CONCENTRATED 20 MG/ML SL SCH ×2 (08:31→21:26)
[2018-08-01] MEDS: PROSTAT (PYXIS) 30 ML UDC GT SCH ×3 (08:49→17:00)
[2018-08-01] MEDS: MULTIVIT W/MINERALS 1 TAB TABLET GT SCH (08:49)
[2018-08-01] MEDS: ASCORBIC ACID 500 MG TABLET GT SCH (08:49)
[2018-08-01] MEDS: ZINC SULFATE 220 MG CAPSULE GT SCH (08:49)
[2018-08-01] MEDS: CARBOXYMETHYLCELLULOSE SODIUM 0.4 ML DROPERETTE EACHEYE SCH (08:49)
[2018-08-01] MEDS: LEVETIRACETAM SOL (5 ML) 100 MG/ML UDC GT SCH ×2 (08:49→21:26)
[2018-08-01] MEDS: ACIDOPHILUS/BULGARICUS 1 EACH TAB.CHEW GT SCH (08:49)
[2018-08-01] MEDS: CHLORHEXIDINE GLUCONATE 15 ML UDC MM SCH ×2 (08:49→17:00)
[2018-08-01] MEDS: THERAHONEY GEL 1.5 OZ TUBE TP SCH ×2 (09:00→21:27)
[2018-08-01] MEDS: POVIDONE-IODINE OINT 28.4 GM TUBE TP SCH ×2 (09:00→21:26)
[2018-08-01] MEDS: HYDROGEN PEROXIDE 480 ML BOTTLE TP SCH ×2 (09:00→21:26)
[2018-08-01] MEDS: COD LIVER OIL/ZINC OXIDE 120 GM TUBE TP SCH ×2 (09:00→21:26)
[2018-08-01] MEDS: NYSTATIN/TRIAMCIN CREAM 15 GM TUBE TP SCH (21:27)
[2018-08-02 00:49] VITALS: BP 121/64
[2018-08-02] MEDS: ALBUTEROL FS 2.5 MG/3 ML VIAL.NEB NEB SCH ×4 (01:25→19:33)
[2018-08-02] MEDS: IPRATROPIUM NEB FS 0.5 MG/2.5 ML AMPUL.NEB IH SCH ×4 (01:25→19:33)
[2018-08-02] MEDS: OMEPRAZOLE 20 MG CAPSULE.DR GT SCH (05:45)
[2018-08-02] MEDS: LEVOTHYROXINE SODIUM 88 MCG TABLET GT SCH (05:45)
[2018-08-02] MEDS: METOCLOPRAMIDE HCL 10 MG TABLET GT SCH ×3 (05:45→18:34)
[2018-08-02] MEDS: GLUCERNA 1.2 1,000 ML BOTTLE GT PRN (05:55)
[2018-08-02 06:28] VITALS: BP 121/58
[2018-08-02 07:46] VITALS: BP 111/53
[2018-08-02] MEDS: NYSTATIN/TRIAMCIN CREAM 15 GM TUBE TP SCH ×2 (09:00→21:00)
[2018-08-02] MEDS: LEVETIRACETAM SOL (5 ML) 100 MG/ML UDC GT SCH ×2 (09:19→21:00)
[2018-08-02] MEDS: MORPHINE SULFATE SOLN CONCENTRATED 20 MG/ML SL SCH ×2 (09:19→21:00)
[2018-08-02] MEDS: CARBOXYMETHYLCELLULOSE SODIUM 0.4 ML DROPERETTE EACHEYE SCH (09:19)
[2018-08-02] MEDS: ASCORBIC ACID 500 MG TABLET GT SCH (09:19)
[2018-08-02] MEDS: PROSTAT (PYXIS) 30 ML UDC GT SCH ×3 (09:19→17:00)
[2018-08-02] MEDS: ACIDOPHILUS/BULGARICUS 1 EACH TAB.CHEW GT SCH (09:19)
[2018-08-02] MEDS: MULTIVIT W/MINERALS 1 TAB TABLET GT SCH (09:19)
[2018-08-02] MEDS: CHLORHEXIDINE GLUCONATE 15 ML UDC MM SCH ×2 (09:19→17:00)
[2018-08-02] MEDS: ZINC SULFATE 220 MG CAPSULE GT SCH (09:19)
[2018-08-02] MEDS: THERAHONEY GEL 1.5 OZ TUBE TP SCH ×2 (09:40→21:00)
[2018-08-02] MEDS: HYDROGEN PEROXIDE 480 ML BOTTLE TP SCH ×2 (09:50→21:00)
[2018-08-02] MEDS: COD LIVER OIL/ZINC OXIDE 120 GM TUBE TP SCH ×2 (09:50→21:00)
[2018-08-02] MEDS: POVIDONE-IODINE OINT 28.4 GM TUBE TP SCH (09:50)
[2018-08-02 12:00] VITALS: BP 101/51
[2018-08-02 18:00] VITALS: BP 107/44
--- NOTE | 2018-08-02 19:30 | NUR ---
Seen by TERESA Smith no new order.
[2018-08-02 19:34] VITALS: BP 113/67
[2018-08-03] VITALS: BP 114/51
[2018-08-03] MEDS: ALBUTEROL FS 2.5 MG/3 ML VIAL.NEB NEB SCH ×4 (00:41→19:43)
[2018-08-03] MEDS: IPRATROPIUM NEB FS 0.5 MG/2.5 ML AMPUL.NEB IH SCH ×4 (00:41→19:43)
[2018-08-03] MEDS: METOCLOPRAMIDE HCL 10 MG TABLET GT SCH ×4 (00:48→17:11)
[2018-08-03] MEDS: GLUCERNA 1.2 1,000 ML BOTTLE GT PRN (01:50)
[2018-08-03 06:00] VITALS: BP 109/55
[2018-08-03] MEDS: LEVOTHYROXINE SODIUM 88 MCG TABLET GT SCH (06:21)
[2018-08-03] MEDS: OMEPRAZOLE 20 MG CAPSULE.DR GT SCH (06:21)
[2018-08-03 07:24] VITALS: BP 122/51
[2018-08-03] MEDS: ZINC SULFATE 220 MG CAPSULE GT SCH (08:40)
[2018-08-03] MEDS: MULTIVIT W/MINERALS 1 TAB TABLET GT SCH (08:40)
[2018-08-03] MEDS: LEVETIRACETAM SOL (5 ML) 100 MG/ML UDC GT SCH ×2 (08:40→21:31)
[2018-08-03] MEDS: CHLORHEXIDINE GLUCONATE 15 ML UDC MM SCH ×2 (08:40→17:11)
[2018-08-03] MEDS: PROSTAT (PYXIS) 30 ML UDC GT SCH ×3 (08:40→17:11)
[2018-08-03] MEDS: ASCORBIC ACID 500 MG TABLET GT SCH (08:40)
[2018-08-03] MEDS: ACIDOPHILUS/BULGARICUS 1 EACH TAB.CHEW GT SCH (08:40)
[2018-08-03] MEDS: CARBOXYMETHYLCELLULOSE SODIUM 0.4 ML DROPERETTE EACHEYE SCH (08:40)
[2018-08-03] MEDS: MORPHINE SULFATE SOLN CONCENTRATED 20 MG/ML SL SCH ×2 (08:40→21:31)
[2018-08-03] MEDS: NYSTATIN/TRIAMCIN CREAM 15 GM TUBE TP SCH ×2 (09:10→21:32)
[2018-08-03] MEDS: THERAHONEY GEL 1.5 OZ TUBE TP SCH ×2 (09:10→21:32)
[2018-08-03] MEDS: HYDROGEN PEROXIDE 480 ML BOTTLE TP SCH ×2 (09:10→21:32)
[2018-08-03] MEDS: COD LIVER OIL/ZINC OXIDE 120 GM TUBE TP SCH ×2 (09:10→21:31)
--- NOTE | 2018-08-03 09:35 | NUR ---
RT PATIENT WAS RECEIVED ON COOL AEROSOL. AMBU BAG/BACK UP TRACH @ BEDSIDE. Q6 BREATHING TX GIVEN PER MD ORDERS WITH NO ADVERSE REACTION NOTED. SUCTION DONE PRN. TRACH PATENT AND SECURED. NO RESPIRATORY DISTRESS NOTED AT THIS TIME. WILL CONTINUE TO MONITOR PATIENT Addendum: 08/03/18 at 0936 by DAKSHA SHRAP RT Amended: Links added.
[2018-08-03 12:00] VITALS: BP 125/59
[2018-08-03 18:00] VITALS: BP 95/38
[2018-08-04] VITALS (7 sets, daily range): BP systolic 92–110; BP diastolic 47–56
[2018-08-04] MEDS: METOCLOPRAMIDE HCL 10 MG TABLET GT SCH ×5 (00:16→23:27)
[2018-08-04] MEDS: ALBUTEROL FS 2.5 MG/3 ML VIAL.NEB NEB SCH ×4 (01:42→19:53)
[2018-08-04] MEDS: IPRATROPIUM NEB FS 0.5 MG/2.5 ML AMPUL.NEB IH SCH ×4 (01:42→19:53)
[2018-08-04] MEDS: GLUCERNA 1.2 1,000 ML BOTTLE GT PRN (02:00)
[2018-08-04] MEDS: LEVOTHYROXINE SODIUM 88 MCG TABLET GT SCH (05:31)
[2018-08-04] MEDS: OMEPRAZOLE 20 MG CAPSULE.DR GT SCH (05:31)
[2018-08-04] MEDS: MORPHINE SULFATE SOLN CONCENTRATED 20 MG/ML SL SCH ×2 (08:31→21:17)
[2018-08-04] MEDS: MULTIVIT W/MINERALS 1 TAB TABLET GT SCH (09:51)
[2018-08-04] MEDS: CHLORHEXIDINE GLUCONATE 15 ML UDC MM SCH ×2 (09:51→16:31)
[2018-08-04] MEDS: ACIDOPHILUS/BULGARICUS 1 EACH TAB.CHEW GT SCH (09:51)
[2018-08-04] MEDS: ZINC SULFATE 220 MG CAPSULE GT SCH (09:51)
[2018-08-04] MEDS: ASCORBIC ACID 500 MG TABLET GT SCH (09:51)
[2018-08-04] MEDS: CARBOXYMETHYLCELLULOSE SODIUM 0.4 ML DROPERETTE EACHEYE SCH (09:51)
[2018-08-04] MEDS: PROSTAT (PYXIS) 30 ML UDC GT SCH ×3 (09:51→16:31)
[2018-08-04] MEDS: LEVETIRACETAM SOL (5 ML) 100 MG/ML UDC GT SCH ×2 (09:51→21:17)
[2018-08-04] MEDS: THERAHONEY GEL 1.5 OZ TUBE TP SCH ×2 (09:52→21:17)
[2018-08-04] MEDS: COD LIVER OIL/ZINC OXIDE 120 GM TUBE TP SCH ×2 (09:52→21:17)
[2018-08-04] MEDS: NYSTATIN/TRIAMCIN CREAM 15 GM TUBE TP SCH ×2 (09:52→21:17)
[2018-08-04] MEDS: HYDROGEN PEROXIDE 480 ML BOTTLE TP SCH ×2 (09:52→21:17)
[2018-08-05] VITALS: BP 105/54
[2018-08-05] MEDS: ALBUTEROL FS 2.5 MG/3 ML VIAL.NEB NEB SCH ×4 (01:21→19:34)
[2018-08-05] MEDS: IPRATROPIUM NEB FS 0.5 MG/2.5 ML AMPUL.NEB IH SCH ×4 (01:21→19:34)
[2018-08-05] MEDS: LEVOTHYROXINE SODIUM 88 MCG TABLET GT SCH (05:38)
[2018-08-05] MEDS: METOCLOPRAMIDE HCL 10 MG TABLET GT SCH ×4 (05:38→23:35)
[2018-08-05] MEDS: OMEPRAZOLE 20 MG CAPSULE.DR GT SCH (05:41)
[2018-08-05] MEDS: GLUCERNA 1.2 1,000 ML BOTTLE GT PRN (05:43)
[2018-08-05 07:24] VITALS: BP 113/45
[2018-08-05 07:38] VITALS: BP 102/42
[2018-08-05] MEDS: CARBOXYMETHYLCELLULOSE SODIUM 0.4 ML DROPERETTE EACHEYE SCH (08:30)
[2018-08-05] MEDS: ASCORBIC ACID 500 MG TABLET GT SCH (08:30)
[2018-08-05] MEDS: ZINC SULFATE 220 MG CAPSULE GT SCH (08:30)
[2018-08-05] MEDS: ACIDOPHILUS/BULGARICUS 1 EACH TAB.CHEW GT SCH (08:30)
[2018-08-05] MEDS: MORPHINE SULFATE SOLN CONCENTRATED 20 MG/ML SL SCH ×2 (08:30→20:55)
[2018-08-05] MEDS: MULTIVIT W/MINERALS 1 TAB TABLET GT SCH (08:30)
[2018-08-05] MEDS: CHLORHEXIDINE GLUCONATE 15 ML UDC MM SCH ×2 (08:30→17:25)
[2018-08-05] MEDS: LEVETIRACETAM SOL (5 ML) 100 MG/ML UDC GT SCH ×2 (08:30→20:54)
[2018-08-05] MEDS: PROSTAT (PYXIS) 30 ML UDC GT SCH ×3 (08:30→17:25)
[2018-08-05] MEDS: THERAHONEY GEL 1.5 OZ TUBE TP SCH ×2 (09:10→21:38)
[2018-08-05] MEDS: COD LIVER OIL/ZINC OXIDE 120 GM TUBE TP SCH ×2 (09:10→20:55)
[2018-08-05] MEDS: HYDROGEN PEROXIDE 480 ML BOTTLE TP SCH ×2 (09:10→20:55)
[2018-08-05] MEDS: NYSTATIN/TRIAMCIN CREAM 15 GM TUBE TP SCH ×2 (09:10→21:38)
[2018-08-05 12:00] VITALS: BP 100/57
[2018-08-05 18:39] VITALS: BP 105/62
[2018-08-05 20:13] VITALS: BP 111/59
[2018-08-06 00:11] VITALS: BP 111/58
[2018-08-06] MEDS: ALBUTEROL FS 2.5 MG/3 ML VIAL.NEB NEB SCH ×4 (01:27→19:29)
[2018-08-06] MEDS: IPRATROPIUM NEB FS 0.5 MG/2.5 ML AMPUL.NEB IH SCH ×4 (01:27→19:29)
[2018-08-06] MEDS: OMEPRAZOLE 20 MG CAPSULE.DR GT SCH (05:40)
[2018-08-06] MEDS: METOCLOPRAMIDE HCL 10 MG TABLET GT SCH ×3 (05:40→18:44)
[2018-08-06] MEDS: LEVOTHYROXINE SODIUM 88 MCG TABLET GT SCH (05:41)
[2018-08-06 06:18] VITALS: BP 116/58
[2018-08-06 07:45] VITALS: BP 110/53
[2018-08-06] MEDS: ZINC SULFATE 220 MG CAPSULE GT SCH (08:38)
[2018-08-06] MEDS: MULTIVIT W/MINERALS 1 TAB TABLET GT SCH (08:38)
[2018-08-06] MEDS: CARBOXYMETHYLCELLULOSE SODIUM 0.4 ML DROPERETTE EACHEYE SCH (08:38)
[2018-08-06] MEDS: LEVETIRACETAM SOL (5 ML) 100 MG/ML UDC GT SCH ×2 (08:38→21:20)
[2018-08-06] MEDS: MORPHINE SULFATE SOLN CONCENTRATED 20 MG/ML SL SCH ×2 (08:38→21:20)
[2018-08-06] MEDS: ACIDOPHILUS/BULGARICUS 1 EACH TAB.CHEW GT SCH (08:38)
[2018-08-06] MEDS: CHLORHEXIDINE GLUCONATE 15 ML UDC MM SCH ×2 (08:38→17:00)
[2018-08-06] MEDS: ASCORBIC ACID 500 MG TABLET GT SCH (08:38)
[2018-08-06] MEDS: PROSTAT (PYXIS) 30 ML UDC GT SCH ×3 (08:38→17:00)
[2018-08-06] MEDS: COD LIVER OIL/ZINC OXIDE 120 GM TUBE TP SCH ×2 (09:15→21:20)
[2018-08-06] MEDS: THERAHONEY GEL 1.5 OZ TUBE TP SCH ×2 (09:15→21:20)
[2018-08-06] MEDS: NYSTATIN/TRIAMCIN CREAM 15 GM TUBE TP SCH ×2 (09:15→21:20)
[2018-08-06] MEDS: HYDROGEN PEROXIDE 480 ML BOTTLE TP SCH ×2 (09:15→21:20)
[2018-08-06 12:00] VITALS: BP 107/74
[2018-08-06 18:44] VITALS: BP 115/48
[2018-08-06 19:38] VITALS: BP 109/59
[2018-08-07] MEDS: METOCLOPRAMIDE HCL 10 MG TABLET GT SCH ×4 (00:14→17:12)
[2018-08-07 00:16] VITALS: BP 109/72
[2018-08-07] MEDS: ALBUTEROL FS 2.5 MG/3 ML VIAL.NEB NEB SCH ×4 (00:59→19:34)
[2018-08-07] MEDS: IPRATROPIUM NEB FS 0.5 MG/2.5 ML AMPUL.NEB IH SCH ×4 (00:59→19:34)
[2018-08-07] MEDS: OMEPRAZOLE 20 MG CAPSULE.DR GT SCH (05:52)
[2018-08-07] MEDS: LEVOTHYROXINE SODIUM 88 MCG TABLET GT SCH (05:52)
[2018-08-07 06:15] VITALS: BP 112/58
[2018-08-07 07:35] VITALS: BP 118/61
[2018-08-07] MEDS: MULTIVIT W/MINERALS 1 TAB TABLET GT SCH (08:50)
[2018-08-07] MEDS: PROSTAT (PYXIS) 30 ML UDC GT SCH ×3 (08:50→17:12)
[2018-08-07] MEDS: LEVETIRACETAM SOL (5 ML) 100 MG/ML UDC GT SCH ×2 (08:50→21:04)
[2018-08-07] MEDS: CHLORHEXIDINE GLUCONATE 15 ML UDC MM SCH ×2 (08:50→17:12)
[2018-08-07] MEDS: ACIDOPHILUS/BULGARICUS 1 EACH TAB.CHEW GT SCH (08:50)
[2018-08-07] MEDS: CARBOXYMETHYLCELLULOSE SODIUM 0.4 ML DROPERETTE EACHEYE SCH (08:50)
[2018-08-07] MEDS: ZINC SULFATE 220 MG CAPSULE GT SCH (08:50)
[2018-08-07] MEDS: ASCORBIC ACID 500 MG TABLET GT SCH (08:50)
[2018-08-07] MEDS: HYDROGEN PEROXIDE 480 ML BOTTLE TP SCH ×2 (10:00→21:05)
[2018-08-07] MEDS: MORPHINE SULFATE SOLN CONCENTRATED 20 MG/ML SL SCH ×2 (10:00→21:04)
[2018-08-07] MEDS: COD LIVER OIL/ZINC OXIDE 120 GM TUBE TP SCH ×2 (11:00→21:04)
[2018-08-07] MEDS: NYSTATIN/TRIAMCIN CREAM 15 GM TUBE TP SCH ×2 (11:00→21:05)
[2018-08-07] MEDS: THERAHONEY GEL 1.5 OZ TUBE TP SCH ×2 (11:00→21:05)
[2018-08-07 12:00] VITALS: BP 117/79
--- NOTE | 2018-08-07 12:00 | NUR ---
Pt noted with clear fluid-filled closed blister on the right anterior thigh. Notified Dr Darryl Winters. He ordered to apply betadine paint q shift for 14 days. Daughter aware.
[2018-08-07 18:47] VITALS: BP 110/46
[2018-08-07 20:43] VITALS: BP 108/52
[2018-08-07] MEDS: POVIDONE-IODINE OINT 28.4 GM TUBE TP SCH (21:04)
[2018-08-08 00:12] VITALS: BP 108/70
[2018-08-08] MEDS: METOCLOPRAMIDE HCL 10 MG TABLET GT SCH ×4 (00:17→17:56)
[2018-08-08] MEDS: IPRATROPIUM NEB FS 0.5 MG/2.5 ML AMPUL.NEB IH SCH ×4 (02:20→20:06)
[2018-08-08] MEDS: ALBUTEROL FS 2.5 MG/3 ML VIAL.NEB NEB SCH ×4 (02:20→20:06)
[2018-08-08] MEDS: OMEPRAZOLE 20 MG CAPSULE.DR GT SCH (05:55)
[2018-08-08] MEDS: LEVOTHYROXINE SODIUM 88 MCG TABLET GT SCH (05:56)
[2018-08-08 06:05] VITALS: BP 102/58
[2018-08-08 07:40] VITALS: BP 101/47
[2018-08-08] MEDS: ZINC SULFATE 220 MG CAPSULE GT SCH (08:15)
[2018-08-08] MEDS: MULTIVIT W/MINERALS 1 TAB TABLET GT SCH (08:15)
[2018-08-08] MEDS: ASCORBIC ACID 500 MG TABLET GT SCH (08:15)
[2018-08-08] MEDS: PROSTAT (PYXIS) 30 ML UDC GT SCH ×3 (08:15→17:56)
[2018-08-08] MEDS: MORPHINE SULFATE SOLN CONCENTRATED 20 MG/ML SL SCH ×2 (08:15→20:48)
[2018-08-08] MEDS: CHLORHEXIDINE GLUCONATE 15 ML UDC MM SCH ×2 (08:15→17:56)
[2018-08-08] MEDS: CARBOXYMETHYLCELLULOSE SODIUM 0.4 ML DROPERETTE EACHEYE SCH (08:15)
[2018-08-08] MEDS: LEVETIRACETAM SOL (5 ML) 100 MG/ML UDC GT SCH ×2 (08:15→20:48)
[2018-08-08] MEDS: ACIDOPHILUS/BULGARICUS 1 EACH TAB.CHEW GT SCH (08:15)
[2018-08-08] MEDS: NYSTATIN/TRIAMCIN CREAM 15 GM TUBE TP SCH ×2 (08:18→21:35)
[2018-08-08] MEDS: HYDROGEN PEROXIDE 480 ML BOTTLE TP SCH ×2 (08:18→21:35)
[2018-08-08] MEDS: COD LIVER OIL/ZINC OXIDE 120 GM TUBE TP SCH ×2 (08:18→21:34)
[2018-08-08] MEDS: POVIDONE-IODINE OINT 28.4 GM TUBE TP SCH ×2 (08:18→21:34)
[2018-08-08] MEDS: THERAHONEY GEL 1.5 OZ TUBE TP SCH ×2 (08:19→21:35)
[2018-08-08 12:00] VITALS: BP 108/62
[2018-08-08 18:00] VITALS: BP 114/72
[2018-08-08 19:54] VITALS: BP 98/64
[2018-08-09 00:12] VITALS: BP 125/65
[2018-08-09] MEDS: METOCLOPRAMIDE HCL 10 MG TABLET GT SCH ×5 (00:12→23:28)
[2018-08-09] MEDS: IPRATROPIUM NEB FS 0.5 MG/2.5 ML AMPUL.NEB IH SCH ×4 (01:33→19:57)
[2018-08-09] MEDS: ALBUTEROL FS 2.5 MG/3 ML VIAL.NEB NEB SCH ×4 (01:33→19:57)
[2018-08-09] MEDS: OMEPRAZOLE 20 MG CAPSULE.DR GT SCH (05:36)
[2018-08-09] MEDS: LEVOTHYROXINE SODIUM 88 MCG TABLET GT SCH (05:36)
[2018-08-09] MEDS: GLUCERNA 1.2 1,000 ML BOTTLE GT PRN (05:58)
[2018-08-09 06:19] VITALS: BP 104/59
[2018-08-09 07:46] VITALS: BP 120/56
[2018-08-09] MEDS: CARBOXYMETHYLCELLULOSE SODIUM 0.4 ML DROPERETTE EACHEYE SCH (08:16)
[2018-08-09] MEDS: MULTIVIT W/MINERALS 1 TAB TABLET GT SCH (08:16)
[2018-08-09] MEDS: LEVETIRACETAM SOL (5 ML) 100 MG/ML UDC GT SCH ×2 (08:16→20:32)
[2018-08-09] MEDS: ZINC SULFATE 220 MG CAPSULE GT SCH (08:16)
[2018-08-09] MEDS: MORPHINE SULFATE SOLN CONCENTRATED 20 MG/ML SL SCH ×2 (08:16→20:32)
[2018-08-09] MEDS: CHLORHEXIDINE GLUCONATE 15 ML UDC MM SCH ×2 (08:16→17:42)
[2018-08-09] MEDS: ACIDOPHILUS/BULGARICUS 1 EACH TAB.CHEW GT SCH (08:16)
[2018-08-09] MEDS: PROSTAT (PYXIS) 30 ML UDC GT SCH ×3 (08:16→17:42)
[2018-08-09] MEDS: ASCORBIC ACID 500 MG TABLET GT SCH (08:16)
[2018-08-09] MEDS: HYDROGEN PEROXIDE 480 ML BOTTLE TP SCH ×2 (08:53→20:33)
[2018-08-09] MEDS: POVIDONE-IODINE OINT 28.4 GM TUBE TP SCH ×2 (08:53→20:32)
[2018-08-09] MEDS: THERAHONEY GEL 1.5 OZ TUBE TP SCH ×2 (08:53→20:33)
[2018-08-09] MEDS: COD LIVER OIL/ZINC OXIDE 120 GM TUBE TP SCH ×2 (08:53→20:33)
[2018-08-09] MEDS: NYSTATIN/TRIAMCIN CREAM 15 GM TUBE TP SCH ×2 (08:53→20:33)
[2018-08-09 12:00] VITALS: BP 124/70
[2018-08-09 18:21] VITALS: BP 117/67
[2018-08-09 20:32] VITALS: BP 106/63
[2018-08-10 00:05] VITALS: BP 110/58
[2018-08-10] MEDS: ALBUTEROL FS 2.5 MG/3 ML VIAL.NEB NEB SCH ×4 (01:28→19:23)
[2018-08-10] MEDS: IPRATROPIUM NEB FS 0.5 MG/2.5 ML AMPUL.NEB IH SCH ×4 (01:28→19:23)
[2018-08-10] MEDS: METOCLOPRAMIDE HCL 10 MG TABLET GT SCH ×3 (05:42→17:07)
[2018-08-10] MEDS: OMEPRAZOLE 20 MG CAPSULE.DR GT SCH (05:42)
[2018-08-10] MEDS: LEVOTHYROXINE SODIUM 88 MCG TABLET GT SCH (05:42)
[2018-08-10] MEDS: GLUCERNA 1.2 1,000 ML BOTTLE GT PRN (05:43)
[2018-08-10 06:18] VITALS: BP 114/58
[2018-08-10 07:52] VITALS: BP 98/55
[2018-08-10] MEDS: CHLORHEXIDINE GLUCONATE 15 ML UDC MM SCH ×2 (09:00→17:07)
[2018-08-10] MEDS: HYDROGEN PEROXIDE 480 ML BOTTLE TP SCH ×2 (09:00→21:21)
[2018-08-10] MEDS: POVIDONE-IODINE OINT 28.4 GM TUBE TP SCH ×2 (09:00→21:20)
[2018-08-10] MEDS: COD LIVER OIL/ZINC OXIDE 120 GM TUBE TP SCH ×2 (09:00→21:21)
[2018-08-10] MEDS: ASCORBIC ACID 500 MG TABLET GT SCH (09:58)
[2018-08-10] MEDS: ZINC SULFATE 220 MG CAPSULE GT SCH (09:58)
[2018-08-10] MEDS: MULTIVIT W/MINERALS 1 TAB TABLET GT SCH (09:59)
[2018-08-10] MEDS: CARBOXYMETHYLCELLULOSE SODIUM 0.4 ML DROPERETTE EACHEYE SCH (09:59)
[2018-08-10] MEDS: PROSTAT (PYXIS) 30 ML UDC GT SCH ×3 (09:59→17:07)
[2018-08-10] MEDS: LEVETIRACETAM SOL (5 ML) 100 MG/ML UDC GT SCH ×2 (09:59→21:20)
[2018-08-10] MEDS: ACIDOPHILUS/BULGARICUS 1 EACH TAB.CHEW GT SCH (09:59)
[2018-08-10] MEDS: MORPHINE SULFATE SOLN CONCENTRATED 20 MG/ML SL SCH ×2 (10:01→21:22)
[2018-08-10] MEDS: THERAHONEY GEL 1.5 OZ TUBE TP SCH ×2 (10:30→21:21)
[2018-08-10] MEDS: NYSTATIN/TRIAMCIN CREAM 15 GM TUBE TP SCH ×2 (10:30→21:21)
[2018-08-10 12:00] VITALS: BP 108/57
[2018-08-10 18:00] VITALS: BP 100/48
[2018-08-10 19:57] VITALS: BP 102/62
[2018-08-11] VITALS: BP 97/53
[2018-08-11] MEDS: METOCLOPRAMIDE HCL 10 MG TABLET GT SCH ×5 (00:08→23:38)
[2018-08-11] MEDS: ALBUTEROL FS 2.5 MG/3 ML VIAL.NEB NEB SCH ×4 (01:16→19:33)
[2018-08-11] MEDS: IPRATROPIUM NEB FS 0.5 MG/2.5 ML AMPUL.NEB IH SCH ×4 (01:16→19:33)
[2018-08-11] MEDS: GLUCERNA 1.2 1,000 ML BOTTLE GT PRN (04:14)
[2018-08-11] MEDS: OMEPRAZOLE 20 MG CAPSULE.DR GT SCH (05:06)
[2018-08-11] MEDS: LEVOTHYROXINE SODIUM 88 MCG TABLET GT SCH (05:06)
[2018-08-11 06:00] VITALS: BP 99/45
[2018-08-11 07:54] VITALS: BP 116/57
[2018-08-11 08:00] VITALS: BP 116/57
[2018-08-11] MEDS: MULTIVIT W/MINERALS 1 TAB TABLET GT SCH (08:24)
[2018-08-11] MEDS: LEVETIRACETAM SOL (5 ML) 100 MG/ML UDC GT SCH ×2 (08:24→20:34)
[2018-08-11] MEDS: ZINC SULFATE 220 MG CAPSULE GT SCH (08:33)
[2018-08-11] MEDS: CHLORHEXIDINE GLUCONATE 15 ML UDC MM SCH ×2 (08:33→17:00)
[2018-08-11] MEDS: COD LIVER OIL/ZINC OXIDE 120 GM TUBE TP SCH ×2 (08:34→20:34)
[2018-08-11] MEDS: POVIDONE-IODINE OINT 28.4 GM TUBE TP SCH ×2 (08:34→20:34)
[2018-08-11] MEDS: NYSTATIN/TRIAMCIN CREAM 15 GM TUBE TP SCH ×2 (08:34→20:35)
[2018-08-11] MEDS: HYDROGEN PEROXIDE 480 ML BOTTLE TP SCH ×2 (08:34→20:35)
[2018-08-11] MEDS: MORPHINE SULFATE SOLN CONCENTRATED 20 MG/ML SL SCH ×2 (08:34→20:34)
[2018-08-11] MEDS: THERAHONEY GEL 1.5 OZ TUBE TP SCH ×2 (08:35→20:35)
[2018-08-11] MEDS: ASCORBIC ACID 500 MG TABLET GT SCH (08:35)
[2018-08-11] MEDS: PROSTAT (PYXIS) 30 ML UDC GT SCH ×3 (08:35→17:00)
[2018-08-11] MEDS: CARBOXYMETHYLCELLULOSE SODIUM 0.4 ML DROPERETTE EACHEYE SCH (08:53)
[2018-08-11] MEDS: ACIDOPHILUS/BULGARICUS 1 EACH TAB.CHEW GT SCH (13:40)
[2018-08-11 20:26] VITALS: BP 110/55
[2018-08-12] VITALS (7 sets, daily range): BP systolic 96–131; BP diastolic 46–65
[2018-08-12] MEDS: IPRATROPIUM NEB FS 0.5 MG/2.5 ML AMPUL.NEB IH SCH ×4 (01:28→19:40)
[2018-08-12] MEDS: ALBUTEROL FS 2.5 MG/3 ML VIAL.NEB NEB SCH ×4 (01:28→19:40)
[2018-08-12] MEDS: GLUCERNA 1.2 1,000 ML BOTTLE GT PRN (04:21)
[2018-08-12] MEDS: LEVOTHYROXINE SODIUM 88 MCG TABLET GT SCH (05:38)
[2018-08-12] MEDS: OMEPRAZOLE 20 MG CAPSULE.DR GT SCH (05:38)
[2018-08-12] MEDS: METOCLOPRAMIDE HCL 10 MG TABLET GT SCH ×3 (05:38→17:19)
[2018-08-12] MEDS: ASCORBIC ACID 500 MG TABLET GT SCH (08:55)
[2018-08-12] MEDS: ZINC SULFATE 220 MG CAPSULE GT SCH (08:55)
[2018-08-12] MEDS: ACIDOPHILUS/BULGARICUS 1 EACH TAB.CHEW GT SCH (08:55)
[2018-08-12] MEDS: PROSTAT (PYXIS) 30 ML UDC GT SCH ×3 (08:55→17:14)
[2018-08-12] MEDS: CARBOXYMETHYLCELLULOSE SODIUM 0.4 ML DROPERETTE EACHEYE SCH (08:55)
[2018-08-12] MEDS: MORPHINE SULFATE SOLN CONCENTRATED 20 MG/ML SL SCH ×2 (08:57→21:14)
[2018-08-12] MEDS: COD LIVER OIL/ZINC OXIDE 120 GM TUBE TP SCH ×2 (09:00→21:14)
[2018-08-12] MEDS: NYSTATIN/TRIAMCIN CREAM 15 GM TUBE TP SCH ×2 (09:00→21:14)
[2018-08-12] MEDS: POVIDONE-IODINE OINT 28.4 GM TUBE TP SCH ×2 (09:00→21:14)
[2018-08-12] MEDS: THERAHONEY GEL 1.5 OZ TUBE TP SCH ×2 (09:00→21:14)
[2018-08-12] MEDS: HYDROGEN PEROXIDE 480 ML BOTTLE TP SCH ×2 (09:00→21:14)
[2018-08-12] MEDS: CHLORHEXIDINE GLUCONATE 15 ML UDC MM SCH ×2 (09:12→17:14)
[2018-08-12] MEDS: MULTIVIT W/MINERALS 1 TAB TABLET GT SCH (09:12)
[2018-08-12] MEDS: LEVETIRACETAM SOL (5 ML) 100 MG/ML UDC GT SCH ×2 (09:12→21:14)
[2018-08-13] VITALS: BP 106/61
[2018-08-13] MEDS: METOCLOPRAMIDE HCL 10 MG TABLET GT SCH ×4 (00:11→17:59)
[2018-08-13] MEDS: ALBUTEROL FS 2.5 MG/3 ML VIAL.NEB NEB SCH ×4 (01:35→19:43)
[2018-08-13] MEDS: IPRATROPIUM NEB FS 0.5 MG/2.5 ML AMPUL.NEB IH SCH ×4 (01:35→19:43)
[2018-08-13 06:00] VITALS: BP 113/59
[2018-08-13] MEDS: LEVOTHYROXINE SODIUM 88 MCG TABLET GT SCH (06:11)
[2018-08-13] MEDS: OMEPRAZOLE 20 MG CAPSULE.DR GT SCH (06:11)
[2018-08-13] MEDS: GLUCERNA 1.2 1,000 ML BOTTLE GT PRN (06:12)
[2018-08-13] MEDS: ZINC SULFATE 220 MG CAPSULE GT SCH (08:41)
[2018-08-13] MEDS: CARBOXYMETHYLCELLULOSE SODIUM 0.4 ML DROPERETTE EACHEYE SCH (08:41)
[2018-08-13] MEDS: MORPHINE SULFATE SOLN CONCENTRATED 20 MG/ML SL SCH ×2 (08:41→22:09)
[2018-08-13] MEDS: MULTIVIT W/MINERALS 1 TAB TABLET GT SCH (08:41)
[2018-08-13] MEDS: CHLORHEXIDINE GLUCONATE 15 ML UDC MM SCH ×2 (08:41→17:58)
[2018-08-13] MEDS: PROSTAT (PYXIS) 30 ML UDC GT SCH ×3 (08:41→17:58)
[2018-08-13] MEDS: ACIDOPHILUS/BULGARICUS 1 EACH TAB.CHEW GT SCH (08:41)
[2018-08-13] MEDS: LEVETIRACETAM SOL (5 ML) 100 MG/ML UDC GT SCH ×2 (08:41→22:08)
[2018-08-13] MEDS: ASCORBIC ACID 500 MG TABLET GT SCH (08:41)
[2018-08-13 08:46] VITALS: BP 103/55
[2018-08-13] MEDS: HYDROGEN PEROXIDE 480 ML BOTTLE TP SCH ×2 (09:00→21:00)
[2018-08-13] MEDS: COD LIVER OIL/ZINC OXIDE 120 GM TUBE TP SCH ×2 (09:00→21:00)
[2018-08-13] MEDS: POVIDONE-IODINE OINT 28.4 GM TUBE TP SCH ×2 (09:00→21:00)
[2018-08-13] MEDS: NYSTATIN/TRIAMCIN CREAM 15 GM TUBE TP SCH ×2 (09:00→21:00)
[2018-08-13] MEDS: THERAHONEY GEL 1.5 OZ TUBE TP SCH ×2 (09:00→21:00)
[2018-08-13 12:00] VITALS: BP 99/63
[2018-08-13 18:00] VITALS: BP 99/47
[2018-08-13 20:09] VITALS: BP 98/51
[2018-08-14] VITALS: BP 104/64
[2018-08-14] MEDS: ALBUTEROL FS 2.5 MG/3 ML VIAL.NEB NEB SCH ×4 (01:46→19:20)
[2018-08-14] MEDS: IPRATROPIUM NEB FS 0.5 MG/2.5 ML AMPUL.NEB IH SCH ×4 (01:46→19:20)
[2018-08-14] MEDS: OMEPRAZOLE 20 MG CAPSULE.DR GT SCH (05:46)
[2018-08-14] MEDS: METOCLOPRAMIDE HCL 10 MG TABLET GT SCH ×5 (05:46→23:40)
[2018-08-14] MEDS: LEVOTHYROXINE SODIUM 88 MCG TABLET GT SCH (05:46)
[2018-08-14] MEDS: GLUCERNA 1.2 1,000 ML BOTTLE GT PRN (05:52)
[2018-08-14 06:38] VITALS: BP 100/60
[2018-08-14 07:22] VITALS: BP 106/75
[2018-08-14] MEDS: MORPHINE SULFATE SOLN CONCENTRATED 20 MG/ML SL SCH ×2 (08:27→20:23)
[2018-08-14] MEDS: ASCORBIC ACID 500 MG TABLET GT SCH (08:27)
[2018-08-14] MEDS: CHLORHEXIDINE GLUCONATE 15 ML UDC MM SCH ×2 (08:27→17:18)
[2018-08-14] MEDS: ZINC SULFATE 220 MG CAPSULE GT SCH (08:27)
[2018-08-14] MEDS: ACIDOPHILUS/BULGARICUS 1 EACH TAB.CHEW GT SCH (08:27)
[2018-08-14] MEDS: CARBOXYMETHYLCELLULOSE SODIUM 0.4 ML DROPERETTE EACHEYE SCH (08:27)
[2018-08-14] MEDS: HYDROGEN PEROXIDE 480 ML BOTTLE TP SCH ×2 (08:27→21:09)
[2018-08-14] MEDS: MULTIVIT W/MINERALS 1 TAB TABLET GT SCH (08:27)
[2018-08-14] MEDS: LEVETIRACETAM SOL (5 ML) 100 MG/ML UDC GT SCH ×2 (08:27→20:23)
[2018-08-14] MEDS: PROSTAT (PYXIS) 30 ML UDC GT SCH ×3 (08:27→17:18)
[2018-08-14] MEDS: NYSTATIN/TRIAMCIN CREAM 15 GM TUBE TP SCH ×2 (09:30→21:09)
[2018-08-14] MEDS: THERAHONEY GEL 1.5 OZ TUBE TP SCH ×2 (09:30→21:09)
[2018-08-14] MEDS: POVIDONE-IODINE OINT 28.4 GM TUBE TP SCH ×2 (09:30→20:23)
[2018-08-14] MEDS: COD LIVER OIL/ZINC OXIDE 120 GM TUBE TP SCH ×2 (09:30→21:09)
[2018-08-14 12:00] VITALS: BP 102/57
--- NOTE | 2018-08-14 12:12 | NUR ---
JOSSE communicated with pt's daughter Reyna and informed of iDT mtg this Thursday 08/17 at 12:30 PM.
[2018-08-14 18:44] VITALS: BP 110/65
[2018-08-14 19:52] VITALS: BP 111/63
[2018-08-15 00:46] VITALS: BP 111/78
[2018-08-15] MEDS: IPRATROPIUM NEB FS 0.5 MG/2.5 ML AMPUL.NEB IH SCH ×4 (00:55→19:38)
[2018-08-15] MEDS: ALBUTEROL FS 2.5 MG/3 ML VIAL.NEB NEB SCH ×4 (00:55→19:38)
[2018-08-15] MEDS: OMEPRAZOLE 20 MG CAPSULE.DR GT SCH (05:10)
[2018-08-15] MEDS: LEVOTHYROXINE SODIUM 88 MCG TABLET GT SCH (05:10)
[2018-08-15] MEDS: METOCLOPRAMIDE HCL 10 MG TABLET GT SCH ×3 (05:10→23:42)
[2018-08-15 06:23] VITALS: BP 116/70
[2018-08-15 07:25] VITALS: BP 110/62
[2018-08-15] MEDS: THERAHONEY GEL 1.5 OZ TUBE TP SCH ×2 (09:00→21:07)
[2018-08-15] MEDS: NYSTATIN/TRIAMCIN CREAM 15 GM TUBE TP SCH ×2 (09:00→21:07)
[2018-08-15] MEDS: ASCORBIC ACID 500 MG TABLET GT SCH (09:13)
[2018-08-15] MEDS: ZINC SULFATE 220 MG CAPSULE GT SCH (09:13)
[2018-08-15] MEDS: CARBOXYMETHYLCELLULOSE SODIUM 0.4 ML DROPERETTE EACHEYE SCH (09:13)
[2018-08-15] MEDS: LEVETIRACETAM SOL (5 ML) 100 MG/ML UDC GT SCH ×2 (09:13→20:31)
[2018-08-15] MEDS: ACIDOPHILUS/BULGARICUS 1 EACH TAB.CHEW GT SCH (09:13)
[2018-08-15] MEDS: MULTIVIT W/MINERALS 1 TAB TABLET GT SCH (09:13)
[2018-08-15] MEDS: PROSTAT (PYXIS) 30 ML UDC GT SCH ×3 (09:13→16:29)
[2018-08-15] MEDS: HYDROGEN PEROXIDE 480 ML BOTTLE TP SCH ×2 (09:14→21:07)
[2018-08-15] MEDS: CHLORHEXIDINE GLUCONATE 15 ML UDC MM SCH ×2 (09:14→16:29)
[2018-08-15] MEDS: MORPHINE SULFATE SOLN CONCENTRATED 20 MG/ML SL SCH ×2 (09:14→20:31)
[2018-08-15] MEDS: COD LIVER OIL/ZINC OXIDE 120 GM TUBE TP SCH ×2 (09:14→21:07)
[2018-08-15] MEDS: POVIDONE-IODINE OINT 28.4 GM TUBE TP SCH ×2 (09:14→21:07)
[2018-08-15] MEDS: GLUCERNA 1.2 1,000 ML BOTTLE GT PRN (11:50)
[2018-08-15 18:56] VITALS: BP 110/62
[2018-08-15 18:57] VITALS: BP 105/60
[2018-08-15 19:36] VITALS: BP 97/54
[2018-08-16 00:53] VITALS: BP 100/56
[2018-08-16] MEDS: ALBUTEROL FS 2.5 MG/3 ML VIAL.NEB NEB SCH ×4 (01:35→19:22)
[2018-08-16] MEDS: IPRATROPIUM NEB FS 0.5 MG/2.5 ML AMPUL.NEB IH SCH ×4 (01:35→19:22)
[2018-08-16] MEDS: LEVOTHYROXINE SODIUM 88 MCG TABLET GT SCH (05:25)
[2018-08-16] MEDS: OMEPRAZOLE 20 MG CAPSULE.DR GT SCH (05:25)
[2018-08-16] MEDS: METOCLOPRAMIDE HCL 10 MG TABLET GT SCH ×4 (05:25→23:29)
[2018-08-16 06:29] VITALS: BP 106/60
[2018-08-16 07:37] VITALS: BP 93/56
[2018-08-16] MEDS: ACIDOPHILUS/BULGARICUS 1 EACH TAB.CHEW GT SCH (08:51)
[2018-08-16] MEDS: POVIDONE-IODINE OINT 28.4 GM TUBE TP SCH ×2 (08:51→20:39)
[2018-08-16] MEDS: ASCORBIC ACID 500 MG TABLET GT SCH (08:51)
[2018-08-16] MEDS: MULTIVIT W/MINERALS 1 TAB TABLET GT SCH (08:51)
[2018-08-16] MEDS: CHLORHEXIDINE GLUCONATE 15 ML UDC MM SCH ×2 (08:51→17:54)
[2018-08-16] MEDS: PROSTAT (PYXIS) 30 ML UDC GT SCH ×3 (08:51→17:54)
[2018-08-16] MEDS: LEVETIRACETAM SOL (5 ML) 100 MG/ML UDC GT SCH ×2 (08:51→20:39)
[2018-08-16] MEDS: ZINC SULFATE 220 MG CAPSULE GT SCH (08:51)
[2018-08-16] MEDS: COD LIVER OIL/ZINC OXIDE 120 GM TUBE TP SCH ×2 (08:51→20:39)
[2018-08-16] MEDS: MORPHINE SULFATE SOLN CONCENTRATED 20 MG/ML SL SCH ×2 (08:51→20:39)
[2018-08-16] MEDS: CARBOXYMETHYLCELLULOSE SODIUM 0.4 ML DROPERETTE EACHEYE SCH (08:51)
[2018-08-16] MEDS: THERAHONEY GEL 1.5 OZ TUBE TP SCH ×2 (08:52→20:39)
[2018-08-16] MEDS: NYSTATIN/TRIAMCIN CREAM 15 GM TUBE TP SCH ×2 (08:52→20:39)
[2018-08-16] MEDS: HYDROGEN PEROXIDE 480 ML BOTTLE TP SCH ×2 (08:52→20:39)
[2018-08-16 12:30] VITALS: BP 118/59
[2018-08-16 18:50] VITALS: BP_SYST 102; BP_SYST 93; BP_DIAS 56; BP_DIAS 60
[2018-08-16 20:37] VITALS: BP 128/51
[2018-08-17] MEDS: IPRATROPIUM NEB FS 0.5 MG/2.5 ML AMPUL.NEB IH SCH ×4 (00:58→20:15)
[2018-08-17] MEDS: ALBUTEROL FS 2.5 MG/3 ML VIAL.NEB NEB SCH ×4 (00:58→20:15)
[2018-08-17 01:18] VITALS: BP 107/60
[2018-08-17] MEDS: LEVOTHYROXINE SODIUM 88 MCG TABLET GT SCH (05:40)
[2018-08-17] MEDS: METOCLOPRAMIDE HCL 10 MG TABLET GT SCH ×3 (05:40→18:25)
[2018-08-17] MEDS: OMEPRAZOLE 20 MG CAPSULE.DR GT SCH (05:40)
[2018-08-17 06:09] VITALS: BP 110/62
[2018-08-17 07:57] VITALS: BP 104/54
[2018-08-17] MEDS: CHLORHEXIDINE GLUCONATE 15 ML UDC MM SCH ×2 (09:08→17:00)
[2018-08-17] MEDS: COD LIVER OIL/ZINC OXIDE 120 GM TUBE TP SCH ×2 (09:08→20:51)
[2018-08-17] MEDS: ASCORBIC ACID 500 MG TABLET GT SCH (09:08)
[2018-08-17] MEDS: ZINC SULFATE 220 MG CAPSULE GT SCH (09:08)
[2018-08-17] MEDS: HYDROGEN PEROXIDE 480 ML BOTTLE TP SCH ×2 (09:08→20:51)
[2018-08-17] MEDS: MORPHINE SULFATE SOLN CONCENTRATED 20 MG/ML SL SCH ×2 (09:08→20:50)
[2018-08-17] MEDS: CARBOXYMETHYLCELLULOSE SODIUM 0.4 ML DROPERETTE EACHEYE SCH (09:08)
[2018-08-17] MEDS: MULTIVIT W/MINERALS 1 TAB TABLET GT SCH (09:08)
[2018-08-17] MEDS: PROSTAT (PYXIS) 30 ML UDC GT SCH ×3 (09:08→17:00)
[2018-08-17] MEDS: NYSTATIN/TRIAMCIN CREAM 15 GM TUBE TP SCH ×2 (09:08→20:51)
[2018-08-17] MEDS: POVIDONE-IODINE OINT 28.4 GM TUBE TP SCH ×2 (09:08→20:51)
[2018-08-17] MEDS: LEVETIRACETAM SOL (5 ML) 100 MG/ML UDC GT SCH ×2 (09:08→20:50)
[2018-08-17] MEDS: THERAHONEY GEL 1.5 OZ TUBE TP SCH ×2 (09:08→20:51)
[2018-08-17] MEDS: ACIDOPHILUS/BULGARICUS 1 EACH TAB.CHEW GT SCH (09:08)
[2018-08-17 12:30] VITALS: BP 106/55
[2018-08-17] MEDS: GLUCERNA 1.2 1,000 ML BOTTLE GT PRN (13:31)
--- NOTE | 2018-08-17 15:27 | NUR ---
INTERDISCIPLINARY TEAM CONFERENCE (IDT) was held today. Resident's family member was not able to attend today's IDT meeting. Dr. Monet and the interdisciplinary team reviewed the current plan of care in detail. Orders as well as treatment and medications were reviewed. Reported that patient has scattered rashes in the abdomen new order given for Lotrisone cream. Left a message to Reyna(daughter) regarding new order.
[2018-08-17 18:58] VITALS: BP 102/58
[2018-08-17 19:42] VITALS: BP 102/43
[2018-08-17] MEDS: CLOTRIMAZOLE/BETAMETASONE DIPROPIONATE 15 GM TUBE TP SCH (20:51)
[2018-08-18] MEDS: METOCLOPRAMIDE HCL 10 MG TABLET GT SCH ×5 (00:08→23:39)
[2018-08-18 00:30] VITALS: BP 96/54
[2018-08-18] MEDS: ALBUTEROL FS 2.5 MG/3 ML VIAL.NEB NEB SCH ×4 (01:47→20:08)
[2018-08-18] MEDS: IPRATROPIUM NEB FS 0.5 MG/2.5 ML AMPUL.NEB IH SCH ×4 (01:47→20:08)
[2018-08-18] MEDS: OMEPRAZOLE 20 MG CAPSULE.DR GT SCH (05:56)
[2018-08-18] MEDS: LEVOTHYROXINE SODIUM 88 MCG TABLET GT SCH (05:56)
[2018-08-18 06:08] VITALS: BP 103/57
[2018-08-18 07:35] VITALS: BP 105/63
[2018-08-18] MEDS: CARBOXYMETHYLCELLULOSE SODIUM 0.4 ML DROPERETTE EACHEYE SCH (08:57)
[2018-08-18] MEDS: PROSTAT (PYXIS) 30 ML UDC GT SCH ×3 (08:57→17:13)
[2018-08-18] MEDS: MORPHINE SULFATE SOLN CONCENTRATED 20 MG/ML SL SCH ×2 (08:57→20:16)
[2018-08-18] MEDS: LEVETIRACETAM SOL (5 ML) 100 MG/ML UDC GT SCH ×2 (08:57→20:16)
[2018-08-18] MEDS: ASCORBIC ACID 500 MG TABLET GT SCH (08:57)
[2018-08-18] MEDS: ACIDOPHILUS/BULGARICUS 1 EACH TAB.CHEW GT SCH (08:57)
[2018-08-18] MEDS: MULTIVIT W/MINERALS 1 TAB TABLET GT SCH (08:57)
[2018-08-18] MEDS: ZINC SULFATE 220 MG CAPSULE GT SCH (08:57)
[2018-08-18] MEDS: POVIDONE-IODINE OINT 28.4 GM TUBE TP SCH ×2 (09:00→20:17)
[2018-08-18] MEDS: COD LIVER OIL/ZINC OXIDE 120 GM TUBE TP SCH ×2 (09:00→20:17)
[2018-08-18] MEDS: NYSTATIN/TRIAMCIN CREAM 15 GM TUBE TP SCH ×2 (09:00→20:17)
[2018-08-18] MEDS: CLOTRIMAZOLE/BETAMETASONE DIPROPIONATE 15 GM TUBE TP SCH ×2 (09:00→20:17)
[2018-08-18] MEDS: HYDROGEN PEROXIDE 480 ML BOTTLE TP SCH ×2 (09:00→20:17)
[2018-08-18] MEDS: CHLORHEXIDINE GLUCONATE 15 ML UDC MM SCH ×2 (09:00→17:13)
[2018-08-18] MEDS: THERAHONEY GEL 1.5 OZ TUBE TP SCH ×2 (09:00→20:17)
[2018-08-18 12:00] VITALS: BP 128/72
[2018-08-18] MEDS: GLUCERNA 1.2 1,000 ML BOTTLE GT PRN (14:26)
[2018-08-18 18:00] VITALS: BP 121/62
[2018-08-18 19:38] VITALS: BP 103/52
[2018-08-19 00:40] VITALS: BP 100/49
[2018-08-19] MEDS: IPRATROPIUM NEB FS 0.5 MG/2.5 ML AMPUL.NEB IH SCH ×4 (01:51→19:36)
[2018-08-19] MEDS: ALBUTEROL FS 2.5 MG/3 ML VIAL.NEB NEB SCH ×4 (01:51→19:36)
[2018-08-19] MEDS: OMEPRAZOLE 20 MG CAPSULE.DR GT SCH (05:34)
[2018-08-19] MEDS: METOCLOPRAMIDE HCL 10 MG TABLET GT SCH ×3 (05:34→18:03)
[2018-08-19] MEDS: LEVOTHYROXINE SODIUM 88 MCG TABLET GT SCH (05:34)
[2018-08-19 06:04] VITALS: BP 114/55
[2018-08-19 07:21] VITALS: BP 110/66
[2018-08-19] MEDS: ASCORBIC ACID 500 MG TABLET GT SCH (08:57)
[2018-08-19] MEDS: LEVETIRACETAM SOL (5 ML) 100 MG/ML UDC GT SCH ×2 (08:57→21:09)
[2018-08-19] MEDS: CHLORHEXIDINE GLUCONATE 15 ML UDC MM SCH ×2 (08:57→16:48)
[2018-08-19] MEDS: MULTIVIT W/MINERALS 1 TAB TABLET GT SCH (08:57)
[2018-08-19] MEDS: MORPHINE SULFATE SOLN CONCENTRATED 20 MG/ML SL SCH ×2 (08:57→21:09)
[2018-08-19] MEDS: ACIDOPHILUS/BULGARICUS 1 EACH TAB.CHEW GT SCH (08:57)
[2018-08-19] MEDS: ZINC SULFATE 220 MG CAPSULE GT SCH (08:57)
[2018-08-19] MEDS: CARBOXYMETHYLCELLULOSE SODIUM 0.4 ML DROPERETTE EACHEYE SCH (08:57)
[2018-08-19] MEDS: PROSTAT (PYXIS) 30 ML UDC GT SCH ×3 (08:57→16:48)
[2018-08-19] MEDS: POVIDONE-IODINE OINT 28.4 GM TUBE TP SCH ×3 (09:00→21:09)
[2018-08-19] MEDS: HYDROGEN PEROXIDE 480 ML BOTTLE TP SCH ×2 (09:00→21:10)
[2018-08-19] MEDS: THERAHONEY GEL 1.5 OZ TUBE TP SCH ×2 (09:00→21:10)
[2018-08-19] MEDS: COD LIVER OIL/ZINC OXIDE 120 GM TUBE TP SCH ×2 (09:00→21:10)
[2018-08-19] MEDS: NYSTATIN/TRIAMCIN CREAM 15 GM TUBE TP SCH ×2 (09:00→21:10)
[2018-08-19] MEDS: CLOTRIMAZOLE/BETAMETASONE DIPROPIONATE 15 GM TUBE TP SCH ×2 (09:00→21:10)
--- NOTE | 2018-08-19 09:00 | NUR ---
Seen and examined by Dr. Ross. New blister noted on left inner thigh, treatment ordered. Daughter Katelin informed.
[2018-08-19] MEDS: GLUCERNA 1.2 1,000 ML BOTTLE GT PRN (13:11)
[2018-08-19 15:36] VITALS: BP 105/58
--- NOTE | 2018-08-19 16:44 | NUR ---
Daughter Katelin came to visit resident with [place]. Manicure and pedicure done.
[2018-08-19 18:07] VITALS: BP 101/60
[2018-08-19 20:12] VITALS: BP 105/52
[2018-08-20] VITALS: BP 118/56
[2018-08-20] MEDS: METOCLOPRAMIDE HCL 10 MG TABLET GT SCH ×5 (00:19→23:38)
[2018-08-20] MEDS: ALBUTEROL FS 2.5 MG/3 ML VIAL.NEB NEB SCH ×4 (01:21→19:45)
[2018-08-20] MEDS: IPRATROPIUM NEB FS 0.5 MG/2.5 ML AMPUL.NEB IH SCH ×4 (01:21→19:45)
[2018-08-20 06:00] VITALS: BP 124/60
[2018-08-20] MEDS: LEVOTHYROXINE SODIUM 88 MCG TABLET GT SCH (06:13)
[2018-08-20] MEDS: OMEPRAZOLE 20 MG CAPSULE.DR GT SCH (06:13)
[2018-08-20 07:32] VITALS: BP 114/41
--- NOTE | 2018-08-20 09:50 | NUR ---
Notified Dr Ross that pt has scattered rashes on her body (abdomen, arms, legs), T 98.4 F. Bed bath provided.
[2018-08-20] MEDS: ASCORBIC ACID 500 MG TABLET GT SCH (09:56)
[2018-08-20] MEDS: ZINC SULFATE 220 MG CAPSULE GT SCH (09:56)
[2018-08-20] MEDS: ACIDOPHILUS/BULGARICUS 1 EACH TAB.CHEW GT SCH (09:56)
[2018-08-20] MEDS: MULTIVIT W/MINERALS 1 TAB TABLET GT SCH (09:56)
[2018-08-20] MEDS: LEVETIRACETAM SOL (5 ML) 100 MG/ML UDC GT SCH ×2 (09:56→20:22)
[2018-08-20] MEDS: MORPHINE SULFATE SOLN CONCENTRATED 20 MG/ML SL SCH ×2 (09:56→20:22)
[2018-08-20] MEDS: CARBOXYMETHYLCELLULOSE SODIUM 0.4 ML DROPERETTE EACHEYE SCH (09:56)
[2018-08-20] MEDS: CHLORHEXIDINE GLUCONATE 15 ML UDC MM SCH ×2 (09:56→17:17)
[2018-08-20] MEDS: PROSTAT (PYXIS) 30 ML UDC GT SCH ×3 (09:56→17:17)
[2018-08-20] MEDS: CLOTRIMAZOLE/BETAMETASONE DIPROPIONATE 15 GM TUBE TP SCH ×2 (10:30→21:08)
[2018-08-20] MEDS: NYSTATIN/TRIAMCIN CREAM 15 GM TUBE TP SCH ×2 (10:30→21:08)
[2018-08-20] MEDS: POVIDONE-IODINE OINT 28.4 GM TUBE TP SCH ×4 (10:30→21:08)
[2018-08-20] MEDS: COD LIVER OIL/ZINC OXIDE 120 GM TUBE TP SCH ×2 (10:30→21:08)
[2018-08-20] MEDS: HYDROGEN PEROXIDE 480 ML BOTTLE TP SCH ×2 (10:30→21:08)
[2018-08-20] MEDS: THERAHONEY GEL 1.5 OZ TUBE TP SCH ×2 (10:30→21:08)
[2018-08-20 12:00] VITALS: BP 103/58
[2018-08-20] MEDS: GLUCERNA 1.2 1,000 ML BOTTLE GT PRN (13:19)
[2018-08-20] MEDS: diphenhydrAMINE HCL ELIX 25 MG/10 ML UDC GT PRN (17:18)
--- NOTE | 2018-08-20 17:27 | NUR ---
Pt's daughter Reyna notified about pt's rashes. Benadryl was given to pt.
[2018-08-20 18:00] VITALS: BP 128/69
--- NOTE | 2018-08-20 19:07 | NUR ---
Seen by LOG GETTER Becca Smith. Showed her pt's rashes on abdomen, arms, legs. Informed her that pt was given Benadryl. No new order.
[2018-08-20 19:55] VITALS: BP 107/50
[2018-08-21] VITALS: BP 106/58
[2018-08-21] MEDS: ALBUTEROL FS 2.5 MG/3 ML VIAL.NEB NEB SCH ×4 (02:07→20:05)
[2018-08-21] MEDS: IPRATROPIUM NEB FS 0.5 MG/2.5 ML AMPUL.NEB IH SCH ×4 (02:07→20:05)
[2018-08-21] MEDS: OMEPRAZOLE 20 MG CAPSULE.DR GT SCH (05:36)
[2018-08-21] MEDS: LEVOTHYROXINE SODIUM 88 MCG TABLET GT SCH (05:36)
[2018-08-21] MEDS: METOCLOPRAMIDE HCL 10 MG TABLET GT SCH ×4 (05:36→23:44)
[2018-08-21 06:27] VITALS: BP 111/60
[2018-08-21 07:30] VITALS: BP 112/49
[2018-08-21] MEDS: CARBOXYMETHYLCELLULOSE SODIUM 0.4 ML DROPERETTE EACHEYE SCH (08:32)
[2018-08-21] MEDS: LEVETIRACETAM SOL (5 ML) 100 MG/ML UDC GT SCH ×2 (08:32→20:32)
[2018-08-21] MEDS: MULTIVIT W/MINERALS 1 TAB TABLET GT SCH (08:33)
[2018-08-21] MEDS: ASCORBIC ACID 500 MG TABLET GT SCH (08:33)
[2018-08-21] MEDS: ACIDOPHILUS/BULGARICUS 1 EACH TAB.CHEW GT SCH (08:33)
[2018-08-21] MEDS: ZINC SULFATE 220 MG CAPSULE GT SCH (08:33)
[2018-08-21] MEDS: CHLORHEXIDINE GLUCONATE 15 ML UDC MM SCH ×2 (08:33→17:00)
[2018-08-21] MEDS: PROSTAT (PYXIS) 30 ML UDC GT SCH ×3 (08:33→17:00)
[2018-08-21] MEDS: MORPHINE SULFATE SOLN CONCENTRATED 20 MG/ML SL SCH ×2 (08:33→20:32)
[2018-08-21] MEDS: COD LIVER OIL/ZINC OXIDE 120 GM TUBE TP SCH ×2 (09:00→21:08)
[2018-08-21] MEDS: CLOTRIMAZOLE/BETAMETASONE DIPROPIONATE 15 GM TUBE TP SCH ×2 (09:00→21:08)
[2018-08-21] MEDS: THERAHONEY GEL 1.5 OZ TUBE TP SCH ×2 (09:00→21:08)
[2018-08-21] MEDS: NYSTATIN/TRIAMCIN CREAM 15 GM TUBE TP SCH ×2 (09:00→21:08)
[2018-08-21] MEDS: POVIDONE-IODINE OINT 28.4 GM TUBE TP SCH ×2 (09:00→21:00)
[2018-08-21] MEDS: HYDROGEN PEROXIDE 480 ML BOTTLE TP SCH ×2 (09:00→21:08)
[2018-08-21] MEDS: diphenhydrAMINE HCL ELIX 25 MG/10 ML UDC GT PRN (09:58)
--- NOTE | 2018-08-21 11:07 | NUR ---
Seen and examined by Dr. Monet, NNO given.
[2018-08-21 12:00] VITALS: BP 108/58
[2018-08-21] MEDS: GLUCERNA 1.2 1,000 ML BOTTLE GT PRN (13:20)
[2018-08-21 18:00] VITALS: BP 105/55
[2018-08-21 19:34] VITALS: BP 117/59
[2018-08-22 00:43] VITALS: BP 114/58
[2018-08-22] MEDS: ALBUTEROL FS 2.5 MG/3 ML VIAL.NEB NEB SCH ×4 (01:38→19:41)
[2018-08-22] MEDS: IPRATROPIUM NEB FS 0.5 MG/2.5 ML AMPUL.NEB IH SCH ×4 (01:38→19:41)
[2018-08-22] MEDS: METOCLOPRAMIDE HCL 10 MG TABLET GT SCH ×4 (05:38→23:45)
[2018-08-22] MEDS: OMEPRAZOLE 20 MG CAPSULE.DR GT SCH (05:38)
[2018-08-22] MEDS: LEVOTHYROXINE SODIUM 88 MCG TABLET GT SCH (05:38)
[2018-08-22 06:36] VITALS: BP 118/60
[2018-08-22 07:28] VITALS: BP 98/48
[2018-08-22] MEDS: ASCORBIC ACID 500 MG TABLET GT SCH (09:10)
[2018-08-22] MEDS: POVIDONE-IODINE OINT 28.4 GM TUBE TP SCH ×2 (09:10→21:00)
[2018-08-22] MEDS: MORPHINE SULFATE SOLN CONCENTRATED 20 MG/ML SL SCH ×2 (09:10→20:40)
[2018-08-22] MEDS: ACIDOPHILUS/BULGARICUS 1 EACH TAB.CHEW GT SCH (09:10)
[2018-08-22] MEDS: COD LIVER OIL/ZINC OXIDE 120 GM TUBE TP SCH ×2 (09:10→21:17)
[2018-08-22] MEDS: PROSTAT (PYXIS) 30 ML UDC GT SCH ×3 (09:10→17:16)
[2018-08-22] MEDS: MULTIVIT W/MINERALS 1 TAB TABLET GT SCH (09:10)
[2018-08-22] MEDS: CARBOXYMETHYLCELLULOSE SODIUM 0.4 ML DROPERETTE EACHEYE SCH (09:10)
[2018-08-22] MEDS: LEVETIRACETAM SOL (5 ML) 100 MG/ML UDC GT SCH ×2 (09:10→20:40)
[2018-08-22] MEDS: ZINC SULFATE 220 MG CAPSULE GT SCH (09:10)
[2018-08-22] MEDS: CHLORHEXIDINE GLUCONATE 15 ML UDC MM SCH ×2 (09:10→17:16)
[2018-08-22] MEDS: NYSTATIN/TRIAMCIN CREAM 15 GM TUBE TP SCH ×2 (09:11→21:18)
[2018-08-22] MEDS: CLOTRIMAZOLE/BETAMETASONE DIPROPIONATE 15 GM TUBE TP SCH ×2 (09:11→21:18)
[2018-08-22] MEDS: HYDROGEN PEROXIDE 480 ML BOTTLE TP SCH ×2 (09:11→21:17)
[2018-08-22] MEDS: THERAHONEY GEL 1.5 OZ TUBE TP SCH ×2 (09:11→21:18)
[2018-08-22 12:30] VITALS: BP 115/58
[2018-08-22 18:53] VITALS: BP 110/63
[2018-08-23] VITALS (7 sets, daily range): BP systolic 108–135; BP diastolic 58–66
[2018-08-23] MEDS: ALBUTEROL FS 2.5 MG/3 ML VIAL.NEB NEB SCH ×4 (02:08→20:00)
[2018-08-23] MEDS: IPRATROPIUM NEB FS 0.5 MG/2.5 ML AMPUL.NEB IH SCH ×4 (02:08→20:00)
[2018-08-23] MEDS: METOCLOPRAMIDE HCL 10 MG TABLET GT SCH ×3 (05:30→17:09)
[2018-08-23] MEDS: OMEPRAZOLE 20 MG CAPSULE.DR GT SCH (05:30)
[2018-08-23] MEDS: LEVOTHYROXINE SODIUM 88 MCG TABLET GT SCH (05:30)
[2018-08-23] MEDS: LEVETIRACETAM SOL (5 ML) 100 MG/ML UDC GT SCH ×2 (08:21→21:19)
[2018-08-23] MEDS: CARBOXYMETHYLCELLULOSE SODIUM 0.4 ML DROPERETTE EACHEYE SCH (08:21)
[2018-08-23] MEDS: PROSTAT (PYXIS) 30 ML UDC GT SCH ×3 (08:21→17:09)
[2018-08-23] MEDS: ACIDOPHILUS/BULGARICUS 1 EACH TAB.CHEW GT SCH (08:21)
[2018-08-23] MEDS: CHLORHEXIDINE GLUCONATE 15 ML UDC MM SCH ×2 (08:22→17:09)
[2018-08-23] MEDS: ASCORBIC ACID 500 MG TABLET GT SCH (08:22)
[2018-08-23] MEDS: ZINC SULFATE 220 MG CAPSULE GT SCH (08:22)
[2018-08-23] MEDS: MULTIVIT W/MINERALS 1 TAB TABLET GT SCH (08:22)
[2018-08-23] MEDS: MORPHINE SULFATE SOLN CONCENTRATED 20 MG/ML SL SCH ×2 (08:22→21:19)
[2018-08-23] MEDS: COD LIVER OIL/ZINC OXIDE 120 GM TUBE TP SCH ×2 (09:00→21:20)
[2018-08-23] MEDS: HYDROGEN PEROXIDE 480 ML BOTTLE TP SCH ×2 (09:00→21:20)
[2018-08-23] MEDS: CLOTRIMAZOLE/BETAMETASONE DIPROPIONATE 15 GM TUBE TP SCH ×2 (09:00→21:20)
[2018-08-23] MEDS: NYSTATIN/TRIAMCIN CREAM 15 GM TUBE TP SCH ×2 (09:00→21:20)
[2018-08-23] MEDS: POVIDONE-IODINE OINT 28.4 GM TUBE TP SCH ×2 (09:00→21:20)
[2018-08-23] MEDS: THERAHONEY GEL 1.5 OZ TUBE TP SCH ×2 (09:00→21:20)
[2018-08-24] VITALS: BP 122/66
[2018-08-24] MEDS: ALBUTEROL FS 2.5 MG/3 ML VIAL.NEB NEB SCH ×4 (01:37→19:24)
[2018-08-24] MEDS: IPRATROPIUM NEB FS 0.5 MG/2.5 ML AMPUL.NEB IH SCH ×4 (01:37→19:24)
[2018-08-24] MEDS: LEVOTHYROXINE SODIUM 88 MCG TABLET GT SCH (05:27)
[2018-08-24] MEDS: OMEPRAZOLE 20 MG CAPSULE.DR GT SCH (05:27)
[2018-08-24] MEDS: METOCLOPRAMIDE HCL 10 MG TABLET GT SCH ×4 (05:27→18:14)
[2018-08-24 06:00] VITALS: BP 120/55
[2018-08-24 07:25] VITALS: BP 105/48
[2018-08-24] MEDS: MORPHINE SULFATE SOLN CONCENTRATED 20 MG/ML SL SCH ×2 (08:35→21:00)
[2018-08-24] MEDS: PROSTAT (PYXIS) 30 ML UDC GT SCH ×3 (08:35→16:55)
[2018-08-24] MEDS: COD LIVER OIL/ZINC OXIDE 120 GM TUBE TP SCH ×2 (08:35→21:00)
[2018-08-24] MEDS: NYSTATIN/TRIAMCIN CREAM 15 GM TUBE TP SCH ×2 (08:35→21:00)
[2018-08-24] MEDS: MULTIVIT W/MINERALS 1 TAB TABLET GT SCH (08:35)
[2018-08-24] MEDS: CHLORHEXIDINE GLUCONATE 15 ML UDC MM SCH ×2 (08:35→16:55)
[2018-08-24] MEDS: ASCORBIC ACID 500 MG TABLET GT SCH (08:35)
[2018-08-24] MEDS: CARBOXYMETHYLCELLULOSE SODIUM 0.4 ML DROPERETTE EACHEYE SCH (08:35)
[2018-08-24] MEDS: LEVETIRACETAM SOL (5 ML) 100 MG/ML UDC GT SCH ×2 (08:35→21:00)
[2018-08-24] MEDS: ZINC SULFATE 220 MG CAPSULE GT SCH (08:35)
[2018-08-24] MEDS: ACIDOPHILUS/BULGARICUS 1 EACH TAB.CHEW GT SCH (08:35)
[2018-08-24] MEDS: HYDROGEN PEROXIDE 480 ML BOTTLE TP SCH ×2 (08:35→21:00)
[2018-08-24] MEDS: THERAHONEY GEL 1.5 OZ TUBE TP SCH ×2 (08:35→21:00)
[2018-08-24] MEDS: CLOTRIMAZOLE/BETAMETASONE DIPROPIONATE 15 GM TUBE TP SCH ×2 (08:35→21:00)
[2018-08-24] MEDS: POVIDONE-IODINE OINT 28.4 GM TUBE TP SCH ×2 (08:35→21:00)
[2018-08-24] MEDS: ONDANSETRON 4 MG TAB.RAPDIS GT PRN (10:51)
[2018-08-24 13:00] VITALS: BP 105/48
--- NOTE | 2018-08-24 15:36 | NUR ---
Referred to Dr. Juni Calderon resident's abdominal and bilateral thigh rashes for further evaluation. Current treatment of Lotrisone cream is not responding well. Dr. Calderon said that he will come by tomorrow to do scraping. Endorsed.
[2018-08-24] MEDS: GLUCERNA 1.2 1,000 ML BOTTLE GT PRN (16:56)
--- NOTE | 2018-08-24 17:00 | NUR ---
Left a message to responsible constitution party Reyna regarding the plan for scraping. Marielena Miller (daughter) also notified of the plan by .
[2018-08-24 18:33] VITALS: BP 110/59
[2018-08-24 19:28] VITALS: BP 106/60
[2018-08-25] VITALS: BP 105/60
[2018-08-25] MEDS: METOCLOPRAMIDE HCL 10 MG TABLET GT SCH ×4 (00:15→17:25)
[2018-08-25] MEDS: ALBUTEROL FS 2.5 MG/3 ML VIAL.NEB NEB SCH ×4 (01:22→19:49)
[2018-08-25] MEDS: IPRATROPIUM NEB FS 0.5 MG/2.5 ML AMPUL.NEB IH SCH ×4 (01:22→19:49)
[2018-08-25] MEDS: LEVOTHYROXINE SODIUM 88 MCG TABLET GT SCH (05:01)
[2018-08-25] MEDS: OMEPRAZOLE 20 MG CAPSULE.DR GT SCH (05:01)
[2018-08-25 06:00] VITALS: BP 119/68
[2018-08-25 07:55] VITALS: BP 103/57
[2018-08-25] MEDS: LEVETIRACETAM SOL (5 ML) 100 MG/ML UDC GT SCH ×2 (08:32→21:10)
[2018-08-25] MEDS: CARBOXYMETHYLCELLULOSE SODIUM 0.4 ML DROPERETTE EACHEYE SCH (08:32)
[2018-08-25] MEDS: ACIDOPHILUS/BULGARICUS 1 EACH TAB.CHEW GT SCH (08:32)
[2018-08-25] MEDS: ASCORBIC ACID 500 MG TABLET GT SCH (08:33)
[2018-08-25] MEDS: PROSTAT (PYXIS) 30 ML UDC GT SCH ×3 (08:33→16:23)
[2018-08-25] MEDS: ZINC SULFATE 220 MG CAPSULE GT SCH (08:33)
[2018-08-25] MEDS: MULTIVIT W/MINERALS 1 TAB TABLET GT SCH (08:33)
[2018-08-25] MEDS: MORPHINE SULFATE SOLN CONCENTRATED 20 MG/ML SL SCH ×2 (08:34→21:04)
[2018-08-25] MEDS: CHLORHEXIDINE GLUCONATE 15 ML UDC MM SCH ×2 (08:34→16:23)
[2018-08-25] MEDS: COD LIVER OIL/ZINC OXIDE 120 GM TUBE TP SCH ×2 (09:00→21:05)
[2018-08-25] MEDS: HYDROGEN PEROXIDE 480 ML BOTTLE TP SCH ×2 (09:00→21:05)
[2018-08-25] MEDS: CLOTRIMAZOLE/BETAMETASONE DIPROPIONATE 15 GM TUBE TP SCH ×2 (09:00→21:05)
[2018-08-25] MEDS: POVIDONE-IODINE OINT 28.4 GM TUBE TP SCH ×2 (09:00→21:05)
[2018-08-25] MEDS: THERAHONEY GEL 1.5 OZ TUBE TP SCH ×2 (09:00→21:05)
[2018-08-25] MEDS: NYSTATIN/TRIAMCIN CREAM 15 GM TUBE TP SCH ×2 (09:00→21:05)
[2018-08-25 12:00] VITALS: BP 102/60
[2018-08-25] MEDS: GLUCERNA 1.2 1,000 ML BOTTLE GT PRN (12:13)
--- NOTE | 2018-08-25 15:51 | NUR ---
RT NOTE: RECEIVED PT ON 28% C/A. NO RESPIRATORY DISTRESS NOTED. TRACH CHECKED SECURE AND PATENT. SXD AND LAVAGED PT Q ROUNDS AND NEEDED. TXS GIVEN ORDERED WITH NO ADVERSE REACTIONS NOTED. EMERGENCY EQUIPMENT @ BEDSIDE. WILL CONTINUE TO MONITOR.
[2018-08-25] MEDS: diphenhydrAMINE HCL ELIX 25 MG/10 ML UDC GT PRN (16:23)
[2018-08-25 18:23] VITALS: BP_SYST 118; BP_SYST 128; BP_DIAS 58
[2018-08-25 19:26] VITALS: BP 106/70
[2018-08-26] MEDS: METOCLOPRAMIDE HCL 10 MG TABLET GT SCH ×4 (00:46→17:38)
[2018-08-26 01:16] VITALS: BP 106/70
[2018-08-26] MEDS: ALBUTEROL FS 2.5 MG/3 ML VIAL.NEB NEB SCH ×4 (01:35→19:33)
[2018-08-26] MEDS: IPRATROPIUM NEB FS 0.5 MG/2.5 ML AMPUL.NEB IH SCH ×4 (01:35→19:33)
[2018-08-26] MEDS: OMEPRAZOLE 20 MG CAPSULE.DR GT SCH (05:16)
[2018-08-26] MEDS: LEVOTHYROXINE SODIUM 88 MCG TABLET GT SCH (05:16)
[2018-08-26] MEDS: GLUCERNA 1.2 1,000 ML BOTTLE GT PRN (06:25)
[2018-08-26 06:33] VITALS: BP 112/73
[2018-08-26 07:53] VITALS: BP 138/62
[2018-08-26] MEDS: ACIDOPHILUS/BULGARICUS 1 EACH TAB.CHEW GT SCH (09:00)
[2018-08-26] MEDS: PROSTAT (PYXIS) 30 ML UDC GT SCH ×3 (09:00→17:38)
[2018-08-26] MEDS: LEVETIRACETAM SOL (5 ML) 100 MG/ML UDC GT SCH ×2 (09:00→20:23)
[2018-08-26] MEDS: CARBOXYMETHYLCELLULOSE SODIUM 0.4 ML DROPERETTE EACHEYE SCH (09:00)
[2018-08-26] MEDS: ASCORBIC ACID 500 MG TABLET GT SCH (09:00)
[2018-08-26] MEDS: CHLORHEXIDINE GLUCONATE 15 ML UDC MM SCH ×2 (09:00→17:38)
[2018-08-26] MEDS: MORPHINE SULFATE SOLN CONCENTRATED 20 MG/ML SL SCH ×2 (09:00→20:23)
[2018-08-26] MEDS: CLOTRIMAZOLE/BETAMETASONE DIPROPIONATE 15 GM TUBE TP SCH ×2 (09:00→20:23)
[2018-08-26] MEDS: HYDROGEN PEROXIDE 480 ML BOTTLE TP SCH ×2 (09:00→20:23)
[2018-08-26] MEDS: MULTIVIT W/MINERALS 1 TAB TABLET GT SCH (09:00)
[2018-08-26] MEDS: NYSTATIN/TRIAMCIN CREAM 15 GM TUBE TP SCH ×2 (09:00→20:24)
[2018-08-26] MEDS: ZINC SULFATE 220 MG CAPSULE GT SCH (09:00)
[2018-08-26] MEDS: COD LIVER OIL/ZINC OXIDE 120 GM TUBE TP SCH ×2 (09:00→20:23)
[2018-08-26] MEDS: THERAHONEY GEL 1.5 OZ TUBE TP SCH ×2 (09:00→20:24)
[2018-08-26] MEDS: POVIDONE-IODINE OINT 28.4 GM TUBE TP SCH ×2 (09:00→20:23)
[2018-08-26 14:36] VITALS: BP 111/65
[2018-08-26 18:08] VITALS: BP 100/36
[2018-08-26 20:22] VITALS: BP 109/62
[2018-08-27] VITALS (8 sets, daily range): BP systolic 103–137; BP diastolic 48–62
[2018-08-27] MEDS: METOCLOPRAMIDE HCL 10 MG TABLET GT SCH ×4 (00:02→18:10)
[2018-08-27] MEDS: IPRATROPIUM NEB FS 0.5 MG/2.5 ML AMPUL.NEB IH SCH ×4 (01:58→19:40)
[2018-08-27] MEDS: ALBUTEROL FS 2.5 MG/3 ML VIAL.NEB NEB SCH ×4 (01:58→19:40)
[2018-08-27] MEDS: LEVOTHYROXINE SODIUM 88 MCG TABLET GT SCH (05:10)
[2018-08-27] MEDS: OMEPRAZOLE 20 MG CAPSULE.DR GT SCH (05:10)
[2018-08-27] MEDS: GLUCERNA 1.2 1,000 ML BOTTLE GT PRN (05:14)
[2018-08-27] MEDS: CARBOXYMETHYLCELLULOSE SODIUM 0.4 ML DROPERETTE EACHEYE SCH (08:22)
[2018-08-27] MEDS: ACIDOPHILUS/BULGARICUS 1 EACH TAB.CHEW GT SCH (08:23)
[2018-08-27] MEDS: LEVETIRACETAM SOL (5 ML) 100 MG/ML UDC GT SCH ×2 (08:23→20:12)
[2018-08-27] MEDS: CHLORHEXIDINE GLUCONATE 15 ML UDC MM SCH ×2 (08:24→17:00)
[2018-08-27] MEDS: MULTIVIT W/MINERALS 1 TAB TABLET GT SCH (08:24)
[2018-08-27] MEDS: MORPHINE SULFATE SOLN CONCENTRATED 20 MG/ML SL SCH ×2 (08:24→20:12)
[2018-08-27] MEDS: ASCORBIC ACID 500 MG TABLET GT SCH (08:24)
[2018-08-27] MEDS: ZINC SULFATE 220 MG CAPSULE GT SCH (08:24)
[2018-08-27] MEDS: PROSTAT (PYXIS) 30 ML UDC GT SCH ×3 (08:24→17:00)
[2018-08-27] MEDS: HYDROGEN PEROXIDE 480 ML BOTTLE TP SCH ×2 (09:00→20:13)
[2018-08-27] MEDS: POVIDONE-IODINE OINT 28.4 GM TUBE TP SCH ×2 (09:00→20:13)
[2018-08-27] MEDS: COD LIVER OIL/ZINC OXIDE 120 GM TUBE TP SCH ×2 (09:00→20:13)
[2018-08-27] MEDS: CLOTRIMAZOLE/BETAMETASONE DIPROPIONATE 15 GM TUBE TP SCH ×2 (09:00→20:13)
[2018-08-27] MEDS: THERAHONEY GEL 1.5 OZ TUBE TP SCH ×2 (09:00→20:13)
[2018-08-27] MEDS: NYSTATIN/TRIAMCIN CREAM 15 GM TUBE TP SCH ×2 (09:00→20:13)
[2018-08-28] MEDS: ALBUTEROL FS 2.5 MG/3 ML VIAL.NEB NEB SCH ×4 (00:47→19:34)
[2018-08-28] MEDS: IPRATROPIUM NEB FS 0.5 MG/2.5 ML AMPUL.NEB IH SCH ×4 (00:47→19:34)
[2018-08-28 01:15] VITALS: BP 103/63
[2018-08-28] MEDS: METOCLOPRAMIDE HCL 10 MG TABLET GT SCH ×5 (01:24→23:52)
[2018-08-28] MEDS: LEVOTHYROXINE SODIUM 88 MCG TABLET GT SCH (05:03)
[2018-08-28] MEDS: OMEPRAZOLE 20 MG CAPSULE.DR GT SCH (05:04)
[2018-08-28] MEDS: GLUCERNA 1.2 1,000 ML BOTTLE GT PRN (05:18)
[2018-08-28 06:05] VITALS: BP 125/60
[2018-08-28 07:41] VITALS: BP 105/35
[2018-08-28] MEDS: MULTIVIT W/MINERALS 1 TAB TABLET GT SCH (08:52)
[2018-08-28] MEDS: PROSTAT (PYXIS) 30 ML UDC GT SCH ×3 (08:52→17:00)
[2018-08-28] MEDS: CARBOXYMETHYLCELLULOSE SODIUM 0.4 ML DROPERETTE EACHEYE SCH (08:52)
[2018-08-28] MEDS: ACIDOPHILUS/BULGARICUS 1 EACH TAB.CHEW GT SCH (08:52)
[2018-08-28] MEDS: ZINC SULFATE 220 MG CAPSULE GT SCH (08:52)
[2018-08-28] MEDS: CHLORHEXIDINE GLUCONATE 15 ML UDC MM SCH ×2 (08:52→17:00)
[2018-08-28] MEDS: ASCORBIC ACID 500 MG TABLET GT SCH (08:52)
[2018-08-28] MEDS: MORPHINE SULFATE SOLN CONCENTRATED 20 MG/ML SL SCH ×2 (08:52→20:01)
[2018-08-28] MEDS: LEVETIRACETAM SOL (5 ML) 100 MG/ML UDC GT SCH ×2 (08:52→20:01)
--- NOTE | 2018-08-28 09:12 | NUR ---
Seen and examined by Dr. Monet, NNO given. Awaiting for Dr. Juni Calderon to do skin scraping due skin rashes.
[2018-08-28] MEDS: COD LIVER OIL/ZINC OXIDE 120 GM TUBE TP SCH ×2 (10:00→20:06)
[2018-08-28] MEDS: HYDROGEN PEROXIDE 480 ML BOTTLE TP SCH ×2 (10:00→20:06)
[2018-08-28] MEDS: NYSTATIN/TRIAMCIN CREAM 15 GM TUBE TP SCH ×2 (10:00→20:06)
[2018-08-28] MEDS: CLOTRIMAZOLE/BETAMETASONE DIPROPIONATE 15 GM TUBE TP SCH ×2 (10:00→20:06)
[2018-08-28] MEDS: POVIDONE-IODINE OINT 28.4 GM TUBE TP SCH ×2 (10:00→20:06)
[2018-08-28] MEDS: THERAHONEY GEL 1.5 OZ TUBE TP SCH ×2 (10:00→20:06)
[2018-08-28 12:00] VITALS: BP 107/67
--- NOTE | 2018-08-28 19:00 | NUR ---
Seen and examined by Dr. Ross, assessed skin rashes in bilateral thigh and entire abdomen. Current treatment is Lotrisone cream. NNO given, he said he will remind Dr. Juni Calderon tomorrow to do skin scraping.
[2018-08-28 19:01] VITALS: BP 115/63
[2018-08-28 19:43] VITALS: BP 107/61
[2018-08-29 00:22] VITALS: BP 106/47
[2018-08-29] MEDS: ALBUTEROL FS 2.5 MG/3 ML VIAL.NEB NEB SCH ×4 (00:54→20:19)
[2018-08-29] MEDS: IPRATROPIUM NEB FS 0.5 MG/2.5 ML AMPUL.NEB IH SCH ×4 (00:54→20:19)
[2018-08-29] MEDS: METOCLOPRAMIDE HCL 10 MG TABLET GT SCH ×3 (05:13→17:59)
[2018-08-29] MEDS: OMEPRAZOLE 20 MG CAPSULE.DR GT SCH (05:13)
[2018-08-29] MEDS: LEVOTHYROXINE SODIUM 88 MCG TABLET GT SCH (05:13)
[2018-08-29] MEDS: GLUCERNA 1.2 1,000 ML BOTTLE GT PRN (05:20)
[2018-08-29 06:05] VITALS: BP 111/54
[2018-08-29 08:00] VITALS: BP 116/51
[2018-08-29] MEDS: MULTIVIT W/MINERALS 1 TAB TABLET GT SCH (08:34)
[2018-08-29] MEDS: CHLORHEXIDINE GLUCONATE 15 ML UDC MM SCH ×2 (08:34→17:59)
[2018-08-29] MEDS: ACIDOPHILUS/BULGARICUS 1 EACH TAB.CHEW GT SCH (08:34)
[2018-08-29] MEDS: ZINC SULFATE 220 MG CAPSULE GT SCH (08:34)
[2018-08-29] MEDS: LEVETIRACETAM SOL (5 ML) 100 MG/ML UDC GT SCH ×2 (08:34→21:06)
[2018-08-29] MEDS: ASCORBIC ACID 500 MG TABLET GT SCH (08:34)
[2018-08-29] MEDS: CARBOXYMETHYLCELLULOSE SODIUM 0.4 ML DROPERETTE EACHEYE SCH (08:34)
[2018-08-29] MEDS: PROSTAT (PYXIS) 30 ML UDC GT SCH ×3 (08:34→17:59)
[2018-08-29] MEDS: MORPHINE SULFATE SOLN CONCENTRATED 20 MG/ML SL SCH ×2 (08:35→21:06)
[2018-08-29] MEDS: POVIDONE-IODINE OINT 28.4 GM TUBE TP SCH ×2 (09:00→21:39)
[2018-08-29] MEDS: CLOTRIMAZOLE/BETAMETASONE DIPROPIONATE 15 GM TUBE TP SCH ×2 (09:10→21:39)
[2018-08-29] MEDS: THERAHONEY GEL 1.5 OZ TUBE TP SCH ×2 (09:10→21:39)
[2018-08-29] MEDS: COD LIVER OIL/ZINC OXIDE 120 GM TUBE TP SCH ×2 (09:10→21:39)
[2018-08-29] MEDS: NYSTATIN/TRIAMCIN CREAM 15 GM TUBE TP SCH ×2 (09:10→21:39)
[2018-08-29] MEDS: HYDROGEN PEROXIDE 480 ML BOTTLE TP SCH ×2 (09:10→21:39)
[2018-08-29 12:29] VITALS: BP 119/57
[2018-08-29 18:18] VITALS: BP 108/46
[2018-08-29 20:12] VITALS: BP 122/66
--- NOTE | 2018-08-29 20:34 | NUR ---
PT RCVD TRACH SHILEY 6 ON COOL AEROSOL 28% 5L. Q6 BREATHING TX GIVEN AND NO ADVERSE REACTION NOTED. SUCTIONED MODERATE YELLOW/WHITE THICK SECRETIONS. NO RESPIRATORY DISTRESS NOTED AT THIS TIME. AMBU BAG AT BEDSIDE. WILL CONTINUE TO MONITOR.
[2018-08-30] MEDS: METOCLOPRAMIDE HCL 10 MG TABLET GT SCH ×5 (00:42→23:53)
[2018-08-30 00:43] VITALS: BP 127/65
[2018-08-30] MEDS: ALBUTEROL FS 2.5 MG/3 ML VIAL.NEB NEB SCH ×4 (01:12→19:08)
[2018-08-30] MEDS: IPRATROPIUM NEB FS 0.5 MG/2.5 ML AMPUL.NEB IH SCH ×4 (01:12→19:08)
[2018-08-30] MEDS: LEVOTHYROXINE SODIUM 88 MCG TABLET GT SCH (05:14)
[2018-08-30] MEDS: OMEPRAZOLE 20 MG CAPSULE.DR GT SCH (05:14)
[2018-08-30 06:16] VITALS: BP 134/80
[2018-08-30] MEDS: GLUCERNA 1.2 1,000 ML BOTTLE GT PRN (06:17)
[2018-08-30 07:34] VITALS: BP 112/43
[2018-08-30] MEDS: LEVETIRACETAM SOL (5 ML) 100 MG/ML UDC GT SCH ×2 (09:00→21:05)
[2018-08-30] MEDS: POVIDONE-IODINE OINT 28.4 GM TUBE TP SCH ×2 (09:00→21:06)
[2018-08-30] MEDS: ACIDOPHILUS/BULGARICUS 1 EACH TAB.CHEW GT SCH (09:00)
[2018-08-30] MEDS: CLOTRIMAZOLE/BETAMETASONE DIPROPIONATE 15 GM TUBE TP SCH ×2 (09:00→21:07)
[2018-08-30] MEDS: CARBOXYMETHYLCELLULOSE SODIUM 0.4 ML DROPERETTE EACHEYE SCH (09:00)
[2018-08-30] MEDS: NYSTATIN/TRIAMCIN CREAM 15 GM TUBE TP SCH ×2 (09:00→21:07)
[2018-08-30] MEDS: THERAHONEY GEL 1.5 OZ TUBE TP SCH ×2 (09:00→21:07)
[2018-08-30] MEDS: HYDROGEN PEROXIDE 480 ML BOTTLE TP SCH ×2 (09:00→21:06)
[2018-08-30] MEDS: ASCORBIC ACID 500 MG TABLET GT SCH (09:01)
[2018-08-30] MEDS: ZINC SULFATE 220 MG CAPSULE GT SCH (09:01)
[2018-08-30] MEDS: MULTIVIT W/MINERALS 1 TAB TABLET GT SCH (09:01)
[2018-08-30] MEDS: CHLORHEXIDINE GLUCONATE 15 ML UDC MM SCH ×2 (09:02→16:42)
[2018-08-30] MEDS: COD LIVER OIL/ZINC OXIDE 120 GM TUBE TP SCH ×2 (09:03→21:06)
[2018-08-30] MEDS: PROSTAT (PYXIS) 30 ML UDC GT SCH ×3 (09:11→16:39)
[2018-08-30] MEDS: MORPHINE SULFATE SOLN CONCENTRATED 20 MG/ML SL SCH ×2 (14:02→21:06)
[2018-08-30 20:17] VITALS: BP 112/71
[2018-08-31] MEDS: ALBUTEROL FS 2.5 MG/3 ML VIAL.NEB NEB SCH ×4 (00:39→19:26)
[2018-08-31] MEDS: IPRATROPIUM NEB FS 0.5 MG/2.5 ML AMPUL.NEB IH SCH ×4 (00:39→19:26)
[2018-08-31] MEDS: LEVOTHYROXINE SODIUM 88 MCG TABLET GT SCH (05:27)
[2018-08-31] MEDS: METOCLOPRAMIDE HCL 10 MG TABLET GT SCH ×3 (05:27→17:24)
[2018-08-31] MEDS: OMEPRAZOLE 20 MG CAPSULE.DR GT SCH (05:27)
[2018-08-31] MEDS: GLUCERNA 1.2 1,000 ML BOTTLE GT PRN (06:34)
--- NOTE | 2018-08-31 07:00 | NUR ---
janitorial maintenance worker closing notes pt resting comfortably in bed without any acute distress noted. Stable park the night and all due meds given. kept her comfortable at all times. Endorse to am nurse for continuity of care.
[2018-08-31 07:55] VITALS: BP 106/59
[2018-08-31] MEDS: MORPHINE SULFATE SOLN CONCENTRATED 20 MG/ML SL SCH ×2 (08:13→21:12)
[2018-08-31] MEDS: MULTIVIT W/MINERALS 1 TAB TABLET GT SCH (08:18)
[2018-08-31] MEDS: ZINC SULFATE 220 MG CAPSULE GT SCH (08:18)
[2018-08-31] MEDS: ACIDOPHILUS/BULGARICUS 1 EACH TAB.CHEW GT SCH (08:18)
[2018-08-31] MEDS: LEVETIRACETAM SOL (5 ML) 100 MG/ML UDC GT SCH ×2 (08:18→21:11)
[2018-08-31] MEDS: PROSTAT (PYXIS) 30 ML UDC GT SCH ×3 (08:18→17:24)
[2018-08-31] MEDS: ASCORBIC ACID 500 MG TABLET GT SCH (08:18)
[2018-08-31] MEDS: CARBOXYMETHYLCELLULOSE SODIUM 0.4 ML DROPERETTE EACHEYE SCH (08:18)
[2018-08-31] MEDS: CHLORHEXIDINE GLUCONATE 15 ML UDC MM SCH ×2 (08:18→17:24)
[2018-08-31] MEDS: THERAHONEY GEL 1.5 OZ TUBE TP SCH (09:00)
[2018-08-31] MEDS: NYSTATIN/TRIAMCIN CREAM 15 GM TUBE TP SCH (09:00)
[2018-08-31] MEDS: POVIDONE-IODINE OINT 28.4 GM TUBE TP SCH ×2 (09:00→21:00)
[2018-08-31] MEDS: CLOTRIMAZOLE/BETAMETASONE DIPROPIONATE 15 GM TUBE TP SCH (09:00)
[2018-08-31] MEDS: COD LIVER OIL/ZINC OXIDE 120 GM TUBE TP SCH ×2 (09:00→21:00)
[2018-08-31] MEDS: HYDROGEN PEROXIDE 480 ML BOTTLE TP SCH ×2 (09:00→21:00)
--- NOTE | 2018-08-31 18:08 | NUR ---
Reminded Dr Calderon to do skin scraping on pt's rashes. He said to remind him tomorrow.
[2018-08-31 19:43] VITALS: BP 131/61
[2018-09-01] MEDS: ALBUTEROL FS 2.5 MG/3 ML VIAL.NEB NEB SCH ×4 (01:09→19:44)
[2018-09-01] MEDS: IPRATROPIUM NEB FS 0.5 MG/2.5 ML AMPUL.NEB IH SCH ×4 (01:09→19:44)
[2018-09-01] MEDS: ACETAMINOPHEN 650 MG/20 ML UDC- SA PATIENTS-PAIN ONLY GT PRN (05:44)
[2018-09-01] MEDS: LEVOTHYROXINE SODIUM 88 MCG TABLET GT SCH (05:45)
[2018-09-01] MEDS: OMEPRAZOLE 20 MG CAPSULE.DR GT SCH (05:45)
[2018-09-01] MEDS: METOCLOPRAMIDE HCL 10 MG TABLET GT SCH ×4 (05:45→17:35)
[2018-09-01] MEDS: hydrALAZINE HCL 10 MG TABLET GT PRN (05:47)
[2018-09-01 07:54] VITALS: BP 95/55
[2018-09-01] MEDS: ASCORBIC ACID 500 MG TABLET GT SCH (08:23)
[2018-09-01] MEDS: MORPHINE SULFATE SOLN CONCENTRATED 20 MG/ML SL SCH ×2 (08:23→20:54)
[2018-09-01] MEDS: CARBOXYMETHYLCELLULOSE SODIUM 0.4 ML DROPERETTE EACHEYE SCH (08:23)
[2018-09-01] MEDS: MULTIVIT W/MINERALS 1 TAB TABLET GT SCH (08:23)
[2018-09-01] MEDS: PROSTAT (PYXIS) 30 ML UDC GT SCH ×3 (08:23→17:35)
[2018-09-01] MEDS: ZINC SULFATE 220 MG CAPSULE GT SCH (08:23)
[2018-09-01] MEDS: CHLORHEXIDINE GLUCONATE 15 ML UDC MM SCH ×2 (08:23→17:35)
[2018-09-01] MEDS: ACIDOPHILUS/BULGARICUS 1 EACH TAB.CHEW GT SCH (08:23)
[2018-09-01] MEDS: LEVETIRACETAM SOL (5 ML) 100 MG/ML UDC GT SCH ×2 (08:23→20:54)
[2018-09-01] MEDS: POVIDONE-IODINE OINT 28.4 GM TUBE TP SCH ×2 (09:07→20:55)
[2018-09-01] MEDS: HYDROGEN PEROXIDE 480 ML BOTTLE TP SCH ×2 (09:07→20:55)
[2018-09-01] MEDS: COD LIVER OIL/ZINC OXIDE 120 GM TUBE TP SCH ×2 (09:07→20:55)
[2018-09-01] MEDS: THERAHONEY GEL 1.5 OZ TUBE TP SCH ×2 (09:29→20:55)
[2018-09-01 20:02] VITALS: BP 115/50
[2018-09-02] MEDS: METOCLOPRAMIDE HCL 10 MG TABLET GT SCH ×4 (00:07→18:15)
[2018-09-02] MEDS: GLUCERNA 1.2 1,000 ML BOTTLE GT PRN (00:11)
[2018-09-02] MEDS: ALBUTEROL FS 2.5 MG/3 ML VIAL.NEB NEB SCH ×4 (01:12→19:48)
[2018-09-02] MEDS: IPRATROPIUM NEB FS 0.5 MG/2.5 ML AMPUL.NEB IH SCH ×4 (01:12→19:47)
[2018-09-02] MEDS: LEVOTHYROXINE SODIUM 88 MCG TABLET GT SCH (06:02)
[2018-09-02] MEDS: OMEPRAZOLE 20 MG CAPSULE.DR GT SCH (06:02)
[2018-09-02 07:40] VITALS: BP 103/60
[2018-09-02] MEDS: MORPHINE SULFATE SOLN CONCENTRATED 20 MG/ML SL SCH ×2 (08:42→20:21)
[2018-09-02] MEDS: CARBOXYMETHYLCELLULOSE SODIUM 0.4 ML DROPERETTE EACHEYE SCH (08:42)
[2018-09-02] MEDS: PROSTAT (PYXIS) 30 ML UDC GT SCH ×3 (08:45→17:00)
[2018-09-02] MEDS: ACIDOPHILUS/BULGARICUS 1 EACH TAB.CHEW GT SCH (08:45)
[2018-09-02] MEDS: MULTIVIT W/MINERALS 1 TAB TABLET GT SCH (08:45)
[2018-09-02] MEDS: CHLORHEXIDINE GLUCONATE 15 ML UDC MM SCH ×2 (08:45→17:00)
[2018-09-02] MEDS: ZINC SULFATE 220 MG CAPSULE GT SCH (08:45)
[2018-09-02] MEDS: ASCORBIC ACID 500 MG TABLET GT SCH (08:45)
[2018-09-02] MEDS: LEVETIRACETAM SOL (5 ML) 100 MG/ML UDC GT SCH ×2 (08:45→20:21)
--- NOTE | 2018-09-02 09:00 | NUR ---
Seen and examined by Dr. Ross, no new order given. Informed him that Juni Calderon still didn't come to do skin scraping on her rashes he said he will talk to him.
[2018-09-02] MEDS: POVIDONE-IODINE OINT 28.4 GM TUBE TP SCH (09:20)
[2018-09-02] MEDS: THERAHONEY GEL 1.5 OZ TUBE TP SCH ×2 (09:20→20:21)
[2018-09-02] MEDS: HYDROGEN PEROXIDE 480 ML BOTTLE TP SCH ×2 (09:20→20:21)
[2018-09-02] MEDS: COD LIVER OIL/ZINC OXIDE 120 GM TUBE TP SCH ×2 (09:20→20:21)
[2018-09-02 20:10] VITALS: BP 107/63
[2018-09-03] MEDS: METOCLOPRAMIDE HCL 10 MG TABLET GT SCH ×4 (00:22→18:28)
[2018-09-03] MEDS: IPRATROPIUM NEB FS 0.5 MG/2.5 ML AMPUL.NEB IH SCH ×4 (01:31→19:31)
[2018-09-03] MEDS: ALBUTEROL FS 2.5 MG/3 ML VIAL.NEB NEB SCH ×4 (01:31→19:31)
[2018-09-03] MEDS: OMEPRAZOLE 20 MG CAPSULE.DR GT SCH (05:14)
[2018-09-03] MEDS: LEVOTHYROXINE SODIUM 88 MCG TABLET GT SCH (05:14)
[2018-09-03 07:38] VITALS: BP 114/61
[2018-09-03] MEDS: ASCORBIC ACID 500 MG TABLET GT SCH (08:38)
[2018-09-03] MEDS: CARBOXYMETHYLCELLULOSE SODIUM 0.4 ML DROPERETTE EACHEYE SCH (08:38)
[2018-09-03] MEDS: ZINC SULFATE 220 MG CAPSULE GT SCH (08:38)
[2018-09-03] MEDS: LEVETIRACETAM SOL (5 ML) 100 MG/ML UDC GT SCH ×2 (08:38→20:16)
[2018-09-03] MEDS: MULTIVIT W/MINERALS 1 TAB TABLET GT SCH (08:38)
[2018-09-03] MEDS: PROSTAT (PYXIS) 30 ML UDC GT SCH ×3 (08:38→17:00)
[2018-09-03] MEDS: ACIDOPHILUS/BULGARICUS 1 EACH TAB.CHEW GT SCH (08:38)
[2018-09-03] MEDS: MORPHINE SULFATE SOLN CONCENTRATED 20 MG/ML SL SCH ×2 (08:39→20:17)
[2018-09-03] MEDS: CHLORHEXIDINE GLUCONATE 15 ML UDC MM SCH ×2 (08:39→17:00)
[2018-09-03] MEDS: COD LIVER OIL/ZINC OXIDE 120 GM TUBE TP SCH ×2 (09:58→20:17)
[2018-09-03] MEDS: HYDROGEN PEROXIDE 480 ML BOTTLE TP SCH ×2 (09:58→20:17)
[2018-09-03] MEDS: THERAHONEY GEL 1.5 OZ TUBE TP SCH ×2 (09:59→20:17)
[2018-09-03 20:21] VITALS: BP 110/57
[2018-09-04] MEDS: METOCLOPRAMIDE HCL 10 MG TABLET GT SCH ×5 (00:11→23:38)
[2018-09-04] MEDS: ALBUTEROL FS 2.5 MG/3 ML VIAL.NEB NEB SCH ×4 (01:45→19:30)
[2018-09-04] MEDS: IPRATROPIUM NEB FS 0.5 MG/2.5 ML AMPUL.NEB IH SCH ×4 (01:45→19:30)
[2018-09-04] MEDS: GLUCERNA 1.2 1,000 ML BOTTLE GT PRN (03:41)
[2018-09-04] MEDS: LEVOTHYROXINE SODIUM 88 MCG TABLET GT SCH (05:05)
[2018-09-04] MEDS: OMEPRAZOLE 20 MG CAPSULE.DR GT SCH (05:06)
[2018-09-04 08:41] VITALS: BP 127/64
[2018-09-04] MEDS: MORPHINE SULFATE SOLN CONCENTRATED 20 MG/ML SL SCH ×2 (09:00→20:35)
[2018-09-04] MEDS: HYDROGEN PEROXIDE 480 ML BOTTLE TP SCH ×2 (09:00→20:35)
[2018-09-04] MEDS: CHLORHEXIDINE GLUCONATE 15 ML UDC MM SCH ×2 (09:00→17:00)
--- NOTE | 2018-09-04 09:00 | NUR ---
Seen and examined by Dr. Monet, no new order given.
[2018-09-04] MEDS: PROSTAT (PYXIS) 30 ML UDC GT SCH ×3 (09:56→17:00)
[2018-09-04] MEDS: ACIDOPHILUS/BULGARICUS 1 EACH TAB.CHEW GT SCH (09:56)
[2018-09-04] MEDS: COD LIVER OIL/ZINC OXIDE 120 GM TUBE TP SCH ×2 (09:56→20:35)
[2018-09-04] MEDS: THERAHONEY GEL 1.5 OZ TUBE TP SCH ×2 (09:56→20:35)
[2018-09-04] MEDS: ASCORBIC ACID 500 MG TABLET GT SCH (09:56)
[2018-09-04] MEDS: LEVETIRACETAM SOL (5 ML) 100 MG/ML UDC GT SCH ×2 (09:56→20:34)
[2018-09-04] MEDS: MULTIVIT W/MINERALS 1 TAB TABLET GT SCH (09:56)
[2018-09-04] MEDS: CARBOXYMETHYLCELLULOSE SODIUM 0.4 ML DROPERETTE EACHEYE SCH (09:56)
[2018-09-04] MEDS: ZINC SULFATE 220 MG CAPSULE GT SCH (09:56)
[2018-09-05] MEDS: ALBUTEROL FS 2.5 MG/3 ML VIAL.NEB NEB SCH ×4 (01:12→19:44)
[2018-09-05] MEDS: IPRATROPIUM NEB FS 0.5 MG/2.5 ML AMPUL.NEB IH SCH ×4 (01:12→19:44)
[2018-09-05] MEDS: METOCLOPRAMIDE HCL 10 MG TABLET GT SCH ×3 (05:54→17:26)
[2018-09-05] MEDS: OMEPRAZOLE 20 MG CAPSULE.DR GT SCH (05:54)
[2018-09-05] MEDS: LEVOTHYROXINE SODIUM 88 MCG TABLET GT SCH (05:54)
[2018-09-05] MEDS: GLUCERNA 1.2 1,000 ML BOTTLE GT PRN (07:13)
[2018-09-05 07:29] VITALS: BP 118/68
[2018-09-05] MEDS: MULTIVIT W/MINERALS 1 TAB TABLET GT SCH (09:00)
[2018-09-05] MEDS: LEVETIRACETAM SOL (5 ML) 100 MG/ML UDC GT SCH ×2 (09:00→21:39)
[2018-09-05] MEDS: MORPHINE SULFATE SOLN CONCENTRATED 20 MG/ML SL SCH ×2 (09:00→21:39)
[2018-09-05] MEDS: ZINC SULFATE 220 MG CAPSULE GT SCH (09:00)
[2018-09-05] MEDS: PROSTAT (PYXIS) 30 ML UDC GT SCH ×3 (09:00→17:26)
[2018-09-05] MEDS: CHLORHEXIDINE GLUCONATE 15 ML UDC MM SCH ×2 (09:00→17:25)
[2018-09-05] MEDS: CARBOXYMETHYLCELLULOSE SODIUM 0.4 ML DROPERETTE EACHEYE SCH (09:00)
[2018-09-05] MEDS: ASCORBIC ACID 500 MG TABLET GT SCH (09:00)
[2018-09-05] MEDS: ACIDOPHILUS/BULGARICUS 1 EACH TAB.CHEW GT SCH (09:00)
[2018-09-05] MEDS: THERAHONEY GEL 1.5 OZ TUBE TP SCH ×2 (10:00→21:39)
[2018-09-05] MEDS: COD LIVER OIL/ZINC OXIDE 120 GM TUBE TP SCH ×2 (10:00→21:39)
[2018-09-05] MEDS: HYDROGEN PEROXIDE 480 ML BOTTLE TP SCH ×2 (10:00→21:39)
[2018-09-05 20:31] VITALS: BP 124/76
[2018-09-06] MEDS: METOCLOPRAMIDE HCL 10 MG TABLET GT SCH ×5 (00:09→23:44)
[2018-09-06] MEDS: IPRATROPIUM NEB FS 0.5 MG/2.5 ML AMPUL.NEB IH SCH ×4 (01:34→19:50)
[2018-09-06] MEDS: ALBUTEROL FS 2.5 MG/3 ML VIAL.NEB NEB SCH ×4 (01:35→19:50)
[2018-09-06] MEDS: OMEPRAZOLE 20 MG CAPSULE.DR GT SCH (05:48)
[2018-09-06] MEDS: LEVOTHYROXINE SODIUM 88 MCG TABLET GT SCH (05:49)
[2018-09-06] MEDS: GLUCERNA 1.2 1,000 ML BOTTLE GT PRN (06:02)
[2018-09-06 07:30] VITALS: BP 96/42
[2018-09-06] MEDS: CARBOXYMETHYLCELLULOSE SODIUM 0.4 ML DROPERETTE EACHEYE SCH (09:56)
[2018-09-06] MEDS: ZINC SULFATE 220 MG CAPSULE GT SCH (09:56)
[2018-09-06] MEDS: CHLORHEXIDINE GLUCONATE 15 ML UDC MM SCH ×2 (09:56→17:38)
[2018-09-06] MEDS: ASCORBIC ACID 500 MG TABLET GT SCH (09:56)
[2018-09-06] MEDS: MULTIVIT W/MINERALS 1 TAB TABLET GT SCH (09:56)
[2018-09-06] MEDS: PROSTAT (PYXIS) 30 ML UDC GT SCH ×3 (09:56→17:38)
[2018-09-06] MEDS: MORPHINE SULFATE SOLN CONCENTRATED 20 MG/ML SL SCH ×2 (09:56→21:02)
[2018-09-06] MEDS: ACIDOPHILUS/BULGARICUS 1 EACH TAB.CHEW GT SCH (09:56)
[2018-09-06] MEDS: LEVETIRACETAM SOL (5 ML) 100 MG/ML UDC GT SCH ×2 (09:56→21:02)
[2018-09-06] MEDS: HYDROGEN PEROXIDE 480 ML BOTTLE TP SCH ×2 (10:30→21:02)
[2018-09-06] MEDS: COD LIVER OIL/ZINC OXIDE 120 GM TUBE TP SCH ×2 (10:30→21:02)
[2018-09-06] MEDS: THERAHONEY GEL 1.5 OZ TUBE TP SCH ×2 (10:30→21:02)
[2018-09-06 17:00] VITALS: BP 129/62
--- NOTE | 2018-09-06 17:27 | NUR ---
Reminded Dr Calderon to do skin scraping/biopsy on pt's rashes. Dr Ross said to have Dr Darryl Winters see pt for rashes. Informed Dr Winters.
[2018-09-06 19:59] VITALS: BP 103/59
[2018-09-06 21:00] VITALS: BP 113/72
[2018-09-07] VITALS (8 sets, daily range): BP systolic 100–120; BP diastolic 41–68
[2018-09-07] MEDS: IPRATROPIUM NEB FS 0.5 MG/2.5 ML AMPUL.NEB IH SCH ×4 (01:39→19:43)
[2018-09-07] MEDS: ALBUTEROL FS 2.5 MG/3 ML VIAL.NEB NEB SCH ×4 (01:39→19:43)
[2018-09-07] MEDS: OMEPRAZOLE 20 MG CAPSULE.DR GT SCH (05:28)
[2018-09-07] MEDS: METOCLOPRAMIDE HCL 10 MG TABLET GT SCH ×4 (05:28→23:40)
[2018-09-07] MEDS: LEVOTHYROXINE SODIUM 88 MCG TABLET GT SCH (05:28)
[2018-09-07] MEDS: GLUCERNA 1.2 1,000 ML BOTTLE GT PRN (06:00)
[2018-09-07] MEDS: MORPHINE SULFATE SOLN CONCENTRATED 20 MG/ML SL SCH ×2 (09:17→21:35)
[2018-09-07] MEDS: CHLORHEXIDINE GLUCONATE 15 ML UDC MM SCH ×3 (09:17→21:34)
[2018-09-07] MEDS: MULTIVIT W/MINERALS 1 TAB TABLET GT SCH (09:17)
[2018-09-07] MEDS: ACIDOPHILUS/BULGARICUS 1 EACH TAB.CHEW GT SCH (09:17)
[2018-09-07] MEDS: LEVETIRACETAM SOL (5 ML) 100 MG/ML UDC GT SCH ×2 (09:17→21:34)
[2018-09-07] MEDS: ASCORBIC ACID 500 MG TABLET GT SCH (09:17)
[2018-09-07] MEDS: PROSTAT (PYXIS) 30 ML UDC GT SCH ×3 (09:17→17:09)
[2018-09-07] MEDS: ZINC SULFATE 220 MG CAPSULE GT SCH (09:17)
[2018-09-07] MEDS: CARBOXYMETHYLCELLULOSE SODIUM 0.4 ML DROPERETTE EACHEYE SCH (09:17)
[2018-09-07] MEDS: COD LIVER OIL/ZINC OXIDE 120 GM TUBE TP SCH ×2 (09:50→21:35)
[2018-09-07] MEDS: HYDROGEN PEROXIDE 480 ML BOTTLE TP SCH ×2 (09:50→21:35)
[2018-09-07] MEDS: THERAHONEY GEL 1.5 OZ TUBE TP SCH ×2 (09:50→21:35)
--- NOTE | 2018-09-07 16:30 | NUR ---
DESEAN Soler assessed patient's skin, she said that scraping is not indicated. She continue local treatment of Lotrisone cream to abdominal and bilateral thigh rashes.
[2018-09-07] MEDS ORDERED: CLOTRIMAZOLE/BETAMETASONE DIPROPIONATE 15 GM TUBE TP SCH (19:00)
[2018-09-07] MEDS: CLOTRIMAZOLE/BETAMETASONE DIPROPIONATE 15 GM TUBE TP SCH (21:35)
[2018-09-08] VITALS (8 sets, daily range): BP systolic 107–127; BP diastolic 48–75
[2018-09-08] MEDS: ALBUTEROL FS 2.5 MG/3 ML VIAL.NEB NEB SCH ×4 (01:39→19:14)
[2018-09-08] MEDS: IPRATROPIUM NEB FS 0.5 MG/2.5 ML AMPUL.NEB IH SCH ×4 (01:39→19:14)
[2018-09-08] MEDS: LEVOTHYROXINE SODIUM 88 MCG TABLET GT SCH (05:48)
[2018-09-08] MEDS: OMEPRAZOLE 20 MG CAPSULE.DR GT SCH (05:48)
[2018-09-08] MEDS: METOCLOPRAMIDE HCL 10 MG TABLET GT SCH ×3 (05:48→17:43)
[2018-09-08] MEDS: GLUCERNA 1.2 1,000 ML BOTTLE GT PRN (06:02)
[2018-09-08] MEDS: ZINC SULFATE 220 MG CAPSULE GT SCH (09:55)
[2018-09-08] MEDS: MULTIVIT W/MINERALS 1 TAB TABLET GT SCH (09:55)
[2018-09-08] MEDS: ACIDOPHILUS/BULGARICUS 1 EACH TAB.CHEW GT SCH (09:55)
[2018-09-08] MEDS: CARBOXYMETHYLCELLULOSE SODIUM 0.4 ML DROPERETTE EACHEYE SCH (09:55)
[2018-09-08] MEDS: PROSTAT (PYXIS) 30 ML UDC GT SCH ×3 (09:55→17:43)
[2018-09-08] MEDS: ASCORBIC ACID 500 MG TABLET GT SCH (09:55)
[2018-09-08] MEDS: LEVETIRACETAM SOL (5 ML) 100 MG/ML UDC GT SCH ×2 (09:55→20:05)
[2018-09-08] MEDS: CHLORHEXIDINE GLUCONATE 15 ML UDC MM SCH ×2 (09:55→20:05)
[2018-09-08] MEDS: MORPHINE SULFATE SOLN CONCENTRATED 20 MG/ML SL SCH ×2 (09:56→20:06)
[2018-09-08] MEDS: CLOTRIMAZOLE/BETAMETASONE DIPROPIONATE 15 GM TUBE TP SCH ×2 (10:30→20:06)
[2018-09-08] MEDS: THERAHONEY GEL 1.5 OZ TUBE TP SCH ×2 (10:30→20:06)
[2018-09-08] MEDS: HYDROGEN PEROXIDE 480 ML BOTTLE TP SCH ×2 (10:30→20:06)
[2018-09-08] MEDS: COD LIVER OIL/ZINC OXIDE 120 GM TUBE TP SCH ×2 (10:30→20:06)
[2018-09-09] VITALS (8 sets, daily range): BP systolic 115–135; BP diastolic 55–66
[2018-09-09] MEDS: IPRATROPIUM NEB FS 0.5 MG/2.5 ML AMPUL.NEB IH SCH ×4 (01:25→20:14)
[2018-09-09] MEDS: ALBUTEROL FS 2.5 MG/3 ML VIAL.NEB NEB SCH ×4 (01:25→20:14)
[2018-09-09] MEDS: OMEPRAZOLE 20 MG CAPSULE.DR GT SCH (05:27)
[2018-09-09] MEDS: METOCLOPRAMIDE HCL 10 MG TABLET GT SCH ×4 (05:27→17:22)
[2018-09-09] MEDS: LEVOTHYROXINE SODIUM 88 MCG TABLET GT SCH (05:27)
[2018-09-09] MEDS: HYDROGEN PEROXIDE 480 ML BOTTLE TP SCH ×2 (09:00→21:09)
[2018-09-09] MEDS: THERAHONEY GEL 1.5 OZ TUBE TP SCH ×2 (09:00→21:09)
[2018-09-09] MEDS: COD LIVER OIL/ZINC OXIDE 120 GM TUBE TP SCH ×2 (09:00→21:09)
[2018-09-09] MEDS: CLOTRIMAZOLE/BETAMETASONE DIPROPIONATE 15 GM TUBE TP SCH ×2 (09:00→21:09)
[2018-09-09] MEDS: CARBOXYMETHYLCELLULOSE SODIUM 0.4 ML DROPERETTE EACHEYE SCH (09:27)
[2018-09-09] MEDS: LEVETIRACETAM SOL (5 ML) 100 MG/ML UDC GT SCH ×2 (09:27→21:09)
[2018-09-09] MEDS: MULTIVIT W/MINERALS 1 TAB TABLET GT SCH (09:27)
[2018-09-09] MEDS: PROSTAT (PYXIS) 30 ML UDC GT SCH ×3 (09:27→17:22)
[2018-09-09] MEDS: ASCORBIC ACID 500 MG TABLET GT SCH (09:27)
[2018-09-09] MEDS: ZINC SULFATE 220 MG CAPSULE GT SCH (09:27)
[2018-09-09] MEDS: ACIDOPHILUS/BULGARICUS 1 EACH TAB.CHEW GT SCH (09:27)
[2018-09-09] MEDS: CHLORHEXIDINE GLUCONATE 15 ML UDC MM SCH ×2 (09:28→21:09)
[2018-09-09] MEDS: MORPHINE SULFATE SOLN CONCENTRATED 20 MG/ML SL SCH ×2 (09:28→21:09)
[2018-09-10] VITALS (8 sets, daily range): BP systolic 94–129; BP diastolic 45–73
[2018-09-10] MEDS: METOCLOPRAMIDE HCL 10 MG TABLET GT SCH ×5 (00:48→23:28)
[2018-09-10] MEDS: ALBUTEROL FS 2.5 MG/3 ML VIAL.NEB NEB SCH ×4 (01:30→19:43)
[2018-09-10] MEDS: IPRATROPIUM NEB FS 0.5 MG/2.5 ML AMPUL.NEB IH SCH ×4 (01:30→19:43)
[2018-09-10] MEDS: LEVOTHYROXINE SODIUM 88 MCG TABLET GT SCH (06:08)
[2018-09-10] MEDS: OMEPRAZOLE 20 MG CAPSULE.DR GT SCH (06:08)
[2018-09-10] MEDS: LEVETIRACETAM SOL (5 ML) 100 MG/ML UDC GT SCH ×2 (08:56→21:07)
[2018-09-10] MEDS: CARBOXYMETHYLCELLULOSE SODIUM 0.4 ML DROPERETTE EACHEYE SCH (08:56)
[2018-09-10] MEDS: PROSTAT (PYXIS) 30 ML UDC GT SCH ×3 (08:58→17:15)
[2018-09-10] MEDS: MULTIVIT W/MINERALS 1 TAB TABLET GT SCH (08:58)
[2018-09-10] MEDS: ASCORBIC ACID 500 MG TABLET GT SCH (08:58)
[2018-09-10] MEDS: ACIDOPHILUS/BULGARICUS 1 EACH TAB.CHEW GT SCH (08:58)
[2018-09-10] MEDS: CHLORHEXIDINE GLUCONATE 15 ML UDC MM SCH ×2 (08:58→21:07)
[2018-09-10] MEDS: ZINC SULFATE 220 MG CAPSULE GT SCH (08:58)
[2018-09-10] MEDS: MORPHINE SULFATE SOLN CONCENTRATED 20 MG/ML SL SCH ×2 (08:58→21:07)
[2018-09-10] MEDS: COD LIVER OIL/ZINC OXIDE 120 GM TUBE TP SCH ×2 (09:00→21:07)
[2018-09-10] MEDS: HYDROGEN PEROXIDE 480 ML BOTTLE TP SCH ×2 (09:00→21:08)
[2018-09-10] MEDS: CLOTRIMAZOLE/BETAMETASONE DIPROPIONATE 15 GM TUBE TP SCH ×2 (09:00→21:08)
[2018-09-10] MEDS: THERAHONEY GEL 1.5 OZ TUBE TP SCH ×2 (09:00→21:08)
[2018-09-10] MEDS: GLUCERNA 1.2 1,000 ML BOTTLE GT PRN (14:24)
[2018-09-11] VITALS (9 sets, daily range): BP systolic 93–110; BP diastolic 39–59
[2018-09-11] MEDS: IPRATROPIUM NEB FS 0.5 MG/2.5 ML AMPUL.NEB IH SCH ×4 (00:41→19:30)
[2018-09-11] MEDS: ALBUTEROL FS 2.5 MG/3 ML VIAL.NEB NEB SCH ×4 (00:41→19:30)
[2018-09-11] MEDS: OMEPRAZOLE 20 MG CAPSULE.DR GT SCH (05:31)
[2018-09-11] MEDS: LEVOTHYROXINE SODIUM 88 MCG TABLET GT SCH (05:31)
[2018-09-11] MEDS: METOCLOPRAMIDE HCL 10 MG TABLET GT SCH ×4 (05:31→23:41)
[2018-09-11] MEDS: CHLORHEXIDINE GLUCONATE 15 ML UDC MM SCH ×2 (08:17→20:26)
[2018-09-11] MEDS: MULTIVIT W/MINERALS 1 TAB TABLET GT SCH (08:17)
[2018-09-11] MEDS: ACIDOPHILUS/BULGARICUS 1 EACH TAB.CHEW GT SCH (08:17)
[2018-09-11] MEDS: CARBOXYMETHYLCELLULOSE SODIUM 0.4 ML DROPERETTE EACHEYE SCH (08:17)
[2018-09-11] MEDS: ASCORBIC ACID 500 MG TABLET GT SCH (08:17)
[2018-09-11] MEDS: ZINC SULFATE 220 MG CAPSULE GT SCH (08:17)
[2018-09-11] MEDS: PROSTAT (PYXIS) 30 ML UDC GT SCH ×3 (08:17→17:56)
[2018-09-11] MEDS: LEVETIRACETAM SOL (5 ML) 100 MG/ML UDC GT SCH ×2 (08:17→20:26)
[2018-09-11] MEDS: MORPHINE SULFATE SOLN CONCENTRATED 20 MG/ML SL SCH ×2 (08:21→20:27)
[2018-09-11] MEDS: THERAHONEY GEL 1.5 OZ TUBE TP SCH ×2 (09:00→21:00)
[2018-09-11] MEDS: CLOTRIMAZOLE/BETAMETASONE DIPROPIONATE 15 GM TUBE TP SCH ×2 (09:00→21:00)
[2018-09-11] MEDS: COD LIVER OIL/ZINC OXIDE 120 GM TUBE TP SCH ×2 (09:00→21:00)
[2018-09-11] MEDS: HYDROGEN PEROXIDE 480 ML BOTTLE TP SCH ×2 (09:00→21:00)
[2018-09-11] MEDS: GLUCERNA 1.2 1,000 ML BOTTLE GT PRN (11:40)
--- NOTE | 2018-09-11 18:45 | NUR ---
Pt noted with closed blister on the right fourth finger. Received order to apply betadine paint q shift for 14 days. Addendum: 09/11/18 at 1846 by PER MARTEL RN Yuly Orellana.
[2018-09-11] MEDS: POVIDONE-IODINE OINT 28.4 GM TUBE TP SCH (20:27)
[2018-09-12] VITALS (9 sets, daily range): BP systolic 108–126; BP diastolic 48–78
[2018-09-12] MEDS: IPRATROPIUM NEB FS 0.5 MG/2.5 ML AMPUL.NEB IH SCH ×4 (00:59→19:34)
[2018-09-12] MEDS: ALBUTEROL FS 2.5 MG/3 ML VIAL.NEB NEB SCH ×4 (00:59→19:34)
[2018-09-12] MEDS: METOCLOPRAMIDE HCL 10 MG TABLET GT SCH ×4 (05:42→23:56)
[2018-09-12] MEDS: OMEPRAZOLE 20 MG CAPSULE.DR GT SCH (05:42)
[2018-09-12] MEDS: LEVOTHYROXINE SODIUM 88 MCG TABLET GT SCH (05:42)
[2018-09-12] MEDS: CLOTRIMAZOLE/BETAMETASONE DIPROPIONATE 15 GM TUBE TP SCH ×2 (09:00→21:17)
[2018-09-12] MEDS: COD LIVER OIL/ZINC OXIDE 120 GM TUBE TP SCH ×2 (09:00→21:17)
[2018-09-12] MEDS: POVIDONE-IODINE OINT 28.4 GM TUBE TP SCH (09:00)
[2018-09-12] MEDS: HYDROGEN PEROXIDE 480 ML BOTTLE TP SCH ×2 (09:00→21:17)
[2018-09-12] MEDS: CARBOXYMETHYLCELLULOSE SODIUM 0.4 ML DROPERETTE EACHEYE SCH (09:24)
[2018-09-12] MEDS: LEVETIRACETAM SOL (5 ML) 100 MG/ML UDC GT SCH ×2 (09:29→21:16)
[2018-09-12] MEDS: ACIDOPHILUS/BULGARICUS 1 EACH TAB.CHEW GT SCH (09:29)
[2018-09-12] MEDS: PROSTAT (PYXIS) 30 ML UDC GT SCH ×3 (09:30→16:42)
[2018-09-12] MEDS: ASCORBIC ACID 500 MG TABLET GT SCH (09:30)
[2018-09-12] MEDS: CHLORHEXIDINE GLUCONATE 15 ML UDC MM SCH ×2 (09:30→21:16)
[2018-09-12] MEDS: MULTIVIT W/MINERALS 1 TAB TABLET GT SCH (09:30)
[2018-09-12] MEDS: ZINC SULFATE 220 MG CAPSULE GT SCH (09:30)
[2018-09-12] MEDS: MORPHINE SULFATE SOLN CONCENTRATED 20 MG/ML SL SCH ×2 (09:30→21:17)
[2018-09-12] MEDS: THERAHONEY GEL 1.5 OZ TUBE TP SCH ×2 (10:00→21:19)
--- NOTE | 2018-09-12 10:19 | NUR ---
Patient seen by Dr. Monet, no new orders at this time. Vital signs stable, patient lying down comfortably. Bed at the lowest setting. BMV at bedside.
[2018-09-12] MEDS: NEOMY SULF/BACITRAC ZN/POLY 15 GM TUBE TP SCH (21:17)
[2018-09-13] VITALS (8 sets, daily range): BP systolic 101–123; BP diastolic 44–68
[2018-09-13] MEDS: IPRATROPIUM NEB FS 0.5 MG/2.5 ML AMPUL.NEB IH SCH ×4 (00:38→19:35)
[2018-09-13] MEDS: ALBUTEROL FS 2.5 MG/3 ML VIAL.NEB NEB SCH ×4 (00:38→19:35)
[2018-09-13] MEDS: METOCLOPRAMIDE HCL 10 MG TABLET GT SCH ×3 (05:55→18:19)
[2018-09-13] MEDS: OMEPRAZOLE 20 MG CAPSULE.DR GT SCH (05:55)
[2018-09-13] MEDS: LEVOTHYROXINE SODIUM 88 MCG TABLET GT SCH (05:55)
[2018-09-13] MEDS: GLUCERNA 1.2 1,000 ML BOTTLE GT PRN (06:21)
[2018-09-13] MEDS: PROSTAT (PYXIS) 30 ML UDC GT SCH ×3 (09:18→17:00)
[2018-09-13] MEDS: CARBOXYMETHYLCELLULOSE SODIUM 0.4 ML DROPERETTE EACHEYE SCH (09:18)
[2018-09-13] MEDS: ACIDOPHILUS/BULGARICUS 1 EACH TAB.CHEW GT SCH (09:18)
[2018-09-13] MEDS: LEVETIRACETAM SOL (5 ML) 100 MG/ML UDC GT SCH ×2 (09:18→21:34)
[2018-09-13] MEDS: MULTIVIT W/MINERALS 1 TAB TABLET GT SCH (09:21)
[2018-09-13] MEDS: ZINC SULFATE 220 MG CAPSULE GT SCH (09:22)
[2018-09-13] MEDS: MORPHINE SULFATE SOLN CONCENTRATED 20 MG/ML SL SCH ×2 (09:22→21:34)
[2018-09-13] MEDS: CHLORHEXIDINE GLUCONATE 15 ML UDC MM SCH ×2 (09:22→21:34)
[2018-09-13] MEDS: ASCORBIC ACID 500 MG TABLET GT SCH (09:22)
[2018-09-13] MEDS: THERAHONEY GEL 1.5 OZ TUBE TP SCH ×2 (10:00→21:34)
[2018-09-13] MEDS: CLOTRIMAZOLE/BETAMETASONE DIPROPIONATE 15 GM TUBE TP SCH ×2 (10:00→21:34)
[2018-09-13] MEDS: COD LIVER OIL/ZINC OXIDE 120 GM TUBE TP SCH ×2 (10:00→21:34)
[2018-09-13] MEDS: HYDROGEN PEROXIDE 480 ML BOTTLE TP SCH ×2 (10:00→21:34)
[2018-09-13] MEDS: NEOMY SULF/BACITRAC ZN/POLY 15 GM TUBE TP SCH ×2 (10:00→21:34)
[2018-09-14] VITALS (8 sets, daily range): BP systolic 100–118; BP diastolic 53–65
[2018-09-14] MEDS: METOCLOPRAMIDE HCL 10 MG TABLET GT SCH ×5 (00:01→23:51)
[2018-09-14] MEDS: ALBUTEROL FS 2.5 MG/3 ML VIAL.NEB NEB SCH ×4 (00:42→19:29)
[2018-09-14] MEDS: IPRATROPIUM NEB FS 0.5 MG/2.5 ML AMPUL.NEB IH SCH ×4 (00:42→19:29)
[2018-09-14] MEDS: GLUCERNA 1.2 1,000 ML BOTTLE GT PRN (01:10)
[2018-09-14] MEDS: LEVOTHYROXINE SODIUM 88 MCG TABLET GT SCH (06:23)
[2018-09-14] MEDS: OMEPRAZOLE 20 MG CAPSULE.DR GT SCH (06:23)
[2018-09-14] MEDS: ZINC SULFATE 220 MG CAPSULE GT SCH (08:24)
[2018-09-14] MEDS: PROSTAT (PYXIS) 30 ML UDC GT SCH ×3 (08:24→17:26)
[2018-09-14] MEDS: LEVETIRACETAM SOL (5 ML) 100 MG/ML UDC GT SCH ×2 (08:24→21:01)
[2018-09-14] MEDS: ASCORBIC ACID 500 MG TABLET GT SCH (08:24)
[2018-09-14] MEDS: CARBOXYMETHYLCELLULOSE SODIUM 0.4 ML DROPERETTE EACHEYE SCH (08:24)
[2018-09-14] MEDS: MULTIVIT W/MINERALS 1 TAB TABLET GT SCH (08:24)
[2018-09-14] MEDS: ACIDOPHILUS/BULGARICUS 1 EACH TAB.CHEW GT SCH (08:24)
[2018-09-14] MEDS: CHLORHEXIDINE GLUCONATE 15 ML UDC MM SCH ×2 (08:24→21:01)
[2018-09-14] MEDS: MORPHINE SULFATE SOLN CONCENTRATED 20 MG/ML SL SCH ×2 (08:32→21:02)
[2018-09-14] MEDS: THERAHONEY GEL 1.5 OZ TUBE TP SCH ×2 (09:05→21:08)
[2018-09-14] MEDS: NEOMY SULF/BACITRAC ZN/POLY 15 GM TUBE TP SCH ×2 (09:05→21:08)
[2018-09-14] MEDS: HYDROGEN PEROXIDE 480 ML BOTTLE TP SCH ×2 (09:05→21:05)
[2018-09-14] MEDS: COD LIVER OIL/ZINC OXIDE 120 GM TUBE TP SCH ×2 (09:05→21:05)
[2018-09-14] MEDS: CLOTRIMAZOLE/BETAMETASONE DIPROPIONATE 15 GM TUBE TP SCH ×2 (09:05→21:08)
--- NOTE | 2018-09-14 15:05 | NUR ---
Seen and examined by Dr. Ross, assesses open blister in the R 4th finger. He was made aware that PA for Dr. Andrews did not do skin scraping because she did not think it is needed. Rashes in the body has improved with Lotrisone cream. Dr. Ross said to send specimen for gram stain and culture when a new blister develops to send the fluid inside the newly opened blister, not when it is dry. Endorsed.
[2018-09-15] VITALS (8 sets, daily range): BP systolic 103–126; BP diastolic 37–60
[2018-09-15] MEDS: GLUCERNA 1.2 1,000 ML BOTTLE GT PRN ×2 (00:30→21:45)
[2018-09-15] MEDS: IPRATROPIUM NEB FS 0.5 MG/2.5 ML AMPUL.NEB IH SCH ×4 (01:42→19:41)
[2018-09-15] MEDS: ALBUTEROL FS 2.5 MG/3 ML VIAL.NEB NEB SCH ×4 (01:42→19:41)
[2018-09-15] MEDS: LEVOTHYROXINE SODIUM 88 MCG TABLET GT SCH (05:26)
[2018-09-15] MEDS: METOCLOPRAMIDE HCL 10 MG TABLET GT SCH ×3 (05:26→17:26)
[2018-09-15] MEDS: OMEPRAZOLE 20 MG CAPSULE.DR GT SCH (05:26)
[2018-09-15] MEDS: CHLORHEXIDINE GLUCONATE 15 ML UDC MM SCH ×2 (08:27→21:04)
[2018-09-15] MEDS: PROSTAT (PYXIS) 30 ML UDC GT SCH ×3 (08:27→17:26)
[2018-09-15] MEDS: ASCORBIC ACID 500 MG TABLET GT SCH (08:27)
[2018-09-15] MEDS: MULTIVIT W/MINERALS 1 TAB TABLET GT SCH (08:27)
[2018-09-15] MEDS: CARBOXYMETHYLCELLULOSE SODIUM 0.4 ML DROPERETTE EACHEYE SCH (08:27)
[2018-09-15] MEDS: ACIDOPHILUS/BULGARICUS 1 EACH TAB.CHEW GT SCH (08:27)
[2018-09-15] MEDS: ZINC SULFATE 220 MG CAPSULE GT SCH (08:27)
[2018-09-15] MEDS: LEVETIRACETAM SOL (5 ML) 100 MG/ML UDC GT SCH ×2 (08:27→21:04)
[2018-09-15] MEDS: MORPHINE SULFATE SOLN CONCENTRATED 20 MG/ML SL SCH ×2 (08:28→21:04)
[2018-09-15] MEDS: NEOMY SULF/BACITRAC ZN/POLY 15 GM TUBE TP SCH ×2 (09:00→21:05)
[2018-09-15] MEDS: CLOTRIMAZOLE/BETAMETASONE DIPROPIONATE 15 GM TUBE TP SCH ×2 (09:00→21:05)
[2018-09-15] MEDS: THERAHONEY GEL 1.5 OZ TUBE TP SCH ×2 (09:00→21:05)
[2018-09-15] MEDS: HYDROGEN PEROXIDE 480 ML BOTTLE TP SCH ×2 (09:00→21:05)
[2018-09-15] MEDS: COD LIVER OIL/ZINC OXIDE 120 GM TUBE TP SCH ×2 (09:00→21:04)
--- NOTE | 2018-09-15 19:24 | NUR ---
Routine trach tube changed done by 2 RT's and licensed at bedside, procedure tolerated well, minimal bleeding noted. Trach intact at midline, airway patent, no respiratory distress noted. No signs of discomfort noted.
[2018-09-16] VITALS (9 sets, daily range): BP systolic 98–127; BP diastolic 51–62
[2018-09-16] MEDS: METOCLOPRAMIDE HCL 10 MG TABLET GT SCH ×4 (00:40→17:25)
[2018-09-16] MEDS: IPRATROPIUM NEB FS 0.5 MG/2.5 ML AMPUL.NEB IH SCH ×4 (01:13→19:33)
[2018-09-16] MEDS: ALBUTEROL FS 2.5 MG/3 ML VIAL.NEB NEB SCH ×4 (01:13→19:33)
[2018-09-16] MEDS: OMEPRAZOLE 20 MG CAPSULE.DR GT SCH (05:32)
[2018-09-16] MEDS: LEVOTHYROXINE SODIUM 88 MCG TABLET GT SCH (05:32)
[2018-09-16] MEDS: PROSTAT (PYXIS) 30 ML UDC GT SCH ×3 (08:40→17:25)
[2018-09-16] MEDS: MULTIVIT W/MINERALS 1 TAB TABLET GT SCH (08:40)
[2018-09-16] MEDS: ZINC SULFATE 220 MG CAPSULE GT SCH (08:40)
[2018-09-16] MEDS: ASCORBIC ACID 500 MG TABLET GT SCH (08:40)
[2018-09-16] MEDS: CARBOXYMETHYLCELLULOSE SODIUM 0.4 ML DROPERETTE EACHEYE SCH (08:40)
[2018-09-16] MEDS: ACIDOPHILUS/BULGARICUS 1 EACH TAB.CHEW GT SCH (08:40)
[2018-09-16] MEDS: CHLORHEXIDINE GLUCONATE 15 ML UDC MM SCH ×2 (08:40→21:06)
[2018-09-16] MEDS: LEVETIRACETAM SOL (5 ML) 100 MG/ML UDC GT SCH ×2 (08:40→21:06)
[2018-09-16] MEDS: MORPHINE SULFATE SOLN CONCENTRATED 20 MG/ML SL SCH ×2 (08:40→21:06)
[2018-09-16] MEDS: CLOTRIMAZOLE/BETAMETASONE DIPROPIONATE 15 GM TUBE TP SCH ×2 (09:15→21:07)
[2018-09-16] MEDS: COD LIVER OIL/ZINC OXIDE 120 GM TUBE TP SCH ×2 (09:15→21:07)
[2018-09-16] MEDS: THERAHONEY GEL 1.5 OZ TUBE TP SCH ×2 (09:15→21:07)
[2018-09-16] MEDS: HYDROGEN PEROXIDE 480 ML BOTTLE TP SCH ×2 (09:15→21:07)
[2018-09-16] MEDS: NEOMY SULF/BACITRAC ZN/POLY 15 GM TUBE TP SCH ×2 (09:15→21:07)
[2018-09-17] VITALS (8 sets, daily range): BP systolic 88–112; BP diastolic 51–61
[2018-09-17] MEDS: METOCLOPRAMIDE HCL 10 MG TABLET GT SCH ×4 (00:15→17:44)
[2018-09-17] MEDS: ALBUTEROL FS 2.5 MG/3 ML VIAL.NEB NEB SCH ×4 (02:02→20:03)
[2018-09-17] MEDS: IPRATROPIUM NEB FS 0.5 MG/2.5 ML AMPUL.NEB IH SCH ×4 (02:02→20:03)
[2018-09-17] MEDS: LEVOTHYROXINE SODIUM 88 MCG TABLET GT SCH (05:51)
[2018-09-17] MEDS: OMEPRAZOLE 20 MG CAPSULE.DR GT SCH (05:51)
[2018-09-17] MEDS: CARBOXYMETHYLCELLULOSE SODIUM 0.4 ML DROPERETTE EACHEYE SCH (08:36)
[2018-09-17] MEDS: CHLORHEXIDINE GLUCONATE 15 ML UDC MM SCH ×2 (08:36→21:03)
[2018-09-17] MEDS: PROSTAT (PYXIS) 30 ML UDC GT SCH ×3 (08:36→17:44)
[2018-09-17] MEDS: MULTIVIT W/MINERALS 1 TAB TABLET GT SCH (08:36)
[2018-09-17] MEDS: LEVETIRACETAM SOL (5 ML) 100 MG/ML UDC GT SCH ×2 (08:36→21:03)
[2018-09-17] MEDS: MORPHINE SULFATE SOLN CONCENTRATED 20 MG/ML SL SCH ×2 (08:36→21:03)
[2018-09-17] MEDS: ZINC SULFATE 220 MG CAPSULE GT SCH (08:36)
[2018-09-17] MEDS: ASCORBIC ACID 500 MG TABLET GT SCH (08:36)
[2018-09-17] MEDS: ACIDOPHILUS/BULGARICUS 1 EACH TAB.CHEW GT SCH (08:36)
[2018-09-17] MEDS: CLOTRIMAZOLE/BETAMETASONE DIPROPIONATE 15 GM TUBE TP SCH (09:10)
[2018-09-17] MEDS: THERAHONEY GEL 1.5 OZ TUBE TP SCH ×2 (09:10→21:03)
[2018-09-17] MEDS: COD LIVER OIL/ZINC OXIDE 120 GM TUBE TP SCH ×2 (09:10→21:03)
[2018-09-17] MEDS: NEOMY SULF/BACITRAC ZN/POLY 15 GM TUBE TP SCH ×2 (09:10→21:03)
[2018-09-17] MEDS: HYDROGEN PEROXIDE 480 ML BOTTLE TP SCH ×2 (09:10→21:03)
[2018-09-17] MEDS: GLUCERNA 1.2 1,000 ML BOTTLE GT PRN (17:47)
[2018-09-18] VITALS (7 sets, daily range): BP systolic 102–123; BP diastolic 39–61
[2018-09-18] MEDS: ALBUTEROL FS 2.5 MG/3 ML VIAL.NEB NEB SCH ×4 (01:16→19:55)
[2018-09-18] MEDS: IPRATROPIUM NEB FS 0.5 MG/2.5 ML AMPUL.NEB IH SCH ×4 (01:16→19:55)
--- NOTE | 2018-09-18 02:28 | NUR ---
RT NOTE: RECEIVED PT ON 28% C/A. NO RESPIRATORY DISTRESS NOTED. TRACH CHECKED SECURE AND PATENT. SXD AND LAVAGE PT Q ROUND AND NEEDED. TXS GIVEN ORDERED WITH NO ADVERSE REACTIONS NOTED. PRICILAE NORMA AND RUI HORNER @ BEDSIDE. WILL CONTINUE TO MONITOR. Addendum: 09/18/18 at 0229 by BENJAMÍN MORTON RT Amended: Links added.
[2018-09-18] MEDS: OMEPRAZOLE 20 MG CAPSULE.DR GT SCH (06:03)
[2018-09-18] MEDS: METOCLOPRAMIDE HCL 10 MG TABLET GT SCH ×4 (06:03→17:42)
[2018-09-18] MEDS: LEVOTHYROXINE SODIUM 88 MCG TABLET GT SCH (06:04)
[2018-09-18] MEDS: CARBOXYMETHYLCELLULOSE SODIUM 0.4 ML DROPERETTE EACHEYE SCH (08:16)
[2018-09-18] MEDS: MORPHINE SULFATE SOLN CONCENTRATED 20 MG/ML SL SCH ×2 (08:16→21:18)
[2018-09-18] MEDS: THERAHONEY GEL 1.5 OZ TUBE TP SCH ×2 (09:00→21:18)
[2018-09-18] MEDS: HYDROGEN PEROXIDE 480 ML BOTTLE TP SCH ×2 (09:00→21:18)
[2018-09-18] MEDS: NEOMY SULF/BACITRAC ZN/POLY 15 GM TUBE TP SCH ×2 (09:00→21:18)
[2018-09-18] MEDS: COD LIVER OIL/ZINC OXIDE 120 GM TUBE TP SCH ×2 (09:00→21:18)
[2018-09-18] MEDS: ZINC SULFATE 220 MG CAPSULE GT SCH (09:30)
[2018-09-18] MEDS: PROSTAT (PYXIS) 30 ML UDC GT SCH ×3 (09:30→17:42)
[2018-09-18] MEDS: ACIDOPHILUS/BULGARICUS 1 EACH TAB.CHEW GT SCH (09:30)
[2018-09-18] MEDS: ASCORBIC ACID 500 MG TABLET GT SCH (09:30)
[2018-09-18] MEDS: LEVETIRACETAM SOL (5 ML) 100 MG/ML UDC GT SCH ×2 (09:30→21:18)
[2018-09-18] MEDS: CHLORHEXIDINE GLUCONATE 15 ML UDC MM SCH ×2 (09:30→21:18)
[2018-09-18] MEDS: MULTIVIT W/MINERALS 1 TAB TABLET GT SCH (09:30)
[2018-09-19] VITALS (8 sets, daily range): BP systolic 103–121; BP diastolic 42–63
[2018-09-19] MEDS: METOCLOPRAMIDE HCL 10 MG TABLET GT SCH ×4 (00:16→17:27)
[2018-09-19] MEDS: IPRATROPIUM NEB FS 0.5 MG/2.5 ML AMPUL.NEB IH SCH ×4 (01:42→19:53)
[2018-09-19] MEDS: ALBUTEROL FS 2.5 MG/3 ML VIAL.NEB NEB SCH ×4 (01:42→19:53)
[2018-09-19] MEDS: OMEPRAZOLE 20 MG CAPSULE.DR GT SCH (05:40)
[2018-09-19] MEDS: LEVOTHYROXINE SODIUM 88 MCG TABLET GT SCH (05:40)
[2018-09-19] MEDS: ZINC SULFATE 220 MG CAPSULE GT SCH (08:28)
[2018-09-19] MEDS: MORPHINE SULFATE SOLN CONCENTRATED 20 MG/ML SL SCH ×2 (08:28→21:04)
[2018-09-19] MEDS: MULTIVIT W/MINERALS 1 TAB TABLET GT SCH (08:28)
[2018-09-19] MEDS: PROSTAT (PYXIS) 30 ML UDC GT SCH ×3 (08:28→17:27)
[2018-09-19] MEDS: ACIDOPHILUS/BULGARICUS 1 EACH TAB.CHEW GT SCH (08:28)
[2018-09-19] MEDS: LEVETIRACETAM SOL (5 ML) 100 MG/ML UDC GT SCH ×2 (08:28→21:03)
[2018-09-19] MEDS: ASCORBIC ACID 500 MG TABLET GT SCH (08:28)
[2018-09-19] MEDS: CHLORHEXIDINE GLUCONATE 15 ML UDC MM SCH ×2 (08:28→21:03)
[2018-09-19] MEDS: CARBOXYMETHYLCELLULOSE SODIUM 0.4 ML DROPERETTE EACHEYE SCH (08:28)
[2018-09-19] MEDS: COD LIVER OIL/ZINC OXIDE 120 GM TUBE TP SCH ×2 (10:00→21:04)
[2018-09-19] MEDS: HYDROGEN PEROXIDE 480 ML BOTTLE TP SCH ×2 (10:00→21:04)
[2018-09-19] MEDS: NEOMY SULF/BACITRAC ZN/POLY 15 GM TUBE TP SCH ×2 (10:00→21:04)
[2018-09-19] MEDS: THERAHONEY GEL 1.5 OZ TUBE TP SCH ×2 (10:00→21:04)
[2018-09-19] MEDS: GLUCERNA 1.2 1,000 ML BOTTLE GT PRN (11:33)
[2018-09-20] VITALS (9 sets, daily range): BP systolic 100–114; BP diastolic 51–62
[2018-09-20] MEDS: METOCLOPRAMIDE HCL 10 MG TABLET GT SCH ×4 (00:24→17:26)
[2018-09-20] MEDS: IPRATROPIUM NEB FS 0.5 MG/2.5 ML AMPUL.NEB IH SCH ×4 (01:21→19:18)
[2018-09-20] MEDS: ALBUTEROL FS 2.5 MG/3 ML VIAL.NEB NEB SCH ×4 (01:21→19:18)
[2018-09-20] MEDS: OMEPRAZOLE 20 MG CAPSULE.DR GT SCH (05:26)
[2018-09-20] MEDS: LEVOTHYROXINE SODIUM 88 MCG TABLET GT SCH (05:26)
[2018-09-20] MEDS: GLUCERNA 1.2 1,000 ML BOTTLE GT PRN (06:00)
[2018-09-20] MEDS: MORPHINE SULFATE SOLN CONCENTRATED 20 MG/ML SL SCH ×2 (08:30→20:37)
[2018-09-20] MEDS: CARBOXYMETHYLCELLULOSE SODIUM 0.4 ML DROPERETTE EACHEYE SCH (08:35)
[2018-09-20] MEDS: ZINC SULFATE 220 MG CAPSULE GT SCH (08:35)
[2018-09-20] MEDS: LEVETIRACETAM SOL (5 ML) 100 MG/ML UDC GT SCH ×2 (08:35→20:37)
[2018-09-20] MEDS: ASCORBIC ACID 500 MG TABLET GT SCH (08:35)
[2018-09-20] MEDS: ACIDOPHILUS/BULGARICUS 1 EACH TAB.CHEW GT SCH (08:35)
[2018-09-20] MEDS: PROSTAT (PYXIS) 30 ML UDC GT SCH ×3 (08:35→17:26)
[2018-09-20] MEDS: CHLORHEXIDINE GLUCONATE 15 ML UDC MM SCH ×2 (08:35→20:37)
[2018-09-20] MEDS: MULTIVIT W/MINERALS 1 TAB TABLET GT SCH (08:35)
[2018-09-20] MEDS: NEOMY SULF/BACITRAC ZN/POLY 15 GM TUBE TP SCH ×2 (09:10→20:39)
[2018-09-20] MEDS: THERAHONEY GEL 1.5 OZ TUBE TP SCH ×2 (09:10→20:40)
[2018-09-20] MEDS: COD LIVER OIL/ZINC OXIDE 120 GM TUBE TP SCH ×2 (09:10→20:38)
[2018-09-20] MEDS: HYDROGEN PEROXIDE 480 ML BOTTLE TP SCH ×2 (09:10→20:38)
[2018-09-20] MEDS: NYSTATIN/TRIAMCIN CREAM 15 GM TUBE TP SCH ×2 (10:54→20:39)
[2018-09-21] MEDS: METOCLOPRAMIDE HCL 10 MG TABLET GT SCH ×5 (00:04→23:16)
[2018-09-21] MEDS: IPRATROPIUM NEB FS 0.5 MG/2.5 ML AMPUL.NEB IH SCH ×4 (00:39→19:39)
[2018-09-21] MEDS: ALBUTEROL FS 2.5 MG/3 ML VIAL.NEB NEB SCH ×4 (00:39→19:39)
[2018-09-21 01:00] VITALS: BP 102/72
[2018-09-21 05:16] VITALS: BP 103/54
[2018-09-21] MEDS: GLUCERNA 1.2 1,000 ML BOTTLE GT PRN (05:19)
[2018-09-21] MEDS: OMEPRAZOLE 20 MG CAPSULE.DR GT SCH (05:19)
[2018-09-21] MEDS: LEVOTHYROXINE SODIUM 88 MCG TABLET GT SCH (05:19)
[2018-09-21 08:07] VITALS: BP 95/52
[2018-09-21] MEDS: CARBOXYMETHYLCELLULOSE SODIUM 0.4 ML DROPERETTE EACHEYE SCH (08:12)
[2018-09-21] MEDS: CHLORHEXIDINE GLUCONATE 15 ML UDC MM SCH ×2 (08:13→20:51)
[2018-09-21] MEDS: ZINC SULFATE 220 MG CAPSULE GT SCH (08:13)
[2018-09-21] MEDS: ASCORBIC ACID 500 MG TABLET GT SCH (08:13)
[2018-09-21] MEDS: ACIDOPHILUS/BULGARICUS 1 EACH TAB.CHEW GT SCH (08:13)
[2018-09-21] MEDS: PROSTAT (PYXIS) 30 ML UDC GT SCH ×3 (08:13→17:00)
[2018-09-21] MEDS: LEVETIRACETAM SOL (5 ML) 100 MG/ML UDC GT SCH ×2 (08:13→20:51)
[2018-09-21] MEDS: MULTIVIT W/MINERALS 1 TAB TABLET GT SCH (08:13)
[2018-09-21] MEDS: MORPHINE SULFATE SOLN CONCENTRATED 20 MG/ML SL SCH ×2 (08:17→20:51)
[2018-09-21] MEDS: HYDROGEN PEROXIDE 480 ML BOTTLE TP SCH ×2 (09:00→20:52)
[2018-09-21] MEDS: NYSTATIN/TRIAMCIN CREAM 15 GM TUBE TP SCH ×2 (09:00→20:52)
[2018-09-21] MEDS: NEOMY SULF/BACITRAC ZN/POLY 15 GM TUBE TP SCH ×2 (09:00→20:52)
[2018-09-21] MEDS: THERAHONEY GEL 1.5 OZ TUBE TP SCH ×2 (09:00→20:52)
[2018-09-21] MEDS: COD LIVER OIL/ZINC OXIDE 120 GM TUBE TP SCH ×2 (09:00→20:52)
[2018-09-21 13:00] VITALS: BP 98/54
--- NOTE | 2018-09-21 14:30 | NUR ---
INTERDISCIPLINARY TEAM CONFERENCE (IDT) was held today. Resident's family member was not able to attend today's IDT meeting. Dr. Monet and the interdisciplinary team reviewed the current plan of care in detail. Orders as well as treatment and medications were reviewed. Reported that patient has allergy to shellfish and its products, Betadine was added as part of patient's allergy.
[2018-09-21 18:00] VITALS: BP 113/59
[2018-09-21 21:18] VITALS: BP 108/57
[2018-09-22] VITALS (9 sets, daily range): BP systolic 104–157; BP diastolic 45–89
[2018-09-22] MEDS: IPRATROPIUM NEB FS 0.5 MG/2.5 ML AMPUL.NEB IH SCH ×4 (00:47→19:24)
[2018-09-22] MEDS: ALBUTEROL FS 2.5 MG/3 ML VIAL.NEB NEB SCH ×4 (00:47→19:24)
[2018-09-22] MEDS: OMEPRAZOLE 20 MG CAPSULE.DR GT SCH (05:09)
[2018-09-22] MEDS: GLUCERNA 1.2 1,000 ML BOTTLE GT PRN (05:09)
[2018-09-22] MEDS: LEVOTHYROXINE SODIUM 88 MCG TABLET GT SCH (05:09)
[2018-09-22] MEDS: METOCLOPRAMIDE HCL 10 MG TABLET GT SCH ×4 (05:09→23:20)
[2018-09-22] MEDS: PROSTAT (PYXIS) 30 ML UDC GT SCH ×3 (09:42→17:16)
[2018-09-22] MEDS: ASCORBIC ACID 500 MG TABLET GT SCH (09:42)
[2018-09-22] MEDS: MULTIVIT W/MINERALS 1 TAB TABLET GT SCH (09:42)
[2018-09-22] MEDS: ACIDOPHILUS/BULGARICUS 1 EACH TAB.CHEW GT SCH (09:42)
[2018-09-22] MEDS: CARBOXYMETHYLCELLULOSE SODIUM 0.4 ML DROPERETTE EACHEYE SCH (09:42)
[2018-09-22] MEDS: LEVETIRACETAM SOL (5 ML) 100 MG/ML UDC GT SCH ×2 (09:42→20:14)
[2018-09-22] MEDS: MORPHINE SULFATE SOLN CONCENTRATED 20 MG/ML SL SCH ×2 (09:43→20:14)
[2018-09-22] MEDS: CHLORHEXIDINE GLUCONATE 15 ML UDC MM SCH ×2 (09:43→20:14)
[2018-09-22] MEDS: ZINC SULFATE 220 MG CAPSULE GT SCH (09:43)
[2018-09-22] MEDS: THERAHONEY GEL 1.5 OZ TUBE TP SCH ×2 (10:30→20:16)
[2018-09-22] MEDS: COD LIVER OIL/ZINC OXIDE 120 GM TUBE TP SCH ×2 (10:30→20:15)
[2018-09-22] MEDS: NYSTATIN/TRIAMCIN CREAM 15 GM TUBE TP SCH ×2 (10:30→20:15)
[2018-09-22] MEDS: NEOMY SULF/BACITRAC ZN/POLY 15 GM TUBE TP SCH ×2 (10:30→20:15)
[2018-09-22] MEDS: HYDROGEN PEROXIDE 480 ML BOTTLE TP SCH ×2 (10:30→20:15)
--- NOTE | 2018-09-22 10:36 | NUR ---
Seen and examined by Dr. Ross, no new order given.
[2018-09-23] VITALS (8 sets, daily range): BP systolic 100–113; BP diastolic 45–67
[2018-09-23] MEDS: IPRATROPIUM NEB FS 0.5 MG/2.5 ML AMPUL.NEB IH SCH ×4 (01:15→19:27)
[2018-09-23] MEDS: ALBUTEROL FS 2.5 MG/3 ML VIAL.NEB NEB SCH ×4 (01:15→19:27)
--- NOTE | 2018-09-23 04:01 | NUR ---
RT NOTE: RECEIVED PT ON 28% C/A. NO RESPIRATORY DISTRESS NOTED. TRACH CHECKED SECURE AND PATENT. SXD AND LAVAGED PT Q ROUND AND NEEDED. TXS GIVEN ORDERED WITH NO ADVERSE REACTIONS NOTED. YULISSA GREEN AND RUI HORNER @ BEDSIDE. WILL CONTINUE TO MONITOR. Addendum: 09/23/18 at 0401 by BENJAMÍN MORTON RT Amended: Links added.
[2018-09-23] MEDS: OMEPRAZOLE 20 MG CAPSULE.DR GT SCH (05:11)
[2018-09-23] MEDS: GLUCERNA 1.2 1,000 ML BOTTLE GT PRN (05:11)
[2018-09-23] MEDS: LEVOTHYROXINE SODIUM 88 MCG TABLET GT SCH (05:11)
[2018-09-23] MEDS: METOCLOPRAMIDE HCL 10 MG TABLET GT SCH ×3 (05:11→18:08)
[2018-09-23] MEDS: CARBOXYMETHYLCELLULOSE SODIUM 0.4 ML DROPERETTE EACHEYE SCH (08:45)
[2018-09-23] MEDS: MULTIVIT W/MINERALS 1 TAB TABLET GT SCH (08:51)
[2018-09-23] MEDS: LEVETIRACETAM SOL (5 ML) 100 MG/ML UDC GT SCH ×2 (08:51→20:50)
[2018-09-23] MEDS: ASCORBIC ACID 500 MG TABLET GT SCH (08:51)
[2018-09-23] MEDS: ZINC SULFATE 220 MG CAPSULE GT SCH (08:51)
[2018-09-23] MEDS: ACIDOPHILUS/BULGARICUS 1 EACH TAB.CHEW GT SCH (08:51)
[2018-09-23] MEDS: PROSTAT (PYXIS) 30 ML UDC GT SCH ×3 (08:51→17:00)
[2018-09-23] MEDS: MORPHINE SULFATE SOLN CONCENTRATED 20 MG/ML SL SCH ×2 (08:51→20:51)
[2018-09-23] MEDS: CHLORHEXIDINE GLUCONATE 15 ML UDC MM SCH ×2 (08:51→20:50)
[2018-09-23] MEDS: THERAHONEY GEL 1.5 OZ TUBE TP SCH ×2 (09:37→20:51)
[2018-09-23] MEDS: NEOMY SULF/BACITRAC ZN/POLY 15 GM TUBE TP SCH ×2 (09:37→20:51)
[2018-09-23] MEDS: HYDROGEN PEROXIDE 480 ML BOTTLE TP SCH ×2 (09:38→20:51)
[2018-09-23] MEDS: COD LIVER OIL/ZINC OXIDE 120 GM TUBE TP SCH ×2 (09:38→20:51)
[2018-09-23] MEDS: NYSTATIN/TRIAMCIN CREAM 15 GM TUBE TP SCH ×2 (09:38→20:51)
[2018-09-24] VITALS (7 sets, daily range): BP systolic 104–143; BP diastolic 50–77
[2018-09-24] MEDS: METOCLOPRAMIDE HCL 10 MG TABLET GT SCH ×5 (00:11→23:24)
[2018-09-24] MEDS: IPRATROPIUM NEB FS 0.5 MG/2.5 ML AMPUL.NEB IH SCH ×4 (01:31→19:26)
[2018-09-24] MEDS: ALBUTEROL FS 2.5 MG/3 ML VIAL.NEB NEB SCH ×4 (01:31→19:26)
[2018-09-24] MEDS: OMEPRAZOLE 20 MG CAPSULE.DR GT SCH (06:16)
[2018-09-24] MEDS: LEVOTHYROXINE SODIUM 88 MCG TABLET GT SCH (06:16)
[2018-09-24] MEDS: MORPHINE SULFATE SOLN CONCENTRATED 20 MG/ML SL SCH ×2 (09:35→20:35)
[2018-09-24] MEDS: ACIDOPHILUS/BULGARICUS 1 EACH TAB.CHEW GT SCH (09:35)
[2018-09-24] MEDS: ZINC SULFATE 220 MG CAPSULE GT SCH (09:35)
[2018-09-24] MEDS: PROSTAT (PYXIS) 30 ML UDC GT SCH ×3 (09:35→17:01)
[2018-09-24] MEDS: MULTIVIT W/MINERALS 1 TAB TABLET GT SCH (09:35)
[2018-09-24] MEDS: CARBOXYMETHYLCELLULOSE SODIUM 0.4 ML DROPERETTE EACHEYE SCH (09:35)
[2018-09-24] MEDS: ASCORBIC ACID 500 MG TABLET GT SCH (09:35)
[2018-09-24] MEDS: CHLORHEXIDINE GLUCONATE 15 ML UDC MM SCH ×2 (09:35→20:34)
[2018-09-24] MEDS: LEVETIRACETAM SOL (5 ML) 100 MG/ML UDC GT SCH ×2 (09:35→20:34)
[2018-09-24] MEDS: NYSTATIN/TRIAMCIN CREAM 15 GM TUBE TP SCH ×2 (10:00→21:14)
[2018-09-24] MEDS: HYDROGEN PEROXIDE 480 ML BOTTLE TP SCH ×2 (10:00→21:14)
[2018-09-24] MEDS: COD LIVER OIL/ZINC OXIDE 120 GM TUBE TP SCH ×2 (10:00→21:14)
[2018-09-24] MEDS: NEOMY SULF/BACITRAC ZN/POLY 15 GM TUBE TP SCH ×2 (10:00→21:14)
[2018-09-24] MEDS: THERAHONEY GEL 1.5 OZ TUBE TP SCH ×2 (10:05→21:15)
--- NOTE | 2018-09-24 13:10 | NUR ---
Received order from Dr Monet to [facility] Roxanol PRN order per pharmacy recommendation. Pt has not used Roxanol PRN.
[2018-09-25] VITALS (8 sets, daily range): BP systolic 105–146; BP diastolic 55–66
[2018-09-25] MEDS: ALBUTEROL FS 2.5 MG/3 ML VIAL.NEB NEB SCH ×4 (00:50→19:48)
[2018-09-25] MEDS: IPRATROPIUM NEB FS 0.5 MG/2.5 ML AMPUL.NEB IH SCH ×4 (00:50→19:48)
[2018-09-25] MEDS: LEVOTHYROXINE SODIUM 88 MCG TABLET GT SCH (05:53)
[2018-09-25] MEDS: OMEPRAZOLE 20 MG CAPSULE.DR GT SCH (05:53)
[2018-09-25] MEDS: METOCLOPRAMIDE HCL 10 MG TABLET GT SCH ×4 (05:53→23:36)
[2018-09-25] MEDS: GLUCERNA 1.2 1,000 ML BOTTLE GT PRN (05:53)
[2018-09-25] MEDS: ACIDOPHILUS/BULGARICUS 1 EACH TAB.CHEW GT SCH (09:14)
[2018-09-25] MEDS: PROSTAT (PYXIS) 30 ML UDC GT SCH ×3 (09:14→17:14)
[2018-09-25] MEDS: LEVETIRACETAM SOL (5 ML) 100 MG/ML UDC GT SCH ×2 (09:14→20:43)
[2018-09-25] MEDS: CARBOXYMETHYLCELLULOSE SODIUM 0.4 ML DROPERETTE EACHEYE SCH (09:14)
[2018-09-25] MEDS: MULTIVIT W/MINERALS 1 TAB TABLET GT SCH (09:14)
[2018-09-25] MEDS: MORPHINE SULFATE SOLN CONCENTRATED 20 MG/ML SL SCH ×2 (09:15→20:44)
[2018-09-25] MEDS: ASCORBIC ACID 500 MG TABLET GT SCH (09:15)
[2018-09-25] MEDS: CHLORHEXIDINE GLUCONATE 15 ML UDC MM SCH ×2 (09:15→20:43)
[2018-09-25] MEDS: ZINC SULFATE 220 MG CAPSULE GT SCH (09:15)
[2018-09-25] MEDS: HYDROGEN PEROXIDE 480 ML BOTTLE TP SCH ×2 (09:15→20:44)
[2018-09-25] MEDS: NEOMY SULF/BACITRAC ZN/POLY 15 GM TUBE TP SCH ×2 (09:45→20:44)
[2018-09-25] MEDS: COD LIVER OIL/ZINC OXIDE 120 GM TUBE TP SCH ×2 (09:45→20:44)
[2018-09-25] MEDS: THERAHONEY GEL 1.5 OZ TUBE TP SCH ×2 (09:45→20:44)
[2018-09-25] MEDS: NYSTATIN/TRIAMCIN CREAM 15 GM TUBE TP SCH ×2 (09:45→20:44)
[2018-09-26] VITALS (7 sets, daily range): BP systolic 97–136; BP diastolic 51–70
[2018-09-26] MEDS: ALBUTEROL FS 2.5 MG/3 ML VIAL.NEB NEB SCH ×4 (01:16→20:08)
[2018-09-26] MEDS: IPRATROPIUM NEB FS 0.5 MG/2.5 ML AMPUL.NEB IH SCH ×4 (01:16→20:08)
[2018-09-26] MEDS: GLUCERNA 1.2 1,000 ML BOTTLE GT PRN (04:23)
[2018-09-26] MEDS: LEVOTHYROXINE SODIUM 88 MCG TABLET GT SCH (05:39)
[2018-09-26] MEDS: METOCLOPRAMIDE HCL 10 MG TABLET GT SCH ×4 (05:39→23:22)
[2018-09-26] MEDS: OMEPRAZOLE 20 MG CAPSULE.DR GT SCH (05:39)
[2018-09-26] MEDS: CARBOXYMETHYLCELLULOSE SODIUM 0.4 ML DROPERETTE EACHEYE SCH (09:07)
[2018-09-26] MEDS: ACIDOPHILUS/BULGARICUS 1 EACH TAB.CHEW GT SCH (09:07)
[2018-09-26] MEDS: PROSTAT (PYXIS) 30 ML UDC GT SCH ×3 (09:07→17:00)
[2018-09-26] MEDS: ASCORBIC ACID 500 MG TABLET GT SCH (09:07)
[2018-09-26] MEDS: LEVETIRACETAM SOL (5 ML) 100 MG/ML UDC GT SCH ×2 (09:07→20:36)
[2018-09-26] MEDS: ZINC SULFATE 220 MG CAPSULE GT SCH (09:07)
[2018-09-26] MEDS: MULTIVIT W/MINERALS 1 TAB TABLET GT SCH (09:07)
[2018-09-26] MEDS: NEOMY SULF/BACITRAC ZN/POLY 15 GM TUBE TP SCH (09:08)
[2018-09-26] MEDS: COD LIVER OIL/ZINC OXIDE 120 GM TUBE TP SCH ×2 (09:08→21:18)
[2018-09-26] MEDS: NYSTATIN/TRIAMCIN CREAM 15 GM TUBE TP SCH ×2 (09:08→21:18)
[2018-09-26] MEDS: THERAHONEY GEL 1.5 OZ TUBE TP SCH ×2 (09:08→21:18)
[2018-09-26] MEDS: MORPHINE SULFATE SOLN CONCENTRATED 20 MG/ML SL SCH ×2 (09:08→20:36)
[2018-09-26] MEDS: CHLORHEXIDINE GLUCONATE 15 ML UDC MM SCH ×2 (09:08→20:36)
[2018-09-26] MEDS: HYDROGEN PEROXIDE 480 ML BOTTLE TP SCH ×2 (09:08→21:18)
[2018-09-27] VITALS (8 sets, daily range): BP systolic 102–115; BP diastolic 50–61
[2018-09-27] MEDS: ALBUTEROL FS 2.5 MG/3 ML VIAL.NEB NEB SCH ×4 (01:09→20:03)
[2018-09-27] MEDS: IPRATROPIUM NEB FS 0.5 MG/2.5 ML AMPUL.NEB IH SCH ×4 (01:09→20:03)
[2018-09-27] MEDS: LEVOTHYROXINE SODIUM 88 MCG TABLET GT SCH (05:45)
[2018-09-27] MEDS: OMEPRAZOLE 20 MG CAPSULE.DR GT SCH (05:45)
[2018-09-27] MEDS: METOCLOPRAMIDE HCL 10 MG TABLET GT SCH ×4 (05:45→23:54)
[2018-09-27] MEDS: GLUCERNA 1.2 1,000 ML BOTTLE GT PRN (05:45)
[2018-09-27] MEDS: LEVETIRACETAM SOL (5 ML) 100 MG/ML UDC GT SCH ×2 (09:37→20:23)
[2018-09-27] MEDS: ACIDOPHILUS/BULGARICUS 1 EACH TAB.CHEW GT SCH (09:37)
[2018-09-27] MEDS: CARBOXYMETHYLCELLULOSE SODIUM 0.4 ML DROPERETTE EACHEYE SCH (09:37)
[2018-09-27] MEDS: MULTIVIT W/MINERALS 1 TAB TABLET GT SCH (09:37)
[2018-09-27] MEDS: PROSTAT (PYXIS) 30 ML UDC GT SCH ×3 (09:37→17:44)
[2018-09-27] MEDS: ASCORBIC ACID 500 MG TABLET GT SCH (09:37)
[2018-09-27] MEDS: ZINC SULFATE 220 MG CAPSULE GT SCH (09:38)
[2018-09-27] MEDS: COD LIVER OIL/ZINC OXIDE 120 GM TUBE TP SCH ×2 (09:38→20:24)
[2018-09-27] MEDS: HYDROGEN PEROXIDE 480 ML BOTTLE TP SCH ×2 (09:38→20:24)
[2018-09-27] MEDS: NYSTATIN/TRIAMCIN CREAM 15 GM TUBE TP SCH ×2 (09:38→20:24)
[2018-09-27] MEDS: THERAHONEY GEL 1.5 OZ TUBE TP SCH ×2 (09:38→20:24)
[2018-09-27] MEDS: CHLORHEXIDINE GLUCONATE 15 ML UDC MM SCH ×2 (09:38→20:23)
[2018-09-27] MEDS: MORPHINE SULFATE SOLN CONCENTRATED 20 MG/ML SL SCH ×2 (09:38→20:24)
[2018-09-28] VITALS (8 sets, daily range): BP systolic 102–113; BP diastolic 51–60
[2018-09-28] MEDS: ALBUTEROL FS 2.5 MG/3 ML VIAL.NEB NEB SCH ×4 (01:39→19:56)
[2018-09-28] MEDS: IPRATROPIUM NEB FS 0.5 MG/2.5 ML AMPUL.NEB IH SCH ×4 (01:39→19:56)
[2018-09-28] MEDS: LEVOTHYROXINE SODIUM 88 MCG TABLET GT SCH (05:24)
[2018-09-28] MEDS: METOCLOPRAMIDE HCL 10 MG TABLET GT SCH ×4 (05:24→23:34)
[2018-09-28] MEDS: GLUCERNA 1.2 1,000 ML BOTTLE GT PRN (05:24)
[2018-09-28] MEDS: OMEPRAZOLE 20 MG CAPSULE.DR GT SCH (05:24)
[2018-09-28] MEDS: MORPHINE SULFATE SOLN CONCENTRATED 20 MG/ML SL SCH ×2 (08:46→20:27)
[2018-09-28] MEDS: PROSTAT (PYXIS) 30 ML UDC GT SCH ×3 (08:46→17:21)
[2018-09-28] MEDS: CARBOXYMETHYLCELLULOSE SODIUM 0.4 ML DROPERETTE EACHEYE SCH (08:46)
[2018-09-28] MEDS: ACIDOPHILUS/BULGARICUS 1 EACH TAB.CHEW GT SCH (08:46)
[2018-09-28] MEDS: CHLORHEXIDINE GLUCONATE 15 ML UDC MM SCH ×2 (08:46→20:27)
[2018-09-28] MEDS: ZINC SULFATE 220 MG CAPSULE GT SCH (08:46)
[2018-09-28] MEDS: MULTIVIT W/MINERALS 1 TAB TABLET GT SCH (08:46)
[2018-09-28] MEDS: ASCORBIC ACID 500 MG TABLET GT SCH (08:46)
[2018-09-28] MEDS: LEVETIRACETAM SOL (5 ML) 100 MG/ML UDC GT SCH ×2 (08:46→20:27)
[2018-09-28] MEDS: THERAHONEY GEL 1.5 OZ TUBE TP SCH ×2 (09:20→20:28)
[2018-09-28] MEDS: COD LIVER OIL/ZINC OXIDE 120 GM TUBE TP SCH ×2 (09:20→20:28)
[2018-09-28] MEDS: HYDROGEN PEROXIDE 480 ML BOTTLE TP SCH ×2 (09:20→20:28)
[2018-09-28] MEDS: NYSTATIN/TRIAMCIN CREAM 15 GM TUBE TP SCH ×2 (09:20→20:28)
--- NOTE | 2018-09-28 15:00 | NUR ---
Seen and examined by Dr. Ross, no new order given.
[2018-09-29] VITALS (8 sets, daily range): BP systolic 95–115; BP diastolic 47–59
[2018-09-29] MEDS: ALBUTEROL FS 2.5 MG/3 ML VIAL.NEB NEB SCH ×4 (02:04→19:43)
[2018-09-29] MEDS: IPRATROPIUM NEB FS 0.5 MG/2.5 ML AMPUL.NEB IH SCH ×4 (02:05→19:43)
[2018-09-29] MEDS: GLUCERNA 1.2 1,000 ML BOTTLE GT PRN (05:30)
[2018-09-29] MEDS: METOCLOPRAMIDE HCL 10 MG TABLET GT SCH ×4 (05:30→23:43)
[2018-09-29] MEDS: LEVOTHYROXINE SODIUM 88 MCG TABLET GT SCH (05:30)
[2018-09-29] MEDS: OMEPRAZOLE 20 MG CAPSULE.DR GT SCH (05:30)
[2018-09-29] MEDS: MULTIVIT W/MINERALS 1 TAB TABLET GT SCH (08:27)
[2018-09-29] MEDS: ASCORBIC ACID 500 MG TABLET GT SCH (08:27)
[2018-09-29] MEDS: ACIDOPHILUS/BULGARICUS 1 EACH TAB.CHEW GT SCH (08:27)
[2018-09-29] MEDS: PROSTAT (PYXIS) 30 ML UDC GT SCH ×3 (08:27→17:14)
[2018-09-29] MEDS: LEVETIRACETAM SOL (5 ML) 100 MG/ML UDC GT SCH ×2 (08:27→20:14)
[2018-09-29] MEDS: CHLORHEXIDINE GLUCONATE 15 ML UDC MM SCH ×2 (08:27→20:14)
[2018-09-29] MEDS: CARBOXYMETHYLCELLULOSE SODIUM 0.4 ML DROPERETTE EACHEYE SCH (08:27)
[2018-09-29] MEDS: ZINC SULFATE 220 MG CAPSULE GT SCH (08:27)
[2018-09-29] MEDS: MORPHINE SULFATE SOLN CONCENTRATED 20 MG/ML SL SCH ×2 (08:28→20:14)
[2018-09-29] MEDS: COD LIVER OIL/ZINC OXIDE 120 GM TUBE TP SCH ×2 (09:10→20:15)
[2018-09-29] MEDS: THERAHONEY GEL 1.5 OZ TUBE TP SCH ×2 (09:10→20:15)
[2018-09-29] MEDS: NYSTATIN/TRIAMCIN CREAM 15 GM TUBE TP SCH ×2 (09:10→20:15)
[2018-09-29] MEDS: HYDROGEN PEROXIDE 480 ML BOTTLE TP SCH ×2 (09:10→20:15)
[2018-09-30] VITALS (8 sets, daily range): BP systolic 100–120; BP diastolic 42–58
[2018-09-30] MEDS: ALBUTEROL FS 2.5 MG/3 ML VIAL.NEB NEB SCH ×4 (01:44→19:37)
[2018-09-30] MEDS: IPRATROPIUM NEB FS 0.5 MG/2.5 ML AMPUL.NEB IH SCH ×4 (01:44→19:37)
[2018-09-30] MEDS: OMEPRAZOLE 20 MG CAPSULE.DR GT SCH (05:32)
[2018-09-30] MEDS: LEVOTHYROXINE SODIUM 88 MCG TABLET GT SCH (05:32)
[2018-09-30] MEDS: METOCLOPRAMIDE HCL 10 MG TABLET GT SCH ×3 (05:32→17:31)
[2018-09-30] MEDS: GLUCERNA 1.2 1,000 ML BOTTLE GT PRN (05:32)
[2018-09-30] MEDS: CHLORHEXIDINE GLUCONATE 15 ML UDC MM SCH ×2 (08:45→21:23)
[2018-09-30] MEDS: MULTIVIT W/MINERALS 1 TAB TABLET GT SCH (08:45)
[2018-09-30] MEDS: ZINC SULFATE 220 MG CAPSULE GT SCH (08:45)
[2018-09-30] MEDS: LEVETIRACETAM SOL (5 ML) 100 MG/ML UDC GT SCH ×2 (08:45→21:23)
[2018-09-30] MEDS: ASCORBIC ACID 500 MG TABLET GT SCH (08:45)
[2018-09-30] MEDS: PROSTAT (PYXIS) 30 ML UDC GT SCH ×3 (08:45→17:31)
[2018-09-30] MEDS: MORPHINE SULFATE SOLN CONCENTRATED 20 MG/ML SL SCH ×2 (08:45→21:23)
[2018-09-30] MEDS: ACIDOPHILUS/BULGARICUS 1 EACH TAB.CHEW GT SCH (08:45)
[2018-09-30] MEDS: CARBOXYMETHYLCELLULOSE SODIUM 0.4 ML DROPERETTE EACHEYE SCH (08:45)
[2018-09-30] MEDS: COD LIVER OIL/ZINC OXIDE 120 GM TUBE TP SCH ×2 (09:20→21:23)
[2018-09-30] MEDS: NYSTATIN/TRIAMCIN CREAM 15 GM TUBE TP SCH ×3 (09:20→21:24)
[2018-09-30] MEDS: HYDROGEN PEROXIDE 480 ML BOTTLE TP SCH ×2 (09:20→21:23)
[2018-09-30] MEDS: THERAHONEY GEL 1.5 OZ TUBE TP SCH (21:24)
[2018-10-01] VITALS (8 sets, daily range): BP systolic 100–120; BP diastolic 43–67
[2018-10-01] MEDS: METOCLOPRAMIDE HCL 10 MG TABLET GT SCH ×5 (00:05→23:41)
[2018-10-01] MEDS: GLUCERNA 1.2 1,000 ML BOTTLE GT PRN (00:19)
[2018-10-01] MEDS: ALBUTEROL FS 2.5 MG/3 ML VIAL.NEB NEB SCH ×4 (01:23→19:50)
[2018-10-01] MEDS: IPRATROPIUM NEB FS 0.5 MG/2.5 ML AMPUL.NEB IH SCH ×4 (01:23→19:50)
[2018-10-01] MEDS: OMEPRAZOLE 20 MG CAPSULE.DR GT SCH (06:12)
[2018-10-01] MEDS: LEVOTHYROXINE SODIUM 88 MCG TABLET GT SCH (06:12)
[2018-10-01] MEDS: MORPHINE SULFATE SOLN CONCENTRATED 20 MG/ML SL SCH ×2 (08:31→20:40)
[2018-10-01] MEDS: LEVETIRACETAM SOL (5 ML) 100 MG/ML UDC GT SCH ×2 (08:33→20:40)
[2018-10-01] MEDS: PROSTAT (PYXIS) 30 ML UDC GT SCH ×3 (08:33→17:24)
[2018-10-01] MEDS: MULTIVIT W/MINERALS 1 TAB TABLET GT SCH (08:33)
[2018-10-01] MEDS: CHLORHEXIDINE GLUCONATE 15 ML UDC MM SCH ×2 (08:33→20:40)
[2018-10-01] MEDS: ACIDOPHILUS/BULGARICUS 1 EACH TAB.CHEW GT SCH (08:33)
[2018-10-01] MEDS: ZINC SULFATE 220 MG CAPSULE GT SCH (08:33)
[2018-10-01] MEDS: CARBOXYMETHYLCELLULOSE SODIUM 0.4 ML DROPERETTE EACHEYE SCH (08:33)
[2018-10-01] MEDS: ASCORBIC ACID 500 MG TABLET GT SCH (08:33)
[2018-10-01] MEDS: NYSTATIN/TRIAMCIN CREAM 15 GM TUBE TP SCH ×4 (09:47→21:19)
[2018-10-01] MEDS: COD LIVER OIL/ZINC OXIDE 120 GM TUBE TP SCH ×2 (09:47→21:19)
[2018-10-01] MEDS: BACI/NEOM/POLY B OINT PKT 1 UDPKT PACKET TP SCH ×2 (09:47→21:19)
[2018-10-01] MEDS: HYDROGEN PEROXIDE 480 ML BOTTLE TP SCH ×2 (09:47→21:19)
[2018-10-01] MEDS: THERAHONEY GEL 1.5 OZ TUBE TP SCH ×2 (09:47→21:19)
[2018-10-02] VITALS (7 sets, daily range): BP systolic 95–127; BP diastolic 40–62
[2018-10-02] MEDS: ALBUTEROL FS 2.5 MG/3 ML VIAL.NEB NEB SCH ×4 (01:58→20:10)
[2018-10-02] MEDS: IPRATROPIUM NEB FS 0.5 MG/2.5 ML AMPUL.NEB IH SCH ×4 (01:58→20:10)
[2018-10-02] MEDS: OMEPRAZOLE 20 MG CAPSULE.DR GT SCH (05:43)
[2018-10-02] MEDS: LEVOTHYROXINE SODIUM 88 MCG TABLET GT SCH (05:43)
[2018-10-02] MEDS: METOCLOPRAMIDE HCL 10 MG TABLET GT SCH ×4 (05:43→23:40)
[2018-10-02] MEDS: BACI/NEOM/POLY B OINT PKT 1 UDPKT PACKET TP SCH ×2 (09:00→21:20)
[2018-10-02] MEDS: COD LIVER OIL/ZINC OXIDE 120 GM TUBE TP SCH ×2 (09:00→20:44)
[2018-10-02] MEDS: THERAHONEY GEL 1.5 OZ TUBE TP SCH ×2 (09:00→21:21)
[2018-10-02] MEDS: NYSTATIN/TRIAMCIN CREAM 15 GM TUBE TP SCH ×4 (09:00→21:20)
[2018-10-02] MEDS: CARBOXYMETHYLCELLULOSE SODIUM 0.4 ML DROPERETTE EACHEYE SCH (09:07)
[2018-10-02] MEDS: ZINC SULFATE 220 MG CAPSULE GT SCH (09:07)
[2018-10-02] MEDS: CHLORHEXIDINE GLUCONATE 15 ML UDC MM SCH ×2 (09:07→20:44)
[2018-10-02] MEDS: MULTIVIT W/MINERALS 1 TAB TABLET GT SCH (09:07)
[2018-10-02] MEDS: ASCORBIC ACID 500 MG TABLET GT SCH (09:07)
[2018-10-02] MEDS: LEVETIRACETAM SOL (5 ML) 100 MG/ML UDC GT SCH ×2 (09:07→20:44)
[2018-10-02] MEDS: PROSTAT (PYXIS) 30 ML UDC GT SCH ×3 (09:07→16:43)
[2018-10-02] MEDS: ACIDOPHILUS/BULGARICUS 1 EACH TAB.CHEW GT SCH (09:07)
[2018-10-02] MEDS: HYDROGEN PEROXIDE 480 ML BOTTLE TP SCH ×2 (09:08→20:44)
[2018-10-02] MEDS: MORPHINE SULFATE SOLN CONCENTRATED 20 MG/ML SL SCH ×2 (09:13→20:44)
--- NOTE | 2018-10-02 09:20 | NUR ---
Seen and examined by Dr. Monet, professor of criminal justice. NNO given at this time.
[2018-10-03] VITALS (9 sets, daily range): BP systolic 105–127; BP diastolic 52–66
[2018-10-03] MEDS: GLUCERNA 1.2 1,000 ML BOTTLE GT PRN ×2 (00:44→23:35)
[2018-10-03] MEDS: IPRATROPIUM NEB FS 0.5 MG/2.5 ML AMPUL.NEB IH SCH ×4 (02:12→19:55)
[2018-10-03] MEDS: ALBUTEROL FS 2.5 MG/3 ML VIAL.NEB NEB SCH ×4 (02:12→19:55)
[2018-10-03] MEDS: OMEPRAZOLE 20 MG CAPSULE.DR GT SCH (05:24)
[2018-10-03] MEDS: LEVOTHYROXINE SODIUM 88 MCG TABLET GT SCH (05:24)
[2018-10-03] MEDS: METOCLOPRAMIDE HCL 10 MG TABLET GT SCH ×4 (05:24→23:33)
[2018-10-03] MEDS: CARBOXYMETHYLCELLULOSE SODIUM 0.4 ML DROPERETTE EACHEYE SCH (08:22)
[2018-10-03] MEDS: LEVETIRACETAM SOL (5 ML) 100 MG/ML UDC GT SCH ×2 (08:22→20:26)
[2018-10-03] MEDS: ZINC SULFATE 220 MG CAPSULE GT SCH (08:23)
[2018-10-03] MEDS: COD LIVER OIL/ZINC OXIDE 120 GM TUBE TP SCH ×2 (08:23→20:26)
[2018-10-03] MEDS: ACIDOPHILUS/BULGARICUS 1 EACH TAB.CHEW GT SCH (08:23)
[2018-10-03] MEDS: PROSTAT (PYXIS) 30 ML UDC GT SCH ×3 (08:23→17:03)
[2018-10-03] MEDS: MORPHINE SULFATE SOLN CONCENTRATED 20 MG/ML SL SCH ×2 (08:23→20:26)
[2018-10-03] MEDS: MULTIVIT W/MINERALS 1 TAB TABLET GT SCH (08:23)
[2018-10-03] MEDS: ASCORBIC ACID 500 MG TABLET GT SCH (08:23)
[2018-10-03] MEDS: CHLORHEXIDINE GLUCONATE 15 ML UDC MM SCH ×2 (08:23→20:26)
[2018-10-03] MEDS: HYDROGEN PEROXIDE 480 ML BOTTLE TP SCH ×2 (08:24→20:27)
[2018-10-03] MEDS: NYSTATIN/TRIAMCIN CREAM 15 GM TUBE TP SCH ×4 (08:24→21:07)
[2018-10-03] MEDS: BACI/NEOM/POLY B OINT PKT 1 UDPKT PACKET TP SCH ×2 (08:28→21:07)
[2018-10-03] MEDS: THERAHONEY GEL 1.5 OZ TUBE TP SCH ×2 (08:29→21:07)
--- NOTE | 2018-10-03 15:30 | NUR ---
Seen and examined by Dr. Ross, made aware of culture obtain from the blister, NNO given, he said Staph Coagulase negative is the normal sophie of the skin, but to wait for C and S result. Endorsed.
--- NOTE | 2018-10-03 18:00 | NUR ---
F/C OUT WITH BALLOON DEFLATED, INSERTED A NEW F/C 16FR, TOLERATED WELL, DRAINING YELLOW CLEAR URINE.
[2018-10-04] VITALS (8 sets, daily range): BP systolic 102–176; BP diastolic 54–75
[2018-10-04] MEDS: ALBUTEROL FS 2.5 MG/3 ML VIAL.NEB NEB SCH ×4 (01:36→19:31)
[2018-10-04] MEDS: IPRATROPIUM NEB FS 0.5 MG/2.5 ML AMPUL.NEB IH SCH ×4 (01:36→19:31)
[2018-10-04] MEDS: LEVOTHYROXINE SODIUM 88 MCG TABLET GT SCH (05:30)
[2018-10-04] MEDS: OMEPRAZOLE 20 MG CAPSULE.DR GT SCH (05:30)
[2018-10-04] MEDS: METOCLOPRAMIDE HCL 10 MG TABLET GT SCH ×3 (05:30→17:05)
[2018-10-04] MEDS: CARBOXYMETHYLCELLULOSE SODIUM 0.4 ML DROPERETTE EACHEYE SCH (08:52)
[2018-10-04] MEDS: ACIDOPHILUS/BULGARICUS 1 EACH TAB.CHEW GT SCH (08:53)
[2018-10-04] MEDS: MORPHINE SULFATE SOLN CONCENTRATED 20 MG/ML SL SCH ×2 (08:53→21:37)
[2018-10-04] MEDS: ZINC SULFATE 220 MG CAPSULE GT SCH (08:53)
[2018-10-04] MEDS: ASCORBIC ACID 500 MG TABLET GT SCH (08:53)
[2018-10-04] MEDS: LEVETIRACETAM SOL (5 ML) 100 MG/ML UDC GT SCH ×2 (08:53→21:37)
[2018-10-04] MEDS: PROSTAT (PYXIS) 30 ML UDC GT SCH ×3 (08:53→17:05)
[2018-10-04] MEDS: MULTIVIT W/MINERALS 1 TAB TABLET GT SCH (08:53)
[2018-10-04] MEDS: CHLORHEXIDINE GLUCONATE 15 ML UDC MM SCH ×2 (08:53→21:37)
[2018-10-04] MEDS: HYDROGEN PEROXIDE 480 ML BOTTLE TP SCH ×2 (09:00→21:38)
[2018-10-04] MEDS: COD LIVER OIL/ZINC OXIDE 120 GM TUBE TP SCH ×2 (09:30→21:38)
[2018-10-04] MEDS: NYSTATIN/TRIAMCIN CREAM 15 GM TUBE TP SCH ×4 (09:30→21:38)
[2018-10-04] MEDS: THERAHONEY GEL 1.5 OZ TUBE TP SCH ×2 (09:30→21:38)
[2018-10-04] MEDS: BACI/NEOM/POLY B OINT PKT 1 UDPKT PACKET TP SCH ×2 (09:30→21:38)
[2018-10-04] MEDS: GLUCERNA 1.2 1,000 ML BOTTLE GT PRN (18:38)
--- NOTE | 2018-10-04 19:30 | NUR ---
Seen and examined by Becca hatfield.
[2018-10-05] VITALS (7 sets, daily range): BP systolic 112–136; BP diastolic 51–61
[2018-10-05] MEDS: METOCLOPRAMIDE HCL 10 MG TABLET GT SCH ×5 (00:40→23:36)
[2018-10-05] MEDS: ALBUTEROL FS 2.5 MG/3 ML VIAL.NEB NEB SCH ×4 (00:54→19:03)
[2018-10-05] MEDS: IPRATROPIUM NEB FS 0.5 MG/2.5 ML AMPUL.NEB IH SCH ×4 (00:54→19:03)
[2018-10-05] MEDS: LEVOTHYROXINE SODIUM 88 MCG TABLET GT SCH (05:09)
[2018-10-05] MEDS: OMEPRAZOLE 20 MG CAPSULE.DR GT SCH (05:09)
[2018-10-05] MEDS: ACIDOPHILUS/BULGARICUS 1 EACH TAB.CHEW GT SCH (09:21)
[2018-10-05] MEDS: MORPHINE SULFATE SOLN CONCENTRATED 20 MG/ML SL SCH ×2 (09:21→21:32)
[2018-10-05] MEDS: CHLORHEXIDINE GLUCONATE 15 ML UDC MM SCH ×2 (09:21→21:31)
[2018-10-05] MEDS: ASCORBIC ACID 500 MG TABLET GT SCH (09:21)
[2018-10-05] MEDS: HYDROGEN PEROXIDE 480 ML BOTTLE TP SCH ×2 (09:21→21:31)
[2018-10-05] MEDS: CARBOXYMETHYLCELLULOSE SODIUM 0.4 ML DROPERETTE EACHEYE SCH (09:21)
[2018-10-05] MEDS: ZINC SULFATE 220 MG CAPSULE GT SCH (09:21)
[2018-10-05] MEDS: LEVETIRACETAM SOL (5 ML) 100 MG/ML UDC GT SCH ×2 (09:21→21:31)
[2018-10-05] MEDS: MULTIVIT W/MINERALS 1 TAB TABLET GT SCH (09:21)
[2018-10-05] MEDS: COD LIVER OIL/ZINC OXIDE 120 GM TUBE TP SCH ×2 (09:21→21:31)
[2018-10-05] MEDS: PROSTAT (PYXIS) 30 ML UDC GT SCH ×3 (09:21→17:35)
[2018-10-05] MEDS: NYSTATIN/TRIAMCIN CREAM 15 GM TUBE TP SCH ×4 (09:21→21:31)
[2018-10-05] MEDS: THERAHONEY GEL 1.5 OZ TUBE TP SCH ×2 (09:22→21:31)
[2018-10-05] MEDS: BACI/NEOM/POLY B OINT PKT 1 UDPKT PACKET TP SCH (09:22)
--- NOTE | 2018-10-05 17:15 | NUR ---
RT NOTE: RT NOTE: RECEIVED PT ON 28% COOL AEROSOL. NO RESPIRATORY DISTRESS NOTED. TRACH CHECKED SECURE AND PATENT. SXD AND LAVAGED PT Q ROUND AND NEEDED. TXS GIVEN ORDERED WITH NO ADVERSE REACTIONS NOTED. TRACH CARE DONE. SPARE NORMA AND RUI HORNER @ BEDSIDE. Addendum: 10/05/18 at 1715 by BENJAMÍN MORTON RT Amended: Links added.
[2018-10-05] MEDS: GLUCERNA 1.2 1,000 ML BOTTLE GT PRN (18:34)
--- NOTE | 2018-10-05 19:10 | NUR ---
TERESA Crum reviewed culture result (fluid from blister) with order for topical treatment to the area. Endorsed.
[2018-10-05] MEDS: MUPIROCIN 2% CREAM 22 GM TUBE TP SCH (21:30)
[2018-10-06] VITALS (9 sets, daily range): BP systolic 112–133; BP diastolic 51–66
[2018-10-06] MEDS: IPRATROPIUM NEB FS 0.5 MG/2.5 ML AMPUL.NEB IH SCH ×4 (00:36→19:48)
[2018-10-06] MEDS: ALBUTEROL FS 2.5 MG/3 ML VIAL.NEB NEB SCH ×4 (00:36→19:48)
[2018-10-06] MEDS: METOCLOPRAMIDE HCL 10 MG TABLET GT SCH ×4 (05:43→23:53)
[2018-10-06] MEDS: LEVOTHYROXINE SODIUM 88 MCG TABLET GT SCH (05:43)
[2018-10-06] MEDS: OMEPRAZOLE 20 MG CAPSULE.DR GT SCH (05:44)
[2018-10-06] MEDS: HYDROGEN PEROXIDE 480 ML BOTTLE TP SCH ×2 (07:26→21:37)
--- NOTE | 2018-10-06 09:30 | NUR ---
Pt was noted with buttocks excoriation. Received order to apply Desitin cream q shift and PRN for 14 days. Notified pt's daughter.
[2018-10-06] MEDS: CARBOXYMETHYLCELLULOSE SODIUM 0.4 ML DROPERETTE EACHEYE SCH (09:55)
[2018-10-06] MEDS: LEVETIRACETAM SOL (5 ML) 100 MG/ML UDC GT SCH ×2 (09:55→21:12)
[2018-10-06] MEDS: ACIDOPHILUS/BULGARICUS 1 EACH TAB.CHEW GT SCH (09:56)
[2018-10-06] MEDS: MULTIVIT W/MINERALS 1 TAB TABLET GT SCH (09:56)
[2018-10-06] MEDS: MORPHINE SULFATE SOLN CONCENTRATED 20 MG/ML SL SCH ×2 (09:56→21:12)
[2018-10-06] MEDS: PROSTAT (PYXIS) 30 ML UDC GT SCH ×3 (09:56→17:06)
[2018-10-06] MEDS: ASCORBIC ACID 500 MG TABLET GT SCH (09:56)
[2018-10-06] MEDS: MUPIROCIN 2% CREAM 22 GM TUBE TP SCH ×2 (09:56→21:36)
[2018-10-06] MEDS: ZINC SULFATE 220 MG CAPSULE GT SCH (09:56)
[2018-10-06] MEDS: CHLORHEXIDINE GLUCONATE 15 ML UDC MM SCH ×2 (09:56→21:12)
[2018-10-06] MEDS: COD LIVER OIL/ZINC OXIDE 120 GM TUBE TP SCH ×3 (10:30→21:37)
[2018-10-06] MEDS: THERAHONEY GEL 1.5 OZ TUBE TP SCH ×2 (10:30→21:37)
[2018-10-06] MEDS: NYSTATIN/TRIAMCIN CREAM 15 GM TUBE TP SCH ×4 (10:30→21:37)
--- NOTE | 2018-10-06 16:03 | NUR ---
RT NOTE: RECEIVED PT ON 28% COOL AEROSOL. NO RESPIRATORY DISTRESS NOTED. TRACH CHECKED SECURE AND PATENT. SXD AND LAVAGED PT Q ROUND AND NEEDED. TXS GIVEN ORDERED WITH NO ADVERSE REACTIONS NOTED. TRACH CARE DONE. SPARE TRACH AND AMBU BAG @ BEDSIDE.
[2018-10-06] MEDS ORDERED: ZINC OXIDE 30 GM TUBE TP SCH (21:00)
[2018-10-07] VITALS (7 sets, daily range): BP systolic 104–129; BP diastolic 53–69
[2018-10-07] MEDS: ALBUTEROL FS 2.5 MG/3 ML VIAL.NEB NEB SCH ×4 (01:33→19:10)
[2018-10-07] MEDS: IPRATROPIUM NEB FS 0.5 MG/2.5 ML AMPUL.NEB IH SCH ×4 (01:33→19:10)
[2018-10-07] MEDS: METOCLOPRAMIDE HCL 10 MG TABLET GT SCH ×3 (05:30→17:14)
[2018-10-07] MEDS: LEVOTHYROXINE SODIUM 88 MCG TABLET GT SCH (05:30)
[2018-10-07] MEDS: OMEPRAZOLE 20 MG CAPSULE.DR GT SCH (05:30)
[2018-10-07] MEDS: HYDROGEN PEROXIDE 480 ML BOTTLE TP SCH ×2 (09:00→20:28)
[2018-10-07] MEDS: MULTIVIT W/MINERALS 1 TAB TABLET GT SCH (09:25)
[2018-10-07] MEDS: LEVETIRACETAM SOL (5 ML) 100 MG/ML UDC GT SCH ×2 (09:25→20:26)
[2018-10-07] MEDS: CHLORHEXIDINE GLUCONATE 15 ML UDC MM SCH ×2 (09:25→20:26)
[2018-10-07] MEDS: MUPIROCIN 2% CREAM 22 GM TUBE TP SCH ×2 (09:25→20:27)
[2018-10-07] MEDS: CARBOXYMETHYLCELLULOSE SODIUM 0.4 ML DROPERETTE EACHEYE SCH (09:25)
[2018-10-07] MEDS: COD LIVER OIL/ZINC OXIDE 120 GM TUBE TP SCH ×4 (09:25→20:27)
[2018-10-07] MEDS: MORPHINE SULFATE SOLN CONCENTRATED 20 MG/ML SL SCH ×2 (09:25→20:27)
[2018-10-07] MEDS: PROSTAT (PYXIS) 30 ML UDC GT SCH ×3 (09:25→17:14)
[2018-10-07] MEDS: ACIDOPHILUS/BULGARICUS 1 EACH TAB.CHEW GT SCH (09:25)
[2018-10-07] MEDS: ASCORBIC ACID 500 MG TABLET GT SCH (09:25)
[2018-10-07] MEDS: ZINC SULFATE 220 MG CAPSULE GT SCH (09:25)
[2018-10-07] MEDS: NYSTATIN/TRIAMCIN CREAM 15 GM TUBE TP SCH ×4 (09:26→20:28)
[2018-10-07] MEDS: THERAHONEY GEL 1.5 OZ TUBE TP SCH ×2 (09:26→20:28)
[2018-10-07] MEDS: GLUCERNA 1.2 1,000 ML BOTTLE GT PRN (18:41)
[2018-10-08] VITALS (7 sets, daily range): BP systolic 102–189; BP diastolic 39–89
[2018-10-08] MEDS: METOCLOPRAMIDE HCL 10 MG TABLET GT SCH ×4 (00:22→17:08)
[2018-10-08] MEDS: ALBUTEROL FS 2.5 MG/3 ML VIAL.NEB NEB SCH ×4 (01:06→19:38)
[2018-10-08] MEDS: IPRATROPIUM NEB FS 0.5 MG/2.5 ML AMPUL.NEB IH SCH ×4 (01:06→19:38)
[2018-10-08] MEDS: LEVOTHYROXINE SODIUM 88 MCG TABLET GT SCH (05:37)
[2018-10-08] MEDS: OMEPRAZOLE 20 MG CAPSULE.DR GT SCH (05:38)
[2018-10-08] MEDS: MULTIVIT W/MINERALS 1 TAB TABLET GT SCH (08:34)
[2018-10-08] MEDS: ZINC SULFATE 220 MG CAPSULE GT SCH (08:34)
[2018-10-08] MEDS: ACIDOPHILUS/BULGARICUS 1 EACH TAB.CHEW GT SCH (08:34)
[2018-10-08] MEDS: PROSTAT (PYXIS) 30 ML UDC GT SCH ×3 (08:34→17:08)
[2018-10-08] MEDS: LEVETIRACETAM SOL (5 ML) 100 MG/ML UDC GT SCH ×2 (08:34→21:06)
[2018-10-08] MEDS: CHLORHEXIDINE GLUCONATE 15 ML UDC MM SCH ×2 (08:34→21:06)
[2018-10-08] MEDS: ASCORBIC ACID 500 MG TABLET GT SCH (08:34)
[2018-10-08] MEDS: CARBOXYMETHYLCELLULOSE SODIUM 0.4 ML DROPERETTE EACHEYE SCH (08:34)
[2018-10-08] MEDS: MORPHINE SULFATE SOLN CONCENTRATED 20 MG/ML SL SCH ×2 (08:35→21:07)
[2018-10-08] MEDS: THERAHONEY GEL 1.5 OZ TUBE TP SCH ×2 (09:00→21:16)
[2018-10-08] MEDS: MUPIROCIN 2% CREAM 22 GM TUBE TP SCH ×2 (09:00→21:07)
[2018-10-08] MEDS: COD LIVER OIL/ZINC OXIDE 120 GM TUBE TP SCH ×4 (09:00→21:16)
[2018-10-08] MEDS: NYSTATIN/TRIAMCIN CREAM 15 GM TUBE TP SCH ×4 (09:00→21:16)
[2018-10-08] MEDS: HYDROGEN PEROXIDE 480 ML BOTTLE TP SCH ×2 (09:00→21:00)
[2018-10-08] MEDS: GLUCERNA 1.2 1,000 ML BOTTLE GT PRN (17:04)
[2018-10-09] VITALS (7 sets, daily range): BP systolic 102–122; BP diastolic 49–70
[2018-10-09] MEDS: IPRATROPIUM NEB FS 0.5 MG/2.5 ML AMPUL.NEB IH SCH ×4 (01:36→20:17)
[2018-10-09] MEDS: ALBUTEROL FS 2.5 MG/3 ML VIAL.NEB NEB SCH ×4 (01:36→20:17)
[2018-10-09] MEDS: METOCLOPRAMIDE HCL 10 MG TABLET GT SCH ×4 (06:09→18:41)
[2018-10-09] MEDS: LEVOTHYROXINE SODIUM 88 MCG TABLET GT SCH (06:09)
[2018-10-09] MEDS: OMEPRAZOLE 20 MG CAPSULE.DR GT SCH (06:09)
[2018-10-09] MEDS: MUPIROCIN 2% CREAM 22 GM TUBE TP SCH ×2 (09:00→20:16)
[2018-10-09] MEDS: THERAHONEY GEL 1.5 OZ TUBE TP SCH ×2 (09:00→20:17)
[2018-10-09] MEDS: MULTIVIT W/MINERALS 1 TAB TABLET GT SCH (09:51)
[2018-10-09] MEDS: LEVETIRACETAM SOL (5 ML) 100 MG/ML UDC GT SCH ×2 (09:51→20:16)
[2018-10-09] MEDS: PROSTAT (PYXIS) 30 ML UDC GT SCH ×3 (09:51→17:00)
[2018-10-09] MEDS: ACIDOPHILUS/BULGARICUS 1 EACH TAB.CHEW GT SCH (09:51)
[2018-10-09] MEDS: ZINC SULFATE 220 MG CAPSULE GT SCH (09:51)
[2018-10-09] MEDS: ASCORBIC ACID 500 MG TABLET GT SCH (09:51)
[2018-10-09] MEDS: MORPHINE SULFATE SOLN CONCENTRATED 20 MG/ML SL SCH ×2 (09:51→20:16)
[2018-10-09] MEDS: CARBOXYMETHYLCELLULOSE SODIUM 0.4 ML DROPERETTE EACHEYE SCH (09:51)
[2018-10-09] MEDS: CHLORHEXIDINE GLUCONATE 15 ML UDC MM SCH ×2 (09:51→20:16)
[2018-10-09] MEDS: COD LIVER OIL/ZINC OXIDE 120 GM TUBE TP SCH ×4 (09:53→20:16)
[2018-10-09] MEDS: NYSTATIN/TRIAMCIN CREAM 15 GM TUBE TP SCH ×4 (09:53→20:17)
[2018-10-09] MEDS: HYDROGEN PEROXIDE 480 ML BOTTLE TP SCH ×2 (09:53→20:16)
[2018-10-09] MEDS: GLUCERNA 1.2 1,000 ML BOTTLE GT PRN (14:48)
[2018-10-10] VITALS (9 sets, daily range): BP systolic 93–122; BP diastolic 53–75
[2018-10-10] MEDS: METOCLOPRAMIDE HCL 10 MG TABLET GT SCH ×4 (00:31→18:00)
[2018-10-10] MEDS: ALBUTEROL FS 2.5 MG/3 ML VIAL.NEB NEB SCH ×4 (02:19→20:13)
[2018-10-10] MEDS: IPRATROPIUM NEB FS 0.5 MG/2.5 ML AMPUL.NEB IH SCH ×4 (02:19→20:13)
[2018-10-10] MEDS: OMEPRAZOLE 20 MG CAPSULE.DR GT SCH (05:13)
[2018-10-10] MEDS: LEVOTHYROXINE SODIUM 88 MCG TABLET GT SCH (05:13)
[2018-10-10] MEDS: CARBOXYMETHYLCELLULOSE SODIUM 0.4 ML DROPERETTE EACHEYE SCH (09:21)
[2018-10-10] MEDS: ZINC SULFATE 220 MG CAPSULE GT SCH (09:21)
[2018-10-10] MEDS: CHLORHEXIDINE GLUCONATE 15 ML UDC MM SCH ×2 (09:21→20:19)
[2018-10-10] MEDS: LEVETIRACETAM SOL (5 ML) 100 MG/ML UDC GT SCH ×2 (09:21→20:19)
[2018-10-10] MEDS: PROSTAT (PYXIS) 30 ML UDC GT SCH ×3 (09:21→17:00)
[2018-10-10] MEDS: ACIDOPHILUS/BULGARICUS 1 EACH TAB.CHEW GT SCH (09:21)
[2018-10-10] MEDS: ASCORBIC ACID 500 MG TABLET GT SCH (09:21)
[2018-10-10] MEDS: MORPHINE SULFATE SOLN CONCENTRATED 20 MG/ML SL SCH ×2 (09:21→20:19)
[2018-10-10] MEDS: MULTIVIT W/MINERALS 1 TAB TABLET GT SCH (09:21)
[2018-10-10] MEDS: MUPIROCIN 2% CREAM 22 GM TUBE TP SCH (09:22)
[2018-10-10] MEDS: COD LIVER OIL/ZINC OXIDE 120 GM TUBE TP SCH ×4 (09:22→20:20)
[2018-10-10] MEDS: NYSTATIN/TRIAMCIN CREAM 15 GM TUBE TP SCH ×4 (09:22→20:20)
[2018-10-10] MEDS: HYDROGEN PEROXIDE 480 ML BOTTLE TP SCH ×2 (09:22→20:20)
[2018-10-10] MEDS: THERAHONEY GEL 1.5 OZ TUBE TP SCH ×2 (09:23→20:20)
[2018-10-11] VITALS (8 sets, daily range): BP systolic 94–110; BP diastolic 42–58
[2018-10-11] MEDS: METOCLOPRAMIDE HCL 10 MG TABLET GT SCH ×5 (00:11→23:59)
[2018-10-11] MEDS: ALBUTEROL FS 2.5 MG/3 ML VIAL.NEB NEB SCH ×4 (01:25→19:10)
[2018-10-11] MEDS: IPRATROPIUM NEB FS 0.5 MG/2.5 ML AMPUL.NEB IH SCH ×4 (01:25→19:10)
[2018-10-11] MEDS: LEVOTHYROXINE SODIUM 88 MCG TABLET GT SCH (05:07)
[2018-10-11] MEDS: OMEPRAZOLE 20 MG CAPSULE.DR GT SCH (05:08)
[2018-10-11] MEDS: ZINC SULFATE 220 MG CAPSULE GT SCH (08:47)
[2018-10-11] MEDS: CARBOXYMETHYLCELLULOSE SODIUM 0.4 ML DROPERETTE EACHEYE SCH (08:47)
[2018-10-11] MEDS: CHLORHEXIDINE GLUCONATE 15 ML UDC MM SCH ×2 (08:47→21:22)
[2018-10-11] MEDS: ACIDOPHILUS/BULGARICUS 1 EACH TAB.CHEW GT SCH (08:47)
[2018-10-11] MEDS: PROSTAT (PYXIS) 30 ML UDC GT SCH ×3 (08:47→17:03)
[2018-10-11] MEDS: ASCORBIC ACID 500 MG TABLET GT SCH (08:47)
[2018-10-11] MEDS: LEVETIRACETAM SOL (5 ML) 100 MG/ML UDC GT SCH ×2 (08:47→20:38)
[2018-10-11] MEDS: MORPHINE SULFATE SOLN CONCENTRATED 20 MG/ML SL SCH ×2 (08:47→20:38)
[2018-10-11] MEDS: MULTIVIT W/MINERALS 1 TAB TABLET GT SCH (08:47)
[2018-10-11] MEDS: THERAHONEY GEL 1.5 OZ TUBE TP SCH ×2 (09:00→21:22)
[2018-10-11] MEDS: NYSTATIN/TRIAMCIN CREAM 15 GM TUBE TP SCH ×4 (09:00→21:22)
[2018-10-11] MEDS: HYDROGEN PEROXIDE 480 ML BOTTLE TP SCH ×2 (09:00→21:00)
[2018-10-11] MEDS: COD LIVER OIL/ZINC OXIDE 120 GM TUBE TP SCH ×4 (09:15→21:22)
[2018-10-11] MEDS: GLUCERNA 1.2 1,000 ML BOTTLE GT PRN (11:32)
[2018-10-12] VITALS (8 sets, daily range): BP systolic 99–114; BP diastolic 54–66
[2018-10-12] MEDS: ALBUTEROL FS 2.5 MG/3 ML VIAL.NEB NEB SCH ×4 (00:43→19:49)
[2018-10-12] MEDS: IPRATROPIUM NEB FS 0.5 MG/2.5 ML AMPUL.NEB IH SCH ×4 (00:43→19:49)
[2018-10-12] MEDS: GLUCERNA 1.2 1,000 ML BOTTLE GT PRN (05:45)
[2018-10-12] MEDS: LEVOTHYROXINE SODIUM 88 MCG TABLET GT SCH (05:45)
[2018-10-12] MEDS: OMEPRAZOLE 20 MG CAPSULE.DR GT SCH (05:45)
[2018-10-12] MEDS: METOCLOPRAMIDE HCL 10 MG TABLET GT SCH ×4 (05:45→23:28)
[2018-10-12] MEDS: ASCORBIC ACID 500 MG TABLET GT SCH (08:19)
[2018-10-12] MEDS: PROSTAT (PYXIS) 30 ML UDC GT SCH ×3 (08:19→17:36)
[2018-10-12] MEDS: MULTIVIT W/MINERALS 1 TAB TABLET GT SCH (08:19)
[2018-10-12] MEDS: ACIDOPHILUS/BULGARICUS 1 EACH TAB.CHEW GT SCH (08:19)
[2018-10-12] MEDS: CHLORHEXIDINE GLUCONATE 15 ML UDC MM SCH ×2 (08:19→20:58)
[2018-10-12] MEDS: CARBOXYMETHYLCELLULOSE SODIUM 0.4 ML DROPERETTE EACHEYE SCH (08:19)
[2018-10-12] MEDS: MORPHINE SULFATE SOLN CONCENTRATED 20 MG/ML SL SCH ×2 (08:19→20:56)
[2018-10-12] MEDS: ZINC SULFATE 220 MG CAPSULE GT SCH (08:19)
[2018-10-12] MEDS: LEVETIRACETAM SOL (5 ML) 100 MG/ML UDC GT SCH ×2 (08:19→20:56)
[2018-10-12] MEDS: HYDROGEN PEROXIDE 480 ML BOTTLE TP SCH ×2 (09:00→20:58)
[2018-10-12] MEDS: COD LIVER OIL/ZINC OXIDE 120 GM TUBE TP SCH ×4 (09:00→20:58)
[2018-10-12] MEDS: THERAHONEY GEL 1.5 OZ TUBE TP SCH ×2 (09:00→20:59)
[2018-10-12] MEDS: NYSTATIN/TRIAMCIN CREAM 15 GM TUBE TP SCH ×4 (09:00→20:59)
[2018-10-13] VITALS (7 sets, daily range): BP systolic 99–113; BP diastolic 48–65
[2018-10-13] MEDS: ALBUTEROL FS 2.5 MG/3 ML VIAL.NEB NEB SCH ×4 (01:42→19:41)
[2018-10-13] MEDS: IPRATROPIUM NEB FS 0.5 MG/2.5 ML AMPUL.NEB IH SCH ×4 (01:42→19:41)
[2018-10-13] MEDS: METOCLOPRAMIDE HCL 10 MG TABLET GT SCH ×3 (05:03→18:12)
[2018-10-13] MEDS: LEVOTHYROXINE SODIUM 88 MCG TABLET GT SCH (05:03)
[2018-10-13] MEDS: OMEPRAZOLE 20 MG CAPSULE.DR GT SCH (05:03)
[2018-10-13] MEDS: GLUCERNA 1.2 1,000 ML BOTTLE GT PRN (06:35)
[2018-10-13] MEDS: HYDROGEN PEROXIDE 480 ML BOTTLE TP SCH ×2 (08:58→21:06)
[2018-10-13] MEDS: LEVETIRACETAM SOL (5 ML) 100 MG/ML UDC GT SCH ×2 (09:53→21:06)
[2018-10-13] MEDS: CARBOXYMETHYLCELLULOSE SODIUM 0.4 ML DROPERETTE EACHEYE SCH (09:53)
[2018-10-13] MEDS: MULTIVIT W/MINERALS 1 TAB TABLET GT SCH (09:53)
[2018-10-13] MEDS: MORPHINE SULFATE SOLN CONCENTRATED 20 MG/ML SL SCH ×2 (09:53→21:06)
[2018-10-13] MEDS: ZINC SULFATE 220 MG CAPSULE GT SCH (09:53)
[2018-10-13] MEDS: ASCORBIC ACID 500 MG TABLET GT SCH (09:53)
[2018-10-13] MEDS: CHLORHEXIDINE GLUCONATE 15 ML UDC MM SCH ×2 (09:53→21:06)
[2018-10-13] MEDS: PROSTAT (PYXIS) 30 ML UDC GT SCH ×3 (09:53→17:00)
[2018-10-13] MEDS: ACIDOPHILUS/BULGARICUS 1 EACH TAB.CHEW GT SCH (09:53)
[2018-10-13] MEDS: COD LIVER OIL/ZINC OXIDE 120 GM TUBE TP SCH ×4 (10:30→21:06)
[2018-10-13] MEDS: NYSTATIN/TRIAMCIN CREAM 15 GM TUBE TP SCH ×4 (10:30→21:07)
[2018-10-13] MEDS: THERAHONEY GEL 1.5 OZ TUBE TP SCH ×2 (10:30→21:07)
[2018-10-14] VITALS (8 sets, daily range): BP systolic 101–133; BP diastolic 54–72
[2018-10-14] MEDS: IPRATROPIUM NEB FS 0.5 MG/2.5 ML AMPUL.NEB IH SCH ×4 (01:25→19:43)
[2018-10-14] MEDS: ALBUTEROL FS 2.5 MG/3 ML VIAL.NEB NEB SCH ×4 (01:25→19:43)
[2018-10-14] MEDS: METOCLOPRAMIDE HCL 10 MG TABLET GT SCH ×4 (06:23→18:12)
[2018-10-14] MEDS: LEVOTHYROXINE SODIUM 88 MCG TABLET GT SCH (06:23)
[2018-10-14] MEDS: OMEPRAZOLE 20 MG CAPSULE.DR GT SCH (06:23)
[2018-10-14] MEDS: GLUCERNA 1.2 1,000 ML BOTTLE GT PRN (06:30)
[2018-10-14] MEDS: CHLORHEXIDINE GLUCONATE 15 ML UDC MM SCH ×2 (09:00→21:59)
[2018-10-14] MEDS: ASCORBIC ACID 500 MG TABLET GT SCH (09:00)
[2018-10-14] MEDS: CARBOXYMETHYLCELLULOSE SODIUM 0.4 ML DROPERETTE EACHEYE SCH (09:00)
[2018-10-14] MEDS: LEVETIRACETAM SOL (5 ML) 100 MG/ML UDC GT SCH ×2 (09:00→21:59)
[2018-10-14] MEDS: PROSTAT (PYXIS) 30 ML UDC GT SCH ×3 (09:00→17:00)
[2018-10-14] MEDS: ZINC SULFATE 220 MG CAPSULE GT SCH (09:00)
[2018-10-14] MEDS: COD LIVER OIL/ZINC OXIDE 120 GM TUBE TP SCH ×4 (09:00→21:59)
[2018-10-14] MEDS: HYDROGEN PEROXIDE 480 ML BOTTLE TP SCH ×2 (09:00→21:55)
[2018-10-14] MEDS: THERAHONEY GEL 1.5 OZ TUBE TP SCH ×2 (09:00→21:00)
[2018-10-14] MEDS: NYSTATIN/TRIAMCIN CREAM 15 GM TUBE TP SCH ×4 (09:00→22:00)
[2018-10-14] MEDS: MULTIVIT W/MINERALS 1 TAB TABLET GT SCH (09:00)
[2018-10-14] MEDS: MORPHINE SULFATE SOLN CONCENTRATED 20 MG/ML SL SCH ×2 (09:00→21:59)
[2018-10-14] MEDS: ACIDOPHILUS/BULGARICUS 1 EACH TAB.CHEW GT SCH (09:00)
--- NOTE | 2018-10-14 13:00 | NUR ---
Seen and examined by Dr. Ross, no new order given.
[2018-10-15] VITALS (8 sets, daily range): BP systolic 103–112; BP diastolic 59–69
[2018-10-15] MEDS: METOCLOPRAMIDE HCL 10 MG TABLET GT SCH ×4 (00:45→18:00)
[2018-10-15] MEDS: ALBUTEROL FS 2.5 MG/3 ML VIAL.NEB NEB SCH ×4 (01:24→20:08)
[2018-10-15] MEDS: IPRATROPIUM NEB FS 0.5 MG/2.5 ML AMPUL.NEB IH SCH ×4 (01:24→20:08)
[2018-10-15] MEDS: OMEPRAZOLE 20 MG CAPSULE.DR GT SCH (06:13)
[2018-10-15] MEDS: LEVOTHYROXINE SODIUM 88 MCG TABLET GT SCH (06:13)
[2018-10-15] MEDS: MULTIVIT W/MINERALS 1 TAB TABLET GT SCH (08:49)
[2018-10-15] MEDS: ACIDOPHILUS/BULGARICUS 1 EACH TAB.CHEW GT SCH (08:49)
[2018-10-15] MEDS: PROSTAT (PYXIS) 30 ML UDC GT SCH ×3 (08:49→16:35)
[2018-10-15] MEDS: CARBOXYMETHYLCELLULOSE SODIUM 0.4 ML DROPERETTE EACHEYE SCH (08:49)
[2018-10-15] MEDS: LEVETIRACETAM SOL (5 ML) 100 MG/ML UDC GT SCH ×2 (08:49→20:09)
[2018-10-15] MEDS: ASCORBIC ACID 500 MG TABLET GT SCH (08:49)
[2018-10-15] MEDS: ZINC SULFATE 220 MG CAPSULE GT SCH (08:50)
[2018-10-15] MEDS: MORPHINE SULFATE SOLN CONCENTRATED 20 MG/ML SL SCH ×2 (08:50→20:09)
[2018-10-15] MEDS: CHLORHEXIDINE GLUCONATE 15 ML UDC MM SCH ×2 (08:50→21:40)
[2018-10-15] MEDS: NYSTATIN/TRIAMCIN CREAM 15 GM TUBE TP SCH ×4 (09:00→20:10)
[2018-10-15] MEDS: HYDROGEN PEROXIDE 480 ML BOTTLE TP SCH ×2 (09:00→20:09)
[2018-10-15] MEDS: THERAHONEY GEL 1.5 OZ TUBE TP SCH ×2 (09:00→20:10)
[2018-10-15] MEDS: COD LIVER OIL/ZINC OXIDE 120 GM TUBE TP SCH ×4 (09:00→20:09)
[2018-10-16] VITALS (7 sets, daily range): BP systolic 99–111; BP diastolic 50–61
[2018-10-16] MEDS: GLUCERNA 1.2 1,000 ML BOTTLE GT PRN (00:58)
[2018-10-16] MEDS: IPRATROPIUM NEB FS 0.5 MG/2.5 ML AMPUL.NEB IH SCH ×4 (01:37→19:27)
[2018-10-16] MEDS: ALBUTEROL FS 2.5 MG/3 ML VIAL.NEB NEB SCH ×4 (01:38→19:27)
[2018-10-16] MEDS: OMEPRAZOLE 20 MG CAPSULE.DR GT SCH (05:24)
[2018-10-16] MEDS: METOCLOPRAMIDE HCL 10 MG TABLET GT SCH ×4 (05:24→17:51)
[2018-10-16] MEDS: LEVOTHYROXINE SODIUM 88 MCG TABLET GT SCH (05:24)
[2018-10-16] MEDS: CARBOXYMETHYLCELLULOSE SODIUM 0.4 ML DROPERETTE EACHEYE SCH (08:41)
[2018-10-16] MEDS: MULTIVIT W/MINERALS 1 TAB TABLET GT SCH (08:41)
[2018-10-16] MEDS: ASCORBIC ACID 500 MG TABLET GT SCH (08:41)
[2018-10-16] MEDS: LEVETIRACETAM SOL (5 ML) 100 MG/ML UDC GT SCH ×2 (08:41→20:07)
[2018-10-16] MEDS: ZINC SULFATE 220 MG CAPSULE GT SCH (08:41)
[2018-10-16] MEDS: CHLORHEXIDINE GLUCONATE 15 ML UDC MM SCH ×2 (08:41→20:08)
[2018-10-16] MEDS: ACIDOPHILUS/BULGARICUS 1 EACH TAB.CHEW GT SCH (08:41)
[2018-10-16] MEDS: PROSTAT (PYXIS) 30 ML UDC GT SCH ×3 (08:41→17:51)
[2018-10-16] MEDS: COD LIVER OIL/ZINC OXIDE 120 GM TUBE TP SCH ×4 (08:42→20:09)
[2018-10-16] MEDS: THERAHONEY GEL 1.5 OZ TUBE TP SCH ×2 (08:42→20:09)
[2018-10-16] MEDS: NYSTATIN/TRIAMCIN CREAM 15 GM TUBE TP SCH ×4 (08:42→20:09)
[2018-10-16] MEDS: MORPHINE SULFATE SOLN CONCENTRATED 20 MG/ML SL SCH ×2 (08:42→20:08)
[2018-10-16] MEDS: HYDROGEN PEROXIDE 480 ML BOTTLE TP SCH ×2 (13:46→20:09)
[2018-10-17] VITALS (8 sets, daily range): BP systolic 104–112; BP diastolic 40–86
[2018-10-17] MEDS: METOCLOPRAMIDE HCL 10 MG TABLET GT SCH ×5 (00:08→23:48)
[2018-10-17] MEDS: GLUCERNA 1.2 1,000 ML BOTTLE GT PRN ×2 (00:41→20:37)
[2018-10-17] MEDS: ALBUTEROL FS 2.5 MG/3 ML VIAL.NEB NEB SCH ×4 (01:33→19:44)
[2018-10-17] MEDS: IPRATROPIUM NEB FS 0.5 MG/2.5 ML AMPUL.NEB IH SCH ×4 (01:33→19:44)
[2018-10-17] MEDS: OMEPRAZOLE 20 MG CAPSULE.DR GT SCH (05:12)
[2018-10-17] MEDS: LEVOTHYROXINE SODIUM 88 MCG TABLET GT SCH (05:12)
[2018-10-17] MEDS: HYDROGEN PEROXIDE 480 ML BOTTLE TP SCH ×2 (07:22→21:00)
[2018-10-17] MEDS: ASCORBIC ACID 500 MG TABLET GT SCH (09:25)
[2018-10-17] MEDS: PROSTAT (PYXIS) 30 ML UDC GT SCH ×3 (09:25→17:00)
[2018-10-17] MEDS: COD LIVER OIL/ZINC OXIDE 120 GM TUBE TP SCH ×4 (09:25→21:16)
[2018-10-17] MEDS: CARBOXYMETHYLCELLULOSE SODIUM 0.4 ML DROPERETTE EACHEYE SCH (09:25)
[2018-10-17] MEDS: MULTIVIT W/MINERALS 1 TAB TABLET GT SCH (09:25)
[2018-10-17] MEDS: ACIDOPHILUS/BULGARICUS 1 EACH TAB.CHEW GT SCH (09:25)
[2018-10-17] MEDS: LEVETIRACETAM SOL (5 ML) 100 MG/ML UDC GT SCH ×2 (09:25→20:36)
[2018-10-17] MEDS: CHLORHEXIDINE GLUCONATE 15 ML UDC MM SCH ×2 (09:25→21:16)
[2018-10-17] MEDS: ZINC SULFATE 220 MG CAPSULE GT SCH (09:25)
[2018-10-17] MEDS: MORPHINE SULFATE SOLN CONCENTRATED 20 MG/ML SL SCH ×2 (09:25→20:37)
[2018-10-17] MEDS: NYSTATIN/TRIAMCIN CREAM 15 GM TUBE TP SCH ×4 (09:26→21:17)
[2018-10-17] MEDS: THERAHONEY GEL 1.5 OZ TUBE TP SCH ×2 (09:26→21:17)
--- NOTE | 2018-10-17 17:43 | NUR ---
RT NOTE: RECEIVED PT ON 28% COOL AEROSOL. NO RESPIRATORY DISTRESS NOTED. TRACH CHECKED SECURE AND PATENT. SXD AND LAVAGED PT Q ROUND AND NEEDED. TXS GIVEN ORDERED WITH NO ADVERSE REACTIONS NOTED. TRACH CARE DONE. EMERGENCY EQUIPMENT @ BEDSIDE. Addendum: 10/17/18 at 1744 by BENJAMÍN MORTON RT Amended: Links added.
[2018-10-18] VITALS (8 sets, daily range): BP systolic 100–118; BP diastolic 53–78
[2018-10-18] MEDS: ALBUTEROL FS 2.5 MG/3 ML VIAL.NEB NEB SCH ×4 (01:14→19:20)
[2018-10-18] MEDS: IPRATROPIUM NEB FS 0.5 MG/2.5 ML AMPUL.NEB IH SCH ×4 (01:14→19:20)
[2018-10-18] MEDS: METOCLOPRAMIDE HCL 10 MG TABLET GT SCH ×4 (05:29→23:08)
[2018-10-18] MEDS: OMEPRAZOLE 20 MG CAPSULE.DR GT SCH (05:29)
[2018-10-18] MEDS: LEVOTHYROXINE SODIUM 88 MCG TABLET GT SCH (05:29)
[2018-10-18] MEDS: HYDROGEN PEROXIDE 480 ML BOTTLE TP SCH ×2 (07:42→20:10)
[2018-10-18] MEDS: MULTIVIT W/MINERALS 1 TAB TABLET GT SCH (08:50)
[2018-10-18] MEDS: CARBOXYMETHYLCELLULOSE SODIUM 0.4 ML DROPERETTE EACHEYE SCH (08:50)
[2018-10-18] MEDS: CHLORHEXIDINE GLUCONATE 15 ML UDC MM SCH ×2 (08:50→21:06)
[2018-10-18] MEDS: ACIDOPHILUS/BULGARICUS 1 EACH TAB.CHEW GT SCH (08:50)
[2018-10-18] MEDS: ZINC SULFATE 220 MG CAPSULE GT SCH (08:50)
[2018-10-18] MEDS: ASCORBIC ACID 500 MG TABLET GT SCH (08:50)
[2018-10-18] MEDS: LEVETIRACETAM SOL (5 ML) 100 MG/ML UDC GT SCH ×2 (08:50→21:05)
[2018-10-18] MEDS: MORPHINE SULFATE SOLN CONCENTRATED 20 MG/ML SL SCH ×2 (08:50→21:06)
[2018-10-18] MEDS: PROSTAT (PYXIS) 30 ML UDC GT SCH ×3 (08:50→17:00)
[2018-10-18] MEDS: COD LIVER OIL/ZINC OXIDE 120 GM TUBE TP SCH ×4 (09:20→21:40)
[2018-10-18] MEDS: THERAHONEY GEL 1.5 OZ TUBE TP SCH ×2 (09:20→21:40)
[2018-10-18] MEDS: NYSTATIN/TRIAMCIN CREAM 15 GM TUBE TP SCH ×4 (09:20→21:40)
[2018-10-18] MEDS: GLUCERNA 1.2 1,000 ML BOTTLE GT PRN (18:09)
[2018-10-19] VITALS (8 sets, daily range): BP systolic 105–123; BP diastolic 53–68
[2018-10-19] MEDS: IPRATROPIUM NEB FS 0.5 MG/2.5 ML AMPUL.NEB IH SCH ×4 (00:32→19:39)
[2018-10-19] MEDS: ALBUTEROL FS 2.5 MG/3 ML VIAL.NEB NEB SCH ×4 (00:32→19:39)
[2018-10-19] MEDS: LEVOTHYROXINE SODIUM 88 MCG TABLET GT SCH (05:48)
[2018-10-19] MEDS: METOCLOPRAMIDE HCL 10 MG TABLET GT SCH ×3 (05:48→17:06)
[2018-10-19] MEDS: OMEPRAZOLE 20 MG CAPSULE.DR GT SCH (05:48)
[2018-10-19] MEDS: GLUCERNA 1.2 1,000 ML BOTTLE GT PRN (06:02)
[2018-10-19] MEDS: HYDROGEN PEROXIDE 480 ML BOTTLE TP SCH ×2 (09:00→21:50)
[2018-10-19] MEDS: ASCORBIC ACID 500 MG TABLET GT SCH (09:24)
[2018-10-19] MEDS: CHLORHEXIDINE GLUCONATE 15 ML UDC MM SCH ×2 (09:24→21:30)
[2018-10-19] MEDS: LEVETIRACETAM SOL (5 ML) 100 MG/ML UDC GT SCH ×2 (09:24→21:15)
[2018-10-19] MEDS: PROSTAT (PYXIS) 30 ML UDC GT SCH ×3 (09:24→17:06)
[2018-10-19] MEDS: ZINC SULFATE 220 MG CAPSULE GT SCH (09:24)
[2018-10-19] MEDS: MULTIVIT W/MINERALS 1 TAB TABLET GT SCH (09:24)
[2018-10-19] MEDS: ACIDOPHILUS/BULGARICUS 1 EACH TAB.CHEW GT SCH (09:24)
[2018-10-19] MEDS: MORPHINE SULFATE SOLN CONCENTRATED 20 MG/ML SL SCH ×2 (09:24→21:30)
[2018-10-19] MEDS: CARBOXYMETHYLCELLULOSE SODIUM 0.4 ML DROPERETTE EACHEYE SCH (09:24)
[2018-10-19] MEDS: NYSTATIN/TRIAMCIN CREAM 15 GM TUBE TP SCH ×4 (10:00→21:50)
[2018-10-19] MEDS: THERAHONEY GEL 1.5 OZ TUBE TP SCH ×2 (10:00→21:50)
[2018-10-19] MEDS: COD LIVER OIL/ZINC OXIDE 120 GM TUBE TP SCH ×4 (10:00→21:50)
[2018-10-20] VITALS (8 sets, daily range): BP systolic 105–136; BP diastolic 53–59
[2018-10-20] MEDS: METOCLOPRAMIDE HCL 10 MG TABLET GT SCH ×5 (00:20→23:51)
[2018-10-20] MEDS: ALBUTEROL FS 2.5 MG/3 ML VIAL.NEB NEB SCH ×4 (01:26→19:50)
[2018-10-20] MEDS: IPRATROPIUM NEB FS 0.5 MG/2.5 ML AMPUL.NEB IH SCH ×4 (01:26→19:50)
[2018-10-20] MEDS: OMEPRAZOLE 20 MG CAPSULE.DR GT SCH (05:56)
[2018-10-20] MEDS: LEVOTHYROXINE SODIUM 88 MCG TABLET GT SCH (05:57)
[2018-10-20] MEDS: HYDROGEN PEROXIDE 480 ML BOTTLE TP SCH ×2 (09:42→21:27)
[2018-10-20] MEDS: MORPHINE SULFATE SOLN CONCENTRATED 20 MG/ML SL SCH ×2 (09:49→21:03)
[2018-10-20] MEDS: ASCORBIC ACID 500 MG TABLET GT SCH (09:49)
[2018-10-20] MEDS: CHLORHEXIDINE GLUCONATE 15 ML UDC MM SCH ×2 (09:49→21:03)
[2018-10-20] MEDS: PROSTAT (PYXIS) 30 ML UDC GT SCH ×3 (09:49→17:58)
[2018-10-20] MEDS: CARBOXYMETHYLCELLULOSE SODIUM 0.4 ML DROPERETTE EACHEYE SCH (09:49)
[2018-10-20] MEDS: MULTIVIT W/MINERALS 1 TAB TABLET GT SCH (09:49)
[2018-10-20] MEDS: LEVETIRACETAM SOL (5 ML) 100 MG/ML UDC GT SCH ×2 (09:49→21:03)
[2018-10-20] MEDS: ACIDOPHILUS/BULGARICUS 1 EACH TAB.CHEW GT SCH (09:49)
[2018-10-20] MEDS: ZINC SULFATE 220 MG CAPSULE GT SCH (09:49)
[2018-10-20] MEDS: NYSTATIN/TRIAMCIN CREAM 15 GM TUBE TP SCH ×2 (10:20→21:27)
[2018-10-20] MEDS: THERAHONEY GEL 1.5 OZ TUBE TP SCH ×2 (10:20→21:27)
[2018-10-20] MEDS: BACI/NEOM/POLY B OINT PKT 1 UDPKT PACKET TP SCH ×2 (10:20→21:27)
[2018-10-20] MEDS: COD LIVER OIL/ZINC OXIDE 120 GM TUBE TP SCH ×3 (10:20→21:27)
[2018-10-20] MEDS: GLUCERNA 1.2 1,000 ML BOTTLE GT PRN (17:58)
[2018-10-21] VITALS (7 sets, daily range): BP systolic 65–122; BP diastolic 50–69
[2018-10-21] MEDS: IPRATROPIUM NEB FS 0.5 MG/2.5 ML AMPUL.NEB IH SCH ×4 (01:37→19:24)
[2018-10-21] MEDS: ALBUTEROL FS 2.5 MG/3 ML VIAL.NEB NEB SCH ×4 (01:37→19:24)
[2018-10-21] MEDS: LEVOTHYROXINE SODIUM 88 MCG TABLET GT SCH (05:29)
[2018-10-21] MEDS: OMEPRAZOLE 20 MG CAPSULE.DR GT SCH (05:29)
[2018-10-21] MEDS: METOCLOPRAMIDE HCL 10 MG TABLET GT SCH ×4 (05:29→23:39)
[2018-10-21] MEDS: THERAHONEY GEL 1.5 OZ TUBE TP SCH ×2 (09:00→20:36)
[2018-10-21] MEDS: PROSTAT (PYXIS) 30 ML UDC GT SCH ×3 (09:00→17:05)
[2018-10-21] MEDS: BACI/NEOM/POLY B OINT PKT 1 UDPKT PACKET TP SCH ×2 (09:00→20:36)
[2018-10-21] MEDS: COD LIVER OIL/ZINC OXIDE 120 GM TUBE TP SCH ×2 (09:00→20:36)
[2018-10-21] MEDS: ACIDOPHILUS/BULGARICUS 1 EACH TAB.CHEW GT SCH (09:00)
[2018-10-21] MEDS: HYDROGEN PEROXIDE 480 ML BOTTLE TP SCH ×2 (09:00→20:36)
[2018-10-21] MEDS: CHLORHEXIDINE GLUCONATE 15 ML UDC MM SCH ×2 (09:00→20:35)
[2018-10-21] MEDS: MORPHINE SULFATE SOLN CONCENTRATED 20 MG/ML SL SCH ×2 (09:00→20:47)
[2018-10-21] MEDS: ZINC SULFATE 220 MG CAPSULE GT SCH (09:00)
[2018-10-21] MEDS: CARBOXYMETHYLCELLULOSE SODIUM 0.4 ML DROPERETTE EACHEYE SCH (09:00)
[2018-10-21] MEDS: LEVETIRACETAM SOL (5 ML) 100 MG/ML UDC GT SCH ×2 (09:00→20:47)
[2018-10-21] MEDS: MULTIVIT W/MINERALS 1 TAB TABLET GT SCH (09:00)
[2018-10-21] MEDS: NYSTATIN/TRIAMCIN CREAM 15 GM TUBE TP SCH ×2 (09:00→20:36)
[2018-10-21] MEDS: ASCORBIC ACID 500 MG TABLET GT SCH (09:00)
--- NOTE | 2018-10-21 13:54 | NUR ---
Resident up in tyson chair, taken to activity room for activities. She wss also taken by her daughter to the patio assisted by staff during transport. No episode of SOB, she tolerated being up in tyson chair for 2 and half hours and put patient back to bed immediately after.
[2018-10-22] VITALS (8 sets, daily range): BP systolic 100–125; BP diastolic 53–77
[2018-10-22] MEDS: ALBUTEROL FS 2.5 MG/3 ML VIAL.NEB NEB SCH ×4 (00:59→19:08)
[2018-10-22] MEDS: IPRATROPIUM NEB FS 0.5 MG/2.5 ML AMPUL.NEB IH SCH ×4 (00:59→19:08)
[2018-10-22] MEDS: METOCLOPRAMIDE HCL 10 MG TABLET GT SCH ×4 (05:42→23:46)
[2018-10-22] MEDS: OMEPRAZOLE 20 MG CAPSULE.DR GT SCH (05:42)
[2018-10-22] MEDS: LEVOTHYROXINE SODIUM 88 MCG TABLET GT SCH (05:42)
[2018-10-22] MEDS: MULTIVIT W/MINERALS 1 TAB TABLET GT SCH (08:12)
[2018-10-22] MEDS: CARBOXYMETHYLCELLULOSE SODIUM 0.4 ML DROPERETTE EACHEYE SCH (08:12)
[2018-10-22] MEDS: ACIDOPHILUS/BULGARICUS 1 EACH TAB.CHEW GT SCH (08:12)
[2018-10-22] MEDS: ZINC SULFATE 220 MG CAPSULE GT SCH (08:12)
[2018-10-22] MEDS: PROSTAT (PYXIS) 30 ML UDC GT SCH ×3 (08:12→17:41)
[2018-10-22] MEDS: LEVETIRACETAM SOL (5 ML) 100 MG/ML UDC GT SCH ×2 (08:12→21:19)
[2018-10-22] MEDS: CHLORHEXIDINE GLUCONATE 15 ML UDC MM SCH ×2 (08:12→21:19)
[2018-10-22] MEDS: MORPHINE SULFATE SOLN CONCENTRATED 20 MG/ML SL SCH ×2 (08:12→21:19)
[2018-10-22] MEDS: ASCORBIC ACID 500 MG TABLET GT SCH (08:12)
[2018-10-22] MEDS: HYDROGEN PEROXIDE 480 ML BOTTLE TP SCH ×2 (09:00→20:58)
[2018-10-22] MEDS: COD LIVER OIL/ZINC OXIDE 120 GM TUBE TP SCH ×2 (09:00→21:19)
[2018-10-22] MEDS: BACI/NEOM/POLY B OINT PKT 1 UDPKT PACKET TP SCH ×2 (09:00→21:19)
[2018-10-22] MEDS: NYSTATIN/TRIAMCIN CREAM 15 GM TUBE TP SCH ×2 (09:00→21:19)
[2018-10-22] MEDS: THERAHONEY GEL 1.5 OZ TUBE TP SCH ×2 (09:00→21:19)
--- NOTE | 2018-10-22 20:00 | NUR ---
RN NOTES Seen by Becca Smith NP, with no new orders.
[2018-10-23] VITALS (8 sets, daily range): BP systolic 103–128; BP diastolic 53–75
[2018-10-23] MEDS: IPRATROPIUM NEB FS 0.5 MG/2.5 ML AMPUL.NEB IH SCH ×4 (01:13→19:46)
[2018-10-23] MEDS: ALBUTEROL FS 2.5 MG/3 ML VIAL.NEB NEB SCH ×4 (01:13→19:46)
[2018-10-23] MEDS: METOCLOPRAMIDE HCL 10 MG TABLET GT SCH ×3 (05:51→17:02)
[2018-10-23] MEDS: OMEPRAZOLE 20 MG CAPSULE.DR GT SCH (05:51)
[2018-10-23] MEDS: LEVOTHYROXINE SODIUM 88 MCG TABLET GT SCH (05:52)
[2018-10-23] MEDS: LEVETIRACETAM SOL (5 ML) 100 MG/ML UDC GT SCH ×2 (08:30→21:15)
[2018-10-23] MEDS: CARBOXYMETHYLCELLULOSE SODIUM 0.4 ML DROPERETTE EACHEYE SCH (08:30)
[2018-10-23] MEDS: CHLORHEXIDINE GLUCONATE 15 ML UDC MM SCH ×2 (08:31→21:15)
[2018-10-23] MEDS: MULTIVIT W/MINERALS 1 TAB TABLET GT SCH (08:31)
[2018-10-23] MEDS: MORPHINE SULFATE SOLN CONCENTRATED 20 MG/ML SL SCH ×2 (08:31→21:15)
[2018-10-23] MEDS: ACIDOPHILUS/BULGARICUS 1 EACH TAB.CHEW GT SCH (08:31)
[2018-10-23] MEDS: ZINC SULFATE 220 MG CAPSULE GT SCH (08:31)
[2018-10-23] MEDS: ASCORBIC ACID 500 MG TABLET GT SCH (08:31)
[2018-10-23] MEDS: PROSTAT (PYXIS) 30 ML UDC GT SCH ×3 (08:35→16:26)
[2018-10-23] MEDS: COD LIVER OIL/ZINC OXIDE 120 GM TUBE TP SCH ×2 (09:44→21:15)
[2018-10-23] MEDS: HYDROGEN PEROXIDE 480 ML BOTTLE TP SCH ×2 (09:44→10:04)
[2018-10-23] MEDS: THERAHONEY GEL 1.5 OZ TUBE TP SCH ×2 (09:46→21:15)
[2018-10-23] MEDS: BACI/NEOM/POLY B OINT PKT 1 UDPKT PACKET TP SCH ×2 (09:46→21:15)
[2018-10-23] MEDS: NYSTATIN/TRIAMCIN CREAM 15 GM TUBE TP SCH ×2 (09:46→21:15)
[2018-10-23] MEDS: GLUCERNA 1.2 1,000 ML BOTTLE GT PRN (16:25)
--- NOTE | 2018-10-23 17:00 | NUR ---
SA HESTER NOTES-- DANIELS CATHETER WAS OUT. INSERTED NEW DANIELS CATH 16FR USING STERILE TECHNIQUE. PT TOLERATED WELL. TUBING IS INTACT W/ YELLOW URINE DRAINING WELL. WILL CONTINUE TO MONITOR.
[2018-10-24] VITALS (7 sets, daily range): BP systolic 101–117; BP diastolic 54–69
[2018-10-24] MEDS: METOCLOPRAMIDE HCL 10 MG TABLET GT SCH ×4 (00:28→17:16)
[2018-10-24] MEDS: IPRATROPIUM NEB FS 0.5 MG/2.5 ML AMPUL.NEB IH SCH ×4 (01:16→20:12)
[2018-10-24] MEDS: ALBUTEROL FS 2.5 MG/3 ML VIAL.NEB NEB SCH ×4 (01:16→20:12)
[2018-10-24] MEDS: OMEPRAZOLE 20 MG CAPSULE.DR GT SCH (06:06)
[2018-10-24] MEDS: LEVOTHYROXINE SODIUM 88 MCG TABLET GT SCH (06:06)
[2018-10-24] MEDS: LEVETIRACETAM SOL (5 ML) 100 MG/ML UDC GT SCH ×2 (08:06→21:43)
[2018-10-24] MEDS: CHLORHEXIDINE GLUCONATE 15 ML UDC MM SCH ×2 (08:06→21:43)
[2018-10-24] MEDS: MORPHINE SULFATE SOLN CONCENTRATED 20 MG/ML SL SCH ×2 (08:06→21:43)
[2018-10-24] MEDS: ASCORBIC ACID 500 MG TABLET GT SCH (08:06)
[2018-10-24] MEDS: MULTIVIT W/MINERALS 1 TAB TABLET GT SCH (08:06)
[2018-10-24] MEDS: ZINC SULFATE 220 MG CAPSULE GT SCH (08:06)
[2018-10-24] MEDS: CARBOXYMETHYLCELLULOSE SODIUM 0.4 ML DROPERETTE EACHEYE SCH (08:06)
[2018-10-24] MEDS: PROSTAT (PYXIS) 30 ML UDC GT SCH ×3 (08:06→17:16)
[2018-10-24] MEDS: ACIDOPHILUS/BULGARICUS 1 EACH TAB.CHEW GT SCH (08:06)
[2018-10-24] MEDS: NYSTATIN/TRIAMCIN CREAM 15 GM TUBE TP SCH ×2 (09:00→22:00)
[2018-10-24] MEDS: BACI/NEOM/POLY B OINT PKT 1 UDPKT PACKET TP SCH ×2 (09:00→22:00)
[2018-10-24] MEDS: THERAHONEY GEL 1.5 OZ TUBE TP SCH ×2 (09:00→22:00)
[2018-10-24] MEDS: HYDROGEN PEROXIDE 480 ML BOTTLE TP SCH ×2 (09:29→22:00)
[2018-10-24] MEDS: COD LIVER OIL/ZINC OXIDE 120 GM TUBE TP SCH ×2 (09:30→21:43)
--- NOTE | 2018-10-24 14:21 | NUR ---
JOSSE called and spoke with pt.'s daughter, Reyna Teresa to introduce herself as the new Subacute JOSSE. Reyna was receptive to speaking with JOSSE and expressed being content about hearing from SW. JOSSE invited Reyna to attend the IDT meeting being held this Friday, October 26, 2018 from 12:30- 1:30pm. Reyna expressed that she would like to be called via phone call and put on speaker to participate in IDT meeting. JOSSE will contact Reyna to have her participate in the IDT meeting this October 26 FROM 12:30PM TO 1:30 PM.
[2018-10-24] MEDS: GLUCERNA 1.2 1,000 ML BOTTLE GT PRN (17:14)
[2018-10-25] VITALS (9 sets, daily range): BP systolic 110–140; BP diastolic 56–70
[2018-10-25] MEDS: METOCLOPRAMIDE HCL 10 MG TABLET GT SCH ×5 (00:03→23:39)
[2018-10-25] MEDS: ALBUTEROL FS 2.5 MG/3 ML VIAL.NEB NEB SCH ×4 (01:22→19:56)
[2018-10-25] MEDS: IPRATROPIUM NEB FS 0.5 MG/2.5 ML AMPUL.NEB IH SCH ×4 (01:22→19:56)
[2018-10-25] MEDS: OMEPRAZOLE 20 MG CAPSULE.DR GT SCH (05:33)
[2018-10-25] MEDS: LEVOTHYROXINE SODIUM 88 MCG TABLET GT SCH (05:33)
[2018-10-25] MEDS: HYDROGEN PEROXIDE 480 ML BOTTLE TP SCH ×2 (07:30→21:20)
[2018-10-25] MEDS: LEVETIRACETAM SOL (5 ML) 100 MG/ML UDC GT SCH ×2 (09:00→21:19)
[2018-10-25] MEDS: CARBOXYMETHYLCELLULOSE SODIUM 0.4 ML DROPERETTE EACHEYE SCH (09:00)
[2018-10-25] MEDS: MORPHINE SULFATE SOLN CONCENTRATED 20 MG/ML SL SCH ×2 (09:01→21:20)
[2018-10-25] MEDS: MULTIVIT W/MINERALS 1 TAB TABLET GT SCH (09:01)
[2018-10-25] MEDS: PROSTAT (PYXIS) 30 ML UDC GT SCH ×3 (09:01→17:45)
[2018-10-25] MEDS: CHLORHEXIDINE GLUCONATE 15 ML UDC MM SCH ×2 (09:01→21:19)
[2018-10-25] MEDS: ZINC SULFATE 220 MG CAPSULE GT SCH (09:01)
[2018-10-25] MEDS: ACIDOPHILUS/BULGARICUS 1 EACH TAB.CHEW GT SCH (09:01)
[2018-10-25] MEDS: ASCORBIC ACID 500 MG TABLET GT SCH (09:01)
[2018-10-25] MEDS: THERAHONEY GEL 1.5 OZ TUBE TP SCH ×2 (09:30→21:20)
[2018-10-25] MEDS: NYSTATIN/TRIAMCIN CREAM 15 GM TUBE TP SCH ×2 (09:30→21:20)
[2018-10-25] MEDS: COD LIVER OIL/ZINC OXIDE 120 GM TUBE TP SCH ×2 (09:30→21:20)
[2018-10-25] MEDS: BACI/NEOM/POLY B OINT PKT 1 UDPKT PACKET TP SCH ×2 (09:30→21:20)
--- NOTE | 2018-10-25 12:50 | NUR ---
Seen and examined by Dr. Ross NNO given. MD made aware that resident was OOB to tyson-chair and taken to the patio by family last Monday. No untoward incident, patient did not have any episode of SOB when she was out.
[2018-10-25] MEDS: GLUCERNA 1.2 1,000 ML BOTTLE GT PRN (12:58)
--- NOTE | 2018-10-25 19:00 | NUR ---
Seen and examined by TERESA Smith, NNO given.
[2018-10-26] VITALS (8 sets, daily range): BP systolic 109–128; BP diastolic 57–74
[2018-10-26] MEDS: ALBUTEROL FS 2.5 MG/3 ML VIAL.NEB NEB SCH ×4 (01:55→19:29)
[2018-10-26] MEDS: IPRATROPIUM NEB FS 0.5 MG/2.5 ML AMPUL.NEB IH SCH ×4 (01:55→19:28)
[2018-10-26] MEDS: LEVOTHYROXINE SODIUM 88 MCG TABLET GT SCH (05:19)
[2018-10-26] MEDS: OMEPRAZOLE 20 MG CAPSULE.DR GT SCH (05:19)
[2018-10-26] MEDS: METOCLOPRAMIDE HCL 10 MG TABLET GT SCH ×4 (05:19→23:27)
[2018-10-26] MEDS: BISACODYL SUPP (10 MG) 10 MG/SUPP.RECT SUPP.RECT RC PRN (06:38)
[2018-10-26] MEDS: HYDROGEN PEROXIDE 480 ML BOTTLE TP SCH ×2 (09:00→21:04)
[2018-10-26] MEDS: PROSTAT (PYXIS) 30 ML UDC GT SCH ×3 (09:10→17:10)
[2018-10-26] MEDS: CARBOXYMETHYLCELLULOSE SODIUM 0.4 ML DROPERETTE EACHEYE SCH (09:10)
[2018-10-26] MEDS: ACIDOPHILUS/BULGARICUS 1 EACH TAB.CHEW GT SCH (09:10)
[2018-10-26] MEDS: ZINC SULFATE 220 MG CAPSULE GT SCH (09:10)
[2018-10-26] MEDS: MULTIVIT W/MINERALS 1 TAB TABLET GT SCH (09:10)
[2018-10-26] MEDS: ASCORBIC ACID 500 MG TABLET GT SCH (09:10)
[2018-10-26] MEDS: LEVETIRACETAM SOL (5 ML) 100 MG/ML UDC GT SCH ×2 (09:10→21:03)
[2018-10-26] MEDS: MORPHINE SULFATE SOLN CONCENTRATED 20 MG/ML SL SCH ×2 (09:11→21:03)
[2018-10-26] MEDS: CHLORHEXIDINE GLUCONATE 15 ML UDC MM SCH ×2 (09:11→21:03)
[2018-10-26] MEDS: BACI/NEOM/POLY B OINT PKT 1 UDPKT PACKET TP SCH ×2 (09:45→21:04)
[2018-10-26] MEDS: COD LIVER OIL/ZINC OXIDE 120 GM TUBE TP SCH ×2 (09:45→21:04)
[2018-10-26] MEDS: THERAHONEY GEL 1.5 OZ TUBE TP SCH ×2 (09:45→21:04)
[2018-10-26] MEDS: NYSTATIN/TRIAMCIN CREAM 15 GM TUBE TP SCH ×2 (09:45→21:04)
--- NOTE | 2018-10-26 14:56 | NUR ---
INTERDISCIPLINARY TEAM CONFERENCE (IDT) was held today. The patient's daughter, Reyna Galindo [phone] was called for her participation in the IDT meeting. However, the we were not able to reach Reyna. Dr. Monet and the interdisciplinary team reviewed the current plan of care in detail. Orders as well as treatments and medications were reviewed. Per Charge nurseRahul the patient's sacral wound is improving and decreasing in size. Per Rahul, the patient's family have recently expressed being thoroughly content with the ability to take the resident out to the patio and spend quality time with them. No new orders were given.
[2018-10-26] MEDS: GLUCERNA 1.2 1,000 ML BOTTLE GT PRN (16:49)
[2018-10-27] VITALS (7 sets, daily range): BP systolic 102–121; BP diastolic 51–73
[2018-10-27] MEDS: ALBUTEROL FS 2.5 MG/3 ML VIAL.NEB NEB SCH ×4 (01:18→20:10)
[2018-10-27] MEDS: IPRATROPIUM NEB FS 0.5 MG/2.5 ML AMPUL.NEB IH SCH ×5 (01:18→20:10)
[2018-10-27] MEDS: OMEPRAZOLE 20 MG CAPSULE.DR GT SCH (05:36)
[2018-10-27] MEDS: METOCLOPRAMIDE HCL 10 MG TABLET GT SCH ×3 (05:36→17:30)
[2018-10-27] MEDS: LEVOTHYROXINE SODIUM 88 MCG TABLET GT SCH (05:36)
[2018-10-27] MEDS: ASCORBIC ACID 500 MG TABLET GT SCH (09:49)
[2018-10-27] MEDS: LEVETIRACETAM SOL (5 ML) 100 MG/ML UDC GT SCH ×2 (09:49→21:06)
[2018-10-27] MEDS: PROSTAT (PYXIS) 30 ML UDC GT SCH ×3 (09:49→17:30)
[2018-10-27] MEDS: MULTIVIT W/MINERALS 1 TAB TABLET GT SCH (09:49)
[2018-10-27] MEDS: ACIDOPHILUS/BULGARICUS 1 EACH TAB.CHEW GT SCH (09:49)
[2018-10-27] MEDS: CHLORHEXIDINE GLUCONATE 15 ML UDC MM SCH ×2 (09:49→21:05)
[2018-10-27] MEDS: ZINC SULFATE 220 MG CAPSULE GT SCH (09:49)
[2018-10-27] MEDS: CARBOXYMETHYLCELLULOSE SODIUM 0.4 ML DROPERETTE EACHEYE SCH (09:49)
[2018-10-27] MEDS: MORPHINE SULFATE SOLN CONCENTRATED 20 MG/ML SL SCH ×2 (09:49→21:06)
[2018-10-27] MEDS: HYDROGEN PEROXIDE 480 ML BOTTLE TP SCH ×2 (09:57→21:10)
[2018-10-27] MEDS: NYSTATIN/TRIAMCIN CREAM 15 GM TUBE TP SCH ×2 (10:10→21:11)
[2018-10-27] MEDS: COD LIVER OIL/ZINC OXIDE 120 GM TUBE TP SCH ×2 (10:10→21:10)
[2018-10-27] MEDS: THERAHONEY GEL 1.5 OZ TUBE TP SCH ×2 (10:10→21:11)
[2018-10-27] MEDS: GLUCERNA 1.2 1,000 ML BOTTLE GT PRN (14:38)
[2018-10-28] VITALS (7 sets, daily range): BP systolic 110–133; BP diastolic 57–67
[2018-10-28] MEDS: METOCLOPRAMIDE HCL 10 MG TABLET GT SCH ×4 (00:09→18:26)
[2018-10-28] MEDS: IPRATROPIUM NEB FS 0.5 MG/2.5 ML AMPUL.NEB IH SCH ×4 (02:27→19:48)
[2018-10-28] MEDS: ALBUTEROL FS 2.5 MG/3 ML VIAL.NEB NEB SCH ×4 (02:27→19:48)
[2018-10-28] MEDS: OMEPRAZOLE 20 MG CAPSULE.DR GT SCH (05:12)
[2018-10-28] MEDS: LEVOTHYROXINE SODIUM 88 MCG TABLET GT SCH (05:12)
[2018-10-28] MEDS: ZINC SULFATE 220 MG CAPSULE GT SCH (09:00)
[2018-10-28] MEDS: THERAHONEY GEL 1.5 OZ TUBE TP SCH ×2 (09:00→21:11)
[2018-10-28] MEDS: LEVETIRACETAM SOL (5 ML) 100 MG/ML UDC GT SCH ×2 (09:00→21:10)
[2018-10-28] MEDS: ASCORBIC ACID 500 MG TABLET GT SCH (09:00)
[2018-10-28] MEDS: CARBOXYMETHYLCELLULOSE SODIUM 0.4 ML DROPERETTE EACHEYE SCH (09:00)
[2018-10-28] MEDS: ACIDOPHILUS/BULGARICUS 1 EACH TAB.CHEW GT SCH (09:00)
[2018-10-28] MEDS: COD LIVER OIL/ZINC OXIDE 120 GM TUBE TP SCH ×2 (09:00→21:10)
[2018-10-28] MEDS: CHLORHEXIDINE GLUCONATE 15 ML UDC MM SCH ×2 (09:00→21:10)
[2018-10-28] MEDS: PROSTAT (PYXIS) 30 ML UDC GT SCH ×3 (09:00→17:00)
[2018-10-28] MEDS: NYSTATIN/TRIAMCIN CREAM 15 GM TUBE TP SCH ×2 (09:00→21:10)
[2018-10-28] MEDS: MORPHINE SULFATE SOLN CONCENTRATED 20 MG/ML SL SCH ×2 (09:00→21:10)
[2018-10-28] MEDS: MULTIVIT W/MINERALS 1 TAB TABLET GT SCH (09:00)
[2018-10-28] MEDS: HYDROGEN PEROXIDE 480 ML BOTTLE TP SCH ×2 (10:15→21:07)
[2018-10-28] MEDS: GLUCERNA 1.2 1,000 ML BOTTLE GT PRN (15:14)
--- NOTE | 2018-10-28 21:17 | NUR ---
RT PATIENT REMAINED ON 28% COOL AEROSOL. PATIENT TOLERATED CURRENT OXYGEN THERAPY. PATIENT STABLE AT THIS TIME. TRACH TUBE PATENT AND SECURED. WILL CONTINUE TO MONITOR. Addendum: 10/28/18 at 2120 by DAKSHA SHARP RT Amended: Links added.
[2018-10-29] VITALS (7 sets, daily range): BP systolic 102–139; BP diastolic 56–72
[2018-10-29] MEDS: METOCLOPRAMIDE HCL 10 MG TABLET GT SCH ×4 (00:22→17:45)
[2018-10-29] MEDS: IPRATROPIUM NEB FS 0.5 MG/2.5 ML AMPUL.NEB IH SCH ×4 (01:19→19:58)
[2018-10-29] MEDS: ALBUTEROL FS 2.5 MG/3 ML VIAL.NEB NEB SCH ×4 (01:19→19:58)
[2018-10-29] MEDS: LEVOTHYROXINE SODIUM 88 MCG TABLET GT SCH (05:52)
[2018-10-29] MEDS: OMEPRAZOLE 20 MG CAPSULE.DR GT SCH (05:52)
[2018-10-29] MEDS: CARBOXYMETHYLCELLULOSE SODIUM 0.4 ML DROPERETTE EACHEYE SCH (09:05)
[2018-10-29] MEDS: ACIDOPHILUS/BULGARICUS 1 EACH TAB.CHEW GT SCH (09:06)
[2018-10-29] MEDS: PROSTAT (PYXIS) 30 ML UDC GT SCH ×3 (09:06→17:45)
[2018-10-29] MEDS: NYSTATIN/TRIAMCIN CREAM 15 GM TUBE TP SCH ×2 (09:06→21:07)
[2018-10-29] MEDS: MORPHINE SULFATE SOLN CONCENTRATED 20 MG/ML SL SCH ×2 (09:06→21:07)
[2018-10-29] MEDS: MULTIVIT W/MINERALS 1 TAB TABLET GT SCH (09:06)
[2018-10-29] MEDS: ASCORBIC ACID 500 MG TABLET GT SCH (09:06)
[2018-10-29] MEDS: LEVETIRACETAM SOL (5 ML) 100 MG/ML UDC GT SCH ×2 (09:06→21:07)
[2018-10-29] MEDS: CHLORHEXIDINE GLUCONATE 15 ML UDC MM SCH ×2 (09:06→21:07)
[2018-10-29] MEDS: COD LIVER OIL/ZINC OXIDE 120 GM TUBE TP SCH ×2 (09:06→21:07)
[2018-10-29] MEDS: THERAHONEY GEL 1.5 OZ TUBE TP SCH ×2 (09:06→21:07)
[2018-10-29] MEDS: ZINC SULFATE 220 MG CAPSULE GT SCH (09:06)
[2018-10-29] MEDS: HYDROGEN PEROXIDE 480 ML BOTTLE TP SCH ×2 (09:25→21:07)
[2018-10-29] MEDS: GLUCERNA 1.2 1,000 ML BOTTLE GT PRN (14:05)
[2018-10-30] VITALS (7 sets, daily range): BP systolic 110–135; BP diastolic 52–76
[2018-10-30] MEDS: METOCLOPRAMIDE HCL 10 MG TABLET GT SCH ×5 (00:13→23:51)
[2018-10-30] MEDS: IPRATROPIUM NEB FS 0.5 MG/2.5 ML AMPUL.NEB IH SCH ×4 (01:30→19:50)
[2018-10-30] MEDS: ALBUTEROL FS 2.5 MG/3 ML VIAL.NEB NEB SCH ×4 (01:30→19:50)
[2018-10-30] MEDS: OMEPRAZOLE 20 MG CAPSULE.DR GT SCH (05:53)
[2018-10-30] MEDS: LEVOTHYROXINE SODIUM 88 MCG TABLET GT SCH (05:53)
[2018-10-30] MEDS: HYDROGEN PEROXIDE 480 ML BOTTLE TP SCH ×2 (09:00→21:02)
--- NOTE | 2018-10-30 09:00 | NUR ---
Seen and examined by Dr. Monet, no new order given.
[2018-10-30] MEDS: ZINC SULFATE 220 MG CAPSULE GT SCH (09:13)
[2018-10-30] MEDS: CHLORHEXIDINE GLUCONATE 15 ML UDC MM SCH ×2 (09:13→21:02)
[2018-10-30] MEDS: LEVETIRACETAM SOL (5 ML) 100 MG/ML UDC GT SCH ×2 (09:13→21:02)
[2018-10-30] MEDS: NYSTATIN/TRIAMCIN CREAM 15 GM TUBE TP SCH ×2 (09:13→21:03)
[2018-10-30] MEDS: ACIDOPHILUS/BULGARICUS 1 EACH TAB.CHEW GT SCH (09:13)
[2018-10-30] MEDS: MORPHINE SULFATE SOLN CONCENTRATED 20 MG/ML SL SCH ×2 (09:13→21:02)
[2018-10-30] MEDS: ASCORBIC ACID 500 MG TABLET GT SCH (09:13)
[2018-10-30] MEDS: COD LIVER OIL/ZINC OXIDE 120 GM TUBE TP SCH ×2 (09:13→21:02)
[2018-10-30] MEDS: PROSTAT (PYXIS) 30 ML UDC GT SCH ×3 (09:13→17:00)
[2018-10-30] MEDS: MULTIVIT W/MINERALS 1 TAB TABLET GT SCH (09:13)
[2018-10-30] MEDS: CARBOXYMETHYLCELLULOSE SODIUM 0.4 ML DROPERETTE EACHEYE SCH (09:13)
[2018-10-30] MEDS: THERAHONEY GEL 1.5 OZ TUBE TP SCH ×2 (09:13→21:03)
[2018-10-30] MEDS: GLUCERNA 1.2 1,000 ML BOTTLE GT PRN (14:26)
[2018-10-31] VITALS (9 sets, daily range): BP systolic 103–130; BP diastolic 50–75
[2018-10-31] MEDS: IPRATROPIUM NEB FS 0.5 MG/2.5 ML AMPUL.NEB IH SCH ×4 (00:41→19:45)
[2018-10-31] MEDS: ALBUTEROL FS 2.5 MG/3 ML VIAL.NEB NEB SCH ×4 (00:41→19:45)
[2018-10-31] MEDS: OMEPRAZOLE 20 MG CAPSULE.DR GT SCH (06:00)
[2018-10-31] MEDS: METOCLOPRAMIDE HCL 10 MG TABLET GT SCH ×4 (06:00→23:01)
[2018-10-31] MEDS: LEVOTHYROXINE SODIUM 88 MCG TABLET GT SCH (06:00)
[2018-10-31] MEDS: CHLORHEXIDINE GLUCONATE 15 ML UDC MM SCH ×2 (08:03→20:02)
[2018-10-31] MEDS: CARBOXYMETHYLCELLULOSE SODIUM 0.4 ML DROPERETTE EACHEYE SCH (08:03)
[2018-10-31] MEDS: ZINC SULFATE 220 MG CAPSULE GT SCH (08:03)
[2018-10-31] MEDS: MULTIVIT W/MINERALS 1 TAB TABLET GT SCH (08:03)
[2018-10-31] MEDS: LEVETIRACETAM SOL (5 ML) 100 MG/ML UDC GT SCH ×2 (08:03→20:02)
[2018-10-31] MEDS: ACIDOPHILUS/BULGARICUS 1 EACH TAB.CHEW GT SCH (08:03)
[2018-10-31] MEDS: ASCORBIC ACID 500 MG TABLET GT SCH (08:03)
[2018-10-31] MEDS: MORPHINE SULFATE SOLN CONCENTRATED 20 MG/ML SL SCH ×2 (08:03→20:02)
[2018-10-31] MEDS: PROSTAT (PYXIS) 30 ML UDC GT SCH ×3 (08:03→17:13)
[2018-10-31] MEDS: COD LIVER OIL/ZINC OXIDE 120 GM TUBE TP SCH ×2 (09:00→20:05)
--- NOTE | 2018-10-31 10:45 | NUR ---
Seen and examined patient, no new order given.
[2018-10-31] MEDS: GLUCERNA 1.2 1,000 ML BOTTLE GT PRN (12:30)
--- NOTE | 2018-10-31 14:26 | NUR ---
SW completed Library Manager portion of 1st quarter MDS. The patient continues to remain comatose and is DNR. The patients family is involved and supportive including patients daughter: Reyna Galindo [phone]. The patient often spends quality time in the patio with her family who visits almost daily.
[2018-10-31] MEDS: HYDROGEN PEROXIDE 480 ML BOTTLE TP SCH (20:36)
[2018-11-01] VITALS (8 sets, daily range): BP systolic 112–139; BP diastolic 63–83
[2018-11-01] MEDS: ALBUTEROL FS 2.5 MG/3 ML VIAL.NEB NEB SCH ×4 (00:46→19:58)
[2018-11-01] MEDS: IPRATROPIUM NEB FS 0.5 MG/2.5 ML AMPUL.NEB IH SCH ×4 (00:46→19:58)
[2018-11-01] MEDS: LEVOTHYROXINE SODIUM 88 MCG TABLET GT SCH (05:07)
[2018-11-01] MEDS: METOCLOPRAMIDE HCL 10 MG TABLET GT SCH ×3 (05:07→17:17)
[2018-11-01] MEDS: OMEPRAZOLE 20 MG CAPSULE.DR GT SCH (05:07)
[2018-11-01] MEDS: HYDROGEN PEROXIDE 480 ML BOTTLE TP SCH ×2 (09:15→21:00)
[2018-11-01] MEDS: PROSTAT (PYXIS) 30 ML UDC GT SCH ×3 (09:55→17:17)
[2018-11-01] MEDS: ACIDOPHILUS/BULGARICUS 1 EACH TAB.CHEW GT SCH (09:55)
[2018-11-01] MEDS: MORPHINE SULFATE SOLN CONCENTRATED 20 MG/ML SL SCH ×2 (09:55→21:00)
[2018-11-01] MEDS: ASCORBIC ACID 500 MG TABLET GT SCH (09:55)
[2018-11-01] MEDS: ZINC SULFATE 220 MG CAPSULE GT SCH (09:55)
[2018-11-01] MEDS: CARBOXYMETHYLCELLULOSE SODIUM 0.4 ML DROPERETTE EACHEYE SCH (09:55)
[2018-11-01] MEDS: MULTIVIT W/MINERALS 1 TAB TABLET GT SCH (09:55)
[2018-11-01] MEDS: CHLORHEXIDINE GLUCONATE 15 ML UDC MM SCH ×2 (09:55→21:00)
[2018-11-01] MEDS: LEVETIRACETAM SOL (5 ML) 100 MG/ML UDC GT SCH ×2 (09:55→21:00)
[2018-11-01] MEDS: THERAHONEY GEL 1.5 OZ TUBE TP SCH ×2 (10:30→21:00)
[2018-11-01] MEDS: NYSTATIN/TRIAMCIN CREAM 15 GM TUBE TP SCH ×2 (10:30→21:00)
[2018-11-01] MEDS: COD LIVER OIL/ZINC OXIDE 120 GM TUBE TP SCH ×2 (10:30→21:00)
[2018-11-02] VITALS (7 sets, daily range): BP systolic 115–132; BP diastolic 62–74
[2018-11-02] MEDS: METOCLOPRAMIDE HCL 10 MG TABLET GT SCH ×4 (00:14→18:01)
[2018-11-02] MEDS: IPRATROPIUM NEB FS 0.5 MG/2.5 ML AMPUL.NEB IH SCH ×4 (01:51→19:40)
[2018-11-02] MEDS: ALBUTEROL FS 2.5 MG/3 ML VIAL.NEB NEB SCH ×4 (01:51→19:40)
[2018-11-02] MEDS: OMEPRAZOLE 20 MG CAPSULE.DR GT SCH (05:13)
[2018-11-02] MEDS: LEVOTHYROXINE SODIUM 88 MCG TABLET GT SCH (05:13)
[2018-11-02] MEDS: THERAHONEY GEL 1.5 OZ TUBE TP SCH ×2 (09:00→21:50)
[2018-11-02] MEDS: COD LIVER OIL/ZINC OXIDE 120 GM TUBE TP SCH ×2 (09:00→21:49)
[2018-11-02] MEDS: CHLORHEXIDINE GLUCONATE 15 ML UDC MM SCH ×2 (09:00→21:49)
[2018-11-02] MEDS: NYSTATIN/TRIAMCIN CREAM 15 GM TUBE TP SCH ×2 (09:00→21:50)
[2018-11-02] MEDS: HYDROGEN PEROXIDE 480 ML BOTTLE TP SCH ×2 (09:00→21:00)
[2018-11-02] MEDS: ACIDOPHILUS/BULGARICUS 1 EACH TAB.CHEW GT SCH (09:01)
[2018-11-02] MEDS: PROSTAT (PYXIS) 30 ML UDC GT SCH ×3 (09:02→17:59)
[2018-11-02] MEDS: ASCORBIC ACID 500 MG TABLET GT SCH (09:02)
[2018-11-02] MEDS: ZINC SULFATE 220 MG CAPSULE GT SCH (09:03)
[2018-11-02] MEDS: CARBOXYMETHYLCELLULOSE SODIUM 0.4 ML DROPERETTE EACHEYE SCH (09:09)
[2018-11-02] MEDS: LEVETIRACETAM SOL (5 ML) 100 MG/ML UDC GT SCH ×2 (09:09→20:32)
[2018-11-02] MEDS: MORPHINE SULFATE SOLN CONCENTRATED 20 MG/ML SL SCH ×2 (09:09→20:34)
[2018-11-02] MEDS: MULTIVIT W/MINERALS 1 TAB TABLET GT SCH (09:09)
[2018-11-02] MEDS: GLUCERNA 1.2 1,000 ML BOTTLE GT PRN (10:04)
[2018-11-03] VITALS (8 sets, daily range): BP systolic 106–138; BP diastolic 52–73
[2018-11-03] MEDS: METOCLOPRAMIDE HCL 10 MG TABLET GT SCH ×4 (00:49→17:44)
[2018-11-03] MEDS: IPRATROPIUM NEB FS 0.5 MG/2.5 ML AMPUL.NEB IH SCH ×4 (01:49→19:32)
[2018-11-03] MEDS: ALBUTEROL FS 2.5 MG/3 ML VIAL.NEB NEB SCH ×4 (01:50→19:32)
[2018-11-03] MEDS: LEVOTHYROXINE SODIUM 88 MCG TABLET GT SCH (05:03)
[2018-11-03] MEDS: OMEPRAZOLE 20 MG CAPSULE.DR GT SCH (05:09)
[2018-11-03] MEDS: GLUCERNA 1.2 1,000 ML BOTTLE GT PRN (06:12)
[2018-11-03] MEDS: PROSTAT (PYXIS) 30 ML UDC GT SCH ×3 (08:16→17:44)
[2018-11-03] MEDS: ASCORBIC ACID 500 MG TABLET GT SCH (08:16)
[2018-11-03] MEDS: ZINC SULFATE 220 MG CAPSULE GT SCH (08:16)
[2018-11-03] MEDS: ACIDOPHILUS/BULGARICUS 1 EACH TAB.CHEW GT SCH (08:16)
[2018-11-03] MEDS: CHLORHEXIDINE GLUCONATE 15 ML UDC MM SCH ×2 (08:16→21:25)
[2018-11-03] MEDS: MORPHINE SULFATE SOLN CONCENTRATED 20 MG/ML SL SCH ×2 (08:16→21:26)
[2018-11-03] MEDS: CARBOXYMETHYLCELLULOSE SODIUM 0.4 ML DROPERETTE EACHEYE SCH (08:16)
[2018-11-03] MEDS: LEVETIRACETAM SOL (5 ML) 100 MG/ML UDC GT SCH ×2 (08:16→21:25)
[2018-11-03] MEDS: MULTIVIT W/MINERALS 1 TAB TABLET GT SCH (08:16)
[2018-11-03] MEDS: COD LIVER OIL/ZINC OXIDE 120 GM TUBE TP SCH ×2 (09:00→21:26)
[2018-11-03] MEDS: THERAHONEY GEL 1.5 OZ TUBE TP SCH ×2 (09:00→21:26)
[2018-11-03] MEDS: NYSTATIN/TRIAMCIN CREAM 15 GM TUBE TP SCH ×2 (09:00→21:26)
[2018-11-03] MEDS: HYDROGEN PEROXIDE 480 ML BOTTLE TP SCH ×2 (09:00→21:26)
[2018-11-04] VITALS (7 sets, daily range): BP systolic 111–133; BP diastolic 56–71
[2018-11-04] MEDS: METOCLOPRAMIDE HCL 10 MG TABLET GT SCH ×4 (00:04→17:46)
[2018-11-04] MEDS: IPRATROPIUM NEB FS 0.5 MG/2.5 ML AMPUL.NEB IH SCH ×4 (01:41→20:04)
[2018-11-04] MEDS: ALBUTEROL FS 2.5 MG/3 ML VIAL.NEB NEB SCH ×4 (01:41→20:04)
[2018-11-04] MEDS: GLUCERNA 1.2 1,000 ML BOTTLE GT PRN (03:25)
[2018-11-04] MEDS: OMEPRAZOLE 20 MG CAPSULE.DR GT SCH (05:23)
[2018-11-04] MEDS: LEVOTHYROXINE SODIUM 88 MCG TABLET GT SCH (05:23)
[2018-11-04] MEDS: BISACODYL SUPP (10 MG) 10 MG/SUPP.RECT SUPP.RECT RC PRN (06:41)
[2018-11-04] MEDS: HYDROGEN PEROXIDE 480 ML BOTTLE TP SCH ×2 (09:00→21:00)
[2018-11-04] MEDS: LEVETIRACETAM SOL (5 ML) 100 MG/ML UDC GT SCH ×2 (09:15→21:58)
[2018-11-04] MEDS: MULTIVIT W/MINERALS 1 TAB TABLET GT SCH (09:15)
[2018-11-04] MEDS: CARBOXYMETHYLCELLULOSE SODIUM 0.4 ML DROPERETTE EACHEYE SCH (09:15)
[2018-11-04] MEDS: MORPHINE SULFATE SOLN CONCENTRATED 20 MG/ML SL SCH ×2 (09:15→21:58)
[2018-11-04] MEDS: ASCORBIC ACID 500 MG TABLET GT SCH (09:15)
[2018-11-04] MEDS: CHLORHEXIDINE GLUCONATE 15 ML UDC MM SCH ×2 (09:15→21:58)
[2018-11-04] MEDS: PROSTAT (PYXIS) 30 ML UDC GT SCH ×3 (09:15→17:46)
[2018-11-04] MEDS: ACIDOPHILUS/BULGARICUS 1 EACH TAB.CHEW GT SCH (09:15)
[2018-11-04] MEDS: ZINC SULFATE 220 MG CAPSULE GT SCH (09:15)
[2018-11-04] MEDS: COD LIVER OIL/ZINC OXIDE 120 GM TUBE TP SCH ×2 (09:16→21:59)
[2018-11-04] MEDS: THERAHONEY GEL 1.5 OZ TUBE TP SCH ×2 (09:34→21:59)
[2018-11-04] MEDS: NYSTATIN/TRIAMCIN CREAM 15 GM TUBE TP SCH ×2 (09:34→21:59)
[2018-11-05] VITALS (7 sets, daily range): BP systolic 118–127; BP diastolic 59–72
[2018-11-05] MEDS: METOCLOPRAMIDE HCL 10 MG TABLET GT SCH ×4 (00:28→18:00)
[2018-11-05] MEDS: GLUCERNA 1.2 1,000 ML BOTTLE GT PRN (01:12)
[2018-11-05] MEDS: ALBUTEROL FS 2.5 MG/3 ML VIAL.NEB NEB SCH ×4 (01:33→19:29)
[2018-11-05] MEDS: IPRATROPIUM NEB FS 0.5 MG/2.5 ML AMPUL.NEB IH SCH ×4 (01:33→19:29)
[2018-11-05] MEDS: LEVOTHYROXINE SODIUM 88 MCG TABLET GT SCH (06:03)
[2018-11-05] MEDS: OMEPRAZOLE 20 MG CAPSULE.DR GT SCH (06:03)
[2018-11-05] MEDS: ASCORBIC ACID 500 MG TABLET GT SCH (08:51)
[2018-11-05] MEDS: LEVETIRACETAM SOL (5 ML) 100 MG/ML UDC GT SCH ×2 (08:51→20:28)
[2018-11-05] MEDS: CARBOXYMETHYLCELLULOSE SODIUM 0.4 ML DROPERETTE EACHEYE SCH (08:51)
[2018-11-05] MEDS: PROSTAT (PYXIS) 30 ML UDC GT SCH ×3 (08:51→17:00)
[2018-11-05] MEDS: CHLORHEXIDINE GLUCONATE 15 ML UDC MM SCH ×2 (08:51→20:28)
[2018-11-05] MEDS: COD LIVER OIL/ZINC OXIDE 120 GM TUBE TP SCH ×2 (08:51→20:28)
[2018-11-05] MEDS: ACIDOPHILUS/BULGARICUS 1 EACH TAB.CHEW GT SCH (08:51)
[2018-11-05] MEDS: ZINC SULFATE 220 MG CAPSULE GT SCH (08:51)
[2018-11-05] MEDS: MULTIVIT W/MINERALS 1 TAB TABLET GT SCH (08:51)
[2018-11-05] MEDS: MORPHINE SULFATE SOLN CONCENTRATED 20 MG/ML SL SCH ×2 (08:51→20:28)
[2018-11-05] MEDS: HYDROGEN PEROXIDE 480 ML BOTTLE TP SCH ×2 (09:00→20:28)
[2018-11-05] MEDS: THERAHONEY GEL 1.5 OZ TUBE TP SCH ×2 (09:00→20:29)
[2018-11-05] MEDS: NYSTATIN/TRIAMCIN CREAM 15 GM TUBE TP SCH ×2 (09:00→20:29)
[2018-11-06] VITALS (7 sets, daily range): BP systolic 104–136; BP diastolic 50–73
[2018-11-06] MEDS: METOCLOPRAMIDE HCL 10 MG TABLET GT SCH ×5 (00:18→23:59)
[2018-11-06] MEDS: GLUCERNA 1.2 1,000 ML BOTTLE GT PRN ×2 (00:39→23:59)
[2018-11-06] MEDS: ALBUTEROL FS 2.5 MG/3 ML VIAL.NEB NEB SCH ×4 (01:05→19:26)
[2018-11-06] MEDS: IPRATROPIUM NEB FS 0.5 MG/2.5 ML AMPUL.NEB IH SCH ×4 (01:05→19:26)
[2018-11-06] MEDS: OMEPRAZOLE 20 MG CAPSULE.DR GT SCH (05:11)
[2018-11-06] MEDS: LEVOTHYROXINE SODIUM 88 MCG TABLET GT SCH (05:11)
[2018-11-06] MEDS: MULTIVIT W/MINERALS 1 TAB TABLET GT SCH (08:35)
[2018-11-06] MEDS: PROSTAT (PYXIS) 30 ML UDC GT SCH ×3 (08:35→17:15)
[2018-11-06] MEDS: LEVETIRACETAM SOL (5 ML) 100 MG/ML UDC GT SCH ×2 (08:35→20:40)
[2018-11-06] MEDS: CHLORHEXIDINE GLUCONATE 15 ML UDC MM SCH ×2 (08:35→20:40)
[2018-11-06] MEDS: ASCORBIC ACID 500 MG TABLET GT SCH (08:35)
[2018-11-06] MEDS: CARBOXYMETHYLCELLULOSE SODIUM 0.4 ML DROPERETTE EACHEYE SCH (08:35)
[2018-11-06] MEDS: MORPHINE SULFATE SOLN CONCENTRATED 20 MG/ML SL SCH ×2 (08:35→20:40)
[2018-11-06] MEDS: ACIDOPHILUS/BULGARICUS 1 EACH TAB.CHEW GT SCH (08:35)
[2018-11-06] MEDS: ZINC SULFATE 220 MG CAPSULE GT SCH (08:35)
[2018-11-06] MEDS: COD LIVER OIL/ZINC OXIDE 120 GM TUBE TP SCH ×2 (09:00→21:50)
[2018-11-06] MEDS: NYSTATIN/TRIAMCIN CREAM 15 GM TUBE TP SCH ×2 (09:00→21:51)
[2018-11-06] MEDS: THERAHONEY GEL 1.5 OZ TUBE TP SCH ×2 (09:00→21:51)
[2018-11-06] MEDS: HYDROGEN PEROXIDE 480 ML BOTTLE TP SCH ×2 (09:25→21:00)
[2018-11-07] VITALS (8 sets, daily range): BP systolic 98–114; BP diastolic 51–58
[2018-11-07] MEDS: ALBUTEROL FS 2.5 MG/3 ML VIAL.NEB NEB SCH ×4 (02:04→21:03)
[2018-11-07] MEDS: IPRATROPIUM NEB FS 0.5 MG/2.5 ML AMPUL.NEB IH SCH ×4 (02:04→21:03)
[2018-11-07] MEDS: LEVOTHYROXINE SODIUM 88 MCG TABLET GT SCH (05:20)
[2018-11-07] MEDS: OMEPRAZOLE 20 MG CAPSULE.DR GT SCH (05:20)
[2018-11-07] MEDS: METOCLOPRAMIDE HCL 10 MG TABLET GT SCH ×4 (05:20→23:36)
[2018-11-07] MEDS: HYDROGEN PEROXIDE 480 ML BOTTLE TP SCH ×2 (09:00→21:00)
[2018-11-07] MEDS: ASCORBIC ACID 500 MG TABLET GT SCH (09:27)
[2018-11-07] MEDS: MORPHINE SULFATE SOLN CONCENTRATED 20 MG/ML SL SCH ×2 (09:27→20:38)
[2018-11-07] MEDS: ACIDOPHILUS/BULGARICUS 1 EACH TAB.CHEW GT SCH (09:27)
[2018-11-07] MEDS: CARBOXYMETHYLCELLULOSE SODIUM 0.4 ML DROPERETTE EACHEYE SCH (09:27)
[2018-11-07] MEDS: ZINC SULFATE 220 MG CAPSULE GT SCH (09:27)
[2018-11-07] MEDS: PROSTAT (PYXIS) 30 ML UDC GT SCH ×3 (09:27→17:04)
[2018-11-07] MEDS: LEVETIRACETAM SOL (5 ML) 100 MG/ML UDC GT SCH ×2 (09:27→20:38)
[2018-11-07] MEDS: CHLORHEXIDINE GLUCONATE 15 ML UDC MM SCH ×2 (09:27→20:38)
[2018-11-07] MEDS: MULTIVIT W/MINERALS 1 TAB TABLET GT SCH (09:27)
[2018-11-07] MEDS: COD LIVER OIL/ZINC OXIDE 120 GM TUBE TP SCH ×2 (09:45→21:23)
[2018-11-07] MEDS: NYSTATIN/TRIAMCIN CREAM 15 GM TUBE TP SCH ×2 (09:45→21:24)
[2018-11-07] MEDS: THERAHONEY GEL 1.5 OZ TUBE TP SCH ×2 (09:45→21:24)
[2018-11-07] MEDS: GLUCERNA 1.2 1,000 ML BOTTLE GT PRN (21:51)
[2018-11-08] VITALS (7 sets, daily range): BP systolic 97–123; BP diastolic 46–58
[2018-11-08] MEDS: ALBUTEROL FS 2.5 MG/3 ML VIAL.NEB NEB SCH ×4 (02:24→19:36)
[2018-11-08] MEDS: IPRATROPIUM NEB FS 0.5 MG/2.5 ML AMPUL.NEB IH SCH ×4 (02:24→19:36)
[2018-11-08] MEDS: LEVOTHYROXINE SODIUM 88 MCG TABLET GT SCH (05:24)
[2018-11-08] MEDS: METOCLOPRAMIDE HCL 10 MG TABLET GT SCH ×4 (05:24→23:55)
[2018-11-08] MEDS: OMEPRAZOLE 20 MG CAPSULE.DR GT SCH (05:24)
[2018-11-08] MEDS: MORPHINE SULFATE SOLN CONCENTRATED 20 MG/ML SL SCH ×2 (08:38→20:54)
[2018-11-08] MEDS: ZINC SULFATE 220 MG CAPSULE GT SCH (09:11)
[2018-11-08] MEDS: ACIDOPHILUS/BULGARICUS 1 EACH TAB.CHEW GT SCH (09:11)
[2018-11-08] MEDS: LEVETIRACETAM SOL (5 ML) 100 MG/ML UDC GT SCH ×2 (09:11→20:53)
[2018-11-08] MEDS: CHLORHEXIDINE GLUCONATE 15 ML UDC MM SCH ×2 (09:11→20:53)
[2018-11-08] MEDS: ASCORBIC ACID 500 MG TABLET GT SCH (09:11)
[2018-11-08] MEDS: MULTIVIT W/MINERALS 1 TAB TABLET GT SCH (09:11)
[2018-11-08] MEDS: CARBOXYMETHYLCELLULOSE SODIUM 0.4 ML DROPERETTE EACHEYE SCH (09:11)
[2018-11-08] MEDS: PROSTAT (PYXIS) 30 ML UDC GT SCH ×3 (09:11→16:52)
[2018-11-08] MEDS: THERAHONEY GEL 1.5 OZ TUBE TP SCH ×2 (09:15→20:54)
[2018-11-08] MEDS: NYSTATIN/TRIAMCIN CREAM 15 GM TUBE TP SCH ×2 (09:15→20:54)
[2018-11-08] MEDS: COD LIVER OIL/ZINC OXIDE 120 GM TUBE TP SCH ×2 (09:15→20:54)
[2018-11-08] MEDS: HYDROGEN PEROXIDE 480 ML BOTTLE TP SCH ×2 (09:45→20:54)
[2018-11-08] MEDS: GLUCERNA 1.2 1,000 ML BOTTLE GT PRN (16:52)
[2018-11-09] VITALS (8 sets, daily range): BP systolic 96–114; BP diastolic 52–64
[2018-11-09] MEDS: IPRATROPIUM NEB FS 0.5 MG/2.5 ML AMPUL.NEB IH SCH ×4 (00:51→19:57)
[2018-11-09] MEDS: ALBUTEROL FS 2.5 MG/3 ML VIAL.NEB NEB SCH ×4 (00:51→19:57)
[2018-11-09] MEDS: OMEPRAZOLE 20 MG CAPSULE.DR GT SCH (05:06)
[2018-11-09] MEDS: METOCLOPRAMIDE HCL 10 MG TABLET GT SCH ×3 (05:06→17:41)
[2018-11-09] MEDS: LEVOTHYROXINE SODIUM 88 MCG TABLET GT SCH (05:06)
[2018-11-09] MEDS: ZINC SULFATE 220 MG CAPSULE GT SCH (09:23)
[2018-11-09] MEDS: MULTIVIT W/MINERALS 1 TAB TABLET GT SCH (09:23)
[2018-11-09] MEDS: CHLORHEXIDINE GLUCONATE 15 ML UDC MM SCH ×2 (09:23→20:45)
[2018-11-09] MEDS: ACIDOPHILUS/BULGARICUS 1 EACH TAB.CHEW GT SCH (09:23)
[2018-11-09] MEDS: COD LIVER OIL/ZINC OXIDE 120 GM TUBE TP SCH ×2 (09:23→20:46)
[2018-11-09] MEDS: NYSTATIN/TRIAMCIN CREAM 15 GM TUBE TP SCH ×2 (09:23→20:47)
[2018-11-09] MEDS: ASCORBIC ACID 500 MG TABLET GT SCH (09:23)
[2018-11-09] MEDS: LEVETIRACETAM SOL (5 ML) 100 MG/ML UDC GT SCH ×2 (09:23→20:45)
[2018-11-09] MEDS: PROSTAT (PYXIS) 30 ML UDC GT SCH ×3 (09:23→17:40)
[2018-11-09] MEDS: THERAHONEY GEL 1.5 OZ TUBE TP SCH ×2 (09:23→20:47)
[2018-11-09] MEDS: MORPHINE SULFATE SOLN CONCENTRATED 20 MG/ML SL SCH ×2 (09:24→20:46)
[2018-11-09] MEDS: HYDROGEN PEROXIDE 480 ML BOTTLE TP SCH ×3 (09:24→21:00)
[2018-11-09] MEDS: CARBOXYMETHYLCELLULOSE SODIUM 0.4 ML DROPERETTE EACHEYE SCH (09:25)
[2018-11-09] MEDS: GLUCERNA 1.2 1,000 ML BOTTLE GT PRN (17:51)
[2018-11-10] VITALS (9 sets, daily range): BP systolic 93–135; BP diastolic 42–72
[2018-11-10] MEDS: METOCLOPRAMIDE HCL 10 MG TABLET GT SCH ×5 (00:02→23:29)
[2018-11-10] MEDS: IPRATROPIUM NEB FS 0.5 MG/2.5 ML AMPUL.NEB IH SCH ×4 (00:46→19:38)
[2018-11-10] MEDS: ALBUTEROL FS 2.5 MG/3 ML VIAL.NEB NEB SCH ×4 (00:46→19:38)
[2018-11-10] MEDS: OMEPRAZOLE 20 MG CAPSULE.DR GT SCH (06:03)
[2018-11-10] MEDS: LEVOTHYROXINE SODIUM 88 MCG TABLET GT SCH (06:04)
[2018-11-10] MEDS: CHLORHEXIDINE GLUCONATE 15 ML UDC MM SCH ×2 (08:23→20:33)
[2018-11-10] MEDS: ZINC SULFATE 220 MG CAPSULE GT SCH (08:23)
[2018-11-10] MEDS: MORPHINE SULFATE SOLN CONCENTRATED 20 MG/ML SL SCH ×2 (08:23→20:33)
[2018-11-10] MEDS: CARBOXYMETHYLCELLULOSE SODIUM 0.4 ML DROPERETTE EACHEYE SCH (08:23)
[2018-11-10] MEDS: ACIDOPHILUS/BULGARICUS 1 EACH TAB.CHEW GT SCH (08:23)
[2018-11-10] MEDS: MULTIVIT W/MINERALS 1 TAB TABLET GT SCH (08:23)
[2018-11-10] MEDS: PROSTAT (PYXIS) 30 ML UDC GT SCH ×3 (08:23→17:22)
[2018-11-10] MEDS: ASCORBIC ACID 500 MG TABLET GT SCH (08:23)
[2018-11-10] MEDS: LEVETIRACETAM SOL (5 ML) 100 MG/ML UDC GT SCH ×2 (08:23→20:32)
[2018-11-10] MEDS: COD LIVER OIL/ZINC OXIDE 120 GM TUBE TP SCH ×2 (09:00→20:33)
[2018-11-10] MEDS: THERAHONEY GEL 1.5 OZ TUBE TP SCH ×2 (09:00→20:34)
[2018-11-10] MEDS: NYSTATIN/TRIAMCIN CREAM 15 GM TUBE TP SCH ×2 (09:00→20:34)
[2018-11-10] MEDS: HYDROGEN PEROXIDE 480 ML BOTTLE TP SCH ×2 (09:07→20:34)
[2018-11-11] VITALS (8 sets, daily range): BP systolic 102–113; BP diastolic 47–61
[2018-11-11] MEDS: ALBUTEROL FS 2.5 MG/3 ML VIAL.NEB NEB SCH ×4 (01:30→20:52)
[2018-11-11] MEDS: IPRATROPIUM NEB FS 0.5 MG/2.5 ML AMPUL.NEB IH SCH ×4 (01:30→20:52)
[2018-11-11] MEDS: OMEPRAZOLE 20 MG CAPSULE.DR GT SCH (05:06)
[2018-11-11] MEDS: LEVOTHYROXINE SODIUM 88 MCG TABLET GT SCH (05:07)
[2018-11-11] MEDS: METOCLOPRAMIDE HCL 10 MG TABLET GT SCH ×3 (05:07→17:14)
[2018-11-11] MEDS: MORPHINE SULFATE SOLN CONCENTRATED 20 MG/ML SL SCH ×2 (08:04→20:26)
[2018-11-11] MEDS: MULTIVIT W/MINERALS 1 TAB TABLET GT SCH (08:04)
[2018-11-11] MEDS: LEVETIRACETAM SOL (5 ML) 100 MG/ML UDC GT SCH ×2 (08:04→20:25)
[2018-11-11] MEDS: CARBOXYMETHYLCELLULOSE SODIUM 0.4 ML DROPERETTE EACHEYE SCH (08:04)
[2018-11-11] MEDS: CHLORHEXIDINE GLUCONATE 15 ML UDC MM SCH ×2 (08:04→20:26)
[2018-11-11] MEDS: ZINC SULFATE 220 MG CAPSULE GT SCH (08:05)
[2018-11-11] MEDS: ACIDOPHILUS/BULGARICUS 1 EACH TAB.CHEW GT SCH (08:05)
[2018-11-11] MEDS: PROSTAT (PYXIS) 30 ML UDC GT SCH ×3 (08:05→17:14)
[2018-11-11] MEDS: ASCORBIC ACID 500 MG TABLET GT SCH (08:05)
[2018-11-11] MEDS: NYSTATIN/TRIAMCIN CREAM 15 GM TUBE TP SCH ×2 (08:20→20:26)
[2018-11-11] MEDS: THERAHONEY GEL 1.5 OZ TUBE TP SCH ×2 (08:20→20:26)
[2018-11-11] MEDS: HYDROGEN PEROXIDE 480 ML BOTTLE TP SCH ×2 (08:20→23:09)
[2018-11-11] MEDS: COD LIVER OIL/ZINC OXIDE 120 GM TUBE TP SCH ×2 (08:21→20:26)
--- NOTE | 2018-11-11 11:34 | NUR ---
Seen and examined by Dr. Ross, NNO given. Patient up in tyson chair and taken to the patio by her daughter and put patient back to bed immediately after.
[2018-11-11] MEDS: GLUCERNA 1.2 1,000 ML BOTTLE GT PRN (17:18)
[2018-11-12] MEDS: METOCLOPRAMIDE HCL 10 MG TABLET GT SCH ×5 (00:14→23:35)
[2018-11-12 01:00] VITALS: BP 115/50
[2018-11-12] MEDS: ALBUTEROL FS 2.5 MG/3 ML VIAL.NEB NEB SCH ×4 (02:24→19:29)
[2018-11-12] MEDS: IPRATROPIUM NEB FS 0.5 MG/2.5 ML AMPUL.NEB IH SCH ×4 (02:24→19:29)
[2018-11-12] MEDS: OMEPRAZOLE 20 MG CAPSULE.DR GT SCH (05:28)
[2018-11-12] MEDS: LEVOTHYROXINE SODIUM 88 MCG TABLET GT SCH (05:28)
[2018-11-12 06:00] VITALS: BP 116/66
[2018-11-12 07:38] VITALS: BP 95/61
[2018-11-12] MEDS: HYDROGEN PEROXIDE 480 ML BOTTLE TP SCH ×2 (09:00→20:13)
--- NOTE | 2018-11-12 09:30 | NUR ---
Noted Jamil catheter bypassing dislodged with inflated balloon outside. New Jamil catheter inserted with draining clear yellow urine. Tolerated procedure well. Kept clean and comfortable all needs met and attended.
[2018-11-12] MEDS: MULTIVIT W/MINERALS 1 TAB TABLET GT SCH (09:53)
[2018-11-12] MEDS: ASCORBIC ACID 500 MG TABLET GT SCH (09:53)
[2018-11-12] MEDS: LEVETIRACETAM SOL (5 ML) 100 MG/ML UDC GT SCH ×2 (09:53→20:10)
[2018-11-12] MEDS: ACIDOPHILUS/BULGARICUS 1 EACH TAB.CHEW GT SCH (09:53)
[2018-11-12] MEDS: CARBOXYMETHYLCELLULOSE SODIUM 0.4 ML DROPERETTE EACHEYE SCH (09:53)
[2018-11-12] MEDS: PROSTAT (PYXIS) 30 ML UDC GT SCH ×3 (09:53→17:21)
[2018-11-12] MEDS: ZINC SULFATE 220 MG CAPSULE GT SCH (09:54)
[2018-11-12] MEDS: CHLORHEXIDINE GLUCONATE 15 ML UDC MM SCH ×2 (09:54→20:12)
[2018-11-12] MEDS: MORPHINE SULFATE SOLN CONCENTRATED 20 MG/ML SL SCH ×2 (09:54→20:12)
[2018-11-12] MEDS: NYSTATIN/TRIAMCIN CREAM 15 GM TUBE TP SCH ×2 (10:30→20:13)
[2018-11-12] MEDS: COD LIVER OIL/ZINC OXIDE 120 GM TUBE TP SCH ×2 (10:30→20:13)
[2018-11-12] MEDS: THERAHONEY GEL 1.5 OZ TUBE TP SCH ×2 (10:30→20:13)
[2018-11-12 18:05] VITALS: BP 118/56
[2018-11-12 20:00] VITALS: BP 100/64
[2018-11-12 21:00] VITALS: BP 100/64
[2018-11-13] VITALS (8 sets, daily range): BP systolic 69–126; BP diastolic 31–72
[2018-11-13] MEDS: ALBUTEROL FS 2.5 MG/3 ML VIAL.NEB NEB SCH ×4 (01:32→19:56)
[2018-11-13] MEDS: IPRATROPIUM NEB FS 0.5 MG/2.5 ML AMPUL.NEB IH SCH ×4 (01:32→19:56)
[2018-11-13] MEDS: LEVOTHYROXINE SODIUM 88 MCG TABLET GT SCH (05:34)
[2018-11-13] MEDS: OMEPRAZOLE 20 MG CAPSULE.DR GT SCH (05:34)
[2018-11-13] MEDS: METOCLOPRAMIDE HCL 10 MG TABLET GT SCH ×4 (05:34→23:27)
[2018-11-13] MEDS: ASCORBIC ACID 500 MG TABLET GT SCH (08:25)
[2018-11-13] MEDS: CARBOXYMETHYLCELLULOSE SODIUM 0.4 ML DROPERETTE EACHEYE SCH (08:25)
[2018-11-13] MEDS: LEVETIRACETAM SOL (5 ML) 100 MG/ML UDC GT SCH ×2 (08:25→20:33)
[2018-11-13] MEDS: ZINC SULFATE 220 MG CAPSULE GT SCH (08:25)
[2018-11-13] MEDS: MORPHINE SULFATE SOLN CONCENTRATED 20 MG/ML SL SCH ×2 (08:25→20:33)
[2018-11-13] MEDS: CHLORHEXIDINE GLUCONATE 15 ML UDC MM SCH ×2 (08:25→20:33)
[2018-11-13] MEDS: MULTIVIT W/MINERALS 1 TAB TABLET GT SCH (08:25)
[2018-11-13] MEDS: PROSTAT (PYXIS) 30 ML UDC GT SCH ×3 (08:25→16:44)
[2018-11-13] MEDS: ACIDOPHILUS/BULGARICUS 1 EACH TAB.CHEW GT SCH (08:25)
[2018-11-13] MEDS: GLUCERNA 1.2 1,000 ML BOTTLE GT PRN (08:28)
[2018-11-13] MEDS: COD LIVER OIL/ZINC OXIDE 120 GM TUBE TP SCH ×2 (09:00→21:31)
[2018-11-13] MEDS: THERAHONEY GEL 1.5 OZ TUBE TP SCH ×2 (09:00→21:31)
[2018-11-13] MEDS: NYSTATIN/TRIAMCIN CREAM 15 GM TUBE TP SCH ×2 (09:00→21:31)
[2018-11-13] MEDS: HYDROGEN PEROXIDE 480 ML BOTTLE TP SCH ×2 (09:00→21:00)
[2018-11-14] VITALS (8 sets, daily range): BP systolic 95–120; BP diastolic 49–64
[2018-11-14] MEDS: IPRATROPIUM NEB FS 0.5 MG/2.5 ML AMPUL.NEB IH SCH ×4 (01:30→19:49)
[2018-11-14] MEDS: ALBUTEROL FS 2.5 MG/3 ML VIAL.NEB NEB SCH ×4 (01:30→19:49)
[2018-11-14] MEDS: METOCLOPRAMIDE HCL 10 MG TABLET GT SCH ×4 (05:24→23:35)
[2018-11-14] MEDS: LEVOTHYROXINE SODIUM 88 MCG TABLET GT SCH (05:24)
[2018-11-14] MEDS: OMEPRAZOLE 20 MG CAPSULE.DR GT SCH (05:24)
[2018-11-14] MEDS: GLUCERNA 1.2 1,000 ML BOTTLE GT PRN (05:25)
[2018-11-14] MEDS: CHLORHEXIDINE GLUCONATE 15 ML UDC MM SCH ×2 (08:11→20:37)
[2018-11-14] MEDS: CARBOXYMETHYLCELLULOSE SODIUM 0.4 ML DROPERETTE EACHEYE SCH (08:11)
[2018-11-14] MEDS: MULTIVIT W/MINERALS 1 TAB TABLET GT SCH (08:11)
[2018-11-14] MEDS: PROSTAT (PYXIS) 30 ML UDC GT SCH ×3 (08:11→17:42)
[2018-11-14] MEDS: ASCORBIC ACID 500 MG TABLET GT SCH (08:11)
[2018-11-14] MEDS: ACIDOPHILUS/BULGARICUS 1 EACH TAB.CHEW GT SCH (08:11)
[2018-11-14] MEDS: ZINC SULFATE 220 MG CAPSULE GT SCH (08:11)
[2018-11-14] MEDS: LEVETIRACETAM SOL (5 ML) 100 MG/ML UDC GT SCH ×2 (08:11→20:37)
[2018-11-14] MEDS: MORPHINE SULFATE SOLN CONCENTRATED 20 MG/ML SL SCH ×2 (08:16→20:37)
[2018-11-14] MEDS: HYDROGEN PEROXIDE 480 ML BOTTLE TP SCH ×2 (08:48→21:04)
[2018-11-14] MEDS: COD LIVER OIL/ZINC OXIDE 120 GM TUBE TP SCH ×2 (09:00→21:29)
[2018-11-14] MEDS: THERAHONEY GEL 1.5 OZ TUBE TP SCH ×2 (09:00→21:29)
[2018-11-14] MEDS: NYSTATIN/TRIAMCIN CREAM 15 GM TUBE TP SCH ×2 (09:00→21:29)
[2018-11-15] VITALS (8 sets, daily range): BP systolic 101–136; BP diastolic 42–74
[2018-11-15] MEDS: ALBUTEROL FS 2.5 MG/3 ML VIAL.NEB NEB SCH ×4 (00:50→19:43)
[2018-11-15] MEDS: IPRATROPIUM NEB FS 0.5 MG/2.5 ML AMPUL.NEB IH SCH ×4 (00:50→19:43)
[2018-11-15] MEDS: METOCLOPRAMIDE HCL 10 MG TABLET GT SCH ×3 (05:25→17:34)
[2018-11-15] MEDS: LEVOTHYROXINE SODIUM 88 MCG TABLET GT SCH (05:25)
[2018-11-15] MEDS: OMEPRAZOLE 20 MG CAPSULE.DR GT SCH (05:25)
[2018-11-15] MEDS: GLUCERNA 1.2 1,000 ML BOTTLE GT PRN (05:25)
[2018-11-15] MEDS: HYDROGEN PEROXIDE 480 ML BOTTLE TP SCH ×2 (09:00→21:43)
[2018-11-15] MEDS: ZINC SULFATE 220 MG CAPSULE GT SCH (09:07)
[2018-11-15] MEDS: ASCORBIC ACID 500 MG TABLET GT SCH (09:07)
[2018-11-15] MEDS: PROSTAT (PYXIS) 30 ML UDC GT SCH ×3 (09:07→16:40)
[2018-11-15] MEDS: CARBOXYMETHYLCELLULOSE SODIUM 0.4 ML DROPERETTE EACHEYE SCH (09:07)
[2018-11-15] MEDS: LEVETIRACETAM SOL (5 ML) 100 MG/ML UDC GT SCH ×2 (09:07→21:00)
[2018-11-15] MEDS: ACIDOPHILUS/BULGARICUS 1 EACH TAB.CHEW GT SCH (09:07)
[2018-11-15] MEDS: MULTIVIT W/MINERALS 1 TAB TABLET GT SCH (09:07)
[2018-11-15] MEDS: CHLORHEXIDINE GLUCONATE 15 ML UDC MM SCH ×2 (09:07→21:00)
[2018-11-15] MEDS: NYSTATIN/TRIAMCIN CREAM 15 GM TUBE TP SCH ×2 (09:09→21:00)
[2018-11-15] MEDS: THERAHONEY GEL 1.5 OZ TUBE TP SCH ×2 (09:09→21:00)
[2018-11-15] MEDS: MORPHINE SULFATE SOLN CONCENTRATED 20 MG/ML SL SCH ×2 (09:09→21:00)
[2018-11-15] MEDS: COD LIVER OIL/ZINC OXIDE 120 GM TUBE TP SCH ×2 (09:10→21:00)
--- NOTE | 2018-11-15 09:30 | NUR ---
RT Monthly trach change done per protocol with new shiley 6 trach. Trach change done with no complications. Some bleeding at trach site which has stopped, with no redness. Equal bilateral breathe sounds and chest rise noted. Airway is clear and patent. Pt placed back on cool aerosol. No respiratory distress noted at this time, will continue to monitor. Addendum: 11/15/18 at 1138 by LIDYA POPE RT Amended: Links added.
--- NOTE | 2018-11-15 12:11 | NUR ---
JOSSE contacted [facility] [[address] [facility] [place] [place]; TEL:[phone] FAX: [phone]] to book a drive thru order taker appointment with . Per [facility] legal administrative secretary, Holly LOAIZA to fax a referral to them. JOSSE faxed over a referral for Dermatology appointment to Dr. Jiménez. JOSSE received and filed "completed" fax sheet. Per Holly, Dr. Jiménez will be out on vacation November 16 and Holly has given the referral to the intake department who will schedule an appointment upon Dr. Jiménez's return. Per Holly, no appointment date or time could be given. JOSSE to follow up .
--- NOTE | 2018-11-15 16:15 | NUR ---
JOSSE called patients responsible green party/daughter Reyna Galindo [phone] to invite them the IDT plan of care conference being held tomorrow November 16, 2018 in the activities room from 12:30pm-1:30pm. Per Reyna, she would like to participate in IDT plan of care meeting via phone conference. JOSSE communicated participation to charge nurse.
--- NOTE | 2018-11-15 16:33 | NUR ---
RT CHANGED THE TRACH,MILD BLEEDING AND EPISODE OF MILD VOMITING NOTED.PT TOLERATED WELL.
[2018-11-16] VITALS (7 sets, daily range): BP systolic 107–130; BP diastolic 56–76
[2018-11-16] MEDS: METOCLOPRAMIDE HCL 10 MG TABLET GT SCH ×4 (00:01→17:12)
[2018-11-16] MEDS: ALBUTEROL FS 2.5 MG/3 ML VIAL.NEB NEB SCH ×4 (01:14→19:48)
[2018-11-16] MEDS: IPRATROPIUM NEB FS 0.5 MG/2.5 ML AMPUL.NEB IH SCH ×4 (01:14→19:48)
[2018-11-16] MEDS: GLUCERNA 1.2 1,000 ML BOTTLE GT PRN (04:41)
[2018-11-16] MEDS: OMEPRAZOLE 20 MG CAPSULE.DR GT SCH (05:30)
[2018-11-16] MEDS: LEVOTHYROXINE SODIUM 88 MCG TABLET GT SCH (05:30)
[2018-11-16] MEDS: HYDROGEN PEROXIDE 480 ML BOTTLE TP SCH ×2 (07:26→21:00)
[2018-11-16] MEDS: THERAHONEY GEL 1.5 OZ TUBE TP SCH ×2 (09:00→21:43)
[2018-11-16] MEDS: NYSTATIN/TRIAMCIN CREAM 15 GM TUBE TP SCH ×2 (09:00→21:43)
[2018-11-16] MEDS: COD LIVER OIL/ZINC OXIDE 120 GM TUBE TP SCH ×2 (09:00→21:43)
[2018-11-16] MEDS: CARBOXYMETHYLCELLULOSE SODIUM 0.4 ML DROPERETTE EACHEYE SCH (09:27)
[2018-11-16] MEDS: PROSTAT (PYXIS) 30 ML UDC GT SCH ×3 (09:29→17:10)
[2018-11-16] MEDS: ASCORBIC ACID 500 MG TABLET GT SCH (09:29)
[2018-11-16] MEDS: ZINC SULFATE 220 MG CAPSULE GT SCH (09:29)
[2018-11-16] MEDS: ACIDOPHILUS/BULGARICUS 1 EACH TAB.CHEW GT SCH (09:41)
[2018-11-16] MEDS: MULTIVIT W/MINERALS 1 TAB TABLET GT SCH (09:46)
[2018-11-16] MEDS: LEVETIRACETAM SOL (5 ML) 100 MG/ML UDC GT SCH ×2 (09:46→21:15)
[2018-11-16] MEDS: MORPHINE SULFATE SOLN CONCENTRATED 20 MG/ML SL SCH ×2 (09:46→21:15)
[2018-11-16] MEDS: CHLORHEXIDINE GLUCONATE 15 ML UDC MM SCH ×2 (09:54→21:15)
--- NOTE | 2018-11-16 14:05 | NUR ---
INTERDISCIPLINARY PLAN OF CARE CONFERENCE was held today. IDT contact the patients responsible green party/ daughter Reyna Galindo [phone] as per her request and she participated via phone conference. IDT answered all of familys questions. Dr. Monet and interdisciplinary team discussed the current plan of care in detail. Current orders as well as treatments and medications were reviewed. IDT informed daughter that the patient is stable overall. IDT discussed treatment for sacral wound, no significant weight change. Charge nurse informed daughter that the resident is taken out to the patio 1x/week by ROMAN. Reyna expressed contentment and was grateful for update. See other disciplines IDT notes for further details.
--- NOTE | 2018-11-16 16:12 | NUR ---
RT NOTE: RECEIVED TRACH PT ON 28% COOL AEROSOL. NO RESPIRATORY DISTRESS NOTED. TRACH CHECKED SECURE AND PATENT. SXD AND LAVAGED PT Q ROUND AND NEEDED. TXS GIVEN ORDERED WITH NO ADVERSE REACTIONS NOTED. TRACH CARE DONE. SPARE TRACH AND AMBU BAG @ BEDSIDE.
[2018-11-17] VITALS (8 sets, daily range): BP systolic 113–136; BP diastolic 53–82
[2018-11-17] MEDS: METOCLOPRAMIDE HCL 10 MG TABLET GT SCH ×4 (00:20→18:48)
[2018-11-17] MEDS: ALBUTEROL FS 2.5 MG/3 ML VIAL.NEB NEB SCH ×4 (02:04→19:23)
[2018-11-17] MEDS: IPRATROPIUM NEB FS 0.5 MG/2.5 ML AMPUL.NEB IH SCH ×4 (02:04→19:23)
[2018-11-17] MEDS: OMEPRAZOLE 20 MG CAPSULE.DR GT SCH (05:17)
[2018-11-17] MEDS: GLUCERNA 1.2 1,000 ML BOTTLE GT PRN (05:17)
[2018-11-17] MEDS: LEVOTHYROXINE SODIUM 88 MCG TABLET GT SCH (05:17)
[2018-11-17] MEDS: HYDROGEN PEROXIDE 480 ML BOTTLE TP SCH ×2 (09:00→21:00)
[2018-11-17] MEDS: ASCORBIC ACID 500 MG TABLET GT SCH (09:22)
[2018-11-17] MEDS: LEVETIRACETAM SOL (5 ML) 100 MG/ML UDC GT SCH ×2 (09:22→20:50)
[2018-11-17] MEDS: ACIDOPHILUS/BULGARICUS 1 EACH TAB.CHEW GT SCH (09:22)
[2018-11-17] MEDS: CARBOXYMETHYLCELLULOSE SODIUM 0.4 ML DROPERETTE EACHEYE SCH (09:22)
[2018-11-17] MEDS: PROSTAT (PYXIS) 30 ML UDC GT SCH ×3 (09:22→17:00)
[2018-11-17] MEDS: MULTIVIT W/MINERALS 1 TAB TABLET GT SCH (09:22)
[2018-11-17] MEDS: CHLORHEXIDINE GLUCONATE 15 ML UDC MM SCH ×2 (09:23→20:50)
[2018-11-17] MEDS: COD LIVER OIL/ZINC OXIDE 120 GM TUBE TP SCH ×2 (09:23→21:24)
[2018-11-17] MEDS: NYSTATIN/TRIAMCIN CREAM 15 GM TUBE TP SCH ×2 (09:23→21:24)
[2018-11-17] MEDS: ZINC SULFATE 220 MG CAPSULE GT SCH (09:23)
[2018-11-17] MEDS: THERAHONEY GEL 1.5 OZ TUBE TP SCH ×2 (09:23→21:24)
[2018-11-17] MEDS: MORPHINE SULFATE SOLN CONCENTRATED 20 MG/ML SL SCH ×2 (09:23→20:50)
[2018-11-17] MEDS: BISACODYL SUPP (10 MG) 10 MG/SUPP.RECT SUPP.RECT RC PRN (18:48)
[2018-11-18] VITALS (7 sets, daily range): BP systolic 103–120; BP diastolic 58–65
[2018-11-18] MEDS: METOCLOPRAMIDE HCL 10 MG TABLET GT SCH ×4 (00:07→18:46)
[2018-11-18] MEDS: IPRATROPIUM NEB FS 0.5 MG/2.5 ML AMPUL.NEB IH SCH ×4 (00:46→19:50)
[2018-11-18] MEDS: ALBUTEROL FS 2.5 MG/3 ML VIAL.NEB NEB SCH ×4 (00:46→19:50)
[2018-11-18] MEDS: OMEPRAZOLE 20 MG CAPSULE.DR GT SCH (05:19)
[2018-11-18] MEDS: LEVOTHYROXINE SODIUM 88 MCG TABLET GT SCH (05:19)
[2018-11-18] MEDS: GLUCERNA 1.2 1,000 ML BOTTLE GT PRN (05:19)
[2018-11-18] MEDS: NYSTATIN/TRIAMCIN CREAM 15 GM TUBE TP SCH ×2 (09:00→20:17)
[2018-11-18] MEDS: COD LIVER OIL/ZINC OXIDE 120 GM TUBE TP SCH ×2 (09:00→20:17)
[2018-11-18] MEDS: HYDROGEN PEROXIDE 480 ML BOTTLE TP SCH ×2 (09:00→21:00)
[2018-11-18] MEDS: THERAHONEY GEL 1.5 OZ TUBE TP SCH ×2 (09:00→20:17)
[2018-11-18] MEDS: MULTIVIT W/MINERALS 1 TAB TABLET GT SCH (09:13)
[2018-11-18] MEDS: ASCORBIC ACID 500 MG TABLET GT SCH (09:13)
[2018-11-18] MEDS: ACIDOPHILUS/BULGARICUS 1 EACH TAB.CHEW GT SCH (09:13)
[2018-11-18] MEDS: CARBOXYMETHYLCELLULOSE SODIUM 0.4 ML DROPERETTE EACHEYE SCH (09:13)
[2018-11-18] MEDS: CHLORHEXIDINE GLUCONATE 15 ML UDC MM SCH ×2 (09:13→20:16)
[2018-11-18] MEDS: ZINC SULFATE 220 MG CAPSULE GT SCH (09:13)
[2018-11-18] MEDS: PROSTAT (PYXIS) 30 ML UDC GT SCH ×3 (09:13→17:00)
[2018-11-18] MEDS: LEVETIRACETAM SOL (5 ML) 100 MG/ML UDC GT SCH ×2 (09:13→20:16)
[2018-11-18] MEDS: MORPHINE SULFATE SOLN CONCENTRATED 20 MG/ML SL SCH ×2 (09:14→20:16)
[2018-11-19] VITALS (8 sets, daily range): BP systolic 110–139; BP diastolic 57–76
[2018-11-19] MEDS: METOCLOPRAMIDE HCL 10 MG TABLET GT SCH ×4 (00:47→18:00)
[2018-11-19] MEDS: ALBUTEROL FS 2.5 MG/3 ML VIAL.NEB NEB SCH ×4 (02:02→19:26)
[2018-11-19] MEDS: IPRATROPIUM NEB FS 0.5 MG/2.5 ML AMPUL.NEB IH SCH ×4 (02:02→19:26)
[2018-11-19] MEDS: LEVOTHYROXINE SODIUM 88 MCG TABLET GT SCH (05:07)
[2018-11-19] MEDS: GLUCERNA 1.2 1,000 ML BOTTLE GT PRN (05:08)
[2018-11-19] MEDS: OMEPRAZOLE 20 MG CAPSULE.DR GT SCH (05:08)
[2018-11-19] MEDS: COD LIVER OIL/ZINC OXIDE 120 GM TUBE TP SCH ×2 (08:57→20:24)
[2018-11-19] MEDS: ZINC SULFATE 220 MG CAPSULE GT SCH (08:57)
[2018-11-19] MEDS: ASCORBIC ACID 500 MG TABLET GT SCH (08:57)
[2018-11-19] MEDS: MULTIVIT W/MINERALS 1 TAB TABLET GT SCH (08:57)
[2018-11-19] MEDS: LEVETIRACETAM SOL (5 ML) 100 MG/ML UDC GT SCH ×2 (08:57→20:24)
[2018-11-19] MEDS: CHLORHEXIDINE GLUCONATE 15 ML UDC MM SCH ×2 (08:57→20:24)
[2018-11-19] MEDS: CARBOXYMETHYLCELLULOSE SODIUM 0.4 ML DROPERETTE EACHEYE SCH (08:57)
[2018-11-19] MEDS: ACIDOPHILUS/BULGARICUS 1 EACH TAB.CHEW GT SCH (08:57)
[2018-11-19] MEDS: MORPHINE SULFATE SOLN CONCENTRATED 20 MG/ML SL SCH ×2 (08:57→20:24)
[2018-11-19] MEDS: PROSTAT (PYXIS) 30 ML UDC GT SCH ×3 (08:57→16:54)
[2018-11-19] MEDS: THERAHONEY GEL 1.5 OZ TUBE TP SCH ×2 (08:58→20:25)
[2018-11-19] MEDS: NYSTATIN/TRIAMCIN CREAM 15 GM TUBE TP SCH ×2 (08:58→20:24)
[2018-11-19] MEDS: HYDROGEN PEROXIDE 480 ML BOTTLE TP SCH ×2 (09:00→21:00)
[2018-11-20] MEDS: METOCLOPRAMIDE HCL 10 MG TABLET GT SCH ×4 (00:40→18:05)
[2018-11-20 01:00] VITALS: BP 112/56
[2018-11-20] MEDS: IPRATROPIUM NEB FS 0.5 MG/2.5 ML AMPUL.NEB IH SCH ×4 (01:57→19:34)
[2018-11-20] MEDS: ALBUTEROL FS 2.5 MG/3 ML VIAL.NEB NEB SCH ×4 (01:57→19:34)
[2018-11-20 05:22] VITALS: BP 113/57
[2018-11-20] MEDS: LEVOTHYROXINE SODIUM 88 MCG TABLET GT SCH (05:24)
[2018-11-20] MEDS: OMEPRAZOLE 20 MG CAPSULE.DR GT SCH (05:24)
[2018-11-20] MEDS: GLUCERNA 1.2 1,000 ML BOTTLE GT PRN (05:29)
[2018-11-20] MEDS: CARBOXYMETHYLCELLULOSE SODIUM 0.4 ML DROPERETTE EACHEYE SCH (08:51)
[2018-11-20] MEDS: ASCORBIC ACID 500 MG TABLET GT SCH (08:51)
[2018-11-20] MEDS: ACIDOPHILUS/BULGARICUS 1 EACH TAB.CHEW GT SCH (08:51)
[2018-11-20] MEDS: MULTIVIT W/MINERALS 1 TAB TABLET GT SCH (08:51)
[2018-11-20] MEDS: PROSTAT (PYXIS) 30 ML UDC GT SCH ×3 (08:51→17:00)
[2018-11-20] MEDS: ZINC SULFATE 220 MG CAPSULE GT SCH (08:51)
[2018-11-20] MEDS: LEVETIRACETAM SOL (5 ML) 100 MG/ML UDC GT SCH ×2 (08:51→20:03)
[2018-11-20] MEDS: CHLORHEXIDINE GLUCONATE 15 ML UDC MM SCH ×2 (08:52→20:06)
[2018-11-20] MEDS: MORPHINE SULFATE SOLN CONCENTRATED 20 MG/ML SL SCH ×2 (08:52→20:03)
[2018-11-20] MEDS: NYSTATIN/TRIAMCIN CREAM 15 GM TUBE TP SCH ×2 (08:52→20:06)
[2018-11-20] MEDS: COD LIVER OIL/ZINC OXIDE 120 GM TUBE TP SCH ×2 (08:52→20:06)
[2018-11-20] MEDS: THERAHONEY GEL 1.5 OZ TUBE TP SCH ×2 (08:52→20:06)
[2018-11-20] MEDS: HYDROGEN PEROXIDE 480 ML BOTTLE TP SCH ×2 (09:00→21:00)
[2018-11-20 10:02] VITALS: BP 117/56
--- NOTE | 2018-11-20 11:26 | NUR ---
Invitation to FAMILY Support Group: SW called patients responsible constitution party/ daughter Reyna Galindo [phone] to invite them to attend the family support group being held tomorrow November 21, 2018 from 11 am-12pm in the old admin conference room in the first floor. The call went to voicemail and SW stated above mentioned details as well as SW contact number. No further action required.
[2018-11-20 18:08] VITALS: BP 119/68
[2018-11-20 20:01] VITALS: BP 122/59
[2018-11-20 21:11] VITALS: BP 122/59
[2018-11-21] VITALS (8 sets, daily range): BP systolic 100–122; BP diastolic 58–74
[2018-11-21] MEDS: METOCLOPRAMIDE HCL 10 MG TABLET GT SCH ×5 (00:27→23:38)
[2018-11-21] MEDS: ALBUTEROL FS 2.5 MG/3 ML VIAL.NEB NEB SCH ×4 (01:48→19:52)
[2018-11-21] MEDS: IPRATROPIUM NEB FS 0.5 MG/2.5 ML AMPUL.NEB IH SCH ×4 (01:48→19:52)
[2018-11-21] MEDS: OMEPRAZOLE 20 MG CAPSULE.DR GT SCH (05:25)
[2018-11-21] MEDS: LEVOTHYROXINE SODIUM 88 MCG TABLET GT SCH (05:25)
[2018-11-21] MEDS: GLUCERNA 1.2 1,000 ML BOTTLE GT PRN (05:27)
[2018-11-21] MEDS: ASCORBIC ACID 500 MG TABLET GT SCH (08:35)
[2018-11-21] MEDS: ACIDOPHILUS/BULGARICUS 1 EACH TAB.CHEW GT SCH (08:35)
[2018-11-21] MEDS: CARBOXYMETHYLCELLULOSE SODIUM 0.4 ML DROPERETTE EACHEYE SCH (08:35)
[2018-11-21] MEDS: MULTIVIT W/MINERALS 1 TAB TABLET GT SCH (08:35)
[2018-11-21] MEDS: PROSTAT (PYXIS) 30 ML UDC GT SCH ×3 (08:35→17:04)
[2018-11-21] MEDS: CHLORHEXIDINE GLUCONATE 15 ML UDC MM SCH ×2 (08:35→20:31)
[2018-11-21] MEDS: ZINC SULFATE 220 MG CAPSULE GT SCH (08:35)
[2018-11-21] MEDS: LEVETIRACETAM SOL (5 ML) 100 MG/ML UDC GT SCH ×2 (08:35→20:31)
[2018-11-21] MEDS: MORPHINE SULFATE SOLN CONCENTRATED 20 MG/ML SL SCH ×2 (08:36→20:31)
[2018-11-21] MEDS: HYDROGEN PEROXIDE 480 ML BOTTLE TP SCH ×2 (08:39→21:12)
[2018-11-21] MEDS: COD LIVER OIL/ZINC OXIDE 120 GM TUBE TP SCH ×2 (09:00→21:08)
[2018-11-21] MEDS: NYSTATIN/TRIAMCIN CREAM 15 GM TUBE TP SCH ×2 (09:00→21:08)
[2018-11-21] MEDS: THERAHONEY GEL 1.5 OZ TUBE TP SCH ×2 (09:00→21:08)
[2018-11-22] VITALS (7 sets, daily range): BP systolic 109–153; BP diastolic 53–74
[2018-11-22] MEDS: ALBUTEROL FS 2.5 MG/3 ML VIAL.NEB NEB SCH ×4 (01:32→19:01)
[2018-11-22] MEDS: IPRATROPIUM NEB FS 0.5 MG/2.5 ML AMPUL.NEB IH SCH ×4 (01:32→19:01)
[2018-11-22] MEDS: METOCLOPRAMIDE HCL 10 MG TABLET GT SCH ×3 (05:29→17:05)
[2018-11-22] MEDS: OMEPRAZOLE 20 MG CAPSULE.DR GT SCH (05:29)
[2018-11-22] MEDS: GLUCERNA 1.2 1,000 ML BOTTLE GT PRN (05:29)
[2018-11-22] MEDS: LEVOTHYROXINE SODIUM 88 MCG TABLET GT SCH (05:29)
[2018-11-22] MEDS: HYDROGEN PEROXIDE 480 ML BOTTLE TP SCH ×2 (08:05→21:00)
[2018-11-22] MEDS: CHLORHEXIDINE GLUCONATE 15 ML UDC MM SCH ×2 (08:24→20:38)
[2018-11-22] MEDS: ACIDOPHILUS/BULGARICUS 1 EACH TAB.CHEW GT SCH (08:24)
[2018-11-22] MEDS: MULTIVIT W/MINERALS 1 TAB TABLET GT SCH (08:24)
[2018-11-22] MEDS: ZINC SULFATE 220 MG CAPSULE GT SCH (08:24)
[2018-11-22] MEDS: CARBOXYMETHYLCELLULOSE SODIUM 0.4 ML DROPERETTE EACHEYE SCH (08:24)
[2018-11-22] MEDS: PROSTAT (PYXIS) 30 ML UDC GT SCH ×3 (08:24→17:05)
[2018-11-22] MEDS: ASCORBIC ACID 500 MG TABLET GT SCH (08:24)
[2018-11-22] MEDS: LEVETIRACETAM SOL (5 ML) 100 MG/ML UDC GT SCH ×2 (08:24→20:38)
[2018-11-22] MEDS: MORPHINE SULFATE SOLN CONCENTRATED 20 MG/ML SL SCH ×2 (08:24→20:39)
[2018-11-22] MEDS: THERAHONEY GEL 1.5 OZ TUBE TP SCH ×2 (09:30→21:11)
[2018-11-22] MEDS: NYSTATIN/TRIAMCIN CREAM 15 GM TUBE TP SCH ×2 (09:30→21:11)
[2018-11-22] MEDS: COD LIVER OIL/ZINC OXIDE 120 GM TUBE TP SCH ×2 (09:30→21:11)
[2018-11-23] VITALS (8 sets, daily range): BP systolic 95–143; BP diastolic 49–71
[2018-11-23] MEDS: METOCLOPRAMIDE HCL 10 MG TABLET GT SCH ×5 (00:19→23:25)
[2018-11-23] MEDS: ALBUTEROL FS 2.5 MG/3 ML VIAL.NEB NEB SCH ×4 (01:12→20:03)
[2018-11-23] MEDS: IPRATROPIUM NEB FS 0.5 MG/2.5 ML AMPUL.NEB IH SCH ×4 (01:12→20:03)
[2018-11-23] MEDS: LEVOTHYROXINE SODIUM 88 MCG TABLET GT SCH (05:21)
[2018-11-23] MEDS: OMEPRAZOLE 20 MG CAPSULE.DR GT SCH (05:21)
[2018-11-23] MEDS: GLUCERNA 1.2 1,000 ML BOTTLE GT PRN ×2 (05:21→23:25)
[2018-11-23] MEDS: COD LIVER OIL/ZINC OXIDE 120 GM TUBE TP SCH ×2 (09:00→21:18)
[2018-11-23] MEDS: NYSTATIN/TRIAMCIN CREAM 15 GM TUBE TP SCH ×2 (09:00→21:18)
[2018-11-23] MEDS: THERAHONEY GEL 1.5 OZ TUBE TP SCH ×2 (09:00→21:18)
[2018-11-23] MEDS: HYDROGEN PEROXIDE 480 ML BOTTLE TP SCH ×2 (09:11→20:46)
[2018-11-23] MEDS: PROSTAT (PYXIS) 30 ML UDC GT SCH ×3 (09:43→17:01)
[2018-11-23] MEDS: LEVETIRACETAM SOL (5 ML) 100 MG/ML UDC GT SCH ×2 (09:43→20:39)
[2018-11-23] MEDS: CARBOXYMETHYLCELLULOSE SODIUM 0.4 ML DROPERETTE EACHEYE SCH (09:43)
[2018-11-23] MEDS: ACIDOPHILUS/BULGARICUS 1 EACH TAB.CHEW GT SCH (09:43)
[2018-11-23] MEDS: ASCORBIC ACID 500 MG TABLET GT SCH (09:44)
[2018-11-23] MEDS: CHLORHEXIDINE GLUCONATE 15 ML UDC MM SCH ×2 (09:44→21:18)
[2018-11-23] MEDS: MORPHINE SULFATE SOLN CONCENTRATED 20 MG/ML SL SCH ×2 (09:44→20:40)
[2018-11-23] MEDS: ZINC SULFATE 220 MG CAPSULE GT SCH (09:44)
[2018-11-23] MEDS: MULTIVIT W/MINERALS 1 TAB TABLET GT SCH (09:44)
[2018-11-24] VITALS (8 sets, daily range): BP systolic 96–127; BP diastolic 48–63
[2018-11-24] MEDS: ALBUTEROL FS 2.5 MG/3 ML VIAL.NEB NEB SCH ×4 (01:45→19:41)
[2018-11-24] MEDS: IPRATROPIUM NEB FS 0.5 MG/2.5 ML AMPUL.NEB IH SCH ×4 (01:45→19:41)
[2018-11-24] MEDS: LEVOTHYROXINE SODIUM 88 MCG TABLET GT SCH (05:36)
[2018-11-24] MEDS: OMEPRAZOLE 20 MG CAPSULE.DR GT SCH (05:36)
[2018-11-24] MEDS: METOCLOPRAMIDE HCL 10 MG TABLET GT SCH ×3 (05:36→17:02)
[2018-11-24] MEDS: COD LIVER OIL/ZINC OXIDE 120 GM TUBE TP SCH ×2 (09:00→21:49)
[2018-11-24] MEDS: THERAHONEY GEL 1.5 OZ TUBE TP SCH ×2 (09:00→21:49)
[2018-11-24] MEDS: NYSTATIN/TRIAMCIN CREAM 15 GM TUBE TP SCH ×2 (09:00→21:49)
[2018-11-24] MEDS: HYDROGEN PEROXIDE 480 ML BOTTLE TP SCH ×2 (09:00→19:41)
[2018-11-24] MEDS: CHLORHEXIDINE GLUCONATE 15 ML UDC MM SCH ×2 (09:18→21:49)
[2018-11-24] MEDS: MULTIVIT W/MINERALS 1 TAB TABLET GT SCH (09:18)
[2018-11-24] MEDS: ZINC SULFATE 220 MG CAPSULE GT SCH (09:18)
[2018-11-24] MEDS: ASCORBIC ACID 500 MG TABLET GT SCH (09:18)
[2018-11-24] MEDS: ACIDOPHILUS/BULGARICUS 1 EACH TAB.CHEW GT SCH (09:18)
[2018-11-24] MEDS: PROSTAT (PYXIS) 30 ML UDC GT SCH ×3 (09:18→16:55)
[2018-11-24] MEDS: CARBOXYMETHYLCELLULOSE SODIUM 0.4 ML DROPERETTE EACHEYE SCH (09:18)
[2018-11-24] MEDS: LEVETIRACETAM SOL (5 ML) 100 MG/ML UDC GT SCH ×2 (09:18→21:49)
[2018-11-24] MEDS: MORPHINE SULFATE SOLN CONCENTRATED 20 MG/ML SL SCH ×2 (09:19→21:49)
[2018-11-25] VITALS (7 sets, daily range): BP systolic 101–111; BP diastolic 54–68
[2018-11-25] MEDS: METOCLOPRAMIDE HCL 10 MG TABLET GT SCH ×5 (00:09→23:57)
[2018-11-25] MEDS: ALBUTEROL FS 2.5 MG/3 ML VIAL.NEB NEB SCH ×4 (01:33→19:53)
[2018-11-25] MEDS: IPRATROPIUM NEB FS 0.5 MG/2.5 ML AMPUL.NEB IH SCH ×4 (01:33→19:53)
--- NOTE | 2018-11-25 04:12 | NUR ---
PATIENT RECEIVED ON 28% AEROSOL T-TUBE, TOLERATING WITH NO DISTRESS/SOB NOTED. SUCTIONED FOR MINIMAL, THIN, YELLOW-CREAM SECRETIONS. GIVEN IN-LINE TREATMENTS WITH NO ADVERSE REACTIONS. AMBU BAG AT BEDSIDE. Addendum: 11/25/18 at 0414 by IVAN TOLBERT RT Amended: Links added.
[2018-11-25] MEDS: OMEPRAZOLE 20 MG CAPSULE.DR GT SCH (05:31)
[2018-11-25] MEDS: LEVOTHYROXINE SODIUM 88 MCG TABLET GT SCH (05:31)
[2018-11-25] MEDS: PROSTAT (PYXIS) 30 ML UDC GT SCH ×3 (08:39→17:44)
[2018-11-25] MEDS: ASCORBIC ACID 500 MG TABLET GT SCH (08:39)
[2018-11-25] MEDS: ZINC SULFATE 220 MG CAPSULE GT SCH (08:39)
[2018-11-25] MEDS: CARBOXYMETHYLCELLULOSE SODIUM 0.4 ML DROPERETTE EACHEYE SCH (08:39)
[2018-11-25] MEDS: MULTIVIT W/MINERALS 1 TAB TABLET GT SCH (08:39)
[2018-11-25] MEDS: CHLORHEXIDINE GLUCONATE 15 ML UDC MM SCH ×2 (08:39→21:00)
[2018-11-25] MEDS: ACIDOPHILUS/BULGARICUS 1 EACH TAB.CHEW GT SCH (08:39)
[2018-11-25] MEDS: MORPHINE SULFATE SOLN CONCENTRATED 20 MG/ML SL SCH ×2 (08:39→21:00)
[2018-11-25] MEDS: LEVETIRACETAM SOL (5 ML) 100 MG/ML UDC GT SCH ×2 (08:39→21:00)
[2018-11-25] MEDS: HYDROGEN PEROXIDE 480 ML BOTTLE TP SCH ×2 (09:00→21:00)
[2018-11-25] MEDS: COD LIVER OIL/ZINC OXIDE 120 GM TUBE TP SCH ×2 (09:02→21:00)
[2018-11-25] MEDS: NYSTATIN/TRIAMCIN CREAM 15 GM TUBE TP SCH ×2 (09:03→21:01)
[2018-11-25] MEDS: THERAHONEY GEL 1.5 OZ TUBE TP SCH ×2 (09:03→21:01)
[2018-11-25] MEDS: GLUCERNA 1.2 1,000 ML BOTTLE GT PRN (16:59)
[2018-11-26] VITALS (7 sets, daily range): BP systolic 116–130; BP diastolic 52–61
[2018-11-26] MEDS: IPRATROPIUM NEB FS 0.5 MG/2.5 ML AMPUL.NEB IH SCH ×4 (01:29→19:21)
[2018-11-26] MEDS: ALBUTEROL FS 2.5 MG/3 ML VIAL.NEB NEB SCH ×4 (01:29→19:21)
[2018-11-26] MEDS: METOCLOPRAMIDE HCL 10 MG TABLET GT SCH ×3 (05:27→18:17)
[2018-11-26] MEDS: LEVOTHYROXINE SODIUM 88 MCG TABLET GT SCH (05:27)
[2018-11-26] MEDS: OMEPRAZOLE 20 MG CAPSULE.DR GT SCH (05:27)
[2018-11-26] MEDS: ZINC SULFATE 220 MG CAPSULE GT SCH (08:28)
[2018-11-26] MEDS: MULTIVIT W/MINERALS 1 TAB TABLET GT SCH (08:28)
[2018-11-26] MEDS: LEVETIRACETAM SOL (5 ML) 100 MG/ML UDC GT SCH ×2 (08:28→20:14)
[2018-11-26] MEDS: ACIDOPHILUS/BULGARICUS 1 EACH TAB.CHEW GT SCH (08:28)
[2018-11-26] MEDS: CHLORHEXIDINE GLUCONATE 15 ML UDC MM SCH ×2 (08:28→20:15)
[2018-11-26] MEDS: CARBOXYMETHYLCELLULOSE SODIUM 0.4 ML DROPERETTE EACHEYE SCH (08:28)
[2018-11-26] MEDS: MORPHINE SULFATE SOLN CONCENTRATED 20 MG/ML SL SCH ×2 (08:28→20:14)
[2018-11-26] MEDS: PROSTAT (PYXIS) 30 ML UDC GT SCH ×3 (08:28→17:00)
[2018-11-26] MEDS: ASCORBIC ACID 500 MG TABLET GT SCH (08:28)
[2018-11-26] MEDS: THERAHONEY GEL 1.5 OZ TUBE TP SCH ×2 (09:00→20:15)
[2018-11-26] MEDS: COD LIVER OIL/ZINC OXIDE 120 GM TUBE TP SCH ×2 (09:00→20:15)
[2018-11-26] MEDS: NYSTATIN/TRIAMCIN CREAM 15 GM TUBE TP SCH ×2 (09:00→20:15)
[2018-11-26] MEDS: HYDROGEN PEROXIDE 480 ML BOTTLE TP SCH ×2 (09:00→21:00)
--- NOTE | 2018-11-26 15:00 | NUR ---
Seen and examined by Dr. Darryl Winters, no new order given.
[2018-11-26] MEDS: GLUCERNA 1.2 1,000 ML BOTTLE GT PRN (15:30)
[2018-11-27] VITALS (7 sets, daily range): BP systolic 100–130; BP diastolic 45–59
[2018-11-27] MEDS: METOCLOPRAMIDE HCL 10 MG TABLET GT SCH ×4 (00:24→17:49)
[2018-11-27] MEDS: IPRATROPIUM NEB FS 0.5 MG/2.5 ML AMPUL.NEB IH SCH ×4 (01:44→19:26)
[2018-11-27] MEDS: ALBUTEROL FS 2.5 MG/3 ML VIAL.NEB NEB SCH ×4 (01:44→19:26)
[2018-11-27] MEDS: LEVOTHYROXINE SODIUM 88 MCG TABLET GT SCH (05:24)
[2018-11-27] MEDS: OMEPRAZOLE 20 MG CAPSULE.DR GT SCH (05:24)
[2018-11-27] MEDS: HYDROGEN PEROXIDE 480 ML BOTTLE TP SCH ×2 (08:26→20:06)
[2018-11-27] MEDS: CARBOXYMETHYLCELLULOSE SODIUM 0.4 ML DROPERETTE EACHEYE SCH (08:56)
[2018-11-27] MEDS: ASCORBIC ACID 500 MG TABLET GT SCH (08:57)
[2018-11-27] MEDS: LEVETIRACETAM SOL (5 ML) 100 MG/ML UDC GT SCH ×2 (08:57→20:05)
[2018-11-27] MEDS: ACIDOPHILUS/BULGARICUS 1 EACH TAB.CHEW GT SCH (08:57)
[2018-11-27] MEDS: PROSTAT (PYXIS) 30 ML UDC GT SCH ×3 (08:57→17:50)
[2018-11-27] MEDS: MULTIVIT W/MINERALS 1 TAB TABLET GT SCH (08:57)
[2018-11-27] MEDS: CHLORHEXIDINE GLUCONATE 15 ML UDC MM SCH ×2 (08:57→20:06)
[2018-11-27] MEDS: ZINC SULFATE 220 MG CAPSULE GT SCH (08:57)
[2018-11-27] MEDS: MORPHINE SULFATE SOLN CONCENTRATED 20 MG/ML SL SCH ×2 (08:58→20:06)
[2018-11-27] MEDS: COD LIVER OIL/ZINC OXIDE 120 GM TUBE TP SCH ×2 (09:30→20:06)
[2018-11-27] MEDS: NYSTATIN/TRIAMCIN CREAM 15 GM TUBE TP SCH ×2 (09:30→20:07)
[2018-11-27] MEDS: THERAHONEY GEL 1.5 OZ TUBE TP SCH ×2 (09:30→20:07)
[2018-11-27] MEDS: GLUCERNA 1.2 1,000 ML BOTTLE GT PRN (17:53)
[2018-11-28] VITALS (7 sets, daily range): BP systolic 101–127; BP diastolic 54–70
[2018-11-28] MEDS: METOCLOPRAMIDE HCL 10 MG TABLET GT SCH ×4 (00:34→17:25)
[2018-11-28] MEDS: ALBUTEROL FS 2.5 MG/3 ML VIAL.NEB NEB SCH ×4 (01:10→19:23)
[2018-11-28] MEDS: IPRATROPIUM NEB FS 0.5 MG/2.5 ML AMPUL.NEB IH SCH ×4 (01:10→19:23)
[2018-11-28] MEDS: OMEPRAZOLE 20 MG CAPSULE.DR GT SCH (05:21)
[2018-11-28] MEDS: LEVOTHYROXINE SODIUM 88 MCG TABLET GT SCH (05:21)
[2018-11-28] MEDS: CARBOXYMETHYLCELLULOSE SODIUM 0.4 ML DROPERETTE EACHEYE SCH (08:10)
[2018-11-28] MEDS: LEVETIRACETAM SOL (5 ML) 100 MG/ML UDC GT SCH ×2 (08:10→21:28)
[2018-11-28] MEDS: PROSTAT (PYXIS) 30 ML UDC GT SCH ×3 (08:10→17:25)
[2018-11-28] MEDS: MULTIVIT W/MINERALS 1 TAB TABLET GT SCH (08:10)
[2018-11-28] MEDS: ACIDOPHILUS/BULGARICUS 1 EACH TAB.CHEW GT SCH (08:10)
[2018-11-28] MEDS: ZINC SULFATE 220 MG CAPSULE GT SCH (08:11)
[2018-11-28] MEDS: ASCORBIC ACID 500 MG TABLET GT SCH (08:11)
[2018-11-28] MEDS: CHLORHEXIDINE GLUCONATE 15 ML UDC MM SCH ×2 (08:11→21:28)
[2018-11-28] MEDS: MORPHINE SULFATE SOLN CONCENTRATED 20 MG/ML SL SCH ×2 (08:11→21:28)
--- NOTE | 2018-11-28 08:30 | NUR ---
Seen and examined by Dr. Ross, no new order given.
[2018-11-28] MEDS: COD LIVER OIL/ZINC OXIDE 120 GM TUBE TP SCH ×2 (08:41→21:28)
[2018-11-28] MEDS: NYSTATIN/TRIAMCIN CREAM 15 GM TUBE TP SCH ×2 (08:41→21:45)
[2018-11-28] MEDS: THERAHONEY GEL 1.5 OZ TUBE TP SCH ×2 (08:41→21:45)
[2018-11-28] MEDS: HYDROGEN PEROXIDE 480 ML BOTTLE TP SCH ×2 (09:00→19:23)
--- NOTE | 2018-11-28 13:00 | NUR ---
Seen and examined by Becca Smith, no new order given.
[2018-11-28] MEDS: GLUCERNA 1.2 1,000 ML BOTTLE GT PRN (13:43)
[2018-11-29] VITALS (8 sets, daily range): BP systolic 110–125; BP diastolic 57–79
[2018-11-29] MEDS: METOCLOPRAMIDE HCL 10 MG TABLET GT SCH ×5 (00:11→23:49)
[2018-11-29] MEDS: IPRATROPIUM NEB FS 0.5 MG/2.5 ML AMPUL.NEB IH SCH ×4 (01:22→20:05)
[2018-11-29] MEDS: ALBUTEROL FS 2.5 MG/3 ML VIAL.NEB NEB SCH ×4 (01:22→20:05)
--- NOTE | 2018-11-29 03:40 | NUR ---
PATIENT RECEIVED ON 28% AEROSOL T-TUBE, TOLERATING WITH NO DISRTESS/SOB NOTED. SUCTIONED PRN FOR MINIMAL, THICK, YELLOW-CREAM SECRETIONS. GIVEN IN-LINE TREATMENTS WITH NO ADVERSE REACTIONS. AMBU BAG AT BEDSIDE. PULSE OXIMETER ALARM AUDIBLE AND VISIBLE. Addendum: 11/29/18 at 0342 by IVAN TOLBERT RT Amended: Links added.
[2018-11-29] MEDS: OMEPRAZOLE 20 MG CAPSULE.DR GT SCH (05:45)
[2018-11-29] MEDS: LEVOTHYROXINE SODIUM 88 MCG TABLET GT SCH (05:45)
[2018-11-29] MEDS: HYDROGEN PEROXIDE 480 ML BOTTLE TP SCH ×2 (08:05→20:29)
[2018-11-29] MEDS: CARBOXYMETHYLCELLULOSE SODIUM 0.4 ML DROPERETTE EACHEYE SCH (08:27)
[2018-11-29] MEDS: LEVETIRACETAM SOL (5 ML) 100 MG/ML UDC GT SCH ×2 (08:27→21:12)
[2018-11-29] MEDS: ZINC SULFATE 220 MG CAPSULE GT SCH (08:28)
[2018-11-29] MEDS: ACIDOPHILUS/BULGARICUS 1 EACH TAB.CHEW GT SCH (08:28)
[2018-11-29] MEDS: ASCORBIC ACID 500 MG TABLET GT SCH (08:28)
[2018-11-29] MEDS: MULTIVIT W/MINERALS 1 TAB TABLET GT SCH (08:28)
[2018-11-29] MEDS: PROSTAT (PYXIS) 30 ML UDC GT SCH ×3 (08:28→17:32)
[2018-11-29] MEDS: CHLORHEXIDINE GLUCONATE 15 ML UDC MM SCH ×2 (08:29→21:12)
[2018-11-29] MEDS: MORPHINE SULFATE SOLN CONCENTRATED 20 MG/ML SL SCH ×2 (08:29→21:12)
[2018-11-29] MEDS: NYSTATIN/TRIAMCIN CREAM 15 GM TUBE TP SCH ×2 (09:00→21:24)
[2018-11-29] MEDS: THERAHONEY GEL 1.5 OZ TUBE TP SCH ×2 (09:00→21:24)
[2018-11-29] MEDS: COD LIVER OIL/ZINC OXIDE 120 GM TUBE TP SCH ×2 (09:00→21:13)
[2018-11-29] MEDS: GLUCERNA 1.2 1,000 ML BOTTLE GT PRN (16:05)
--- NOTE | 2018-11-29 21:19 | NUR ---
Seen and examined by Becca COX
[2018-11-30] VITALS (8 sets, daily range): BP systolic 94–120; BP diastolic 52–73
[2018-11-30] MEDS: IPRATROPIUM NEB FS 0.5 MG/2.5 ML AMPUL.NEB IH SCH ×4 (01:27→19:59)
[2018-11-30] MEDS: ALBUTEROL FS 2.5 MG/3 ML VIAL.NEB NEB SCH ×4 (01:28→19:59)
[2018-11-30] MEDS: OMEPRAZOLE 20 MG CAPSULE.DR GT SCH (05:46)
[2018-11-30] MEDS: METOCLOPRAMIDE HCL 10 MG TABLET GT SCH ×4 (05:46→23:57)
[2018-11-30] MEDS: LEVOTHYROXINE SODIUM 88 MCG TABLET GT SCH (05:46)
[2018-11-30] MEDS: LEVETIRACETAM SOL (5 ML) 100 MG/ML UDC GT SCH ×2 (08:39→21:10)
[2018-11-30] MEDS: ASCORBIC ACID 500 MG TABLET GT SCH (08:39)
[2018-11-30] MEDS: ACIDOPHILUS/BULGARICUS 1 EACH TAB.CHEW GT SCH (08:39)
[2018-11-30] MEDS: CARBOXYMETHYLCELLULOSE SODIUM 0.4 ML DROPERETTE EACHEYE SCH (08:39)
[2018-11-30] MEDS: PROSTAT (PYXIS) 30 ML UDC GT SCH ×3 (08:39→17:00)
[2018-11-30] MEDS: CHLORHEXIDINE GLUCONATE 15 ML UDC MM SCH ×2 (08:39→21:10)
[2018-11-30] MEDS: MULTIVIT W/MINERALS 1 TAB TABLET GT SCH (08:39)
[2018-11-30] MEDS: ZINC SULFATE 220 MG CAPSULE GT SCH (08:39)
[2018-11-30] MEDS: MORPHINE SULFATE SOLN CONCENTRATED 20 MG/ML SL SCH ×2 (08:40→21:11)
[2018-11-30] MEDS: NYSTATIN/TRIAMCIN CREAM 15 GM TUBE TP SCH ×2 (09:00→21:11)
[2018-11-30] MEDS: THERAHONEY GEL 1.5 OZ TUBE TP SCH ×2 (09:00→21:11)
[2018-11-30] MEDS: HYDROGEN PEROXIDE 480 ML BOTTLE TP SCH ×2 (09:00→20:54)
[2018-11-30] MEDS: COD LIVER OIL/ZINC OXIDE 120 GM TUBE TP SCH ×2 (09:00→21:11)
[2018-12-01] VITALS (8 sets, daily range): BP systolic 102–120; BP diastolic 57–65
[2018-12-01] MEDS: ALBUTEROL FS 2.5 MG/3 ML VIAL.NEB NEB SCH ×4 (01:53→19:36)
[2018-12-01] MEDS: IPRATROPIUM NEB FS 0.5 MG/2.5 ML AMPUL.NEB IH SCH ×4 (01:53→19:36)
[2018-12-01] MEDS: METOCLOPRAMIDE HCL 10 MG TABLET GT SCH ×4 (06:13→23:23)
[2018-12-01] MEDS: LEVOTHYROXINE SODIUM 88 MCG TABLET GT SCH (06:13)
[2018-12-01] MEDS: OMEPRAZOLE 20 MG CAPSULE.DR GT SCH (06:13)
[2018-12-01] MEDS: ACIDOPHILUS/BULGARICUS 1 EACH TAB.CHEW GT SCH (09:31)
[2018-12-01] MEDS: LEVETIRACETAM SOL (5 ML) 100 MG/ML UDC GT SCH ×2 (09:31→21:13)
[2018-12-01] MEDS: CARBOXYMETHYLCELLULOSE SODIUM 0.4 ML DROPERETTE EACHEYE SCH (09:31)
[2018-12-01] MEDS: MULTIVIT W/MINERALS 1 TAB TABLET GT SCH (09:31)
[2018-12-01] MEDS: PROSTAT (PYXIS) 30 ML UDC GT SCH ×3 (09:31→17:00)
[2018-12-01] MEDS: ASCORBIC ACID 500 MG TABLET GT SCH (09:32)
[2018-12-01] MEDS: MORPHINE SULFATE SOLN CONCENTRATED 20 MG/ML SL SCH ×2 (09:32→21:13)
[2018-12-01] MEDS: ZINC SULFATE 220 MG CAPSULE GT SCH (09:32)
[2018-12-01] MEDS: CHLORHEXIDINE GLUCONATE 15 ML UDC MM SCH ×2 (09:32→21:13)
[2018-12-01] MEDS: COD LIVER OIL/ZINC OXIDE 120 GM TUBE TP SCH ×2 (09:32→21:13)
[2018-12-01] MEDS: HYDROGEN PEROXIDE 480 ML BOTTLE TP SCH ×2 (09:40→21:24)
[2018-12-01] MEDS: GLUCERNA 1.2 1,000 ML BOTTLE GT PRN (13:08)
[2018-12-02] MEDS: IPRATROPIUM NEB FS 0.5 MG/2.5 ML AMPUL.NEB IH SCH ×4 (01:42→19:33)
[2018-12-02] MEDS: ALBUTEROL FS 2.5 MG/3 ML VIAL.NEB NEB SCH ×4 (01:42→19:33)
[2018-12-02] MEDS: LEVOTHYROXINE SODIUM 88 MCG TABLET GT SCH (05:20)
[2018-12-02] MEDS: METOCLOPRAMIDE HCL 10 MG TABLET GT SCH ×3 (05:20→17:23)
[2018-12-02] MEDS: OMEPRAZOLE 20 MG CAPSULE.DR GT SCH (05:20)
[2018-12-02] MEDS: MULTIVIT W/MINERALS 1 TAB TABLET GT SCH (09:47)
[2018-12-02] MEDS: ZINC SULFATE 220 MG CAPSULE GT SCH (09:48)
[2018-12-02] MEDS: ASCORBIC ACID 500 MG TABLET GT SCH (09:48)
[2018-12-02] MEDS: MORPHINE SULFATE SOLN CONCENTRATED 20 MG/ML SL SCH ×2 (09:49→19:54)
[2018-12-02] MEDS: PROSTAT (PYXIS) 30 ML UDC GT SCH ×3 (09:49→16:00)
[2018-12-02] MEDS: ACIDOPHILUS/BULGARICUS 1 EACH TAB.CHEW GT SCH (09:49)
[2018-12-02] MEDS: CHLORHEXIDINE GLUCONATE 15 ML UDC MM SCH ×2 (09:49→19:53)
[2018-12-02] MEDS: HYDROGEN PEROXIDE 480 ML BOTTLE TP SCH ×3 (09:50→21:00)
[2018-12-02] MEDS: COD LIVER OIL/ZINC OXIDE 120 GM TUBE TP SCH ×2 (09:50→19:56)
[2018-12-02] MEDS: CARBOXYMETHYLCELLULOSE SODIUM 0.4 ML DROPERETTE EACHEYE SCH (09:51)
[2018-12-02] MEDS: LEVETIRACETAM SOL (5 ML) 100 MG/ML UDC GT SCH ×2 (09:52→19:53)
[2018-12-02] MEDS: GLUCERNA 1.2 1,000 ML BOTTLE GT PRN (09:55)
[2018-12-02 12:03] VITALS: BP 97/49
[2018-12-02 20:45] VITALS: BP 102/60
[2018-12-03] MEDS: METOCLOPRAMIDE HCL 10 MG TABLET GT SCH ×5 (00:11→23:54)
[2018-12-03] MEDS: IPRATROPIUM NEB FS 0.5 MG/2.5 ML AMPUL.NEB IH SCH ×4 (01:52→19:31)
[2018-12-03] MEDS: ALBUTEROL FS 2.5 MG/3 ML VIAL.NEB NEB SCH ×4 (01:52→19:31)
[2018-12-03] MEDS: OMEPRAZOLE 20 MG CAPSULE.DR GT SCH (05:10)
[2018-12-03] MEDS: LEVOTHYROXINE SODIUM 88 MCG TABLET GT SCH (05:10)
[2018-12-03] MEDS: ASCORBIC ACID 500 MG TABLET GT SCH (08:12)
[2018-12-03] MEDS: LEVETIRACETAM SOL (5 ML) 100 MG/ML UDC GT SCH ×2 (08:12→21:00)
[2018-12-03] MEDS: ACIDOPHILUS/BULGARICUS 1 EACH TAB.CHEW GT SCH (08:12)
[2018-12-03] MEDS: MULTIVIT W/MINERALS 1 TAB TABLET GT SCH (08:12)
[2018-12-03] MEDS: PROSTAT (PYXIS) 30 ML UDC GT SCH ×3 (08:12→17:04)
[2018-12-03] MEDS: CARBOXYMETHYLCELLULOSE SODIUM 0.4 ML DROPERETTE EACHEYE SCH (08:12)
[2018-12-03] MEDS: MORPHINE SULFATE SOLN CONCENTRATED 20 MG/ML SL SCH ×2 (08:13→21:00)
[2018-12-03] MEDS: COD LIVER OIL/ZINC OXIDE 120 GM TUBE TP SCH ×2 (08:13→21:01)
[2018-12-03] MEDS: HYDROGEN PEROXIDE 480 ML BOTTLE TP SCH ×2 (08:13→21:01)
[2018-12-03] MEDS: CHLORHEXIDINE GLUCONATE 15 ML UDC MM SCH ×2 (08:13→21:00)
[2018-12-03] MEDS: ZINC SULFATE 220 MG CAPSULE GT SCH (08:13)
[2018-12-03 10:28] VITALS: BP 99/56
[2018-12-03] MEDS ORDERED: NYSTATIN/TRIAMCIN CREAM 15 GM TUBE TP PRN (12:30)
[2018-12-03] MEDS ORDERED: THERAHONEY GEL 1.5 OZ TUBE TP PRN (12:30)
[2018-12-03] MEDS: GLUCERNA 1.2 1,000 ML BOTTLE GT PRN (13:42)
[2018-12-03] MEDS: THERAHONEY GEL 1.5 OZ TUBE TP SCH (21:01)
[2018-12-03] MEDS: NYSTATIN/TRIAMCIN CREAM 15 GM TUBE TP SCH (21:01)
[2018-12-03 21:09] VITALS: BP 112/50
[2018-12-04] MEDS: IPRATROPIUM NEB FS 0.5 MG/2.5 ML AMPUL.NEB IH SCH ×4 (01:38→19:43)
[2018-12-04] MEDS: ALBUTEROL FS 2.5 MG/3 ML VIAL.NEB NEB SCH ×4 (01:38→19:43)
[2018-12-04] MEDS: METOCLOPRAMIDE HCL 10 MG TABLET GT SCH ×4 (05:36→23:42)
[2018-12-04] MEDS: LEVOTHYROXINE SODIUM 88 MCG TABLET GT SCH (05:36)
[2018-12-04] MEDS: OMEPRAZOLE 20 MG CAPSULE.DR GT SCH (05:36)
[2018-12-04 07:35] VITALS: BP 107/53
[2018-12-04] MEDS: ASCORBIC ACID 500 MG TABLET GT SCH (08:14)
[2018-12-04] MEDS: CHLORHEXIDINE GLUCONATE 15 ML UDC MM SCH ×2 (08:14→21:03)
[2018-12-04] MEDS: MULTIVIT W/MINERALS 1 TAB TABLET GT SCH (08:14)
[2018-12-04] MEDS: MORPHINE SULFATE SOLN CONCENTRATED 20 MG/ML SL SCH ×2 (08:14→21:03)
[2018-12-04] MEDS: LEVETIRACETAM SOL (5 ML) 100 MG/ML UDC GT SCH ×2 (08:14→21:03)
[2018-12-04] MEDS: PROSTAT (PYXIS) 30 ML UDC GT SCH ×3 (08:14→17:10)
[2018-12-04] MEDS: ACIDOPHILUS/BULGARICUS 1 EACH TAB.CHEW GT SCH (08:14)
[2018-12-04] MEDS: CARBOXYMETHYLCELLULOSE SODIUM 0.4 ML DROPERETTE EACHEYE SCH (08:14)
[2018-12-04] MEDS: ZINC SULFATE 220 MG CAPSULE GT SCH (08:14)
[2018-12-04] MEDS: HYDROGEN PEROXIDE 480 ML BOTTLE TP SCH ×2 (09:00→21:03)
[2018-12-04] MEDS: NYSTATIN/TRIAMCIN CREAM 15 GM TUBE TP SCH ×2 (09:00→21:04)
[2018-12-04] MEDS: THERAHONEY GEL 1.5 OZ TUBE TP SCH ×2 (09:00→21:04)
[2018-12-04] MEDS: COD LIVER OIL/ZINC OXIDE 120 GM TUBE TP SCH ×2 (09:00→21:03)
[2018-12-04] MEDS: GLUCERNA 1.2 1,000 ML BOTTLE GT PRN (12:00)
[2018-12-04 20:36] VITALS: BP 111/57
[2018-12-05] MEDS: ALBUTEROL FS 2.5 MG/3 ML VIAL.NEB NEB SCH ×3 (01:54→20:10)
[2018-12-05] MEDS: IPRATROPIUM NEB FS 0.5 MG/2.5 ML AMPUL.NEB IH SCH ×4 (01:54→20:09)
[2018-12-05] MEDS: OMEPRAZOLE 20 MG CAPSULE.DR GT SCH (05:46)
[2018-12-05] MEDS: METOCLOPRAMIDE HCL 10 MG TABLET GT SCH ×4 (05:47→23:58)
[2018-12-05] MEDS: LEVOTHYROXINE SODIUM 88 MCG TABLET GT SCH (05:47)
[2018-12-05] MEDS: CARBOXYMETHYLCELLULOSE SODIUM 0.4 ML DROPERETTE EACHEYE SCH (08:02)
[2018-12-05] MEDS: LEVETIRACETAM SOL (5 ML) 100 MG/ML UDC GT SCH ×2 (08:02→20:51)
[2018-12-05] MEDS: MULTIVIT W/MINERALS 1 TAB TABLET GT SCH (08:02)
[2018-12-05] MEDS: PROSTAT (PYXIS) 30 ML UDC GT SCH ×3 (08:02→17:43)
[2018-12-05] MEDS: CHLORHEXIDINE GLUCONATE 15 ML UDC MM SCH ×2 (08:02→20:51)
[2018-12-05] MEDS: ACIDOPHILUS/BULGARICUS 1 EACH TAB.CHEW GT SCH (08:02)
[2018-12-05] MEDS: ZINC SULFATE 220 MG CAPSULE GT SCH (08:02)
[2018-12-05] MEDS: ASCORBIC ACID 500 MG TABLET GT SCH (08:02)
[2018-12-05] MEDS: MORPHINE SULFATE SOLN CONCENTRATED 20 MG/ML SL SCH ×2 (08:02→20:51)
[2018-12-05] MEDS: HYDROGEN PEROXIDE 480 ML BOTTLE TP SCH ×2 (08:16→21:05)
[2018-12-05] MEDS: NYSTATIN/TRIAMCIN CREAM 15 GM TUBE TP SCH ×2 (08:32→22:00)
[2018-12-05] MEDS: COD LIVER OIL/ZINC OXIDE 120 GM TUBE TP SCH ×2 (08:32→22:00)
[2018-12-05] MEDS: THERAHONEY GEL 1.5 OZ TUBE TP SCH ×2 (08:32→22:00)
[2018-12-05 12:40] VITALS: BP 93/42
[2018-12-05] MEDS: GLUCERNA 1.2 1,000 ML BOTTLE GT PRN (13:44)
[2018-12-05 22:41] VITALS: BP 110/60
[2018-12-05 22:48] VITALS: BP 125/66
[2018-12-06] MEDS: IPRATROPIUM NEB FS 0.5 MG/2.5 ML AMPUL.NEB IH SCH ×4 (01:46→19:26)
[2018-12-06] MEDS: ALBUTEROL FS 2.5 MG/3 ML VIAL.NEB NEB SCH ×4 (01:46→19:26)
[2018-12-06] MEDS: METOCLOPRAMIDE HCL 10 MG TABLET GT SCH ×4 (05:17→23:23)
[2018-12-06] MEDS: OMEPRAZOLE 20 MG CAPSULE.DR GT SCH (05:17)
[2018-12-06] MEDS: LEVOTHYROXINE SODIUM 88 MCG TABLET GT SCH (05:17)
[2018-12-06 07:36] VITALS: BP 105/61
[2018-12-06] MEDS: HYDROGEN PEROXIDE 480 ML BOTTLE TP SCH ×2 (08:01→20:04)
[2018-12-06] MEDS: CHLORHEXIDINE GLUCONATE 15 ML UDC MM SCH ×2 (09:27→21:07)
[2018-12-06] MEDS: CARBOXYMETHYLCELLULOSE SODIUM 0.4 ML DROPERETTE EACHEYE SCH (09:27)
[2018-12-06] MEDS: ACIDOPHILUS/BULGARICUS 1 EACH TAB.CHEW GT SCH (09:27)
[2018-12-06] MEDS: PROSTAT (PYXIS) 30 ML UDC GT SCH ×3 (09:27→17:43)
[2018-12-06] MEDS: COD LIVER OIL/ZINC OXIDE 120 GM TUBE TP SCH ×2 (09:27→21:07)
[2018-12-06] MEDS: ASCORBIC ACID 500 MG TABLET GT SCH (09:27)
[2018-12-06] MEDS: MORPHINE SULFATE SOLN CONCENTRATED 20 MG/ML SL SCH ×2 (09:27→21:07)
[2018-12-06] MEDS: ZINC SULFATE 220 MG CAPSULE GT SCH (09:27)
[2018-12-06] MEDS: LEVETIRACETAM SOL (5 ML) 100 MG/ML UDC GT SCH ×2 (09:27→21:07)
[2018-12-06] MEDS: MULTIVIT W/MINERALS 1 TAB TABLET GT SCH (09:27)
[2018-12-06] MEDS: THERAHONEY GEL 1.5 OZ TUBE TP SCH ×2 (09:28→21:07)
[2018-12-06] MEDS: NYSTATIN/TRIAMCIN CREAM 15 GM TUBE TP SCH ×2 (09:28→21:07)
[2018-12-06] MEDS: GLUCERNA 1.2 1,000 ML BOTTLE GT PRN (14:42)
[2018-12-06 19:55] VITALS: BP 116/58
[2018-12-07] MEDS: IPRATROPIUM NEB FS 0.5 MG/2.5 ML AMPUL.NEB IH SCH ×4 (00:49→19:45)
[2018-12-07] MEDS: ALBUTEROL FS 2.5 MG/3 ML VIAL.NEB NEB SCH ×4 (00:49→19:45)
[2018-12-07] MEDS: METOCLOPRAMIDE HCL 10 MG TABLET GT SCH ×4 (05:41→23:42)
[2018-12-07] MEDS: OMEPRAZOLE 20 MG CAPSULE.DR GT SCH (05:41)
[2018-12-07] MEDS: LEVOTHYROXINE SODIUM 88 MCG TABLET GT SCH (05:41)
[2018-12-07 07:48] VITALS: BP 124/49
[2018-12-07] MEDS: MULTIVIT W/MINERALS 1 TAB TABLET GT SCH (08:58)
[2018-12-07] MEDS: CARBOXYMETHYLCELLULOSE SODIUM 0.4 ML DROPERETTE EACHEYE SCH (08:58)
[2018-12-07] MEDS: ACIDOPHILUS/BULGARICUS 1 EACH TAB.CHEW GT SCH (08:58)
[2018-12-07] MEDS: ASCORBIC ACID 500 MG TABLET GT SCH (08:58)
[2018-12-07] MEDS: LEVETIRACETAM SOL (5 ML) 100 MG/ML UDC GT SCH ×2 (08:58→21:24)
[2018-12-07] MEDS: PROSTAT (PYXIS) 30 ML UDC GT SCH ×3 (08:58→17:11)
[2018-12-07] MEDS: ZINC SULFATE 220 MG CAPSULE GT SCH (08:59)
[2018-12-07] MEDS: CHLORHEXIDINE GLUCONATE 15 ML UDC MM SCH ×2 (08:59→21:36)
[2018-12-07] MEDS: MORPHINE SULFATE SOLN CONCENTRATED 20 MG/ML SL SCH ×2 (08:59→21:24)
[2018-12-07] MEDS: NYSTATIN/TRIAMCIN CREAM 15 GM TUBE TP SCH ×2 (09:30→21:25)
[2018-12-07] MEDS: COD LIVER OIL/ZINC OXIDE 120 GM TUBE TP SCH ×2 (09:30→21:24)
[2018-12-07] MEDS: THERAHONEY GEL 1.5 OZ TUBE TP SCH ×2 (09:30→21:25)
[2018-12-07] MEDS: HYDROGEN PEROXIDE 480 ML BOTTLE TP SCH ×2 (09:57→20:04)
[2018-12-07] MEDS: GLUCERNA 1.2 1,000 ML BOTTLE GT PRN (12:46)
[2018-12-07 19:58] VITALS: BP 109/53
[2018-12-08] MEDS: ALBUTEROL FS 2.5 MG/3 ML VIAL.NEB NEB SCH ×4 (00:42→19:57)
[2018-12-08] MEDS: IPRATROPIUM NEB FS 0.5 MG/2.5 ML AMPUL.NEB IH SCH ×4 (00:42→19:57)
[2018-12-08] MEDS: METOCLOPRAMIDE HCL 10 MG TABLET GT SCH ×3 (05:19→17:23)
[2018-12-08] MEDS: LEVOTHYROXINE SODIUM 88 MCG TABLET GT SCH (05:19)
[2018-12-08] MEDS: OMEPRAZOLE 20 MG CAPSULE.DR GT SCH (05:19)
[2018-12-08 07:58] VITALS: BP 106/64
[2018-12-08] MEDS: HYDROGEN PEROXIDE 480 ML BOTTLE TP SCH ×2 (09:00→21:00)
[2018-12-08] MEDS: MULTIVIT W/MINERALS 1 TAB TABLET GT SCH (09:34)
[2018-12-08] MEDS: CHLORHEXIDINE GLUCONATE 15 ML UDC MM SCH ×2 (09:34→21:18)
[2018-12-08] MEDS: CARBOXYMETHYLCELLULOSE SODIUM 0.4 ML DROPERETTE EACHEYE SCH (09:34)
[2018-12-08] MEDS: ASCORBIC ACID 500 MG TABLET GT SCH (09:34)
[2018-12-08] MEDS: ACIDOPHILUS/BULGARICUS 1 EACH TAB.CHEW GT SCH (09:34)
[2018-12-08] MEDS: PROSTAT (PYXIS) 30 ML UDC GT SCH ×3 (09:34→17:23)
[2018-12-08] MEDS: LEVETIRACETAM SOL (5 ML) 100 MG/ML UDC GT SCH ×2 (09:34→21:18)
[2018-12-08] MEDS: MORPHINE SULFATE SOLN CONCENTRATED 20 MG/ML SL SCH ×2 (09:34→21:18)
[2018-12-08] MEDS: ZINC SULFATE 220 MG CAPSULE GT SCH (09:34)
[2018-12-08] MEDS: THERAHONEY GEL 1.5 OZ TUBE TP SCH ×2 (10:10→21:19)
[2018-12-08] MEDS: NYSTATIN/TRIAMCIN CREAM 15 GM TUBE TP SCH ×2 (10:10→21:19)
[2018-12-08] MEDS: COD LIVER OIL/ZINC OXIDE 120 GM TUBE TP SCH ×2 (10:10→21:18)
[2018-12-08] MEDS: GLUCERNA 1.2 1,000 ML BOTTLE GT PRN (13:22)
[2018-12-08 19:40] VITALS: BP 124/66
[2018-12-09] MEDS: METOCLOPRAMIDE HCL 10 MG TABLET GT SCH ×4 (00:03→17:46)
[2018-12-09] MEDS: ALBUTEROL FS 2.5 MG/3 ML VIAL.NEB NEB SCH ×4 (01:27→19:30)
[2018-12-09] MEDS: IPRATROPIUM NEB FS 0.5 MG/2.5 ML AMPUL.NEB IH SCH ×4 (01:27→19:30)
[2018-12-09] MEDS: OMEPRAZOLE 20 MG CAPSULE.DR GT SCH (05:23)
[2018-12-09] MEDS: LEVOTHYROXINE SODIUM 88 MCG TABLET GT SCH (05:23)
[2018-12-09] MEDS: GLUCERNA 1.2 1,000 ML BOTTLE GT PRN (05:57)
[2018-12-09 07:32] VITALS: BP 117/64
[2018-12-09] MEDS: HYDROGEN PEROXIDE 480 ML BOTTLE TP SCH ×2 (09:00→21:30)
[2018-12-09] MEDS: MULTIVIT W/MINERALS 1 TAB TABLET GT SCH (09:12)
[2018-12-09] MEDS: CHLORHEXIDINE GLUCONATE 15 ML UDC MM SCH ×2 (09:12→21:05)
[2018-12-09] MEDS: LEVETIRACETAM SOL (5 ML) 100 MG/ML UDC GT SCH ×2 (09:12→21:05)
[2018-12-09] MEDS: CARBOXYMETHYLCELLULOSE SODIUM 0.4 ML DROPERETTE EACHEYE SCH (09:12)
[2018-12-09] MEDS: COD LIVER OIL/ZINC OXIDE 120 GM TUBE TP SCH ×2 (09:12→21:05)
[2018-12-09] MEDS: MORPHINE SULFATE SOLN CONCENTRATED 20 MG/ML SL SCH ×2 (09:12→21:05)
[2018-12-09] MEDS: ASCORBIC ACID 500 MG TABLET GT SCH (09:12)
[2018-12-09] MEDS: PROSTAT (PYXIS) 30 ML UDC GT SCH ×3 (09:12→17:00)
[2018-12-09] MEDS: ACIDOPHILUS/BULGARICUS 1 EACH TAB.CHEW GT SCH (09:12)
[2018-12-09] MEDS: ZINC SULFATE 220 MG CAPSULE GT SCH (09:12)
[2018-12-09] MEDS: THERAHONEY GEL 1.5 OZ TUBE TP SCH ×2 (09:13→21:05)
[2018-12-09] MEDS: NYSTATIN/TRIAMCIN CREAM 15 GM TUBE TP SCH ×2 (09:13→21:05)
[2018-12-09 19:41] VITALS: BP 118/63
[2018-12-10] MEDS: METOCLOPRAMIDE HCL 10 MG TABLET GT SCH ×4 (00:07→17:03)
[2018-12-10] MEDS: ALBUTEROL FS 2.5 MG/3 ML VIAL.NEB NEB SCH ×4 (01:06→19:49)
[2018-12-10] MEDS: IPRATROPIUM NEB FS 0.5 MG/2.5 ML AMPUL.NEB IH SCH ×4 (01:06→19:49)
[2018-12-10] MEDS: LEVOTHYROXINE SODIUM 88 MCG TABLET GT SCH (06:10)
[2018-12-10] MEDS: OMEPRAZOLE 20 MG CAPSULE.DR GT SCH (06:10)
[2018-12-10] MEDS: HYDROGEN PEROXIDE 480 ML BOTTLE TP SCH ×2 (07:21→21:00)
[2018-12-10 07:58] VITALS: BP 109/43
[2018-12-10] MEDS: MULTIVIT W/MINERALS 1 TAB TABLET GT SCH (08:41)
[2018-12-10] MEDS: CHLORHEXIDINE GLUCONATE 15 ML UDC MM SCH ×2 (08:43→20:49)
[2018-12-10] MEDS: MORPHINE SULFATE SOLN CONCENTRATED 20 MG/ML SL SCH ×2 (08:43→20:49)
[2018-12-10] MEDS: LEVETIRACETAM SOL (5 ML) 100 MG/ML UDC GT SCH ×2 (08:44→20:48)
[2018-12-10] MEDS: ASCORBIC ACID 500 MG TABLET GT SCH (08:45)
[2018-12-10] MEDS: ZINC SULFATE 220 MG CAPSULE GT SCH (08:46)
[2018-12-10] MEDS: COD LIVER OIL/ZINC OXIDE 120 GM TUBE TP SCH ×2 (08:46→20:49)
[2018-12-10] MEDS: THERAHONEY GEL 1.5 OZ TUBE TP SCH ×2 (08:47→20:50)
[2018-12-10] MEDS: NYSTATIN/TRIAMCIN CREAM 15 GM TUBE TP SCH ×2 (08:47→20:49)
[2018-12-10] MEDS: CARBOXYMETHYLCELLULOSE SODIUM 0.4 ML DROPERETTE EACHEYE SCH (08:49)
[2018-12-10] MEDS: ACIDOPHILUS/BULGARICUS 1 EACH TAB.CHEW GT SCH (08:49)
[2018-12-10] MEDS: PROSTAT (PYXIS) 30 ML UDC GT SCH ×3 (08:50→17:02)
--- NOTE | 2018-12-10 13:54 | NUR ---
RT NOTE: RECEIVED PT ON 28% COOL AEROSOL. NO RESPIRATORY DISTRESS NOTED. TRACH CHECKED SECURE AND PATENT. SXD AND LAVAGED PT Q ROUND AND NEEDED. TXS GIVEN ORDERED WITH NO ADVERSE REACTIONS NOTED. TRACH CARE DONE. EMERGENCY EQUIPMENT @ BEDSIDE.
[2018-12-10 19:42] VITALS: BP 109/57
[2018-12-11] MEDS: METOCLOPRAMIDE HCL 10 MG TABLET GT SCH ×4 (00:40→17:13)
[2018-12-11] MEDS: ALBUTEROL FS 2.5 MG/3 ML VIAL.NEB NEB SCH ×4 (01:38→19:24)
[2018-12-11] MEDS: IPRATROPIUM NEB FS 0.5 MG/2.5 ML AMPUL.NEB IH SCH ×4 (01:38→19:24)
[2018-12-11] MEDS: GLUCERNA 1.2 1,000 ML BOTTLE GT PRN (03:14)
[2018-12-11] MEDS: OMEPRAZOLE 20 MG CAPSULE.DR GT SCH (06:07)
[2018-12-11] MEDS: LEVOTHYROXINE SODIUM 88 MCG TABLET GT SCH (06:07)
[2018-12-11 08:01] VITALS: BP 128/59
[2018-12-11] MEDS: HYDROGEN PEROXIDE 480 ML BOTTLE TP SCH ×2 (09:00→21:00)
[2018-12-11] MEDS: ACIDOPHILUS/BULGARICUS 1 EACH TAB.CHEW GT SCH (09:04)
[2018-12-11] MEDS: CARBOXYMETHYLCELLULOSE SODIUM 0.4 ML DROPERETTE EACHEYE SCH (09:04)
[2018-12-11] MEDS: MULTIVIT W/MINERALS 1 TAB TABLET GT SCH (09:04)
[2018-12-11] MEDS: LEVETIRACETAM SOL (5 ML) 100 MG/ML UDC GT SCH ×2 (09:04→21:02)
[2018-12-11] MEDS: CHLORHEXIDINE GLUCONATE 15 ML UDC MM SCH ×2 (09:04→21:02)
[2018-12-11] MEDS: ZINC SULFATE 220 MG CAPSULE GT SCH (09:04)
[2018-12-11] MEDS: ASCORBIC ACID 500 MG TABLET GT SCH (09:04)
[2018-12-11] MEDS: MORPHINE SULFATE SOLN CONCENTRATED 20 MG/ML SL SCH ×2 (09:04→21:02)
[2018-12-11] MEDS: PROSTAT (PYXIS) 30 ML UDC GT SCH ×3 (09:04→17:13)
[2018-12-11] MEDS: COD LIVER OIL/ZINC OXIDE 120 GM TUBE TP SCH ×2 (09:05→21:02)
[2018-12-11] MEDS: THERAHONEY GEL 1.5 OZ TUBE TP SCH ×2 (09:07→21:03)
[2018-12-11] MEDS: NYSTATIN/TRIAMCIN CREAM 15 GM TUBE TP SCH ×2 (09:07→21:03)
[2018-12-11 20:23] VITALS: BP 109/69
[2018-12-12] MEDS: METOCLOPRAMIDE HCL 10 MG TABLET GT SCH ×4 (00:15→18:53)
[2018-12-12] MEDS: IPRATROPIUM NEB FS 0.5 MG/2.5 ML AMPUL.NEB IH SCH ×4 (00:46→19:47)
[2018-12-12] MEDS: ALBUTEROL FS 2.5 MG/3 ML VIAL.NEB NEB SCH ×4 (00:46→19:47)
[2018-12-12] MEDS: OMEPRAZOLE 20 MG CAPSULE.DR GT SCH (06:03)
[2018-12-12] MEDS: LEVOTHYROXINE SODIUM 88 MCG TABLET GT SCH (06:03)
[2018-12-12 07:47] VITALS: BP 115/68
--- NOTE | 2018-12-12 09:02 | NUR ---
Seen and examined by Dr. Ross no new order given.
[2018-12-12] MEDS: ACIDOPHILUS/BULGARICUS 1 EACH TAB.CHEW GT SCH (09:12)
[2018-12-12] MEDS: LEVETIRACETAM SOL (5 ML) 100 MG/ML UDC GT SCH ×2 (09:12→20:45)
[2018-12-12] MEDS: MULTIVIT W/MINERALS 1 TAB TABLET GT SCH (09:12)
[2018-12-12] MEDS: CARBOXYMETHYLCELLULOSE SODIUM 0.4 ML DROPERETTE EACHEYE SCH (09:12)
[2018-12-12] MEDS: PROSTAT (PYXIS) 30 ML UDC GT SCH ×3 (09:12→16:39)
[2018-12-12] MEDS: ASCORBIC ACID 500 MG TABLET GT SCH (09:13)
[2018-12-12] MEDS: MORPHINE SULFATE SOLN CONCENTRATED 20 MG/ML SL SCH ×2 (09:13→20:46)
[2018-12-12] MEDS: ZINC SULFATE 220 MG CAPSULE GT SCH (09:13)
[2018-12-12] MEDS: CHLORHEXIDINE GLUCONATE 15 ML UDC MM SCH ×2 (09:13→21:18)
[2018-12-12] MEDS: HYDROGEN PEROXIDE 480 ML BOTTLE TP SCH ×2 (09:18→19:47)
--- NOTE | 2018-12-12 09:30 | NUR ---
Jamil catheter noted bypassing and dislodged with inflated balloon. New Jamil catheter inserted again. Tolerated procedure well. New Jamil catheter draining clear yellow urine and secured properly. All needs met and attended. Kept clean and comfortable.
--- NOTE | 2018-12-12 09:30 | NUR ---
Seen and examined by Dr. Ross no new order given.
[2018-12-12] MEDS: THERAHONEY GEL 1.5 OZ TUBE TP SCH ×2 (09:43→21:19)
[2018-12-12] MEDS: NYSTATIN/TRIAMCIN CREAM 15 GM TUBE TP SCH ×2 (09:43→21:19)
[2018-12-12] MEDS: COD LIVER OIL/ZINC OXIDE 120 GM TUBE TP SCH ×2 (09:43→21:19)
[2018-12-12] MEDS: GLUCERNA 1.2 1,000 ML BOTTLE GT PRN (14:45)
[2018-12-12 19:47] VITALS: BP 109/54
[2018-12-13] MEDS: METOCLOPRAMIDE HCL 10 MG TABLET GT SCH ×5 (00:03→23:24)
[2018-12-13] MEDS: ALBUTEROL FS 2.5 MG/3 ML VIAL.NEB NEB SCH ×4 (00:58→20:15)
[2018-12-13] MEDS: IPRATROPIUM NEB FS 0.5 MG/2.5 ML AMPUL.NEB IH SCH ×4 (00:58→20:15)
[2018-12-13] MEDS: OMEPRAZOLE 20 MG CAPSULE.DR GT SCH (06:40)
[2018-12-13] MEDS: LEVOTHYROXINE SODIUM 88 MCG TABLET GT SCH (06:40)
[2018-12-13 07:52] VITALS: BP 134/55
[2018-12-13] MEDS: MULTIVIT W/MINERALS 1 TAB TABLET GT SCH (08:28)
[2018-12-13] MEDS: MORPHINE SULFATE SOLN CONCENTRATED 20 MG/ML SL SCH ×2 (08:28→20:35)
[2018-12-13] MEDS: ASCORBIC ACID 500 MG TABLET GT SCH (08:28)
[2018-12-13] MEDS: CARBOXYMETHYLCELLULOSE SODIUM 0.4 ML DROPERETTE EACHEYE SCH (08:28)
[2018-12-13] MEDS: LEVETIRACETAM SOL (5 ML) 100 MG/ML UDC GT SCH ×2 (08:28→20:35)
[2018-12-13] MEDS: ZINC SULFATE 220 MG CAPSULE GT SCH (08:28)
[2018-12-13] MEDS: CHLORHEXIDINE GLUCONATE 15 ML UDC MM SCH ×2 (08:28→20:35)
[2018-12-13] MEDS: PROSTAT (PYXIS) 30 ML UDC GT SCH ×3 (08:28→17:29)
[2018-12-13] MEDS: ACIDOPHILUS/BULGARICUS 1 EACH TAB.CHEW GT SCH (08:28)
[2018-12-13] MEDS: HYDROGEN PEROXIDE 480 ML BOTTLE TP SCH ×2 (09:00→20:35)
[2018-12-13] MEDS: COD LIVER OIL/ZINC OXIDE 120 GM TUBE TP SCH ×2 (09:15→20:35)
[2018-12-13] MEDS: THERAHONEY GEL 1.5 OZ TUBE TP SCH ×2 (09:15→20:35)
[2018-12-13] MEDS: NYSTATIN/TRIAMCIN CREAM 15 GM TUBE TP SCH ×2 (09:15→20:35)
[2018-12-13] MEDS: GLUCERNA 1.2 1,000 ML BOTTLE GT PRN (11:31)
[2018-12-13 20:18] VITALS: BP 114/63
[2018-12-14] MEDS: ALBUTEROL FS 2.5 MG/3 ML VIAL.NEB NEB SCH ×4 (01:57→19:33)
[2018-12-14] MEDS: IPRATROPIUM NEB FS 0.5 MG/2.5 ML AMPUL.NEB IH SCH ×4 (01:57→19:33)
[2018-12-14] MEDS: METOCLOPRAMIDE HCL 10 MG TABLET GT SCH ×3 (05:35→17:30)
[2018-12-14] MEDS: OMEPRAZOLE 20 MG CAPSULE.DR GT SCH (05:35)
[2018-12-14] MEDS: LEVOTHYROXINE SODIUM 88 MCG TABLET GT SCH (05:35)
[2018-12-14] MEDS: HYDROGEN PEROXIDE 480 ML BOTTLE TP SCH ×2 (07:44→20:27)
[2018-12-14] MEDS: MORPHINE SULFATE SOLN CONCENTRATED 20 MG/ML SL SCH ×2 (08:19→20:27)
[2018-12-14] MEDS: ZINC SULFATE 220 MG CAPSULE GT SCH (08:19)
[2018-12-14] MEDS: CHLORHEXIDINE GLUCONATE 15 ML UDC MM SCH ×2 (08:19→20:27)
[2018-12-14] MEDS: ACIDOPHILUS/BULGARICUS 1 EACH TAB.CHEW GT SCH (08:19)
[2018-12-14] MEDS: PROSTAT (PYXIS) 30 ML UDC GT SCH ×3 (08:19→17:30)
[2018-12-14] MEDS: ASCORBIC ACID 500 MG TABLET GT SCH (08:19)
[2018-12-14] MEDS: MULTIVIT W/MINERALS 1 TAB TABLET GT SCH (08:19)
[2018-12-14] MEDS: CARBOXYMETHYLCELLULOSE SODIUM 0.4 ML DROPERETTE EACHEYE SCH (08:20)
[2018-12-14] MEDS: LEVETIRACETAM SOL (5 ML) 100 MG/ML UDC GT SCH ×2 (08:20→20:27)
[2018-12-14 08:25] VITALS: BP 123/82
[2018-12-14] MEDS: THERAHONEY GEL 1.5 OZ TUBE TP SCH ×2 (09:00→20:28)
[2018-12-14] MEDS: COD LIVER OIL/ZINC OXIDE 120 GM TUBE TP SCH ×2 (09:00→20:27)
[2018-12-14] MEDS: NYSTATIN/TRIAMCIN CREAM 15 GM TUBE TP SCH ×2 (09:00→20:27)
[2018-12-14] MEDS: GLUCERNA 1.2 1,000 ML BOTTLE GT PRN (12:39)
[2018-12-14 20:09] VITALS: BP 111/65
[2018-12-15] MEDS: METOCLOPRAMIDE HCL 10 MG TABLET GT SCH ×5 (00:41→23:17)
[2018-12-15] MEDS: ALBUTEROL FS 2.5 MG/3 ML VIAL.NEB NEB SCH ×4 (01:05→19:32)
[2018-12-15] MEDS: IPRATROPIUM NEB FS 0.5 MG/2.5 ML AMPUL.NEB IH SCH ×4 (01:05→19:32)
[2018-12-15] MEDS: LEVOTHYROXINE SODIUM 88 MCG TABLET GT SCH (05:06)
[2018-12-15] MEDS: OMEPRAZOLE 20 MG CAPSULE.DR GT SCH (05:06)
[2018-12-15] MEDS: BISACODYL SUPP (10 MG) 10 MG/SUPP.RECT SUPP.RECT RC PRN (05:07)
[2018-12-15 07:32] VITALS: BP 115/73
[2018-12-15] MEDS: PROSTAT (PYXIS) 30 ML UDC GT SCH ×3 (08:52→17:04)
[2018-12-15] MEDS: LEVETIRACETAM SOL (5 ML) 100 MG/ML UDC GT SCH ×2 (08:52→20:41)
[2018-12-15] MEDS: MULTIVIT W/MINERALS 1 TAB TABLET GT SCH (08:52)
[2018-12-15] MEDS: CARBOXYMETHYLCELLULOSE SODIUM 0.4 ML DROPERETTE EACHEYE SCH (08:52)
[2018-12-15] MEDS: ACIDOPHILUS/BULGARICUS 1 EACH TAB.CHEW GT SCH (08:52)
[2018-12-15] MEDS: MORPHINE SULFATE SOLN CONCENTRATED 20 MG/ML SL SCH ×2 (08:53→20:41)
[2018-12-15] MEDS: CHLORHEXIDINE GLUCONATE 15 ML UDC MM SCH ×2 (08:53→20:41)
[2018-12-15] MEDS: ZINC SULFATE 220 MG CAPSULE GT SCH (08:53)
[2018-12-15] MEDS: ASCORBIC ACID 500 MG TABLET GT SCH (08:53)
[2018-12-15] MEDS: HYDROGEN PEROXIDE 480 ML BOTTLE TP SCH ×2 (09:00→21:00)
[2018-12-15] MEDS: COD LIVER OIL/ZINC OXIDE 120 GM TUBE TP SCH ×2 (09:30→20:41)
[2018-12-15] MEDS: THERAHONEY GEL 1.5 OZ TUBE TP SCH ×2 (09:30→20:42)
[2018-12-15] MEDS: NYSTATIN/TRIAMCIN CREAM 15 GM TUBE TP SCH ×2 (09:30→20:41)
[2018-12-15] MEDS: GLUCERNA 1.2 1,000 ML BOTTLE GT PRN (13:13)
[2018-12-15 19:36] VITALS: BP 121/54
[2018-12-16] MEDS: IPRATROPIUM NEB FS 0.5 MG/2.5 ML AMPUL.NEB IH SCH ×4 (01:46→20:16)
[2018-12-16] MEDS: ALBUTEROL FS 2.5 MG/3 ML VIAL.NEB NEB SCH ×4 (01:46→20:16)
[2018-12-16] MEDS: LEVOTHYROXINE SODIUM 88 MCG TABLET GT SCH (05:56)
[2018-12-16] MEDS: METOCLOPRAMIDE HCL 10 MG TABLET GT SCH ×3 (05:56→17:48)
[2018-12-16] MEDS: OMEPRAZOLE 20 MG CAPSULE.DR GT SCH (05:56)
[2018-12-16 07:48] VITALS: BP 117/62
[2018-12-16] MEDS: ACIDOPHILUS/BULGARICUS 1 EACH TAB.CHEW GT SCH (09:13)
[2018-12-16] MEDS: PROSTAT (PYXIS) 30 ML UDC GT SCH ×3 (09:14→17:48)
[2018-12-16] MEDS: CARBOXYMETHYLCELLULOSE SODIUM 0.4 ML DROPERETTE EACHEYE SCH (09:14)
[2018-12-16] MEDS: ASCORBIC ACID 500 MG TABLET GT SCH (09:14)
[2018-12-16] MEDS: ZINC SULFATE 220 MG CAPSULE GT SCH (09:14)
[2018-12-16] MEDS: COD LIVER OIL/ZINC OXIDE 120 GM TUBE TP SCH ×2 (09:15→21:09)
[2018-12-16] MEDS: HYDROGEN PEROXIDE 480 ML BOTTLE TP SCH ×2 (09:15→21:09)
[2018-12-16] MEDS: CHLORHEXIDINE GLUCONATE 15 ML UDC MM SCH ×2 (09:15→21:07)
[2018-12-16] MEDS: MULTIVIT W/MINERALS 1 TAB TABLET GT SCH (09:18)
[2018-12-16] MEDS: LEVETIRACETAM SOL (5 ML) 100 MG/ML UDC GT SCH ×2 (09:18→21:07)
[2018-12-16] MEDS: MORPHINE SULFATE SOLN CONCENTRATED 20 MG/ML SL SCH ×2 (09:20→21:07)
[2018-12-16] MEDS: NYSTATIN/TRIAMCIN CREAM 15 GM TUBE TP SCH ×2 (09:21→21:09)
[2018-12-16] MEDS: THERAHONEY GEL 1.5 OZ TUBE TP SCH ×2 (09:21→21:09)
[2018-12-16] MEDS: GLUCERNA 1.2 1,000 ML BOTTLE GT PRN (12:11)
[2018-12-16 19:50] VITALS: BP 116/64
[2018-12-17] MEDS: IPRATROPIUM NEB FS 0.5 MG/2.5 ML AMPUL.NEB IH SCH ×4 (00:03→19:30)
[2018-12-17] MEDS: ALBUTEROL FS 2.5 MG/3 ML VIAL.NEB NEB SCH ×4 (00:03→19:30)
[2018-12-17] MEDS: METOCLOPRAMIDE HCL 10 MG TABLET GT SCH ×5 (00:07→23:33)
[2018-12-17] MEDS: LEVOTHYROXINE SODIUM 88 MCG TABLET GT SCH (06:16)
[2018-12-17] MEDS: OMEPRAZOLE 20 MG CAPSULE.DR GT SCH (06:16)
[2018-12-17 07:32] VITALS: BP 127/67
[2018-12-17] MEDS: CARBOXYMETHYLCELLULOSE SODIUM 0.4 ML DROPERETTE EACHEYE SCH (08:24)
[2018-12-17] MEDS: LEVETIRACETAM SOL (5 ML) 100 MG/ML UDC GT SCH ×2 (08:25→20:37)
[2018-12-17] MEDS: PROSTAT (PYXIS) 30 ML UDC GT SCH ×3 (08:38→17:16)
[2018-12-17] MEDS: ASCORBIC ACID 500 MG TABLET GT SCH (08:38)
[2018-12-17] MEDS: MORPHINE SULFATE SOLN CONCENTRATED 20 MG/ML SL SCH ×2 (08:38→20:37)
[2018-12-17] MEDS: CHLORHEXIDINE GLUCONATE 15 ML UDC MM SCH ×2 (08:38→20:37)
[2018-12-17] MEDS: ACIDOPHILUS/BULGARICUS 1 EACH TAB.CHEW GT SCH (08:38)
[2018-12-17] MEDS: MULTIVIT W/MINERALS 1 TAB TABLET GT SCH (08:38)
[2018-12-17] MEDS: ZINC SULFATE 220 MG CAPSULE GT SCH (08:38)
[2018-12-17] MEDS: THERAHONEY GEL 1.5 OZ TUBE TP SCH ×2 (09:00→21:17)
[2018-12-17] MEDS: COD LIVER OIL/ZINC OXIDE 120 GM TUBE TP SCH ×2 (09:00→21:17)
[2018-12-17] MEDS: HYDROGEN PEROXIDE 480 ML BOTTLE TP SCH ×2 (09:00→21:00)
[2018-12-17] MEDS: NYSTATIN/TRIAMCIN CREAM 15 GM TUBE TP SCH ×2 (09:00→21:17)
[2018-12-17] MEDS: GLUCERNA 1.2 1,000 ML BOTTLE GT PRN (16:24)
[2018-12-17 19:46] VITALS: BP 120/62
[2018-12-18] MEDS: IPRATROPIUM NEB FS 0.5 MG/2.5 ML AMPUL.NEB IH SCH ×4 (01:45→20:19)
[2018-12-18] MEDS: ALBUTEROL FS 2.5 MG/3 ML VIAL.NEB NEB SCH ×4 (01:45→20:19)
[2018-12-18] MEDS: OMEPRAZOLE 20 MG CAPSULE.DR GT SCH (05:35)
[2018-12-18] MEDS: METOCLOPRAMIDE HCL 10 MG TABLET GT SCH ×3 (05:35→17:51)
[2018-12-18] MEDS: LEVOTHYROXINE SODIUM 88 MCG TABLET GT SCH (05:36)
[2018-12-18 07:32] VITALS: BP 126/64
[2018-12-18] MEDS: CHLORHEXIDINE GLUCONATE 15 ML UDC MM SCH ×2 (08:39→21:03)
[2018-12-18] MEDS: LEVETIRACETAM SOL (5 ML) 100 MG/ML UDC GT SCH ×2 (08:39→21:03)
[2018-12-18] MEDS: MULTIVIT W/MINERALS 1 TAB TABLET GT SCH (08:39)
[2018-12-18] MEDS: ACIDOPHILUS/BULGARICUS 1 EACH TAB.CHEW GT SCH (08:41)
[2018-12-18] MEDS: ASCORBIC ACID 500 MG TABLET GT SCH (08:41)
[2018-12-18] MEDS: PROSTAT (PYXIS) 30 ML UDC GT SCH ×3 (08:41→17:50)
[2018-12-18] MEDS: ZINC SULFATE 220 MG CAPSULE GT SCH (08:41)
[2018-12-18] MEDS: CARBOXYMETHYLCELLULOSE SODIUM 0.4 ML DROPERETTE EACHEYE SCH (08:42)
[2018-12-18] MEDS: THERAHONEY GEL 1.5 OZ TUBE TP SCH ×2 (08:43→21:04)
[2018-12-18] MEDS: COD LIVER OIL/ZINC OXIDE 120 GM TUBE TP SCH ×2 (08:43→21:04)
[2018-12-18] MEDS: HYDROGEN PEROXIDE 480 ML BOTTLE TP SCH ×2 (08:43→21:04)
[2018-12-18] MEDS: NYSTATIN/TRIAMCIN CREAM 15 GM TUBE TP SCH ×2 (08:43→21:04)
[2018-12-18] MEDS: MORPHINE SULFATE SOLN CONCENTRATED 20 MG/ML SL SCH ×2 (08:47→21:04)
--- NOTE | 2018-12-18 11:40 | NUR ---
Seen and examined by Dr. Ross, aware of current weight, NNO given.
[2018-12-18] MEDS: GLUCERNA 1.2 1,000 ML BOTTLE GT PRN (16:14)
--- NOTE | 2018-12-18 16:16 | NUR ---
December Family Group: JOSSE called patients responsible constitution party, Reyna Galindo [phone], to remind them that the family support group taking place 12/19/18 from 11 am-12 pm in the old admin conference room. Ju went to voicemail and SW left information stated above.
--- NOTE | 2018-12-18 19:18 | NUR ---
SEEN AND EXAMINED BY TERESA GEIGER. INSPECTOR STRUCTURAL BONDING IS MADE AWARE OF CURRENT WEIGHT. TERESA GOLL WITH NO NEW ORDERS.
[2018-12-18 20:03] VITALS: BP 113/58
[2018-12-19] MEDS: ALBUTEROL FS 2.5 MG/3 ML VIAL.NEB NEB SCH ×4 (01:11→19:41)
[2018-12-19] MEDS: IPRATROPIUM NEB FS 0.5 MG/2.5 ML AMPUL.NEB IH SCH ×4 (01:11→19:41)
[2018-12-19] MEDS: OMEPRAZOLE 20 MG CAPSULE.DR GT SCH (05:07)
[2018-12-19] MEDS: METOCLOPRAMIDE HCL 10 MG TABLET GT SCH ×5 (05:08→23:22)
[2018-12-19] MEDS: LEVOTHYROXINE SODIUM 88 MCG TABLET GT SCH (05:08)
[2018-12-19 07:53] VITALS: BP 119/67
[2018-12-19] MEDS: HYDROGEN PEROXIDE 480 ML BOTTLE TP SCH ×2 (08:10→20:19)
[2018-12-19] MEDS: ZINC SULFATE 220 MG CAPSULE GT SCH (08:36)
[2018-12-19] MEDS: THERAHONEY GEL 1.5 OZ TUBE TP SCH ×2 (08:36→21:32)
[2018-12-19] MEDS: CHLORHEXIDINE GLUCONATE 15 ML UDC MM SCH ×2 (08:36→20:47)
[2018-12-19] MEDS: NYSTATIN/TRIAMCIN CREAM 15 GM TUBE TP SCH ×2 (08:36→21:32)
[2018-12-19] MEDS: PROSTAT (PYXIS) 30 ML UDC GT SCH ×3 (08:36→17:43)
[2018-12-19] MEDS: ASCORBIC ACID 500 MG TABLET GT SCH (08:36)
[2018-12-19] MEDS: ACIDOPHILUS/BULGARICUS 1 EACH TAB.CHEW GT SCH (08:36)
[2018-12-19] MEDS: CARBOXYMETHYLCELLULOSE SODIUM 0.4 ML DROPERETTE EACHEYE SCH (08:36)
[2018-12-19] MEDS: MORPHINE SULFATE SOLN CONCENTRATED 20 MG/ML SL SCH ×2 (08:36→20:47)
[2018-12-19] MEDS: COD LIVER OIL/ZINC OXIDE 120 GM TUBE TP SCH ×2 (08:36→21:32)
[2018-12-19] MEDS: MULTIVIT W/MINERALS 1 TAB TABLET GT SCH (08:36)
[2018-12-19] MEDS: LEVETIRACETAM SOL (5 ML) 100 MG/ML UDC GT SCH ×2 (08:36→20:47)
[2018-12-19] MEDS: GLUCERNA 1.2 1,000 ML BOTTLE GT PRN (17:43)
[2018-12-19 20:41] VITALS: BP 123/76
[2018-12-20] MEDS: IPRATROPIUM NEB FS 0.5 MG/2.5 ML AMPUL.NEB IH SCH ×4 (02:01→19:50)
[2018-12-20] MEDS: ALBUTEROL FS 2.5 MG/3 ML VIAL.NEB NEB SCH ×4 (02:01→19:50)
[2018-12-20] MEDS: OMEPRAZOLE 20 MG CAPSULE.DR GT SCH (05:28)
[2018-12-20] MEDS: METOCLOPRAMIDE HCL 10 MG TABLET GT SCH ×4 (05:28→23:26)
[2018-12-20] MEDS: LEVOTHYROXINE SODIUM 88 MCG TABLET GT SCH (05:28)
[2018-12-20 07:57] VITALS: BP 128/61
[2018-12-20] MEDS: HYDROGEN PEROXIDE 480 ML BOTTLE TP SCH ×2 (08:11→20:23)
[2018-12-20] MEDS: ASCORBIC ACID 500 MG TABLET GT SCH (09:11)
[2018-12-20] MEDS: NYSTATIN/TRIAMCIN CREAM 15 GM TUBE TP SCH ×2 (09:11→20:23)
[2018-12-20] MEDS: COD LIVER OIL/ZINC OXIDE 120 GM TUBE TP SCH ×2 (09:11→20:23)
[2018-12-20] MEDS: MULTIVIT W/MINERALS 1 TAB TABLET GT SCH (09:11)
[2018-12-20] MEDS: ACIDOPHILUS/BULGARICUS 1 EACH TAB.CHEW GT SCH (09:11)
[2018-12-20] MEDS: CHLORHEXIDINE GLUCONATE 15 ML UDC MM SCH ×2 (09:11→20:22)
[2018-12-20] MEDS: LEVETIRACETAM SOL (5 ML) 100 MG/ML UDC GT SCH ×2 (09:11→20:22)
[2018-12-20] MEDS: CARBOXYMETHYLCELLULOSE SODIUM 0.4 ML DROPERETTE EACHEYE SCH (09:11)
[2018-12-20] MEDS: ZINC SULFATE 220 MG CAPSULE GT SCH (09:11)
[2018-12-20] MEDS: THERAHONEY GEL 1.5 OZ TUBE TP SCH ×2 (09:11→20:23)
[2018-12-20] MEDS: PROSTAT (PYXIS) 30 ML UDC GT SCH ×3 (09:11→17:12)
[2018-12-20] MEDS: MORPHINE SULFATE SOLN CONCENTRATED 20 MG/ML SL SCH ×2 (09:11→20:22)
[2018-12-20] MEDS: GLUCERNA 1.2 1,000 ML BOTTLE GT PRN (12:45)
[2018-12-20 20:00] VITALS: BP 124/62
[2018-12-21] MEDS: ALBUTEROL FS 2.5 MG/3 ML VIAL.NEB NEB SCH ×4 (00:45→19:20)
[2018-12-21] MEDS: IPRATROPIUM NEB FS 0.5 MG/2.5 ML AMPUL.NEB IH SCH ×4 (00:45→19:20)
[2018-12-21] MEDS: LEVOTHYROXINE SODIUM 88 MCG TABLET GT SCH (05:08)
[2018-12-21] MEDS: METOCLOPRAMIDE HCL 10 MG TABLET GT SCH ×4 (05:08→23:27)
[2018-12-21] MEDS: OMEPRAZOLE 20 MG CAPSULE.DR GT SCH (05:08)
[2018-12-21 07:35] VITALS: BP 102/43
[2018-12-21] MEDS: LEVETIRACETAM SOL (5 ML) 100 MG/ML UDC GT SCH ×2 (09:00→20:38)
[2018-12-21] MEDS: MORPHINE SULFATE SOLN CONCENTRATED 20 MG/ML SL SCH (09:00)
[2018-12-21] MEDS: ASCORBIC ACID 500 MG TABLET GT SCH (09:00)
[2018-12-21] MEDS: PROSTAT (PYXIS) 30 ML UDC GT SCH ×3 (09:00→17:17)
[2018-12-21] MEDS: THERAHONEY GEL 1.5 OZ TUBE TP SCH ×2 (09:00→20:39)
[2018-12-21] MEDS: ACIDOPHILUS/BULGARICUS 1 EACH TAB.CHEW GT SCH (09:00)
[2018-12-21] MEDS: CARBOXYMETHYLCELLULOSE SODIUM 0.4 ML DROPERETTE EACHEYE SCH (09:00)
[2018-12-21] MEDS: ZINC SULFATE 220 MG CAPSULE GT SCH (09:00)
[2018-12-21] MEDS: COD LIVER OIL/ZINC OXIDE 120 GM TUBE TP SCH ×2 (09:00→20:39)
[2018-12-21] MEDS: NYSTATIN/TRIAMCIN CREAM 15 GM TUBE TP SCH ×2 (09:00→20:39)
[2018-12-21] MEDS: CHLORHEXIDINE GLUCONATE 15 ML UDC MM SCH ×2 (09:00→20:38)
[2018-12-21] MEDS: MULTIVIT W/MINERALS 1 TAB TABLET GT SCH (09:00)
[2018-12-21] MEDS: HYDROGEN PEROXIDE 480 ML BOTTLE TP SCH ×2 (09:43→20:39)
--- NOTE | 2018-12-21 14:00 | NUR ---
Seen and examined by Dr. Ross, asked to assess resident's pain medication order. Patient appears comfortable during wound treatment and sacral wound has decreased in size. New order to change Morphine to PRN and give Tylenol routinely 30 minutes prior to wound treatment. Resident's daughter Reyna notified of new order, appreciated the call.
[2018-12-21] MEDS ORDERED: MORPHINE SULFATE SOLN CONCENTRATED 20 MG/ML SL PRN (14:30)
[2018-12-21] MEDS: GLUCERNA 1.2 1,000 ML BOTTLE GT PRN (17:17)
[2018-12-21 19:29] VITALS: BP 112/71
[2018-12-21] MEDS: ACETAMINOPHEN 650 MG/20.3 ML UDC GT SCH (20:38)
[2018-12-22] MEDS: ALBUTEROL FS 2.5 MG/3 ML VIAL.NEB NEB SCH ×4 (01:17→19:55)
[2018-12-22] MEDS: IPRATROPIUM NEB FS 0.5 MG/2.5 ML AMPUL.NEB IH SCH ×4 (01:18→19:55)
[2018-12-22] MEDS: OMEPRAZOLE 20 MG CAPSULE.DR GT SCH (05:22)
[2018-12-22] MEDS: LEVOTHYROXINE SODIUM 88 MCG TABLET GT SCH (05:22)
[2018-12-22] MEDS: METOCLOPRAMIDE HCL 10 MG TABLET GT SCH ×4 (05:22→23:18)
[2018-12-22 08:10] VITALS: BP 113/66
[2018-12-22] MEDS: PROSTAT (PYXIS) 30 ML UDC GT SCH ×3 (08:38→17:04)
[2018-12-22] MEDS: ZINC SULFATE 220 MG CAPSULE GT SCH (08:38)
[2018-12-22] MEDS: LEVETIRACETAM SOL (5 ML) 100 MG/ML UDC GT SCH ×2 (08:38→20:30)
[2018-12-22] MEDS: ASCORBIC ACID 500 MG TABLET GT SCH (08:38)
[2018-12-22] MEDS: ACETAMINOPHEN 650 MG/20.3 ML UDC GT SCH ×2 (08:38→20:30)
[2018-12-22] MEDS: MULTIVIT W/MINERALS 1 TAB TABLET GT SCH (08:38)
[2018-12-22] MEDS: ACIDOPHILUS/BULGARICUS 1 EACH TAB.CHEW GT SCH (08:38)
[2018-12-22] MEDS: CHLORHEXIDINE GLUCONATE 15 ML UDC MM SCH ×2 (08:38→20:30)
[2018-12-22] MEDS: CARBOXYMETHYLCELLULOSE SODIUM 0.4 ML DROPERETTE EACHEYE SCH (08:38)
[2018-12-22] MEDS: COD LIVER OIL/ZINC OXIDE 120 GM TUBE TP SCH ×2 (09:38→20:30)
[2018-12-22] MEDS: NYSTATIN/TRIAMCIN CREAM 15 GM TUBE TP SCH ×2 (09:38→20:30)
[2018-12-22] MEDS: HYDROGEN PEROXIDE 480 ML BOTTLE TP SCH ×2 (09:38→20:30)
[2018-12-22] MEDS: THERAHONEY GEL 1.5 OZ TUBE TP SCH ×2 (09:38→20:30)
[2018-12-22 19:33] VITALS: BP 128/56
[2018-12-22] MEDS: GLUCERNA 1.2 1,000 ML BOTTLE GT PRN (21:18)
[2018-12-23] MEDS: IPRATROPIUM NEB FS 0.5 MG/2.5 ML AMPUL.NEB IH SCH ×4 (01:26→19:39)
[2018-12-23] MEDS: ALBUTEROL FS 2.5 MG/3 ML VIAL.NEB NEB SCH ×4 (01:26→19:39)
[2018-12-23] MEDS: METOCLOPRAMIDE HCL 10 MG TABLET GT SCH ×3 (05:23→17:40)
[2018-12-23] MEDS: OMEPRAZOLE 20 MG CAPSULE.DR GT SCH (05:23)
[2018-12-23] MEDS: LEVOTHYROXINE SODIUM 88 MCG TABLET GT SCH (05:23)
[2018-12-23 07:50] VITALS: BP 151/77
[2018-12-23] MEDS: ACETAMINOPHEN 650 MG/20.3 ML UDC GT SCH ×2 (08:13→21:19)
[2018-12-23] MEDS: ACIDOPHILUS/BULGARICUS 1 EACH TAB.CHEW GT SCH (08:13)
[2018-12-23] MEDS: CARBOXYMETHYLCELLULOSE SODIUM 0.4 ML DROPERETTE EACHEYE SCH (08:13)
[2018-12-23] MEDS: MULTIVIT W/MINERALS 1 TAB TABLET GT SCH (08:13)
[2018-12-23] MEDS: ZINC SULFATE 220 MG CAPSULE GT SCH (08:13)
[2018-12-23] MEDS: CHLORHEXIDINE GLUCONATE 15 ML UDC MM SCH ×2 (08:13→21:19)
[2018-12-23] MEDS: LEVETIRACETAM SOL (5 ML) 100 MG/ML UDC GT SCH ×2 (08:13→21:19)
[2018-12-23] MEDS: PROSTAT (PYXIS) 30 ML UDC GT SCH ×3 (08:13→17:40)
[2018-12-23] MEDS: ASCORBIC ACID 500 MG TABLET GT SCH (08:13)
[2018-12-23] MEDS: HYDROGEN PEROXIDE 480 ML BOTTLE TP SCH ×2 (09:00→21:19)
[2018-12-23] MEDS: COD LIVER OIL/ZINC OXIDE 120 GM TUBE TP SCH ×2 (09:21→21:19)
[2018-12-23] MEDS: NYSTATIN/TRIAMCIN CREAM 15 GM TUBE TP SCH ×2 (09:21→21:19)
[2018-12-23] MEDS: THERAHONEY GEL 1.5 OZ TUBE TP SCH ×2 (09:21→21:19)
[2018-12-23 20:01] VITALS: BP 148/73
[2018-12-24] MEDS: METOCLOPRAMIDE HCL 10 MG TABLET GT SCH ×5 (00:02→23:38)
[2018-12-24] MEDS: IPRATROPIUM NEB FS 0.5 MG/2.5 ML AMPUL.NEB IH SCH ×4 (01:29→19:24)
[2018-12-24] MEDS: ALBUTEROL FS 2.5 MG/3 ML VIAL.NEB NEB SCH ×4 (01:29→19:24)
[2018-12-24] MEDS: LEVOTHYROXINE SODIUM 88 MCG TABLET GT SCH (06:03)
[2018-12-24] MEDS: OMEPRAZOLE 20 MG CAPSULE.DR GT SCH (06:03)
[2018-12-24] MEDS: NYSTATIN/TRIAMCIN CREAM 15 GM TUBE TP SCH ×2 (07:24→21:11)
[2018-12-24 07:36] VITALS: BP 147/51
[2018-12-24] MEDS: PROSTAT (PYXIS) 30 ML UDC GT SCH ×3 (08:13→17:47)
[2018-12-24] MEDS: LEVETIRACETAM SOL (5 ML) 100 MG/ML UDC GT SCH ×2 (08:13→20:25)
[2018-12-24] MEDS: ACIDOPHILUS/BULGARICUS 1 EACH TAB.CHEW GT SCH ×2 (08:13→18:52)
[2018-12-24] MEDS: CARBOXYMETHYLCELLULOSE SODIUM 0.4 ML DROPERETTE EACHEYE SCH (08:13)
[2018-12-24] MEDS: ACETAMINOPHEN 650 MG/20.3 ML UDC GT SCH ×2 (08:13→20:25)
[2018-12-24] MEDS: MULTIVIT W/MINERALS 1 TAB TABLET GT SCH (08:13)
[2018-12-24] MEDS: ZINC SULFATE 220 MG CAPSULE GT SCH (08:13)
[2018-12-24] MEDS: CHLORHEXIDINE GLUCONATE 15 ML UDC MM SCH ×2 (08:13→20:26)
[2018-12-24] MEDS: ASCORBIC ACID 500 MG TABLET GT SCH (08:13)
[2018-12-24] MEDS: THERAHONEY GEL 1.5 OZ TUBE TP SCH ×2 (09:00→21:11)
[2018-12-24] MEDS: COD LIVER OIL/ZINC OXIDE 120 GM TUBE TP SCH ×2 (09:00→20:26)
[2018-12-24] MEDS: HYDROGEN PEROXIDE 480 ML BOTTLE TP SCH ×2 (09:00→21:00)
[2018-12-24] MEDS: GLUCERNA 1.2 1,000 ML BOTTLE GT PRN (15:48)
--- NOTE | 2018-12-24 17:27 | NUR ---
Pt has had 4 episodes of loose stools. Notified FORMING PRESS OPERATOR Becca Smith. She said she will see pt later today.
[2018-12-24 19:43] VITALS: BP 147/72
[2018-12-25] MEDS: ALBUTEROL FS 2.5 MG/3 ML VIAL.NEB NEB SCH ×4 (01:24→19:52)
[2018-12-25] MEDS: IPRATROPIUM NEB FS 0.5 MG/2.5 ML AMPUL.NEB IH SCH ×4 (01:24→19:52)
[2018-12-25] MEDS: METOCLOPRAMIDE HCL 10 MG TABLET GT SCH ×4 (05:15→23:28)
[2018-12-25] MEDS: OMEPRAZOLE 20 MG CAPSULE.DR GT SCH (05:15)
[2018-12-25] MEDS: LEVOTHYROXINE SODIUM 88 MCG TABLET GT SCH (05:15)
[2018-12-25 07:57] VITALS: BP 140/75
[2018-12-25] MEDS: LEVETIRACETAM SOL (5 ML) 100 MG/ML UDC GT SCH ×2 (08:52→20:24)
[2018-12-25] MEDS: CARBOXYMETHYLCELLULOSE SODIUM 0.4 ML DROPERETTE EACHEYE SCH (08:52)
[2018-12-25] MEDS: ZINC SULFATE 220 MG CAPSULE GT SCH (08:53)
[2018-12-25] MEDS: ACETAMINOPHEN 650 MG/20.3 ML UDC GT SCH ×2 (08:53→20:24)
[2018-12-25] MEDS: MULTIVIT W/MINERALS 1 TAB TABLET GT SCH (08:53)
[2018-12-25] MEDS: CHLORHEXIDINE GLUCONATE 15 ML UDC MM SCH ×2 (08:53→20:24)
[2018-12-25] MEDS: ACIDOPHILUS/BULGARICUS 1 EACH TAB.CHEW GT SCH ×2 (08:53→17:01)
[2018-12-25] MEDS: ASCORBIC ACID 500 MG TABLET GT SCH (08:53)
[2018-12-25] MEDS: PROSTAT (PYXIS) 30 ML UDC GT SCH ×3 (08:53→17:01)
[2018-12-25] MEDS: HYDROGEN PEROXIDE 480 ML BOTTLE TP SCH ×2 (09:20→20:18)
[2018-12-25] MEDS: NYSTATIN/TRIAMCIN CREAM 15 GM TUBE TP SCH ×2 (09:30→21:36)
[2018-12-25] MEDS: THERAHONEY GEL 1.5 OZ TUBE TP SCH ×2 (09:30→21:36)
[2018-12-25] MEDS: COD LIVER OIL/ZINC OXIDE 120 GM TUBE TP SCH ×2 (09:30→21:36)
[2018-12-25] MEDS ORDERED: LOPERAMIDE HCL UDC(2 MG/10 ML) 2 MG/10 ML UDC GT ONE (13:00)
--- NOTE | 2018-12-25 13:00 | NUR ---
Seen by Dr Ross. Notified him that pt has been having diarrhea and MULTI OPERATION FORMING MACHINE SETTER Becca Smith ordered to increase Floranex from daily to BID. Dr Ross ordered to give Imodium 4 mg GT x 1 now, Immodium 2 mg GT after each loose bowel movement up to 5 times a day. Dilma Orellana.
[2018-12-26] MEDS: ALBUTEROL FS 2.5 MG/3 ML VIAL.NEB NEB SCH ×4 (00:45→19:58)
[2018-12-26] MEDS: IPRATROPIUM NEB FS 0.5 MG/2.5 ML AMPUL.NEB IH SCH ×4 (00:45→19:57)
--- NOTE | 2018-12-26 03:47 | NUR ---
PT RCVD TRACH'D ON COOL AEROSOL WITH CHARTED SETTINGS. PT NOLVIA TX WELL. SX DONE. PT TRACH IS PATENT AND SECURE. AMBU BAG AT BEDSIDE. Addendum: 12/26/18 at 0347 by ALEXEY MADRID RT Amended: Links added.
[2018-12-26] MEDS: LEVOTHYROXINE SODIUM 88 MCG TABLET GT SCH (05:24)
[2018-12-26] MEDS: OMEPRAZOLE 20 MG CAPSULE.DR GT SCH (05:24)
[2018-12-26] MEDS: METOCLOPRAMIDE HCL 10 MG TABLET GT SCH ×4 (05:24→23:49)
[2018-12-26 07:32] VITALS: BP 113/66
[2018-12-26] MEDS: HYDROGEN PEROXIDE 480 ML BOTTLE TP SCH ×2 (08:04→21:04)
[2018-12-26] MEDS: ASCORBIC ACID 500 MG TABLET GT SCH (08:48)
[2018-12-26] MEDS: ZINC SULFATE 220 MG CAPSULE GT SCH (08:48)
[2018-12-26] MEDS: NYSTATIN/TRIAMCIN CREAM 15 GM TUBE TP SCH ×2 (08:48→21:04)
[2018-12-26] MEDS: CHLORHEXIDINE GLUCONATE 15 ML UDC MM SCH ×2 (08:48→21:03)
[2018-12-26] MEDS: PROSTAT (PYXIS) 30 ML UDC GT SCH ×3 (08:48→17:52)
[2018-12-26] MEDS: MULTIVIT W/MINERALS 1 TAB TABLET GT SCH (08:48)
[2018-12-26] MEDS: CARBOXYMETHYLCELLULOSE SODIUM 0.4 ML DROPERETTE EACHEYE SCH (08:48)
[2018-12-26] MEDS: ACIDOPHILUS/BULGARICUS 1 EACH TAB.CHEW GT SCH ×2 (08:48→17:52)
[2018-12-26] MEDS: ACETAMINOPHEN 650 MG/20.3 ML UDC GT SCH ×2 (08:48→21:03)
[2018-12-26] MEDS: THERAHONEY GEL 1.5 OZ TUBE TP SCH ×2 (08:48→21:04)
[2018-12-26] MEDS: COD LIVER OIL/ZINC OXIDE 120 GM TUBE TP SCH ×2 (08:48→21:04)
[2018-12-26] MEDS: LEVETIRACETAM SOL (5 ML) 100 MG/ML UDC GT SCH ×2 (08:48→21:03)
--- NOTE | 2018-12-26 12:10 | NUR ---
RT RECEIVED PT ON COOL AEROSOL WITH SETTINGS PER MD ORDER. SPARE TRACH AND AMBU BAG AT HEAD OF BED. TX GIVEN ORDERED. NO ADVERSE REACTIONS OBSERVED. SUCTIONED MODERATE AMOUNTS OF THICK, PALE YELLOW SECRETIONS. TRACH CARE DONE. AIRWAY SECURED AND PATENT. NO SIGNS OF DISTRESS NOTED AT THIS TIME. WILL CONTINUE TO MONITOR PT FOR ANY CHANGE OF CONDITION.
[2018-12-26] MEDS: LOPERAMIDE HCL UDC(2 MG/10 ML) 2 MG/10 ML UDC GT PRN (18:44)
[2018-12-26] MEDS: GLUCERNA 1.2 1,000 ML BOTTLE GT PRN (18:44)
--- NOTE | 2018-12-26 20:10 | NUR ---
PT RCVD TRACH SHILEY 6 ON COOL AEROSOL 28% 5L. Q6 BREATHING TX GIVEN AND NO ADVERSE REACTION NOTED. SUCTIONED MODERATE AMOUNT OF WHITE THICK SECRETIONS. NO RESPIRATORY DISTRESS NOTED AT THIS TIME. AMBU BAG AT BEDSIDE. WILL CONTINUE TO MONITOR.
[2018-12-26 20:25] VITALS: BP 131/75
[2018-12-27] MEDS: IPRATROPIUM NEB FS 0.5 MG/2.5 ML AMPUL.NEB IH SCH ×4 (01:26→19:48)
[2018-12-27] MEDS: ALBUTEROL FS 2.5 MG/3 ML VIAL.NEB NEB SCH ×4 (01:26→19:48)
[2018-12-27] MEDS: OMEPRAZOLE 20 MG CAPSULE.DR GT SCH (05:57)
[2018-12-27] MEDS: METOCLOPRAMIDE HCL 10 MG TABLET GT SCH ×3 (05:57→17:14)
[2018-12-27] MEDS: LEVOTHYROXINE SODIUM 88 MCG TABLET GT SCH (05:57)
[2018-12-27 07:26] VITALS: BP 128/73
[2018-12-27] MEDS: HYDROGEN PEROXIDE 480 ML BOTTLE TP SCH ×2 (08:11→21:02)
[2018-12-27] MEDS: ASCORBIC ACID 500 MG TABLET GT SCH (09:00)
[2018-12-27] MEDS: ACETAMINOPHEN 650 MG/20.3 ML UDC GT SCH ×2 (09:00→21:05)
[2018-12-27] MEDS: CHLORHEXIDINE GLUCONATE 15 ML UDC MM SCH ×2 (09:00→21:05)
[2018-12-27] MEDS: CARBOXYMETHYLCELLULOSE SODIUM 0.4 ML DROPERETTE EACHEYE SCH (09:00)
[2018-12-27] MEDS: NYSTATIN/TRIAMCIN CREAM 15 GM TUBE TP SCH ×2 (09:00→21:05)
[2018-12-27] MEDS: PROSTAT (PYXIS) 30 ML UDC GT SCH ×3 (09:00→17:14)
[2018-12-27] MEDS: MULTIVIT W/MINERALS 1 TAB TABLET GT SCH (09:00)
[2018-12-27] MEDS: LEVETIRACETAM SOL (5 ML) 100 MG/ML UDC GT SCH ×2 (09:00→21:05)
[2018-12-27] MEDS: ZINC SULFATE 220 MG CAPSULE GT SCH (09:00)
[2018-12-27] MEDS: THERAHONEY GEL 1.5 OZ TUBE TP SCH ×2 (09:00→21:05)
[2018-12-27] MEDS: ACIDOPHILUS/BULGARICUS 1 EACH TAB.CHEW GT SCH ×2 (09:00→17:14)
[2018-12-27] MEDS: COD LIVER OIL/ZINC OXIDE 120 GM TUBE TP SCH ×2 (09:00→21:05)
--- NOTE | 2018-12-27 10:10 | NUR ---
RT RCV'D PT ON COOL AEROSOL ON 28%. SPARE TRACH AND AMBU BAG AT HEAD OF BED. TX GIVEN ORDERED. NO ADVERSE REACTIONS OBSERVED. SUCTIONED MODERATE AMOUNTS OF THICK, PALE YELLOW SECRETIONS. TRACH CARE DONE. AIRWAY SECURED AND PATENT. NO SIGNS OF DISTRESS NOTED AT THIS TIME. WILL CONTINUE TO MONITOR PT FOR ANY CHANGES.
[2018-12-27] MEDS: GLUCERNA 1.2 1,000 ML BOTTLE GT PRN (12:53)
--- NOTE | 2018-12-27 15:23 | NUR ---
Family Invitation to IDT: SW contacted patients responsible green party/ Daughter, Reyna Galindo [phone] to the next IDT meeting where the patients plan of care is to be reviewed on 01/04/19 12:30pm-1:30 pm. Per Reyna, she cannot attend.
[2018-12-27 20:00] VITALS: BP 123/58
--- NOTE | 2018-12-27 21:57 | NUR ---
RT NOTE PATIENT RECEIVED TRACHED ON COOL AEROSOL @ 28%. AMBU BAG/BACK UP TRACH @ BEDSIDE. TX GIVEN, NO ADVERSE REACTIONS NOTED. SX DONE, TRACH SECURED AND PATENT. WATER LEVEL GOOD. WILL CONTINUE TO MONITOR T/O SHIFT. Addendum: 12/27/18 at 2158 by LETITIA BENITES RT Amended: Links added.
[2018-12-28] MEDS: METOCLOPRAMIDE HCL 10 MG TABLET GT SCH ×5 (00:13→23:39)
[2018-12-28] MEDS: IPRATROPIUM NEB FS 0.5 MG/2.5 ML AMPUL.NEB IH SCH ×4 (01:04→19:51)
[2018-12-28] MEDS: ALBUTEROL FS 2.5 MG/3 ML VIAL.NEB NEB SCH ×4 (01:04→19:52)
[2018-12-28] MEDS: LEVOTHYROXINE SODIUM 88 MCG TABLET GT SCH (05:23)
[2018-12-28] MEDS: OMEPRAZOLE 20 MG CAPSULE.DR GT SCH (05:23)
[2018-12-28 07:23] VITALS: BP 124/65
[2018-12-28] MEDS: HYDROGEN PEROXIDE 480 ML BOTTLE TP SCH ×2 (08:00→20:32)
[2018-12-28] MEDS: LEVETIRACETAM SOL (5 ML) 100 MG/ML UDC GT SCH ×2 (09:27→20:31)
[2018-12-28] MEDS: ACETAMINOPHEN 650 MG/20.3 ML UDC GT SCH ×2 (09:27→20:31)
[2018-12-28] MEDS: ASCORBIC ACID 500 MG TABLET GT SCH (09:27)
[2018-12-28] MEDS: PROSTAT (PYXIS) 30 ML UDC GT SCH ×3 (09:27→17:03)
[2018-12-28] MEDS: THERAHONEY GEL 1.5 OZ TUBE TP SCH ×2 (09:27→20:33)
[2018-12-28] MEDS: ZINC SULFATE 220 MG CAPSULE GT SCH (09:27)
[2018-12-28] MEDS: COD LIVER OIL/ZINC OXIDE 120 GM TUBE TP SCH ×2 (09:27→20:32)
[2018-12-28] MEDS: CARBOXYMETHYLCELLULOSE SODIUM 0.4 ML DROPERETTE EACHEYE SCH (09:27)
[2018-12-28] MEDS: ACIDOPHILUS/BULGARICUS 1 EACH TAB.CHEW GT SCH ×2 (09:27→17:03)
[2018-12-28] MEDS: MULTIVIT W/MINERALS 1 TAB TABLET GT SCH (09:27)
[2018-12-28] MEDS: NYSTATIN/TRIAMCIN CREAM 15 GM TUBE TP SCH ×2 (09:27→20:33)
[2018-12-28] MEDS: CHLORHEXIDINE GLUCONATE 15 ML UDC MM SCH ×2 (09:27→20:31)
[2018-12-28] MEDS: GLUCERNA 1.2 1,000 ML BOTTLE GT PRN (12:32)
--- NOTE | 2018-12-28 13:00 | NUR ---
Seen and examined by Dr. Blum, no new order given.
[2018-12-28 20:01] VITALS: BP 134/75
[2018-12-29] MEDS: IPRATROPIUM NEB FS 0.5 MG/2.5 ML AMPUL.NEB IH SCH ×4 (01:31→20:03)
[2018-12-29] MEDS: ALBUTEROL FS 2.5 MG/3 ML VIAL.NEB NEB SCH ×4 (01:31→20:03)
--- NOTE | 2018-12-29 04:48 | NUR ---
RT PATIENT WAS RECEIVED ON 28% COOL AEROSOL. HHN INLINE TREATMENT WAS GIVEN,NO ADVERSE REACTION NOTED.PATIENT STABLE THROUGHOUT THE SHIFT. AIRWAY PATENT AND SECURED, WILL CONTINUE TO MONITOR. Addendum: 12/29/18 at 0451 by DAKSHA SHARP RT Amended: Links added.
[2018-12-29] MEDS: LEVOTHYROXINE SODIUM 88 MCG TABLET GT SCH (05:18)
[2018-12-29] MEDS: METOCLOPRAMIDE HCL 10 MG TABLET GT SCH ×4 (05:18→23:51)
[2018-12-29] MEDS: OMEPRAZOLE 20 MG CAPSULE.DR GT SCH (05:18)
[2018-12-29 07:35] VITALS: BP 132/69
[2018-12-29] MEDS: CHLORHEXIDINE GLUCONATE 15 ML UDC MM SCH ×2 (08:46→20:30)
[2018-12-29] MEDS: PROSTAT (PYXIS) 30 ML UDC GT SCH ×3 (08:46→17:00)
[2018-12-29] MEDS: LEVETIRACETAM SOL (5 ML) 100 MG/ML UDC GT SCH ×2 (08:46→20:30)
[2018-12-29] MEDS: ASCORBIC ACID 500 MG TABLET GT SCH (08:46)
[2018-12-29] MEDS: CARBOXYMETHYLCELLULOSE SODIUM 0.4 ML DROPERETTE EACHEYE SCH (08:46)
[2018-12-29] MEDS: ACETAMINOPHEN 650 MG/20.3 ML UDC GT SCH ×2 (08:46→20:30)
[2018-12-29] MEDS: MULTIVIT W/MINERALS 1 TAB TABLET GT SCH (08:46)
[2018-12-29] MEDS: ZINC SULFATE 220 MG CAPSULE GT SCH (08:46)
[2018-12-29] MEDS: ACIDOPHILUS/BULGARICUS 1 EACH TAB.CHEW GT SCH ×2 (08:46→17:00)
[2018-12-29] MEDS: COD LIVER OIL/ZINC OXIDE 120 GM TUBE TP SCH ×2 (09:00→20:30)
[2018-12-29] MEDS: NYSTATIN/TRIAMCIN CREAM 15 GM TUBE TP SCH ×2 (09:00→20:30)
[2018-12-29] MEDS: HYDROGEN PEROXIDE 480 ML BOTTLE TP SCH ×2 (09:00→20:30)
[2018-12-29] MEDS: THERAHONEY GEL 1.5 OZ TUBE TP SCH ×2 (09:00→20:30)
[2018-12-29] MEDS: GLUCERNA 1.2 1,000 ML BOTTLE GT PRN (15:01)
[2018-12-29 20:16] VITALS: BP 113/43
--- NOTE | 2018-12-29 20:18 | NUR ---
RT note PT received trached on Cool Aerosol FIO2 28%. No signs of resp distress/SOB noted. PT suctioned. HHN TX given. No adverse reactions noted. Ambubag and back up trach at head of bed. Will cont to monitor. Addendum: 12/30/18 at 0618 by GAVIN MARTINEZ RT Amended: Links added.
[2018-12-30] MEDS: IPRATROPIUM NEB FS 0.5 MG/2.5 ML AMPUL.NEB IH SCH ×4 (01:43→19:29)
[2018-12-30] MEDS: ALBUTEROL FS 2.5 MG/3 ML VIAL.NEB NEB SCH ×4 (01:43→19:29)
[2018-12-30] MEDS: OMEPRAZOLE 20 MG CAPSULE.DR GT SCH (05:01)
[2018-12-30] MEDS: LEVOTHYROXINE SODIUM 88 MCG TABLET GT SCH (05:01)
[2018-12-30] MEDS: METOCLOPRAMIDE HCL 10 MG TABLET GT SCH ×3 (05:01→17:39)
[2018-12-30 07:35] VITALS: BP 122/75
[2018-12-30] MEDS: HYDROGEN PEROXIDE 480 ML BOTTLE TP SCH ×2 (08:23→21:00)
[2018-12-30] MEDS: ACETAMINOPHEN 650 MG/20.3 ML UDC GT SCH ×2 (08:37→20:06)
[2018-12-30] MEDS: PROSTAT (PYXIS) 30 ML UDC GT SCH ×3 (08:37→17:39)
[2018-12-30] MEDS: ACIDOPHILUS/BULGARICUS 1 EACH TAB.CHEW GT SCH ×2 (08:37→17:39)
[2018-12-30] MEDS: CARBOXYMETHYLCELLULOSE SODIUM 0.4 ML DROPERETTE EACHEYE SCH (08:37)
[2018-12-30] MEDS: ZINC SULFATE 220 MG CAPSULE GT SCH (08:38)
[2018-12-30] MEDS: ASCORBIC ACID 500 MG TABLET GT SCH (08:38)
[2018-12-30] MEDS: CHLORHEXIDINE GLUCONATE 15 ML UDC MM SCH ×2 (08:43→20:06)
[2018-12-30] MEDS: LEVETIRACETAM SOL (5 ML) 100 MG/ML UDC GT SCH ×2 (08:43→20:05)
[2018-12-30] MEDS: MULTIVIT W/MINERALS 1 TAB TABLET GT SCH (08:43)
[2018-12-30] MEDS: NYSTATIN/TRIAMCIN CREAM 15 GM TUBE TP SCH ×2 (09:00→20:06)
[2018-12-30] MEDS: THERAHONEY GEL 1.5 OZ TUBE TP SCH ×2 (09:00→20:07)
[2018-12-30] MEDS: COD LIVER OIL/ZINC OXIDE 120 GM TUBE TP SCH ×2 (09:00→20:06)
--- NOTE | 2018-12-30 14:59 | NUR ---
Seen and examined by Dr. Ross, NNO given.
[2018-12-30] MEDS: GLUCERNA 1.2 1,000 ML BOTTLE GT PRN (18:10)
[2018-12-30 20:20] VITALS: BP 122/72
[2018-12-31] MEDS: METOCLOPRAMIDE HCL 10 MG TABLET GT SCH ×5 (00:42→23:35)
[2018-12-31] MEDS: ALBUTEROL FS 2.5 MG/3 ML VIAL.NEB NEB SCH ×4 (02:03→19:10)
[2018-12-31] MEDS: IPRATROPIUM NEB FS 0.5 MG/2.5 ML AMPUL.NEB IH SCH ×4 (02:03→19:10)
[2018-12-31] MEDS: LEVOTHYROXINE SODIUM 88 MCG TABLET GT SCH (05:18)
[2018-12-31] MEDS: OMEPRAZOLE 20 MG CAPSULE.DR GT SCH (05:18)
[2018-12-31] MEDS: CARBOXYMETHYLCELLULOSE SODIUM 0.4 ML DROPERETTE EACHEYE SCH (08:18)
[2018-12-31] MEDS: ACIDOPHILUS/BULGARICUS 1 EACH TAB.CHEW GT SCH ×2 (08:18→17:00)
[2018-12-31] MEDS: LEVETIRACETAM SOL (5 ML) 100 MG/ML UDC GT SCH ×2 (08:18→21:11)
[2018-12-31] MEDS: CHLORHEXIDINE GLUCONATE 15 ML UDC MM SCH ×2 (08:19→21:11)
[2018-12-31] MEDS: ACETAMINOPHEN 650 MG/20.3 ML UDC GT SCH ×2 (08:19→21:11)
[2018-12-31] MEDS: ZINC SULFATE 220 MG CAPSULE GT SCH (08:19)
[2018-12-31] MEDS: ASCORBIC ACID 500 MG TABLET GT SCH (08:19)
[2018-12-31] MEDS: PROSTAT (PYXIS) 30 ML UDC GT SCH ×3 (08:19→17:00)
[2018-12-31] MEDS: MULTIVIT W/MINERALS 1 TAB TABLET GT SCH (08:19)
[2018-12-31 08:54] VITALS: BP 125/70
[2018-12-31] MEDS: NYSTATIN/TRIAMCIN CREAM 15 GM TUBE TP SCH ×2 (09:00→21:12)
[2018-12-31] MEDS: THERAHONEY GEL 1.5 OZ TUBE TP SCH ×2 (09:00→21:12)
[2018-12-31] MEDS: COD LIVER OIL/ZINC OXIDE 120 GM TUBE TP SCH ×4 (09:00→21:11)
[2018-12-31] MEDS: HYDROGEN PEROXIDE 480 ML BOTTLE TP SCH ×2 (09:00→21:00)
[2018-12-31] MEDS: LOPERAMIDE HCL UDC(2 MG/10 ML) 2 MG/10 ML UDC GT PRN (14:26)
[2018-12-31] MEDS: GLUCERNA 1.2 1,000 ML BOTTLE GT PRN (17:03)
--- NOTE | 2018-12-31 18:00 | NUR ---
Noted with skin maceration on left and right inner thigh and perianal area secondary to loose BM. No bleeding noted, no s/s of pain. Treatment ordered. Katelin (daughter) informed at bedside. Will continue to monitor.
[2018-12-31 20:20] VITALS: BP 132/72
[2019-01-01] MEDS: IPRATROPIUM NEB FS 0.5 MG/2.5 ML AMPUL.NEB IH SCH ×4 (00:33→19:04)
[2019-01-01] MEDS: ALBUTEROL FS 2.5 MG/3 ML VIAL.NEB NEB SCH ×4 (00:33→19:04)
[2019-01-01] MEDS: OMEPRAZOLE 20 MG CAPSULE.DR GT SCH (05:04)
[2019-01-01] MEDS: LEVOTHYROXINE SODIUM 88 MCG TABLET GT SCH (05:04)
[2019-01-01] MEDS: METOCLOPRAMIDE HCL 10 MG TABLET GT SCH ×3 (05:04→17:37)
[2019-01-01 07:39] VITALS: BP 135/60
--- NOTE | 2019-01-01 08:10 | NUR ---
RT Pt received trached on cool aerosol. HHN tx given with no adverse reactions. No SOB or respiratory distress noted. Addendum: 01/01/19 at 0939 by LIDYA POPE RT Amended: Links added.
[2019-01-01] MEDS: CHLORHEXIDINE GLUCONATE 15 ML UDC MM SCH ×2 (08:36→20:05)
[2019-01-01] MEDS: ACIDOPHILUS/BULGARICUS 1 EACH TAB.CHEW GT SCH ×2 (08:36→17:37)
[2019-01-01] MEDS: PROSTAT (PYXIS) 30 ML UDC GT SCH ×3 (08:36→17:37)
[2019-01-01] MEDS: CARBOXYMETHYLCELLULOSE SODIUM 0.4 ML DROPERETTE EACHEYE SCH (08:36)
[2019-01-01] MEDS: ASCORBIC ACID 500 MG TABLET GT SCH (08:36)
[2019-01-01] MEDS: MULTIVIT W/MINERALS 1 TAB TABLET GT SCH (08:36)
[2019-01-01] MEDS: LEVETIRACETAM SOL (5 ML) 100 MG/ML UDC GT SCH ×2 (08:36→20:04)
[2019-01-01] MEDS: ZINC SULFATE 220 MG CAPSULE GT SCH (08:36)
[2019-01-01] MEDS: ACETAMINOPHEN 650 MG/20.3 ML UDC GT SCH ×2 (08:37→20:04)
[2019-01-01] MEDS: HYDROGEN PEROXIDE 480 ML BOTTLE TP SCH ×2 (09:00→21:00)
[2019-01-01] MEDS: THERAHONEY GEL 1.5 OZ TUBE TP SCH ×2 (09:15→20:05)
[2019-01-01] MEDS: COD LIVER OIL/ZINC OXIDE 120 GM TUBE TP SCH ×6 (09:15→20:05)
[2019-01-01] MEDS: NYSTATIN/TRIAMCIN CREAM 15 GM TUBE TP SCH ×2 (09:15→20:05)
[2019-01-01] MEDS: GLUCERNA 1.2 1,000 ML BOTTLE GT PRN (15:00)
[2019-01-01 19:50] VITALS: BP 125/59
[2019-01-02] MEDS: METOCLOPRAMIDE HCL 10 MG TABLET GT SCH ×5 (00:43→23:13)
[2019-01-02] MEDS: ALBUTEROL FS 2.5 MG/3 ML VIAL.NEB NEB SCH ×4 (00:56→20:02)
[2019-01-02] MEDS: IPRATROPIUM NEB FS 0.5 MG/2.5 ML AMPUL.NEB IH SCH ×4 (00:56→20:02)
[2019-01-02] MEDS: LEVOTHYROXINE SODIUM 88 MCG TABLET GT SCH (05:02)
[2019-01-02] MEDS: OMEPRAZOLE 20 MG CAPSULE.DR GT SCH (05:03)
[2019-01-02 07:50] VITALS: BP 141/82
[2019-01-02] MEDS: CHLORHEXIDINE GLUCONATE 15 ML UDC MM SCH ×2 (08:04→20:00)
[2019-01-02] MEDS: LEVETIRACETAM SOL (5 ML) 100 MG/ML UDC GT SCH ×2 (08:04→20:00)
[2019-01-02] MEDS: ASCORBIC ACID 500 MG TABLET GT SCH (08:04)
[2019-01-02] MEDS: CARBOXYMETHYLCELLULOSE SODIUM 0.4 ML DROPERETTE EACHEYE SCH (08:04)
[2019-01-02] MEDS: MULTIVIT W/MINERALS 1 TAB TABLET GT SCH (08:04)
[2019-01-02] MEDS: PROSTAT (PYXIS) 30 ML UDC GT SCH ×3 (08:04→17:00)
[2019-01-02] MEDS: ACIDOPHILUS/BULGARICUS 1 EACH TAB.CHEW GT SCH ×2 (08:04→17:00)
[2019-01-02] MEDS: ACETAMINOPHEN 650 MG/20.3 ML UDC GT SCH ×2 (08:04→20:00)
[2019-01-02] MEDS: ZINC SULFATE 220 MG CAPSULE GT SCH (08:04)
[2019-01-02] MEDS: HYDROGEN PEROXIDE 480 ML BOTTLE TP SCH ×2 (08:16→20:04)
[2019-01-02] MEDS: THERAHONEY GEL 1.5 OZ TUBE TP SCH (09:00)
[2019-01-02] MEDS: COD LIVER OIL/ZINC OXIDE 120 GM TUBE TP SCH ×6 (09:00→20:03)
[2019-01-02] MEDS: NYSTATIN/TRIAMCIN CREAM 15 GM TUBE TP SCH (09:00)
[2019-01-02] MEDS: GLUCERNA 1.2 1,000 ML BOTTLE GT PRN (12:52)
--- NOTE | 2019-01-02 17:00 | NUR ---
Jamil catheter noted dislodged Jamil catheter with inflated balloon outside meatus. New Jamil-catheter inserted. Tolerated procedure well. Kept clean and comfortable. All needs met and attended.
[2019-01-02 19:43] VITALS: BP 120/65
--- NOTE | 2019-01-02 20:00 | NUR ---
SUBACUTE/RN NOTES RECEIVED PATIENT IN BED, HOB ELEVATED. SKIN WARM TO TOUCH, DANIELS CATHETER PATENT WITH URINE OUTPUT. GTUBE IN PLACED WITH ZERO RESIDUAL. TOLERATED MEDICATION VIA GTUBE, MONITORING FOR ANY CHANGES.
--- NOTE | 2019-01-02 20:13 | NUR ---
PT RCVD TRACH SHILEY 6 ON COOL AEROSOL 28% 5L. Q6 BREATHING TX GIVEN AND NO ADVERSE REACTION NOTED. SX DONE PRN. NO RESPIRATORY DISTRESS NOTED AT THIS TIME. AMBU BAG AT BEDSIDE. WILL CONTINUE TO MONITOR.
[2019-01-03] MEDS: ALBUTEROL FS 2.5 MG/3 ML VIAL.NEB NEB SCH ×4 (01:37→20:07)
[2019-01-03] MEDS: IPRATROPIUM NEB FS 0.5 MG/2.5 ML AMPUL.NEB IH SCH ×4 (01:37→20:07)
[2019-01-03] MEDS: LEVOTHYROXINE SODIUM 88 MCG TABLET GT SCH (05:00)
[2019-01-03] MEDS: OMEPRAZOLE 20 MG CAPSULE.DR GT SCH (05:00)
[2019-01-03] MEDS: METOCLOPRAMIDE HCL 10 MG TABLET GT SCH ×3 (05:00→18:04)
[2019-01-03 08:00] VITALS: BP 126/71
[2019-01-03] MEDS: LEVETIRACETAM SOL (5 ML) 100 MG/ML UDC GT SCH ×2 (08:28→20:33)
[2019-01-03] MEDS: ACETAMINOPHEN 650 MG/20.3 ML UDC GT SCH ×2 (08:28→20:32)
[2019-01-03] MEDS: CARBOXYMETHYLCELLULOSE SODIUM 0.4 ML DROPERETTE EACHEYE SCH (08:28)
[2019-01-03] MEDS: ACIDOPHILUS/BULGARICUS 1 EACH TAB.CHEW GT SCH ×2 (08:28→16:45)
[2019-01-03] MEDS: MULTIVIT W/MINERALS 1 TAB TABLET GT SCH (08:28)
[2019-01-03] MEDS: ZINC SULFATE 220 MG CAPSULE GT SCH (08:28)
[2019-01-03] MEDS: CHLORHEXIDINE GLUCONATE 15 ML UDC MM SCH ×2 (08:28→20:32)
[2019-01-03] MEDS: PROSTAT (PYXIS) 30 ML UDC GT SCH ×3 (08:28→16:45)
[2019-01-03] MEDS: ASCORBIC ACID 500 MG TABLET GT SCH (08:28)
[2019-01-03] MEDS: NYSTATIN/TRIAMCIN CREAM 15 GM TUBE TP SCH ×2 (09:00→20:33)
[2019-01-03] MEDS: HYDROGEN PEROXIDE 480 ML BOTTLE TP SCH ×2 (09:00→20:32)
[2019-01-03] MEDS: COD LIVER OIL/ZINC OXIDE 120 GM TUBE TP SCH ×6 (09:00→20:32)
[2019-01-03] MEDS: THERAHONEY GEL 1.5 OZ TUBE TP SCH ×2 (09:14→20:33)
[2019-01-03 19:49] VITALS: BP 129/62
[2019-01-04] MEDS: METOCLOPRAMIDE HCL 10 MG TABLET GT SCH ×5 (00:15→23:58)
[2019-01-04] MEDS: ALBUTEROL FS 2.5 MG/3 ML VIAL.NEB NEB SCH ×4 (02:29→20:30)
[2019-01-04] MEDS: IPRATROPIUM NEB FS 0.5 MG/2.5 ML AMPUL.NEB IH SCH ×4 (02:29→20:30)
[2019-01-04] MEDS: LEVOTHYROXINE SODIUM 88 MCG TABLET GT SCH (05:04)
[2019-01-04] MEDS: OMEPRAZOLE 20 MG CAPSULE.DR GT SCH (05:04)
[2019-01-04 07:49] VITALS: BP 136/75
[2019-01-04] MEDS: LEVETIRACETAM SOL (5 ML) 100 MG/ML UDC GT SCH ×2 (08:19→20:33)
[2019-01-04] MEDS: ASCORBIC ACID 500 MG TABLET GT SCH (08:19)
[2019-01-04] MEDS: PROSTAT (PYXIS) 30 ML UDC GT SCH ×3 (08:19→17:41)
[2019-01-04] MEDS: ACIDOPHILUS/BULGARICUS 1 EACH TAB.CHEW GT SCH ×2 (08:19→17:41)
[2019-01-04] MEDS: ZINC SULFATE 220 MG CAPSULE GT SCH (08:19)
[2019-01-04] MEDS: ACETAMINOPHEN 650 MG/20.3 ML UDC GT SCH ×2 (08:19→20:34)
[2019-01-04] MEDS: CARBOXYMETHYLCELLULOSE SODIUM 0.4 ML DROPERETTE EACHEYE SCH (08:19)
[2019-01-04] MEDS: CHLORHEXIDINE GLUCONATE 15 ML UDC MM SCH ×2 (08:19→20:34)
[2019-01-04] MEDS: MULTIVIT W/MINERALS 1 TAB TABLET GT SCH (08:19)
[2019-01-04] MEDS: HYDROGEN PEROXIDE 480 ML BOTTLE TP SCH ×2 (09:00→21:00)
[2019-01-04] MEDS: NYSTATIN/TRIAMCIN CREAM 15 GM TUBE TP SCH ×2 (09:47→21:06)
[2019-01-04] MEDS: THERAHONEY GEL 1.5 OZ TUBE TP SCH ×2 (09:47→21:06)
[2019-01-04] MEDS: COD LIVER OIL/ZINC OXIDE 120 GM TUBE TP SCH ×6 (09:47→21:05)
--- NOTE | 2019-01-04 11:25 | NUR ---
Seen and examined by Dr. Ross no new orders.
--- NOTE | 2019-01-04 16:20 | NUR ---
PLAN OF CARE CONFERENCE was held today. Dr. Monet and interdisciplinary team discussed the current plan of care in detail. Family could not participate via phone conference. Charge Nurse discussed Morphine is now PRN and Tylenol 30 minutes prior to wound treatment for pain management and that patient remains stable. Current orders as well as treatments and medications were reviewed. See other discipline's IDT notes for further details.
[2019-01-04 20:20] VITALS: BP 135/77
[2019-01-05] MEDS: ALBUTEROL FS 2.5 MG/3 ML VIAL.NEB NEB SCH ×4 (01:49→19:58)
[2019-01-05] MEDS: IPRATROPIUM NEB FS 0.5 MG/2.5 ML AMPUL.NEB IH SCH ×4 (01:49→19:58)
[2019-01-05] MEDS: METOCLOPRAMIDE HCL 10 MG TABLET GT SCH ×3 (05:09→17:17)
[2019-01-05] MEDS: LEVOTHYROXINE SODIUM 88 MCG TABLET GT SCH (05:09)
[2019-01-05] MEDS: OMEPRAZOLE 20 MG CAPSULE.DR GT SCH (05:09)
[2019-01-05] MEDS: GLUCERNA 1.2 1,000 ML BOTTLE GT PRN (05:09)
[2019-01-05 08:02] VITALS: BP 128/71
[2019-01-05] MEDS: LEVETIRACETAM SOL (5 ML) 100 MG/ML UDC GT SCH ×2 (08:15→21:17)
[2019-01-05] MEDS: ZINC SULFATE 220 MG CAPSULE GT SCH (08:15)
[2019-01-05] MEDS: CARBOXYMETHYLCELLULOSE SODIUM 0.4 ML DROPERETTE EACHEYE SCH (08:15)
[2019-01-05] MEDS: PROSTAT (PYXIS) 30 ML UDC GT SCH ×3 (08:15→17:17)
[2019-01-05] MEDS: ASCORBIC ACID 500 MG TABLET GT SCH (08:15)
[2019-01-05] MEDS: ACIDOPHILUS/BULGARICUS 1 EACH TAB.CHEW GT SCH ×2 (08:15→17:17)
[2019-01-05] MEDS: MULTIVIT W/MINERALS 1 TAB TABLET GT SCH (08:15)
[2019-01-05] MEDS: ACETAMINOPHEN 650 MG/20.3 ML UDC GT SCH ×2 (08:15→21:17)
[2019-01-05] MEDS: CHLORHEXIDINE GLUCONATE 15 ML UDC MM SCH ×2 (08:16→21:17)
[2019-01-05] MEDS: HYDROGEN PEROXIDE 480 ML BOTTLE TP SCH ×2 (09:00→21:17)
[2019-01-05] MEDS: NYSTATIN/TRIAMCIN CREAM 15 GM TUBE TP SCH ×2 (09:00→21:17)
[2019-01-05] MEDS: THERAHONEY GEL 1.5 OZ TUBE TP SCH ×2 (09:00→21:17)
[2019-01-05] MEDS: COD LIVER OIL/ZINC OXIDE 120 GM TUBE TP SCH ×6 (09:00→21:17)
[2019-01-06] MEDS: ALBUTEROL FS 2.5 MG/3 ML VIAL.NEB NEB SCH ×4 (01:41→19:47)
[2019-01-06] MEDS: IPRATROPIUM NEB FS 0.5 MG/2.5 ML AMPUL.NEB IH SCH ×4 (01:41→19:47)
[2019-01-06] MEDS: GLUCERNA 1.2 1,000 ML BOTTLE GT PRN (05:48)
[2019-01-06] MEDS: LEVOTHYROXINE SODIUM 88 MCG TABLET GT SCH (05:48)
[2019-01-06] MEDS: METOCLOPRAMIDE HCL 10 MG TABLET GT SCH ×4 (05:48→17:24)
[2019-01-06] MEDS: OMEPRAZOLE 20 MG CAPSULE.DR GT SCH (05:48)
[2019-01-06 08:03] VITALS: BP 146/76
[2019-01-06] MEDS: LOPERAMIDE HCL UDC(2 MG/10 ML) 2 MG/10 ML UDC GT PRN ×2 (08:07→13:25)
[2019-01-06] MEDS: LEVETIRACETAM SOL (5 ML) 100 MG/ML UDC GT SCH ×2 (08:15→20:06)
[2019-01-06] MEDS: CARBOXYMETHYLCELLULOSE SODIUM 0.4 ML DROPERETTE EACHEYE SCH (08:15)
[2019-01-06] MEDS: MULTIVIT W/MINERALS 1 TAB TABLET GT SCH (08:16)
[2019-01-06] MEDS: ACIDOPHILUS/BULGARICUS 1 EACH TAB.CHEW GT SCH ×2 (08:16→17:24)
[2019-01-06] MEDS: PROSTAT (PYXIS) 30 ML UDC GT SCH ×3 (08:16→17:24)
[2019-01-06] MEDS: ZINC SULFATE 220 MG CAPSULE GT SCH (08:17)
[2019-01-06] MEDS: ACETAMINOPHEN 650 MG/20.3 ML UDC GT SCH ×2 (08:17→20:08)
[2019-01-06] MEDS: ASCORBIC ACID 500 MG TABLET GT SCH (08:17)
[2019-01-06] MEDS: CHLORHEXIDINE GLUCONATE 15 ML UDC MM SCH ×2 (08:18→20:08)
[2019-01-06] MEDS: HYDROGEN PEROXIDE 480 ML BOTTLE TP SCH ×2 (09:47→21:00)
[2019-01-06] MEDS: THERAHONEY GEL 1.5 OZ TUBE TP SCH ×2 (09:57→20:08)
[2019-01-06] MEDS: COD LIVER OIL/ZINC OXIDE 120 GM TUBE TP SCH ×6 (09:57→20:08)
[2019-01-06] MEDS: NYSTATIN/TRIAMCIN CREAM 15 GM TUBE TP SCH ×2 (09:57→20:08)
[2019-01-06 19:38] VITALS: BP 121/75
[2019-01-07] MEDS: METOCLOPRAMIDE HCL 10 MG TABLET GT SCH ×4 (00:07→18:20)
[2019-01-07] MEDS: ALBUTEROL FS 2.5 MG/3 ML VIAL.NEB NEB SCH ×4 (00:40→19:21)
[2019-01-07] MEDS: IPRATROPIUM NEB FS 0.5 MG/2.5 ML AMPUL.NEB IH SCH ×4 (00:40→19:21)
[2019-01-07] MEDS: LEVOTHYROXINE SODIUM 88 MCG TABLET GT SCH (05:01)
[2019-01-07] MEDS: OMEPRAZOLE 20 MG CAPSULE.DR GT SCH (05:03)
[2019-01-07] MEDS: GLUCERNA 1.2 1,000 ML BOTTLE GT PRN (05:05)
[2019-01-07 07:23] VITALS: BP 125/56
[2019-01-07] MEDS: LEVETIRACETAM SOL (5 ML) 100 MG/ML UDC GT SCH ×2 (08:17→20:34)
[2019-01-07] MEDS: CARBOXYMETHYLCELLULOSE SODIUM 0.4 ML DROPERETTE EACHEYE SCH (08:17)
[2019-01-07] MEDS: MULTIVIT W/MINERALS 1 TAB TABLET GT SCH (08:18)
[2019-01-07] MEDS: ACIDOPHILUS/BULGARICUS 1 EACH TAB.CHEW GT SCH ×2 (08:18→16:46)
[2019-01-07] MEDS: ASCORBIC ACID 500 MG TABLET GT SCH (08:18)
[2019-01-07] MEDS: ACETAMINOPHEN 650 MG/20.3 ML UDC GT SCH ×2 (08:18→20:34)
[2019-01-07] MEDS: ZINC SULFATE 220 MG CAPSULE GT SCH (08:18)
[2019-01-07] MEDS: PROSTAT (PYXIS) 30 ML UDC GT SCH ×3 (08:18→16:46)
[2019-01-07] MEDS: CHLORHEXIDINE GLUCONATE 15 ML UDC MM SCH ×2 (08:18→20:34)
[2019-01-07] MEDS: HYDROGEN PEROXIDE 480 ML BOTTLE TP SCH ×2 (08:47→21:00)
[2019-01-07] MEDS: NYSTATIN/TRIAMCIN CREAM 15 GM TUBE TP SCH ×2 (09:12→20:35)
[2019-01-07] MEDS: COD LIVER OIL/ZINC OXIDE 120 GM TUBE TP SCH ×6 (09:12→20:34)
[2019-01-07] MEDS: THERAHONEY GEL 1.5 OZ TUBE TP SCH ×2 (09:12→20:35)
[2019-01-07 20:27] VITALS: BP 136/83
[2019-01-08] MEDS: METOCLOPRAMIDE HCL 10 MG TABLET GT SCH ×4 (00:21→17:14)
[2019-01-08] MEDS: IPRATROPIUM NEB FS 0.5 MG/2.5 ML AMPUL.NEB IH SCH ×4 (01:42→19:19)
[2019-01-08] MEDS: ALBUTEROL FS 2.5 MG/3 ML VIAL.NEB NEB SCH ×4 (01:42→19:19)
[2019-01-08] MEDS: LEVOTHYROXINE SODIUM 88 MCG TABLET GT SCH (05:01)
[2019-01-08] MEDS: OMEPRAZOLE 20 MG CAPSULE.DR GT SCH (05:01)
[2019-01-08] MEDS: GLUCERNA 1.2 1,000 ML BOTTLE GT PRN (05:03)
[2019-01-08 07:36] VITALS: BP 144/57
[2019-01-08] MEDS: HYDROGEN PEROXIDE 480 ML BOTTLE TP SCH ×2 (07:59→21:00)
[2019-01-08] MEDS: ASCORBIC ACID 500 MG TABLET GT SCH (08:22)
[2019-01-08] MEDS: ACIDOPHILUS/BULGARICUS 1 EACH TAB.CHEW GT SCH ×2 (08:22→17:14)
[2019-01-08] MEDS: ZINC SULFATE 220 MG CAPSULE GT SCH (08:22)
[2019-01-08] MEDS: LEVETIRACETAM SOL (5 ML) 100 MG/ML UDC GT SCH ×2 (08:22→20:40)
[2019-01-08] MEDS: MULTIVIT W/MINERALS 1 TAB TABLET GT SCH (08:22)
[2019-01-08] MEDS: PROSTAT (PYXIS) 30 ML UDC GT SCH ×3 (08:22→17:14)
[2019-01-08] MEDS: ACETAMINOPHEN 650 MG/20.3 ML UDC GT SCH ×2 (08:22→20:40)
[2019-01-08] MEDS: CHLORHEXIDINE GLUCONATE 15 ML UDC MM SCH ×2 (08:22→20:40)
[2019-01-08] MEDS: CARBOXYMETHYLCELLULOSE SODIUM 0.4 ML DROPERETTE EACHEYE SCH (08:22)
[2019-01-08] MEDS: NYSTATIN/TRIAMCIN CREAM 15 GM TUBE TP SCH ×2 (09:00→20:41)
[2019-01-08] MEDS: THERAHONEY GEL 1.5 OZ TUBE TP SCH ×2 (09:00→20:41)
[2019-01-08] MEDS: COD LIVER OIL/ZINC OXIDE 120 GM TUBE TP SCH ×6 (09:00→20:41)
[2019-01-08] MEDS: LOPERAMIDE HCL UDC(2 MG/10 ML) 2 MG/10 ML UDC GT PRN (12:21)
[2019-01-08 20:14] VITALS: BP 112/74
[2019-01-09] MEDS: METOCLOPRAMIDE HCL 10 MG TABLET GT SCH ×5 (00:08→23:29)
[2019-01-09] MEDS: IPRATROPIUM NEB FS 0.5 MG/2.5 ML AMPUL.NEB IH SCH ×4 (01:15→19:52)
[2019-01-09] MEDS: ALBUTEROL FS 2.5 MG/3 ML VIAL.NEB NEB SCH ×4 (01:15→19:52)
[2019-01-09] MEDS: LEVOTHYROXINE SODIUM 88 MCG TABLET GT SCH (05:10)
[2019-01-09] MEDS: OMEPRAZOLE 20 MG CAPSULE.DR GT SCH (05:10)
[2019-01-09] MEDS: GLUCERNA 1.2 1,000 ML BOTTLE GT PRN (05:12)
[2019-01-09 07:43] VITALS: BP 119/67
[2019-01-09] MEDS: HYDROGEN PEROXIDE 480 ML BOTTLE TP SCH ×2 (08:11→21:00)
--- NOTE | 2019-01-09 08:26 | NUR ---
RT RECEIVED PT TRACH'D ON CA WITH SETTINGS PER MD ORDER. SPARE TRACH AND AMBU BAG AT BEDSIDE. TRACH CARE DONE. TRACH SECURED AND AIRWAY PATENT. BREATHING TX GIVEN ORDERED. NO ADVERSE REACTIONS OBSERVED. SUCTIONED MOD AMOUNTS OF THICK, PALE YELLOW SECRETIONS. NO SOB NOTED AT THIS TIME. WILL CONTINUE TO MONITOR FOR ANY CHANGE OF CONDITION . Addendum: 01/09/19 at 1717 by CEM PEPPER RT Amended: Links added.
[2019-01-09] MEDS: PROSTAT (PYXIS) 30 ML UDC GT SCH ×3 (08:29→17:26)
[2019-01-09] MEDS: ZINC SULFATE 220 MG CAPSULE GT SCH (08:29)
[2019-01-09] MEDS: CARBOXYMETHYLCELLULOSE SODIUM 0.4 ML DROPERETTE EACHEYE SCH (08:29)
[2019-01-09] MEDS: ASCORBIC ACID 500 MG TABLET GT SCH (08:29)
[2019-01-09] MEDS: ACIDOPHILUS/BULGARICUS 1 EACH TAB.CHEW GT SCH ×2 (08:29→17:26)
[2019-01-09] MEDS: MULTIVIT W/MINERALS 1 TAB TABLET GT SCH (08:29)
[2019-01-09] MEDS: ACETAMINOPHEN 650 MG/20.3 ML UDC GT SCH ×2 (08:29→21:02)
[2019-01-09] MEDS: LEVETIRACETAM SOL (5 ML) 100 MG/ML UDC GT SCH ×2 (08:29→21:02)
[2019-01-09] MEDS: CHLORHEXIDINE GLUCONATE 15 ML UDC MM SCH ×2 (08:29→21:02)
[2019-01-09] MEDS: THERAHONEY GEL 1.5 OZ TUBE TP SCH ×2 (09:00→21:04)
[2019-01-09] MEDS: COD LIVER OIL/ZINC OXIDE 120 GM TUBE TP SCH ×6 (09:00→21:03)
[2019-01-09] MEDS: NYSTATIN/TRIAMCIN CREAM 15 GM TUBE TP SCH ×2 (09:00→21:03)
--- NOTE | 2019-01-09 20:08 | NUR ---
RT NOTES PT RECEIVED TRACHED ON COOL AEROSOL ON FIO2 28%. NO SIGNS OF RESP DISTRESS/SOB NOTED. PT SUCTIONED. HHN TX GIVEN. AMBUBAG AND SPARE TRACH AT HEAD OF BED. WILL CONT TO MONITOR. Addendum: 01/10/19 at 0057 by GAVIN MARTINEZ RT Amended: Links added.
[2019-01-09 20:28] VITALS: BP 115/71
[2019-01-10] MEDS: ALBUTEROL FS 2.5 MG/3 ML VIAL.NEB NEB SCH ×4 (01:31→20:20)
[2019-01-10] MEDS: IPRATROPIUM NEB FS 0.5 MG/2.5 ML AMPUL.NEB IH SCH ×4 (01:31→20:20)
[2019-01-10] MEDS: LEVOTHYROXINE SODIUM 88 MCG TABLET GT SCH (05:27)
[2019-01-10] MEDS: METOCLOPRAMIDE HCL 10 MG TABLET GT SCH ×4 (05:27→23:58)
[2019-01-10] MEDS: OMEPRAZOLE 20 MG CAPSULE.DR GT SCH (05:27)
[2019-01-10] MEDS: GLUCERNA 1.2 1,000 ML BOTTLE GT PRN (05:57)
[2019-01-10 07:25] VITALS: BP 122/62
[2019-01-10] MEDS: MULTIVIT W/MINERALS 1 TAB TABLET GT SCH (08:13)
[2019-01-10] MEDS: LEVETIRACETAM SOL (5 ML) 100 MG/ML UDC GT SCH ×2 (08:13→20:07)
[2019-01-10] MEDS: ASCORBIC ACID 500 MG TABLET GT SCH (08:13)
[2019-01-10] MEDS: CARBOXYMETHYLCELLULOSE SODIUM 0.4 ML DROPERETTE EACHEYE SCH (08:13)
[2019-01-10] MEDS: ACIDOPHILUS/BULGARICUS 1 EACH TAB.CHEW GT SCH ×2 (08:13→17:17)
[2019-01-10] MEDS: ACETAMINOPHEN 650 MG/20.3 ML UDC GT SCH ×2 (08:13→20:08)
[2019-01-10] MEDS: PROSTAT (PYXIS) 30 ML UDC GT SCH ×3 (08:13→17:17)
[2019-01-10] MEDS: CHLORHEXIDINE GLUCONATE 15 ML UDC MM SCH ×2 (08:14→21:51)
[2019-01-10] MEDS: ZINC SULFATE 220 MG CAPSULE GT SCH (08:14)
[2019-01-10] MEDS: HYDROGEN PEROXIDE 480 ML BOTTLE TP SCH ×2 (08:41→21:51)
[2019-01-10] MEDS: LOPERAMIDE HCL UDC(2 MG/10 ML) 2 MG/10 ML UDC GT PRN (08:52)
[2019-01-10] MEDS: NYSTATIN/TRIAMCIN CREAM 15 GM TUBE TP SCH ×2 (08:53→21:51)
[2019-01-10] MEDS: THERAHONEY GEL 1.5 OZ TUBE TP SCH ×2 (08:53→21:51)
[2019-01-10] MEDS: COD LIVER OIL/ZINC OXIDE 120 GM TUBE TP SCH ×6 (08:53→21:51)
[2019-01-10 19:45] VITALS: BP 131/83
[2019-01-11] MEDS: IPRATROPIUM NEB FS 0.5 MG/2.5 ML AMPUL.NEB IH SCH ×4 (01:53→19:24)
[2019-01-11] MEDS: ALBUTEROL FS 2.5 MG/3 ML VIAL.NEB NEB SCH ×4 (01:53→19:24)
[2019-01-11] MEDS: OMEPRAZOLE 20 MG CAPSULE.DR GT SCH (06:14)
[2019-01-11] MEDS: LEVOTHYROXINE SODIUM 88 MCG TABLET GT SCH (06:14)
[2019-01-11] MEDS: METOCLOPRAMIDE HCL 10 MG TABLET GT SCH ×3 (06:14→17:01)
[2019-01-11 07:45] VITALS: BP 138/76
[2019-01-11] MEDS: CARBOXYMETHYLCELLULOSE SODIUM 0.4 ML DROPERETTE EACHEYE SCH (08:39)
[2019-01-11] MEDS: PROSTAT (PYXIS) 30 ML UDC GT SCH ×3 (08:39→17:01)
[2019-01-11] MEDS: MULTIVIT W/MINERALS 1 TAB TABLET GT SCH (08:39)
[2019-01-11] MEDS: ASCORBIC ACID 500 MG TABLET GT SCH (08:39)
[2019-01-11] MEDS: ACIDOPHILUS/BULGARICUS 1 EACH TAB.CHEW GT SCH ×2 (08:39→17:01)
[2019-01-11] MEDS: ACETAMINOPHEN 650 MG/20.3 ML UDC GT SCH ×2 (08:39→21:01)
[2019-01-11] MEDS: ZINC SULFATE 220 MG CAPSULE GT SCH (08:39)
[2019-01-11] MEDS: LEVETIRACETAM SOL (5 ML) 100 MG/ML UDC GT SCH ×2 (08:39→21:01)
[2019-01-11] MEDS: CHLORHEXIDINE GLUCONATE 15 ML UDC MM SCH ×2 (08:39→21:01)
[2019-01-11] MEDS: HYDROGEN PEROXIDE 480 ML BOTTLE TP SCH ×2 (09:00→21:57)
[2019-01-11] MEDS: COD LIVER OIL/ZINC OXIDE 120 GM TUBE TP SCH ×6 (09:57→21:01)
[2019-01-11] MEDS: NYSTATIN/TRIAMCIN CREAM 15 GM TUBE TP SCH ×2 (09:58→21:01)
[2019-01-11] MEDS: THERAHONEY GEL 1.5 OZ TUBE TP SCH ×2 (09:58→21:01)
[2019-01-11 20:39] VITALS: BP 126/76
[2019-01-12] MEDS: IPRATROPIUM NEB FS 0.5 MG/2.5 ML AMPUL.NEB IH SCH ×4 (00:45→19:03)
[2019-01-12] MEDS: ALBUTEROL FS 2.5 MG/3 ML VIAL.NEB NEB SCH ×4 (00:46→19:03)
[2019-01-12] MEDS: METOCLOPRAMIDE HCL 10 MG TABLET GT SCH ×4 (05:08→17:15)
[2019-01-12] MEDS: LEVOTHYROXINE SODIUM 88 MCG TABLET GT SCH (05:08)
[2019-01-12] MEDS: OMEPRAZOLE 20 MG CAPSULE.DR GT SCH (05:08)
[2019-01-12] MEDS: GLUCERNA 1.2 1,000 ML BOTTLE GT PRN (05:59)
[2019-01-12] MEDS: HYDROGEN PEROXIDE 480 ML BOTTLE TP SCH ×2 (09:00→21:00)
[2019-01-12] MEDS: ZINC SULFATE 220 MG CAPSULE GT SCH (09:33)
[2019-01-12] MEDS: ASCORBIC ACID 500 MG TABLET GT SCH (09:33)
[2019-01-12] MEDS: MULTIVIT W/MINERALS 1 TAB TABLET GT SCH (09:33)
[2019-01-12] MEDS: LEVETIRACETAM SOL (5 ML) 100 MG/ML UDC GT SCH ×2 (09:33→21:09)
[2019-01-12] MEDS: PROSTAT (PYXIS) 30 ML UDC GT SCH ×3 (09:33→17:15)
[2019-01-12] MEDS: ACIDOPHILUS/BULGARICUS 1 EACH TAB.CHEW GT SCH ×2 (09:33→17:15)
[2019-01-12] MEDS: ACETAMINOPHEN 650 MG/20.3 ML UDC GT SCH ×2 (09:33→21:09)
[2019-01-12] MEDS: CARBOXYMETHYLCELLULOSE SODIUM 0.4 ML DROPERETTE EACHEYE SCH (09:33)
[2019-01-12] MEDS: CHLORHEXIDINE GLUCONATE 15 ML UDC MM SCH ×2 (09:33→21:09)
[2019-01-12] MEDS: NYSTATIN/TRIAMCIN CREAM 15 GM TUBE TP SCH ×2 (10:00→21:09)
[2019-01-12] MEDS: THERAHONEY GEL 1.5 OZ TUBE TP SCH ×2 (10:00→21:10)
[2019-01-12] MEDS: COD LIVER OIL/ZINC OXIDE 120 GM TUBE TP SCH ×6 (10:00→21:09)
[2019-01-12 10:17] VITALS: BP 117/62
[2019-01-12 19:48] VITALS: BP 133/64
[2019-01-13] MEDS: METOCLOPRAMIDE HCL 10 MG TABLET GT SCH ×4 (00:14→18:38)
[2019-01-13] MEDS: IPRATROPIUM NEB FS 0.5 MG/2.5 ML AMPUL.NEB IH SCH ×4 (00:53→19:43)
[2019-01-13] MEDS: ALBUTEROL FS 2.5 MG/3 ML VIAL.NEB NEB SCH ×4 (00:53→19:43)
[2019-01-13] MEDS: GLUCERNA 1.2 1,000 ML BOTTLE GT PRN (03:00)
[2019-01-13] MEDS: OMEPRAZOLE 20 MG CAPSULE.DR GT SCH (05:24)
[2019-01-13] MEDS: LEVOTHYROXINE SODIUM 88 MCG TABLET GT SCH (05:24)
[2019-01-13 07:50] VITALS: BP 124/63
[2019-01-13] MEDS: PROSTAT (PYXIS) 30 ML UDC GT SCH ×3 (08:23→16:28)
[2019-01-13] MEDS: CARBOXYMETHYLCELLULOSE SODIUM 0.4 ML DROPERETTE EACHEYE SCH (08:23)
[2019-01-13] MEDS: ACIDOPHILUS/BULGARICUS 1 EACH TAB.CHEW GT SCH ×2 (08:23→16:28)
[2019-01-13] MEDS: ASCORBIC ACID 500 MG TABLET GT SCH (08:24)
[2019-01-13] MEDS: ACETAMINOPHEN 650 MG/20.3 ML UDC GT SCH ×2 (08:24→21:24)
[2019-01-13] MEDS: ZINC SULFATE 220 MG CAPSULE GT SCH (08:24)
[2019-01-13] MEDS: CHLORHEXIDINE GLUCONATE 15 ML UDC MM SCH ×2 (08:24→21:24)
[2019-01-13] MEDS: LEVETIRACETAM SOL (5 ML) 100 MG/ML UDC GT SCH ×2 (08:27→21:24)
[2019-01-13] MEDS: MULTIVIT W/MINERALS 1 TAB TABLET GT SCH (08:27)
[2019-01-13] MEDS: THERAHONEY GEL 1.5 OZ TUBE TP SCH ×2 (09:00→21:25)
[2019-01-13] MEDS: COD LIVER OIL/ZINC OXIDE 120 GM TUBE TP SCH ×6 (09:00→21:24)
[2019-01-13] MEDS: NYSTATIN/TRIAMCIN CREAM 15 GM TUBE TP SCH ×2 (09:00→21:25)
[2019-01-13] MEDS: HYDROGEN PEROXIDE 480 ML BOTTLE TP SCH ×2 (09:10→21:09)
[2019-01-13 19:50] VITALS: BP 127/83
[2019-01-14] MEDS: ALBUTEROL FS 2.5 MG/3 ML VIAL.NEB NEB SCH ×4 (01:50→19:46)
[2019-01-14] MEDS: IPRATROPIUM NEB FS 0.5 MG/2.5 ML AMPUL.NEB IH SCH ×4 (01:50→19:46)
[2019-01-14] MEDS: GLUCERNA 1.2 1,000 ML BOTTLE GT PRN (02:00)
--- NOTE | 2019-01-14 04:05 | NUR ---
RT PATIENT WAS RECEIVED ON 28% COOL AEROSOL . AIRWAY PATENT AND SECURED. PATIENT STABLE THROUGHOUT THE SHIFT. WILL CONTINUE TO MONITOR. Addendum: 01/14/19 at 0405 by DAKSHA SHARP RT Amended: Links added.
[2019-01-14] MEDS: METOCLOPRAMIDE HCL 10 MG TABLET GT SCH ×5 (05:33→23:52)
[2019-01-14] MEDS: OMEPRAZOLE 20 MG CAPSULE.DR GT SCH (05:33)
[2019-01-14] MEDS: LEVOTHYROXINE SODIUM 88 MCG TABLET GT SCH (05:33)
[2019-01-14 08:13] VITALS: BP 117/52
[2019-01-14] MEDS: CHLORHEXIDINE GLUCONATE 15 ML UDC MM SCH ×2 (08:45→21:27)
[2019-01-14] MEDS: ASCORBIC ACID 500 MG TABLET GT SCH (08:45)
[2019-01-14] MEDS: ACIDOPHILUS/BULGARICUS 1 EACH TAB.CHEW GT SCH ×2 (08:45→17:00)
[2019-01-14] MEDS: ACETAMINOPHEN 650 MG/20.3 ML UDC GT SCH ×2 (08:45→21:27)
[2019-01-14] MEDS: LEVETIRACETAM SOL (5 ML) 100 MG/ML UDC GT SCH ×2 (08:45→21:27)
[2019-01-14] MEDS: PROSTAT (PYXIS) 30 ML UDC GT SCH ×3 (08:45→17:00)
[2019-01-14] MEDS: COD LIVER OIL/ZINC OXIDE 120 GM TUBE TP SCH ×6 (08:45→21:28)
[2019-01-14] MEDS: MULTIVIT W/MINERALS 1 TAB TABLET GT SCH (08:45)
[2019-01-14] MEDS: CARBOXYMETHYLCELLULOSE SODIUM 0.4 ML DROPERETTE EACHEYE SCH (08:45)
[2019-01-14] MEDS: ZINC SULFATE 220 MG CAPSULE GT SCH (08:45)
[2019-01-14] MEDS: NYSTATIN/TRIAMCIN CREAM 15 GM TUBE TP SCH ×2 (08:46→21:28)
[2019-01-14] MEDS: THERAHONEY GEL 1.5 OZ TUBE TP SCH ×2 (08:46→21:28)
[2019-01-14] MEDS: HYDROGEN PEROXIDE 480 ML BOTTLE TP SCH ×2 (09:00→21:28)
[2019-01-14 19:46] VITALS: BP 117/67
[2019-01-15] MEDS: IPRATROPIUM NEB FS 0.5 MG/2.5 ML AMPUL.NEB IH SCH ×4 (02:21→19:19)
[2019-01-15] MEDS: ALBUTEROL FS 2.5 MG/3 ML VIAL.NEB NEB SCH ×4 (02:21→19:19)
[2019-01-15] MEDS: METOCLOPRAMIDE HCL 10 MG TABLET GT SCH ×3 (05:49→17:08)
[2019-01-15] MEDS: OMEPRAZOLE 20 MG CAPSULE.DR GT SCH (05:49)
[2019-01-15] MEDS: LEVOTHYROXINE SODIUM 88 MCG TABLET GT SCH (05:49)
[2019-01-15 07:21] VITALS: BP 118/43
--- NOTE | 2019-01-15 08:27 | NUR ---
SW left voicemail reminder for pt.s daughter, Reyna Galindo [phone] regarding family support group taking place 01/16/19 from 11am-12pm.
[2019-01-15] MEDS: CARBOXYMETHYLCELLULOSE SODIUM 0.4 ML DROPERETTE EACHEYE SCH (09:10)
[2019-01-15] MEDS: ACETAMINOPHEN 650 MG/20.3 ML UDC GT SCH ×2 (09:10→21:07)
[2019-01-15] MEDS: ASCORBIC ACID 500 MG TABLET GT SCH (09:10)
[2019-01-15] MEDS: PROSTAT (PYXIS) 30 ML UDC GT SCH ×3 (09:10→17:08)
[2019-01-15] MEDS: ACIDOPHILUS/BULGARICUS 1 EACH TAB.CHEW GT SCH ×2 (09:10→17:08)
[2019-01-15] MEDS: CHLORHEXIDINE GLUCONATE 15 ML UDC MM SCH ×2 (09:10→21:07)
[2019-01-15] MEDS: ZINC SULFATE 220 MG CAPSULE GT SCH (09:10)
[2019-01-15] MEDS: LEVETIRACETAM SOL (5 ML) 100 MG/ML UDC GT SCH ×2 (09:10→21:07)
[2019-01-15] MEDS: MULTIVIT W/MINERALS 1 TAB TABLET GT SCH (09:10)
[2019-01-15] MEDS: COD LIVER OIL/ZINC OXIDE 120 GM TUBE TP SCH ×6 (09:10→21:07)
[2019-01-15] MEDS: NYSTATIN/TRIAMCIN CREAM 15 GM TUBE TP SCH ×2 (09:11→21:07)
[2019-01-15] MEDS: THERAHONEY GEL 1.5 OZ TUBE TP SCH ×2 (09:11→21:07)
[2019-01-15] MEDS: HYDROGEN PEROXIDE 480 ML BOTTLE TP SCH ×2 (09:25→21:07)
[2019-01-15 20:32] VITALS: BP 121/62
[2019-01-16] MEDS: METOCLOPRAMIDE HCL 10 MG TABLET GT SCH ×6 (00:02→23:54)
[2019-01-16] MEDS: ALBUTEROL FS 2.5 MG/3 ML VIAL.NEB NEB SCH ×4 (01:58→20:07)
[2019-01-16] MEDS: IPRATROPIUM NEB FS 0.5 MG/2.5 ML AMPUL.NEB IH SCH ×4 (01:58→20:07)
[2019-01-16] MEDS: OMEPRAZOLE 20 MG CAPSULE.DR GT SCH (05:43)
[2019-01-16] MEDS: LEVOTHYROXINE SODIUM 88 MCG TABLET GT SCH (05:43)
[2019-01-16 07:48] VITALS: BP 130/66
[2019-01-16] MEDS: CARBOXYMETHYLCELLULOSE SODIUM 0.4 ML DROPERETTE EACHEYE SCH (08:31)
[2019-01-16] MEDS: MULTIVIT W/MINERALS 1 TAB TABLET GT SCH (08:34)
[2019-01-16] MEDS: LEVETIRACETAM SOL (5 ML) 100 MG/ML UDC GT SCH ×2 (08:34→21:20)
[2019-01-16] MEDS: CHLORHEXIDINE GLUCONATE 15 ML UDC MM SCH ×2 (08:34→21:20)
[2019-01-16] MEDS: COD LIVER OIL/ZINC OXIDE 120 GM TUBE TP SCH ×6 (08:36→21:20)
[2019-01-16] MEDS: NYSTATIN/TRIAMCIN CREAM 15 GM TUBE TP SCH ×2 (08:36→21:20)
[2019-01-16] MEDS: THERAHONEY GEL 1.5 OZ TUBE TP SCH ×2 (08:37→21:20)
[2019-01-16] MEDS: ACIDOPHILUS/BULGARICUS 1 EACH TAB.CHEW GT SCH ×2 (08:41→17:41)
[2019-01-16] MEDS: PROSTAT (PYXIS) 30 ML UDC GT SCH ×3 (08:41→17:41)
[2019-01-16] MEDS: ACETAMINOPHEN 650 MG/20.3 ML UDC GT SCH ×2 (08:41→21:20)
[2019-01-16] MEDS: ZINC SULFATE 220 MG CAPSULE GT SCH (08:41)
[2019-01-16] MEDS: ASCORBIC ACID 500 MG TABLET GT SCH (08:41)
[2019-01-16] MEDS: HYDROGEN PEROXIDE 480 ML BOTTLE TP SCH ×2 (09:45→21:00)
--- NOTE | 2019-01-16 11:19 | NUR ---
Spoke with Reyna, resident's daughter and obtain consent for flu vaccine. Order for flu vaccine received from Dr. Monet.
[2019-01-16 20:34] VITALS: BP 116/58
[2019-01-16] MEDS: GLUCERNA 1.2 1,000 ML BOTTLE GT PRN (23:54)
[2019-01-17] MEDS: ALBUTEROL FS 2.5 MG/3 ML VIAL.NEB NEB SCH ×4 (01:58→20:10)
[2019-01-17] MEDS: IPRATROPIUM NEB FS 0.5 MG/2.5 ML AMPUL.NEB IH SCH ×4 (01:58→20:10)
[2019-01-17] MEDS: METOCLOPRAMIDE HCL 10 MG TABLET GT SCH ×4 (05:38→23:24)
[2019-01-17] MEDS: OMEPRAZOLE 20 MG CAPSULE.DR GT SCH (05:38)
[2019-01-17] MEDS: GLUCERNA 1.2 1,000 ML BOTTLE GT PRN ×2 (05:38→18:44)
[2019-01-17] MEDS: LEVOTHYROXINE SODIUM 88 MCG TABLET GT SCH (05:38)
[2019-01-17 07:43] VITALS: BP 118/52
[2019-01-17] MEDS: HYDROGEN PEROXIDE 480 ML BOTTLE TP SCH ×2 (09:00→21:58)
[2019-01-17] MEDS: LEVETIRACETAM SOL (5 ML) 100 MG/ML UDC GT SCH ×2 (09:02→20:37)
[2019-01-17] MEDS: MULTIVIT W/MINERALS 1 TAB TABLET GT SCH (09:02)
[2019-01-17] MEDS: ACIDOPHILUS/BULGARICUS 1 EACH TAB.CHEW GT SCH ×2 (09:02→17:00)
[2019-01-17] MEDS: CARBOXYMETHYLCELLULOSE SODIUM 0.4 ML DROPERETTE EACHEYE SCH (09:02)
[2019-01-17] MEDS: CHLORHEXIDINE GLUCONATE 15 ML UDC MM SCH ×2 (09:02→20:37)
[2019-01-17] MEDS: PROSTAT (PYXIS) 30 ML UDC GT SCH ×3 (09:02→17:00)
[2019-01-17] MEDS: ZINC SULFATE 220 MG CAPSULE GT SCH (09:02)
[2019-01-17] MEDS: ASCORBIC ACID 500 MG TABLET GT SCH (09:02)
[2019-01-17] MEDS: ACETAMINOPHEN 650 MG/20.3 ML UDC GT SCH ×2 (09:02→20:37)
[2019-01-17] MEDS: COD LIVER OIL/ZINC OXIDE 120 GM TUBE TP SCH ×6 (09:30→20:38)
[2019-01-17] MEDS: THERAHONEY GEL 1.5 OZ TUBE TP SCH ×2 (09:30→21:30)
[2019-01-17] MEDS: NYSTATIN/TRIAMCIN CREAM 15 GM TUBE TP SCH ×2 (09:45→21:30)
--- NOTE | 2019-01-17 16:30 | NUR ---
January Family Support Group: Patient's family was unable to attend. SW will invite family to the February Family Support Group.
--- NOTE | 2019-01-17 19:25 | NUR ---
Seen and examined by TERESA COX.
[2019-01-17 20:10] VITALS: BP 125/59
[2019-01-18] MEDS: IPRATROPIUM NEB FS 0.5 MG/2.5 ML AMPUL.NEB IH SCH ×4 (01:25→19:44)
[2019-01-18] MEDS: ALBUTEROL FS 2.5 MG/3 ML VIAL.NEB NEB SCH ×4 (01:25→19:44)
[2019-01-18] MEDS: METOCLOPRAMIDE HCL 10 MG TABLET GT SCH ×3 (06:01→17:57)
[2019-01-18] MEDS: OMEPRAZOLE 20 MG CAPSULE.DR GT SCH (06:01)
[2019-01-18] MEDS: LEVOTHYROXINE SODIUM 88 MCG TABLET GT SCH (06:01)
[2019-01-18] MEDS: PROSTAT (PYXIS) 30 ML UDC GT SCH ×3 (08:44→17:57)
[2019-01-18] MEDS: ASCORBIC ACID 500 MG TABLET GT SCH (08:44)
[2019-01-18] MEDS: CARBOXYMETHYLCELLULOSE SODIUM 0.4 ML DROPERETTE EACHEYE SCH (08:44)
[2019-01-18] MEDS: ACETAMINOPHEN 650 MG/20.3 ML UDC GT SCH ×2 (08:44→21:09)
[2019-01-18] MEDS: MULTIVIT W/MINERALS 1 TAB TABLET GT SCH (08:44)
[2019-01-18] MEDS: LEVETIRACETAM SOL (5 ML) 100 MG/ML UDC GT SCH ×2 (08:44→21:09)
[2019-01-18] MEDS: ACIDOPHILUS/BULGARICUS 1 EACH TAB.CHEW GT SCH ×2 (08:44→17:57)
[2019-01-18] MEDS: CHLORHEXIDINE GLUCONATE 15 ML UDC MM SCH ×2 (08:45→21:09)
[2019-01-18] MEDS: ZINC SULFATE 220 MG CAPSULE GT SCH (08:45)
[2019-01-18 08:47] VITALS: BP 119/50
[2019-01-18] MEDS: HYDROGEN PEROXIDE 480 ML BOTTLE TP SCH ×2 (09:09→20:26)
[2019-01-18] MEDS: THERAHONEY GEL 1.5 OZ TUBE TP SCH ×2 (09:15→21:10)
[2019-01-18] MEDS: NYSTATIN/TRIAMCIN CREAM 15 GM TUBE TP SCH ×2 (09:15→21:10)
[2019-01-18] MEDS: COD LIVER OIL/ZINC OXIDE 120 GM TUBE TP SCH ×6 (09:15→21:09)
[2019-01-18] MEDS ORDERED: INFLUENZA VACCINE 2019-20 0.5 ML DISP.SYRIN IM ONE (10:00)
--- NOTE | 2019-01-18 16:20 | NUR ---
JOSSE called pt.s daughter, Reyna Galindo [phone] to invite family to attend the IDT Plan of Care Conference meeting on 01/25/19 from 12:30pm-12:30pm in the activities room. Per Reyna, she can participate via phone conference. Noted.
--- NOTE | 2019-01-18 17:25 | NUR ---
Pt receive stable on ordered CA 28% FiO2 , treatment given and no adverse reaction observe, spare trach and ambu bag at bedside. Trach patent and secured, pt remained stable the whole shift, will contine to minitor
[2019-01-18] MEDS: GLUCERNA 1.2 1,000 ML BOTTLE GT PRN (18:00)
--- NOTE | 2019-01-18 19:23 | NUR ---
Flu vaccine given on Left Deltoid, will monitor for any adverse reaction.
[2019-01-18 20:03] VITALS: BP 122/75
--- NOTE | 2019-01-18 20:47 | NUR ---
PT RCVD TRACH'D ON COOL AEROSOL WITH CHARTED SETTINGS. PT NOLVIA TX WELL. SX DONE. PT TRACH IS PATENT AND SECURE. AMBU BAG AT BEDSIDE. Addendum: 01/18/19 at 2046 by ALEXEY MADRID RT Amended: Links added.
[2019-01-19] MEDS: METOCLOPRAMIDE HCL 10 MG TABLET GT SCH ×5 (00:20→23:41)
[2019-01-19] MEDS: ALBUTEROL FS 2.5 MG/3 ML VIAL.NEB NEB SCH ×4 (00:43→19:43)
[2019-01-19] MEDS: IPRATROPIUM NEB FS 0.5 MG/2.5 ML AMPUL.NEB IH SCH ×4 (00:43→19:43)
[2019-01-19] MEDS: LEVOTHYROXINE SODIUM 88 MCG TABLET GT SCH (05:28)
[2019-01-19] MEDS: OMEPRAZOLE 20 MG CAPSULE.DR GT SCH (05:28)
--- NOTE | 2019-01-19 06:12 | NUR ---
S/P Flu vaccination - afebrile.
[2019-01-19 08:00] VITALS: BP 104/61
[2019-01-19] MEDS: HYDROGEN PEROXIDE 480 ML BOTTLE TP SCH ×2 (08:11→21:34)
[2019-01-19] MEDS: ASCORBIC ACID 500 MG TABLET GT SCH (08:24)
[2019-01-19] MEDS: MULTIVIT W/MINERALS 1 TAB TABLET GT SCH (08:24)
[2019-01-19] MEDS: PROSTAT (PYXIS) 30 ML UDC GT SCH ×3 (08:24→16:39)
[2019-01-19] MEDS: ACETAMINOPHEN 650 MG/20.3 ML UDC GT SCH ×2 (08:24→21:34)
[2019-01-19] MEDS: ZINC SULFATE 220 MG CAPSULE GT SCH (08:24)
[2019-01-19] MEDS: LEVETIRACETAM SOL (5 ML) 100 MG/ML UDC GT SCH ×2 (08:24→21:34)
[2019-01-19] MEDS: CHLORHEXIDINE GLUCONATE 15 ML UDC MM SCH ×2 (08:24→21:34)
[2019-01-19] MEDS: ACIDOPHILUS/BULGARICUS 1 EACH TAB.CHEW GT SCH ×2 (08:24→16:39)
[2019-01-19] MEDS: COD LIVER OIL/ZINC OXIDE 120 GM TUBE TP SCH ×6 (09:00→21:34)
[2019-01-19] MEDS: THERAHONEY GEL 1.5 OZ TUBE TP SCH ×2 (09:00→21:34)
[2019-01-19] MEDS: CARBOXYMETHYLCELLULOSE SODIUM 0.4 ML DROPERETTE EACHEYE SCH (09:00)
[2019-01-19] MEDS: NYSTATIN/TRIAMCIN CREAM 15 GM TUBE TP SCH ×2 (09:00→21:34)
--- NOTE | 2019-01-19 11:33 | NUR ---
No adverse reactions to flu vaccine noted.
[2019-01-19] MEDS: GLUCERNA 1.2 1,000 ML BOTTLE GT PRN (16:44)
[2019-01-19 20:01] VITALS: BP 130/130
[2019-01-20] MEDS: IPRATROPIUM NEB FS 0.5 MG/2.5 ML AMPUL.NEB IH SCH ×4 (01:06→19:28)
[2019-01-20] MEDS: ALBUTEROL FS 2.5 MG/3 ML VIAL.NEB NEB SCH ×4 (01:06→19:28)
[2019-01-20] MEDS: OMEPRAZOLE 20 MG CAPSULE.DR GT SCH (05:11)
[2019-01-20] MEDS: LEVOTHYROXINE SODIUM 88 MCG TABLET GT SCH (05:11)
[2019-01-20] MEDS: METOCLOPRAMIDE HCL 10 MG TABLET GT SCH ×4 (05:11→23:16)
--- NOTE | 2019-01-20 06:13 | NUR ---
Pt received on ordered CA 28% spare trach and ambu bag is at bedside, alarms are on and audible, all HHN tx. given and no adverse reaction observe. trach patent and secured, sxn prn, pt was stable the whole shift, no sob or respiratory distress noted during the shift
[2019-01-20 07:22] VITALS: BP 118/62
--- NOTE | 2019-01-20 08:17 | NUR ---
RT Pt received trached on cool aerosol tolerating well. Pt is awake but does not follow commands. HHN tx tolerated well with no adverse reactions. No respiratory distress noted. Addendum: 01/20/19 at 1637 by LIDYA POPE RT Amended: Links added.
[2019-01-20] MEDS: NYSTATIN/TRIAMCIN CREAM 15 GM TUBE TP SCH ×2 (09:00→21:19)
[2019-01-20] MEDS: HYDROGEN PEROXIDE 480 ML BOTTLE TP SCH ×2 (09:00→21:00)
[2019-01-20] MEDS: THERAHONEY GEL 1.5 OZ TUBE TP SCH ×2 (09:00→21:19)
[2019-01-20] MEDS: ZINC SULFATE 220 MG CAPSULE GT SCH (09:25)
[2019-01-20] MEDS: ACETAMINOPHEN 650 MG/20.3 ML UDC GT SCH ×2 (09:25→21:17)
[2019-01-20] MEDS: CARBOXYMETHYLCELLULOSE SODIUM 0.4 ML DROPERETTE EACHEYE SCH (09:25)
[2019-01-20] MEDS: LEVETIRACETAM SOL (5 ML) 100 MG/ML UDC GT SCH ×2 (09:25→21:17)
[2019-01-20] MEDS: PROSTAT (PYXIS) 30 ML UDC GT SCH ×3 (09:25→16:35)
[2019-01-20] MEDS: ACIDOPHILUS/BULGARICUS 1 EACH TAB.CHEW GT SCH ×2 (09:25→16:35)
[2019-01-20] MEDS: CHLORHEXIDINE GLUCONATE 15 ML UDC MM SCH ×2 (09:25→21:18)
[2019-01-20] MEDS: COD LIVER OIL/ZINC OXIDE 120 GM TUBE TP SCH ×6 (09:25→21:19)
[2019-01-20] MEDS: ASCORBIC ACID 500 MG TABLET GT SCH (09:25)
[2019-01-20] MEDS: MULTIVIT W/MINERALS 1 TAB TABLET GT SCH (09:25)
[2019-01-20 19:49] VITALS: BP 126/75
--- NOTE | 2019-01-20 21:00 | NUR ---
RN NOTES S/P flu vaccine with no A/R noted. Will continue to monitor.
[2019-01-21] MEDS: ALBUTEROL FS 2.5 MG/3 ML VIAL.NEB NEB SCH ×4 (01:02→19:49)
[2019-01-21] MEDS: IPRATROPIUM NEB FS 0.5 MG/2.5 ML AMPUL.NEB IH SCH ×4 (01:02→19:49)
[2019-01-21] MEDS: LEVOTHYROXINE SODIUM 88 MCG TABLET GT SCH (05:38)
[2019-01-21] MEDS: METOCLOPRAMIDE HCL 10 MG TABLET GT SCH ×3 (05:38→17:00)
[2019-01-21] MEDS: OMEPRAZOLE 20 MG CAPSULE.DR GT SCH (05:38)
[2019-01-21] MEDS: HYDROGEN PEROXIDE 480 ML BOTTLE TP SCH ×2 (07:13→19:49)
[2019-01-21 07:40] VITALS: BP 116/51
[2019-01-21] MEDS: PROSTAT (PYXIS) 30 ML UDC GT SCH ×3 (08:39→17:00)
[2019-01-21] MEDS: ASCORBIC ACID 500 MG TABLET GT SCH (08:39)
[2019-01-21] MEDS: ACETAMINOPHEN 650 MG/20.3 ML UDC GT SCH ×2 (08:39→21:13)
[2019-01-21] MEDS: LEVETIRACETAM SOL (5 ML) 100 MG/ML UDC GT SCH ×2 (08:39→21:13)
[2019-01-21] MEDS: ZINC SULFATE 220 MG CAPSULE GT SCH (08:39)
[2019-01-21] MEDS: CARBOXYMETHYLCELLULOSE SODIUM 0.4 ML DROPERETTE EACHEYE SCH (08:39)
[2019-01-21] MEDS: MULTIVIT W/MINERALS 1 TAB TABLET GT SCH (08:39)
[2019-01-21] MEDS: CHLORHEXIDINE GLUCONATE 15 ML UDC MM SCH ×2 (08:39→21:13)
[2019-01-21] MEDS: ACIDOPHILUS/BULGARICUS 1 EACH TAB.CHEW GT SCH ×2 (08:39→17:00)
[2019-01-21] MEDS: COD LIVER OIL/ZINC OXIDE 120 GM TUBE TP SCH ×6 (09:10→21:13)
[2019-01-21] MEDS: THERAHONEY GEL 1.5 OZ TUBE TP SCH ×2 (09:10→21:14)
[2019-01-21] MEDS: NYSTATIN/TRIAMCIN CREAM 15 GM TUBE TP SCH ×2 (09:10→21:13)
--- NOTE | 2019-01-21 12:35 | NUR ---
JOSSE contacted the patients daughter, Reyna Galindo [phone] to discuss past due share of cost owed to [facility]. Per Reyna, she would like JOSSE to call back at 3:30 pm -4 pm as she is currently at work. JOSSE will follow up.
--- NOTE | 2019-01-21 16:52 | NUR ---
No adverse reaction to flu vaccine noted.
--- NOTE | 2019-01-21 19:59 | NUR ---
RT NOTE: RECEIVED TRACH PT ON COOL AEROSOL. AMBU BAG @ BEDSIDE. Q6 BREATHING TX GIVEN PER MD ORDERS WITH NO ADVERSE REACTION NOTED. SX DONE PRN. TRACH PATENT AND SECURED. TRACH CARE DONE. NO RESP DISTRESS NOTED AT THIS TIME. WILL CONTINUE TO MONITOR PT Addendum: 01/22/19 at 0307 by RACHEL AVALOS RT Amended: Links added.
[2019-01-21 20:33] VITALS: BP 113/60
[2019-01-22] MEDS: METOCLOPRAMIDE HCL 10 MG TABLET GT SCH ×5 (00:20→23:46)
[2019-01-22] MEDS: IPRATROPIUM NEB FS 0.5 MG/2.5 ML AMPUL.NEB IH SCH ×4 (01:48→19:41)
[2019-01-22] MEDS: ALBUTEROL FS 2.5 MG/3 ML VIAL.NEB NEB SCH ×4 (01:48→19:41)
[2019-01-22] MEDS: OMEPRAZOLE 20 MG CAPSULE.DR GT SCH (06:12)
[2019-01-22] MEDS: LEVOTHYROXINE SODIUM 88 MCG TABLET GT SCH (06:13)
[2019-01-22 07:42] VITALS: BP 124/53
[2019-01-22] MEDS: MULTIVIT W/MINERALS 1 TAB TABLET GT SCH (08:48)
[2019-01-22] MEDS: CHLORHEXIDINE GLUCONATE 15 ML UDC MM SCH ×2 (08:48→21:04)
[2019-01-22] MEDS: ACETAMINOPHEN 650 MG/20.3 ML UDC GT SCH ×2 (08:48→21:04)
[2019-01-22] MEDS: CARBOXYMETHYLCELLULOSE SODIUM 0.4 ML DROPERETTE EACHEYE SCH (08:48)
[2019-01-22] MEDS: COD LIVER OIL/ZINC OXIDE 120 GM TUBE TP SCH ×6 (08:48→21:05)
[2019-01-22] MEDS: LEVETIRACETAM SOL (5 ML) 100 MG/ML UDC GT SCH ×2 (08:48→21:04)
[2019-01-22] MEDS: ZINC SULFATE 220 MG CAPSULE GT SCH (08:48)
[2019-01-22] MEDS: PROSTAT (PYXIS) 30 ML UDC GT SCH ×3 (08:48→17:13)
[2019-01-22] MEDS: ASCORBIC ACID 500 MG TABLET GT SCH (08:48)
[2019-01-22] MEDS: ACIDOPHILUS/BULGARICUS 1 EACH TAB.CHEW GT SCH ×2 (08:48→17:13)
[2019-01-22] MEDS: NYSTATIN/TRIAMCIN CREAM 15 GM TUBE TP SCH ×2 (08:49→21:05)
[2019-01-22] MEDS: THERAHONEY GEL 1.5 OZ TUBE TP SCH ×2 (08:49→21:05)
[2019-01-22] MEDS: HYDROGEN PEROXIDE 480 ML BOTTLE TP SCH ×2 (09:00→21:05)
--- NOTE | 2019-01-22 16:30 | NUR ---
JOSSE called dental office [phone] and spoke to Mystery to arrange dental exam and cleaning for pt. with Dr. Ortiz. Per mystery can see the pt. on 02/13/19 after 12:30pm. JOSSE faxed pt.s facesheet to dental office at FAX: [phone] and received completed fax receipt. JOSSE informed charge Nurse and pt.s family.
[2019-01-22 20:22] VITALS: BP 125/70
--- NOTE | 2019-01-22 20:27 | NUR ---
RT NOTE PT RECEIVED TRACHED ON COOL AEROSOL @ 28%. AMBU BAG/BACK UP TRACH @ BEDSIDE. TX GIVEN, NO ADVERSE REACTIONS NOTED. SX DONE, TRACH SECURED AND PATENT. WATER LEVEL GOOD. NO SOB NOTED AT THIS TIME. WILL CONTINUE TO MONITOR T/O SHIFT. Addendum: 01/22/19 at 2027 by LETITIA BENITES RT Amended: Links added.
[2019-01-23] MEDS: ALBUTEROL FS 2.5 MG/3 ML VIAL.NEB NEB SCH ×4 (01:14→20:22)
[2019-01-23] MEDS: IPRATROPIUM NEB FS 0.5 MG/2.5 ML AMPUL.NEB IH SCH ×4 (01:14→20:22)
[2019-01-23] MEDS: LEVOTHYROXINE SODIUM 88 MCG TABLET GT SCH (05:44)
[2019-01-23] MEDS: METOCLOPRAMIDE HCL 10 MG TABLET GT SCH ×4 (05:44→23:54)
[2019-01-23] MEDS: OMEPRAZOLE 20 MG CAPSULE.DR GT SCH (05:44)
[2019-01-23 07:40] VITALS: BP 126/67
[2019-01-23] MEDS: COD LIVER OIL/ZINC OXIDE 120 GM TUBE TP SCH ×6 (08:18→21:00)
[2019-01-23] MEDS: CHLORHEXIDINE GLUCONATE 15 ML UDC MM SCH ×2 (08:18→21:00)
[2019-01-23] MEDS: ASCORBIC ACID 500 MG TABLET GT SCH (08:18)
[2019-01-23] MEDS: NYSTATIN/TRIAMCIN CREAM 15 GM TUBE TP SCH ×2 (08:18→21:00)
[2019-01-23] MEDS: ACIDOPHILUS/BULGARICUS 1 EACH TAB.CHEW GT SCH ×2 (08:18→16:54)
[2019-01-23] MEDS: LEVETIRACETAM SOL (5 ML) 100 MG/ML UDC GT SCH ×2 (08:18→22:07)
[2019-01-23] MEDS: PROSTAT (PYXIS) 30 ML UDC GT SCH ×3 (08:18→16:54)
[2019-01-23] MEDS: ZINC SULFATE 220 MG CAPSULE GT SCH (08:18)
[2019-01-23] MEDS: ACETAMINOPHEN 650 MG/20.3 ML UDC GT SCH ×2 (08:18→21:00)
[2019-01-23] MEDS: CARBOXYMETHYLCELLULOSE SODIUM 0.4 ML DROPERETTE EACHEYE SCH (08:18)
[2019-01-23] MEDS: MULTIVIT W/MINERALS 1 TAB TABLET GT SCH (08:18)
[2019-01-23] MEDS: THERAHONEY GEL 1.5 OZ TUBE TP SCH ×2 (08:20→21:00)
[2019-01-23] MEDS: HYDROGEN PEROXIDE 480 ML BOTTLE TP SCH ×2 (09:00→21:00)
--- NOTE | 2019-01-23 14:53 | NUR ---
JOSSE called the patients responsible republican/daughter, Reyna Galindo [phone] to discuss the share of cost owed to [facility] and the payment options available. The call went to voicemail and JOSSE left a detailed voicemail expressing above stated information and a call back number.
[2019-01-23 19:53] VITALS: BP 123/77
[2019-01-24] MEDS: ALBUTEROL FS 2.5 MG/3 ML VIAL.NEB NEB SCH ×4 (01:40→19:55)
[2019-01-24] MEDS: IPRATROPIUM NEB FS 0.5 MG/2.5 ML AMPUL.NEB IH SCH ×4 (01:40→19:54)
[2019-01-24] MEDS: GLUCERNA 1.2 1,000 ML BOTTLE GT PRN (06:11)
[2019-01-24] MEDS: LEVOTHYROXINE SODIUM 88 MCG TABLET GT SCH (06:11)
[2019-01-24] MEDS: METOCLOPRAMIDE HCL 10 MG TABLET GT SCH ×4 (06:11→23:38)
[2019-01-24] MEDS: OMEPRAZOLE 20 MG CAPSULE.DR GT SCH (06:11)
[2019-01-24 07:22] VITALS: BP 158/69
[2019-01-24] MEDS: HYDROGEN PEROXIDE 480 ML BOTTLE TP SCH ×2 (09:00→21:06)
[2019-01-24] MEDS: ACIDOPHILUS/BULGARICUS 1 EACH TAB.CHEW GT SCH ×2 (09:18→17:50)
[2019-01-24] MEDS: LEVETIRACETAM SOL (5 ML) 100 MG/ML UDC GT SCH ×2 (09:18→21:05)
[2019-01-24] MEDS: CARBOXYMETHYLCELLULOSE SODIUM 0.4 ML DROPERETTE EACHEYE SCH (09:18)
[2019-01-24] MEDS: CHLORHEXIDINE GLUCONATE 15 ML UDC MM SCH ×2 (09:19→21:06)
[2019-01-24] MEDS: ACETAMINOPHEN 650 MG/20.3 ML UDC GT SCH ×2 (09:19→21:05)
[2019-01-24] MEDS: ASCORBIC ACID 500 MG TABLET GT SCH (09:19)
[2019-01-24] MEDS: ZINC SULFATE 220 MG CAPSULE GT SCH (09:19)
[2019-01-24] MEDS: PROSTAT (PYXIS) 30 ML UDC GT SCH ×3 (09:19→17:50)
[2019-01-24] MEDS: MULTIVIT W/MINERALS 1 TAB TABLET GT SCH (09:19)
[2019-01-24] MEDS: THERAHONEY GEL 1.5 OZ TUBE TP SCH ×2 (09:54→21:06)
[2019-01-24] MEDS: NYSTATIN/TRIAMCIN CREAM 15 GM TUBE TP SCH ×2 (09:54→21:06)
[2019-01-24] MEDS: COD LIVER OIL/ZINC OXIDE 120 GM TUBE TP SCH ×6 (09:54→21:06)
[2019-01-24 20:33] VITALS: BP 123/74
[2019-01-24] MEDS: diphenhydrAMINE HCL ELIX 25 MG/10 ML UDC GT PRN (22:31)
[2019-01-25] MEDS: IPRATROPIUM NEB FS 0.5 MG/2.5 ML AMPUL.NEB IH SCH ×4 (01:12→20:26)
[2019-01-25] MEDS: ALBUTEROL FS 2.5 MG/3 ML VIAL.NEB NEB SCH ×4 (01:12→20:26)
--- NOTE | 2019-01-25 04:48 | NUR ---
Received pt. stable on 28% FiO2 C/A, spare trach and ambu bag is at bedside, all tx. given and no adverse reaction observe, trach patent and secured, no sob or respiratory distress during shift, will continue to monitor.
[2019-01-25] MEDS: METOCLOPRAMIDE HCL 10 MG TABLET GT SCH ×4 (05:17→23:24)
[2019-01-25] MEDS: OMEPRAZOLE 20 MG CAPSULE.DR GT SCH (05:17)
[2019-01-25] MEDS: LEVOTHYROXINE SODIUM 88 MCG TABLET GT SCH (05:18)
[2019-01-25 07:34] VITALS: BP 120/77
[2019-01-25] MEDS: HYDROGEN PEROXIDE 480 ML BOTTLE TP SCH ×2 (08:08→20:53)
[2019-01-25] MEDS: GLUCERNA 1.2 1,000 ML BOTTLE GT PRN (08:39)
[2019-01-25] MEDS: LEVETIRACETAM SOL (5 ML) 100 MG/ML UDC GT SCH ×2 (09:00→20:52)
[2019-01-25] MEDS: CHLORHEXIDINE GLUCONATE 15 ML UDC MM SCH ×2 (09:00→20:52)
[2019-01-25] MEDS: NYSTATIN/TRIAMCIN CREAM 15 GM TUBE TP SCH ×2 (09:00→20:53)
[2019-01-25] MEDS: THERAHONEY GEL 1.5 OZ TUBE TP SCH ×2 (09:00→20:53)
[2019-01-25] MEDS: MULTIVIT W/MINERALS 1 TAB TABLET GT SCH (09:00)
[2019-01-25] MEDS: COD LIVER OIL/ZINC OXIDE 120 GM TUBE TP SCH ×6 (09:39→20:53)
[2019-01-25] MEDS: ACETAMINOPHEN 650 MG/20.3 ML UDC GT SCH ×2 (09:39→20:52)
[2019-01-25] MEDS: ASCORBIC ACID 500 MG TABLET GT SCH (09:39)
[2019-01-25] MEDS: ZINC SULFATE 220 MG CAPSULE GT SCH (09:39)
[2019-01-25] MEDS: CARBOXYMETHYLCELLULOSE SODIUM 0.4 ML DROPERETTE EACHEYE SCH (09:39)
[2019-01-25] MEDS: ACIDOPHILUS/BULGARICUS 1 EACH TAB.CHEW GT SCH ×2 (09:39→16:21)
[2019-01-25] MEDS: PROSTAT (PYXIS) 30 ML UDC GT SCH ×3 (09:39→16:21)
--- NOTE | 2019-01-25 15:55 | NUR ---
January INTERDISCIPLINARY PLAN OF CARE CONFERENCE was held today. The patients responsible libertarian/daughter, Reyna Galindo [phone] was not able to attend or participate via phone conference. Charge nurse discussed flu vaccine administered on 01/18/19 and no adverse reaction noted. Dr. Monet and Interdisciplinary team discussed the plan of care in detail. Current orders as well as treatments and medications were reviewed. Please see other disciplines IDT notes for further details.
--- NOTE | 2019-01-25 17:49 | NUR ---
INTERDISCIPLINARY TEAM CONFERENCE (IDT) was held today. Resident's daughter Reyna was not able to attend today's IDT meeting. Dr. Monet and the interdisciplinary team reviewed the current plan of care in detail. Orders as well as treatment and medications were reviewed. Dr. Monet ordered BMP on Monday per pharmacy recommendation. Resident's daughter Reyna informed.
[2019-01-25 19:34] VITALS: BP 123/67
[2019-01-26] MEDS: IPRATROPIUM NEB FS 0.5 MG/2.5 ML AMPUL.NEB IH SCH ×4 (01:58→19:46)
[2019-01-26] MEDS: ALBUTEROL FS 2.5 MG/3 ML VIAL.NEB NEB SCH ×4 (01:58→19:46)
[2019-01-26] MEDS: OMEPRAZOLE 20 MG CAPSULE.DR GT SCH (05:02)
[2019-01-26] MEDS: METOCLOPRAMIDE HCL 10 MG TABLET GT SCH ×4 (05:02→23:19)
[2019-01-26] MEDS: GLUCERNA 1.2 1,000 ML BOTTLE GT PRN (05:02)
[2019-01-26] MEDS: LEVOTHYROXINE SODIUM 88 MCG TABLET GT SCH (05:02)
[2019-01-26 07:36] VITALS: BP 117/71
[2019-01-26] MEDS: HYDROGEN PEROXIDE 480 ML BOTTLE TP SCH ×2 (09:00→20:34)
[2019-01-26] MEDS: ACIDOPHILUS/BULGARICUS 1 EACH TAB.CHEW GT SCH ×2 (09:56→17:41)
[2019-01-26] MEDS: PROSTAT (PYXIS) 30 ML UDC GT SCH ×3 (09:56→17:41)
[2019-01-26] MEDS: COD LIVER OIL/ZINC OXIDE 120 GM TUBE TP SCH ×6 (09:56→20:34)
[2019-01-26] MEDS: THERAHONEY GEL 1.5 OZ TUBE TP SCH ×2 (09:56→20:34)
[2019-01-26] MEDS: MULTIVIT W/MINERALS 1 TAB TABLET GT SCH (09:56)
[2019-01-26] MEDS: ASCORBIC ACID 500 MG TABLET GT SCH (09:56)
[2019-01-26] MEDS: ZINC SULFATE 220 MG CAPSULE GT SCH (09:56)
[2019-01-26] MEDS: ACETAMINOPHEN 650 MG/20.3 ML UDC GT SCH ×2 (09:56→20:34)
[2019-01-26] MEDS: LEVETIRACETAM SOL (5 ML) 100 MG/ML UDC GT SCH ×2 (09:56→20:34)
[2019-01-26] MEDS: CARBOXYMETHYLCELLULOSE SODIUM 0.4 ML DROPERETTE EACHEYE SCH (09:56)
[2019-01-26] MEDS: CHLORHEXIDINE GLUCONATE 15 ML UDC MM SCH ×2 (09:56→20:34)
[2019-01-26] MEDS: NYSTATIN/TRIAMCIN CREAM 15 GM TUBE TP SCH ×2 (09:56→20:34)
[2019-01-26 19:44] VITALS: BP 123/65
[2019-01-27] MEDS: IPRATROPIUM NEB FS 0.5 MG/2.5 ML AMPUL.NEB IH SCH ×4 (01:32→20:17)
[2019-01-27] MEDS: ALBUTEROL FS 2.5 MG/3 ML VIAL.NEB NEB SCH ×4 (01:32→20:17)
[2019-01-27] MEDS: GLUCERNA 1.2 1,000 ML BOTTLE GT PRN (05:28)
[2019-01-27] MEDS: METOCLOPRAMIDE HCL 10 MG TABLET GT SCH ×3 (05:28→18:12)
[2019-01-27] MEDS: OMEPRAZOLE 20 MG CAPSULE.DR GT SCH (05:28)
[2019-01-27] MEDS: LEVOTHYROXINE SODIUM 88 MCG TABLET GT SCH (05:28)
--- NOTE | 2019-01-27 05:37 | NUR ---
RT PATIENT WAS RECEIVED ON 28% COOL AEROSOL . AIRWAY PATENT AND SECURED. PATIENT STABLE THROUGHOUT THE SHIFT. WILL CONTINUE TO MONITOR. Addendum: 01/27/19 at 0537 by DAKSHA SHARP RT Amended: Links added.
[2019-01-27 07:43] VITALS: BP 100/60
--- NOTE | 2019-01-27 08:18 | NUR ---
RT Pt is awake but does not follow commands, pt is on cool aerosol tolerating well. HHN tx tolerated well with no adverse reactions. No respiratory distress noted. Addendum: 01/27/19 at 1543 by LIDYA POPE RT Amended: Links added.
[2019-01-27] MEDS: PROSTAT (PYXIS) 30 ML UDC GT SCH ×3 (08:35→17:00)
[2019-01-27] MEDS: CARBOXYMETHYLCELLULOSE SODIUM 0.4 ML DROPERETTE EACHEYE SCH (08:35)
[2019-01-27] MEDS: ACIDOPHILUS/BULGARICUS 1 EACH TAB.CHEW GT SCH ×2 (08:35→17:00)
[2019-01-27] MEDS: MULTIVIT W/MINERALS 1 TAB TABLET GT SCH (08:43)
[2019-01-27] MEDS: ASCORBIC ACID 500 MG TABLET GT SCH (08:43)
[2019-01-27] MEDS: ACETAMINOPHEN 650 MG/20.3 ML UDC GT SCH ×2 (08:43→20:30)
[2019-01-27] MEDS: CHLORHEXIDINE GLUCONATE 15 ML UDC MM SCH ×2 (08:43→20:31)
[2019-01-27] MEDS: LEVETIRACETAM SOL (5 ML) 100 MG/ML UDC GT SCH ×2 (08:43→20:30)
[2019-01-27] MEDS: ZINC SULFATE 220 MG CAPSULE GT SCH (08:43)
[2019-01-27] MEDS: HYDROGEN PEROXIDE 480 ML BOTTLE TP SCH ×2 (09:00→21:00)
[2019-01-27] MEDS: NYSTATIN/TRIAMCIN CREAM 15 GM TUBE TP SCH ×2 (09:48→20:31)
[2019-01-27] MEDS: THERAHONEY GEL 1.5 OZ TUBE TP SCH ×2 (09:48→20:31)
[2019-01-27] MEDS: COD LIVER OIL/ZINC OXIDE 120 GM TUBE TP SCH ×6 (09:48→20:30)
[2019-01-27 19:45] VITALS: BP 121/64
[2019-01-28] MEDS: METOCLOPRAMIDE HCL 10 MG TABLET GT SCH ×4 (00:21→18:26)
[2019-01-28] MEDS: ALBUTEROL FS 2.5 MG/3 ML VIAL.NEB NEB SCH ×4 (01:39→20:02)
[2019-01-28] MEDS: IPRATROPIUM NEB FS 0.5 MG/2.5 ML AMPUL.NEB IH SCH ×4 (01:39→20:02)
[2019-01-28] MEDS: GLUCERNA 1.2 1,000 ML BOTTLE GT PRN (04:41)
[2019-01-28] MEDS: LEVOTHYROXINE SODIUM 88 MCG TABLET GT SCH (05:23)
[2019-01-28] MEDS: OMEPRAZOLE 20 MG CAPSULE.DR GT SCH (05:23)
[2019-01-28 07:33] VITALS: BP 128/65
[2019-01-28] MEDS: HYDROGEN PEROXIDE 480 ML BOTTLE TP SCH ×2 (07:33→21:47)
[2019-01-28] MEDS: LEVETIRACETAM SOL (5 ML) 100 MG/ML UDC GT SCH ×2 (08:21→20:55)
[2019-01-28] MEDS: PROSTAT (PYXIS) 30 ML UDC GT SCH ×3 (08:21→16:59)
[2019-01-28] MEDS: ACIDOPHILUS/BULGARICUS 1 EACH TAB.CHEW GT SCH ×2 (08:21→16:59)
[2019-01-28] MEDS: CARBOXYMETHYLCELLULOSE SODIUM 0.4 ML DROPERETTE EACHEYE SCH (08:21)
[2019-01-28] MEDS: ASCORBIC ACID 500 MG TABLET GT SCH (08:22)
[2019-01-28] MEDS: ZINC SULFATE 220 MG CAPSULE GT SCH (08:22)
[2019-01-28] MEDS: ACETAMINOPHEN 650 MG/20.3 ML UDC GT SCH ×2 (08:22→20:55)
[2019-01-28] MEDS: CHLORHEXIDINE GLUCONATE 15 ML UDC MM SCH ×2 (08:24→20:55)
[2019-01-28 08:25] LABS: CALCIUM, SERUM 8.8 mg/dL (8.5-10.1); CREATININE 1.2 mg/dL (0.6-1.3); POTASSIUM 4.2 mmol/L (3.5-5.1)
[2019-01-28] MEDS: MULTIVIT W/MINERALS 1 TAB TABLET GT SCH (08:38)
[2019-01-28] MEDS: THERAHONEY GEL 1.5 OZ TUBE TP SCH ×2 (09:00→21:33)
[2019-01-28] MEDS: COD LIVER OIL/ZINC OXIDE 120 GM TUBE TP SCH ×6 (09:00→21:33)
[2019-01-28] MEDS: NYSTATIN/TRIAMCIN CREAM 15 GM TUBE TP SCH ×2 (09:00→21:33)
--- NOTE | 2019-01-28 11:21 | NUR ---
SOC UPDATE : LATE ENTRY FOR 01/24/19 JOSSE contacted patients daughter, Reyna Galindo to discuss share of cots (SOC). JSOSE informed Reyna that during 2015 -2016 there were no SOC,however, 2018 SOC was $657.00 began August-Mar -657.00x 9=$5,913.00, 2018 SOC =Apr $657.00, May-September $692.00 x5=3,460.00, October to current $1142.00 (increase of $450.00) -1142.00 x 4=$4,568.00, No payments have been received as of today, Outstanding balance: $14,598.00. Per Reyna, she was allegedly not aware of share of cost and stated she has used the patients SS benefits to pay the mortgage for the pt.s home, and car payment as well as other things the patient required. JOSSE educated Reyna about Resident Trust Fund accounts as an option so that the pt.s current SOC can be paid with ease. Reyna stated that she did not know how that can work when the pt.s house mortgage has to be paid, and the SS benefits are not enough to cover both expenses. Reyna wanted to speak to the business office regarding payment plan. JOSSE provided Reyna with business office phone number and transferred the call to Tamela Mayo.
[2019-01-28 20:14] VITALS: BP 118/76
--- NOTE | 2019-01-28 20:18 | NUR ---
RT NOTES PT RECEIVED TRACHED ON COOL AEROSOL FIO2 28%. NO SIGNS OF RESP DISTRESS/SOB NOTED. AIRWAY PATENT AND SECURED. PT SUCTIONED. HHN TX GIVEN. NO ADVERSE REACTIONS NOTED. AMBUBAG AND SPARE TRACH AT HEAD OF BED. WILL CONT TO MONITOR. Addendum: 01/28/19 at 2205 by GAVIN MARTINEZ RT Amended: Links added.
[2019-01-29] MEDS: METOCLOPRAMIDE HCL 10 MG TABLET GT SCH ×4 (00:09→17:40)
[2019-01-29] MEDS: IPRATROPIUM NEB FS 0.5 MG/2.5 ML AMPUL.NEB IH SCH ×4 (01:29→19:54)
[2019-01-29] MEDS: ALBUTEROL FS 2.5 MG/3 ML VIAL.NEB NEB SCH ×4 (01:29→19:54)
[2019-01-29] MEDS: LEVOTHYROXINE SODIUM 88 MCG TABLET GT SCH (05:46)
[2019-01-29] MEDS: OMEPRAZOLE 20 MG CAPSULE.DR GT SCH (05:46)
[2019-01-29] MEDS: GLUCERNA 1.2 1,000 ML BOTTLE GT PRN (06:20)
[2019-01-29 07:49] VITALS: BP 111/63
[2019-01-29] MEDS: MULTIVIT W/MINERALS 1 TAB TABLET GT SCH (08:24)
[2019-01-29] MEDS: LEVETIRACETAM SOL (5 ML) 100 MG/ML UDC GT SCH ×2 (08:24→20:52)
[2019-01-29] MEDS: CARBOXYMETHYLCELLULOSE SODIUM 0.4 ML DROPERETTE EACHEYE SCH (08:24)
[2019-01-29] MEDS: ACIDOPHILUS/BULGARICUS 1 EACH TAB.CHEW GT SCH ×2 (08:24→17:40)
[2019-01-29] MEDS: ZINC SULFATE 220 MG CAPSULE GT SCH (08:24)
[2019-01-29] MEDS: CHLORHEXIDINE GLUCONATE 15 ML UDC MM SCH ×2 (08:24→20:52)
[2019-01-29] MEDS: PROSTAT (PYXIS) 30 ML UDC GT SCH ×3 (08:24→17:41)
[2019-01-29] MEDS: ASCORBIC ACID 500 MG TABLET GT SCH (08:24)
[2019-01-29] MEDS: ACETAMINOPHEN 650 MG/20.3 ML UDC GT SCH ×2 (08:24→20:52)
[2019-01-29] MEDS: THERAHONEY GEL 1.5 OZ TUBE TP SCH ×2 (09:00→21:45)
[2019-01-29] MEDS: COD LIVER OIL/ZINC OXIDE 120 GM TUBE TP SCH ×6 (09:00→21:45)
[2019-01-29] MEDS: HYDROGEN PEROXIDE 480 ML BOTTLE TP SCH ×2 (09:00→20:34)
[2019-01-29] MEDS: NYSTATIN/TRIAMCIN CREAM 15 GM TUBE TP SCH ×2 (09:00→21:45)
--- NOTE | 2019-01-29 09:30 | NUR ---
MASD noted on perirectal area. Received order to apply Z-guard cream q shift and PRN for 14 days. Informed daughter.
[2019-01-29] MEDS: LOPERAMIDE HCL UDC(2 MG/10 ML) 2 MG/10 ML UDC GT PRN (14:10)
[2019-01-29] MEDS ORDERED: Z GUARD REMEDY 2 OZ OINT TP PRN (14:30)
[2019-01-29 20:35] VITALS: BP 128/63
--- NOTE | 2019-01-29 21:37 | NUR ---
RT NOTE PT RECEIVED ON COOL AEROSOL @ 28%. AMBU BAG/BACK UP TRACH @ BEDSIDE. TX GIVEN, NO ADVERSE REACTIONS NOTED. SX DONE, TRACH SECURED AND PATENT. NO SOB NOTED. WATER LEVEL GOOD. WILL MONITOR T/O SHIFT. Addendum: 01/29/19 at 2137 by LETITIA BENITES RT Amended: Links added.
[2019-01-29] MEDS: Z GUARD REMEDY 2 OZ OINT TP SCH (21:45)
[2019-01-30] MEDS: METOCLOPRAMIDE HCL 10 MG TABLET GT SCH ×5 (00:13→23:44)
[2019-01-30] MEDS: IPRATROPIUM NEB FS 0.5 MG/2.5 ML AMPUL.NEB IH SCH ×4 (01:54→19:34)
[2019-01-30] MEDS: ALBUTEROL FS 2.5 MG/3 ML VIAL.NEB NEB SCH ×4 (01:55→19:34)
[2019-01-30] MEDS: OMEPRAZOLE 20 MG CAPSULE.DR GT SCH (05:45)
[2019-01-30] MEDS: LEVOTHYROXINE SODIUM 88 MCG TABLET GT SCH (05:45)
[2019-01-30 07:33] VITALS: BP 126/71
[2019-01-30] MEDS: ACIDOPHILUS/BULGARICUS 1 EACH TAB.CHEW GT SCH ×2 (08:41→16:35)
[2019-01-30] MEDS: ZINC SULFATE 220 MG CAPSULE GT SCH (08:41)
[2019-01-30] MEDS: CHLORHEXIDINE GLUCONATE 15 ML UDC MM SCH ×2 (08:41→20:54)
[2019-01-30] MEDS: ASCORBIC ACID 500 MG TABLET GT SCH (08:41)
[2019-01-30] MEDS: CARBOXYMETHYLCELLULOSE SODIUM 0.4 ML DROPERETTE EACHEYE SCH (08:41)
[2019-01-30] MEDS: ACETAMINOPHEN 650 MG/20.3 ML UDC GT SCH ×2 (08:41→20:54)
[2019-01-30] MEDS: COD LIVER OIL/ZINC OXIDE 120 GM TUBE TP SCH ×4 (08:41→21:58)
[2019-01-30] MEDS: PROSTAT (PYXIS) 30 ML UDC GT SCH ×3 (08:41→16:35)
[2019-01-30] MEDS: LEVETIRACETAM SOL (5 ML) 100 MG/ML UDC GT SCH ×2 (08:41→20:53)
[2019-01-30] MEDS: MULTIVIT W/MINERALS 1 TAB TABLET GT SCH (08:41)
[2019-01-30] MEDS: Z GUARD REMEDY 2 OZ OINT TP SCH ×2 (08:43→21:58)
[2019-01-30] MEDS: NYSTATIN/TRIAMCIN CREAM 15 GM TUBE TP SCH ×2 (08:43→21:58)
[2019-01-30] MEDS: THERAHONEY GEL 1.5 OZ TUBE TP SCH ×2 (08:44→21:59)
[2019-01-30] MEDS: HYDROGEN PEROXIDE 480 ML BOTTLE TP SCH ×2 (09:12→21:00)
--- NOTE | 2019-01-30 14:42 | NUR ---
JOSSE completed SS portion of 2ND quarter MDS. The patients responsible republican is her daughter, Reyna Teresa [phone] who is involved and supportive. The patient is DNR, non-vent with trach. The patient is scheduled to have dental cleaning on 02/13/[address] Teresa and is scheduled to be seen by superintendent commissary, Dr. Martins on 02/01/19. The patients last podiatry visit was 01/18/[address] [place].
[2019-01-30 20:31] VITALS: BP 117/64
[2019-01-31] MEDS: IPRATROPIUM NEB FS 0.5 MG/2.5 ML AMPUL.NEB IH SCH ×4 (01:15→19:47)
[2019-01-31] MEDS: ALBUTEROL FS 2.5 MG/3 ML VIAL.NEB NEB SCH ×4 (01:15→19:47)
[2019-01-31] MEDS: OMEPRAZOLE 20 MG CAPSULE.DR GT SCH (05:31)
[2019-01-31] MEDS: METOCLOPRAMIDE HCL 10 MG TABLET GT SCH ×4 (05:31→23:23)
[2019-01-31] MEDS: GLUCERNA 1.2 1,000 ML BOTTLE GT PRN (05:31)
[2019-01-31] MEDS: LEVOTHYROXINE SODIUM 88 MCG TABLET GT SCH (05:31)
[2019-01-31 07:29] VITALS: BP 120/64
[2019-01-31] MEDS: HYDROGEN PEROXIDE 480 ML BOTTLE TP SCH ×2 (08:16→20:43)
[2019-01-31] MEDS: CARBOXYMETHYLCELLULOSE SODIUM 0.4 ML DROPERETTE EACHEYE SCH (09:21)
[2019-01-31] MEDS: ZINC SULFATE 220 MG CAPSULE GT SCH (09:21)
[2019-01-31] MEDS: ACETAMINOPHEN 650 MG/20.3 ML UDC GT SCH ×2 (09:21→20:43)
[2019-01-31] MEDS: ASCORBIC ACID 500 MG TABLET GT SCH (09:21)
[2019-01-31] MEDS: CHLORHEXIDINE GLUCONATE 15 ML UDC MM SCH ×2 (09:21→20:43)
[2019-01-31] MEDS: PROSTAT (PYXIS) 30 ML UDC GT SCH ×3 (09:21→16:42)
[2019-01-31] MEDS: MULTIVIT W/MINERALS 1 TAB TABLET GT SCH (09:21)
[2019-01-31] MEDS: ACIDOPHILUS/BULGARICUS 1 EACH TAB.CHEW GT SCH ×2 (09:21→16:42)
[2019-01-31] MEDS: LEVETIRACETAM SOL (5 ML) 100 MG/ML UDC GT SCH ×2 (09:21→20:43)
[2019-01-31] MEDS: COD LIVER OIL/ZINC OXIDE 120 GM TUBE TP SCH ×2 (09:22→20:43)
[2019-01-31] MEDS: Z GUARD REMEDY 2 OZ OINT TP SCH ×2 (09:22→20:44)
[2019-01-31] MEDS: NYSTATIN/TRIAMCIN CREAM 15 GM TUBE TP SCH ×2 (09:22→20:44)
[2019-01-31] MEDS: THERAHONEY GEL 1.5 OZ TUBE TP SCH ×2 (09:22→20:44)
--- NOTE | 2019-01-31 14:36 | NUR ---
Scheduled Optometry apt. : JOSSE contacted sonographer office to schedule apt. with Dr. Martins [phone] and spoke to Zuleima. Per Zuleima, Dr. Martins is available to service the pt. tomorrow 02/01/19 after 10 am. JOSSE informed charge nurse and patients daughter, Reyna Teresa [phone] who was agreeable to plan. JOSSE faxed residents face sheet to FAX: [phone] and received completed fax receipt.
--- NOTE | 2019-01-31 14:50 | NUR ---
SOC UPDATE: JOSSE contacted and spoke with pt.s daughter, Reyna Teresa [phone] to discuss Share of Cost (SOC) update. Per Reyna, she stated that she is working with the pt.s Medicare high risk case manager to figure some things out, did not disclose to SW any further details. Per Reyna, she is hoping to make a payment towards the SOC in the upcoming week. JOSSE will follow up.
--- NOTE | 2019-01-31 20:23 | NUR ---
Seen and examined by TERESA Smith no new order.
[2019-01-31 20:25] VITALS: BP 121/52
[2019-02-01] MEDS: IPRATROPIUM NEB FS 0.5 MG/2.5 ML AMPUL.NEB IH SCH ×4 (01:46→19:42)
[2019-02-01] MEDS: ALBUTEROL FS 2.5 MG/3 ML VIAL.NEB NEB SCH ×4 (01:46→19:42)
[2019-02-01] MEDS: METOCLOPRAMIDE HCL 10 MG TABLET GT SCH ×4 (05:08→23:49)
[2019-02-01] MEDS: OMEPRAZOLE 20 MG CAPSULE.DR GT SCH (05:08)
[2019-02-01] MEDS: LEVOTHYROXINE SODIUM 88 MCG TABLET GT SCH (05:08)
[2019-02-01] MEDS: GLUCERNA 1.2 1,000 ML BOTTLE GT PRN (05:08)
[2019-02-01 07:40] VITALS: BP 120/63
[2019-02-01] MEDS: ACIDOPHILUS/BULGARICUS 1 EACH TAB.CHEW GT SCH ×2 (08:31→17:48)
[2019-02-01] MEDS: CHLORHEXIDINE GLUCONATE 15 ML UDC MM SCH ×2 (08:31→20:43)
[2019-02-01] MEDS: LEVETIRACETAM SOL (5 ML) 100 MG/ML UDC GT SCH ×2 (08:31→20:43)
[2019-02-01] MEDS: PROSTAT (PYXIS) 30 ML UDC GT SCH ×3 (08:31→17:48)
[2019-02-01] MEDS: MULTIVIT W/MINERALS 1 TAB TABLET GT SCH (08:31)
[2019-02-01] MEDS: ACETAMINOPHEN 650 MG/20.3 ML UDC GT SCH ×2 (08:31→20:43)
[2019-02-01] MEDS: ZINC SULFATE 220 MG CAPSULE GT SCH (08:31)
[2019-02-01] MEDS: CARBOXYMETHYLCELLULOSE SODIUM 0.4 ML DROPERETTE EACHEYE SCH (08:31)
[2019-02-01] MEDS: ASCORBIC ACID 500 MG TABLET GT SCH (08:31)
[2019-02-01] MEDS: Z GUARD REMEDY 2 OZ OINT TP SCH ×2 (09:00→20:43)
[2019-02-01] MEDS: THERAHONEY GEL 1.5 OZ TUBE TP SCH ×2 (09:00→20:43)
[2019-02-01] MEDS: NYSTATIN/TRIAMCIN CREAM 15 GM TUBE TP SCH ×2 (09:00→20:43)
[2019-02-01] MEDS: COD LIVER OIL/ZINC OXIDE 120 GM TUBE TP SCH ×2 (09:00→20:43)
[2019-02-01] MEDS: HYDROGEN PEROXIDE 480 ML BOTTLE TP SCH ×2 (09:27→19:42)
--- NOTE | 2019-02-01 14:25 | NUR ---
Per Sub-Acute Directors request, [facility] [[address] [place], [address]; TEL: [phone] FAX: [phone]] and spoke to Adam in regard to Non-Covered Medication Notification that was received from [facility] [employer]. The document states that specified medication will not be covered by the pt.s insurance because the patient is under the care of a non-contracted hospice, [facility] [phone]. However, the pt. in fact, resides at [facility] [[address]. [place], [address]; [phone]]. JOSSE communicated above stated information to Adam. dAam informed JOSSE that the patients residence status would be corrected and the insurance verification for the medication would be resubmitted for approval. Per Adam, she will call JOSSE back with update. Director informed.
--- NOTE | 2019-02-01 14:40 | NUR ---
The resident had their optometry exam with today. No new orders. SW informed pt.'s daughter, Reyna Teresa [phone]. Reyna was grateful for update.
--- NOTE | 2019-02-01 17:16 | NUR ---
Pt receive stable on 28 % CA, alarms are on and audible, spare trach and ambu bag is at bedside, trach patent and secured. will continue to monitor during the shift. Addendum: 02/01/19 at 1717 by ABIEL DERAS RT Amended: Links added.
--- NOTE | 2019-02-01 17:22 | NUR ---
Pt receive stable on 28% FiO2 cool aerosol via T-bar, trach patent and secured, all tx given and no adverse reaction observe. Will continue to monitor. Addendum: 02/01/19 at 1722 by ABIEL DERAS RT Amended: Links added.
--- NOTE | 2019-02-01 19:52 | NUR ---
RT NOTE: RECEIVED TRACH PT ON COOL AEROSOL. AMBU BAG @ BEDSIDE. Q6 BREATHING TX GIVEN PER MD ORDERS WITH NO ADVERSE REACTION NOTED. SX DONE PRN. TRACH PATENT AND SECURED. TRACH CARE DONE. NO RESP DISTRESS NOTED AT THIS TIME. WILL CONTINUE TO MONITOR PT Addendum: 02/02/19 at 0516 by RACHEL AVALOS RT Amended: Links added.
[2019-02-01 20:21] VITALS: BP 128/63
[2019-02-02] MEDS: ALBUTEROL FS 2.5 MG/3 ML VIAL.NEB NEB SCH ×4 (01:44→19:38)
[2019-02-02] MEDS: IPRATROPIUM NEB FS 0.5 MG/2.5 ML AMPUL.NEB IH SCH ×4 (01:44→19:38)
[2019-02-02] MEDS: GLUCERNA 1.2 1,000 ML BOTTLE GT PRN (05:36)
[2019-02-02] MEDS: LEVOTHYROXINE SODIUM 88 MCG TABLET GT SCH (05:36)
[2019-02-02] MEDS: METOCLOPRAMIDE HCL 10 MG TABLET GT SCH ×4 (05:36→23:11)
[2019-02-02] MEDS: OMEPRAZOLE 20 MG CAPSULE.DR GT SCH (05:36)
[2019-02-02 07:43] VITALS: BP 126/70
[2019-02-02] MEDS: ACIDOPHILUS/BULGARICUS 1 EACH TAB.CHEW GT SCH ×2 (08:53→17:53)
[2019-02-02] MEDS: CARBOXYMETHYLCELLULOSE SODIUM 0.4 ML DROPERETTE EACHEYE SCH (08:53)
[2019-02-02] MEDS: PROSTAT (PYXIS) 30 ML UDC GT SCH ×3 (08:54→17:53)
[2019-02-02] MEDS: ACETAMINOPHEN 650 MG/20.3 ML UDC GT SCH ×2 (08:54→20:25)
[2019-02-02] MEDS: ASCORBIC ACID 500 MG TABLET GT SCH (08:54)
[2019-02-02] MEDS: CHLORHEXIDINE GLUCONATE 15 ML UDC MM SCH ×2 (08:54→20:25)
[2019-02-02] MEDS: ZINC SULFATE 220 MG CAPSULE GT SCH (08:54)
[2019-02-02] MEDS: MULTIVIT W/MINERALS 1 TAB TABLET GT SCH (08:56)
[2019-02-02] MEDS: LEVETIRACETAM SOL (5 ML) 100 MG/ML UDC GT SCH ×2 (08:56→20:25)
[2019-02-02] MEDS: HYDROGEN PEROXIDE 480 ML BOTTLE TP SCH ×2 (09:01→19:38)
[2019-02-02] MEDS: Z GUARD REMEDY 2 OZ OINT TP SCH ×2 (09:07→20:25)
[2019-02-02] MEDS: COD LIVER OIL/ZINC OXIDE 120 GM TUBE TP SCH ×2 (09:07→20:25)
--- NOTE | 2019-02-02 18:35 | NUR ---
Notified Dr. Ross that patient's Morphine and Ativan is not being use and also not covered by patient's insurance. Dr. Ross discontinue Morphine and Ativan order. Left a message to patient's daughter Reyna.
[2019-02-02 20:21] VITALS: BP 111/62
[2019-02-03] MEDS: IPRATROPIUM NEB FS 0.5 MG/2.5 ML AMPUL.NEB IH SCH ×4 (00:49→20:10)
[2019-02-03] MEDS: ALBUTEROL FS 2.5 MG/3 ML VIAL.NEB NEB SCH ×4 (00:50→20:10)
--- NOTE | 2019-02-03 04:00 | NUR ---
RT NOTE RECEIVED PT WITH THE NOTED CONDITION. PT NOLVIA. TX WELL. WILL CONTINUE WITH CURRENT PLAN OF CARE. Addendum: 02/03/19 at 0402 by KAUSHAL HAN RT Amended: Links added.
[2019-02-03] MEDS: LEVOTHYROXINE SODIUM 88 MCG TABLET GT SCH (05:18)
[2019-02-03] MEDS: GLUCERNA 1.2 1,000 ML BOTTLE GT PRN (05:18)
[2019-02-03] MEDS: OMEPRAZOLE 20 MG CAPSULE.DR GT SCH (05:18)
[2019-02-03] MEDS: METOCLOPRAMIDE HCL 10 MG TABLET GT SCH ×3 (05:18→18:09)
--- NOTE | 2019-02-03 06:14 | NUR ---
Noted pt's rojas cath bypassing- PRN changed with 18 fr 10 ml, tolerated well w/ no s/sx of bleeding- clear yellow urine draining. Pt kept clean and comfortable. All needs anticipated and attended. Safety measures observed.
[2019-02-03 07:49] VITALS: BP 127/54
[2019-02-03] MEDS: HYDROGEN PEROXIDE 480 ML BOTTLE TP SCH ×2 (09:00→20:11)
[2019-02-03] MEDS: PROSTAT (PYXIS) 30 ML UDC GT SCH ×3 (09:33→17:09)
[2019-02-03] MEDS: CARBOXYMETHYLCELLULOSE SODIUM 0.4 ML DROPERETTE EACHEYE SCH (09:33)
[2019-02-03] MEDS: LEVETIRACETAM SOL (5 ML) 100 MG/ML UDC GT SCH ×2 (09:33→21:23)
[2019-02-03] MEDS: MULTIVIT W/MINERALS 1 TAB TABLET GT SCH (09:33)
[2019-02-03] MEDS: ACIDOPHILUS/BULGARICUS 1 EACH TAB.CHEW GT SCH ×2 (09:33→17:09)
[2019-02-03] MEDS: ZINC SULFATE 220 MG CAPSULE GT SCH (09:34)
[2019-02-03] MEDS: COD LIVER OIL/ZINC OXIDE 120 GM TUBE TP SCH ×2 (09:34→21:26)
[2019-02-03] MEDS: ACETAMINOPHEN 650 MG/20.3 ML UDC GT SCH ×2 (09:34→21:23)
[2019-02-03] MEDS: ASCORBIC ACID 500 MG TABLET GT SCH (09:34)
[2019-02-03] MEDS: Z GUARD REMEDY 2 OZ OINT TP SCH ×2 (09:34→21:27)
[2019-02-03] MEDS: CHLORHEXIDINE GLUCONATE 15 ML UDC MM SCH ×2 (09:34→21:26)
--- NOTE | 2019-02-03 09:50 | NUR ---
Seen and examined by Dr. Ross, no new order given.
[2019-02-03 19:55] VITALS: BP 131/69
[2019-02-04] MEDS: METOCLOPRAMIDE HCL 10 MG TABLET GT SCH ×4 (00:20→17:25)
[2019-02-04] MEDS: IPRATROPIUM NEB FS 0.5 MG/2.5 ML AMPUL.NEB IH SCH ×4 (01:05→19:30)
[2019-02-04] MEDS: ALBUTEROL FS 2.5 MG/3 ML VIAL.NEB NEB SCH ×4 (01:05→19:30)
[2019-02-04] MEDS: GLUCERNA 1.2 1,000 ML BOTTLE GT PRN (05:11)
[2019-02-04] MEDS: OMEPRAZOLE 20 MG CAPSULE.DR GT SCH (05:27)
[2019-02-04] MEDS: LEVOTHYROXINE SODIUM 88 MCG TABLET GT SCH (05:27)
[2019-02-04 07:51] VITALS: BP 106/68
[2019-02-04] MEDS: CARBOXYMETHYLCELLULOSE SODIUM 0.4 ML DROPERETTE EACHEYE SCH (08:06)
[2019-02-04] MEDS: MULTIVIT W/MINERALS 1 TAB TABLET GT SCH (08:07)
[2019-02-04] MEDS: CHLORHEXIDINE GLUCONATE 15 ML UDC MM SCH ×2 (08:07→20:22)
[2019-02-04] MEDS: ASCORBIC ACID 500 MG TABLET GT SCH (08:07)
[2019-02-04] MEDS: LEVETIRACETAM SOL (5 ML) 100 MG/ML UDC GT SCH ×2 (08:07→20:20)
[2019-02-04] MEDS: ACIDOPHILUS/BULGARICUS 1 EACH TAB.CHEW GT SCH ×2 (08:07→16:28)
[2019-02-04] MEDS: ZINC SULFATE 220 MG CAPSULE GT SCH (08:07)
[2019-02-04] MEDS: ACETAMINOPHEN 650 MG/20.3 ML UDC GT SCH ×2 (08:07→20:20)
[2019-02-04] MEDS: PROSTAT (PYXIS) 30 ML UDC GT SCH ×3 (08:07→16:29)
[2019-02-04] MEDS: THERAHONEY GEL 1.5 OZ TUBE TP SCH ×2 (09:00→21:40)
[2019-02-04] MEDS: Z GUARD REMEDY 2 OZ OINT TP SCH ×2 (09:00→21:40)
[2019-02-04] MEDS: HYDROGEN PEROXIDE 480 ML BOTTLE TP SCH ×2 (09:00→21:14)
[2019-02-04] MEDS: NYSTATIN/TRIAMCIN CREAM 15 GM TUBE TP SCH ×2 (09:00→21:40)
[2019-02-04] MEDS: COD LIVER OIL/ZINC OXIDE 120 GM TUBE TP SCH ×2 (09:00→21:40)
--- NOTE | 2019-02-04 11:22 | NUR ---
Per Directors request, JOSSE contacted the patients insurance, Medicare Part B at [phone] to correct the patients current residence as they believe the pt. resides in a hospice, However, the pt. in fact, resides at [facility]. JOSSE was redirected to Prescription Insurance Coverage dept. [phone] and spoke with PharmacistAlmas who corrected the pt.s residence to [facility]. Almas verified medication details with JOSSE and will expedite the medication once the insurance verification goes through. Per Almas, Fax will be sent to attending Physicians (Vandana Arteaga MD) office FAX: . JOSSE communicated to Director. Case #[id number].
[2019-02-04 19:41] VITALS: BP 117/75
[2019-02-05] MEDS: METOCLOPRAMIDE HCL 10 MG TABLET GT SCH ×5 (00:18→23:38)
[2019-02-05] MEDS: IPRATROPIUM NEB FS 0.5 MG/2.5 ML AMPUL.NEB IH SCH ×4 (00:53→20:09)
[2019-02-05] MEDS: ALBUTEROL FS 2.5 MG/3 ML VIAL.NEB NEB SCH ×4 (00:53→20:09)
[2019-02-05] MEDS: LEVOTHYROXINE SODIUM 88 MCG TABLET GT SCH (05:38)
[2019-02-05] MEDS: OMEPRAZOLE 20 MG CAPSULE.DR GT SCH (05:38)
[2019-02-05] MEDS: GLUCERNA 1.2 1,000 ML BOTTLE GT PRN (06:10)
[2019-02-05 07:49] VITALS: BP 127/56
[2019-02-05] MEDS: ACIDOPHILUS/BULGARICUS 1 EACH TAB.CHEW GT SCH ×2 (08:32→17:48)
[2019-02-05] MEDS: LEVETIRACETAM SOL (5 ML) 100 MG/ML UDC GT SCH ×2 (08:32→20:15)
[2019-02-05] MEDS: MULTIVIT W/MINERALS 1 TAB TABLET GT SCH (08:32)
[2019-02-05] MEDS: CARBOXYMETHYLCELLULOSE SODIUM 0.4 ML DROPERETTE EACHEYE SCH (08:32)
[2019-02-05] MEDS: PROSTAT (PYXIS) 30 ML UDC GT SCH ×3 (08:32→17:49)
[2019-02-05] MEDS: ASCORBIC ACID 500 MG TABLET GT SCH (08:35)
[2019-02-05] MEDS: CHLORHEXIDINE GLUCONATE 15 ML UDC MM SCH ×2 (08:35→20:15)
[2019-02-05] MEDS: ACETAMINOPHEN 650 MG/20.3 ML UDC GT SCH ×2 (08:35→20:15)
[2019-02-05] MEDS: ZINC SULFATE 220 MG CAPSULE GT SCH (08:35)
[2019-02-05] MEDS: NYSTATIN/TRIAMCIN CREAM 15 GM TUBE TP SCH ×2 (09:00→21:06)
[2019-02-05] MEDS: THERAHONEY GEL 1.5 OZ TUBE TP SCH ×2 (09:00→21:06)
[2019-02-05] MEDS: HYDROGEN PEROXIDE 480 ML BOTTLE TP SCH ×2 (09:00→21:00)
[2019-02-05] MEDS: COD LIVER OIL/ZINC OXIDE 120 GM TUBE TP SCH ×2 (09:00→21:06)
[2019-02-05] MEDS: Z GUARD REMEDY 2 OZ OINT TP SCH ×2 (09:00→21:06)
[2019-02-05 20:02] VITALS: BP 124/74
[2019-02-06] MEDS: IPRATROPIUM NEB FS 0.5 MG/2.5 ML AMPUL.NEB IH SCH ×4 (01:30→20:17)
[2019-02-06] MEDS: ALBUTEROL FS 2.5 MG/3 ML VIAL.NEB NEB SCH ×4 (01:30→20:17)
[2019-02-06] MEDS: OMEPRAZOLE 20 MG CAPSULE.DR GT SCH (05:27)
[2019-02-06] MEDS: METOCLOPRAMIDE HCL 10 MG TABLET GT SCH ×4 (05:27→23:29)
[2019-02-06] MEDS: GLUCERNA 1.2 1,000 ML BOTTLE GT PRN (05:27)
[2019-02-06] MEDS: LEVOTHYROXINE SODIUM 88 MCG TABLET GT SCH (05:27)
[2019-02-06 07:54] VITALS: BP 116/63
[2019-02-06] MEDS: HYDROGEN PEROXIDE 480 ML BOTTLE TP SCH ×2 (08:17→21:00)
[2019-02-06] MEDS: ASCORBIC ACID 500 MG TABLET GT SCH (09:09)
[2019-02-06] MEDS: NYSTATIN/TRIAMCIN CREAM 15 GM TUBE TP SCH ×2 (09:09→21:06)
[2019-02-06] MEDS: MULTIVIT W/MINERALS 1 TAB TABLET GT SCH (09:09)
[2019-02-06] MEDS: THERAHONEY GEL 1.5 OZ TUBE TP SCH ×2 (09:09→21:06)
[2019-02-06] MEDS: ACIDOPHILUS/BULGARICUS 1 EACH TAB.CHEW GT SCH ×2 (09:09→17:57)
[2019-02-06] MEDS: ACETAMINOPHEN 650 MG/20.3 ML UDC GT SCH ×2 (09:09→20:29)
[2019-02-06] MEDS: CHLORHEXIDINE GLUCONATE 15 ML UDC MM SCH ×2 (09:09→20:29)
[2019-02-06] MEDS: PROSTAT (PYXIS) 30 ML UDC GT SCH ×3 (09:09→17:57)
[2019-02-06] MEDS: COD LIVER OIL/ZINC OXIDE 120 GM TUBE TP SCH ×2 (09:09→21:06)
[2019-02-06] MEDS: LEVETIRACETAM SOL (5 ML) 100 MG/ML UDC GT SCH ×2 (09:09→20:29)
[2019-02-06] MEDS: CARBOXYMETHYLCELLULOSE SODIUM 0.4 ML DROPERETTE EACHEYE SCH (09:09)
[2019-02-06] MEDS: ZINC SULFATE 220 MG CAPSULE GT SCH (09:09)
[2019-02-06] MEDS: Z GUARD REMEDY 2 OZ OINT TP SCH ×2 (09:09→21:06)
[2019-02-07] MEDS: IPRATROPIUM NEB FS 0.5 MG/2.5 ML AMPUL.NEB IH SCH ×4 (02:15→19:46)
[2019-02-07] MEDS: ALBUTEROL FS 2.5 MG/3 ML VIAL.NEB NEB SCH ×4 (02:15→19:46)
[2019-02-07] MEDS: OMEPRAZOLE 20 MG CAPSULE.DR GT SCH (05:34)
[2019-02-07] MEDS: METOCLOPRAMIDE HCL 10 MG TABLET GT SCH ×3 (05:34→18:09)
[2019-02-07] MEDS: LEVOTHYROXINE SODIUM 88 MCG TABLET GT SCH (05:34)
[2019-02-07 07:23] VITALS: BP 104/56
[2019-02-07] MEDS: HYDROGEN PEROXIDE 480 ML BOTTLE TP SCH ×2 (08:08→20:42)
[2019-02-07] MEDS: NYSTATIN/TRIAMCIN CREAM 15 GM TUBE TP SCH ×2 (09:00→21:35)
[2019-02-07] MEDS: Z GUARD REMEDY 2 OZ OINT TP SCH ×2 (09:00→21:35)
[2019-02-07] MEDS: THERAHONEY GEL 1.5 OZ TUBE TP SCH ×2 (09:00→21:35)
[2019-02-07] MEDS: CARBOXYMETHYLCELLULOSE SODIUM 0.4 ML DROPERETTE EACHEYE SCH (09:08)
[2019-02-07] MEDS: ASCORBIC ACID 500 MG TABLET GT SCH (09:08)
[2019-02-07] MEDS: MULTIVIT W/MINERALS 1 TAB TABLET GT SCH (09:08)
[2019-02-07] MEDS: PROSTAT (PYXIS) 30 ML UDC GT SCH ×3 (09:08→16:37)
[2019-02-07] MEDS: LEVETIRACETAM SOL (5 ML) 100 MG/ML UDC GT SCH ×2 (09:08→21:34)
[2019-02-07] MEDS: ZINC SULFATE 220 MG CAPSULE GT SCH (09:08)
[2019-02-07] MEDS: ACIDOPHILUS/BULGARICUS 1 EACH TAB.CHEW GT SCH ×2 (09:08→16:37)
[2019-02-07] MEDS: ACETAMINOPHEN 650 MG/20.3 ML UDC GT SCH ×2 (09:08→21:34)
[2019-02-07] MEDS: CHLORHEXIDINE GLUCONATE 15 ML UDC MM SCH ×2 (09:09→21:34)
[2019-02-07] MEDS: COD LIVER OIL/ZINC OXIDE 120 GM TUBE TP SCH ×2 (09:09→21:35)
--- NOTE | 2019-02-07 11:30 | NUR ---
JOSSE called [employer] Prescription Insurance Coverage dept. [phone] and spoke with Rahul to follow up with medication approval (see 02/04/19 SS note). Per Rahul, stated that the prior authorization for the patients medication (Metoclopramide 5MG/5 ML SOLN) was approved. Prior Authorization #[id number]. SA Director informed.
--- NOTE | 2019-02-07 19:14 | NUR ---
Seen by TERESA Smith. Received order to DC Hydralazine PRN. Pt has not been using it.
[2019-02-07 20:44] VITALS: BP 124/74
[2019-02-08] MEDS: METOCLOPRAMIDE HCL 10 MG TABLET GT SCH ×5 (00:16→23:55)
[2019-02-08] MEDS: ALBUTEROL FS 2.5 MG/3 ML VIAL.NEB NEB SCH ×4 (01:41→19:29)
[2019-02-08] MEDS: IPRATROPIUM NEB FS 0.5 MG/2.5 ML AMPUL.NEB IH SCH ×4 (01:41→19:29)
[2019-02-08] MEDS: OMEPRAZOLE 20 MG CAPSULE.DR GT SCH (05:58)
[2019-02-08] MEDS: LEVOTHYROXINE SODIUM 88 MCG TABLET GT SCH (05:58)
[2019-02-08] MEDS: GLUCERNA 1.2 1,000 ML BOTTLE GT PRN (06:14)
[2019-02-08 07:22] VITALS: BP 106/54
[2019-02-08] MEDS: HYDROGEN PEROXIDE 480 ML BOTTLE TP SCH ×2 (07:23→20:52)
[2019-02-08] MEDS: Z GUARD REMEDY 2 OZ OINT TP SCH ×2 (09:00→20:52)
[2019-02-08] MEDS: COD LIVER OIL/ZINC OXIDE 120 GM TUBE TP SCH ×2 (09:00→20:52)
[2019-02-08] MEDS: NYSTATIN/TRIAMCIN CREAM 15 GM TUBE TP SCH ×2 (09:00→20:52)
[2019-02-08] MEDS: THERAHONEY GEL 1.5 OZ TUBE TP SCH ×2 (09:00→20:52)
[2019-02-08] MEDS: PROSTAT (PYXIS) 30 ML UDC GT SCH ×3 (09:23→17:23)
[2019-02-08] MEDS: ACETAMINOPHEN 650 MG/20.3 ML UDC GT SCH ×2 (09:23→20:51)
[2019-02-08] MEDS: LEVETIRACETAM SOL (5 ML) 100 MG/ML UDC GT SCH ×2 (09:23→20:51)
[2019-02-08] MEDS: ACIDOPHILUS/BULGARICUS 1 EACH TAB.CHEW GT SCH ×2 (09:23→17:23)
[2019-02-08] MEDS: CARBOXYMETHYLCELLULOSE SODIUM 0.4 ML DROPERETTE EACHEYE SCH (09:23)
[2019-02-08] MEDS: MULTIVIT W/MINERALS 1 TAB TABLET GT SCH (09:23)
[2019-02-08] MEDS: CHLORHEXIDINE GLUCONATE 15 ML UDC MM SCH ×2 (09:23→20:51)
[2019-02-08] MEDS: ASCORBIC ACID 500 MG TABLET GT SCH (09:23)
[2019-02-08] MEDS: ZINC SULFATE 220 MG CAPSULE GT SCH (09:23)
--- NOTE | 2019-02-08 20:00 | NUR ---
Seen and examined by Dr. Ross no new order.
[2019-02-08 20:21] VITALS: BP 119/58
[2019-02-09] MEDS: IPRATROPIUM NEB FS 0.5 MG/2.5 ML AMPUL.NEB IH SCH ×4 (01:32→19:41)
[2019-02-09] MEDS: ALBUTEROL FS 2.5 MG/3 ML VIAL.NEB NEB SCH ×4 (01:32→19:41)
--- NOTE | 2019-02-09 05:23 | NUR ---
RT Patient was received on 28% cool aerosol.Patient stable throughout the shift. Trach is patent and secured.Will continue to monitor. Addendum: 02/09/19 at 0524 by DAKSHA SHARP RT Amended: Links added.
[2019-02-09] MEDS: OMEPRAZOLE 20 MG CAPSULE.DR GT SCH (06:03)
[2019-02-09] MEDS: LEVOTHYROXINE SODIUM 88 MCG TABLET GT SCH (06:03)
[2019-02-09] MEDS: METOCLOPRAMIDE HCL 10 MG TABLET GT SCH (06:03)
[2019-02-09 07:40] VITALS: BP 108/64
[2019-02-09] MEDS: ASCORBIC ACID 500 MG TABLET GT SCH (08:42)
[2019-02-09] MEDS: PROSTAT (PYXIS) 30 ML UDC GT SCH ×3 (08:42→17:33)
[2019-02-09] MEDS: CARBOXYMETHYLCELLULOSE SODIUM 0.4 ML DROPERETTE EACHEYE SCH (08:42)
[2019-02-09] MEDS: ACETAMINOPHEN 650 MG/20.3 ML UDC GT SCH ×2 (08:42→21:03)
[2019-02-09] MEDS: ZINC SULFATE 220 MG CAPSULE GT SCH (08:42)
[2019-02-09] MEDS: MULTIVIT W/MINERALS 1 TAB TABLET GT SCH (08:42)
[2019-02-09] MEDS: LEVETIRACETAM SOL (5 ML) 100 MG/ML UDC GT SCH ×2 (08:42→21:03)
[2019-02-09] MEDS: ACIDOPHILUS/BULGARICUS 1 EACH TAB.CHEW GT SCH ×2 (08:42→17:33)
[2019-02-09] MEDS: CHLORHEXIDINE GLUCONATE 15 ML UDC MM SCH ×2 (08:43→21:03)
[2019-02-09] MEDS: Z GUARD REMEDY 2 OZ OINT TP SCH ×2 (09:00→21:03)
[2019-02-09] MEDS: HYDROGEN PEROXIDE 480 ML BOTTLE TP SCH ×2 (09:00→21:03)
[2019-02-09] MEDS: COD LIVER OIL/ZINC OXIDE 120 GM TUBE TP SCH ×2 (09:00→21:03)
[2019-02-09] MEDS: NYSTATIN/TRIAMCIN CREAM 15 GM TUBE TP SCH ×2 (09:00→21:03)
[2019-02-09] MEDS: THERAHONEY GEL 1.5 OZ TUBE TP SCH ×2 (09:00→21:03)
[2019-02-09] MEDS: GLUCERNA 1.2 1,000 ML BOTTLE GT PRN (09:10)
[2019-02-09] MEDS: METOCLOPRAMIDE HCL 10 MG/10 ML UDC GT SCH ×2 (12:19→17:33)
[2019-02-09 19:41] VITALS: BP 112/60
[2019-02-10] MEDS: IPRATROPIUM NEB FS 0.5 MG/2.5 ML AMPUL.NEB IH SCH ×4 (01:37→19:33)
[2019-02-10] MEDS: ALBUTEROL FS 2.5 MG/3 ML VIAL.NEB NEB SCH ×4 (01:37→19:33)
--- NOTE | 2019-02-10 03:55 | NUR ---
Pt receive stable on 28% FiO2, spare trach and ambu bag at bedside , trach patent and secured, will continue to monitor Addendum: 02/10/19 at 0356 by ABIEL DERAS RT Amended: Links added.
[2019-02-10] MEDS: LEVOTHYROXINE SODIUM 88 MCG TABLET GT SCH (06:10)
[2019-02-10] MEDS: OMEPRAZOLE 20 MG CAPSULE.DR GT SCH (06:10)
[2019-02-10] MEDS: METOCLOPRAMIDE HCL 10 MG/10 ML UDC GT SCH ×5 (06:10→23:54)
[2019-02-10] MEDS: GLUCERNA 1.2 1,000 ML BOTTLE GT PRN (06:38)
[2019-02-10 07:32] VITALS: BP 113/61
[2019-02-10] MEDS: PROSTAT (PYXIS) 30 ML UDC GT SCH ×3 (08:22→16:34)
[2019-02-10] MEDS: CHLORHEXIDINE GLUCONATE 15 ML UDC MM SCH ×2 (08:22→20:02)
[2019-02-10] MEDS: MULTIVIT W/MINERALS 1 TAB TABLET GT SCH (08:22)
[2019-02-10] MEDS: ACETAMINOPHEN 650 MG/20.3 ML UDC GT SCH ×2 (08:22→20:02)
[2019-02-10] MEDS: ACIDOPHILUS/BULGARICUS 1 EACH TAB.CHEW GT SCH ×2 (08:22→16:33)
[2019-02-10] MEDS: CARBOXYMETHYLCELLULOSE SODIUM 0.4 ML DROPERETTE EACHEYE SCH (08:22)
[2019-02-10] MEDS: COD LIVER OIL/ZINC OXIDE 120 GM TUBE TP SCH ×2 (08:22→20:02)
[2019-02-10] MEDS: LEVETIRACETAM SOL (5 ML) 100 MG/ML UDC GT SCH ×2 (08:22→20:01)
[2019-02-10] MEDS: ZINC SULFATE 220 MG CAPSULE GT SCH (08:22)
[2019-02-10] MEDS: ASCORBIC ACID 500 MG TABLET GT SCH (08:22)
[2019-02-10] MEDS: Z GUARD REMEDY 2 OZ OINT TP SCH ×2 (08:23→20:02)
[2019-02-10] MEDS: NYSTATIN/TRIAMCIN CREAM 15 GM TUBE TP SCH ×2 (08:23→20:02)
[2019-02-10] MEDS: THERAHONEY GEL 1.5 OZ TUBE TP SCH ×2 (08:23→20:02)
[2019-02-10] MEDS: HYDROGEN PEROXIDE 480 ML BOTTLE TP SCH ×2 (09:00→21:35)
[2019-02-10 20:28] VITALS: BP 119/63
[2019-02-11] MEDS: ALBUTEROL FS 2.5 MG/3 ML VIAL.NEB NEB SCH ×4 (01:23→20:17)
[2019-02-11] MEDS: IPRATROPIUM NEB FS 0.5 MG/2.5 ML AMPUL.NEB IH SCH ×4 (01:23→20:17)
[2019-02-11] MEDS: METOCLOPRAMIDE HCL 10 MG/10 ML UDC GT SCH ×3 (05:15→17:02)
[2019-02-11] MEDS: OMEPRAZOLE 20 MG CAPSULE.DR GT SCH (05:15)
[2019-02-11] MEDS: LEVOTHYROXINE SODIUM 88 MCG TABLET GT SCH (05:15)
[2019-02-11] MEDS: GLUCERNA 1.2 1,000 ML BOTTLE GT PRN (05:15)
--- NOTE | 2019-02-11 05:32 | NUR ---
RT Patient was received on 28% cool aerosol.Trach is patent and secured. Patient stable throughout the shift.Will continue to monitor. Addendum: 02/11/19 at 0533 by DAKSHA SHARP RT Amended: Links added.
[2019-02-11 07:42] VITALS: BP 113/75
[2019-02-11] MEDS: HYDROGEN PEROXIDE 480 ML BOTTLE TP SCH ×2 (09:00→20:17)
[2019-02-11] MEDS: CARBOXYMETHYLCELLULOSE SODIUM 0.4 ML DROPERETTE EACHEYE SCH (09:27)
[2019-02-11] MEDS: MULTIVIT W/MINERALS 1 TAB TABLET GT SCH (09:28)
[2019-02-11] MEDS: PROSTAT (PYXIS) 30 ML UDC GT SCH ×3 (09:28→17:02)
[2019-02-11] MEDS: ACIDOPHILUS/BULGARICUS 1 EACH TAB.CHEW GT SCH ×2 (09:28→17:01)
[2019-02-11] MEDS: LEVETIRACETAM SOL (5 ML) 100 MG/ML UDC GT SCH ×2 (09:28→20:21)
[2019-02-11] MEDS: ACETAMINOPHEN 650 MG/20.3 ML UDC GT SCH ×2 (09:29→20:21)
[2019-02-11] MEDS: ASCORBIC ACID 500 MG TABLET GT SCH (09:29)
[2019-02-11] MEDS: CHLORHEXIDINE GLUCONATE 15 ML UDC MM SCH ×2 (09:30→20:21)
[2019-02-11] MEDS: ZINC SULFATE 220 MG CAPSULE GT SCH (09:30)
[2019-02-11] MEDS: NYSTATIN/TRIAMCIN CREAM 15 GM TUBE TP SCH ×2 (10:00→20:22)
[2019-02-11] MEDS: THERAHONEY GEL 1.5 OZ TUBE TP SCH ×2 (10:00→20:22)
[2019-02-11] MEDS: COD LIVER OIL/ZINC OXIDE 120 GM TUBE TP SCH ×2 (10:00→20:22)
[2019-02-11] MEDS: Z GUARD REMEDY 2 OZ OINT TP SCH ×2 (10:00→20:22)
[2019-02-11 20:20] VITALS: BP 112/58
[2019-02-12] MEDS: METOCLOPRAMIDE HCL 10 MG/10 ML UDC GT SCH ×4 (00:01→17:28)
[2019-02-12] MEDS: IPRATROPIUM NEB FS 0.5 MG/2.5 ML AMPUL.NEB IH SCH ×4 (01:57→19:39)
[2019-02-12] MEDS: ALBUTEROL FS 2.5 MG/3 ML VIAL.NEB NEB SCH ×4 (01:57→19:40)
[2019-02-12] MEDS: GLUCERNA 1.2 1,000 ML BOTTLE GT PRN (04:19)
[2019-02-12] MEDS: LEVOTHYROXINE SODIUM 88 MCG TABLET GT SCH (05:07)
[2019-02-12] MEDS: OMEPRAZOLE 20 MG CAPSULE.DR GT SCH (05:07)
[2019-02-12 08:24] VITALS: BP 118/71
[2019-02-12] MEDS: MULTIVIT W/MINERALS 1 TAB TABLET GT SCH (09:00)
[2019-02-12] MEDS: LEVETIRACETAM SOL (5 ML) 100 MG/ML UDC GT SCH ×2 (09:00→20:14)
[2019-02-12] MEDS: CARBOXYMETHYLCELLULOSE SODIUM 0.4 ML DROPERETTE EACHEYE SCH (09:00)
[2019-02-12] MEDS: ASCORBIC ACID 500 MG TABLET GT SCH (09:00)
[2019-02-12] MEDS: ZINC SULFATE 220 MG CAPSULE GT SCH (09:00)
[2019-02-12] MEDS: PROSTAT (PYXIS) 30 ML UDC GT SCH ×3 (09:00→17:28)
[2019-02-12] MEDS: ACIDOPHILUS/BULGARICUS 1 EACH TAB.CHEW GT SCH ×2 (09:00→17:28)
[2019-02-12] MEDS: CHLORHEXIDINE GLUCONATE 15 ML UDC MM SCH ×2 (09:45→20:15)
[2019-02-12] MEDS: ACETAMINOPHEN 650 MG/20.3 ML UDC GT SCH ×2 (09:45→20:14)
[2019-02-12] MEDS: HYDROGEN PEROXIDE 480 ML BOTTLE TP SCH ×2 (10:00→21:09)
[2019-02-12] MEDS: Z GUARD REMEDY 2 OZ OINT TP SCH (11:00)
[2019-02-12] MEDS: COD LIVER OIL/ZINC OXIDE 120 GM TUBE TP SCH ×2 (11:00→20:15)
[2019-02-12] MEDS: THERAHONEY GEL 1.5 OZ TUBE TP SCH ×2 (11:00→20:15)
[2019-02-12] MEDS: NYSTATIN/TRIAMCIN CREAM 15 GM TUBE TP SCH ×2 (11:00→20:15)
[2019-02-12 20:40] VITALS: BP 115/59
--- NOTE | 2019-02-12 21:05 | NUR ---
RT NOTE PT RECEIVED TRACHED ON COOL AEROSOL @ 28%. AMBU BAG/BACK UP TRACH @ BEDSIDE. TX GIVEN, NO ADVERSE REACTIONS NOTED. SX DONE, TRACH SECURED AND PATENT. WATER LEVEL GOOD. WILL MONITOR T/O SHIFT. Addendum: 02/12/19 at 2108 by LETITIA BENITES RT Amended: Links added.
[2019-02-13] MEDS: METOCLOPRAMIDE HCL 10 MG/10 ML UDC GT SCH ×5 (00:09→23:40)
[2019-02-13] MEDS: IPRATROPIUM NEB FS 0.5 MG/2.5 ML AMPUL.NEB IH SCH ×4 (01:43→19:58)
[2019-02-13] MEDS: ALBUTEROL FS 2.5 MG/3 ML VIAL.NEB NEB SCH ×4 (01:43→19:58)
[2019-02-13] MEDS: GLUCERNA 1.2 1,000 ML BOTTLE GT PRN (04:19)
[2019-02-13] MEDS: OMEPRAZOLE 20 MG CAPSULE.DR GT SCH (06:14)
[2019-02-13] MEDS: LEVOTHYROXINE SODIUM 88 MCG TABLET GT SCH (06:14)
--- NOTE | 2019-02-13 06:30 | NUR ---
RN NOTES Noted pt with open skin to left buttocks. Received new order from Dr. Ross, noted and carried out.
[2019-02-13 07:28] VITALS: BP 102/57
--- NOTE | 2019-02-13 07:54 | NUR ---
RT NOTE PT REC'D TRACHED ON COOL AEROSOL @ 28%. AMBU BAG/BACK UP TRACH @ BEDSIDE. TX GIVEN, NO ADVERSE REACTIONS NOTED. SX DONE, TRACH SECURED AND PATENT. WATER LEVEL GOOD. WILL MONITOR. Addendum: 02/13/19 at 0755 by MATT REHMAN RT Amended: Links added.
[2019-02-13] MEDS: HYDROGEN PEROXIDE 480 ML BOTTLE TP SCH ×2 (08:10→20:36)
[2019-02-13] MEDS: LEVETIRACETAM SOL (5 ML) 100 MG/ML UDC GT SCH ×2 (09:12→20:32)
[2019-02-13] MEDS: ACIDOPHILUS/BULGARICUS 1 EACH TAB.CHEW GT SCH ×2 (09:12→17:05)
[2019-02-13] MEDS: CARBOXYMETHYLCELLULOSE SODIUM 0.4 ML DROPERETTE EACHEYE SCH (09:12)
[2019-02-13] MEDS: MULTIVIT W/MINERALS 1 TAB TABLET GT SCH (09:13)
[2019-02-13] MEDS: PROSTAT (PYXIS) 30 ML UDC GT SCH ×3 (09:13→17:05)
[2019-02-13] MEDS: CHLORHEXIDINE GLUCONATE 15 ML UDC MM SCH ×2 (09:13→21:09)
[2019-02-13] MEDS: ACETAMINOPHEN 650 MG/20.3 ML UDC GT SCH ×2 (09:13→20:32)
[2019-02-13] MEDS: ZINC SULFATE 220 MG CAPSULE GT SCH (09:13)
[2019-02-13] MEDS: ASCORBIC ACID 500 MG TABLET GT SCH (09:13)
[2019-02-13] MEDS: COD LIVER OIL/ZINC OXIDE 120 GM TUBE TP SCH ×2 (09:45→21:09)
[2019-02-13] MEDS: NYSTATIN/TRIAMCIN CREAM 15 GM TUBE TP SCH ×2 (09:45→21:09)
[2019-02-13] MEDS: THERAHONEY GEL 1.5 OZ TUBE TP SCH ×2 (09:45→21:09)
--- NOTE | 2019-02-13 16:09 | NUR ---
Dr. Teresa completed dental exam. 's progress note was filed in pt.'s chart.
--- NOTE | 2019-02-13 16:14 | NUR ---
JOSSE received a call from pt.s responsible republican, Reyna Josie [phone] stating that she would like to come to [facility] on 02/18/19 to discuss payment plans to begin repayment of SOC owed to [facility]. JOSSE acknowledged Reyna for taking appropriate measures to rectify the situation. JOSSE informed Reyna that she would have to discuss SOC payment plans with the business office. Reyna declined being transferred to the business office. JOSSE provided Reyna with Tamela Mayo extension at the business office. Reyna was agreeable to plan and will meet with them on 02/18/19 around 12 noon. JOSSE contacted Tamela Mayo to notify her that Reyna Lernerzie [phone] will be in on 02/18/19 around 12 noon to discuss payment plans. Tamela was agreeable to plan.
[2019-02-13 19:45] VITALS: BP 123/74
--- NOTE | 2019-02-13 20:52 | NUR ---
PT RCVD TRACH'D ON COOL AEROSOL WITH CHARTED SETTINGS. PT NOLVIA TX WELL. SX DONE. PT TRACH IS PATENT AND SECURE. AMBU BAG AT BEDSIDE. NO SOB NOTED. Addendum: 02/13/19 at 2051 by ALEXEY MADRID RT Amended: Links added.
[2019-02-13] MEDS: NEOMY SULF/BACITRAC ZN/POLY 15 GM TUBE TP SCH (21:09)
[2019-02-14] MEDS: ALBUTEROL FS 2.5 MG/3 ML VIAL.NEB NEB SCH ×4 (00:45→20:15)
[2019-02-14] MEDS: IPRATROPIUM NEB FS 0.5 MG/2.5 ML AMPUL.NEB IH SCH ×4 (00:45→20:15)
[2019-02-14] MEDS: OMEPRAZOLE 20 MG CAPSULE.DR GT SCH (05:31)
[2019-02-14] MEDS: GLUCERNA 1.2 1,000 ML BOTTLE GT PRN (05:31)
[2019-02-14] MEDS: LEVOTHYROXINE SODIUM 88 MCG TABLET GT SCH (05:31)
[2019-02-14] MEDS: METOCLOPRAMIDE HCL 10 MG/10 ML UDC GT SCH ×3 (05:31→17:33)
[2019-02-14 07:41] VITALS: BP 117/61
[2019-02-14] MEDS: HYDROGEN PEROXIDE 480 ML BOTTLE TP SCH ×2 (09:00→20:16)
[2019-02-14] MEDS: ZINC SULFATE 220 MG CAPSULE GT SCH (09:35)
[2019-02-14] MEDS: CARBOXYMETHYLCELLULOSE SODIUM 0.4 ML DROPERETTE EACHEYE SCH (09:35)
[2019-02-14] MEDS: ACIDOPHILUS/BULGARICUS 1 EACH TAB.CHEW GT SCH ×2 (09:35→17:33)
[2019-02-14] MEDS: MULTIVIT W/MINERALS 1 TAB TABLET GT SCH (09:35)
[2019-02-14] MEDS: PROSTAT (PYXIS) 30 ML UDC GT SCH ×3 (09:35→17:33)
[2019-02-14] MEDS: ACETAMINOPHEN 650 MG/20.3 ML UDC GT SCH ×2 (09:35→21:53)
[2019-02-14] MEDS: ASCORBIC ACID 500 MG TABLET GT SCH (09:35)
[2019-02-14] MEDS: LEVETIRACETAM SOL (5 ML) 100 MG/ML UDC GT SCH ×2 (09:35→21:53)
[2019-02-14] MEDS: LOPERAMIDE HCL UDC(2 MG/10 ML) 2 MG/10 ML UDC GT PRN (09:35)
[2019-02-14] MEDS: CHLORHEXIDINE GLUCONATE 15 ML UDC MM SCH ×2 (09:36→21:53)
[2019-02-14] MEDS: NEOMY SULF/BACITRAC ZN/POLY 15 GM TUBE TP SCH (10:30)
[2019-02-14] MEDS: COD LIVER OIL/ZINC OXIDE 120 GM TUBE TP SCH ×2 (10:30→21:53)
[2019-02-14] MEDS: THERAHONEY GEL 1.5 OZ TUBE TP SCH ×2 (10:30→21:53)
[2019-02-14] MEDS: NYSTATIN/TRIAMCIN CREAM 15 GM TUBE TP SCH ×2 (10:30→21:53)
--- NOTE | 2019-02-14 11:20 | NUR ---
Karlene Clark examined resident sacral p.u. and left buttock open skin with new verbal treatment order, Apply xeroform to left buttock and cover with Mepilex, carried out.
--- NOTE | 2019-02-14 11:22 | NUR ---
JOSSE left voicemail for pt.'s responsible libertarian, informing them of the Family Support Group on 02/20/19, IDT meeting 02/22/19 and informing them that they can contact JOSSE to get details about pt.'s dental exam and cleaning on 02/13/19. JOSSE left call back number.
[2019-02-14 19:26] VITALS: BP 156/76
--- NOTE | 2019-02-14 20:16 | NUR ---
Seen and examined by TERESA Smith no new orders.
[2019-02-15] MEDS: METOCLOPRAMIDE HCL 10 MG/10 ML UDC GT SCH ×5 (00:13→23:31)
[2019-02-15] MEDS: GLUCERNA 1.2 1,000 ML BOTTLE GT PRN ×2 (00:21→20:24)
[2019-02-15] MEDS: ALBUTEROL FS 2.5 MG/3 ML VIAL.NEB NEB SCH ×4 (01:28→20:03)
[2019-02-15] MEDS: IPRATROPIUM NEB FS 0.5 MG/2.5 ML AMPUL.NEB IH SCH ×4 (01:28→20:03)
[2019-02-15] MEDS: OMEPRAZOLE 20 MG CAPSULE.DR GT SCH (05:22)
[2019-02-15] MEDS: LEVOTHYROXINE SODIUM 88 MCG TABLET GT SCH (05:22)
[2019-02-15 07:50] VITALS: BP 134/71
[2019-02-15] MEDS: HYDROGEN PEROXIDE 480 ML BOTTLE TP SCH ×2 (09:11→21:00)
[2019-02-15] MEDS: ZINC SULFATE 220 MG CAPSULE GT SCH (09:37)
[2019-02-15] MEDS: MULTIVIT W/MINERALS 1 TAB TABLET GT SCH (09:37)
[2019-02-15] MEDS: CARBOXYMETHYLCELLULOSE SODIUM 0.4 ML DROPERETTE EACHEYE SCH (09:37)
[2019-02-15] MEDS: ACIDOPHILUS/BULGARICUS 1 EACH TAB.CHEW GT SCH ×2 (09:37→17:04)
[2019-02-15] MEDS: ACETAMINOPHEN 650 MG/20.3 ML UDC GT SCH ×2 (09:37→20:17)
[2019-02-15] MEDS: LEVETIRACETAM SOL (5 ML) 100 MG/ML UDC GT SCH ×2 (09:37→20:17)
[2019-02-15] MEDS: ASCORBIC ACID 500 MG TABLET GT SCH (09:37)
[2019-02-15] MEDS: PROSTAT (PYXIS) 30 ML UDC GT SCH ×3 (09:37→17:04)
[2019-02-15] MEDS: THERAHONEY GEL 1.5 OZ TUBE TP SCH ×2 (10:15→21:00)
[2019-02-15] MEDS: COD LIVER OIL/ZINC OXIDE 120 GM TUBE TP SCH ×2 (10:15→20:59)
[2019-02-15] MEDS: CHLORHEXIDINE GLUCONATE 15 ML UDC MM SCH ×2 (10:15→20:17)
[2019-02-15] MEDS: NYSTATIN/TRIAMCIN CREAM 15 GM TUBE TP SCH ×2 (10:15→20:59)
--- NOTE | 2019-02-15 17:16 | NUR ---
RT Patient was received on 28% cool aerosol.Patient stable throughout the shift. Trach is patent and secured.Will continue to monitor. Addendum: 02/15/19 at 1717 by DAKSHA SHARP RT Amended: Links added.
[2019-02-15 20:58] VITALS: BP 101/56
[2019-02-16] MEDS: ALBUTEROL FS 2.5 MG/3 ML VIAL.NEB NEB SCH ×4 (00:53→19:59)
[2019-02-16] MEDS: IPRATROPIUM NEB FS 0.5 MG/2.5 ML AMPUL.NEB IH SCH ×4 (00:53→19:59)
[2019-02-16] MEDS: LEVOTHYROXINE SODIUM 88 MCG TABLET GT SCH (05:35)
[2019-02-16] MEDS: OMEPRAZOLE 20 MG CAPSULE.DR GT SCH (05:35)
[2019-02-16] MEDS: METOCLOPRAMIDE HCL 10 MG/10 ML UDC GT SCH ×4 (05:35→23:56)
[2019-02-16] MEDS: CARBOXYMETHYLCELLULOSE SODIUM 0.4 ML DROPERETTE EACHEYE SCH (08:24)
[2019-02-16] MEDS: ACIDOPHILUS/BULGARICUS 1 EACH TAB.CHEW GT SCH ×2 (08:25→17:28)
[2019-02-16] MEDS: ACETAMINOPHEN 650 MG/20.3 ML UDC GT SCH ×2 (08:25→20:58)
[2019-02-16] MEDS: LEVETIRACETAM SOL (5 ML) 100 MG/ML UDC GT SCH ×2 (08:25→20:58)
[2019-02-16] MEDS: MULTIVIT W/MINERALS 1 TAB TABLET GT SCH (08:25)
[2019-02-16] MEDS: ZINC SULFATE 220 MG CAPSULE GT SCH (08:25)
[2019-02-16] MEDS: PROSTAT (PYXIS) 30 ML UDC GT SCH ×3 (08:25→17:28)
[2019-02-16] MEDS: ASCORBIC ACID 500 MG TABLET GT SCH (08:25)
[2019-02-16] MEDS: CHLORHEXIDINE GLUCONATE 15 ML UDC MM SCH ×2 (09:00→20:58)
[2019-02-16] MEDS: COD LIVER OIL/ZINC OXIDE 120 GM TUBE TP SCH ×2 (09:00→21:29)
[2019-02-16] MEDS: NYSTATIN/TRIAMCIN CREAM 15 GM TUBE TP SCH ×2 (09:00→21:29)
[2019-02-16] MEDS: THERAHONEY GEL 1.5 OZ TUBE TP SCH ×2 (09:00→21:29)
[2019-02-16] MEDS: HYDROGEN PEROXIDE 480 ML BOTTLE TP SCH ×2 (09:55→21:00)
[2019-02-16 13:27] VITALS: BP 100/111
[2019-02-16] MEDS: GLUCERNA 1.2 1,000 ML BOTTLE GT PRN (19:30)
[2019-02-16 20:23] VITALS: BP 109/57
[2019-02-17] MEDS: IPRATROPIUM NEB FS 0.5 MG/2.5 ML AMPUL.NEB IH SCH ×4 (01:18→19:44)
[2019-02-17] MEDS: ALBUTEROL FS 2.5 MG/3 ML VIAL.NEB NEB SCH ×4 (01:18→19:44)
[2019-02-17] MEDS: OMEPRAZOLE 20 MG CAPSULE.DR GT SCH (05:14)
[2019-02-17] MEDS: METOCLOPRAMIDE HCL 10 MG/10 ML UDC GT SCH ×3 (05:14→17:57)
[2019-02-17] MEDS: LEVOTHYROXINE SODIUM 88 MCG TABLET GT SCH (05:14)
[2019-02-17 07:24] VITALS: BP 115/57
[2019-02-17] MEDS: ZINC SULFATE 220 MG CAPSULE GT SCH (08:45)
[2019-02-17] MEDS: ASCORBIC ACID 500 MG TABLET GT SCH (08:45)
[2019-02-17] MEDS: ACIDOPHILUS/BULGARICUS 1 EACH TAB.CHEW GT SCH ×2 (08:45→17:57)
[2019-02-17] MEDS: PROSTAT (PYXIS) 30 ML UDC GT SCH ×3 (08:45→17:57)
[2019-02-17] MEDS: LEVETIRACETAM SOL (5 ML) 100 MG/ML UDC GT SCH ×2 (08:45→20:05)
[2019-02-17] MEDS: ACETAMINOPHEN 650 MG/20.3 ML UDC GT SCH ×2 (08:45→20:06)
[2019-02-17] MEDS: MULTIVIT W/MINERALS 1 TAB TABLET GT SCH (08:45)
[2019-02-17] MEDS: CARBOXYMETHYLCELLULOSE SODIUM 0.4 ML DROPERETTE EACHEYE SCH (08:45)
[2019-02-17] MEDS: THERAHONEY GEL 1.5 OZ TUBE TP SCH ×2 (09:30→20:06)
[2019-02-17] MEDS: COD LIVER OIL/ZINC OXIDE 120 GM TUBE TP SCH ×2 (09:30→20:06)
[2019-02-17] MEDS: NYSTATIN/TRIAMCIN CREAM 15 GM TUBE TP SCH ×2 (09:30→20:06)
[2019-02-17] MEDS: CHLORHEXIDINE GLUCONATE 15 ML UDC MM SCH ×2 (09:30→20:06)
[2019-02-17] MEDS: HYDROGEN PEROXIDE 480 ML BOTTLE TP SCH ×2 (09:46→21:53)
[2019-02-17] MEDS: GLUCERNA 1.2 1,000 ML BOTTLE GT PRN (18:08)
[2019-02-17 22:35] VITALS: BP 115/67
[2019-02-18] MEDS: METOCLOPRAMIDE HCL 10 MG/10 ML UDC GT SCH ×4 (00:11→17:53)
[2019-02-18] MEDS: IPRATROPIUM NEB FS 0.5 MG/2.5 ML AMPUL.NEB IH SCH ×4 (01:46→19:46)
[2019-02-18] MEDS: ALBUTEROL FS 2.5 MG/3 ML VIAL.NEB NEB SCH ×4 (01:46→19:46)
[2019-02-18] MEDS: OMEPRAZOLE 20 MG CAPSULE.DR GT SCH (05:44)
[2019-02-18] MEDS: LEVOTHYROXINE SODIUM 88 MCG TABLET GT SCH (05:49)
[2019-02-18 07:40] VITALS: BP 125/69
[2019-02-18] MEDS: HYDROGEN PEROXIDE 480 ML BOTTLE TP SCH ×2 (09:00→19:46)
[2019-02-18] MEDS: CARBOXYMETHYLCELLULOSE SODIUM 0.4 ML DROPERETTE EACHEYE SCH (09:20)
[2019-02-18] MEDS: LEVETIRACETAM SOL (5 ML) 100 MG/ML UDC GT SCH ×2 (09:20→20:03)
[2019-02-18] MEDS: NYSTATIN/TRIAMCIN CREAM 15 GM TUBE TP SCH ×2 (09:21→20:04)
[2019-02-18] MEDS: ACIDOPHILUS/BULGARICUS 1 EACH TAB.CHEW GT SCH ×2 (09:21→17:53)
[2019-02-18] MEDS: CHLORHEXIDINE GLUCONATE 15 ML UDC MM SCH ×2 (09:21→20:04)
[2019-02-18] MEDS: COD LIVER OIL/ZINC OXIDE 120 GM TUBE TP SCH ×2 (09:21→20:04)
[2019-02-18] MEDS: MULTIVIT W/MINERALS 1 TAB TABLET GT SCH (09:21)
[2019-02-18] MEDS: THERAHONEY GEL 1.5 OZ TUBE TP SCH ×2 (09:21→20:04)
[2019-02-18] MEDS: ASCORBIC ACID 500 MG TABLET GT SCH (09:21)
[2019-02-18] MEDS: ZINC SULFATE 220 MG CAPSULE GT SCH (09:21)
[2019-02-18] MEDS: PROSTAT (PYXIS) 30 ML UDC GT SCH ×3 (09:21→17:53)
[2019-02-18] MEDS: ACETAMINOPHEN 650 MG/20.3 ML UDC GT SCH (09:21)
[2019-02-18] MEDS: GLUCERNA 1.2 1,000 ML BOTTLE GT PRN (16:53)
--- NOTE | 2019-02-18 19:56 | NUR ---
RT NOTE: RECEIVED TRACH PT ON COOL AEROSOL. AMBU BAG @ BEDSIDE. Q6 BREATHING TX GIVEN PER MD ORDERS WITH NO ADVERSE REACTION NOTED. SX DONE PRN. TRACH PATENT AND SECURED. TRACH CARE DONE. NO RESP DISTRESS NOTED AT THIS TIME. WILL CONTINUE TO MONITOR PT Addendum: 02/19/19 at 0336 by RACHEL AVALOS RT Amended: Links added.
[2019-02-18 20:54] VITALS: BP 119/66
[2019-02-18] MEDS ORDERED: ACETAMINOPHEN 650 MG/20 ML UDC- SA PATIENTS-FEVER ONLY GT SCH (21:00)
[2019-02-19] MEDS: METOCLOPRAMIDE HCL 10 MG/10 ML UDC GT SCH ×4 (00:06→18:32)
[2019-02-19] MEDS: ALBUTEROL FS 2.5 MG/3 ML VIAL.NEB NEB SCH ×4 (01:58→19:51)
[2019-02-19] MEDS: IPRATROPIUM NEB FS 0.5 MG/2.5 ML AMPUL.NEB IH SCH ×4 (01:58→19:51)
[2019-02-19] MEDS: OMEPRAZOLE 20 MG CAPSULE.DR GT SCH (05:15)
[2019-02-19] MEDS: LEVOTHYROXINE SODIUM 88 MCG TABLET GT SCH (05:15)
[2019-02-19 08:00] VITALS: BP 123/73
[2019-02-19] MEDS: ACIDOPHILUS/BULGARICUS 1 EACH TAB.CHEW GT SCH ×2 (08:17→16:30)
[2019-02-19] MEDS: CARBOXYMETHYLCELLULOSE SODIUM 0.4 ML DROPERETTE EACHEYE SCH (08:17)
[2019-02-19] MEDS: LEVETIRACETAM SOL (5 ML) 100 MG/ML UDC GT SCH ×2 (08:17→21:00)
[2019-02-19] MEDS: MULTIVIT W/MINERALS 1 TAB TABLET GT SCH (08:17)
[2019-02-19] MEDS: PROSTAT (PYXIS) 30 ML UDC GT SCH ×3 (08:17→16:30)
[2019-02-19] MEDS: ASCORBIC ACID 500 MG TABLET GT SCH (08:18)
[2019-02-19] MEDS: ZINC SULFATE 220 MG CAPSULE GT SCH (08:18)
[2019-02-19] MEDS: CHLORHEXIDINE GLUCONATE 15 ML UDC MM SCH ×2 (08:18→21:00)
[2019-02-19] MEDS: HYDROGEN PEROXIDE 480 ML BOTTLE TP SCH ×2 (09:00→20:26)
[2019-02-19] MEDS: ACETAMINOPHEN 650 MG/20 ML UDC- SA PATIENTS-PAIN ONLY GT SCH ×2 (09:00→21:00)
[2019-02-19] MEDS: NYSTATIN/TRIAMCIN CREAM 15 GM TUBE TP SCH ×2 (09:30→21:00)
[2019-02-19] MEDS: THERAHONEY GEL 1.5 OZ TUBE TP SCH ×2 (09:30→21:00)
[2019-02-19] MEDS: COD LIVER OIL/ZINC OXIDE 120 GM TUBE TP SCH ×2 (09:30→21:00)
--- NOTE | 2019-02-19 11:57 | NUR ---
JOSSE contacted the business office and spoke to Tamela Mayo to be updated regarding the pt.s responsible republican who stated that she would come in 02/18/19 to discuss SOC with business office. Per Reyna Rapp has not come in or called the business office. Noted.
[2019-02-19] MEDS: GLUCERNA 1.2 1,000 ML BOTTLE GT PRN (16:30)
[2019-02-19 20:50] VITALS: BP 115/68
--- NOTE | 2019-02-19 21:11 | NUR ---
RT NOTE PT RECEIVED TRACHED ON COOL AEROSOL @ 28%. AMBU BAG/BACK UP TRACH @ BEDSIDE. TX GIVEN, NO ADVERSE REACTIONS NOTED. SX DONE, TRACH SECURED AND PATENT. WATER LEVEL GOOD. NO SOB NOTED. WILL MONITOR T/O SHIFT. Addendum: 02/19/19 at 2112 by LETITIA BENITES RT Amended: Links added.
[2019-02-20] MEDS: METOCLOPRAMIDE HCL 10 MG/10 ML UDC GT SCH ×4 (00:39→18:26)
[2019-02-20] MEDS: IPRATROPIUM NEB FS 0.5 MG/2.5 ML AMPUL.NEB IH SCH ×4 (01:50→19:54)
[2019-02-20] MEDS: ALBUTEROL FS 2.5 MG/3 ML VIAL.NEB NEB SCH ×4 (01:50→19:54)
[2019-02-20] MEDS: LEVOTHYROXINE SODIUM 88 MCG TABLET GT SCH (06:45)
[2019-02-20] MEDS: OMEPRAZOLE 20 MG CAPSULE.DR GT SCH (06:45)
[2019-02-20 07:43] VITALS: BP 112/51
[2019-02-20] MEDS: ZINC SULFATE 220 MG CAPSULE GT SCH (08:34)
[2019-02-20] MEDS: ASCORBIC ACID 500 MG TABLET GT SCH (08:34)
[2019-02-20] MEDS: ACIDOPHILUS/BULGARICUS 1 EACH TAB.CHEW GT SCH ×2 (08:34→16:28)
[2019-02-20] MEDS: CARBOXYMETHYLCELLULOSE SODIUM 0.4 ML DROPERETTE EACHEYE SCH (08:34)
[2019-02-20] MEDS: MULTIVIT W/MINERALS 1 TAB TABLET GT SCH (08:34)
[2019-02-20] MEDS: PROSTAT (PYXIS) 30 ML UDC GT SCH ×3 (08:34→16:28)
[2019-02-20] MEDS: CHLORHEXIDINE GLUCONATE 15 ML UDC MM SCH ×2 (08:34→21:22)
[2019-02-20] MEDS: LEVETIRACETAM SOL (5 ML) 100 MG/ML UDC GT SCH ×2 (08:34→21:22)
[2019-02-20] MEDS: ACETAMINOPHEN 650 MG/20 ML UDC- SA PATIENTS-PAIN ONLY GT SCH ×2 (08:34→21:22)
[2019-02-20] MEDS: HYDROGEN PEROXIDE 480 ML BOTTLE TP SCH ×2 (09:00→21:06)
[2019-02-20] MEDS: THERAHONEY GEL 1.5 OZ TUBE TP SCH ×2 (09:10→21:22)
[2019-02-20] MEDS: COD LIVER OIL/ZINC OXIDE 120 GM TUBE TP SCH ×2 (09:10→21:22)
[2019-02-20] MEDS: NYSTATIN/TRIAMCIN CREAM 15 GM TUBE TP SCH ×2 (09:10→21:22)
--- NOTE | 2019-02-20 13:17 | NUR ---
The pt.'s family was not able to attend this month's Family Support Group.
[2019-02-20] MEDS: GLUCERNA 1.2 1,000 ML BOTTLE GT PRN (15:20)
[2019-02-20 20:31] VITALS: BP 126/68
--- NOTE | 2019-02-20 21:15 | NUR ---
PT RECEIVE STABLE ON CA 28%, TRACH PATENT AND SECURED, YULISSA GREEN AND RUI BAG IS AT BEDSIDE Addendum: 02/20/19 at 2116 by ABIEL DERAS RT Amended: Links added.
[2019-02-21] MEDS: METOCLOPRAMIDE HCL 10 MG/10 ML UDC GT SCH ×4 (00:01→18:23)
[2019-02-21] MEDS: IPRATROPIUM NEB FS 0.5 MG/2.5 ML AMPUL.NEB IH SCH ×4 (00:58→19:59)
[2019-02-21] MEDS: ALBUTEROL FS 2.5 MG/3 ML VIAL.NEB NEB SCH ×4 (00:58→19:59)
[2019-02-21] MEDS: LEVOTHYROXINE SODIUM 88 MCG TABLET GT SCH (05:55)
[2019-02-21] MEDS: OMEPRAZOLE 20 MG CAPSULE.DR GT SCH (05:55)
[2019-02-21 07:23] VITALS: BP 110/59
[2019-02-21] MEDS: HYDROGEN PEROXIDE 480 ML BOTTLE TP SCH ×2 (09:00→19:59)
[2019-02-21] MEDS: MULTIVIT W/MINERALS 1 TAB TABLET GT SCH (09:52)
[2019-02-21] MEDS: PROSTAT (PYXIS) 30 ML UDC GT SCH ×3 (09:52→17:00)
[2019-02-21] MEDS: ACIDOPHILUS/BULGARICUS 1 EACH TAB.CHEW GT SCH ×2 (09:52→17:00)
[2019-02-21] MEDS: CARBOXYMETHYLCELLULOSE SODIUM 0.4 ML DROPERETTE EACHEYE SCH (09:52)
[2019-02-21] MEDS: LEVETIRACETAM SOL (5 ML) 100 MG/ML UDC GT SCH ×2 (09:52→21:09)
[2019-02-21] MEDS: ACETAMINOPHEN 650 MG/20 ML UDC- SA PATIENTS-PAIN ONLY GT SCH ×2 (09:53→21:10)
[2019-02-21] MEDS: ASCORBIC ACID 500 MG TABLET GT SCH (09:53)
[2019-02-21] MEDS: CHLORHEXIDINE GLUCONATE 15 ML UDC MM SCH ×2 (09:53→21:10)
[2019-02-21] MEDS: ZINC SULFATE 220 MG CAPSULE GT SCH (09:53)
[2019-02-21] MEDS: THERAHONEY GEL 1.5 OZ TUBE TP SCH ×2 (10:30→21:10)
[2019-02-21] MEDS: NYSTATIN/TRIAMCIN CREAM 15 GM TUBE TP SCH ×2 (10:30→21:10)
[2019-02-21] MEDS: COD LIVER OIL/ZINC OXIDE 120 GM TUBE TP SCH ×2 (10:30→21:10)
[2019-02-21] MEDS: GLUCERNA 1.2 1,000 ML BOTTLE GT PRN (18:23)
--- NOTE | 2019-02-21 20:11 | NUR ---
RT NOTE: RECEIVED TRACH PT ON COOL AEROSOL. AMBU BAG @ BEDSIDE. Q6 BREATHING TX GIVEN PER MD ORDERS WITH NO ADVERSE REACTION NOTED. SX DONE PRN. TRACH PATENT AND SECURED. TRACH CARE DONE. NO RESP DISTRESS NOTED AT THIS TIME. WILL CONTINUE TO MONITOR PT Addendum: 02/22/19 at 0241 by RACHEL AVALOS RT Amended: Links added.
[2019-02-21 20:33] VITALS: BP 122/59
[2019-02-22] MEDS: METOCLOPRAMIDE HCL 10 MG/10 ML UDC GT SCH ×5 (00:07→23:56)
[2019-02-22] MEDS: IPRATROPIUM NEB FS 0.5 MG/2.5 ML AMPUL.NEB IH SCH ×4 (01:39→19:33)
[2019-02-22] MEDS: ALBUTEROL FS 2.5 MG/3 ML VIAL.NEB NEB SCH ×4 (01:39→19:33)
[2019-02-22] MEDS: LEVOTHYROXINE SODIUM 88 MCG TABLET GT SCH (05:21)
[2019-02-22] MEDS: OMEPRAZOLE 20 MG CAPSULE.DR GT SCH (05:21)
[2019-02-22] MEDS: HYDROGEN PEROXIDE 480 ML BOTTLE TP SCH ×2 (07:37→21:10)
[2019-02-22 07:43] VITALS: BP 126/58
[2019-02-22] MEDS: ZINC SULFATE 220 MG CAPSULE GT SCH (09:00)
[2019-02-22] MEDS: ACIDOPHILUS/BULGARICUS 1 EACH TAB.CHEW GT SCH ×2 (09:00→17:54)
[2019-02-22] MEDS: NYSTATIN/TRIAMCIN CREAM 15 GM TUBE TP SCH ×2 (09:00→21:14)
[2019-02-22] MEDS: PROSTAT (PYXIS) 30 ML UDC GT SCH ×3 (09:00→17:54)
[2019-02-22] MEDS: MULTIVIT W/MINERALS 1 TAB TABLET GT SCH (09:00)
[2019-02-22] MEDS: ASCORBIC ACID 500 MG TABLET GT SCH (09:00)
[2019-02-22] MEDS: ACETAMINOPHEN 650 MG/20 ML UDC- SA PATIENTS-PAIN ONLY GT SCH ×2 (09:00→21:14)
[2019-02-22] MEDS: CARBOXYMETHYLCELLULOSE SODIUM 0.4 ML DROPERETTE EACHEYE SCH (09:00)
[2019-02-22] MEDS: CHLORHEXIDINE GLUCONATE 15 ML UDC MM SCH ×2 (09:00→21:14)
[2019-02-22] MEDS: LEVETIRACETAM SOL (5 ML) 100 MG/ML UDC GT SCH ×2 (09:00→21:13)
[2019-02-22] MEDS: COD LIVER OIL/ZINC OXIDE 120 GM TUBE TP SCH ×2 (09:30→21:14)
[2019-02-22] MEDS: THERAHONEY GEL 1.5 OZ TUBE TP SCH ×2 (09:30→21:14)
--- NOTE | 2019-02-22 15:47 | NUR ---
INTERDISCIPLINARY PLAN OF CARE CONFERENCE took place today. The patients responsible green party/DAUGHTER, Reyna Galindo [phone] was not able to attend or participate via phone conference. Charge nurse discussed Morphine and Ativan were discontinued. Dr. Monet and Interdisciplinary team discussed the plan of care in detail. Current orders as well as treatments and medications were reviewed. Please see other disciplines IDT notes for further details.
[2019-02-22] MEDS: GLUCERNA 1.2 1,000 ML BOTTLE GT PRN (15:58)
[2019-02-22 20:14] VITALS: BP 128/64
[2019-02-23] MEDS: ALBUTEROL FS 2.5 MG/3 ML VIAL.NEB NEB SCH ×4 (01:44→19:28)
[2019-02-23] MEDS: IPRATROPIUM NEB FS 0.5 MG/2.5 ML AMPUL.NEB IH SCH ×4 (01:44→19:28)
[2019-02-23] MEDS: OMEPRAZOLE 20 MG CAPSULE.DR GT SCH (05:56)
[2019-02-23] MEDS: LEVOTHYROXINE SODIUM 88 MCG TABLET GT SCH (05:56)
[2019-02-23] MEDS: METOCLOPRAMIDE HCL 10 MG/10 ML UDC GT SCH ×4 (05:56→23:51)
[2019-02-23 08:00] VITALS: BP 118/66
[2019-02-23] MEDS: HYDROGEN PEROXIDE 480 ML BOTTLE TP SCH ×2 (09:00→21:01)
[2019-02-23] MEDS: ACIDOPHILUS/BULGARICUS 1 EACH TAB.CHEW GT SCH ×2 (09:00→17:17)
[2019-02-23] MEDS: LEVETIRACETAM SOL (5 ML) 100 MG/ML UDC GT SCH ×2 (09:00→21:00)
[2019-02-23] MEDS: ZINC SULFATE 220 MG CAPSULE GT SCH (09:00)
[2019-02-23] MEDS: CHLORHEXIDINE GLUCONATE 15 ML UDC MM SCH ×2 (09:00→21:00)
[2019-02-23] MEDS: PROSTAT (PYXIS) 30 ML UDC GT SCH ×3 (09:00→17:17)
[2019-02-23] MEDS: CARBOXYMETHYLCELLULOSE SODIUM 0.4 ML DROPERETTE EACHEYE SCH (09:00)
[2019-02-23] MEDS: ASCORBIC ACID 500 MG TABLET GT SCH (09:00)
[2019-02-23] MEDS: MULTIVIT W/MINERALS 1 TAB TABLET GT SCH (09:00)
[2019-02-23] MEDS: ACETAMINOPHEN 650 MG/20 ML UDC- SA PATIENTS-PAIN ONLY GT SCH ×2 (10:20→21:00)
[2019-02-23] MEDS: COD LIVER OIL/ZINC OXIDE 120 GM TUBE TP SCH ×2 (10:50→21:00)
[2019-02-23] MEDS: THERAHONEY GEL 1.5 OZ TUBE TP SCH ×2 (10:50→21:00)
[2019-02-23] MEDS: NYSTATIN/TRIAMCIN CREAM 15 GM TUBE TP SCH ×2 (10:50→21:00)
[2019-02-23] MEDS: GLUCERNA 1.2 1,000 ML BOTTLE GT PRN (17:17)
[2019-02-23 19:42] VITALS: BP 121/67
[2019-02-24] MEDS: IPRATROPIUM NEB FS 0.5 MG/2.5 ML AMPUL.NEB IH SCH ×4 (01:25→19:50)
[2019-02-24] MEDS: ALBUTEROL FS 2.5 MG/3 ML VIAL.NEB NEB SCH ×4 (01:26→19:50)
[2019-02-24] MEDS: OMEPRAZOLE 20 MG CAPSULE.DR GT SCH (05:57)
[2019-02-24] MEDS: METOCLOPRAMIDE HCL 10 MG/10 ML UDC GT SCH ×4 (05:57→23:30)
[2019-02-24] MEDS: LEVOTHYROXINE SODIUM 88 MCG TABLET GT SCH (05:57)
[2019-02-24 07:41] VITALS: BP 109/60
[2019-02-24] MEDS: CARBOXYMETHYLCELLULOSE SODIUM 0.4 ML DROPERETTE EACHEYE SCH (08:00)
[2019-02-24] MEDS: LEVETIRACETAM SOL (5 ML) 100 MG/ML UDC GT SCH ×2 (08:01→20:00)
[2019-02-24] MEDS: ACIDOPHILUS/BULGARICUS 1 EACH TAB.CHEW GT SCH ×2 (08:02→16:00)
[2019-02-24] MEDS: PROSTAT (PYXIS) 30 ML UDC GT SCH ×3 (08:02→16:00)
[2019-02-24] MEDS: ACETAMINOPHEN 650 MG/20 ML UDC- SA PATIENTS-PAIN ONLY GT SCH ×2 (08:03→20:01)
[2019-02-24] MEDS: ASCORBIC ACID 500 MG TABLET GT SCH (08:03)
[2019-02-24] MEDS: THERAHONEY GEL 1.5 OZ TUBE TP SCH ×2 (08:04→20:02)
[2019-02-24] MEDS: CHLORHEXIDINE GLUCONATE 15 ML UDC MM SCH ×2 (08:04→20:02)
[2019-02-24] MEDS: COD LIVER OIL/ZINC OXIDE 120 GM TUBE TP SCH ×2 (08:04→20:02)
[2019-02-24] MEDS: HYDROGEN PEROXIDE 480 ML BOTTLE TP SCH ×2 (08:04→20:02)
[2019-02-24] MEDS: ZINC SULFATE 220 MG CAPSULE GT SCH (08:04)
[2019-02-24] MEDS: NYSTATIN/TRIAMCIN CREAM 15 GM TUBE TP SCH ×2 (08:04→20:02)
[2019-02-24] MEDS: MULTIVIT W/MINERALS 1 TAB TABLET GT SCH (08:09)
[2019-02-24 19:49] VITALS: BP 136/77
[2019-02-25] MEDS: IPRATROPIUM NEB FS 0.5 MG/2.5 ML AMPUL.NEB IH SCH ×4 (00:48→19:55)
[2019-02-25] MEDS: ALBUTEROL FS 2.5 MG/3 ML VIAL.NEB NEB SCH ×4 (00:48→19:55)
[2019-02-25] MEDS: LEVOTHYROXINE SODIUM 88 MCG TABLET GT SCH (05:12)
[2019-02-25] MEDS: METOCLOPRAMIDE HCL 10 MG/10 ML UDC GT SCH ×3 (05:12→17:22)
[2019-02-25] MEDS: OMEPRAZOLE 20 MG CAPSULE.DR GT SCH (05:12)
[2019-02-25] MEDS: GLUCERNA 1.2 1,000 ML BOTTLE GT PRN (05:16)
[2019-02-25 08:00] VITALS: BP 111/65
[2019-02-25] MEDS: CHLORHEXIDINE GLUCONATE 15 ML UDC MM SCH ×2 (09:00→21:22)
[2019-02-25] MEDS: HYDROGEN PEROXIDE 480 ML BOTTLE TP SCH ×2 (09:00→21:08)
[2019-02-25] MEDS: LEVETIRACETAM SOL (5 ML) 100 MG/ML UDC GT SCH ×2 (09:00→21:22)
[2019-02-25] MEDS: CARBOXYMETHYLCELLULOSE SODIUM 0.4 ML DROPERETTE EACHEYE SCH (09:00)
[2019-02-25] MEDS: MULTIVIT W/MINERALS 1 TAB TABLET GT SCH (09:00)
[2019-02-25] MEDS: ZINC SULFATE 220 MG CAPSULE GT SCH (09:00)
[2019-02-25] MEDS: ACIDOPHILUS/BULGARICUS 1 EACH TAB.CHEW GT SCH ×2 (09:00→16:29)
[2019-02-25] MEDS: ASCORBIC ACID 500 MG TABLET GT SCH (09:00)
[2019-02-25] MEDS: PROSTAT (PYXIS) 30 ML UDC GT SCH ×3 (09:00→16:29)
[2019-02-25] MEDS: ACETAMINOPHEN 650 MG/20 ML UDC- SA PATIENTS-PAIN ONLY GT SCH ×2 (10:35→21:22)
[2019-02-25] MEDS: THERAHONEY GEL 1.5 OZ TUBE TP SCH ×2 (11:05→21:22)
[2019-02-25] MEDS: NYSTATIN/TRIAMCIN CREAM 15 GM TUBE TP SCH ×2 (11:05→21:22)
[2019-02-25] MEDS: COD LIVER OIL/ZINC OXIDE 120 GM TUBE TP SCH ×2 (11:05→21:22)
--- NOTE | 2019-02-25 21:29 | NUR ---
PT RECEIVE STABLE ON 28% FIO2 VIA T MASK, TRACH PATENT AND SECURED, YULISSA GREEN AND RUI BAG IS AT BEDSIDE, WILL CONTINUE TO MONITOR Addendum: 02/25/19 at 2130 by ABIEL DERAS RT Amended: Links added.
[2019-02-26] MEDS: METOCLOPRAMIDE HCL 10 MG/10 ML UDC GT SCH ×4 (00:28→17:07)
[2019-02-26] MEDS: IPRATROPIUM NEB FS 0.5 MG/2.5 ML AMPUL.NEB IH SCH ×4 (01:10→19:53)
[2019-02-26] MEDS: ALBUTEROL FS 2.5 MG/3 ML VIAL.NEB NEB SCH ×4 (01:10→19:53)
[2019-02-26] MEDS: OMEPRAZOLE 20 MG CAPSULE.DR GT SCH (06:10)
[2019-02-26] MEDS: LEVOTHYROXINE SODIUM 88 MCG TABLET GT SCH (06:10)
[2019-02-26 06:42] VITALS: BP 107/71
[2019-02-26 07:23] VITALS: BP 122/62
[2019-02-26] MEDS: HYDROGEN PEROXIDE 480 ML BOTTLE TP SCH ×2 (07:51→20:26)
[2019-02-26] MEDS: MULTIVIT W/MINERALS 1 TAB TABLET GT SCH (08:03)
[2019-02-26] MEDS: PROSTAT (PYXIS) 30 ML UDC GT SCH ×3 (08:03→16:21)
[2019-02-26] MEDS: CARBOXYMETHYLCELLULOSE SODIUM 0.4 ML DROPERETTE EACHEYE SCH (08:03)
[2019-02-26] MEDS: ACIDOPHILUS/BULGARICUS 1 EACH TAB.CHEW GT SCH ×2 (08:03→16:21)
[2019-02-26] MEDS: LEVETIRACETAM SOL (5 ML) 100 MG/ML UDC GT SCH ×2 (08:03→21:41)
[2019-02-26] MEDS: ACETAMINOPHEN 650 MG/20 ML UDC- SA PATIENTS-PAIN ONLY GT SCH ×2 (08:03→21:42)
[2019-02-26] MEDS: ASCORBIC ACID 500 MG TABLET GT SCH (08:03)
[2019-02-26] MEDS: CHLORHEXIDINE GLUCONATE 15 ML UDC MM SCH ×2 (08:04→21:42)
[2019-02-26] MEDS: ZINC SULFATE 220 MG CAPSULE GT SCH (08:04)
[2019-02-26] MEDS: THERAHONEY GEL 1.5 OZ TUBE TP SCH ×2 (09:35→21:42)
[2019-02-26] MEDS: COD LIVER OIL/ZINC OXIDE 120 GM TUBE TP SCH ×2 (09:35→21:42)
[2019-02-26] MEDS: NYSTATIN/TRIAMCIN CREAM 15 GM TUBE TP SCH ×2 (09:35→21:42)
--- NOTE | 2019-02-26 20:35 | NUR ---
PT RCVD TRACH'D ON COOL AEROSOL WITH CHARTED SETTINGS. PT NOLVIA TX WELL. SX DONE. PT TRACH IS PATENT AND SECURE. AMBU BAG AT BEDSIDE. NO SOB NOTED. Addendum: 02/26/19 at 2035 by ALEXEY MADRID RT Amended: Links added.
[2019-02-26 20:39] VITALS: BP 132/72
[2019-02-27] MEDS: METOCLOPRAMIDE HCL 10 MG/10 ML UDC GT SCH ×4 (00:16→17:52)
[2019-02-27] MEDS: ALBUTEROL FS 2.5 MG/3 ML VIAL.NEB NEB SCH ×4 (00:45→20:07)
[2019-02-27] MEDS: IPRATROPIUM NEB FS 0.5 MG/2.5 ML AMPUL.NEB IH SCH ×4 (00:45→20:07)
[2019-02-27] MEDS: LEVOTHYROXINE SODIUM 88 MCG TABLET GT SCH (06:00)
[2019-02-27] MEDS: OMEPRAZOLE 20 MG CAPSULE.DR GT SCH (06:00)
[2019-02-27 08:00] VITALS: BP 112/60
[2019-02-27] MEDS: HYDROGEN PEROXIDE 480 ML BOTTLE TP SCH ×2 (08:13→21:41)
[2019-02-27] MEDS: CARBOXYMETHYLCELLULOSE SODIUM 0.4 ML DROPERETTE EACHEYE SCH (09:38)
[2019-02-27] MEDS: LEVETIRACETAM SOL (5 ML) 100 MG/ML UDC GT SCH ×2 (09:38→20:39)
[2019-02-27] MEDS: ACIDOPHILUS/BULGARICUS 1 EACH TAB.CHEW GT SCH ×2 (09:39→16:19)
[2019-02-27] MEDS: PROSTAT (PYXIS) 30 ML UDC GT SCH ×3 (09:39→16:19)
[2019-02-27] MEDS: MULTIVIT W/MINERALS 1 TAB TABLET GT SCH (09:39)
[2019-02-27] MEDS: ZINC SULFATE 220 MG CAPSULE GT SCH (09:40)
[2019-02-27] MEDS: ACETAMINOPHEN 650 MG/20 ML UDC- SA PATIENTS-PAIN ONLY GT SCH ×2 (09:40→20:39)
[2019-02-27] MEDS: ASCORBIC ACID 500 MG TABLET GT SCH (09:40)
[2019-02-27] MEDS: CHLORHEXIDINE GLUCONATE 15 ML UDC MM SCH ×2 (09:40→21:15)
[2019-02-27] MEDS: NYSTATIN/TRIAMCIN CREAM 15 GM TUBE TP SCH ×2 (10:40→21:16)
[2019-02-27] MEDS: THERAHONEY GEL 1.5 OZ TUBE TP SCH ×2 (10:40→21:16)
[2019-02-27] MEDS: COD LIVER OIL/ZINC OXIDE 120 GM TUBE TP SCH ×2 (10:40→21:15)
--- NOTE | 2019-02-27 11:48 | NUR ---
JOSSE contacted the pt.'s daughter/DPOA, Reyna Galindo [phone] to inform her about the Family Satisfaction Survey and its purpose. However, the call went to [employer] and SW left detailed message with call back number. SW will determine if family prefers to fill it out upon next visit or have it mailed to them .
[2019-02-27 19:43] VITALS: BP 121/70
--- NOTE | 2019-02-27 21:50 | NUR ---
PT RECEIVE STABLE ON 285 FIO2 C/A VIA T BAR, TRACH PATENT AND SECURED SPARE TRACH AND AMBGilbert BAG IS AT BEDSIDE, WILL CONTINUE TO MONITOR Addendum: 02/27/19 at 2151 by ABIEL DERAS RT Amended: Links added.
[2019-02-27] MEDS: GLUCERNA 1.2 1,000 ML BOTTLE GT PRN (22:33)
[2019-02-28] MEDS: METOCLOPRAMIDE HCL 10 MG/10 ML UDC GT SCH ×4 (00:15→17:04)
[2019-02-28] MEDS: IPRATROPIUM NEB FS 0.5 MG/2.5 ML AMPUL.NEB IH SCH ×4 (00:50→20:00)
[2019-02-28] MEDS: ALBUTEROL FS 2.5 MG/3 ML VIAL.NEB NEB SCH ×4 (00:50→20:00)
[2019-02-28] MEDS: OMEPRAZOLE 20 MG CAPSULE.DR GT SCH (05:19)
[2019-02-28] MEDS: LEVOTHYROXINE SODIUM 88 MCG TABLET GT SCH (05:19)
[2019-02-28 07:58] VITALS: BP 105/55
[2019-02-28] MEDS: HYDROGEN PEROXIDE 480 ML BOTTLE TP SCH ×2 (09:00→21:00)
[2019-02-28] MEDS: ASCORBIC ACID 500 MG TABLET GT SCH (09:57)
[2019-02-28] MEDS: ACIDOPHILUS/BULGARICUS 1 EACH TAB.CHEW GT SCH ×2 (09:57→17:04)
[2019-02-28] MEDS: PROSTAT (PYXIS) 30 ML UDC GT SCH ×3 (09:57→17:04)
[2019-02-28] MEDS: CHLORHEXIDINE GLUCONATE 15 ML UDC MM SCH ×2 (09:57→21:44)
[2019-02-28] MEDS: LEVETIRACETAM SOL (5 ML) 100 MG/ML UDC GT SCH ×2 (09:57→21:44)
[2019-02-28] MEDS: ZINC SULFATE 220 MG CAPSULE GT SCH (09:57)
[2019-02-28] MEDS: CARBOXYMETHYLCELLULOSE SODIUM 0.4 ML DROPERETTE EACHEYE SCH (09:57)
[2019-02-28] MEDS: MULTIVIT W/MINERALS 1 TAB TABLET GT SCH (09:57)
[2019-02-28] MEDS: ACETAMINOPHEN 650 MG/20 ML UDC- SA PATIENTS-PAIN ONLY GT SCH ×2 (09:57→21:44)
[2019-02-28] MEDS: NYSTATIN/TRIAMCIN CREAM 15 GM TUBE TP SCH ×2 (10:30→21:00)
[2019-02-28] MEDS: COD LIVER OIL/ZINC OXIDE 120 GM TUBE TP SCH ×2 (10:30→21:00)
[2019-02-28] MEDS: THERAHONEY GEL 1.5 OZ TUBE TP SCH ×2 (10:30→21:00)
[2019-02-28 20:15] VITALS: BP 122/72
[2019-03-01] MEDS: METOCLOPRAMIDE HCL 10 MG/10 ML UDC GT SCH ×4 (00:07→17:17)
[2019-03-01] MEDS: IPRATROPIUM NEB FS 0.5 MG/2.5 ML AMPUL.NEB IH SCH ×4 (01:35→19:50)
[2019-03-01] MEDS: ALBUTEROL FS 2.5 MG/3 ML VIAL.NEB NEB SCH ×4 (01:35→19:50)
[2019-03-01] MEDS: GLUCERNA 1.2 1,000 ML BOTTLE GT PRN (03:57)
[2019-03-01] MEDS: LEVOTHYROXINE SODIUM 88 MCG TABLET GT SCH (05:57)
[2019-03-01] MEDS: OMEPRAZOLE 20 MG CAPSULE.DR GT SCH (05:57)
[2019-03-01 08:13] VITALS: BP 130/97
[2019-03-01] MEDS: HYDROGEN PEROXIDE 480 ML BOTTLE TP SCH ×2 (08:56→21:24)
[2019-03-01] MEDS: ASCORBIC ACID 500 MG TABLET GT SCH (09:00)
[2019-03-01] MEDS: ZINC SULFATE 220 MG CAPSULE GT SCH (09:00)
[2019-03-01] MEDS: ACIDOPHILUS/BULGARICUS 1 EACH TAB.CHEW GT SCH ×2 (09:00→17:17)
[2019-03-01] MEDS: CHLORHEXIDINE GLUCONATE 15 ML UDC MM SCH ×2 (09:00→20:06)
[2019-03-01] MEDS: CARBOXYMETHYLCELLULOSE SODIUM 0.4 ML DROPERETTE EACHEYE SCH (09:00)
[2019-03-01] MEDS: LEVETIRACETAM SOL (5 ML) 100 MG/ML UDC GT SCH ×2 (09:00→20:05)
[2019-03-01] MEDS: PROSTAT (PYXIS) 30 ML UDC GT SCH ×3 (09:00→17:17)
[2019-03-01] MEDS: MULTIVIT W/MINERALS 1 TAB TABLET GT SCH (09:00)
[2019-03-01] MEDS: ACETAMINOPHEN 650 MG/20 ML UDC- SA PATIENTS-PAIN ONLY GT SCH ×2 (10:20→20:06)
[2019-03-01] MEDS: THERAHONEY GEL 1.5 OZ TUBE TP SCH ×2 (10:50→20:06)
[2019-03-01] MEDS: COD LIVER OIL/ZINC OXIDE 120 GM TUBE TP SCH ×2 (10:50→20:06)
[2019-03-01] MEDS: NYSTATIN/TRIAMCIN CREAM 15 GM TUBE TP SCH ×2 (10:50→20:06)
[2019-03-01 20:34] VITALS: BP 117/63
[2019-03-02] MEDS: METOCLOPRAMIDE HCL 10 MG/10 ML UDC GT SCH ×5 (00:16→23:56)
[2019-03-02] MEDS: IPRATROPIUM NEB FS 0.5 MG/2.5 ML AMPUL.NEB IH SCH ×4 (02:29→19:35)
[2019-03-02] MEDS: ALBUTEROL FS 2.5 MG/3 ML VIAL.NEB NEB SCH ×4 (02:29→19:36)
[2019-03-02] MEDS: GLUCERNA 1.2 1,000 ML BOTTLE GT PRN (04:40)
[2019-03-02] MEDS: OMEPRAZOLE 20 MG CAPSULE.DR GT SCH (05:13)
[2019-03-02] MEDS: LEVOTHYROXINE SODIUM 88 MCG TABLET GT SCH (05:14)
[2019-03-02 07:10] VITALS: BP 105/41
[2019-03-02] MEDS: LEVETIRACETAM SOL (5 ML) 100 MG/ML UDC GT SCH ×2 (08:04→20:32)
[2019-03-02] MEDS: MULTIVIT W/MINERALS 1 TAB TABLET GT SCH (08:04)
[2019-03-02] MEDS: CARBOXYMETHYLCELLULOSE SODIUM 0.4 ML DROPERETTE EACHEYE SCH (08:04)
[2019-03-02] MEDS: PROSTAT (PYXIS) 30 ML UDC GT SCH ×3 (08:04→17:06)
[2019-03-02] MEDS: ACIDOPHILUS/BULGARICUS 1 EACH TAB.CHEW GT SCH ×2 (08:04→17:06)
[2019-03-02] MEDS: CHLORHEXIDINE GLUCONATE 15 ML UDC MM SCH ×2 (08:05→20:32)
[2019-03-02] MEDS: ZINC SULFATE 220 MG CAPSULE GT SCH (08:05)
[2019-03-02] MEDS: ACETAMINOPHEN 650 MG/20 ML UDC- SA PATIENTS-PAIN ONLY GT SCH ×2 (08:05→20:32)
[2019-03-02] MEDS: COD LIVER OIL/ZINC OXIDE 120 GM TUBE TP SCH ×2 (08:05→20:32)
[2019-03-02] MEDS: ASCORBIC ACID 500 MG TABLET GT SCH (08:05)
[2019-03-02] MEDS: THERAHONEY GEL 1.5 OZ TUBE TP SCH ×2 (08:07→20:47)
[2019-03-02] MEDS: NYSTATIN/TRIAMCIN CREAM 15 GM TUBE TP SCH ×2 (08:07→20:32)
[2019-03-02] MEDS: HYDROGEN PEROXIDE 480 ML BOTTLE TP SCH ×2 (09:00→20:32)
[2019-03-02 19:57] VITALS: BP 133/71
[2019-03-03] MEDS: ALBUTEROL FS 2.5 MG/3 ML VIAL.NEB NEB SCH ×4 (01:38→19:36)
[2019-03-03] MEDS: IPRATROPIUM NEB FS 0.5 MG/2.5 ML AMPUL.NEB IH SCH ×4 (01:39→19:36)
[2019-03-03] MEDS: GLUCERNA 1.2 1,000 ML BOTTLE GT PRN ×2 (04:57→05:02)
[2019-03-03] MEDS: LEVOTHYROXINE SODIUM 88 MCG TABLET GT SCH (05:01)
[2019-03-03] MEDS: OMEPRAZOLE 20 MG CAPSULE.DR GT SCH (05:01)
[2019-03-03] MEDS: METOCLOPRAMIDE HCL 10 MG/10 ML UDC GT SCH ×4 (05:01→23:13)
[2019-03-03 07:28] VITALS: BP 124/71
[2019-03-03] MEDS: CARBOXYMETHYLCELLULOSE SODIUM 0.4 ML DROPERETTE EACHEYE SCH (08:16)
[2019-03-03] MEDS: ZINC SULFATE 220 MG CAPSULE GT SCH (08:19)
[2019-03-03] MEDS: ACETAMINOPHEN 650 MG/20 ML UDC- SA PATIENTS-PAIN ONLY GT SCH ×2 (08:19→21:49)
[2019-03-03] MEDS: ASCORBIC ACID 500 MG TABLET GT SCH (08:19)
[2019-03-03] MEDS: LEVETIRACETAM SOL (5 ML) 100 MG/ML UDC GT SCH ×2 (08:20→21:49)
[2019-03-03] MEDS: ACIDOPHILUS/BULGARICUS 1 EACH TAB.CHEW GT SCH ×2 (08:20→17:13)
[2019-03-03] MEDS: PROSTAT (PYXIS) 30 ML UDC GT SCH ×3 (08:21→17:13)
[2019-03-03] MEDS: CHLORHEXIDINE GLUCONATE 15 ML UDC MM SCH ×2 (08:21→21:49)
[2019-03-03] MEDS: MULTIVIT W/MINERALS 1 TAB TABLET GT SCH (08:21)
[2019-03-03] MEDS: THERAHONEY GEL 1.5 OZ TUBE TP SCH ×2 (09:00→21:49)
[2019-03-03] MEDS: COD LIVER OIL/ZINC OXIDE 120 GM TUBE TP SCH ×2 (09:00→21:49)
[2019-03-03] MEDS: HYDROGEN PEROXIDE 480 ML BOTTLE TP SCH ×2 (09:00→21:04)
[2019-03-03] MEDS: NYSTATIN/TRIAMCIN CREAM 15 GM TUBE TP SCH ×2 (09:00→21:49)
--- NOTE | 2019-03-03 18:05 | NUR ---
Seen and examined by Dr. Ross, no new order given.
[2019-03-03 19:35] VITALS: BP 131/74
[2019-03-04] MEDS: IPRATROPIUM NEB FS 0.5 MG/2.5 ML AMPUL.NEB IH SCH ×4 (01:40→19:03)
[2019-03-04] MEDS: ALBUTEROL FS 2.5 MG/3 ML VIAL.NEB NEB SCH ×4 (01:41→19:03)
--- NOTE | 2019-03-04 05:44 | NUR ---
RT Patient was received on 28% cool aerosol.Breathing treatment and tracheal suctioning was done. Trach tube patent and secured.Patient stable throughout the shift. Will continue to monitor. Addendum: 03/04/19 at 0549 by DAKSHA SHARP RT Amended: Links added.
[2019-03-04] MEDS: METOCLOPRAMIDE HCL 10 MG/10 ML UDC GT SCH ×4 (05:54→23:37)
[2019-03-04] MEDS: OMEPRAZOLE 20 MG CAPSULE.DR GT SCH (05:54)
[2019-03-04] MEDS: LEVOTHYROXINE SODIUM 88 MCG TABLET GT SCH (05:54)
[2019-03-04 07:56] VITALS: BP 140/59
[2019-03-04] MEDS: HYDROGEN PEROXIDE 480 ML BOTTLE TP SCH ×2 (08:02→21:15)
[2019-03-04] MEDS: LEVETIRACETAM SOL (5 ML) 100 MG/ML UDC GT SCH ×2 (09:40→21:00)
[2019-03-04] MEDS: ACIDOPHILUS/BULGARICUS 1 EACH TAB.CHEW GT SCH ×2 (09:40→17:54)
[2019-03-04] MEDS: MULTIVIT W/MINERALS 1 TAB TABLET GT SCH (09:40)
[2019-03-04] MEDS: ZINC SULFATE 220 MG CAPSULE GT SCH (09:40)
[2019-03-04] MEDS: CARBOXYMETHYLCELLULOSE SODIUM 0.4 ML DROPERETTE EACHEYE SCH (09:40)
[2019-03-04] MEDS: CHLORHEXIDINE GLUCONATE 15 ML UDC MM SCH ×2 (09:40→21:01)
[2019-03-04] MEDS: ASCORBIC ACID 500 MG TABLET GT SCH (09:40)
[2019-03-04] MEDS: ACETAMINOPHEN 650 MG/20 ML UDC- SA PATIENTS-PAIN ONLY GT SCH ×2 (09:40→21:00)
[2019-03-04] MEDS: PROSTAT (PYXIS) 30 ML UDC GT SCH ×3 (09:40→17:54)
[2019-03-04] MEDS: NYSTATIN/TRIAMCIN CREAM 15 GM TUBE TP SCH ×2 (10:10→22:00)
[2019-03-04] MEDS: COD LIVER OIL/ZINC OXIDE 120 GM TUBE TP SCH ×2 (10:10→22:00)
[2019-03-04] MEDS: THERAHONEY GEL 1.5 OZ TUBE TP SCH ×2 (10:10→22:00)
[2019-03-04 20:02] VITALS: BP_SYST 107; BP_SYST 128; BP_DIAS 55; BP_DIAS 70
[2019-03-05] MEDS: IPRATROPIUM NEB FS 0.5 MG/2.5 ML AMPUL.NEB IH SCH ×5 (00:42→23:07)
[2019-03-05] MEDS: ALBUTEROL FS 2.5 MG/3 ML VIAL.NEB NEB SCH ×5 (00:42→23:07)
[2019-03-05] MEDS: OMEPRAZOLE 20 MG CAPSULE.DR GT SCH (05:56)
[2019-03-05] MEDS: METOCLOPRAMIDE HCL 10 MG/10 ML UDC GT SCH ×4 (05:56→23:36)
[2019-03-05] MEDS: LEVOTHYROXINE SODIUM 88 MCG TABLET GT SCH (05:56)
[2019-03-05 07:36] VITALS: BP 108/72
[2019-03-05] MEDS: ASCORBIC ACID 500 MG TABLET GT SCH (08:36)
[2019-03-05] MEDS: ACIDOPHILUS/BULGARICUS 1 EACH TAB.CHEW GT SCH ×2 (08:36→17:03)
[2019-03-05] MEDS: PROSTAT (PYXIS) 30 ML UDC GT SCH ×3 (08:36→17:03)
[2019-03-05] MEDS: MULTIVIT W/MINERALS 1 TAB TABLET GT SCH (08:36)
[2019-03-05] MEDS: ACETAMINOPHEN 650 MG/20 ML UDC- SA PATIENTS-PAIN ONLY GT SCH ×2 (08:36→21:58)
[2019-03-05] MEDS: ZINC SULFATE 220 MG CAPSULE GT SCH (08:36)
[2019-03-05] MEDS: LEVETIRACETAM SOL (5 ML) 100 MG/ML UDC GT SCH ×2 (08:36→21:58)
[2019-03-05] MEDS: CARBOXYMETHYLCELLULOSE SODIUM 0.4 ML DROPERETTE EACHEYE SCH (08:36)
[2019-03-05] MEDS: CHLORHEXIDINE GLUCONATE 15 ML UDC MM SCH ×2 (08:36→21:58)
[2019-03-05] MEDS: COD LIVER OIL/ZINC OXIDE 120 GM TUBE TP SCH ×2 (09:00→21:58)
[2019-03-05] MEDS: HYDROGEN PEROXIDE 480 ML BOTTLE TP SCH ×2 (09:00→21:00)
[2019-03-05] MEDS: THERAHONEY GEL 1.5 OZ TUBE TP SCH ×2 (09:15→21:58)
[2019-03-05] MEDS: NYSTATIN/TRIAMCIN CREAM 15 GM TUBE TP SCH ×2 (09:15→21:58)
[2019-03-05 21:24] VITALS: BP 133/67
--- NOTE | 2019-03-06 01:27 | NUR ---
RT NOTE: RECEIVED TRACH PT ON COOL AEROSOL. AMBU BAG @ BEDSIDE. Q6 BREATHING TX GIVEN PER MD ORDERS WITH NO ADVERSE REACTION NOTED. SX DONE PRN. TRACH PATENT AND SECURED. TRACH CARE DONE. NO RESP DISTRESS NOTED AT THIS TIME. WILL CONTINUE TO MONITOR PT Addendum: 03/07/19 at 0259 by RACHEL AVALOS RT Amended: Links added.
[2019-03-06] MEDS: OMEPRAZOLE 20 MG CAPSULE.DR GT SCH (05:50)
[2019-03-06] MEDS: METOCLOPRAMIDE HCL 10 MG/10 ML UDC GT SCH ×3 (05:50→18:56)
[2019-03-06] MEDS: LEVOTHYROXINE SODIUM 88 MCG TABLET GT SCH (05:50)
[2019-03-06 07:45] VITALS: BP 109/56
[2019-03-06] MEDS: ALBUTEROL FS 2.5 MG/3 ML VIAL.NEB NEB SCH ×3 (07:59→19:32)
[2019-03-06] MEDS: IPRATROPIUM NEB FS 0.5 MG/2.5 ML AMPUL.NEB IH SCH ×3 (07:59→19:32)
[2019-03-06] MEDS: HYDROGEN PEROXIDE 480 ML BOTTLE TP SCH ×2 (09:00→19:32)
[2019-03-06] MEDS: ACIDOPHILUS/BULGARICUS 1 EACH TAB.CHEW GT SCH ×2 (09:50→17:00)
[2019-03-06] MEDS: PROSTAT (PYXIS) 30 ML UDC GT SCH ×3 (09:50→17:00)
[2019-03-06] MEDS: LEVETIRACETAM SOL (5 ML) 100 MG/ML UDC GT SCH ×2 (09:50→21:41)
[2019-03-06] MEDS: MULTIVIT W/MINERALS 1 TAB TABLET GT SCH (09:50)
[2019-03-06] MEDS: CARBOXYMETHYLCELLULOSE SODIUM 0.4 ML DROPERETTE EACHEYE SCH (09:50)
[2019-03-06] MEDS: ACETAMINOPHEN 650 MG/20 ML UDC- SA PATIENTS-PAIN ONLY GT SCH ×2 (09:51→21:41)
[2019-03-06] MEDS: COD LIVER OIL/ZINC OXIDE 120 GM TUBE TP SCH ×2 (09:51→21:41)
[2019-03-06] MEDS: ASCORBIC ACID 500 MG TABLET GT SCH (09:51)
[2019-03-06] MEDS: CHLORHEXIDINE GLUCONATE 15 ML UDC MM SCH ×2 (09:51→21:41)
[2019-03-06] MEDS: ZINC SULFATE 220 MG CAPSULE GT SCH (09:51)
[2019-03-06 20:39] VITALS: BP 121/69
[2019-03-07] MEDS: METOCLOPRAMIDE HCL 10 MG/10 ML UDC GT SCH ×5 (00:27→23:49)
[2019-03-07] MEDS: IPRATROPIUM NEB FS 0.5 MG/2.5 ML AMPUL.NEB IH SCH ×4 (01:17→19:48)
[2019-03-07] MEDS: ALBUTEROL FS 2.5 MG/3 ML VIAL.NEB NEB SCH ×4 (01:17→19:48)
[2019-03-07] MEDS: OMEPRAZOLE 20 MG CAPSULE.DR GT SCH (06:07)
[2019-03-07] MEDS: GLUCERNA 1.2 1,000 ML BOTTLE GT PRN (06:07)
[2019-03-07] MEDS: LEVOTHYROXINE SODIUM 88 MCG TABLET GT SCH (06:07)
[2019-03-07 07:18] VITALS: BP 105/60
[2019-03-07] MEDS: HYDROGEN PEROXIDE 480 ML BOTTLE TP SCH ×2 (07:58→19:48)
[2019-03-07] MEDS: CARBOXYMETHYLCELLULOSE SODIUM 0.4 ML DROPERETTE EACHEYE SCH (08:21)
[2019-03-07] MEDS: ACIDOPHILUS/BULGARICUS 1 EACH TAB.CHEW GT SCH ×2 (08:21→17:04)
[2019-03-07] MEDS: MULTIVIT W/MINERALS 1 TAB TABLET GT SCH (08:21)
[2019-03-07] MEDS: PROSTAT (PYXIS) 30 ML UDC GT SCH ×3 (08:21→17:05)
[2019-03-07] MEDS: LEVETIRACETAM SOL (5 ML) 100 MG/ML UDC GT SCH ×2 (08:21→21:14)
[2019-03-07] MEDS: ACETAMINOPHEN 650 MG/20 ML UDC- SA PATIENTS-PAIN ONLY GT SCH ×2 (08:22→21:14)
[2019-03-07] MEDS: COD LIVER OIL/ZINC OXIDE 120 GM TUBE TP SCH ×2 (08:22→21:14)
[2019-03-07] MEDS: ASCORBIC ACID 500 MG TABLET GT SCH (08:22)
[2019-03-07] MEDS: CHLORHEXIDINE GLUCONATE 15 ML UDC MM SCH ×2 (08:22→21:14)
[2019-03-07] MEDS: ZINC SULFATE 220 MG CAPSULE GT SCH (08:22)
[2019-03-07 19:58] VITALS: BP 137/72
[2019-03-07] MEDS: TRIAMCINOLONE ACETONIDE 0.1% CR 15 GM TUBE TP SCH (21:14)
[2019-03-07] MEDS: NYSTATIN CREAM 15 GM TUBE TP SCH (21:15)
[2019-03-07] MEDS: THERAHONEY GEL 1.5 OZ TUBE TP SCH (21:15)
[2019-03-08] MEDS: IPRATROPIUM NEB FS 0.5 MG/2.5 ML AMPUL.NEB IH SCH ×4 (01:44→19:35)
[2019-03-08] MEDS: ALBUTEROL FS 2.5 MG/3 ML VIAL.NEB NEB SCH ×4 (01:44→19:35)
[2019-03-08] MEDS: GLUCERNA 1.2 1,000 ML BOTTLE GT PRN (05:20)
[2019-03-08] MEDS: LEVOTHYROXINE SODIUM 88 MCG TABLET GT SCH (05:20)
[2019-03-08] MEDS: METOCLOPRAMIDE HCL 10 MG/10 ML UDC GT SCH ×3 (05:20→17:13)
[2019-03-08] MEDS: OMEPRAZOLE 20 MG CAPSULE.DR GT SCH (05:20)
[2019-03-08 07:33] VITALS: BP 105/62
[2019-03-08] MEDS: HYDROGEN PEROXIDE 480 ML BOTTLE TP SCH ×2 (09:00→21:14)
[2019-03-08] MEDS: LEVETIRACETAM SOL (5 ML) 100 MG/ML UDC GT SCH ×2 (09:01→21:53)
[2019-03-08] MEDS: CARBOXYMETHYLCELLULOSE SODIUM 0.4 ML DROPERETTE EACHEYE SCH (09:01)
[2019-03-08] MEDS: PROSTAT (PYXIS) 30 ML UDC GT SCH ×3 (09:22→17:12)
[2019-03-08] MEDS: MULTIVIT W/MINERALS 1 TAB TABLET GT SCH (09:22)
[2019-03-08] MEDS: ASCORBIC ACID 500 MG TABLET GT SCH (09:23)
[2019-03-08] MEDS: ACETAMINOPHEN 650 MG/20 ML UDC- SA PATIENTS-PAIN ONLY GT SCH ×2 (09:23→21:53)
[2019-03-08] MEDS: NYSTATIN CREAM 15 GM TUBE TP SCH ×2 (09:24→21:52)
[2019-03-08] MEDS: ACIDOPHILUS/BULGARICUS 1 EACH TAB.CHEW GT SCH ×2 (09:24→17:12)
[2019-03-08] MEDS: TRIAMCINOLONE ACETONIDE 0.1% CR 15 GM TUBE TP SCH ×2 (09:24→21:52)
[2019-03-08] MEDS: THERAHONEY GEL 1.5 OZ TUBE TP SCH ×2 (09:24→21:52)
[2019-03-08] MEDS: COD LIVER OIL/ZINC OXIDE 120 GM TUBE TP SCH ×2 (09:24→21:52)
[2019-03-08] MEDS: ZINC SULFATE 220 MG CAPSULE GT SCH (09:24)
[2019-03-08] MEDS: CHLORHEXIDINE GLUCONATE 15 ML UDC MM SCH ×2 (09:24→21:55)
[2019-03-08 20:09] VITALS: BP 114/68
[2019-03-09] MEDS: METOCLOPRAMIDE HCL 10 MG/10 ML UDC GT SCH ×5 (00:24→23:11)
[2019-03-09] MEDS: IPRATROPIUM NEB FS 0.5 MG/2.5 ML AMPUL.NEB IH SCH ×4 (01:46→19:38)
[2019-03-09] MEDS: ALBUTEROL FS 2.5 MG/3 ML VIAL.NEB NEB SCH ×4 (01:46→19:38)
[2019-03-09] MEDS: OMEPRAZOLE 20 MG CAPSULE.DR GT SCH (06:13)
[2019-03-09] MEDS: LEVOTHYROXINE SODIUM 88 MCG TABLET GT SCH (06:13)
[2019-03-09 08:03] VITALS: BP 103/50
[2019-03-09] MEDS: HYDROGEN PEROXIDE 480 ML BOTTLE TP SCH ×2 (08:06→21:00)
--- NOTE | 2019-03-09 08:30 | NUR ---
Jamil catheter noted with blockage and bypassing urine. Jamil catheter 18 Mexican by 10mls changed as ordered. Tolerated procedure well. Urine is clean and yellow. Kept clean and comfortable.
[2019-03-09] MEDS: ACIDOPHILUS/BULGARICUS 1 EACH TAB.CHEW GT SCH ×2 (09:02→16:55)
[2019-03-09] MEDS: LEVETIRACETAM SOL (5 ML) 100 MG/ML UDC GT SCH ×2 (09:02→21:20)
[2019-03-09] MEDS: CARBOXYMETHYLCELLULOSE SODIUM 0.4 ML DROPERETTE EACHEYE SCH (09:02)
[2019-03-09] MEDS: MULTIVIT W/MINERALS 1 TAB TABLET GT SCH (09:04)
[2019-03-09] MEDS: ACETAMINOPHEN 650 MG/20 ML UDC- SA PATIENTS-PAIN ONLY GT SCH ×2 (09:04→21:20)
[2019-03-09] MEDS: PROSTAT (PYXIS) 30 ML UDC GT SCH ×3 (09:04→16:55)
[2019-03-09] MEDS: ZINC SULFATE 220 MG CAPSULE GT SCH (09:05)
[2019-03-09] MEDS: ASCORBIC ACID 500 MG TABLET GT SCH (09:05)
[2019-03-09] MEDS: CHLORHEXIDINE GLUCONATE 15 ML UDC MM SCH ×2 (09:05→21:20)
[2019-03-09] MEDS: COD LIVER OIL/ZINC OXIDE 120 GM TUBE TP SCH ×2 (10:04→21:20)
[2019-03-09] MEDS: NYSTATIN CREAM 15 GM TUBE TP SCH ×2 (10:04→21:20)
[2019-03-09] MEDS: TRIAMCINOLONE ACETONIDE 0.1% CR 15 GM TUBE TP SCH ×2 (10:04→21:20)
[2019-03-09] MEDS: THERAHONEY GEL 1.5 OZ TUBE TP SCH ×2 (10:04→21:21)
[2019-03-09] MEDS: GLUCERNA 1.2 1,000 ML BOTTLE GT PRN (10:25)
[2019-03-09 19:38] VITALS: BP 117/62
[2019-03-10] MEDS: IPRATROPIUM NEB FS 0.5 MG/2.5 ML AMPUL.NEB IH SCH ×4 (01:01→19:48)
[2019-03-10] MEDS: ALBUTEROL FS 2.5 MG/3 ML VIAL.NEB NEB SCH ×4 (01:01→19:48)
[2019-03-10] MEDS: LEVOTHYROXINE SODIUM 88 MCG TABLET GT SCH (05:15)
[2019-03-10] MEDS: GLUCERNA 1.2 1,000 ML BOTTLE GT PRN (05:15)
[2019-03-10] MEDS: OMEPRAZOLE 20 MG CAPSULE.DR GT SCH (05:15)
[2019-03-10] MEDS: METOCLOPRAMIDE HCL 10 MG/10 ML UDC GT SCH ×3 (05:15→17:49)
[2019-03-10 07:30] VITALS: BP 114/68
[2019-03-10] MEDS: HYDROGEN PEROXIDE 480 ML BOTTLE TP SCH ×2 (09:00→19:48)
[2019-03-10] MEDS: NYSTATIN CREAM 15 GM TUBE TP SCH ×2 (09:00→20:54)
[2019-03-10] MEDS: THERAHONEY GEL 1.5 OZ TUBE TP SCH ×2 (09:00→20:54)
[2019-03-10] MEDS: COD LIVER OIL/ZINC OXIDE 120 GM TUBE TP SCH ×2 (09:00→20:54)
[2019-03-10] MEDS: TRIAMCINOLONE ACETONIDE 0.1% CR 15 GM TUBE TP SCH ×2 (09:00→20:54)
[2019-03-10] MEDS: CARBOXYMETHYLCELLULOSE SODIUM 0.4 ML DROPERETTE EACHEYE SCH (09:21)
[2019-03-10] MEDS: ACIDOPHILUS/BULGARICUS 1 EACH TAB.CHEW GT SCH ×2 (09:21→17:49)
[2019-03-10] MEDS: PROSTAT (PYXIS) 30 ML UDC GT SCH ×3 (09:21→17:49)
[2019-03-10] MEDS: MULTIVIT W/MINERALS 1 TAB TABLET GT SCH (09:21)
[2019-03-10] MEDS: LEVETIRACETAM SOL (5 ML) 100 MG/ML UDC GT SCH ×2 (09:21→20:53)
[2019-03-10] MEDS: ASCORBIC ACID 500 MG TABLET GT SCH (09:22)
[2019-03-10] MEDS: ZINC SULFATE 220 MG CAPSULE GT SCH (09:22)
[2019-03-10] MEDS: CHLORHEXIDINE GLUCONATE 15 ML UDC MM SCH ×2 (09:22→20:53)
[2019-03-10] MEDS: ACETAMINOPHEN 650 MG/20 ML UDC- SA PATIENTS-PAIN ONLY GT SCH ×2 (09:22→20:53)
--- NOTE | 2019-03-10 16:40 | NUR ---
Seen and examined by Dr. Ross no new orders.
[2019-03-10 19:45] VITALS: BP 126/81
--- NOTE | 2019-03-10 19:58 | NUR ---
RT NOTE: RECEIVED TRACH PT ON COOL AEROSOL. AMBU BAG @ BEDSIDE. Q6 BREATHING TX GIVEN PER MD ORDERS WITH NO ADVERSE REACTION NOTED. SX DONE PRN. TRACH PATENT AND SECURED. TRACH CARE DONE. NO RESP DISTRESS NOTED AT THIS TIME. WILL CONTINUE TO MONITOR PT Addendum: 03/11/19 at 0247 by RACHEL AVALOS RT Amended: Links added.
[2019-03-11] MEDS: METOCLOPRAMIDE HCL 10 MG/10 ML UDC GT SCH ×5 (00:10→23:59)
[2019-03-11] MEDS: ALBUTEROL FS 2.5 MG/3 ML VIAL.NEB NEB SCH ×4 (01:43→19:47)
[2019-03-11] MEDS: IPRATROPIUM NEB FS 0.5 MG/2.5 ML AMPUL.NEB IH SCH ×4 (01:43→19:47)
[2019-03-11] MEDS: GLUCERNA 1.2 1,000 ML BOTTLE GT PRN (06:03)
[2019-03-11] MEDS: OMEPRAZOLE 20 MG CAPSULE.DR GT SCH (06:03)
[2019-03-11] MEDS: LEVOTHYROXINE SODIUM 88 MCG TABLET GT SCH (06:03)
[2019-03-11 07:26] VITALS: BP 132/78
[2019-03-11] MEDS: HYDROGEN PEROXIDE 480 ML BOTTLE TP SCH ×2 (08:17→19:47)
[2019-03-11] MEDS: CARBOXYMETHYLCELLULOSE SODIUM 0.4 ML DROPERETTE EACHEYE SCH (09:51)
[2019-03-11] MEDS: LEVETIRACETAM SOL (5 ML) 100 MG/ML UDC GT SCH ×2 (09:51→20:21)
[2019-03-11] MEDS: MULTIVIT W/MINERALS 1 TAB TABLET GT SCH (09:51)
[2019-03-11] MEDS: ACETAMINOPHEN 650 MG/20 ML UDC- SA PATIENTS-PAIN ONLY GT SCH ×2 (09:51→20:22)
[2019-03-11] MEDS: ASCORBIC ACID 500 MG TABLET GT SCH (09:51)
[2019-03-11] MEDS: CHLORHEXIDINE GLUCONATE 15 ML UDC MM SCH ×2 (09:51→20:23)
[2019-03-11] MEDS: ZINC SULFATE 220 MG CAPSULE GT SCH (09:51)
[2019-03-11] MEDS: ACIDOPHILUS/BULGARICUS 1 EACH TAB.CHEW GT SCH ×2 (09:51→17:00)
[2019-03-11] MEDS: PROSTAT (PYXIS) 30 ML UDC GT SCH ×3 (09:51→17:00)
[2019-03-11] MEDS: TRIAMCINOLONE ACETONIDE 0.1% CR 15 GM TUBE TP SCH ×2 (10:53→20:23)
[2019-03-11] MEDS: NYSTATIN CREAM 15 GM TUBE TP SCH ×2 (10:53→21:29)
[2019-03-11] MEDS: THERAHONEY GEL 1.5 OZ TUBE TP SCH ×2 (10:53→21:29)
[2019-03-11] MEDS: COD LIVER OIL/ZINC OXIDE 120 GM TUBE TP SCH ×2 (10:53→20:23)
[2019-03-11 19:48] VITALS: BP 132/67
[2019-03-12] MEDS: IPRATROPIUM NEB FS 0.5 MG/2.5 ML AMPUL.NEB IH SCH ×4 (01:21→20:16)
[2019-03-12] MEDS: ALBUTEROL FS 2.5 MG/3 ML VIAL.NEB NEB SCH ×4 (01:21→20:16)
[2019-03-12] MEDS: METOCLOPRAMIDE HCL 10 MG/10 ML UDC GT SCH ×4 (05:26→23:57)
[2019-03-12] MEDS: LEVOTHYROXINE SODIUM 88 MCG TABLET GT SCH (05:26)
[2019-03-12] MEDS: OMEPRAZOLE 20 MG CAPSULE.DR GT SCH (05:26)
[2019-03-12 07:26] VITALS: BP 115/65
[2019-03-12] MEDS: HYDROGEN PEROXIDE 480 ML BOTTLE TP SCH ×2 (08:29→20:16)
[2019-03-12] MEDS: CARBOXYMETHYLCELLULOSE SODIUM 0.4 ML DROPERETTE EACHEYE SCH (09:44)
[2019-03-12] MEDS: ASCORBIC ACID 500 MG TABLET GT SCH (09:44)
[2019-03-12] MEDS: CHLORHEXIDINE GLUCONATE 15 ML UDC MM SCH ×2 (09:44→20:13)
[2019-03-12] MEDS: ZINC SULFATE 220 MG CAPSULE GT SCH (09:44)
[2019-03-12] MEDS: PROSTAT (PYXIS) 30 ML UDC GT SCH ×3 (09:44→16:52)
[2019-03-12] MEDS: LEVETIRACETAM SOL (5 ML) 100 MG/ML UDC GT SCH ×2 (09:44→20:12)
[2019-03-12] MEDS: ACIDOPHILUS/BULGARICUS 1 EACH TAB.CHEW GT SCH ×2 (09:44→16:52)
[2019-03-12] MEDS: ACETAMINOPHEN 650 MG/20 ML UDC- SA PATIENTS-PAIN ONLY GT SCH ×2 (09:44→20:13)
[2019-03-12] MEDS: MULTIVIT W/MINERALS 1 TAB TABLET GT SCH (09:44)
[2019-03-12] MEDS: TRIAMCINOLONE ACETONIDE 0.1% CR 15 GM TUBE TP SCH ×2 (10:30→21:24)
[2019-03-12] MEDS: THERAHONEY GEL 1.5 OZ TUBE TP SCH ×2 (10:30→21:24)
[2019-03-12] MEDS: COD LIVER OIL/ZINC OXIDE 120 GM TUBE TP SCH ×2 (10:30→21:24)
[2019-03-12] MEDS: NYSTATIN CREAM 15 GM TUBE TP SCH ×2 (10:30→21:24)
[2019-03-12 20:15] VITALS: BP 114/74
[2019-03-13] MEDS: ALBUTEROL FS 2.5 MG/3 ML VIAL.NEB NEB SCH ×4 (00:53→19:34)
[2019-03-13] MEDS: IPRATROPIUM NEB FS 0.5 MG/2.5 ML AMPUL.NEB IH SCH ×4 (00:53→19:34)
[2019-03-13] MEDS: OMEPRAZOLE 20 MG CAPSULE.DR GT SCH (05:16)
[2019-03-13] MEDS: METOCLOPRAMIDE HCL 10 MG/10 ML UDC GT SCH ×3 (05:16→18:23)
[2019-03-13] MEDS: LEVOTHYROXINE SODIUM 88 MCG TABLET GT SCH (05:16)
[2019-03-13 07:36] VITALS: BP 122/75
[2019-03-13] MEDS: HYDROGEN PEROXIDE 480 ML BOTTLE TP SCH ×2 (07:52→20:25)
[2019-03-13] MEDS: CHLORHEXIDINE GLUCONATE 15 ML UDC MM SCH ×2 (09:00→20:57)
[2019-03-13] MEDS: NYSTATIN CREAM 15 GM TUBE TP SCH ×2 (09:00→20:57)
[2019-03-13] MEDS: THERAHONEY GEL 1.5 OZ TUBE TP SCH ×2 (09:00→20:57)
[2019-03-13] MEDS: TRIAMCINOLONE ACETONIDE 0.1% CR 15 GM TUBE TP SCH ×2 (09:00→20:57)
[2019-03-13] MEDS: COD LIVER OIL/ZINC OXIDE 120 GM TUBE TP SCH ×2 (09:00→20:57)
[2019-03-13] MEDS: PROSTAT (PYXIS) 30 ML UDC GT SCH ×3 (09:29→16:47)
[2019-03-13] MEDS: ACIDOPHILUS/BULGARICUS 1 EACH TAB.CHEW GT SCH ×2 (09:29→16:47)
[2019-03-13] MEDS: MULTIVIT W/MINERALS 1 TAB TABLET GT SCH (09:29)
[2019-03-13] MEDS: CARBOXYMETHYLCELLULOSE SODIUM 0.4 ML DROPERETTE EACHEYE SCH (09:29)
[2019-03-13] MEDS: LEVETIRACETAM SOL (5 ML) 100 MG/ML UDC GT SCH ×2 (09:29→20:14)
[2019-03-13] MEDS: ASCORBIC ACID 500 MG TABLET GT SCH (09:30)
[2019-03-13] MEDS: ACETAMINOPHEN 650 MG/20 ML UDC- SA PATIENTS-PAIN ONLY GT SCH ×2 (09:30→20:15)
[2019-03-13] MEDS: ZINC SULFATE 220 MG CAPSULE GT SCH (09:30)
--- NOTE | 2019-03-13 12:50 | NUR ---
Seen and examined by Dr. Ross and SENIOR SQL DBA Becca Smith NNO given.
[2019-03-13 20:30] VITALS: BP 125/75
--- NOTE | 2019-03-13 21:50 | NUR ---
PT RECEIVE STABLE ON C/A @ 28% FIO2, TRACH PATENT AND SECURED, BACK UP NORMA AND RUI BAG IS AT BEDSIDE, WILL CONTINUE TO MONITOR Addendum: 03/13/19 at 2151 by ABIEL DERAS RT Amended: Links added.
[2019-03-14] MEDS: METOCLOPRAMIDE HCL 10 MG/10 ML UDC GT SCH ×5 (00:19→23:20)
[2019-03-14] MEDS: IPRATROPIUM NEB FS 0.5 MG/2.5 ML AMPUL.NEB IH SCH ×4 (01:43→19:43)
[2019-03-14] MEDS: ALBUTEROL FS 2.5 MG/3 ML VIAL.NEB NEB SCH ×4 (01:44→19:43)
[2019-03-14] MEDS: OMEPRAZOLE 20 MG CAPSULE.DR GT SCH (05:05)
[2019-03-14] MEDS: LEVOTHYROXINE SODIUM 88 MCG TABLET GT SCH (05:05)
[2019-03-14 07:41] VITALS: BP 126/78
[2019-03-14] MEDS: HYDROGEN PEROXIDE 480 ML BOTTLE TP SCH ×2 (08:08→19:43)
[2019-03-14] MEDS: ASCORBIC ACID 500 MG TABLET GT SCH (08:43)
[2019-03-14] MEDS: ACETAMINOPHEN 650 MG/20 ML UDC- SA PATIENTS-PAIN ONLY GT SCH ×2 (08:43→20:48)
[2019-03-14] MEDS: ZINC SULFATE 220 MG CAPSULE GT SCH (08:43)
[2019-03-14] MEDS: CHLORHEXIDINE GLUCONATE 15 ML UDC MM SCH ×2 (08:43→20:49)
[2019-03-14] MEDS: LEVETIRACETAM SOL (5 ML) 100 MG/ML UDC GT SCH ×2 (08:43→20:48)
[2019-03-14] MEDS: PROSTAT (PYXIS) 30 ML UDC GT SCH ×3 (08:43→16:50)
[2019-03-14] MEDS: ACIDOPHILUS/BULGARICUS 1 EACH TAB.CHEW GT SCH ×2 (08:43→16:50)
[2019-03-14] MEDS: TRIAMCINOLONE ACETONIDE 0.1% CR 15 GM TUBE TP SCH ×2 (08:43→20:49)
[2019-03-14] MEDS: CARBOXYMETHYLCELLULOSE SODIUM 0.4 ML DROPERETTE EACHEYE SCH (08:43)
[2019-03-14] MEDS: MULTIVIT W/MINERALS 1 TAB TABLET GT SCH (08:43)
[2019-03-14] MEDS: COD LIVER OIL/ZINC OXIDE 120 GM TUBE TP SCH ×2 (08:44→20:49)
[2019-03-14] MEDS: NYSTATIN CREAM 15 GM TUBE TP SCH ×2 (08:44→20:49)
[2019-03-14] MEDS: THERAHONEY GEL 1.5 OZ TUBE TP SCH ×2 (08:44→20:49)
--- NOTE | 2019-03-14 19:53 | NUR ---
RT NOTE: RECEIVED TRACH PT ON COOL AEROSOL. AMBU BAG @ BEDSIDE. Q6 BREATHING TX GIVEN PER MD ORDERS WITH NO ADVERSE REACTION NOTED. SX DONE PRN. TRACH PATENT AND SECURED. TRACH CARE DONE. NO RESP DISTRESS NOTED AT THIS TIME. WILL CONTINUE TO MONITOR PT Addendum: 03/15/19 at 0246 by RACHEL AVALOS RT Amended: Links added.
[2019-03-14 20:24] VITALS: BP 104/58
[2019-03-15 00:09] VITALS: BP 118/61
[2019-03-15] MEDS: ALBUTEROL FS 2.5 MG/3 ML VIAL.NEB NEB SCH ×4 (01:34→20:17)
[2019-03-15] MEDS: IPRATROPIUM NEB FS 0.5 MG/2.5 ML AMPUL.NEB IH SCH ×4 (01:34→20:17)
[2019-03-15] MEDS: GLUCERNA 1.2 1,000 ML BOTTLE GT PRN (04:45)
[2019-03-15] MEDS: OMEPRAZOLE 20 MG CAPSULE.DR GT SCH (05:34)
[2019-03-15] MEDS: METOCLOPRAMIDE HCL 10 MG/10 ML UDC GT SCH ×4 (05:34→23:41)
[2019-03-15] MEDS: LEVOTHYROXINE SODIUM 88 MCG TABLET GT SCH (05:34)
[2019-03-15 07:39] VITALS: BP 109/71
[2019-03-15] MEDS: MULTIVIT W/MINERALS 1 TAB TABLET GT SCH (09:00)
[2019-03-15] MEDS: TRIAMCINOLONE ACETONIDE 0.1% CR 15 GM TUBE TP SCH ×2 (09:00→20:43)
[2019-03-15] MEDS: CHLORHEXIDINE GLUCONATE 15 ML UDC MM SCH ×2 (09:00→20:43)
[2019-03-15] MEDS: PROSTAT (PYXIS) 30 ML UDC GT SCH ×3 (09:00→16:52)
[2019-03-15] MEDS: CARBOXYMETHYLCELLULOSE SODIUM 0.4 ML DROPERETTE EACHEYE SCH (09:00)
[2019-03-15] MEDS: THERAHONEY GEL 1.5 OZ TUBE TP SCH ×2 (09:00→20:44)
[2019-03-15] MEDS: ZINC SULFATE 220 MG CAPSULE GT SCH (09:00)
[2019-03-15] MEDS: NYSTATIN CREAM 15 GM TUBE TP SCH ×2 (09:00→20:44)
[2019-03-15] MEDS: COD LIVER OIL/ZINC OXIDE 120 GM TUBE TP SCH ×2 (09:00→20:43)
[2019-03-15] MEDS: ASCORBIC ACID 500 MG TABLET GT SCH (09:00)
[2019-03-15] MEDS: ACETAMINOPHEN 650 MG/20 ML UDC- SA PATIENTS-PAIN ONLY GT SCH ×2 (09:00→20:43)
[2019-03-15] MEDS: ACIDOPHILUS/BULGARICUS 1 EACH TAB.CHEW GT SCH ×2 (09:00→16:52)
[2019-03-15] MEDS: LEVETIRACETAM SOL (5 ML) 100 MG/ML UDC GT SCH ×2 (09:00→20:43)
[2019-03-15] MEDS: HYDROGEN PEROXIDE 480 ML BOTTLE TP SCH ×2 (09:27→20:44)
[2019-03-15 22:03] VITALS: BP 116/67
[2019-03-16] MEDS: IPRATROPIUM NEB FS 0.5 MG/2.5 ML AMPUL.NEB IH SCH ×4 (01:53→20:04)
[2019-03-16] MEDS: ALBUTEROL FS 2.5 MG/3 ML VIAL.NEB NEB SCH ×4 (01:53→20:04)
[2019-03-16] MEDS: OMEPRAZOLE 20 MG CAPSULE.DR GT SCH (05:39)
[2019-03-16] MEDS: METOCLOPRAMIDE HCL 10 MG/10 ML UDC GT SCH ×4 (05:39→23:12)
[2019-03-16] MEDS: GLUCERNA 1.2 1,000 ML BOTTLE GT PRN (05:40)
[2019-03-16] MEDS: LEVOTHYROXINE SODIUM 88 MCG TABLET GT SCH (05:40)
[2019-03-16 08:05] VITALS: BP 134/74
[2019-03-16] MEDS: HYDROGEN PEROXIDE 480 ML BOTTLE TP SCH ×2 (09:00→20:04)
[2019-03-16] MEDS: LEVETIRACETAM SOL (5 ML) 100 MG/ML UDC GT SCH ×2 (09:37→20:57)
[2019-03-16] MEDS: ACIDOPHILUS/BULGARICUS 1 EACH TAB.CHEW GT SCH ×2 (09:37→16:30)
[2019-03-16] MEDS: MULTIVIT W/MINERALS 1 TAB TABLET GT SCH (09:37)
[2019-03-16] MEDS: PROSTAT (PYXIS) 30 ML UDC GT SCH ×3 (09:37→16:30)
[2019-03-16] MEDS: CARBOXYMETHYLCELLULOSE SODIUM 0.4 ML DROPERETTE EACHEYE SCH (09:37)
[2019-03-16] MEDS: ZINC SULFATE 220 MG CAPSULE GT SCH (09:38)
[2019-03-16] MEDS: CHLORHEXIDINE GLUCONATE 15 ML UDC MM SCH ×2 (09:38→20:58)
[2019-03-16] MEDS: ACETAMINOPHEN 650 MG/20 ML UDC- SA PATIENTS-PAIN ONLY GT SCH ×2 (09:38→20:58)
[2019-03-16] MEDS: ASCORBIC ACID 500 MG TABLET GT SCH (09:38)
[2019-03-16] MEDS: TRIAMCINOLONE ACETONIDE 0.1% CR 15 GM TUBE TP SCH ×2 (10:38→20:58)
[2019-03-16] MEDS: COD LIVER OIL/ZINC OXIDE 120 GM TUBE TP SCH ×2 (10:38→20:58)
[2019-03-16] MEDS: THERAHONEY GEL 1.5 OZ TUBE TP SCH ×2 (10:38→20:59)
[2019-03-16] MEDS: NYSTATIN CREAM 15 GM TUBE TP SCH ×2 (10:38→20:59)
[2019-03-16 21:14] VITALS: BP 124/65
[2019-03-17] MEDS: ALBUTEROL FS 2.5 MG/3 ML VIAL.NEB NEB SCH ×4 (01:44→19:27)
[2019-03-17] MEDS: IPRATROPIUM NEB FS 0.5 MG/2.5 ML AMPUL.NEB IH SCH ×4 (01:44→19:27)
[2019-03-17] MEDS: METOCLOPRAMIDE HCL 10 MG/10 ML UDC GT SCH ×3 (05:05→17:01)
[2019-03-17] MEDS: OMEPRAZOLE 20 MG CAPSULE.DR GT SCH (05:05)
[2019-03-17] MEDS: LEVOTHYROXINE SODIUM 88 MCG TABLET GT SCH (05:06)
[2019-03-17] MEDS: GLUCERNA 1.2 1,000 ML BOTTLE GT PRN (05:06)
--- NOTE | 2019-03-17 05:49 | NUR ---
RT NOTE PATIENT RECEIVED ON TRACH WITH COOL AEROSOL. TRACH IS PATENT AND SECURED. SPARE TRACH AND AMBU BAG IS AT BEDSIDE. PATIENT HAS EQUAL CHEST RISE WITH COARSE BILATERAL BREATH SOUNDS. SUCTION MODERATE AMOUNT OF THICK GREEN SECRETIONS T/O THE NIGHT. Q6 TREATMENTS GIVEN WITH NO ADVERSE REACTIONS. NO SOB NOTED. Addendum: 03/17/19 at 0551 by WANDA NAM RT Amended: Links added.
[2019-03-17 07:34] VITALS: BP 125/73
[2019-03-17] MEDS: ACIDOPHILUS/BULGARICUS 1 EACH TAB.CHEW GT SCH ×2 (09:00→16:34)
[2019-03-17] MEDS: THERAHONEY GEL 1.5 OZ TUBE TP SCH ×2 (09:00→20:10)
[2019-03-17] MEDS: ACETAMINOPHEN 650 MG/20 ML UDC- SA PATIENTS-PAIN ONLY GT SCH ×2 (09:00→20:09)
[2019-03-17] MEDS: CHLORHEXIDINE GLUCONATE 15 ML UDC MM SCH ×2 (09:00→20:09)
[2019-03-17] MEDS: TRIAMCINOLONE ACETONIDE 0.1% CR 15 GM TUBE TP SCH ×2 (09:00→20:09)
[2019-03-17] MEDS: NYSTATIN CREAM 15 GM TUBE TP SCH ×2 (09:00→20:10)
[2019-03-17] MEDS: ZINC SULFATE 220 MG CAPSULE GT SCH (09:00)
[2019-03-17] MEDS: MULTIVIT W/MINERALS 1 TAB TABLET GT SCH (09:00)
[2019-03-17] MEDS: PROSTAT (PYXIS) 30 ML UDC GT SCH ×3 (09:00→16:34)
[2019-03-17] MEDS: LEVETIRACETAM SOL (5 ML) 100 MG/ML UDC GT SCH ×2 (09:00→20:07)
[2019-03-17] MEDS: HYDROGEN PEROXIDE 480 ML BOTTLE TP SCH ×2 (09:00→19:27)
[2019-03-17] MEDS: ASCORBIC ACID 500 MG TABLET GT SCH (09:00)
[2019-03-17] MEDS: COD LIVER OIL/ZINC OXIDE 120 GM TUBE TP SCH ×2 (09:00→20:10)
[2019-03-17] MEDS: CARBOXYMETHYLCELLULOSE SODIUM 0.4 ML DROPERETTE EACHEYE SCH (09:00)
--- NOTE | 2019-03-17 10:43 | NUR ---
RT NOTE ROUTINE TRACH TUBE CHANGE DONE, MINIMAL BLEEDING NOTED, NURSE MADE AWARE WILL MONITOR CLOSELY
--- NOTE | 2019-03-17 19:38 | NUR ---
RT NOTE: RECEIVED TRACH PT ON COOL AEROSOL. AMBU BAG @ BEDSIDE. Q6 BREATHING TX GIVEN PER MD ORDERS WITH NO ADVERSE REACTION NOTED. SX DONE PRN. TRACH PATENT AND SECURED. TRACH CARE DONE. NO RESP DISTRESS NOTED AT THIS TIME. WILL CONTINUE TO MONITOR PT Addendum: 03/18/19 at 0253 by RACHEL AVALOS RT Amended: Links added.
[2019-03-17 19:49] VITALS: BP 125/80
[2019-03-18] MEDS: METOCLOPRAMIDE HCL 10 MG/10 ML UDC GT SCH ×5 (00:41→23:56)
[2019-03-18] MEDS: IPRATROPIUM NEB FS 0.5 MG/2.5 ML AMPUL.NEB IH SCH ×4 (01:41→19:37)
[2019-03-18] MEDS: ALBUTEROL FS 2.5 MG/3 ML VIAL.NEB NEB SCH ×4 (01:41→19:37)
[2019-03-18] MEDS: GLUCERNA 1.2 1,000 ML BOTTLE GT PRN (05:24)
[2019-03-18] MEDS: OMEPRAZOLE 20 MG CAPSULE.DR GT SCH (05:24)
[2019-03-18] MEDS: LEVOTHYROXINE SODIUM 88 MCG TABLET GT SCH (05:24)
[2019-03-18 07:27] VITALS: BP 115/71
[2019-03-18] MEDS: ACIDOPHILUS/BULGARICUS 1 EACH TAB.CHEW GT SCH ×2 (09:00→16:52)
[2019-03-18] MEDS: CARBOXYMETHYLCELLULOSE SODIUM 0.4 ML DROPERETTE EACHEYE SCH (09:00)
[2019-03-18] MEDS: ZINC SULFATE 220 MG CAPSULE GT SCH (09:00)
[2019-03-18] MEDS: MULTIVIT W/MINERALS 1 TAB TABLET GT SCH (09:00)
[2019-03-18] MEDS: CHLORHEXIDINE GLUCONATE 15 ML UDC MM SCH ×2 (09:00→20:40)
[2019-03-18] MEDS: LEVETIRACETAM SOL (5 ML) 100 MG/ML UDC GT SCH ×2 (09:00→20:34)
[2019-03-18] MEDS: ACETAMINOPHEN 650 MG/20 ML UDC- SA PATIENTS-PAIN ONLY GT SCH ×2 (09:00→20:36)
[2019-03-18] MEDS: ASCORBIC ACID 500 MG TABLET GT SCH (09:00)
[2019-03-18] MEDS: PROSTAT (PYXIS) 30 ML UDC GT SCH ×3 (09:00→16:52)
[2019-03-18] MEDS: HYDROGEN PEROXIDE 480 ML BOTTLE TP SCH ×2 (09:05→19:37)
[2019-03-18] MEDS: TRIAMCINOLONE ACETONIDE 0.1% CR 15 GM TUBE TP SCH ×2 (10:00→21:43)
[2019-03-18] MEDS: COD LIVER OIL/ZINC OXIDE 120 GM TUBE TP SCH ×2 (10:00→21:43)
[2019-03-18] MEDS: THERAHONEY GEL 1.5 OZ TUBE TP SCH ×2 (10:00→21:43)
[2019-03-18] MEDS: NYSTATIN CREAM 15 GM TUBE TP SCH ×2 (10:00→21:43)
--- NOTE | 2019-03-18 10:46 | NUR ---
PT RECEIVE STABLE ON 28%FIO2 C/A VIA T-BAR, TRACH PATENT AND SECURED, YULISSA GREEN AND RUI BAG IS AT BEDSIDE , WILL CONTINUE TO MONITOR Addendum: 03/18/19 at 1048 by ABIEL DERAS RT Amended: Links added.
[2019-03-18 20:16] VITALS: BP 122/69
[2019-03-19] MEDS: ALBUTEROL FS 2.5 MG/3 ML VIAL.NEB NEB SCH ×4 (01:49→19:59)
[2019-03-19] MEDS: IPRATROPIUM NEB FS 0.5 MG/2.5 ML AMPUL.NEB IH SCH ×4 (01:49→19:59)
[2019-03-19] MEDS: OMEPRAZOLE 20 MG CAPSULE.DR GT SCH (05:55)
[2019-03-19] MEDS: METOCLOPRAMIDE HCL 10 MG/10 ML UDC GT SCH ×3 (05:55→18:50)
[2019-03-19] MEDS: LEVOTHYROXINE SODIUM 88 MCG TABLET GT SCH (05:56)
[2019-03-19 07:34] VITALS: BP 130/74
[2019-03-19] MEDS: ACIDOPHILUS/BULGARICUS 1 EACH TAB.CHEW GT SCH ×2 (08:26→16:36)
[2019-03-19] MEDS: ASCORBIC ACID 500 MG TABLET GT SCH (08:26)
[2019-03-19] MEDS: CHLORHEXIDINE GLUCONATE 15 ML UDC MM SCH ×2 (08:26→20:32)
[2019-03-19] MEDS: PROSTAT (PYXIS) 30 ML UDC GT SCH ×3 (08:26→16:36)
[2019-03-19] MEDS: CARBOXYMETHYLCELLULOSE SODIUM 0.4 ML DROPERETTE EACHEYE SCH (08:26)
[2019-03-19] MEDS: ZINC SULFATE 220 MG CAPSULE GT SCH (08:26)
[2019-03-19] MEDS: MULTIVIT W/MINERALS 1 TAB TABLET GT SCH (08:26)
[2019-03-19] MEDS: LEVETIRACETAM SOL (5 ML) 100 MG/ML UDC GT SCH ×2 (08:26→20:32)
[2019-03-19] MEDS: ACETAMINOPHEN 650 MG/20 ML UDC- SA PATIENTS-PAIN ONLY GT SCH ×2 (08:26→20:32)
[2019-03-19] MEDS: NYSTATIN CREAM 15 GM TUBE TP SCH ×2 (09:00→20:33)
[2019-03-19] MEDS: TRIAMCINOLONE ACETONIDE 0.1% CR 15 GM TUBE TP SCH ×2 (09:00→20:32)
[2019-03-19] MEDS: THERAHONEY GEL 1.5 OZ TUBE TP SCH ×2 (09:00→20:33)
[2019-03-19] MEDS: COD LIVER OIL/ZINC OXIDE 120 GM TUBE TP SCH ×2 (09:00→20:32)
--- NOTE | 2019-03-19 09:15 | NUR ---
RT PT RECEIVED ON COOL AEROSOL AT 5 LPM. PT IS KENNYD, KATIA 6. AMBU BAG AT HEAD OF BED. SPARE TRACH AT BEDSIDE. MINIMAL, THICK SECRETIONS SECRETIONS SUCTIONED. PT IS IN NO APPARENT RESPIRATORY DISTRESS. WILL CONTINUE TO MONITOR. Addendum: 03/19/19 at 0916 by MONIQUE HOUSER RT Amended: Links added.
[2019-03-19 20:40] VITALS: BP 127/74
[2019-03-19] MEDS: HYDROGEN PEROXIDE 480 ML BOTTLE TP SCH (21:00)
[2019-03-20] MEDS: ALBUTEROL FS 2.5 MG/3 ML VIAL.NEB NEB SCH ×4 (01:18→19:51)
[2019-03-20] MEDS: IPRATROPIUM NEB FS 0.5 MG/2.5 ML AMPUL.NEB IH SCH ×4 (01:18→19:51)
[2019-03-20] MEDS: GLUCERNA 1.2 1,000 ML BOTTLE GT PRN (03:37)
[2019-03-20] MEDS: OMEPRAZOLE 20 MG CAPSULE.DR GT SCH (05:18)
[2019-03-20] MEDS: METOCLOPRAMIDE HCL 10 MG/10 ML UDC GT SCH ×5 (05:18→23:58)
[2019-03-20] MEDS: LEVOTHYROXINE SODIUM 88 MCG TABLET GT SCH (05:18)
[2019-03-20 07:35] VITALS: BP 114/61
[2019-03-20] MEDS: HYDROGEN PEROXIDE 480 ML BOTTLE TP SCH ×2 (08:22→20:20)
[2019-03-20] MEDS: THERAHONEY GEL 1.5 OZ TUBE TP SCH ×2 (09:00→21:05)
[2019-03-20] MEDS: COD LIVER OIL/ZINC OXIDE 120 GM TUBE TP SCH ×2 (09:00→21:05)
[2019-03-20] MEDS: NYSTATIN CREAM 15 GM TUBE TP SCH ×2 (09:00→21:05)
[2019-03-20] MEDS: ASCORBIC ACID 500 MG TABLET GT SCH (09:00)
[2019-03-20] MEDS: PROSTAT (PYXIS) 30 ML UDC GT SCH ×3 (09:00→16:21)
[2019-03-20] MEDS: TRIAMCINOLONE ACETONIDE 0.1% CR 15 GM TUBE TP SCH ×2 (09:00→21:05)
[2019-03-20] MEDS: LEVETIRACETAM SOL (5 ML) 100 MG/ML UDC GT SCH ×2 (09:00→20:36)
[2019-03-20] MEDS: ACIDOPHILUS/BULGARICUS 1 EACH TAB.CHEW GT SCH ×2 (09:00→16:21)
[2019-03-20] MEDS: CARBOXYMETHYLCELLULOSE SODIUM 0.4 ML DROPERETTE EACHEYE SCH (09:00)
[2019-03-20] MEDS: CHLORHEXIDINE GLUCONATE 15 ML UDC MM SCH ×2 (09:00→20:37)
[2019-03-20] MEDS: ACETAMINOPHEN 650 MG/20 ML UDC- SA PATIENTS-PAIN ONLY GT SCH ×2 (09:00→20:37)
[2019-03-20] MEDS: MULTIVIT W/MINERALS 1 TAB TABLET GT SCH (09:00)
[2019-03-20] MEDS: ZINC SULFATE 220 MG CAPSULE GT SCH (09:00)
--- NOTE | 2019-03-20 12:28 | NUR ---
Family was not able to attend March Family Support Group today held from 11 am-12 noon. Family will be invited and encouraged to attend next month's Family Support Group.
--- NOTE | 2019-03-20 14:28 | NUR ---
Family Invitation to IDT:Donor Recruitment Manager left voicemail for the patients daughterReyna [phone] inviting family to attend or participate via phone conference in the IDT Plan of Care Conference being held this Friday, March 22, 2019 from 12:30pm-1:30pm in the activities room.
--- NOTE | 2019-03-20 17:11 | NUR ---
RT NOTE RECEIVED PATIENT ON TRACH WITH COOL AEROSOL. TRACH IS PATENT AND SECURED. SPARE TRACH AND AMBU BAG IS AT BEDSIDE. PATIENT HAS EQUAL CHEST RISE WITH COARSE BILATERAL BREATH SOUNDS. SUCTION MODERATE AMOUNT OF THICK GREEN/WHITE SECRETIONS TROUGH OUT THE DAY. TRACH CARE WAS PERFORMED. BREATHING TREATMENTS GIVEN WITH NO ADVERSE REACTION. NO SOB NOTED. Addendum: 03/20/19 at 1711 by WANDA NAM RT Amended: Links added.
--- NOTE | 2019-03-20 20:42 | NUR ---
PT RCVD TRACH'D ON COOL AEROSOL WITH CHARTED SETTINGS. PT NOLVIA TX WELL. SX DONE. PT TRACH IS PATENT AND SECURE. AMBU BAG AT BEDSIDE. NO SOB NOTED. Addendum: 03/20/19 at 2042 by ALEXEY MADRID RT Amended: Links added.
[2019-03-21] MEDS: IPRATROPIUM NEB FS 0.5 MG/2.5 ML AMPUL.NEB IH SCH ×4 (00:42→20:21)
[2019-03-21] MEDS: ALBUTEROL FS 2.5 MG/3 ML VIAL.NEB NEB SCH ×4 (00:42→20:21)
[2019-03-21] MEDS: LEVOTHYROXINE SODIUM 88 MCG TABLET GT SCH (05:37)
[2019-03-21] MEDS: OMEPRAZOLE 20 MG CAPSULE.DR GT SCH (05:37)
[2019-03-21] MEDS: METOCLOPRAMIDE HCL 10 MG/10 ML UDC GT SCH ×3 (05:37→18:05)
[2019-03-21 07:26] VITALS: BP 138/66
[2019-03-21] MEDS: HYDROGEN PEROXIDE 480 ML BOTTLE TP SCH ×2 (08:11→20:35)
[2019-03-21] MEDS: ACIDOPHILUS/BULGARICUS 1 EACH TAB.CHEW GT SCH ×2 (08:49→16:12)
[2019-03-21] MEDS: LEVETIRACETAM SOL (5 ML) 100 MG/ML UDC GT SCH ×2 (08:49→21:45)
[2019-03-21] MEDS: CARBOXYMETHYLCELLULOSE SODIUM 0.4 ML DROPERETTE EACHEYE SCH (08:49)
[2019-03-21] MEDS: MULTIVIT W/MINERALS 1 TAB TABLET GT SCH (08:49)
[2019-03-21] MEDS: PROSTAT (PYXIS) 30 ML UDC GT SCH ×3 (08:49→16:12)
[2019-03-21] MEDS: CHLORHEXIDINE GLUCONATE 15 ML UDC MM SCH ×2 (08:50→21:45)
[2019-03-21] MEDS: COD LIVER OIL/ZINC OXIDE 120 GM TUBE TP SCH ×2 (08:50→21:45)
[2019-03-21] MEDS: THERAHONEY GEL 1.5 OZ TUBE TP SCH ×2 (08:50→21:45)
[2019-03-21] MEDS: ASCORBIC ACID 500 MG TABLET GT SCH (08:50)
[2019-03-21] MEDS: ZINC SULFATE 220 MG CAPSULE GT SCH (08:50)
[2019-03-21] MEDS: NYSTATIN CREAM 15 GM TUBE TP SCH ×2 (08:50→21:45)
[2019-03-21] MEDS: ACETAMINOPHEN 650 MG/20 ML UDC- SA PATIENTS-PAIN ONLY GT SCH ×2 (08:50→21:45)
[2019-03-21] MEDS: TRIAMCINOLONE ACETONIDE 0.1% CR 15 GM TUBE TP SCH ×2 (09:00→21:45)
--- NOTE | 2019-03-21 17:23 | NUR ---
RT NOTE RECEIVED PATIENT ON TRACH WITH COOL AEROSOL. TRACH IS PATENT AND SECURED. SPARE TRACH AND AMBU BAG IS AT BEDSIDE. PATIENT HAS EQUAL CHEST RISE WITH COARSE BILATERAL BREATH SOUNDS. SUCTION SMALL AMOUNT OF THICK GREEN/WHITE SECRETIONS TROUGH OUT THE DAY. TRACH CARE WAS PERFORMED. BREATHING TREATMENTS GIVEN WITH NO ADVERSE REACTION. NO SOB NOTED. Addendum: 03/21/19 at 1724 by WANDA NAM RT Amended: Links added.
[2019-03-21 20:11] VITALS: BP 118/64
--- NOTE | 2019-03-21 21:21 | NUR ---
PT RECEIVE STABLE ON C/A @ 28% FIO2, TRACH PATENT AND SECURED, BACK UP NORMA AND RUI BAG IS AT BEDSIDE, WILL CONTINUE TO MONITOR Addendum: 03/21/19 at 2121 by ABIEL DERAS RT Amended: Links added.
[2019-03-22] MEDS: METOCLOPRAMIDE HCL 10 MG/10 ML UDC GT SCH ×4 (00:24→17:56)
[2019-03-22] MEDS: ALBUTEROL FS 2.5 MG/3 ML VIAL.NEB NEB SCH ×4 (01:33→19:50)
[2019-03-22] MEDS: IPRATROPIUM NEB FS 0.5 MG/2.5 ML AMPUL.NEB IH SCH ×4 (01:33→19:50)
[2019-03-22] MEDS: GLUCERNA 1.2 1,000 ML BOTTLE GT PRN (03:17)
[2019-03-22] MEDS: OMEPRAZOLE 20 MG CAPSULE.DR GT SCH (05:57)
[2019-03-22] MEDS: LEVOTHYROXINE SODIUM 88 MCG TABLET GT SCH (05:57)
[2019-03-22 07:48] VITALS: BP 109/52
--- NOTE | 2019-03-22 08:00 | NUR ---
RT PT RECEIVED ON COOL AEROSOL. TRACHED WITH SHILEY 6. AMBU BAG AT HEAD OF BED. SPARE TRACH AT HEAD OF BED. LITTLE TO NO SECRETIONS SUCTIONED. NO RESPIRATORY DISTRESS NOTED. WILL CONTINUE TO MONITOR. Addendum: 03/22/19 at 1204 by MONIQUE HOUSER RT Amended: Links added.
[2019-03-22] MEDS: PROSTAT (PYXIS) 30 ML UDC GT SCH ×3 (09:00→16:30)
[2019-03-22] MEDS: ZINC SULFATE 220 MG CAPSULE GT SCH (09:00)
[2019-03-22] MEDS: LEVETIRACETAM SOL (5 ML) 100 MG/ML UDC GT SCH ×2 (09:00→20:17)
[2019-03-22] MEDS: HYDROGEN PEROXIDE 480 ML BOTTLE TP SCH ×2 (09:00→21:00)
[2019-03-22] MEDS: CARBOXYMETHYLCELLULOSE SODIUM 0.4 ML DROPERETTE EACHEYE SCH (09:00)
[2019-03-22] MEDS: TRIAMCINOLONE ACETONIDE 0.1% CR 15 GM TUBE TP SCH ×2 (09:00→20:17)
[2019-03-22] MEDS: CHLORHEXIDINE GLUCONATE 15 ML UDC MM SCH ×2 (09:00→20:17)
[2019-03-22] MEDS: ACETAMINOPHEN 650 MG/20 ML UDC- SA PATIENTS-PAIN ONLY GT SCH ×2 (09:00→20:17)
[2019-03-22] MEDS: NYSTATIN CREAM 15 GM TUBE TP SCH ×2 (09:00→20:18)
[2019-03-22] MEDS: ACIDOPHILUS/BULGARICUS 1 EACH TAB.CHEW GT SCH ×2 (09:00→16:27)
[2019-03-22] MEDS: COD LIVER OIL/ZINC OXIDE 120 GM TUBE TP SCH ×2 (09:00→20:18)
[2019-03-22] MEDS: THERAHONEY GEL 1.5 OZ TUBE TP SCH ×2 (09:00→20:18)
[2019-03-22] MEDS: ASCORBIC ACID 500 MG TABLET GT SCH (09:00)
[2019-03-22] MEDS: MULTIVIT W/MINERALS 1 TAB TABLET GT SCH (09:00)
--- NOTE | 2019-03-22 15:35 | NUR ---
Plan of Care Conference took place today. The patients responsible republican/daughter, Reyna Galindo [phone] was not able to attend or participate via phone conference. 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 Charge Nurse also discussed Sacral Wound Tx: apply Triamcinolone cream 0.1% & Nystatin q shift x [address] Monet and Interdisciplinary team discussed the plan of care in detail. Current orders as well as treatments and medications were reviewed. Please see other disciplines IDT notes for further details.
[2019-03-22 20:36] VITALS: BP 123/70
[2019-03-23] MEDS: ALBUTEROL FS 2.5 MG/3 ML VIAL.NEB NEB SCH ×4 (00:31→19:35)
[2019-03-23] MEDS: IPRATROPIUM NEB FS 0.5 MG/2.5 ML AMPUL.NEB IH SCH ×4 (00:31→19:35)
[2019-03-23] MEDS: METOCLOPRAMIDE HCL 10 MG/10 ML UDC GT SCH ×5 (00:37→23:41)
[2019-03-23] MEDS: LEVOTHYROXINE SODIUM 88 MCG TABLET GT SCH (05:29)
[2019-03-23] MEDS: OMEPRAZOLE 20 MG CAPSULE.DR GT SCH (05:29)
[2019-03-23 07:57] VITALS: BP 115/62
[2019-03-23] MEDS: HYDROGEN PEROXIDE 480 ML BOTTLE TP SCH ×2 (08:23→21:06)
[2019-03-23] MEDS: CARBOXYMETHYLCELLULOSE SODIUM 0.4 ML DROPERETTE EACHEYE SCH (08:34)
[2019-03-23] MEDS: LEVETIRACETAM SOL (5 ML) 100 MG/ML UDC GT SCH ×2 (08:34→21:35)
[2019-03-23] MEDS: ACIDOPHILUS/BULGARICUS 1 EACH TAB.CHEW GT SCH ×2 (08:35→16:09)
[2019-03-23] MEDS: MULTIVIT W/MINERALS 1 TAB TABLET GT SCH (08:36)
[2019-03-23] MEDS: PROSTAT (PYXIS) 30 ML UDC GT SCH ×3 (08:36→16:09)
[2019-03-23] MEDS: ACETAMINOPHEN 650 MG/20 ML UDC- SA PATIENTS-PAIN ONLY GT SCH ×2 (08:36→21:36)
[2019-03-23] MEDS: ZINC SULFATE 220 MG CAPSULE GT SCH (08:37)
[2019-03-23] MEDS: CHLORHEXIDINE GLUCONATE 15 ML UDC MM SCH ×2 (08:37→21:36)
[2019-03-23] MEDS: ASCORBIC ACID 500 MG TABLET GT SCH (08:37)
[2019-03-23] MEDS: TRIAMCINOLONE ACETONIDE 0.1% CR 15 GM TUBE TP SCH ×2 (09:36→21:36)
[2019-03-23] MEDS: NYSTATIN CREAM 15 GM TUBE TP SCH ×2 (09:36→21:36)
[2019-03-23] MEDS: COD LIVER OIL/ZINC OXIDE 120 GM TUBE TP SCH ×2 (09:36→21:36)
[2019-03-23] MEDS: THERAHONEY GEL 1.5 OZ TUBE TP SCH ×2 (09:36→21:36)
[2019-03-24] MEDS: ALBUTEROL FS 2.5 MG/3 ML VIAL.NEB NEB SCH ×4 (00:45→20:04)
[2019-03-24] MEDS: IPRATROPIUM NEB FS 0.5 MG/2.5 ML AMPUL.NEB IH SCH ×4 (00:45→20:04)
[2019-03-24] MEDS: GLUCERNA 1.2 1,000 ML BOTTLE GT PRN (02:27)
[2019-03-24 04:13] VITALS: BP 108/68
[2019-03-24] MEDS: LEVOTHYROXINE SODIUM 88 MCG TABLET GT SCH (05:11)
[2019-03-24] MEDS: METOCLOPRAMIDE HCL 10 MG/10 ML UDC GT SCH ×3 (05:11→18:16)
[2019-03-24] MEDS: OMEPRAZOLE 20 MG CAPSULE.DR GT SCH (05:11)
[2019-03-24 07:41] VITALS: BP 108/52
[2019-03-24] MEDS: MULTIVIT W/MINERALS 1 TAB TABLET GT SCH (09:00)
[2019-03-24] MEDS: TRIAMCINOLONE ACETONIDE 0.1% CR 15 GM TUBE TP SCH ×2 (09:00→21:37)
[2019-03-24] MEDS: CARBOXYMETHYLCELLULOSE SODIUM 0.4 ML DROPERETTE EACHEYE SCH (09:00)
[2019-03-24] MEDS: ASCORBIC ACID 500 MG TABLET GT SCH (09:00)
[2019-03-24] MEDS: ACIDOPHILUS/BULGARICUS 1 EACH TAB.CHEW GT SCH ×2 (09:00→17:00)
[2019-03-24] MEDS: NYSTATIN CREAM 15 GM TUBE TP SCH ×2 (09:00→21:37)
[2019-03-24] MEDS: PROSTAT (PYXIS) 30 ML UDC GT SCH ×3 (09:00→17:00)
[2019-03-24] MEDS: COD LIVER OIL/ZINC OXIDE 120 GM TUBE TP SCH ×2 (09:00→21:37)
[2019-03-24] MEDS: HYDROGEN PEROXIDE 480 ML BOTTLE TP SCH ×2 (09:00→20:04)
[2019-03-24] MEDS: LEVETIRACETAM SOL (5 ML) 100 MG/ML UDC GT SCH ×2 (09:00→21:36)
[2019-03-24] MEDS: THERAHONEY GEL 1.5 OZ TUBE TP SCH ×2 (09:00→21:37)
[2019-03-24] MEDS: ZINC SULFATE 220 MG CAPSULE GT SCH (09:00)
[2019-03-24] MEDS: CHLORHEXIDINE GLUCONATE 15 ML UDC MM SCH ×2 (09:00→21:37)
[2019-03-24] MEDS: ACETAMINOPHEN 650 MG/20 ML UDC- SA PATIENTS-PAIN ONLY GT SCH ×2 (09:00→21:36)
[2019-03-24 20:31] VITALS: BP 121/69
--- NOTE | 2019-03-24 21:27 | NUR ---
RT NOTE RECEIVED PATIENT ON TRACH WITH COOL AEROSOL. TRACH IS PATENT AND SECURED. SPARE TRACH AND BVM IS AT BEDSIDE. PATIENT IS STABLE. PATIENT HAD COARSE UPPER LOBES AND DIMINISHED LOWER LOBES BILATERAL BREATH SOUNDS. SUCTION SMALL AMOUNT OF THICK GREEN SECRETIONS. BREATHING TREATMENT GIVEN WITH NO ADVERSE REACTIONS. WILL CONTINUE TO MONITOR. Addendum: 03/24/19 at 2127 by WANDA NAM RT Amended: Links added.
[2019-03-25] MEDS: METOCLOPRAMIDE HCL 10 MG/10 ML UDC GT SCH ×5 (00:13→23:14)
[2019-03-25] MEDS: ALBUTEROL FS 2.5 MG/3 ML VIAL.NEB NEB SCH ×4 (01:25→19:32)
[2019-03-25] MEDS: IPRATROPIUM NEB FS 0.5 MG/2.5 ML AMPUL.NEB IH SCH ×4 (01:25→19:32)
[2019-03-25] MEDS: OMEPRAZOLE 20 MG CAPSULE.DR GT SCH (05:42)
[2019-03-25] MEDS: LEVOTHYROXINE SODIUM 88 MCG TABLET GT SCH (05:43)
[2019-03-25 07:37] VITALS: BP 123/77
[2019-03-25] MEDS: THERAHONEY GEL 1.5 OZ TUBE TP SCH ×2 (09:00→21:32)
[2019-03-25] MEDS: HYDROGEN PEROXIDE 480 ML BOTTLE TP SCH ×2 (09:00→20:17)
[2019-03-25] MEDS: ACIDOPHILUS/BULGARICUS 1 EACH TAB.CHEW GT SCH ×2 (09:00→16:14)
[2019-03-25] MEDS: TRIAMCINOLONE ACETONIDE 0.1% CR 15 GM TUBE TP SCH ×2 (09:00→21:32)
[2019-03-25] MEDS: ACETAMINOPHEN 650 MG/20 ML UDC- SA PATIENTS-PAIN ONLY GT SCH ×2 (09:00→21:32)
[2019-03-25] MEDS: ASCORBIC ACID 500 MG TABLET GT SCH (09:00)
[2019-03-25] MEDS: NYSTATIN CREAM 15 GM TUBE TP SCH ×2 (09:00→21:32)
[2019-03-25] MEDS: ZINC SULFATE 220 MG CAPSULE GT SCH (09:00)
[2019-03-25] MEDS: COD LIVER OIL/ZINC OXIDE 120 GM TUBE TP SCH ×2 (09:00→21:32)
[2019-03-25] MEDS: LEVETIRACETAM SOL (5 ML) 100 MG/ML UDC GT SCH ×2 (09:00→21:32)
[2019-03-25] MEDS: CARBOXYMETHYLCELLULOSE SODIUM 0.4 ML DROPERETTE EACHEYE SCH (09:00)
[2019-03-25] MEDS: CHLORHEXIDINE GLUCONATE 15 ML UDC MM SCH ×2 (09:00→21:32)
[2019-03-25] MEDS: PROSTAT (PYXIS) 30 ML UDC GT SCH ×3 (09:00→16:14)
[2019-03-25] MEDS: MULTIVIT W/MINERALS 1 TAB TABLET GT SCH (09:00)
[2019-03-25] MEDS: GLUCERNA 1.2 1,000 ML BOTTLE GT PRN (16:04)
--- NOTE | 2019-03-25 20:04 | NUR ---
PT RCVD TRACH'D ON COOL AEROSOL WITH CHARTED SETTINGS. PT NOLVIA TX WELL. SX DONE. PT TRACH IS PATENT AND SECURE. AMBU BAG AT BEDSIDE. NO SOB NOTED. Addendum: 03/25/19 at 2004 by ALEXEY MADRID RT Amended: Links added.
[2019-03-25 20:54] VITALS: BP 105/52
[2019-03-26] MEDS: ALBUTEROL FS 2.5 MG/3 ML VIAL.NEB NEB SCH ×4 (00:46→19:38)
[2019-03-26] MEDS: IPRATROPIUM NEB FS 0.5 MG/2.5 ML AMPUL.NEB IH SCH ×4 (00:46→19:38)
[2019-03-26] MEDS: LEVOTHYROXINE SODIUM 88 MCG TABLET GT SCH (05:49)
[2019-03-26] MEDS: OMEPRAZOLE 20 MG CAPSULE.DR GT SCH (05:49)
[2019-03-26] MEDS: METOCLOPRAMIDE HCL 10 MG/10 ML UDC GT SCH ×3 (05:49→17:09)
--- NOTE | 2019-03-26 07:55 | NUR ---
RT RECEIVED PT ON COOL AEROSOL AT 5LP. TRACHED WITH SHILEY 6. HOB AT 30 DEGREES.AMBU BAG AT HEAD OF BED. SPARE TRACH AT BEDSIDE. NO RESPIRATORY DISTRESS. WILL CONTINUE TO MONITOR. Addendum: 03/26/19 at 1140 by MONIQUE HOUSER RT Amended: Links added.
[2019-03-26 08:02] VITALS: BP 113/78
[2019-03-26] MEDS: LEVETIRACETAM SOL (5 ML) 100 MG/ML UDC GT SCH ×2 (08:47→21:40)
[2019-03-26] MEDS: ACIDOPHILUS/BULGARICUS 1 EACH TAB.CHEW GT SCH ×2 (08:47→16:38)
[2019-03-26] MEDS: CARBOXYMETHYLCELLULOSE SODIUM 0.4 ML DROPERETTE EACHEYE SCH (08:47)
[2019-03-26] MEDS: MULTIVIT W/MINERALS 1 TAB TABLET GT SCH (08:47)
[2019-03-26] MEDS: PROSTAT (PYXIS) 30 ML UDC GT SCH ×3 (08:47→16:38)
[2019-03-26] MEDS: ASCORBIC ACID 500 MG TABLET GT SCH (08:48)
[2019-03-26] MEDS: ZINC SULFATE 220 MG CAPSULE GT SCH (08:48)
[2019-03-26] MEDS: CHLORHEXIDINE GLUCONATE 15 ML UDC MM SCH ×2 (08:48→21:40)
[2019-03-26] MEDS: ACETAMINOPHEN 650 MG/20 ML UDC- SA PATIENTS-PAIN ONLY GT SCH ×2 (08:48→21:40)
[2019-03-26] MEDS: HYDROGEN PEROXIDE 480 ML BOTTLE TP SCH ×2 (09:00→20:07)
[2019-03-26] MEDS: COD LIVER OIL/ZINC OXIDE 120 GM TUBE TP SCH ×2 (09:30→21:40)
[2019-03-26] MEDS: TRIAMCINOLONE ACETONIDE 0.1% CR 15 GM TUBE TP SCH ×2 (09:30→21:40)
[2019-03-26] MEDS: THERAHONEY GEL 1.5 OZ TUBE TP SCH ×2 (09:30→21:40)
[2019-03-26] MEDS: NYSTATIN CREAM 15 GM TUBE TP SCH ×2 (09:30→21:40)
[2019-03-26] MEDS: GLUCERNA 1.2 1,000 ML BOTTLE GT PRN (11:56)
[2019-03-26 20:11] VITALS: BP 114/50
--- NOTE | 2019-03-26 20:18 | NUR ---
PT RCVD TRACH'D ON COOL AEROSOL WITH CHARTED SETTINGS. PT NOLVIA TX WELL. SX DONE. PT TRACH IS PATENT AND SECURE. AMBU BAG AT BEDSIDE. NO SOB NOTED. Addendum: 03/26/19 at 2018 by ALEXEY CLAROS Amended: Links added.
[2019-03-27] MEDS: METOCLOPRAMIDE HCL 10 MG/10 ML UDC GT SCH ×5 (00:30→23:53)
[2019-03-27] MEDS: IPRATROPIUM NEB FS 0.5 MG/2.5 ML AMPUL.NEB IH SCH ×4 (01:12→19:35)
[2019-03-27] MEDS: ALBUTEROL FS 2.5 MG/3 ML VIAL.NEB NEB SCH ×4 (01:12→19:35)
[2019-03-27] MEDS: LEVOTHYROXINE SODIUM 88 MCG TABLET GT SCH (05:55)
[2019-03-27] MEDS: OMEPRAZOLE 20 MG CAPSULE.DR GT SCH (05:55)
[2019-03-27 07:45] VITALS: BP 121/48
[2019-03-27] MEDS: HYDROGEN PEROXIDE 480 ML BOTTLE TP SCH ×2 (08:04→20:25)
--- NOTE | 2019-03-27 08:50 | NUR ---
RT PT RECEIVED ON COOL AEROSOL AT 5 LPM. TRACHED WITH SHILEY 6. NO RESPIRATORY DISTRESS. HOB AT 30 DEGRREES. AMBU BAG AT HEAD OF BED. SPARE TRACH AT BEDSIDE. WILL CONTINUE TO MONITOR. Addendum: 03/27/19 at 0904 by MONIQUE HOUSER RT Amended: Links added.
[2019-03-27] MEDS: CARBOXYMETHYLCELLULOSE SODIUM 0.4 ML DROPERETTE EACHEYE SCH (08:53)
[2019-03-27] MEDS: ACIDOPHILUS/BULGARICUS 1 EACH TAB.CHEW GT SCH ×2 (08:54→17:00)
[2019-03-27] MEDS: NYSTATIN CREAM 15 GM TUBE TP SCH ×2 (08:54→21:40)
[2019-03-27] MEDS: CHLORHEXIDINE GLUCONATE 15 ML UDC MM SCH ×2 (08:54→20:56)
[2019-03-27] MEDS: THERAHONEY GEL 1.5 OZ TUBE TP SCH ×2 (08:54→21:40)
[2019-03-27] MEDS: MULTIVIT W/MINERALS 1 TAB TABLET GT SCH (08:54)
[2019-03-27] MEDS: COD LIVER OIL/ZINC OXIDE 120 GM TUBE TP SCH ×2 (08:54→20:56)
[2019-03-27] MEDS: LEVETIRACETAM SOL (5 ML) 100 MG/ML UDC GT SCH ×2 (08:54→20:56)
[2019-03-27] MEDS: ACETAMINOPHEN 650 MG/20 ML UDC- SA PATIENTS-PAIN ONLY GT SCH ×2 (08:54→20:56)
[2019-03-27] MEDS: TRIAMCINOLONE ACETONIDE 0.1% CR 15 GM TUBE TP SCH ×2 (08:54→21:40)
[2019-03-27] MEDS: ASCORBIC ACID 500 MG TABLET GT SCH (08:54)
[2019-03-27] MEDS: ZINC SULFATE 220 MG CAPSULE GT SCH (08:54)
[2019-03-27] MEDS: PROSTAT (PYXIS) 30 ML UDC GT SCH ×3 (08:54→17:00)
[2019-03-27] MEDS: GLUCERNA 1.2 1,000 ML BOTTLE GT PRN (09:21)
--- NOTE | 2019-03-27 15:30 | NUR ---
Seen and examined by Becca Smith no new order given.
--- NOTE | 2019-03-27 20:26 | NUR ---
RT NOTE PT RECEIVED TRACHED ON COOL AEROSOL @ 28%. AMBU BAG/BACK UP TRACH @ BEDSIDE. TX GIVEN, NO ADVERSE REACTIONS NOTED. SX DONE, TRACH SECURED AND PATENT. WATER LEVEL GOOD. NO SOB NOTED AT THIS TIME. WILL MONITOR. Addendum: 03/27/19 at 2026 by LETITIA BENITES RT Amended: Links added.
[2019-03-27 20:29] VITALS: BP 98/69
[2019-03-28] MEDS: ALBUTEROL FS 2.5 MG/3 ML VIAL.NEB NEB SCH ×4 (01:23→19:42)
[2019-03-28] MEDS: IPRATROPIUM NEB FS 0.5 MG/2.5 ML AMPUL.NEB IH SCH ×4 (01:23→19:42)
[2019-03-28] MEDS: METOCLOPRAMIDE HCL 10 MG/10 ML UDC GT SCH ×4 (05:21→23:23)
[2019-03-28] MEDS: OMEPRAZOLE 20 MG CAPSULE.DR GT SCH (05:21)
[2019-03-28] MEDS: LEVOTHYROXINE SODIUM 88 MCG TABLET GT SCH (05:21)
[2019-03-28] MEDS: GLUCERNA 1.2 1,000 ML BOTTLE GT PRN (06:00)
[2019-03-28 07:50] VITALS: BP 121/58
--- NOTE | 2019-03-28 08:42 | NUR ---
SW mailed the Family Satisfaction Survey to the pt.'s daughter/DPMYLA, Reyna Galindo [phone] address on record.
[2019-03-28] MEDS: ACIDOPHILUS/BULGARICUS 1 EACH TAB.CHEW GT SCH ×2 (09:00→17:41)
[2019-03-28] MEDS: MULTIVIT W/MINERALS 1 TAB TABLET GT SCH (09:00)
[2019-03-28] MEDS: LEVETIRACETAM SOL (5 ML) 100 MG/ML UDC GT SCH ×2 (09:00→20:26)
[2019-03-28] MEDS: CARBOXYMETHYLCELLULOSE SODIUM 0.4 ML DROPERETTE EACHEYE SCH (09:00)
[2019-03-28] MEDS: CHLORHEXIDINE GLUCONATE 15 ML UDC MM SCH ×2 (09:00→20:52)
[2019-03-28] MEDS: PROSTAT (PYXIS) 30 ML UDC GT SCH ×3 (09:00→17:41)
[2019-03-28] MEDS: ASCORBIC ACID 500 MG TABLET GT SCH (09:00)
[2019-03-28] MEDS: ZINC SULFATE 220 MG CAPSULE GT SCH (09:00)
[2019-03-28] MEDS: ACETAMINOPHEN 650 MG/20 ML UDC- SA PATIENTS-PAIN ONLY GT SCH ×2 (10:10→20:26)
[2019-03-28] MEDS: NYSTATIN CREAM 15 GM TUBE TP SCH ×2 (10:40→20:53)
[2019-03-28] MEDS: THERAHONEY GEL 1.5 OZ TUBE TP SCH ×2 (10:40→20:53)
[2019-03-28] MEDS: TRIAMCINOLONE ACETONIDE 0.1% CR 15 GM TUBE TP SCH ×2 (10:40→20:53)
[2019-03-28] MEDS: COD LIVER OIL/ZINC OXIDE 120 GM TUBE TP SCH ×2 (10:40→20:53)
[2019-03-28] MEDS: HYDROGEN PEROXIDE 480 ML BOTTLE TP SCH ×2 (15:25→20:20)
--- NOTE | 2019-03-28 19:30 | NUR ---
Seen by TERESA Smith no new orders.
[2019-03-28 20:13] VITALS: BP 106/63
--- NOTE | 2019-03-28 21:20 | NUR ---
PT RECEIVE STABLE ON 28% FIO2 C/A VIA T-MASK, TRACH PATENT AND SECURED, BACK UP TRACH AND AMBU BAG IS AT BEDSIDE, WILL CONTINUE TO MONITOR
--- NOTE | 2019-03-28 21:21 | NUR ---
PT RECEIVE STABLE ON 28% FIO2 C/A VIA T-BAR, TRACH PATENT AND SECURED, BACK UP NORMA AND RUI BAG IS AT BEDSIDE, WILL CONTINUE TO MONITOR Addendum: 03/28/19 at 2122 by ABIEL DERAS RT Amended: Links added.
[2019-03-29] MEDS: ALBUTEROL FS 2.5 MG/3 ML VIAL.NEB NEB SCH ×4 (01:25→19:43)
[2019-03-29] MEDS: IPRATROPIUM NEB FS 0.5 MG/2.5 ML AMPUL.NEB IH SCH ×4 (01:25→19:43)
[2019-03-29] MEDS: GLUCERNA 1.2 1,000 ML BOTTLE GT PRN (05:07)
[2019-03-29] MEDS: OMEPRAZOLE 20 MG CAPSULE.DR GT SCH (05:07)
[2019-03-29] MEDS: METOCLOPRAMIDE HCL 10 MG/10 ML UDC GT SCH ×3 (05:07→17:01)
[2019-03-29] MEDS: LEVOTHYROXINE SODIUM 88 MCG TABLET GT SCH (05:07)
[2019-03-29 07:51] VITALS: BP 109/58
[2019-03-29] MEDS: HYDROGEN PEROXIDE 480 ML BOTTLE TP SCH ×2 (08:07→21:00)
[2019-03-29] MEDS ORDERED: TUBERCULIN,PURIF.PROT.DERIV. 5 TU/0.1 ML VIAL ID SCH (09:00)
[2019-03-29] MEDS: LEVETIRACETAM SOL (5 ML) 100 MG/ML UDC GT SCH ×2 (09:32→21:51)
[2019-03-29] MEDS: PROSTAT (PYXIS) 30 ML UDC GT SCH ×3 (09:32→17:01)
[2019-03-29] MEDS: ASCORBIC ACID 500 MG TABLET GT SCH (09:32)
[2019-03-29] MEDS: CARBOXYMETHYLCELLULOSE SODIUM 0.4 ML DROPERETTE EACHEYE SCH (09:32)
[2019-03-29] MEDS: ACIDOPHILUS/BULGARICUS 1 EACH TAB.CHEW GT SCH ×2 (09:32→17:01)
[2019-03-29] MEDS: ACETAMINOPHEN 650 MG/20 ML UDC- SA PATIENTS-PAIN ONLY GT SCH ×2 (09:32→21:52)
[2019-03-29] MEDS: MULTIVIT W/MINERALS 1 TAB TABLET GT SCH (09:32)
[2019-03-29] MEDS: ZINC SULFATE 220 MG CAPSULE GT SCH (09:32)
[2019-03-29] MEDS: TRIAMCINOLONE ACETONIDE 0.1% CR 15 GM TUBE TP SCH ×2 (09:34→21:53)
[2019-03-29] MEDS: CHLORHEXIDINE GLUCONATE 15 ML UDC MM SCH ×2 (09:34→21:53)
[2019-03-29] MEDS: NYSTATIN CREAM 15 GM TUBE TP SCH ×2 (09:34→21:53)
[2019-03-29] MEDS: COD LIVER OIL/ZINC OXIDE 120 GM TUBE TP SCH ×2 (09:34→21:53)
[2019-03-29] MEDS: THERAHONEY GEL 1.5 OZ TUBE TP SCH ×2 (09:35→21:53)
--- NOTE | 2019-03-29 15:05 | NUR ---
Family Invitation to Holiday Lunch-In: [employer] contacted the patients responsible democrat/Daughter, Reyna Galindo [phone] to invite them to attend the Family Holiday Lunch-In taking place 04/04/19 from 11:30pm-1:00pm. Call went to voicemail and SW relayed above stated information and call back number.
[2019-03-29 22:14] VITALS: BP 120/62
--- NOTE | 2019-03-29 23:11 | NUR ---
PT RECEIVE STABLE ON CA 28% FIO2 VIA T-BAR, TRACH PATENT AND SECURED , YULISSA GREEN AND RUI BAG IS AT BEDSIDE , WILL CONTINUE TO MONITOR Addendum: 03/29/19 at 2312 by ABIEL DERAS RT Amended: Links added.
[2019-03-30] MEDS: METOCLOPRAMIDE HCL 10 MG/10 ML UDC GT SCH ×4 (00:04→17:01)
[2019-03-30] MEDS: ALBUTEROL FS 2.5 MG/3 ML VIAL.NEB NEB SCH ×4 (01:52→19:43)
[2019-03-30] MEDS: IPRATROPIUM NEB FS 0.5 MG/2.5 ML AMPUL.NEB IH SCH ×4 (01:52→19:43)
[2019-03-30] MEDS: GLUCERNA 1.2 1,000 ML BOTTLE GT PRN (05:55)
[2019-03-30] MEDS: OMEPRAZOLE 20 MG CAPSULE.DR GT SCH (05:55)
[2019-03-30] MEDS: LEVOTHYROXINE SODIUM 88 MCG TABLET GT SCH (05:55)
[2019-03-30 07:42] VITALS: BP 106/62
[2019-03-30] MEDS: HYDROGEN PEROXIDE 480 ML BOTTLE TP SCH ×2 (08:05→21:44)
[2019-03-30] MEDS: ACETAMINOPHEN 650 MG/20 ML UDC- SA PATIENTS-PAIN ONLY GT SCH ×2 (09:00→21:00)
[2019-03-30] MEDS: MULTIVIT W/MINERALS 1 TAB TABLET GT SCH (09:00)
[2019-03-30] MEDS: ACIDOPHILUS/BULGARICUS 1 EACH TAB.CHEW GT SCH ×2 (09:00→16:57)
[2019-03-30] MEDS: CHLORHEXIDINE GLUCONATE 15 ML UDC MM SCH ×2 (09:00→21:00)
[2019-03-30] MEDS: ZINC SULFATE 220 MG CAPSULE GT SCH (09:00)
[2019-03-30] MEDS: LEVETIRACETAM SOL (5 ML) 100 MG/ML UDC GT SCH ×2 (09:00→21:00)
[2019-03-30] MEDS: CARBOXYMETHYLCELLULOSE SODIUM 0.4 ML DROPERETTE EACHEYE SCH (09:00)
[2019-03-30] MEDS: ASCORBIC ACID 500 MG TABLET GT SCH (09:00)
[2019-03-30] MEDS: PROSTAT (PYXIS) 30 ML UDC GT SCH ×3 (09:00→16:57)
[2019-03-30] MEDS: THERAHONEY GEL 1.5 OZ TUBE TP SCH ×2 (10:00→21:00)
[2019-03-30] MEDS: NYSTATIN CREAM 15 GM TUBE TP SCH ×2 (10:00→21:00)
[2019-03-30] MEDS: TRIAMCINOLONE ACETONIDE 0.1% CR 15 GM TUBE TP SCH ×2 (10:00→21:00)
[2019-03-30] MEDS: COD LIVER OIL/ZINC OXIDE 120 GM TUBE TP SCH ×2 (10:00→21:00)
[2019-03-30 19:31] VITALS: BP 123/56
[2019-03-31] MEDS: IPRATROPIUM NEB FS 0.5 MG/2.5 ML AMPUL.NEB IH SCH ×4 (01:51→19:46)
[2019-03-31] MEDS: ALBUTEROL FS 2.5 MG/3 ML VIAL.NEB NEB SCH ×4 (01:51→19:46)
--- NOTE | 2019-03-31 01:55 | NUR ---
RT NOTE: PT RECEIVED TRACHED ON COOL AEROSOL @ 28%. NO SIGNS OF DISTRESS T/O SHIFT. PT SUCTIONED. HHN TX GIVEN, NO ADVERSE REACTIONS NOTED. TRACH SECURED AND PATENT. WILL CONT TO MONITOR. Addendum: 03/31/19 at 0450 by GAVIN MARTINEZ RT Amended: Links added.
[2019-03-31] MEDS: OMEPRAZOLE 20 MG CAPSULE.DR GT SCH (05:10)
[2019-03-31] MEDS: METOCLOPRAMIDE HCL 10 MG/10 ML UDC GT SCH ×4 (05:10→17:37)
[2019-03-31] MEDS: LEVOTHYROXINE SODIUM 88 MCG TABLET GT SCH (05:10)
[2019-03-31 07:27] VITALS: BP 118/57
[2019-03-31] MEDS: HYDROGEN PEROXIDE 480 ML BOTTLE TP SCH ×2 (08:16→21:15)
[2019-03-31] MEDS: PROSTAT (PYXIS) 30 ML UDC GT SCH ×3 (09:00→17:37)
[2019-03-31] MEDS: TRIAMCINOLONE ACETONIDE 0.1% CR 15 GM TUBE TP SCH ×2 (09:00→21:27)
[2019-03-31] MEDS: MULTIVIT W/MINERALS 1 TAB TABLET GT SCH (09:00)
[2019-03-31] MEDS: ASCORBIC ACID 500 MG TABLET GT SCH (09:00)
[2019-03-31] MEDS: ACETAMINOPHEN 650 MG/20 ML UDC- SA PATIENTS-PAIN ONLY GT SCH ×2 (09:00→21:27)
[2019-03-31] MEDS: ACIDOPHILUS/BULGARICUS 1 EACH TAB.CHEW GT SCH ×2 (09:00→17:37)
[2019-03-31] MEDS: NYSTATIN CREAM 15 GM TUBE TP SCH ×2 (09:00→21:27)
[2019-03-31] MEDS: COD LIVER OIL/ZINC OXIDE 120 GM TUBE TP SCH ×2 (09:00→21:27)
[2019-03-31] MEDS: ZINC SULFATE 220 MG CAPSULE GT SCH (09:00)
[2019-03-31] MEDS: CARBOXYMETHYLCELLULOSE SODIUM 0.4 ML DROPERETTE EACHEYE SCH (09:00)
[2019-03-31] MEDS: LEVETIRACETAM SOL (5 ML) 100 MG/ML UDC GT SCH ×2 (09:00→21:27)
[2019-03-31] MEDS: CHLORHEXIDINE GLUCONATE 15 ML UDC MM SCH ×2 (09:00→21:27)
[2019-03-31] MEDS: THERAHONEY GEL 1.5 OZ TUBE TP SCH ×2 (09:00→21:28)
[2019-03-31 20:45] VITALS: BP 136/72
[2019-04-01] MEDS: METOCLOPRAMIDE HCL 10 MG/10 ML UDC GT SCH ×5 (00:14→23:40)
[2019-04-01] MEDS: ALBUTEROL FS 2.5 MG/3 ML VIAL.NEB NEB SCH ×4 (01:43→20:13)
[2019-04-01] MEDS: IPRATROPIUM NEB FS 0.5 MG/2.5 ML AMPUL.NEB IH SCH ×4 (01:43→20:13)
[2019-04-01] MEDS: OMEPRAZOLE 20 MG CAPSULE.DR GT SCH (06:00)
[2019-04-01] MEDS: LEVOTHYROXINE SODIUM 88 MCG TABLET GT SCH (06:00)
[2019-04-01 07:45] VITALS: BP 115/60
[2019-04-01] MEDS: HYDROGEN PEROXIDE 480 ML BOTTLE TP SCH ×2 (08:06→21:00)
[2019-04-01] MEDS: MULTIVIT W/MINERALS 1 TAB TABLET GT SCH (09:00)
[2019-04-01] MEDS: CARBOXYMETHYLCELLULOSE SODIUM 0.4 ML DROPERETTE EACHEYE SCH (09:00)
[2019-04-01] MEDS: ACETAMINOPHEN 650 MG/20 ML UDC- SA PATIENTS-PAIN ONLY GT SCH ×2 (09:00→20:27)
[2019-04-01] MEDS: NYSTATIN CREAM 15 GM TUBE TP SCH ×2 (09:00→21:27)
[2019-04-01] MEDS: THERAHONEY GEL 1.5 OZ TUBE TP SCH ×2 (09:00→21:27)
[2019-04-01] MEDS: LEVETIRACETAM SOL (5 ML) 100 MG/ML UDC GT SCH ×2 (09:00→20:27)
[2019-04-01] MEDS: PROSTAT (PYXIS) 30 ML UDC GT SCH ×3 (09:00→16:57)
[2019-04-01] MEDS: ASCORBIC ACID 500 MG TABLET GT SCH (09:00)
[2019-04-01] MEDS: ACIDOPHILUS/BULGARICUS 1 EACH TAB.CHEW GT SCH ×2 (09:00→16:57)
[2019-04-01] MEDS: CHLORHEXIDINE GLUCONATE 15 ML UDC MM SCH ×2 (09:00→20:27)
[2019-04-01] MEDS: ZINC SULFATE 220 MG CAPSULE GT SCH (09:00)
[2019-04-01] MEDS: COD LIVER OIL/ZINC OXIDE 120 GM TUBE TP SCH ×2 (09:00→21:27)
[2019-04-01] MEDS: TRIAMCINOLONE ACETONIDE 0.1% CR 15 GM TUBE TP SCH ×2 (09:00→21:27)
[2019-04-01 20:36] VITALS: BP 117/81
[2019-04-02] MEDS: ALBUTEROL FS 2.5 MG/3 ML VIAL.NEB NEB SCH ×4 (01:20→19:57)
[2019-04-02] MEDS: IPRATROPIUM NEB FS 0.5 MG/2.5 ML AMPUL.NEB IH SCH ×4 (01:20→19:57)
[2019-04-02] MEDS: ZINC SULFATE 220 MG CAPSULE GT SCH (09:00)
[2019-04-02] MEDS: CHLORHEXIDINE GLUCONATE 15 ML UDC MM SCH ×2 (09:00→21:04)
[2019-04-02] MEDS: TRIAMCINOLONE ACETONIDE 0.1% CR 15 GM TUBE TP SCH ×2 (09:00→21:05)
[2019-04-02] MEDS: ACIDOPHILUS/BULGARICUS 1 EACH TAB.CHEW GT SCH ×2 (09:00→16:18)
[2019-04-02] MEDS: CARBOXYMETHYLCELLULOSE SODIUM 0.4 ML DROPERETTE EACHEYE SCH (09:00)
[2019-04-02] MEDS: ACETAMINOPHEN 650 MG/20 ML UDC- SA PATIENTS-PAIN ONLY GT SCH ×2 (09:00→21:04)
[2019-04-02] MEDS: ASCORBIC ACID 500 MG TABLET GT SCH (09:00)
[2019-04-02] MEDS: MULTIVIT W/MINERALS 1 TAB TABLET GT SCH (09:00)
[2019-04-02] MEDS: COD LIVER OIL/ZINC OXIDE 120 GM TUBE TP SCH ×2 (09:00→21:05)
[2019-04-02] MEDS: NYSTATIN CREAM 15 GM TUBE TP SCH ×2 (09:00→21:05)
[2019-04-02] MEDS: LEVETIRACETAM SOL (5 ML) 100 MG/ML UDC GT SCH ×2 (09:00→21:04)
[2019-04-02] MEDS: THERAHONEY GEL 1.5 OZ TUBE TP SCH ×2 (09:00→21:05)
[2019-04-02] MEDS: PROSTAT (PYXIS) 30 ML UDC GT SCH ×3 (09:00→16:18)
[2019-04-02] MEDS: HYDROGEN PEROXIDE 480 ML BOTTLE TP SCH ×2 (09:10→21:00)
--- NOTE | 2019-04-02 09:12 | NUR ---
RT PT RECEIVED ON COOL AEROSOL AT 5 LPM. TRACHED WITH SHILEY 6. SPARE TRACH AT BEDSIDE. AMBU BAG AT HEAD OF BED. HEAD OF BED AT 30 DEGREES. NO RESPIRATORY DISTRESS. WILL CONTINUE TO MONITOR. Addendum: 04/02/19 at 1631 by MONIQUE HOUSER RT Amended: Links added.
[2019-04-02 11:39] VITALS: BP 106/53
[2019-04-02] MEDS: METOCLOPRAMIDE HCL 10 MG/10 ML UDC GT SCH ×2 (12:00→17:42)
[2019-04-02 20:48] VITALS: BP 113/65
[2019-04-03] MEDS: METOCLOPRAMIDE HCL 10 MG/10 ML UDC GT SCH ×5 (00:16→23:14)
[2019-04-03] MEDS: ALBUTEROL FS 2.5 MG/3 ML VIAL.NEB NEB SCH ×4 (01:26→19:35)
[2019-04-03] MEDS: IPRATROPIUM NEB FS 0.5 MG/2.5 ML AMPUL.NEB IH SCH ×4 (01:26→19:35)
[2019-04-03] MEDS: OMEPRAZOLE 20 MG CAPSULE.DR GT SCH (05:57)
[2019-04-03] MEDS: LEVOTHYROXINE SODIUM 88 MCG TABLET GT SCH (05:57)
[2019-04-03] MEDS: HYDROGEN PEROXIDE 480 ML BOTTLE TP SCH ×2 (07:55→21:00)
[2019-04-03] MEDS: MULTIVIT W/MINERALS 1 TAB TABLET GT SCH (08:07)
[2019-04-03] MEDS: CARBOXYMETHYLCELLULOSE SODIUM 0.4 ML DROPERETTE EACHEYE SCH (08:07)
[2019-04-03] MEDS: LEVETIRACETAM SOL (5 ML) 100 MG/ML UDC GT SCH ×2 (08:07→20:41)
[2019-04-03] MEDS: PROSTAT (PYXIS) 30 ML UDC GT SCH ×3 (08:07→16:26)
[2019-04-03] MEDS: ACIDOPHILUS/BULGARICUS 1 EACH TAB.CHEW GT SCH ×2 (08:07→16:26)
[2019-04-03] MEDS: ACETAMINOPHEN 650 MG/20 ML UDC- SA PATIENTS-PAIN ONLY GT SCH ×2 (08:08→20:41)
[2019-04-03] MEDS: CHLORHEXIDINE GLUCONATE 15 ML UDC MM SCH ×2 (08:08→20:42)
[2019-04-03] MEDS: ZINC SULFATE 220 MG CAPSULE GT SCH (08:08)
[2019-04-03] MEDS: ASCORBIC ACID 500 MG TABLET GT SCH (08:08)
[2019-04-03 08:27] VITALS: BP 115/61
[2019-04-03] MEDS: NYSTATIN CREAM 15 GM TUBE TP SCH ×2 (09:00→20:42)
[2019-04-03] MEDS: THERAHONEY GEL 1.5 OZ TUBE TP SCH ×2 (09:00→20:42)
[2019-04-03] MEDS: TRIAMCINOLONE ACETONIDE 0.1% CR 15 GM TUBE TP SCH ×2 (09:00→20:42)
[2019-04-03] MEDS: COD LIVER OIL/ZINC OXIDE 120 GM TUBE TP SCH ×2 (09:00→20:42)
[2019-04-03 20:13] VITALS: BP 131/67
[2019-04-04] MEDS: ALBUTEROL FS 2.5 MG/3 ML VIAL.NEB NEB SCH ×4 (00:54→19:52)
[2019-04-04] MEDS: IPRATROPIUM NEB FS 0.5 MG/2.5 ML AMPUL.NEB IH SCH ×4 (00:54→19:52)
[2019-04-04] MEDS: GLUCERNA 1.2 1,000 ML BOTTLE GT PRN (05:31)
[2019-04-04] MEDS: LEVOTHYROXINE SODIUM 88 MCG TABLET GT SCH (05:31)
[2019-04-04] MEDS: METOCLOPRAMIDE HCL 10 MG/10 ML UDC GT SCH ×4 (05:31→23:39)
[2019-04-04] MEDS: OMEPRAZOLE 20 MG CAPSULE.DR GT SCH (05:31)
[2019-04-04 07:38] VITALS: BP 122/60
[2019-04-04] MEDS: HYDROGEN PEROXIDE 480 ML BOTTLE TP SCH ×2 (09:00→21:11)
[2019-04-04] MEDS: CARBOXYMETHYLCELLULOSE SODIUM 0.4 ML DROPERETTE EACHEYE SCH (09:54)
[2019-04-04] MEDS: PROSTAT (PYXIS) 30 ML UDC GT SCH ×3 (09:54→17:52)
[2019-04-04] MEDS: LEVETIRACETAM SOL (5 ML) 100 MG/ML UDC GT SCH ×2 (09:54→21:00)
[2019-04-04] MEDS: ACIDOPHILUS/BULGARICUS 1 EACH TAB.CHEW GT SCH ×2 (09:54→17:52)
[2019-04-04] MEDS: MULTIVIT W/MINERALS 1 TAB TABLET GT SCH (09:55)
[2019-04-04] MEDS: ACETAMINOPHEN 650 MG/20 ML UDC- SA PATIENTS-PAIN ONLY GT SCH ×2 (09:55→21:00)
[2019-04-04] MEDS: ZINC SULFATE 220 MG CAPSULE GT SCH (09:55)
[2019-04-04] MEDS: CHLORHEXIDINE GLUCONATE 15 ML UDC MM SCH ×2 (09:55→21:00)
[2019-04-04] MEDS: ASCORBIC ACID 500 MG TABLET GT SCH (09:55)
[2019-04-04] MEDS: COD LIVER OIL/ZINC OXIDE 120 GM TUBE TP SCH ×2 (10:25→21:00)
[2019-04-04] MEDS: TRIAMCINOLONE ACETONIDE 0.1% CR 15 GM TUBE TP SCH ×2 (10:25→21:00)
[2019-04-04] MEDS: THERAHONEY GEL 1.5 OZ TUBE TP SCH ×2 (10:25→21:00)
[2019-04-04] MEDS: NYSTATIN CREAM 15 GM TUBE TP SCH ×2 (10:25→21:00)
[2019-04-04 20:11] VITALS: BP 133/54
[2019-04-05] MEDS: GLUCERNA 1.2 1,000 ML BOTTLE GT PRN ×2 (00:01→18:49)
[2019-04-05] MEDS: ALBUTEROL FS 2.5 MG/3 ML VIAL.NEB NEB SCH ×4 (02:06→20:05)
[2019-04-05] MEDS: IPRATROPIUM NEB FS 0.5 MG/2.5 ML AMPUL.NEB IH SCH ×4 (02:06→20:05)
[2019-04-05] MEDS: OMEPRAZOLE 20 MG CAPSULE.DR GT SCH (05:22)
[2019-04-05] MEDS: METOCLOPRAMIDE HCL 10 MG/10 ML UDC GT SCH ×3 (05:22→18:31)
[2019-04-05] MEDS: LEVOTHYROXINE SODIUM 88 MCG TABLET GT SCH (05:22)
[2019-04-05 07:37] VITALS: BP 114/68
[2019-04-05] MEDS: ZINC SULFATE 220 MG CAPSULE GT SCH (08:17)
[2019-04-05] MEDS: CHLORHEXIDINE GLUCONATE 15 ML UDC MM SCH ×2 (08:17→20:42)
[2019-04-05] MEDS: CARBOXYMETHYLCELLULOSE SODIUM 0.4 ML DROPERETTE EACHEYE SCH (08:17)
[2019-04-05] MEDS: ACIDOPHILUS/BULGARICUS 1 EACH TAB.CHEW GT SCH ×2 (08:17→16:50)
[2019-04-05] MEDS: ASCORBIC ACID 500 MG TABLET GT SCH (08:17)
[2019-04-05] MEDS: ACETAMINOPHEN 650 MG/20 ML UDC- SA PATIENTS-PAIN ONLY GT SCH ×2 (08:17→20:42)
[2019-04-05] MEDS: MULTIVIT W/MINERALS 1 TAB TABLET GT SCH (08:17)
[2019-04-05] MEDS: PROSTAT (PYXIS) 30 ML UDC GT SCH ×3 (08:17→16:50)
[2019-04-05] MEDS: LEVETIRACETAM SOL (5 ML) 100 MG/ML UDC GT SCH ×2 (08:17→20:41)
[2019-04-05] MEDS: COD LIVER OIL/ZINC OXIDE 120 GM TUBE TP SCH ×2 (09:00→21:01)
[2019-04-05] MEDS: NYSTATIN CREAM 15 GM TUBE TP SCH ×2 (09:00→21:01)
[2019-04-05] MEDS: TRIAMCINOLONE ACETONIDE 0.1% CR 15 GM TUBE TP SCH ×2 (09:00→21:01)
[2019-04-05] MEDS: HYDROGEN PEROXIDE 480 ML BOTTLE TP SCH ×2 (09:00→21:53)
[2019-04-05] MEDS: THERAHONEY GEL 1.5 OZ TUBE TP SCH ×2 (09:00→21:01)
--- NOTE | 2019-04-05 22:05 | NUR ---
PT RECEIVE STABLE ON CA 28% FIO2 VIA T-BAR, TRACH PATENT AND SECURED, YULISSA GREEN AND RUI BAG IS AT BEDSIDE , WILL CONTINUE TO MONITOR Addendum: 04/05/19 at 2205 by ABIEL DERAS RT Amended: Links added.
[2019-04-06] MEDS: METOCLOPRAMIDE HCL 10 MG/10 ML UDC GT SCH ×4 (00:42→18:50)
[2019-04-06] MEDS: IPRATROPIUM NEB FS 0.5 MG/2.5 ML AMPUL.NEB IH SCH ×4 (00:57→19:41)
[2019-04-06] MEDS: ALBUTEROL FS 2.5 MG/3 ML VIAL.NEB NEB SCH ×4 (00:57→19:41)
[2019-04-06 03:47] VITALS: BP 117/58
[2019-04-06] MEDS: LEVOTHYROXINE SODIUM 88 MCG TABLET GT SCH (05:25)
[2019-04-06] MEDS: OMEPRAZOLE 20 MG CAPSULE.DR GT SCH (05:25)
[2019-04-06 08:19] VITALS: BP 111/52
[2019-04-06] MEDS: CARBOXYMETHYLCELLULOSE SODIUM 0.4 ML DROPERETTE EACHEYE SCH (08:37)
[2019-04-06] MEDS: ZINC SULFATE 220 MG CAPSULE GT SCH (08:38)
[2019-04-06] MEDS: CHLORHEXIDINE GLUCONATE 15 ML UDC MM SCH ×2 (08:38→21:16)
[2019-04-06] MEDS: ASCORBIC ACID 500 MG TABLET GT SCH (08:38)
[2019-04-06] MEDS: MULTIVIT W/MINERALS 1 TAB TABLET GT SCH (08:38)
[2019-04-06] MEDS: ACIDOPHILUS/BULGARICUS 1 EACH TAB.CHEW GT SCH ×2 (08:38→16:17)
[2019-04-06] MEDS: LEVETIRACETAM SOL (5 ML) 100 MG/ML UDC GT SCH ×2 (08:38→21:15)
[2019-04-06] MEDS: ACETAMINOPHEN 650 MG/20 ML UDC- SA PATIENTS-PAIN ONLY GT SCH ×2 (08:38→21:16)
[2019-04-06] MEDS: PROSTAT (PYXIS) 30 ML UDC GT SCH ×3 (08:38→16:17)
[2019-04-06] MEDS: HYDROGEN PEROXIDE 480 ML BOTTLE TP SCH ×2 (09:00→20:51)
[2019-04-06] MEDS: THERAHONEY GEL 1.5 OZ TUBE TP SCH (09:10)
[2019-04-06] MEDS: COD LIVER OIL/ZINC OXIDE 120 GM TUBE TP SCH ×2 (09:10→21:16)
[2019-04-06] MEDS: TRIAMCINOLONE ACETONIDE 0.1% CR 15 GM TUBE TP SCH (09:10)
[2019-04-06] MEDS: NYSTATIN CREAM 15 GM TUBE TP SCH (09:10)
[2019-04-06] MEDS: GLUCERNA 1.2 1,000 ML BOTTLE GT PRN (16:20)
[2019-04-06 20:47] VITALS: BP 120/83
--- NOTE | 2019-04-06 20:56 | NUR ---
PT RECEIVE STABLE ON CA 28% FIO2 VIA T-BAR, TRACH PATENT AND SECURED, YULISSA GREEN AND RUI BAG IS AT BEDSIDE , WILL CONTINUE TO MONITOR Addendum: 04/06/19 at 2055 by ABIEL DERAS RT Amended: Links added.
[2019-04-07] MEDS: METOCLOPRAMIDE HCL 10 MG/10 ML UDC GT SCH ×4 (00:06→17:58)
[2019-04-07] MEDS: IPRATROPIUM NEB FS 0.5 MG/2.5 ML AMPUL.NEB IH SCH ×4 (01:37→20:05)
[2019-04-07] MEDS: ALBUTEROL FS 2.5 MG/3 ML VIAL.NEB NEB SCH ×4 (01:37→20:06)
[2019-04-07] MEDS: OMEPRAZOLE 20 MG CAPSULE.DR GT SCH (05:31)
[2019-04-07] MEDS: LEVOTHYROXINE SODIUM 88 MCG TABLET GT SCH (05:31)
[2019-04-07 07:45] VITALS: BP 116/70
[2019-04-07] MEDS: HYDROGEN PEROXIDE 480 ML BOTTLE TP SCH ×2 (08:39→21:00)
[2019-04-07] MEDS: ACIDOPHILUS/BULGARICUS 1 EACH TAB.CHEW GT SCH ×2 (09:00→17:58)
[2019-04-07] MEDS: CARBOXYMETHYLCELLULOSE SODIUM 0.4 ML DROPERETTE EACHEYE SCH (09:00)
[2019-04-07] MEDS: PROSTAT (PYXIS) 30 ML UDC GT SCH ×3 (09:00→17:58)
[2019-04-07] MEDS: MULTIVIT W/MINERALS 1 TAB TABLET GT SCH (09:00)
[2019-04-07] MEDS: ZINC SULFATE 220 MG CAPSULE GT SCH (09:00)
[2019-04-07] MEDS: CHLORHEXIDINE GLUCONATE 15 ML UDC MM SCH ×2 (09:00→20:02)
[2019-04-07] MEDS: THERAHONEY GEL 1.5 OZ TUBE TP SCH ×2 (09:00→20:03)
[2019-04-07] MEDS: COD LIVER OIL/ZINC OXIDE 120 GM TUBE TP SCH ×2 (09:00→20:02)
[2019-04-07] MEDS: TRIAMCINOLONE ACETONIDE 0.1% CR 15 GM TUBE TP SCH ×2 (09:00→20:02)
[2019-04-07] MEDS: NYSTATIN CREAM 15 GM TUBE TP SCH ×2 (09:00→20:03)
[2019-04-07] MEDS: ASCORBIC ACID 500 MG TABLET GT SCH (09:00)
[2019-04-07] MEDS: ACETAMINOPHEN 650 MG/20 ML UDC- SA PATIENTS-PAIN ONLY GT SCH ×2 (09:00→20:02)
[2019-04-07] MEDS: LEVETIRACETAM SOL (5 ML) 100 MG/ML UDC GT SCH ×2 (09:00→20:01)
[2019-04-07] MEDS: GLUCERNA 1.2 1,000 ML BOTTLE GT PRN (15:43)
[2019-04-07 20:32] VITALS: BP 109/72
--- NOTE | 2019-04-07 22:09 | NUR ---
PT RECEIVE STABLE ON CA 28% FIO2 VIA T-BAR, TRACH PATENT AND SECURED, YULISSA GREEN AND RUI BAG IS AT BEDSIDE , WILL CONTINUE TO MONITOR Addendum: 04/07/19 at 2209 by ABIEL DERAS RT Amended: Links added.
[2019-04-08] MEDS: METOCLOPRAMIDE HCL 10 MG/10 ML UDC GT SCH ×4 (00:39→17:05)
[2019-04-08] MEDS: ALBUTEROL FS 2.5 MG/3 ML VIAL.NEB NEB SCH ×4 (01:30→19:40)
[2019-04-08] MEDS: IPRATROPIUM NEB FS 0.5 MG/2.5 ML AMPUL.NEB IH SCH ×4 (01:30→19:40)
[2019-04-08] MEDS: LEVOTHYROXINE SODIUM 88 MCG TABLET GT SCH (05:23)
[2019-04-08] MEDS: OMEPRAZOLE 20 MG CAPSULE.DR GT SCH (05:23)
[2019-04-08] MEDS: GLUCERNA 1.2 1,000 ML BOTTLE GT PRN (05:28)
[2019-04-08 07:45] VITALS: BP 123/62
[2019-04-08] MEDS: HYDROGEN PEROXIDE 480 ML BOTTLE TP SCH ×2 (08:07→19:40)
[2019-04-08] MEDS: LEVETIRACETAM SOL (5 ML) 100 MG/ML UDC GT SCH ×2 (09:00→20:42)
[2019-04-08] MEDS: ZINC SULFATE 220 MG CAPSULE GT SCH (09:00)
[2019-04-08] MEDS: CARBOXYMETHYLCELLULOSE SODIUM 0.4 ML DROPERETTE EACHEYE SCH (09:00)
[2019-04-08] MEDS: MULTIVIT W/MINERALS 1 TAB TABLET GT SCH (09:00)
[2019-04-08] MEDS: PROSTAT (PYXIS) 30 ML UDC GT SCH ×3 (09:00→17:05)
[2019-04-08] MEDS: ASCORBIC ACID 500 MG TABLET GT SCH (09:00)
[2019-04-08] MEDS: ACIDOPHILUS/BULGARICUS 1 EACH TAB.CHEW GT SCH ×2 (09:00→17:05)
[2019-04-08] MEDS: ACETAMINOPHEN 650 MG/20 ML UDC- SA PATIENTS-PAIN ONLY GT SCH ×2 (09:00→20:43)
[2019-04-08] MEDS: CHLORHEXIDINE GLUCONATE 15 ML UDC MM SCH ×2 (09:00→20:43)
[2019-04-08] MEDS: NYSTATIN CREAM 15 GM TUBE TP SCH ×2 (09:30→20:43)
[2019-04-08] MEDS: COD LIVER OIL/ZINC OXIDE 120 GM TUBE TP SCH ×2 (09:30→20:43)
[2019-04-08] MEDS: TRIAMCINOLONE ACETONIDE 0.1% CR 15 GM TUBE TP SCH ×2 (09:30→20:43)
[2019-04-08] MEDS: THERAHONEY GEL 1.5 OZ TUBE TP SCH ×2 (09:30→20:43)
--- NOTE | 2019-04-08 19:51 | NUR ---
RT NOTE: RECEIVED TRACH PT ON COOL AEROSOL. AMBU BAG @ BEDSIDE. Q6 BREATHING TX GIVEN PER MD ORDERS WITH NO ADVERSE REACTION NOTED. SX DONE PRN. TRACH PATENT AND SECURED. TRACH CARE DONE. NO RESP DISTRESS NOTED AT THIS TIME. WILL CONTINUE TO MONITOR PT Addendum: 04/08/19 at 2008 by RACHEL AVALOS RT Amended: Links added.
[2019-04-08 20:36] VITALS: BP 107/62
[2019-04-09] MEDS: METOCLOPRAMIDE HCL 10 MG/10 ML UDC GT SCH ×4 (00:47→17:14)
[2019-04-09] MEDS: ALBUTEROL FS 2.5 MG/3 ML VIAL.NEB NEB SCH ×4 (02:03→19:48)
[2019-04-09] MEDS: IPRATROPIUM NEB FS 0.5 MG/2.5 ML AMPUL.NEB IH SCH ×4 (02:03→19:48)
[2019-04-09] MEDS: GLUCERNA 1.2 1,000 ML BOTTLE GT PRN (03:55)
[2019-04-09] MEDS: OMEPRAZOLE 20 MG CAPSULE.DR GT SCH (05:38)
[2019-04-09] MEDS: LEVOTHYROXINE SODIUM 88 MCG TABLET GT SCH (05:39)
[2019-04-09 07:31] VITALS: BP 119/60
[2019-04-09] MEDS: HYDROGEN PEROXIDE 480 ML BOTTLE TP SCH ×2 (08:10→21:00)
[2019-04-09] MEDS: MULTIVIT W/MINERALS 1 TAB TABLET GT SCH (09:49)
[2019-04-09] MEDS: PROSTAT (PYXIS) 30 ML UDC GT SCH ×3 (09:49→17:14)
[2019-04-09] MEDS: ACIDOPHILUS/BULGARICUS 1 EACH TAB.CHEW GT SCH ×2 (09:49→17:14)
[2019-04-09] MEDS: CARBOXYMETHYLCELLULOSE SODIUM 0.4 ML DROPERETTE EACHEYE SCH (09:49)
[2019-04-09] MEDS: LEVETIRACETAM SOL (5 ML) 100 MG/ML UDC GT SCH ×2 (09:49→20:25)
[2019-04-09] MEDS: THERAHONEY GEL 1.5 OZ TUBE TP SCH ×2 (09:50→21:50)
[2019-04-09] MEDS: ZINC SULFATE 220 MG CAPSULE GT SCH (09:50)
[2019-04-09] MEDS: ACETAMINOPHEN 650 MG/20 ML UDC- SA PATIENTS-PAIN ONLY GT SCH ×2 (09:50→20:26)
[2019-04-09] MEDS: COD LIVER OIL/ZINC OXIDE 120 GM TUBE TP SCH ×2 (09:50→21:00)
[2019-04-09] MEDS: CHLORHEXIDINE GLUCONATE 15 ML UDC MM SCH ×2 (09:50→20:26)
[2019-04-09] MEDS: ASCORBIC ACID 500 MG TABLET GT SCH (09:50)
[2019-04-09] MEDS: NYSTATIN CREAM 15 GM TUBE TP SCH ×2 (09:50→21:50)
[2019-04-09] MEDS: TRIAMCINOLONE ACETONIDE 0.1% CR 15 GM TUBE TP SCH ×2 (09:51→21:50)
--- NOTE | 2019-04-09 10:19 | NUR ---
Seen and examined by BROOKE Blake given at this time.
--- NOTE | 2019-04-09 20:05 | NUR ---
RT PT RECEIVED ON COOL AEROSOL AT 5LPM. TRACHED WITH SHILEY 6. NO RESPIRATORY DISTRESS. AMBU BAG AT HEAD OF BED. SPARE TRACH AT BEDSIDE. WILL CONTINUE TO MONITOR. Addendum: 04/09/19 at 2328 by MONIQUE HOUSER RT Amended: Links added.
[2019-04-09 20:14] VITALS: BP 113/78
[2019-04-10] MEDS: METOCLOPRAMIDE HCL 10 MG/10 ML UDC GT SCH ×5 (00:06→23:37)
[2019-04-10] MEDS: ALBUTEROL FS 2.5 MG/3 ML VIAL.NEB NEB SCH ×4 (01:03→19:43)
[2019-04-10] MEDS: IPRATROPIUM NEB FS 0.5 MG/2.5 ML AMPUL.NEB IH SCH ×4 (01:03→19:43)
[2019-04-10] MEDS: OMEPRAZOLE 20 MG CAPSULE.DR GT SCH (05:32)
[2019-04-10] MEDS: LEVOTHYROXINE SODIUM 88 MCG TABLET GT SCH (05:32)
[2019-04-10 07:26] VITALS: BP 110/64
[2019-04-10] MEDS: HYDROGEN PEROXIDE 480 ML BOTTLE TP SCH ×2 (08:07→21:00)
[2019-04-10] MEDS: NYSTATIN CREAM 15 GM TUBE TP SCH ×2 (09:00→21:18)
[2019-04-10] MEDS: THERAHONEY GEL 1.5 OZ TUBE TP SCH ×2 (09:00→21:19)
[2019-04-10] MEDS: COD LIVER OIL/ZINC OXIDE 120 GM TUBE TP SCH ×2 (09:00→21:18)
[2019-04-10] MEDS: TRIAMCINOLONE ACETONIDE 0.1% CR 15 GM TUBE TP SCH ×2 (09:00→21:18)
[2019-04-10] MEDS: MULTIVIT W/MINERALS 1 TAB TABLET GT SCH (09:27)
[2019-04-10] MEDS: CARBOXYMETHYLCELLULOSE SODIUM 0.4 ML DROPERETTE EACHEYE SCH (09:27)
[2019-04-10] MEDS: ACIDOPHILUS/BULGARICUS 1 EACH TAB.CHEW GT SCH ×2 (09:27→16:53)
[2019-04-10] MEDS: PROSTAT (PYXIS) 30 ML UDC GT SCH ×3 (09:27→16:53)
[2019-04-10] MEDS: LEVETIRACETAM SOL (5 ML) 100 MG/ML UDC GT SCH ×2 (09:27→20:09)
[2019-04-10] MEDS: CHLORHEXIDINE GLUCONATE 15 ML UDC MM SCH ×2 (09:28→21:18)
[2019-04-10] MEDS: ACETAMINOPHEN 650 MG/20 ML UDC- SA PATIENTS-PAIN ONLY GT SCH ×2 (09:28→20:10)
[2019-04-10] MEDS: ZINC SULFATE 220 MG CAPSULE GT SCH (09:28)
[2019-04-10] MEDS: ASCORBIC ACID 500 MG TABLET GT SCH (09:28)
[2019-04-10] MEDS: GLUCERNA 1.2 1,000 ML BOTTLE GT PRN (12:39)
[2019-04-10 19:54] VITALS: BP 130/75
[2019-04-10 19:57] VITALS: BP 115/60
--- NOTE | 2019-04-10 19:59 | NUR ---
RT pt received on cool aerosol at 5 lpm. trached with shiley 6. ambu bag at head of bed. spare trach at bedside. no respiratory distress. will continue to monitor. Addendum: 04/11/19 at 0240 by MONIQUE HOUSER RT Amended: Links added.
[2019-04-11] MEDS: IPRATROPIUM NEB FS 0.5 MG/2.5 ML AMPUL.NEB IH SCH ×4 (01:13→19:38)
[2019-04-11] MEDS: ALBUTEROL FS 2.5 MG/3 ML VIAL.NEB NEB SCH ×4 (01:13→19:38)
[2019-04-11] MEDS: LEVOTHYROXINE SODIUM 88 MCG TABLET GT SCH (05:16)
[2019-04-11] MEDS: OMEPRAZOLE 20 MG CAPSULE.DR GT SCH (05:16)
[2019-04-11] MEDS: METOCLOPRAMIDE HCL 10 MG/10 ML UDC GT SCH ×4 (05:16→23:54)
[2019-04-11 07:26] VITALS: BP 112/59
[2019-04-11] MEDS: HYDROGEN PEROXIDE 480 ML BOTTLE TP SCH ×2 (08:24→19:39)
[2019-04-11] MEDS: CARBOXYMETHYLCELLULOSE SODIUM 0.4 ML DROPERETTE EACHEYE SCH (08:49)
[2019-04-11] MEDS: LEVETIRACETAM SOL (5 ML) 100 MG/ML UDC GT SCH ×2 (08:49→20:52)
[2019-04-11] MEDS: ACIDOPHILUS/BULGARICUS 1 EACH TAB.CHEW GT SCH ×2 (08:49→16:36)
[2019-04-11] MEDS: MULTIVIT W/MINERALS 1 TAB TABLET GT SCH (08:49)
[2019-04-11] MEDS: PROSTAT (PYXIS) 30 ML UDC GT SCH ×3 (08:49→16:36)
[2019-04-11] MEDS: ZINC SULFATE 220 MG CAPSULE GT SCH (08:50)
[2019-04-11] MEDS: NYSTATIN CREAM 15 GM TUBE TP SCH ×2 (08:50→20:53)
[2019-04-11] MEDS: CHLORHEXIDINE GLUCONATE 15 ML UDC MM SCH ×2 (08:50→20:53)
[2019-04-11] MEDS: ASCORBIC ACID 500 MG TABLET GT SCH (08:50)
[2019-04-11] MEDS: ACETAMINOPHEN 650 MG/20 ML UDC- SA PATIENTS-PAIN ONLY GT SCH ×2 (08:50→20:53)
[2019-04-11] MEDS: TRIAMCINOLONE ACETONIDE 0.1% CR 15 GM TUBE TP SCH ×2 (08:50→20:53)
[2019-04-11] MEDS: COD LIVER OIL/ZINC OXIDE 120 GM TUBE TP SCH ×2 (08:50→20:53)
[2019-04-11] MEDS: THERAHONEY GEL 1.5 OZ TUBE TP SCH ×2 (09:00→20:53)
[2019-04-11] MEDS: GLUCERNA 1.2 1,000 ML BOTTLE GT PRN (12:10)
[2019-04-11 19:48] VITALS: BP 110/66
[2019-04-12] MEDS: ALBUTEROL FS 2.5 MG/3 ML VIAL.NEB NEB SCH ×4 (01:27→20:18)
[2019-04-12] MEDS: IPRATROPIUM NEB FS 0.5 MG/2.5 ML AMPUL.NEB IH SCH ×4 (01:27→20:18)
[2019-04-12] MEDS: OMEPRAZOLE 20 MG CAPSULE.DR GT SCH (06:10)
[2019-04-12] MEDS: LEVOTHYROXINE SODIUM 88 MCG TABLET GT SCH (06:10)
[2019-04-12] MEDS: METOCLOPRAMIDE HCL 10 MG/10 ML UDC GT SCH ×4 (06:10→23:22)
[2019-04-12 08:06] VITALS: BP 128/97
[2019-04-12] MEDS: HYDROGEN PEROXIDE 480 ML BOTTLE TP SCH ×2 (08:17→20:03)
[2019-04-12] MEDS: PROSTAT (PYXIS) 30 ML UDC GT SCH ×3 (08:38→17:26)
[2019-04-12] MEDS: LEVETIRACETAM SOL (5 ML) 100 MG/ML UDC GT SCH ×2 (08:38→20:02)
[2019-04-12] MEDS: ACIDOPHILUS/BULGARICUS 1 EACH TAB.CHEW GT SCH ×2 (08:38→17:26)
[2019-04-12] MEDS: CARBOXYMETHYLCELLULOSE SODIUM 0.4 ML DROPERETTE EACHEYE SCH (08:38)
[2019-04-12] MEDS: MULTIVIT W/MINERALS 1 TAB TABLET GT SCH (08:39)
[2019-04-12] MEDS: ASCORBIC ACID 500 MG TABLET GT SCH (08:39)
[2019-04-12] MEDS: CHLORHEXIDINE GLUCONATE 15 ML UDC MM SCH ×2 (08:40→20:02)
[2019-04-12] MEDS: ZINC SULFATE 220 MG CAPSULE GT SCH (08:40)
[2019-04-12] MEDS: ACETAMINOPHEN 650 MG/20 ML UDC- SA PATIENTS-PAIN ONLY GT SCH ×2 (08:40→20:02)
[2019-04-12] MEDS: TRIAMCINOLONE ACETONIDE 0.1% CR 15 GM TUBE TP SCH ×2 (09:00→20:03)
[2019-04-12] MEDS: NYSTATIN CREAM 15 GM TUBE TP SCH ×2 (09:00→20:03)
[2019-04-12] MEDS: COD LIVER OIL/ZINC OXIDE 120 GM TUBE TP SCH ×2 (09:00→20:03)
[2019-04-12] MEDS: THERAHONEY GEL 1.5 OZ TUBE TP SCH ×2 (09:00→20:03)
[2019-04-12] MEDS: GLUCERNA 1.2 1,000 ML BOTTLE GT PRN (12:45)
[2019-04-12 20:11] VITALS: BP 116/58
--- NOTE | 2019-04-12 22:40 | NUR ---
PT RECEIVE STABLE ON C/A @ 28% FIO2 VIA T-BAR, TRACH PATENT AND SECURED, YULISSA GREEN AND RUI HORNER IS AT BEDSIDE, WILL CONTINUE TO MONITOR, Addendum: 04/12/19 at 2240 by ABIEL DERAS RT Amended: Links added.
[2019-04-13] MEDS: GLUCERNA 1.2 1,000 ML BOTTLE GT PRN ×2 (02:04→23:55)
[2019-04-13] MEDS: ALBUTEROL FS 2.5 MG/3 ML VIAL.NEB NEB SCH ×4 (02:10→20:04)
[2019-04-13] MEDS: IPRATROPIUM NEB FS 0.5 MG/2.5 ML AMPUL.NEB IH SCH ×4 (02:10→20:04)
[2019-04-13] MEDS: METOCLOPRAMIDE HCL 10 MG/10 ML UDC GT SCH ×4 (05:06→23:55)
[2019-04-13] MEDS: OMEPRAZOLE 20 MG CAPSULE.DR GT SCH (05:06)
[2019-04-13] MEDS: LEVOTHYROXINE SODIUM 88 MCG TABLET GT SCH (05:06)
[2019-04-13 07:43] VITALS: BP 117/64
[2019-04-13] MEDS: CHLORHEXIDINE GLUCONATE 15 ML UDC MM SCH ×2 (09:00→21:14)
[2019-04-13] MEDS: CARBOXYMETHYLCELLULOSE SODIUM 0.4 ML DROPERETTE EACHEYE SCH (09:00)
[2019-04-13] MEDS: ACIDOPHILUS/BULGARICUS 1 EACH TAB.CHEW GT SCH ×2 (09:00→17:21)
[2019-04-13] MEDS: LEVETIRACETAM SOL (5 ML) 100 MG/ML UDC GT SCH ×2 (09:00→21:14)
[2019-04-13] MEDS: ACETAMINOPHEN 650 MG/20 ML UDC- SA PATIENTS-PAIN ONLY GT SCH ×2 (09:00→21:14)
[2019-04-13] MEDS: MULTIVIT W/MINERALS 1 TAB TABLET GT SCH (09:00)
[2019-04-13] MEDS: ASCORBIC ACID 500 MG TABLET GT SCH (09:00)
[2019-04-13] MEDS: ZINC SULFATE 220 MG CAPSULE GT SCH (09:00)
[2019-04-13] MEDS: PROSTAT (PYXIS) 30 ML UDC GT SCH ×3 (09:00→17:21)
[2019-04-13] MEDS: HYDROGEN PEROXIDE 480 ML BOTTLE TP SCH ×2 (09:03→20:05)
[2019-04-13] MEDS: THERAHONEY GEL 1.5 OZ TUBE TP SCH ×2 (10:00→21:15)
[2019-04-13] MEDS: TRIAMCINOLONE ACETONIDE 0.1% CR 15 GM TUBE TP SCH ×2 (10:00→21:14)
[2019-04-13] MEDS: NYSTATIN CREAM 15 GM TUBE TP SCH ×2 (10:00→21:15)
[2019-04-13] MEDS: COD LIVER OIL/ZINC OXIDE 120 GM TUBE TP SCH ×2 (10:00→21:15)
[2019-04-13 20:59] VITALS: BP 130/70
[2019-04-14] MEDS: ALBUTEROL FS 2.5 MG/3 ML VIAL.NEB NEB SCH ×4 (00:56→19:41)
[2019-04-14] MEDS: IPRATROPIUM NEB FS 0.5 MG/2.5 ML AMPUL.NEB IH SCH ×4 (00:56→19:41)
[2019-04-14] MEDS: OMEPRAZOLE 20 MG CAPSULE.DR GT SCH (05:10)
[2019-04-14] MEDS: LEVOTHYROXINE SODIUM 88 MCG TABLET GT SCH (05:10)
[2019-04-14] MEDS: METOCLOPRAMIDE HCL 10 MG/10 ML UDC GT SCH ×3 (05:10→17:31)
[2019-04-14 07:53] VITALS: BP 110/55
[2019-04-14] MEDS: ZINC SULFATE 220 MG CAPSULE GT SCH (09:00)
[2019-04-14] MEDS: CHLORHEXIDINE GLUCONATE 15 ML UDC MM SCH ×2 (09:00→20:29)
[2019-04-14] MEDS: CARBOXYMETHYLCELLULOSE SODIUM 0.4 ML DROPERETTE EACHEYE SCH (09:00)
[2019-04-14] MEDS: PROSTAT (PYXIS) 30 ML UDC GT SCH ×3 (09:00→17:31)
[2019-04-14] MEDS: ASCORBIC ACID 500 MG TABLET GT SCH (09:00)
[2019-04-14] MEDS: ACIDOPHILUS/BULGARICUS 1 EACH TAB.CHEW GT SCH ×2 (09:00→17:31)
[2019-04-14] MEDS: LEVETIRACETAM SOL (5 ML) 100 MG/ML UDC GT SCH ×2 (09:00→20:29)
[2019-04-14] MEDS: MULTIVIT W/MINERALS 1 TAB TABLET GT SCH (09:00)
[2019-04-14] MEDS: HYDROGEN PEROXIDE 480 ML BOTTLE TP SCH ×2 (09:00→20:29)
[2019-04-14] MEDS: ACETAMINOPHEN 650 MG/20 ML UDC- SA PATIENTS-PAIN ONLY GT SCH ×2 (09:00→20:29)
[2019-04-14] MEDS: COD LIVER OIL/ZINC OXIDE 120 GM TUBE TP SCH ×2 (10:00→20:29)
[2019-04-14] MEDS: NYSTATIN CREAM 15 GM TUBE TP SCH ×2 (10:00→20:29)
[2019-04-14] MEDS: THERAHONEY GEL 1.5 OZ TUBE TP SCH ×2 (10:00→20:30)
[2019-04-14] MEDS: TRIAMCINOLONE ACETONIDE 0.1% CR 15 GM TUBE TP SCH ×2 (10:00→20:29)
[2019-04-14 20:28] VITALS: BP 120/69
[2019-04-15] MEDS: METOCLOPRAMIDE HCL 10 MG/10 ML UDC GT SCH ×5 (00:02→23:13)
[2019-04-15] MEDS: GLUCERNA 1.2 1,000 ML BOTTLE GT PRN ×2 (00:39→17:45)
[2019-04-15] MEDS: IPRATROPIUM NEB FS 0.5 MG/2.5 ML AMPUL.NEB IH SCH ×4 (01:25→19:51)
[2019-04-15] MEDS: ALBUTEROL FS 2.5 MG/3 ML VIAL.NEB NEB SCH ×4 (01:25→19:51)
[2019-04-15] MEDS: OMEPRAZOLE 20 MG CAPSULE.DR GT SCH (05:06)
[2019-04-15] MEDS: LEVOTHYROXINE SODIUM 88 MCG TABLET GT SCH (05:06)
[2019-04-15 07:50] VITALS: BP 120/66
[2019-04-15] MEDS: HYDROGEN PEROXIDE 480 ML BOTTLE TP SCH ×2 (08:15→20:25)
[2019-04-15] MEDS: LEVETIRACETAM SOL (5 ML) 100 MG/ML UDC GT SCH ×2 (09:00→20:24)
[2019-04-15] MEDS: MULTIVIT W/MINERALS 1 TAB TABLET GT SCH (09:00)
[2019-04-15] MEDS: ASCORBIC ACID 500 MG TABLET GT SCH (09:00)
[2019-04-15] MEDS: CARBOXYMETHYLCELLULOSE SODIUM 0.4 ML DROPERETTE EACHEYE SCH (09:00)
[2019-04-15] MEDS: CHLORHEXIDINE GLUCONATE 15 ML UDC MM SCH ×2 (09:00→20:25)
[2019-04-15] MEDS: ZINC SULFATE 220 MG CAPSULE GT SCH (09:00)
[2019-04-15] MEDS: ACIDOPHILUS/BULGARICUS 1 EACH TAB.CHEW GT SCH ×2 (09:00→17:45)
[2019-04-15] MEDS: ACETAMINOPHEN 650 MG/20 ML UDC- SA PATIENTS-PAIN ONLY GT SCH ×2 (09:00→20:25)
[2019-04-15] MEDS: PROSTAT (PYXIS) 30 ML UDC GT SCH ×3 (09:00→17:51)
[2019-04-15] MEDS: COD LIVER OIL/ZINC OXIDE 120 GM TUBE TP SCH ×2 (10:00→20:25)
[2019-04-15] MEDS: TRIAMCINOLONE ACETONIDE 0.1% CR 15 GM TUBE TP SCH ×2 (10:00→20:25)
[2019-04-15] MEDS: THERAHONEY GEL 1.5 OZ TUBE TP SCH ×2 (10:00→20:25)
[2019-04-15] MEDS: NYSTATIN CREAM 15 GM TUBE TP SCH ×2 (10:00→20:25)
[2019-04-15 20:20] VITALS: BP 118/60
--- NOTE | 2019-04-15 21:39 | NUR ---
PT RECEIVE STABLE ON 28% CA VIA T-BAR, TRACH PATENT AND SECURED, YULISSA GREEN AND RUI HORNER IS AT BEDSIDE, WILL CONTINUE TO MONITOR Addendum: 04/15/19 at 2139 by ABIEL DERAS RT Amended: Links added.
[2019-04-16] MEDS: IPRATROPIUM NEB FS 0.5 MG/2.5 ML AMPUL.NEB IH SCH ×4 (01:35→19:46)
[2019-04-16] MEDS: ALBUTEROL FS 2.5 MG/3 ML VIAL.NEB NEB SCH ×4 (01:35→19:46)
[2019-04-16] MEDS: LEVOTHYROXINE SODIUM 88 MCG TABLET GT SCH (06:29)
[2019-04-16] MEDS: OMEPRAZOLE 20 MG CAPSULE.DR GT SCH (06:29)
[2019-04-16] MEDS: METOCLOPRAMIDE HCL 10 MG/10 ML UDC GT SCH ×3 (06:30→17:00)
[2019-04-16 07:31] VITALS: BP 118/71
[2019-04-16] MEDS: CHLORHEXIDINE GLUCONATE 15 ML UDC MM SCH ×2 (09:00→20:22)
[2019-04-16] MEDS: ZINC SULFATE 220 MG CAPSULE GT SCH (09:00)
[2019-04-16] MEDS: ASCORBIC ACID 500 MG TABLET GT SCH (09:00)
[2019-04-16] MEDS: HYDROGEN PEROXIDE 480 ML BOTTLE TP SCH ×2 (09:00→20:22)
[2019-04-16] MEDS: PROSTAT (PYXIS) 30 ML UDC GT SCH ×3 (09:59→16:59)
[2019-04-16] MEDS: MULTIVIT W/MINERALS 1 TAB TABLET GT SCH (09:59)
[2019-04-16] MEDS: LEVETIRACETAM SOL (5 ML) 100 MG/ML UDC GT SCH ×2 (09:59→20:22)
[2019-04-16] MEDS: CARBOXYMETHYLCELLULOSE SODIUM 0.4 ML DROPERETTE EACHEYE SCH (09:59)
[2019-04-16] MEDS: ACIDOPHILUS/BULGARICUS 1 EACH TAB.CHEW GT SCH ×2 (09:59→16:59)
[2019-04-16] MEDS: ACETAMINOPHEN 650 MG/20 ML UDC- SA PATIENTS-PAIN ONLY GT SCH ×2 (10:00→20:22)
[2019-04-16] MEDS: TRIAMCINOLONE ACETONIDE 0.1% CR 15 GM TUBE TP SCH ×2 (11:00→20:22)
[2019-04-16] MEDS: THERAHONEY GEL 1.5 OZ TUBE TP SCH ×2 (11:00→20:23)
[2019-04-16] MEDS: COD LIVER OIL/ZINC OXIDE 120 GM TUBE TP SCH ×2 (11:00→20:22)
[2019-04-16] MEDS: NYSTATIN CREAM 15 GM TUBE TP SCH ×2 (11:00→20:23)
--- NOTE | 2019-04-16 15:11 | NUR ---
SW left a voicemail for the pt.s responsible republican, Reyna Teresa to schedule filling out new intake paperwork as the pt.s have received new accounts. JOSSE will await response regarding their availability.
[2019-04-16] MEDS: GLUCERNA 1.2 1,000 ML BOTTLE GT PRN (18:44)
[2019-04-16 20:05] VITALS: BP 119/67
[2019-04-17] MEDS: METOCLOPRAMIDE HCL 10 MG/10 ML UDC GT SCH ×5 (00:57→23:26)
[2019-04-17] MEDS: IPRATROPIUM NEB FS 0.5 MG/2.5 ML AMPUL.NEB IH SCH ×4 (01:38→19:40)
[2019-04-17] MEDS: ALBUTEROL FS 2.5 MG/3 ML VIAL.NEB NEB SCH ×4 (01:38→19:40)
[2019-04-17] MEDS: OMEPRAZOLE 20 MG CAPSULE.DR GT SCH (05:05)
[2019-04-17] MEDS: LEVOTHYROXINE SODIUM 88 MCG TABLET GT SCH (05:05)
[2019-04-17 07:40] VITALS: BP 113/54
[2019-04-17] MEDS: LEVETIRACETAM SOL (5 ML) 100 MG/ML UDC GT SCH ×2 (08:22→20:06)
[2019-04-17] MEDS: CARBOXYMETHYLCELLULOSE SODIUM 0.4 ML DROPERETTE EACHEYE SCH (08:22)
[2019-04-17] MEDS: ACIDOPHILUS/BULGARICUS 1 EACH TAB.CHEW GT SCH ×2 (08:22→16:27)
[2019-04-17] MEDS: PROSTAT (PYXIS) 30 ML UDC GT SCH ×3 (08:22→16:27)
[2019-04-17] MEDS: ASCORBIC ACID 500 MG TABLET GT SCH (08:24)
[2019-04-17] MEDS: ACETAMINOPHEN 650 MG/20 ML UDC- SA PATIENTS-PAIN ONLY GT SCH ×2 (08:24→20:06)
[2019-04-17] MEDS: MULTIVIT W/MINERALS 1 TAB TABLET GT SCH (08:24)
[2019-04-17] MEDS: ZINC SULFATE 220 MG CAPSULE GT SCH (08:24)
[2019-04-17] MEDS: CHLORHEXIDINE GLUCONATE 15 ML UDC MM SCH ×2 (08:24→20:06)
[2019-04-17] MEDS: NYSTATIN CREAM 15 GM TUBE TP SCH ×2 (09:00→21:38)
[2019-04-17] MEDS: TRIAMCINOLONE ACETONIDE 0.1% CR 15 GM TUBE TP SCH ×2 (09:00→21:38)
[2019-04-17] MEDS: THERAHONEY GEL 1.5 OZ TUBE TP SCH ×2 (09:00→21:38)
[2019-04-17] MEDS: HYDROGEN PEROXIDE 480 ML BOTTLE TP SCH ×2 (09:00→20:02)
[2019-04-17] MEDS: COD LIVER OIL/ZINC OXIDE 120 GM TUBE TP SCH ×2 (09:00→21:38)
--- NOTE | 2019-04-17 14:27 | NUR ---
PT is awake but unable to follow commands, monthly trach change done per RT protocol with new sofiya 6DCT.Minimal bleeding noted on post trach changed. Breath sounds coarse rhonchi bilateralwith symmetrical chest rise. RN notified on monthly trach changed. Addendum: 04/17/19 at 1427 by BURAK DODSON RT Amended: Links added.
[2019-04-17 19:47] VITALS: BP 115/75
--- NOTE | 2019-04-17 20:35 | NUR ---
RT NOTE PT RECEIVED TRACHED ON COOL AEROSOL @ 28%. AMBU BAG/BACK UP TRACH @ BEDSIDE. TX GIVEN, NO ADVERSE REACTIONS NOTED. SX DONE, TRACH SECURED AND PATENT. MINIMAL BLEEDING NOTED POST TRACH TUBE CHANGE. LAVAGED WITH COLD NORMAL SALINE. AEROSOL WATER LEVEL GOOD. NO SOB NOTED. WILL MONITOR T/O SHIFT. Addendum: 04/17/19 at 2035 by LETITIA BENITES RT Amended: Links added.
[2019-04-18] MEDS: IPRATROPIUM NEB FS 0.5 MG/2.5 ML AMPUL.NEB IH SCH ×2 (02:04→07:44)
[2019-04-18] MEDS: ALBUTEROL FS 2.5 MG/3 ML VIAL.NEB NEB SCH ×2 (02:04→07:44)
[2019-04-18] MEDS: METOCLOPRAMIDE HCL 10 MG/10 ML UDC GT SCH (05:09)
[2019-04-18] MEDS: LEVOTHYROXINE SODIUM 88 MCG TABLET GT SCH (05:09)
[2019-04-18] MEDS: OMEPRAZOLE 20 MG CAPSULE.DR GT SCH (05:09)
[2019-04-18 07:31] VITALS: BP 103/46
== END 2019-04-16 23:59 | disposition still patient (30) | DRG 981 ==
LOC: SA
PROVIDERS: ADMIT Internal Medicine Pulmonary Disease; ATTEND Internal Medicine
PROC: 0QB10ZZ Excision of Sacrum, Open Approach (ICD-10-PCS; principal; 2018-04-26)
PROC: 0KBP0ZZ Excision of Left Hip Muscle, Open Approach (ICD-10-PCS; 2018-05-10)
PROC: 0KBN0ZZ Excision of Right Hip Muscle, Open Approach (ICD-10-PCS; 2018-05-10)
PROC: 0KBP0ZZ Excision of Left Hip Muscle, Open Approach (ICD-10-PCS; 2018-05-24)
PROC: 0KBN0ZZ Excision of Right Hip Muscle, Open Approach (ICD-10-PCS; 2018-05-24)
PROC: 0KBP0ZZ Excision of Left Hip Muscle, Open Approach (ICD-10-PCS; 2018-06-07)
PROC: 0KBN0ZZ Excision of Right Hip Muscle, Open Approach (ICD-10-PCS; 2018-06-07)
PROC: 0KBP0ZZ Excision of Left Hip Muscle, Open Approach (ICD-10-PCS; 2018-06-21)
PROC: 0KBN0ZZ Excision of Right Hip Muscle, Open Approach (ICD-10-PCS; 2018-06-21)
PROC: 0KBP0ZZ Excision of Left Hip Muscle, Open Approach (ICD-10-PCS; 2018-07-05)
PROC: 0KBN0ZZ Excision of Right Hip Muscle, Open Approach (ICD-10-PCS; 2018-07-05)
PROC: 0KBP0ZZ Excision of Left Hip Muscle, Open Approach (ICD-10-PCS; 2018-07-19)
PROC: 0KBN0ZZ Excision of Right Hip Muscle, Open Approach (ICD-10-PCS; 2018-07-19)
PROC: 0KBP0ZZ Excision of Left Hip Muscle, Open Approach (ICD-10-PCS; 2018-08-02)
PROC: 0KBN0ZZ Excision of Right Hip Muscle, Open Approach (ICD-10-PCS; 2018-08-02)
PROC: 0KBP0ZZ Excision of Left Hip Muscle, Open Approach (ICD-10-PCS; 2018-08-23)
PROC: 0KBN0ZZ Excision of Right Hip Muscle, Open Approach (ICD-10-PCS; 2018-08-23)
PROC: 0KBP0ZZ Excision of Left Hip Muscle, Open Approach (ICD-10-PCS; 2018-09-09)
PROC: 0KBN0ZZ Excision of Right Hip Muscle, Open Approach (ICD-10-PCS; 2018-09-09)
PROC: 0KBP0ZZ Excision of Left Hip Muscle, Open Approach (ICD-10-PCS; 2018-09-20)
PROC: 0KBN0ZZ Excision of Right Hip Muscle, Open Approach (ICD-10-PCS; 2018-09-20)
PROC: 0KBP0ZZ Excision of Left Hip Muscle, Open Approach (ICD-10-PCS; 2018-10-04)
PROC: 0KBN0ZZ Excision of Right Hip Muscle, Open Approach (ICD-10-PCS; 2018-10-04)
PROC: 0KBP0ZZ Excision of Left Hip Muscle, Open Approach (ICD-10-PCS; 2018-11-01)
PROC: 0KBN0ZZ Excision of Right Hip Muscle, Open Approach (ICD-10-PCS; 2018-11-01)
PROC: 0KBP0ZZ Excision of Left Hip Muscle, Open Approach (ICD-10-PCS; 2018-11-12)
PROC: 0KBN0ZZ Excision of Right Hip Muscle, Open Approach (ICD-10-PCS; 2018-11-12)
PROC: 0KBP0ZZ Excision of Left Hip Muscle, Open Approach (ICD-10-PCS; 2018-11-26)
PROC: 0KBN0ZZ Excision of Right Hip Muscle, Open Approach (ICD-10-PCS; 2018-11-26)
PROC: 0KBP0ZZ Excision of Left Hip Muscle, Open Approach (ICD-10-PCS; 2018-12-10)
PROC: 0KBN0ZZ Excision of Right Hip Muscle, Open Approach (ICD-10-PCS; 2018-12-10)
PROC: 0KBP0ZZ Excision of Left Hip Muscle, Open Approach (ICD-10-PCS; 2018-12-24)
PROC: 0KBN0ZZ Excision of Right Hip Muscle, Open Approach (ICD-10-PCS; 2018-12-24)
PROC: 0KBP0ZZ Excision of Left Hip Muscle, Open Approach (ICD-10-PCS; 2019-01-07)
PROC: 0KBN0ZZ Excision of Right Hip Muscle, Open Approach (ICD-10-PCS; 2019-01-07)
PROC: 0KBP0ZZ Excision of Left Hip Muscle, Open Approach (ICD-10-PCS; 2019-01-21)
PROC: 0KBN0ZZ Excision of Right Hip Muscle, Open Approach (ICD-10-PCS; 2019-01-21)
PROC: 0KBP0ZZ Excision of Left Hip Muscle, Open Approach (ICD-10-PCS; 2019-01-28)
PROC: 0KBN0ZZ Excision of Right Hip Muscle, Open Approach (ICD-10-PCS; 2019-01-28)
PROC: 0KBP0ZZ Excision of Left Hip Muscle, Open Approach (ICD-10-PCS; 2019-02-05)
PROC: 0KBN0ZZ Excision of Right Hip Muscle, Open Approach (ICD-10-PCS; 2019-02-05)
PROC: 0KBP0ZZ Excision of Left Hip Muscle, Open Approach (ICD-10-PCS; 2019-02-14)
PROC: 0KBN0ZZ Excision of Right Hip Muscle, Open Approach (ICD-10-PCS; 2019-02-14)
PROC: 0KBP0ZZ Excision of Left Hip Muscle, Open Approach (ICD-10-PCS; 2019-02-18)
PROC: 0KBN0ZZ Excision of Right Hip Muscle, Open Approach (ICD-10-PCS; 2019-02-18)
PROC: 0KBP0ZZ Excision of Left Hip Muscle, Open Approach (ICD-10-PCS; 2019-02-25)
PROC: 0KBN0ZZ Excision of Right Hip Muscle, Open Approach (ICD-10-PCS; 2019-02-25)
PROC: 0KBP0ZZ Excision of Left Hip Muscle, Open Approach (ICD-10-PCS; 2019-03-04)
PROC: 0KBN0ZZ Excision of Right Hip Muscle, Open Approach (ICD-10-PCS; 2019-03-04)
PROC: 0KBP0ZZ Excision of Left Hip Muscle, Open Approach (ICD-10-PCS; 2019-03-11)
PROC: 0KBN0ZZ Excision of Right Hip Muscle, Open Approach (ICD-10-PCS; 2019-03-11)
DX: J96.11 Chronic respiratory failure with hypoxia (principal); L89.154 Pressure ulcer of sacral region, stage 4; G93.41 Metabolic encephalopathy; R53.2 Functional quadriplegia; I61.9 Nontraumatic intracerebral hemorrhage, unspecified; E44.0 Moderate protein-calorie malnutrition; R40.3 Persistent vegetative state; Z99.11 Dependence on respirator [ventilator] status; G93.1 Anoxic brain damage, not elsewhere classified; E11.9 Type 2 diabetes mellitus without complications; G40.909 Epilepsy, unspecified, not intractable, without status epilepticus; I10 Essential (primary) hypertension; E88.09 Other disorders of plasma-protein metabolism, not elsewhere classified; F03.90 Unspecified dementia, unspecified severity, without behavioral disturbance, psychotic disturbance, mood disturbance, and anxiety; Z86.73 Personal history of transient ischemic attack (TIA), and cerebral infarction without residual deficits; Z93.0 Tracheostomy status; D69.2 Other nonthrombocytopenic purpura; B35.8 Other dermatophytoses; Z68.25 Body mass index [BMI] 25.0-25.9, adult; R13.10 Dysphagia, unspecified; Z74.01 Bed confinement status; I68.0 Cerebral amyloid angiopathy; L60.3 Nail dystrophy; R19.7 Diarrhea, unspecified
CPT/HCPCS: 31720; 36415; 74018; 80048-TC; 82962-TC; 84443-TC; 86580-TC; 87070-TC; 87186-TC; 94640-TC; 94760-TC; 94762-TC; 94799-TC; A4217; A4623; A6253; A7526; G0008; J1953; J3490; J8597; Q0162; Q0163; Q2036

== ENCOUNTER 2019-04-17 | Inpatient (IN) | payer MEDICARE, OTHER ==
[~2019-04-17] VITALS: Ht 165.1 cm; Wt 70.8 kg
[~2019-04-17] MED LIST changes: +ONDA-97 PO; -ONDA4TAB10 PO
--- NOTE | 2019-04-17 09:53 | NUR ---
Please see resident's previous account [id number] for all assessments and nurses notes. Originally admitted on 03/28/2016; readmission 07/19/2017.
[2019-04-18] MEDS: CARBOXYMETHYLCELLULOSE SODIUM 0.4 ML DROPERETTE EACHEYE SCH (10:42)
[2019-04-18] MEDS: LEVETIRACETAM SOL (5 ML) 100 MG/ML UDC GT SCH ×2 (10:47→20:02)
[2019-04-18] MEDS: ZINC SULFATE 220 MG CAPSULE GT SCH (10:49)
[2019-04-18] MEDS: ASCORBIC ACID 500 MG TABLET GT SCH (10:49)
[2019-04-18] MEDS: COD LIVER OIL/ZINC OXIDE 120 GM TUBE TP SCH ×2 (10:50→20:03)
[2019-04-18] MEDS: CHLORHEXIDINE GLUCONATE 15 ML UDC MM SCH ×2 (10:51→20:03)
[2019-04-18] MEDS: MULTIVIT W/MINERALS 1 TAB TABLET GT SCH (10:51)
[2019-04-18] MEDS: ACIDOPHILUS/BULGARICUS 1 EACH TAB.CHEW GT SCH ×2 (10:51→17:28)
[2019-04-18] MEDS: ACETAMINOPHEN 650 MG/20 ML UDC- SA PATIENTS-PAIN ONLY GT SCH ×2 (10:52→20:03)
[2019-04-18] MEDS: THERAHONEY GEL 1.5 OZ TUBE TP SCH ×2 (10:53→20:03)
[2019-04-18] MEDS: NYSTATIN CREAM 15 GM TUBE TP SCH ×2 (10:56→20:03)
[2019-04-18] MEDS ORDERED: BISACODYL SUPP (10 MG) 10 MG/SUPP.RECT SUPP.RECT RC PRN (11:00)
[2019-04-18] MEDS ORDERED: LOPERAMIDE HCL UDC(2 MG/10 ML) 2 MG/10 ML UDC GT PRN (11:00)
[2019-04-18] MEDS ORDERED: ALBUTEROL FS 2.5 MG/3 ML VIAL.NEB NEB PRN (11:00)
[2019-04-18] MEDS ORDERED: HYDROGEN PEROXIDE 480 ML BOTTLE TP PRN (11:00)
[2019-04-18] MEDS ORDERED: ONDANSETRON 4 MG TAB.RAPDIS GT PRN (11:00)
[2019-04-18] MEDS ORDERED: ACETAMINOPHEN 650 MG/20 ML UDC- SA PATIENTS-FEVER ONLY GT PRN (11:00)
[2019-04-18] MEDS ORDERED: diphenhydrAMINE HCL ELIX 25 MG/10 ML UDC GT PRN (11:00)
[2019-04-18] MEDS: HYDROGEN PEROXIDE 480 ML BOTTLE TP SCH ×2 (11:05→20:04)
[2019-04-18] MEDS: METOCLOPRAMIDE HCL 10 MG/10 ML UDC GT SCH ×3 (12:00→23:25)
[2019-04-18] MEDS: PROSTAT (PYXIS) 30 ML UDC GT SCH ×2 (13:04→17:28)
[2019-04-18] MEDS: IPRATROPIUM NEB FS 0.5 MG/2.5 ML AMPUL.NEB IH SCH ×2 (13:34→20:04)
[2019-04-18] MEDS: ALBUTEROL FS 2.5 MG/3 ML VIAL.NEB NEB SCH ×2 (13:34→20:04)
[2019-04-18] MEDS: GLUCERNA 1.2 1,000 ML BOTTLE GT PRN (17:30)
[2019-04-18 19:57] VITALS: BP 102/64
[2019-04-18] MEDS: TRIAMCINOLONE ACETONIDE 0.1% CR 15 GM TUBE TP SCH (20:03)
[2019-04-19] MEDS: IPRATROPIUM NEB FS 0.5 MG/2.5 ML AMPUL.NEB IH SCH ×4 (01:33→19:46)
[2019-04-19] MEDS: ALBUTEROL FS 2.5 MG/3 ML VIAL.NEB NEB SCH ×4 (01:33→19:46)
[2019-04-19] MEDS: OMEPRAZOLE 20 MG CAPSULE.DR GT SCH (05:13)
[2019-04-19] MEDS: LEVOTHYROXINE SODIUM 88 MCG TABLET GT SCH (05:13)
[2019-04-19] MEDS: METOCLOPRAMIDE HCL 10 MG/10 ML UDC GT SCH ×4 (05:13→23:13)
[2019-04-19 07:32] VITALS: BP 126/67
[2019-04-19] MEDS: HYDROGEN PEROXIDE 480 ML BOTTLE TP SCH ×2 (08:10→21:05)
[2019-04-19] MEDS: NYSTATIN CREAM 15 GM TUBE TP SCH ×2 (09:00→20:15)
[2019-04-19] MEDS: ZINC SULFATE 220 MG CAPSULE GT SCH (09:00)
[2019-04-19] MEDS: ASCORBIC ACID 500 MG TABLET GT SCH (09:00)
[2019-04-19] MEDS: TRIAMCINOLONE ACETONIDE 0.1% CR 15 GM TUBE TP SCH ×2 (09:00→20:14)
[2019-04-19] MEDS: THERAHONEY GEL 1.5 OZ TUBE TP SCH ×2 (09:00→20:15)
[2019-04-19] MEDS: ACETAMINOPHEN 650 MG/20 ML UDC- SA PATIENTS-PAIN ONLY GT SCH ×2 (09:00→20:13)
[2019-04-19] MEDS: PROSTAT (PYXIS) 30 ML UDC GT SCH ×3 (09:00→17:39)
[2019-04-19] MEDS: CARBOXYMETHYLCELLULOSE SODIUM 0.4 ML DROPERETTE EACHEYE SCH (09:00)
[2019-04-19] MEDS: CHLORHEXIDINE GLUCONATE 15 ML UDC MM SCH ×2 (09:00→20:13)
[2019-04-19] MEDS: ACIDOPHILUS/BULGARICUS 1 EACH TAB.CHEW GT SCH ×2 (09:00→17:39)
[2019-04-19] MEDS: MULTIVIT W/MINERALS 1 TAB TABLET GT SCH (09:00)
[2019-04-19] MEDS: COD LIVER OIL/ZINC OXIDE 120 GM TUBE TP SCH ×2 (09:00→20:15)
[2019-04-19] MEDS: LEVETIRACETAM SOL (5 ML) 100 MG/ML UDC GT SCH ×2 (09:00→20:13)
[2019-04-19] MEDS: GLUCERNA 1.2 1,000 ML BOTTLE GT PRN (17:39)
[2019-04-19 20:20] VITALS: BP 112/69
--- NOTE | 2019-04-19 21:08 | NUR ---
Seen and examined by Becca Smith [facility] DELIVERY, no new orders
[2019-04-20] MEDS: ALBUTEROL FS 2.5 MG/3 ML VIAL.NEB NEB SCH ×4 (01:25→19:45)
[2019-04-20] MEDS: IPRATROPIUM NEB FS 0.5 MG/2.5 ML AMPUL.NEB IH SCH ×4 (01:25→19:45)
[2019-04-20] MEDS: METOCLOPRAMIDE HCL 10 MG/10 ML UDC GT SCH ×4 (05:27→23:05)
[2019-04-20] MEDS: OMEPRAZOLE 20 MG CAPSULE.DR GT SCH (05:27)
[2019-04-20] MEDS: LEVOTHYROXINE SODIUM 88 MCG TABLET GT SCH (05:27)
[2019-04-20 07:43] VITALS: BP 105/67
[2019-04-20] MEDS: PROSTAT (PYXIS) 30 ML UDC GT SCH ×3 (08:15→16:51)
[2019-04-20] MEDS: LEVETIRACETAM SOL (5 ML) 100 MG/ML UDC GT SCH ×2 (08:15→20:17)
[2019-04-20] MEDS: CARBOXYMETHYLCELLULOSE SODIUM 0.4 ML DROPERETTE EACHEYE SCH (08:15)
[2019-04-20] MEDS: MULTIVIT W/MINERALS 1 TAB TABLET GT SCH (08:15)
[2019-04-20] MEDS: ACIDOPHILUS/BULGARICUS 1 EACH TAB.CHEW GT SCH ×2 (08:15→16:51)
[2019-04-20] MEDS: ACETAMINOPHEN 650 MG/20 ML UDC- SA PATIENTS-PAIN ONLY GT SCH ×2 (08:16→20:17)
[2019-04-20] MEDS: ASCORBIC ACID 500 MG TABLET GT SCH (08:16)
[2019-04-20] MEDS: CHLORHEXIDINE GLUCONATE 15 ML UDC MM SCH ×2 (08:16→20:17)
[2019-04-20] MEDS: ZINC SULFATE 220 MG CAPSULE GT SCH (08:16)
[2019-04-20] MEDS: NYSTATIN CREAM 15 GM TUBE TP SCH ×2 (09:33→20:17)
[2019-04-20] MEDS: TRIAMCINOLONE ACETONIDE 0.1% CR 15 GM TUBE TP SCH ×2 (09:33→20:17)
[2019-04-20] MEDS: HYDROGEN PEROXIDE 480 ML BOTTLE TP SCH ×2 (09:33→19:45)
[2019-04-20] MEDS: COD LIVER OIL/ZINC OXIDE 120 GM TUBE TP SCH ×2 (09:33→20:17)
[2019-04-20] MEDS: THERAHONEY GEL 1.5 OZ TUBE TP SCH ×2 (09:33→20:18)
[2019-04-20] MEDS: GLUCERNA 1.2 1,000 ML BOTTLE GT PRN (17:00)
[2019-04-20 20:50] VITALS: BP 114/50
[2019-04-21] MEDS: IPRATROPIUM NEB FS 0.5 MG/2.5 ML AMPUL.NEB IH SCH ×4 (01:39→19:52)
[2019-04-21] MEDS: ALBUTEROL FS 2.5 MG/3 ML VIAL.NEB NEB SCH ×4 (01:39→19:52)
--- NOTE | 2019-04-21 03:04 | NUR ---
RT NOTE: RECEIVED TRACH PT ON 28% COOL AEROSOL. NO RESPIRATORY DISTRESS NOTED. TRACH CHECKED SECURE AND PATENT. SXD AND LAVAGE Q ROUND AND NEEDED. TXS GIVEN WITH NO ADVERSE EFFECTS NOTED. TRACH CARE DONE. SPARE TRACH AND AMBU BAG @ BEDSIDE.
[2019-04-21] MEDS: METOCLOPRAMIDE HCL 10 MG/10 ML UDC GT SCH ×4 (05:03→23:33)
[2019-04-21] MEDS: LEVOTHYROXINE SODIUM 88 MCG TABLET GT SCH (05:03)
[2019-04-21] MEDS: OMEPRAZOLE 20 MG CAPSULE.DR GT SCH (05:03)
[2019-04-21 07:50] VITALS: BP 116/58
[2019-04-21] MEDS: HYDROGEN PEROXIDE 480 ML BOTTLE TP SCH ×2 (08:23→19:52)
[2019-04-21] MEDS: MULTIVIT W/MINERALS 1 TAB TABLET GT SCH (09:00)
[2019-04-21] MEDS: COD LIVER OIL/ZINC OXIDE 120 GM TUBE TP SCH ×2 (09:00→21:08)
[2019-04-21] MEDS: NYSTATIN CREAM 15 GM TUBE TP SCH ×2 (09:00→21:08)
[2019-04-21] MEDS: PROSTAT (PYXIS) 30 ML UDC GT SCH ×3 (09:00→17:00)
[2019-04-21] MEDS: ZINC SULFATE 220 MG CAPSULE GT SCH (09:00)
[2019-04-21] MEDS: TRIAMCINOLONE ACETONIDE 0.1% CR 15 GM TUBE TP SCH ×2 (09:00→21:08)
[2019-04-21] MEDS: THERAHONEY GEL 1.5 OZ TUBE TP SCH ×2 (09:00→21:08)
[2019-04-21] MEDS: LEVETIRACETAM SOL (5 ML) 100 MG/ML UDC GT SCH ×2 (09:00→20:26)
[2019-04-21] MEDS: CARBOXYMETHYLCELLULOSE SODIUM 0.4 ML DROPERETTE EACHEYE SCH (09:00)
[2019-04-21] MEDS: ACIDOPHILUS/BULGARICUS 1 EACH TAB.CHEW GT SCH ×2 (09:00→17:00)
[2019-04-21] MEDS: CHLORHEXIDINE GLUCONATE 15 ML UDC MM SCH ×2 (09:00→20:26)
[2019-04-21] MEDS: ASCORBIC ACID 500 MG TABLET GT SCH (09:00)
[2019-04-21] MEDS: ACETAMINOPHEN 650 MG/20 ML UDC- SA PATIENTS-PAIN ONLY GT SCH ×2 (09:00→20:26)
[2019-04-21] MEDS: GLUCERNA 1.2 1,000 ML BOTTLE GT PRN (15:34)
--- NOTE | 2019-04-21 20:02 | NUR ---
RT NOTE: RECEIVED TRACH PATIENT ON COOL AEROSOL. HHN TREATMENT GIVEN AT THIS TIME WITH NO ADVERSE REACTION. TRACH CARE DONE. TRACH IS PATENT AND SECURED. SX DONE PRN. NO RESP DISTRESS NOTED AT THIS TIME. WILL CONT TO MONITOR PT. Addendum: 04/22/19 at 0227 by RACHEL AVALOS RT Amended: Links added.
[2019-04-21 20:42] VITALS: BP 110/64
[2019-04-22] MEDS: IPRATROPIUM NEB FS 0.5 MG/2.5 ML AMPUL.NEB IH SCH ×4 (01:51→19:58)
[2019-04-22] MEDS: ALBUTEROL FS 2.5 MG/3 ML VIAL.NEB NEB SCH ×4 (01:51→19:58)
[2019-04-22] MEDS: LEVOTHYROXINE SODIUM 88 MCG TABLET GT SCH (05:10)
[2019-04-22] MEDS: OMEPRAZOLE 20 MG CAPSULE.DR GT SCH (05:10)
[2019-04-22] MEDS: METOCLOPRAMIDE HCL 10 MG/10 ML UDC GT SCH ×4 (05:10→23:21)
[2019-04-22] MEDS: HYDROGEN PEROXIDE 480 ML BOTTLE TP SCH ×2 (07:56→21:20)
[2019-04-22] MEDS: ACETAMINOPHEN 650 MG/20 ML UDC- SA PATIENTS-PAIN ONLY GT SCH ×2 (09:00→20:32)
[2019-04-22] MEDS: PROSTAT (PYXIS) 30 ML UDC GT SCH ×3 (09:00→16:17)
[2019-04-22] MEDS: CHLORHEXIDINE GLUCONATE 15 ML UDC MM SCH ×2 (09:00→20:32)
[2019-04-22] MEDS: LEVETIRACETAM SOL (5 ML) 100 MG/ML UDC GT SCH ×2 (09:00→20:31)
[2019-04-22] MEDS: ZINC SULFATE 220 MG CAPSULE GT SCH (09:00)
[2019-04-22] MEDS: CARBOXYMETHYLCELLULOSE SODIUM 0.4 ML DROPERETTE EACHEYE SCH (09:00)
[2019-04-22] MEDS: MULTIVIT W/MINERALS 1 TAB TABLET GT SCH (09:00)
[2019-04-22] MEDS: TRIAMCINOLONE ACETONIDE 0.1% CR 15 GM TUBE TP SCH ×2 (09:00→21:31)
[2019-04-22] MEDS: ACIDOPHILUS/BULGARICUS 1 EACH TAB.CHEW GT SCH ×2 (09:00→16:17)
[2019-04-22] MEDS: ASCORBIC ACID 500 MG TABLET GT SCH (09:00)
[2019-04-22] MEDS: THERAHONEY GEL 1.5 OZ TUBE TP SCH ×2 (09:00→21:31)
[2019-04-22] MEDS: NYSTATIN CREAM 15 GM TUBE TP SCH ×2 (09:00→21:31)
[2019-04-22] MEDS: COD LIVER OIL/ZINC OXIDE 120 GM TUBE TP SCH ×2 (09:00→21:31)
[2019-04-22 13:06] VITALS: BP 107/49
--- NOTE | 2019-04-22 17:10 | NUR ---
RT NOTE RECEIVED PATIENT WITH TRACH ON COOL AEROSOL. TRACH IS PATENT AND SECURED. SPARE TRACH AND BVM IS AT BEDSIDE. PATIENT HAS EQUAL CHEST RISE WITH COARSE AND DIMINISHED BILATERAL BREATH SOUNDS. SUCTION SMALL AMOUNT OF GREEN THIN SECRETIONS THROUGH OUT THE DAY. PATIENT TOLERATED Q6 BREATHING TREATMENTS WELL. Addendum: 04/22/19 at 1711 by WANDA NAM RT Amended: Links added.
[2019-04-22] MEDS: GLUCERNA 1.2 1,000 ML BOTTLE GT PRN (18:51)
--- NOTE | 2019-04-22 20:09 | NUR ---
RT NOTE RECEIVED PATIENT TRACHED ON COOL AEROSOL FIO2 28%. NO RESP DISTRESS NOTED AT THIS TIME. AIRWAY PATENT AND SECURED. PT SUCTIONED. HHN TREATMENT GIVEN. NO ADVERSE REACTIONS NOTED. AMBUBAG AND SPARE TRACH AT BEDSIDE. WILL CONT TO MONITOR PT. Addendum: 04/22/19 at 2339 by GAVIN MARTINEZ RT Amended: Links added.
[2019-04-22 20:26] VITALS: BP 100/48
[2019-04-23] MEDS: IPRATROPIUM NEB FS 0.5 MG/2.5 ML AMPUL.NEB IH SCH ×4 (01:59→19:59)
[2019-04-23] MEDS: ALBUTEROL FS 2.5 MG/3 ML VIAL.NEB NEB SCH ×4 (01:59→19:59)
[2019-04-23] MEDS: METOCLOPRAMIDE HCL 10 MG/10 ML UDC GT SCH ×4 (05:25→23:17)
[2019-04-23] MEDS: OMEPRAZOLE 20 MG CAPSULE.DR GT SCH (05:25)
[2019-04-23] MEDS: LEVOTHYROXINE SODIUM 88 MCG TABLET GT SCH (05:25)
[2019-04-23] MEDS: HYDROGEN PEROXIDE 480 ML BOTTLE TP SCH ×2 (07:49→20:21)
[2019-04-23 07:50] VITALS: BP 105/55
[2019-04-23] MEDS: ACIDOPHILUS/BULGARICUS 1 EACH TAB.CHEW GT SCH ×2 (09:11→17:05)
[2019-04-23] MEDS: LEVETIRACETAM SOL (5 ML) 100 MG/ML UDC GT SCH ×2 (09:11→20:22)
[2019-04-23] MEDS: MULTIVIT W/MINERALS 1 TAB TABLET GT SCH (09:11)
[2019-04-23] MEDS: CARBOXYMETHYLCELLULOSE SODIUM 0.4 ML DROPERETTE EACHEYE SCH (09:11)
[2019-04-23] MEDS: PROSTAT (PYXIS) 30 ML UDC GT SCH ×3 (09:11→17:05)
[2019-04-23] MEDS: ACETAMINOPHEN 650 MG/20 ML UDC- SA PATIENTS-PAIN ONLY GT SCH ×2 (09:12→20:22)
[2019-04-23] MEDS: CHLORHEXIDINE GLUCONATE 15 ML UDC MM SCH ×2 (09:13→20:23)
[2019-04-23] MEDS: ZINC SULFATE 220 MG CAPSULE GT SCH (09:13)
[2019-04-23] MEDS: ASCORBIC ACID 500 MG TABLET GT SCH (09:13)
[2019-04-23] MEDS: THERAHONEY GEL 1.5 OZ TUBE TP SCH ×2 (09:14→21:25)
[2019-04-23] MEDS: COD LIVER OIL/ZINC OXIDE 120 GM TUBE TP SCH ×2 (09:14→21:25)
[2019-04-23] MEDS: NYSTATIN CREAM 15 GM TUBE TP SCH ×2 (09:14→21:25)
[2019-04-23] MEDS: TRIAMCINOLONE ACETONIDE 0.1% CR 15 GM TUBE TP SCH ×2 (09:14→21:25)
--- NOTE | 2019-04-23 11:30 | NUR ---
Seen and examined by Dr. Ross, no new order given.
--- NOTE | 2019-04-23 17:39 | NUR ---
RT NOTE RECEIVED PATIENT WITH TRACH ON COOL AEROSOL. TRACH IS PATENT AND SECURED. SPARE TRACH AND BVM IS AT BEDSIDE. PATIENT HAS EQUAL CHEST RISE WITH COARSE AND DIMINISHED BILATERAL BREATH SOUNDS. SUCTION SMALL AMOUNT OF GREEN THIN SECRETIONS THROUGH OUT THE DAY. PATIENT TOLERATED Q6 BREATHING TREATMENTS WELL. Addendum: 04/23/19 at 1739 by WANDA NAM RT Amended: Links added.
[2019-04-23] MEDS: GLUCERNA 1.2 1,000 ML BOTTLE GT PRN (18:39)
[2019-04-23 20:06] VITALS: BP 118/68
--- NOTE | 2019-04-23 20:52 | NUR ---
RT NOTE PT RECEIVED TRACHED ON COOL AEROSOL @ 28%. AMBU BAG/BACK UP TRACH @ BEDSIDE. TX GIVEN, NO ADVERSE REACTIONS NOTED. SX DONE, TRACH SECURED AND PATENT. NO SOB NOTED AT THIS TIME. WILL MONITOR T/O SHIFT. Addendum: 04/23/19 at 2052 by LETITIA BENITES RT Amended: Links added.
[2019-04-24] MEDS: IPRATROPIUM NEB FS 0.5 MG/2.5 ML AMPUL.NEB IH SCH ×4 (01:55→20:09)
[2019-04-24] MEDS: ALBUTEROL FS 2.5 MG/3 ML VIAL.NEB NEB SCH ×4 (01:55→20:09)
[2019-04-24] MEDS: METOCLOPRAMIDE HCL 10 MG/10 ML UDC GT SCH ×4 (05:30→23:41)
[2019-04-24] MEDS: LEVOTHYROXINE SODIUM 88 MCG TABLET GT SCH (05:30)
[2019-04-24] MEDS: OMEPRAZOLE 20 MG CAPSULE.DR GT SCH (05:30)
[2019-04-24 08:02] VITALS: BP 106/68
[2019-04-24] MEDS: CHLORHEXIDINE GLUCONATE 15 ML UDC MM SCH ×2 (08:34→20:30)
[2019-04-24] MEDS: ACETAMINOPHEN 650 MG/20 ML UDC- SA PATIENTS-PAIN ONLY GT SCH ×2 (08:34→20:29)
[2019-04-24] MEDS: ASCORBIC ACID 500 MG TABLET GT SCH (08:34)
[2019-04-24] MEDS: PROSTAT (PYXIS) 30 ML UDC GT SCH ×3 (08:34→16:39)
[2019-04-24] MEDS: ACIDOPHILUS/BULGARICUS 1 EACH TAB.CHEW GT SCH ×2 (08:34→16:39)
[2019-04-24] MEDS: ZINC SULFATE 220 MG CAPSULE GT SCH (08:34)
[2019-04-24] MEDS: CARBOXYMETHYLCELLULOSE SODIUM 0.4 ML DROPERETTE EACHEYE SCH (08:34)
[2019-04-24] MEDS: MULTIVIT W/MINERALS 1 TAB TABLET GT SCH (08:34)
[2019-04-24] MEDS: LEVETIRACETAM SOL (5 ML) 100 MG/ML UDC GT SCH ×2 (08:34→20:29)
[2019-04-24] MEDS: TRIAMCINOLONE ACETONIDE 0.1% CR 15 GM TUBE TP SCH ×2 (09:00→21:18)
[2019-04-24] MEDS: NYSTATIN CREAM 15 GM TUBE TP SCH ×2 (09:00→21:18)
[2019-04-24] MEDS: THERAHONEY GEL 1.5 OZ TUBE TP SCH (09:00)
[2019-04-24] MEDS: COD LIVER OIL/ZINC OXIDE 120 GM TUBE TP SCH ×2 (09:00→21:18)
--- NOTE | 2019-04-24 09:27 | NUR ---
SW called the pt.'s responsible republican, Reyna Galindo inviting them to the family support group being held on 04/24/2019 11 am and to the IDT Plan of Care Conference being held on 04/26/2019 12:30pm in the activities room and reminding them that the intake paperwork must be signed by them at their earliest convenience.
--- NOTE | 2019-04-24 09:30 | NUR ---
DESEAN Zarate, seen and evaluated patient's sacral wound treatment with order to DC bre and only pack with calcium alginate. Order carried out.
[2019-04-24] MEDS: HYDROGEN PEROXIDE 480 ML BOTTLE TP SCH ×2 (13:20→20:10)
--- NOTE | 2019-04-24 15:12 | NUR ---
JOSSE received a call back from the pt.'s DPOA, Reyna Galindo [phone] stating that she can meet with JOSSE on 04/30/2019 at 1 pm to complete the intake paperwork. Noted.
[2019-04-24] MEDS: GLUCERNA 1.2 1,000 ML BOTTLE GT PRN (16:42)
--- NOTE | 2019-04-24 18:00 | NUR ---
Resident noted with R buttock open skin which was caused by removal of tape. Treatment initiated.
[2019-04-24 20:11] VITALS: BP 108/82
--- NOTE | 2019-04-24 20:59 | NUR ---
RT NOTE PT RECEIVED TRACHED ON COOL AEROSOL @ 28%. AMBU BAG/BACK UP TRACH @ BEDSIDE. TX GIVEN, NO ADVERSE REACTIONS NOTED. SX DONE, TRACH SECURED AND PATENT. NO SOB NOTED. WATER LEVEL GOOD. WILL MONITOR. Addendum: 04/24/19 at 2058 by LETITIA BENITES RT Amended: Links added.
[2019-04-25] MEDS: IPRATROPIUM NEB FS 0.5 MG/2.5 ML AMPUL.NEB IH SCH ×4 (01:50→20:02)
[2019-04-25] MEDS: ALBUTEROL FS 2.5 MG/3 ML VIAL.NEB NEB SCH ×4 (01:51→20:02)
[2019-04-25] MEDS: METOCLOPRAMIDE HCL 10 MG/10 ML UDC GT SCH ×4 (05:10→23:22)
[2019-04-25] MEDS: LEVOTHYROXINE SODIUM 88 MCG TABLET GT SCH (05:10)
[2019-04-25] MEDS: OMEPRAZOLE 20 MG CAPSULE.DR GT SCH (05:10)
[2019-04-25] MEDS: CARBOXYMETHYLCELLULOSE SODIUM 0.4 ML DROPERETTE EACHEYE SCH (08:25)
[2019-04-25] MEDS: ACIDOPHILUS/BULGARICUS 1 EACH TAB.CHEW GT SCH ×2 (08:25→16:30)
[2019-04-25] MEDS: ZINC SULFATE 220 MG CAPSULE GT SCH (08:25)
[2019-04-25] MEDS: ACETAMINOPHEN 650 MG/20 ML UDC- SA PATIENTS-PAIN ONLY GT SCH ×2 (08:25→20:05)
[2019-04-25] MEDS: LEVETIRACETAM SOL (5 ML) 100 MG/ML UDC GT SCH ×2 (08:25→20:04)
[2019-04-25] MEDS: MULTIVIT W/MINERALS 1 TAB TABLET GT SCH (08:25)
[2019-04-25] MEDS: CHLORHEXIDINE GLUCONATE 15 ML UDC MM SCH ×2 (08:25→20:05)
[2019-04-25] MEDS: PROSTAT (PYXIS) 30 ML UDC GT SCH ×3 (08:25→16:30)
[2019-04-25] MEDS: ASCORBIC ACID 500 MG TABLET GT SCH (08:25)
[2019-04-25] MEDS: HYDROGEN PEROXIDE 480 ML BOTTLE TP SCH ×2 (08:27→20:02)
[2019-04-25] MEDS: COD LIVER OIL/ZINC OXIDE 120 GM TUBE TP SCH ×2 (09:30→20:05)
[2019-04-25] MEDS: Z GUARD REMEDY 2 OZ OINT TP SCH ×2 (09:30→20:05)
[2019-04-25] MEDS: TRIAMCINOLONE ACETONIDE 0.1% CR 15 GM TUBE TP SCH ×2 (09:30→20:05)
[2019-04-25] MEDS: BACI/NEOM/POLY B OINT PKT 1 UDPKT PACKET TP SCH ×2 (09:30→20:05)
[2019-04-25] MEDS: NYSTATIN CREAM 15 GM TUBE TP SCH ×2 (09:30→20:05)
[2019-04-25 11:46] VITALS: BP 108/59
[2019-04-25] MEDS: GLUCERNA 1.2 1,000 ML BOTTLE GT PRN (16:53)
[2019-04-25 20:30] VITALS: BP 104/58
[2019-04-25 20:51] VITALS: BP 132/70
--- NOTE | 2019-04-25 21:20 | NUR ---
Seen and examined by TERESA Smith no new orders.
--- NOTE | 2019-04-25 21:54 | NUR ---
PT RECEIVE STABLE ON C/A 28% FIO2 VIA T-BAR, TRACH PATENT AND SECURED, YULISSA GREEN AND RUI BAG IS AT BEDSIDE, WILL CONTINUE TO MONITOR Addendum: 04/25/19 at 2154 by ABIEL DERAS RT Amended: Links added.
[2019-04-26] MEDS: ALBUTEROL FS 2.5 MG/3 ML VIAL.NEB NEB SCH ×4 (01:47→19:41)
[2019-04-26] MEDS: IPRATROPIUM NEB FS 0.5 MG/2.5 ML AMPUL.NEB IH SCH ×4 (01:47→19:41)
[2019-04-26] MEDS: LEVOTHYROXINE SODIUM 88 MCG TABLET GT SCH (06:00)
[2019-04-26] MEDS: OMEPRAZOLE 20 MG CAPSULE.DR GT SCH (06:00)
[2019-04-26] MEDS: METOCLOPRAMIDE HCL 10 MG/10 ML UDC GT SCH ×4 (06:00→23:46)
[2019-04-26 07:56] VITALS: BP 136/91
[2019-04-26] MEDS: HYDROGEN PEROXIDE 480 ML BOTTLE TP SCH ×2 (09:00→21:07)
[2019-04-26] MEDS: CHLORHEXIDINE GLUCONATE 15 ML UDC MM SCH ×2 (09:00→20:36)
[2019-04-26] MEDS: ACIDOPHILUS/BULGARICUS 1 EACH TAB.CHEW GT SCH ×2 (09:44→16:37)
[2019-04-26] MEDS: MULTIVIT W/MINERALS 1 TAB TABLET GT SCH (09:44)
[2019-04-26] MEDS: PROSTAT (PYXIS) 30 ML UDC GT SCH ×3 (09:44→16:37)
[2019-04-26] MEDS: LEVETIRACETAM SOL (5 ML) 100 MG/ML UDC GT SCH ×2 (09:44→20:36)
[2019-04-26] MEDS: ACETAMINOPHEN 650 MG/20 ML UDC- SA PATIENTS-PAIN ONLY GT SCH ×2 (09:44→20:36)
[2019-04-26] MEDS: CARBOXYMETHYLCELLULOSE SODIUM 0.4 ML DROPERETTE EACHEYE SCH (09:44)
[2019-04-26] MEDS: ZINC SULFATE 220 MG CAPSULE GT SCH (09:45)
[2019-04-26] MEDS: ASCORBIC ACID 500 MG TABLET GT SCH (09:45)
[2019-04-26] MEDS: TRIAMCINOLONE ACETONIDE 0.1% CR 15 GM TUBE TP SCH ×2 (09:49→20:36)
[2019-04-26] MEDS: COD LIVER OIL/ZINC OXIDE 120 GM TUBE TP SCH ×2 (09:49→20:36)
[2019-04-26] MEDS: NYSTATIN CREAM 15 GM TUBE TP SCH ×2 (09:50→20:36)
[2019-04-26] MEDS: Z GUARD REMEDY 2 OZ OINT TP SCH ×2 (09:50→20:37)
[2019-04-26] MEDS: BACI/NEOM/POLY B OINT PKT 1 UDPKT PACKET TP SCH ×2 (09:50→20:36)
--- NOTE | 2019-04-26 15:33 | NUR ---
INTERDISCIPLINARY PLAN OF CARE CONFERENCE was held today. The patients responsible alliance party/daughter, Reyna Galindo [phone] was not able to attend or participate via phone conference. Charge nurse discussed the pt. is being followed by Dr. Darryl Winters for debridement; 04/24/2019 D/C Therahoney to Stage [address] Monet and Interdisciplinary team discussed the plan of care in detail. Current orders as well as treatments and medications were reviewed. Please see other disciplines IDT notes for further details.
[2019-04-26] MEDS: GLUCERNA 1.2 1,000 ML BOTTLE GT PRN (16:38)
[2019-04-27] MEDS: IPRATROPIUM NEB FS 0.5 MG/2.5 ML AMPUL.NEB IH SCH ×4 (01:29→19:53)
[2019-04-27] MEDS: ALBUTEROL FS 2.5 MG/3 ML VIAL.NEB NEB SCH ×4 (01:29→19:53)
[2019-04-27] MEDS: METOCLOPRAMIDE HCL 10 MG/10 ML UDC GT SCH ×4 (05:19→23:01)
[2019-04-27] MEDS: OMEPRAZOLE 20 MG CAPSULE.DR GT SCH (05:19)
[2019-04-27] MEDS: LEVOTHYROXINE SODIUM 88 MCG TABLET GT SCH (05:19)
[2019-04-27 07:34] VITALS: BP 131/67
[2019-04-27] MEDS: CARBOXYMETHYLCELLULOSE SODIUM 0.4 ML DROPERETTE EACHEYE SCH (08:36)
[2019-04-27] MEDS: ACIDOPHILUS/BULGARICUS 1 EACH TAB.CHEW GT SCH ×2 (08:36→17:59)
[2019-04-27] MEDS: PROSTAT (PYXIS) 30 ML UDC GT SCH ×3 (08:37→17:59)
[2019-04-27] MEDS: ACETAMINOPHEN 650 MG/20 ML UDC- SA PATIENTS-PAIN ONLY GT SCH ×2 (08:37→20:03)
[2019-04-27] MEDS: ASCORBIC ACID 500 MG TABLET GT SCH (08:38)
[2019-04-27] MEDS: ZINC SULFATE 220 MG CAPSULE GT SCH (08:38)
[2019-04-27] MEDS: CHLORHEXIDINE GLUCONATE 15 ML UDC MM SCH ×2 (08:38→20:03)
[2019-04-27] MEDS: LEVETIRACETAM SOL (5 ML) 100 MG/ML UDC GT SCH ×2 (08:40→20:01)
[2019-04-27] MEDS: MULTIVIT W/MINERALS 1 TAB TABLET GT SCH (08:42)
[2019-04-27] MEDS: BACI/NEOM/POLY B OINT PKT 1 UDPKT PACKET TP SCH ×2 (09:00→20:03)
[2019-04-27] MEDS: NYSTATIN CREAM 15 GM TUBE TP SCH ×2 (09:00→20:03)
[2019-04-27] MEDS: TRIAMCINOLONE ACETONIDE 0.1% CR 15 GM TUBE TP SCH ×2 (09:00→20:03)
[2019-04-27] MEDS: HYDROGEN PEROXIDE 480 ML BOTTLE TP SCH ×2 (09:00→21:04)
[2019-04-27] MEDS: Z GUARD REMEDY 2 OZ OINT TP SCH ×2 (09:00→20:03)
[2019-04-27] MEDS: COD LIVER OIL/ZINC OXIDE 120 GM TUBE TP SCH ×2 (09:00→20:03)
[2019-04-27] MEDS: GLUCERNA 1.2 1,000 ML BOTTLE GT PRN (16:59)
[2019-04-27 19:46] VITALS: BP 137/71
[2019-04-28] MEDS: ALBUTEROL FS 2.5 MG/3 ML VIAL.NEB NEB SCH ×4 (01:41→20:02)
[2019-04-28] MEDS: IPRATROPIUM NEB FS 0.5 MG/2.5 ML AMPUL.NEB IH SCH ×4 (01:41→20:02)
[2019-04-28] MEDS: LEVOTHYROXINE SODIUM 88 MCG TABLET GT SCH (05:04)
[2019-04-28] MEDS: OMEPRAZOLE 20 MG CAPSULE.DR GT SCH (05:04)
[2019-04-28] MEDS: METOCLOPRAMIDE HCL 10 MG/10 ML UDC GT SCH ×4 (05:04→23:29)
[2019-04-28 07:31] VITALS: BP 120/60
[2019-04-28 08:02] VITALS: BP 125/54
[2019-04-28] MEDS: PROSTAT (PYXIS) 30 ML UDC GT SCH ×3 (08:57→17:25)
[2019-04-28] MEDS: LEVETIRACETAM SOL (5 ML) 100 MG/ML UDC GT SCH ×2 (08:57→20:31)
[2019-04-28] MEDS: ACIDOPHILUS/BULGARICUS 1 EACH TAB.CHEW GT SCH ×2 (08:57→17:24)
[2019-04-28] MEDS: MULTIVIT W/MINERALS 1 TAB TABLET GT SCH (08:57)
[2019-04-28] MEDS: CARBOXYMETHYLCELLULOSE SODIUM 0.4 ML DROPERETTE EACHEYE SCH (08:57)
[2019-04-28] MEDS: ACETAMINOPHEN 650 MG/20 ML UDC- SA PATIENTS-PAIN ONLY GT SCH ×2 (08:58→20:32)
[2019-04-28] MEDS: ZINC SULFATE 220 MG CAPSULE GT SCH (08:58)
[2019-04-28] MEDS: CHLORHEXIDINE GLUCONATE 15 ML UDC MM SCH ×2 (08:58→20:32)
[2019-04-28] MEDS: ASCORBIC ACID 500 MG TABLET GT SCH (08:58)
[2019-04-28] MEDS: NYSTATIN CREAM 15 GM TUBE TP SCH ×2 (08:59→20:33)
[2019-04-28] MEDS: COD LIVER OIL/ZINC OXIDE 120 GM TUBE TP SCH ×2 (08:59→20:33)
[2019-04-28] MEDS: TRIAMCINOLONE ACETONIDE 0.1% CR 15 GM TUBE TP SCH ×2 (09:00→20:33)
[2019-04-28] MEDS: BACI/NEOM/POLY B OINT PKT 1 UDPKT PACKET TP SCH ×2 (09:00→20:33)
[2019-04-28] MEDS: Z GUARD REMEDY 2 OZ OINT TP SCH ×2 (09:00→20:33)
--- NOTE | 2019-04-28 11:00 | NUR ---
Seen and examined by Dr. Ross, with new order and carried out. Lotrimin cream 1% to right upper back rash. Daughter Marielena Miller informed at bedside.
[2019-04-28] MEDS: HYDROGEN PEROXIDE 480 ML BOTTLE TP SCH ×2 (11:18→20:33)
[2019-04-28] MEDS: GLUCERNA 1.2 1,000 ML BOTTLE GT PRN ×2 (13:00→13:13)
[2019-04-28 19:47] VITALS: BP 115/70
--- NOTE | 2019-04-28 20:18 | NUR ---
RT pt received on cool aerosol at 5 lpm, 28%. trached with shiley 6. ambu bag at head of bed. spare trach at bedside. no current respiratory distress. will continue to monitor. Addendum: 04/29/19 at 0420 by MONIQUE HOUSER RT Amended: Links added.
[2019-04-28] MEDS: CLOTRIMAZOLE 1% 15 GM TUBE TP SCH (20:33)
[2019-04-29] MEDS: ALBUTEROL FS 2.5 MG/3 ML VIAL.NEB NEB SCH ×4 (02:07→20:11)
[2019-04-29] MEDS: IPRATROPIUM NEB FS 0.5 MG/2.5 ML AMPUL.NEB IH SCH ×4 (02:07→20:11)
[2019-04-29] MEDS: OMEPRAZOLE 20 MG CAPSULE.DR GT SCH (05:37)
[2019-04-29] MEDS: LEVOTHYROXINE SODIUM 88 MCG TABLET GT SCH (05:37)
[2019-04-29] MEDS: METOCLOPRAMIDE HCL 10 MG/10 ML UDC GT SCH ×4 (05:37→23:16)
[2019-04-29 07:51] VITALS: BP 126/57
[2019-04-29] MEDS: PROSTAT (PYXIS) 30 ML UDC GT SCH ×3 (08:30→17:34)
[2019-04-29] MEDS: CHLORHEXIDINE GLUCONATE 15 ML UDC MM SCH ×2 (08:30→21:20)
[2019-04-29] MEDS: MULTIVIT W/MINERALS 1 TAB TABLET GT SCH (08:30)
[2019-04-29] MEDS: LEVETIRACETAM SOL (5 ML) 100 MG/ML UDC GT SCH ×2 (08:30→20:05)
[2019-04-29] MEDS: ZINC SULFATE 220 MG CAPSULE GT SCH (08:30)
[2019-04-29] MEDS: CARBOXYMETHYLCELLULOSE SODIUM 0.4 ML DROPERETTE EACHEYE SCH (08:30)
[2019-04-29] MEDS: ACIDOPHILUS/BULGARICUS 1 EACH TAB.CHEW GT SCH ×2 (08:30→17:34)
[2019-04-29] MEDS: ASCORBIC ACID 500 MG TABLET GT SCH (08:30)
[2019-04-29] MEDS: ACETAMINOPHEN 650 MG/20 ML UDC- SA PATIENTS-PAIN ONLY GT SCH ×2 (08:30→21:40)
[2019-04-29] MEDS: HYDROGEN PEROXIDE 480 ML BOTTLE TP SCH ×2 (08:33→21:20)
[2019-04-29] MEDS: BACI/NEOM/POLY B OINT PKT 1 UDPKT PACKET TP SCH ×2 (09:00→21:20)
[2019-04-29] MEDS: COD LIVER OIL/ZINC OXIDE 120 GM TUBE TP SCH ×2 (09:00→21:20)
[2019-04-29] MEDS: NYSTATIN CREAM 15 GM TUBE TP SCH ×2 (09:00→21:20)
[2019-04-29] MEDS: CLOTRIMAZOLE 1% 15 GM TUBE TP SCH ×2 (09:00→21:20)
[2019-04-29] MEDS: Z GUARD REMEDY 2 OZ OINT TP SCH ×2 (09:00→21:20)
[2019-04-29] MEDS: TRIAMCINOLONE ACETONIDE 0.1% CR 15 GM TUBE TP SCH ×2 (09:00→21:20)
[2019-04-29 20:43] VITALS: BP 132/61
[2019-04-30] MEDS: ALBUTEROL FS 2.5 MG/3 ML VIAL.NEB NEB SCH ×4 (01:21→19:35)
[2019-04-30] MEDS: IPRATROPIUM NEB FS 0.5 MG/2.5 ML AMPUL.NEB IH SCH ×4 (01:21→19:35)
[2019-04-30] MEDS: LEVOTHYROXINE SODIUM 88 MCG TABLET GT SCH (05:05)
[2019-04-30] MEDS: OMEPRAZOLE 20 MG CAPSULE.DR GT SCH (05:05)
[2019-04-30] MEDS: METOCLOPRAMIDE HCL 10 MG/10 ML UDC GT SCH ×4 (05:05→23:49)
[2019-04-30] MEDS: HYDROGEN PEROXIDE 480 ML BOTTLE TP SCH ×2 (08:08→21:00)
[2019-04-30] MEDS: PROSTAT (PYXIS) 30 ML UDC GT SCH ×3 (08:31→16:38)
[2019-04-30] MEDS: CARBOXYMETHYLCELLULOSE SODIUM 0.4 ML DROPERETTE EACHEYE SCH (08:31)
[2019-04-30] MEDS: MULTIVIT W/MINERALS 1 TAB TABLET GT SCH (08:31)
[2019-04-30] MEDS: LEVETIRACETAM SOL (5 ML) 100 MG/ML UDC GT SCH ×2 (08:31→21:28)
[2019-04-30] MEDS: ACIDOPHILUS/BULGARICUS 1 EACH TAB.CHEW GT SCH ×2 (08:31→16:38)
[2019-04-30] MEDS: ZINC SULFATE 220 MG CAPSULE GT SCH (08:32)
[2019-04-30] MEDS: ASCORBIC ACID 500 MG TABLET GT SCH (08:32)
[2019-04-30] MEDS: ACETAMINOPHEN 650 MG/20 ML UDC- SA PATIENTS-PAIN ONLY GT SCH ×2 (08:32→21:29)
[2019-04-30] MEDS: CHLORHEXIDINE GLUCONATE 15 ML UDC MM SCH ×2 (08:32→21:29)
[2019-04-30] MEDS: TRIAMCINOLONE ACETONIDE 0.1% CR 15 GM TUBE TP SCH ×2 (09:02→21:58)
[2019-04-30] MEDS: COD LIVER OIL/ZINC OXIDE 120 GM TUBE TP SCH ×2 (09:03→21:58)
[2019-04-30] MEDS: Z GUARD REMEDY 2 OZ OINT TP SCH ×2 (09:04→21:58)
[2019-04-30] MEDS: CLOTRIMAZOLE 1% 15 GM TUBE TP SCH ×2 (09:04→21:58)
[2019-04-30] MEDS: NYSTATIN CREAM 15 GM TUBE TP SCH ×2 (09:04→21:58)
[2019-04-30] MEDS: BACI/NEOM/POLY B OINT PKT 1 UDPKT PACKET TP SCH ×2 (09:04→21:58)
[2019-04-30 11:34] VITALS: BP 144/77
--- NOTE | 2019-04-30 13:42 | NUR ---
INTAKE PAPERWORK: JOSSE met with the patients DPOA/Daughter, Reyna Galindo [phone] on 04/30/2019 at 1400 to complete the intake paperwork: (Patient Right's Acknowledgement, Documentation of Preferred Intensity of Care, Conditions of Admission, [facility] Agreement, and Voluntary Prior Express Consent form and An Important Message from Medicare). SW provided patient's family with a copy of the Bill of Rights, patient information guide and [facility] resident and family guidelines. Reyna Galindo did not complete Documentation of Preferred Intensity of Care paperwork as she could not come to a decision. JOSSE informed Reyna that the pt. will automatically be treated as Full code as default due to lack of Documentation of Preferred Intensity of Care. Reyna expressed understanding and was agreeable to plan stating she would come in this week to complete paperwork. The admission paperwork was placed into the resident's chart. Utility Operator [employer] educated Reyna on Advanced Health Care Directive and Conservatorship and provided informational packets for her. However, Reyna is the DPOA and has provided [facility] with the Advanced Health Care Directive paperwork. Please see resident's previous account [id number] for all assessments and Quarterly information.
[2019-04-30] MEDS: GLUCERNA 1.2 1,000 ML BOTTLE GT PRN (16:02)
--- NOTE | 2019-04-30 16:41 | NUR ---
RT NOTE RECEIVED PATIENT WITH TRACH ON COOL AEROSOL. TRACH IS PATENT AND SECURED. SPARE TRACH AND BVM IS AT BEDSIDE. PATIENT HAS EQUAL CHEST RISE WITH COARSE AND DIMINISHED BILATERAL BREATH SOUNDS. SUCTION SMALL AMOUNT OF GREEN THIN SECRETIONS THROUGH OUT THE DAY. PATIENT TOLERATED Q6 BREATHING TREATMENTS WELL. NO SOB NOTED. Addendum: 04/30/19 at 1641 by WANDA NAM RT Amended: Links added.
[2019-04-30 20:30] VITALS: BP 132/69
[2019-05-01] MEDS: ALBUTEROL FS 2.5 MG/3 ML VIAL.NEB NEB SCH ×4 (01:30→19:21)
[2019-05-01] MEDS: IPRATROPIUM NEB FS 0.5 MG/2.5 ML AMPUL.NEB IH SCH ×4 (01:30→19:21)
[2019-05-01] MEDS: METOCLOPRAMIDE HCL 10 MG/10 ML UDC GT SCH ×4 (06:02→23:53)
[2019-05-01] MEDS: OMEPRAZOLE 20 MG CAPSULE.DR GT SCH (06:02)
[2019-05-01] MEDS: LEVOTHYROXINE SODIUM 88 MCG TABLET GT SCH (06:02)
[2019-05-01] MEDS: HYDROGEN PEROXIDE 480 ML BOTTLE TP SCH ×2 (07:48→20:09)
[2019-05-01] MEDS: MULTIVIT W/MINERALS 1 TAB TABLET GT SCH (08:42)
[2019-05-01] MEDS: LEVETIRACETAM SOL (5 ML) 100 MG/ML UDC GT SCH ×2 (08:42→21:46)
[2019-05-01] MEDS: PROSTAT (PYXIS) 30 ML UDC GT SCH ×3 (08:42→17:27)
[2019-05-01] MEDS: ACIDOPHILUS/BULGARICUS 1 EACH TAB.CHEW GT SCH ×2 (08:42→17:27)
[2019-05-01] MEDS: ACETAMINOPHEN 650 MG/20 ML UDC- SA PATIENTS-PAIN ONLY GT SCH ×2 (08:42→21:47)
[2019-05-01] MEDS: CARBOXYMETHYLCELLULOSE SODIUM 0.4 ML DROPERETTE EACHEYE SCH (08:42)
[2019-05-01] MEDS: ASCORBIC ACID 500 MG TABLET GT SCH (08:43)
[2019-05-01] MEDS: ZINC SULFATE 220 MG CAPSULE GT SCH (08:43)
[2019-05-01] MEDS: COD LIVER OIL/ZINC OXIDE 120 GM TUBE TP SCH ×2 (09:00→21:57)
[2019-05-01] MEDS: Z GUARD REMEDY 2 OZ OINT TP SCH ×2 (09:00→21:58)
[2019-05-01] MEDS: NYSTATIN CREAM 15 GM TUBE TP SCH ×2 (09:00→21:58)
[2019-05-01] MEDS: CHLORHEXIDINE GLUCONATE 15 ML UDC MM SCH ×2 (09:00→21:47)
[2019-05-01] MEDS: TRIAMCINOLONE ACETONIDE 0.1% CR 15 GM TUBE TP SCH ×2 (09:00→21:57)
[2019-05-01] MEDS: BACI/NEOM/POLY B OINT PKT 1 UDPKT PACKET TP SCH ×2 (09:00→21:58)
[2019-05-01] MEDS: CLOTRIMAZOLE 1% 15 GM TUBE TP SCH ×2 (09:00→21:58)
[2019-05-01 11:56] VITALS: BP 139/85
--- NOTE | 2019-05-01 13:45 | NUR ---
JOSSE called the patient's DPOA, Reyna Galindo [phone] to encourage her to complete and sign the Preferred Intensity of Care Document. Reyna was receptive to speaking with JOSSE and agreed that it is highly important. Reyna requested that JOSSE leave the document at Nursing station as Reyna will aim to complete the document today 05/01/2019 between 6pm -9 pm. JOSSE notified Charge Nurse that the paperwork is filed in chart.
[2019-05-01] MEDS: GLUCERNA 1.2 1,000 ML BOTTLE GT PRN (14:57)
[2019-05-01 21:54] VITALS: BP 138/74
[2019-05-02] MEDS: ALBUTEROL FS 2.5 MG/3 ML VIAL.NEB NEB SCH ×4 (01:40→19:59)
[2019-05-02] MEDS: IPRATROPIUM NEB FS 0.5 MG/2.5 ML AMPUL.NEB IH SCH ×4 (01:40→19:59)
[2019-05-02] MEDS: GLUCERNA 1.2 1,000 ML BOTTLE GT PRN (06:02)
[2019-05-02] MEDS: OMEPRAZOLE 20 MG CAPSULE.DR GT SCH (06:02)
[2019-05-02] MEDS: METOCLOPRAMIDE HCL 10 MG/10 ML UDC GT SCH ×4 (06:02→23:11)
[2019-05-02] MEDS: LEVOTHYROXINE SODIUM 88 MCG TABLET GT SCH (06:02)
[2019-05-02 07:36] VITALS: BP 131/74
[2019-05-02] MEDS: PROSTAT (PYXIS) 30 ML UDC GT SCH ×3 (08:25→17:27)
[2019-05-02] MEDS: CARBOXYMETHYLCELLULOSE SODIUM 0.4 ML DROPERETTE EACHEYE SCH (08:25)
[2019-05-02] MEDS: LEVETIRACETAM SOL (5 ML) 100 MG/ML UDC GT SCH ×2 (08:25→21:39)
[2019-05-02] MEDS: ACIDOPHILUS/BULGARICUS 1 EACH TAB.CHEW GT SCH ×2 (08:25→17:27)
[2019-05-02] MEDS: MULTIVIT W/MINERALS 1 TAB TABLET GT SCH (08:26)
[2019-05-02] MEDS: ZINC SULFATE 220 MG CAPSULE GT SCH (08:26)
[2019-05-02] MEDS: ACETAMINOPHEN 650 MG/20 ML UDC- SA PATIENTS-PAIN ONLY GT SCH ×2 (08:26→21:39)
[2019-05-02] MEDS: CHLORHEXIDINE GLUCONATE 15 ML UDC MM SCH ×2 (08:26→21:39)
[2019-05-02] MEDS: ASCORBIC ACID 500 MG TABLET GT SCH (08:26)
[2019-05-02] MEDS: NYSTATIN CREAM 15 GM TUBE TP SCH ×2 (09:01→21:39)
[2019-05-02] MEDS: COD LIVER OIL/ZINC OXIDE 120 GM TUBE TP SCH ×2 (09:01→21:39)
[2019-05-02] MEDS: TRIAMCINOLONE ACETONIDE 0.1% CR 15 GM TUBE TP SCH ×2 (09:01→21:39)
[2019-05-02] MEDS: CLOTRIMAZOLE 1% 15 GM TUBE TP SCH ×2 (09:01→21:39)
[2019-05-02] MEDS: HYDROGEN PEROXIDE 480 ML BOTTLE TP SCH ×2 (09:05→20:00)
--- NOTE | 2019-05-02 16:25 | NUR ---
JOSSE completed the [employer] portion of 3RD Quarter MDS. The patient is non-communicative, DNR, Non-Vent with Trach and G-Tube feeding: PEG Glucerna 1.2 at 55ml/hr x 20 hr+Prostat TID provide: (1620 kcal, 111 gm protein). The patients responsible democrat is their daughter, Reyna Galindo [phone] who is the DPOA. The patients last dental exam and cleaning by Dr. Teresa was on 02/13/2019. The patients last eye exam by overseamer, Dr. Martins was 02/01/19. The patients last podiatry visit by Dr. [place] was on 04/26/2019.
[2019-05-02 20:49] VITALS: BP 129/63
--- NOTE | 2019-05-02 21:33 | NUR ---
PT RECEIVE STABLE ON C/A @ 28% FIO2 VIA T-BAR, TRACH PATENT AND SECURED, YULISSA GREEN AND RUI HORNER IS AT BEDSIDE, WILL CONTINUE TO MONITOR Addendum: 05/02/19 at 2133 by ABIEL DERAS RT Amended: Links added.
[2019-05-03] MEDS: IPRATROPIUM NEB FS 0.5 MG/2.5 ML AMPUL.NEB IH SCH ×4 (01:52→19:56)
[2019-05-03] MEDS: ALBUTEROL FS 2.5 MG/3 ML VIAL.NEB NEB SCH ×4 (01:52→19:56)
[2019-05-03] MEDS: LEVOTHYROXINE SODIUM 88 MCG TABLET GT SCH (05:16)
[2019-05-03] MEDS: METOCLOPRAMIDE HCL 10 MG/10 ML UDC GT SCH ×4 (05:16→23:14)
[2019-05-03] MEDS: OMEPRAZOLE 20 MG CAPSULE.DR GT SCH (05:16)
[2019-05-03] MEDS: HYDROGEN PEROXIDE 480 ML BOTTLE TP SCH ×2 (07:24→21:34)
[2019-05-03 07:55] VITALS: BP 135/54
[2019-05-03] MEDS: ASCORBIC ACID 500 MG TABLET GT SCH (08:30)
[2019-05-03] MEDS: ZINC SULFATE 220 MG CAPSULE GT SCH (08:30)
[2019-05-03] MEDS: CARBOXYMETHYLCELLULOSE SODIUM 0.4 ML DROPERETTE EACHEYE SCH (08:30)
[2019-05-03] MEDS: ACIDOPHILUS/BULGARICUS 1 EACH TAB.CHEW GT SCH ×2 (08:30→16:12)
[2019-05-03] MEDS: LEVETIRACETAM SOL (5 ML) 100 MG/ML UDC GT SCH ×2 (08:30→21:11)
[2019-05-03] MEDS: ACETAMINOPHEN 650 MG/20 ML UDC- SA PATIENTS-PAIN ONLY GT SCH ×2 (08:30→21:11)
[2019-05-03] MEDS: CHLORHEXIDINE GLUCONATE 15 ML UDC MM SCH ×2 (08:30→21:12)
[2019-05-03] MEDS: PROSTAT (PYXIS) 30 ML UDC GT SCH ×3 (08:30→16:12)
[2019-05-03] MEDS: MULTIVIT W/MINERALS 1 TAB TABLET GT SCH (08:30)
[2019-05-03] MEDS: CLOTRIMAZOLE 1% 15 GM TUBE TP SCH (09:00)
[2019-05-03] MEDS: TRIAMCINOLONE ACETONIDE 0.1% CR 15 GM TUBE TP SCH ×3 (09:00→21:38)
[2019-05-03] MEDS: NYSTATIN CREAM 15 GM TUBE TP SCH ×2 (09:00→21:38)
[2019-05-03] MEDS: COD LIVER OIL/ZINC OXIDE 120 GM TUBE TP SCH ×2 (09:00→21:38)
--- NOTE | 2019-05-03 16:24 | NUR ---
RT NOTE: RECEIVED PT ON COOL AEROSOL T-BAR. NO RESPIRATORY DISTRESS NOTED. TRACH CHECKED SECURE AND PATENT. SXD AND LAVAGE PT Q ROUND AND NEEDED. TXS GIVEN ORDERED WITH NO ADVERSE REACTIONS NOTED. TRACH CARE DONE. SPARE TRACH AND AMBU BAG @ BEDSIDE.
--- NOTE | 2019-05-03 17:30 | NUR ---
Seen by Dr. Ross and reassessed rashes in the patient's back, not improving with current treatment. New order to change current treatment to Triamcinolone cream. Order carried out.
[2019-05-03 21:02] VITALS: BP 130/72
[2019-05-04] MEDS: ALBUTEROL FS 2.5 MG/3 ML VIAL.NEB NEB SCH ×4 (01:38→19:35)
[2019-05-04] MEDS: IPRATROPIUM NEB FS 0.5 MG/2.5 ML AMPUL.NEB IH SCH ×4 (01:38→19:35)
[2019-05-04] MEDS: GLUCERNA 1.2 1,000 ML BOTTLE GT PRN (04:40)
[2019-05-04] MEDS: METOCLOPRAMIDE HCL 10 MG/10 ML UDC GT SCH ×3 (05:44→17:12)
[2019-05-04] MEDS: OMEPRAZOLE 20 MG CAPSULE.DR GT SCH (05:44)
[2019-05-04] MEDS: LEVOTHYROXINE SODIUM 88 MCG TABLET GT SCH (05:44)
[2019-05-04 07:59] VITALS: BP 135/61
[2019-05-04] MEDS: LEVETIRACETAM SOL (5 ML) 100 MG/ML UDC GT SCH ×2 (09:00→21:00)
[2019-05-04] MEDS: MULTIVIT W/MINERALS 1 TAB TABLET GT SCH (09:00)
[2019-05-04] MEDS: CHLORHEXIDINE GLUCONATE 15 ML UDC MM SCH ×2 (09:00→21:02)
[2019-05-04] MEDS: CARBOXYMETHYLCELLULOSE SODIUM 0.4 ML DROPERETTE EACHEYE SCH (09:00)
[2019-05-04] MEDS: ACETAMINOPHEN 650 MG/20 ML UDC- SA PATIENTS-PAIN ONLY GT SCH ×2 (09:00→21:01)
[2019-05-04] MEDS: ZINC SULFATE 220 MG CAPSULE GT SCH (09:00)
[2019-05-04] MEDS: ACIDOPHILUS/BULGARICUS 1 EACH TAB.CHEW GT SCH ×2 (09:00→16:19)
[2019-05-04] MEDS: ASCORBIC ACID 500 MG TABLET GT SCH (09:00)
[2019-05-04] MEDS: PROSTAT (PYXIS) 30 ML UDC GT SCH ×3 (09:00→16:19)
[2019-05-04] MEDS: HYDROGEN PEROXIDE 480 ML BOTTLE TP SCH ×2 (09:25→21:14)
[2019-05-04] MEDS: NYSTATIN CREAM 15 GM TUBE TP SCH ×2 (10:00→21:40)
[2019-05-04] MEDS: COD LIVER OIL/ZINC OXIDE 120 GM TUBE TP SCH ×2 (10:00→21:40)
[2019-05-04] MEDS: TRIAMCINOLONE ACETONIDE 0.1% CR 15 GM TUBE TP SCH ×4 (10:00→21:40)
[2019-05-04 20:29] VITALS: BP 110/63
[2019-05-05] MEDS: METOCLOPRAMIDE HCL 10 MG/10 ML UDC GT SCH ×4 (00:02→17:27)
[2019-05-05] MEDS: ALBUTEROL FS 2.5 MG/3 ML VIAL.NEB NEB SCH ×4 (01:05→19:48)
[2019-05-05] MEDS: IPRATROPIUM NEB FS 0.5 MG/2.5 ML AMPUL.NEB IH SCH ×4 (01:05→19:48)
[2019-05-05] MEDS: OMEPRAZOLE 20 MG CAPSULE.DR GT SCH (05:11)
[2019-05-05] MEDS: GLUCERNA 1.2 1,000 ML BOTTLE GT PRN (05:11)
[2019-05-05] MEDS: LEVOTHYROXINE SODIUM 88 MCG TABLET GT SCH (05:11)
[2019-05-05 07:32] VITALS: BP 126/65
[2019-05-05] MEDS: HYDROGEN PEROXIDE 480 ML BOTTLE TP SCH ×2 (08:40→21:00)
[2019-05-05] MEDS: LEVETIRACETAM SOL (5 ML) 100 MG/ML UDC GT SCH ×2 (09:33→20:58)
[2019-05-05] MEDS: PROSTAT (PYXIS) 30 ML UDC GT SCH ×3 (09:33→17:27)
[2019-05-05] MEDS: ACIDOPHILUS/BULGARICUS 1 EACH TAB.CHEW GT SCH ×2 (09:33→17:27)
[2019-05-05] MEDS: MULTIVIT W/MINERALS 1 TAB TABLET GT SCH (09:33)
[2019-05-05] MEDS: CARBOXYMETHYLCELLULOSE SODIUM 0.4 ML DROPERETTE EACHEYE SCH (09:33)
[2019-05-05] MEDS: ZINC SULFATE 220 MG CAPSULE GT SCH (09:34)
[2019-05-05] MEDS: ACETAMINOPHEN 650 MG/20 ML UDC- SA PATIENTS-PAIN ONLY GT SCH ×2 (09:34→20:58)
[2019-05-05] MEDS: CHLORHEXIDINE GLUCONATE 15 ML UDC MM SCH ×2 (09:34→20:58)
[2019-05-05] MEDS: ASCORBIC ACID 500 MG TABLET GT SCH (09:34)
[2019-05-05] MEDS: NYSTATIN CREAM 15 GM TUBE TP SCH ×2 (10:34→20:59)
[2019-05-05] MEDS: TRIAMCINOLONE ACETONIDE 0.1% CR 15 GM TUBE TP SCH ×4 (10:34→20:58)
[2019-05-05] MEDS: COD LIVER OIL/ZINC OXIDE 120 GM TUBE TP SCH ×2 (10:34→20:59)
[2019-05-06] MEDS: METOCLOPRAMIDE HCL 10 MG/10 ML UDC GT SCH ×4 (00:02→17:52)
[2019-05-06] MEDS: ALBUTEROL FS 2.5 MG/3 ML VIAL.NEB NEB SCH ×4 (01:57→19:33)
[2019-05-06] MEDS: IPRATROPIUM NEB FS 0.5 MG/2.5 ML AMPUL.NEB IH SCH ×4 (01:57→19:33)
[2019-05-06] MEDS: LEVOTHYROXINE SODIUM 88 MCG TABLET GT SCH (05:44)
[2019-05-06] MEDS: OMEPRAZOLE 20 MG CAPSULE.DR GT SCH (05:44)
[2019-05-06 08:02] VITALS: BP 120/70
[2019-05-06] MEDS: PROSTAT (PYXIS) 30 ML UDC GT SCH ×3 (08:32→16:52)
[2019-05-06] MEDS: ASCORBIC ACID 500 MG TABLET GT SCH (08:32)
[2019-05-06] MEDS: LEVETIRACETAM SOL (5 ML) 100 MG/ML UDC GT SCH ×2 (08:32→21:15)
[2019-05-06] MEDS: MULTIVIT W/MINERALS 1 TAB TABLET GT SCH (08:32)
[2019-05-06] MEDS: ACIDOPHILUS/BULGARICUS 1 EACH TAB.CHEW GT SCH ×2 (08:32→16:52)
[2019-05-06] MEDS: ZINC SULFATE 220 MG CAPSULE GT SCH (08:32)
[2019-05-06] MEDS: CHLORHEXIDINE GLUCONATE 15 ML UDC MM SCH ×2 (08:32→21:15)
[2019-05-06] MEDS: CARBOXYMETHYLCELLULOSE SODIUM 0.4 ML DROPERETTE EACHEYE SCH (08:32)
[2019-05-06] MEDS: ACETAMINOPHEN 650 MG/20 ML UDC- SA PATIENTS-PAIN ONLY GT SCH ×2 (08:32→21:15)
[2019-05-06] MEDS: HYDROGEN PEROXIDE 480 ML BOTTLE TP SCH ×2 (09:15→21:00)
[2019-05-06] MEDS: TRIAMCINOLONE ACETONIDE 0.1% CR 15 GM TUBE TP SCH ×4 (09:30→21:15)
[2019-05-06] MEDS: NYSTATIN CREAM 15 GM TUBE TP SCH ×2 (09:30→21:16)
[2019-05-06] MEDS: COD LIVER OIL/ZINC OXIDE 120 GM TUBE TP SCH ×2 (09:30→21:16)
--- NOTE | 2019-05-06 12:41 | NUR ---
Pt's daughter Reyna came to visit. She was requesting to try bolus feedings for pt to see if she will be able to absorb bolus feedings well and tolerate them. Left message for HYUN Castillo.
--- NOTE | 2019-05-06 14:05 | NUR ---
The patients DPOA/ daughter, Reyna Galindo [phone] met with [employer] today to complete and sign the Preferred Intensity of Care paperwork. Reyna requested that the pt. be changes to Bolus feeding to determine if the pt. is able to adequately process food. JOSSE relayed information to Charge NurseSepideh. See charge nurseSepideh's note for further details.
[2019-05-06 20:06] VITALS: BP 104/53
[2019-05-07] MEDS: METOCLOPRAMIDE HCL 10 MG/10 ML UDC GT SCH ×5 (00:15→23:07)
[2019-05-07] MEDS: IPRATROPIUM NEB FS 0.5 MG/2.5 ML AMPUL.NEB IH SCH ×4 (00:51→19:16)
[2019-05-07] MEDS: ALBUTEROL FS 2.5 MG/3 ML VIAL.NEB NEB SCH ×4 (00:51→19:16)
[2019-05-07] MEDS: LEVOTHYROXINE SODIUM 88 MCG TABLET GT SCH (06:05)
[2019-05-07] MEDS: OMEPRAZOLE 20 MG CAPSULE.DR GT SCH (06:05)
[2019-05-07] MEDS: HYDROGEN PEROXIDE 480 ML BOTTLE TP SCH ×2 (07:41→21:11)
[2019-05-07 08:06] VITALS: BP 137/69
[2019-05-07] MEDS: CARBOXYMETHYLCELLULOSE SODIUM 0.4 ML DROPERETTE EACHEYE SCH (08:24)
[2019-05-07] MEDS: LEVETIRACETAM SOL (5 ML) 100 MG/ML UDC GT SCH ×2 (08:25→21:00)
[2019-05-07] MEDS: ZINC SULFATE 220 MG CAPSULE GT SCH (08:25)
[2019-05-07] MEDS: CHLORHEXIDINE GLUCONATE 15 ML UDC MM SCH ×2 (08:25→21:00)
[2019-05-07] MEDS: ACETAMINOPHEN 650 MG/20 ML UDC- SA PATIENTS-PAIN ONLY GT SCH ×2 (08:25→21:00)
[2019-05-07] MEDS: MULTIVIT W/MINERALS 1 TAB TABLET GT SCH (08:25)
[2019-05-07] MEDS: PROSTAT (PYXIS) 30 ML UDC GT SCH ×3 (08:25→16:50)
[2019-05-07] MEDS: ACIDOPHILUS/BULGARICUS 1 EACH TAB.CHEW GT SCH ×2 (08:25→16:49)
[2019-05-07] MEDS: ASCORBIC ACID 500 MG TABLET GT SCH (08:25)
[2019-05-07] MEDS: COD LIVER OIL/ZINC OXIDE 120 GM TUBE TP SCH ×2 (09:00→21:01)
[2019-05-07] MEDS: TRIAMCINOLONE ACETONIDE 0.1% CR 15 GM TUBE TP SCH ×4 (09:00→21:01)
[2019-05-07] MEDS: NYSTATIN CREAM 15 GM TUBE TP SCH ×2 (09:00→21:01)
[2019-05-07 20:02] VITALS: BP 124/70
[2019-05-08] MEDS: ALBUTEROL FS 2.5 MG/3 ML VIAL.NEB NEB SCH ×4 (01:02→21:20)
[2019-05-08] MEDS: IPRATROPIUM NEB FS 0.5 MG/2.5 ML AMPUL.NEB IH SCH ×4 (01:02→21:20)
[2019-05-08] MEDS: LEVOTHYROXINE SODIUM 88 MCG TABLET GT SCH (05:56)
[2019-05-08] MEDS: OMEPRAZOLE 20 MG CAPSULE.DR GT SCH (05:56)
[2019-05-08] MEDS: METOCLOPRAMIDE HCL 10 MG/10 ML UDC GT SCH ×4 (05:56→23:27)
[2019-05-08 07:48] VITALS: BP 112/73
[2019-05-08] MEDS: HYDROGEN PEROXIDE 480 ML BOTTLE TP SCH ×2 (08:10→21:22)
[2019-05-08] MEDS: PROSTAT (PYXIS) 30 ML UDC GT SCH ×3 (09:54→17:00)
[2019-05-08] MEDS: CARBOXYMETHYLCELLULOSE SODIUM 0.4 ML DROPERETTE EACHEYE SCH (09:54)
[2019-05-08] MEDS: ACETAMINOPHEN 650 MG/20 ML UDC- SA PATIENTS-PAIN ONLY GT SCH ×2 (09:54→20:49)
[2019-05-08] MEDS: ACIDOPHILUS/BULGARICUS 1 EACH TAB.CHEW GT SCH ×2 (09:54→17:00)
[2019-05-08] MEDS: LEVETIRACETAM SOL (5 ML) 100 MG/ML UDC GT SCH ×2 (09:54→20:48)
[2019-05-08] MEDS: MULTIVIT W/MINERALS 1 TAB TABLET GT SCH (09:54)
[2019-05-08] MEDS: TRIAMCINOLONE ACETONIDE 0.1% CR 15 GM TUBE TP SCH ×3 (09:55→20:50)
[2019-05-08] MEDS: ASCORBIC ACID 500 MG TABLET GT SCH (09:55)
[2019-05-08] MEDS: CHLORHEXIDINE GLUCONATE 15 ML UDC MM SCH ×2 (09:55→20:49)
[2019-05-08] MEDS: COD LIVER OIL/ZINC OXIDE 120 GM TUBE TP SCH ×2 (09:55→20:50)
[2019-05-08] MEDS: NYSTATIN CREAM 15 GM TUBE TP SCH (09:55)
[2019-05-08] MEDS: ZINC SULFATE 220 MG CAPSULE GT SCH (09:55)
--- NOTE | 2019-05-08 15:45 | NUR ---
Seen and examined by Dr. Ross, NNO given.
[2019-05-08 19:41] VITALS: BP 128/80
[2019-05-09] MEDS: IPRATROPIUM NEB FS 0.5 MG/2.5 ML AMPUL.NEB IH SCH ×4 (02:21→19:30)
[2019-05-09] MEDS: ALBUTEROL FS 2.5 MG/3 ML VIAL.NEB NEB SCH ×4 (02:22→19:30)
[2019-05-09] MEDS: LEVOTHYROXINE SODIUM 88 MCG TABLET GT SCH (06:09)
[2019-05-09] MEDS: METOCLOPRAMIDE HCL 10 MG/10 ML UDC GT SCH ×3 (06:09→23:24)
[2019-05-09] MEDS: OMEPRAZOLE 20 MG CAPSULE.DR GT SCH (06:09)
[2019-05-09] MEDS: GLUCERNA 1.2 1,000 ML BOTTLE GT PRN (06:10)
[2019-05-09 07:28] VITALS: BP 126/73
[2019-05-09] MEDS: MULTIVIT W/MINERALS 1 TAB TABLET GT SCH (09:00)
[2019-05-09] MEDS: ACIDOPHILUS/BULGARICUS 1 EACH TAB.CHEW GT SCH ×2 (09:00→16:10)
[2019-05-09] MEDS: ZINC SULFATE 220 MG CAPSULE GT SCH (09:00)
[2019-05-09] MEDS: ACETAMINOPHEN 650 MG/20 ML UDC- SA PATIENTS-PAIN ONLY GT SCH ×2 (09:00→21:00)
[2019-05-09] MEDS: NYSTATIN CREAM 15 GM TUBE TP SCH ×2 (09:00→21:00)
[2019-05-09] MEDS: LEVETIRACETAM SOL (5 ML) 100 MG/ML UDC GT SCH ×2 (09:00→20:59)
[2019-05-09] MEDS: PROSTAT (PYXIS) 30 ML UDC GT SCH ×3 (09:00→16:10)
[2019-05-09] MEDS: CARBOXYMETHYLCELLULOSE SODIUM 0.4 ML DROPERETTE EACHEYE SCH (09:00)
[2019-05-09] MEDS: TRIAMCINOLONE ACETONIDE 0.1% CR 15 GM TUBE TP SCH ×4 (09:00→21:00)
[2019-05-09] MEDS: CHLORHEXIDINE GLUCONATE 15 ML UDC MM SCH ×2 (09:00→21:00)
[2019-05-09] MEDS: ASCORBIC ACID 500 MG TABLET GT SCH (09:00)
[2019-05-09] MEDS: COD LIVER OIL/ZINC OXIDE 120 GM TUBE TP SCH ×2 (09:00→21:00)
[2019-05-09 19:49] VITALS: BP 119/65
[2019-05-09] MEDS: HYDROGEN PEROXIDE 480 ML BOTTLE TP SCH (20:34)
[2019-05-10] MEDS: IPRATROPIUM NEB FS 0.5 MG/2.5 ML AMPUL.NEB IH SCH ×4 (01:38→20:03)
[2019-05-10] MEDS: ALBUTEROL FS 2.5 MG/3 ML VIAL.NEB NEB SCH ×4 (01:38→20:03)
[2019-05-10] MEDS: GLUCERNA 1.2 1,000 ML BOTTLE GT PRN (02:13)
[2019-05-10] MEDS: OMEPRAZOLE 20 MG CAPSULE.DR GT SCH (05:17)
[2019-05-10] MEDS: METOCLOPRAMIDE HCL 10 MG/10 ML UDC GT SCH ×4 (05:18→23:31)
[2019-05-10] MEDS: LEVOTHYROXINE SODIUM 88 MCG TABLET GT SCH (05:18)
[2019-05-10 07:26] VITALS: BP 134/71
[2019-05-10] MEDS: CARBOXYMETHYLCELLULOSE SODIUM 0.4 ML DROPERETTE EACHEYE SCH (08:59)
[2019-05-10] MEDS: LEVETIRACETAM SOL (5 ML) 100 MG/ML UDC GT SCH ×2 (09:00→20:12)
[2019-05-10] MEDS: CHLORHEXIDINE GLUCONATE 15 ML UDC MM SCH ×2 (09:00→20:13)
[2019-05-10] MEDS: PROSTAT (PYXIS) 30 ML UDC GT SCH ×3 (09:00→16:18)
[2019-05-10] MEDS: MULTIVIT W/MINERALS 1 TAB TABLET GT SCH (09:00)
[2019-05-10] MEDS: ASCORBIC ACID 500 MG TABLET GT SCH (09:00)
[2019-05-10] MEDS: TRIAMCINOLONE ACETONIDE 0.1% CR 15 GM TUBE TP SCH ×4 (09:00→20:13)
[2019-05-10] MEDS: ACETAMINOPHEN 650 MG/20 ML UDC- SA PATIENTS-PAIN ONLY GT SCH ×2 (09:00→20:13)
[2019-05-10] MEDS: ZINC SULFATE 220 MG CAPSULE GT SCH (09:00)
[2019-05-10] MEDS: HYDROGEN PEROXIDE 480 ML BOTTLE TP SCH ×2 (09:00→20:05)
[2019-05-10] MEDS: ACIDOPHILUS/BULGARICUS 1 EACH TAB.CHEW GT SCH ×2 (09:00→16:18)
[2019-05-10] MEDS: NYSTATIN CREAM 15 GM TUBE TP SCH ×2 (09:01→20:13)
[2019-05-10] MEDS: COD LIVER OIL/ZINC OXIDE 120 GM TUBE TP SCH ×2 (09:01→20:13)
[2019-05-10 20:09] VITALS: BP 130/84
[2019-05-11] MEDS: ALBUTEROL FS 2.5 MG/3 ML VIAL.NEB NEB SCH ×4 (01:45→19:53)
[2019-05-11] MEDS: IPRATROPIUM NEB FS 0.5 MG/2.5 ML AMPUL.NEB IH SCH ×4 (01:45→19:53)
[2019-05-11] MEDS: GLUCERNA 1.2 1,000 ML BOTTLE GT PRN (05:12)
[2019-05-11] MEDS: LEVOTHYROXINE SODIUM 88 MCG TABLET GT SCH (05:12)
[2019-05-11] MEDS: METOCLOPRAMIDE HCL 10 MG/10 ML UDC GT SCH ×4 (05:12→23:17)
[2019-05-11] MEDS: OMEPRAZOLE 20 MG CAPSULE.DR GT SCH (05:12)
[2019-05-11 07:37] VITALS: BP 149/75
[2019-05-11] MEDS: CARBOXYMETHYLCELLULOSE SODIUM 0.4 ML DROPERETTE EACHEYE SCH (08:51)
[2019-05-11] MEDS: ASCORBIC ACID 500 MG TABLET GT SCH (08:53)
[2019-05-11] MEDS: PROSTAT (PYXIS) 30 ML UDC GT SCH ×3 (08:53→17:15)
[2019-05-11] MEDS: MULTIVIT W/MINERALS 1 TAB TABLET GT SCH (08:53)
[2019-05-11] MEDS: ZINC SULFATE 220 MG CAPSULE GT SCH (08:53)
[2019-05-11] MEDS: ACIDOPHILUS/BULGARICUS 1 EACH TAB.CHEW GT SCH ×2 (08:53→17:15)
[2019-05-11] MEDS: ACETAMINOPHEN 650 MG/20 ML UDC- SA PATIENTS-PAIN ONLY GT SCH ×2 (08:55→20:08)
[2019-05-11] MEDS: CHLORHEXIDINE GLUCONATE 15 ML UDC MM SCH ×2 (08:55→20:08)
[2019-05-11] MEDS: LEVETIRACETAM SOL (5 ML) 100 MG/ML UDC GT SCH ×2 (08:56→20:08)
[2019-05-11] MEDS: TRIAMCINOLONE ACETONIDE 0.1% CR 15 GM TUBE TP SCH ×4 (09:00→20:09)
[2019-05-11] MEDS: COD LIVER OIL/ZINC OXIDE 120 GM TUBE TP SCH ×2 (09:00→20:09)
[2019-05-11] MEDS: NYSTATIN CREAM 15 GM TUBE TP SCH ×2 (09:00→20:09)
[2019-05-11] MEDS: HYDROGEN PEROXIDE 480 ML BOTTLE TP SCH ×2 (09:00→21:26)
[2019-05-11 19:39] VITALS: BP 107/60
[2019-05-12] MEDS: GLUCERNA 1.2 1,000 ML BOTTLE GT PRN (01:15)
[2019-05-12] MEDS: IPRATROPIUM NEB FS 0.5 MG/2.5 ML AMPUL.NEB IH SCH ×4 (01:37→19:48)
[2019-05-12] MEDS: ALBUTEROL FS 2.5 MG/3 ML VIAL.NEB NEB SCH ×4 (01:37→19:48)
[2019-05-12] MEDS: LEVOTHYROXINE SODIUM 88 MCG TABLET GT SCH (05:01)
[2019-05-12] MEDS: METOCLOPRAMIDE HCL 10 MG/10 ML UDC GT SCH ×4 (05:01→23:11)
[2019-05-12] MEDS: OMEPRAZOLE 20 MG CAPSULE.DR GT SCH (05:01)
[2019-05-12 07:26] VITALS: BP 116/69
[2019-05-12] MEDS: HYDROGEN PEROXIDE 480 ML BOTTLE TP SCH ×2 (09:05→21:18)
[2019-05-12] MEDS: ACETAMINOPHEN 650 MG/20 ML UDC- SA PATIENTS-PAIN ONLY GT SCH ×2 (09:51→20:51)
[2019-05-12] MEDS: CARBOXYMETHYLCELLULOSE SODIUM 0.4 ML DROPERETTE EACHEYE SCH (09:51)
[2019-05-12] MEDS: PROSTAT (PYXIS) 30 ML UDC GT SCH ×3 (09:51→17:47)
[2019-05-12] MEDS: ZINC SULFATE 220 MG CAPSULE GT SCH (09:51)
[2019-05-12] MEDS: ASCORBIC ACID 500 MG TABLET GT SCH (09:51)
[2019-05-12] MEDS: MULTIVIT W/MINERALS 1 TAB TABLET GT SCH (09:51)
[2019-05-12] MEDS: LEVETIRACETAM SOL (5 ML) 100 MG/ML UDC GT SCH ×2 (09:51→20:50)
[2019-05-12] MEDS: CHLORHEXIDINE GLUCONATE 15 ML UDC MM SCH ×2 (09:51→20:51)
[2019-05-12] MEDS: ACIDOPHILUS/BULGARICUS 1 EACH TAB.CHEW GT SCH ×2 (09:51→17:47)
[2019-05-12] MEDS: NYSTATIN CREAM 15 GM TUBE TP SCH ×2 (09:52→20:52)
[2019-05-12] MEDS: COD LIVER OIL/ZINC OXIDE 120 GM TUBE TP SCH ×2 (09:52→20:52)
[2019-05-12] MEDS: TRIAMCINOLONE ACETONIDE 0.1% CR 15 GM TUBE TP SCH ×4 (09:52→20:52)
[2019-05-12 20:21] VITALS: BP 129/66
[2019-05-13] MEDS: ALBUTEROL FS 2.5 MG/3 ML VIAL.NEB NEB SCH ×4 (01:31→19:33)
[2019-05-13] MEDS: IPRATROPIUM NEB FS 0.5 MG/2.5 ML AMPUL.NEB IH SCH ×4 (01:31→19:33)
[2019-05-13] MEDS: METOCLOPRAMIDE HCL 10 MG/10 ML UDC GT SCH ×4 (06:00→23:29)
[2019-05-13] MEDS: OMEPRAZOLE 20 MG CAPSULE.DR GT SCH (06:00)
[2019-05-13] MEDS: LEVOTHYROXINE SODIUM 88 MCG TABLET GT SCH (06:00)
[2019-05-13 07:35] VITALS: BP 130/72
[2019-05-13] MEDS: PROSTAT (PYXIS) 30 ML UDC GT SCH ×3 (08:34→16:38)
[2019-05-13] MEDS: LEVETIRACETAM SOL (5 ML) 100 MG/ML UDC GT SCH ×2 (08:34→20:41)
[2019-05-13] MEDS: ACETAMINOPHEN 650 MG/20 ML UDC- SA PATIENTS-PAIN ONLY GT SCH ×2 (08:34→20:41)
[2019-05-13] MEDS: MULTIVIT W/MINERALS 1 TAB TABLET GT SCH (08:34)
[2019-05-13] MEDS: ACIDOPHILUS/BULGARICUS 1 EACH TAB.CHEW GT SCH ×2 (08:34→13:22)
[2019-05-13] MEDS: CARBOXYMETHYLCELLULOSE SODIUM 0.4 ML DROPERETTE EACHEYE SCH (08:34)
[2019-05-13] MEDS: CHLORHEXIDINE GLUCONATE 15 ML UDC MM SCH ×2 (08:35→20:41)
[2019-05-13] MEDS: ASCORBIC ACID 500 MG TABLET GT SCH (08:35)
[2019-05-13] MEDS: ZINC SULFATE 220 MG CAPSULE GT SCH (08:35)
[2019-05-13] MEDS: NYSTATIN CREAM 15 GM TUBE TP SCH ×2 (09:00→20:42)
[2019-05-13] MEDS: COD LIVER OIL/ZINC OXIDE 120 GM TUBE TP SCH ×2 (09:00→20:41)
[2019-05-13] MEDS: HYDROGEN PEROXIDE 480 ML BOTTLE TP SCH ×2 (09:00→21:00)
[2019-05-13] MEDS: TRIAMCINOLONE ACETONIDE 0.1% CR 15 GM TUBE TP SCH ×4 (09:00→20:41)
[2019-05-13 19:46] VITALS: BP 115/76
[2019-05-14] MEDS: ALBUTEROL FS 2.5 MG/3 ML VIAL.NEB NEB SCH ×4 (01:24→19:56)
[2019-05-14] MEDS: IPRATROPIUM NEB FS 0.5 MG/2.5 ML AMPUL.NEB IH SCH ×4 (01:24→19:56)
[2019-05-14] MEDS: METOCLOPRAMIDE HCL 10 MG/10 ML UDC GT SCH ×4 (05:46→23:37)
[2019-05-14] MEDS: OMEPRAZOLE 20 MG CAPSULE.DR GT SCH (05:46)
[2019-05-14] MEDS: LEVOTHYROXINE SODIUM 88 MCG TABLET GT SCH (05:46)
[2019-05-14] MEDS: HYDROGEN PEROXIDE 480 ML BOTTLE TP SCH ×2 (07:59→19:56)
[2019-05-14 08:00] VITALS: BP 141/67
[2019-05-14] MEDS: ACIDOPHILUS/BULGARICUS 1 EACH TAB.CHEW GT SCH ×2 (09:29→17:41)
[2019-05-14] MEDS: MULTIVIT W/MINERALS 1 TAB TABLET GT SCH (09:29)
[2019-05-14] MEDS: LEVETIRACETAM SOL (5 ML) 100 MG/ML UDC GT SCH ×2 (09:29→20:46)
[2019-05-14] MEDS: CARBOXYMETHYLCELLULOSE SODIUM 0.4 ML DROPERETTE EACHEYE SCH (09:29)
[2019-05-14] MEDS: PROSTAT (PYXIS) 30 ML UDC GT SCH ×3 (09:29→17:41)
[2019-05-14] MEDS: ACETAMINOPHEN 650 MG/20 ML UDC- SA PATIENTS-PAIN ONLY GT SCH ×2 (09:29→20:46)
[2019-05-14] MEDS: COD LIVER OIL/ZINC OXIDE 120 GM TUBE TP SCH ×2 (09:30→20:47)
[2019-05-14] MEDS: CHLORHEXIDINE GLUCONATE 15 ML UDC MM SCH ×2 (09:30→20:46)
[2019-05-14] MEDS: NYSTATIN CREAM 15 GM TUBE TP SCH ×2 (09:30→20:47)
[2019-05-14] MEDS: ZINC SULFATE 220 MG CAPSULE GT SCH (09:30)
[2019-05-14] MEDS: ASCORBIC ACID 500 MG TABLET GT SCH (09:30)
[2019-05-14] MEDS: TRIAMCINOLONE ACETONIDE 0.1% CR 15 GM TUBE TP SCH ×4 (09:30→20:47)
--- NOTE | 2019-05-14 10:00 | NUR ---
Seen by Dr Monet. Pt breathing 30 cpm, had a temp of [address] Monet ordered CBC UA CXR. Notified Reyna.
[2019-05-14 10:50] LABS: BASOPHILS # (AUTO) 0.1 /CMM (0.0-0.2); BASOPHILS % (AUTO) 1.2 % (0.0-2.0); EOSINOPHILS % (AUTO) 0.3 % (0.0-6.0); HEMATOCRIT 36 % (33-45); HEMOGLOBIN 11.3 g/dL (11.5-14.8); LYMPHOCYTES # (AUTO) 1.4 /CMM (0.8-4.8); MEAN CORPUSCULAR HGB CONC 32 g/dl (31.0-36.0); MEAN CORPUSCULAR VOLUME 81 fL (82-100); MONOCYTES # (AUTO) 1.6 /CMM (0.1-1.30); MONOCYTES % (AUTO) 13.9 % (2.0-12.0); NEUTROPHILS # (AUTO) 8.6 /CMM (1.8-8.9); NEUTROPHILS % (AUTO) 72.6 % (43.0-81.0); PLATELET COUNT (AUTO) 436 /CMM (150-450); WHITE BLOOD COUNT (AUTO) 11.8 K/uL (4.3-11.0)
[2019-05-14 11:38] VITALS: BP 141/67
--- NOTE | 2019-05-14 15:00 | NUR ---
Seen by Dr Ross. Informed him that pt had a temp of 100 F at noon, ice packs applied on pt's axillae, cool towel placed on pt's forehead. Also informed him that Dr Monet ordered labs. Dr Ross said it has been a while since labs were done for pt since pt's preferred intensity of care states no antibiotics, no IV fluids, no ventilator, no transfer to acute hospital, no blood transfusion. Dr Monet aware of preferred intensity of care as well. No new order from Dr Ross.
[2019-05-14] MEDS: GLUCERNA 1.2 1,000 ML BOTTLE GT PRN (15:57)
[2019-05-14 16:24] LABS: APPEARANCE,URINE SL CLOUDY (CLEAR); BILIRUBIN,URINE NEGATIVE (NEGATIVE); BLOOD, URINE MODERATE Ery/uL (NEGATIVE); COLOR,URINE YELLOW (YELLOW); KETONES,URINE NEGATIVE (NEGATIVE); LEUKOCYTE ESTERASE ,URINE MODERATE (NEGATIVE); NITRITE, URINE POSITIVE (NEGATIVE); PROTEIN,URINE 30 mg/dl (NEGATIVE); UGLUCOSE NEGATIVE (NEGATIVE); UROBILINOGEN,URINE 0.2 EU/dL (0.2)
[2019-05-14 16:51] LABS: BACTERIA,URINE Many /HPF (None Seen); RBC,URINE 81-100 /HPF (0-2); WBC,URINE 81-100 /HPF (0-3)
[2019-05-14 16:52] LABS: SQUAMOUS EPITHELIAL CELL,UR Moderate /HPF (None Seen); TRIPLE PHOSPHATE CRYSTAL,UR Moderate /HPF (None Seen)
--- NOTE | 2019-05-14 17:23 | NUR ---
RT NOTE RECEIVED PATIENT ON TRACH WITH COOL AEROSOL. TRACH IS PATENT AND SECURED. SPARE TRACH AND BVM IS AT BEDSIDE. PATIENT HAS EQUAL CHEST RISE AND COARSE BILATERAL BREATH SOUNDS. SUCTION MODERATE AMOUNT OF THICK GREEN/YELLOW SECRETIONS THROUGH OUT THE DAY. PATIENT WAS TACHYPNEA THROUGH OUT THE DAY DUE TO A FEVER. RN AWARE. Addendum: 05/14/19 at 1728 by WANDA NAM RT Amended: Links added.
--- NOTE | 2019-05-14 20:00 | NUR ---
RN NOTES Pt in stable condition. No respiratory distress noted. Will continue to monitor.
[2019-05-14 20:51] VITALS: BP 124/65
[2019-05-15] MEDS: IPRATROPIUM NEB FS 0.5 MG/2.5 ML AMPUL.NEB IH SCH ×4 (01:20→19:45)
[2019-05-15] MEDS: ALBUTEROL FS 2.5 MG/3 ML VIAL.NEB NEB SCH ×4 (01:20→19:45)
[2019-05-15] MEDS: METOCLOPRAMIDE HCL 10 MG/10 ML UDC GT SCH ×3 (05:42→17:36)
[2019-05-15] MEDS: LEVOTHYROXINE SODIUM 88 MCG TABLET GT SCH (05:42)
[2019-05-15] MEDS: OMEPRAZOLE 20 MG CAPSULE.DR GT SCH (05:42)
[2019-05-15] MEDS: HYDROGEN PEROXIDE 480 ML BOTTLE TP SCH ×2 (08:27→19:45)
[2019-05-15] MEDS: LEVETIRACETAM SOL (5 ML) 100 MG/ML UDC GT SCH ×2 (09:00→21:03)
[2019-05-15] MEDS: PROSTAT (PYXIS) 30 ML UDC GT SCH ×3 (09:00→17:36)
[2019-05-15] MEDS: ZINC SULFATE 220 MG CAPSULE GT SCH (09:00)
[2019-05-15] MEDS: TRIAMCINOLONE ACETONIDE 0.1% CR 15 GM TUBE TP SCH ×4 (09:00→21:06)
[2019-05-15] MEDS: MULTIVIT W/MINERALS 1 TAB TABLET GT SCH (09:00)
[2019-05-15] MEDS: NYSTATIN CREAM 15 GM TUBE TP SCH ×2 (09:00→21:06)
[2019-05-15] MEDS: ACETAMINOPHEN 650 MG/20 ML UDC- SA PATIENTS-PAIN ONLY GT SCH ×2 (09:00→21:04)
[2019-05-15] MEDS: ACIDOPHILUS/BULGARICUS 1 EACH TAB.CHEW GT SCH ×2 (09:00→17:36)
[2019-05-15] MEDS: CARBOXYMETHYLCELLULOSE SODIUM 0.4 ML DROPERETTE EACHEYE SCH (09:00)
[2019-05-15] MEDS: COD LIVER OIL/ZINC OXIDE 120 GM TUBE TP SCH ×2 (09:00→21:06)
[2019-05-15] MEDS: CHLORHEXIDINE GLUCONATE 15 ML UDC MM SCH ×2 (09:00→21:06)
[2019-05-15] MEDS: ASCORBIC ACID 500 MG TABLET GT SCH (09:00)
[2019-05-15 10:04] VITALS: BP 100/53
[2019-05-15] MEDS: GLUCERNA 1.2 1,000 ML BOTTLE GT PRN (19:27)
[2019-05-15 20:13] VITALS: BP 124/80
[2019-05-16] MEDS: METOCLOPRAMIDE HCL 10 MG/10 ML UDC GT SCH ×5 (00:19→23:49)
[2019-05-16] MEDS: ALBUTEROL FS 2.5 MG/3 ML VIAL.NEB NEB SCH ×4 (01:41→20:14)
[2019-05-16] MEDS: IPRATROPIUM NEB FS 0.5 MG/2.5 ML AMPUL.NEB IH SCH ×4 (01:41→20:14)
[2019-05-16] MEDS: LEVOTHYROXINE SODIUM 88 MCG TABLET GT SCH (05:40)
[2019-05-16] MEDS: OMEPRAZOLE 20 MG CAPSULE.DR GT SCH (05:40)
[2019-05-16 07:35] VITALS: BP 134/73
[2019-05-16] MEDS: PROSTAT (PYXIS) 30 ML UDC GT SCH ×3 (08:56→17:00)
[2019-05-16] MEDS: MULTIVIT W/MINERALS 1 TAB TABLET GT SCH (08:56)
[2019-05-16] MEDS: ZINC SULFATE 220 MG CAPSULE GT SCH (08:56)
[2019-05-16] MEDS: ASCORBIC ACID 500 MG TABLET GT SCH (08:56)
[2019-05-16] MEDS: ACIDOPHILUS/BULGARICUS 1 EACH TAB.CHEW GT SCH ×2 (08:56→17:00)
[2019-05-16] MEDS: CARBOXYMETHYLCELLULOSE SODIUM 0.4 ML DROPERETTE EACHEYE SCH (08:56)
[2019-05-16] MEDS: LEVETIRACETAM SOL (5 ML) 100 MG/ML UDC GT SCH ×2 (08:56→20:45)
[2019-05-16] MEDS: ACETAMINOPHEN 650 MG/20 ML UDC- SA PATIENTS-PAIN ONLY GT SCH ×2 (08:56→20:45)
[2019-05-16] MEDS: TRIAMCINOLONE ACETONIDE 0.1% CR 15 GM TUBE TP SCH ×4 (08:57→20:45)
[2019-05-16] MEDS: NYSTATIN CREAM 15 GM TUBE TP SCH ×2 (08:58→20:46)
[2019-05-16] MEDS: COD LIVER OIL/ZINC OXIDE 120 GM TUBE TP SCH ×2 (08:58→20:46)
[2019-05-16] MEDS: CHLORHEXIDINE GLUCONATE 15 ML UDC MM SCH ×2 (09:00→20:45)
[2019-05-16] MEDS: HYDROGEN PEROXIDE 480 ML BOTTLE TP SCH ×2 (09:59→21:20)
[2019-05-16] MEDS: GLUCERNA 1.2 1,000 ML BOTTLE GT PRN (12:37)
[2019-05-16 20:11] VITALS: BP 135/71
[2019-05-17] MEDS: IPRATROPIUM NEB FS 0.5 MG/2.5 ML AMPUL.NEB IH SCH ×5 (01:36→23:04)
[2019-05-17] MEDS: ALBUTEROL FS 2.5 MG/3 ML VIAL.NEB NEB SCH ×5 (01:37→23:04)
[2019-05-17] MEDS: METOCLOPRAMIDE HCL 10 MG/10 ML UDC GT SCH ×4 (05:20→23:52)
[2019-05-17] MEDS: OMEPRAZOLE 20 MG CAPSULE.DR GT SCH (05:20)
[2019-05-17] MEDS: LEVOTHYROXINE SODIUM 88 MCG TABLET GT SCH (05:20)
[2019-05-17] MEDS: ACETAMINOPHEN 650 MG/20 ML UDC- SA PATIENTS-PAIN ONLY GT PRN ×2 (06:07→16:30)
--- NOTE | 2019-05-17 06:07 | NUR ---
Patient noted with abdominal breathing, suctioned by RT and PRN HHN treatment given.Temp 99.0,facial grimacing noted. Tylenol via gt given,will continue to monitor.
[2019-05-17 07:33] VITALS: BP 129/71
[2019-05-17] MEDS: HYDROGEN PEROXIDE 480 ML BOTTLE TP SCH ×2 (08:06→19:32)
[2019-05-17] MEDS: CARBOXYMETHYLCELLULOSE SODIUM 0.4 ML DROPERETTE EACHEYE SCH (09:00)
[2019-05-17] MEDS: CHLORHEXIDINE GLUCONATE 15 ML UDC MM SCH ×2 (09:00→21:02)
[2019-05-17] MEDS: LEVETIRACETAM SOL (5 ML) 100 MG/ML UDC GT SCH ×2 (09:00→21:02)
[2019-05-17] MEDS: ASCORBIC ACID 500 MG TABLET GT SCH (09:00)
[2019-05-17] MEDS: PROSTAT (PYXIS) 30 ML UDC GT SCH ×3 (09:00→16:19)
[2019-05-17] MEDS: MULTIVIT W/MINERALS 1 TAB TABLET GT SCH (09:00)
[2019-05-17] MEDS: ACIDOPHILUS/BULGARICUS 1 EACH TAB.CHEW GT SCH ×2 (09:00→16:19)
[2019-05-17] MEDS: ZINC SULFATE 220 MG CAPSULE GT SCH (09:00)
[2019-05-17] MEDS: ACETAMINOPHEN 650 MG/20 ML UDC- SA PATIENTS-PAIN ONLY GT SCH ×2 (10:15→21:24)
[2019-05-17] MEDS: NYSTATIN CREAM 15 GM TUBE TP SCH ×2 (10:45→21:07)
[2019-05-17] MEDS: COD LIVER OIL/ZINC OXIDE 120 GM TUBE TP SCH ×2 (10:45→21:06)
[2019-05-17] MEDS: TRIAMCINOLONE ACETONIDE 0.1% CR 15 GM TUBE TP SCH ×3 (10:45→21:06)
--- NOTE | 2019-05-17 14:30 | NUR ---
Notified resident's daughter Reyna, responsible libertarian of patient's current condition. Patient having low grade temperature and with episode of shortness of breath which is relieved by breathing treatment. According to Reyna, she does not want patient to be transferred to acute and no ATB as indicated in the preferred intensity of care. She said that she is OK to increase frequency of breathing treatment if that gives patient comfort. She mentioned that eventually she will put patient on hospice. Cooling measure provided and Tylenol given PRN for temperature management.
--- NOTE | 2019-05-17 14:55 | NUR ---
Notified Dr. Ross that upon talking with resident's daughter Reyna she indicated no transfer to acute hospital, no ATB and to use cooling measure and Tylenol to manage her fever. However she agreed to increase routine breathing treatment to manage episode of SOB. Dr. Ross seen and examined by MD increased routine breathing treatment to Q4 hours x 5 days. Order carried out.
[2019-05-17] MEDS: GLUCERNA 1.2 1,000 ML BOTTLE GT PRN (16:21)
--- NOTE | 2019-05-17 19:00 | NUR ---
Resident's daughter Marielena Miller at bedside asking a lot of questions regarding patient's condition, demanding an answer of what is what is being done to her mom. Explained to Marielena Miller that intervention/plan cannot be discuss with her but advised to speak to her sister Reyna regarding the information she is seeking.. She said "I will inform my other sisters and my aunt and if I need to take this to the higher up, I will do it, she cannot do this." Patient is comfortable at tis time, however face is flush due to low grade temp. Endorsed.
[2019-05-17 20:55] VITALS: BP 99/55
[2019-05-18] MEDS: IPRATROPIUM NEB FS 0.5 MG/2.5 ML AMPUL.NEB IH SCH ×6 (03:38→22:59)
[2019-05-18] MEDS: ALBUTEROL FS 2.5 MG/3 ML VIAL.NEB NEB SCH ×6 (03:38→22:59)
--- NOTE | 2019-05-18 04:19 | NUR ---
RT NOTE: RECEIVED TRACH PT ON 35% COOL AEROSOL. PT HAS MILD EPISODES OF TACHYPNEA DUE TO LOW GRADE FEVER. RN AWARE AND MONITORING PT CLOSELY. TRACH CHECKED SECURE AND PATENT. SXD AND LAVAGE Q ROUND AND NEEDED. TXS GIVEN ORDERED WITH NO ADVERSE REACTIONS NOTED. TRACH CARE DONE. SPARE TRACH AND AMBU BAG @ BEDSIDE.
[2019-05-18] MEDS: ACETAMINOPHEN 650 MG/20 ML UDC- SA PATIENTS-PAIN ONLY GT PRN (04:30)
[2019-05-18] MEDS: OMEPRAZOLE 20 MG CAPSULE.DR GT SCH (05:54)
[2019-05-18] MEDS: METOCLOPRAMIDE HCL 10 MG/10 ML UDC GT SCH ×3 (05:54→17:08)
[2019-05-18] MEDS: LEVOTHYROXINE SODIUM 88 MCG TABLET GT SCH (05:54)
[2019-05-18 07:56] VITALS: BP 110/70
[2019-05-18] MEDS: PROSTAT (PYXIS) 30 ML UDC GT SCH ×3 (08:56→16:56)
[2019-05-18] MEDS: CARBOXYMETHYLCELLULOSE SODIUM 0.4 ML DROPERETTE EACHEYE SCH (08:56)
[2019-05-18] MEDS: ACIDOPHILUS/BULGARICUS 1 EACH TAB.CHEW GT SCH ×2 (08:56→16:56)
[2019-05-18] MEDS: LEVETIRACETAM SOL (5 ML) 100 MG/ML UDC GT SCH ×2 (08:56→20:12)
[2019-05-18] MEDS: ASCORBIC ACID 500 MG TABLET GT SCH (08:57)
[2019-05-18] MEDS: ACETAMINOPHEN 650 MG/20 ML UDC- SA PATIENTS-PAIN ONLY GT SCH ×2 (08:57→20:13)
[2019-05-18] MEDS: ZINC SULFATE 220 MG CAPSULE GT SCH (08:57)
[2019-05-18] MEDS: CHLORHEXIDINE GLUCONATE 15 ML UDC MM SCH ×2 (08:57→20:13)
[2019-05-18] MEDS: MULTIVIT W/MINERALS 1 TAB TABLET GT SCH (09:00)
[2019-05-18] MEDS: HYDROGEN PEROXIDE 480 ML BOTTLE TP SCH ×2 (09:00→19:27)
[2019-05-18] MEDS: TRIAMCINOLONE ACETONIDE 0.1% CR 15 GM TUBE TP SCH ×2 (09:57→20:13)
[2019-05-18] MEDS: COD LIVER OIL/ZINC OXIDE 120 GM TUBE TP SCH ×2 (09:57→20:13)
[2019-05-18] MEDS: NYSTATIN CREAM 15 GM TUBE TP SCH ×2 (09:57→20:13)
[2019-05-18] MEDS: GLUCERNA 1.2 1,000 ML BOTTLE GT PRN (11:41)
--- NOTE | 2019-05-18 14:30 | NUR ---
Patients' daughter filomena came, noted some bleeding to patients' drain sponge (trach site). Per RT Giacomo he changed the trach earlier due to trach change protocol. No respiratory distress noted at this time. Suctioned as needed. Kept HOB elevated at all times for comfort measures. Patients' daughter filomena at bedside, made her aware patient was just given total bed bath and did not bring to shower due to episode of pts' respiratory distress yesterday. Patient closely monitored.
[2019-05-18 23:37] VITALS: BP 126/71
[2019-05-19] MEDS: METOCLOPRAMIDE HCL 10 MG/10 ML UDC GT SCH ×4 (00:10→17:27)
[2019-05-19] MEDS: IPRATROPIUM NEB FS 0.5 MG/2.5 ML AMPUL.NEB IH SCH ×5 (03:18→23:35)
[2019-05-19] MEDS: ALBUTEROL FS 2.5 MG/3 ML VIAL.NEB NEB SCH ×5 (03:18→23:35)
--- NOTE | 2019-05-19 04:24 | NUR ---
RT NOTE: RECEIVED TRACH PT ON 35% COOL AEROSOL. NO RESPIRATORY DISTRESS NOTED. TRACH CHECKED SECURE AND PATENT. SXD AND LAVAGE Q ROUND AND NEEDED. TXS GIVEN ORDERED WITH NO ADVERSE REACTIONS NOTED. TRACH CARE DONE. SPARE TRACH AND AMBU BAG @ BEDSIDE.
[2019-05-19] MEDS: LEVOTHYROXINE SODIUM 88 MCG TABLET GT SCH (05:04)
[2019-05-19] MEDS: OMEPRAZOLE 20 MG CAPSULE.DR GT SCH (05:04)
--- NOTE | 2019-05-19 07:08 | NUR ---
patient asleep calm. no s/s of distress noted. patient had no temperature the whole shift. will endorse to upcoming nurse.
[2019-05-19] MEDS: HYDROGEN PEROXIDE 480 ML BOTTLE TP SCH ×2 (07:39→21:15)
[2019-05-19 07:46] VITALS: BP 129/65
[2019-05-19] MEDS: CHLORHEXIDINE GLUCONATE 15 ML UDC MM SCH ×2 (09:00→20:23)
[2019-05-19] MEDS: TRIAMCINOLONE ACETONIDE 0.1% CR 15 GM TUBE TP SCH ×2 (09:00→21:22)
[2019-05-19] MEDS: COD LIVER OIL/ZINC OXIDE 120 GM TUBE TP SCH ×2 (09:00→21:22)
[2019-05-19] MEDS: ASCORBIC ACID 500 MG TABLET GT SCH (09:00)
[2019-05-19] MEDS: NYSTATIN CREAM 15 GM TUBE TP SCH ×2 (09:00→21:22)
[2019-05-19] MEDS: ZINC SULFATE 220 MG CAPSULE GT SCH (09:00)
[2019-05-19] MEDS: ACETAMINOPHEN 650 MG/20 ML UDC- SA PATIENTS-PAIN ONLY GT SCH ×2 (09:00→20:23)
[2019-05-19] MEDS: ACIDOPHILUS/BULGARICUS 1 EACH TAB.CHEW GT SCH ×2 (09:59→17:26)
[2019-05-19] MEDS: LEVETIRACETAM SOL (5 ML) 100 MG/ML UDC GT SCH ×2 (09:59→20:23)
[2019-05-19] MEDS: PROSTAT (PYXIS) 30 ML UDC GT SCH ×3 (09:59→17:26)
[2019-05-19] MEDS: CARBOXYMETHYLCELLULOSE SODIUM 0.4 ML DROPERETTE EACHEYE SCH (09:59)
[2019-05-19] MEDS: MULTIVIT W/MINERALS 1 TAB TABLET GT SCH (09:59)
[2019-05-19] MEDS: GLUCERNA 1.2 1,000 ML BOTTLE GT PRN (12:08)
--- NOTE | 2019-05-19 20:02 | NUR ---
RT NOTES PT RECEIVED TRACHED ON COOL AEROSOL 35%. NO SIGNS OF RESP DISTRESS/SOB NOTED. AIRWAY PATENT AND SECURED. PT SUCTIONED. HHN TX GIVEN. NO ADVERSE REACTIONS NOTED. AMBUBAG AND SPARE TRACH AT BEDSIDE. WILL CONT TO MONITOR. Addendum: 05/20/19 at 0319 by GAVIN MARTINEZ RT Amended: Links added.
[2019-05-19 20:45] VITALS: BP 117/67
[2019-05-20] MEDS: METOCLOPRAMIDE HCL 10 MG/10 ML UDC GT SCH ×4 (00:57→17:42)
[2019-05-20] MEDS: IPRATROPIUM NEB FS 0.5 MG/2.5 ML AMPUL.NEB IH SCH ×5 (03:08→19:20)
[2019-05-20] MEDS: ALBUTEROL FS 2.5 MG/3 ML VIAL.NEB NEB SCH ×5 (03:08→19:20)
[2019-05-20] MEDS: OMEPRAZOLE 20 MG CAPSULE.DR GT SCH (05:03)
[2019-05-20] MEDS: GLUCERNA 1.2 1,000 ML BOTTLE GT PRN (05:04)
[2019-05-20] MEDS: LEVOTHYROXINE SODIUM 88 MCG TABLET GT SCH (05:04)
[2019-05-20 08:02] VITALS: BP 121/72
[2019-05-20] MEDS: ACIDOPHILUS/BULGARICUS 1 EACH TAB.CHEW GT SCH ×2 (08:51→17:42)
[2019-05-20] MEDS: MULTIVIT W/MINERALS 1 TAB TABLET GT SCH (08:51)
[2019-05-20] MEDS: PROSTAT (PYXIS) 30 ML UDC GT SCH ×3 (08:51→17:42)
[2019-05-20] MEDS: CARBOXYMETHYLCELLULOSE SODIUM 0.4 ML DROPERETTE EACHEYE SCH (08:51)
[2019-05-20] MEDS: LEVETIRACETAM SOL (5 ML) 100 MG/ML UDC GT SCH ×2 (08:51→20:44)
[2019-05-20] MEDS: ZINC SULFATE 220 MG CAPSULE GT SCH (08:52)
[2019-05-20] MEDS: COD LIVER OIL/ZINC OXIDE 120 GM TUBE TP SCH ×2 (08:52→21:43)
[2019-05-20] MEDS: ACETAMINOPHEN 650 MG/20 ML UDC- SA PATIENTS-PAIN ONLY GT SCH ×2 (08:52→20:44)
[2019-05-20] MEDS: TRIAMCINOLONE ACETONIDE 0.1% CR 15 GM TUBE TP SCH ×2 (08:52→21:41)
[2019-05-20] MEDS: NYSTATIN CREAM 15 GM TUBE TP SCH ×2 (08:52→21:43)
[2019-05-20] MEDS: CHLORHEXIDINE GLUCONATE 15 ML UDC MM SCH ×2 (08:52→20:44)
[2019-05-20] MEDS: ASCORBIC ACID 500 MG TABLET GT SCH (08:52)
[2019-05-20] MEDS: HYDROGEN PEROXIDE 480 ML BOTTLE TP SCH ×2 (09:20→21:00)
[2019-05-20 20:13] VITALS: BP 140/72
[2019-05-21] MEDS: METOCLOPRAMIDE HCL 10 MG/10 ML UDC GT SCH ×4 (00:14→17:55)
[2019-05-21] MEDS: ALBUTEROL FS 2.5 MG/3 ML VIAL.NEB NEB SCH ×7 (03:30→23:32)
[2019-05-21] MEDS: IPRATROPIUM NEB FS 0.5 MG/2.5 ML AMPUL.NEB IH SCH ×7 (03:30→23:32)
[2019-05-21] MEDS: LEVOTHYROXINE SODIUM 88 MCG TABLET GT SCH (05:22)
[2019-05-21] MEDS: OMEPRAZOLE 20 MG CAPSULE.DR GT SCH (05:22)
[2019-05-21 07:57] VITALS: BP 136/66
[2019-05-21] MEDS: HYDROGEN PEROXIDE 480 ML BOTTLE TP SCH ×2 (08:10→21:00)
[2019-05-21] MEDS: MULTIVIT W/MINERALS 1 TAB TABLET GT SCH (08:35)
[2019-05-21] MEDS: CARBOXYMETHYLCELLULOSE SODIUM 0.4 ML DROPERETTE EACHEYE SCH (08:35)
[2019-05-21] MEDS: LEVETIRACETAM SOL (5 ML) 100 MG/ML UDC GT SCH ×2 (08:35→20:30)
[2019-05-21] MEDS: ACIDOPHILUS/BULGARICUS 1 EACH TAB.CHEW GT SCH ×2 (08:35→17:55)
[2019-05-21] MEDS: PROSTAT (PYXIS) 30 ML UDC GT SCH ×3 (08:35→17:55)
[2019-05-21] MEDS: ACETAMINOPHEN 650 MG/20 ML UDC- SA PATIENTS-PAIN ONLY GT SCH ×2 (08:36→20:31)
[2019-05-21] MEDS: ASCORBIC ACID 500 MG TABLET GT SCH (08:36)
[2019-05-21] MEDS: ZINC SULFATE 220 MG CAPSULE GT SCH (08:37)
[2019-05-21] MEDS: CHLORHEXIDINE GLUCONATE 15 ML UDC MM SCH ×2 (08:37→20:31)
[2019-05-21] MEDS: COD LIVER OIL/ZINC OXIDE 120 GM TUBE TP SCH ×2 (08:52→21:38)
[2019-05-21] MEDS: NYSTATIN CREAM 15 GM TUBE TP SCH ×2 (08:52→21:38)
[2019-05-21] MEDS: TRIAMCINOLONE ACETONIDE 0.1% CR 15 GM TUBE TP SCH ×2 (08:52→21:38)
--- NOTE | 2019-05-21 10:18 | NUR ---
Seen and examined by Dr. Monet, no new order given.
--- NOTE | 2019-05-21 17:51 | NUR ---
RT NOTE RECEIVED PATIENT WITH TRACH ON COOL AEROSOL. TRACH IS PATENT AND SECURED. SPARE TRACH AND BVM IS AT BEDSIDE. PATIENT HAS EQUAL CHEST RISE WITH COARSE AND DIMINISHED BILATERAL BREATH SOUNDS. SUCTION SMALL AMOUNT OF GREEN THICK SECRETIONS THROUGH OUT THE DAY. PATIENT TOLERATED Q4 BREATHING TREATMENTS WELL. Addendum: 05/21/19 at 1751 by WANDA NAM RT Amended: Links added.
[2019-05-21 20:49] VITALS: BP 128/73
[2019-05-22] MEDS: METOCLOPRAMIDE HCL 10 MG/10 ML UDC GT SCH ×5 (00:03→23:51)
[2019-05-22] MEDS: ALBUTEROL FS 2.5 MG/3 ML VIAL.NEB NEB SCH ×5 (03:07→19:50)
[2019-05-22] MEDS: IPRATROPIUM NEB FS 0.5 MG/2.5 ML AMPUL.NEB IH SCH ×5 (03:07→19:50)
[2019-05-22] MEDS: LEVOTHYROXINE SODIUM 88 MCG TABLET GT SCH (05:04)
[2019-05-22] MEDS: OMEPRAZOLE 20 MG CAPSULE.DR GT SCH (05:04)
[2019-05-22] MEDS: GLUCERNA 1.2 1,000 ML BOTTLE GT PRN (05:05)
[2019-05-22 07:55] VITALS: BP 130/70
[2019-05-22] MEDS: HYDROGEN PEROXIDE 480 ML BOTTLE TP SCH ×2 (08:17→19:50)
[2019-05-22] MEDS: ACIDOPHILUS/BULGARICUS 1 EACH TAB.CHEW GT SCH ×2 (09:09→16:41)
[2019-05-22] MEDS: PROSTAT (PYXIS) 30 ML UDC GT SCH ×3 (09:09→16:41)
[2019-05-22] MEDS: MULTIVIT W/MINERALS 1 TAB TABLET GT SCH (09:09)
[2019-05-22] MEDS: LEVETIRACETAM SOL (5 ML) 100 MG/ML UDC GT SCH ×2 (09:09→20:29)
[2019-05-22] MEDS: CARBOXYMETHYLCELLULOSE SODIUM 0.4 ML DROPERETTE EACHEYE SCH (09:09)
[2019-05-22] MEDS: ACETAMINOPHEN 650 MG/20 ML UDC- SA PATIENTS-PAIN ONLY GT SCH ×2 (09:10→20:30)
[2019-05-22] MEDS: ZINC SULFATE 220 MG CAPSULE GT SCH (09:10)
[2019-05-22] MEDS: ASCORBIC ACID 500 MG TABLET GT SCH (09:10)
[2019-05-22] MEDS: CHLORHEXIDINE GLUCONATE 15 ML UDC MM SCH ×2 (09:10→20:30)
[2019-05-22] MEDS: TRIAMCINOLONE ACETONIDE 0.1% CR 15 GM TUBE TP SCH ×2 (09:14→21:38)
[2019-05-22] MEDS: NYSTATIN CREAM 15 GM TUBE TP SCH ×2 (09:15→21:38)
[2019-05-22] MEDS: COD LIVER OIL/ZINC OXIDE 120 GM TUBE TP SCH ×2 (09:15→21:38)
[2019-05-22 20:07] VITALS: BP 130/80
[2019-05-23] MEDS: ALBUTEROL FS 2.5 MG/3 ML VIAL.NEB NEB SCH ×4 (01:51→20:09)
[2019-05-23] MEDS: IPRATROPIUM NEB FS 0.5 MG/2.5 ML AMPUL.NEB IH SCH ×4 (01:51→20:09)
[2019-05-23] MEDS: METOCLOPRAMIDE HCL 10 MG/10 ML UDC GT SCH ×4 (05:03→23:21)
[2019-05-23] MEDS: OMEPRAZOLE 20 MG CAPSULE.DR GT SCH (05:03)
[2019-05-23] MEDS: LEVOTHYROXINE SODIUM 88 MCG TABLET GT SCH (05:03)
[2019-05-23 07:42] VITALS: BP 137/70
[2019-05-23] MEDS: COD LIVER OIL/ZINC OXIDE 120 GM TUBE TP SCH ×2 (09:00→20:05)
[2019-05-23] MEDS: NYSTATIN CREAM 15 GM TUBE TP SCH ×2 (09:00→20:05)
[2019-05-23] MEDS: CARBOXYMETHYLCELLULOSE SODIUM 0.4 ML DROPERETTE EACHEYE SCH (09:37)
[2019-05-23] MEDS: LEVETIRACETAM SOL (5 ML) 100 MG/ML UDC GT SCH ×2 (09:37→20:04)
[2019-05-23] MEDS: PROSTAT (PYXIS) 30 ML UDC GT SCH ×3 (09:37→16:38)
[2019-05-23] MEDS: ACIDOPHILUS/BULGARICUS 1 EACH TAB.CHEW GT SCH ×2 (09:37→16:38)
[2019-05-23] MEDS: MULTIVIT W/MINERALS 1 TAB TABLET GT SCH (09:37)
[2019-05-23] MEDS: ZINC SULFATE 220 MG CAPSULE GT SCH (09:38)
[2019-05-23] MEDS: ACETAMINOPHEN 650 MG/20 ML UDC- SA PATIENTS-PAIN ONLY GT SCH ×2 (09:38→20:04)
[2019-05-23] MEDS: CHLORHEXIDINE GLUCONATE 15 ML UDC MM SCH ×2 (09:38→20:04)
[2019-05-23] MEDS: ASCORBIC ACID 500 MG TABLET GT SCH (09:38)
[2019-05-23] MEDS: TRIAMCINOLONE ACETONIDE 0.1% CR 15 GM TUBE TP SCH ×2 (09:38→20:04)
[2019-05-23] MEDS: HYDROGEN PEROXIDE 480 ML BOTTLE TP SCH ×2 (12:57→20:09)
[2019-05-23] MEDS: GLUCERNA 1.2 1,000 ML BOTTLE GT PRN (17:54)
--- NOTE | 2019-05-23 20:46 | NUR ---
RT NOTE PT RECEIVED AWAKE/NONVERBAL TRACHED ON COOL AEROSOL @ 28%. AMBU BAG/BACK UP TRACH @ BEDSIDE. TX GIVEN, NO ADVERSE REACTIONS NOTED. SX DONE, TRACH SECURED AND PATENT. ALARMS ON AND AUDIBLE. NO SOB NOTED AT THIS TIME. WATER LEVEL GOOD. WILL CONTINUE TO MONITOR T/O SHIFT. Addendum: 05/23/19 at 2046 by LETITIA BENITES RT Amended: Links added.
[2019-05-24] MEDS: GLUCERNA 1.2 1,000 ML BOTTLE GT PRN ×2 (01:00→22:06)
[2019-05-24] MEDS: IPRATROPIUM NEB FS 0.5 MG/2.5 ML AMPUL.NEB IH SCH ×4 (01:53→19:40)
[2019-05-24] MEDS: ALBUTEROL FS 2.5 MG/3 ML VIAL.NEB NEB SCH ×4 (01:53→19:40)
[2019-05-24] MEDS: OMEPRAZOLE 20 MG CAPSULE.DR GT SCH (06:05)
[2019-05-24] MEDS: METOCLOPRAMIDE HCL 10 MG/10 ML UDC GT SCH ×4 (06:05→23:34)
[2019-05-24] MEDS: LEVOTHYROXINE SODIUM 88 MCG TABLET GT SCH (06:06)
[2019-05-24 07:40] VITALS: BP 140/90
[2019-05-24] MEDS: CHLORHEXIDINE GLUCONATE 15 ML UDC MM SCH ×2 (08:30→20:38)
[2019-05-24] MEDS: ASCORBIC ACID 500 MG TABLET GT SCH (08:30)
[2019-05-24] MEDS: PROSTAT (PYXIS) 30 ML UDC GT SCH ×3 (08:30→16:07)
[2019-05-24] MEDS: CARBOXYMETHYLCELLULOSE SODIUM 0.4 ML DROPERETTE EACHEYE SCH (08:30)
[2019-05-24] MEDS: ZINC SULFATE 220 MG CAPSULE GT SCH (08:30)
[2019-05-24] MEDS: ACIDOPHILUS/BULGARICUS 1 EACH TAB.CHEW GT SCH ×2 (08:30→16:07)
[2019-05-24] MEDS: MULTIVIT W/MINERALS 1 TAB TABLET GT SCH (08:30)
[2019-05-24] MEDS: ACETAMINOPHEN 650 MG/20 ML UDC- SA PATIENTS-PAIN ONLY GT SCH ×2 (08:30→20:38)
[2019-05-24] MEDS: LEVETIRACETAM SOL (5 ML) 100 MG/ML UDC GT SCH ×2 (08:30→20:38)
[2019-05-24] MEDS: NYSTATIN CREAM 15 GM TUBE TP SCH ×2 (09:00→21:41)
[2019-05-24] MEDS: HYDROGEN PEROXIDE 480 ML BOTTLE TP SCH ×2 (09:00→21:05)
[2019-05-24] MEDS: TRIAMCINOLONE ACETONIDE 0.1% CR 15 GM TUBE TP SCH ×2 (09:00→21:40)
[2019-05-24] MEDS: COD LIVER OIL/ZINC OXIDE 120 GM TUBE TP SCH ×2 (09:00→21:40)
--- NOTE | 2019-05-24 16:15 | NUR ---
INTERDISCIPLINARY PLAN OF CARE CONFERENCE was held today. The patients responsible republican/daughter, Reyna Galindo [phone] was not able to attend or participate via phone conference. Charge nurse discussed the patient has experiencing a low-grade fever and SOB and DPOA, Reyna is informed and does not want patient transferred to acute and no ATB as indicated in the preferred intensity of care. However, Reyna was agreeable to increasing frequency of breathing treatment to keep pt. comfortable, per charge nurse. Dr. Monet and Interdisciplinary team discussed the plan of care in detail. Current orders as well as treatments and medications were reviewed. Please see other disciplines IDT notes for further details.
[2019-05-24 20:01] VITALS: BP 126/74
[2019-05-25] MEDS: ALBUTEROL FS 2.5 MG/3 ML VIAL.NEB NEB SCH ×3 (01:31→19:30)
[2019-05-25] MEDS: IPRATROPIUM NEB FS 0.5 MG/2.5 ML AMPUL.NEB IH SCH ×3 (01:31→19:30)
[2019-05-25] MEDS: METOCLOPRAMIDE HCL 10 MG/10 ML UDC GT SCH ×4 (06:04→23:56)
[2019-05-25] MEDS: LEVOTHYROXINE SODIUM 88 MCG TABLET GT SCH (06:04)
[2019-05-25] MEDS: OMEPRAZOLE 20 MG CAPSULE.DR GT SCH (06:04)
[2019-05-25 07:43] VITALS: BP 121/57
[2019-05-25] MEDS: HYDROGEN PEROXIDE 480 ML BOTTLE TP SCH ×2 (08:15→21:56)
[2019-05-25] MEDS: ACIDOPHILUS/BULGARICUS 1 EACH TAB.CHEW GT SCH ×2 (08:50→16:33)
[2019-05-25] MEDS: CARBOXYMETHYLCELLULOSE SODIUM 0.4 ML DROPERETTE EACHEYE SCH (08:50)
[2019-05-25] MEDS: PROSTAT (PYXIS) 30 ML UDC GT SCH ×3 (08:50→16:33)
[2019-05-25] MEDS: CHLORHEXIDINE GLUCONATE 15 ML UDC MM SCH ×2 (08:51→21:06)
[2019-05-25] MEDS: ZINC SULFATE 220 MG CAPSULE GT SCH (08:51)
[2019-05-25] MEDS: ASCORBIC ACID 500 MG TABLET GT SCH (08:51)
[2019-05-25] MEDS: LEVETIRACETAM SOL (5 ML) 100 MG/ML UDC GT SCH ×2 (08:58→21:02)
[2019-05-25] MEDS: MULTIVIT W/MINERALS 1 TAB TABLET GT SCH (08:58)
[2019-05-25] MEDS: ACETAMINOPHEN 650 MG/20 ML UDC- SA PATIENTS-PAIN ONLY GT SCH ×2 (08:58→21:06)
[2019-05-25] MEDS: COD LIVER OIL/ZINC OXIDE 120 GM TUBE TP SCH ×2 (09:00→21:06)
[2019-05-25] MEDS: TRIAMCINOLONE ACETONIDE 0.1% CR 15 GM TUBE TP SCH ×2 (09:00→21:06)
[2019-05-25] MEDS: NYSTATIN CREAM 15 GM TUBE TP SCH ×2 (09:00→21:06)
[2019-05-25 20:11] VITALS: BP 123/60
[2019-05-26] MEDS: GLUCERNA 1.2 1,000 ML BOTTLE GT PRN ×2 (00:06→21:00)
[2019-05-26] MEDS: IPRATROPIUM NEB FS 0.5 MG/2.5 ML AMPUL.NEB IH SCH ×4 (00:53→19:43)
[2019-05-26] MEDS: ALBUTEROL FS 2.5 MG/3 ML VIAL.NEB NEB SCH ×4 (00:53→19:43)
[2019-05-26] MEDS: LEVOTHYROXINE SODIUM 88 MCG TABLET GT SCH (05:32)
[2019-05-26] MEDS: METOCLOPRAMIDE HCL 10 MG/10 ML UDC GT SCH ×4 (05:32→23:21)
[2019-05-26] MEDS: OMEPRAZOLE 20 MG CAPSULE.DR GT SCH (05:32)
[2019-05-26 07:37] VITALS: BP 138/78
[2019-05-26] MEDS: LEVETIRACETAM SOL (5 ML) 100 MG/ML UDC GT SCH ×2 (08:44→20:21)
[2019-05-26] MEDS: PROSTAT (PYXIS) 30 ML UDC GT SCH ×3 (08:44→16:28)
[2019-05-26] MEDS: MULTIVIT W/MINERALS 1 TAB TABLET GT SCH (08:44)
[2019-05-26] MEDS: CARBOXYMETHYLCELLULOSE SODIUM 0.4 ML DROPERETTE EACHEYE SCH (08:44)
[2019-05-26] MEDS: ACIDOPHILUS/BULGARICUS 1 EACH TAB.CHEW GT SCH ×2 (08:44→16:28)
[2019-05-26] MEDS: ACETAMINOPHEN 650 MG/20 ML UDC- SA PATIENTS-PAIN ONLY GT SCH ×2 (08:46→20:21)
[2019-05-26] MEDS: CHLORHEXIDINE GLUCONATE 15 ML UDC MM SCH ×2 (08:47→20:21)
[2019-05-26] MEDS: ZINC SULFATE 220 MG CAPSULE GT SCH (08:47)
[2019-05-26] MEDS: ASCORBIC ACID 500 MG TABLET GT SCH (08:47)
[2019-05-26] MEDS: NYSTATIN CREAM 15 GM TUBE TP SCH ×2 (09:00→20:21)
[2019-05-26] MEDS: COD LIVER OIL/ZINC OXIDE 120 GM TUBE TP SCH ×2 (09:00→20:21)
[2019-05-26] MEDS: TRIAMCINOLONE ACETONIDE 0.1% CR 15 GM TUBE TP SCH ×2 (09:00→20:21)
[2019-05-26] MEDS: HYDROGEN PEROXIDE 480 ML BOTTLE TP SCH ×2 (09:45→21:03)
[2019-05-26 19:51] VITALS: BP 128/74
[2019-05-27] MEDS: ALBUTEROL FS 2.5 MG/3 ML VIAL.NEB NEB SCH ×4 (01:34→20:15)
[2019-05-27] MEDS: IPRATROPIUM NEB FS 0.5 MG/2.5 ML AMPUL.NEB IH SCH ×4 (01:34→20:15)
[2019-05-27] MEDS: LEVOTHYROXINE SODIUM 88 MCG TABLET GT SCH (05:22)
[2019-05-27] MEDS: OMEPRAZOLE 20 MG CAPSULE.DR GT SCH (05:22)
[2019-05-27] MEDS: METOCLOPRAMIDE HCL 10 MG/10 ML UDC GT SCH ×4 (05:22→23:05)
[2019-05-27] MEDS: HYDROGEN PEROXIDE 480 ML BOTTLE TP SCH ×2 (07:57→21:00)
[2019-05-27 08:00] VITALS: BP 125/61
[2019-05-27] MEDS: PROSTAT (PYXIS) 30 ML UDC GT SCH ×3 (08:49→16:35)
[2019-05-27] MEDS: CARBOXYMETHYLCELLULOSE SODIUM 0.4 ML DROPERETTE EACHEYE SCH (08:49)
[2019-05-27] MEDS: LEVETIRACETAM SOL (5 ML) 100 MG/ML UDC GT SCH ×2 (08:49→20:13)
[2019-05-27] MEDS: MULTIVIT W/MINERALS 1 TAB TABLET GT SCH (08:49)
[2019-05-27] MEDS: ACIDOPHILUS/BULGARICUS 1 EACH TAB.CHEW GT SCH ×2 (08:49→16:35)
[2019-05-27] MEDS: CHLORHEXIDINE GLUCONATE 15 ML UDC MM SCH ×2 (08:50→20:14)
[2019-05-27] MEDS: ACETAMINOPHEN 650 MG/20 ML UDC- SA PATIENTS-PAIN ONLY GT SCH ×2 (08:50→20:14)
[2019-05-27] MEDS: ASCORBIC ACID 500 MG TABLET GT SCH (08:50)
[2019-05-27] MEDS: ZINC SULFATE 220 MG CAPSULE GT SCH (08:50)
[2019-05-27] MEDS: TRIAMCINOLONE ACETONIDE 0.1% CR 15 GM TUBE TP SCH ×2 (08:53→20:14)
[2019-05-27] MEDS: COD LIVER OIL/ZINC OXIDE 120 GM TUBE TP SCH ×2 (08:54→20:14)
[2019-05-27] MEDS: NYSTATIN CREAM 15 GM TUBE TP SCH ×2 (08:54→20:15)
--- NOTE | 2019-05-27 14:25 | NUR ---
Seen and examined by Dr. Ross and FURNITURE DIPPER Becca Smith NNO given.
[2019-05-27 20:09] VITALS: BP 117/60
--- NOTE | 2019-05-27 20:31 | NUR ---
RT pt received on cool aerosol. trached with shiley 6. hob at 30 degrees. ambu bag at head of bed. spare trach at bedside. minimal secretions. no sob. no resp distress. will continue to monitor Addendum: 05/27/19 at 2350 by MONIQUE HOUSER RT Amended: Links added.
[2019-05-27] MEDS: GLUCERNA 1.2 1,000 ML BOTTLE GT PRN (22:04)
[2019-05-28] MEDS: ALBUTEROL FS 2.5 MG/3 ML VIAL.NEB NEB SCH ×4 (02:14→19:29)
[2019-05-28] MEDS: IPRATROPIUM NEB FS 0.5 MG/2.5 ML AMPUL.NEB IH SCH ×4 (02:14→19:29)
[2019-05-28] MEDS: OMEPRAZOLE 20 MG CAPSULE.DR GT SCH (05:13)
[2019-05-28] MEDS: METOCLOPRAMIDE HCL 10 MG/10 ML UDC GT SCH ×4 (05:13→23:06)
[2019-05-28] MEDS: LEVOTHYROXINE SODIUM 88 MCG TABLET GT SCH (05:14)
[2019-05-28 07:54] VITALS: BP 117/54
[2019-05-28] MEDS: ACIDOPHILUS/BULGARICUS 1 EACH TAB.CHEW GT SCH ×2 (08:38→16:37)
[2019-05-28] MEDS: ZINC SULFATE 220 MG CAPSULE GT SCH (08:38)
[2019-05-28] MEDS: PROSTAT (PYXIS) 30 ML UDC GT SCH ×3 (08:38→16:37)
[2019-05-28] MEDS: MULTIVIT W/MINERALS 1 TAB TABLET GT SCH (08:38)
[2019-05-28] MEDS: LEVETIRACETAM SOL (5 ML) 100 MG/ML UDC GT SCH ×2 (08:38→20:25)
[2019-05-28] MEDS: ACETAMINOPHEN 650 MG/20 ML UDC- SA PATIENTS-PAIN ONLY GT SCH ×2 (08:38→20:27)
[2019-05-28] MEDS: ASCORBIC ACID 500 MG TABLET GT SCH (08:38)
[2019-05-28] MEDS: CARBOXYMETHYLCELLULOSE SODIUM 0.4 ML DROPERETTE EACHEYE SCH (08:38)
[2019-05-28] MEDS: CHLORHEXIDINE GLUCONATE 15 ML UDC MM SCH ×2 (08:38→20:27)
[2019-05-28] MEDS: COD LIVER OIL/ZINC OXIDE 120 GM TUBE TP SCH ×2 (08:39→20:27)
[2019-05-28] MEDS: TRIAMCINOLONE ACETONIDE 0.1% CR 15 GM TUBE TP SCH ×2 (08:39→20:27)
[2019-05-28] MEDS: NYSTATIN CREAM 15 GM TUBE TP SCH ×2 (08:39→20:27)
[2019-05-28] MEDS: HYDROGEN PEROXIDE 480 ML BOTTLE TP SCH ×2 (09:00→21:00)
--- NOTE | 2019-05-28 11:05 | NUR ---
Hospice update: JOSSE contacted [facility] and spoke to Raji to have the facility correct that they are not providing hospice care to this patient as it is affecting his medication coverage. Per Raji this mistake occurred "because we have patient's with the same names and it was a mix up, noone verified the patient's birthdays". Per Raji, [facility] will notified Medicare today. Per Raji it may take about three weeks for the update to be in effect. JOSSE informed community arts centre manager.
--- NOTE | 2019-05-28 14:21 | NUR ---
RT NOTE: RECEIVED TRACH PT ON 28% COOL AEROSOL. NO RESPIRATORY DISTRESS NOTED. TRACH CHECKED SECURE AND PATENT. SXD AND LAVAGE Q ROUND AND NEEDED. TXS GIVEN ORDERED WITH NO ADVERSE REACTIONS NOTED. TRACH CARE DONE. SPARE TRACH AND AMBU BAG @ BEDSIDE.
[2019-05-28] MEDS: GLUCERNA 1.2 1,000 ML BOTTLE GT PRN (18:03)
[2019-05-28 20:30] VITALS: BP 120/61
[2019-05-29] MEDS: ALBUTEROL FS 2.5 MG/3 ML VIAL.NEB NEB SCH ×4 (01:45→19:48)
[2019-05-29] MEDS: IPRATROPIUM NEB FS 0.5 MG/2.5 ML AMPUL.NEB IH SCH ×4 (01:45→19:48)
[2019-05-29] MEDS: METOCLOPRAMIDE HCL 10 MG/10 ML UDC GT SCH ×3 (05:06→17:53)
[2019-05-29] MEDS: OMEPRAZOLE 20 MG CAPSULE.DR GT SCH (05:06)
[2019-05-29] MEDS: LEVOTHYROXINE SODIUM 88 MCG TABLET GT SCH (05:06)
[2019-05-29 07:44] VITALS: BP 107/55
[2019-05-29] MEDS: HYDROGEN PEROXIDE 480 ML BOTTLE TP SCH ×2 (08:01→19:48)
[2019-05-29] MEDS: CARBOXYMETHYLCELLULOSE SODIUM 0.4 ML DROPERETTE EACHEYE SCH (09:00)
[2019-05-29] MEDS: CHLORHEXIDINE GLUCONATE 15 ML UDC MM SCH ×2 (09:00→21:10)
[2019-05-29] MEDS: ACETAMINOPHEN 650 MG/20 ML UDC- SA PATIENTS-PAIN ONLY GT SCH ×2 (09:00→21:10)
[2019-05-29] MEDS: LEVETIRACETAM SOL (5 ML) 100 MG/ML UDC GT SCH ×2 (09:00→21:09)
[2019-05-29] MEDS: ACIDOPHILUS/BULGARICUS 1 EACH TAB.CHEW GT SCH ×2 (09:00→16:49)
[2019-05-29] MEDS: PROSTAT (PYXIS) 30 ML UDC GT SCH ×3 (09:00→16:49)
[2019-05-29] MEDS: NYSTATIN CREAM 15 GM TUBE TP SCH ×2 (09:00→21:10)
[2019-05-29] MEDS: ZINC SULFATE 220 MG CAPSULE GT SCH (09:00)
[2019-05-29] MEDS: COD LIVER OIL/ZINC OXIDE 120 GM TUBE TP SCH ×2 (09:00→21:10)
[2019-05-29] MEDS: MULTIVIT W/MINERALS 1 TAB TABLET GT SCH (09:00)
[2019-05-29] MEDS: ASCORBIC ACID 500 MG TABLET GT SCH (09:00)
[2019-05-29] MEDS: TRIAMCINOLONE ACETONIDE 0.1% CR 15 GM TUBE TP SCH ×2 (09:00→21:10)
[2019-05-29] MEDS: GLUCERNA 1.2 1,000 ML BOTTLE GT PRN (16:49)
[2019-05-29 20:03] VITALS: BP 119/62
[2019-05-30] VITALS: BP 132/78
[2019-05-30] MEDS: METOCLOPRAMIDE HCL 10 MG/10 ML UDC GT SCH ×5 (00:03→23:24)
[2019-05-30] MEDS: ALBUTEROL FS 2.5 MG/3 ML VIAL.NEB NEB SCH ×4 (01:15→19:59)
[2019-05-30] MEDS: IPRATROPIUM NEB FS 0.5 MG/2.5 ML AMPUL.NEB IH SCH ×4 (01:15→19:59)
[2019-05-30] MEDS: OMEPRAZOLE 20 MG CAPSULE.DR GT SCH (05:01)
[2019-05-30] MEDS: LEVOTHYROXINE SODIUM 88 MCG TABLET GT SCH (05:01)
[2019-05-30 07:41] VITALS: BP 126/69
[2019-05-30] MEDS: HYDROGEN PEROXIDE 480 ML BOTTLE TP SCH ×2 (08:06→20:18)
[2019-05-30] MEDS: CHLORHEXIDINE GLUCONATE 15 ML UDC MM SCH ×2 (08:41→20:15)
[2019-05-30] MEDS: ACETAMINOPHEN 650 MG/20 ML UDC- SA PATIENTS-PAIN ONLY GT SCH ×2 (08:41→20:17)
[2019-05-30] MEDS: LEVETIRACETAM SOL (5 ML) 100 MG/ML UDC GT SCH ×2 (08:41→20:15)
[2019-05-30] MEDS: MULTIVIT W/MINERALS 1 TAB TABLET GT SCH (08:41)
[2019-05-30] MEDS: CARBOXYMETHYLCELLULOSE SODIUM 0.4 ML DROPERETTE EACHEYE SCH (08:41)
[2019-05-30] MEDS: ASCORBIC ACID 500 MG TABLET GT SCH (08:41)
[2019-05-30] MEDS: ACIDOPHILUS/BULGARICUS 1 EACH TAB.CHEW GT SCH ×2 (08:41→17:00)
[2019-05-30] MEDS: ZINC SULFATE 220 MG CAPSULE GT SCH (08:41)
[2019-05-30] MEDS: PROSTAT (PYXIS) 30 ML UDC GT SCH ×3 (08:41→17:00)
[2019-05-30] MEDS: COD LIVER OIL/ZINC OXIDE 120 GM TUBE TP SCH ×2 (09:00→20:18)
[2019-05-30] MEDS: TRIAMCINOLONE ACETONIDE 0.1% CR 15 GM TUBE TP SCH ×2 (09:00→20:16)
[2019-05-30] MEDS: NYSTATIN CREAM 15 GM TUBE TP SCH ×2 (09:00→20:18)
--- NOTE | 2019-05-30 09:50 | NUR ---
Monhtly progress notes. Resident is passive not responding to verbal approach and tactile stimulation.TV is on for stimulation.Family is very supportiveand visits her almost every other day. She received daily visits for reality orientation hand massage TV music sensory stimulation, these activities will be provided daily as needed.
--- NOTE | 2019-05-30 17:00 | NUR ---
RT NOTE RECEIVED PATIENT WITH TRACH ON COOL AEROSOL. TRACH IS PATENT AND SECURED. SPARE TRACH AND BVM IS AT BEDSIDE. PATIENT HAS EQUAL CHEST RISE WITH COARSE AND DIMINISHED BILATERAL BREATH SOUNDS. SUCTION SMALL AMOUNT OF GREEN THIN SECRETIONS THROUGH OUT THE DAY. Q6 BREATHING TREATMENTS GIVEN WITH NO ADVERSE REACTIONS. Addendum: 05/30/19 at 1701 by WANDA NAM RT Amended: Links added.
[2019-05-30] MEDS: GLUCERNA 1.2 1,000 ML BOTTLE GT PRN (18:12)
[2019-05-30 20:00] VITALS: BP 132/60
[2019-05-30 20:16] VITALS: BP 132/60
[2019-05-31 01:06] VITALS: BP 132/60
[2019-05-31] MEDS: ALBUTEROL FS 2.5 MG/3 ML VIAL.NEB NEB SCH ×4 (01:37→19:27)
[2019-05-31] MEDS: IPRATROPIUM NEB FS 0.5 MG/2.5 ML AMPUL.NEB IH SCH ×4 (01:37→19:27)
[2019-05-31] MEDS: LEVOTHYROXINE SODIUM 88 MCG TABLET GT SCH (05:05)
[2019-05-31] MEDS: OMEPRAZOLE 20 MG CAPSULE.DR GT SCH (05:05)
[2019-05-31] MEDS: METOCLOPRAMIDE HCL 10 MG/10 ML UDC GT SCH ×3 (05:06→18:07)
[2019-05-31] MEDS: HYDROGEN PEROXIDE 480 ML BOTTLE TP SCH ×2 (07:21→20:31)
[2019-05-31 07:51] VITALS: BP 117/68
[2019-05-31] MEDS: MULTIVIT W/MINERALS 1 TAB TABLET GT SCH (08:57)
[2019-05-31] MEDS: CARBOXYMETHYLCELLULOSE SODIUM 0.4 ML DROPERETTE EACHEYE SCH (08:57)
[2019-05-31] MEDS: ACIDOPHILUS/BULGARICUS 1 EACH TAB.CHEW GT SCH ×2 (08:57→16:33)
[2019-05-31] MEDS: PROSTAT (PYXIS) 30 ML UDC GT SCH ×3 (08:57→16:33)
[2019-05-31] MEDS: LEVETIRACETAM SOL (5 ML) 100 MG/ML UDC GT SCH ×2 (08:57→20:00)
[2019-05-31] MEDS: ACETAMINOPHEN 650 MG/20 ML UDC- SA PATIENTS-PAIN ONLY GT SCH ×2 (08:58→20:01)
[2019-05-31] MEDS: ZINC SULFATE 220 MG CAPSULE GT SCH (08:58)
[2019-05-31] MEDS: CHLORHEXIDINE GLUCONATE 15 ML UDC MM SCH ×2 (08:58→20:01)
[2019-05-31] MEDS: ASCORBIC ACID 500 MG TABLET GT SCH (08:58)
[2019-05-31] MEDS: TRIAMCINOLONE ACETONIDE 0.1% CR 15 GM TUBE TP SCH ×2 (09:00→20:01)
[2019-05-31] MEDS: NYSTATIN CREAM 15 GM TUBE TP SCH ×2 (09:00→20:01)
[2019-05-31] MEDS: COD LIVER OIL/ZINC OXIDE 120 GM TUBE TP SCH ×2 (09:00→20:01)
[2019-05-31] MEDS: GLUCERNA 1.2 1,000 ML BOTTLE GT PRN (16:35)
[2019-05-31 18:08] VITALS: BP 117/68
[2019-05-31 22:15] VITALS: BP 122/72
[2019-06-01] MEDS: METOCLOPRAMIDE HCL 10 MG/10 ML UDC GT SCH ×5 (00:11→23:39)
[2019-06-01 01:03] VITALS: BP 125/76
[2019-06-01] MEDS: ALBUTEROL FS 2.5 MG/3 ML VIAL.NEB NEB SCH ×4 (02:09→19:40)
[2019-06-01] MEDS: IPRATROPIUM NEB FS 0.5 MG/2.5 ML AMPUL.NEB IH SCH ×4 (02:09→19:40)
[2019-06-01] MEDS: OMEPRAZOLE 20 MG CAPSULE.DR GT SCH (05:11)
[2019-06-01] MEDS: LEVOTHYROXINE SODIUM 88 MCG TABLET GT SCH (05:12)
[2019-06-01 07:24] VITALS: BP 105/54
[2019-06-01] MEDS: HYDROGEN PEROXIDE 480 ML BOTTLE TP SCH ×2 (09:13→20:58)
[2019-06-01] MEDS: CARBOXYMETHYLCELLULOSE SODIUM 0.4 ML DROPERETTE EACHEYE SCH (09:54)
[2019-06-01] MEDS: ACIDOPHILUS/BULGARICUS 1 EACH TAB.CHEW GT SCH ×2 (09:54→16:41)
[2019-06-01] MEDS: LEVETIRACETAM SOL (5 ML) 100 MG/ML UDC GT SCH ×2 (09:54→20:58)
[2019-06-01] MEDS: PROSTAT (PYXIS) 30 ML UDC GT SCH ×3 (09:55→16:41)
[2019-06-01] MEDS: ZINC SULFATE 220 MG CAPSULE GT SCH (09:55)
[2019-06-01] MEDS: MULTIVIT W/MINERALS 1 TAB TABLET GT SCH (09:55)
[2019-06-01] MEDS: ACETAMINOPHEN 650 MG/20 ML UDC- SA PATIENTS-PAIN ONLY GT SCH ×2 (09:55→20:58)
[2019-06-01] MEDS: ASCORBIC ACID 500 MG TABLET GT SCH (09:55)
[2019-06-01] MEDS: CHLORHEXIDINE GLUCONATE 15 ML UDC MM SCH ×2 (09:55→20:58)
[2019-06-01] MEDS: NYSTATIN CREAM 15 GM TUBE TP SCH ×2 (10:55→20:58)
[2019-06-01] MEDS: TRIAMCINOLONE ACETONIDE 0.1% CR 15 GM TUBE TP SCH ×2 (10:55→20:58)
[2019-06-01] MEDS: COD LIVER OIL/ZINC OXIDE 120 GM TUBE TP SCH ×2 (10:55→20:58)
[2019-06-01 12:00] VITALS: BP 122/60
[2019-06-01] MEDS: GLUCERNA 1.2 1,000 ML BOTTLE GT PRN (13:12)
[2019-06-01 19:46] VITALS: BP 118/60
[2019-06-01 22:00] VITALS: BP 120/61
[2019-06-02] MEDS: IPRATROPIUM NEB FS 0.5 MG/2.5 ML AMPUL.NEB IH SCH ×4 (01:32→19:47)
[2019-06-02] MEDS: ALBUTEROL FS 2.5 MG/3 ML VIAL.NEB NEB SCH ×4 (01:32→19:47)
[2019-06-02] MEDS: OMEPRAZOLE 20 MG CAPSULE.DR GT SCH (05:06)
[2019-06-02] MEDS: METOCLOPRAMIDE HCL 10 MG/10 ML UDC GT SCH ×3 (05:06→18:26)
[2019-06-02] MEDS: LEVOTHYROXINE SODIUM 88 MCG TABLET GT SCH (05:06)
[2019-06-02 07:31] VITALS: BP 138/61
[2019-06-02] MEDS: HYDROGEN PEROXIDE 480 ML BOTTLE TP SCH ×2 (07:41→21:15)
[2019-06-02] MEDS: ACETAMINOPHEN 650 MG/20 ML UDC- SA PATIENTS-PAIN ONLY GT SCH ×2 (08:42→20:07)
[2019-06-02] MEDS: CARBOXYMETHYLCELLULOSE SODIUM 0.4 ML DROPERETTE EACHEYE SCH (08:42)
[2019-06-02] MEDS: ASCORBIC ACID 500 MG TABLET GT SCH (08:42)
[2019-06-02] MEDS: PROSTAT (PYXIS) 30 ML UDC GT SCH ×3 (08:42→16:45)
[2019-06-02] MEDS: CHLORHEXIDINE GLUCONATE 15 ML UDC MM SCH ×2 (08:42→20:07)
[2019-06-02] MEDS: ZINC SULFATE 220 MG CAPSULE GT SCH (08:42)
[2019-06-02] MEDS: LEVETIRACETAM SOL (5 ML) 100 MG/ML UDC GT SCH ×2 (08:42→20:06)
[2019-06-02] MEDS: ACIDOPHILUS/BULGARICUS 1 EACH TAB.CHEW GT SCH ×2 (08:42→16:45)
[2019-06-02] MEDS: MULTIVIT W/MINERALS 1 TAB TABLET GT SCH (08:42)
[2019-06-02] MEDS: TRIAMCINOLONE ACETONIDE 0.1% CR 15 GM TUBE TP SCH ×2 (08:44→20:07)
[2019-06-02] MEDS: NYSTATIN CREAM 15 GM TUBE TP SCH ×2 (08:44→20:07)
[2019-06-02] MEDS: COD LIVER OIL/ZINC OXIDE 120 GM TUBE TP SCH ×2 (08:44→20:07)
[2019-06-02] MEDS: GLUCERNA 1.2 1,000 ML BOTTLE GT PRN (13:32)
[2019-06-02 13:49] VITALS: BP 120/68
--- NOTE | 2019-06-02 20:30 | NUR ---
RN NOTES Seen and examined by Becca Smith NP, with NNO.
[2019-06-02 20:47] VITALS: BP 132/60
[2019-06-02 22:13] VITALS: BP 132/60
[2019-06-03] MEDS: METOCLOPRAMIDE HCL 10 MG/10 ML UDC GT SCH ×4 (00:03→17:41)
[2019-06-03] MEDS: ALBUTEROL FS 2.5 MG/3 ML VIAL.NEB NEB SCH ×4 (01:42→19:19)
[2019-06-03] MEDS: IPRATROPIUM NEB FS 0.5 MG/2.5 ML AMPUL.NEB IH SCH ×4 (01:42→19:19)
[2019-06-03] MEDS: GLUCERNA 1.2 1,000 ML BOTTLE GT PRN (05:10)
[2019-06-03] MEDS: OMEPRAZOLE 20 MG CAPSULE.DR GT SCH (05:11)
[2019-06-03] MEDS: LEVOTHYROXINE SODIUM 88 MCG TABLET GT SCH (05:11)
--- NOTE | 2019-06-03 08:00 | NUR ---
Seen and examined by Dr. Andrews, no new order given.
[2019-06-03 08:02] VITALS: BP 139/65
[2019-06-03] MEDS: HYDROGEN PEROXIDE 480 ML BOTTLE TP SCH ×2 (08:07→21:00)
[2019-06-03] MEDS: MULTIVIT W/MINERALS 1 TAB TABLET GT SCH (08:36)
[2019-06-03] MEDS: LEVETIRACETAM SOL (5 ML) 100 MG/ML UDC GT SCH ×2 (08:36→20:00)
[2019-06-03] MEDS: ACIDOPHILUS/BULGARICUS 1 EACH TAB.CHEW GT SCH ×2 (08:36→16:41)
[2019-06-03] MEDS: CARBOXYMETHYLCELLULOSE SODIUM 0.4 ML DROPERETTE EACHEYE SCH (08:36)
[2019-06-03] MEDS: PROSTAT (PYXIS) 30 ML UDC GT SCH ×3 (08:36→16:41)
[2019-06-03] MEDS: ZINC SULFATE 220 MG CAPSULE GT SCH (08:38)
[2019-06-03] MEDS: ASCORBIC ACID 500 MG TABLET GT SCH (08:38)
[2019-06-03] MEDS: ACETAMINOPHEN 650 MG/20 ML UDC- SA PATIENTS-PAIN ONLY GT SCH ×2 (08:38→20:00)
[2019-06-03] MEDS: CHLORHEXIDINE GLUCONATE 15 ML UDC MM SCH ×2 (08:38→20:01)
[2019-06-03] MEDS: TRIAMCINOLONE ACETONIDE 0.1% CR 15 GM TUBE TP SCH ×2 (08:48→20:01)
[2019-06-03] MEDS: NYSTATIN CREAM 15 GM TUBE TP SCH ×2 (08:49→20:01)
[2019-06-03] MEDS: COD LIVER OIL/ZINC OXIDE 120 GM TUBE TP SCH ×2 (08:49→20:01)
[2019-06-03 13:19] VITALS: BP 130/67
--- NOTE | 2019-06-03 17:00 | NUR ---
Seen and examined by Dr. Monet, no new order given.
[2019-06-03 20:22] VITALS: BP 133/93
[2019-06-03 22:10] VITALS: BP 133/93
[2019-06-04] MEDS: METOCLOPRAMIDE HCL 10 MG/10 ML UDC GT SCH ×4 (00:20→17:08)
[2019-06-04] MEDS: ALBUTEROL FS 2.5 MG/3 ML VIAL.NEB NEB SCH ×4 (01:52→19:22)
[2019-06-04] MEDS: IPRATROPIUM NEB FS 0.5 MG/2.5 ML AMPUL.NEB IH SCH ×4 (01:52→19:22)
[2019-06-04] MEDS: LEVOTHYROXINE SODIUM 88 MCG TABLET GT SCH (05:02)
[2019-06-04] MEDS: OMEPRAZOLE 20 MG CAPSULE.DR GT SCH (05:02)
[2019-06-04 07:57] VITALS: BP 127/63
[2019-06-04] MEDS: HYDROGEN PEROXIDE 480 ML BOTTLE TP SCH ×2 (08:03→21:00)
[2019-06-04] MEDS: ZINC SULFATE 220 MG CAPSULE GT SCH (09:36)
[2019-06-04] MEDS: TRIAMCINOLONE ACETONIDE 0.1% CR 15 GM TUBE TP SCH ×2 (09:36→20:08)
[2019-06-04] MEDS: LEVETIRACETAM SOL (5 ML) 100 MG/ML UDC GT SCH ×2 (09:36→20:00)
[2019-06-04] MEDS: ASCORBIC ACID 500 MG TABLET GT SCH (09:36)
[2019-06-04] MEDS: CHLORHEXIDINE GLUCONATE 15 ML UDC MM SCH ×2 (09:36→20:08)
[2019-06-04] MEDS: ACETAMINOPHEN 650 MG/20 ML UDC- SA PATIENTS-PAIN ONLY GT SCH ×2 (09:36→20:08)
[2019-06-04] MEDS: PROSTAT (PYXIS) 30 ML UDC GT SCH ×3 (09:36→17:08)
[2019-06-04] MEDS: CARBOXYMETHYLCELLULOSE SODIUM 0.4 ML DROPERETTE EACHEYE SCH (09:36)
[2019-06-04] MEDS: ACIDOPHILUS/BULGARICUS 1 EACH TAB.CHEW GT SCH ×2 (09:36→17:08)
[2019-06-04] MEDS: MULTIVIT W/MINERALS 1 TAB TABLET GT SCH (09:36)
[2019-06-04] MEDS: NYSTATIN CREAM 15 GM TUBE TP SCH ×2 (09:37→20:08)
[2019-06-04] MEDS: COD LIVER OIL/ZINC OXIDE 120 GM TUBE TP SCH ×2 (09:37→20:08)
[2019-06-04 15:07] VITALS: BP 127/63
--- NOTE | 2019-06-04 17:26 | NUR ---
RT NOTE RECEIVED PATIENT WITH TRACH ON COOL AEROSOL. TRACH IS PATENT AND SECURED. SPARE TRACH AND BVM IS AT BEDSIDE. PATIENT HAS EQUAL CHEST RISE WITH COARSE AND DIMINISHED BILATERAL BREATH SOUNDS. SUCTION SMALL TO MODERATE AMOUNT OF GREEN THIN SECRETIONS THROUGH OUT THE DAY. PATIENT TOLERATED Q6 BREATHING TREATMENTS WELL. Addendum: 06/04/19 at 1728 by WANDA NAM RT Amended: Links added.
[2019-06-04 20:02] VITALS: BP 126/67
[2019-06-04 22:10] VITALS: BP 126/67
[2019-06-05] MEDS: METOCLOPRAMIDE HCL 10 MG/10 ML UDC GT SCH ×4 (00:11→17:11)
[2019-06-05] MEDS: ALBUTEROL FS 2.5 MG/3 ML VIAL.NEB NEB SCH ×4 (02:03→19:27)
[2019-06-05] MEDS: IPRATROPIUM NEB FS 0.5 MG/2.5 ML AMPUL.NEB IH SCH ×4 (02:03→19:27)
[2019-06-05] MEDS: GLUCERNA 1.2 1,000 ML BOTTLE GT PRN (04:58)
[2019-06-05] MEDS: LEVOTHYROXINE SODIUM 88 MCG TABLET GT SCH (05:06)
[2019-06-05] MEDS: OMEPRAZOLE 20 MG CAPSULE.DR GT SCH (05:06)
[2019-06-05 07:43] VITALS: BP 119/57
[2019-06-05] MEDS: COD LIVER OIL/ZINC OXIDE 120 GM TUBE TP SCH ×2 (09:00→20:47)
[2019-06-05] MEDS: CHLORHEXIDINE GLUCONATE 15 ML UDC MM SCH ×2 (09:00→20:46)
[2019-06-05] MEDS: HYDROGEN PEROXIDE 480 ML BOTTLE TP SCH ×2 (09:19→20:30)
[2019-06-05] MEDS: ACIDOPHILUS/BULGARICUS 1 EACH TAB.CHEW GT SCH ×2 (09:49→17:11)
[2019-06-05] MEDS: CARBOXYMETHYLCELLULOSE SODIUM 0.4 ML DROPERETTE EACHEYE SCH (09:49)
[2019-06-05] MEDS: LEVETIRACETAM SOL (5 ML) 100 MG/ML UDC GT SCH ×2 (09:49→20:46)
[2019-06-05] MEDS: PROSTAT (PYXIS) 30 ML UDC GT SCH ×3 (09:50→17:11)
[2019-06-05] MEDS: ZINC SULFATE 220 MG CAPSULE GT SCH (09:50)
[2019-06-05] MEDS: MULTIVIT W/MINERALS 1 TAB TABLET GT SCH (09:50)
[2019-06-05] MEDS: ASCORBIC ACID 500 MG TABLET GT SCH (09:50)
[2019-06-05] MEDS: ACETAMINOPHEN 650 MG/20 ML UDC- SA PATIENTS-PAIN ONLY GT SCH ×2 (09:50→20:46)
[2019-06-05] MEDS: NYSTATIN CREAM 15 GM TUBE TP SCH ×2 (10:30→20:47)
[2019-06-05] MEDS: TRIAMCINOLONE ACETONIDE 0.1% CR 15 GM TUBE TP SCH ×2 (10:30→20:47)
[2019-06-05 12:30] VITALS: BP 112/58
[2019-06-05 18:54] VITALS: BP 123/73
[2019-06-05 21:14] VITALS: BP 105/57
[2019-06-05 22:28] VITALS: BP 105/57
[2019-06-06] MEDS: METOCLOPRAMIDE HCL 10 MG/10 ML UDC GT SCH ×5 (00:11→23:50)
[2019-06-06] MEDS: IPRATROPIUM NEB FS 0.5 MG/2.5 ML AMPUL.NEB IH SCH ×4 (01:42→19:24)
[2019-06-06] MEDS: ALBUTEROL FS 2.5 MG/3 ML VIAL.NEB NEB SCH ×4 (01:42→19:24)
[2019-06-06] MEDS: OMEPRAZOLE 20 MG CAPSULE.DR GT SCH (05:19)
[2019-06-06] MEDS: LEVOTHYROXINE SODIUM 88 MCG TABLET GT SCH (05:19)
[2019-06-06] MEDS: GLUCERNA 1.2 1,000 ML BOTTLE GT PRN (05:52)
[2019-06-06 08:00] VITALS: BP 118/64
[2019-06-06] MEDS: ACIDOPHILUS/BULGARICUS 1 EACH TAB.CHEW GT SCH ×2 (08:14→17:26)
[2019-06-06] MEDS: MULTIVIT W/MINERALS 1 TAB TABLET GT SCH (08:14)
[2019-06-06] MEDS: CARBOXYMETHYLCELLULOSE SODIUM 0.4 ML DROPERETTE EACHEYE SCH (08:14)
[2019-06-06] MEDS: PROSTAT (PYXIS) 30 ML UDC GT SCH ×3 (08:14→17:26)
[2019-06-06] MEDS: LEVETIRACETAM SOL (5 ML) 100 MG/ML UDC GT SCH ×2 (08:14→20:02)
[2019-06-06] MEDS: ACETAMINOPHEN 650 MG/20 ML UDC- SA PATIENTS-PAIN ONLY GT SCH ×2 (08:15→20:03)
[2019-06-06] MEDS: CHLORHEXIDINE GLUCONATE 15 ML UDC MM SCH ×2 (08:15→20:03)
[2019-06-06] MEDS: ASCORBIC ACID 500 MG TABLET GT SCH (08:15)
[2019-06-06] MEDS: ZINC SULFATE 220 MG CAPSULE GT SCH (08:15)
[2019-06-06] MEDS: HYDROGEN PEROXIDE 480 ML BOTTLE TP SCH ×2 (08:40→19:24)
[2019-06-06] MEDS: TRIAMCINOLONE ACETONIDE 0.1% CR 15 GM TUBE TP SCH ×2 (09:00→20:03)
[2019-06-06] MEDS: NYSTATIN CREAM 15 GM TUBE TP SCH ×2 (09:00→20:03)
[2019-06-06] MEDS: COD LIVER OIL/ZINC OXIDE 120 GM TUBE TP SCH ×2 (09:00→20:03)
[2019-06-06 12:08] VITALS: BP 124/62
[2019-06-06 18:07] VITALS: BP 118/54
[2019-06-06 20:37] VITALS: BP 129/83
[2019-06-06 22:15] VITALS: BP 129/83
[2019-06-07] MEDS: IPRATROPIUM NEB FS 0.5 MG/2.5 ML AMPUL.NEB IH SCH ×4 (00:56→19:24)
[2019-06-07] MEDS: ALBUTEROL FS 2.5 MG/3 ML VIAL.NEB NEB SCH ×4 (00:56→19:24)
[2019-06-07] MEDS: METOCLOPRAMIDE HCL 10 MG/10 ML UDC GT SCH ×3 (05:04→17:14)
[2019-06-07] MEDS: OMEPRAZOLE 20 MG CAPSULE.DR GT SCH (05:04)
[2019-06-07] MEDS: LEVOTHYROXINE SODIUM 88 MCG TABLET GT SCH (05:05)
--- NOTE | 2019-06-07 05:24 | NUR ---
PATIENT RECEIVED ON 28% AEROSOL T-TUBE, TOLERATING WITH NO DISTRESS/SOB NOTED. SUCTIONED WITH LAVAGE FOR MINIMAL, THIN, YELLOW SECRETIONS. GIVEN IN-LINE TREATMENTS WITH NO ADVERSE REACTIONS. AMBU BAG AT BEDSIDE. TRACH CARE DONE. Addendum: 06/07/19 at 0525 by IVAN TOLBRET RT Amended: Links added.
[2019-06-07] MEDS: GLUCERNA 1.2 1,000 ML BOTTLE GT PRN (06:20)
[2019-06-07 07:22] VITALS: BP 119/55
[2019-06-07] MEDS: ACIDOPHILUS/BULGARICUS 1 EACH TAB.CHEW GT SCH ×2 (09:20→17:14)
[2019-06-07] MEDS: LEVETIRACETAM SOL (5 ML) 100 MG/ML UDC GT SCH ×2 (09:20→21:08)
[2019-06-07] MEDS: CARBOXYMETHYLCELLULOSE SODIUM 0.4 ML DROPERETTE EACHEYE SCH (09:20)
[2019-06-07] MEDS: MULTIVIT W/MINERALS 1 TAB TABLET GT SCH (09:20)
[2019-06-07] MEDS: PROSTAT (PYXIS) 30 ML UDC GT SCH ×3 (09:20→17:14)
[2019-06-07] MEDS: ZINC SULFATE 220 MG CAPSULE GT SCH (09:21)
[2019-06-07] MEDS: NYSTATIN CREAM 15 GM TUBE TP SCH ×2 (09:21→21:00)
[2019-06-07] MEDS: ACETAMINOPHEN 650 MG/20 ML UDC- SA PATIENTS-PAIN ONLY GT SCH ×2 (09:21→21:09)
[2019-06-07] MEDS: COD LIVER OIL/ZINC OXIDE 120 GM TUBE TP SCH ×2 (09:21→21:00)
[2019-06-07] MEDS: TRIAMCINOLONE ACETONIDE 0.1% CR 15 GM TUBE TP SCH ×2 (09:21→21:00)
[2019-06-07] MEDS: ASCORBIC ACID 500 MG TABLET GT SCH (09:21)
[2019-06-07] MEDS: CHLORHEXIDINE GLUCONATE 15 ML UDC MM SCH ×2 (09:21→21:00)
[2019-06-07] MEDS: HYDROGEN PEROXIDE 480 ML BOTTLE TP SCH ×2 (09:37→20:38)
[2019-06-07 14:05] VITALS: BP 120/61
[2019-06-07 20:00] VITALS: BP 127/73
[2019-06-07 22:00] VITALS: BP 127/73
[2019-06-08] MEDS: IPRATROPIUM NEB FS 0.5 MG/2.5 ML AMPUL.NEB IH SCH ×4 (00:42→19:31)
[2019-06-08] MEDS: ALBUTEROL FS 2.5 MG/3 ML VIAL.NEB NEB SCH ×4 (00:42→19:31)
[2019-06-08] MEDS: METOCLOPRAMIDE HCL 10 MG/10 ML UDC GT SCH ×4 (00:55→17:53)
[2019-06-08] MEDS: LEVOTHYROXINE SODIUM 88 MCG TABLET GT SCH (06:51)
[2019-06-08] MEDS: OMEPRAZOLE 20 MG CAPSULE.DR GT SCH (06:51)
[2019-06-08 07:39] VITALS: BP 131/69
[2019-06-08] MEDS: ACIDOPHILUS/BULGARICUS 1 EACH TAB.CHEW GT SCH ×2 (08:36→17:53)
[2019-06-08] MEDS: MULTIVIT W/MINERALS 1 TAB TABLET GT SCH (08:36)
[2019-06-08] MEDS: PROSTAT (PYXIS) 30 ML UDC GT SCH ×3 (08:36→17:53)
[2019-06-08] MEDS: LEVETIRACETAM SOL (5 ML) 100 MG/ML UDC GT SCH ×2 (08:36→20:48)
[2019-06-08] MEDS: CARBOXYMETHYLCELLULOSE SODIUM 0.4 ML DROPERETTE EACHEYE SCH (08:36)
[2019-06-08] MEDS: ASCORBIC ACID 500 MG TABLET GT SCH (08:37)
[2019-06-08] MEDS: ACETAMINOPHEN 650 MG/20 ML UDC- SA PATIENTS-PAIN ONLY GT SCH ×2 (08:37→20:50)
[2019-06-08] MEDS: ZINC SULFATE 220 MG CAPSULE GT SCH (08:37)
[2019-06-08] MEDS: CHLORHEXIDINE GLUCONATE 15 ML UDC MM SCH ×3 (08:37→20:51)
[2019-06-08] MEDS: COD LIVER OIL/ZINC OXIDE 120 GM TUBE TP SCH ×2 (09:00→21:21)
[2019-06-08] MEDS: HYDROGEN PEROXIDE 480 ML BOTTLE TP SCH ×2 (09:00→21:00)
[2019-06-08 11:31] VITALS: BP 130/68
[2019-06-08 20:12] VITALS: BP 138/70
[2019-06-08 22:53] VITALS: BP 132/72
[2019-06-09] MEDS: METOCLOPRAMIDE HCL 10 MG/10 ML UDC GT SCH ×5 (00:01→23:53)
[2019-06-09] MEDS: ALBUTEROL FS 2.5 MG/3 ML VIAL.NEB NEB SCH ×4 (01:30→19:57)
[2019-06-09] MEDS: IPRATROPIUM NEB FS 0.5 MG/2.5 ML AMPUL.NEB IH SCH ×4 (01:30→19:57)
[2019-06-09] MEDS: GLUCERNA 1.2 1,000 ML BOTTLE GT PRN (03:38)
[2019-06-09] MEDS: LEVOTHYROXINE SODIUM 88 MCG TABLET GT SCH (05:20)
[2019-06-09] MEDS: OMEPRAZOLE 20 MG CAPSULE.DR GT SCH (05:20)
[2019-06-09 07:28] VITALS: BP 120/77
[2019-06-09] MEDS: HYDROGEN PEROXIDE 480 ML BOTTLE TP SCH ×2 (08:09→19:58)
[2019-06-09] MEDS: CARBOXYMETHYLCELLULOSE SODIUM 0.4 ML DROPERETTE EACHEYE SCH (08:29)
[2019-06-09] MEDS: LEVETIRACETAM SOL (5 ML) 100 MG/ML UDC GT SCH ×2 (08:29→20:10)
[2019-06-09] MEDS: ACIDOPHILUS/BULGARICUS 1 EACH TAB.CHEW GT SCH ×2 (08:29→17:18)
[2019-06-09] MEDS: PROSTAT (PYXIS) 30 ML UDC GT SCH ×3 (08:29→17:18)
[2019-06-09] MEDS: MULTIVIT W/MINERALS 1 TAB TABLET GT SCH (08:29)
[2019-06-09] MEDS: ACETAMINOPHEN 650 MG/20 ML UDC- SA PATIENTS-PAIN ONLY GT SCH ×2 (08:34→20:10)
[2019-06-09] MEDS: ASCORBIC ACID 500 MG TABLET GT SCH (08:34)
[2019-06-09] MEDS: ZINC SULFATE 220 MG CAPSULE GT SCH (08:34)
[2019-06-09] MEDS: CHLORHEXIDINE GLUCONATE 15 ML UDC MM SCH ×2 (08:34→20:10)
[2019-06-09] MEDS: COD LIVER OIL/ZINC OXIDE 120 GM TUBE TP SCH ×2 (09:00→20:10)
[2019-06-09 15:04] VITALS: BP 122/70
--- NOTE | 2019-06-09 16:55 | NUR ---
RT NOTE RECEIVED PATIENT WITH TRACH ON COOL AEROSOL. TRACH IS PATENT AND SECURED. SPARE TRACH AND BVM IS AT BEDSIDE. PATIENT HAS EQUAL CHEST RISE WITH COARSE AND DIMINISHED BILATERAL BREATH SOUNDS. SUCTION SMALL AMOUNT OF GREEN THIN SECRETIONS THROUGH OUT THE DAY. Q6 BREATHING TREATMENTS GIVEN NO ADVERSE REACTIONS. Addendum: 06/09/19 at 1656 by WANDA NAM RT Amended: Links added.
[2019-06-09 20:01] VITALS: BP 107/67
--- NOTE | 2019-06-09 20:55 | NUR ---
RT NOTE PT RECEIVED TRACHED ON COOL AEROSOL @ 28%. AMBU BAG/BACK UP TRACH @ BEDSIDE. TX GIVEN, NO ADVERSE REACTIONS NOTED. SX DONE, TRACH SECURED AND PATENT. WATER LEVEL GOOD. NO DISTRESS NOTED AT THIS TIME. WILL CONTINUE TO MONITOR. Addendum: 06/09/19 at 2054 by LETITIA BENITES RT Amended: Links added.
[2019-06-09 22:36] VITALS: BP 107/67
[2019-06-10] MEDS: ALBUTEROL FS 2.5 MG/3 ML VIAL.NEB NEB SCH ×4 (02:31→20:50)
[2019-06-10] MEDS: IPRATROPIUM NEB FS 0.5 MG/2.5 ML AMPUL.NEB IH SCH ×4 (02:31→20:50)
[2019-06-10] MEDS: LEVOTHYROXINE SODIUM 88 MCG TABLET GT SCH (05:51)
[2019-06-10] MEDS: GLUCERNA 1.2 1,000 ML BOTTLE GT PRN (05:51)
[2019-06-10] MEDS: OMEPRAZOLE 20 MG CAPSULE.DR GT SCH (05:51)
[2019-06-10] MEDS: METOCLOPRAMIDE HCL 10 MG/10 ML UDC GT SCH ×4 (05:51→23:42)
[2019-06-10] MEDS: HYDROGEN PEROXIDE 480 ML BOTTLE TP SCH ×2 (08:05→21:07)
[2019-06-10] MEDS: ASCORBIC ACID 500 MG TABLET GT SCH (08:13)
[2019-06-10] MEDS: ZINC SULFATE 220 MG CAPSULE GT SCH (08:13)
[2019-06-10] MEDS: ACIDOPHILUS/BULGARICUS 1 EACH TAB.CHEW GT SCH ×2 (08:13→16:24)
[2019-06-10] MEDS: ACETAMINOPHEN 650 MG/20 ML UDC- SA PATIENTS-PAIN ONLY GT SCH ×2 (08:13→21:07)
[2019-06-10] MEDS: MULTIVIT W/MINERALS 1 TAB TABLET GT SCH (08:13)
[2019-06-10] MEDS: LEVETIRACETAM SOL (5 ML) 100 MG/ML UDC GT SCH ×2 (08:13→21:06)
[2019-06-10] MEDS: CARBOXYMETHYLCELLULOSE SODIUM 0.4 ML DROPERETTE EACHEYE SCH (08:13)
[2019-06-10] MEDS: CHLORHEXIDINE GLUCONATE 15 ML UDC MM SCH ×2 (08:13→21:07)
[2019-06-10] MEDS: PROSTAT (PYXIS) 30 ML UDC GT SCH ×3 (08:13→16:24)
[2019-06-10] MEDS: COD LIVER OIL/ZINC OXIDE 120 GM TUBE TP SCH ×2 (09:00→21:07)
[2019-06-10 10:14] VITALS: BP 130/64
[2019-06-10 12:08] VITALS: BP 117/60
[2019-06-10 18:49] VITALS: BP 110/56
[2019-06-10 19:49] VITALS: BP 131/67
[2019-06-10 22:15] VITALS: BP 131/67
[2019-06-11] MEDS: IPRATROPIUM NEB FS 0.5 MG/2.5 ML AMPUL.NEB IH SCH ×4 (02:21→19:52)
[2019-06-11] MEDS: ALBUTEROL FS 2.5 MG/3 ML VIAL.NEB NEB SCH ×4 (02:21→19:52)
[2019-06-11] MEDS: METOCLOPRAMIDE HCL 10 MG/10 ML UDC GT SCH ×3 (05:10→17:20)
[2019-06-11] MEDS: LEVOTHYROXINE SODIUM 88 MCG TABLET GT SCH (05:10)
[2019-06-11] MEDS: OMEPRAZOLE 20 MG CAPSULE.DR GT SCH (05:10)
[2019-06-11] MEDS: GLUCERNA 1.2 1,000 ML BOTTLE GT PRN (05:13)
[2019-06-11] MEDS: HYDROGEN PEROXIDE 480 ML BOTTLE TP SCH ×2 (09:00→19:54)
[2019-06-11] MEDS: COD LIVER OIL/ZINC OXIDE 120 GM TUBE TP SCH ×2 (09:00→20:08)
[2019-06-11] MEDS: CARBOXYMETHYLCELLULOSE SODIUM 0.4 ML DROPERETTE EACHEYE SCH (09:05)
[2019-06-11] MEDS: MULTIVIT W/MINERALS 1 TAB TABLET GT SCH (09:06)
[2019-06-11] MEDS: CHLORHEXIDINE GLUCONATE 15 ML UDC MM SCH ×2 (09:06→20:08)
[2019-06-11] MEDS: PROSTAT (PYXIS) 30 ML UDC GT SCH ×3 (09:06→16:16)
[2019-06-11] MEDS: ACIDOPHILUS/BULGARICUS 1 EACH TAB.CHEW GT SCH ×2 (09:06→16:16)
[2019-06-11] MEDS: ZINC SULFATE 220 MG CAPSULE GT SCH (09:06)
[2019-06-11] MEDS: ACETAMINOPHEN 650 MG/20 ML UDC- SA PATIENTS-PAIN ONLY GT SCH ×2 (09:06→20:07)
[2019-06-11] MEDS: LEVETIRACETAM SOL (5 ML) 100 MG/ML UDC GT SCH ×2 (09:06→20:07)
[2019-06-11] MEDS: ASCORBIC ACID 500 MG TABLET GT SCH (09:06)
--- NOTE | 2019-06-11 09:21 | NUR ---
Hospice update: JOSSE contacted [facility] and spoke to Raji to have the facility correct that they are not providing hospice care to this patient. Per Raji, they have not been able to notify Medicare because Medicare is stating they have the incorrect medicare number. However, Raji read the number to JOSSE and it was correct. Per Raji, the hospice will attempt to notify Medicare again. JOSSE notified deputy united states marshal.
[2019-06-11 10:00] VITALS: BP 121/65
--- NOTE | 2019-06-11 10:42 | NUR ---
Family invitation to [facility] Support [facility] and IDT: SW called and spoke to the pt.s daughter/DPOA, Reyna Teresa [phone] invite her to the [facility] on 06/19/2019 11 am and the next IDT meeting on 06/21/2019 12:30 pm. Per Reyna, she will not be able to attend support group but would like to participate in IDT via phone conference. Noted.
[2019-06-11 10:57] VITALS: BP 121/65
[2019-06-11 20:20] VITALS: BP 130/61
--- NOTE | 2019-06-11 21:10 | NUR ---
RT NOTE PT RECEIVED TRACHED ON COOL AEROSOL @ 28%. AMBU BAG/BACK UP TRACH @ BEDSIDE. TX GIVEN, NO ADVERSE REACTIONS NOTED. SX DONE, TRACH SECURED AND PATENT. NO DISTRESS NOTED AT THIS TIME. WATER LEVEL GOOD. WILL MONITOR. Addendum: 06/11/19 at 2110 by LETITIA BENITES RT Amended: Links added.
[2019-06-11 22:31] VITALS: BP 130/61
[2019-06-12] MEDS: METOCLOPRAMIDE HCL 10 MG/10 ML UDC GT SCH ×4 (00:09→18:42)
[2019-06-12] MEDS: IPRATROPIUM NEB FS 0.5 MG/2.5 ML AMPUL.NEB IH SCH ×4 (01:50→19:48)
[2019-06-12] MEDS: ALBUTEROL FS 2.5 MG/3 ML VIAL.NEB NEB SCH ×4 (01:50→19:48)
[2019-06-12] MEDS: OMEPRAZOLE 20 MG CAPSULE.DR GT SCH (05:09)
[2019-06-12] MEDS: GLUCERNA 1.2 1,000 ML BOTTLE GT PRN (05:09)
[2019-06-12] MEDS: LEVOTHYROXINE SODIUM 88 MCG TABLET GT SCH (05:09)
[2019-06-12 07:21] VITALS: BP 111/67
[2019-06-12] MEDS: PROSTAT (PYXIS) 30 ML UDC GT SCH ×3 (09:37→17:00)
[2019-06-12] MEDS: MULTIVIT W/MINERALS 1 TAB TABLET GT SCH (09:37)
[2019-06-12] MEDS: CARBOXYMETHYLCELLULOSE SODIUM 0.4 ML DROPERETTE EACHEYE SCH (09:37)
[2019-06-12] MEDS: LEVETIRACETAM SOL (5 ML) 100 MG/ML UDC GT SCH ×2 (09:37→21:39)
[2019-06-12] MEDS: ACIDOPHILUS/BULGARICUS 1 EACH TAB.CHEW GT SCH ×2 (09:37→17:00)
[2019-06-12] MEDS: ACETAMINOPHEN 650 MG/20 ML UDC- SA PATIENTS-PAIN ONLY GT SCH ×2 (09:38→20:41)
[2019-06-12] MEDS: CHLORHEXIDINE GLUCONATE 15 ML UDC MM SCH ×2 (09:38→20:42)
[2019-06-12] MEDS: COD LIVER OIL/ZINC OXIDE 120 GM TUBE TP SCH ×2 (09:38→20:42)
[2019-06-12] MEDS: ASCORBIC ACID 500 MG TABLET GT SCH (09:38)
[2019-06-12] MEDS: ZINC SULFATE 220 MG CAPSULE GT SCH (09:38)
[2019-06-12 10:00] VITALS: BP 111/67
[2019-06-12] MEDS: HYDROGEN PEROXIDE 480 ML BOTTLE TP SCH ×2 (10:18→19:48)
[2019-06-12 20:21] VITALS: BP 135/65
[2019-06-12 22:06] VITALS: BP 127/68
[2019-06-13] MEDS: METOCLOPRAMIDE HCL 10 MG/10 ML UDC GT SCH ×4 (00:25→17:11)
[2019-06-13] MEDS: GLUCERNA 1.2 1,000 ML BOTTLE GT PRN (01:33)
[2019-06-13] MEDS: ALBUTEROL FS 2.5 MG/3 ML VIAL.NEB NEB SCH ×4 (01:50→19:51)
[2019-06-13] MEDS: IPRATROPIUM NEB FS 0.5 MG/2.5 ML AMPUL.NEB IH SCH ×4 (01:50→19:51)
[2019-06-13] MEDS: OMEPRAZOLE 20 MG CAPSULE.DR GT SCH (05:36)
[2019-06-13] MEDS: LEVOTHYROXINE SODIUM 88 MCG TABLET GT SCH (05:36)
[2019-06-13 07:44] VITALS: BP 119/69
[2019-06-13] MEDS: HYDROGEN PEROXIDE 480 ML BOTTLE TP SCH ×2 (08:13→21:20)
[2019-06-13] MEDS: MULTIVIT W/MINERALS 1 TAB TABLET GT SCH (08:36)
[2019-06-13] MEDS: ASCORBIC ACID 500 MG TABLET GT SCH (08:36)
[2019-06-13] MEDS: ACIDOPHILUS/BULGARICUS 1 EACH TAB.CHEW GT SCH ×2 (08:36→16:19)
[2019-06-13] MEDS: COD LIVER OIL/ZINC OXIDE 120 GM TUBE TP SCH ×2 (08:36→21:33)
[2019-06-13] MEDS: ZINC SULFATE 220 MG CAPSULE GT SCH (08:36)
[2019-06-13] MEDS: CHLORHEXIDINE GLUCONATE 15 ML UDC MM SCH ×2 (08:36→21:03)
[2019-06-13] MEDS: PROSTAT (PYXIS) 30 ML UDC GT SCH ×3 (08:36→16:20)
[2019-06-13] MEDS: LEVETIRACETAM SOL (5 ML) 100 MG/ML UDC GT SCH ×2 (08:36→21:02)
[2019-06-13] MEDS: CARBOXYMETHYLCELLULOSE SODIUM 0.4 ML DROPERETTE EACHEYE SCH (09:00)
[2019-06-13] MEDS: ACETAMINOPHEN 650 MG/20 ML UDC- SA PATIENTS-PAIN ONLY GT SCH ×2 (09:41→21:03)
[2019-06-13 11:20] VITALS: BP 119/69
[2019-06-13 19:40] VITALS: BP 130/79
--- NOTE | 2019-06-13 20:08 | NUR ---
RT NOTES PT RECEIVED TRACHED ON COOL AEROSOL. NO SIGNS OF RESP DISTRESS/SOB NOTED. AIRWAY PATENT AND SECURED. PT SUCTIONED. HHN TX GIVEN. NO ADVERSE REACTIONS NOTED. AMBUBAG AND SPARE TRACH AT BEDSIDE. WILL CONT TO MONITOR. Addendum: 06/13/19 at 2251 by GAVIN MARTINEZ RT Amended: Links added.
[2019-06-13 23:12] VITALS: BP 128/70
[2019-06-14] MEDS: METOCLOPRAMIDE HCL 10 MG/10 ML UDC GT SCH ×5 (00:37→23:01)
[2019-06-14] MEDS: GLUCERNA 1.2 1,000 ML BOTTLE GT PRN (01:38)
[2019-06-14] MEDS: IPRATROPIUM NEB FS 0.5 MG/2.5 ML AMPUL.NEB IH SCH ×4 (01:42→19:12)
[2019-06-14] MEDS: ALBUTEROL FS 2.5 MG/3 ML VIAL.NEB NEB SCH ×4 (01:42→19:12)
[2019-06-14] MEDS: LEVOTHYROXINE SODIUM 88 MCG TABLET GT SCH (05:49)
[2019-06-14] MEDS: OMEPRAZOLE 20 MG CAPSULE.DR GT SCH (05:49)
[2019-06-14 07:50] VITALS: BP 104/63
[2019-06-14] MEDS: HYDROGEN PEROXIDE 480 ML BOTTLE TP SCH ×2 (07:55→20:31)
[2019-06-14] MEDS: CARBOXYMETHYLCELLULOSE SODIUM 0.4 ML DROPERETTE EACHEYE SCH (08:00)
[2019-06-14] MEDS: LEVETIRACETAM SOL (5 ML) 100 MG/ML UDC GT SCH ×2 (08:01→20:29)
[2019-06-14] MEDS: PROSTAT (PYXIS) 30 ML UDC GT SCH ×3 (08:02→16:37)
[2019-06-14] MEDS: ASCORBIC ACID 500 MG TABLET GT SCH (08:03)
[2019-06-14] MEDS: ZINC SULFATE 220 MG CAPSULE GT SCH (08:04)
[2019-06-14] MEDS: COD LIVER OIL/ZINC OXIDE 120 GM TUBE TP SCH ×2 (08:04→20:30)
[2019-06-14] MEDS: ACIDOPHILUS/BULGARICUS 1 EACH TAB.CHEW GT SCH ×2 (08:07→16:37)
[2019-06-14] MEDS: MULTIVIT W/MINERALS 1 TAB TABLET GT SCH (08:07)
[2019-06-14] MEDS: ACETAMINOPHEN 650 MG/20 ML UDC- SA PATIENTS-PAIN ONLY GT SCH ×2 (08:12→20:30)
[2019-06-14] MEDS: CHLORHEXIDINE GLUCONATE 15 ML UDC MM SCH ×2 (08:13→20:30)
[2019-06-14 10:00] VITALS: BP 104/63
--- NOTE | 2019-06-14 18:02 | NUR ---
RT NOTE RECEIVED PATIENT WITH TRACH ON COOL AEROSOL. TRACH IS PATENT AND SECURED. SPARE TRACH AND BVM IS AT BEDSIDE. PATIENT HAS EQUAL CHEST RISE WITH COARSE AND DIMINISHED BILATERAL BREATH SOUNDS. SUCTION SMALL AMOUNT OF GREEN THIN SECRETIONS THROUGH OUT THE DAY. Q6 BREATHING TREATMENTS GIVEN WITH NO ADVERSE REACTIONS. Addendum: 06/14/19 at 1803 by WANAD NAM RT Amended: Links added.
[2019-06-14 20:09] VITALS: BP 105/77
[2019-06-14 22:00] VITALS: BP_SYST 104; BP_SYST 105; BP_DIAS 63; BP_DIAS 77
[2019-06-15] MEDS: ALBUTEROL FS 2.5 MG/3 ML VIAL.NEB NEB SCH ×4 (00:56→20:10)
[2019-06-15] MEDS: IPRATROPIUM NEB FS 0.5 MG/2.5 ML AMPUL.NEB IH SCH ×4 (00:56→20:10)
[2019-06-15] MEDS: OMEPRAZOLE 20 MG CAPSULE.DR GT SCH (05:25)
[2019-06-15] MEDS: METOCLOPRAMIDE HCL 10 MG/10 ML UDC GT SCH ×4 (05:25→23:36)
[2019-06-15] MEDS: LEVOTHYROXINE SODIUM 88 MCG TABLET GT SCH (05:25)
[2019-06-15] MEDS: GLUCERNA 1.2 1,000 ML BOTTLE GT PRN (05:35)
[2019-06-15 07:45] VITALS: BP 122/62
[2019-06-15] MEDS: LEVETIRACETAM SOL (5 ML) 100 MG/ML UDC GT SCH ×2 (08:18→21:06)
[2019-06-15] MEDS: CARBOXYMETHYLCELLULOSE SODIUM 0.4 ML DROPERETTE EACHEYE SCH (08:18)
[2019-06-15] MEDS: MULTIVIT W/MINERALS 1 TAB TABLET GT SCH (08:18)
[2019-06-15] MEDS: PROSTAT (PYXIS) 30 ML UDC GT SCH ×3 (08:18→17:21)
[2019-06-15] MEDS: ACIDOPHILUS/BULGARICUS 1 EACH TAB.CHEW GT SCH ×2 (08:18→17:21)
[2019-06-15] MEDS: ZINC SULFATE 220 MG CAPSULE GT SCH (08:19)
[2019-06-15] MEDS: ACETAMINOPHEN 650 MG/20 ML UDC- SA PATIENTS-PAIN ONLY GT SCH ×2 (08:19→21:06)
[2019-06-15] MEDS: ASCORBIC ACID 500 MG TABLET GT SCH (08:19)
[2019-06-15] MEDS: CHLORHEXIDINE GLUCONATE 15 ML UDC MM SCH ×2 (08:19→21:29)
[2019-06-15] MEDS: COD LIVER OIL/ZINC OXIDE 120 GM TUBE TP SCH ×2 (08:49→21:29)
[2019-06-15] MEDS: HYDROGEN PEROXIDE 480 ML BOTTLE TP SCH ×2 (09:27→21:22)
[2019-06-15 12:00] VITALS: BP 104/68
[2019-06-15 18:39] VITALS: BP 112/64
[2019-06-15 20:44] VITALS: BP 117/60
[2019-06-15 22:15] VITALS: BP 122/66
[2019-06-16] MEDS: ALBUTEROL FS 2.5 MG/3 ML VIAL.NEB NEB SCH ×4 (02:05→19:39)
[2019-06-16] MEDS: IPRATROPIUM NEB FS 0.5 MG/2.5 ML AMPUL.NEB IH SCH ×4 (02:05→19:39)
[2019-06-16] MEDS: OMEPRAZOLE 20 MG CAPSULE.DR GT SCH (06:10)
[2019-06-16] MEDS: METOCLOPRAMIDE HCL 10 MG/10 ML UDC GT SCH ×3 (06:10→17:38)
[2019-06-16] MEDS: LEVOTHYROXINE SODIUM 88 MCG TABLET GT SCH (06:11)
[2019-06-16] MEDS: GLUCERNA 1.2 1,000 ML BOTTLE GT PRN (06:11)
[2019-06-16 07:30] VITALS: BP 103/69
[2019-06-16] MEDS: HYDROGEN PEROXIDE 480 ML BOTTLE TP SCH ×2 (08:11→21:10)
[2019-06-16] MEDS: MULTIVIT W/MINERALS 1 TAB TABLET GT SCH (08:27)
[2019-06-16] MEDS: LEVETIRACETAM SOL (5 ML) 100 MG/ML UDC GT SCH ×2 (08:27→21:11)
[2019-06-16] MEDS: ACIDOPHILUS/BULGARICUS 1 EACH TAB.CHEW GT SCH ×2 (08:27→17:38)
[2019-06-16] MEDS: PROSTAT (PYXIS) 30 ML UDC GT SCH ×3 (08:27→17:38)
[2019-06-16] MEDS: CARBOXYMETHYLCELLULOSE SODIUM 0.4 ML DROPERETTE EACHEYE SCH (08:27)
[2019-06-16] MEDS: CHLORHEXIDINE GLUCONATE 15 ML UDC MM SCH ×2 (08:28→21:12)
[2019-06-16] MEDS: ASCORBIC ACID 500 MG TABLET GT SCH (08:28)
[2019-06-16] MEDS: ACETAMINOPHEN 650 MG/20 ML UDC- SA PATIENTS-PAIN ONLY GT SCH ×2 (08:28→21:12)
[2019-06-16] MEDS: ZINC SULFATE 220 MG CAPSULE GT SCH (08:28)
[2019-06-16] MEDS: COD LIVER OIL/ZINC OXIDE 120 GM TUBE TP SCH ×2 (09:30→21:12)
[2019-06-16 12:00] VITALS: BP 116/63
--- NOTE | 2019-06-16 17:10 | NUR ---
ROUTINE MONTHLY TRACH CHANGE. USED A SHILEY 6 CUFFED. CUFFED IS DEFLATED AND SPARE TRACH AND BVM IS AT BEDSIDE.PATIENT TOLERATED PROCEDURE WELL. MINIMAL BLEEDING NOTED. PATIENT HAS EQUAL CHEST RISE WITH COARSE BILATERAL BREATH SOUNDS. STEREOTYPE FINISHER AWARE. WILL CONTINUE TO MONITOR. Addendum: 06/16/19 at 1711 by WANDA NAM RT Amended: Links added.
[2019-06-16 20:34] VITALS: BP 118/55
[2019-06-16 22:05] VITALS: BP 118/55
[2019-06-17] MEDS: METOCLOPRAMIDE HCL 10 MG/10 ML UDC GT SCH ×5 (00:11→23:47)
[2019-06-17] MEDS: IPRATROPIUM NEB FS 0.5 MG/2.5 ML AMPUL.NEB IH SCH ×4 (01:44→19:34)
[2019-06-17] MEDS: ALBUTEROL FS 2.5 MG/3 ML VIAL.NEB NEB SCH ×4 (01:44→19:34)
[2019-06-17] MEDS: OMEPRAZOLE 20 MG CAPSULE.DR GT SCH (05:52)
[2019-06-17] MEDS: LEVOTHYROXINE SODIUM 88 MCG TABLET GT SCH (05:52)
[2019-06-17 07:35] VITALS: BP 100/48
[2019-06-17] MEDS: HYDROGEN PEROXIDE 480 ML BOTTLE TP SCH ×2 (08:12→21:00)
[2019-06-17] MEDS: ACIDOPHILUS/BULGARICUS 1 EACH TAB.CHEW GT SCH ×2 (09:00→16:51)
[2019-06-17] MEDS: COD LIVER OIL/ZINC OXIDE 120 GM TUBE TP SCH ×2 (09:00→21:09)
[2019-06-17] MEDS: CHLORHEXIDINE GLUCONATE 15 ML UDC MM SCH ×2 (09:00→21:09)
[2019-06-17] MEDS: ASCORBIC ACID 500 MG TABLET GT SCH (09:00)
[2019-06-17] MEDS: ACETAMINOPHEN 650 MG/20 ML UDC- SA PATIENTS-PAIN ONLY GT SCH ×2 (09:00→21:09)
[2019-06-17] MEDS: CARBOXYMETHYLCELLULOSE SODIUM 0.4 ML DROPERETTE EACHEYE SCH (09:00)
[2019-06-17] MEDS: LEVETIRACETAM SOL (5 ML) 100 MG/ML UDC GT SCH ×2 (09:00→21:09)
[2019-06-17] MEDS: MULTIVIT W/MINERALS 1 TAB TABLET GT SCH (09:00)
[2019-06-17] MEDS: ZINC SULFATE 220 MG CAPSULE GT SCH (09:00)
[2019-06-17] MEDS: PROSTAT (PYXIS) 30 ML UDC GT SCH ×3 (09:00→16:51)
[2019-06-17 15:04] VITALS: BP 116/63
[2019-06-17 19:52] VITALS: BP 128/64
--- NOTE | 2019-06-17 20:20 | NUR ---
RN NOTES Seen and examined by Becca Smith NP, with NNO.
[2019-06-17 22:06] VITALS: BP 128/64
[2019-06-18] MEDS: IPRATROPIUM NEB FS 0.5 MG/2.5 ML AMPUL.NEB IH SCH ×4 (01:22→19:49)
[2019-06-18] MEDS: ALBUTEROL FS 2.5 MG/3 ML VIAL.NEB NEB SCH ×4 (01:22→19:49)
[2019-06-18] MEDS: OMEPRAZOLE 20 MG CAPSULE.DR GT SCH (05:51)
[2019-06-18] MEDS: METOCLOPRAMIDE HCL 10 MG/10 ML UDC GT SCH ×4 (05:51→23:20)
[2019-06-18] MEDS: LEVOTHYROXINE SODIUM 88 MCG TABLET GT SCH (05:51)
[2019-06-18 07:33] VITALS: BP_SYST 109; BP_SYST 117; BP_DIAS 63; BP_DIAS 68
[2019-06-18] MEDS: HYDROGEN PEROXIDE 480 ML BOTTLE TP SCH ×2 (08:53→19:49)
[2019-06-18] MEDS: COD LIVER OIL/ZINC OXIDE 120 GM TUBE TP SCH ×2 (09:00→20:20)
[2019-06-18] MEDS: LEVETIRACETAM SOL (5 ML) 100 MG/ML UDC GT SCH ×2 (09:07→20:20)
[2019-06-18] MEDS: MULTIVIT W/MINERALS 1 TAB TABLET GT SCH (09:07)
[2019-06-18] MEDS: CARBOXYMETHYLCELLULOSE SODIUM 0.4 ML DROPERETTE EACHEYE SCH (09:07)
[2019-06-18] MEDS: ACIDOPHILUS/BULGARICUS 1 EACH TAB.CHEW GT SCH ×2 (09:07→17:19)
[2019-06-18] MEDS: PROSTAT (PYXIS) 30 ML UDC GT SCH ×3 (09:07→17:19)
[2019-06-18] MEDS: ACETAMINOPHEN 650 MG/20 ML UDC- SA PATIENTS-PAIN ONLY GT SCH ×2 (09:08→20:20)
[2019-06-18] MEDS: CHLORHEXIDINE GLUCONATE 15 ML UDC MM SCH ×2 (09:08→20:20)
[2019-06-18] MEDS: ZINC SULFATE 220 MG CAPSULE GT SCH (09:08)
[2019-06-18] MEDS: ASCORBIC ACID 500 MG TABLET GT SCH (09:08)
[2019-06-18] MEDS: GLUCERNA 1.2 1,000 ML BOTTLE GT PRN (11:51)
[2019-06-18 12:50] VITALS: BP 117/51
[2019-06-18 18:29] VITALS: BP 119/60
[2019-06-18 20:00] VITALS: BP 125/58
[2019-06-18 23:08] VITALS: BP 116/69
[2019-06-19] MEDS: IPRATROPIUM NEB FS 0.5 MG/2.5 ML AMPUL.NEB IH SCH ×4 (01:43→19:21)
[2019-06-19] MEDS: ALBUTEROL FS 2.5 MG/3 ML VIAL.NEB NEB SCH ×4 (01:43→19:21)
[2019-06-19] MEDS: LEVOTHYROXINE SODIUM 88 MCG TABLET GT SCH (06:00)
[2019-06-19] MEDS: METOCLOPRAMIDE HCL 10 MG/10 ML UDC GT SCH ×4 (06:00→23:59)
[2019-06-19] MEDS: OMEPRAZOLE 20 MG CAPSULE.DR GT SCH (06:00)
[2019-06-19 08:07] VITALS: BP 136/74
[2019-06-19] MEDS: HYDROGEN PEROXIDE 480 ML BOTTLE TP SCH ×2 (09:00→21:12)
[2019-06-19] MEDS: ACIDOPHILUS/BULGARICUS 1 EACH TAB.CHEW GT SCH ×2 (09:52→17:30)
[2019-06-19] MEDS: ACETAMINOPHEN 650 MG/20 ML UDC- SA PATIENTS-PAIN ONLY GT SCH ×2 (09:52→21:03)
[2019-06-19] MEDS: CARBOXYMETHYLCELLULOSE SODIUM 0.4 ML DROPERETTE EACHEYE SCH (09:52)
[2019-06-19] MEDS: ASCORBIC ACID 500 MG TABLET GT SCH (09:52)
[2019-06-19] MEDS: PROSTAT (PYXIS) 30 ML UDC GT SCH ×3 (09:52→17:30)
[2019-06-19] MEDS: CHLORHEXIDINE GLUCONATE 15 ML UDC MM SCH ×2 (09:52→21:03)
[2019-06-19] MEDS: MULTIVIT W/MINERALS 1 TAB TABLET GT SCH (09:52)
[2019-06-19] MEDS: LEVETIRACETAM SOL (5 ML) 100 MG/ML UDC GT SCH ×2 (09:52→21:02)
[2019-06-19] MEDS: COD LIVER OIL/ZINC OXIDE 120 GM TUBE TP SCH ×2 (09:52→21:35)
[2019-06-19] MEDS: ZINC SULFATE 220 MG CAPSULE GT SCH (09:52)
[2019-06-19] MEDS: GLUCERNA 1.2 1,000 ML BOTTLE GT PRN (10:42)
[2019-06-19 12:00] VITALS: BP 112/64
--- NOTE | 2019-06-19 12:27 | NUR ---
Family Support Group: The patients family was not able to attend the family support group today.
[2019-06-19 19:59] VITALS: BP 116/67
[2019-06-19 20:00] VITALS: BP 119/70
[2019-06-19 20:01] VITALS: BP 116/67
[2019-06-19 22:00] VITALS: BP 119/79
[2019-06-20] MEDS: ALBUTEROL FS 2.5 MG/3 ML VIAL.NEB NEB SCH ×4 (01:03→19:29)
[2019-06-20] MEDS: IPRATROPIUM NEB FS 0.5 MG/2.5 ML AMPUL.NEB IH SCH ×4 (01:03→19:29)
[2019-06-20] MEDS: OMEPRAZOLE 20 MG CAPSULE.DR GT SCH (06:04)
[2019-06-20] MEDS: GLUCERNA 1.2 1,000 ML BOTTLE GT PRN (06:04)
[2019-06-20] MEDS: METOCLOPRAMIDE HCL 10 MG/10 ML UDC GT SCH ×4 (06:04→23:34)
[2019-06-20] MEDS: LEVOTHYROXINE SODIUM 88 MCG TABLET GT SCH (06:04)
[2019-06-20 07:34] VITALS: BP 117/67
[2019-06-20] MEDS: MULTIVIT W/MINERALS 1 TAB TABLET GT SCH (08:27)
[2019-06-20] MEDS: LEVETIRACETAM SOL (5 ML) 100 MG/ML UDC GT SCH ×2 (08:27→20:40)
[2019-06-20] MEDS: CARBOXYMETHYLCELLULOSE SODIUM 0.4 ML DROPERETTE EACHEYE SCH (08:27)
[2019-06-20] MEDS: PROSTAT (PYXIS) 30 ML UDC GT SCH ×3 (08:27→17:34)
[2019-06-20] MEDS: ACIDOPHILUS/BULGARICUS 1 EACH TAB.CHEW GT SCH ×2 (08:27→17:34)
[2019-06-20] MEDS: ASCORBIC ACID 500 MG TABLET GT SCH (08:31)
[2019-06-20] MEDS: ACETAMINOPHEN 650 MG/20 ML UDC- SA PATIENTS-PAIN ONLY GT SCH ×2 (08:31→20:40)
[2019-06-20] MEDS: ZINC SULFATE 220 MG CAPSULE GT SCH (08:31)
[2019-06-20] MEDS: COD LIVER OIL/ZINC OXIDE 120 GM TUBE TP SCH ×2 (09:00→21:47)
[2019-06-20] MEDS: HYDROGEN PEROXIDE 480 ML BOTTLE TP SCH ×2 (09:00→20:25)
[2019-06-20] MEDS: CHLORHEXIDINE GLUCONATE 15 ML UDC MM SCH ×2 (12:13→20:40)
[2019-06-20 12:45] VITALS: BP 114/65
[2019-06-20 18:45] VITALS: BP 118/54
[2019-06-20 19:47] VITALS: BP 123/67
[2019-06-20 22:15] VITALS: BP 120/62
[2019-06-21] MEDS: IPRATROPIUM NEB FS 0.5 MG/2.5 ML AMPUL.NEB IH SCH ×4 (01:15→19:47)
[2019-06-21] MEDS: ALBUTEROL FS 2.5 MG/3 ML VIAL.NEB NEB SCH ×4 (01:15→19:47)
[2019-06-21] MEDS: OMEPRAZOLE 20 MG CAPSULE.DR GT SCH (05:10)
[2019-06-21] MEDS: METOCLOPRAMIDE HCL 10 MG/10 ML UDC GT SCH ×3 (05:10→16:54)
[2019-06-21] MEDS: GLUCERNA 1.2 1,000 ML BOTTLE GT PRN (05:10)
[2019-06-21] MEDS: LEVOTHYROXINE SODIUM 88 MCG TABLET GT SCH (05:10)
[2019-06-21 07:30] VITALS: BP 132/70
[2019-06-21] MEDS: HYDROGEN PEROXIDE 480 ML BOTTLE TP SCH ×2 (08:02→19:47)
[2019-06-21] MEDS: PROSTAT (PYXIS) 30 ML UDC GT SCH ×3 (09:09→16:54)
[2019-06-21] MEDS: ACIDOPHILUS/BULGARICUS 1 EACH TAB.CHEW GT SCH ×2 (09:09→16:54)
[2019-06-21] MEDS: CARBOXYMETHYLCELLULOSE SODIUM 0.4 ML DROPERETTE EACHEYE SCH (09:09)
[2019-06-21] MEDS: LEVETIRACETAM SOL (5 ML) 100 MG/ML UDC GT SCH ×2 (09:09→20:44)
[2019-06-21] MEDS: MULTIVIT W/MINERALS 1 TAB TABLET GT SCH (09:09)
[2019-06-21] MEDS: COD LIVER OIL/ZINC OXIDE 120 GM TUBE TP SCH ×2 (09:11→21:43)
[2019-06-21] MEDS: ZINC SULFATE 220 MG CAPSULE GT SCH (09:11)
[2019-06-21] MEDS: ACETAMINOPHEN 650 MG/20 ML UDC- SA PATIENTS-PAIN ONLY GT SCH ×2 (09:11→20:44)
[2019-06-21] MEDS: ASCORBIC ACID 500 MG TABLET GT SCH (09:11)
[2019-06-21] MEDS: CHLORHEXIDINE GLUCONATE 15 ML UDC MM SCH ×2 (09:11→20:44)
[2019-06-21 11:40] VITALS: BP 126/71
--- NOTE | 2019-06-21 15:28 | NUR ---
INTERDISCIPLINARY PLAN OF CARE CONFERENCE was held today. The patients responsible green party/daughter, Reyna Galindo [phone] participated via phone conference. Charge nurse discussed continue Tx on pressure ulcer. Dr. Monet and Interdisciplinary team discussed the plan of care in detail. Current orders as well as treatments and medications were reviewed. Pharmacist recommended TSH levels test. Reyna is requesting that pt. put on Bolus feeding for 24 hours. Interdisciplinary team advised against it as pt. is tolerating continuous feeding. To be deferred to the patients attending physician, . See other disciplines IDT notes for further details.
--- NOTE | 2019-06-21 16:00 | NUR ---
Dr. Ross seen and examined resident, mentioned to him about the daughter's request to do bolus feeding trial x 24 hours. He said we can try during the week and have used car sales supervisor calculate the bolus feeding amount and frequency. TSH requested for Monday.
--- NOTE | 2019-06-21 17:38 | NUR ---
RT NOTE RECEIVED PATIENT WITH TRACH ON COOL AEROSOL. TRACH IS PATENT AND SECURED. SPARE TRACH AND BVM IS AT BEDSIDE. PATIENT HAS EQUAL CHEST RISE WITH COARSE AND DIMINISHED BILATERAL BREATH SOUNDS. SUCTION SMALL AMOUNT OF GREEN THIN SECRETIONS THROUGH OUT THE DAY. PATIENT TOLERATED Q6 BREATHING TREATMENTS WELL. Addendum: 06/21/19 at 1739 by WANDA NAM RT Amended: Links added.
[2019-06-21 20:04] VITALS: BP 137/82
[2019-06-21 22:00] VITALS: BP 118/73
[2019-06-22] MEDS: METOCLOPRAMIDE HCL 10 MG/10 ML UDC GT SCH ×4 (00:28→17:11)
[2019-06-22] MEDS: IPRATROPIUM NEB FS 0.5 MG/2.5 ML AMPUL.NEB IH SCH ×4 (00:39→19:20)
[2019-06-22] MEDS: ALBUTEROL FS 2.5 MG/3 ML VIAL.NEB NEB SCH ×4 (00:39→19:20)
[2019-06-22] MEDS: OMEPRAZOLE 20 MG CAPSULE.DR GT SCH (05:54)
[2019-06-22] MEDS: LEVOTHYROXINE SODIUM 88 MCG TABLET GT SCH (05:54)
[2019-06-22 07:40] VITALS: BP 115/86
[2019-06-22] MEDS: MULTIVIT W/MINERALS 1 TAB TABLET GT SCH (08:01)
[2019-06-22] MEDS: CARBOXYMETHYLCELLULOSE SODIUM 0.4 ML DROPERETTE EACHEYE SCH (08:01)
[2019-06-22] MEDS: LEVETIRACETAM SOL (5 ML) 100 MG/ML UDC GT SCH ×2 (08:01→21:43)
[2019-06-22] MEDS: ACIDOPHILUS/BULGARICUS 1 EACH TAB.CHEW GT SCH ×2 (08:01→16:04)
[2019-06-22] MEDS: PROSTAT (PYXIS) 30 ML UDC GT SCH ×3 (08:01→16:04)
[2019-06-22] MEDS: ASCORBIC ACID 500 MG TABLET GT SCH (08:02)
[2019-06-22] MEDS: ZINC SULFATE 220 MG CAPSULE GT SCH (08:02)
[2019-06-22] MEDS: ACETAMINOPHEN 650 MG/20 ML UDC- SA PATIENTS-PAIN ONLY GT SCH ×2 (08:02→21:43)
[2019-06-22] MEDS: CHLORHEXIDINE GLUCONATE 15 ML UDC MM SCH ×2 (08:03→21:43)
[2019-06-22] MEDS: HYDROGEN PEROXIDE 480 ML BOTTLE TP SCH ×2 (08:13→20:18)
--- NOTE | 2019-06-22 09:00 | NUR ---
Jamil catheter noted bypassing urine. Jamil-catheter changed as ordered. New Jamil-catheter draining clear yellow urine. Tolerated procedure well.
[2019-06-22] MEDS: COD LIVER OIL/ZINC OXIDE 120 GM TUBE TP SCH ×2 (09:02→21:43)
[2019-06-22 12:00] VITALS: BP 118/52
[2019-06-22] MEDS: GLUCERNA 1.2 1,000 ML BOTTLE GT PRN (12:59)
[2019-06-22 20:13] VITALS: BP 109/64
[2019-06-22 22:00] VITALS: BP 109/64
[2019-06-23] MEDS: METOCLOPRAMIDE HCL 10 MG/10 ML UDC GT SCH ×5 (00:59→23:56)
[2019-06-23] MEDS: ALBUTEROL FS 2.5 MG/3 ML VIAL.NEB NEB SCH ×4 (01:09→19:32)
[2019-06-23] MEDS: IPRATROPIUM NEB FS 0.5 MG/2.5 ML AMPUL.NEB IH SCH ×4 (01:09→19:32)
[2019-06-23] MEDS: OMEPRAZOLE 20 MG CAPSULE.DR GT SCH (05:01)
[2019-06-23] MEDS: LEVOTHYROXINE SODIUM 88 MCG TABLET GT SCH (05:01)
[2019-06-23 07:42] VITALS: BP 114/71
[2019-06-23] MEDS: HYDROGEN PEROXIDE 480 ML BOTTLE TP SCH ×2 (08:18→21:14)
[2019-06-23] MEDS: PROSTAT (PYXIS) 30 ML UDC GT SCH ×3 (09:40→16:48)
[2019-06-23] MEDS: LEVETIRACETAM SOL (5 ML) 100 MG/ML UDC GT SCH ×2 (09:40→21:16)
[2019-06-23] MEDS: CARBOXYMETHYLCELLULOSE SODIUM 0.4 ML DROPERETTE EACHEYE SCH (09:40)
[2019-06-23] MEDS: ACIDOPHILUS/BULGARICUS 1 EACH TAB.CHEW GT SCH ×2 (09:40→16:48)
[2019-06-23] MEDS: MULTIVIT W/MINERALS 1 TAB TABLET GT SCH (09:40)
[2019-06-23] MEDS: CHLORHEXIDINE GLUCONATE 15 ML UDC MM SCH ×2 (09:41→21:16)
[2019-06-23] MEDS: ASCORBIC ACID 500 MG TABLET GT SCH (09:41)
[2019-06-23] MEDS: ZINC SULFATE 220 MG CAPSULE GT SCH (09:41)
[2019-06-23] MEDS: ACETAMINOPHEN 650 MG/20 ML UDC- SA PATIENTS-PAIN ONLY GT SCH ×2 (09:41→21:16)
[2019-06-23] MEDS: GLUCERNA 1.2 1,000 ML BOTTLE GT PRN (10:10)
[2019-06-23] MEDS: COD LIVER OIL/ZINC OXIDE 120 GM TUBE TP SCH ×2 (10:45→21:17)
[2019-06-23 12:00] VITALS: BP 102/60
[2019-06-23 20:35] VITALS: BP 119/55
[2019-06-23 22:03] VITALS: BP 109/64
[2019-06-24] MEDS: IPRATROPIUM NEB FS 0.5 MG/2.5 ML AMPUL.NEB IH SCH ×4 (01:31→19:20)
[2019-06-24] MEDS: ALBUTEROL FS 2.5 MG/3 ML VIAL.NEB NEB SCH ×4 (01:31→19:20)
[2019-06-24] MEDS: LEVOTHYROXINE SODIUM 88 MCG TABLET GT SCH (05:55)
[2019-06-24] MEDS: METOCLOPRAMIDE HCL 10 MG/10 ML UDC GT SCH ×3 (05:55→17:23)
[2019-06-24] MEDS: OMEPRAZOLE 20 MG CAPSULE.DR GT SCH (05:55)
[2019-06-24 07:41] VITALS: BP 134/79
[2019-06-24] MEDS: HYDROGEN PEROXIDE 480 ML BOTTLE TP SCH ×2 (07:54→21:00)
[2019-06-24] MEDS: PROSTAT (PYXIS) 30 ML UDC GT SCH ×3 (08:46→17:23)
[2019-06-24] MEDS: ACIDOPHILUS/BULGARICUS 1 EACH TAB.CHEW GT SCH ×2 (08:46→17:23)
[2019-06-24] MEDS: MULTIVIT W/MINERALS 1 TAB TABLET GT SCH (08:46)
[2019-06-24] MEDS: LEVETIRACETAM SOL (5 ML) 100 MG/ML UDC GT SCH ×2 (08:46→20:04)
[2019-06-24] MEDS: CARBOXYMETHYLCELLULOSE SODIUM 0.4 ML DROPERETTE EACHEYE SCH (08:46)
[2019-06-24] MEDS: CHLORHEXIDINE GLUCONATE 15 ML UDC MM SCH ×2 (08:47→20:05)
[2019-06-24] MEDS: ASCORBIC ACID 500 MG TABLET GT SCH (08:47)
[2019-06-24] MEDS: ZINC SULFATE 220 MG CAPSULE GT SCH (08:47)
[2019-06-24] MEDS: ACETAMINOPHEN 650 MG/20 ML UDC- SA PATIENTS-PAIN ONLY GT SCH ×2 (08:47→20:05)
[2019-06-24] MEDS: COD LIVER OIL/ZINC OXIDE 120 GM TUBE TP SCH ×2 (09:00→20:06)
--- NOTE | 2019-06-24 09:34 | NUR ---
Spoke with HYUN Castillo regarding bolus feeding trial for 24 hours. She will call back for recommendation.
--- NOTE | 2019-06-24 10:00 | NUR ---
Received order to give Glucerna 1.2 200 mL via GT q 4 hours to provide 1200 mL/1440 ehrnando for 24 hours (for 24-hour bolus trial). Will start tomorrow
[2019-06-24] MEDS ORDERED: GLUCERNA 1.2 1,000 ML BOTTLE GT PRN (11:30)
[2019-06-24 19:33] VITALS: BP 134/69
[2019-06-24 20:00] VITALS: BP 124/68
[2019-06-24 20:11] VITALS: BP 124/68
[2019-06-24 22:00] VITALS: BP 124/68
[2019-06-25] MEDS: METOCLOPRAMIDE HCL 10 MG/10 ML UDC GT SCH ×5 (00:01→23:42)
[2019-06-25] MEDS: GLUCERNA 1.2 1,000 ML BOTTLE GT SCH ×6 (01:00→21:12)
[2019-06-25] MEDS: ALBUTEROL FS 2.5 MG/3 ML VIAL.NEB NEB SCH ×4 (01:21→19:14)
[2019-06-25] MEDS: IPRATROPIUM NEB FS 0.5 MG/2.5 ML AMPUL.NEB IH SCH ×4 (01:21→19:14)
[2019-06-25] MEDS: OMEPRAZOLE 20 MG CAPSULE.DR GT SCH (05:16)
[2019-06-25] MEDS: LEVOTHYROXINE SODIUM 88 MCG TABLET GT SCH (05:16)
[2019-06-25 07:44] VITALS: BP 127/67
[2019-06-25] MEDS: PROSTAT (PYXIS) 30 ML UDC GT SCH ×3 (08:34→16:16)
[2019-06-25] MEDS: MULTIVIT W/MINERALS 1 TAB TABLET GT SCH (08:34)
[2019-06-25] MEDS: ACETAMINOPHEN 650 MG/20 ML UDC- SA PATIENTS-PAIN ONLY GT SCH ×2 (08:34→21:12)
[2019-06-25] MEDS: LEVETIRACETAM SOL (5 ML) 100 MG/ML UDC GT SCH ×2 (08:34→21:12)
[2019-06-25] MEDS: CARBOXYMETHYLCELLULOSE SODIUM 0.4 ML DROPERETTE EACHEYE SCH (08:34)
[2019-06-25] MEDS: ACIDOPHILUS/BULGARICUS 1 EACH TAB.CHEW GT SCH ×2 (08:34→16:16)
[2019-06-25] MEDS: ZINC SULFATE 220 MG CAPSULE GT SCH (08:35)
[2019-06-25] MEDS: ASCORBIC ACID 500 MG TABLET GT SCH (08:35)
[2019-06-25] MEDS: CHLORHEXIDINE GLUCONATE 15 ML UDC MM SCH ×2 (08:35→21:12)
[2019-06-25] MEDS: HYDROGEN PEROXIDE 480 ML BOTTLE TP SCH ×2 (09:00→21:38)
[2019-06-25] MEDS: COD LIVER OIL/ZINC OXIDE 120 GM TUBE TP SCH ×2 (09:00→21:12)
--- NOTE | 2019-06-25 09:00 | NUR ---
Seen and examined by Dr. Monet, no new order given.
[2019-06-25 10:00] VITALS: BP 102/63
--- NOTE | 2019-06-25 18:00 | NUR ---
Started today the bolus feeding trial x 24 hours, tolerated well, no vomiting noted. Will continue to monitor.
[2019-06-25 20:24] VITALS: BP 134/75
[2019-06-25 22:06] VITALS: BP 134/75
[2019-06-26] MEDS: IPRATROPIUM NEB FS 0.5 MG/2.5 ML AMPUL.NEB IH SCH ×4 (00:55→19:55)
[2019-06-26] MEDS: ALBUTEROL FS 2.5 MG/3 ML VIAL.NEB NEB SCH ×4 (00:55→19:55)
[2019-06-26] MEDS: GLUCERNA 1.2 1,000 ML BOTTLE GT SCH ×6 (01:00→21:32)
[2019-06-26] MEDS: METOCLOPRAMIDE HCL 10 MG/10 ML UDC GT SCH ×3 (05:53→17:28)
[2019-06-26] MEDS: OMEPRAZOLE 20 MG CAPSULE.DR GT SCH (05:53)
[2019-06-26] MEDS: LEVOTHYROXINE SODIUM 88 MCG TABLET GT SCH (05:53)
[2019-06-26 07:57] VITALS: BP 125/57
[2019-06-26] MEDS: HYDROGEN PEROXIDE 480 ML BOTTLE TP SCH ×2 (08:15→19:55)
[2019-06-26] MEDS: COD LIVER OIL/ZINC OXIDE 120 GM TUBE TP SCH ×2 (08:57→20:40)
[2019-06-26] MEDS: PROSTAT (PYXIS) 30 ML UDC GT SCH ×3 (08:58→17:22)
[2019-06-26] MEDS: ACIDOPHILUS/BULGARICUS 1 EACH TAB.CHEW GT SCH ×2 (08:58→17:22)
[2019-06-26] MEDS: LEVETIRACETAM SOL (5 ML) 100 MG/ML UDC GT SCH ×2 (08:58→20:38)
[2019-06-26] MEDS: ACETAMINOPHEN 650 MG/20 ML UDC- SA PATIENTS-PAIN ONLY GT SCH ×2 (08:58→20:39)
[2019-06-26] MEDS: CARBOXYMETHYLCELLULOSE SODIUM 0.4 ML DROPERETTE EACHEYE SCH (08:58)
[2019-06-26] MEDS: CHLORHEXIDINE GLUCONATE 15 ML UDC MM SCH ×2 (08:58→20:40)
[2019-06-26] MEDS: MULTIVIT W/MINERALS 1 TAB TABLET GT SCH (08:58)
[2019-06-26] MEDS: ASCORBIC ACID 500 MG TABLET GT SCH (08:58)
[2019-06-26] MEDS: ZINC SULFATE 220 MG CAPSULE GT SCH (08:58)
[2019-06-26 10:00] VITALS: BP 125/57
--- NOTE | 2019-06-26 15:30 | NUR ---
Dr. Ross informed that resident tolerated the 24 hour bolus feeding trial, no vomiting, no residual. He said to continue with bolus feeding. Left message to Reyna. Will continue to monitor.
[2019-06-26 20:33] VITALS: BP 118/63
[2019-06-26 22:00] VITALS: BP 118/63
[2019-06-27] MEDS: METOCLOPRAMIDE HCL 10 MG/10 ML UDC GT SCH ×5 (00:09→23:30)
[2019-06-27] MEDS: IPRATROPIUM NEB FS 0.5 MG/2.5 ML AMPUL.NEB IH SCH ×4 (00:49→20:08)
[2019-06-27] MEDS: ALBUTEROL FS 2.5 MG/3 ML VIAL.NEB NEB SCH ×4 (00:49→20:08)
[2019-06-27] MEDS: GLUCERNA 1.2 1,000 ML BOTTLE GT SCH ×6 (00:50→20:05)
[2019-06-27] MEDS: LEVOTHYROXINE SODIUM 88 MCG TABLET GT SCH (05:15)
[2019-06-27] MEDS: OMEPRAZOLE 20 MG CAPSULE.DR GT SCH (05:15)
[2019-06-27 07:23] VITALS: BP 119/58
[2019-06-27] MEDS: HYDROGEN PEROXIDE 480 ML BOTTLE TP SCH ×2 (08:29→20:06)
[2019-06-27] MEDS: LEVETIRACETAM SOL (5 ML) 100 MG/ML UDC GT SCH ×2 (08:51→20:05)
[2019-06-27] MEDS: ACIDOPHILUS/BULGARICUS 1 EACH TAB.CHEW GT SCH ×2 (08:51→17:52)
[2019-06-27] MEDS: PROSTAT (PYXIS) 30 ML UDC GT SCH ×3 (08:51→17:52)
[2019-06-27] MEDS: CARBOXYMETHYLCELLULOSE SODIUM 0.4 ML DROPERETTE EACHEYE SCH (08:51)
[2019-06-27] MEDS: ZINC SULFATE 220 MG CAPSULE GT SCH (08:52)
[2019-06-27] MEDS: ACETAMINOPHEN 650 MG/20 ML UDC- SA PATIENTS-PAIN ONLY GT SCH ×2 (08:52→20:06)
[2019-06-27] MEDS: MULTIVIT W/MINERALS 1 TAB TABLET GT SCH (08:52)
[2019-06-27] MEDS: CHLORHEXIDINE GLUCONATE 15 ML UDC MM SCH ×2 (08:52→20:06)
[2019-06-27] MEDS: ASCORBIC ACID 500 MG TABLET GT SCH (08:52)
[2019-06-27] MEDS: COD LIVER OIL/ZINC OXIDE 120 GM TUBE TP SCH ×2 (09:30→20:06)
--- NOTE | 2019-06-27 15:46 | NUR ---
Resident is passive unable to make needs known.Trejo Addendum: 06/27/19 at 1607 by ANA JOSHI ACT Resident is passive unble make needs known. Does not respond to tactile stimulai .Sometimes eyes open but does not not tracck. Her daughters are very supportive often visit her.She received daily visits for sensory stimulation tv music hand massage reality orientation.Continue to provide these activities as needed
[2019-06-27 18:43] VITALS: BP 119/58
--- NOTE | 2019-06-27 20:26 | NUR ---
Seen and examined by TERESA Smith no new orders.
[2019-06-27 20:39] VITALS: BP 139/84
[2019-06-27 22:00] VITALS: BP 139/84
[2019-06-28] MEDS: GLUCERNA 1.2 1,000 ML BOTTLE GT SCH ×6 (00:38→20:06)
[2019-06-28] MEDS: IPRATROPIUM NEB FS 0.5 MG/2.5 ML AMPUL.NEB IH SCH ×4 (01:09→19:37)
[2019-06-28] MEDS: ALBUTEROL FS 2.5 MG/3 ML VIAL.NEB NEB SCH ×4 (01:09→19:37)
[2019-06-28] MEDS: OMEPRAZOLE 20 MG CAPSULE.DR GT SCH (05:05)
[2019-06-28] MEDS: LEVOTHYROXINE SODIUM 88 MCG TABLET GT SCH (05:05)
[2019-06-28] MEDS: METOCLOPRAMIDE HCL 10 MG/10 ML UDC GT SCH ×4 (05:05→23:21)
[2019-06-28 07:36] VITALS: BP 127/69
[2019-06-28] MEDS: HYDROGEN PEROXIDE 480 ML BOTTLE TP SCH ×2 (08:06→20:06)
[2019-06-28] MEDS: ACIDOPHILUS/BULGARICUS 1 EACH TAB.CHEW GT SCH ×2 (08:29→17:50)
[2019-06-28] MEDS: LEVETIRACETAM SOL (5 ML) 100 MG/ML UDC GT SCH ×2 (08:29→20:05)
[2019-06-28] MEDS: PROSTAT (PYXIS) 30 ML UDC GT SCH ×3 (08:29→17:50)
[2019-06-28] MEDS: MULTIVIT W/MINERALS 1 TAB TABLET GT SCH (08:29)
[2019-06-28] MEDS: CARBOXYMETHYLCELLULOSE SODIUM 0.4 ML DROPERETTE EACHEYE SCH (08:29)
[2019-06-28] MEDS: ACETAMINOPHEN 650 MG/20 ML UDC- SA PATIENTS-PAIN ONLY GT SCH ×2 (08:30→20:09)
[2019-06-28] MEDS: ASCORBIC ACID 500 MG TABLET GT SCH (08:30)
[2019-06-28] MEDS: ZINC SULFATE 220 MG CAPSULE GT SCH (08:30)
[2019-06-28] MEDS: CHLORHEXIDINE GLUCONATE 15 ML UDC MM SCH ×2 (08:30→20:05)
--- NOTE | 2019-06-28 08:47 | NUR ---
PT RCVD TRACH'D ON COOL AEROSOL WITH CHARTED SETTINGS. PT NOLVIA TX WELL. SX DONE. PT TRACH IS PATENT AND SECURE. AMBU BAG AT BEDSIDE. NO SOB NOTED. Addendum: 06/28/19 at 0847 by ALEXEY MADRID RT Amended: Links added.
[2019-06-28] MEDS: COD LIVER OIL/ZINC OXIDE 120 GM TUBE TP SCH ×2 (09:00→20:05)
[2019-06-28 12:14] VITALS: BP 127/69
--- NOTE | 2019-06-28 19:33 | NUR ---
Educated family at bedside how to clean G-tube stoma to prevent from infection and to keep it dry, educated the family member to elevate the head of the bed before giving the medication to prevent aspiration and how to give medication via G-tube via gravity, and educated family member how to offload the area of bony prominence area to prevent pressure sore
[2019-06-28 20:10] VITALS: BP 120/64
--- NOTE | 2019-06-28 20:42 | NUR ---
NOTIFIED [facility]HEL[facility] OF NEW POLICY REGARDING NO VISITORS TILL FURTHER NOTICE, FAMILY MEMBERS VERBALIZED UNDERSTANDING.
[2019-06-28 22:00] VITALS: BP 120/64
[2019-06-29] MEDS: ALBUTEROL FS 2.5 MG/3 ML VIAL.NEB NEB SCH ×4 (00:52→19:05)
[2019-06-29] MEDS: IPRATROPIUM NEB FS 0.5 MG/2.5 ML AMPUL.NEB IH SCH ×4 (00:52→19:05)
[2019-06-29] MEDS: GLUCERNA 1.2 1,000 ML BOTTLE GT SCH ×6 (04:00→20:31)
[2019-06-29] MEDS: LEVOTHYROXINE SODIUM 88 MCG TABLET GT SCH (05:00)
[2019-06-29] MEDS: METOCLOPRAMIDE HCL 10 MG/10 ML UDC GT SCH ×4 (05:00→23:56)
[2019-06-29] MEDS: OMEPRAZOLE 20 MG CAPSULE.DR GT SCH (05:00)
[2019-06-29 07:34] VITALS: BP 127/72
[2019-06-29] MEDS: HYDROGEN PEROXIDE 480 ML BOTTLE TP SCH ×2 (09:07→20:08)
[2019-06-29] MEDS: CARBOXYMETHYLCELLULOSE SODIUM 0.4 ML DROPERETTE EACHEYE SCH (09:15)
[2019-06-29] MEDS: MULTIVIT W/MINERALS 1 TAB TABLET GT SCH (09:16)
[2019-06-29] MEDS: PROSTAT (PYXIS) 30 ML UDC GT SCH ×3 (09:16→16:58)
[2019-06-29] MEDS: CHLORHEXIDINE GLUCONATE 15 ML UDC MM SCH ×2 (09:16→20:05)
[2019-06-29] MEDS: ASCORBIC ACID 500 MG TABLET GT SCH (09:16)
[2019-06-29] MEDS: ACIDOPHILUS/BULGARICUS 1 EACH TAB.CHEW GT SCH ×2 (09:16→16:58)
[2019-06-29] MEDS: LEVETIRACETAM SOL (5 ML) 100 MG/ML UDC GT SCH ×2 (09:16→20:02)
[2019-06-29] MEDS: ZINC SULFATE 220 MG CAPSULE GT SCH (09:16)
[2019-06-29] MEDS: ACETAMINOPHEN 650 MG/20 ML UDC- SA PATIENTS-PAIN ONLY GT SCH ×2 (09:16→20:05)
[2019-06-29] MEDS: COD LIVER OIL/ZINC OXIDE 120 GM TUBE TP SCH ×2 (10:16→20:06)
[2019-06-29 12:00] VITALS: BP 119/63
[2019-06-29 18:50] VITALS: BP 108/59
[2019-06-29 20:36] VITALS: BP 108/55
[2019-06-29 22:00] VITALS: BP 108/55
[2019-06-30] MEDS: GLUCERNA 1.2 1,000 ML BOTTLE GT SCH ×6 (00:31→20:17)
[2019-06-30] MEDS: ALBUTEROL FS 2.5 MG/3 ML VIAL.NEB NEB SCH ×4 (00:37→19:45)
[2019-06-30] MEDS: IPRATROPIUM NEB FS 0.5 MG/2.5 ML AMPUL.NEB IH SCH ×4 (00:37→19:45)
[2019-06-30] MEDS: OMEPRAZOLE 20 MG CAPSULE.DR GT SCH (05:24)
[2019-06-30] MEDS: METOCLOPRAMIDE HCL 10 MG/10 ML UDC GT SCH ×4 (05:24→23:22)
[2019-06-30] MEDS: LEVOTHYROXINE SODIUM 88 MCG TABLET GT SCH (05:24)
[2019-06-30 07:51] VITALS: BP 98/55
[2019-06-30] MEDS: CARBOXYMETHYLCELLULOSE SODIUM 0.4 ML DROPERETTE EACHEYE SCH (08:08)
[2019-06-30] MEDS: LEVETIRACETAM SOL (5 ML) 100 MG/ML UDC GT SCH ×2 (08:08→20:18)
[2019-06-30] MEDS: ACIDOPHILUS/BULGARICUS 1 EACH TAB.CHEW GT SCH ×2 (08:08→16:22)
[2019-06-30] MEDS: PROSTAT (PYXIS) 30 ML UDC GT SCH ×3 (08:09→16:22)
[2019-06-30] MEDS: MULTIVIT W/MINERALS 1 TAB TABLET GT SCH (08:09)
[2019-06-30] MEDS: ZINC SULFATE 220 MG CAPSULE GT SCH (08:10)
[2019-06-30] MEDS: CHLORHEXIDINE GLUCONATE 15 ML UDC MM SCH ×2 (08:10→20:18)
[2019-06-30] MEDS: ASCORBIC ACID 500 MG TABLET GT SCH (08:10)
[2019-06-30] MEDS: ACETAMINOPHEN 650 MG/20 ML UDC- SA PATIENTS-PAIN ONLY GT SCH ×2 (08:10→20:18)
[2019-06-30] MEDS: HYDROGEN PEROXIDE 480 ML BOTTLE TP SCH ×2 (09:00→21:07)
[2019-06-30] MEDS: COD LIVER OIL/ZINC OXIDE 120 GM TUBE TP SCH ×2 (09:10→20:18)
[2019-06-30 11:23] VITALS: BP 112/56
[2019-06-30 19:43] VITALS: BP 122/67
[2019-06-30 22:00] VITALS: BP 122/67
[2019-07-01] MEDS: GLUCERNA 1.2 1,000 ML BOTTLE GT SCH ×6 (01:00→20:31)
[2019-07-01] MEDS: ALBUTEROL FS 2.5 MG/3 ML VIAL.NEB NEB SCH ×4 (01:29→19:24)
[2019-07-01] MEDS: IPRATROPIUM NEB FS 0.5 MG/2.5 ML AMPUL.NEB IH SCH ×4 (01:29→19:24)
[2019-07-01] MEDS: METOCLOPRAMIDE HCL 10 MG/10 ML UDC GT SCH ×4 (05:01→23:30)
[2019-07-01] MEDS: OMEPRAZOLE 20 MG CAPSULE.DR GT SCH (05:01)
[2019-07-01] MEDS: LEVOTHYROXINE SODIUM 88 MCG TABLET GT SCH (05:01)
[2019-07-01 07:31] VITALS: BP 121/78
[2019-07-01] MEDS: CHLORHEXIDINE GLUCONATE 15 ML UDC MM SCH ×2 (09:00→20:33)
[2019-07-01] MEDS: ZINC SULFATE 220 MG CAPSULE GT SCH (09:00)
[2019-07-01] MEDS: HYDROGEN PEROXIDE 480 ML BOTTLE TP SCH ×2 (09:00→21:00)
[2019-07-01] MEDS: PROSTAT (PYXIS) 30 ML UDC GT SCH ×3 (09:00→17:52)
[2019-07-01] MEDS: MULTIVIT W/MINERALS 1 TAB TABLET GT SCH (09:00)
[2019-07-01] MEDS: ACIDOPHILUS/BULGARICUS 1 EACH TAB.CHEW GT SCH ×2 (09:00→17:52)
[2019-07-01] MEDS: CARBOXYMETHYLCELLULOSE SODIUM 0.4 ML DROPERETTE EACHEYE SCH (09:00)
[2019-07-01] MEDS: LEVETIRACETAM SOL (5 ML) 100 MG/ML UDC GT SCH ×2 (09:00→20:31)
[2019-07-01] MEDS: ASCORBIC ACID 500 MG TABLET GT SCH (09:00)
[2019-07-01] MEDS: ACETAMINOPHEN 650 MG/20 ML UDC- SA PATIENTS-PAIN ONLY GT SCH ×2 (10:00→20:33)
[2019-07-01] MEDS: COD LIVER OIL/ZINC OXIDE 120 GM TUBE TP SCH ×2 (10:30→21:44)
[2019-07-01 12:52] VITALS: BP 121/78
[2019-07-01 19:29] VITALS: BP 108/72
[2019-07-01 22:55] VITALS: BP 108/72
[2019-07-02] MEDS: GLUCERNA 1.2 1,000 ML BOTTLE GT SCH ×6 (00:36→20:33)
[2019-07-02] MEDS: ALBUTEROL FS 2.5 MG/3 ML VIAL.NEB NEB SCH ×4 (02:13→19:28)
[2019-07-02] MEDS: IPRATROPIUM NEB FS 0.5 MG/2.5 ML AMPUL.NEB IH SCH ×4 (02:13→19:28)
[2019-07-02] MEDS: LEVOTHYROXINE SODIUM 88 MCG TABLET GT SCH (05:02)
[2019-07-02] MEDS: OMEPRAZOLE 20 MG CAPSULE.DR GT SCH (05:02)
[2019-07-02] MEDS: METOCLOPRAMIDE HCL 10 MG/10 ML UDC GT SCH ×4 (05:02→23:32)
[2019-07-02 07:29] VITALS: BP 104/56
[2019-07-02] MEDS: HYDROGEN PEROXIDE 480 ML BOTTLE TP SCH ×2 (09:15→21:00)
[2019-07-02] MEDS: COD LIVER OIL/ZINC OXIDE 120 GM TUBE TP SCH ×2 (09:55→20:34)
[2019-07-02] MEDS: ACIDOPHILUS/BULGARICUS 1 EACH TAB.CHEW GT SCH ×2 (09:57→17:11)
[2019-07-02] MEDS: CARBOXYMETHYLCELLULOSE SODIUM 0.4 ML DROPERETTE EACHEYE SCH (09:57)
[2019-07-02] MEDS: LEVETIRACETAM SOL (5 ML) 100 MG/ML UDC GT SCH ×2 (09:57→20:33)
[2019-07-02] MEDS: CHLORHEXIDINE GLUCONATE 15 ML UDC MM SCH ×2 (09:58→20:33)
[2019-07-02] MEDS: ZINC SULFATE 220 MG CAPSULE GT SCH (09:58)
[2019-07-02] MEDS: MULTIVIT W/MINERALS 1 TAB TABLET GT SCH (09:58)
[2019-07-02] MEDS: PROSTAT (PYXIS) 30 ML UDC GT SCH ×3 (09:58→17:11)
[2019-07-02] MEDS: ACETAMINOPHEN 650 MG/20 ML UDC- SA PATIENTS-PAIN ONLY GT SCH ×2 (09:58→20:33)
[2019-07-02] MEDS: ASCORBIC ACID 500 MG TABLET GT SCH (09:58)
[2019-07-02 10:00] VITALS: BP 110/62
[2019-07-02 20:26] VITALS: BP 106/76
[2019-07-02 22:54] VITALS: BP 112/66
[2019-07-03] MEDS: GLUCERNA 1.2 1,000 ML BOTTLE GT SCH ×6 (01:00→20:16)
[2019-07-03] MEDS: IPRATROPIUM NEB FS 0.5 MG/2.5 ML AMPUL.NEB IH SCH ×4 (01:56→19:27)
[2019-07-03] MEDS: ALBUTEROL FS 2.5 MG/3 ML VIAL.NEB NEB SCH ×4 (01:56→19:27)
[2019-07-03] MEDS: METOCLOPRAMIDE HCL 10 MG/10 ML UDC GT SCH ×4 (05:20→23:18)
[2019-07-03] MEDS: LEVOTHYROXINE SODIUM 88 MCG TABLET GT SCH (05:20)
[2019-07-03] MEDS: OMEPRAZOLE 20 MG CAPSULE.DR GT SCH (05:20)
[2019-07-03 07:39] VITALS: BP 116/75
[2019-07-03] MEDS: COD LIVER OIL/ZINC OXIDE 120 GM TUBE TP SCH ×2 (09:00→20:21)
[2019-07-03] MEDS: ACIDOPHILUS/BULGARICUS 1 EACH TAB.CHEW GT SCH ×2 (09:00→17:00)
[2019-07-03] MEDS: PROSTAT (PYXIS) 30 ML UDC GT SCH ×3 (09:00→17:00)
[2019-07-03] MEDS: ASCORBIC ACID 500 MG TABLET GT SCH (09:00)
[2019-07-03] MEDS: CHLORHEXIDINE GLUCONATE 15 ML UDC MM SCH ×2 (09:00→20:21)
[2019-07-03] MEDS: MULTIVIT W/MINERALS 1 TAB TABLET GT SCH (09:00)
[2019-07-03] MEDS: LEVETIRACETAM SOL (5 ML) 100 MG/ML UDC GT SCH ×2 (09:00→20:16)
[2019-07-03] MEDS: CARBOXYMETHYLCELLULOSE SODIUM 0.4 ML DROPERETTE EACHEYE SCH (09:00)
[2019-07-03] MEDS: HYDROGEN PEROXIDE 480 ML BOTTLE TP SCH ×2 (09:00→19:28)
[2019-07-03] MEDS: ACETAMINOPHEN 650 MG/20 ML UDC- SA PATIENTS-PAIN ONLY GT SCH ×2 (09:00→20:17)
[2019-07-03] MEDS: ZINC SULFATE 220 MG CAPSULE GT SCH (09:00)
[2019-07-03 15:30] VITALS: BP 116/75
[2019-07-03 19:57] VITALS: BP 125/64
[2019-07-03 22:43] VITALS: BP 125/64
[2019-07-04] MEDS: GLUCERNA 1.2 1,000 ML BOTTLE GT SCH ×6 (00:34→21:35)
[2019-07-04] MEDS: IPRATROPIUM NEB FS 0.5 MG/2.5 ML AMPUL.NEB IH SCH ×4 (01:19→20:00)
[2019-07-04] MEDS: ALBUTEROL FS 2.5 MG/3 ML VIAL.NEB NEB SCH ×4 (01:19→20:00)
[2019-07-04] MEDS: METOCLOPRAMIDE HCL 10 MG/10 ML UDC GT SCH ×3 (05:15→17:58)
[2019-07-04] MEDS: OMEPRAZOLE 20 MG CAPSULE.DR GT SCH (05:15)
[2019-07-04] MEDS: LEVOTHYROXINE SODIUM 88 MCG TABLET GT SCH (05:15)
[2019-07-04 07:32] VITALS: BP 128/66
[2019-07-04] MEDS: HYDROGEN PEROXIDE 480 ML BOTTLE TP SCH ×2 (08:04→21:00)
[2019-07-04] MEDS: COD LIVER OIL/ZINC OXIDE 120 GM TUBE TP SCH ×2 (09:00→20:06)
[2019-07-04] MEDS: PROSTAT (PYXIS) 30 ML UDC GT SCH ×3 (09:35→17:12)
[2019-07-04] MEDS: LEVETIRACETAM SOL (5 ML) 100 MG/ML UDC GT SCH ×2 (09:35→20:05)
[2019-07-04] MEDS: ACETAMINOPHEN 650 MG/20 ML UDC- SA PATIENTS-PAIN ONLY GT SCH ×2 (09:35→20:06)
[2019-07-04] MEDS: CARBOXYMETHYLCELLULOSE SODIUM 0.4 ML DROPERETTE EACHEYE SCH (09:35)
[2019-07-04] MEDS: CHLORHEXIDINE GLUCONATE 15 ML UDC MM SCH ×2 (09:35→20:06)
[2019-07-04] MEDS: MULTIVIT W/MINERALS 1 TAB TABLET GT SCH (09:35)
[2019-07-04] MEDS: ZINC SULFATE 220 MG CAPSULE GT SCH (09:35)
[2019-07-04] MEDS: ACIDOPHILUS/BULGARICUS 1 EACH TAB.CHEW GT SCH ×2 (09:35→17:12)
[2019-07-04] MEDS: ASCORBIC ACID 500 MG TABLET GT SCH (09:35)
[2019-07-04 16:03] VITALS: BP 128/66
[2019-07-04 20:12] VITALS: BP 112/55
[2019-07-04 22:11] VITALS: BP 112/55
[2019-07-05] MEDS: METOCLOPRAMIDE HCL 10 MG/10 ML UDC GT SCH ×5 (00:27→23:53)
[2019-07-05] MEDS: ALBUTEROL FS 2.5 MG/3 ML VIAL.NEB NEB SCH ×4 (00:54→20:15)
[2019-07-05] MEDS: IPRATROPIUM NEB FS 0.5 MG/2.5 ML AMPUL.NEB IH SCH ×4 (00:54→20:15)
[2019-07-05] MEDS: GLUCERNA 1.2 1,000 ML BOTTLE GT SCH ×6 (01:05→20:21)
[2019-07-05] MEDS: OMEPRAZOLE 20 MG CAPSULE.DR GT SCH (05:01)
[2019-07-05] MEDS: LEVOTHYROXINE SODIUM 88 MCG TABLET GT SCH (05:01)
[2019-07-05 07:14] VITALS: BP 115/52
[2019-07-05] MEDS: HYDROGEN PEROXIDE 480 ML BOTTLE TP SCH ×2 (08:38→20:22)
[2019-07-05] MEDS: MULTIVIT W/MINERALS 1 TAB TABLET GT SCH (09:51)
[2019-07-05] MEDS: ACETAMINOPHEN 650 MG/20 ML UDC- SA PATIENTS-PAIN ONLY GT SCH ×2 (09:51→20:22)
[2019-07-05] MEDS: PROSTAT (PYXIS) 30 ML UDC GT SCH ×3 (09:51→16:44)
[2019-07-05] MEDS: ASCORBIC ACID 500 MG TABLET GT SCH (09:51)
[2019-07-05] MEDS: ZINC SULFATE 220 MG CAPSULE GT SCH (09:51)
[2019-07-05] MEDS: CHLORHEXIDINE GLUCONATE 15 ML UDC MM SCH ×2 (09:51→20:22)
[2019-07-05] MEDS: LEVETIRACETAM SOL (5 ML) 100 MG/ML UDC GT SCH ×2 (09:51→20:22)
[2019-07-05] MEDS: COD LIVER OIL/ZINC OXIDE 120 GM TUBE TP SCH ×2 (09:51→20:22)
[2019-07-05] MEDS: ACIDOPHILUS/BULGARICUS 1 EACH TAB.CHEW GT SCH ×2 (09:51→16:44)
[2019-07-05] MEDS: CARBOXYMETHYLCELLULOSE SODIUM 0.4 ML DROPERETTE EACHEYE SCH (09:51)
[2019-07-05 16:03] VITALS: BP 115/52
--- NOTE | 2019-07-05 20:25 | NUR ---
RECEIVED TRACH PATIENT ON COOL AEROSOL. Q6 BREATHING TREATMENT GIVEN AT THIS TIME WITH NO ADVERSE REACTION. TRACH CARE DONE. TRACH IS PATENT AND SECURED. SX DONE PRN. NO RESP DISTRESS NOTED AT THIS TIME. WILL CONT TO MONITOR PT T/O SHIFT.
[2019-07-05 21:11] VITALS: BP 139/83
[2019-07-05 22:10] VITALS: BP 139/83
[2019-07-06] MEDS: IPRATROPIUM NEB FS 0.5 MG/2.5 ML AMPUL.NEB IH SCH ×4 (00:44→20:07)
[2019-07-06] MEDS: ALBUTEROL FS 2.5 MG/3 ML VIAL.NEB NEB SCH ×4 (00:44→20:07)
[2019-07-06] MEDS: GLUCERNA 1.2 1,000 ML BOTTLE GT SCH ×6 (01:33→21:15)
[2019-07-06] MEDS: METOCLOPRAMIDE HCL 10 MG/10 ML UDC GT SCH ×3 (05:28→17:00)
[2019-07-06] MEDS: OMEPRAZOLE 20 MG CAPSULE.DR GT SCH (05:28)
[2019-07-06] MEDS: LEVOTHYROXINE SODIUM 88 MCG TABLET GT SCH (05:28)
[2019-07-06 07:35] VITALS: BP 132/71
[2019-07-06] MEDS: HYDROGEN PEROXIDE 480 ML BOTTLE TP SCH ×2 (08:37→20:07)
[2019-07-06] MEDS: LEVETIRACETAM SOL (5 ML) 100 MG/ML UDC GT SCH ×2 (09:22→21:15)
[2019-07-06] MEDS: CARBOXYMETHYLCELLULOSE SODIUM 0.4 ML DROPERETTE EACHEYE SCH (09:22)
[2019-07-06] MEDS: MULTIVIT W/MINERALS 1 TAB TABLET GT SCH (09:23)
[2019-07-06] MEDS: PROSTAT (PYXIS) 30 ML UDC GT SCH ×3 (09:23→16:57)
[2019-07-06] MEDS: ACIDOPHILUS/BULGARICUS 1 EACH TAB.CHEW GT SCH ×2 (09:23→16:57)
[2019-07-06] MEDS: CHLORHEXIDINE GLUCONATE 15 ML UDC MM SCH ×2 (09:24→21:15)
[2019-07-06] MEDS: ZINC SULFATE 220 MG CAPSULE GT SCH (09:24)
[2019-07-06] MEDS: ASCORBIC ACID 500 MG TABLET GT SCH (09:24)
[2019-07-06] MEDS: ACETAMINOPHEN 650 MG/20 ML UDC- SA PATIENTS-PAIN ONLY GT SCH ×2 (09:24→21:15)
[2019-07-06] MEDS: COD LIVER OIL/ZINC OXIDE 120 GM TUBE TP SCH ×2 (10:24→21:15)
[2019-07-06 13:00] VITALS: BP 132/76
[2019-07-06 20:54] VITALS: BP 111/57
[2019-07-06 22:00] VITALS: BP 111/57
[2019-07-07] MEDS: METOCLOPRAMIDE HCL 10 MG/10 ML UDC GT SCH ×5 (00:05→23:36)
[2019-07-07] MEDS: GLUCERNA 1.2 1,000 ML BOTTLE GT SCH ×6 (01:00→20:25)
[2019-07-07] MEDS: IPRATROPIUM NEB FS 0.5 MG/2.5 ML AMPUL.NEB IH SCH ×4 (01:17→20:08)
[2019-07-07] MEDS: ALBUTEROL FS 2.5 MG/3 ML VIAL.NEB NEB SCH ×4 (01:17→20:08)
[2019-07-07] MEDS: OMEPRAZOLE 20 MG CAPSULE.DR GT SCH (05:22)
[2019-07-07] MEDS: LEVOTHYROXINE SODIUM 88 MCG TABLET GT SCH (05:22)
[2019-07-07 07:36] VITALS: BP 122/67
[2019-07-07] MEDS: ACIDOPHILUS/BULGARICUS 1 EACH TAB.CHEW GT SCH ×2 (08:10→17:02)
[2019-07-07] MEDS: MULTIVIT W/MINERALS 1 TAB TABLET GT SCH (08:10)
[2019-07-07] MEDS: CARBOXYMETHYLCELLULOSE SODIUM 0.4 ML DROPERETTE EACHEYE SCH (08:10)
[2019-07-07] MEDS: LEVETIRACETAM SOL (5 ML) 100 MG/ML UDC GT SCH ×2 (08:10→20:25)
[2019-07-07] MEDS: PROSTAT (PYXIS) 30 ML UDC GT SCH ×3 (08:10→17:02)
[2019-07-07] MEDS: ZINC SULFATE 220 MG CAPSULE GT SCH (08:11)
[2019-07-07] MEDS: ACETAMINOPHEN 650 MG/20 ML UDC- SA PATIENTS-PAIN ONLY GT SCH ×2 (08:11→20:26)
[2019-07-07] MEDS: CHLORHEXIDINE GLUCONATE 15 ML UDC MM SCH ×2 (08:11→20:26)
[2019-07-07] MEDS: ASCORBIC ACID 500 MG TABLET GT SCH (08:11)
[2019-07-07] MEDS: HYDROGEN PEROXIDE 480 ML BOTTLE TP SCH ×2 (08:23→21:46)
[2019-07-07] MEDS: COD LIVER OIL/ZINC OXIDE 120 GM TUBE TP SCH ×2 (09:11→20:26)
[2019-07-07 13:02] VITALS: BP 122/67
[2019-07-07 19:57] VITALS: BP 128/77
[2019-07-07 22:00] VITALS: BP 128/77
--- NOTE | 2019-07-07 22:18 | NUR ---
PT RECEIVE STABLE ON CA 28% FIO2, TRACH PATENT AND SECURED, AMBU BAG AND SPARE TRACH IS AT BEDSIDE, WILL CONTINUE TO MONITOR Addendum: 07/07/19 at 2218 by ABIEL DERAS RT Amended: Links added.
[2019-07-08] MEDS: GLUCERNA 1.2 1,000 ML BOTTLE GT SCH ×6 (01:00→20:27)
[2019-07-08] MEDS: ALBUTEROL FS 2.5 MG/3 ML VIAL.NEB NEB SCH ×4 (01:55→20:24)
[2019-07-08] MEDS: IPRATROPIUM NEB FS 0.5 MG/2.5 ML AMPUL.NEB IH SCH ×4 (01:55→20:24)
[2019-07-08] MEDS: METOCLOPRAMIDE HCL 10 MG/10 ML UDC GT SCH ×4 (05:04→23:57)
[2019-07-08] MEDS: LEVOTHYROXINE SODIUM 88 MCG TABLET GT SCH (05:04)
[2019-07-08] MEDS: OMEPRAZOLE 20 MG CAPSULE.DR GT SCH (05:04)
[2019-07-08 07:45] VITALS: BP 129/61
[2019-07-08] MEDS: LEVETIRACETAM SOL (5 ML) 100 MG/ML UDC GT SCH ×2 (08:33→20:27)
[2019-07-08] MEDS: CARBOXYMETHYLCELLULOSE SODIUM 0.4 ML DROPERETTE EACHEYE SCH (08:33)
[2019-07-08] MEDS: ZINC SULFATE 220 MG CAPSULE GT SCH (08:35)
[2019-07-08] MEDS: CHLORHEXIDINE GLUCONATE 15 ML UDC MM SCH ×2 (08:35→20:35)
[2019-07-08] MEDS: MULTIVIT W/MINERALS 1 TAB TABLET GT SCH (08:35)
[2019-07-08] MEDS: COD LIVER OIL/ZINC OXIDE 120 GM TUBE TP SCH ×2 (08:35→20:35)
[2019-07-08] MEDS: ACETAMINOPHEN 650 MG/20 ML UDC- SA PATIENTS-PAIN ONLY GT SCH ×2 (08:35→20:33)
[2019-07-08] MEDS: ASCORBIC ACID 500 MG TABLET GT SCH (08:35)
[2019-07-08] MEDS: ACIDOPHILUS/BULGARICUS 1 EACH TAB.CHEW GT SCH ×2 (08:35→16:08)
[2019-07-08] MEDS: PROSTAT (PYXIS) 30 ML UDC GT SCH ×3 (08:35→16:08)
[2019-07-08] MEDS: HYDROGEN PEROXIDE 480 ML BOTTLE TP SCH ×2 (09:59→21:21)
[2019-07-08 12:00] VITALS: BP 127/68
[2019-07-08 18:24] VITALS: BP 118/62
[2019-07-08 19:45] VITALS: BP 134/75
[2019-07-08 23:28] VITALS: BP 134/75
[2019-07-09] MEDS: GLUCERNA 1.2 1,000 ML BOTTLE GT SCH ×6 (01:23→20:16)
[2019-07-09] MEDS: IPRATROPIUM NEB FS 0.5 MG/2.5 ML AMPUL.NEB IH SCH ×4 (01:48→19:37)
[2019-07-09] MEDS: ALBUTEROL FS 2.5 MG/3 ML VIAL.NEB NEB SCH ×4 (01:48→19:37)
[2019-07-09] MEDS: LEVOTHYROXINE SODIUM 88 MCG TABLET GT SCH (05:02)
[2019-07-09] MEDS: OMEPRAZOLE 20 MG CAPSULE.DR GT SCH (05:02)
[2019-07-09] MEDS: METOCLOPRAMIDE HCL 10 MG/10 ML UDC GT SCH ×4 (05:02→23:40)
[2019-07-09 07:38] VITALS: BP 133/60
[2019-07-09] MEDS: HYDROGEN PEROXIDE 480 ML BOTTLE TP SCH ×2 (08:24→21:33)
[2019-07-09] MEDS: CARBOXYMETHYLCELLULOSE SODIUM 0.4 ML DROPERETTE EACHEYE SCH (09:46)
[2019-07-09] MEDS: ACIDOPHILUS/BULGARICUS 1 EACH TAB.CHEW GT SCH ×2 (09:47→16:58)
[2019-07-09] MEDS: MULTIVIT W/MINERALS 1 TAB TABLET GT SCH (09:47)
[2019-07-09] MEDS: PROSTAT (PYXIS) 30 ML UDC GT SCH ×3 (09:47→16:58)
[2019-07-09] MEDS: LEVETIRACETAM SOL (5 ML) 100 MG/ML UDC GT SCH ×2 (09:47→20:16)
[2019-07-09] MEDS: COD LIVER OIL/ZINC OXIDE 120 GM TUBE TP SCH ×2 (09:48→20:17)
[2019-07-09] MEDS: ACETAMINOPHEN 650 MG/20 ML UDC- SA PATIENTS-PAIN ONLY GT SCH ×2 (09:48→20:16)
[2019-07-09] MEDS: ZINC SULFATE 220 MG CAPSULE GT SCH (09:48)
[2019-07-09] MEDS: ASCORBIC ACID 500 MG TABLET GT SCH (09:48)
[2019-07-09] MEDS: CHLORHEXIDINE GLUCONATE 15 ML UDC MM SCH ×2 (09:48→20:17)
[2019-07-09 14:38] VITALS: BP 108/60
[2019-07-09 20:00] VITALS: BP 137/77
[2019-07-10] MEDS: GLUCERNA 1.2 1,000 ML BOTTLE GT SCH ×6 (00:31→20:08)
[2019-07-10] MEDS: IPRATROPIUM NEB FS 0.5 MG/2.5 ML AMPUL.NEB IH SCH ×4 (00:36→19:45)
[2019-07-10] MEDS: ALBUTEROL FS 2.5 MG/3 ML VIAL.NEB NEB SCH ×4 (00:36→19:45)
[2019-07-10 00:45] VITALS: BP 122/70
[2019-07-10] MEDS: LEVOTHYROXINE SODIUM 88 MCG TABLET GT SCH (05:03)
[2019-07-10] MEDS: OMEPRAZOLE 20 MG CAPSULE.DR GT SCH (05:03)
[2019-07-10] MEDS: METOCLOPRAMIDE HCL 10 MG/10 ML UDC GT SCH ×4 (05:03→23:29)
[2019-07-10] MEDS: HYDROGEN PEROXIDE 480 ML BOTTLE TP SCH ×2 (07:40→19:45)
[2019-07-10 07:43] VITALS: BP 128/66
[2019-07-10] MEDS: ZINC SULFATE 220 MG CAPSULE GT SCH (09:00)
[2019-07-10] MEDS: MULTIVIT W/MINERALS 1 TAB TABLET GT SCH (09:00)
[2019-07-10] MEDS: ACETAMINOPHEN 650 MG/20 ML UDC- SA PATIENTS-PAIN ONLY GT SCH ×2 (09:00→20:09)
[2019-07-10] MEDS: COD LIVER OIL/ZINC OXIDE 120 GM TUBE TP SCH ×2 (09:00→20:09)
[2019-07-10] MEDS: LEVETIRACETAM SOL (5 ML) 100 MG/ML UDC GT SCH ×2 (09:00→20:08)
[2019-07-10] MEDS: CARBOXYMETHYLCELLULOSE SODIUM 0.4 ML DROPERETTE EACHEYE SCH (09:00)
[2019-07-10] MEDS: ACIDOPHILUS/BULGARICUS 1 EACH TAB.CHEW GT SCH ×2 (09:00→17:22)
[2019-07-10] MEDS: CHLORHEXIDINE GLUCONATE 15 ML UDC MM SCH ×2 (09:00→20:09)
[2019-07-10] MEDS: PROSTAT (PYXIS) 30 ML UDC GT SCH ×3 (09:00→17:22)
[2019-07-10] MEDS: ASCORBIC ACID 500 MG TABLET GT SCH (09:00)
--- NOTE | 2019-07-10 11:57 | NUR ---
Family/Patient interaction:This SW emailed the patient's daughter/DPOA, Reyna Brii at [email or web address] to inform her that video chat is an alternative option for families to see their patient due to Covid-19 visitation restrictions. Reyna to let this SW know her availability for video chatting with the patient.
[2019-07-10 15:03] VITALS: BP 128/66
[2019-07-10 19:47] VITALS: BP 135/71
[2019-07-10 22:08] VITALS: BP 135/71
[2019-07-11] MEDS: GLUCERNA 1.2 1,000 ML BOTTLE GT SCH ×6 (00:45→20:31)
[2019-07-11] MEDS: IPRATROPIUM NEB FS 0.5 MG/2.5 ML AMPUL.NEB IH SCH ×4 (01:56→20:16)
[2019-07-11] MEDS: ALBUTEROL FS 2.5 MG/3 ML VIAL.NEB NEB SCH ×4 (01:56→20:16)
[2019-07-11] MEDS: OMEPRAZOLE 20 MG CAPSULE.DR GT SCH (05:15)
[2019-07-11] MEDS: METOCLOPRAMIDE HCL 10 MG/10 ML UDC GT SCH ×4 (05:15→23:34)
[2019-07-11] MEDS: LEVOTHYROXINE SODIUM 88 MCG TABLET GT SCH (05:15)
[2019-07-11 07:43] VITALS: BP 102/59
[2019-07-11] MEDS: LEVETIRACETAM SOL (5 ML) 100 MG/ML UDC GT SCH ×2 (08:17→20:31)
[2019-07-11] MEDS: CARBOXYMETHYLCELLULOSE SODIUM 0.4 ML DROPERETTE EACHEYE SCH (08:17)
[2019-07-11] MEDS: MULTIVIT W/MINERALS 1 TAB TABLET GT SCH (08:17)
[2019-07-11] MEDS: ACIDOPHILUS/BULGARICUS 1 EACH TAB.CHEW GT SCH ×2 (08:17→16:03)
[2019-07-11] MEDS: PROSTAT (PYXIS) 30 ML UDC GT SCH ×3 (08:17→16:03)
[2019-07-11] MEDS: ASCORBIC ACID 500 MG TABLET GT SCH (08:18)
[2019-07-11] MEDS: ACETAMINOPHEN 650 MG/20 ML UDC- SA PATIENTS-PAIN ONLY GT SCH ×2 (08:18→20:32)
[2019-07-11] MEDS: ZINC SULFATE 220 MG CAPSULE GT SCH (08:18)
[2019-07-11] MEDS: CHLORHEXIDINE GLUCONATE 15 ML UDC MM SCH ×2 (08:18→20:32)
[2019-07-11] MEDS: COD LIVER OIL/ZINC OXIDE 120 GM TUBE TP SCH ×2 (09:00→20:32)
[2019-07-11] MEDS: HYDROGEN PEROXIDE 480 ML BOTTLE TP SCH ×2 (10:10→21:11)
[2019-07-11 14:44] VITALS: BP 102/59
[2019-07-11 19:55] VITALS: BP 124/68
[2019-07-11 23:02] VITALS: BP 129/68
[2019-07-12] MEDS: GLUCERNA 1.2 1,000 ML BOTTLE GT SCH ×6 (01:32→20:07)
[2019-07-12] MEDS: IPRATROPIUM NEB FS 0.5 MG/2.5 ML AMPUL.NEB IH SCH ×4 (01:33→20:24)
[2019-07-12] MEDS: ALBUTEROL FS 2.5 MG/3 ML VIAL.NEB NEB SCH ×4 (01:33→20:24)
[2019-07-12] MEDS: LEVOTHYROXINE SODIUM 88 MCG TABLET GT SCH (05:31)
[2019-07-12] MEDS: OMEPRAZOLE 20 MG CAPSULE.DR GT SCH (05:31)
[2019-07-12] MEDS: METOCLOPRAMIDE HCL 10 MG/10 ML UDC GT SCH ×4 (05:31→23:56)
[2019-07-12 07:24] VITALS: BP 120/60
[2019-07-12] MEDS: HYDROGEN PEROXIDE 480 ML BOTTLE TP SCH ×2 (08:01→21:46)
[2019-07-12] MEDS: COD LIVER OIL/ZINC OXIDE 120 GM TUBE TP SCH ×2 (09:00→20:07)
[2019-07-12] MEDS: PROSTAT (PYXIS) 30 ML UDC GT SCH ×3 (09:24→16:56)
[2019-07-12] MEDS: LEVETIRACETAM SOL (5 ML) 100 MG/ML UDC GT SCH ×2 (09:24→20:07)
[2019-07-12] MEDS: CARBOXYMETHYLCELLULOSE SODIUM 0.4 ML DROPERETTE EACHEYE SCH (09:24)
[2019-07-12] MEDS: ACIDOPHILUS/BULGARICUS 1 EACH TAB.CHEW GT SCH ×2 (09:24→16:56)
[2019-07-12] MEDS: MULTIVIT W/MINERALS 1 TAB TABLET GT SCH (09:24)
[2019-07-12] MEDS: ZINC SULFATE 220 MG CAPSULE GT SCH (09:25)
[2019-07-12] MEDS: ACETAMINOPHEN 650 MG/20 ML UDC- SA PATIENTS-PAIN ONLY GT SCH ×2 (09:25→20:07)
[2019-07-12] MEDS: ASCORBIC ACID 500 MG TABLET GT SCH (09:25)
[2019-07-12] MEDS: CHLORHEXIDINE GLUCONATE 15 ML UDC MM SCH ×2 (09:25→20:07)
[2019-07-12 13:51] VITALS: BP 120/60
[2019-07-12 14:46] VITALS: BP 120/60
--- NOTE | 2019-07-12 17:00 | NUR ---
Seen and examined by Dr. Ross, no new order given.
[2019-07-12 19:47] VITALS: BP 120/70
[2019-07-12 22:09] VITALS: BP 122/66
[2019-07-13] MEDS: GLUCERNA 1.2 1,000 ML BOTTLE GT SCH ×6 (00:01→20:20)
[2019-07-13] MEDS: IPRATROPIUM NEB FS 0.5 MG/2.5 ML AMPUL.NEB IH SCH ×4 (01:31→19:29)
[2019-07-13] MEDS: ALBUTEROL FS 2.5 MG/3 ML VIAL.NEB NEB SCH ×4 (01:31→19:29)
[2019-07-13] MEDS: OMEPRAZOLE 20 MG CAPSULE.DR GT SCH (05:05)
[2019-07-13] MEDS: LEVOTHYROXINE SODIUM 88 MCG TABLET GT SCH (05:05)
[2019-07-13] MEDS: METOCLOPRAMIDE HCL 10 MG/10 ML UDC GT SCH ×4 (05:05→23:32)
[2019-07-13 07:36] VITALS: BP 117/73
[2019-07-13] MEDS: HYDROGEN PEROXIDE 480 ML BOTTLE TP SCH ×2 (08:59→21:00)
[2019-07-13] MEDS: PROSTAT (PYXIS) 30 ML UDC GT SCH ×3 (09:00→16:48)
[2019-07-13] MEDS: ACIDOPHILUS/BULGARICUS 1 EACH TAB.CHEW GT SCH ×2 (09:00→16:48)
[2019-07-13] MEDS: LEVETIRACETAM SOL (5 ML) 100 MG/ML UDC GT SCH ×2 (09:00→20:20)
[2019-07-13] MEDS: ZINC SULFATE 220 MG CAPSULE GT SCH (09:00)
[2019-07-13] MEDS: MULTIVIT W/MINERALS 1 TAB TABLET GT SCH (09:00)
[2019-07-13] MEDS: CARBOXYMETHYLCELLULOSE SODIUM 0.4 ML DROPERETTE EACHEYE SCH (09:00)
[2019-07-13] MEDS: COD LIVER OIL/ZINC OXIDE 120 GM TUBE TP SCH ×2 (09:00→20:21)
[2019-07-13] MEDS: CHLORHEXIDINE GLUCONATE 15 ML UDC MM SCH ×2 (09:00→20:21)
[2019-07-13] MEDS: ACETAMINOPHEN 650 MG/20 ML UDC- SA PATIENTS-PAIN ONLY GT SCH ×2 (09:00→20:21)
[2019-07-13] MEDS: ASCORBIC ACID 500 MG TABLET GT SCH (09:00)
[2019-07-13 10:00] VITALS: BP 120/70
[2019-07-13 20:55] VITALS: BP 110/84
[2019-07-13 22:20] VITALS: BP 112/60
[2019-07-14] MEDS: GLUCERNA 1.2 1,000 ML BOTTLE GT SCH ×6 (00:11→21:07)
[2019-07-14] MEDS: ALBUTEROL FS 2.5 MG/3 ML VIAL.NEB NEB SCH ×4 (01:36→19:25)
[2019-07-14] MEDS: IPRATROPIUM NEB FS 0.5 MG/2.5 ML AMPUL.NEB IH SCH ×4 (01:36→19:25)
[2019-07-14] MEDS: METOCLOPRAMIDE HCL 10 MG/10 ML UDC GT SCH ×4 (05:13→23:00)
[2019-07-14] MEDS: OMEPRAZOLE 20 MG CAPSULE.DR GT SCH (05:13)
[2019-07-14] MEDS: LEVOTHYROXINE SODIUM 88 MCG TABLET GT SCH (05:14)
[2019-07-14 07:45] VITALS: BP 124/54
[2019-07-14] MEDS: PROSTAT (PYXIS) 30 ML UDC GT SCH ×3 (09:00→16:57)
[2019-07-14] MEDS: ZINC SULFATE 220 MG CAPSULE GT SCH (09:00)
[2019-07-14] MEDS: ACETAMINOPHEN 650 MG/20 ML UDC- SA PATIENTS-PAIN ONLY GT SCH ×2 (09:00→21:07)
[2019-07-14] MEDS: MULTIVIT W/MINERALS 1 TAB TABLET GT SCH (09:00)
[2019-07-14] MEDS: COD LIVER OIL/ZINC OXIDE 120 GM TUBE TP SCH ×2 (09:00→21:07)
[2019-07-14] MEDS: ACIDOPHILUS/BULGARICUS 1 EACH TAB.CHEW GT SCH ×2 (09:00→16:57)
[2019-07-14] MEDS: CARBOXYMETHYLCELLULOSE SODIUM 0.4 ML DROPERETTE EACHEYE SCH (09:00)
[2019-07-14] MEDS: CHLORHEXIDINE GLUCONATE 15 ML UDC MM SCH ×2 (09:00→21:07)
[2019-07-14] MEDS: LEVETIRACETAM SOL (5 ML) 100 MG/ML UDC GT SCH ×2 (09:00→21:07)
[2019-07-14] MEDS: ASCORBIC ACID 500 MG TABLET GT SCH (09:00)
[2019-07-14] MEDS: HYDROGEN PEROXIDE 480 ML BOTTLE TP SCH ×2 (10:15→21:00)
[2019-07-14 11:23] VITALS: BP 115/68
[2019-07-14 20:00] VITALS: BP 111/70
[2019-07-14 20:24] VITALS: BP 111/70
[2019-07-14 22:20] VITALS: BP 111/70
[2019-07-15] MEDS: GLUCERNA 1.2 1,000 ML BOTTLE GT SCH ×6 (01:04→21:37)
[2019-07-15] MEDS: IPRATROPIUM NEB FS 0.5 MG/2.5 ML AMPUL.NEB IH SCH ×4 (02:07→19:35)
[2019-07-15] MEDS: ALBUTEROL FS 2.5 MG/3 ML VIAL.NEB NEB SCH ×4 (02:07→19:35)
[2019-07-15] MEDS: OMEPRAZOLE 20 MG CAPSULE.DR GT SCH (05:17)
[2019-07-15] MEDS: LEVOTHYROXINE SODIUM 88 MCG TABLET GT SCH (05:17)
[2019-07-15] MEDS: METOCLOPRAMIDE HCL 10 MG/10 ML UDC GT SCH ×3 (05:17→17:15)
[2019-07-15 07:59] VITALS: BP 115/71
[2019-07-15] MEDS: HYDROGEN PEROXIDE 480 ML BOTTLE TP SCH ×2 (09:00→21:00)
[2019-07-15] MEDS: ACIDOPHILUS/BULGARICUS 1 EACH TAB.CHEW GT SCH ×2 (09:43→17:15)
[2019-07-15] MEDS: MULTIVIT W/MINERALS 1 TAB TABLET GT SCH (09:43)
[2019-07-15] MEDS: LEVETIRACETAM SOL (5 ML) 100 MG/ML UDC GT SCH ×2 (09:43→20:06)
[2019-07-15] MEDS: PROSTAT (PYXIS) 30 ML UDC GT SCH ×3 (09:43→17:15)
[2019-07-15] MEDS: CARBOXYMETHYLCELLULOSE SODIUM 0.4 ML DROPERETTE EACHEYE SCH (09:43)
[2019-07-15] MEDS: CHLORHEXIDINE GLUCONATE 15 ML UDC MM SCH ×2 (09:44→20:09)
[2019-07-15] MEDS: ACETAMINOPHEN 650 MG/20 ML UDC- SA PATIENTS-PAIN ONLY GT SCH ×2 (09:44→20:09)
[2019-07-15] MEDS: COD LIVER OIL/ZINC OXIDE 120 GM TUBE TP SCH ×2 (09:44→20:09)
[2019-07-15] MEDS: ZINC SULFATE 220 MG CAPSULE GT SCH (09:44)
[2019-07-15] MEDS: ASCORBIC ACID 500 MG TABLET GT SCH (09:44)
[2019-07-15 12:01] VITALS: BP 118/69
[2019-07-15 20:25] VITALS: BP 126/65
[2019-07-15 22:23] VITALS: BP 126/65
[2019-07-16] MEDS: METOCLOPRAMIDE HCL 10 MG/10 ML UDC GT SCH ×4 (00:41→18:13)
[2019-07-16] MEDS: GLUCERNA 1.2 1,000 ML BOTTLE GT SCH ×6 (00:41→21:14)
[2019-07-16] MEDS: IPRATROPIUM NEB FS 0.5 MG/2.5 ML AMPUL.NEB IH SCH ×4 (01:52→20:13)
[2019-07-16] MEDS: ALBUTEROL FS 2.5 MG/3 ML VIAL.NEB NEB SCH ×4 (01:52→20:13)
[2019-07-16] MEDS: OMEPRAZOLE 20 MG CAPSULE.DR GT SCH (05:03)
[2019-07-16] MEDS: LEVOTHYROXINE SODIUM 88 MCG TABLET GT SCH (05:03)
[2019-07-16 07:51] VITALS: BP 121/73
[2019-07-16] MEDS: HYDROGEN PEROXIDE 480 ML BOTTLE TP SCH ×2 (08:27→21:00)
[2019-07-16] MEDS: CHLORHEXIDINE GLUCONATE 15 ML UDC MM SCH ×2 (09:00→20:01)
[2019-07-16] MEDS: ZINC SULFATE 220 MG CAPSULE GT SCH (09:00)
[2019-07-16] MEDS: ASCORBIC ACID 500 MG TABLET GT SCH (09:00)
[2019-07-16] MEDS: ACETAMINOPHEN 650 MG/20 ML UDC- SA PATIENTS-PAIN ONLY GT SCH ×2 (09:00→20:01)
[2019-07-16] MEDS: MULTIVIT W/MINERALS 1 TAB TABLET GT SCH (09:00)
[2019-07-16] MEDS: LEVETIRACETAM SOL (5 ML) 100 MG/ML UDC GT SCH ×2 (09:00→20:01)
[2019-07-16] MEDS: ACIDOPHILUS/BULGARICUS 1 EACH TAB.CHEW GT SCH ×2 (09:00→16:43)
[2019-07-16] MEDS: COD LIVER OIL/ZINC OXIDE 120 GM TUBE TP SCH ×2 (09:00→20:01)
[2019-07-16] MEDS: CARBOXYMETHYLCELLULOSE SODIUM 0.4 ML DROPERETTE EACHEYE SCH (09:00)
[2019-07-16] MEDS: PROSTAT (PYXIS) 30 ML UDC GT SCH ×3 (09:00→16:43)
[2019-07-16 11:55] VITALS: BP 114/69
[2019-07-16 20:29] VITALS: BP 109/70
[2019-07-16 22:09] VITALS: BP 109/70
[2019-07-17] MEDS: METOCLOPRAMIDE HCL 10 MG/10 ML UDC GT SCH ×5 (00:26→23:38)
[2019-07-17] MEDS: GLUCERNA 1.2 1,000 ML BOTTLE GT SCH ×6 (00:26→21:11)
[2019-07-17] MEDS: IPRATROPIUM NEB FS 0.5 MG/2.5 ML AMPUL.NEB IH SCH ×4 (02:06→19:53)
[2019-07-17] MEDS: ALBUTEROL FS 2.5 MG/3 ML VIAL.NEB NEB SCH ×4 (02:06→19:53)
[2019-07-17] MEDS: LEVOTHYROXINE SODIUM 88 MCG TABLET GT SCH (05:01)
[2019-07-17] MEDS: OMEPRAZOLE 20 MG CAPSULE.DR GT SCH (05:01)
[2019-07-17 07:51] VITALS: BP 111/55
[2019-07-17] MEDS: CARBOXYMETHYLCELLULOSE SODIUM 0.4 ML DROPERETTE EACHEYE SCH (08:03)
[2019-07-17] MEDS: LEVETIRACETAM SOL (5 ML) 100 MG/ML UDC GT SCH ×2 (08:03→21:11)
[2019-07-17] MEDS: MULTIVIT W/MINERALS 1 TAB TABLET GT SCH (08:03)
[2019-07-17] MEDS: ACIDOPHILUS/BULGARICUS 1 EACH TAB.CHEW GT SCH ×2 (08:03→16:49)
[2019-07-17] MEDS: PROSTAT (PYXIS) 30 ML UDC GT SCH ×3 (08:03→16:49)
[2019-07-17] MEDS: ACETAMINOPHEN 650 MG/20 ML UDC- SA PATIENTS-PAIN ONLY GT SCH ×2 (08:03→21:12)
[2019-07-17] MEDS: ZINC SULFATE 220 MG CAPSULE GT SCH (08:04)
[2019-07-17] MEDS: CHLORHEXIDINE GLUCONATE 15 ML UDC MM SCH ×2 (08:04→21:12)
[2019-07-17] MEDS: ASCORBIC ACID 500 MG TABLET GT SCH (08:04)
[2019-07-17] MEDS: HYDROGEN PEROXIDE 480 ML BOTTLE TP SCH ×2 (09:00→19:53)
[2019-07-17] MEDS: COD LIVER OIL/ZINC OXIDE 120 GM TUBE TP SCH ×2 (09:00→21:12)
[2019-07-17 12:08] VITALS: BP 107/61
[2019-07-17 18:36] VITALS: BP 115/62
[2019-07-17 19:42] VITALS: BP 128/67
[2019-07-17 22:20] VITALS: BP 128/67
[2019-07-18] MEDS: GLUCERNA 1.2 1,000 ML BOTTLE GT SCH ×6 (01:16→20:34)
[2019-07-18] MEDS: ALBUTEROL FS 2.5 MG/3 ML VIAL.NEB NEB SCH ×5 (01:46→19:48)
[2019-07-18] MEDS: IPRATROPIUM NEB FS 0.5 MG/2.5 ML AMPUL.NEB IH SCH ×5 (01:46→19:48)
[2019-07-18] MEDS: OMEPRAZOLE 20 MG CAPSULE.DR GT SCH (06:05)
[2019-07-18] MEDS: LEVOTHYROXINE SODIUM 88 MCG TABLET GT SCH (06:05)
[2019-07-18] MEDS: METOCLOPRAMIDE HCL 10 MG/10 ML UDC GT SCH ×4 (06:05→23:45)
[2019-07-18 07:33] VITALS: BP 121/55
[2019-07-18] MEDS: PROSTAT (PYXIS) 30 ML UDC GT SCH ×3 (08:13→16:13)
[2019-07-18] MEDS: HYDROGEN PEROXIDE 480 ML BOTTLE TP SCH ×2 (08:13→19:48)
[2019-07-18] MEDS: MULTIVIT W/MINERALS 1 TAB TABLET GT SCH (08:13)
[2019-07-18] MEDS: ZINC SULFATE 220 MG CAPSULE GT SCH (08:13)
[2019-07-18] MEDS: CARBOXYMETHYLCELLULOSE SODIUM 0.4 ML DROPERETTE EACHEYE SCH (08:13)
[2019-07-18] MEDS: ASCORBIC ACID 500 MG TABLET GT SCH (08:13)
[2019-07-18] MEDS: ACIDOPHILUS/BULGARICUS 1 EACH TAB.CHEW GT SCH ×2 (08:13→16:13)
[2019-07-18] MEDS: LEVETIRACETAM SOL (5 ML) 100 MG/ML UDC GT SCH ×2 (08:13→20:34)
[2019-07-18] MEDS: ACETAMINOPHEN 650 MG/20 ML UDC- SA PATIENTS-PAIN ONLY GT SCH ×2 (08:13→20:34)
[2019-07-18] MEDS: CHLORHEXIDINE GLUCONATE 15 ML UDC MM SCH ×2 (08:16→20:34)
[2019-07-18] MEDS: NYSTATIN CREAM 15 GM TUBE TP SCH ×2 (09:00→20:35)
[2019-07-18] MEDS: COD LIVER OIL/ZINC OXIDE 120 GM TUBE TP SCH ×2 (09:00→20:35)
[2019-07-18] MEDS: TRIAMCINOLONE ACETONIDE 0.1% CR 15 GM TUBE TP SCH ×2 (09:00→20:35)
[2019-07-18 18:33] VITALS: BP 114/64
[2019-07-18 19:52] VITALS: BP 139/68
[2019-07-18 22:16] VITALS: BP 122/58
[2019-07-19] MEDS: IPRATROPIUM NEB FS 0.5 MG/2.5 ML AMPUL.NEB IH SCH ×4 (01:57→20:11)
[2019-07-19] MEDS: ALBUTEROL FS 2.5 MG/3 ML VIAL.NEB NEB SCH ×4 (01:57→20:11)
[2019-07-19] MEDS: METOCLOPRAMIDE HCL 10 MG/10 ML UDC GT SCH ×4 (05:07→23:33)
[2019-07-19] MEDS: LEVOTHYROXINE SODIUM 88 MCG TABLET GT SCH (05:07)
[2019-07-19] MEDS: OMEPRAZOLE 20 MG CAPSULE.DR GT SCH (05:07)
[2019-07-19] MEDS: GLUCERNA 1.2 1,000 ML BOTTLE GT SCH ×6 (05:07→20:13)
[2019-07-19 07:15] VITALS: BP 129/61
[2019-07-19] MEDS: LEVETIRACETAM SOL (5 ML) 100 MG/ML UDC GT SCH ×2 (08:22→20:13)
[2019-07-19] MEDS: ACIDOPHILUS/BULGARICUS 1 EACH TAB.CHEW GT SCH ×2 (08:22→17:14)
[2019-07-19] MEDS: ASCORBIC ACID 500 MG TABLET GT SCH (08:22)
[2019-07-19] MEDS: CARBOXYMETHYLCELLULOSE SODIUM 0.4 ML DROPERETTE EACHEYE SCH (08:22)
[2019-07-19] MEDS: MULTIVIT W/MINERALS 1 TAB TABLET GT SCH (08:22)
[2019-07-19] MEDS: ZINC SULFATE 220 MG CAPSULE GT SCH (08:22)
[2019-07-19] MEDS: CHLORHEXIDINE GLUCONATE 15 ML UDC MM SCH ×2 (08:22→20:13)
[2019-07-19] MEDS: ACETAMINOPHEN 650 MG/20 ML UDC- SA PATIENTS-PAIN ONLY GT SCH ×2 (08:22→20:13)
[2019-07-19] MEDS: PROSTAT (PYXIS) 30 ML UDC GT SCH ×3 (08:22→17:14)
[2019-07-19] MEDS: HYDROGEN PEROXIDE 480 ML BOTTLE TP SCH ×2 (08:26→20:12)
[2019-07-19] MEDS: TRIAMCINOLONE ACETONIDE 0.1% CR 15 GM TUBE TP SCH ×2 (09:00→20:13)
[2019-07-19] MEDS: COD LIVER OIL/ZINC OXIDE 120 GM TUBE TP SCH ×2 (09:00→20:13)
[2019-07-19] MEDS: NYSTATIN CREAM 15 GM TUBE TP SCH ×2 (09:00→20:13)
[2019-07-19 12:20] VITALS: BP 124/48
--- NOTE | 2019-07-19 15:43 | NUR ---
Family Check-in: JOSSE called the patient's daughter/conservator, Reyna Galindo [phone] to check in with the patient's family to monitor the family's psychosocial needs. Per Reyna, she is doing well is taking care of herself and her family during this Pandemic and stated, "thanks for calling". JOSSE asked if she received email regarding video chat option. Reyna stated she did receive it and is interested in seeing her patient via facetime. Per Reyna, she is "pretty available nowadays". JOSSE will facilitate patient/family facetime calls as needed.
[2019-07-19 18:44] VITALS: BP 118/52
[2019-07-19 20:00] VITALS: BP 139/81
[2019-07-19 22:40] VITALS: BP 139/81
[2019-07-20] MEDS: GLUCERNA 1.2 1,000 ML BOTTLE GT SCH ×6 (00:23→21:10)
[2019-07-20] MEDS: IPRATROPIUM NEB FS 0.5 MG/2.5 ML AMPUL.NEB IH SCH ×4 (01:50→20:01)
[2019-07-20] MEDS: ALBUTEROL FS 2.5 MG/3 ML VIAL.NEB NEB SCH ×4 (01:50→20:01)
[2019-07-20] MEDS: METOCLOPRAMIDE HCL 10 MG/10 ML UDC GT SCH ×4 (05:06→23:07)
[2019-07-20] MEDS: LEVOTHYROXINE SODIUM 88 MCG TABLET GT SCH (05:06)
[2019-07-20] MEDS: OMEPRAZOLE 20 MG CAPSULE.DR GT SCH (05:06)
[2019-07-20 07:45] VITALS: BP 121/68
[2019-07-20] MEDS: LEVETIRACETAM SOL (5 ML) 100 MG/ML UDC GT SCH ×2 (08:16→21:10)
[2019-07-20] MEDS: ACIDOPHILUS/BULGARICUS 1 EACH TAB.CHEW GT SCH ×2 (08:16→16:23)
[2019-07-20] MEDS: PROSTAT (PYXIS) 30 ML UDC GT SCH ×3 (08:17→16:23)
[2019-07-20] MEDS: ACETAMINOPHEN 650 MG/20 ML UDC- SA PATIENTS-PAIN ONLY GT SCH ×2 (08:17→21:10)
[2019-07-20] MEDS: CHLORHEXIDINE GLUCONATE 15 ML UDC MM SCH ×2 (08:18→21:10)
[2019-07-20] MEDS: CARBOXYMETHYLCELLULOSE SODIUM 0.4 ML DROPERETTE EACHEYE SCH (08:18)
[2019-07-20] MEDS: ASCORBIC ACID 500 MG TABLET GT SCH (08:18)
[2019-07-20] MEDS: ZINC SULFATE 220 MG CAPSULE GT SCH (08:18)
[2019-07-20] MEDS: MULTIVIT W/MINERALS 1 TAB TABLET GT SCH (08:25)
[2019-07-20] MEDS: COD LIVER OIL/ZINC OXIDE 120 GM TUBE TP SCH ×2 (09:00→21:10)
[2019-07-20] MEDS: NYSTATIN CREAM 15 GM TUBE TP SCH ×2 (09:00→21:10)
[2019-07-20] MEDS: TRIAMCINOLONE ACETONIDE 0.1% CR 15 GM TUBE TP SCH ×2 (09:00→21:10)
[2019-07-20] MEDS: HYDROGEN PEROXIDE 480 ML BOTTLE TP SCH ×2 (09:00→21:15)
[2019-07-20 15:50] VITALS: BP 119/64
[2019-07-20 19:52] VITALS: BP 129/71
[2019-07-20 22:14] VITALS: BP 129/71
[2019-07-21] MEDS: GLUCERNA 1.2 1,000 ML BOTTLE GT SCH ×6 (01:00→21:30)
[2019-07-21] MEDS: IPRATROPIUM NEB FS 0.5 MG/2.5 ML AMPUL.NEB IH SCH ×4 (01:16→19:22)
[2019-07-21] MEDS: ALBUTEROL FS 2.5 MG/3 ML VIAL.NEB NEB SCH ×4 (01:16→19:22)
[2019-07-21] MEDS: METOCLOPRAMIDE HCL 10 MG/10 ML UDC GT SCH ×3 (05:06→17:01)
[2019-07-21] MEDS: LEVOTHYROXINE SODIUM 88 MCG TABLET GT SCH (05:06)
[2019-07-21] MEDS: OMEPRAZOLE 20 MG CAPSULE.DR GT SCH (05:06)
[2019-07-21 07:37] VITALS: BP 132/70
[2019-07-21] MEDS: TRIAMCINOLONE ACETONIDE 0.1% CR 15 GM TUBE TP SCH ×2 (09:00→20:09)
[2019-07-21] MEDS: PROSTAT (PYXIS) 30 ML UDC GT SCH ×3 (09:00→17:01)
[2019-07-21] MEDS: HYDROGEN PEROXIDE 480 ML BOTTLE TP SCH ×2 (09:00→21:21)
[2019-07-21] MEDS: MULTIVIT W/MINERALS 1 TAB TABLET GT SCH (09:00)
[2019-07-21] MEDS: CARBOXYMETHYLCELLULOSE SODIUM 0.4 ML DROPERETTE EACHEYE SCH (09:00)
[2019-07-21] MEDS: NYSTATIN CREAM 15 GM TUBE TP SCH ×2 (09:00→20:09)
[2019-07-21] MEDS: ACETAMINOPHEN 650 MG/20 ML UDC- SA PATIENTS-PAIN ONLY GT SCH ×2 (09:00→20:08)
[2019-07-21] MEDS: ACIDOPHILUS/BULGARICUS 1 EACH TAB.CHEW GT SCH ×2 (09:00→17:01)
[2019-07-21] MEDS: ASCORBIC ACID 500 MG TABLET GT SCH (09:00)
[2019-07-21] MEDS: COD LIVER OIL/ZINC OXIDE 120 GM TUBE TP SCH ×2 (09:00→20:09)
[2019-07-21] MEDS: LEVETIRACETAM SOL (5 ML) 100 MG/ML UDC GT SCH ×2 (09:00→20:07)
[2019-07-21] MEDS: ZINC SULFATE 220 MG CAPSULE GT SCH (09:00)
[2019-07-21] MEDS: CHLORHEXIDINE GLUCONATE 15 ML UDC MM SCH ×2 (09:00→20:08)
[2019-07-21 10:57] VITALS: BP 111/68
[2019-07-21 19:54] VITALS: BP 112/71
[2019-07-21 22:11] VITALS: BP 112/71
[2019-07-22] MEDS: METOCLOPRAMIDE HCL 10 MG/10 ML UDC GT SCH ×5 (00:19→23:56)
[2019-07-22] MEDS: ALBUTEROL FS 2.5 MG/3 ML VIAL.NEB NEB SCH ×4 (00:53→19:42)
[2019-07-22] MEDS: IPRATROPIUM NEB FS 0.5 MG/2.5 ML AMPUL.NEB IH SCH ×4 (00:53→19:42)
[2019-07-22] MEDS: GLUCERNA 1.2 1,000 ML BOTTLE GT SCH ×6 (01:00→20:26)
[2019-07-22] MEDS: LEVOTHYROXINE SODIUM 88 MCG TABLET GT SCH (05:01)
[2019-07-22] MEDS: OMEPRAZOLE 20 MG CAPSULE.DR GT SCH (05:01)
[2019-07-22 07:32] VITALS: BP 136/52
[2019-07-22] MEDS: HYDROGEN PEROXIDE 480 ML BOTTLE TP SCH ×2 (08:23→21:00)
[2019-07-22] MEDS: LEVETIRACETAM SOL (5 ML) 100 MG/ML UDC GT SCH ×2 (09:05→20:22)
[2019-07-22] MEDS: ACIDOPHILUS/BULGARICUS 1 EACH TAB.CHEW GT SCH ×2 (09:05→17:55)
[2019-07-22] MEDS: CARBOXYMETHYLCELLULOSE SODIUM 0.4 ML DROPERETTE EACHEYE SCH (09:05)
[2019-07-22] MEDS: ZINC SULFATE 220 MG CAPSULE GT SCH (09:05)
[2019-07-22] MEDS: PROSTAT (PYXIS) 30 ML UDC GT SCH ×3 (09:05→17:55)
[2019-07-22] MEDS: CHLORHEXIDINE GLUCONATE 15 ML UDC MM SCH ×2 (09:05→20:23)
[2019-07-22] MEDS: MULTIVIT W/MINERALS 1 TAB TABLET GT SCH (09:05)
[2019-07-22] MEDS: ACETAMINOPHEN 650 MG/20 ML UDC- SA PATIENTS-PAIN ONLY GT SCH ×2 (09:05→20:23)
[2019-07-22] MEDS: ASCORBIC ACID 500 MG TABLET GT SCH (09:05)
[2019-07-22] MEDS: TRIAMCINOLONE ACETONIDE 0.1% CR 15 GM TUBE TP SCH ×2 (09:06→20:24)
[2019-07-22] MEDS: COD LIVER OIL/ZINC OXIDE 120 GM TUBE TP SCH ×2 (09:06→20:24)
[2019-07-22] MEDS: NYSTATIN CREAM 15 GM TUBE TP SCH ×2 (09:06→20:24)
[2019-07-22 15:24] VITALS: BP 118/70
[2019-07-22 20:17] VITALS: BP 126/64
[2019-07-23 00:08] VITALS: BP 123/75
[2019-07-23] MEDS: IPRATROPIUM NEB FS 0.5 MG/2.5 ML AMPUL.NEB IH SCH ×4 (01:07→20:03)
[2019-07-23] MEDS: ALBUTEROL FS 2.5 MG/3 ML VIAL.NEB NEB SCH ×4 (01:30→20:03)
[2019-07-23] MEDS: GLUCERNA 1.2 1,000 ML BOTTLE GT SCH ×6 (01:55→21:27)
[2019-07-23] MEDS: METOCLOPRAMIDE HCL 10 MG/10 ML UDC GT SCH ×4 (05:16→23:48)
[2019-07-23] MEDS: OMEPRAZOLE 20 MG CAPSULE.DR GT SCH (05:16)
[2019-07-23] MEDS: LEVOTHYROXINE SODIUM 88 MCG TABLET GT SCH (05:16)
[2019-07-23 07:32] VITALS: BP 117/62
[2019-07-23] MEDS: HYDROGEN PEROXIDE 480 ML BOTTLE TP SCH ×2 (08:10→20:03)
[2019-07-23] MEDS: ZINC SULFATE 220 MG CAPSULE GT SCH (08:54)
[2019-07-23] MEDS: LEVETIRACETAM SOL (5 ML) 100 MG/ML UDC GT SCH ×2 (08:54→21:28)
[2019-07-23] MEDS: ACETAMINOPHEN 650 MG/20 ML UDC- SA PATIENTS-PAIN ONLY GT SCH ×2 (08:54→21:28)
[2019-07-23] MEDS: CHLORHEXIDINE GLUCONATE 15 ML UDC MM SCH ×2 (08:54→21:28)
[2019-07-23] MEDS: CARBOXYMETHYLCELLULOSE SODIUM 0.4 ML DROPERETTE EACHEYE SCH (08:54)
[2019-07-23] MEDS: PROSTAT (PYXIS) 30 ML UDC GT SCH ×3 (08:54→17:46)
[2019-07-23] MEDS: MULTIVIT W/MINERALS 1 TAB TABLET GT SCH (08:54)
[2019-07-23] MEDS: ACIDOPHILUS/BULGARICUS 1 EACH TAB.CHEW GT SCH ×2 (08:54→17:46)
[2019-07-23] MEDS: TRIAMCINOLONE ACETONIDE 0.1% CR 15 GM TUBE TP SCH ×2 (08:54→21:28)
[2019-07-23] MEDS: ASCORBIC ACID 500 MG TABLET GT SCH (08:54)
[2019-07-23] MEDS: COD LIVER OIL/ZINC OXIDE 120 GM TUBE TP SCH ×2 (08:55→21:28)
[2019-07-23] MEDS: NYSTATIN CREAM 15 GM TUBE TP SCH ×2 (08:55→21:28)
--- NOTE | 2019-07-23 13:12 | NUR ---
Family Invite to IDT plan of Care Conference: This SW called the patient's daughter/DPOA, Reyna SpringerKenzie and invited her to participate in IDT meeting 07/26/2019 between 12:30pm-1:30pm. Per Reyna, she can participate via phone conference. Noted.
[2019-07-23 15:00] VITALS: BP 121/69
[2019-07-23 20:18] VITALS: BP_SYST 108; BP_SYST 99; BP_DIAS 58; BP_DIAS 64
[2019-07-23 22:11] VITALS: BP 129/64
[2019-07-24] MEDS: GLUCERNA 1.2 1,000 ML BOTTLE GT SCH ×6 (01:00→20:53)
[2019-07-24] MEDS: IPRATROPIUM NEB FS 0.5 MG/2.5 ML AMPUL.NEB IH SCH ×4 (02:00→20:05)
[2019-07-24] MEDS: ALBUTEROL FS 2.5 MG/3 ML VIAL.NEB NEB SCH ×4 (02:00→20:05)
[2019-07-24] MEDS: METOCLOPRAMIDE HCL 10 MG/10 ML UDC GT SCH ×3 (05:53→17:12)
[2019-07-24] MEDS: OMEPRAZOLE 20 MG CAPSULE.DR GT SCH (05:53)
[2019-07-24] MEDS: LEVOTHYROXINE SODIUM 88 MCG TABLET GT SCH (05:53)
[2019-07-24 07:27] VITALS: BP 129/77
[2019-07-24] MEDS: HYDROGEN PEROXIDE 480 ML BOTTLE TP SCH ×2 (09:00→20:05)
[2019-07-24] MEDS: ACIDOPHILUS/BULGARICUS 1 EACH TAB.CHEW GT SCH ×2 (09:22→16:00)
[2019-07-24] MEDS: LEVETIRACETAM SOL (5 ML) 100 MG/ML UDC GT SCH ×2 (09:22→20:53)
[2019-07-24] MEDS: CARBOXYMETHYLCELLULOSE SODIUM 0.4 ML DROPERETTE EACHEYE SCH (09:22)
[2019-07-24] MEDS: PROSTAT (PYXIS) 30 ML UDC GT SCH ×3 (09:23→16:00)
[2019-07-24] MEDS: MULTIVIT W/MINERALS 1 TAB TABLET GT SCH (09:23)
[2019-07-24] MEDS: ZINC SULFATE 220 MG CAPSULE GT SCH (09:24)
[2019-07-24] MEDS: ACETAMINOPHEN 650 MG/20 ML UDC- SA PATIENTS-PAIN ONLY GT SCH ×2 (09:24→20:53)
[2019-07-24] MEDS: CHLORHEXIDINE GLUCONATE 15 ML UDC MM SCH ×2 (09:24→20:53)
[2019-07-24] MEDS: ASCORBIC ACID 500 MG TABLET GT SCH (09:24)
--- NOTE | 2019-07-24 09:30 | NUR ---
Jamil catheter noted with bypassing with urine blockage. Jamil catheter changed as ordered. Tolerated procedure well. All needs met and attended. kept clean and comfortable.
[2019-07-24] MEDS: COD LIVER OIL/ZINC OXIDE 120 GM TUBE TP SCH ×2 (10:24→21:20)
[2019-07-24] MEDS: NYSTATIN CREAM 15 GM TUBE TP SCH ×2 (10:24→21:20)
[2019-07-24] MEDS: TRIAMCINOLONE ACETONIDE 0.1% CR 15 GM TUBE TP SCH ×2 (10:24→21:20)
[2019-07-24 15:22] VITALS: BP 129/77
[2019-07-24 20:03] VITALS: BP 136/60
[2019-07-24 22:00] VITALS: BP 128/70
[2019-07-25] MEDS: METOCLOPRAMIDE HCL 10 MG/10 ML UDC GT SCH ×4 (00:05→18:00)
[2019-07-25] MEDS: GLUCERNA 1.2 1,000 ML BOTTLE GT SCH ×6 (01:35→21:09)
[2019-07-25] MEDS: IPRATROPIUM NEB FS 0.5 MG/2.5 ML AMPUL.NEB IH SCH ×4 (01:48→19:55)
[2019-07-25] MEDS: ALBUTEROL FS 2.5 MG/3 ML VIAL.NEB NEB SCH ×4 (01:48→19:55)
[2019-07-25] MEDS: OMEPRAZOLE 20 MG CAPSULE.DR GT SCH (05:48)
[2019-07-25] MEDS: LEVOTHYROXINE SODIUM 88 MCG TABLET GT SCH (05:48)
[2019-07-25 07:32] VITALS: BP 134/73
[2019-07-25] MEDS: HYDROGEN PEROXIDE 480 ML BOTTLE TP SCH ×2 (08:08→19:56)
[2019-07-25] MEDS: PROSTAT (PYXIS) 30 ML UDC GT SCH ×3 (08:36→16:17)
[2019-07-25] MEDS: LEVETIRACETAM SOL (5 ML) 100 MG/ML UDC GT SCH ×2 (08:36→21:09)
[2019-07-25] MEDS: MULTIVIT W/MINERALS 1 TAB TABLET GT SCH (08:36)
[2019-07-25] MEDS: ACIDOPHILUS/BULGARICUS 1 EACH TAB.CHEW GT SCH ×2 (08:36→16:17)
[2019-07-25] MEDS: CARBOXYMETHYLCELLULOSE SODIUM 0.4 ML DROPERETTE EACHEYE SCH (08:36)
[2019-07-25] MEDS: ASCORBIC ACID 500 MG TABLET GT SCH (08:37)
[2019-07-25] MEDS: ZINC SULFATE 220 MG CAPSULE GT SCH (08:37)
[2019-07-25] MEDS: ACETAMINOPHEN 650 MG/20 ML UDC- SA PATIENTS-PAIN ONLY GT SCH ×2 (08:37→21:10)
[2019-07-25] MEDS: CHLORHEXIDINE GLUCONATE 15 ML UDC MM SCH ×2 (08:37→21:10)
[2019-07-25] MEDS: NYSTATIN CREAM 15 GM TUBE TP SCH ×2 (09:10→21:10)
[2019-07-25] MEDS: TRIAMCINOLONE ACETONIDE 0.1% CR 15 GM TUBE TP SCH ×2 (09:10→21:10)
[2019-07-25] MEDS: COD LIVER OIL/ZINC OXIDE 120 GM TUBE TP SCH ×2 (09:10→21:10)
[2019-07-25 12:59] VITALS: BP 134/73
--- NOTE | 2019-07-25 17:14 | NUR ---
RT NOTE RECEIVED PATIENT ON 28% COOL AEROSOL, TOLERATING WELL. TRACH TUBE IN PLACE, PATENT, AND SECURE WITH TRACH TIE. BACK UP TRACH AND AMBU BAG BY THE BEDSIDE. TOLERATE HHN TX WELL. NO DISTRESS AT THIS TIME. MONITOR THROUGHOUT SHIFT.
[2019-07-25 20:00] VITALS: BP 118/54
[2019-07-25 22:00] VITALS: BP 122/63
[2019-07-26] MEDS: GLUCERNA 1.2 1,000 ML BOTTLE GT SCH ×6 (00:22→21:06)
[2019-07-26] MEDS: METOCLOPRAMIDE HCL 10 MG/10 ML UDC GT SCH ×5 (00:22→23:14)
[2019-07-26] MEDS: ALBUTEROL FS 2.5 MG/3 ML VIAL.NEB NEB SCH ×4 (01:50→20:28)
[2019-07-26] MEDS: IPRATROPIUM NEB FS 0.5 MG/2.5 ML AMPUL.NEB IH SCH ×4 (01:50→20:28)
[2019-07-26] MEDS: OMEPRAZOLE 20 MG CAPSULE.DR GT SCH (05:40)
[2019-07-26] MEDS: LEVOTHYROXINE SODIUM 88 MCG TABLET GT SCH (05:40)
[2019-07-26 07:48] VITALS: BP 126/71
[2019-07-26] MEDS: HYDROGEN PEROXIDE 480 ML BOTTLE TP SCH ×2 (08:17→21:12)
[2019-07-26] MEDS: ACIDOPHILUS/BULGARICUS 1 EACH TAB.CHEW GT SCH ×2 (08:24→16:31)
[2019-07-26] MEDS: LEVETIRACETAM SOL (5 ML) 100 MG/ML UDC GT SCH ×2 (08:24→21:07)
[2019-07-26] MEDS: PROSTAT (PYXIS) 30 ML UDC GT SCH ×3 (08:24→16:31)
[2019-07-26] MEDS: MULTIVIT W/MINERALS 1 TAB TABLET GT SCH (08:24)
[2019-07-26] MEDS: CARBOXYMETHYLCELLULOSE SODIUM 0.4 ML DROPERETTE EACHEYE SCH (08:24)
[2019-07-26] MEDS: CHLORHEXIDINE GLUCONATE 15 ML UDC MM SCH ×2 (08:25→21:07)
[2019-07-26] MEDS: ZINC SULFATE 220 MG CAPSULE GT SCH (08:25)
[2019-07-26] MEDS: ASCORBIC ACID 500 MG TABLET GT SCH (08:25)
[2019-07-26] MEDS: ACETAMINOPHEN 650 MG/20 ML UDC- SA PATIENTS-PAIN ONLY GT SCH ×2 (08:25→21:07)
[2019-07-26] MEDS: COD LIVER OIL/ZINC OXIDE 120 GM TUBE TP SCH ×2 (10:00→21:07)
[2019-07-26] MEDS: NYSTATIN CREAM 15 GM TUBE TP SCH ×2 (10:00→21:07)
[2019-07-26] MEDS: TRIAMCINOLONE ACETONIDE 0.1% CR 15 GM TUBE TP SCH ×2 (10:00→21:07)
[2019-07-26 12:15] VITALS: BP 118/62
[2019-07-26 18:29] VITALS: BP 122/53
--- NOTE | 2019-07-26 18:31 | NUR ---
Seen and examined by Dr. Ross and Becca Smith, TERESA no new order given.
[2019-07-26 20:09] VITALS: BP 134/70
[2019-07-26 22:32] VITALS: BP 134/70
[2019-07-27] MEDS: GLUCERNA 1.2 1,000 ML BOTTLE GT SCH ×6 (01:00→20:34)
[2019-07-27] MEDS: ALBUTEROL FS 2.5 MG/3 ML VIAL.NEB NEB SCH ×4 (01:48→19:38)
[2019-07-27] MEDS: IPRATROPIUM NEB FS 0.5 MG/2.5 ML AMPUL.NEB IH SCH ×4 (01:48→19:38)
[2019-07-27] MEDS: OMEPRAZOLE 20 MG CAPSULE.DR GT SCH (05:32)
[2019-07-27] MEDS: METOCLOPRAMIDE HCL 10 MG/10 ML UDC GT SCH ×3 (05:32→17:01)
[2019-07-27] MEDS: LEVOTHYROXINE SODIUM 88 MCG TABLET GT SCH (05:32)
[2019-07-27 07:25] VITALS: BP 131/67
[2019-07-27 08:00] VITALS: BP 131/67
[2019-07-27] MEDS: HYDROGEN PEROXIDE 480 ML BOTTLE TP SCH ×2 (09:00→20:44)
[2019-07-27] MEDS: LEVETIRACETAM SOL (5 ML) 100 MG/ML UDC GT SCH ×2 (09:20→20:34)
[2019-07-27] MEDS: ACIDOPHILUS/BULGARICUS 1 EACH TAB.CHEW GT SCH ×2 (09:20→17:01)
[2019-07-27] MEDS: PROSTAT (PYXIS) 30 ML UDC GT SCH ×3 (09:20→17:01)
[2019-07-27] MEDS: CARBOXYMETHYLCELLULOSE SODIUM 0.4 ML DROPERETTE EACHEYE SCH (09:20)
[2019-07-27] MEDS: MULTIVIT W/MINERALS 1 TAB TABLET GT SCH (09:20)
[2019-07-27] MEDS: ACETAMINOPHEN 650 MG/20 ML UDC- SA PATIENTS-PAIN ONLY GT SCH ×2 (09:21→20:35)
[2019-07-27] MEDS: ZINC SULFATE 220 MG CAPSULE GT SCH (09:21)
[2019-07-27] MEDS: ASCORBIC ACID 500 MG TABLET GT SCH (09:21)
[2019-07-27] MEDS: CHLORHEXIDINE GLUCONATE 15 ML UDC MM SCH ×2 (09:21→20:35)
[2019-07-27] MEDS: COD LIVER OIL/ZINC OXIDE 120 GM TUBE TP SCH ×2 (10:21→21:11)
[2019-07-27] MEDS: TRIAMCINOLONE ACETONIDE 0.1% CR 15 GM TUBE TP SCH ×2 (10:21→21:11)
[2019-07-27] MEDS: NYSTATIN CREAM 15 GM TUBE TP SCH ×2 (10:21→21:11)
[2019-07-27 20:11] VITALS: BP 114/65
[2019-07-27 22:30] VITALS: BP 118/68
[2019-07-28] MEDS: GLUCERNA 1.2 1,000 ML BOTTLE GT SCH ×6 (00:26→21:16)
[2019-07-28] MEDS: METOCLOPRAMIDE HCL 10 MG/10 ML UDC GT SCH ×4 (00:26→17:03)
[2019-07-28] MEDS: ALBUTEROL FS 2.5 MG/3 ML VIAL.NEB NEB SCH ×4 (02:18→19:46)
[2019-07-28] MEDS: IPRATROPIUM NEB FS 0.5 MG/2.5 ML AMPUL.NEB IH SCH ×4 (02:18→19:46)
[2019-07-28] MEDS: LEVOTHYROXINE SODIUM 88 MCG TABLET GT SCH (05:10)
[2019-07-28] MEDS: OMEPRAZOLE 20 MG CAPSULE.DR GT SCH (05:10)
[2019-07-28 08:07] VITALS: BP 120/61
[2019-07-28] MEDS: HYDROGEN PEROXIDE 480 ML BOTTLE TP SCH ×2 (08:10→21:57)
[2019-07-28] MEDS: PROSTAT (PYXIS) 30 ML UDC GT SCH ×3 (09:54→17:03)
[2019-07-28] MEDS: ACIDOPHILUS/BULGARICUS 1 EACH TAB.CHEW GT SCH ×2 (09:54→17:03)
[2019-07-28] MEDS: LEVETIRACETAM SOL (5 ML) 100 MG/ML UDC GT SCH ×2 (09:54→21:16)
[2019-07-28] MEDS: CARBOXYMETHYLCELLULOSE SODIUM 0.4 ML DROPERETTE EACHEYE SCH (09:54)
[2019-07-28] MEDS: MULTIVIT W/MINERALS 1 TAB TABLET GT SCH (09:54)
[2019-07-28] MEDS: ZINC SULFATE 220 MG CAPSULE GT SCH (09:55)
[2019-07-28] MEDS: ASCORBIC ACID 500 MG TABLET GT SCH (09:55)
[2019-07-28] MEDS: CHLORHEXIDINE GLUCONATE 15 ML UDC MM SCH ×2 (09:55→21:17)
[2019-07-28] MEDS: COD LIVER OIL/ZINC OXIDE 120 GM TUBE TP SCH ×2 (09:55→21:17)
[2019-07-28] MEDS: ACETAMINOPHEN 650 MG/20 ML UDC- SA PATIENTS-PAIN ONLY GT SCH ×2 (09:55→21:17)
[2019-07-28] MEDS: NYSTATIN CREAM 15 GM TUBE TP SCH ×2 (09:55→21:17)
[2019-07-28] MEDS: TRIAMCINOLONE ACETONIDE 0.1% CR 15 GM TUBE TP SCH ×2 (09:55→21:17)
[2019-07-28 10:18] VITALS: BP 120/61
[2019-07-28 20:08] VITALS: BP 125/68
[2019-07-28 22:15] VITALS: BP 125/68
[2019-07-29] MEDS: METOCLOPRAMIDE HCL 10 MG/10 ML UDC GT SCH ×5 (00:06→23:26)
[2019-07-29] MEDS: GLUCERNA 1.2 1,000 ML BOTTLE GT SCH ×6 (00:06→21:32)
[2019-07-29] MEDS: ALBUTEROL FS 2.5 MG/3 ML VIAL.NEB NEB SCH ×4 (01:52→19:30)
[2019-07-29] MEDS: IPRATROPIUM NEB FS 0.5 MG/2.5 ML AMPUL.NEB IH SCH ×4 (01:52→19:30)
[2019-07-29] MEDS: OMEPRAZOLE 20 MG CAPSULE.DR GT SCH (06:29)
[2019-07-29] MEDS: LEVOTHYROXINE SODIUM 88 MCG TABLET GT SCH (06:29)
[2019-07-29 07:39] VITALS: BP 116/75
[2019-07-29] MEDS: HYDROGEN PEROXIDE 480 ML BOTTLE TP SCH ×2 (09:00→21:00)
[2019-07-29] MEDS: ACIDOPHILUS/BULGARICUS 1 EACH TAB.CHEW GT SCH ×2 (09:33→17:34)
[2019-07-29] MEDS: ZINC SULFATE 220 MG CAPSULE GT SCH (09:33)
[2019-07-29] MEDS: LEVETIRACETAM SOL (5 ML) 100 MG/ML UDC GT SCH ×2 (09:33→21:32)
[2019-07-29] MEDS: CARBOXYMETHYLCELLULOSE SODIUM 0.4 ML DROPERETTE EACHEYE SCH (09:33)
[2019-07-29] MEDS: ACETAMINOPHEN 650 MG/20 ML UDC- SA PATIENTS-PAIN ONLY GT SCH ×2 (09:33→21:32)
[2019-07-29] MEDS: PROSTAT (PYXIS) 30 ML UDC GT SCH ×3 (09:33→17:34)
[2019-07-29] MEDS: ASCORBIC ACID 500 MG TABLET GT SCH (09:33)
[2019-07-29] MEDS: CHLORHEXIDINE GLUCONATE 15 ML UDC MM SCH ×2 (09:33→21:32)
[2019-07-29] MEDS: MULTIVIT W/MINERALS 1 TAB TABLET GT SCH (09:33)
[2019-07-29] MEDS: NYSTATIN CREAM 15 GM TUBE TP SCH ×2 (10:15→21:33)
[2019-07-29] MEDS: TRIAMCINOLONE ACETONIDE 0.1% CR 15 GM TUBE TP SCH ×2 (10:15→21:33)
[2019-07-29] MEDS: COD LIVER OIL/ZINC OXIDE 120 GM TUBE TP SCH ×2 (10:15→21:33)
--- NOTE | 2019-07-29 10:27 | NUR ---
Late Entry for 07/26/2019: INTERDISCIPLINARY PLAN OF CARE CONFERENCE was held today. The patients responsible constitution party/daughter, Reyna Galindo [phone] was called to participate via phone conference. However, the call went to voicemail and SW left call back number. Charge nurse discussed continued Bolus feeding as pt. is tolerating well; sacral wound Tx. Dr. Monet and Interdisciplinary team discussed the plan of care in detail. Current orders as well as treatments and medications were reviewed. See other disciplines IDT notes for further details.
[2019-07-29 19:31] VITALS: BP 116/75
[2019-07-29 20:38] VITALS: BP 127/55
[2019-07-29 22:15] VITALS: BP 127/55
[2019-07-30] MEDS: GLUCERNA 1.2 1,000 ML BOTTLE GT SCH ×6 (01:00→20:01)
[2019-07-30] MEDS: ALBUTEROL FS 2.5 MG/3 ML VIAL.NEB NEB SCH (01:30)
[2019-07-30] MEDS: IPRATROPIUM NEB FS 0.5 MG/2.5 ML AMPUL.NEB IH SCH (01:30)
[2019-07-30] MEDS: OMEPRAZOLE 20 MG CAPSULE.DR GT SCH (05:47)
[2019-07-30] MEDS: METOCLOPRAMIDE HCL 10 MG/10 ML UDC GT SCH ×4 (05:47→23:03)
[2019-07-30] MEDS: LEVOTHYROXINE SODIUM 88 MCG TABLET GT SCH (05:47)
[2019-07-30] MEDS: HYDROGEN PEROXIDE 480 ML BOTTLE TP SCH ×2 (08:20→20:08)
[2019-07-30] MEDS: ASCORBIC ACID 500 MG TABLET GT SCH (09:06)
[2019-07-30] MEDS: ACIDOPHILUS/BULGARICUS 1 EACH TAB.CHEW GT SCH ×2 (09:06→16:05)
[2019-07-30] MEDS: MULTIVIT W/MINERALS 1 TAB TABLET GT SCH (09:06)
[2019-07-30] MEDS: PROSTAT (PYXIS) 30 ML UDC GT SCH ×3 (09:06→16:05)
[2019-07-30] MEDS: CARBOXYMETHYLCELLULOSE SODIUM 0.4 ML DROPERETTE EACHEYE SCH (09:06)
[2019-07-30] MEDS: CHLORHEXIDINE GLUCONATE 15 ML UDC MM SCH ×2 (09:06→20:01)
[2019-07-30] MEDS: ZINC SULFATE 220 MG CAPSULE GT SCH (09:06)
[2019-07-30] MEDS: ACETAMINOPHEN 650 MG/20 ML UDC- SA PATIENTS-PAIN ONLY GT SCH ×2 (09:06→20:08)
[2019-07-30] MEDS: LEVETIRACETAM SOL (5 ML) 100 MG/ML UDC GT SCH ×2 (09:06→20:01)
[2019-07-30] MEDS: NYSTATIN CREAM 15 GM TUBE TP SCH ×2 (09:07→20:09)
[2019-07-30] MEDS: COD LIVER OIL/ZINC OXIDE 120 GM TUBE TP SCH ×2 (09:07→20:08)
[2019-07-30] MEDS: TRIAMCINOLONE ACETONIDE 0.1% CR 15 GM TUBE TP SCH ×2 (09:07→20:08)
[2019-07-30 10:00] VITALS: BP 126/77
[2019-07-30 10:28] VITALS: BP 126/71
[2019-07-30] MEDS ORDERED: IPRATROPIUM NEB FS 0.5 MG/2.5 ML AMPUL.NEB IH PRN (11:34)
[2019-07-30 20:00] VITALS: BP 128/65
[2019-07-30 20:23] VITALS: BP 128/65
--- NOTE | 2019-07-30 21:05 | NUR ---
RT NOTE PT RECEIVED TRACHED ON COOL AEROSOL @ 28%. AMBU BAG/BACK UP TRACH @ BEDSIDE. SX DONE, TRACH SECURED AND PATENT. ALARMS ON AND AUDIBLE. NO DISTRESS NOTED. WATER LEVEL GOOD. WILL MONITOR T/O SHIFT. Addendum: 07/30/19 at 2106 by LETITIA BENITES RT Amended: Links added.
[2019-07-30 22:15] VITALS: BP 116/66
[2019-07-31] MEDS: GLUCERNA 1.2 1,000 ML BOTTLE GT SCH ×6 (00:40→21:18)
[2019-07-31] MEDS: METOCLOPRAMIDE HCL 10 MG/10 ML UDC GT SCH ×3 (05:19→18:01)
[2019-07-31] MEDS: LEVOTHYROXINE SODIUM 88 MCG TABLET GT SCH (05:19)
[2019-07-31] MEDS: OMEPRAZOLE 20 MG CAPSULE.DR GT SCH (05:19)
[2019-07-31 07:56] VITALS: BP 111/60
[2019-07-31 08:00] VITALS: BP 111/60
[2019-07-31] MEDS: HYDROGEN PEROXIDE 480 ML BOTTLE TP SCH ×2 (09:00→21:00)
[2019-07-31] MEDS: CARBOXYMETHYLCELLULOSE SODIUM 0.4 ML DROPERETTE EACHEYE SCH (09:23)
[2019-07-31] MEDS: PROSTAT (PYXIS) 30 ML UDC GT SCH ×3 (09:23→16:00)
[2019-07-31] MEDS: MULTIVIT W/MINERALS 1 TAB TABLET GT SCH (09:23)
[2019-07-31] MEDS: LEVETIRACETAM SOL (5 ML) 100 MG/ML UDC GT SCH ×2 (09:23→21:18)
[2019-07-31] MEDS: ACIDOPHILUS/BULGARICUS 1 EACH TAB.CHEW GT SCH ×2 (09:23→16:00)
[2019-07-31] MEDS: ASCORBIC ACID 500 MG TABLET GT SCH (09:24)
[2019-07-31] MEDS: ACETAMINOPHEN 650 MG/20 ML UDC- SA PATIENTS-PAIN ONLY GT SCH ×2 (09:24→21:19)
[2019-07-31] MEDS: ZINC SULFATE 220 MG CAPSULE GT SCH (09:24)
[2019-07-31] MEDS: CHLORHEXIDINE GLUCONATE 15 ML UDC MM SCH ×2 (09:24→21:19)
[2019-07-31] MEDS: TRIAMCINOLONE ACETONIDE 0.1% CR 15 GM TUBE TP SCH ×2 (10:24→21:54)
[2019-07-31] MEDS: COD LIVER OIL/ZINC OXIDE 120 GM TUBE TP SCH ×2 (10:25→21:55)
[2019-07-31] MEDS: NYSTATIN CREAM 15 GM TUBE TP SCH ×2 (10:25→21:55)
--- NOTE | 2019-07-31 16:00 | NUR ---
Seen and examined by Dr. Ross, no new order given.
[2019-07-31 19:00] VITALS: BP 100/62
[2019-07-31 20:06] VITALS: BP 111/57
[2019-07-31 22:00] VITALS: BP 118/62
[2019-08-01] MEDS: METOCLOPRAMIDE HCL 10 MG/10 ML UDC GT SCH ×4 (00:19→17:25)
[2019-08-01] MEDS: GLUCERNA 1.2 1,000 ML BOTTLE GT SCH ×6 (00:41→20:25)
[2019-08-01] MEDS: OMEPRAZOLE 20 MG CAPSULE.DR GT SCH (05:07)
[2019-08-01] MEDS: LEVOTHYROXINE SODIUM 88 MCG TABLET GT SCH (05:07)
[2019-08-01 08:00] VITALS: BP 131/66
[2019-08-01] MEDS: LEVETIRACETAM SOL (5 ML) 100 MG/ML UDC GT SCH ×2 (08:31→20:25)
[2019-08-01] MEDS: ACIDOPHILUS/BULGARICUS 1 EACH TAB.CHEW GT SCH ×2 (08:31→17:25)
[2019-08-01] MEDS: CARBOXYMETHYLCELLULOSE SODIUM 0.4 ML DROPERETTE EACHEYE SCH (08:31)
[2019-08-01] MEDS: MULTIVIT W/MINERALS 1 TAB TABLET GT SCH (08:31)
[2019-08-01] MEDS: PROSTAT (PYXIS) 30 ML UDC GT SCH ×3 (08:31→17:25)
[2019-08-01] MEDS: ACETAMINOPHEN 650 MG/20 ML UDC- SA PATIENTS-PAIN ONLY GT SCH ×2 (08:31→20:25)
[2019-08-01] MEDS: CHLORHEXIDINE GLUCONATE 15 ML UDC MM SCH ×2 (08:32→20:25)
[2019-08-01] MEDS: ASCORBIC ACID 500 MG TABLET GT SCH (08:32)
[2019-08-01] MEDS: ZINC SULFATE 220 MG CAPSULE GT SCH (08:32)
[2019-08-01] MEDS: HYDROGEN PEROXIDE 480 ML BOTTLE TP SCH ×2 (09:00→21:05)
[2019-08-01] MEDS: NYSTATIN CREAM 15 GM TUBE TP SCH ×2 (09:00→20:25)
[2019-08-01] MEDS: TRIAMCINOLONE ACETONIDE 0.1% CR 15 GM TUBE TP SCH ×2 (09:00→20:25)
[2019-08-01] MEDS: COD LIVER OIL/ZINC OXIDE 120 GM TUBE TP SCH ×2 (09:00→20:25)
[2019-08-01 10:00] VITALS: BP 125/65
--- NOTE | 2019-08-01 12:58 | NUR ---
MDS: This SW completed the SS portion of the annual MDS assessment. The patients responsible alliance party is their daughter/DPOA, Reyna Galindo [phone]. The patient is non-communicative, is non-vent with trach and g-tube feeding (see other disciplines notes for details). The patients last dental exam and cleaning by Dr. Teresa was on 02/13/2019. The patients last optometry exam with Dr. Martins was on 02/01/2019. The patients last podiatry consult with Dr. [place] was on 07/25/2019.
--- NOTE | 2019-08-01 13:30 | NUR ---
Dr. Ross informed that GT ruptured. Replaced with BARD GT 20F/20cc balloon, tolerated well, no bleeding noted. KUB ordered to confirm placement. Daughter Reyna Teresa informed, appreciated the call.
[2019-08-01] MEDS ORDERED: DIATR MEGLU/DIATRIZOATE SODIUM 30 ML BOTTLE (GASTROGRAPHIN) ONE (13:49)
--- NOTE | 2019-08-01 15:00 | NUR ---
WARNER result relayed to Dr. Ross. GT in appropriate position. May resume feeding and meds.
--- NOTE | 2019-08-01 19:49 | NUR ---
RT NOTES PT RECEIVED TRACHED ON COOL AEROSOL. NO SIGNS OF RESP DISTRESS NOTED AT THIS TIME. AIRWAY PATENT AND SECURED. PT SUCTIONED. AMBUBAG AND SPARE TRACH AT HOB. WILL CONT TO MONITOR. Addendum: 08/01/19 at 2310 by GAVIN MARTINEZ RT Amended: Links added.
[2019-08-01 19:58] VITALS: BP 141/74
[2019-08-01 22:00] VITALS: BP 127/77
[2019-08-02] MEDS: METOCLOPRAMIDE HCL 10 MG/10 ML UDC GT SCH ×4 (00:12→18:44)
[2019-08-02] MEDS: GLUCERNA 1.2 1,000 ML BOTTLE GT SCH ×6 (00:12→20:36)
[2019-08-02] MEDS: OMEPRAZOLE 20 MG CAPSULE.DR GT SCH (05:08)
[2019-08-02] MEDS: LEVOTHYROXINE SODIUM 88 MCG TABLET GT SCH (05:08)
[2019-08-02 07:54] VITALS: BP_SYST 110; BP_SYST 122; BP_DIAS 62; BP_DIAS 65
[2019-08-02] MEDS: LEVETIRACETAM SOL (5 ML) 100 MG/ML UDC GT SCH ×2 (08:33→20:36)
[2019-08-02] MEDS: CARBOXYMETHYLCELLULOSE SODIUM 0.4 ML DROPERETTE EACHEYE SCH (08:33)
[2019-08-02] MEDS: ACETAMINOPHEN 650 MG/20 ML UDC- SA PATIENTS-PAIN ONLY GT SCH ×2 (08:33→20:36)
[2019-08-02] MEDS: ZINC SULFATE 220 MG CAPSULE GT SCH (08:33)
[2019-08-02] MEDS: MULTIVIT W/MINERALS 1 TAB TABLET GT SCH (08:33)
[2019-08-02] MEDS: ASCORBIC ACID 500 MG TABLET GT SCH (08:33)
[2019-08-02] MEDS: ACIDOPHILUS/BULGARICUS 1 EACH TAB.CHEW GT SCH ×2 (08:33→16:46)
[2019-08-02] MEDS: CHLORHEXIDINE GLUCONATE 15 ML UDC MM SCH ×2 (08:33→20:36)
[2019-08-02] MEDS: PROSTAT (PYXIS) 30 ML UDC GT SCH ×3 (08:33→16:46)
[2019-08-02] MEDS: COD LIVER OIL/ZINC OXIDE 120 GM TUBE TP SCH ×2 (09:10→21:22)
[2019-08-02] MEDS: TRIAMCINOLONE ACETONIDE 0.1% CR 15 GM TUBE TP SCH ×2 (09:10→21:21)
[2019-08-02] MEDS: NYSTATIN CREAM 15 GM TUBE TP SCH ×2 (09:10→21:22)
[2019-08-02] MEDS: HYDROGEN PEROXIDE 480 ML BOTTLE TP SCH ×2 (09:41→20:10)
[2019-08-02 12:50] VITALS: BP 112/58
[2019-08-02 18:45] VITALS: BP 102/58
--- NOTE | 2019-08-02 20:42 | NUR ---
RT NOTE PT RECEIVED TRACHED ON COOL AEROSOL @ 28%. SX DONE, TRACH SECURED AND PATENT. WATER LEVEL GOOD. NO DISTRESS NOTED AT THIS TIME. WILL MONITOR T/O SHIFT. Addendum: 08/02/19 at 2042 by LETITIA BENITES RT Amended: Links added.
[2019-08-02 20:52] VITALS: BP 118/67
[2019-08-02 22:05] VITALS: BP 115/62
[2019-08-03] MEDS: METOCLOPRAMIDE HCL 10 MG/10 ML UDC GT SCH ×5 (00:09→23:42)
[2019-08-03] MEDS: GLUCERNA 1.2 1,000 ML BOTTLE GT SCH ×6 (00:32→20:44)
[2019-08-03] MEDS: OMEPRAZOLE 20 MG CAPSULE.DR GT SCH (05:28)
[2019-08-03] MEDS: LEVOTHYROXINE SODIUM 88 MCG TABLET GT SCH (05:28)
[2019-08-03 07:37] VITALS: BP 145/65
[2019-08-03] MEDS: HYDROGEN PEROXIDE 480 ML BOTTLE TP SCH (09:00)
[2019-08-03] MEDS: PROSTAT (PYXIS) 30 ML UDC GT SCH ×3 (09:59→17:15)
[2019-08-03] MEDS: ZINC SULFATE 220 MG CAPSULE GT SCH (09:59)
[2019-08-03] MEDS: CHLORHEXIDINE GLUCONATE 15 ML UDC MM SCH ×2 (09:59→20:44)
[2019-08-03] MEDS: ACIDOPHILUS/BULGARICUS 1 EACH TAB.CHEW GT SCH ×2 (09:59→17:15)
[2019-08-03] MEDS: MULTIVIT W/MINERALS 1 TAB TABLET GT SCH (09:59)
[2019-08-03] MEDS: LEVETIRACETAM SOL (5 ML) 100 MG/ML UDC GT SCH ×2 (09:59→20:44)
[2019-08-03] MEDS: ASCORBIC ACID 500 MG TABLET GT SCH (09:59)
[2019-08-03] MEDS: CARBOXYMETHYLCELLULOSE SODIUM 0.4 ML DROPERETTE EACHEYE SCH (09:59)
[2019-08-03 10:00] VITALS: BP 137/82
[2019-08-03] MEDS: ACETAMINOPHEN 650 MG/20 ML UDC- SA PATIENTS-PAIN ONLY GT SCH ×2 (10:00→20:44)
[2019-08-03] MEDS: NYSTATIN CREAM 15 GM TUBE TP SCH ×2 (10:30→20:44)
[2019-08-03] MEDS: TRIAMCINOLONE ACETONIDE 0.1% CR 15 GM TUBE TP SCH ×2 (10:30→20:44)
[2019-08-03] MEDS: COD LIVER OIL/ZINC OXIDE 120 GM TUBE TP SCH ×2 (10:30→20:44)
[2019-08-03 20:23] VITALS: BP 119/60
[2019-08-03 22:00] VITALS: BP 119/60
[2019-08-04] MEDS: GLUCERNA 1.2 1,000 ML BOTTLE GT SCH ×6 (01:31→21:16)
[2019-08-04] MEDS: OMEPRAZOLE 20 MG CAPSULE.DR GT SCH (05:47)
[2019-08-04] MEDS: LEVOTHYROXINE SODIUM 88 MCG TABLET GT SCH (05:47)
[2019-08-04] MEDS: METOCLOPRAMIDE HCL 10 MG/10 ML UDC GT SCH ×4 (05:47→23:58)
[2019-08-04 07:34] VITALS: BP 131/74
[2019-08-04] MEDS: NYSTATIN CREAM 15 GM TUBE TP SCH ×2 (09:00→21:17)
[2019-08-04] MEDS: MULTIVIT W/MINERALS 1 TAB TABLET GT SCH (09:00)
[2019-08-04] MEDS: CARBOXYMETHYLCELLULOSE SODIUM 0.4 ML DROPERETTE EACHEYE SCH (09:00)
[2019-08-04] MEDS: LEVETIRACETAM SOL (5 ML) 100 MG/ML UDC GT SCH ×2 (09:00→21:16)
[2019-08-04] MEDS: COD LIVER OIL/ZINC OXIDE 120 GM TUBE TP SCH ×2 (09:00→21:17)
[2019-08-04] MEDS: ZINC SULFATE 220 MG CAPSULE GT SCH (09:00)
[2019-08-04] MEDS: ACIDOPHILUS/BULGARICUS 1 EACH TAB.CHEW GT SCH ×2 (09:00→16:47)
[2019-08-04] MEDS: HYDROGEN PEROXIDE 480 ML BOTTLE TP SCH ×2 (09:00→21:14)
[2019-08-04] MEDS: PROSTAT (PYXIS) 30 ML UDC GT SCH ×3 (09:00→16:47)
[2019-08-04] MEDS: CHLORHEXIDINE GLUCONATE 15 ML UDC MM SCH ×2 (09:00→21:17)
[2019-08-04] MEDS: TRIAMCINOLONE ACETONIDE 0.1% CR 15 GM TUBE TP SCH ×2 (09:00→21:17)
[2019-08-04] MEDS: ACETAMINOPHEN 650 MG/20 ML UDC- SA PATIENTS-PAIN ONLY GT SCH ×2 (09:00→21:17)
[2019-08-04] MEDS: ASCORBIC ACID 500 MG TABLET GT SCH (09:00)
[2019-08-04 10:23] VITALS: BP 112/68
[2019-08-04 19:48] VITALS: BP 134/76
[2019-08-04 22:05] VITALS: BP 134/76
[2019-08-05] MEDS: GLUCERNA 1.2 1,000 ML BOTTLE GT SCH ×6 (01:00→21:30)
[2019-08-05] MEDS: LEVOTHYROXINE SODIUM 88 MCG TABLET GT SCH (06:00)
[2019-08-05] MEDS: METOCLOPRAMIDE HCL 10 MG/10 ML UDC GT SCH ×4 (06:00→23:42)
[2019-08-05] MEDS: OMEPRAZOLE 20 MG CAPSULE.DR GT SCH (06:00)
[2019-08-05 08:04] VITALS: BP 114/72
[2019-08-05] MEDS: LEVETIRACETAM SOL (5 ML) 100 MG/ML UDC GT SCH ×2 (09:00→21:30)
[2019-08-05] MEDS: CHLORHEXIDINE GLUCONATE 15 ML UDC MM SCH ×2 (09:00→21:30)
[2019-08-05] MEDS: CARBOXYMETHYLCELLULOSE SODIUM 0.4 ML DROPERETTE EACHEYE SCH (09:00)
[2019-08-05] MEDS: TRIAMCINOLONE ACETONIDE 0.1% CR 15 GM TUBE TP SCH ×2 (09:00→21:30)
[2019-08-05] MEDS: HYDROGEN PEROXIDE 480 ML BOTTLE TP SCH ×2 (09:00→21:00)
[2019-08-05] MEDS: ACIDOPHILUS/BULGARICUS 1 EACH TAB.CHEW GT SCH ×2 (09:00→17:16)
[2019-08-05] MEDS: MULTIVIT W/MINERALS 1 TAB TABLET GT SCH (09:00)
[2019-08-05] MEDS: ACETAMINOPHEN 650 MG/20 ML UDC- SA PATIENTS-PAIN ONLY GT SCH ×2 (09:00→21:30)
[2019-08-05] MEDS: PROSTAT (PYXIS) 30 ML UDC GT SCH ×3 (09:00→17:16)
[2019-08-05] MEDS: COD LIVER OIL/ZINC OXIDE 120 GM TUBE TP SCH ×2 (09:00→21:31)
[2019-08-05] MEDS: ASCORBIC ACID 500 MG TABLET GT SCH (09:00)
[2019-08-05] MEDS: NYSTATIN CREAM 15 GM TUBE TP SCH ×2 (09:00→21:31)
[2019-08-05] MEDS: ZINC SULFATE 220 MG CAPSULE GT SCH (09:00)
[2019-08-05 14:42] VITALS: BP 115/70
[2019-08-05 20:29] VITALS: BP 126/64
[2019-08-05 22:15] VITALS: BP 126/64
[2019-08-06] MEDS: GLUCERNA 1.2 1,000 ML BOTTLE GT SCH ×6 (01:00→21:10)
[2019-08-06] MEDS: LEVOTHYROXINE SODIUM 88 MCG TABLET GT SCH (05:44)
[2019-08-06] MEDS: METOCLOPRAMIDE HCL 10 MG/10 ML UDC GT SCH ×4 (05:44→23:23)
[2019-08-06] MEDS: OMEPRAZOLE 20 MG CAPSULE.DR GT SCH (05:44)
[2019-08-06 07:45] VITALS: BP 105/62
[2019-08-06] MEDS: HYDROGEN PEROXIDE 480 ML BOTTLE TP SCH ×2 (08:27→21:00)
[2019-08-06] MEDS: CHLORHEXIDINE GLUCONATE 15 ML UDC MM SCH ×2 (09:46→21:10)
[2019-08-06] MEDS: PROSTAT (PYXIS) 30 ML UDC GT SCH ×3 (09:46→16:18)
[2019-08-06] MEDS: CARBOXYMETHYLCELLULOSE SODIUM 0.4 ML DROPERETTE EACHEYE SCH (09:46)
[2019-08-06] MEDS: ZINC SULFATE 220 MG CAPSULE GT SCH (09:46)
[2019-08-06] MEDS: ACIDOPHILUS/BULGARICUS 1 EACH TAB.CHEW GT SCH ×2 (09:46→16:18)
[2019-08-06] MEDS: ACETAMINOPHEN 650 MG/20 ML UDC- SA PATIENTS-PAIN ONLY GT SCH ×2 (09:46→21:10)
[2019-08-06] MEDS: LEVETIRACETAM SOL (5 ML) 100 MG/ML UDC GT SCH ×2 (09:46→21:10)
[2019-08-06] MEDS: ASCORBIC ACID 500 MG TABLET GT SCH (09:46)
[2019-08-06] MEDS: MULTIVIT W/MINERALS 1 TAB TABLET GT SCH (09:46)
[2019-08-06] MEDS: NYSTATIN CREAM 15 GM TUBE TP SCH ×2 (10:15→21:10)
[2019-08-06] MEDS: COD LIVER OIL/ZINC OXIDE 120 GM TUBE TP SCH ×2 (10:15→21:10)
[2019-08-06] MEDS: TRIAMCINOLONE ACETONIDE 0.1% CR 15 GM TUBE TP SCH ×2 (10:15→21:10)
[2019-08-06 12:10] VITALS: BP 102/52
[2019-08-06 18:38] VITALS: BP 117/60
[2019-08-06 20:55] VITALS: BP 118/69
[2019-08-06 22:03] VITALS: BP 117/60
[2019-08-07] MEDS: GLUCERNA 1.2 1,000 ML BOTTLE GT SCH ×6 (01:00→21:27)
[2019-08-07] MEDS: OMEPRAZOLE 20 MG CAPSULE.DR GT SCH (06:17)
[2019-08-07] MEDS: LEVOTHYROXINE SODIUM 88 MCG TABLET GT SCH (06:17)
[2019-08-07] MEDS: METOCLOPRAMIDE HCL 10 MG/10 ML UDC GT SCH ×4 (06:17→23:50)
[2019-08-07 07:53] VITALS: BP 111/62
[2019-08-07 08:00] VITALS: BP 111/62
[2019-08-07] MEDS: CARBOXYMETHYLCELLULOSE SODIUM 0.4 ML DROPERETTE EACHEYE SCH (08:39)
[2019-08-07] MEDS: LEVETIRACETAM SOL (5 ML) 100 MG/ML UDC GT SCH ×2 (08:39→21:27)
[2019-08-07] MEDS: PROSTAT (PYXIS) 30 ML UDC GT SCH ×3 (08:39→17:27)
[2019-08-07] MEDS: MULTIVIT W/MINERALS 1 TAB TABLET GT SCH (08:39)
[2019-08-07] MEDS: ACIDOPHILUS/BULGARICUS 1 EACH TAB.CHEW GT SCH ×2 (08:39→17:27)
[2019-08-07] MEDS: CHLORHEXIDINE GLUCONATE 15 ML UDC MM SCH ×2 (08:40→21:27)
[2019-08-07] MEDS: ZINC SULFATE 220 MG CAPSULE GT SCH (08:40)
[2019-08-07] MEDS: ACETAMINOPHEN 650 MG/20 ML UDC- SA PATIENTS-PAIN ONLY GT SCH ×2 (08:40→21:27)
[2019-08-07] MEDS: ASCORBIC ACID 500 MG TABLET GT SCH (08:40)
[2019-08-07] MEDS: HYDROGEN PEROXIDE 480 ML BOTTLE TP SCH ×2 (08:56→21:00)
[2019-08-07] MEDS: COD LIVER OIL/ZINC OXIDE 120 GM TUBE TP SCH ×2 (09:40→21:27)
[2019-08-07] MEDS: TRIAMCINOLONE ACETONIDE 0.1% CR 15 GM TUBE TP SCH ×2 (09:40→21:27)
[2019-08-07] MEDS: NYSTATIN CREAM 15 GM TUBE TP SCH ×2 (09:40→21:27)
[2019-08-07 19:47] VITALS: BP 130/66
[2019-08-07 22:37] VITALS: BP 130/66
[2019-08-08] MEDS: GLUCERNA 1.2 1,000 ML BOTTLE GT SCH ×6 (01:00→20:59)
[2019-08-08] MEDS: METOCLOPRAMIDE HCL 10 MG/10 ML UDC GT SCH ×4 (05:27→23:44)
[2019-08-08] MEDS: LEVOTHYROXINE SODIUM 88 MCG TABLET GT SCH (05:27)
[2019-08-08] MEDS: OMEPRAZOLE 20 MG CAPSULE.DR GT SCH (05:27)
[2019-08-08 07:28] VITALS: BP 139/70
[2019-08-08] MEDS: MULTIVIT W/MINERALS 1 TAB TABLET GT SCH (08:36)
[2019-08-08] MEDS: ACIDOPHILUS/BULGARICUS 1 EACH TAB.CHEW GT SCH ×2 (08:36→17:34)
[2019-08-08] MEDS: LEVETIRACETAM SOL (5 ML) 100 MG/ML UDC GT SCH ×2 (08:36→20:59)
[2019-08-08] MEDS: CARBOXYMETHYLCELLULOSE SODIUM 0.4 ML DROPERETTE EACHEYE SCH (08:36)
[2019-08-08] MEDS: PROSTAT (PYXIS) 30 ML UDC GT SCH ×3 (08:36→17:34)
[2019-08-08] MEDS: CHLORHEXIDINE GLUCONATE 15 ML UDC MM SCH ×2 (08:37→21:00)
[2019-08-08] MEDS: ZINC SULFATE 220 MG CAPSULE GT SCH (08:37)
[2019-08-08] MEDS: ACETAMINOPHEN 650 MG/20 ML UDC- SA PATIENTS-PAIN ONLY GT SCH ×2 (08:37→21:00)
[2019-08-08] MEDS: ASCORBIC ACID 500 MG TABLET GT SCH (08:37)
[2019-08-08] MEDS: HYDROGEN PEROXIDE 480 ML BOTTLE TP SCH ×2 (09:00→21:10)
[2019-08-08] MEDS: TRIAMCINOLONE ACETONIDE 0.1% CR 15 GM TUBE TP SCH ×2 (09:10→21:00)
[2019-08-08] MEDS: COD LIVER OIL/ZINC OXIDE 120 GM TUBE TP SCH ×2 (09:10→21:00)
[2019-08-08] MEDS: NYSTATIN CREAM 15 GM TUBE TP SCH ×2 (09:10→21:00)
[2019-08-08 12:00] VITALS: BP 102/60
[2019-08-08 18:28] VITALS: BP 110/65
[2019-08-08 20:02] VITALS: BP 136/79
[2019-08-08 23:51] VITALS: BP 136/79
[2019-08-09] MEDS: GLUCERNA 1.2 1,000 ML BOTTLE GT SCH ×6 (01:00→20:57)
[2019-08-09] MEDS: LEVOTHYROXINE SODIUM 88 MCG TABLET GT SCH (05:27)
[2019-08-09] MEDS: OMEPRAZOLE 20 MG CAPSULE.DR GT SCH (05:27)
[2019-08-09] MEDS: METOCLOPRAMIDE HCL 10 MG/10 ML UDC GT SCH ×4 (05:27→23:19)
[2019-08-09 07:19] VITALS: BP 127/64
[2019-08-09] MEDS: CARBOXYMETHYLCELLULOSE SODIUM 0.4 ML DROPERETTE EACHEYE SCH (08:33)
[2019-08-09] MEDS: LEVETIRACETAM SOL (5 ML) 100 MG/ML UDC GT SCH ×2 (08:33→20:57)
[2019-08-09] MEDS: PROSTAT (PYXIS) 30 ML UDC GT SCH ×3 (08:33→16:29)
[2019-08-09] MEDS: ACIDOPHILUS/BULGARICUS 1 EACH TAB.CHEW GT SCH ×2 (08:33→16:29)
[2019-08-09] MEDS: ACETAMINOPHEN 650 MG/20 ML UDC- SA PATIENTS-PAIN ONLY GT SCH ×2 (08:34→20:58)
[2019-08-09] MEDS: ZINC SULFATE 220 MG CAPSULE GT SCH (08:34)
[2019-08-09] MEDS: ASCORBIC ACID 500 MG TABLET GT SCH (08:34)
[2019-08-09] MEDS: MULTIVIT W/MINERALS 1 TAB TABLET GT SCH (08:34)
[2019-08-09] MEDS: CHLORHEXIDINE GLUCONATE 15 ML UDC MM SCH ×2 (08:34→20:58)
[2019-08-09] MEDS: NYSTATIN CREAM 15 GM TUBE TP SCH ×2 (08:35→20:58)
[2019-08-09] MEDS: COD LIVER OIL/ZINC OXIDE 120 GM TUBE TP SCH ×2 (08:35→20:58)
[2019-08-09] MEDS: TRIAMCINOLONE ACETONIDE 0.1% CR 15 GM TUBE TP SCH ×2 (08:35→20:58)
[2019-08-09] MEDS: HYDROGEN PEROXIDE 480 ML BOTTLE TP SCH ×2 (08:57→20:11)
[2019-08-09 14:32] VITALS: BP 130/68
[2019-08-09 19:47] VITALS: BP 122/71
[2019-08-09 22:14] VITALS: BP 122/71
--- NOTE | 2019-08-09 23:13 | NUR ---
RT NOTE PT RECEIVED TRACHED ON COOL AEROSOL @ 28%. SX DONE, TRACH SECURED AND PATENT. WATER LEVEL GOOD. NO DISTRESS NOTED AT THIS TIME. WILL MONITOR T/O SHIFT. Addendum: 08/09/19 at 2320 by LETITIA BENITES RT Amended: Links added.
[2019-08-10] MEDS: GLUCERNA 1.2 1,000 ML BOTTLE GT SCH ×6 (01:00→20:30)
[2019-08-10] MEDS: METOCLOPRAMIDE HCL 10 MG/10 ML UDC GT SCH ×4 (05:20→23:08)
[2019-08-10] MEDS: LEVOTHYROXINE SODIUM 88 MCG TABLET GT SCH (05:20)
[2019-08-10] MEDS: OMEPRAZOLE 20 MG CAPSULE.DR GT SCH (05:20)
[2019-08-10 08:05] VITALS: BP 125/81
[2019-08-10] MEDS: HYDROGEN PEROXIDE 480 ML BOTTLE TP SCH ×2 (09:00→21:00)
[2019-08-10] MEDS: LEVETIRACETAM SOL (5 ML) 100 MG/ML UDC GT SCH ×2 (09:41→20:30)
[2019-08-10] MEDS: PROSTAT (PYXIS) 30 ML UDC GT SCH ×3 (09:41→16:25)
[2019-08-10] MEDS: MULTIVIT W/MINERALS 1 TAB TABLET GT SCH (09:41)
[2019-08-10] MEDS: CHLORHEXIDINE GLUCONATE 15 ML UDC MM SCH ×2 (09:41→20:30)
[2019-08-10] MEDS: ASCORBIC ACID 500 MG TABLET GT SCH (09:41)
[2019-08-10] MEDS: ACIDOPHILUS/BULGARICUS 1 EACH TAB.CHEW GT SCH ×2 (09:41→16:25)
[2019-08-10] MEDS: ACETAMINOPHEN 650 MG/20 ML UDC- SA PATIENTS-PAIN ONLY GT SCH ×2 (09:41→20:30)
[2019-08-10] MEDS: ZINC SULFATE 220 MG CAPSULE GT SCH (09:41)
[2019-08-10] MEDS: CARBOXYMETHYLCELLULOSE SODIUM 0.4 ML DROPERETTE EACHEYE SCH (09:41)
[2019-08-10] MEDS: COD LIVER OIL/ZINC OXIDE 120 GM TUBE TP SCH ×2 (09:42→20:30)
[2019-08-10] MEDS: NYSTATIN CREAM 15 GM TUBE TP SCH ×2 (09:42→20:30)
[2019-08-10] MEDS: TRIAMCINOLONE ACETONIDE 0.1% CR 15 GM TUBE TP SCH ×2 (09:42→20:30)
[2019-08-10 10:00] VITALS: BP 127/73
--- NOTE | 2019-08-10 20:08 | NUR ---
RT pt received on CA at 28%. sofiya bright 6. spare trach at bedside. ambu bag at hob. hob at 30 degrees. small thick secretions. no respiratory distress. no sob. no changes at this time. will continue to monitor. Addendum: 08/11/19 at 0554 by MONIQUE HOUSER RT Amended: Links added.
[2019-08-10 20:10] VITALS: BP 127/76
[2019-08-11] MEDS: GLUCERNA 1.2 1,000 ML BOTTLE GT SCH ×6 (01:00→21:14)
[2019-08-11] MEDS: METOCLOPRAMIDE HCL 10 MG/10 ML UDC GT SCH ×4 (05:03→23:31)
[2019-08-11] MEDS: LEVOTHYROXINE SODIUM 88 MCG TABLET GT SCH (05:03)
[2019-08-11] MEDS: OMEPRAZOLE 20 MG CAPSULE.DR GT SCH (05:03)
[2019-08-11 07:39] VITALS: BP 126/58
[2019-08-11] MEDS: ACETAMINOPHEN 650 MG/20 ML UDC- SA PATIENTS-PAIN ONLY GT SCH ×2 (09:00→21:14)
[2019-08-11] MEDS: NYSTATIN CREAM 15 GM TUBE TP SCH ×2 (09:00→21:14)
[2019-08-11] MEDS: PROSTAT (PYXIS) 30 ML UDC GT SCH ×3 (09:00→17:29)
[2019-08-11] MEDS: ASCORBIC ACID 500 MG TABLET GT SCH (09:00)
[2019-08-11] MEDS: ZINC SULFATE 220 MG CAPSULE GT SCH (09:00)
[2019-08-11] MEDS: TRIAMCINOLONE ACETONIDE 0.1% CR 15 GM TUBE TP SCH ×2 (09:00→21:14)
[2019-08-11] MEDS: CHLORHEXIDINE GLUCONATE 15 ML UDC MM SCH ×2 (09:00→21:14)
[2019-08-11] MEDS: HYDROGEN PEROXIDE 480 ML BOTTLE TP SCH ×2 (09:00→21:00)
[2019-08-11] MEDS: LEVETIRACETAM SOL (5 ML) 100 MG/ML UDC GT SCH ×2 (09:00→21:14)
[2019-08-11] MEDS: CARBOXYMETHYLCELLULOSE SODIUM 0.4 ML DROPERETTE EACHEYE SCH (09:00)
[2019-08-11] MEDS: MULTIVIT W/MINERALS 1 TAB TABLET GT SCH (09:00)
[2019-08-11] MEDS: ACIDOPHILUS/BULGARICUS 1 EACH TAB.CHEW GT SCH ×2 (09:00→17:29)
[2019-08-11] MEDS: COD LIVER OIL/ZINC OXIDE 120 GM TUBE TP SCH ×2 (09:00→21:14)
[2019-08-11 15:40] VITALS: BP 108/69
[2019-08-11 19:49] VITALS: BP 140/79
[2019-08-11 22:00] VITALS: BP 140/79
[2019-08-12] MEDS: GLUCERNA 1.2 1,000 ML BOTTLE GT SCH ×6 (01:00→20:13)
[2019-08-12] MEDS: METOCLOPRAMIDE HCL 10 MG/10 ML UDC GT SCH ×3 (05:10→18:25)
[2019-08-12] MEDS: LEVOTHYROXINE SODIUM 88 MCG TABLET GT SCH (05:10)
[2019-08-12] MEDS: OMEPRAZOLE 20 MG CAPSULE.DR GT SCH (05:10)
[2019-08-12 07:52] VITALS: BP 128/73
[2019-08-12] MEDS: LEVETIRACETAM SOL (5 ML) 100 MG/ML UDC GT SCH ×2 (08:36→20:13)
[2019-08-12] MEDS: ACIDOPHILUS/BULGARICUS 1 EACH TAB.CHEW GT SCH ×2 (08:36→16:32)
[2019-08-12] MEDS: PROSTAT (PYXIS) 30 ML UDC GT SCH ×3 (08:36→16:32)
[2019-08-12] MEDS: CARBOXYMETHYLCELLULOSE SODIUM 0.4 ML DROPERETTE EACHEYE SCH (08:36)
[2019-08-12] MEDS: ACETAMINOPHEN 650 MG/20 ML UDC- SA PATIENTS-PAIN ONLY GT SCH ×2 (08:37→20:19)
[2019-08-12] MEDS: ZINC SULFATE 220 MG CAPSULE GT SCH (08:37)
[2019-08-12] MEDS: ASCORBIC ACID 500 MG TABLET GT SCH (08:37)
[2019-08-12] MEDS: MULTIVIT W/MINERALS 1 TAB TABLET GT SCH (08:37)
[2019-08-12] MEDS: CHLORHEXIDINE GLUCONATE 15 ML UDC MM SCH ×2 (08:37→20:19)
[2019-08-12] MEDS: HYDROGEN PEROXIDE 480 ML BOTTLE TP SCH ×2 (09:00→21:00)
[2019-08-12] MEDS: COD LIVER OIL/ZINC OXIDE 120 GM TUBE TP SCH ×2 (09:10→20:19)
[2019-08-12] MEDS: NYSTATIN CREAM 15 GM TUBE TP SCH ×2 (09:10→20:19)
[2019-08-12] MEDS: TRIAMCINOLONE ACETONIDE 0.1% CR 15 GM TUBE TP SCH ×2 (09:10→20:19)
[2019-08-12 12:20] VITALS: BP 112/75
[2019-08-12 18:27] VITALS: BP 127/72
[2019-08-12 19:46] VITALS: BP 124/67
[2019-08-12 22:25] VITALS: BP 124/67
[2019-08-13] MEDS: METOCLOPRAMIDE HCL 10 MG/10 ML UDC GT SCH ×5 (00:17→23:16)
[2019-08-13] MEDS: GLUCERNA 1.2 1,000 ML BOTTLE GT SCH ×6 (00:17→20:04)
[2019-08-13] MEDS: OMEPRAZOLE 20 MG CAPSULE.DR GT SCH (05:10)
[2019-08-13] MEDS: LEVOTHYROXINE SODIUM 88 MCG TABLET GT SCH (05:10)
[2019-08-13 07:34] VITALS: BP 124/63
[2019-08-13] MEDS: ACETAMINOPHEN 650 MG/20 ML UDC- SA PATIENTS-PAIN ONLY GT SCH ×2 (08:14→20:05)
[2019-08-13] MEDS: CARBOXYMETHYLCELLULOSE SODIUM 0.4 ML DROPERETTE EACHEYE SCH (08:14)
[2019-08-13] MEDS: PROSTAT (PYXIS) 30 ML UDC GT SCH ×3 (08:14→16:44)
[2019-08-13] MEDS: ACIDOPHILUS/BULGARICUS 1 EACH TAB.CHEW GT SCH ×2 (08:14→16:44)
[2019-08-13] MEDS: CHLORHEXIDINE GLUCONATE 15 ML UDC MM SCH ×2 (08:14→20:05)
[2019-08-13] MEDS: MULTIVIT W/MINERALS 1 TAB TABLET GT SCH (08:14)
[2019-08-13] MEDS: ASCORBIC ACID 500 MG TABLET GT SCH (08:14)
[2019-08-13] MEDS: ZINC SULFATE 220 MG CAPSULE GT SCH (08:14)
[2019-08-13] MEDS: LEVETIRACETAM SOL (5 ML) 100 MG/ML UDC GT SCH ×2 (08:14→20:04)
[2019-08-13] MEDS: TRIAMCINOLONE ACETONIDE 0.1% CR 15 GM TUBE TP SCH ×2 (09:00→21:07)
[2019-08-13] MEDS: NYSTATIN CREAM 15 GM TUBE TP SCH ×2 (09:00→21:07)
[2019-08-13] MEDS: COD LIVER OIL/ZINC OXIDE 120 GM TUBE TP SCH ×2 (09:00→21:07)
[2019-08-13 12:10] VITALS: BP 112/55
--- NOTE | 2019-08-13 14:15 | NUR ---
Patient/ Family Video Chat: This SW facilitated video call with the patients daughter, Marielena Miller [phone] via Zoom application. Marielena Miller stated she was very happy to be able to see her mom. SW will continue efforts to promote patient socialization.
[2019-08-13 18:50] VITALS: BP 122/75
[2019-08-13] MEDS: HYDROGEN PEROXIDE 480 ML BOTTLE TP SCH (20:10)
[2019-08-13 20:15] VITALS: BP 133/76
--- NOTE | 2019-08-13 20:35 | NUR ---
RT NOTE PT RECEIVED TRACHED ON COOL AEROSOL @ 28%. SX DONE, TRACH SECURED AND PATENT. WATER LEVEL GOOD. NO DISTRESS NOTED AT THIS TIME. WILL MONITOR T/O SHIFT. Addendum: 08/13/19 at 2034 by LETITIA BENITES RT Amended: Links added.
[2019-08-13 22:30] VITALS: BP 133/76
[2019-08-14] MEDS: GLUCERNA 1.2 1,000 ML BOTTLE GT SCH ×6 (00:21→20:19)
[2019-08-14] MEDS: LEVOTHYROXINE SODIUM 88 MCG TABLET GT SCH (05:18)
[2019-08-14] MEDS: METOCLOPRAMIDE HCL 10 MG/10 ML UDC GT SCH ×3 (05:18→18:06)
[2019-08-14] MEDS: OMEPRAZOLE 20 MG CAPSULE.DR GT SCH (05:18)
[2019-08-14 08:00] VITALS: BP 129/69
[2019-08-14] MEDS: PROSTAT (PYXIS) 30 ML UDC GT SCH ×3 (09:00→16:46)
[2019-08-14] MEDS: ZINC SULFATE 220 MG CAPSULE GT SCH (09:00)
[2019-08-14] MEDS: CARBOXYMETHYLCELLULOSE SODIUM 0.4 ML DROPERETTE EACHEYE SCH (09:00)
[2019-08-14] MEDS: LEVETIRACETAM SOL (5 ML) 100 MG/ML UDC GT SCH ×2 (09:00→20:19)
[2019-08-14] MEDS: TRIAMCINOLONE ACETONIDE 0.1% CR 15 GM TUBE TP SCH ×2 (09:00→21:10)
[2019-08-14] MEDS: ACETAMINOPHEN 650 MG/20 ML UDC- SA PATIENTS-PAIN ONLY GT SCH ×2 (09:00→20:20)
[2019-08-14] MEDS: ACIDOPHILUS/BULGARICUS 1 EACH TAB.CHEW GT SCH ×2 (09:00→16:46)
[2019-08-14] MEDS: CHLORHEXIDINE GLUCONATE 15 ML UDC MM SCH ×2 (09:00→20:20)
[2019-08-14] MEDS: COD LIVER OIL/ZINC OXIDE 120 GM TUBE TP SCH ×2 (09:00→21:10)
[2019-08-14] MEDS: NYSTATIN CREAM 15 GM TUBE TP SCH ×2 (09:00→21:10)
[2019-08-14] MEDS: MULTIVIT W/MINERALS 1 TAB TABLET GT SCH (09:00)
[2019-08-14] MEDS: ASCORBIC ACID 500 MG TABLET GT SCH (09:00)
[2019-08-14] MEDS: HYDROGEN PEROXIDE 480 ML BOTTLE TP SCH ×2 (09:37→21:38)
[2019-08-14 14:45] VITALS: BP 129/69
--- NOTE | 2019-08-14 16:01 | NUR ---
Patient/ Family Video Chat: SW received a call from the patients daughter, Marielena Miller [phone] requesting Zoom video call with her mother.This SW facilitated video call between family and patient. The patient presented laying in bed sleeping. Marielena Miller expressed gratitude for being able to see her mom. SW will continue to facilitate video calls as needed.
[2019-08-14 19:59] VITALS: BP 120/75
[2019-08-14 22:17] VITALS: BP 120/66
[2019-08-15] MEDS: GLUCERNA 1.2 1,000 ML BOTTLE GT SCH ×6 (00:10→21:21)
[2019-08-15] MEDS: METOCLOPRAMIDE HCL 10 MG/10 ML UDC GT SCH ×5 (00:10→23:57)
[2019-08-15] MEDS: OMEPRAZOLE 20 MG CAPSULE.DR GT SCH (05:03)
[2019-08-15] MEDS: LEVOTHYROXINE SODIUM 88 MCG TABLET GT SCH (05:03)
[2019-08-15 07:28] VITALS: BP 145/59
[2019-08-15] MEDS: HYDROGEN PEROXIDE 480 ML BOTTLE TP SCH ×2 (09:13→21:12)
[2019-08-15] MEDS: LEVETIRACETAM SOL (5 ML) 100 MG/ML UDC GT SCH ×2 (09:37→21:21)
[2019-08-15] MEDS: PROSTAT (PYXIS) 30 ML UDC GT SCH ×3 (09:37→16:19)
[2019-08-15] MEDS: MULTIVIT W/MINERALS 1 TAB TABLET GT SCH (09:37)
[2019-08-15] MEDS: CARBOXYMETHYLCELLULOSE SODIUM 0.4 ML DROPERETTE EACHEYE SCH (09:37)
[2019-08-15] MEDS: ACIDOPHILUS/BULGARICUS 1 EACH TAB.CHEW GT SCH ×2 (09:37→16:19)
[2019-08-15] MEDS: CHLORHEXIDINE GLUCONATE 15 ML UDC MM SCH ×2 (09:38→21:21)
[2019-08-15] MEDS: COD LIVER OIL/ZINC OXIDE 120 GM TUBE TP SCH ×2 (09:38→21:21)
[2019-08-15] MEDS: TRIAMCINOLONE ACETONIDE 0.1% CR 15 GM TUBE TP SCH ×2 (09:38→21:21)
[2019-08-15] MEDS: ZINC SULFATE 220 MG CAPSULE GT SCH (09:38)
[2019-08-15] MEDS: ASCORBIC ACID 500 MG TABLET GT SCH (09:38)
[2019-08-15] MEDS: NYSTATIN CREAM 15 GM TUBE TP SCH ×2 (09:38→21:21)
[2019-08-15] MEDS: ACETAMINOPHEN 650 MG/20 ML UDC- SA PATIENTS-PAIN ONLY GT SCH ×2 (09:38→21:21)
--- NOTE | 2019-08-15 14:31 | NUR ---
[facility] Actions Communication Systems: JOSSE emailed the pt.s CINDY, Reyna Galindo the [facility] Consent Form and the [facility] Family Information sheet to [email or web address] JOSSE will follow up and call Reyna to get Verbal consent if he is agreeable to plan.
[2019-08-15 16:05] VITALS: BP 145/59
[2019-08-15 19:54] VITALS: BP 130/65
[2019-08-15 22:00] VITALS: BP 130/65
[2019-08-16] MEDS: GLUCERNA 1.2 1,000 ML BOTTLE GT SCH ×6 (01:00→21:12)
[2019-08-16] MEDS: METOCLOPRAMIDE HCL 10 MG/10 ML UDC GT SCH ×4 (05:04→23:11)
[2019-08-16] MEDS: LEVOTHYROXINE SODIUM 88 MCG TABLET GT SCH (05:04)
[2019-08-16] MEDS: OMEPRAZOLE 20 MG CAPSULE.DR GT SCH (05:04)
[2019-08-16 07:41] VITALS: BP 130/59
[2019-08-16] MEDS: CARBOXYMETHYLCELLULOSE SODIUM 0.4 ML DROPERETTE EACHEYE SCH (09:00)
[2019-08-16] MEDS: ASCORBIC ACID 500 MG TABLET GT SCH (09:00)
[2019-08-16] MEDS: TRIAMCINOLONE ACETONIDE 0.1% CR 15 GM TUBE TP SCH ×2 (09:00→21:12)
[2019-08-16] MEDS: HYDROGEN PEROXIDE 480 ML BOTTLE TP SCH ×2 (09:00→21:29)
[2019-08-16] MEDS: ACETAMINOPHEN 650 MG/20 ML UDC- SA PATIENTS-PAIN ONLY GT SCH ×2 (09:00→21:12)
[2019-08-16] MEDS: NYSTATIN CREAM 15 GM TUBE TP SCH ×2 (09:00→21:13)
[2019-08-16] MEDS: COD LIVER OIL/ZINC OXIDE 120 GM TUBE TP SCH ×2 (09:00→21:13)
[2019-08-16] MEDS: LEVETIRACETAM SOL (5 ML) 100 MG/ML UDC GT SCH ×2 (09:00→21:12)
[2019-08-16] MEDS: ACIDOPHILUS/BULGARICUS 1 EACH TAB.CHEW GT SCH ×2 (09:00→17:07)
[2019-08-16] MEDS: CHLORHEXIDINE GLUCONATE 15 ML UDC MM SCH ×2 (09:00→21:12)
[2019-08-16] MEDS: PROSTAT (PYXIS) 30 ML UDC GT SCH ×3 (09:00→17:07)
[2019-08-16] MEDS: ZINC SULFATE 220 MG CAPSULE GT SCH (09:00)
[2019-08-16] MEDS: MULTIVIT W/MINERALS 1 TAB TABLET GT SCH (09:00)
[2019-08-16 17:42] VITALS: BP 130/59
[2019-08-16 19:45] VITALS: BP 126/73
[2019-08-16 22:20] VITALS: BP 130/65
[2019-08-17] MEDS: GLUCERNA 1.2 1,000 ML BOTTLE GT SCH ×6 (01:00→21:02)
[2019-08-17] MEDS: OMEPRAZOLE 20 MG CAPSULE.DR GT SCH (05:25)
[2019-08-17] MEDS: METOCLOPRAMIDE HCL 10 MG/10 ML UDC GT SCH ×3 (05:25→17:01)
[2019-08-17] MEDS: LEVOTHYROXINE SODIUM 88 MCG TABLET GT SCH (05:26)
[2019-08-17 07:39] VITALS: BP 124/64
[2019-08-17] MEDS: HYDROGEN PEROXIDE 480 ML BOTTLE TP SCH ×2 (09:20→21:40)
[2019-08-17] MEDS: CHLORHEXIDINE GLUCONATE 15 ML UDC MM SCH ×2 (09:57→21:03)
[2019-08-17] MEDS: CARBOXYMETHYLCELLULOSE SODIUM 0.4 ML DROPERETTE EACHEYE SCH (09:57)
[2019-08-17] MEDS: ACETAMINOPHEN 650 MG/20 ML UDC- SA PATIENTS-PAIN ONLY GT SCH ×2 (09:57→21:03)
[2019-08-17] MEDS: ZINC SULFATE 220 MG CAPSULE GT SCH (09:57)
[2019-08-17] MEDS: LEVETIRACETAM SOL (5 ML) 100 MG/ML UDC GT SCH ×2 (09:57→21:02)
[2019-08-17] MEDS: MULTIVIT W/MINERALS 1 TAB TABLET GT SCH (09:57)
[2019-08-17] MEDS: ASCORBIC ACID 500 MG TABLET GT SCH (09:57)
[2019-08-17] MEDS: PROSTAT (PYXIS) 30 ML UDC GT SCH ×3 (09:57→17:01)
[2019-08-17] MEDS: ACIDOPHILUS/BULGARICUS 1 EACH TAB.CHEW GT SCH ×2 (09:57→17:01)
[2019-08-17 10:00] VITALS: BP 124/64
[2019-08-17] MEDS: COD LIVER OIL/ZINC OXIDE 120 GM TUBE TP SCH ×2 (10:57→21:03)
--- NOTE | 2019-08-17 17:27 | NUR ---
RT NOTE PATIENT RECEIVED ON C/A. TRACH TUBE IN PLACE, PATENT, AND SECURED WITH TRACH TIE. AMBU BAG AND BACK UP TRACH BY THE BEDSIDE. NO DISTRESS AT THIS TIME. MONITOR THROUGHOUT SHIFT.
[2019-08-17 19:42] VITALS: BP 128/71
[2019-08-17 22:06] VITALS: BP 128/71
[2019-08-18] MEDS: METOCLOPRAMIDE HCL 10 MG/10 ML UDC GT SCH ×5 (00:02→23:12)
[2019-08-18] MEDS: GLUCERNA 1.2 1,000 ML BOTTLE GT SCH ×6 (00:27→20:49)
[2019-08-18] MEDS: OMEPRAZOLE 20 MG CAPSULE.DR GT SCH (05:37)
[2019-08-18] MEDS: LEVOTHYROXINE SODIUM 88 MCG TABLET GT SCH (05:37)
[2019-08-18 07:32] VITALS: BP 142/67
[2019-08-18] MEDS: HYDROGEN PEROXIDE 480 ML BOTTLE TP SCH ×2 (09:00→21:00)
[2019-08-18] MEDS: CARBOXYMETHYLCELLULOSE SODIUM 0.4 ML DROPERETTE EACHEYE SCH (09:55)
[2019-08-18] MEDS: LEVETIRACETAM SOL (5 ML) 100 MG/ML UDC GT SCH ×2 (09:55→20:49)
[2019-08-18] MEDS: COD LIVER OIL/ZINC OXIDE 120 GM TUBE TP SCH ×2 (09:56→20:49)
[2019-08-18] MEDS: PROSTAT (PYXIS) 30 ML UDC GT SCH ×3 (09:56→17:12)
[2019-08-18] MEDS: ASCORBIC ACID 500 MG TABLET GT SCH (09:56)
[2019-08-18] MEDS: ACETAMINOPHEN 650 MG/20 ML UDC- SA PATIENTS-PAIN ONLY GT SCH ×2 (09:56→20:49)
[2019-08-18] MEDS: CHLORHEXIDINE GLUCONATE 15 ML UDC MM SCH ×2 (09:56→21:23)
[2019-08-18] MEDS: ACIDOPHILUS/BULGARICUS 1 EACH TAB.CHEW GT SCH ×2 (09:56→17:12)
[2019-08-18] MEDS: MULTIVIT W/MINERALS 1 TAB TABLET GT SCH (09:56)
[2019-08-18] MEDS: ZINC SULFATE 220 MG CAPSULE GT SCH (09:56)
[2019-08-18 14:48] VITALS: BP 111/68
[2019-08-18 19:52] VITALS: BP 136/63
[2019-08-18 22:00] VITALS: BP 142/67
[2019-08-19] MEDS: GLUCERNA 1.2 1,000 ML BOTTLE GT SCH ×6 (01:00→20:11)
[2019-08-19] MEDS: METOCLOPRAMIDE HCL 10 MG/10 ML UDC GT SCH ×3 (05:10→18:04)
[2019-08-19] MEDS: LEVOTHYROXINE SODIUM 88 MCG TABLET GT SCH (05:10)
[2019-08-19] MEDS: OMEPRAZOLE 20 MG CAPSULE.DR GT SCH (05:10)
[2019-08-19] MEDS: ACIDOPHILUS/BULGARICUS 1 EACH TAB.CHEW GT SCH ×2 (08:46→17:00)
[2019-08-19] MEDS: PROSTAT (PYXIS) 30 ML UDC GT SCH ×3 (08:46→17:00)
[2019-08-19] MEDS: CARBOXYMETHYLCELLULOSE SODIUM 0.4 ML DROPERETTE EACHEYE SCH (08:46)
[2019-08-19] MEDS: LEVETIRACETAM SOL (5 ML) 100 MG/ML UDC GT SCH ×2 (08:46→20:11)
[2019-08-19] MEDS: MULTIVIT W/MINERALS 1 TAB TABLET GT SCH (08:46)
[2019-08-19] MEDS: ZINC SULFATE 220 MG CAPSULE GT SCH (08:47)
[2019-08-19] MEDS: ACETAMINOPHEN 650 MG/20 ML UDC- SA PATIENTS-PAIN ONLY GT SCH ×2 (08:47→20:12)
[2019-08-19] MEDS: CHLORHEXIDINE GLUCONATE 15 ML UDC MM SCH ×2 (08:47→20:12)
[2019-08-19] MEDS: ASCORBIC ACID 500 MG TABLET GT SCH (08:47)
[2019-08-19] MEDS: COD LIVER OIL/ZINC OXIDE 120 GM TUBE TP SCH ×2 (08:47→21:55)
[2019-08-19] MEDS: HYDROGEN PEROXIDE 480 ML BOTTLE TP SCH ×2 (09:00→21:39)
[2019-08-19 10:00] VITALS: BP 126/65
[2019-08-19 11:30] VITALS: BP 126/65
[2019-08-19 19:44] VITALS: BP 130/70
[2019-08-19 22:14] VITALS: BP 130/70
[2019-08-20] MEDS: GLUCERNA 1.2 1,000 ML BOTTLE GT SCH ×6 (00:55→20:23)
[2019-08-20] MEDS: METOCLOPRAMIDE HCL 10 MG/10 ML UDC GT SCH ×4 (00:55→17:08)
[2019-08-20] MEDS: OMEPRAZOLE 20 MG CAPSULE.DR GT SCH (05:06)
[2019-08-20] MEDS: LEVOTHYROXINE SODIUM 88 MCG TABLET GT SCH (05:06)
[2019-08-20] MEDS: CARBOXYMETHYLCELLULOSE SODIUM 0.4 ML DROPERETTE EACHEYE SCH (08:57)
[2019-08-20] MEDS: CHLORHEXIDINE GLUCONATE 15 ML UDC MM SCH ×2 (08:57→20:24)
[2019-08-20] MEDS: ASCORBIC ACID 500 MG TABLET GT SCH (08:57)
[2019-08-20] MEDS: ZINC SULFATE 220 MG CAPSULE GT SCH (08:57)
[2019-08-20] MEDS: MULTIVIT W/MINERALS 1 TAB TABLET GT SCH (08:57)
[2019-08-20] MEDS: LEVETIRACETAM SOL (5 ML) 100 MG/ML UDC GT SCH ×2 (08:57→20:23)
[2019-08-20] MEDS: ACETAMINOPHEN 650 MG/20 ML UDC- SA PATIENTS-PAIN ONLY GT SCH ×2 (08:57→20:24)
[2019-08-20] MEDS: PROSTAT (PYXIS) 30 ML UDC GT SCH ×3 (08:57→17:08)
[2019-08-20] MEDS: ACIDOPHILUS/BULGARICUS 1 EACH TAB.CHEW GT SCH ×2 (08:57→17:08)
[2019-08-20] MEDS: HYDROGEN PEROXIDE 480 ML BOTTLE TP SCH ×2 (09:26→21:00)
[2019-08-20] MEDS: COD LIVER OIL/ZINC OXIDE 120 GM TUBE TP SCH ×2 (09:30→20:24)
[2019-08-20 11:29] VITALS: BP 113/50
[2019-08-20 12:20] VITALS: BP 100/52
--- NOTE | 2019-08-20 15:41 | NUR ---
Informed Consent for [employer] Communication System: SW called the patient's DPOA, Reyna Galindo [phone]; [ ] to inform them about [employer] and obtain verbal consent if they agree. Reyna expressed understanding and this SW addressed all of Reyna's questions. Reyna gave this SW verbal consent for [employer] Communication system to be used for their patient. Rugby, Rebecca Go witnessed verbal consent. Consent form filed in patient's chart.
[2019-08-20 18:49] VITALS: BP 112/68
[2019-08-20 20:17] VITALS: BP 130/74
[2019-08-20 22:27] VITALS: BP 130/74
[2019-08-21] MEDS: GLUCERNA 1.2 1,000 ML BOTTLE GT SCH ×6 (00:11→20:29)
[2019-08-21] MEDS: METOCLOPRAMIDE HCL 10 MG/10 ML UDC GT SCH ×4 (00:11→17:12)
[2019-08-21] MEDS: OMEPRAZOLE 20 MG CAPSULE.DR GT SCH (05:09)
[2019-08-21] MEDS: LEVOTHYROXINE SODIUM 88 MCG TABLET GT SCH (05:09)
[2019-08-21] MEDS: HYDROGEN PEROXIDE 480 ML BOTTLE TP SCH ×2 (09:00→21:14)
[2019-08-21] MEDS: CARBOXYMETHYLCELLULOSE SODIUM 0.4 ML DROPERETTE EACHEYE SCH (09:07)
[2019-08-21] MEDS: PROSTAT (PYXIS) 30 ML UDC GT SCH ×3 (09:07→17:12)
[2019-08-21] MEDS: ACIDOPHILUS/BULGARICUS 1 EACH TAB.CHEW GT SCH ×2 (09:07→17:12)
[2019-08-21] MEDS: CHLORHEXIDINE GLUCONATE 15 ML UDC MM SCH ×2 (09:07→20:42)
[2019-08-21] MEDS: ZINC SULFATE 220 MG CAPSULE GT SCH (09:07)
[2019-08-21] MEDS: LEVETIRACETAM SOL (5 ML) 100 MG/ML UDC GT SCH ×2 (09:07→20:29)
[2019-08-21] MEDS: COD LIVER OIL/ZINC OXIDE 120 GM TUBE TP SCH ×2 (09:07→20:31)
[2019-08-21] MEDS: ASCORBIC ACID 500 MG TABLET GT SCH (09:07)
[2019-08-21] MEDS: ACETAMINOPHEN 650 MG/20 ML UDC- SA PATIENTS-PAIN ONLY GT SCH ×2 (09:07→20:31)
[2019-08-21] MEDS: MULTIVIT W/MINERALS 1 TAB TABLET GT SCH (09:07)
[2019-08-21 11:33] VITALS: BP 124/62
[2019-08-21 15:26] VITALS: BP 124/62
--- NOTE | 2019-08-21 16:11 | NUR ---
Patient/ Family Video Chat: SW received a call from the patients daughter, Marielena Jeong [phone] requesting Zoom video call with her mother.This SW facilitated video call between family and patient. Marielena Jeong stated she was "happy" to see the patient. SW will continue to facilitate video calls as needed.
[2019-08-21 20:02] VITALS: BP 120/69
[2019-08-21 22:59] VITALS: BP 127/70
[2019-08-22] MEDS: METOCLOPRAMIDE HCL 10 MG/10 ML UDC GT SCH ×5 (00:12→23:14)
[2019-08-22] MEDS: GLUCERNA 1.2 1,000 ML BOTTLE GT SCH ×6 (00:12→20:43)
[2019-08-22] MEDS: LEVOTHYROXINE SODIUM 88 MCG TABLET GT SCH (05:02)
[2019-08-22] MEDS: OMEPRAZOLE 20 MG CAPSULE.DR GT SCH (05:02)
[2019-08-22 07:37] VITALS: BP 120/69
[2019-08-22] MEDS: LEVETIRACETAM SOL (5 ML) 100 MG/ML UDC GT SCH ×2 (09:00→20:43)
[2019-08-22] MEDS: CARBOXYMETHYLCELLULOSE SODIUM 0.4 ML DROPERETTE EACHEYE SCH (09:00)
[2019-08-22] MEDS: MULTIVIT W/MINERALS 1 TAB TABLET GT SCH (09:00)
[2019-08-22] MEDS: ACETAMINOPHEN 650 MG/20 ML UDC- SA PATIENTS-PAIN ONLY GT SCH ×2 (09:00→20:43)
[2019-08-22] MEDS: ACIDOPHILUS/BULGARICUS 1 EACH TAB.CHEW GT SCH ×2 (09:00→16:59)
[2019-08-22] MEDS: PROSTAT (PYXIS) 30 ML UDC GT SCH ×3 (09:00→16:59)
[2019-08-22] MEDS: ASCORBIC ACID 500 MG TABLET GT SCH (09:00)
[2019-08-22] MEDS: ZINC SULFATE 220 MG CAPSULE GT SCH (09:00)
[2019-08-22] MEDS: CHLORHEXIDINE GLUCONATE 15 ML UDC MM SCH ×2 (09:00→20:43)
[2019-08-22] MEDS: COD LIVER OIL/ZINC OXIDE 120 GM TUBE TP SCH ×2 (09:00→20:43)
--- NOTE | 2019-08-22 15:22 | NUR ---
Family Invitation to IDT: This SW called the patients Reyna WHITE [phone] to invite them to participate in IDT 08/23/2019 12:30pm. However, the call went to voicemail and SW left call back number.
[2019-08-22 18:11] VITALS: BP 120/69
[2019-08-22] MEDS: HYDROGEN PEROXIDE 480 ML BOTTLE TP SCH (19:54)
[2019-08-22 20:22] VITALS: BP 130/69
--- NOTE | 2019-08-22 22:00 | NUR ---
Noted pt's rojas catheter out,replaced Rojas cath with 18 fr, tolerated well by resident, yellow urine draining. Cont to monitor.
[2019-08-22 22:03] VITALS: BP 130/69
[2019-08-23] MEDS: GLUCERNA 1.2 1,000 ML BOTTLE GT SCH ×6 (00:09→20:33)
[2019-08-23] MEDS: LEVOTHYROXINE SODIUM 88 MCG TABLET GT SCH (05:04)
[2019-08-23] MEDS: OMEPRAZOLE 20 MG CAPSULE.DR GT SCH (05:04)
[2019-08-23] MEDS: METOCLOPRAMIDE HCL 10 MG/10 ML UDC GT SCH ×4 (05:04→23:21)
[2019-08-23 07:34] VITALS: BP 131/64
[2019-08-23] MEDS: LEVETIRACETAM SOL (5 ML) 100 MG/ML UDC GT SCH ×2 (09:00→20:33)
[2019-08-23] MEDS: ACIDOPHILUS/BULGARICUS 1 EACH TAB.CHEW GT SCH ×2 (09:00→16:44)
[2019-08-23] MEDS: ZINC SULFATE 220 MG CAPSULE GT SCH (09:00)
[2019-08-23] MEDS: PROSTAT (PYXIS) 30 ML UDC GT SCH ×3 (09:00→16:44)
[2019-08-23] MEDS: CHLORHEXIDINE GLUCONATE 15 ML UDC MM SCH ×2 (09:00→20:33)
[2019-08-23] MEDS: MULTIVIT W/MINERALS 1 TAB TABLET GT SCH (09:00)
[2019-08-23] MEDS: ACETAMINOPHEN 650 MG/20 ML UDC- SA PATIENTS-PAIN ONLY GT SCH ×2 (09:00→20:33)
[2019-08-23] MEDS: CARBOXYMETHYLCELLULOSE SODIUM 0.4 ML DROPERETTE EACHEYE SCH (09:00)
[2019-08-23] MEDS: COD LIVER OIL/ZINC OXIDE 120 GM TUBE TP SCH ×2 (09:00→20:33)
[2019-08-23] MEDS: ASCORBIC ACID 500 MG TABLET GT SCH (09:00)
[2019-08-23] MEDS: HYDROGEN PEROXIDE 480 ML BOTTLE TP SCH ×2 (09:42→20:17)
[2019-08-23 15:14] VITALS: BP 131/64
--- NOTE | 2019-08-23 15:14 | NUR ---
INTERDISCIPLINARY PLAN OF CARE CONFERENCE was held today. The patients responsible alliance party/daughter, Reyna Galindo [phone] did not participate via phone conference. Charge nurse discussed the pt. is stable; sacral wound & Tx; 07/31 trach change; no recent episode of vomiting. Current orders as well as treatments and medications were reviewed. See other disciplines IDT notes for further details.
--- NOTE | 2019-08-23 17:50 | NUR ---
RT NOTE RECEIVED ON 28% COOL AEROSOL, TOLERATING WELL. TRACH TUBE IN PLACE PATENT AND SECURED WITH TRACH TIE. BACK UP TRACH AND AMBU BAG BY THE BEDSIDE. NO DISTRESS AT THIS TIME. MONITOR THROUGHOUT SHIFT.
[2019-08-23 20:08] VITALS: BP 119/63
[2019-08-23] MEDS: NYSTATIN CREAM 15 GM TUBE TP SCH (20:33)
[2019-08-23] MEDS: TRIAMCINOLONE ACETONIDE 0.1% CR 15 GM TUBE TP SCH (20:33)
[2019-08-23 22:11] VITALS: BP 119/63
[2019-08-24] MEDS: GLUCERNA 1.2 1,000 ML BOTTLE GT SCH ×6 (00:07→20:15)
[2019-08-24] MEDS: METOCLOPRAMIDE HCL 10 MG/10 ML UDC GT SCH ×4 (05:29→23:06)
[2019-08-24] MEDS: OMEPRAZOLE 20 MG CAPSULE.DR GT SCH (05:29)
[2019-08-24] MEDS: LEVOTHYROXINE SODIUM 88 MCG TABLET GT SCH (05:29)
[2019-08-24 07:46] VITALS: BP 102/58
[2019-08-24] MEDS: LEVETIRACETAM SOL (5 ML) 100 MG/ML UDC GT SCH ×2 (08:47→20:15)
[2019-08-24] MEDS: CARBOXYMETHYLCELLULOSE SODIUM 0.4 ML DROPERETTE EACHEYE SCH (08:47)
[2019-08-24] MEDS: PROSTAT (PYXIS) 30 ML UDC GT SCH ×3 (08:48→16:58)
[2019-08-24] MEDS: ACETAMINOPHEN 650 MG/20 ML UDC- SA PATIENTS-PAIN ONLY GT SCH ×2 (08:48→20:16)
[2019-08-24] MEDS: ACIDOPHILUS/BULGARICUS 1 EACH TAB.CHEW GT SCH ×2 (08:48→16:58)
[2019-08-24] MEDS: CHLORHEXIDINE GLUCONATE 15 ML UDC MM SCH ×2 (08:49→20:16)
[2019-08-24] MEDS: ZINC SULFATE 220 MG CAPSULE GT SCH (08:49)
[2019-08-24] MEDS: ASCORBIC ACID 500 MG TABLET GT SCH (08:49)
[2019-08-24] MEDS: MULTIVIT W/MINERALS 1 TAB TABLET GT SCH (08:50)
[2019-08-24] MEDS: HYDROGEN PEROXIDE 480 ML BOTTLE TP SCH ×2 (09:00→21:08)
[2019-08-24] MEDS: COD LIVER OIL/ZINC OXIDE 120 GM TUBE TP SCH ×2 (09:00→20:16)
[2019-08-24] MEDS: TRIAMCINOLONE ACETONIDE 0.1% CR 15 GM TUBE TP SCH ×2 (09:00→20:16)
[2019-08-24] MEDS: NYSTATIN CREAM 15 GM TUBE TP SCH ×2 (09:00→20:16)
[2019-08-24 10:00] VITALS: BP 120/69
--- NOTE | 2019-08-24 12:00 | NUR ---
Seen and examined by Dr. Ross no new order given.
--- NOTE | 2019-08-24 17:00 | NUR ---
Video chat with resident's daughter Marielena Miller, she is pleased to see patient awake and looks comfortable.
[2019-08-24 19:57] VITALS: BP 124/56
[2019-08-24 20:00] VITALS: BP 116/67
[2019-08-24 20:01] VITALS: BP 124/56
[2019-08-24 23:33] VITALS: BP 118/63
[2019-08-25] MEDS: GLUCERNA 1.2 1,000 ML BOTTLE GT SCH ×6 (00:05→20:25)
[2019-08-25] MEDS: OMEPRAZOLE 20 MG CAPSULE.DR GT SCH (05:08)
[2019-08-25] MEDS: LEVOTHYROXINE SODIUM 88 MCG TABLET GT SCH (05:08)
[2019-08-25] MEDS: METOCLOPRAMIDE HCL 10 MG/10 ML UDC GT SCH ×3 (05:08→17:07)
[2019-08-25 07:37] VITALS: BP 126/76
[2019-08-25] MEDS: ZINC SULFATE 220 MG CAPSULE GT SCH (09:00)
[2019-08-25] MEDS: LEVETIRACETAM SOL (5 ML) 100 MG/ML UDC GT SCH ×2 (09:00→20:25)
[2019-08-25] MEDS: TRIAMCINOLONE ACETONIDE 0.1% CR 15 GM TUBE TP SCH ×2 (09:00→20:26)
[2019-08-25] MEDS: CARBOXYMETHYLCELLULOSE SODIUM 0.4 ML DROPERETTE EACHEYE SCH (09:00)
[2019-08-25] MEDS: CHLORHEXIDINE GLUCONATE 15 ML UDC MM SCH ×2 (09:00→20:26)
[2019-08-25] MEDS: ACETAMINOPHEN 650 MG/20 ML UDC- SA PATIENTS-PAIN ONLY GT SCH ×2 (09:00→20:26)
[2019-08-25] MEDS: PROSTAT (PYXIS) 30 ML UDC GT SCH ×3 (09:00→16:19)
[2019-08-25] MEDS: ACIDOPHILUS/BULGARICUS 1 EACH TAB.CHEW GT SCH ×2 (09:00→16:19)
[2019-08-25] MEDS: COD LIVER OIL/ZINC OXIDE 120 GM TUBE TP SCH ×2 (09:00→20:26)
[2019-08-25] MEDS: MULTIVIT W/MINERALS 1 TAB TABLET GT SCH (09:00)
[2019-08-25] MEDS: ASCORBIC ACID 500 MG TABLET GT SCH (09:00)
[2019-08-25] MEDS: NYSTATIN CREAM 15 GM TUBE TP SCH ×2 (09:00→20:26)
[2019-08-25] MEDS: HYDROGEN PEROXIDE 480 ML BOTTLE TP SCH ×2 (09:00→19:57)
[2019-08-25 10:49] VITALS: BP 111/66
[2019-08-25 20:26] VITALS: BP 127/68
[2019-08-25 22:13] VITALS: BP 127/68
[2019-08-26] MEDS: GLUCERNA 1.2 1,000 ML BOTTLE GT SCH ×6 (01:00→20:29)
[2019-08-26] MEDS: LEVOTHYROXINE SODIUM 88 MCG TABLET GT SCH (05:19)
[2019-08-26] MEDS: OMEPRAZOLE 20 MG CAPSULE.DR GT SCH (05:19)
[2019-08-26] MEDS: METOCLOPRAMIDE HCL 10 MG/10 ML UDC GT SCH ×4 (05:19→17:01)
[2019-08-26 07:47] VITALS: BP 123/62
[2019-08-26] MEDS: CARBOXYMETHYLCELLULOSE SODIUM 0.4 ML DROPERETTE EACHEYE SCH (09:00)
[2019-08-26] MEDS: ACETAMINOPHEN 650 MG/20 ML UDC- SA PATIENTS-PAIN ONLY GT SCH ×2 (09:00→20:31)
[2019-08-26] MEDS: ASCORBIC ACID 500 MG TABLET GT SCH (09:00)
[2019-08-26] MEDS: ZINC SULFATE 220 MG CAPSULE GT SCH (09:00)
[2019-08-26] MEDS: MULTIVIT W/MINERALS 1 TAB TABLET GT SCH (09:00)
[2019-08-26] MEDS: HYDROGEN PEROXIDE 480 ML BOTTLE TP SCH ×2 (09:00→21:00)
[2019-08-26] MEDS: NYSTATIN CREAM 15 GM TUBE TP SCH ×2 (09:00→20:32)
[2019-08-26] MEDS: CHLORHEXIDINE GLUCONATE 15 ML UDC MM SCH ×2 (09:00→20:31)
[2019-08-26] MEDS: COD LIVER OIL/ZINC OXIDE 120 GM TUBE TP SCH ×2 (09:00→20:32)
[2019-08-26] MEDS: LEVETIRACETAM SOL (5 ML) 100 MG/ML UDC GT SCH ×2 (09:00→20:30)
[2019-08-26] MEDS: PROSTAT (PYXIS) 30 ML UDC GT SCH ×3 (09:00→16:41)
[2019-08-26] MEDS: ACIDOPHILUS/BULGARICUS 1 EACH TAB.CHEW GT SCH ×2 (09:00→16:41)
[2019-08-26] MEDS: TRIAMCINOLONE ACETONIDE 0.1% CR 15 GM TUBE TP SCH ×2 (09:00→20:32)
[2019-08-26 11:22] VITALS: BP 115/60
[2019-08-26 20:23] VITALS: BP 121/63
[2019-08-26 22:20] VITALS: BP 121/68
[2019-08-27] MEDS: GLUCERNA 1.2 1,000 ML BOTTLE GT SCH ×6 (00:48→20:19)
[2019-08-27] MEDS: METOCLOPRAMIDE HCL 10 MG/10 ML UDC GT SCH ×5 (00:48→23:48)
[2019-08-27] MEDS: LEVOTHYROXINE SODIUM 88 MCG TABLET GT SCH (05:22)
[2019-08-27] MEDS: OMEPRAZOLE 20 MG CAPSULE.DR GT SCH (05:22)
[2019-08-27 07:42] VITALS: BP 120/73
[2019-08-27] MEDS: CARBOXYMETHYLCELLULOSE SODIUM 0.4 ML DROPERETTE EACHEYE SCH (09:13)
[2019-08-27] MEDS: ACIDOPHILUS/BULGARICUS 1 EACH TAB.CHEW GT SCH ×2 (09:13→17:06)
[2019-08-27] MEDS: CHLORHEXIDINE GLUCONATE 15 ML UDC MM SCH ×2 (09:13→20:19)
[2019-08-27] MEDS: MULTIVIT W/MINERALS 1 TAB TABLET GT SCH (09:13)
[2019-08-27] MEDS: ASCORBIC ACID 500 MG TABLET GT SCH (09:13)
[2019-08-27] MEDS: PROSTAT (PYXIS) 30 ML UDC GT SCH ×3 (09:13→17:06)
[2019-08-27] MEDS: LEVETIRACETAM SOL (5 ML) 100 MG/ML UDC GT SCH ×2 (09:13→20:19)
[2019-08-27] MEDS: ACETAMINOPHEN 650 MG/20 ML UDC- SA PATIENTS-PAIN ONLY GT SCH ×2 (09:13→20:19)
[2019-08-27] MEDS: ZINC SULFATE 220 MG CAPSULE GT SCH (09:13)
[2019-08-27] MEDS: TRIAMCINOLONE ACETONIDE 0.1% CR 15 GM TUBE TP SCH ×2 (09:46→20:20)
[2019-08-27] MEDS: COD LIVER OIL/ZINC OXIDE 120 GM TUBE TP SCH ×2 (09:47→20:20)
[2019-08-27] MEDS: NYSTATIN CREAM 15 GM TUBE TP SCH ×2 (09:47→20:20)
[2019-08-27] MEDS: HYDROGEN PEROXIDE 480 ML BOTTLE TP SCH ×2 (09:55→21:00)
[2019-08-27 10:00] VITALS: BP 117/65
--- NOTE | 2019-08-27 14:49 | NUR ---
Resident monthly progress notes. Resident is passive unable to respond on any stimulation and no interaction. Listen to TV most of the day in italian and namibian language as requested by her daughter.Resident received daily visits for reality orientation,hand massage,sensory stimulation,TV,music. These activities will be provided as necessary.
[2019-08-27 19:34] VITALS: BP 131/68
[2019-08-27 22:00] VITALS: BP 131/68
[2019-08-28] MEDS: GLUCERNA 1.2 1,000 ML BOTTLE GT SCH ×6 (01:00→21:02)
[2019-08-28] MEDS: OMEPRAZOLE 20 MG CAPSULE.DR GT SCH (05:03)
[2019-08-28] MEDS: METOCLOPRAMIDE HCL 10 MG/10 ML UDC GT SCH ×4 (05:03→23:33)
[2019-08-28] MEDS: LEVOTHYROXINE SODIUM 88 MCG TABLET GT SCH (05:03)
[2019-08-28 08:09] VITALS: BP 132/75
[2019-08-28] MEDS: PROSTAT (PYXIS) 30 ML UDC GT SCH ×3 (08:17→17:55)
[2019-08-28] MEDS: CARBOXYMETHYLCELLULOSE SODIUM 0.4 ML DROPERETTE EACHEYE SCH (08:17)
[2019-08-28] MEDS: MULTIVIT W/MINERALS 1 TAB TABLET GT SCH (08:17)
[2019-08-28] MEDS: ACIDOPHILUS/BULGARICUS 1 EACH TAB.CHEW GT SCH ×2 (08:17→17:55)
[2019-08-28] MEDS: LEVETIRACETAM SOL (5 ML) 100 MG/ML UDC GT SCH ×2 (08:17→20:03)
[2019-08-28] MEDS: CHLORHEXIDINE GLUCONATE 15 ML UDC MM SCH ×2 (08:18→20:07)
[2019-08-28] MEDS: NYSTATIN CREAM 15 GM TUBE TP SCH ×2 (08:18→20:07)
[2019-08-28] MEDS: COD LIVER OIL/ZINC OXIDE 120 GM TUBE TP SCH ×2 (08:18→20:07)
[2019-08-28] MEDS: TRIAMCINOLONE ACETONIDE 0.1% CR 15 GM TUBE TP SCH ×2 (08:18→20:07)
[2019-08-28] MEDS: ZINC SULFATE 220 MG CAPSULE GT SCH (08:18)
[2019-08-28] MEDS: ASCORBIC ACID 500 MG TABLET GT SCH (08:18)
[2019-08-28] MEDS: ACETAMINOPHEN 650 MG/20 ML UDC- SA PATIENTS-PAIN ONLY GT SCH ×2 (08:18→20:06)
[2019-08-28] MEDS: HYDROGEN PEROXIDE 480 ML BOTTLE TP SCH ×2 (09:26→20:01)
[2019-08-28 10:00] VITALS: BP 117/55
--- NOTE | 2019-08-28 19:59 | NUR ---
RT NOTE PT RECEIVED TRACHED ON COOL AEROSOL @ 28%. SX DONE, TRACH SECURED AND PATENT. NO DISTRESS NOTED. CONT. PULSE OX CONNECTED. WILL MONITOR T/O SHIFT. Addendum: 08/28/19 at 1959 by LETITIA BENITES RT Amended: Links added.
[2019-08-28 20:16] VITALS: BP 129/77
[2019-08-28 22:00] VITALS: BP 128/74
--- NOTE | 2019-08-28 22:00 | NUR ---
Patient rojas catheter out reported by BROWN STOCK WASHER,balloon intact. Re inserted new rojas F#18x10 ml balloon,no resistant ,patient tolerated procedure well.
[2019-08-29] MEDS: GLUCERNA 1.2 1,000 ML BOTTLE GT SCH ×6 (01:06→20:19)
[2019-08-29] MEDS: METOCLOPRAMIDE HCL 10 MG/10 ML UDC GT SCH ×4 (05:13→23:40)
[2019-08-29] MEDS: OMEPRAZOLE 20 MG CAPSULE.DR GT SCH (05:13)
[2019-08-29] MEDS: LEVOTHYROXINE SODIUM 88 MCG TABLET GT SCH (05:13)
[2019-08-29 07:23] VITALS: BP 109/78
[2019-08-29] MEDS: ACIDOPHILUS/BULGARICUS 1 EACH TAB.CHEW GT SCH ×2 (08:49→16:44)
[2019-08-29] MEDS: CARBOXYMETHYLCELLULOSE SODIUM 0.4 ML DROPERETTE EACHEYE SCH (08:49)
[2019-08-29] MEDS: LEVETIRACETAM SOL (5 ML) 100 MG/ML UDC GT SCH ×2 (08:49→20:19)
[2019-08-29] MEDS: PROSTAT (PYXIS) 30 ML UDC GT SCH ×3 (08:49→16:44)
[2019-08-29] MEDS: ZINC SULFATE 220 MG CAPSULE GT SCH (08:50)
[2019-08-29] MEDS: CHLORHEXIDINE GLUCONATE 15 ML UDC MM SCH ×2 (08:50→20:19)
[2019-08-29] MEDS: MULTIVIT W/MINERALS 1 TAB TABLET GT SCH (08:50)
[2019-08-29] MEDS: ACETAMINOPHEN 650 MG/20 ML UDC- SA PATIENTS-PAIN ONLY GT SCH ×2 (08:50→20:19)
[2019-08-29] MEDS: ASCORBIC ACID 500 MG TABLET GT SCH (08:50)
[2019-08-29] MEDS: HYDROGEN PEROXIDE 480 ML BOTTLE TP SCH ×2 (09:15→19:45)
[2019-08-29] MEDS: COD LIVER OIL/ZINC OXIDE 120 GM TUBE TP SCH ×2 (09:30→20:19)
[2019-08-29] MEDS: TRIAMCINOLONE ACETONIDE 0.1% CR 15 GM TUBE TP SCH ×2 (09:30→20:19)
[2019-08-29] MEDS: NYSTATIN CREAM 15 GM TUBE TP SCH ×2 (09:30→20:19)
[2019-08-29 12:20] VITALS: BP 110/58
[2019-08-29 18:16] VITALS: BP 128/70
[2019-08-29 19:43] VITALS: BP 125/90
[2019-08-29 22:03] VITALS: BP 125/95
[2019-08-30] MEDS: GLUCERNA 1.2 1,000 ML BOTTLE GT SCH ×6 (00:01→20:22)
[2019-08-30] MEDS: METOCLOPRAMIDE HCL 10 MG/10 ML UDC GT SCH ×4 (05:06→23:07)
[2019-08-30] MEDS: OMEPRAZOLE 20 MG CAPSULE.DR GT SCH (05:06)
[2019-08-30] MEDS: LEVOTHYROXINE SODIUM 88 MCG TABLET GT SCH (05:06)
[2019-08-30 07:28] VITALS: BP 141/71
[2019-08-30] MEDS: PROSTAT (PYXIS) 30 ML UDC GT SCH ×3 (09:49→17:00)
[2019-08-30] MEDS: ACETAMINOPHEN 650 MG/20 ML UDC- SA PATIENTS-PAIN ONLY GT SCH ×2 (09:49→20:22)
[2019-08-30] MEDS: ZINC SULFATE 220 MG CAPSULE GT SCH (09:49)
[2019-08-30] MEDS: ASCORBIC ACID 500 MG TABLET GT SCH (09:49)
[2019-08-30] MEDS: MULTIVIT W/MINERALS 1 TAB TABLET GT SCH (09:49)
[2019-08-30] MEDS: LEVETIRACETAM SOL (5 ML) 100 MG/ML UDC GT SCH ×2 (09:49→20:22)
[2019-08-30] MEDS: CHLORHEXIDINE GLUCONATE 15 ML UDC MM SCH ×2 (09:49→20:22)
[2019-08-30] MEDS: CARBOXYMETHYLCELLULOSE SODIUM 0.4 ML DROPERETTE EACHEYE SCH (09:49)
[2019-08-30] MEDS: ACIDOPHILUS/BULGARICUS 1 EACH TAB.CHEW GT SCH ×2 (09:49→17:00)
[2019-08-30] MEDS: HYDROGEN PEROXIDE 480 ML BOTTLE TP SCH ×2 (09:55→21:05)
[2019-08-30] MEDS: COD LIVER OIL/ZINC OXIDE 120 GM TUBE TP SCH ×2 (10:30→20:22)
[2019-08-30] MEDS: TRIAMCINOLONE ACETONIDE 0.1% CR 15 GM TUBE TP SCH ×2 (10:30→20:22)
[2019-08-30] MEDS: NYSTATIN CREAM 15 GM TUBE TP SCH ×2 (10:30→20:22)
[2019-08-30 12:20] VITALS: BP 105/60
--- NOTE | 2019-08-30 16:21 | NUR ---
Facility Protocols: Per Director's request, this SW called the patient's DPOA, Chente [phone] to provide an update on the facilities protocols pertaining to the ongoing COVID-19 pandemic. Reyna was receptive to speaking with JOSSE. JOSSE informed the family that essential infection control practices continue to be implemented in our facility and that the visitation restrictions will remain in place until otherwise stated by The Department of Public Health. JOSSE reminded Reyna of alternative means of communication including Zoom video calls, calling our facility and [employer]. Reyna expressed understanding. Family will be updated if any changes occur.
[2019-08-30 18:10] VITALS: BP 128/62
[2019-08-30 19:31] VITALS: BP 133/65
[2019-08-30 22:18] VITALS: BP 133/65
[2019-08-31] MEDS: GLUCERNA 1.2 1,000 ML BOTTLE GT SCH ×6 (00:02→20:29)
[2019-08-31] MEDS: OMEPRAZOLE 20 MG CAPSULE.DR GT SCH (05:02)
[2019-08-31] MEDS: LEVOTHYROXINE SODIUM 88 MCG TABLET GT SCH (05:02)
[2019-08-31] MEDS: METOCLOPRAMIDE HCL 10 MG/10 ML UDC GT SCH ×4 (05:02→23:25)
[2019-08-31 07:47] VITALS: BP 133/72
[2019-08-31] MEDS: CARBOXYMETHYLCELLULOSE SODIUM 0.4 ML DROPERETTE EACHEYE SCH (08:57)
[2019-08-31] MEDS: ACIDOPHILUS/BULGARICUS 1 EACH TAB.CHEW GT SCH ×2 (08:57→17:08)
[2019-08-31] MEDS: LEVETIRACETAM SOL (5 ML) 100 MG/ML UDC GT SCH ×2 (08:57→20:29)
[2019-08-31] MEDS: PROSTAT (PYXIS) 30 ML UDC GT SCH ×3 (08:58→17:08)
[2019-08-31] MEDS: MULTIVIT W/MINERALS 1 TAB TABLET GT SCH (08:58)
[2019-08-31] MEDS: ACETAMINOPHEN 650 MG/20 ML UDC- SA PATIENTS-PAIN ONLY GT SCH ×2 (08:59→20:29)
[2019-08-31] MEDS: ZINC SULFATE 220 MG CAPSULE GT SCH (08:59)
[2019-08-31] MEDS: CHLORHEXIDINE GLUCONATE 15 ML UDC MM SCH ×2 (08:59→20:29)
[2019-08-31] MEDS: ASCORBIC ACID 500 MG TABLET GT SCH (08:59)
[2019-08-31] MEDS: NYSTATIN CREAM 15 GM TUBE TP SCH ×2 (09:00→20:29)
[2019-08-31] MEDS: TRIAMCINOLONE ACETONIDE 0.1% CR 15 GM TUBE TP SCH ×2 (09:00→20:29)
[2019-08-31] MEDS: COD LIVER OIL/ZINC OXIDE 120 GM TUBE TP SCH ×2 (09:00→20:29)
[2019-08-31] MEDS: HYDROGEN PEROXIDE 480 ML BOTTLE TP SCH ×2 (09:50→19:57)
[2019-08-31 10:00] VITALS: BP 132/77
[2019-08-31 19:42] VITALS: BP 111/70
--- NOTE | 2019-08-31 19:59 | NUR ---
RT NOTE PT RECEIVED TRACHED ON COOL AEROSOL @ 28%. SX DONE, TRACH SECURED AND PATENT. WATER LEVEL GOOD. NO DISTRESS NOTED. WILL MONITOR T/O SHIFT. Addendum: 08/31/19 at 1999 by LETITIA BENITES RT Amended: Links added.
[2019-08-31 22:04] VITALS: BP 111/70
[2019-09-01] MEDS: GLUCERNA 1.2 1,000 ML BOTTLE GT SCH ×6 (00:04→20:24)
[2019-09-01] MEDS: OMEPRAZOLE 20 MG CAPSULE.DR GT SCH (05:03)
[2019-09-01] MEDS: LEVOTHYROXINE SODIUM 88 MCG TABLET GT SCH (05:03)
[2019-09-01] MEDS: METOCLOPRAMIDE HCL 10 MG/10 ML UDC GT SCH ×4 (05:03→23:55)
[2019-09-01 07:54] VITALS: BP 138/95
[2019-09-01] MEDS: HYDROGEN PEROXIDE 480 ML BOTTLE TP SCH ×2 (08:10→21:00)
[2019-09-01] MEDS: PROSTAT (PYXIS) 30 ML UDC GT SCH ×3 (08:53→16:40)
[2019-09-01] MEDS: CARBOXYMETHYLCELLULOSE SODIUM 0.4 ML DROPERETTE EACHEYE SCH (08:53)
[2019-09-01] MEDS: ACIDOPHILUS/BULGARICUS 1 EACH TAB.CHEW GT SCH ×2 (08:53→16:40)
[2019-09-01] MEDS: MULTIVIT W/MINERALS 1 TAB TABLET GT SCH (08:53)
[2019-09-01] MEDS: LEVETIRACETAM SOL (5 ML) 100 MG/ML UDC GT SCH ×2 (08:53→20:24)
[2019-09-01] MEDS: CHLORHEXIDINE GLUCONATE 15 ML UDC MM SCH ×2 (08:54→20:25)
[2019-09-01] MEDS: ZINC SULFATE 220 MG CAPSULE GT SCH (08:54)
[2019-09-01] MEDS: ASCORBIC ACID 500 MG TABLET GT SCH (08:54)
[2019-09-01] MEDS: ACETAMINOPHEN 650 MG/20 ML UDC- SA PATIENTS-PAIN ONLY GT SCH ×2 (08:54→20:25)
[2019-09-01] MEDS: TRIAMCINOLONE ACETONIDE 0.1% CR 15 GM TUBE TP SCH ×2 (08:54→20:25)
[2019-09-01] MEDS: NYSTATIN CREAM 15 GM TUBE TP SCH ×2 (08:55→20:25)
[2019-09-01] MEDS: COD LIVER OIL/ZINC OXIDE 120 GM TUBE TP SCH ×2 (08:55→20:25)
[2019-09-01 11:22] VITALS: BP 130/72
[2019-09-01 19:19] VITALS: BP 141/68
[2019-09-01 22:10] VITALS: BP 141/68
[2019-09-02] MEDS: GLUCERNA 1.2 1,000 ML BOTTLE GT SCH ×6 (01:00→20:22)
[2019-09-02] MEDS: OMEPRAZOLE 20 MG CAPSULE.DR GT SCH (05:23)
[2019-09-02] MEDS: LEVOTHYROXINE SODIUM 88 MCG TABLET GT SCH (05:23)
[2019-09-02] MEDS: METOCLOPRAMIDE HCL 10 MG/10 ML UDC GT SCH ×3 (05:23→17:39)
[2019-09-02 07:53] VITALS: BP 126/68
[2019-09-02] MEDS: HYDROGEN PEROXIDE 480 ML BOTTLE TP SCH ×2 (07:58→21:00)
[2019-09-02] MEDS: LEVETIRACETAM SOL (5 ML) 100 MG/ML UDC GT SCH ×2 (09:00→20:18)
[2019-09-02] MEDS: TRIAMCINOLONE ACETONIDE 0.1% CR 15 GM TUBE TP SCH ×2 (09:00→20:19)
[2019-09-02] MEDS: NYSTATIN CREAM 15 GM TUBE TP SCH ×2 (09:00→20:19)
[2019-09-02] MEDS: ACIDOPHILUS/BULGARICUS 1 EACH TAB.CHEW GT SCH ×2 (09:00→16:46)
[2019-09-02] MEDS: MULTIVIT W/MINERALS 1 TAB TABLET GT SCH (09:00)
[2019-09-02] MEDS: COD LIVER OIL/ZINC OXIDE 120 GM TUBE TP SCH ×2 (09:00→20:19)
[2019-09-02] MEDS: CARBOXYMETHYLCELLULOSE SODIUM 0.4 ML DROPERETTE EACHEYE SCH (09:00)
[2019-09-02] MEDS: ASCORBIC ACID 500 MG TABLET GT SCH (09:00)
[2019-09-02] MEDS: ACETAMINOPHEN 650 MG/20 ML UDC- SA PATIENTS-PAIN ONLY GT SCH ×2 (09:00→20:19)
[2019-09-02] MEDS: ZINC SULFATE 220 MG CAPSULE GT SCH (09:00)
[2019-09-02] MEDS: CHLORHEXIDINE GLUCONATE 15 ML UDC MM SCH ×2 (09:00→20:19)
[2019-09-02] MEDS: PROSTAT (PYXIS) 30 ML UDC GT SCH ×3 (09:00→16:46)
[2019-09-02 16:43] VITALS: BP 126/76
[2019-09-02 20:18] VITALS: BP 135/59
[2019-09-02 22:06] VITALS: BP 135/59
[2019-09-03] MEDS: METOCLOPRAMIDE HCL 10 MG/10 ML UDC GT SCH ×5 (00:07→23:49)
[2019-09-03] MEDS: GLUCERNA 1.2 1,000 ML BOTTLE GT SCH ×7 (01:29→23:49)
[2019-09-03] MEDS: OMEPRAZOLE 20 MG CAPSULE.DR GT SCH (05:08)
[2019-09-03] MEDS: LEVOTHYROXINE SODIUM 88 MCG TABLET GT SCH (05:08)
[2019-09-03 07:29] VITALS: BP 134/72
[2019-09-03] MEDS: HYDROGEN PEROXIDE 480 ML BOTTLE TP SCH ×2 (09:00→21:00)
[2019-09-03] MEDS: MULTIVIT W/MINERALS 1 TAB TABLET GT SCH (09:00)
[2019-09-03] MEDS: ZINC SULFATE 220 MG CAPSULE GT SCH (09:00)
[2019-09-03] MEDS: LEVETIRACETAM SOL (5 ML) 100 MG/ML UDC GT SCH ×2 (09:00→20:20)
[2019-09-03] MEDS: ACIDOPHILUS/BULGARICUS 1 EACH TAB.CHEW GT SCH ×2 (09:00→16:55)
[2019-09-03] MEDS: NYSTATIN CREAM 15 GM TUBE TP SCH ×2 (09:00→20:21)
[2019-09-03] MEDS: COD LIVER OIL/ZINC OXIDE 120 GM TUBE TP SCH ×2 (09:00→20:21)
[2019-09-03] MEDS: ASCORBIC ACID 500 MG TABLET GT SCH (09:00)
[2019-09-03] MEDS: CARBOXYMETHYLCELLULOSE SODIUM 0.4 ML DROPERETTE EACHEYE SCH (09:00)
[2019-09-03] MEDS: ACETAMINOPHEN 650 MG/20 ML UDC- SA PATIENTS-PAIN ONLY GT SCH ×2 (09:00→20:21)
[2019-09-03] MEDS: PROSTAT (PYXIS) 30 ML UDC GT SCH ×3 (09:00→16:55)
[2019-09-03] MEDS: CHLORHEXIDINE GLUCONATE 15 ML UDC MM SCH ×2 (09:00→20:21)
[2019-09-03] MEDS: TRIAMCINOLONE ACETONIDE 0.1% CR 15 GM TUBE TP SCH ×2 (09:00→20:21)
[2019-09-03 16:56] VITALS: BP 127/71
--- NOTE | 2019-09-03 17:13 | NUR ---
RT Pt received on cool aerosol with adequate SpO2. Pt is awake but does not follow commands. No SOB or respiratory distress noted. Addendum: 09/03/19 at 1714 by LIDYA POPE RT Amended: Links added.
[2019-09-03 21:11] VITALS: BP 127/69
[2019-09-03 22:14] VITALS: BP 127/69
[2019-09-04] MEDS: GLUCERNA 1.2 1,000 ML BOTTLE GT SCH ×5 (05:26→21:45)
[2019-09-04] MEDS: OMEPRAZOLE 20 MG CAPSULE.DR GT SCH (05:34)
[2019-09-04] MEDS: METOCLOPRAMIDE HCL 10 MG/10 ML UDC GT SCH ×3 (05:34→18:52)
[2019-09-04] MEDS: LEVOTHYROXINE SODIUM 88 MCG TABLET GT SCH (05:34)
[2019-09-04 07:54] VITALS: BP 135/67
[2019-09-04] MEDS: ACIDOPHILUS/BULGARICUS 1 EACH TAB.CHEW GT SCH ×2 (08:29→16:32)
[2019-09-04] MEDS: CARBOXYMETHYLCELLULOSE SODIUM 0.4 ML DROPERETTE EACHEYE SCH (08:29)
[2019-09-04] MEDS: ASCORBIC ACID 500 MG TABLET GT SCH (08:29)
[2019-09-04] MEDS: PROSTAT (PYXIS) 30 ML UDC GT SCH ×3 (08:29→16:32)
[2019-09-04] MEDS: ZINC SULFATE 220 MG CAPSULE GT SCH (08:29)
[2019-09-04] MEDS: ACETAMINOPHEN 650 MG/20 ML UDC- SA PATIENTS-PAIN ONLY GT SCH ×2 (08:29→21:46)
[2019-09-04] MEDS: MULTIVIT W/MINERALS 1 TAB TABLET GT SCH (08:29)
[2019-09-04] MEDS: CHLORHEXIDINE GLUCONATE 15 ML UDC MM SCH ×2 (08:29→21:46)
[2019-09-04] MEDS: LEVETIRACETAM SOL (5 ML) 100 MG/ML UDC GT SCH ×2 (08:29→21:45)
[2019-09-04] MEDS: COD LIVER OIL/ZINC OXIDE 120 GM TUBE TP SCH ×2 (09:00→21:46)
[2019-09-04] MEDS: TRIAMCINOLONE ACETONIDE 0.1% CR 15 GM TUBE TP SCH ×2 (09:00→21:46)
[2019-09-04] MEDS: NYSTATIN CREAM 15 GM TUBE TP SCH ×2 (09:00→21:46)
[2019-09-04] MEDS: HYDROGEN PEROXIDE 480 ML BOTTLE TP SCH ×2 (09:00→21:46)
[2019-09-04 12:20] VITALS: BP 114/58
[2019-09-04 18:53] VITALS: BP 120/60
[2019-09-04 19:42] VITALS: BP 124/67
[2019-09-04 22:00] VITALS: BP 124/67
[2019-09-05] MEDS: METOCLOPRAMIDE HCL 10 MG/10 ML UDC GT SCH ×5 (00:09→23:12)
[2019-09-05] MEDS: GLUCERNA 1.2 1,000 ML BOTTLE GT SCH ×6 (01:05→20:37)
[2019-09-05] MEDS: OMEPRAZOLE 20 MG CAPSULE.DR GT SCH (05:35)
[2019-09-05] MEDS: LEVOTHYROXINE SODIUM 88 MCG TABLET GT SCH (05:35)
[2019-09-05 07:46] VITALS: BP 121/53
[2019-09-05] MEDS: HYDROGEN PEROXIDE 480 ML BOTTLE TP SCH ×2 (09:00→21:41)
[2019-09-05] MEDS: PROSTAT (PYXIS) 30 ML UDC GT SCH ×3 (09:27→17:07)
[2019-09-05] MEDS: MULTIVIT W/MINERALS 1 TAB TABLET GT SCH (09:27)
[2019-09-05] MEDS: CARBOXYMETHYLCELLULOSE SODIUM 0.4 ML DROPERETTE EACHEYE SCH (09:27)
[2019-09-05] MEDS: ACIDOPHILUS/BULGARICUS 1 EACH TAB.CHEW GT SCH ×2 (09:27→17:07)
[2019-09-05] MEDS: LEVETIRACETAM SOL (5 ML) 100 MG/ML UDC GT SCH ×2 (09:27→20:37)
[2019-09-05] MEDS: ACETAMINOPHEN 650 MG/20 ML UDC- SA PATIENTS-PAIN ONLY GT SCH ×2 (09:28→20:37)
[2019-09-05] MEDS: ZINC SULFATE 220 MG CAPSULE GT SCH (09:29)
[2019-09-05] MEDS: ASCORBIC ACID 500 MG TABLET GT SCH (09:29)
[2019-09-05] MEDS: CHLORHEXIDINE GLUCONATE 15 ML UDC MM SCH ×2 (09:29→21:00)
[2019-09-05 10:00] VITALS: BP 132/59
[2019-09-05] MEDS: TRIAMCINOLONE ACETONIDE 0.1% CR 15 GM TUBE TP SCH ×2 (10:15→20:37)
[2019-09-05] MEDS: COD LIVER OIL/ZINC OXIDE 120 GM TUBE TP SCH ×2 (10:15→20:37)
[2019-09-05] MEDS: NYSTATIN CREAM 15 GM TUBE TP SCH ×2 (10:15→20:37)
--- NOTE | 2019-09-05 13:03 | NUR ---
Dr Ross ordered Covid-19 test as required by [facility]. Pt asymptomatic. Notified pt's daughter Reyna and she is in agreement.
[2019-09-05 19:40] VITALS: BP 122/73
[2019-09-05 22:00] VITALS: BP 124/69
[2019-09-06] MEDS: GLUCERNA 1.2 1,000 ML BOTTLE GT SCH ×6 (01:18→21:18)
[2019-09-06] MEDS: METOCLOPRAMIDE HCL 10 MG/10 ML UDC GT SCH ×3 (05:02→17:32)
[2019-09-06] MEDS: LEVOTHYROXINE SODIUM 88 MCG TABLET GT SCH (05:02)
[2019-09-06] MEDS: OMEPRAZOLE 20 MG CAPSULE.DR GT SCH (05:02)
[2019-09-06 07:32] VITALS: BP 121/74
[2019-09-06] MEDS: ZINC SULFATE 220 MG CAPSULE GT SCH (08:47)
[2019-09-06] MEDS: ASCORBIC ACID 500 MG TABLET GT SCH (08:47)
[2019-09-06] MEDS: ACIDOPHILUS/BULGARICUS 1 EACH TAB.CHEW GT SCH ×2 (08:47→17:32)
[2019-09-06] MEDS: PROSTAT (PYXIS) 30 ML UDC GT SCH ×3 (08:47→17:32)
[2019-09-06] MEDS: LEVETIRACETAM SOL (5 ML) 100 MG/ML UDC GT SCH ×2 (08:47→21:18)
[2019-09-06] MEDS: ACETAMINOPHEN 650 MG/20 ML UDC- SA PATIENTS-PAIN ONLY GT SCH ×2 (08:47→21:18)
[2019-09-06] MEDS: CHLORHEXIDINE GLUCONATE 15 ML UDC MM SCH ×2 (08:47→21:18)
[2019-09-06] MEDS: CARBOXYMETHYLCELLULOSE SODIUM 0.4 ML DROPERETTE EACHEYE SCH (08:47)
[2019-09-06] MEDS: MULTIVIT W/MINERALS 1 TAB TABLET GT SCH (08:47)
[2019-09-06] MEDS: NYSTATIN CREAM 15 GM TUBE TP SCH ×2 (08:48→21:44)
[2019-09-06] MEDS: TRIAMCINOLONE ACETONIDE 0.1% CR 15 GM TUBE TP SCH ×2 (08:48→21:44)
[2019-09-06] MEDS: COD LIVER OIL/ZINC OXIDE 120 GM TUBE TP SCH ×2 (08:48→21:44)
[2019-09-06] MEDS: HYDROGEN PEROXIDE 480 ML BOTTLE TP SCH ×2 (09:39→20:11)
[2019-09-06 15:51] VITALS: BP 123/74
[2019-09-06 20:30] VITALS: BP 127/71
[2019-09-06 22:30] VITALS: BP 126/74
[2019-09-07] MEDS: METOCLOPRAMIDE HCL 10 MG/10 ML UDC GT SCH ×4 (00:11→18:41)
[2019-09-07] MEDS: GLUCERNA 1.2 1,000 ML BOTTLE GT SCH ×6 (00:12→20:54)
[2019-09-07] MEDS: LEVOTHYROXINE SODIUM 88 MCG TABLET GT SCH (05:13)
[2019-09-07] MEDS: OMEPRAZOLE 20 MG CAPSULE.DR GT SCH (05:13)
--- NOTE | 2019-09-07 05:33 | NUR ---
Covid 19 test result negative.
[2019-09-07 07:43] VITALS: BP 141/60
[2019-09-07 08:00] VITALS: BP 141/60
[2019-09-07] MEDS: PROSTAT (PYXIS) 30 ML UDC GT SCH ×3 (09:00→17:00)
[2019-09-07] MEDS: MULTIVIT W/MINERALS 1 TAB TABLET GT SCH (09:00)
[2019-09-07] MEDS: ZINC SULFATE 220 MG CAPSULE GT SCH (09:00)
[2019-09-07] MEDS: ACIDOPHILUS/BULGARICUS 1 EACH TAB.CHEW GT SCH ×2 (09:00→16:34)
[2019-09-07] MEDS: CARBOXYMETHYLCELLULOSE SODIUM 0.4 ML DROPERETTE EACHEYE SCH (09:00)
[2019-09-07] MEDS: CHLORHEXIDINE GLUCONATE 15 ML UDC MM SCH ×2 (09:00→20:54)
[2019-09-07] MEDS: LEVETIRACETAM SOL (5 ML) 100 MG/ML UDC GT SCH ×2 (09:00→20:54)
[2019-09-07] MEDS: ASCORBIC ACID 500 MG TABLET GT SCH (09:00)
[2019-09-07] MEDS: ACETAMINOPHEN 650 MG/20 ML UDC- SA PATIENTS-PAIN ONLY GT SCH ×2 (09:00→20:54)
[2019-09-07] MEDS: NYSTATIN CREAM 15 GM TUBE TP SCH ×2 (10:00→21:20)
[2019-09-07] MEDS: TRIAMCINOLONE ACETONIDE 0.1% CR 15 GM TUBE TP SCH ×2 (10:00→21:20)
[2019-09-07] MEDS: COD LIVER OIL/ZINC OXIDE 120 GM TUBE TP SCH ×2 (10:00→21:20)
[2019-09-07] MEDS: HYDROGEN PEROXIDE 480 ML BOTTLE TP SCH ×2 (11:48→21:14)
[2019-09-07 20:32] VITALS: BP 124/61
[2019-09-07 22:30] VITALS: BP 119/68
[2019-09-08] MEDS: GLUCERNA 1.2 1,000 ML BOTTLE GT SCH ×6 (00:09→21:02)
[2019-09-08] MEDS: METOCLOPRAMIDE HCL 10 MG/10 ML UDC GT SCH ×4 (00:09→17:06)
[2019-09-08] MEDS: OMEPRAZOLE 20 MG CAPSULE.DR GT SCH (05:07)
[2019-09-08] MEDS: LEVOTHYROXINE SODIUM 88 MCG TABLET GT SCH (05:07)
[2019-09-08 07:44] VITALS: BP 136/66
[2019-09-08 08:00] VITALS: BP 136/66
[2019-09-08] MEDS: HYDROGEN PEROXIDE 480 ML BOTTLE TP SCH ×2 (09:00→19:46)
[2019-09-08] MEDS: LEVETIRACETAM SOL (5 ML) 100 MG/ML UDC GT SCH ×2 (09:50→21:01)
[2019-09-08] MEDS: CARBOXYMETHYLCELLULOSE SODIUM 0.4 ML DROPERETTE EACHEYE SCH (09:50)
[2019-09-08] MEDS: ACIDOPHILUS/BULGARICUS 1 EACH TAB.CHEW GT SCH ×2 (09:50→16:49)
[2019-09-08] MEDS: PROSTAT (PYXIS) 30 ML UDC GT SCH ×3 (09:50→16:49)
[2019-09-08] MEDS: ASCORBIC ACID 500 MG TABLET GT SCH (09:51)
[2019-09-08] MEDS: ACETAMINOPHEN 650 MG/20 ML UDC- SA PATIENTS-PAIN ONLY GT SCH ×2 (09:51→21:02)
[2019-09-08] MEDS: MULTIVIT W/MINERALS 1 TAB TABLET GT SCH (09:51)
[2019-09-08] MEDS: ZINC SULFATE 220 MG CAPSULE GT SCH (09:51)
[2019-09-08] MEDS: CHLORHEXIDINE GLUCONATE 15 ML UDC MM SCH ×2 (09:51→21:02)
[2019-09-08] MEDS: NYSTATIN CREAM 15 GM TUBE TP SCH ×2 (10:51→21:02)
[2019-09-08] MEDS: TRIAMCINOLONE ACETONIDE 0.1% CR 15 GM TUBE TP SCH ×2 (10:51→21:02)
[2019-09-08] MEDS: COD LIVER OIL/ZINC OXIDE 120 GM TUBE TP SCH ×2 (10:51→21:02)
[2019-09-08 19:53] VITALS: BP 137/69
[2019-09-08 23:53] VITALS: BP 122/62
[2019-09-09] MEDS: METOCLOPRAMIDE HCL 10 MG/10 ML UDC GT SCH ×5 (00:02→23:21)
[2019-09-09] MEDS: GLUCERNA 1.2 1,000 ML BOTTLE GT SCH ×6 (00:02→21:32)
[2019-09-09] MEDS: LEVOTHYROXINE SODIUM 88 MCG TABLET GT SCH (05:43)
[2019-09-09] MEDS: OMEPRAZOLE 20 MG CAPSULE.DR GT SCH (05:43)
[2019-09-09 08:24] VITALS: BP 124/72
[2019-09-09] MEDS: ASCORBIC ACID 500 MG TABLET GT SCH (08:31)
[2019-09-09] MEDS: PROSTAT (PYXIS) 30 ML UDC GT SCH ×3 (08:31→16:51)
[2019-09-09] MEDS: ZINC SULFATE 220 MG CAPSULE GT SCH (08:31)
[2019-09-09] MEDS: CHLORHEXIDINE GLUCONATE 15 ML UDC MM SCH ×2 (08:31→21:32)
[2019-09-09] MEDS: CARBOXYMETHYLCELLULOSE SODIUM 0.4 ML DROPERETTE EACHEYE SCH (08:31)
[2019-09-09] MEDS: MULTIVIT W/MINERALS 1 TAB TABLET GT SCH (08:31)
[2019-09-09] MEDS: LEVETIRACETAM SOL (5 ML) 100 MG/ML UDC GT SCH ×2 (08:31→21:32)
[2019-09-09] MEDS: ACIDOPHILUS/BULGARICUS 1 EACH TAB.CHEW GT SCH ×2 (08:31→16:51)
[2019-09-09] MEDS: ACETAMINOPHEN 650 MG/20 ML UDC- SA PATIENTS-PAIN ONLY GT SCH ×2 (08:31→21:32)
[2019-09-09] MEDS: COD LIVER OIL/ZINC OXIDE 120 GM TUBE TP SCH ×2 (09:00→21:32)
[2019-09-09] MEDS: TRIAMCINOLONE ACETONIDE 0.1% CR 15 GM TUBE TP SCH ×2 (09:00→21:32)
[2019-09-09] MEDS: NYSTATIN CREAM 15 GM TUBE TP SCH ×2 (09:00→21:32)
[2019-09-09] MEDS: HYDROGEN PEROXIDE 480 ML BOTTLE TP SCH ×2 (09:00→21:00)
[2019-09-09 12:10] VITALS: BP 110/58
[2019-09-09 18:25] VITALS: BP 113/61
[2019-09-09 19:51] VITALS: BP 121/62
[2019-09-09 22:13] VITALS: BP 122/62
[2019-09-10] MEDS: GLUCERNA 1.2 1,000 ML BOTTLE GT SCH ×6 (01:00→21:07)
[2019-09-10] MEDS: LEVOTHYROXINE SODIUM 88 MCG TABLET GT SCH (05:56)
[2019-09-10] MEDS: METOCLOPRAMIDE HCL 10 MG/10 ML UDC GT SCH ×3 (05:56→17:11)
[2019-09-10] MEDS: OMEPRAZOLE 20 MG CAPSULE.DR GT SCH (05:56)
[2019-09-10 07:22] VITALS: BP 108/66
[2019-09-10] MEDS: HYDROGEN PEROXIDE 480 ML BOTTLE TP SCH ×2 (09:00→21:00)
[2019-09-10] MEDS: CHLORHEXIDINE GLUCONATE 15 ML UDC MM SCH ×2 (09:00→21:07)
[2019-09-10] MEDS: LEVETIRACETAM SOL (5 ML) 100 MG/ML UDC GT SCH ×2 (09:29→21:07)
[2019-09-10] MEDS: ZINC SULFATE 220 MG CAPSULE GT SCH (09:29)
[2019-09-10] MEDS: CARBOXYMETHYLCELLULOSE SODIUM 0.4 ML DROPERETTE EACHEYE SCH (09:29)
[2019-09-10] MEDS: MULTIVIT W/MINERALS 1 TAB TABLET GT SCH (09:29)
[2019-09-10] MEDS: PROSTAT (PYXIS) 30 ML UDC GT SCH ×3 (09:29→17:11)
[2019-09-10] MEDS: ASCORBIC ACID 500 MG TABLET GT SCH (09:29)
[2019-09-10] MEDS: ACETAMINOPHEN 650 MG/20 ML UDC- SA PATIENTS-PAIN ONLY GT SCH ×2 (09:29→21:07)
[2019-09-10] MEDS: ACIDOPHILUS/BULGARICUS 1 EACH TAB.CHEW GT SCH ×2 (09:29→17:11)
[2019-09-10] MEDS: TRIAMCINOLONE ACETONIDE 0.1% CR 15 GM TUBE TP SCH ×2 (10:00→21:07)
[2019-09-10] MEDS: NYSTATIN CREAM 15 GM TUBE TP SCH ×2 (10:00→21:08)
[2019-09-10] MEDS: COD LIVER OIL/ZINC OXIDE 120 GM TUBE TP SCH ×2 (10:00→21:07)
--- NOTE | 2019-09-10 15:00 | NUR ---
Left message for Reyna that Covid-19 test is negative.
--- NOTE | 2019-09-10 16:00 | NUR ---
Pt was noted with a scratch alecia on the right upper arm. Received order to apply triple antibiotic ointment q shift for 14 days. Notified pt's daughter.
--- NOTE | 2019-09-10 16:19 | NUR ---
Facility Protocols: Per Director's request, this SW updated the patient's DPOA, Chente Galindo [phone] via [employer] portal regarding the facility's protocols pertaining to the ongoing COVID-19 pandemic. SW informed the family that essential infection control practices continue to be updated and implemented in our facility. SW informed the family that the visitation restrictions will remain in place until otherwise stated by The Department of Public Health. SW reminded Reyna of alternative means of communication including Zoom video calls, calling our facility and [employer] System. Family will be updated if any changes occur.
[2019-09-10 18:13] VITALS: BP 129/77
[2019-09-10 20:00] VITALS: BP 128/62
[2019-09-10] MEDS: BACI/NEOM/POLY B OINT PKT 1 UDPKT PACKET TP SCH (21:08)
[2019-09-10 22:07] VITALS: BP 128/64
[2019-09-11] MEDS: METOCLOPRAMIDE HCL 10 MG/10 ML UDC GT SCH ×4 (00:01→17:37)
[2019-09-11] MEDS: GLUCERNA 1.2 1,000 ML BOTTLE GT SCH ×6 (00:02→21:14)
[2019-09-11] MEDS: LEVOTHYROXINE SODIUM 88 MCG TABLET GT SCH (06:02)
[2019-09-11] MEDS: OMEPRAZOLE 20 MG CAPSULE.DR GT SCH (06:02)
[2019-09-11 07:31] VITALS: BP 123/66
[2019-09-11 08:00] VITALS: BP 123/66
[2019-09-11] MEDS: MULTIVIT W/MINERALS 1 TAB TABLET GT SCH (08:02)
[2019-09-11] MEDS: PROSTAT (PYXIS) 30 ML UDC GT SCH ×3 (08:02→16:35)
[2019-09-11] MEDS: LEVETIRACETAM SOL (5 ML) 100 MG/ML UDC GT SCH ×2 (08:02→21:14)
[2019-09-11] MEDS: CARBOXYMETHYLCELLULOSE SODIUM 0.4 ML DROPERETTE EACHEYE SCH (08:02)
[2019-09-11] MEDS: ACIDOPHILUS/BULGARICUS 1 EACH TAB.CHEW GT SCH ×2 (08:02→16:35)
[2019-09-11] MEDS: ACETAMINOPHEN 650 MG/20 ML UDC- SA PATIENTS-PAIN ONLY GT SCH ×2 (08:03→21:14)
[2019-09-11] MEDS: CHLORHEXIDINE GLUCONATE 15 ML UDC MM SCH ×2 (08:03→21:14)
[2019-09-11] MEDS: ASCORBIC ACID 500 MG TABLET GT SCH (08:03)
[2019-09-11] MEDS: ZINC SULFATE 220 MG CAPSULE GT SCH (08:03)
[2019-09-11] MEDS: COD LIVER OIL/ZINC OXIDE 120 GM TUBE TP SCH ×2 (09:00→21:28)
[2019-09-11] MEDS: NYSTATIN CREAM 15 GM TUBE TP SCH ×2 (09:00→21:29)
[2019-09-11] MEDS: TRIAMCINOLONE ACETONIDE 0.1% CR 15 GM TUBE TP SCH ×2 (09:00→21:28)
[2019-09-11] MEDS: BACI/NEOM/POLY B OINT PKT 1 UDPKT PACKET TP SCH ×2 (09:00→21:29)
[2019-09-11] MEDS: HYDROGEN PEROXIDE 480 ML BOTTLE TP SCH ×2 (09:17→21:39)
--- NOTE | 2019-09-11 19:14 | NUR ---
RT NOTE PT RECEIVED TRACHED ON COOL AEROSOL @ 28%. SX DONE, TRACH SECURED AND PATENT. AEROSOL WATER LEVEL GOOD. NO DISTRESS NOTED. WILL CONTINUE TO MONITOR T/O SHIFT. Addendum: 09/11/19 at 1915 by LETITIA BENITES RT Amended: Links added.
[2019-09-11 20:42] VITALS: BP 135/70
[2019-09-11 22:00] VITALS: BP 120/72
[2019-09-12] MEDS: GLUCERNA 1.2 1,000 ML BOTTLE GT SCH ×6 (00:12→20:29)
[2019-09-12] MEDS: METOCLOPRAMIDE HCL 10 MG/10 ML UDC GT SCH ×5 (00:12→23:19)
[2019-09-12] MEDS: LEVOTHYROXINE SODIUM 88 MCG TABLET GT SCH (05:03)
[2019-09-12] MEDS: OMEPRAZOLE 20 MG CAPSULE.DR GT SCH (05:03)
[2019-09-12 07:21] VITALS: BP 99/59
[2019-09-12] MEDS: MULTIVIT W/MINERALS 1 TAB TABLET GT SCH (08:19)
[2019-09-12] MEDS: PROSTAT (PYXIS) 30 ML UDC GT SCH ×3 (08:19→16:36)
[2019-09-12] MEDS: ACIDOPHILUS/BULGARICUS 1 EACH TAB.CHEW GT SCH ×2 (08:19→16:36)
[2019-09-12] MEDS: CARBOXYMETHYLCELLULOSE SODIUM 0.4 ML DROPERETTE EACHEYE SCH (08:19)
[2019-09-12] MEDS: LEVETIRACETAM SOL (5 ML) 100 MG/ML UDC GT SCH ×2 (08:19→20:29)
[2019-09-12] MEDS: COD LIVER OIL/ZINC OXIDE 120 GM TUBE TP SCH ×2 (08:20→21:05)
[2019-09-12] MEDS: ZINC SULFATE 220 MG CAPSULE GT SCH (08:20)
[2019-09-12] MEDS: TRIAMCINOLONE ACETONIDE 0.1% CR 15 GM TUBE TP SCH ×2 (08:20→21:05)
[2019-09-12] MEDS: ACETAMINOPHEN 650 MG/20 ML UDC- SA PATIENTS-PAIN ONLY GT SCH ×2 (08:20→20:30)
[2019-09-12] MEDS: ASCORBIC ACID 500 MG TABLET GT SCH (08:20)
[2019-09-12] MEDS: CHLORHEXIDINE GLUCONATE 15 ML UDC MM SCH ×2 (08:20→20:32)
[2019-09-12] MEDS: BACI/NEOM/POLY B OINT PKT 1 UDPKT PACKET TP SCH ×2 (08:21→21:05)
[2019-09-12] MEDS: NYSTATIN CREAM 15 GM TUBE TP SCH ×2 (08:21→21:05)
[2019-09-12] MEDS: HYDROGEN PEROXIDE 480 ML BOTTLE TP SCH ×2 (09:28→20:06)
[2019-09-12 14:42] VITALS: BP 126/76
--- NOTE | 2019-09-12 20:09 | NUR ---
RT NOTE PT RECEIVED TRACHED ON COOL AEROSOL @ 28%. SX DONE, TRACH SECURED AND PATENT. AEROSOL WATER LEVEL GOOD. NO DISTRESS NOTED. WILL CONTINUE TO MONITOR T/O SHIFT. Addendum: 09/12/19 at 2009 by LETITIA BENITES RT Amended: Links added.
[2019-09-12 20:14] VITALS: BP 122/64
[2019-09-12 22:00] VITALS: BP 120/70
[2019-09-13] MEDS: GLUCERNA 1.2 1,000 ML BOTTLE GT SCH ×6 (00:04→20:17)
[2019-09-13] MEDS: OMEPRAZOLE 20 MG CAPSULE.DR GT SCH (05:05)
[2019-09-13] MEDS: LEVOTHYROXINE SODIUM 88 MCG TABLET GT SCH (05:05)
[2019-09-13] MEDS: METOCLOPRAMIDE HCL 10 MG/10 ML UDC GT SCH ×3 (05:05→18:23)
[2019-09-13 07:15] VITALS: BP 130/62
[2019-09-13] MEDS: LEVETIRACETAM SOL (5 ML) 100 MG/ML UDC GT SCH ×2 (09:12→20:17)
[2019-09-13] MEDS: ZINC SULFATE 220 MG CAPSULE GT SCH (09:12)
[2019-09-13] MEDS: ACETAMINOPHEN 650 MG/20 ML UDC- SA PATIENTS-PAIN ONLY GT SCH ×2 (09:12→20:17)
[2019-09-13] MEDS: PROSTAT (PYXIS) 30 ML UDC GT SCH ×3 (09:12→16:36)
[2019-09-13] MEDS: ASCORBIC ACID 500 MG TABLET GT SCH (09:12)
[2019-09-13] MEDS: MULTIVIT W/MINERALS 1 TAB TABLET GT SCH (09:12)
[2019-09-13] MEDS: CARBOXYMETHYLCELLULOSE SODIUM 0.4 ML DROPERETTE EACHEYE SCH (09:12)
[2019-09-13] MEDS: ACIDOPHILUS/BULGARICUS 1 EACH TAB.CHEW GT SCH ×2 (09:12→16:36)
[2019-09-13] MEDS: COD LIVER OIL/ZINC OXIDE 120 GM TUBE TP SCH ×2 (09:13→21:13)
[2019-09-13] MEDS: TRIAMCINOLONE ACETONIDE 0.1% CR 15 GM TUBE TP SCH ×2 (09:13→21:13)
[2019-09-13] MEDS: BACI/NEOM/POLY B OINT PKT 1 UDPKT PACKET TP SCH ×2 (09:13→21:13)
[2019-09-13] MEDS: CHLORHEXIDINE GLUCONATE 15 ML UDC MM SCH ×2 (09:13→20:17)
[2019-09-13] MEDS: NYSTATIN CREAM 15 GM TUBE TP SCH ×2 (09:13→21:13)
[2019-09-13] MEDS: HYDROGEN PEROXIDE 480 ML BOTTLE TP SCH ×2 (09:44→20:54)
--- NOTE | 2019-09-13 12:03 | NUR ---
[facility] Communication System: This SW uploaded video of patient sleeping on [employer] Communication system for patient's daughter, Reyna Galindo [phone] to see. SW will continue to promote patient and family communication
[2019-09-13 12:51] VITALS: BP 130/62
--- NOTE | 2019-09-13 14:00 | NUR ---
Seen and examined by TERESA Smith, NNO given.
--- NOTE | 2019-09-13 19:42 | NUR ---
RT NOTE PT RECEIVED TRACHED ON COOL AEROSOL @ 28%. SX DONE, TRACH SECURED AND PATENT. AEROSOL WATER LEVEL GOOD. NO DISTRESS NOTED. WILL CONTINUE TO MONITOR T/O SHIFT. Addendum: 09/13/19 at 1942 by LETITIA BENITES RT Amended: Links added.
[2019-09-13 20:25] VITALS: BP 124/72
[2019-09-13 22:30] VITALS: BP 124/68
[2019-09-14] MEDS: GLUCERNA 1.2 1,000 ML BOTTLE GT SCH ×6 (00:09→20:14)
[2019-09-14] MEDS: METOCLOPRAMIDE HCL 10 MG/10 ML UDC GT SCH ×5 (00:09→23:06)
[2019-09-14] MEDS: LEVOTHYROXINE SODIUM 88 MCG TABLET GT SCH (05:05)
[2019-09-14] MEDS: OMEPRAZOLE 20 MG CAPSULE.DR GT SCH (05:05)
[2019-09-14 07:31] VITALS: BP 127/68
[2019-09-14] MEDS: ACIDOPHILUS/BULGARICUS 1 EACH TAB.CHEW GT SCH ×2 (09:00→16:20)
[2019-09-14] MEDS: ACETAMINOPHEN 650 MG/20 ML UDC- SA PATIENTS-PAIN ONLY GT SCH ×2 (09:00→20:15)
[2019-09-14] MEDS: ASCORBIC ACID 500 MG TABLET GT SCH (09:00)
[2019-09-14] MEDS: ZINC SULFATE 220 MG CAPSULE GT SCH (09:00)
[2019-09-14] MEDS: BACI/NEOM/POLY B OINT PKT 1 UDPKT PACKET TP SCH ×2 (09:00→20:15)
[2019-09-14] MEDS: TRIAMCINOLONE ACETONIDE 0.1% CR 15 GM TUBE TP SCH ×2 (09:00→20:15)
[2019-09-14] MEDS: CARBOXYMETHYLCELLULOSE SODIUM 0.4 ML DROPERETTE EACHEYE SCH (09:00)
[2019-09-14] MEDS: LEVETIRACETAM SOL (5 ML) 100 MG/ML UDC GT SCH ×2 (09:00→20:14)
[2019-09-14] MEDS: PROSTAT (PYXIS) 30 ML UDC GT SCH ×3 (09:00→16:20)
[2019-09-14] MEDS: COD LIVER OIL/ZINC OXIDE 120 GM TUBE TP SCH ×2 (09:00→20:15)
[2019-09-14] MEDS: NYSTATIN CREAM 15 GM TUBE TP SCH ×2 (09:00→20:15)
[2019-09-14] MEDS: CHLORHEXIDINE GLUCONATE 15 ML UDC MM SCH ×2 (09:00→20:15)
[2019-09-14] MEDS: MULTIVIT W/MINERALS 1 TAB TABLET GT SCH (09:00)
[2019-09-14] MEDS: HYDROGEN PEROXIDE 480 ML BOTTLE TP SCH ×2 (09:14→20:15)
[2019-09-14 10:00] VITALS: BP 127/68
[2019-09-14 15:05] VITALS: BP 126/70
[2019-09-14 20:17] VITALS: BP 119/66
[2019-09-14 22:00] VITALS: BP 119/66
[2019-09-15] MEDS: GLUCERNA 1.2 1,000 ML BOTTLE GT SCH ×6 (01:00→20:21)
[2019-09-15] MEDS: OMEPRAZOLE 20 MG CAPSULE.DR GT SCH (05:03)
[2019-09-15] MEDS: METOCLOPRAMIDE HCL 10 MG/10 ML UDC GT SCH ×4 (05:03→23:16)
[2019-09-15] MEDS: LEVOTHYROXINE SODIUM 88 MCG TABLET GT SCH (05:03)
[2019-09-15 07:20] VITALS: BP 126/78
[2019-09-15] MEDS: CARBOXYMETHYLCELLULOSE SODIUM 0.4 ML DROPERETTE EACHEYE SCH (08:44)
[2019-09-15] MEDS: CHLORHEXIDINE GLUCONATE 15 ML UDC MM SCH ×2 (08:45→20:21)
[2019-09-15] MEDS: MULTIVIT W/MINERALS 1 TAB TABLET GT SCH (08:45)
[2019-09-15] MEDS: ACIDOPHILUS/BULGARICUS 1 EACH TAB.CHEW GT SCH ×2 (08:45→17:00)
[2019-09-15] MEDS: PROSTAT (PYXIS) 30 ML UDC GT SCH ×3 (08:45→17:00)
[2019-09-15] MEDS: ASCORBIC ACID 500 MG TABLET GT SCH (08:45)
[2019-09-15] MEDS: ZINC SULFATE 220 MG CAPSULE GT SCH (08:45)
[2019-09-15] MEDS: LEVETIRACETAM SOL (5 ML) 100 MG/ML UDC GT SCH ×2 (08:45→20:21)
[2019-09-15] MEDS: ACETAMINOPHEN 650 MG/20 ML UDC- SA PATIENTS-PAIN ONLY GT SCH ×2 (08:45→20:21)
[2019-09-15] MEDS: BACI/NEOM/POLY B OINT PKT 1 UDPKT PACKET TP SCH ×2 (08:46→20:21)
[2019-09-15] MEDS: TRIAMCINOLONE ACETONIDE 0.1% CR 15 GM TUBE TP SCH ×2 (08:46→20:21)
[2019-09-15] MEDS: COD LIVER OIL/ZINC OXIDE 120 GM TUBE TP SCH ×2 (08:46→20:21)
[2019-09-15] MEDS: NYSTATIN CREAM 15 GM TUBE TP SCH ×2 (08:46→20:21)
[2019-09-15] MEDS: HYDROGEN PEROXIDE 480 ML BOTTLE TP SCH ×2 (09:52→21:00)
[2019-09-15 11:13] VITALS: BP 122/69
[2019-09-15 19:36] VITALS: BP 145/75
[2019-09-15 22:00] VITALS: BP 145/75
[2019-09-16] MEDS: GLUCERNA 1.2 1,000 ML BOTTLE GT SCH ×6 (01:00→20:14)
[2019-09-16] MEDS: OMEPRAZOLE 20 MG CAPSULE.DR GT SCH (05:05)
[2019-09-16] MEDS: LEVOTHYROXINE SODIUM 88 MCG TABLET GT SCH (05:05)
[2019-09-16] MEDS: METOCLOPRAMIDE HCL 10 MG/10 ML UDC GT SCH ×4 (05:05→23:58)
[2019-09-16] MEDS: CARBOXYMETHYLCELLULOSE SODIUM 0.4 ML DROPERETTE EACHEYE SCH (08:50)
[2019-09-16] MEDS: ACIDOPHILUS/BULGARICUS 1 EACH TAB.CHEW GT SCH ×2 (08:51→17:26)
[2019-09-16] MEDS: MULTIVIT W/MINERALS 1 TAB TABLET GT SCH (08:51)
[2019-09-16] MEDS: ACETAMINOPHEN 650 MG/20 ML UDC- SA PATIENTS-PAIN ONLY GT SCH ×2 (08:51→20:16)
[2019-09-16] MEDS: CHLORHEXIDINE GLUCONATE 15 ML UDC MM SCH ×2 (08:51→20:16)
[2019-09-16] MEDS: LEVETIRACETAM SOL (5 ML) 100 MG/ML UDC GT SCH ×2 (08:51→20:14)
[2019-09-16] MEDS: PROSTAT (PYXIS) 30 ML UDC GT SCH ×3 (08:51→17:26)
[2019-09-16] MEDS: TRIAMCINOLONE ACETONIDE 0.1% CR 15 GM TUBE TP SCH ×2 (08:51→22:05)
[2019-09-16] MEDS: ZINC SULFATE 220 MG CAPSULE GT SCH (08:51)
[2019-09-16] MEDS: ASCORBIC ACID 500 MG TABLET GT SCH (08:51)
[2019-09-16] MEDS: COD LIVER OIL/ZINC OXIDE 120 GM TUBE TP SCH ×2 (08:52→22:05)
[2019-09-16] MEDS: BACI/NEOM/POLY B OINT PKT 1 UDPKT PACKET TP SCH ×2 (08:52→22:05)
[2019-09-16] MEDS: NYSTATIN CREAM 15 GM TUBE TP SCH ×2 (08:52→22:05)
[2019-09-16] MEDS: HYDROGEN PEROXIDE 480 ML BOTTLE TP SCH ×2 (09:00→21:44)
[2019-09-16 10:43] VITALS: BP 116/61
--- NOTE | 2019-09-16 12:21 | NUR ---
MONTHLY TRACH CHANGE DONE PER RT PROTOCOL. PT. IS AWAKE BUT UNABLE TO FOLLOW COMMANDS. TRACH CHANGED TOLERATED WELL WITH MINIMAL BLEEDING ON TRACH SITE. BREATH SOUNDS CLEAR BILATERAL WITH SYMMETRICAL CHEST RISE POST TRACH CHANGED. Addendum: 09/16/19 at 1222 by BURAK DODSON RT Amended: Links added.
[2019-09-16 13:43] VITALS: BP 124/65
[2019-09-16 20:54] VITALS: BP 135/68
[2019-09-16 23:01] VITALS: BP 135/68
[2019-09-17] MEDS: GLUCERNA 1.2 1,000 ML BOTTLE GT SCH ×6 (00:02→20:18)
[2019-09-17] MEDS: OMEPRAZOLE 20 MG CAPSULE.DR GT SCH (05:11)
[2019-09-17] MEDS: LEVOTHYROXINE SODIUM 88 MCG TABLET GT SCH (05:11)
[2019-09-17] MEDS: METOCLOPRAMIDE HCL 10 MG/10 ML UDC GT SCH ×4 (05:11→23:58)
[2019-09-17] MEDS: ACIDOPHILUS/BULGARICUS 1 EACH TAB.CHEW GT SCH ×2 (08:33→17:16)
[2019-09-17] MEDS: PROSTAT (PYXIS) 30 ML UDC GT SCH ×3 (08:33→17:16)
[2019-09-17] MEDS: LEVETIRACETAM SOL (5 ML) 100 MG/ML UDC GT SCH ×2 (08:33→20:18)
[2019-09-17] MEDS: CHLORHEXIDINE GLUCONATE 15 ML UDC MM SCH ×2 (08:33→20:19)
[2019-09-17] MEDS: CARBOXYMETHYLCELLULOSE SODIUM 0.4 ML DROPERETTE EACHEYE SCH (08:33)
[2019-09-17] MEDS: ZINC SULFATE 220 MG CAPSULE GT SCH (08:33)
[2019-09-17] MEDS: ACETAMINOPHEN 650 MG/20 ML UDC- SA PATIENTS-PAIN ONLY GT SCH ×2 (08:33→20:19)
[2019-09-17] MEDS: ASCORBIC ACID 500 MG TABLET GT SCH (08:33)
[2019-09-17] MEDS: MULTIVIT W/MINERALS 1 TAB TABLET GT SCH (08:33)
[2019-09-17] MEDS: COD LIVER OIL/ZINC OXIDE 120 GM TUBE TP SCH ×2 (08:34→20:19)
[2019-09-17] MEDS: TRIAMCINOLONE ACETONIDE 0.1% CR 15 GM TUBE TP SCH ×2 (08:34→20:19)
[2019-09-17] MEDS: BACI/NEOM/POLY B OINT PKT 1 UDPKT PACKET TP SCH ×2 (08:34→20:19)
[2019-09-17] MEDS: NYSTATIN CREAM 15 GM TUBE TP SCH ×2 (08:34→20:19)
[2019-09-17] MEDS: HYDROGEN PEROXIDE 480 ML BOTTLE TP SCH ×2 (09:00→21:00)
[2019-09-17 10:00] VITALS: BP 126/70
[2019-09-17 11:18] VITALS: BP 124/71
--- NOTE | 2019-09-17 12:10 | NUR ---
Family Invite to IDT: This SW called the patient's daughter, Reyna Galindo [phone] to invite her to the IDT on 09/20/2019 12:30 pm via phone conference. However, the call went to voicemail and SW left call back number.
--- NOTE | 2019-09-17 14:58 | NUR ---
Patient/ Family Video Chat: SW received a call from the patients daughter, Marielena Jeong [phone] requesting Zoom video call with her mother.This SW facilitated video call between family and patient. Marielena Jeong thanked JOSSE. JOSSE will continue to promote family/patient communication.
[2019-09-17 20:04] VITALS: BP 129/73
[2019-09-17 22:50] VITALS: BP 129/73
[2019-09-18] MEDS: GLUCERNA 1.2 1,000 ML BOTTLE GT SCH ×6 (00:08→20:25)
[2019-09-18] MEDS: METOCLOPRAMIDE HCL 10 MG/10 ML UDC GT SCH ×4 (05:05→23:49)
[2019-09-18] MEDS: LEVOTHYROXINE SODIUM 88 MCG TABLET GT SCH (05:05)
[2019-09-18] MEDS: OMEPRAZOLE 20 MG CAPSULE.DR GT SCH (05:05)
[2019-09-18 07:25] VITALS: BP 129/77
[2019-09-18] MEDS: ACETAMINOPHEN 650 MG/20 ML UDC- SA PATIENTS-PAIN ONLY GT SCH ×2 (09:00→20:27)
[2019-09-18] MEDS: ZINC SULFATE 220 MG CAPSULE GT SCH (09:00)
[2019-09-18] MEDS: ASCORBIC ACID 500 MG TABLET GT SCH (09:00)
[2019-09-18] MEDS: PROSTAT (PYXIS) 30 ML UDC GT SCH ×3 (09:00→16:38)
[2019-09-18] MEDS: ACIDOPHILUS/BULGARICUS 1 EACH TAB.CHEW GT SCH ×2 (09:00→16:37)
[2019-09-18] MEDS: CARBOXYMETHYLCELLULOSE SODIUM 0.4 ML DROPERETTE EACHEYE SCH (09:00)
[2019-09-18] MEDS: LEVETIRACETAM SOL (5 ML) 100 MG/ML UDC GT SCH ×2 (09:00→20:25)
[2019-09-18] MEDS: MULTIVIT W/MINERALS 1 TAB TABLET GT SCH (09:00)
[2019-09-18] MEDS: CHLORHEXIDINE GLUCONATE 15 ML UDC MM SCH ×2 (09:00→20:27)
[2019-09-18] MEDS: HYDROGEN PEROXIDE 480 ML BOTTLE TP SCH ×2 (09:16→20:04)
[2019-09-18] MEDS: NYSTATIN CREAM 15 GM TUBE TP SCH ×2 (10:00→21:14)
[2019-09-18] MEDS: COD LIVER OIL/ZINC OXIDE 120 GM TUBE TP SCH ×2 (10:00→21:14)
[2019-09-18] MEDS: TRIAMCINOLONE ACETONIDE 0.1% CR 15 GM TUBE TP SCH ×2 (10:00→21:14)
[2019-09-18] MEDS: BACI/NEOM/POLY B OINT PKT 1 UDPKT PACKET TP SCH ×2 (10:00→21:14)
[2019-09-18 12:00] VITALS: BP 124/74
--- NOTE | 2019-09-18 20:04 | NUR ---
RT NOTE: RECEIVED TRACH PATIENT ON COOL AEROSOL. TRACH CARE DONE. TRACH IS PATENT AND SECURED. SX DONE PRN. NO RESP DISTRESS NOTED AT THIS TIME. WILL CONT TO MONITOR PT. Addendum: 09/19/19 at 0216 by RACHEL AVALOS RT Amended: Links added.
[2019-09-18 20:10] VITALS: BP 110/63
[2019-09-18 22:48] VITALS: BP 120/70
[2019-09-19] MEDS: GLUCERNA 1.2 1,000 ML BOTTLE GT SCH ×6 (00:03→21:20)
[2019-09-19] MEDS: LEVOTHYROXINE SODIUM 88 MCG TABLET GT SCH (05:10)
[2019-09-19] MEDS: OMEPRAZOLE 20 MG CAPSULE.DR GT SCH (05:10)
[2019-09-19] MEDS: METOCLOPRAMIDE HCL 10 MG/10 ML UDC GT SCH ×4 (05:10→23:03)
[2019-09-19 07:11] VITALS: BP 134/84
[2019-09-19] MEDS: CARBOXYMETHYLCELLULOSE SODIUM 0.4 ML DROPERETTE EACHEYE SCH (08:39)
[2019-09-19] MEDS: COD LIVER OIL/ZINC OXIDE 120 GM TUBE TP SCH ×2 (08:39→21:20)
[2019-09-19] MEDS: TRIAMCINOLONE ACETONIDE 0.1% CR 15 GM TUBE TP SCH ×2 (08:39→21:20)
[2019-09-19] MEDS: CHLORHEXIDINE GLUCONATE 15 ML UDC MM SCH ×2 (08:39→21:20)
[2019-09-19] MEDS: ZINC SULFATE 220 MG CAPSULE GT SCH (08:39)
[2019-09-19] MEDS: MULTIVIT W/MINERALS 1 TAB TABLET GT SCH (08:39)
[2019-09-19] MEDS: LEVETIRACETAM SOL (5 ML) 100 MG/ML UDC GT SCH ×2 (08:39→21:20)
[2019-09-19] MEDS: ACIDOPHILUS/BULGARICUS 1 EACH TAB.CHEW GT SCH ×2 (08:39→16:18)
[2019-09-19] MEDS: PROSTAT (PYXIS) 30 ML UDC GT SCH ×3 (08:39→16:18)
[2019-09-19] MEDS: ASCORBIC ACID 500 MG TABLET GT SCH (08:39)
[2019-09-19] MEDS: ACETAMINOPHEN 650 MG/20 ML UDC- SA PATIENTS-PAIN ONLY GT SCH ×2 (08:39→21:20)
[2019-09-19] MEDS: NYSTATIN CREAM 15 GM TUBE TP SCH ×2 (09:00→21:20)
[2019-09-19] MEDS: BACI/NEOM/POLY B OINT PKT 1 UDPKT PACKET TP SCH ×2 (09:00→21:21)
[2019-09-19] MEDS: HYDROGEN PEROXIDE 480 ML BOTTLE TP SCH ×2 (10:00→19:59)
--- NOTE | 2019-09-19 14:30 | NUR ---
Seen and examined by Dr. Ross, NNO given.
[2019-09-19 14:57] VITALS: BP 134/84
--- NOTE | 2019-09-19 17:26 | NUR ---
Seen and examined by Becca Smith DIRECTOR OF OPERATIONS, NNO given.
[2019-09-19 19:32] VITALS: BP 149/78
--- NOTE | 2019-09-19 19:59 | NUR ---
RT NOTE: RECEIVED TRACH PATIENT ON COOL AEROSOL. TRACH CARE DONE. TRACH IS PATENT AND SECURED. SX DONE PRN. NO RESP DISTRESS NOTED AT THIS TIME. WILL CONT TO MONITOR PT. Addendum: 09/19/19 at 2000 by RACHEL AVALOS RT Amended: Links added.
[2019-09-19 22:09] VITALS: BP 116/59
[2019-09-20] MEDS: GLUCERNA 1.2 1,000 ML BOTTLE GT SCH ×6 (00:01→21:43)
[2019-09-20] MEDS: LEVOTHYROXINE SODIUM 88 MCG TABLET GT SCH (05:14)
[2019-09-20] MEDS: OMEPRAZOLE 20 MG CAPSULE.DR GT SCH (05:14)
[2019-09-20] MEDS: METOCLOPRAMIDE HCL 10 MG/10 ML UDC GT SCH ×3 (05:14→18:19)
[2019-09-20 07:10] VITALS: BP 127/73
[2019-09-20] MEDS: LEVETIRACETAM SOL (5 ML) 100 MG/ML UDC GT SCH ×2 (08:45→21:43)
[2019-09-20] MEDS: ACETAMINOPHEN 650 MG/20 ML UDC- SA PATIENTS-PAIN ONLY GT SCH ×2 (08:45→21:00)
[2019-09-20] MEDS: MULTIVIT W/MINERALS 1 TAB TABLET GT SCH (08:45)
[2019-09-20] MEDS: TRIAMCINOLONE ACETONIDE 0.1% CR 15 GM TUBE TP SCH ×2 (08:45→21:00)
[2019-09-20] MEDS: ZINC SULFATE 220 MG CAPSULE GT SCH (08:45)
[2019-09-20] MEDS: ACIDOPHILUS/BULGARICUS 1 EACH TAB.CHEW GT SCH ×2 (08:45→16:34)
[2019-09-20] MEDS: CARBOXYMETHYLCELLULOSE SODIUM 0.4 ML DROPERETTE EACHEYE SCH (08:45)
[2019-09-20] MEDS: ASCORBIC ACID 500 MG TABLET GT SCH (08:45)
[2019-09-20] MEDS: PROSTAT (PYXIS) 30 ML UDC GT SCH ×3 (08:45→16:34)
[2019-09-20] MEDS: COD LIVER OIL/ZINC OXIDE 120 GM TUBE TP SCH ×2 (08:45→21:00)
[2019-09-20] MEDS: NYSTATIN CREAM 15 GM TUBE TP SCH ×2 (08:46→21:00)
[2019-09-20] MEDS: BACI/NEOM/POLY B OINT PKT 1 UDPKT PACKET TP SCH ×2 (08:46→21:00)
[2019-09-20] MEDS: HYDROGEN PEROXIDE 480 ML BOTTLE TP SCH ×2 (09:00→19:59)
[2019-09-20] MEDS: CHLORHEXIDINE GLUCONATE 15 ML UDC MM SCH ×2 (09:00→21:00)
--- NOTE | 2019-09-20 16:13 | NUR ---
INTERDISCIPLINARY PLAN OF CARE CONFERENCE was held today. The patients responsible green party/daughter, Reyna Galindo [phone] did not participate via phone conference. Charge nurse discussed the pt. is stable; 09/11/19 Right upper arm scratch and Tx. Dr. Monet and Interdisciplinary team discussed the plan of care in detail. Current orders as well as treatments and medications were reviewed. See other disciplines IDT notes for further details.
[2019-09-20 18:20] VITALS: BP 127/73
[2019-09-20 19:49] VITALS: BP 130/74
--- NOTE | 2019-09-20 19:59 | NUR ---
RT NOTE: RECEIVED TRACH PATIENT ON COOL AEROSOL. TRACH CARE DONE. TRACH IS PATENT AND SECURED. SX DONE PRN. NO RESP DISTRESS NOTED AT THIS TIME. WILL CONT TO MONITOR PT. Addendum: 09/20/19 at 2006 by RACHEL AVALOS RT Amended: Links added.
[2019-09-20 22:00] VITALS: BP 130/74
[2019-09-21] MEDS: METOCLOPRAMIDE HCL 10 MG/10 ML UDC GT SCH ×4 (00:35→18:18)
[2019-09-21] MEDS: GLUCERNA 1.2 1,000 ML BOTTLE GT SCH ×6 (01:00→20:23)
[2019-09-21] MEDS: OMEPRAZOLE 20 MG CAPSULE.DR GT SCH (06:18)
[2019-09-21] MEDS: LEVOTHYROXINE SODIUM 88 MCG TABLET GT SCH (06:18)
[2019-09-21 07:30] VITALS: BP 108/76
[2019-09-21] MEDS: HYDROGEN PEROXIDE 480 ML BOTTLE TP SCH ×2 (08:10→21:05)
[2019-09-21] MEDS: NYSTATIN CREAM 15 GM TUBE TP SCH ×2 (09:00→20:25)
[2019-09-21] MEDS: BACI/NEOM/POLY B OINT PKT 1 UDPKT PACKET TP SCH ×2 (09:00→20:25)
[2019-09-21] MEDS: ACIDOPHILUS/BULGARICUS 1 EACH TAB.CHEW GT SCH ×2 (09:00→16:57)
[2019-09-21] MEDS: ACETAMINOPHEN 650 MG/20 ML UDC- SA PATIENTS-PAIN ONLY GT SCH ×2 (09:00→20:24)
[2019-09-21] MEDS: TRIAMCINOLONE ACETONIDE 0.1% CR 15 GM TUBE TP SCH ×2 (09:00→20:24)
[2019-09-21] MEDS: ZINC SULFATE 220 MG CAPSULE GT SCH (09:00)
[2019-09-21] MEDS: PROSTAT (PYXIS) 30 ML UDC GT SCH ×3 (09:00→16:57)
[2019-09-21] MEDS: CARBOXYMETHYLCELLULOSE SODIUM 0.4 ML DROPERETTE EACHEYE SCH (09:00)
[2019-09-21] MEDS: MULTIVIT W/MINERALS 1 TAB TABLET GT SCH (09:00)
[2019-09-21] MEDS: ASCORBIC ACID 500 MG TABLET GT SCH (09:00)
[2019-09-21] MEDS: LEVETIRACETAM SOL (5 ML) 100 MG/ML UDC GT SCH ×2 (09:00→20:23)
[2019-09-21] MEDS: COD LIVER OIL/ZINC OXIDE 120 GM TUBE TP SCH ×2 (09:00→20:25)
[2019-09-21] MEDS: CHLORHEXIDINE GLUCONATE 15 ML UDC MM SCH ×2 (09:00→20:24)
[2019-09-21 10:00] VITALS: BP 119/71
[2019-09-21 19:42] VITALS: BP 126/67
[2019-09-21 22:00] VITALS: BP 126/67
[2019-09-22] MEDS: METOCLOPRAMIDE HCL 10 MG/10 ML UDC GT SCH ×4 (00:25→17:11)
[2019-09-22] MEDS: GLUCERNA 1.2 1,000 ML BOTTLE GT SCH ×6 (00:25→20:25)
[2019-09-22] MEDS: LEVOTHYROXINE SODIUM 88 MCG TABLET GT SCH (05:04)
[2019-09-22] MEDS: OMEPRAZOLE 20 MG CAPSULE.DR GT SCH (05:04)
[2019-09-22] MEDS: HYDROGEN PEROXIDE 480 ML BOTTLE TP SCH ×2 (07:51→19:52)
[2019-09-22 07:59] VITALS: BP 113/70
[2019-09-22] MEDS: PROSTAT (PYXIS) 30 ML UDC GT SCH ×3 (09:00→17:11)
[2019-09-22] MEDS: TRIAMCINOLONE ACETONIDE 0.1% CR 15 GM TUBE TP SCH ×2 (09:00→20:25)
[2019-09-22] MEDS: LEVETIRACETAM SOL (5 ML) 100 MG/ML UDC GT SCH ×2 (09:00→20:25)
[2019-09-22] MEDS: NYSTATIN CREAM 15 GM TUBE TP SCH ×2 (09:00→20:26)
[2019-09-22] MEDS: ACIDOPHILUS/BULGARICUS 1 EACH TAB.CHEW GT SCH ×2 (09:00→17:11)
[2019-09-22] MEDS: ZINC SULFATE 220 MG CAPSULE GT SCH (09:00)
[2019-09-22] MEDS: CARBOXYMETHYLCELLULOSE SODIUM 0.4 ML DROPERETTE EACHEYE SCH (09:00)
[2019-09-22] MEDS: CHLORHEXIDINE GLUCONATE 15 ML UDC MM SCH ×2 (09:00→20:25)
[2019-09-22] MEDS: ACETAMINOPHEN 650 MG/20 ML UDC- SA PATIENTS-PAIN ONLY GT SCH ×2 (09:00→20:25)
[2019-09-22] MEDS: COD LIVER OIL/ZINC OXIDE 120 GM TUBE TP SCH ×2 (09:00→20:26)
[2019-09-22] MEDS: BACI/NEOM/POLY B OINT PKT 1 UDPKT PACKET TP SCH ×2 (09:00→20:26)
[2019-09-22] MEDS: ASCORBIC ACID 500 MG TABLET GT SCH (09:00)
[2019-09-22] MEDS: MULTIVIT W/MINERALS 1 TAB TABLET GT SCH (09:00)
[2019-09-22 12:48] VITALS: BP 111/70
[2019-09-22 19:38] VITALS: BP 139/71
[2019-09-22 22:00] VITALS: BP 139/71
[2019-09-23] MEDS: GLUCERNA 1.2 1,000 ML BOTTLE GT SCH ×6 (00:19→20:05)
[2019-09-23] MEDS: METOCLOPRAMIDE HCL 10 MG/10 ML UDC GT SCH ×4 (00:19→18:30)
[2019-09-23] MEDS: OMEPRAZOLE 20 MG CAPSULE.DR GT SCH (05:16)
[2019-09-23] MEDS: LEVOTHYROXINE SODIUM 88 MCG TABLET GT SCH (05:16)
[2019-09-23 07:35] VITALS: BP 124/64
[2019-09-23] MEDS: CHLORHEXIDINE GLUCONATE 15 ML UDC MM SCH ×2 (08:33→20:06)
[2019-09-23] MEDS: LEVETIRACETAM SOL (5 ML) 100 MG/ML UDC GT SCH ×2 (08:33→20:05)
[2019-09-23] MEDS: ACIDOPHILUS/BULGARICUS 1 EACH TAB.CHEW GT SCH ×2 (08:33→17:07)
[2019-09-23] MEDS: PROSTAT (PYXIS) 30 ML UDC GT SCH ×3 (08:33→17:07)
[2019-09-23] MEDS: CARBOXYMETHYLCELLULOSE SODIUM 0.4 ML DROPERETTE EACHEYE SCH (08:33)
[2019-09-23] MEDS: ASCORBIC ACID 500 MG TABLET GT SCH (08:33)
[2019-09-23] MEDS: MULTIVIT W/MINERALS 1 TAB TABLET GT SCH (08:33)
[2019-09-23] MEDS: ZINC SULFATE 220 MG CAPSULE GT SCH (08:33)
[2019-09-23] MEDS: ACETAMINOPHEN 650 MG/20 ML UDC- SA PATIENTS-PAIN ONLY GT SCH ×2 (08:33→20:06)
[2019-09-23] MEDS: COD LIVER OIL/ZINC OXIDE 120 GM TUBE TP SCH ×2 (09:00→20:06)
[2019-09-23] MEDS: BACI/NEOM/POLY B OINT PKT 1 UDPKT PACKET TP SCH ×2 (09:00→20:06)
[2019-09-23] MEDS: HYDROGEN PEROXIDE 480 ML BOTTLE TP SCH ×2 (10:00→21:00)
[2019-09-23 11:27] VITALS: BP 111/70
[2019-09-23 19:27] VITALS: BP 125/66
[2019-09-23 22:33] VITALS: BP 125/66
[2019-09-24] MEDS: METOCLOPRAMIDE HCL 10 MG/10 ML UDC GT SCH ×4 (00:23→17:16)
[2019-09-24] MEDS: GLUCERNA 1.2 1,000 ML BOTTLE GT SCH ×6 (01:03→21:18)
[2019-09-24] MEDS: OMEPRAZOLE 20 MG CAPSULE.DR GT SCH (05:12)
[2019-09-24] MEDS: LEVOTHYROXINE SODIUM 88 MCG TABLET GT SCH (05:12)
[2019-09-24 06:15] VITALS: BP 122/72
[2019-09-24 07:55] VITALS: BP 115/71
[2019-09-24] MEDS: HYDROGEN PEROXIDE 480 ML BOTTLE TP SCH ×2 (08:20→20:47)
[2019-09-24] MEDS: CARBOXYMETHYLCELLULOSE SODIUM 0.4 ML DROPERETTE EACHEYE SCH (08:50)
[2019-09-24] MEDS: ACETAMINOPHEN 650 MG/20 ML UDC- SA PATIENTS-PAIN ONLY GT SCH ×2 (08:50→20:47)
[2019-09-24] MEDS: PROSTAT (PYXIS) 30 ML UDC GT SCH ×3 (08:50→17:16)
[2019-09-24] MEDS: CHLORHEXIDINE GLUCONATE 15 ML UDC MM SCH ×2 (08:50→20:47)
[2019-09-24] MEDS: LEVETIRACETAM SOL (5 ML) 100 MG/ML UDC GT SCH ×2 (08:50→20:46)
[2019-09-24] MEDS: ACIDOPHILUS/BULGARICUS 1 EACH TAB.CHEW GT SCH ×2 (08:50→17:16)
[2019-09-24] MEDS: MULTIVIT W/MINERALS 1 TAB TABLET GT SCH (08:50)
[2019-09-24] MEDS: ZINC SULFATE 220 MG CAPSULE GT SCH (08:50)
[2019-09-24] MEDS: ASCORBIC ACID 500 MG TABLET GT SCH (08:50)
[2019-09-24] MEDS: BACI/NEOM/POLY B OINT PKT 1 UDPKT PACKET TP SCH (08:51)
[2019-09-24] MEDS: COD LIVER OIL/ZINC OXIDE 120 GM TUBE TP SCH ×2 (08:51→20:47)
[2019-09-24 11:39] VITALS: BP 115/71
[2019-09-24 20:05] VITALS: BP 108/74
[2019-09-24] MEDS: ZINC OXIDE 30 GM TUBE TP SCH (21:00)
[2019-09-24 22:00] VITALS: BP 108/74
[2019-09-25] MEDS: METOCLOPRAMIDE HCL 10 MG/10 ML UDC GT SCH ×5 (00:50→23:24)
[2019-09-25] MEDS: GLUCERNA 1.2 1,000 ML BOTTLE GT SCH ×6 (00:50→21:01)
[2019-09-25] MEDS: OMEPRAZOLE 20 MG CAPSULE.DR GT SCH (05:04)
[2019-09-25] MEDS: LEVOTHYROXINE SODIUM 88 MCG TABLET GT SCH (05:04)
[2019-09-25 07:27] VITALS: BP 122/63
[2019-09-25] MEDS: HYDROGEN PEROXIDE 480 ML BOTTLE TP SCH ×2 (09:00→19:45)
[2019-09-25] MEDS: CARBOXYMETHYLCELLULOSE SODIUM 0.4 ML DROPERETTE EACHEYE SCH (09:54)
[2019-09-25] MEDS: CHLORHEXIDINE GLUCONATE 15 ML UDC MM SCH ×2 (09:55→21:01)
[2019-09-25] MEDS: ACETAMINOPHEN 650 MG/20 ML UDC- SA PATIENTS-PAIN ONLY GT SCH ×2 (09:55→21:01)
[2019-09-25] MEDS: ASCORBIC ACID 500 MG TABLET GT SCH (09:55)
[2019-09-25] MEDS: MULTIVIT W/MINERALS 1 TAB TABLET GT SCH (09:55)
[2019-09-25] MEDS: ACIDOPHILUS/BULGARICUS 1 EACH TAB.CHEW GT SCH ×2 (09:55→16:23)
[2019-09-25] MEDS: LEVETIRACETAM SOL (5 ML) 100 MG/ML UDC GT SCH ×2 (09:55→21:01)
[2019-09-25] MEDS: PROSTAT (PYXIS) 30 ML UDC GT SCH ×3 (09:55→17:17)
[2019-09-25] MEDS: ZINC SULFATE 220 MG CAPSULE GT SCH (09:55)
[2019-09-25] MEDS: COD LIVER OIL/ZINC OXIDE 120 GM TUBE TP SCH ×2 (09:55→21:01)
--- NOTE | 2019-09-25 11:30 | NUR ---
Seen and examined by Dr. Ross, NNO given. Dr. Ross made aware that patient's rectal area is raw due to episode of loose stool. Patient has existing order of PRN Imodium. Will administer as needed.
--- NOTE | 2019-09-25 14:44 | NUR ---
11:30 am-Patient/Family Video Call: SW called the patients daughter, Marielena Miller [phone] to facilitate a video call. However, the call went to voicemail and SW left message and call back number. 1:45 pm-The SW received a call back from Marielena Miller and SW facilitated video call between patient and family.
[2019-09-25 17:18] VITALS: BP 122/63
[2019-09-25 20:10] VITALS: BP 121/66
[2019-09-25] MEDS: NYSTATIN CREAM 15 GM TUBE TP SCH (21:01)
[2019-09-25] MEDS: TRIAMCINOLONE ACETONIDE 0.1% CR 15 GM TUBE TP SCH (21:01)
[2019-09-25] MEDS: ZINC OXIDE 30 GM TUBE TP SCH (21:03)
[2019-09-25 22:25] VITALS: BP 121/66
[2019-09-26] MEDS: GLUCERNA 1.2 1,000 ML BOTTLE GT SCH ×6 (01:00→20:57)
[2019-09-26] MEDS: LEVOTHYROXINE SODIUM 88 MCG TABLET GT SCH (05:27)
[2019-09-26] MEDS: OMEPRAZOLE 20 MG CAPSULE.DR GT SCH (05:27)
[2019-09-26] MEDS: METOCLOPRAMIDE HCL 10 MG/10 ML UDC GT SCH ×4 (05:27→23:43)
[2019-09-26 07:24] VITALS: BP 125/72
[2019-09-26] MEDS: HYDROGEN PEROXIDE 480 ML BOTTLE TP SCH ×2 (08:47→20:01)
[2019-09-26] MEDS: LEVETIRACETAM SOL (5 ML) 100 MG/ML UDC GT SCH ×2 (08:52→20:57)
[2019-09-26] MEDS: CARBOXYMETHYLCELLULOSE SODIUM 0.4 ML DROPERETTE EACHEYE SCH (08:52)
[2019-09-26] MEDS: ACIDOPHILUS/BULGARICUS 1 EACH TAB.CHEW GT SCH ×2 (08:52→17:02)
[2019-09-26] MEDS: MULTIVIT W/MINERALS 1 TAB TABLET GT SCH (08:52)
[2019-09-26] MEDS: PROSTAT (PYXIS) 30 ML UDC GT SCH ×3 (08:52→17:02)
[2019-09-26] MEDS: COD LIVER OIL/ZINC OXIDE 120 GM TUBE TP SCH ×2 (08:53→20:58)
[2019-09-26] MEDS: ASCORBIC ACID 500 MG TABLET GT SCH (08:53)
[2019-09-26] MEDS: ZINC SULFATE 220 MG CAPSULE GT SCH (08:53)
[2019-09-26] MEDS: ACETAMINOPHEN 650 MG/20 ML UDC- SA PATIENTS-PAIN ONLY GT SCH ×2 (08:53→20:58)
[2019-09-26] MEDS: TRIAMCINOLONE ACETONIDE 0.1% CR 15 GM TUBE TP SCH ×2 (08:53→20:58)
[2019-09-26] MEDS: CHLORHEXIDINE GLUCONATE 15 ML UDC MM SCH ×2 (08:53→20:58)
[2019-09-26] MEDS: ZINC OXIDE 30 GM TUBE TP SCH ×2 (09:00→20:58)
[2019-09-26] MEDS: NYSTATIN CREAM 15 GM TUBE TP SCH ×2 (09:00→20:58)
[2019-09-26] MEDS: LOPERAMIDE HCL (2 MG CAP) 2 MG CAPSULE GT PRN (17:02)
[2019-09-26 18:41] VITALS: BP 125/72
[2019-09-26 20:14] VITALS: BP 129/57
[2019-09-26 22:05] VITALS: BP 129/57
[2019-09-27] MEDS: GLUCERNA 1.2 1,000 ML BOTTLE GT SCH ×6 (00:25→21:00)
[2019-09-27] MEDS: METOCLOPRAMIDE HCL 10 MG/10 ML UDC GT SCH ×4 (05:28→23:12)
[2019-09-27] MEDS: LEVOTHYROXINE SODIUM 88 MCG TABLET GT SCH (05:28)
[2019-09-27] MEDS: OMEPRAZOLE 20 MG CAPSULE.DR GT SCH (05:28)
[2019-09-27 08:00] VITALS: BP 128/71
[2019-09-27] MEDS: TRIAMCINOLONE ACETONIDE 0.1% CR 15 GM TUBE TP SCH ×2 (08:35→21:01)
[2019-09-27] MEDS: PROSTAT (PYXIS) 30 ML UDC GT SCH ×3 (08:35→16:58)
[2019-09-27] MEDS: LEVETIRACETAM SOL (5 ML) 100 MG/ML UDC GT SCH ×2 (08:35→21:00)
[2019-09-27] MEDS: ZINC SULFATE 220 MG CAPSULE GT SCH (08:35)
[2019-09-27] MEDS: ACETAMINOPHEN 650 MG/20 ML UDC- SA PATIENTS-PAIN ONLY GT SCH ×2 (08:35→21:00)
[2019-09-27] MEDS: ACIDOPHILUS/BULGARICUS 1 EACH TAB.CHEW GT SCH ×2 (08:35→16:58)
[2019-09-27] MEDS: ASCORBIC ACID 500 MG TABLET GT SCH (08:35)
[2019-09-27] MEDS: MULTIVIT W/MINERALS 1 TAB TABLET GT SCH (08:35)
[2019-09-27] MEDS: CHLORHEXIDINE GLUCONATE 15 ML UDC MM SCH ×2 (08:35→21:00)
[2019-09-27] MEDS: CARBOXYMETHYLCELLULOSE SODIUM 0.4 ML DROPERETTE EACHEYE SCH (08:35)
[2019-09-27] MEDS: COD LIVER OIL/ZINC OXIDE 120 GM TUBE TP SCH ×2 (08:36→21:01)
[2019-09-27] MEDS: ZINC OXIDE 30 GM TUBE TP SCH ×2 (09:00→21:01)
[2019-09-27] MEDS: NYSTATIN CREAM 15 GM TUBE TP SCH ×2 (09:00→21:01)
[2019-09-27] MEDS: HYDROGEN PEROXIDE 480 ML BOTTLE TP SCH ×2 (09:00→21:00)
--- NOTE | 2019-09-27 10:03 | NUR ---
Monthly progress notes.Resident is passive not responding to tactile stimuli.Eyes open most of the time but does not track.Engaged in watching tv on news.Resident received daily visits for sensory stimulation, hand massage,music,tv,reality orientation.Continue to provide these activities as needed.
--- NOTE | 2019-09-27 13:31 | NUR ---
Facility Protocols: Per Director's request, this SW updated the patient's DPOA, Reyna Galindo [phone] via [employer] portal regarding the facility's protocols pertaining to the ongoing COVID-19 pandemic. SW informed the family that essential infection control practices continue to be updated and implemented in our facility. SW informed the family that the visitation restrictions will remain in place until otherwise stated by The Department of Public Health. SW reminded Reyna of alternative means of communication including Zoom video calls, calling our facility and [employer] Communication System. Family will be updated if any changes occur.
[2019-09-27 15:41] VITALS: BP 128/71
[2019-09-27] MEDS: LOPERAMIDE HCL (2 MG CAP) 2 MG CAPSULE GT PRN (16:59)
[2019-09-27 20:14] VITALS: BP 126/80
[2019-09-27 22:00] VITALS: BP 126/80
[2019-09-28] MEDS: GLUCERNA 1.2 1,000 ML BOTTLE GT SCH ×6 (01:00→20:11)
[2019-09-28] MEDS: LEVOTHYROXINE SODIUM 88 MCG TABLET GT SCH (05:42)
[2019-09-28] MEDS: METOCLOPRAMIDE HCL 10 MG/10 ML UDC GT SCH ×4 (05:42→23:25)
[2019-09-28] MEDS: OMEPRAZOLE 20 MG CAPSULE.DR GT SCH (05:42)
[2019-09-28 07:18] VITALS: BP 134/71
[2019-09-28] MEDS: HYDROGEN PEROXIDE 480 ML BOTTLE TP SCH ×2 (08:55→21:51)
[2019-09-28] MEDS: LEVETIRACETAM SOL (5 ML) 100 MG/ML UDC GT SCH ×2 (09:21→20:11)
[2019-09-28] MEDS: PROSTAT (PYXIS) 30 ML UDC GT SCH ×3 (09:21→17:30)
[2019-09-28] MEDS: ASCORBIC ACID 500 MG TABLET GT SCH (09:21)
[2019-09-28] MEDS: ACIDOPHILUS/BULGARICUS 1 EACH TAB.CHEW GT SCH ×2 (09:21→17:30)
[2019-09-28] MEDS: MULTIVIT W/MINERALS 1 TAB TABLET GT SCH (09:21)
[2019-09-28] MEDS: CHLORHEXIDINE GLUCONATE 15 ML UDC MM SCH ×2 (09:21→20:11)
[2019-09-28] MEDS: ZINC SULFATE 220 MG CAPSULE GT SCH (09:21)
[2019-09-28] MEDS: ACETAMINOPHEN 650 MG/20 ML UDC- SA PATIENTS-PAIN ONLY GT SCH ×2 (09:21→20:11)
[2019-09-28] MEDS: CARBOXYMETHYLCELLULOSE SODIUM 0.4 ML DROPERETTE EACHEYE SCH (09:21)
[2019-09-28 10:00] VITALS: BP 128/85
[2019-09-28] MEDS: ZINC OXIDE 30 GM TUBE TP SCH ×2 (10:00→20:11)
[2019-09-28] MEDS: TRIAMCINOLONE ACETONIDE 0.1% CR 15 GM TUBE TP SCH ×2 (10:00→20:11)
[2019-09-28] MEDS: NYSTATIN CREAM 15 GM TUBE TP SCH ×2 (10:00→20:11)
[2019-09-28] MEDS: COD LIVER OIL/ZINC OXIDE 120 GM TUBE TP SCH ×2 (10:00→20:11)
--- NOTE | 2019-09-28 12:15 | NUR ---
Obtained an order from DESEAN Soler, to d/c current sacral wound treatment order with Calcium Alginate and change it to iodoform. Orders noted and carried out.
[2019-09-28 20:03] VITALS: BP 120/67
[2019-09-28 22:00] VITALS: BP 120/67
[2019-09-29] MEDS: GLUCERNA 1.2 1,000 ML BOTTLE GT SCH ×7 (01:00→20:19)
[2019-09-29] MEDS: OMEPRAZOLE 20 MG CAPSULE.DR GT SCH (05:14)
[2019-09-29] MEDS: METOCLOPRAMIDE HCL 10 MG/10 ML UDC GT SCH ×3 (05:14→17:23)
[2019-09-29] MEDS: LEVOTHYROXINE SODIUM 88 MCG TABLET GT SCH (05:14)
[2019-09-29 07:21] VITALS: BP 134/70
[2019-09-29] MEDS: HYDROGEN PEROXIDE 480 ML BOTTLE TP SCH ×2 (09:00→21:15)
[2019-09-29] MEDS: PROSTAT (PYXIS) 30 ML UDC GT SCH ×3 (09:10→16:51)
[2019-09-29] MEDS: MULTIVIT W/MINERALS 1 TAB TABLET GT SCH (09:10)
[2019-09-29] MEDS: ACIDOPHILUS/BULGARICUS 1 EACH TAB.CHEW GT SCH ×2 (09:10→16:51)
[2019-09-29] MEDS: CARBOXYMETHYLCELLULOSE SODIUM 0.4 ML DROPERETTE EACHEYE SCH (09:10)
[2019-09-29] MEDS: LEVETIRACETAM SOL (5 ML) 100 MG/ML UDC GT SCH ×2 (09:10→20:10)
[2019-09-29] MEDS: ZINC SULFATE 220 MG CAPSULE GT SCH (09:11)
[2019-09-29] MEDS: ACETAMINOPHEN 650 MG/20 ML UDC- SA PATIENTS-PAIN ONLY GT SCH ×3 (09:11→20:19)
[2019-09-29] MEDS: ASCORBIC ACID 500 MG TABLET GT SCH (09:11)
[2019-09-29] MEDS: CHLORHEXIDINE GLUCONATE 15 ML UDC MM SCH ×3 (09:12→20:19)
[2019-09-29] MEDS: TRIAMCINOLONE ACETONIDE 0.1% CR 15 GM TUBE TP SCH ×3 (09:12→20:19)
[2019-09-29] MEDS: COD LIVER OIL/ZINC OXIDE 120 GM TUBE TP SCH ×3 (09:12→20:20)
[2019-09-29] MEDS: ZINC OXIDE 30 GM TUBE TP SCH ×3 (09:12→20:20)
[2019-09-29] MEDS: NYSTATIN CREAM 15 GM TUBE TP SCH ×2 (09:12→20:10)
[2019-09-29 10:00] VITALS: BP 134/70
[2019-09-29 19:33] VITALS: BP 125/73
[2019-09-29 22:00] VITALS: BP 134/70
[2019-09-30] MEDS: METOCLOPRAMIDE HCL 10 MG/10 ML UDC GT SCH ×4 (00:04→17:49)
[2019-09-30] MEDS: GLUCERNA 1.2 1,000 ML BOTTLE GT SCH ×6 (00:04→20:26)
[2019-09-30] MEDS: OMEPRAZOLE 20 MG CAPSULE.DR GT SCH (05:27)
[2019-09-30] MEDS: LEVOTHYROXINE SODIUM 88 MCG TABLET GT SCH (05:27)
[2019-09-30] MEDS: HYDROGEN PEROXIDE 480 ML BOTTLE TP SCH ×2 (09:00→21:45)
[2019-09-30] MEDS: ACIDOPHILUS/BULGARICUS 1 EACH TAB.CHEW GT SCH ×2 (09:14→17:48)
[2019-09-30] MEDS: PROSTAT (PYXIS) 30 ML UDC GT SCH ×3 (09:14→17:48)
[2019-09-30] MEDS: LEVETIRACETAM SOL (5 ML) 100 MG/ML UDC GT SCH ×2 (09:14→20:26)
[2019-09-30] MEDS: CARBOXYMETHYLCELLULOSE SODIUM 0.4 ML DROPERETTE EACHEYE SCH (09:14)
[2019-09-30] MEDS: MULTIVIT W/MINERALS 1 TAB TABLET GT SCH (09:14)
[2019-09-30] MEDS: COD LIVER OIL/ZINC OXIDE 120 GM TUBE TP SCH ×2 (09:15→21:45)
[2019-09-30] MEDS: CHLORHEXIDINE GLUCONATE 15 ML UDC MM SCH ×2 (09:15→21:45)
[2019-09-30] MEDS: ACETAMINOPHEN 650 MG/20 ML UDC- SA PATIENTS-PAIN ONLY GT SCH ×2 (09:15→20:27)
[2019-09-30] MEDS: ASCORBIC ACID 500 MG TABLET GT SCH (09:15)
[2019-09-30] MEDS: ZINC SULFATE 220 MG CAPSULE GT SCH (09:15)
[2019-09-30] MEDS: TRIAMCINOLONE ACETONIDE 0.1% CR 15 GM TUBE TP SCH ×2 (09:15→21:45)
[2019-09-30] MEDS: NYSTATIN CREAM 15 GM TUBE TP SCH ×2 (09:15→21:45)
[2019-09-30] MEDS: ZINC OXIDE 30 GM TUBE TP SCH ×2 (09:15→21:45)
[2019-09-30 10:13] VITALS: BP 111/69
[2019-09-30 11:17] VITALS: BP 111/69
--- NOTE | 2019-09-30 15:09 | NUR ---
Patient/ Family Video Chat: SW was informed by Charge Nurse, Sepideh that the patients daughter, Marielena Jeong [phone] was requesting Zoom video call with the patient.This SW facilitated video call between family and patient. However, patient's was sleeping and Marielena Jeong stated, "I will call back later or tomorrow so I can speak to her when she's awake". SW will be available to facilitate video calls as needed.
[2019-09-30 19:54] VITALS: BP 139/66
[2019-09-30 22:17] VITALS: BP 139/66
[2019-10-01] MEDS: METOCLOPRAMIDE HCL 10 MG/10 ML UDC GT SCH ×4 (00:55→17:00)
[2019-10-01] MEDS: GLUCERNA 1.2 1,000 ML BOTTLE GT SCH ×6 (00:55→20:22)
[2019-10-01] MEDS: OMEPRAZOLE 20 MG CAPSULE.DR GT SCH (05:07)
[2019-10-01] MEDS: LEVOTHYROXINE SODIUM 88 MCG TABLET GT SCH (05:07)
[2019-10-01 08:43] VITALS: BP 148/73
[2019-10-01] MEDS: ACIDOPHILUS/BULGARICUS 1 EACH TAB.CHEW GT SCH ×2 (09:00→16:59)
[2019-10-01] MEDS: TRIAMCINOLONE ACETONIDE 0.1% CR 15 GM TUBE TP SCH ×2 (09:00→21:12)
[2019-10-01] MEDS: ZINC SULFATE 220 MG CAPSULE GT SCH (09:00)
[2019-10-01] MEDS: HYDROGEN PEROXIDE 480 ML BOTTLE TP SCH ×2 (09:00→21:00)
[2019-10-01] MEDS: CHLORHEXIDINE GLUCONATE 15 ML UDC MM SCH ×2 (09:00→20:23)
[2019-10-01] MEDS: CARBOXYMETHYLCELLULOSE SODIUM 0.4 ML DROPERETTE EACHEYE SCH (09:00)
[2019-10-01] MEDS: ZINC OXIDE 30 GM TUBE TP SCH ×2 (09:00→21:12)
[2019-10-01] MEDS: MULTIVIT W/MINERALS 1 TAB TABLET GT SCH (09:00)
[2019-10-01] MEDS: NYSTATIN CREAM 15 GM TUBE TP SCH ×2 (09:00→21:12)
[2019-10-01] MEDS: PROSTAT (PYXIS) 30 ML UDC GT SCH ×3 (09:00→16:59)
[2019-10-01] MEDS: LEVETIRACETAM SOL (5 ML) 100 MG/ML UDC GT SCH ×2 (09:00→20:22)
[2019-10-01] MEDS: COD LIVER OIL/ZINC OXIDE 120 GM TUBE TP SCH ×2 (09:00→21:12)
[2019-10-01] MEDS: ACETAMINOPHEN 650 MG/20 ML UDC- SA PATIENTS-PAIN ONLY GT SCH ×2 (09:00→20:23)
[2019-10-01] MEDS: ASCORBIC ACID 500 MG TABLET GT SCH (09:00)
[2019-10-01 17:50] VITALS: BP 109/65
[2019-10-01 20:01] VITALS: BP 140/78
[2019-10-01 22:33] VITALS: BP 140/78
[2019-10-02] MEDS: METOCLOPRAMIDE HCL 10 MG/10 ML UDC GT SCH ×4 (00:50→17:47)
[2019-10-02] MEDS: GLUCERNA 1.2 1,000 ML BOTTLE GT SCH ×6 (00:50→20:14)
[2019-10-02] MEDS: LEVOTHYROXINE SODIUM 88 MCG TABLET GT SCH (05:08)
[2019-10-02] MEDS: OMEPRAZOLE 20 MG CAPSULE.DR GT SCH (05:08)
[2019-10-02 07:13] VITALS: BP 124/68
[2019-10-02] MEDS: ZINC SULFATE 220 MG CAPSULE GT SCH (09:00)
[2019-10-02] MEDS: ASCORBIC ACID 500 MG TABLET GT SCH (09:00)
[2019-10-02] MEDS: COD LIVER OIL/ZINC OXIDE 120 GM TUBE TP SCH ×2 (09:00→21:49)
[2019-10-02] MEDS: NYSTATIN CREAM 15 GM TUBE TP SCH ×2 (09:00→21:49)
[2019-10-02] MEDS: ZINC OXIDE 30 GM TUBE TP SCH ×2 (09:00→21:49)
[2019-10-02] MEDS: PROSTAT (PYXIS) 30 ML UDC GT SCH ×3 (09:00→16:47)
[2019-10-02] MEDS: ACIDOPHILUS/BULGARICUS 1 EACH TAB.CHEW GT SCH ×2 (09:00→16:47)
[2019-10-02] MEDS: CARBOXYMETHYLCELLULOSE SODIUM 0.4 ML DROPERETTE EACHEYE SCH (09:00)
[2019-10-02] MEDS: LEVETIRACETAM SOL (5 ML) 100 MG/ML UDC GT SCH ×2 (09:00→20:14)
[2019-10-02] MEDS: TRIAMCINOLONE ACETONIDE 0.1% CR 15 GM TUBE TP SCH ×2 (09:00→21:49)
[2019-10-02] MEDS: ACETAMINOPHEN 650 MG/20 ML UDC- SA PATIENTS-PAIN ONLY GT SCH ×2 (09:00→20:14)
[2019-10-02] MEDS: MULTIVIT W/MINERALS 1 TAB TABLET GT SCH (09:00)
[2019-10-02] MEDS: CHLORHEXIDINE GLUCONATE 15 ML UDC MM SCH ×2 (09:00→20:14)
[2019-10-02] MEDS: HYDROGEN PEROXIDE 480 ML BOTTLE TP SCH ×2 (09:29→21:00)
--- NOTE | 2019-10-02 12:49 | NUR ---
Patient/ Family Video Chat: JOSSE was informed by Key Sander, Rebecca that the patients daughter, Marielena Jeong [phone] was requesting Zoom video call with the patient.This SW facilitated video call between family and patient. Marielena Jeong thanked JOSSE. JOSSE will continue efforts to promote patient/family interaction.
[2019-10-02 13:26] VITALS: BP 111/68
[2019-10-02 20:01] VITALS: BP 125/76
[2019-10-02 22:29] VITALS: BP 125/76
[2019-10-03] MEDS: GLUCERNA 1.2 1,000 ML BOTTLE GT SCH ×6 (00:17→20:30)
[2019-10-03] MEDS: METOCLOPRAMIDE HCL 10 MG/10 ML UDC GT SCH ×5 (00:17→23:25)
[2019-10-03] MEDS: OMEPRAZOLE 20 MG CAPSULE.DR GT SCH (05:04)
[2019-10-03] MEDS: LEVOTHYROXINE SODIUM 88 MCG TABLET GT SCH (05:04)
[2019-10-03 07:25] VITALS: BP 134/79
[2019-10-03] MEDS: HYDROGEN PEROXIDE 480 ML BOTTLE TP SCH ×2 (08:35→20:10)
[2019-10-03] MEDS: CARBOXYMETHYLCELLULOSE SODIUM 0.4 ML DROPERETTE EACHEYE SCH (09:00)
[2019-10-03] MEDS: LEVETIRACETAM SOL (5 ML) 100 MG/ML UDC GT SCH ×2 (09:00→20:30)
[2019-10-03] MEDS: ASCORBIC ACID 500 MG TABLET GT SCH (09:00)
[2019-10-03] MEDS: MULTIVIT W/MINERALS 1 TAB TABLET GT SCH (09:00)
[2019-10-03] MEDS: CHLORHEXIDINE GLUCONATE 15 ML UDC MM SCH ×2 (09:00→20:31)
[2019-10-03] MEDS: ZINC SULFATE 220 MG CAPSULE GT SCH (09:00)
[2019-10-03] MEDS: PROSTAT (PYXIS) 30 ML UDC GT SCH ×3 (09:00→16:55)
[2019-10-03] MEDS: ACIDOPHILUS/BULGARICUS 1 EACH TAB.CHEW GT SCH ×2 (09:00→16:55)
[2019-10-03] MEDS: ACETAMINOPHEN 650 MG/20 ML UDC- SA PATIENTS-PAIN ONLY GT SCH ×2 (10:40→20:31)
[2019-10-03] MEDS: ZINC OXIDE 30 GM TUBE TP SCH ×2 (10:50→20:32)
[2019-10-03] MEDS: COD LIVER OIL/ZINC OXIDE 120 GM TUBE TP SCH ×2 (10:50→20:31)
[2019-10-03] MEDS: TRIAMCINOLONE ACETONIDE 0.1% CR 15 GM TUBE TP SCH ×2 (10:50→20:31)
[2019-10-03] MEDS: NYSTATIN CREAM 15 GM TUBE TP SCH ×2 (10:50→20:31)
[2019-10-03 17:05] VITALS: BP 125/61
[2019-10-03 20:39] VITALS: BP 116/65
[2019-10-03 22:03] VITALS: BP 116/65
[2019-10-04] MEDS: GLUCERNA 1.2 1,000 ML BOTTLE GT SCH ×6 (00:17→20:48)
[2019-10-04] MEDS: LEVOTHYROXINE SODIUM 88 MCG TABLET GT SCH (05:05)
[2019-10-04] MEDS: OMEPRAZOLE 20 MG CAPSULE.DR GT SCH (05:05)
[2019-10-04] MEDS: METOCLOPRAMIDE HCL 10 MG/10 ML UDC GT SCH ×4 (05:05→23:22)
[2019-10-04 07:35] VITALS: BP 136/66
[2019-10-04] MEDS: HYDROGEN PEROXIDE 480 ML BOTTLE TP SCH ×2 (08:03→20:10)
[2019-10-04] MEDS: CARBOXYMETHYLCELLULOSE SODIUM 0.4 ML DROPERETTE EACHEYE SCH (09:54)
[2019-10-04] MEDS: PROSTAT (PYXIS) 30 ML UDC GT SCH ×3 (09:55→16:33)
[2019-10-04] MEDS: ACIDOPHILUS/BULGARICUS 1 EACH TAB.CHEW GT SCH ×2 (09:55→16:33)
[2019-10-04] MEDS: MULTIVIT W/MINERALS 1 TAB TABLET GT SCH (09:55)
[2019-10-04] MEDS: LEVETIRACETAM SOL (5 ML) 100 MG/ML UDC GT SCH ×2 (09:55→20:48)
[2019-10-04] MEDS: ACETAMINOPHEN 650 MG/20 ML UDC- SA PATIENTS-PAIN ONLY GT SCH ×2 (09:56→20:48)
[2019-10-04] MEDS: CHLORHEXIDINE GLUCONATE 15 ML UDC MM SCH ×2 (09:56→20:48)
[2019-10-04] MEDS: ASCORBIC ACID 500 MG TABLET GT SCH (09:56)
[2019-10-04] MEDS: ZINC SULFATE 220 MG CAPSULE GT SCH (09:56)
[2019-10-04 10:00] VITALS: BP 133/67
[2019-10-04] MEDS: NYSTATIN CREAM 15 GM TUBE TP SCH ×2 (10:30→20:48)
[2019-10-04] MEDS: COD LIVER OIL/ZINC OXIDE 120 GM TUBE TP SCH ×2 (10:30→20:48)
[2019-10-04] MEDS: TRIAMCINOLONE ACETONIDE 0.1% CR 15 GM TUBE TP SCH ×2 (10:30→20:48)
[2019-10-04] MEDS: ZINC OXIDE 30 GM TUBE TP SCH ×2 (10:30→20:48)
--- NOTE | 2019-10-04 18:20 | NUR ---
Seen and examined by TERESA Smith, no new order given.
[2019-10-04 22:02] VITALS: BP 122/75
[2019-10-05] MEDS: GLUCERNA 1.2 1,000 ML BOTTLE GT SCH ×6 (00:41→20:34)
[2019-10-05] MEDS: METOCLOPRAMIDE HCL 10 MG/10 ML UDC GT SCH ×4 (05:12→23:15)
[2019-10-05] MEDS: LEVOTHYROXINE SODIUM 88 MCG TABLET GT SCH (05:12)
[2019-10-05] MEDS: OMEPRAZOLE 20 MG CAPSULE.DR GT SCH (05:12)
[2019-10-05] MEDS: CARBOXYMETHYLCELLULOSE SODIUM 0.4 ML DROPERETTE EACHEYE SCH (08:58)
[2019-10-05] MEDS: ACIDOPHILUS/BULGARICUS 1 EACH TAB.CHEW GT SCH ×2 (08:58→16:55)
[2019-10-05] MEDS: LEVETIRACETAM SOL (5 ML) 100 MG/ML UDC GT SCH ×2 (08:58→20:34)
[2019-10-05] MEDS: PROSTAT (PYXIS) 30 ML UDC GT SCH ×3 (08:59→16:55)
[2019-10-05] MEDS: NYSTATIN CREAM 15 GM TUBE TP SCH ×2 (09:00→20:34)
[2019-10-05] MEDS: ACETAMINOPHEN 650 MG/20 ML UDC- SA PATIENTS-PAIN ONLY GT SCH ×2 (09:00→20:34)
[2019-10-05] MEDS: ZINC OXIDE 30 GM TUBE TP SCH ×2 (09:00→20:34)
[2019-10-05] MEDS: ASCORBIC ACID 500 MG TABLET GT SCH (09:00)
[2019-10-05] MEDS: ZINC SULFATE 220 MG CAPSULE GT SCH (09:00)
[2019-10-05] MEDS: TRIAMCINOLONE ACETONIDE 0.1% CR 15 GM TUBE TP SCH ×2 (09:00→20:34)
[2019-10-05] MEDS: HYDROGEN PEROXIDE 480 ML BOTTLE TP SCH ×2 (09:00→20:08)
[2019-10-05] MEDS: CHLORHEXIDINE GLUCONATE 15 ML UDC MM SCH ×2 (09:00→20:34)
[2019-10-05] MEDS: MULTIVIT W/MINERALS 1 TAB TABLET GT SCH (09:01)
[2019-10-05] MEDS: COD LIVER OIL/ZINC OXIDE 120 GM TUBE TP SCH ×2 (09:08→20:34)
[2019-10-05 10:00] VITALS: BP 126/67
[2019-10-05 11:28] VITALS: BP 128/61
[2019-10-05 19:31] VITALS: BP 117/79
[2019-10-05 22:04] VITALS: BP 122/57
[2019-10-06] MEDS: GLUCERNA 1.2 1,000 ML BOTTLE GT SCH ×6 (00:26→20:30)
[2019-10-06] MEDS: LEVOTHYROXINE SODIUM 88 MCG TABLET GT SCH (05:00)
[2019-10-06] MEDS: OMEPRAZOLE 20 MG CAPSULE.DR GT SCH (05:00)
[2019-10-06] MEDS: METOCLOPRAMIDE HCL 10 MG/10 ML UDC GT SCH ×3 (05:00→17:20)
[2019-10-06 07:40] VITALS: BP 129/72
[2019-10-06] MEDS: HYDROGEN PEROXIDE 480 ML BOTTLE TP SCH ×2 (08:21→21:50)
[2019-10-06] MEDS: MULTIVIT W/MINERALS 1 TAB TABLET GT SCH (09:44)
[2019-10-06] MEDS: PROSTAT (PYXIS) 30 ML UDC GT SCH ×3 (09:44→17:20)
[2019-10-06] MEDS: LEVETIRACETAM SOL (5 ML) 100 MG/ML UDC GT SCH ×2 (09:44→20:30)
[2019-10-06] MEDS: CARBOXYMETHYLCELLULOSE SODIUM 0.4 ML DROPERETTE EACHEYE SCH (09:44)
[2019-10-06] MEDS: ACIDOPHILUS/BULGARICUS 1 EACH TAB.CHEW GT SCH ×2 (09:44→17:20)
[2019-10-06] MEDS: NYSTATIN CREAM 15 GM TUBE TP SCH ×2 (09:45→20:32)
[2019-10-06] MEDS: ZINC SULFATE 220 MG CAPSULE GT SCH (09:45)
[2019-10-06] MEDS: ACETAMINOPHEN 650 MG/20 ML UDC- SA PATIENTS-PAIN ONLY GT SCH ×2 (09:45→20:31)
[2019-10-06] MEDS: ZINC OXIDE 30 GM TUBE TP SCH ×2 (09:45→20:32)
[2019-10-06] MEDS: TRIAMCINOLONE ACETONIDE 0.1% CR 15 GM TUBE TP SCH ×2 (09:45→20:31)
[2019-10-06] MEDS: CHLORHEXIDINE GLUCONATE 15 ML UDC MM SCH ×2 (09:45→20:31)
[2019-10-06] MEDS: COD LIVER OIL/ZINC OXIDE 120 GM TUBE TP SCH ×2 (09:45→20:31)
[2019-10-06] MEDS: ASCORBIC ACID 500 MG TABLET GT SCH (09:45)
[2019-10-06 12:21] VITALS: BP 121/70
--- NOTE | 2019-10-06 16:05 | NUR ---
RT NOTE RECEIVED PATIENT ON COOL AEROSOL 28% @ 5L. TRACH TUBE IN PLACE, PATENT, AND SECURED WITH TRACH TIE. AMBU BAG AND BACK UP TRACH BY THE BEDSIDE. NO DISTRESS AT THIS TIME. MONITOR THROUGHOUT SHIFT.
[2019-10-06 20:36] VITALS: BP 128/85
[2019-10-06 22:10] VITALS: BP 128/85
[2019-10-07] MEDS: METOCLOPRAMIDE HCL 10 MG/10 ML UDC GT SCH ×5 (00:13→23:34)
[2019-10-07] MEDS: GLUCERNA 1.2 1,000 ML BOTTLE GT SCH ×6 (01:00→20:00)
[2019-10-07] MEDS: OMEPRAZOLE 20 MG CAPSULE.DR GT SCH (05:14)
[2019-10-07] MEDS: LEVOTHYROXINE SODIUM 88 MCG TABLET GT SCH (05:15)
[2019-10-07 07:39] VITALS: BP 124/70
[2019-10-07] MEDS: PROSTAT (PYXIS) 30 ML UDC GT SCH ×3 (08:43→16:54)
[2019-10-07] MEDS: MULTIVIT W/MINERALS 1 TAB TABLET GT SCH (08:43)
[2019-10-07] MEDS: LEVETIRACETAM SOL (5 ML) 100 MG/ML UDC GT SCH ×2 (08:43→20:00)
[2019-10-07] MEDS: CARBOXYMETHYLCELLULOSE SODIUM 0.4 ML DROPERETTE EACHEYE SCH (08:43)
[2019-10-07] MEDS: ACIDOPHILUS/BULGARICUS 1 EACH TAB.CHEW GT SCH ×2 (08:43→16:54)
[2019-10-07] MEDS: ACETAMINOPHEN 650 MG/20 ML UDC- SA PATIENTS-PAIN ONLY GT SCH ×2 (08:44→20:01)
[2019-10-07] MEDS: CHLORHEXIDINE GLUCONATE 15 ML UDC MM SCH ×2 (08:44→20:01)
[2019-10-07] MEDS: ASCORBIC ACID 500 MG TABLET GT SCH (08:44)
[2019-10-07] MEDS: ZINC SULFATE 220 MG CAPSULE GT SCH (08:44)
[2019-10-07] MEDS: COD LIVER OIL/ZINC OXIDE 120 GM TUBE TP SCH ×2 (08:45→20:02)
[2019-10-07] MEDS: TRIAMCINOLONE ACETONIDE 0.1% CR 15 GM TUBE TP SCH ×2 (08:45→20:02)
[2019-10-07] MEDS: NYSTATIN CREAM 15 GM TUBE TP SCH ×2 (08:46→20:02)
[2019-10-07] MEDS: ZINC OXIDE 30 GM TUBE TP SCH ×2 (08:46→20:03)
[2019-10-07] MEDS: HYDROGEN PEROXIDE 480 ML BOTTLE TP SCH ×2 (09:00→20:02)
--- NOTE | 2019-10-07 14:50 | NUR ---
Patient/ Family Video Chat: JOSSE received a call from the patients daughter, Marielena Jeong [phone] requesting Zoom video call with the patient. SW facilitated video call between family and patient. Marielena Jeong thanked JOSSE and stated , "she looks good". JOSSE will continue to promote family/patient communication.
[2019-10-07 16:07] VITALS: BP 126/69
[2019-10-07 20:26] VITALS: BP 132/86
[2019-10-07 22:00] VITALS: BP 132/86
[2019-10-08] MEDS: GLUCERNA 1.2 1,000 ML BOTTLE GT SCH ×6 (00:39→20:16)
[2019-10-08] MEDS: OMEPRAZOLE 20 MG CAPSULE.DR GT SCH (05:12)
[2019-10-08] MEDS: METOCLOPRAMIDE HCL 10 MG/10 ML UDC GT SCH ×3 (05:12→18:07)
[2019-10-08] MEDS: LEVOTHYROXINE SODIUM 88 MCG TABLET GT SCH (05:12)
[2019-10-08 07:39] VITALS: BP 150/83
[2019-10-08] MEDS: COD LIVER OIL/ZINC OXIDE 120 GM TUBE TP SCH ×2 (09:00→20:17)
[2019-10-08] MEDS: MULTIVIT W/MINERALS 1 TAB TABLET GT SCH (09:00)
[2019-10-08] MEDS: LEVETIRACETAM SOL (5 ML) 100 MG/ML UDC GT SCH ×2 (09:00→20:16)
[2019-10-08] MEDS: CARBOXYMETHYLCELLULOSE SODIUM 0.4 ML DROPERETTE EACHEYE SCH (09:00)
[2019-10-08] MEDS: ACETAMINOPHEN 650 MG/20 ML UDC- SA PATIENTS-PAIN ONLY GT SCH ×2 (09:00→20:17)
[2019-10-08] MEDS: CHLORHEXIDINE GLUCONATE 15 ML UDC MM SCH ×2 (09:00→20:17)
[2019-10-08] MEDS: ASCORBIC ACID 500 MG TABLET GT SCH (09:00)
[2019-10-08] MEDS: ACIDOPHILUS/BULGARICUS 1 EACH TAB.CHEW GT SCH ×2 (09:00→16:39)
[2019-10-08] MEDS: NYSTATIN CREAM 15 GM TUBE TP SCH ×2 (09:00→20:18)
[2019-10-08] MEDS: ZINC SULFATE 220 MG CAPSULE GT SCH (09:00)
[2019-10-08] MEDS: TRIAMCINOLONE ACETONIDE 0.1% CR 15 GM TUBE TP SCH ×2 (09:00→20:17)
[2019-10-08] MEDS: PROSTAT (PYXIS) 30 ML UDC GT SCH ×3 (09:00→16:39)
[2019-10-08] MEDS: ZINC OXIDE 30 GM TUBE TP SCH ×2 (09:00→20:18)
--- NOTE | 2019-10-08 09:02 | NUR ---
EAP CLINICIAN reported that the Jamil catheter is out, checked with the balloon still inflated. Re inserted a new one of FR 18x10. tolerated the procedure, no bleeding noted and F/C flowing good. kept clean and comfortable.
[2019-10-08] MEDS: HYDROGEN PEROXIDE 480 ML BOTTLE TP SCH ×2 (09:16→21:00)
[2019-10-08 11:23] VITALS: BP 140/80
[2019-10-08 19:58] VITALS: BP 129/62
[2019-10-08 22:15] VITALS: BP 129/62
[2019-10-09] MEDS: METOCLOPRAMIDE HCL 10 MG/10 ML UDC GT SCH ×5 (00:07→23:38)
[2019-10-09] MEDS: GLUCERNA 1.2 1,000 ML BOTTLE GT SCH ×6 (01:00→20:45)
[2019-10-09] MEDS: OMEPRAZOLE 20 MG CAPSULE.DR GT SCH (05:11)
[2019-10-09] MEDS: LEVOTHYROXINE SODIUM 88 MCG TABLET GT SCH (05:12)
[2019-10-09 07:37] VITALS: BP 107/65
[2019-10-09 08:00] VITALS: BP 107/49
[2019-10-09] MEDS: LEVETIRACETAM SOL (5 ML) 100 MG/ML UDC GT SCH ×2 (08:29→20:45)
[2019-10-09] MEDS: ACIDOPHILUS/BULGARICUS 1 EACH TAB.CHEW GT SCH ×2 (08:29→16:17)
[2019-10-09] MEDS: MULTIVIT W/MINERALS 1 TAB TABLET GT SCH (08:29)
[2019-10-09] MEDS: PROSTAT (PYXIS) 30 ML UDC GT SCH ×3 (08:29→16:17)
[2019-10-09] MEDS: CARBOXYMETHYLCELLULOSE SODIUM 0.4 ML DROPERETTE EACHEYE SCH (08:29)
[2019-10-09] MEDS: ACETAMINOPHEN 650 MG/20 ML UDC- SA PATIENTS-PAIN ONLY GT SCH ×2 (08:37→20:45)
[2019-10-09] MEDS: HYDROGEN PEROXIDE 480 ML BOTTLE TP SCH ×2 (08:46→21:00)
[2019-10-09] MEDS: ZINC SULFATE 220 MG CAPSULE GT SCH (09:00)
[2019-10-09] MEDS: ASCORBIC ACID 500 MG TABLET GT SCH (09:00)
[2019-10-09] MEDS: CHLORHEXIDINE GLUCONATE 15 ML UDC MM SCH ×2 (09:00→20:45)
[2019-10-09] MEDS: ZINC OXIDE 30 GM TUBE TP SCH ×2 (09:37→20:46)
[2019-10-09] MEDS: NYSTATIN CREAM 15 GM TUBE TP SCH ×2 (09:37→20:46)
[2019-10-09] MEDS: TRIAMCINOLONE ACETONIDE 0.1% CR 15 GM TUBE TP SCH ×2 (09:37→20:46)
[2019-10-09] MEDS: COD LIVER OIL/ZINC OXIDE 120 GM TUBE TP SCH ×2 (09:37→20:46)
--- NOTE | 2019-10-09 16:00 | NUR ---
Seen and examined by TERESA Smith, no new order.
--- NOTE | 2019-10-09 17:30 | NUR ---
Jamil catheter noted dislodged out with inflated balloon. New Jamil-catheter placed as ordered. Tolerated procedure well. Urine is yellow clear. Total care provided. All needs met and attended.
[2019-10-09 19:50] VITALS: BP 141/70
[2019-10-09 22:03] VITALS: BP 118/55
[2019-10-10] MEDS: GLUCERNA 1.2 1,000 ML BOTTLE GT SCH ×5 (00:28→20:25)
[2019-10-10] MEDS: LEVOTHYROXINE SODIUM 88 MCG TABLET GT SCH (06:00)
[2019-10-10] MEDS: OMEPRAZOLE 20 MG CAPSULE.DR GT SCH (06:00)
[2019-10-10 07:34] VITALS: BP 124/75
[2019-10-10] MEDS: ASCORBIC ACID 500 MG TABLET GT SCH (09:00)
[2019-10-10] MEDS: ZINC OXIDE 30 GM TUBE TP SCH ×2 (09:00→20:26)
[2019-10-10] MEDS: NYSTATIN CREAM 15 GM TUBE TP SCH ×2 (09:00→20:25)
[2019-10-10] MEDS: HYDROGEN PEROXIDE 480 ML BOTTLE TP SCH ×2 (09:00→20:17)
[2019-10-10] MEDS: PROSTAT (PYXIS) 30 ML UDC GT SCH ×3 (09:00→17:37)
[2019-10-10] MEDS: ACETAMINOPHEN 650 MG/20 ML UDC- SA PATIENTS-PAIN ONLY GT SCH ×2 (09:00→20:25)
[2019-10-10] MEDS: LEVETIRACETAM SOL (5 ML) 100 MG/ML UDC GT SCH ×2 (09:00→20:25)
[2019-10-10] MEDS: ZINC SULFATE 220 MG CAPSULE GT SCH (09:00)
[2019-10-10] MEDS: MULTIVIT W/MINERALS 1 TAB TABLET GT SCH (09:00)
[2019-10-10] MEDS: CARBOXYMETHYLCELLULOSE SODIUM 0.4 ML DROPERETTE EACHEYE SCH (09:00)
[2019-10-10] MEDS: CHLORHEXIDINE GLUCONATE 15 ML UDC MM SCH ×2 (09:00→20:25)
[2019-10-10] MEDS: TRIAMCINOLONE ACETONIDE 0.1% CR 15 GM TUBE TP SCH ×2 (09:00→20:25)
[2019-10-10] MEDS: COD LIVER OIL/ZINC OXIDE 120 GM TUBE TP SCH ×2 (09:00→20:25)
[2019-10-10] MEDS: ACIDOPHILUS/BULGARICUS 1 EACH TAB.CHEW GT SCH ×2 (09:00→17:37)
[2019-10-10] MEDS: METOCLOPRAMIDE HCL 10 MG/10 ML UDC GT SCH ×3 (12:00→23:30)
--- NOTE | 2019-10-10 16:18 | NUR ---
Facility Update: Per SA Hockey Instructor's request, this SW notified the patient's family, Reyna Galindo [phone] via [employer] system that a Sub-Acute employee has tested positive for COVID-19. SW notified families that [facility] is following infection control guidelines at outlined by the [place] Department of Public Health. SW also informed family that all of the residents and staff will be re-tested for COVID-19. SW will be available as needed to support the patient and their family as needed.
[2019-10-10 17:54] VITALS: BP 122/70
[2019-10-10 19:34] VITALS: BP 135/65
[2019-10-10 22:01] VITALS: BP 119/55
[2019-10-11] MEDS: GLUCERNA 1.2 1,000 ML BOTTLE GT SCH ×6 (00:20→20:29)
[2019-10-11] MEDS: OMEPRAZOLE 20 MG CAPSULE.DR GT SCH (05:21)
[2019-10-11] MEDS: LEVOTHYROXINE SODIUM 88 MCG TABLET GT SCH (05:21)
[2019-10-11] MEDS: METOCLOPRAMIDE HCL 10 MG/10 ML UDC GT SCH ×4 (05:21→23:27)
[2019-10-11 07:28] VITALS: BP 133/78
[2019-10-11] MEDS: LEVETIRACETAM SOL (5 ML) 100 MG/ML UDC GT SCH ×2 (09:41→20:29)
[2019-10-11] MEDS: PROSTAT (PYXIS) 30 ML UDC GT SCH ×3 (09:41→16:29)
[2019-10-11] MEDS: ACETAMINOPHEN 650 MG/20 ML UDC- SA PATIENTS-PAIN ONLY GT SCH ×2 (09:41→20:29)
[2019-10-11] MEDS: ACIDOPHILUS/BULGARICUS 1 EACH TAB.CHEW GT SCH ×2 (09:41→16:29)
[2019-10-11] MEDS: ZINC SULFATE 220 MG CAPSULE GT SCH (09:41)
[2019-10-11] MEDS: MULTIVIT W/MINERALS 1 TAB TABLET GT SCH (09:41)
[2019-10-11] MEDS: CARBOXYMETHYLCELLULOSE SODIUM 0.4 ML DROPERETTE EACHEYE SCH (09:41)
[2019-10-11] MEDS: CHLORHEXIDINE GLUCONATE 15 ML UDC MM SCH ×2 (09:41→20:29)
[2019-10-11] MEDS: ASCORBIC ACID 500 MG TABLET GT SCH (09:41)
[2019-10-11] MEDS: HYDROGEN PEROXIDE 480 ML BOTTLE TP SCH ×2 (10:19→20:02)
[2019-10-11] MEDS: TRIAMCINOLONE ACETONIDE 0.1% CR 15 GM TUBE TP SCH ×2 (10:30→20:30)
[2019-10-11] MEDS: ZINC OXIDE 30 GM TUBE TP SCH ×2 (10:30→20:30)
[2019-10-11] MEDS: COD LIVER OIL/ZINC OXIDE 120 GM TUBE TP SCH ×2 (10:30→20:30)
[2019-10-11] MEDS: NYSTATIN CREAM 15 GM TUBE TP SCH ×2 (10:30→20:30)
[2019-10-11 12:22] VITALS: BP 133/72
[2019-10-11 18:19] VITALS: BP 125/62
[2019-10-11 19:44] VITALS: BP 135/66
--- NOTE | 2019-10-11 20:57 | NUR ---
RT NOTE PT RECEIVED TRACHED ON COOL AEROSOL. AMBU BAG/BACK UP TRACH @ BEDSIDE. SX DONE, TRACH SECURED AND PATENT. AEROSOL WATER LEVEL GOOD. NO DISTRESS NOTED AT THIS TIME. WILL CONTINUE TO MONITOR. Addendum: 10/11/19 at 2058 by LETITIA BENITES RT Amended: Links added.
[2019-10-11 22:04] VITALS: BP 126/66
[2019-10-12] MEDS: GLUCERNA 1.2 1,000 ML BOTTLE GT SCH ×6 (00:25→20:25)
[2019-10-12] MEDS: LEVOTHYROXINE SODIUM 88 MCG TABLET GT SCH (05:05)
[2019-10-12] MEDS: METOCLOPRAMIDE HCL 10 MG/10 ML UDC GT SCH ×4 (05:05→23:14)
[2019-10-12] MEDS: OMEPRAZOLE 20 MG CAPSULE.DR GT SCH (05:05)
[2019-10-12 07:37] VITALS: BP 148/71
[2019-10-12] MEDS: LEVETIRACETAM SOL (5 ML) 100 MG/ML UDC GT SCH ×2 (08:40→20:25)
[2019-10-12] MEDS: ACIDOPHILUS/BULGARICUS 1 EACH TAB.CHEW GT SCH ×2 (08:40→17:43)
[2019-10-12] MEDS: CARBOXYMETHYLCELLULOSE SODIUM 0.4 ML DROPERETTE EACHEYE SCH (08:40)
[2019-10-12] MEDS: HYDROGEN PEROXIDE 480 ML BOTTLE TP SCH ×2 (08:41→21:00)
[2019-10-12] MEDS: ACETAMINOPHEN 650 MG/20 ML UDC- SA PATIENTS-PAIN ONLY GT SCH ×2 (08:42→20:25)
[2019-10-12] MEDS: PROSTAT (PYXIS) 30 ML UDC GT SCH ×3 (08:42→17:43)
[2019-10-12] MEDS: ASCORBIC ACID 500 MG TABLET GT SCH (08:43)
[2019-10-12] MEDS: MULTIVIT W/MINERALS 1 TAB TABLET GT SCH (08:54)
[2019-10-12] MEDS: CHLORHEXIDINE GLUCONATE 15 ML UDC MM SCH ×2 (08:54→20:25)
[2019-10-12] MEDS: ZINC SULFATE 220 MG CAPSULE GT SCH (08:54)
[2019-10-12] MEDS: ZINC OXIDE 30 GM TUBE TP SCH ×2 (08:55→20:26)
[2019-10-12] MEDS: NYSTATIN CREAM 15 GM TUBE TP SCH ×2 (08:55→20:25)
[2019-10-12] MEDS: COD LIVER OIL/ZINC OXIDE 120 GM TUBE TP SCH ×2 (08:55→20:25)
[2019-10-12] MEDS: TRIAMCINOLONE ACETONIDE 0.1% CR 15 GM TUBE TP SCH ×2 (08:55→20:25)
[2019-10-12 10:00] VITALS: BP 129/66
--- NOTE | 2019-10-12 17:14 | NUR ---
Notified resident's daughter Reyna that patient's Covid-19 test result is negative. She was also notified that patient has a short seizure episode where it was witnessed by her ADMINISTRATIVE SERVICES DIRECTOR approx 10 sec. where she noted to have spasm. Dr. Ross was notified no new order given. Appreciated the call.
[2019-10-12 20:57] VITALS: BP 131/64
[2019-10-12 22:02] VITALS: BP 118/55
[2019-10-13] MEDS: GLUCERNA 1.2 1,000 ML BOTTLE GT SCH ×6 (05:11→20:07)
[2019-10-13] MEDS: LEVOTHYROXINE SODIUM 88 MCG TABLET GT SCH (05:11)
[2019-10-13] MEDS: METOCLOPRAMIDE HCL 10 MG/10 ML UDC GT SCH ×3 (05:11→17:17)
[2019-10-13] MEDS: OMEPRAZOLE 20 MG CAPSULE.DR GT SCH (05:11)
[2019-10-13 07:44] VITALS: BP 126/67
[2019-10-13] MEDS: CARBOXYMETHYLCELLULOSE SODIUM 0.4 ML DROPERETTE EACHEYE SCH (08:58)
[2019-10-13] MEDS: LEVETIRACETAM SOL (5 ML) 100 MG/ML UDC GT SCH ×2 (08:58→20:08)
[2019-10-13] MEDS: ZINC SULFATE 220 MG CAPSULE GT SCH (08:59)
[2019-10-13] MEDS: MULTIVIT W/MINERALS 1 TAB TABLET GT SCH (08:59)
[2019-10-13] MEDS: ACETAMINOPHEN 650 MG/20 ML UDC- SA PATIENTS-PAIN ONLY GT SCH ×2 (08:59→20:08)
[2019-10-13] MEDS: PROSTAT (PYXIS) 30 ML UDC GT SCH ×3 (08:59→17:17)
[2019-10-13] MEDS: CHLORHEXIDINE GLUCONATE 15 ML UDC MM SCH ×2 (08:59→20:08)
[2019-10-13] MEDS: ASCORBIC ACID 500 MG TABLET GT SCH (08:59)
[2019-10-13] MEDS: ACIDOPHILUS/BULGARICUS 1 EACH TAB.CHEW GT SCH ×2 (08:59→17:17)
[2019-10-13] MEDS: NYSTATIN CREAM 15 GM TUBE TP SCH ×2 (09:00→20:09)
[2019-10-13] MEDS: HYDROGEN PEROXIDE 480 ML BOTTLE TP SCH ×2 (09:00→21:00)
[2019-10-13] MEDS: COD LIVER OIL/ZINC OXIDE 120 GM TUBE TP SCH ×2 (09:00→20:09)
[2019-10-13] MEDS: TRIAMCINOLONE ACETONIDE 0.1% CR 15 GM TUBE TP SCH ×2 (09:00→20:09)
[2019-10-13] MEDS: ZINC OXIDE 30 GM TUBE TP SCH ×2 (09:00→20:09)
[2019-10-13 16:23] VITALS: BP 124/69
[2019-10-13 20:36] VITALS: BP 132/75
[2019-10-13 22:11] VITALS: BP 132/75
[2019-10-14] MEDS: GLUCERNA 1.2 1,000 ML BOTTLE GT SCH ×6 (00:10→20:07)
[2019-10-14] MEDS: METOCLOPRAMIDE HCL 10 MG/10 ML UDC GT SCH ×4 (00:10→17:15)
[2019-10-14] MEDS: LEVOTHYROXINE SODIUM 88 MCG TABLET GT SCH (05:04)
[2019-10-14] MEDS: OMEPRAZOLE 20 MG CAPSULE.DR GT SCH (05:04)
[2019-10-14 07:43] VITALS: BP 135/77
[2019-10-14] MEDS: HYDROGEN PEROXIDE 480 ML BOTTLE TP SCH ×2 (08:08→21:00)
[2019-10-14] MEDS: LEVETIRACETAM SOL (5 ML) 100 MG/ML UDC GT SCH ×2 (08:47→20:08)
[2019-10-14] MEDS: ACIDOPHILUS/BULGARICUS 1 EACH TAB.CHEW GT SCH ×2 (08:47→17:15)
[2019-10-14] MEDS: MULTIVIT W/MINERALS 1 TAB TABLET GT SCH (08:47)
[2019-10-14] MEDS: PROSTAT (PYXIS) 30 ML UDC GT SCH ×3 (08:47→17:15)
[2019-10-14] MEDS: CARBOXYMETHYLCELLULOSE SODIUM 0.4 ML DROPERETTE EACHEYE SCH (08:47)
[2019-10-14] MEDS: ZINC OXIDE 30 GM TUBE TP SCH ×2 (08:48→20:10)
[2019-10-14] MEDS: ASCORBIC ACID 500 MG TABLET GT SCH (08:48)
[2019-10-14] MEDS: TRIAMCINOLONE ACETONIDE 0.1% CR 15 GM TUBE TP SCH ×2 (08:48→20:09)
[2019-10-14] MEDS: COD LIVER OIL/ZINC OXIDE 120 GM TUBE TP SCH ×2 (08:48→20:09)
[2019-10-14] MEDS: ACETAMINOPHEN 650 MG/20 ML UDC- SA PATIENTS-PAIN ONLY GT SCH ×2 (08:48→20:09)
[2019-10-14] MEDS: CHLORHEXIDINE GLUCONATE 15 ML UDC MM SCH ×2 (08:48→20:09)
[2019-10-14] MEDS: NYSTATIN CREAM 15 GM TUBE TP SCH ×2 (08:48→20:10)
[2019-10-14] MEDS: ZINC SULFATE 220 MG CAPSULE GT SCH (08:48)
[2019-10-14 16:19] VITALS: BP 128/70
[2019-10-14 20:09] VITALS: BP 121/61
[2019-10-14 22:09] VITALS: BP 121/61
[2019-10-15] MEDS: METOCLOPRAMIDE HCL 10 MG/10 ML UDC GT SCH ×4 (00:04→17:07)
[2019-10-15] MEDS: GLUCERNA 1.2 1,000 ML BOTTLE GT SCH ×6 (01:00→20:02)
[2019-10-15] MEDS: LEVOTHYROXINE SODIUM 88 MCG TABLET GT SCH (05:22)
[2019-10-15] MEDS: OMEPRAZOLE 20 MG CAPSULE.DR GT SCH (05:22)
[2019-10-15 07:33] VITALS: BP 135/82
[2019-10-15] MEDS: CARBOXYMETHYLCELLULOSE SODIUM 0.4 ML DROPERETTE EACHEYE SCH (08:15)
[2019-10-15] MEDS: ACETAMINOPHEN 650 MG/20 ML UDC- SA PATIENTS-PAIN ONLY GT SCH ×2 (08:16→20:03)
[2019-10-15] MEDS: MULTIVIT W/MINERALS 1 TAB TABLET GT SCH (08:16)
[2019-10-15] MEDS: CHLORHEXIDINE GLUCONATE 15 ML UDC MM SCH ×2 (08:16→20:03)
[2019-10-15] MEDS: LEVETIRACETAM SOL (5 ML) 100 MG/ML UDC GT SCH ×2 (08:16→19:49)
[2019-10-15] MEDS: ZINC SULFATE 220 MG CAPSULE GT SCH (08:16)
[2019-10-15] MEDS: PROSTAT (PYXIS) 30 ML UDC GT SCH ×3 (08:16→17:07)
[2019-10-15] MEDS: ASCORBIC ACID 500 MG TABLET GT SCH (08:16)
[2019-10-15] MEDS: TRIAMCINOLONE ACETONIDE 0.1% CR 15 GM TUBE TP SCH ×2 (08:16→20:03)
[2019-10-15] MEDS: COD LIVER OIL/ZINC OXIDE 120 GM TUBE TP SCH ×2 (08:16→20:03)
[2019-10-15] MEDS: ACIDOPHILUS/BULGARICUS 1 EACH TAB.CHEW GT SCH ×2 (08:16→17:07)
[2019-10-15] MEDS: NYSTATIN CREAM 15 GM TUBE TP SCH ×2 (08:17→20:03)
[2019-10-15] MEDS: ZINC OXIDE 30 GM TUBE TP SCH (08:17)
[2019-10-15] MEDS: HYDROGEN PEROXIDE 480 ML BOTTLE TP SCH ×2 (09:07→21:00)
[2019-10-15 10:00] VITALS: BP 136/85
--- NOTE | 2019-10-15 14:43 | NUR ---
Seen by Dr Ross today. Notified him that pt was seen shaking her left arms for about 3 seconds. He said to keep an eye. Pt was again seen shaking her left arms and left leg for about a minute. Dr Ross ordered to give Ativan 1 mg IV x [address] De Los Santos see her. Notified Dr De Los Santos. Notified pt's daughter Reyna.
[2019-10-15] MEDS ORDERED: LORAZEPAM INJ 2 MG/ML VIAL IVP ONE (15:00)
--- NOTE | 2019-10-15 16:43 | NUR ---
Dr De Los Santos ordered to give Keppra 500 mg GT in the morning and Keppra 1000 mg GT at night. He also ordered CBC CMP Mg Phos LFT UA C&S. Notified Reyna. She said she is fine with the orders.
--- NOTE | 2019-10-15 17:07 | NUR ---
Seen by Dr De Los Santos. No new order at this time, he said to wait for lab results.
[2019-10-15 17:25] LABS: BASOPHILS # (AUTO) 0.1 /CMM (0.0-0.2); BASOPHILS % (AUTO) 1.3 % (0.0-2.0); HEMATOCRIT 40 % (33-45); HEMOGLOBIN 12.7 g/dL (11.5-14.8); LYMPHOCYTES # (AUTO) 1.9 /CMM (0.8-4.8); LYMPHOCYTES % (AUTO) 18.7 % (20.0-44.0); MEAN CORPUSCULAR HGB CONC 32 g/dl (31.0-36.0); MEAN CORPUSCULAR VOLUME 84 fL (82-100); MONOCYTES # (AUTO) 1.6 /CMM (0.1-1.30); NEUTROPHILS # (AUTO) 6.4 /CMM (1.8-8.9); PLATELET COUNT (AUTO) 348 /CMM (150-450); WHITE BLOOD COUNT (AUTO) 10.2 K/uL (4.3-11.0)
[2019-10-15 17:45] LABS: ALBUMIN 2.3 g/dL (3.4-5.0); BILIRUBIN,DIRECT 0.1 mg/dL (0.0-0.2); BILIRUBIN,TOTAL 0.2 mg/dL (0.2-1.0); CALCIUM, SERUM 8.7 mg/dL (8.5-10.1); CREATININE 1.2 mg/dL (0.6-1.3); MAGNESIUM 2.4 mg/dL (1.8-2.4); PHOSPHORUS 3.3 mg/dL (2.5-4.9); POTASSIUM 4.2 mmol/L (3.5-5.1); TOTAL PROTEIN, SERUM 8.3 g/dL (6.4-8.2)
--- NOTE | 2019-10-15 18:23 | NUR ---
Received order to test for Covid-[address] [facility] guidelines. Notified Reyna.
--- NOTE | 2019-10-15 18:41 | NUR ---
Pt's daughter Reyna called. She said she does not want labs done for her mother from here onwards. Notified Dr Ross.
--- NOTE | 2019-10-15 18:43 | NUR ---
Pt's daughter Reyna agreed to doing Covid-19 test.
[2019-10-15 19:53] VITALS: BP 126/60
--- NOTE | 2019-10-15 20:00 | NUR ---
RN NOTES Received pt in bed awake with no episode of seizures noted. Will continue to monitor.
[2019-10-15 20:15] LABS: APPEARANCE,URINE CLOUDY (CLEAR); BILIRUBIN,URINE NEGATIVE (NEGATIVE); BLOOD, URINE MODERATE Ery/uL (NEGATIVE); COLOR,URINE YELLOW (YELLOW); KETONES,URINE NEGATIVE (NEGATIVE); LEUKOCYTE ESTERASE ,URINE MODERATE (NEGATIVE); NITRITE, URINE POSITIVE (NEGATIVE); PH,URINE 8.5 (5.0-8.0); PROTEIN,URINE 30 mg/dl (NEGATIVE); UGLUCOSE >=1000 mg/dL (NEGATIVE); UROBILINOGEN,URINE 0.2 EU/dL (0.2)
--- NOTE | 2019-10-15 21:15 | NUR ---
RN NOTES Collected specimen for Covid testing. Pt tolerated well. Specimen sent to lab.
[2019-10-15 21:33] LABS: BACTERIA,URINE Moderate /HPF (None Seen); SQUAMOUS EPITHELIAL CELL,UR Few /HPF (None Seen); WBC,URINE 51-80 /HPF (0-3)
[2019-10-15 22:34] VITALS: BP 126/60
[2019-10-16] MEDS: METOCLOPRAMIDE HCL 10 MG/10 ML UDC GT SCH ×4 (00:13→18:00)
[2019-10-16] MEDS: GLUCERNA 1.2 1,000 ML BOTTLE GT SCH ×6 (00:35→21:22)
[2019-10-16] MEDS: OMEPRAZOLE 20 MG CAPSULE.DR GT SCH (05:20)
[2019-10-16] MEDS: LEVOTHYROXINE SODIUM 88 MCG TABLET GT SCH (05:20)
--- NOTE | 2019-10-16 07:09 | NUR ---
RN NOTES No episode of seizures noted during shift. Pt in stable condition.
[2019-10-16 07:21] VITALS: BP 128/72
[2019-10-16] MEDS: HYDROGEN PEROXIDE 480 ML BOTTLE TP SCH ×2 (09:00→21:21)
[2019-10-16] MEDS: ZINC SULFATE 220 MG CAPSULE GT SCH (09:22)
[2019-10-16] MEDS: NYSTATIN CREAM 15 GM TUBE TP SCH ×2 (09:22→21:21)
[2019-10-16] MEDS: CARBOXYMETHYLCELLULOSE SODIUM 0.4 ML DROPERETTE EACHEYE SCH (09:22)
[2019-10-16] MEDS: CHLORHEXIDINE GLUCONATE 15 ML UDC MM SCH ×2 (09:22→21:21)
[2019-10-16] MEDS: LEVETIRACETAM SOL (5 ML) 100 MG/ML UDC GT SCH ×2 (09:22→21:21)
[2019-10-16] MEDS: ACETAMINOPHEN 650 MG/20 ML UDC- SA PATIENTS-PAIN ONLY GT SCH ×2 (09:22→21:21)
[2019-10-16] MEDS: MULTIVIT W/MINERALS 1 TAB TABLET GT SCH (09:22)
[2019-10-16] MEDS: ASCORBIC ACID 500 MG TABLET GT SCH (09:22)
[2019-10-16] MEDS: ACIDOPHILUS/BULGARICUS 1 EACH TAB.CHEW GT SCH ×2 (09:22→16:28)
[2019-10-16] MEDS: PROSTAT (PYXIS) 30 ML UDC GT SCH ×3 (09:22→16:28)
[2019-10-16] MEDS: TRIAMCINOLONE ACETONIDE 0.1% CR 15 GM TUBE TP SCH ×2 (09:22→21:21)
[2019-10-16] MEDS: COD LIVER OIL/ZINC OXIDE 120 GM TUBE TP SCH ×2 (09:22→21:21)
[2019-10-16 10:00] VITALS: BP 128/72
--- NOTE | 2019-10-16 11:49 | NUR ---
Healthcare Fraud Report: JOSSE was notified by SA Director that [facility] received Hospice alert notice from [facility] stating that a medication is not covered as it may be covered under Hospice. However, patient is not receiving Hospice Care while residing at [facility]. JOSSE called the patient's DPOA, Reyna Galindo and informed her about fraudulence. Per Reyna, she has never initiated Hospice care for pt. and is agreeable to JOSSE making fraud report. JOSSE filed online Healthcare Fraud Report to [place] Department of Health an Human Services Office of Commercial Green Building Architect [https://tips.oig.hhs.gov/tlafhk-ywivcxgvso-tnmzm/create-complaint]. JOSSE printed and filed the report in patient's chart.
--- NOTE | 2019-10-16 12:12 | NUR ---
Sabas Sadler: SW uploaded picture of patient for the patient's daughter, Reyna [phone] to view on [employer] System.
--- NOTE | 2019-10-16 14:12 | NUR ---
Fraud report to [facility]: This SW called the [facility]'s Office [phone] to consult regarding [facility] However, call went to voicemail and SW and left call back number. SW will follow up as needed.
--- NOTE | 2019-10-16 15:20 | NUR ---
Phone Report to Elsy: This SW received a call back from Marielena Chin [facility]EL: [phone]. JOSSE made phone report and consulted with Marielena. Marielena stated that this is reportable as pt. may be unable to get medication of other medical needs if [facility] has falsely reported that they are providing hospice care for pt. Per Marielena, SW should complete and fax SOC 341 to [phone] within 24 hours and file a complaint to [facility]. Noted SW will follow up.
[2019-10-16 20:01] VITALS: BP 127/62
[2019-10-16 22:00] VITALS: BP 127/62
[2019-10-17] MEDS: METOCLOPRAMIDE HCL 10 MG/10 ML UDC GT SCH ×5 (00:30→23:17)
[2019-10-17] MEDS: GLUCERNA 1.2 1,000 ML BOTTLE GT SCH ×6 (01:12→20:17)
[2019-10-17] MEDS: LEVOTHYROXINE SODIUM 88 MCG TABLET GT SCH (06:08)
[2019-10-17] MEDS: OMEPRAZOLE 20 MG CAPSULE.DR GT SCH (06:08)
[2019-10-17 07:23] VITALS: BP 127/70
[2019-10-17] MEDS: CARBOXYMETHYLCELLULOSE SODIUM 0.4 ML DROPERETTE EACHEYE SCH (08:35)
[2019-10-17] MEDS: MULTIVIT W/MINERALS 1 TAB TABLET GT SCH (08:35)
[2019-10-17] MEDS: ACIDOPHILUS/BULGARICUS 1 EACH TAB.CHEW GT SCH ×2 (08:35→16:59)
[2019-10-17] MEDS: PROSTAT (PYXIS) 30 ML UDC GT SCH ×3 (08:35→16:59)
[2019-10-17] MEDS: LEVETIRACETAM SOL (5 ML) 100 MG/ML UDC GT SCH ×2 (08:35→20:17)
[2019-10-17] MEDS: ASCORBIC ACID 500 MG TABLET GT SCH (08:36)
[2019-10-17] MEDS: ACETAMINOPHEN 650 MG/20 ML UDC- SA PATIENTS-PAIN ONLY GT SCH ×2 (08:36→20:17)
[2019-10-17] MEDS: CHLORHEXIDINE GLUCONATE 15 ML UDC MM SCH ×2 (08:36→20:17)
[2019-10-17] MEDS: ZINC SULFATE 220 MG CAPSULE GT SCH (08:36)
[2019-10-17] MEDS: COD LIVER OIL/ZINC OXIDE 120 GM TUBE TP SCH ×2 (09:10→20:18)
[2019-10-17] MEDS: NYSTATIN CREAM 15 GM TUBE TP SCH ×2 (09:10→20:18)
[2019-10-17] MEDS: TRIAMCINOLONE ACETONIDE 0.1% CR 15 GM TUBE TP SCH ×2 (09:10→20:18)
[2019-10-17] MEDS: HYDROGEN PEROXIDE 480 ML BOTTLE TP SCH ×2 (09:35→19:52)
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
[2019-10-17 11:48] VITALS: BP 127/87
[2019-10-17 20:11] VITALS: BP 135/91
[2019-10-17 22:00] VITALS: BP 135/91
[2019-10-18] MEDS: GLUCERNA 1.2 1,000 ML BOTTLE GT SCH ×6 (01:00→20:59)
[2019-10-18] MEDS: METOCLOPRAMIDE HCL 10 MG/10 ML UDC GT SCH ×3 (05:17→17:13)
[2019-10-18] MEDS: OMEPRAZOLE 20 MG CAPSULE.DR GT SCH (05:17)
[2019-10-18] MEDS: LEVOTHYROXINE SODIUM 88 MCG TABLET GT SCH (05:17)
[2019-10-18 07:23] VITALS: BP 145/73
[2019-10-18] MEDS: MULTIVIT W/MINERALS 1 TAB TABLET GT SCH (09:25)
[2019-10-18] MEDS: ASCORBIC ACID 500 MG TABLET GT SCH (09:25)
[2019-10-18] MEDS: PROSTAT (PYXIS) 30 ML UDC GT SCH ×3 (09:25→17:13)
[2019-10-18] MEDS: ACIDOPHILUS/BULGARICUS 1 EACH TAB.CHEW GT SCH ×2 (09:25→17:13)
[2019-10-18] MEDS: CARBOXYMETHYLCELLULOSE SODIUM 0.4 ML DROPERETTE EACHEYE SCH (09:25)
[2019-10-18] MEDS: LEVETIRACETAM SOL (5 ML) 100 MG/ML UDC GT SCH ×2 (09:25→20:59)
[2019-10-18] MEDS: ACETAMINOPHEN 650 MG/20 ML UDC- SA PATIENTS-PAIN ONLY GT SCH ×2 (09:25→20:59)
[2019-10-18] MEDS: ZINC SULFATE 220 MG CAPSULE GT SCH (09:25)
[2019-10-18] MEDS: CHLORHEXIDINE GLUCONATE 15 ML UDC MM SCH ×2 (09:26→20:59)
[2019-10-18] MEDS: HYDROGEN PEROXIDE 480 ML BOTTLE TP SCH ×2 (09:33→20:02)
[2019-10-18] MEDS: NYSTATIN CREAM 15 GM TUBE TP SCH ×2 (10:00→21:44)
[2019-10-18] MEDS: COD LIVER OIL/ZINC OXIDE 120 GM TUBE TP SCH ×2 (10:00→21:44)
[2019-10-18] MEDS: TRIAMCINOLONE ACETONIDE 0.1% CR 15 GM TUBE TP SCH ×2 (10:00→21:44)
--- NOTE | 2019-10-18 10:43 | NUR ---
Seen and examined by TERESA Smith, no new order given.
[2019-10-18 12:20] VITALS: BP 128/80
--- NOTE | 2019-10-18 12:47 | NUR ---
Seen and examined by Dr. Martins for optometry consultation, no new order given.
[2019-10-18 18:27] VITALS: BP 146/93
[2019-10-18 20:00] VITALS: BP 142/68
[2019-10-18 22:15] VITALS: BP 130/65
[2019-10-19] MEDS: METOCLOPRAMIDE HCL 10 MG/10 ML UDC GT SCH ×5 (00:05→23:32)
[2019-10-19] MEDS: GLUCERNA 1.2 1,000 ML BOTTLE GT SCH ×6 (01:06→20:14)
[2019-10-19] MEDS: LEVOTHYROXINE SODIUM 88 MCG TABLET GT SCH (05:15)
[2019-10-19] MEDS: OMEPRAZOLE 20 MG CAPSULE.DR GT SCH (05:15)
[2019-10-19 07:53] VITALS: BP 128/76
[2019-10-19] MEDS: HYDROGEN PEROXIDE 480 ML BOTTLE TP SCH ×2 (08:13→20:01)
[2019-10-19] MEDS: ACIDOPHILUS/BULGARICUS 1 EACH TAB.CHEW GT SCH ×2 (09:10→17:45)
[2019-10-19] MEDS: CARBOXYMETHYLCELLULOSE SODIUM 0.4 ML DROPERETTE EACHEYE SCH (09:10)
[2019-10-19] MEDS: PROSTAT (PYXIS) 30 ML UDC GT SCH ×3 (09:10→17:45)
[2019-10-19] MEDS: LEVETIRACETAM SOL (5 ML) 100 MG/ML UDC GT SCH ×2 (09:10→20:15)
[2019-10-19] MEDS: MULTIVIT W/MINERALS 1 TAB TABLET GT SCH (09:10)
[2019-10-19] MEDS: ACETAMINOPHEN 650 MG/20 ML UDC- SA PATIENTS-PAIN ONLY GT SCH ×2 (09:11→20:17)
[2019-10-19] MEDS: NYSTATIN CREAM 15 GM TUBE TP SCH ×2 (09:11→21:37)
[2019-10-19] MEDS: CHLORHEXIDINE GLUCONATE 15 ML UDC MM SCH ×2 (09:11→20:18)
[2019-10-19] MEDS: COD LIVER OIL/ZINC OXIDE 120 GM TUBE TP SCH ×2 (09:11→21:36)
[2019-10-19] MEDS: ASCORBIC ACID 500 MG TABLET GT SCH (09:11)
[2019-10-19] MEDS: ZINC SULFATE 220 MG CAPSULE GT SCH (09:11)
[2019-10-19] MEDS: TRIAMCINOLONE ACETONIDE 0.1% CR 15 GM TUBE TP SCH ×2 (09:11→21:36)
--- NOTE | 2019-10-19 10:42 | NUR ---
Seen and examined by Dr. Ross, made aware that patient was observed by other staff to have a brief spasm in her L arm, he said to observe for now since patient's daughter does not want any labs done.
[2019-10-19 14:43] VITALS: BP 126/74
[2019-10-19 20:20] VITALS: BP 125/80
[2019-10-19 22:00] VITALS: BP 125/80
[2019-10-20] MEDS: GLUCERNA 1.2 1,000 ML BOTTLE GT SCH ×6 (00:58→21:02)
[2019-10-20] MEDS: LEVOTHYROXINE SODIUM 88 MCG TABLET GT SCH (05:15)
[2019-10-20] MEDS: OMEPRAZOLE 20 MG CAPSULE.DR GT SCH (05:15)
[2019-10-20] MEDS: METOCLOPRAMIDE HCL 10 MG/10 ML UDC GT SCH ×4 (05:15→23:52)
[2019-10-20 07:37] VITALS: BP 120/59
[2019-10-20] MEDS: CARBOXYMETHYLCELLULOSE SODIUM 0.4 ML DROPERETTE EACHEYE SCH (08:42)
[2019-10-20] MEDS: MULTIVIT W/MINERALS 1 TAB TABLET GT SCH (08:42)
[2019-10-20] MEDS: ACIDOPHILUS/BULGARICUS 1 EACH TAB.CHEW GT SCH ×2 (08:42→17:26)
[2019-10-20] MEDS: PROSTAT (PYXIS) 30 ML UDC GT SCH ×3 (08:42→17:26)
[2019-10-20] MEDS: LEVETIRACETAM SOL (5 ML) 100 MG/ML UDC GT SCH ×2 (08:42→21:02)
[2019-10-20] MEDS: TRIAMCINOLONE ACETONIDE 0.1% CR 15 GM TUBE TP SCH ×2 (08:43→21:03)
[2019-10-20] MEDS: COD LIVER OIL/ZINC OXIDE 120 GM TUBE TP SCH ×2 (08:43→21:03)
[2019-10-20] MEDS: NYSTATIN CREAM 15 GM TUBE TP SCH ×2 (08:43→21:03)
[2019-10-20] MEDS: ASCORBIC ACID 500 MG TABLET GT SCH (08:43)
[2019-10-20] MEDS: CHLORHEXIDINE GLUCONATE 15 ML UDC MM SCH ×2 (08:43→21:03)
[2019-10-20] MEDS: ACETAMINOPHEN 650 MG/20 ML UDC- SA PATIENTS-PAIN ONLY GT SCH ×2 (08:43→21:03)
[2019-10-20] MEDS: ZINC SULFATE 220 MG CAPSULE GT SCH (08:43)
[2019-10-20] MEDS: HYDROGEN PEROXIDE 480 ML BOTTLE TP SCH ×2 (11:05→21:00)
[2019-10-20 14:21] VITALS: BP 128/71
[2019-10-20 20:13] VITALS: BP 145/80
[2019-10-20 22:07] VITALS: BP 145/80
[2019-10-21] MEDS: GLUCERNA 1.2 1,000 ML BOTTLE GT SCH ×6 (01:00→21:11)
[2019-10-21] MEDS: OMEPRAZOLE 20 MG CAPSULE.DR GT SCH (05:46)
[2019-10-21] MEDS: METOCLOPRAMIDE HCL 10 MG/10 ML UDC GT SCH ×3 (05:46→17:08)
[2019-10-21] MEDS: LEVOTHYROXINE SODIUM 88 MCG TABLET GT SCH (05:46)
[2019-10-21 07:34] VITALS: BP 133/94
[2019-10-21] MEDS: HYDROGEN PEROXIDE 480 ML BOTTLE TP SCH ×2 (08:29→21:00)
[2019-10-21] MEDS: CARBOXYMETHYLCELLULOSE SODIUM 0.4 ML DROPERETTE EACHEYE SCH (08:45)
[2019-10-21] MEDS: MULTIVIT W/MINERALS 1 TAB TABLET GT SCH (08:46)
[2019-10-21] MEDS: TRIAMCINOLONE ACETONIDE 0.1% CR 15 GM TUBE TP SCH ×2 (08:46→21:12)
[2019-10-21] MEDS: CHLORHEXIDINE GLUCONATE 15 ML UDC MM SCH ×2 (08:46→21:11)
[2019-10-21] MEDS: ACIDOPHILUS/BULGARICUS 1 EACH TAB.CHEW GT SCH ×2 (08:46→17:08)
[2019-10-21] MEDS: ZINC SULFATE 220 MG CAPSULE GT SCH (08:46)
[2019-10-21] MEDS: LEVETIRACETAM SOL (5 ML) 100 MG/ML UDC GT SCH ×2 (08:46→21:11)
[2019-10-21] MEDS: PROSTAT (PYXIS) 30 ML UDC GT SCH ×3 (08:46→17:08)
[2019-10-21] MEDS: ASCORBIC ACID 500 MG TABLET GT SCH (08:46)
[2019-10-21] MEDS: ACETAMINOPHEN 650 MG/20 ML UDC- SA PATIENTS-PAIN ONLY GT SCH ×2 (08:46→21:11)
[2019-10-21] MEDS: COD LIVER OIL/ZINC OXIDE 120 GM TUBE TP SCH ×2 (08:47→21:12)
[2019-10-21] MEDS: NYSTATIN CREAM 15 GM TUBE TP SCH ×2 (08:47→21:12)
--- NOTE | 2019-10-21 09:50 | NUR ---
Vick Spicer ([facility]) called to ask for pt's facesheet, H & P, and denial letters from [employer]. She is investigating healthcare fraud. She asked for pt's original admission date, cognitive status, and name of primary doctor. Her e-mail address is [email or web address].
[2019-10-21 12:15] VITALS: BP 130/81
--- NOTE | 2019-10-21 16:55 | NUR ---
RT NOTE RECEIVED ON COOL AEROSOL WITH ORDERED FI02 AND LPM. TRACH TUBE IN PLACE, PATENT, AND SECURED WITH TRACH TIE. AMBU BAG AND BACK UP TRACH BY THE BEDSIDE. NO DISTRESS AT THIS TIME. MONITOR THROUGHOUT SHIFT.
--- NOTE | 2019-10-21 18:42 | NUR ---
Informed Reyna that Covid test is negative.
[2019-10-21 19:35] VITALS: BP 132/73
[2019-10-21 22:06] VITALS: BP 132/73
[2019-10-22] MEDS: GLUCERNA 1.2 1,000 ML BOTTLE GT SCH ×6 (00:07→21:10)
[2019-10-22] MEDS: METOCLOPRAMIDE HCL 10 MG/10 ML UDC GT SCH ×5 (00:07→23:59)
[2019-10-22] MEDS: LEVOTHYROXINE SODIUM 88 MCG TABLET GT SCH (05:50)
[2019-10-22] MEDS: OMEPRAZOLE 20 MG CAPSULE.DR GT SCH (05:50)
[2019-10-22 07:46] VITALS: BP 151/85
[2019-10-22] MEDS: LEVETIRACETAM SOL (5 ML) 100 MG/ML UDC GT SCH ×2 (09:22→21:10)
[2019-10-22] MEDS: ACIDOPHILUS/BULGARICUS 1 EACH TAB.CHEW GT SCH ×2 (09:22→16:48)
[2019-10-22] MEDS: PROSTAT (PYXIS) 30 ML UDC GT SCH ×3 (09:22→17:15)
[2019-10-22] MEDS: CARBOXYMETHYLCELLULOSE SODIUM 0.4 ML DROPERETTE EACHEYE SCH (09:22)
[2019-10-22] MEDS: MULTIVIT W/MINERALS 1 TAB TABLET GT SCH (09:22)
[2019-10-22] MEDS: ZINC SULFATE 220 MG CAPSULE GT SCH (09:23)
[2019-10-22] MEDS: CHLORHEXIDINE GLUCONATE 15 ML UDC MM SCH ×2 (09:23→21:11)
[2019-10-22] MEDS: ACETAMINOPHEN 650 MG/20 ML UDC- SA PATIENTS-PAIN ONLY GT SCH ×2 (09:23→21:11)
[2019-10-22] MEDS: COD LIVER OIL/ZINC OXIDE 120 GM TUBE TP SCH ×2 (09:23→21:11)
[2019-10-22] MEDS: NYSTATIN CREAM 15 GM TUBE TP SCH ×2 (09:23→21:11)
[2019-10-22] MEDS: TRIAMCINOLONE ACETONIDE 0.1% CR 15 GM TUBE TP SCH ×2 (09:23→21:11)
[2019-10-22] MEDS: ASCORBIC ACID 500 MG TABLET GT SCH (09:23)
[2019-10-22] MEDS: HYDROGEN PEROXIDE 480 ML BOTTLE TP SCH ×2 (09:50→21:00)
[2019-10-22 16:56] VITALS: BP 135/80
[2019-10-22 21:14] VITALS: BP 125/71
[2019-10-22 22:04] VITALS: BP 145/80
[2019-10-23] MEDS: GLUCERNA 1.2 1,000 ML BOTTLE GT SCH ×6 (05:00→20:38)
[2019-10-23] MEDS: LEVOTHYROXINE SODIUM 88 MCG TABLET GT SCH (06:09)
[2019-10-23] MEDS: OMEPRAZOLE 20 MG CAPSULE.DR GT SCH (06:09)
[2019-10-23] MEDS: METOCLOPRAMIDE HCL 10 MG/10 ML UDC GT SCH ×3 (06:09→17:12)
[2019-10-23 07:24] VITALS: BP 121/70
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
--- NOTE | 2019-10-23 09:17 | NUR ---
Family Invitation to IDT: This SW emailed the patient's daughter, Reyna Galindo at [email or web address] to invite her to participate in 10/25/2019 12:30 pm IDT meeting via phone conference. SW will await response.
[2019-10-23] MEDS: CARBOXYMETHYLCELLULOSE SODIUM 0.4 ML DROPERETTE EACHEYE SCH (09:48)
[2019-10-23] MEDS: LEVETIRACETAM SOL (5 ML) 100 MG/ML UDC GT SCH ×2 (09:49→20:38)
[2019-10-23] MEDS: COD LIVER OIL/ZINC OXIDE 120 GM TUBE TP SCH ×2 (09:49→21:10)
[2019-10-23] MEDS: ASCORBIC ACID 500 MG TABLET GT SCH (09:49)
[2019-10-23] MEDS: NYSTATIN CREAM 15 GM TUBE TP SCH ×2 (09:49→21:10)
[2019-10-23] MEDS: TRIAMCINOLONE ACETONIDE 0.1% CR 15 GM TUBE TP SCH ×2 (09:49→21:10)
[2019-10-23] MEDS: ACETAMINOPHEN 650 MG/20 ML UDC- SA PATIENTS-PAIN ONLY GT SCH ×2 (09:49→20:38)
[2019-10-23] MEDS: PROSTAT (PYXIS) 30 ML UDC GT SCH ×3 (09:49→17:12)
[2019-10-23] MEDS: ACIDOPHILUS/BULGARICUS 1 EACH TAB.CHEW GT SCH ×2 (09:49→17:12)
[2019-10-23] MEDS: MULTIVIT W/MINERALS 1 TAB TABLET GT SCH (09:49)
[2019-10-23] MEDS: CHLORHEXIDINE GLUCONATE 15 ML UDC MM SCH ×2 (09:49→20:38)
[2019-10-23] MEDS: ZINC SULFATE 220 MG CAPSULE GT SCH (09:49)
[2019-10-23] MEDS: HYDROGEN PEROXIDE 480 ML BOTTLE TP SCH ×2 (09:59→19:50)
[2019-10-23 10:00] VITALS: BP 126/78
--- NOTE | 2019-10-23 15:32 | NUR ---
JOSSE received voicemail from [facility] equipment service lead, Kaelyn Spicer [phone] who stated she is investigating the Hospice Fraud case this SW reported. JOSSE called Divya and addressed her questions. JOSSE informed her that pt. has DPOA, Reyna Galindo [phone]. JOSSE emailed Kaelyn the notice from the pharmacy that states the pt. is allegedly on Hospice Care with [facility] [phone].
--- NOTE | 2019-10-23 18:02 | NUR ---
Notified Dr. Ross that patient has been running low grade temperature 100.6 at this time, 131/80, 98%, [id number], R 18. Urine output carli in color, Per patient's advance directive, no IVF, no ATB and Reyna (daughter) indicated that she does not want any labs. New order to give 1000mg. Tylenol Q 8 hours PRN T 100.5. Orders carried out. Left a message to resident's daughter Reyna of new order and ASNDY.
[2019-10-23] MEDS ORDERED: ACETAMINOPHEN ES 500 MG TABLET GT PRN (19:00)
[2019-10-23] MEDS ORDERED: ACETAMINOPHEN 650 MG/20 ML UDC- SA PATIENTS-FEVER ONLY GT PRN (19:30)
[2019-10-23 20:18] VITALS: BP 126/89
[2019-10-23 22:30] VITALS: BP 128/78
--- NOTE | 2019-10-23 23:46 | NUR ---
18f/10ml rojas catheter changed. return of 100 ml , yellow cloudy urine flowing, connnected to rojas bag. no discomfort noted.
[2019-10-24] MEDS: METOCLOPRAMIDE HCL 10 MG/10 ML UDC GT SCH ×4 (00:13→17:16)
[2019-10-24] MEDS: GLUCERNA 1.2 1,000 ML BOTTLE GT SCH ×6 (00:13→21:06)
--- NOTE | 2019-10-24 01:05 | NUR ---
given prn tylenol 1000 mg via gt d/t temp 101.5 oral. pt calm. no s/s of distress noted. cooling measures in place. all comfort measures rendered. will continue to monitor closely.
--- NOTE | 2019-10-24 02:05 | NUR ---
tylenol effective, temp 99.5. pt asleep. easily arousable. all needs attended. will continue to moniitor closely.
[2019-10-24] MEDS: OMEPRAZOLE 20 MG CAPSULE.DR GT SCH (05:11)
[2019-10-24] MEDS: LEVOTHYROXINE SODIUM 88 MCG TABLET GT SCH (05:12)
--- NOTE | 2019-10-24 06:24 | NUR ---
temp 99.6 urine output cloudy and with strong odor. will continue to monitor.
[2019-10-24 07:52] VITALS: BP 136/79
[2019-10-24] MEDS: HYDROGEN PEROXIDE 480 ML BOTTLE TP SCH ×2 (09:20→19:58)
[2019-10-24] MEDS: PROSTAT (PYXIS) 30 ML UDC GT SCH ×3 (09:57→17:16)
[2019-10-24] MEDS: LEVETIRACETAM SOL (5 ML) 100 MG/ML UDC GT SCH ×2 (09:57→21:06)
[2019-10-24] MEDS: CHLORHEXIDINE GLUCONATE 15 ML UDC MM SCH ×2 (09:57→21:06)
[2019-10-24] MEDS: ZINC SULFATE 220 MG CAPSULE GT SCH (09:57)
[2019-10-24] MEDS: ASCORBIC ACID 500 MG TABLET GT SCH (09:57)
[2019-10-24] MEDS: ACIDOPHILUS/BULGARICUS 1 EACH TAB.CHEW GT SCH ×2 (09:57→17:16)
[2019-10-24] MEDS: MULTIVIT W/MINERALS 1 TAB TABLET GT SCH (09:57)
[2019-10-24] MEDS: CARBOXYMETHYLCELLULOSE SODIUM 0.4 ML DROPERETTE EACHEYE SCH (09:57)
[2019-10-24] MEDS: ACETAMINOPHEN 650 MG/20 ML UDC- SA PATIENTS-PAIN ONLY GT SCH ×2 (09:57→21:06)
[2019-10-24] MEDS: TRIAMCINOLONE ACETONIDE 0.1% CR 15 GM TUBE TP SCH ×2 (09:58→21:06)
[2019-10-24] MEDS: COD LIVER OIL/ZINC OXIDE 120 GM TUBE TP SCH ×2 (09:58→21:06)
[2019-10-24] MEDS: NYSTATIN CREAM 15 GM TUBE TP SCH ×2 (09:58→21:06)
[2019-10-24 13:20] VITALS: BP 139/89
--- NOTE | 2019-10-24 16:45 | NUR ---
Pt's daughter Reyna called. Informed her of pt's vital signs and new order to give Tylenol 1000 mg q 8 hours PRN for T 100.5 and above. She said to feel free to call her for any significant change in condition and if staff has any questions regarding care. T 99.2 F BP 146/89 HR 112-120 R 20 O2 sat 98%. Addendum: 10/24/19 at 1650 by PER MARTEL RN Pt's urine remains cloudy and dark yellowish in color. Gave extra water throughout the day for hydration. Pt's daughter agrees with giving extra hydration.
[2019-10-24 17:28] VITALS: BP 141/89
--- NOTE | 2019-10-24 18:24 | NUR ---
DESEAN Soler said she will debride pt's sacral wound next week. She said pt's tiny tunneling will not heal unless she opens up the wound and make it bigger. Pt's daughter Reyna agreed to it.
[2019-10-24] MEDS ORDERED: SILVER NITRATE APPLICATOR 1 EA BOX TP ONE (18:30)
[2019-10-24] MEDS ORDERED: LIDOCAINE 1%-EPI 1:100,000 20 ML VIAL TP ONE (18:30)
[2019-10-24 20:03] VITALS: BP 132/94
[2019-10-24 22:30] VITALS: BP 130/72
[2019-10-25] MEDS: GLUCERNA 1.2 1,000 ML BOTTLE GT SCH ×6 (00:21→21:05)
[2019-10-25] MEDS: METOCLOPRAMIDE HCL 10 MG/10 ML UDC GT SCH ×4 (00:21→17:18)
[2019-10-25] MEDS: OMEPRAZOLE 20 MG CAPSULE.DR GT SCH (05:33)
[2019-10-25] MEDS: LEVOTHYROXINE SODIUM 88 MCG TABLET GT SCH (05:33)
[2019-10-25 07:39] VITALS: BP 123/75
[2019-10-25] MEDS: CARBOXYMETHYLCELLULOSE SODIUM 0.4 ML DROPERETTE EACHEYE SCH (09:21)
[2019-10-25] MEDS: LEVETIRACETAM SOL (5 ML) 100 MG/ML UDC GT SCH ×2 (09:22→21:05)
[2019-10-25] MEDS: ZINC SULFATE 220 MG CAPSULE GT SCH (09:22)
[2019-10-25] MEDS: MULTIVIT W/MINERALS 1 TAB TABLET GT SCH (09:22)
[2019-10-25] MEDS: ACETAMINOPHEN 650 MG/20 ML UDC- SA PATIENTS-PAIN ONLY GT SCH ×2 (09:22→21:05)
[2019-10-25] MEDS: PROSTAT (PYXIS) 30 ML UDC GT SCH ×3 (09:22→16:32)
[2019-10-25] MEDS: ASCORBIC ACID 500 MG TABLET GT SCH (09:22)
[2019-10-25] MEDS: ACIDOPHILUS/BULGARICUS 1 EACH TAB.CHEW GT SCH ×2 (09:22→16:32)
[2019-10-25] MEDS: CHLORHEXIDINE GLUCONATE 15 ML UDC MM SCH ×2 (09:23→21:05)
[2019-10-25] MEDS: HYDROGEN PEROXIDE 480 ML BOTTLE TP SCH ×2 (09:28→20:12)
[2019-10-25] MEDS: TRIAMCINOLONE ACETONIDE 0.1% CR 15 GM TUBE TP SCH (10:00)
[2019-10-25] MEDS: COD LIVER OIL/ZINC OXIDE 120 GM TUBE TP SCH ×2 (10:00→21:05)
[2019-10-25] MEDS: NYSTATIN CREAM 15 GM TUBE TP SCH (10:00)
--- NOTE | 2019-10-25 11:24 | NUR ---
Seen and examined by Dr. Ross, made aware that patient continually have low grade fever despite giving Tylenol and tachycardic 125-135. According to Dr. Ross the reason for tachycardia is the fever. Patient's responsible green party did not want any lab done. He said to ask the family if they would like to have UA, because patient could have a simple UTI and can be treated. Spoke with Reyna and updated her of patient's condition, when asked if she would like UA done for her mother, she verbalized that she did not want any labs done at all but she is OK to give patient medication such as D-mannose or Ibuprofen in addition to Tylenol. Left a message to Dr. Ross.
[2019-10-25 12:33] VITALS: BP 135/88
--- NOTE | 2019-10-25 14:42 | NUR ---
INTERDISCIPLINARY PLAN OF CARE CONFERENCE was held today. The patients responsible alliance party/daughter, Reyna Galindo [phone] was unable to participate via phone conference. Charge nurse discussed the pt. has been running fevers and pt. is on Tylenol PRN for fever. Per Charge Nurse, the pt.s DPOA, Reyna has declined to have labs, UA done for pt. and all COVID-19 tests were negative on 09/04, 10/08, 10/14. Current orders as well as treatments and medications were reviewed. See other disciplines IDT notes for further details.
--- NOTE | 2019-10-25 15:41 | NUR ---
Dr. Monet was asked during IDT if OK to give Ibuprofen in addition to Tylenol to manage patient's fever, however the record indicates patient has allergy to Ibuprofen. Left a message to Reyna (CINDY) to find out the reaction the patient gets, awaiting for call back.
--- NOTE | 2019-10-25 17:15 | NUR ---
Spoke with Reyna patient's DPOA, she said that patient has allergy to Ibuprofen, she remembered that her mom complain of itchiness/hives. Dr. Ross informed.
[2019-10-25] MEDS: D MANNOSE 500 MG GT SCH (17:50)
--- NOTE | 2019-10-25 18:50 | NUR ---
SOFTWARE SPECIALIST Becca Smith seen and examined resident, made aware that patient is having low grade temperatures for the past few days and tachycardic but patient's daughter refuses to have lab draw done. She said to send COVID-19 test for resident. Order carried out.
--- NOTE | 2019-10-25 19:00 | NUR ---
Seen and examined by TERESA Smith, no new order given.
[2019-10-25 20:12] VITALS: BP 120/95
--- NOTE | 2019-10-25 21:30 | NUR ---
noted temp 100 at beginning of shift. cooling measures rendered. effective. current temp 98.7. pt asleep at this time. calm. no discomfort noted. will continue to monitor closely.
[2019-10-25 22:30] VITALS: BP 128/80
[2019-10-26] MEDS: METOCLOPRAMIDE HCL 10 MG/10 ML UDC GT SCH ×4 (00:15→17:14)
[2019-10-26] MEDS: GLUCERNA 1.2 1,000 ML BOTTLE GT SCH ×6 (00:15→20:46)
[2019-10-26] MEDS: OMEPRAZOLE 20 MG CAPSULE.DR GT SCH (05:06)
[2019-10-26] MEDS: LEVOTHYROXINE SODIUM 88 MCG TABLET GT SCH (05:06)
--- NOTE | 2019-10-26 06:44 | NUR ---
pt sleeping. calm. no s/s of discomfort noted. current temp 98.1. all needs attended.
[2019-10-26 07:48] VITALS: BP 128/84
[2019-10-26] MEDS: HYDROGEN PEROXIDE 480 ML BOTTLE TP SCH ×2 (09:16→21:10)
[2019-10-26] MEDS: MULTIVIT W/MINERALS 1 TAB TABLET GT SCH (09:49)
[2019-10-26] MEDS: D MANNOSE 500 MG GT SCH ×2 (09:49→17:14)
[2019-10-26] MEDS: LEVETIRACETAM SOL (5 ML) 100 MG/ML UDC GT SCH ×2 (09:49→20:46)
[2019-10-26] MEDS: PROSTAT (PYXIS) 30 ML UDC GT SCH ×3 (09:49→17:14)
[2019-10-26] MEDS: ACIDOPHILUS/BULGARICUS 1 EACH TAB.CHEW GT SCH ×2 (09:49→17:14)
[2019-10-26] MEDS: CARBOXYMETHYLCELLULOSE SODIUM 0.4 ML DROPERETTE EACHEYE SCH (09:49)
[2019-10-26] MEDS: ZINC SULFATE 220 MG CAPSULE GT SCH (09:50)
[2019-10-26] MEDS: COD LIVER OIL/ZINC OXIDE 120 GM TUBE TP SCH ×2 (09:50→20:46)
[2019-10-26] MEDS: ASCORBIC ACID 500 MG TABLET GT SCH (09:50)
[2019-10-26] MEDS: ACETAMINOPHEN 650 MG/20 ML UDC- SA PATIENTS-PAIN ONLY GT SCH ×2 (09:50→20:46)
[2019-10-26] MEDS: CHLORHEXIDINE GLUCONATE 15 ML UDC MM SCH ×2 (09:50→20:46)
[2019-10-26 10:00] VITALS: BP 124/79
[2019-10-26 21:02] VITALS: BP 126/77
[2019-10-26 22:00] VITALS: BP 126/77
[2019-10-27] VITALS: BP 125/66
[2019-10-27] MEDS: OMEPRAZOLE 20 MG CAPSULE.DR GT SCH (05:18)
[2019-10-27] MEDS: LEVOTHYROXINE SODIUM 88 MCG TABLET GT SCH (05:18)
[2019-10-27] MEDS: METOCLOPRAMIDE HCL 10 MG/10 ML UDC GT SCH ×4 (05:18→17:36)
[2019-10-27] MEDS: GLUCERNA 1.2 1,000 ML BOTTLE GT SCH ×6 (05:18→21:20)
[2019-10-27 06:31] VITALS: BP 130/72
[2019-10-27] MEDS: ACETAMINOPHEN 650 MG/20 ML UDC- SA PATIENTS-PAIN ONLY GT PRN (06:33)
--- NOTE | 2019-10-27 06:54 | NUR ---
Patient in bed sleeping comfortably. Noted increased heart rate. Administered PRN Acetaminophen per order for discomfort. Comfort measures render. Will monitor and endorse to morning shift.
[2019-10-27 07:43] VITALS: BP 114/66
[2019-10-27] MEDS: HYDROGEN PEROXIDE 480 ML BOTTLE TP SCH ×2 (08:52→21:00)
[2019-10-27] MEDS: ACIDOPHILUS/BULGARICUS 1 EACH TAB.CHEW GT SCH ×2 (09:00→17:36)
[2019-10-27] MEDS: PROSTAT (PYXIS) 30 ML UDC GT SCH ×3 (09:00→17:36)
[2019-10-27] MEDS: LEVETIRACETAM SOL (5 ML) 100 MG/ML UDC GT SCH ×2 (09:00→21:20)
[2019-10-27] MEDS: COD LIVER OIL/ZINC OXIDE 120 GM TUBE TP SCH ×2 (09:00→21:20)
[2019-10-27] MEDS: MULTIVIT W/MINERALS 1 TAB TABLET GT SCH (09:00)
[2019-10-27] MEDS: CHLORHEXIDINE GLUCONATE 15 ML UDC MM SCH ×2 (09:00→21:20)
[2019-10-27] MEDS: CARBOXYMETHYLCELLULOSE SODIUM 0.4 ML DROPERETTE EACHEYE SCH (09:00)
[2019-10-27] MEDS: ASCORBIC ACID 500 MG TABLET GT SCH (09:00)
[2019-10-27] MEDS: D MANNOSE 500 MG GT SCH ×2 (09:00→17:36)
[2019-10-27] MEDS: ZINC SULFATE 220 MG CAPSULE GT SCH (09:00)
[2019-10-27] MEDS: NYSTATIN CREAM 15 GM TUBE TP SCH ×2 (09:00→21:21)
[2019-10-27] MEDS: TRIAMCINOLONE OINT 0.1% 15 GM TUBE TP SCH ×2 (09:00→21:20)
[2019-10-27] MEDS: ACETAMINOPHEN 650 MG/20 ML UDC- SA PATIENTS-PAIN ONLY GT SCH ×2 (12:00→21:20)
[2019-10-27 12:46] VITALS: BP 128/72
--- NOTE | 2019-10-27 18:20 | NUR ---
Resident temp- 100.4F, oral. Cooling measures done. Kept clean, dry and comfortable. Turned and repositioned q 2 hrs and as needed for comfort. GT intact and patent, GT feeding and meds tolerated well. No vomiting noted, aspiration precaution observed. Jamil catheter draining light brown colored urine. Water flushes given as ordered for hydration. Will continue to monitor.
[2019-10-27 20:32] VITALS: BP 110/63
[2019-10-27 22:04] VITALS: BP 110/63
[2019-10-28] MEDS: GLUCERNA 1.2 1,000 ML BOTTLE GT SCH ×3 (00:15→09:52)
[2019-10-28] MEDS: METOCLOPRAMIDE HCL 10 MG/10 ML UDC GT SCH ×2 (00:15→05:53)
[2019-10-28] MEDS: LEVOTHYROXINE SODIUM 88 MCG TABLET GT SCH (05:53)
[2019-10-28] MEDS: OMEPRAZOLE 20 MG CAPSULE.DR GT SCH (05:53)
[2019-10-28 07:38] VITALS: BP 98/63
[2019-10-28] MEDS: HYDROGEN PEROXIDE 480 ML BOTTLE TP SCH (08:15)
[2019-10-28] MEDS: D MANNOSE 500 MG GT SCH (09:52)
[2019-10-28] MEDS: CARBOXYMETHYLCELLULOSE SODIUM 0.4 ML DROPERETTE EACHEYE SCH (09:52)
[2019-10-28] MEDS: LEVETIRACETAM SOL (5 ML) 100 MG/ML UDC GT SCH (09:53)
[2019-10-28] MEDS: PROSTAT (PYXIS) 30 ML UDC GT SCH (09:53)
[2019-10-28] MEDS: MULTIVIT W/MINERALS 1 TAB TABLET GT SCH (09:53)
[2019-10-28] MEDS: ACIDOPHILUS/BULGARICUS 1 EACH TAB.CHEW GT SCH (09:53)
[2019-10-28] MEDS: ACETAMINOPHEN 650 MG/20 ML UDC- SA PATIENTS-PAIN ONLY GT SCH (09:53)
[2019-10-28] MEDS: ZINC SULFATE 220 MG CAPSULE GT SCH (09:54)
[2019-10-28] MEDS: ASCORBIC ACID 500 MG TABLET GT SCH (09:54)
[2019-10-28] MEDS: CHLORHEXIDINE GLUCONATE 15 ML UDC MM SCH (09:54)
[2019-10-28] MEDS: NYSTATIN CREAM 15 GM TUBE TP SCH (10:30)
[2019-10-28] MEDS: COD LIVER OIL/ZINC OXIDE 120 GM TUBE TP SCH (10:30)
[2019-10-28] MEDS: TRIAMCINOLONE OINT 0.1% 15 GM TUBE TP SCH (10:30)
--- NOTE | 2019-10-28 10:31 | NUR ---
Notified Dr Ross that pt's BP 88/52 HR 130 T 100.5 F, pt's breathing is shallow and fast, skin feels cold and clammy. Spoke with pt's daughter Reyna, still no IV fluids, no vent, no transfer to acute hospital. Reyna asked if she can visit. brand development manager and nursing polymerization supervisor approved visit as long as only 1 person visits and Covid precautions are observed. Instructed Reyna to go through the screening for Covid in the lobby, wash her hands and wear a mask when she gets to the hospital. Notified Dr Ross of conversation with Reyna.
--- NOTE | 2019-10-28 11:40 | NUR ---
Pt's daughter at bedside. She washed her hands, applied hand sports management professor, has a face mask, observing physical distancing. She asked if pt can be given Morphine for agonal breathing. Pt breathing 54 cpm at this time. Pt's face twitching and eyes moving in different directions. Dr Ross ordered to give the Roxanol SL equivalent of Morphine 5 mg q 3 hours PRN. Spoke with [facility] pharmacist Hoang, he said the equivalent is Roxanol 0.25 mL (5 mg). Dr Ross also ordered Ativan 2 mg IV x 1 for seizure. Notified daughter Reyna at bedside.
--- NOTE | 2019-10-28 11:45 | NUR ---
Family Visitation: Upon the patients daughter/ DPOAReyna Josie [phone] visiting as patient is declining. SW provided emotional support for Reyna. SW engaged discussion with Reyna regarding other family members also visiting patient. Reyna stated she does not want other family members visiting the patient. [facility] will comply the patient's Reyna WHITEs decision.
--- NOTE | 2019-10-28 11:48 | NUR ---
Called [facility] and spoke with AK to ask if Roxanol and Ativan are covered. She said they will call back.
--- NOTE | 2019-10-28 11:50 | NUR ---
Resources: JOSSE provided the patient's DPOA, Reyna Galindo [phone] with [facility] Resources including: [facility] [[address] [facility] [address]; [phone]]; [facility] [[address] [facility] [address]; [phone]]; [facility] [[address] [facility] [address]; [phone]]. JOSSE provided Reyna with Bereavement/ Grief Support Groups including: [facility] [[address] [place] [address]]; [facility] [[address] [address]]; [facility] [[address] [facility] [address]]. Reyna stated she appreciated the resources and stated the family already has arrangements for the patient. Noted.
[2019-10-28] MEDS ORDERED: LORAZEPAM INJ 2 MG/ML VIAL IVP ONE (12:00)
--- NOTE | 2019-10-28 12:08 | NUR ---
Pt's BP 78/46 HR 130s, breathing 50s cpm. Notified Dr Ross. Also notified him that Ativan 2 mg is being given at this time. Daughter at bedside and aware of new orders. Notified Dr Ross that Roxanol is not available at this time (per [facility] pharmacist Kiki) and waiting for [facility] to provide it.
--- NOTE | 2019-10-28 12:55 | NUR ---
Pt's BP 77/49 HR 127, breathing is fast and shallow. Reyna at bedside.
--- NOTE | 2019-10-28 13:12 | NUR ---
Reyna asking for Morphine IV since Roxanol not available yet. Pt's BP 63/[address] Ross. He ordered Morphine 1 mg IV q [address] Monet that pt's O2 sat fluctuating and RT placed pt on FiO2 40%. O2 sat improved to 93-94%. Addendum: 10/28/19 at 1316 by PER MARTEL RN Pt's RR in the 50s.
--- NOTE | 2019-10-28 13:15 | NUR ---
Per Mechanical Technician's request, this SW called the patients daughter, Marielena Jeong [phone] and informed her that [facility] cannot disclose medical information to her. SW informed her that [facility] is updating the patient's DPOA, Reyna Galindo [phone] regarding the patient's medical condition. Marielena Jeong presented distressed, and began crying. SW provided emotional support for Jonathan. SW use empathetic listening, validation and mirroring. SW will be available to support the patient and their family as needed.
[2019-10-28] MEDS ORDERED: MORPHINE SULFATE SOLN CONCENTRATED 20 MG/ML SL PRN (14:00)
--- NOTE | 2019-10-28 14:05 | NUR ---
Received order to DC Morphine sulfate IV and give Roxanol 5 mg SL q 3 hours PRN. [facility] pharmacy provided Roxanol.
--- NOTE | 2019-10-28 15:32 | NUR ---
Called pt's daughter Reyna to inform her that pt is dying. Pt having agonal breathing, color is purplish, skin mottling.
--- NOTE | 2019-10-28 15:47 | NUR ---
Pt has no more pulse, no BP, not breathing, color purplish, pupils fixed. Dr Ross ordered to do EKG. EKG done and showed asystole. Dr Ross pronounced pt at 1547. DC'd all medications and treatments. Pt's daughter Reyna aware. She said she told her sisters that pt is dying and that she is now allowing them to visit. Pt's daughter refused to let her sisters visit earlier today because she feels that they will pressure her to change DNR status.
--- NOTE | 2019-10-28 15:53 | NUR ---
Called [facility], spoke with Colette. She said to release pt's body to mortuary of family's choice. Referral ID # [id number].
--- NOTE | 2019-10-28 16:03 | NUR ---
Pt's daughter Reyna said is calling [facility]. Informed her that pt's remains can only be kept in unit for 2 hours.
--- NOTE | 2019-10-28 19:02 | NUR ---
Pt's daughter Reyna said to give pt's belongings to her son. Belongings given to her son Matthew Deluna.
[2020-03-29] MEDS ORDERED: TUBERCULIN,PURIF.PROT.DERIV. 5 TU/0.1 ML VIAL ID SCH (09:00)
== END 2019-10-28 19:20 | disposition expired | DRG 981 ==
LOC: SA
PROVIDERS: ADMIT Internal Medicine; ATTEND Internal Medicine
PROC: 0KBP0ZZ Excision of Left Hip Muscle, Open Approach (ICD-10-PCS; principal; 2019-04-24)
PROC: 0KBN0ZZ Excision of Right Hip Muscle, Open Approach (ICD-10-PCS; 2019-04-24)
PROC: 0KBP0ZZ Excision of Left Hip Muscle, Open Approach (ICD-10-PCS; 2019-04-29)
PROC: 0KBN0ZZ Excision of Right Hip Muscle, Open Approach (ICD-10-PCS; 2019-04-29)
PROC: 0KBP0ZZ Excision of Left Hip Muscle, Open Approach (ICD-10-PCS; 2019-05-06)
PROC: 0KBN0ZZ Excision of Right Hip Muscle, Open Approach (ICD-10-PCS; 2019-05-06)
PROC: 0KBP0ZZ Excision of Left Hip Muscle, Open Approach (ICD-10-PCS; 2019-05-13)
PROC: 0KBN0ZZ Excision of Right Hip Muscle, Open Approach (ICD-10-PCS; 2019-05-13)
PROC: 0KBP0ZZ Excision of Left Hip Muscle, Open Approach (ICD-10-PCS; 2019-05-20)
PROC: 0KBN0ZZ Excision of Right Hip Muscle, Open Approach (ICD-10-PCS; 2019-05-20)
PROC: 0KBP0ZZ Excision of Left Hip Muscle, Open Approach (ICD-10-PCS; 2019-05-27)
PROC: 0KBN0ZZ Excision of Right Hip Muscle, Open Approach (ICD-10-PCS; 2019-05-27)
PROC: 0KBP0ZZ Excision of Left Hip Muscle, Open Approach (ICD-10-PCS; 2019-06-03)
PROC: 0KBN0ZZ Excision of Right Hip Muscle, Open Approach (ICD-10-PCS; 2019-06-03)
PROC: 0KBP0ZZ Excision of Left Hip Muscle, Open Approach (ICD-10-PCS; 2019-06-10)
PROC: 0KBN0ZZ Excision of Right Hip Muscle, Open Approach (ICD-10-PCS; 2019-06-10)
PROC: 0KBP0ZZ Excision of Left Hip Muscle, Open Approach (ICD-10-PCS; 2019-06-24)
PROC: 0KBN0ZZ Excision of Right Hip Muscle, Open Approach (ICD-10-PCS; 2019-06-24)
PROC: 0KBP0ZZ Excision of Left Hip Muscle, Open Approach (ICD-10-PCS; 2019-09-27)
PROC: 0KBN0ZZ Excision of Right Hip Muscle, Open Approach (ICD-10-PCS; 2019-09-27)
PROC: 0KBP0ZZ Excision of Left Hip Muscle, Open Approach (ICD-10-PCS; 2019-10-03)
PROC: 0KBN0ZZ Excision of Right Hip Muscle, Open Approach (ICD-10-PCS; 2019-10-03)
PROC: 0KBP0ZZ Excision of Left Hip Muscle, Open Approach (ICD-10-PCS; 2019-10-10)
PROC: 0KBN0ZZ Excision of Right Hip Muscle, Open Approach (ICD-10-PCS; 2019-10-10)
PROC: 0KBP0ZZ Excision of Left Hip Muscle, Open Approach (ICD-10-PCS; 2019-10-24)
PROC: 0KBN0ZZ Excision of Right Hip Muscle, Open Approach (ICD-10-PCS; 2019-10-24)
DX: J96.11 Chronic respiratory failure with hypoxia (principal); L89.154 Pressure ulcer of sacral region, stage 4; G93.41 Metabolic encephalopathy; R53.2 Functional quadriplegia; N17.0 Acute kidney failure with tubular necrosis; G93.1 Anoxic brain damage, not elsewhere classified; E44.0 Moderate protein-calorie malnutrition; Z99.11 Dependence on respirator [ventilator] status; E11.9 Type 2 diabetes mellitus without complications; G40.909 Epilepsy, unspecified, not intractable, without status epilepticus; I10 Essential (primary) hypertension; E88.09 Other disorders of plasma-protein metabolism, not elsewhere classified; F03.90 Unspecified dementia, unspecified severity, without behavioral disturbance, psychotic disturbance, mood disturbance, and anxiety; Z86.73 Personal history of transient ischemic attack (TIA), and cerebral infarction without residual deficits; Z93.0 Tracheostomy status; Z93.1 Gastrostomy status; D69.2 Other nonthrombocytopenic purpura; B35.8 Other dermatophytoses; Z68.25 Body mass index [BMI] 25.0-25.9, adult; R13.10 Dysphagia, unspecified; Z74.01 Bed confinement status; I68.0 Cerebral amyloid angiopathy; L60.3 Nail dystrophy; Z51.5 Encounter for palliative care; Z66 Do not resuscitate; Z79.51 Long term (current) use of inhaled steroids; Z79.899 Other long term (current) drug therapy; L30.9 Dermatitis, unspecified; Z88.6 Allergy status to analgesic agent; Z91.041 Radiographic dye allergy status; Z91.013 Allergy to seafood; Z88.8 Allergy status to other drugs, medicaments and biological substances; Z91.048 Other nonmedicinal substance allergy status; S90.422A Blister (nonthermal), left great toe, initial encounter; X58.XXXA Exposure to other specified factors, initial encounter; Y92.9 Unspecified place or not applicable; Z74.09 Other reduced mobility; B35.9 Dermatophytosis, unspecified
CPT/HCPCS: 31720; 36415; 71045-TC; 74018; 80053-TC; 80076-TC; 81000-TC; 83735-TC; 84100-TC; 84443-TC; 85025-TC; 87086-TC; 93970-TC; 94003-TC; 94640-TC; 94760-TC; 94762-TC; 94799-TC; A4217; A4623; A6253; A7526; J1953; J2060; J3490; J8597; Q9963; U0003-CS